=== PATIENT | male | born 1955 | race Caucasian/White ===

== ENCOUNTER 2022-08-20 09:52 | Outpatient (OUT) | payer MEDICARE, SELFPAY ==
[2022-08-20 11:05] LABS: Anion Gap 9.6; BUN Creatinine Ratio 11.5; Calcium 8.9 mg/dL (8.5-10.1); Chloride 102 mmol/L (98-107); Estimated GFR (African America >60 (>=60); Estimated GFR (Non-African Ame >60 (>=60); Glucose 197 mg/dL (74-106); Potassium 4.6 mmol/L (3.5-5.1); Sodium 137 mmol/L (136-145)
== END 2022-08-20 09:53 ==
LOC: LAB 10:02
PROVIDERS: PCP Internal Medicine; Visit Provider Internal Medicine Cardiovascular Disease
DX: I10 Essential (primary) hypertension (principal); E11.9 Type 2 diabetes mellitus without complications; I25.10 Atherosclerotic heart disease of native coronary artery without angina pectoris; R06.02 Shortness of breath; I25.5 Ischemic cardiomyopathy
CPT/HCPCS: 36415; 80048

== ENCOUNTER 2022-08-24 17:57 | Outpatient (RCR) | payer MEDICARE, SELFPAY | END 2022-09-18 23:59 | disposition home or self-care (01) | LOC: MM 17:57 | PROVIDERS: PCP Internal Medicine; Visit Provider Internal Medicine | DX: Z51.81 Encounter for therapeutic drug level monitoring (principal); Z79.01 Long term (current) use of anticoagulants; I48.91 Unspecified atrial fibrillation | CPT/HCPCS: 85610; G0463 ==

== ENCOUNTER 2022-09-23 15:23 | Outpatient (RCR) | payer MEDICARE, SELFPAY | END 2022-10-19 16:47 | disposition home or self-care (01) | LOC: MM 15:23 | PROVIDERS: PCP Internal Medicine; Visit Provider Internal Medicine | DX: Z51.81 Encounter for therapeutic drug level monitoring (principal); Z79.01 Long term (current) use of anticoagulants; I48.91 Unspecified atrial fibrillation | CPT/HCPCS: 85610; G0463 ==

== ENCOUNTER 2022-10-20 09:00 | Outpatient (RCR) | payer MEDICARE, SELFPAY | END 2022-11-19 17:19 | disposition home or self-care (01) | LOC: MM 09:00 | PROVIDERS: Visit Provider Internal Medicine | DX: Z51.81 Encounter for therapeutic drug level monitoring (principal); Z79.01 Long term (current) use of anticoagulants; I48.91 Unspecified atrial fibrillation ==

== ENCOUNTER 2022-11-20 08:27 | Outpatient (RCR) | payer MEDICARE, SELFPAY | END 2022-12-18 16:35 | disposition home or self-care (01) | LOC: MM 08:27 | PROVIDERS: Visit Provider Internal Medicine | DX: Z51.81 Encounter for therapeutic drug level monitoring (principal); Z79.01 Long term (current) use of anticoagulants; I48.91 Unspecified atrial fibrillation ==

== ENCOUNTER 2022-12-21 01:31 | Outpatient (RCR) | payer MEDICARE, SELFPAY | END 2023-01-19 17:13 | disposition home or self-care (01) | LOC: MM 01:31 | PROVIDERS: Visit Provider Internal Medicine | DX: Z51.81 Encounter for therapeutic drug level monitoring (principal); Z79.01 Long term (current) use of anticoagulants; I48.91 Unspecified atrial fibrillation | CPT/HCPCS: 85610; G0463 ==

== ENCOUNTER 2023-01-05 11:45 | Outpatient (OUT) | payer MEDICARE, SELFPAY ==
[2023-01-05 15:53] LABS: Estimated Average Glucose 283 mg/dL; Glycohemoglobin A1C 11.5 % (4.5-6.2)
== END 2023-01-05 11:46 | disposition home or self-care (01) ==
PROVIDERS: PCP Internal Medicine; Visit Provider Internal Medicine
DX: E11.65 Type 2 diabetes mellitus with hyperglycemia (principal)
CPT/HCPCS: 36415; 83036

== ENCOUNTER 2023-01-20 00:33 | Outpatient (RCR) | payer MEDICARE, SELFPAY | END 2023-02-18 16:35 | disposition home or self-care (01) | LOC: MM 00:33 | PROVIDERS: PCP Internal Medicine; Visit Provider Internal Medicine | DX: Z51.81 Encounter for therapeutic drug level monitoring (principal); Z79.01 Long term (current) use of anticoagulants; I48.91 Unspecified atrial fibrillation | CPT/HCPCS: 85610; G0463 ==

== ENCOUNTER 2023-02-19 09:02 | Outpatient (RCR) | payer MEDICARE, SELFPAY | END 2023-03-19 15:37 | disposition home or self-care (01) | LOC: MM 09:02 | PROVIDERS: PCP Internal Medicine; Visit Provider Internal Medicine | DX: Z51.81 Encounter for therapeutic drug level monitoring (principal); Z79.01 Long term (current) use of anticoagulants; I48.91 Unspecified atrial fibrillation | CPT/HCPCS: 85610; G0463 ==

== ENCOUNTER 2023-03-10 13:48 | Outpatient (OUT) | payer MEDICARE, SELFPAY ==
[2023-03-10 14:25] LABS: Anion Gap 11.6; BUN Creatinine Ratio 12.6; Calcium 9.2 mg/dL (8.5-10.1); Carbon Dioxide 27.8 mmol/L (21.0-32.0); Chloride 101 mmol/L (98-107); Estimated GFR (African America >60 (>=60); Estimated GFR (Non-African Ame >60 (>=60); Glucose 187 mg/dL (74-106); Potassium 4.4 mmol/L (3.5-5.1); Sodium 136 mmol/L (136-145)
== END 2023-03-10 13:49 | disposition home or self-care (01) ==
LOC: LAB 13:49
PROVIDERS: PCP Internal Medicine; Visit Provider Internal Medicine Cardiovascular Disease
DX: I25.10 Atherosclerotic heart disease of native coronary artery without angina pectoris (principal); I48.0 Paroxysmal atrial fibrillation; I10 Essential (primary) hypertension; I25.5 Ischemic cardiomyopathy
CPT/HCPCS: 36415; 80048; 83880

== ENCOUNTER 2023-03-22 00:45 | Outpatient (RCR) | payer MEDICARE, SELFPAY | END 2023-04-21 15:57 | disposition home or self-care (01) | LOC: MM 00:45 | PROVIDERS: PCP Internal Medicine; Visit Provider Internal Medicine | DX: Z51.81 Encounter for therapeutic drug level monitoring (principal); Z79.01 Long term (current) use of anticoagulants; I48.91 Unspecified atrial fibrillation | CPT/HCPCS: 85610; G0463 ==

== ENCOUNTER 2023-04-22 01:31 | Outpatient (RCR) | payer MEDICARE, SELFPAY | END 2023-05-20 17:10 | disposition home or self-care (01) | LOC: MM 01:31 | PROVIDERS: PCP Internal Medicine; Visit Provider Internal Medicine | DX: Z51.81 Encounter for therapeutic drug level monitoring (principal); Z79.01 Long term (current) use of anticoagulants; I48.91 Unspecified atrial fibrillation | CPT/HCPCS: 85610; G0463 ==

== ENCOUNTER 2023-05-21 01:05 | Outpatient (RCR) | payer MEDICARE, SELFPAY | END 2023-06-18 13:02 | disposition home or self-care (01) | LOC: MM 01:05 | PROVIDERS: PCP Internal Medicine; Visit Provider Internal Medicine | DX: Z51.81 Encounter for therapeutic drug level monitoring (principal); Z79.01 Long term (current) use of anticoagulants; I48.91 Unspecified atrial fibrillation | CPT/HCPCS: 85610; G0463 ==

== ENCOUNTER 2023-06-21 03:14 | Outpatient (RCR) | payer MEDICARE, SELFPAY | END 2023-07-20 17:48 | disposition home or self-care (01) | LOC: MM 03:14 | PROVIDERS: PCP Internal Medicine; Visit Provider Internal Medicine | DX: Z51.81 Encounter for therapeutic drug level monitoring (principal); Z79.01 Long term (current) use of anticoagulants | CPT/HCPCS: 85610; G0463 ==

== ENCOUNTER 2023-07-21 00:15 | Outpatient (RCR) | payer MEDICARE, SELFPAY | END 2023-08-20 11:10 | disposition home or self-care (01) | LOC: MM 00:15 | PROVIDERS: PCP Internal Medicine; Visit Provider Internal Medicine | DX: Z51.81 Encounter for therapeutic drug level monitoring (principal); Z79.01 Long term (current) use of anticoagulants; I48.91 Unspecified atrial fibrillation ==

== ENCOUNTER 2023-08-02 10:53 | Outpatient (OUT) | payer MEDICARE, SELFPAY ==
[2023-08-02 11:13] LABS: Basophils Absolute Auto 0.1 10^3/uL (0.0-0.1); Basophils Percent Auto 0.8 % (0.2-2.0); Eosinophils Absolute Auto 0.5 10^3/uL (0.0-0.7); Eosinophils Percent Auto 6.2 % (0.9-7.0); Hematocrit 37.2 % (42.0-54.0); Hemoglobin 11.3 g/dL (14.0-18.0); Immature Granulocytes Abs Auto 0.02 10^3/uL (0.00-0.03); Immature Granulocytes Pct Auto 0.2 % (0.0-0.5); Lymphocytes Percent Auto 36.4 % (20.5-60.0); Mean Corpuscular HGB Conc 30.4 g/dL (29.9-35.2); Mean Corpuscular Hemoglobin 24.5 pg (25.9-34.0); Mean Corpuscular Volume 80.5 fL (80.0-94.0); Mean Platelet Volume 11.3 fL (9.5-13.5); Monocytes Absolute Auto 0.9 10^3/uL (0.3-0.8); Monocytes Percent Auto 10.3 % (1.7-12.0); Neutrophils Absolute Auto 3.8 10^3/uL (1.4-6.5); Neutrophils Percent Auto 46.1 % (43.0-75.0); Platelet Count 245 10^3/uL (150-450); Red Blood Count 4.62 10^6/uL (4.70-6.10); Red Cell Distribution Width 18.5 % (11.0-15.0); White Blood Count 8.2 10^3/uL (4.0-11.0)
[2023-08-02 12:15] LABS: Alanine Aminotransferase 53 U/L (16-63); Albumin Globulin Ratio 0.9; Albumin Level 3.4 g/dL (3.4-5.0); Alkaline Phosphatase 99 U/L (46-116); Anion Gap 11.2; Aspartate Amino Transferase 26 U/L (15-37); BUN Creatinine Ratio 18.5; Bilirubin Total 0.5 mg/dL (0.2-1.0); Chloride 104 mmol/L (98-107); Chol HDL Ratio 2.9; Cholesterol 85 mg/dL (<=200); Estimated GFR (African America >60 (>=60); Estimated GFR (Non-African Ame >60 (>=60); Glucose 199 mg/dL (74-106); HDL Cholesterol 29 mg/dL (40-60); Potassium 4.2 mmol/L (3.5-5.1); Sodium 138 mmol/L (136-145); Total Protein 7.4 g/dL (6.4-8.2); Triglycerides 126 mg/dL (<=150); VLDL CHOLESTEROL 25.2 mg/dL
[2023-08-02 12:29] LABS: Microalbumin Urine Random 15.5 mg/dL (<=30.0)
[2023-08-02 12:58] LABS: Prostate Specific Antigen Scrn 0.49 ng/mL (<=4.00)
[2023-08-02 15:45] LABS: Estimated Average Glucose 258 mg/dL; Glycohemoglobin A1C 10.6 % (4.5-6.2)
== END 2023-08-02 10:54 | disposition home or self-care (01) ==
LOC: LAB 10:54
PROVIDERS: PCP Internal Medicine; Visit Provider Internal Medicine
DX: E78.00 Pure hypercholesterolemia, unspecified (principal); I25.10 Atherosclerotic heart disease of native coronary artery without angina pectoris; I10 Essential (primary) hypertension; E11.65 Type 2 diabetes mellitus with hyperglycemia; Z12.5 Encounter for screening for malignant neoplasm of prostate; Z79.4 Long term (current) use of insulin
CPT/HCPCS: 36415; 80053; 80061; 82043; 83036; 85025; G0103

== ENCOUNTER 2023-08-23 00:15 | Outpatient (RCR) | payer MEDICARE, SELFPAY | END 2023-09-17 10:41 | disposition home or self-care (01) | LOC: MM 00:15 | PROVIDERS: PCP Internal Medicine; Visit Provider Internal Medicine | DX: Z51.81 Encounter for therapeutic drug level monitoring (principal); Z79.01 Long term (current) use of anticoagulants | CPT/HCPCS: 85610; G0463 ==

== ENCOUNTER 2023-09-03 13:25 | Outpatient (OUT) | payer OTHER, SELFPAY ==
[2023-09-06 14:08] LABS: Levetiracetam (Keppra), S 13.1 ug/mL (10.0-40.0)
== END 2023-09-03 13:26 | disposition home or self-care (01) ==
PROVIDERS: PCP Internal Medicine
DX: G40.909 Epilepsy, unspecified, not intractable, without status epilepticus (principal)
CPT/HCPCS: 36415; 80177

== ENCOUNTER 2023-09-15 09:23 | Outpatient (OUT) | payer OTHER, SELFPAY ==
[2023-09-15 12:13] LABS: Anion Gap 13.2; Calcium 8.3 mg/dL (8.5-10.1); Carbon Dioxide 25.2 mmol/L (21.0-32.0); Chloride 104 mmol/L (98-107); Estimated GFR (African America >60 (>=60); Estimated GFR (Non-African Ame >60 (>=60); Glucose 240 mg/dL (74-106); Potassium 4.4 mmol/L (3.5-5.1); Sodium 138 mmol/L (136-145)
== END 2023-09-15 09:24 | disposition home or self-care (01) ==
LOC: LAB 09:24
PROVIDERS: PCP Internal Medicine; Visit Provider Nurse Practitioner
DX: I25.5 Ischemic cardiomyopathy (principal)
CPT/HCPCS: 36415; 80048

== ENCOUNTER 2023-09-20 00:36 | Outpatient (RCR) | payer MEDICARE, SELFPAY | END 2023-10-20 09:37 | disposition home or self-care (01) | LOC: MM 00:36 | PROVIDERS: PCP Internal Medicine; Visit Provider Internal Medicine | DX: Z51.81 Encounter for therapeutic drug level monitoring (principal); Z79.01 Long term (current) use of anticoagulants; I48.91 Unspecified atrial fibrillation | CPT/HCPCS: 85610; G0463 ==

== ENCOUNTER 2023-10-08 09:05 | Outpatient (OUT) | payer MEDICARE, SELFPAY ==
--- NOTE | 2023-10-08 09:22 | XR_ITS ---
The [address] [address] Patient Name: LESLEY QUINTERO MRN: [id number] date: 1955 Sex: M Assigned Patient Location: LAB Current Patient Location: LAB Accession/Order Number: [id number] Exam Date: 10/08/2023 09:25 Report Date: 10/08/2023 13:53 At the request of: CHRIS HUMMEL Procedure: XR chest 2V PROCEDURE: XR chest 2V DATE: 10/08/2023 8:25 AM CDT COMPARISONS: 11/14/2021 CLINICAL INDICATION: 68 years Male Paroxysmal Atrial Fibrillation I48.0 FINDINGS: The heart and mediastinum are stable. Poststernotomy changes are again identified. Electronic cardiac device appears to be in good position in this projection. There is mild to moderate slightly coarse increased interstitial markings throughout all lung byrne better seen than on previous exam. Some of this could represent some interstitial fluid. Some of it likely represents chronic lung changes also seen previously. Some of this could represent some increasing atelectasis as the lungs are slightly hypoaerated today. Diffuse inflammatory infiltrates are considered less likely. There is no evidence of pleural effusion or pneumothorax. XR/XR chest 2V IMPRESSION: Chest is similar to previous exam. The diffuse slightly coarse increased interstitial markings are somewhat more prominent today as described above. Possible etiologies are noted above. Electronically authenticated by: JANNA BEYER Date: 10/08/2023 13:53
--- OUTSIDE RECORDS SUMMARY | 2023-10-08 09:28 | XMS_ITS | CCD ---
Author Organization [facility] Care Team Providers Care Overweaver Name Role Phone Lee Segovia Unavailable Unavailable Unavailable DO Lee Segovia Primary Care Provider DO Lesley Cooper Attending Provider DO Lee Segovia Primary Care Provider [phone] DO Lesley Cooper Attending Provider DO Franck Posey Attending Provider [phone] Lee Segovia Unavailable DR LEE SEGOVIA Primary Care Unavailable BALL, DR HOWARD Consulting Unavailable BALL, DR HOWARD Admitting Unavailable BALL, DR HOWARD Attending Unavailable BALL, DR HOWARD Primary Care Unavailable FAWWAMayra, SHAIKH Shi Attending Unavailable FAWWAD, ZARCO H Admitting Unavailable BALL, DR HOWARD Primary Care Unavailable BALL, DR HOWARD Consulting Unavailable BALL, DR HOWARD Attending Unavailable BALL, DR HOWARD Admitting Unavailable ZIEBER, DR GINO Lopez Consulting Unavailable SOFÍA, YANA Consulting Unavailable SOFÍAYANA Attending Unavailable BALL, DR HOWARD Primary Care Unavailable SOFÍA, YANA Admitting Unavailable BALL, DR HOWARD Primary Care Unavailable BALL, DR HOWARD Consulting Unavailable BALL, DR HOWARD Admitting Unavailable BALL, DR HOWARD Attending Unavailable BALL, DR HOWARD Primary Care Unavailable HAY ., DR HUDSON Consulting Unavailable HAY ., DR HUDSON Attending Unavailable HAY ., DR HUDSON Admitting Unavailable BENEDICT, DR CHRISTIAN Consulting Unavailable BENEDICT, DR CHRISTIAN Attending Unavailable BALL, DR HOWARD Primary Care Unavailable BENEDICT, DR CHRISTIAN Admitting Unavailable FAWWAD, ZARCO H Attending Unavailable BALL, DR HOWARD Primary Care Unavailable FAWMARVD, ZARCO H Admitting Unavailable FAWWAD, ZARCO H Admitting Unavailable BALL, DR HOWARD Primary Care Unavailable FAWWAD, ZARCO H Attending Unavailable FAWWAD, ZARCO H Admitting Unavailable BALL, DR HOWARD Primary Care Unavailable FAWWAD, ZARCO H Attending Unavailable FAWWAD, ZARCO H Admitting Unavailable BALL, DR HOWARD Primary Care Unavailable FAWWAD, ZARCO H Attending Unavailable FAWWAD, ZARCO H Admitting Unavailable BALL, DR HOWARD Primary Care Unavailable FAWWAD, ZARCO H Attending Unavailable FAWWAD, ZARCO H Admitting Unavailable FAWWAD, ZARCO H Attending Unavailable BALL, DR HOWARD Primary Care Unavailable FAWWAD, ZARCO H Admitting Unavailable BALL, DR HOWARD Primary Care Unavailable FAWWAD, ZARCO H Attending Unavailable FAWWAD, ZARCO H Admitting Unavailable BALL, DR HOWARD Primary Care Unavailable FAWWAD, ZARCO H Attending Unavailable BALL, DR HOWARD Primary Care Unavailable BALL, DR HOWARD Admitting Unavailable BALL, DR HOWARD Consulting Unavailable BALL, DR HOWARD Attending Unavailable BALL, DR HOWARD Referring Unavailable FAWWAD, ZARCO H Attending Unavailable BALL, DR HOWARD Primary Care Unavailable FAWWAD, ZARCO H Admitting Unavailable BALL, DR HOWARD Consulting Unavailable BALL, DR HOWARD Admitting Unavailable BALL, DR HOWARD Primary Care Unavailable BALL, DR HOWARD Attending Unavailable Ball, DO Howard Primary Care Provider DO Franck Posey Attending Provider DO Lesley Cooper Attending Provider [phone] Delroy Mcleod Unavailable JESUS POSEY Attending Unavailable Juliette, Dr. Lee Jones Primary Care Rigo Segovia, DO Howard Primary Care Provider DO Franck Posey Attending Provider Juliette, DO Howard Primary Care Provider DO Lesley Cooper Attending Provider [phone] Marcus, Ms. Ivania Calabrese Attending Rigo Velazquez, Ms. Ivania Calabrese Referring Rigo Segovia, Dr. Lee Jones Primary Care Carmen Sharma Attending Poppy Velazquez, Ms. Ivania Calabrese Referring Rigo Segovia, Dr. Lee Jones Primary Care Rigo Segovia, Dr. Lee Jones Primary Care Rigo Posey, Jesus Attending Unavailable Juliette, Dr. Lee Jones Primary Care Rigo Segovia, Dr. Lee Jones Primary Care Rigo Posey, Jesus Attending Unavailable Kalpesh, Jesus Referring Unavailable Juliette, Dr. Lee Jones Primary [facility] Rigo Velazquez, Ms. Ivania Calabrese Attending Rigo Velazquez, MsJohn Paul Calabrese Referring Rigo Segovia, Dr. Lee Jones Primary [facility] Rigo Segovia DO, Lee Jones Primary Care Provider Lee Segovia DO Unavailable [phone] Lee Segovia [facility] Care Unavailable Kalpesh, Franck Lr Admitting Unavailable Kalpesh, Franck Lr Attending Unavailable Lee Segovia [facility] Care Unavailable Lyster, Lesley Admitting Unavailable Lyster, Lesley Attending Unavailable Lyster, Lesley Admitting Unavailable Lyster, Lesley Attending Unavailable Lee Segovia [facility] Care Unavailable Lee Segovia [facility] Care Unavailable Kalpesh, Franck Lr Admitting Unavailable Kalpesh, Franck Lr Attending Unavailable Lee Segovia [facility] Care Unavailable Kalpesh, Franck Lr Admitting Unavailable Kalpesh, Franck Lr Attending Unavailable Kalpesh, Franck Lr Admitting Unavailable Kalpesh, Franck Lr Attending Unavailable Lee Segovia [facility] Unavailable DO Lee Segovia Primary Care Provider [phone] DO Franck Posey Attending Provider [phone] Marcus RODRIGUEZ-Ivania MCCRAY Unavailable Lee Segovia DO Primary Care Provider Carmen Ha MD Unavailable Lee Segovia DO Primary Care Provider YANA ALVAREZ Attending Unavailable JESUS POSEY Referring Unavailable LEE SEGOVIA Primary Care Unavailable IVANIA VELAZQUEZ Attending Unavailable JESUS POSEY Referring Unavailable LEE SEGOVIA Primary Care Unavailable KALPESHJESUS PANDEY Attending Unavailable IVANIA VELAZQUEZ Referring Unavailable LEE SEGOVIA Primary Care Unavailable IVANIA VELAZQUEZ Attending Unavailable LEE SEGOVIA Primary Care Unavailable CARMEN HA Attending Unavailable LEE SEGOVIA Primary Care Unavailable JESUS POSEY Attending Unavailable LEE SEGOVIA Primary Care Unavailable HOLLI VAZQUEZ Referring Unavailable LEE SEGOVIA Primary Care Unavailable CARMEN HA Referring Unavailable LEE SEGOVIA Primary Care Unavailable CARMEN HA Admitting Unavailable CARMEN HA Attending Unavailable LEE SEGOVIA Primary Care Unavailable HOLLI VAZQUEZ Referring Unavailable LEE SEGOVIA Primary Care Unavailable CARMEN HA Referring Unavailable LEE SEGOVIA Primary Care Unavailable Allergies Allergy Classification Reported Allergen(s) Allergy Type Date of Onset Reaction(s) Facility Angiotensin Converting Enzyme (JENNY) Inhibitors (1 source) Angiotensin Converting Enzyme (Jenny) Inhibitors; Translations: [JENNY INHIBITORS] Drug Allergy 3 [facility] Repository (20 sources) Angiotensin Converting Enzyme (Jenny) Inhibitors; Translations: [JENNY Inhibitors] Allergy to drug (finding) 3 Other [facility] 3 Repository (3 sources) patient allergy list reviewed by nurse or physicia Propensity to adverse reactions 5 Comment:Done [employer] Other (8 sources) Angiotensin-con verting enzyme inhibitor agent Drug Allergy 3 Other [facility] Medications Current Medications Medication Drug Class(es) Dates Sig (Normalized) Sig (Original) acetaminophen 325 mg oral tablet (1 source) Start: 01-07-2023 take 2 tablets by mouth every four hours for pain acetaminophen (Tylenol) 325 mg tablet Indications: 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 30 tablet 0 01/07/2023 Active amiodarone hydrochloride 200 mg oral tablet (20 sources) Antiarrhythmic Start: 12-14-2017 End: 06-20-2024 take 1 tablet by mouth once daily amiodarone (Pacerone) 200 mg tablet Indications: Paroxysmal atrial fibrillation (Multi) Take 1 tablet (200 mg) by mouth once daily. 90 tablet 1 06/21/2023 06/20/2024 Active Amiodarone HCl N ot-Taking Aspir-81 81 MG (20 sources) take 1 tablet by ramez th once daily Aspir-81 81 MG 1 tablet Orally Once a day Active take 1 tablet by mouth once delfina y take 1 tablet by mouth once delfina y Aspir-81 81 MG 1 tablet Orally Once a day for 30 day(s) Active aspirin 81 mg delayed release oral tablet (20 sources) Platelet Aggregation Inhibitor, Nonsteroidal Anti-inflammatory Drug Start: 02-18-2017 End: 11-13-2022 take 81 mg by mouth once daily at bedtime Aspirin Active 81 MG PO Daily at bedtime November 13, 2022 12:00am Aspirin 81 MG TA BS TAKE 1 TABLET DAILY. Quantity: 0 Refills: 0 Ordered: 16-Apr-2021 DO Active atorvastatin 80 mg oral tablet (20 sources) HMG-CoA Reductase Inhibitor Start: 12-31-2020 End: 06-20-2024 take 1 tablet by mouth once daily at bedtime atorvastatin (Lipitor) 80 mg tablet Indications: Mixed hyperlipidemia Take 1 tablet (80 mg) by mouth once daily at bedtime. 90 tablet 3 06/21/2023 06/20/2024 Active Start: 02-19-2017 End: 07-01-2017 take 40 mg by mouth once daily in the evening Atorvastatin Discontinued 40 MG PO Every evening February 19, 2017 1:00am July 01, 2017 2:36pm cefuroxime 500 mg oral tablet (14 sources) Cephalosporin Antibacterial Start: 07-30-2018 take 1 tablet by mouth every twelve hours Dexcom (2 sources) Start: 05-01-2023 Dexcom Active 0 .Route .MEDSUPPLY May 01, 2023 1:00am Use to test home BS Tranacutaneous 4-6x daily Start: 05-01-2023 Dexcom Active 0 .ROUTE .MEDSUPPLY May 01, 2023 12:00am Use to test home BS Tranacutaneous 4-6x daily Dexcom 7 (6 sources) Start: 02-21-2023 Dexcom 7 Use t o test home BS Tranacutaneous 4-6x daily for 30 days Feb, Active doxycycline hyclate 100 mg oral capsule (17 sources) Tetracycline-clas s Drug Start: 09-17-2022 take 1 capsule by mouth every twelve hours Doxycycline Hyclate 100 MG 1 capsule Orally Twice a day for 10 days Mar, Active famotidine 20 mg oral tablet (20 sources) Histamine-2 Receptor Antagonist Start: 08-23-2019 take 20 mg by mouth twice daily Famotidine Active 20 MG PO Twice daily August 23, 2019 12:00am take 1 tablet by mouth once delfina y Famotidine 20 MG Oral Tablet TAKE 1 TABLET EVERY 12 HOURS DAILY. Quantity: 0 Refills: 0 Ordered: 14-Jul-2022 DO Active FreeStyle Sarah 2 Davis - (8 sources) Start: 2023 FreeStyle Libr e 2 Davis - Use to test home BS 4-6x daily transcutaneous 4-6x daily for 365 days Jan, Active FreeStyle Sarah 2 Sensor - (8 sources) Start: 2023 FreeStyle Libr e 2 Sensor - Use to test home BS 4-6x daily transcutaneous 4-6x daily for 30 days Jan, Active 3 ml insulin detemir 100 unt/ml pen injector (20 sources) Insulin Analog Start: 07-30-2022 Levemir FlexPe n 100 unit/mL (3 mL) pen Inject 14 Units under the skin once daily at bedtime. 07/31/2022 Active Start: 07-30-2022 Levemir FlexPe n 100 UNIT/ML 18 units Subcutaneous twice a day July, Active Start: 07-30-2022 Levemir FlexPe n 100 UNIT/ML 14 units Subcutaneous twice a day for 90 days July, Active Start: 07-30-2022 inject 10 [IU] by ya bcutaneous injection twice daily Levemir FlexPen 100 UNIT/ML 10 units Subcutaneous twice a day July, Active Start: 07-30-2022 Levemir FlexPe n 100 UNIT/ML 10 u Subcutaneous q HS July, Active Levemir FlexPen 100 UNIT/ML Subcutaneous Solution Pen-injector 14 units at bedtime Quantity: 0 Refills: 0 Ordered: 30-Nov-2022 DO Active Insulin Detemir U-100 (Levem ir Flexpen) 100 unit/mL (3 mL) insulin pen (6 sources) Start: 05-01-2023 Insulin Detemi r U-100 (Levemir Flexpen) 100 unit/mL (3 mL) insulin pen Active 14 UNIT SUBCUT Twice daily May 01, 2023 11:50am Start: 05-01-2023 Insulin Detemi r U-100 (Levemir Flexpen) 100 unit/mL (3 mL) insulin pen Active 14 UNIT SUBCUT Twice daily May 01, 2023 10:50am Start: 11-13-2022 End: 05-01-2023 Insulin Detemir U-100 (Levem ir Flexpen) 100 unit/mL (3 mL) insulin pen Discontinued 14 UNIT SUBCUT Daily at bedtime November 13, 2022 12:00am May 01, 2023 11:56am Start: 11-13-2022 End: 05-01-2023 Insulin Detemir U-100 (Levem ir Flexpen) 100 unit/mL (3 mL) insulin pen Discontinued 14 UNIT SUBCUT Daily at bedtime November 12, 2022 11:00pm May 01, 2023 10:56am Start: 11-13-2022 Insulin Detemi r U-100 (Levemir Flexpen) 100 unit/mL (3 mL) insulin pen Active 14 UNIT SUBCUT Daily at bedtime November 13, 2022 12:00am 3 ml insulin lispro 100 unt/ml pen injector (9 sources) Insulin Analog Start: 01-07-2023 inject 100 [IU] by subcutaneous injection three times daily before mealtime HumaLOG KwikPen 100 UNIT/ML 2-8 units Subcutaneous tid before meals Dec, Active Start: 01-07-2023 HumaLOG KwikPe n 100 UNIT/ML per sliding scale Subcutaneous with meals Dec, Active Insulin Lispro (Humalog Kwikpen Insulin) 100 unit/mL insulin pen (2 sources) Start: 05-01-2023 inject 100 [IU] by subcutaneous injection three times daily before mealtime Insulin Lispro (Humalog Kwikpen Insulin) 100 unit/mL insulin pen Active SUBCUT May 01, 2023 1:00am FreeTextSi-8 units Subcutaneous tid before meals; Note: Source Status: Continue; Provider: Juliette Rowell Start: 05-01-2023 inject 100 [IU] by s ubcutaneous injection three times daily before mealtime Insulin Lispro (Humalog Kwikpen Insulin) 100 unit/mL insulin pen Active SUBCUT May 01, 2023 12:00am FreeTextSi-8 units Subcutaneous tid before meals; Note: Source Status: Continue; Provider: Juliette Rowell 3 ml insulin lispro 50 unt/ml / insulin lispro protamine, human 50 unt/ml pen injector (7 sources) Insulin Analog insulin lispro protamin-lispro (HumaLOG Mix 50-50 KwikPen) 100 unit/mL (50-50) injection Inject under the skin 2 times a day with meals. Take as directed per insulin instructions. Active levETIRAcetam 750 mg oral tablet (20 sources) Start: take 1 tablet by mouth twice daily Levetiracetam Active 750 TAB PO Twice daily August 19, 2017 12:00am Start: 02-19-2017 End: 08-19-2017 take 750 mg by mouth twice daily Levetiracetam Discontinued 750 MG PO Twice daily February 19, 2017 1:00am August 19, 2017 11:56am Start: 02-18-2017 End: 02-19-2017 take 1 tablet by mouth twice daily Levetiracetam (Keppra) 500 mg Tablet Discontinued 500 MG PO Twice daily February 18, 2017 1:00am February 19, 2017 12:14pm take 1 tablet by ramez th twice daily levETIRAcetam XR (Keppra XR) 750 mg tablet extended release 24 hr 24 hr tablet Take 1 tablet (750 mg) by mouth 2 times a day. Active take 1 tablet by ramez th every twelve hours Keppra 750 MG 1 tablet Orally every 12 hrs Active losartan potassium 25 mg oral tablet (20 sources) Angiotensin 2 Receptor Pato Start: 01-12-2023 End: 01-12-2024 take 1 tablet by mouth once daily losartan (Cozaar) 25 mg tablet Indications: Biventricular ICD (implantable cardioverter-defibrillator) in place , Ischemic cardiomyopathy Take 1 tablet (25 mg) by mouth once daily. 30 tablet 11 01/12/2023 01/12/2024 Active Start: 07-14-2022 End: 11-19-2022 take 25 mg by mouth once daily in the morning Losartan Discontinued 25 MG PO Every morning November 13, 2022 12:00am November 19, 2022 2:49pm metFORMIN hydrochloride 850 mg oral tablet (20 sources) Biguanide Start: 02-20-2020 take 1 tablet by mouth twice daily at mealtime metFORMIN (Glucophage) 850 mg tablet Take 1 tablet (850 mg) by mouth 2 times a day with meals. 02/20/2020 Active Start: 12-14-2017 End: 11-13-2022 take 850 mg by mouth twice daily at mealtime Metformin Discontinued 850 MG PO Twice daily December 14, 2017 12:00am November 13, 2022 8:35am With Meals Start: 02-18-2017 End: 12-14-2017 take 500 mg by mouth twice daily Metformin Discontinue d 500 MG PO Twice daily February 18, 2017 1:00am December 14, 2017 3:10pm take 1 tablet by ramez th every twelve hours metFORMIN HCl - 1000 MG Oral Tablet TAKE 1 TABLET EVERY 12 HOURS. Quantity: 0 Refills: 0 Ordered: 24-Sep-2017 DO Active methylPREDNISolone 4 mg oral tablet (20 sources) Corticosteroid Start: 09-30-2022 Medrol 4 MG as directed Orally Sep, Active 24 hr metoprolol succinate 50 mg extended release oral tablet (20 sources) beta-Adrenergic Pato Start: 06-21-2023 End: 06-20-2024 take 1 tablet by mouth once daily metoprolol succinate XL (Toprol-XL) 50 mg 24 hr tablet Indications: Paroxysmal atrial fibrillation (Multi) , Primary hypertension , Ischemic cardiomyopathy Take 1 tablet (50 mg) by mouth once daily. 90 tablet 3 06/21/2023 06/20/2024 Active Start: 05-01-2023 take 50 mg by mouth twice delfina y Metoprolol Succinate Active 50 MG PO Twice daily May 01, 2023 11:52am Start: 12-14-2017 End: 12-31-2020 take 12.5 mg by mouth once daily Metoprolol Succinate Discontinued 12.5 MG PO Daily December 14, 2017 12:00am December 31, 2020 7:38am Start: 09-16-2017 End: 05-01-2023 take 50 mg by mouth once daily in the morning Metoprolol Succinate Discontinued 50 MG PO Every morning November 13, 2022 8:37am May 01, 2023 11:56am Start: 02-18-2017 End: 12-14-2017 take 12.5 mg by mouth every twelve hours Metoprolol Tartrate Discontinued 12.5 MG PO Q12H February 18, 2017 1:00am December 14, 2017 3:06pm take 1 tablet by ramez th every twelve hours Metoprolol Succinate ER 50 MG 1 tablet Orally Twice a day Active Toprol XL Mey-Mick vazquez take 1 tablet by ramez th twice daily Metoprolol Tartrate 50 MG Oral Tablet TAKE 1 TABLET TWICE DAILY. Quantity: 0 Refills: 0 Ordered: 24-Sep-2017 DO Active mirtazapine 30 mg oral tablet (20 sources) Start: 11-13-2022 End: 05-04-2023 take 1 tablet by mouth once daily at bedtime mirtazapine (Remeron) 30 mg tablet Take 1 tablet (30 mg) by mouth once daily at bedtime. 12/13/2022 Active Nitroglycerin (20 sources) Nitrate Vasodilator Start: 07-08-2023 Nitroglyce rin Active 0 .ROUTE .COMPLEX 100 July 08, 2023 2:37pm DISSOLVE 1 TABLET UNDER THE TONGUE NEEDED FOR CHEST PAIN Start: 09-01-2017 End: 09-03-2017 apply 0.2 mg topically every hour Nitroglycerin Discon tinued 0.2 mg/hr TOPICAL Daily September 01, 2017 12:00am September 03, 2017 11:57am Start: 09-01-2017 End: 12-14-2017 apply 0.4 mg transdermal route every hour, then apply 1 dose transdermal route every twenty-four hours Nitroglycerin (Nitro-Dur) 0.4 mg/hr patch 24 hour Discontinued 1 PATCH TRANSDERML Daily September 01, 2017 12:00am December 14, 2017 3:12pm allow nitrate-free interval of approx. 10-12 hrs per 24-hour period Start: 02-18-2017 End: 07-08-2023 nitroglycerin (Nitrostat) 0. [address] 1 tablet (0.4 mg) under the tongue every 5 minutes if needed for chest pain. 11/10/2022 Active Nitroglycerin 0. 4 MG 1 tablet Sublingual PRN chest pain for 90 days Active Nitroglycerin 0. 4 MG Sublingual Tablet Sublingual Quantity: 0 Refills: 0 Ordered: 30-Nov-2022 DO Active ofloxacin 3 mg/ml ophthalmic solution (14 sources) Quinolone Antimicrobial Start: 07-30-2018 Pen Rudyard (2 sources) Start: 05-01-2023 Pen Rudyard Ac tive 0 .Route .MEDSUPPLY May 01, 2023 1:00am Use to inject insulin qd SC Start: 05-01-2023 Pen Rudyard Ac tive 0 .ROUTE .MEDSUPPLY May 01, 2023 12:00am Use to inject insulin qd SC Ranitidine & Diet Manage Pro d 150 MG (14 sources) Ranitidine & t Manage Prod 150 MG as directed Orally Not-Taking rOPINIRole 0.5 mg oral tablet (20 sources) Nonergot Dopamine Agonist Start: 08-23-2019 take 1 tablet by mouth once daily at bedtime rOPINIRole (Requip) 0.5 mg tablet Take 1 tablet (0.5 mg) by mouth once daily at bedtime. 12/21/2022 Active Start: 08-23-2019 take 0.8 mg by mouth once daily at bedtime Ropinirole Active 0.8 MG PO Daily at bedtime August 23, 2019 12:00am Start: 02-18-2017 End: 06-30-2017 take 0.5 mg by mouth at bedtime Ropinirole Discontinue d 0.5 MG PO Bedtime February 18, 2017 1:00am June 30, 2017 11:59pm sacubitril 24 mg / valsartan 26 mg oral tablet (18 sources) Angiotensin 2 Receptor Pato Start: 11-19-2022 End: 01-12-2023 take 1 tablet by mouth twice daily Sacubitril-Valsartan (Entresto) 24-26 mg tablet Active 1 TAB PO Twice daily 60 November 19, 2022 12:00am spironolactone 25 mg oral tablet (20 sources) Aldosterone Antagonist Start: 07-14-2022 End: 05-21-2023 take 25 mg by mouth once daily in the morning Spironolactone Active 25 MG PO Every morning November 13, 2022 12:00am Start: 12-31-2020 End: 11-13-2022 take 12.5 mg by mouth once daily Spironolactone Discontinued 12.5 MG PO Daily December 31, 2020 12:00am November 13, 2022 8:36am Suprep Bowel Prep Kit 17.5-3 .13-1.6 GM/180ML (14 sources) Start: 04-25-2020 Start: 04-25-2020 Suprep Bowel P rep Kit 17.5-3.13-1.6 GM/180ML 177 ML BOTTLE AT 4 PM AND ONE BOTTLE AT 11 PM DAY PRIOR TO PROCEDURE Orally Twice a day for 1 day(s) Apr, Not-Taking warfarin sodium 2 mg oral tablet (20 sources) Vitamin K Antagonist Start: 01-07-2023 warfarin (Coumadin) 2 mg tablet Indications: Paroxysmal atrial fibrillation (Multi) Take 1 tablet (2 mg) by mouth see administration instructions. As directed by the [facility] coumadin clinic. Ok to resume at previous dose on 01/09/23 01/07/2023 Active Start: 12-31-2020 End: 05-01-2023 Warfarin Discontinued 2 MG P O As Directed May 01, 2023 11:55am May 01, 2023 11:57am Take 3 tablets ( 3MG ) today and tomorrow. (Wednesday and Wednesday ) resume taking 2 tablet ( 2 mg ) then follow the Coumadin clinic at [place] instructions to adjust dosing based on the blood test. Start: 06-13-2018 End: 12-31-2020 take 2 mg by mouth once daily Warfarin Discontinued 2 MG PO Daily June 13, 2018 12:00am December 31, 2020 7:38am Start: 06-13-2018 End: 06-16-2018 take 1 g by mouth every week Warfarin Discontinued 1 G M PO every week June 13, 2018 12:00am June 16, 2018 9:24pm Warfarin Sodium 2 mg TAKE 3 TABLETS DAILY Active Completed/Discontinued Medications Medication Drug Class(es) Dates Sig (Normalized) Sig (Original) citalopram 40 mg oral tablet (9 sources) Serotonin Reuptake Inhibitor Start: 02-18-2017 End: 08-23-2019 take 40 mg by mouth at bedtime Citalopram Discontinued 40 MG PO Bedtime February 18, 2017 1:00am August 23, 2019 1:05pm CeleXA 40 MG Ora l Tablet Quantity: 0 Refills: 0 Ordered: 28-Sep-2017 DO Active clindamycin 300 mg oral capsule (7 sources) Lincosamide Antibacterial Start: 06-18-2018 End: 06-25-2018 take 300 mg by mouth every twelve hours Clindamycin Hcl Discontinued 300 MG PO Q12H 14 7 June 18, 2018 12:00am June 25, 2018 12:02am clopidogrel 75 mg oral tablet (20 sources) P2Y12 Platelet Inhibitor Start: 12-31-2020 End: 11-13-2022 take 75 mg by mouth once daily Clopidogrel Discontinued 75 MG PO Daily December 31, 2020 12:00am November 13, 2022 8:38am Start: 12-14-2017 End: 08-23-2019 take 75 mg by mouth once daily Clopidogrel Discontinue d 75 MG PO Daily December 14, 2017 12:00am August 23, 2019 1:05pm Start: 06-30-2017 End: 09-03-2017 take 1 tablet by mouth once daily Clopidogrel (Plavix) 75 mg Tablet Discontinued 75 MG PO Daily June 30, 2017 12:00am September 03, 2017 12:27pm diazePAM 5 mg oral tablet (7 sources) Benzodiazepine Start: 02-18-2017 End: 06-30-2017 take 5 mg by mouth at bedtime Diazepam Discontinued 5 MG PO Bedtime February 18, 2017 1:00am June 30, 2017 11:57pm 0.5 ml dulaglutide 3 mg/ml auto-injector (20 sources) GLP-1 Receptor Agonist Start: 11-13-2022 End: 05-01-2023 Dulaglutide (Trulicity) 1.5 mg/0.5 mL pen injector Discontinued 1.5 MG SUBCUT every week November 13, 2022 12:00am May 01, 2023 11:56am wednesday inject 3 mg by subcu taneous injection every week Trulicity 3 MG/0.5ML 3mg Subcutaneous weekly for 28 days Active empagliflozin 10 mg oral tablet (7 sources) Sodium-Glucose Cotransporter 2 Inhibitor Start: 06-26-2020 End: 11-13-2022 take 1 tablet by mouth once daily Empagliflozin (Jardiance) 10 mg Tablet Discontinued 10 MG PO Daily June 26, 2020 12:00am November 13, 2022 8:38am 1 ml enoxaparin sodium 100 mg/ml prefilled syringe (3 sources) Low Molecular Weight Heparin Start: 11-30-2022 Enoxaparin Sodium 100 MG/ML Injection Solution Prefilled Syringe Hold Coumadin 4 days before procedure. Day 3 before procedure take one injection in am and one injection pm, day 2 before procedure do one injection am and one injection pm, Day before procedure do am injection only. None day of procedure. Quantity: 5 Refills: 0 Ordered: 30-Nov-2022 Carmen Ha MD Start : 30-Nov-2022 Active escitalopram 5 mg oral tablet (20 sources) Serotonin Reuptake Inhibitor Start: 09-28-2022 End: 05-01-2023 take 5 mg by mouth once daily in the morning Escitalopram Oxalate Discontinued 5 MG PO Every morning November 13, 2022 12:00am May 01, 2023 11:56am gabapentin 100 mg oral capsule (7 sources) Anti-epileptic Agent Start: 02-18-2017 End: 07-01-2017 take 100 mg by mouth three times daily Gabapentin Discontinued 100 MG PO Three times daily February 18, 2017 1:00am July 01, 2017 12:00am glimepiride 1 mg oral tablet (20 sources) Sulfonylurea Start: 12-14-2017 End: 06-26-2020 take 2 mg by mouth once daily Glimepiride Discontinued 2 MG PO Daily December 14, 2017 12:00am June 26, 2020 10:16am Glimepiride Not- Taking take 1 tablet by mouth once delfina y Glimepiride 1 MG Oral Tablet TAKE 1 TABLET DAILY. Quantity: 0 Refills: 0 Ordered: 21-Oct-2017 DO Active lisinopril 2.5 mg oral tablet (20 sources) Angiotensin Converting Enzyme Inhibitor Start: 12-31-2020 End: 11-13-2022 take 2.5 mg by mouth once daily Lisinopril Discontinued 2.5 MG PO Daily December 31, 2020 12:00am November 13, 2022 8:38am Start: 02-18-2017 End: 06-30-2017 take 0.5 tablet by mouth once daily Lisinopril Discontinued 0.5 TAB PO Daily February 18, 2017 1:00am June 30, 2017 11:58pm Multiple Vitamins/Minerals TABS (13 sources) Multiple Vitamins/Minerals TABS TAKE 1 TABLET DAILY. Quantity: 0 Refills: 0 Ordered: 24-Sep-2017 DO Active 24 hr niacin 500 mg extended release oral tablet (1 source) Nicotinic Acid Start: 010 End: 023 take 1 tablet by mouth once daily at bedtime niacin 500 mg ER tablet Take 1 tablet (500 mg) by mouth once daily at bedtime. 0 08/18/2009 01/12/2023 Discontinued (Ineffective) pravastatin sodium 40 mg oral tablet (20 sources) HMG-CoA Reductase Inhibitor Start: 018 End: 021 take 40 mg by mouth once daily Pravastatin Discontinued 40 MG PO Daily July 01, 2017 12:00am December 31, 2020 7:38am Start: 02-18-2017 End: 02-19-2017 take 20 mg by mouth at bedtime Pravastatin Discontinue d 20 MG PO Bedtime February 18, 2017 1:00am February 19, 2017 12:09pm raNITIdine 150 mg oral tablet (20 sources) Histamine-2 Receptor Antagonist Start: 12-14-2017 End: 08-23-2019 take 150 mg by mouth three times daily Ranitidine Hcl Discontinued 150 MG PO Three times daily December 14, 2017 12:00am August 23, 2019 1:05pm Start: 02-18-2017 End: 12-14-2017 Ranitidine Hcl (Zantac 75) 7 5 mg Tablet Discontinued 150 MG PO Twice daily February 18, 2017 1:00am December 14, 2017 3:22pm raNITIdine HCl 1 50 MG TABS TAKE 1 TABLET TWICE DAILY. Quantity: 0 Refills: 0 Ordered: 24-Sep-2017 DO Active rosuvastatin calcium 20 mg oral tablet (1 source) HMG-CoA Reductase Inhibitor Start: 08-18-2009 End: 01-12-2023 take 1 tablet by mouth once daily rosuvastatin (Crestor) 20 mg tablet Take 1 tablet (20 mg) by mouth once daily. 0 08/18/2009 01/12/2023 Discontinued (Ineffective) ticagrelor 90 mg oral tablet (7 sources) Start: 02-18-2017 End: 06-30-2017 take 1 tablet by mouth twice daily Ticagrelor (Brilinta) 90 mg Tablet Discontinued 90 MG PO Twice daily February 18, 2017 1:00am June 30, 2017 11:59pm triamcinolone acetonide 40 mg/ml injectable suspension (11 sources) Corticosteroid Start: 12-30-2022 Kenalog-40 Dec, 20 mg 24 hr venlafaxine 37.5 mg extended release oral tablet (20 sources) Serotonin and Norepinephrine Reuptake Inhibitor Start: 03-31-2020 take 1 tablet by mouth once daily Venlafaxine HCl ER 37.5 MG Oral Tablet Extended Release 24 Hour Take 1 tablet daily Quantity: 0 Refills: 0 Ordered: 02-Jun-2020 DO Start : 31-Mar-2020 Active Start: 08-23-2019 End: 11-13-2022 take 1 capsule by mouth once daily Venlafaxine (Effexor Xr) 150 mg Capsule,Extended Release 24hr Discontinued 150 MG PO Daily August 23, 2019 12:00am November 13, 2022 8:39am Start: 08-23-2019 End: 11-13-2022 take 37.5 mg by mouth once daily at bedtime Venlafaxine Discontinued 37.5 MG PO Daily at bedtime August 23, 2019 12:00am November 13, 2022 8:39am Effexor Not-Taki ng Venlafaxine HCl ER Not-Taking Problems Active Problems Problem Classification Problem Date Documented Da te Episodic/Chronic Acute bronchitis (4 sources) Acute bronchitis due to other specified organisms; Translations: [Acute bronchitis] Episodic Acute cerebrovascular disease (3 sources) Cerebral infarction; Translations: [Cerebral infarction, unspecified] Chronic Acute myocardial infarction (20 sources) Myocardial infarction; Translations: [Non-ST elevation (NSTEMI) myocardial infarction] 12-30-2020 Chronic Allergic reactions (3 sources) Contact dermatitis; Translations: [Unspecified contact dermatitis, unspecified cause] Episodic Cardiac dysrhythmias (20 sources) Atrial fibrillation; Translations: [Atrial fibrillation] Onset: 3 Resolved: 2 12-28-2020 Chronic Chronic obstructive pulmonary disease and bronchiectasis (20 sources) Mucopurulent chronic bronchitis; Translations: [Mucopurulent chronic bronchitis] Onset: 4 Resolved: 0 Chronic Coagulation and hemorrhagic disorders (6 sources) Blood coagulation disorder; Translations: [Coagulation defect, unspecified] 06-17-2018 Chronic Complication of device; implant or graft (3 sources) Arteriosclerosis of coronary artery bypass graft; Translations: [Atherosclerosis of coronary artery bypass graft(s) without angina pectoris] Onset: 3 07-13-2023 Chronic Conduction disorders (20 sources) Right bundle branch block; Translations: [Right bundle branch block] Onset: 3 Resolved: 4 12-28-2020 Chronic Congestive heart failure; nonhypertensive (20 sources) Chronic systolic heart failure; Translations: [Chronic systolic (congestive) heart failure] Onset: 3 Chronic Coronary atherosclerosis and other heart disease (20 sources) Coronary atherosclerosis; Translations: [Coronary atherosclerosis of [place] coronary artery] Onset: 8 06-17-2021 Chronic Coronary atherosclerosis and other heart disease (4 sources) Coronary angioplasty status; Translations: [Presence of aortocoronary bypass graft] Onset: 3 Episodic Delirium, dementia, and amnestic and other cognitive disorders (20 sources) Dementia; Translations: [Dementia, unspecified, without behavioral disturbance] Onset: 8 12-30-2022 Chronic Diabetes mellitus with complications (20 sources) Type 2 diabetes mellitus with peripheral angiopathy; Translations: [Type 2 diabetes mellitus with diabetic peripheral angiopathy without gangrene] Onset: 7 Chronic Diabetes mellitus without complication (20 sources) Diabetes mellitus; Translations: [Diabetes mellitus without mention of complication, type II or unspecified type, not stated as uncontrolled] Onset: 2 12-31-2020 Chronic Diseases of mouth; excluding dental (20 sources) Mass of parotid gland; Translations: [Other diseases of salivary glands] Episodic Disorders of lipid metabolism (20 sources) Hyperlipidemia; Translations: [Other and unspecified hyperlipidemia] Onset: 0 12-28-2020 Chronic Epilepsy; convulsions (20 sources) Idiopathic generalized epilepsy, non-refractory; Translations: [Generalized idiopathic epilepsy and epileptic syndromes, not intractable, without status epilepticus] Onset: 4 Chronic Esophageal disorders (20 sources) Gastroesophageal reflux disease; Translations: [Esophageal reflux] Onset: 3 12-30-2022 Chronic Essential hypertension (20 sources) Hypertensive disorder; Translations: [Unspecified essential hypertension] Onset: 2 12-28-2020 Chronic Hyperplasia of prostate (6 sources) Lower urinary tract symptoms due to benign prostatic hypertrophy; Translations: [Benign prostatic hyperplasia with lower urinary tract symptoms] Resolved: 2 Chronic Immunizations and screening for infectious disease (6 sources) Contact with and (suspected) exposure to other viral communicable diseases; Translations: [Vaccination given] Episodic Late effects of cerebrovascular disease (19 sources) Vertigo as late effect of stroke; Translations: [Other sequelae of cerebral infarction] Onset: 8 Chronic Malaise and fatigue (20 sources) Fatigue; Translations: [Other fatigue] Onset: 8 Episodic Miscellaneous mental health disorders (20 sources) Primary insomnia; Translations: [Primary insomnia] Chronic Mood disorders (20 sources) Mild recurrent major depression; Translations: [Major depressive disorder, recurrent, mild] Onset: 0 Chronic Mycoses (3 sources) Candidiasis of mouth; Translations: [Candidiasis of mouth] Episodic Nonspecific chest pain (20 sources) Chest pain; Translations: [Chest pain, unspecified] 06-17-2021 Episodic Occlusion or stenosis of precerebral arteries (20 sources) Occlusion and stenosis of multiple and bilateral cerebral arteries; Translations: [Occlusion and stenosis of bilateral carotid arteries] Chronic Osteoarthritis (3 sources) Osteoarthritis; Translations: [Polyosteoarthritis, unspecified] Onset: 3 Chronic Other aftercare (20 sources) Long-term current use of insulin; Translations: [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] 05-01-2023 Episodic Other aftercare (12 sources) Other residential (current) drug therapy; Translations: [OTH JAIL CURRENT DRUG THERAPY] Onset: 3 Episodic Other aftercare (9 sources) group home (current) use of insulin; Translations: [Long-term (current) use of insulin] Onset: 3 Episodic Other aftercare (5 sources) Encounter for therapeutic drug level monitoring; Translations: [ENC THERAPEUTC DRUG LEVL MONITORING] Onset: 3 Episodic Other aftercare (3 sources) group home (current) use of anticoagulants; Translations: [INFORMATION OFFICER CURRNT USE ANTICOAGULANTS] Onset: 3 Episodic Other aftercare (3 sources) Long-term current use of drug therapy; Translations: [Other residential (current) drug therapy] Episodic Other and ill-defined cerebrovascular disease (20 sources) Cerebral atherosclerosis; Translations: [Cerebral atherosclerosis] Chronic Other and ill-defined cerebrovascular disease (3 sources) Cerebrovascular disease; Translations: [Cerebrovascular disease, unspecified] Chronic Other and ill-defined heart disease (20 sources) Systolic dysfunction; Translations: [Heart disease, unspecified] Chronic Other and ill-defined heart disease (4 sources) Heart disease, unspecified; Translations: [HEART DISEASE UNSPECIFIED] Onset: 2 Chronic Other and ill-defined heart disease (3 sources) Heart disease; Translations: [Heart disease, unspecified] Chronic Other circulatory disease (2 sources) Peripheral vascular angioplasty status; Translations: [Peripheral vascular angioplasty status] Onset: 3 Episodic Other connective tissue disease (20 sources) Pain of right calf; Translations: [Pain in right lower leg] Episodic Other connective tissue disease (4 sources) Trigger finger, right ring finger Episodic Other connective tissue disease (3 sources) Pain in limb; Translations: [Pain in right lower leg] Episodic Other gastrointestinal disorders (20 sources) Chronic constipation; Translations: [Other constipation] Episodic Other gastrointestinal disorders (3 sources) Constipation; Translations: [Other constipation] Episodic Other hereditary and degenerative nervous system conditions (20 sources) Mild cognitive disorder ; Translations: [Mild cognitive impairment, so stated] Chronic Other hereditary and degenerative nervous system conditions (20 sources) Restless legs; Translations: [Restless legs syndrome] Chronic Other injuries and conditions due to external causes (3 sources) History of fall; Translations: [History of falling] Episodic Other liver diseases (17 sources) ALT (SGPT) level raised; Translations: [Elevated alanine aminotransferase (ALT) level] Episodic Other liver diseases (3 sources) Elevated levels of transaminase & lactic acid dehydrogenase; Translations: [Nonspecific elevation of levels of transaminase and lactic acid dehydrogenase [LDH]] Episodic Other lower respiratory disease (5 sources) Hypoxia; Translations: [Hypoxemia] 06-17-2018 Episodic Other lower respiratory disease (13 sources) Dyspnea; Translations: [Shortness of breath] Onset: 4 05-21-2023 Episodic Other lower respiratory disease (3 sources) Shortness of breath; Translations: [Shortness of breath] Onset: 3 Episodic Other nervous system disorders (20 sources) Neuropathy; Translations: [Polyneuropathy, unspecified] Chronic Other nervous system disorders (18 sources) Lesion of ulnar nerve, right upper limb; Translations: [Cubital tunnel syndrome on right] Chronic Other nervous system disorders (3 sources) Disorder of autonomic nervous system; Translations: [Disorder of the autonomic nervous system, unspecified] Chronic Other nervous system disorders (20 sources) Paresthesia; Translations: [Paresthesia of skin] Episodic Other nutritional; endocrine; and metabolic disorders (20 sources) Obesity; Translations: [Obesity, unspecified] Onset: 0 Chronic Other nutritional; endocrine; and metabolic disorders (3 sources) Simple obesity ; Translations: [Other obesity due to excess calories] Onset: 0 Chronic Other nutritional; endocrine; and metabolic disorders (9 sources) Obese class I; Translations: [Body mass index 32.0-32.9, adult] Onset: 6 Chronic Other nutritional; endocrine; and metabolic disorders (20 sources) Body mass index 30+ - obesity; Translations: [Body mass index 31.0-31.9, adult] Onset: 6 Resolved: 4 01-12-2023 Chronic Other nutritional; endocrine; and metabolic disorders (2 sources) Body mass index (BMI) 35.0-35.9, adult; Translations: [Body mass index (BMI) 35.0-35.9, adult] Onset: 4 Chronic Other nutritional; endocrine; and metabolic disorders (2 sources) Body mass index (BMI) 33.0-33.9, adult; Translations: [Body mass index (BMI) 33.0-33.9, adult] Onset: 3 Chronic Other screening for suspected conditions (not mental disorders or infectious disease) (14 sources) Patient encounter status; Translations: [Encounter for screening for malignant neoplasm of colon] Onset: 7 06-26-2020 Episodic Other skin disorders (20 sources) Sebaceous cyst; Translations: [Sebaceous cyst] Episodic Other skin disorders (3 sources) Folliculitis; Translations: [Follicular disorder, unspecified] Episodic Other upper respiratory infections (3 sources) Acute pharyngitis; Translations: [Acute pharyngitis, unspecified] Episodic Otitis media and related conditions (20 sources) Perforation of tympanic membrane; Translations: [Unspecified perforation of tympanic membrane, bilateral] Onset: 8 Episodic Peripheral and visceral atherosclerosis (20 sources) Peripheral vascular disease; Translations: [Peripheral vascular disease, unspecified] Resolved: 0 Chronic Residual codes; unclassified (20 sources) Sleep apnea; Translations: [Unspecified sleep apnea] Onset: 3 12-30-2022 Chronic Residual codes; unclassified (1 source) Sleep apnea, unspecified; Translations: [SLEEP APNEA UNSPECIFIED] Onset: 2 Chronic Residual codes; unclassified (12 sources) Tobacco user; Translations: [Tobacco use] Onset: 3 12-28-2020 Episodic Skin and subcutaneous tissue infections (20 sources) Cellulitis; Translations: [Cellulitis of face] Onset: 6 Episodic Spondylosis; intervertebral disc disorders; other back problems (20 sources) Lumbar spondylosis; Translations: [Spondylosis without myelopathy or radiculopathy, lumbar region] Chronic Substance-related disorders (20 sources) Smokes tobacco daily; Translations: [Tobacco use disorder] Onset: 0 Resolved: 4 Chronic Comment on above: 3 cigarettes per day ; almost a pack daily; Superficial injury; contusion (2 sources) Contusion of left lesser toe(s) with damage to nail, initial encounter; Translations: [Contusion of left lesser toe(s) with damage to nail, subsequent encounter] Episodic Transient cerebral ischemia (7 sources) Cerebral ischemia; Translations: [Transient cerebral ischemic attack, unspecified] 07-01-2017 Chronic Unclassified (1 source) Encounter for preprocedural laboratory examination; Translations: [Encounter for preprocedural laboratory examination] Onset: 3 Unclassified (1 source) Encounter for checking and testing of cardiac pacemaker pulse generator [battery]; Translations: [Encounter for checking and testing of cardiac pacemaker pulse generator [battery]] Onset: 3 Viral infection (5 sources) Disease caused by 2019-nCoV; Translations: [COVID-19] 12-28-2020 Episodic Past or Other Problems Problem Classification Problem Date Documented Da te Episodic/Chronic Administrative/social admission (19 sources) Follow-up status; Translations: [Other specified counseling] Onset: 4 05-21-2023 Episodic Bacterial infection; unspecified site (6 sources) Bacterial infectious disease; Translations: [Bacterial infection, unspecified, in conditions classified elsewhere and of unspecified site] Onset: 6 Episodic Complication of device; implant or graft (20 sources) Coronary stent occluded; Translations: [Other complications due to other cardiac device, implant, and graft] Onset: 3 12-30-2022 Episodic Conditions associated with dizziness or vertigo (15 sources) Dizziness and giddiness; Translations: [Benign paroxysmal positional vertigo] Onset: 3 Episodic Disorders of teeth and jaw (4 sources) Jaw pain; Translations: [Periapical abscess without sinus] Onset: 2 Episodic Epilepsy; convulsions (7 sources) Unspecified convulsions; Translations: [Seizure] Onset: 4 Episodic Esophageal disorders (20 sources) Esophageal disorders; Translations: [Gastro-esophageal reflux disease with esophagitis, without bleeding] Neoplasms of unspecified nature or uncertain behavior (3 sources) Neoplasm of uncertain behavior of skin; Translations: [Neoplasm of uncertain behavior of skin] Onset: 9 Episodic Other aftercare (20 sources) Drug therapy finding; Translations: [Long-term (current) use of other medications] Onset: 4 Resolved: 3 05-21-2023 Episodic Other aftercare (1 source) long term care phlebotomist (current) use of aspirin; Translations: [INFORMATION OFFICER CURRENT USE OF ASPIRIN] Onset: 2 Episodic Other aftercare (1 source) long term care phlebotomist (current) use of oral hypoglycemic drugs; Translations: [INFORMATION OFFICER USE ORAL HYPOGLYCEMIC DX] Onset: 2 Episodic Other aftercare (1 source) group home (current) use of antithrombotics/antipl atelets; Translations: [JAIL ANTITHROMBOT/ANTIPLATL ETS] Onset: 2 Episodic Other aftercare (9 sources) Taking high risk medication; Translations: [Other long chain quiller tender (current) drug therapy] Onset: 3 12-30-2022 Episodic Other circulatory disease (20 sources) History of cerebrovascular accident; Translations: [Personal history of transient ischemic attack (TIA), and cerebral infarction without residual deficits] Onset: 3 12-28-2020 Episodic Other circulatory disease (20 sources) Patient post angioplasty; Translations: [Other postprocedural status] Onset: 3 12-30-2022 Episodic Other circulatory disease (20 sources) History of sick sinus syndrome; Translations: [Personal history of other diseases of circulatory system] Onset: 3 Resolved: 3 12-30-2022 Episodic Other circulatory disease (8 sources) Low blood pressure; Translations: [Hypotension, unspecified] Resolved: 2 06-17-2018 Episodic Other circulatory disease (4 sources) Personal history of transient ischemic attack (TIA), and cerebral infarction without residual deficits; Translations: [PERS HX TIA AND CI NO RESID DEFICIT] Onset: 2 Episodic Other circulatory disease (3 sources) History of cerebrovascular accident without residual deficits; Translations: [Personal history of transient ischemic attack [TIA], and cerebral infarction without residual deficits] Onset: 0 Episodic Other circulatory disease (2 sources) Personal history of other diseases of the circulatory system; Translations: [Personal history of other diseases of the circulatory system] Onset: 3 Episodic Other gastrointestinal disorders (20 sources) Drug-induced constipation; Translations: [Other constipation] Onset: 3 01-09-2023 Episodic Other gastrointestinal disorders (3 sources) Slow transit constipation; Translations: [Slow transit constipation] Onset: 9 Episodic Other injuries and conditions due to external causes (3 sources) Open wound without complication; Translations: [Open wound(s) (multiple) of unspecified site(s), without mention of complication] Onset: 8 Episodic Other nervous system disorders (3 sources) Dysarthria; Translations: [Dysarthria and anarthria] Onset: 4 Episodic Other non-traumatic joint disorders (3 sources) Pain in right hip joint; Translations: [Pain in right hip] Onset: 9 Episodic Other skin disorders (1 source) Localized swelling, mass and lump, head; Translations: [LOCALIZED SWELLING MASS AND LUMP HEAD] Onset: 2 Episodic Residual codes; unclassified (3 sources) Requires influenza virus vaccination; Translations: [Need for prophylactic vaccination and inoculation, Influenza] Onset: 7 Episodic Residual codes; unclassified (1 source) Tobacco use; Translations: [Tobacco use] Onset: 3 Episodic Screening and history of mental health and substance abuse codes (4 sources) Personal history of nicotine dependence; Translations: [History of tobacco use] Onset: 6 Episodic Spondylosis; intervertebral disc disorders; other back problems (6 sources) Low back pain; Translations: [Lumbago] Onset: 3 Episodic Unclassified (14 sources) Elevated alanine aminotransferase (ALT) level; Translations: [Elevated alanine aminotransferase (ALT) level] Unclassified (3 sources) Vaccine product containing only acellular Bordetella pertussis and Clostridium tetani and Corynebacterium diphtheriae antigens (medicinal product); Translations: [Mrazjjmmdt-zedutgi-on rtussis, combined [DTP] [DtaP]] Onset: 8 Unclassified (3 sources) Long-term current use of drug therapy; Translations: [Long-term (current) use of other medications] Onset: 7 Unclassified (8 sources) Onset: 3 Resolved: 4 01-12-2023 Viral infection (20 sources) Disease caused by 2019-nCoV; Translations: [COVID-19] Results Test Name Value Interpretation Reference Range Facility TRANSTHORACIC ECHO (TTE) COM PLETEon 08-24-2023 TRANSTHORACIC ECHO (TTE) COMPLETE [address], [address], [place] [address] TRANSTHORACIC ECHOCARDIOGRAM REPORT Patient Name: LESLEY Vann Physician: [id number] Errol Huber MD Study Date: 08/24/2023 Ordering Provider: [id number] CARMEN HA MRN/PID: [id number] Fellow: Nurse: Date of /Age: 11 1955 Insulation Board Calender Operator: Lesley Zuniga years Gender: M Additional Staff: Height: 175.26 cm Admit Date: 08/24/2023 Weight: 109.32 kg Admission Status: Outpatient BSA / BMI: 2.24 m2 / 35.59 Department Location: [facility] kg/m2 [facility] Blood Pressure: 120 /60 mmHg Study Type: TRANSTHORACIC ECHO (TTE) COMPLETE Diagnosis/ICD: Shortness of breath-R06.02 Indication: SOB CPT Codes: Echo [id number] Patient History: Smoker: Current. Diabetes: Yes Pacer/Defib: AICD Pertinent History: CHF, COPD, HTN, Hyperlipidemia and SOB, Stent, SSS, CVA, RBBB, CABG, High risk med use, LBBB. Study Detail: The following Echo studies were performed: 2D, M-Mode, Doppler and color flow. The patient was awake. PHYSICIAN INTERPRETATION: Left Ventricle: Left ventricular systolic function is severely decreased, with an estimated ejection fraction of 30-35%. There is global hypokinesis of the left ventricle with minor regional variations. The left ventricular cavity size is mildly dilated. Abnormal (paradoxical) septal motion, consistent with RV pacemaker. Spectral Doppler shows an impaired relaxation pattern of left ventricular diastolic filling. AV & VV optimization study with final settings of: LV to RV by 40 ms, paced AV delay = 200 ms and sensed AV delay = 150 ms. Left Atrium: The left atrium is mildly dilated. Right Ventricle: The right ventricle is normal in size. There is normal right ventricular global systolic function. Right Atrium: The right atrium is normal in size. Aortic Valve: The aortic valve was not well visualized. There is no evidence of aortic valve regurgitation. The peak instantaneous gradient of the aortic valve is 4.2 mmHg. The mean gradient of the aortic valve is 3.0 mmHg. Mitral Valve: The mitral valve is mild to moderately thickened. There is mild mitral valve regurgitation. Tricuspid Valve: The tricuspid valve was not well visualized. There is mild tricuspid regurgitation. Pulmonic Valve: The pulmonic valve is not well visualized. There is no indication of pulmonic valve regurgitation. Pericardium: There is a trivial pericardial effusion. Aorta: The aortic root is normal. CONCLUSIONS: 1. Left ventricular systolic function is severely decreased with a 30-35% estimated ejection fraction. 2. Poorly visualized anatomical structures due to suboptimal image quality. 3. Abnormal septal motion consistent with RV pacemaker. 4. AV & VV optimization study with final settings of: LV to RV by 40 ms, paced AV delay = 200 ms and sensed AV delay = 150 ms. 5. Spectral Doppler shows an impaired relaxation pattern of left ventricular diastolic filling. 6. When compared to prior study from October 2022, the ejection fraction remains essentially unchanged. 7. There is global hypokinesis of the left ventricle with minor regional variations. QUANTITATIVE DATA SUMMARY: 2D MEASUREMENTS: Normal Ranges: Ao Root d: 3.20 cm (2.0-3.7cm) LAs: 3.30 cm (2.7-4.0cm) RVIDd: 3.90 cm (0.9-3.6cm) IVSd: 1.10 cm (0.6-1.1cm) LVPWd: 1.10 cm (0.6-1.1cm) LVIDd: 5.10 cm (3.9-5.9cm) LVIDs: 4.10 cm LV Mass Index: 95.7 g/m2 LV % FS 19.6 % LA VOLUME: Normal Ranges: LA Area A4C: 20.8 cm2 LA Area A2C: 17.7 cm2 LA Volume Index: 28.1 ml/m2 LA Vol A4C: 60.0 ml LA Vol A2C: 54.0 ml LA Vol BP: 63.0 ml LV SYSTOLIC FUNCTION BY 2D PLANIMETRY (MOD): Normal Ranges: EF-A4C View: 35.5 % (>=55%) EF-A2C View: 35.3 % EF-Biplane: 38.5 % LV DIASTOLIC FUNCTION: Normal Ranges: MV Peak E: 0.53 m/s (0.7-1.2 m/s) MV Peak A: 0.78 m/s (0.42-0.7 m/s) E/A Ratio: 0.68 (1.0-2.2) MV lateral e' 0.07 m/s MV medial e' 0.05 m/s MV A Dur: 180.00 msec E/e' Ratio: 7.70 (<8.0) PulmV Sys Wiliam: 46.80 cm/s PulmV Clements Wiliam: 40.70 cm/s PulmV S/D Wiliam: 1.10 PulmV A Revs Wiliam: 32.00 cm/s PulmV A Revs Dur: 113.00 msec MITRAL VALVE: Normal Ranges: MV Vmax: 0.74 m/s (<=1.3m/s) MV peak P.2 mmHg (<5mmHg) MV mean P.0 mmHg (<48mmHg) MV DT: 331 msec (150-240msec) AORTIC VALVE: Normal Ranges: AoV Vmax: 1.02 m/s (<=1.7m/s) AoV Peak P.2 mmHg (<20mmHg) AoV Mean P.0 mmHg (1.7-11.5mmHg) LVOT Max Wiliam: 0.80 m/s (<=1.1m/s) AoV VTI: 22.60 cm (18-25cm) LVOT VTI: 13.90 cm LVOT Diameter: 2.00 cm (1.8-2.4cm) AoV Area, VTI: 1.93 cm2 (2.5-5.5cm2) AoV Area,Vmax: 2.45 cm2 (2.5-4.5cm2) AoV Dimensionless Index: 0.62 TRICUSPID VALVE/RVSP: Normal Ranges: Peak TR Velocity: 1.53 m/s Est. RA Pressure: 3 mmHg RV Syst Pressure: 12.4 mmHg (< 30mmHg) PULMONIC VALVE: Normal Ranges: PV Accel Time: 95 msec (>120ms) PV Max Wiliam: 0.7 (more content not included)... Normal [facility] ECG 12 Leadon 07-13-2023 Atrial fibrillation, AV sequential pacing, PVCs, abnormal ECG [facility] [place] Work Phone: XR Chest 2 Viewson 4 These images are not reportable by radiology and will not be interpreted by Radiologists. IMAGING XR Chest 2 Viewson 4 1. No evidence of ac dean cardiopulmonary process. MACRO: None Signed by: Roel Strickland 05/22/2023 10:28 AM Dictation workstation: [id number] [facility] Interpreted By: Role Blount, STUDY: XR CHEST 2 VIEWS; 05/21/2023 12:44 pm INDICATION: Signs/Symptoms:lead placement. COMPARISON: 01/26/2023 ACCESSION NUMBER(S): [id number] ORDERING CLINICIAN: CARMEN HA FINDINGS: Left-sided pacemaker in place. Median sternotomy wires. CARDIOMEDIASTINAL SILHOUETTE: Cardiomediastinal silhouette is normal in size and configuration. LUNGS: Lungs are clear. ABDOMEN: No remarkable upper abdominal findings. BONES: No acute osseous changes. MMODAL Roel Strickland MD - 05/22/2023 Interpreted By: Roel Strickland, STUDY: XR CHEST 2 VIEWS; 05/21/2023 12:44 pm INDICATION: Signs/Symptoms:lead placement. COMPARISON: 01/26/2023 ACCESSION NUMBER(S): [id number] ORDERING CLINICIAN: CARMEN HA FINDINGS: Left-sided pacemaker in place. Median sternotomy wires. CARDIOMEDIASTINAL SILHOUETTE: Cardiomediastinal silhouette is normal in size and configuration. LUNGS: Lungs are clear. ABDOMEN: No remarkable upper abdominal findings. BONES: No acute osseous changes. IMPRESSION: 1. No evidence of acute cardiopulmonary process. MACRO: None Signed by: Roel Strickland 05/22/2023 10:28 AM Dictation workstation: [id number] [facility] Work Phone: XR Chest 2 ViewsOrdered By: Roel Strickland on 05-22-2023 [facility] Work Phone: ECG 12 lead (Clinic Performe d)on 05-21-2023 [facility] Work Phone: XR CHEST 2 VIEWSon 4 XR CHEST 2 VIEWS Interpreted By: Roel Blount, STUDY: XR CHEST 2 VIEWS; 05/21/2023 12:44 pm INDICATION: Signs/Symptoms:lead placement. COMPARISON: 01/26/2023 ACCESSION NUMBER(S): [id number] ORDERING CLINICIAN: CARMEN HA FINDINGS: Left-sided pacemaker in place. Median sternotomy wires. CARDIOMEDIASTINAL SILHOUETTE: Cardiomediastinal silhouette is normal in size and configuration. LUNGS: Lungs are clear. ABDOMEN: No remarkable upper abdominal findings. BONES: No acute osseous changes. IMPRESSION: 1. No evidence of acute cardiopulmonary process. MACRO: None Signed by: Roel Strickland 05/22/2023 10:28 AM Dictation workstation: [id number] [facility] XR Chest 2 Viewson Radiology Study observation (narrative) [facility] Work Phone: Aspartate Amino Transferaseo n 03-24-2023 AST [Catalytic activity/Vol] 34 U/L Normal 13-39 [facility] Comment on above: Performed By: #### C REAT, LYTES, CBC, PP, LIPID, BUN #### [address] Aspartate aminotransferase [ Enzymatic activity/volume] in Serum or PlasmaOrdered By: Franck Posey on 03-24-2023 AST [Catalytic activity/Vol] 34 U/L 13-39 [facility] Basic Metabolic Panelon Anion gap [Moles/Vol] 11.0 mmol/L Normal 6.0-15.0 [facility] Comment on above: Performed By: #### C REAT, LYTES, CBC, PP, LIPID, BUN #### [facility] [address] Calcium [Mass/Vol] 9.5 mg/dL Normal 8.6-10.[address] [facility] Comment on above: Performed By: #### C REAT, LYTES, CBC, PP, LIPID, BUN #### [facility] [address] Chloride [Moles/Vol] 106 mmol/L Normal 98-107 [facility] Comment on above: Performed By: #### C REAT, LYTES, CBC, PP, LIPID, BUN #### [facility] [address] CO2 [Moles/Vol] 28.4 mmol/L Normal 21.0-31.0 [facility] Comment on above: Performed By: #### C REAT, LYTES, CBC, PP, LIPID, BUN #### [facility] [address] Creatinine [Mass/Vol] 1.22 mg/dL Normal 0.70-1.30 [facility] Comment on above: Performed By: #### C REAT, LYTES, CBC, PP, LIPID, BUN #### [facility] [address] GFR/1.73 sq M.predicted MDRD (S/P/Bld) [Vol rate/Area] mL/min/{1.73_m2} Normal [facility] Comment on above: Performed By: #### C REAT, LYTES, CBC, PP, LIPID, BUN #### [facility] [address] Glucose [Mass/Vol] 179 mg/dL High 70-[address] [facility] Comment on above: Result Comment: [place] Glucose Reference Range is dependent on time and content of last meal. Glucose of more than 200 mg/dL in a nonstressed, ambulatory subject supports the diagnosis of Diabetes Mellitus. ADA recommended reference range Performed By: #### C REAT, LYTES, CBC, PP, LIPID, BUN #### [facility] [address] Potassium [Moles/Vol] 5.4 mmol/L High 3.5-5.1 [facility] Comment on above: Performed By: #### C REAT, LYTES, CBC, PP, LIPID, BUN #### [facility] [address] Sodium [Moles/Vol] 140 mmol/L Normal 136-[address] [facility] Comment on above: Performed By: #### C REAT, LYTES, CBC, PP, LIPID, BUN #### [facility] [address] Urea nitrogen [Mass/Vol] 17 mg/dL Normal 7-25 [facility] Comment on above: Performed By: #### C REAT, LYTES, CBC, PP, LIPID, BUN #### [facility] [address] Calcium [Mass/volume] in Ser um or PlasmaOrdered By: Franck Posey on 03-24-2023 Calcium [Mass/Vol] 9.5 mg/dL 8.6-10.[address] [facility] Carbon dioxide, total [Moles /volume] in Serum or PlasmaOrdered By: Franck Posey on 03-24-2023 CO2 [Moles/Vol] 28.4 mmol/L 21.0-31.0 [facility] Chloride [Moles/volume] in S radha or PlasmaOrdered By: Franck Posey on 03-24-2023 Chloride [Moles/Vol] 106 mmol/L 98-107 [facility] Creatinine [Mass/volume] in Serum or PlasmaOrdered By: Franck Posey on 03-24-2023 Creatinine [Mass/Vol] 1.22 mg/dL 0.70-1.30 [facility] Glucose [Mass/volume] in Ser um or PlasmaOrdered By: Franck Poesy on 03-24-2023 Glucose [Mass/Vol] 179 mg/dL 70-[address] [facility] Comment on above: ADA recommended refe rence rangeRandom Glucose Reference Range is dependent on time and content of last meal. Glucose of more than 200 mg/dL in a nonstressed, ambulatory subject supports the diagnosis of Diabetes Mellitus. No Panel InformationOrdered By: Franck Posey on 03-24-2023 Estimated GFR (CKD-EPI) > 60.0 mL/Min [facility] Creatinine Clearance (Chem N/A [facility] Potassium [Moles/volume] in Serum or PlasmaOrdered By: Franck Posey on 03-24-2023 Potassium [Moles/Vol] 5.4 mmol/L 3.5-5.1 [facility] Serum or plasma anion gap de terminationOrdered By: Franck Posey on 03-24-2023 Anion gap [Moles/Vol] 11.0 mmol/L 6.0-15.0 [facility] Sodium [Moles/volume] in Ser um or PlasmaOrdered By: Franck Posey on 03-24-2023 Sodium [Moles/Vol] 140 mmol/L 136-[address] [facility] Thyroid Stimulating Hormoneo n 03-24-2023 TSH Qn 5.21 m[IU]/L Normal 0.45-5.33 [facility] Comment on above: Result Comment: PERF ORMED BY: [place] [address] PATHOLOGIST ADVERTISER HAILEY CALDERÓN M.D. Performed By: #### C REAT, LYTES, CBC, PP, LIPID, BUN #### [facility] [address] Thyrotropin [Units/volume] i n Serum or PlasmaOrdered By: Franck Posey on 03-24-2023 TSH Qn 5.21 m[IU]/L 0.45-5.33 [facility] Urea nitrogen [Mass/volume] in Serum or PlasmaOrdered By: Franck Posey on 03-24-2023 Urea nitrogen [Mass/Vol] 17 mg/dL 7-25 [facility] XR chest 2V*on 03-24-2023 XR chest 2V* [facility] [place] [address] [place], [place] [id number] XRay Report Signed Patient: Lesley Quintero MR#: [id number] : 1955 Acct:[id number] Age/Sex: 68 / M ADM Date: 03/24/23 Loc: RT Room: Type: [facility] Attending Dr: Franck Posey DO Copies to: Franck Posey DO Ordering Provider: Franck Posey DO Date of Service: 03/24/23 XR/XR chest 2V*: Z79.899, I48.0 PA AND LATERAL CHEST: CLINICAL HISTORY: High risk medication for atrial fibrillation COMPARISON: 08/05/2022 Median sternotomy wires and a left-sided pacemaker are again visualized. There is no developing consolidation, effusion or pneumothorax. Interstitial changes are again visualized. The cardiac, hilar and mediastinal silhouettes are stable. The visualized bony thorax is intact. XR/XR chest 2V* IMPRESSION: STABLE CHRONIC INTERSTITIAL CHANGES. NO ACUTE FINDINGS. Impression dictated by: Maya Isbell M.D.03/24/2023 4:06 PM Dictation Location: [facility] Transcribed By: [facility] 03/24/23 1606 Dictated By: Maya Isbell MD 03/24/23 160 Signed By: 03/24/[address] [facility] XR CHEST 2 VIEWSon XR CHEST 2 VIEWS Interpreted By: Jonathan Karimi, STUDY: XR CHEST 2 VIEWS; 01/26/2023 1:36 pm INDICATION: Signs/Symptoms:device upgrade. COMPARISON: Chest radiograph 01/07/2023 ACCESSION NUMBER(S): [id number] ORDERING CLINICIAN: HOLLI VAZQUEZ FINDINGS: PA and lateral radiographs of the chest were provided. DEVICES: Status post median sternotomy and left ICD. CARDIOMEDIASTINAL SILHOUETTE: Cardiomediastinal silhouette is stable in size and configuration.Atherosclero tic calcifications of the aortic arch. LUNGS: No focal consolidation. No pneumothorax. No pleural effusion. Bibasilar atelectasis. BONES: No acute osseous changes. IMPRESSION: 1. No evidence of acute cardiopulmonary process. Signed by: Jonathan Manzo 01/27/2023 10:43 PM Dictation workstation: [id number] Normal [facility] Comment on above: Order Comment: Prepr ocedure Basic metabolic 2000 panelon 01-07-2023 Anion gap [Moles/Vol] 11 mmol/L Normal 10-20 [facility] Comment on above: Performed By: #### 2 4321-2 #### PEPITO Hernandez ([id number]) [facility] ([facility]) [address] [place] [address] 99666 Calcium [Mass/Vol] 9.0 mg/dL Normal 8.6-10.3 [facility] Comment on above: Performed By: #### 2 4321-2 #### PEPITO Hernandez ([id number]) [facility] ([facility]) [address] [place] [address] 12008 Chloride [Moles/Vol] 103 mmol/L Normal 98-107 [facility] Comment on above: Performed By: #### 2 4321-2 #### PEPITO Hernandez ([id number]) [facility] ([facility]) [address] [place] [address] 50091 CO2 [Moles/Vol] 26 mmol/L Normal 21-32 [facility] Comment on above: Performed By: #### 2 4321-2 #### PEPITO Hernandez ([id number]) [facility] ([facility]) [address] [place] [address] 63114 Creatinine [Mass/Vol] 1.47 mg/dL High 0.50-1.30 [facility] Comment on above: Performed By: #### 2 4321-2 #### PEPITO Hernandez ([id number]) [facility] ([facility]) [address] [place] [address] 63730 GFR/1.73 sq M.predicted MDRD (S/P/Bld) [Vol rate/Area] 53 mL/min/1.73m*2 Low >60 [facility] Comment on above: Result Comment: Calc ulations of estimated GFR are performed using the 2020 CKD-EPI Study Refit equation without the race variable for the IDMS-Traceable creatinine methods. https://jasn.asnjournals.org/content//ASN.81588 64167 Performed By: #### 2 4321-2 #### PEPITO Hernandez ([id number]) [facility] ([facility]) [address] [place] [address] 77466 Glucose [Mass/Vol] 224 mg/dL High 74-99 [facility] Comment on above: Performed By: #### 2 4321-2 #### PEPITO Hernandez ([id number]) [facility] ([facility]) [address] [place] [address] 46215 Potassium [Moles/Vol] 4.6 mmol/L Normal 3.5-5.3 [facility] Comment on above: Performed By: #### 2 4321-2 #### PEPITO Hernandez ([id number]) [facility] ([facility]) [address] [place] [address] 35285 Sodium [Moles/Vol] 135 mmol/L Low 136-145 [facility] Comment on above: Performed By: #### 2 4321-2 #### PEPITO Hernandez ([id number]) [facility] ([facility]) [address] [place] [address] 33236 Urea nitrogen [Mass/Vol] 27 mg/dL High 6-23 [facility] Comment on above: Performed By: #### 2 4321-2 #### PEPITO Hernandez ([id number]) [facility]) [address] [place] [address] 17035 CBC panel Auto (Bld)on 01-07 Erythrocyte distribution width (RBC) [Ratio] 17.1 % High 11.5-14.5 [facility] Comment on above: Performed By: #### 5 8410-2 #### PEPITO Hernandez ([id number]) [facility] ([facility]) [address] [place] [address] 38330 Hematocrit (Bld) [Volume fraction] 44.0 % Normal 41.0-52.0 [facility] Comment on above: Performed By: #### 5 8410-2 #### PEPITO Hernandez ([id number]) [facility] ([facility]) [address] [place] [address] 95494 Hemoglobin (Bld) [Mass/Vol] 14.0 g/dL Normal 13.5-17.5 [facility] Comment on above: Performed By: #### 5 8410-2 #### PEPITO Hernandez ([id number]) [facility]) [address] [place] [address] 77178 MCH (RBC) [Entitic mass] 27.7 pg Normal 26.0-34.0 [facility] Comment on above: Performed By: #### 5 8410-2 #### PEPITO Hernandez ([id number]) [facility] ([facility]) [address] [place] [address] 26097 MCHC (RBC) [Mass/Vol] 31.8 g/dL Low 32.0-36.0 [facility] Comment on above: Performed By: #### 5 8410-2 #### PEPITO Hernandez ([id number]) [facility]) [address] [place] [address] 13350 MCV (RBC) [Entitic vol] 87 fL Normal 80-100 [facility] Comment on above: Performed By: #### 5 8410-2 #### PEPITO Hernandez ([id number]) [facility] ([facility]) [address] [place] [address] 65847 Nucleated RBC/100 WBC (Bld) [Ratio] 0.0 /100 WBCs Normal 0.0-0.0 [facility] Comment on above: Performed By: #### 5 8410-2 #### PEPITO Hernandez ([id number]) [facility] ([facility]) [address] [place] [address] 48672 Platelet mean volume (Bld) [Entitic vol] 12.6 fL High 7.5-11.5 [facility] Comment on above: Performed By: #### 5 8410-2 #### PEPITO Hernandez ([id number]) [facility] ([facility]) [address] [place] [address] 43450 Platelets (Bld) [#/Vol] 206 x10*3/uL Normal 150-450 [facility] Comment on above: Performed By: #### 5 8410-2 #### PEPITO Hernandez ([id number]) [facility] ([facility]) [address] [place] [address] 22245 RBC (Bld) [#/Vol] 5.06 x10*6/uL Normal 4.50-5.90 [facility] Comment on above: Performed By: #### 5 8410-2 #### PEPITO Hernandez ([id number]) [facility] ([facility]) [address] [place] [address] 09908 WBC (Bld) [#/Vol] 9.4 x10*3/uL Normal 4.4-11.3 [facility] Comment on above: Performed By: #### 5 8410-2 #### PEPITO Hernandez ([id number]) [facility] ([facility]) [address] [place] [address] 29683 ECG 12-LEADon 01-07-2023 ECG 12-LEAD Ventricular Rate 87 Atrial Rate 68 QRS Duration 114 Q-T Interval 436 QTC Calculation(Bazett) 524 R Silver Gate 46 T Silver Gate -64 QRS Count 15 Q Onset 214 T Offset 432 QTC Fredericia 493 Diagnosis Ventricular-paced rhythm PVC's Abnormal ECG When compared with ECG of 07-JAN-2023 07:58, (unconfirmed) Electronic ventricular pacemaker has replaced Electronic atrial pacemaker Confirmed by Darnell rBuce ([id number]) on 01/07/2023 3:28:55 PM Normal [facility] ECG 12-LEAD Ventricular Rate 70 Atrial Rate 70 P-R Interval 190 QRS Duration 174 Q-T Interval 504 QTC Calculation(Bazett) 544 R Silver Gate -78 T Silver Gate 71 QRS Count 11 Q Onset 196 T Offset 448 QTC Fredericia 530 Diagnosis AV sequential or dual chamber electronic pacemaker Abnormal ECG Confirmed by Darnell Bruce ([id number]) on 01/07/2023 3:26:08 PM Normal [facility] Glucose Test strip manual (B ld) [Mass/Vol]on 01-07-2023 Glucose [Mass/Vol] 161 mg/dL High [address] [place] [address] Comment on above: Performed By: #### 2 341-6 #### PEPITO Hernandez ([id number]) [facility] ([facility]) [address] [place] [address] 95889 Glucose [Mass/Vol] 194 mg/dL High [address] [place] [address] Comment on above: Performed By: #### 2 341-6 #### PEPITO Hernandez ([id number]) [facility] (C) [address] [place] [address] 01000 Glucose [Mass/Vol] 207 mg/dL High [address] [place] [address] Comment on above: Performed By: #### 2 341-6 #### PEPITO Hernandez ([id number]) [facility] ([facility]) [address] [place] [address] 93068 Glucose [Mass/Vol] 235 mg/dL High [address] [place] [address] Comment on above: Performed By: #### 2 341-6 #### PEPITO Hernandez ([id number]) [facility] ([facility]) [address] [place] [address] 43157 Glucose [Mass/Vol] 217 mg/dL High [address] [place] [address] Comment on above: Performed By: #### 2 341-6 #### PEPITO Hernandez ([id number]) [facility] ([facility]) [address] [place] [address] 42949 Glucose [Mass/Vol] 206 mg/dL High [address] [place] [address] Comment on above: Result Comment: RN/M D NOTIFIED Performed By: #### 2 341-6 #### PEPITO Hernandez ([id number]) [facility] ([facility]) [address] [place] [address] 25815 PT and aPTT panel Coag (PPP) on 01-07-2023 aPTT Coag (PPP) [Time] 32 s Normal 27-38 [facility] Comment on above: Order Comment: The A PTT is no longer used for monitoring Unfractionated Heparin Therapy. For monitoring Heparin Therapy, use the Heparin Assay. Performed By: #### 3 4529-8 #### PEPITO Hernandez ([id number]) [facility] ([facility]) [address] [place] [address] 87072 INR Coag (PPP) [Relative time] 1.1 Normal 0.9-1.1 [facility] Comment on above: Order Comment: The A PTT is no longer used for monitoring Unfractionated Heparin Therapy. For monitoring Heparin Therapy, use the Heparin Assay. Performed By: #### 3 4529-8 #### PEPITO Hernandez ([id number]) [facility] ([facility]) [address] [place] [address] 77438 PT Coag (PPP) [Time] 12.1 s Normal 9.8-12.8 [facility] Comment on above: Order Comment: The A PTT is no longer used for monitoring Unfractionated Heparin Therapy. For monitoring Heparin Therapy, use the Heparin Assay. Performed By: #### 3 4529-8 #### PEPITO Hernandez ([id number]) [facility] ([facility]) [address] [place] [address] 28159 XR CHEST 2 VIEWSon XR CHEST 2 VIEWS Interpreted By: Marilu Walton, STUDY: XR CHEST 2 VIEWS; 01/07/2023 8:34 am INDICATION: Signs/Symptoms:Pre-op upgrade to biventricular pacemaker. COMPARISON: 10/21/2017 ACCESSION NUMBER(S): [id number] ORDERING CLINICIAN: HOLLI MORALES FINDINGS: Bipolar left subclavian pacer wires with tips overlying the region of the right atrium and ventricle. Associated port obscures the left upper lung field. No focal infiltrate, pleural effusion or pneumothorax as visualized. The cardiac silhouette is within normal limits for size. Median sternotomy wires and mediastinal surgical clips again seen. Osseous thorax is grossly intact. IMPRESSION: No acute cardiopulmonary process radiographically. Pacemaker in place. MACRO: None Signed by: Marilu Ventura 01/07/2023 8:40 AM Dictation workstation: [id number] [facility] Comment on above: Order Comment: Prepr ocedure Office Visit (Cardiology)on 11-30-2022 Follow-up visit Diagnoses/Problems Assessed Ischemic cardiomyopathy (414.8) (I25.5) CHF (NYHA class III, ACC/AHA stage C) (428.0) (I50.9) Chronotropic incompetence with sinus node dysfunction (427.81) (I49.5) Encounter to establish care with new doctor (V65.8) (Z76.89) Encounter to discuss test results (V65.49) (Z71.2) Encounter to discuss treatment options (V65.49) (Z71.89) Medication care plan discussed with patient (V65.49) (Z71.89) Preop cardiovascular exam (V72.81) (Z01.810) Atherosclerosis of coronary artery of [place] heart without angina pectoris (414.01) (I25.10) Cardiac pacemaker in situ (V45.01) (Z95.0) LBBB (left bundle branch block) (426.3) (I44.7) Patient Instructions Continue same medications Patient educated on proper medication use. Patient educated on risk factor modification. Please bring any lab or test results from other providers/physician to your next appointment. Please bring all prescription medicines , vitamins, and herbal supplements, and over the counter medicines you use with you every time you come for appointment. Prescriptions will not be filled unless you are compliant with your follow up appointments or have a follow up appointment scheduled as per instruction of your physician. Refills should be requested at time of your visit. Nadeem Davenport LPN , am scribing for and in the presence of Dr Carmen Ha. 1 Upgrade to Biventricular Device at [place] [address] 1 Amended By: Nadeem Townsend; Nov 30 2022 1:45 PM EST 2 Amended By: Nadeem Townsend; Nov 30 2022 2:29 PM ESTChief Complaint LESLEY QUINTERO is being seen for a consultation for. placement Adult Risk Screening Tobacco Screenin Smoking/ tobacco counseling 3-10 mins1 . 1 Amended By: Carmen Ha; Nov 30 2022 11:54 AM ESTHistory of Present Illness He is referred here by Ivania Velazquez CNP for evaluation of arrhythmia and device He has dyspnea with exertion and hospitalization for heart failure. It is hard for him to ambulate due to dyspnea. He denies any palpitation, lightheadedness, near syncope, or syncope since pacemaker was implanted in past. His LVEF has declined over the past several years. Despite optimal GMT for heart failure, his repeat LVEf is 30-35%.is QRS is 170 ms. He is referred for update to biventricular ICD. See ROS, PMH, FMH, and surgical history for details. NYHA III C HF, LVEF Dec 2020 40%, LVEF Oct 2022 30-35% after GMT Neuropathy Personal review of ECG and cardiac data reviewed Outside records: OV with Ivania Velazquez Nov 2022 Cath Oct 2022. On medical management. Occluded LCx. Echo LVEF 30-35%. ECG 2022 Appropriate pacing. RAD. Paced QRS 170 ms. LBBB. Imp / Plan Ischemic CM. NYHA III C heart failure. LBBB with QRS 170 ms. Chronotropic incompetence. Sinus node dysfunction. s/p dual chamber pacemaker. Treatment options discussed. Ynsect decision tool. For upgrade to biventricular ICD. Risks, benefits, and imponderables reviewed. Informed consent obtained. For procedure under anesthesia for patient for back discomfort and neuropathy. CAD, chronic. Stable. Medical management. See problem list.Reviewed meds. Continue meds. Discussed refills. Paroxysmal atrial fibrillation. Reviewed meds. Continue meds. Hold Warfarin 4 days prior to upgrade of device. Bridge with Lovenox. Neuropathy. May be progressing per family report. Tobacco use HTN, hyperlipidemia, and DM noted AHA recommendations for exercise, diet, and behavioral modification reviewed with pt. The patient, , and I discussed the mechanism of arrhythmia,normal conduction, LVEF, what are indications for ICD, what are indications for biventricular device, pacemaker removal, Ynsect decision tool, informed consent, Lovenox bridge, possibility of unable to place CS lead, device followup, tobacco cessation for greater than 3 minutes, if and what medication refills needed, treatment options, brochure for SVT, meds vs ablation, Holter results, risks, benefits, and imponderables. [place] [employer] lifestyle changes and behavioral modification discussed. All questions answered in detail. Counseling over 50% visit regarding above. Patient and family appreciative of care. Active Problems Problems Anticoagulated (V58.61) (Z79.01) Atherosclerosis of coronary artery of [place] heart without angina pectoris (414.01) (I25.10) Cardiac pacemaker in situ (V45.01) (Z95.0) CHF (NYHA class III, ACC/AHA stage C) (428.0) (I50.9) Class 1 obesity with body mass index (BMI) of 33.0 to 33.9 in adult (278.00,V85.33) (E66.9,Z68.33) Class 2 obesity with body mass index (BMI) of 35.0 to 35.9 in adult (278.00,V85.35) (E66.9,Z68.35) Coronary stent occlusion (996.72) (T82.897A) Current every day smoker (305.1) (F17.200) almost a pack daily Dementia (294.20) (F03.90) Diabetes mellitus (250.00) (E11.9) Drug-induced constipation with proper administration (564.09) (K59.03) GERD (gastroesophageal reflux disease) (530.81) (K21.9) H/O sick sinus (more content not included)... Normal [employer] Tobacco Screening.on 023 Adult depression screening assessment No [facility] [employer] DO Work Phone: Fall risk assessment a) No falls within the last year [facility] [employer] DO Work Phone: Tobacco use status [facility] a) Yes [facility] [employer] DO Work Phone: Tobacco Screening. 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 - RCA RAMIREZ-LAD patent seq free KRISSY - Diag - OM1 patent Paroxysmal atrial fibrillation (427.31) (I48.0) EKG in the office AV pacing Amio 200 mg daily, QTc 518 Anticoagulated (V58.61) (Z79.01) CHADS VASc 7 anticoagulated Coumadin High risk medication use (V58.69) (Z79.899) Amiodarone Surveillance testing July 2022 Cardiac pacemaker in situ (V45.01) (Z95.0) SJM 2272 dual chamber PPM vpaced> 99% August 2022 device interrogation Hypertension (401.9) (I10) Low side of normal in office today Mild complaints of POH Hyperlipidemia (272.4) (E78.5) High intensity statin October 2022 LDL 47, HDL 24 Diabetes mellitus (250.00) (E11.9) On statin/ARB Class 1 obesity with body mass index (BMI) of 33.0 to 33.9 in adult (278.00,V85.33) (E66.9,Z68.33) optimal in office Current every day smoker (305.1) (F17.200) almost a pack daily smokes pipe tobacco (rolls on) CHF (NYHA class III, ACC/AHA stage C) (428.0) (I50.9) ICM HRrEF 30-35% Oct 2022 cardiac cath FC III Stage C GDMT: toprol losartan aldactone need to f/u on Jardiance BP too low for Entresto AV paced QRS 150-176 *Orders CHF (NYHA class III, ACC/AHA stage C) Cardiology - Electrophysiology Referral Evaluation and Treatment Evaluate AND Treat upgrade ICD 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 Though it is not easy, more than half of all adult smokers have quit. We encourage you to write down all the reasons you should quit smoking and set a quit date for yourself. Ask us how we can help. You may also call 0-589-SUJWNOW for free resources and assistance.; Status:Complete; Done: [id number] Tobacco Use Screening; Status:Complete; Done: [id number] CHF (NYHA class III, ACC/AHA stage C) (428.0) (I50.9) Patient Instructions Please bring all medicines, vitamins, and herbal supplements with you when you come to the office. Prescriptions will not be filled unless you are compliant with your follow up appointments or have a follow up appointment scheduled as per instruction of your physician. Refills should be requested at the time of your visit. PLAN: Through informed decision making process incorporating patients unique circumstances, the following treatment plan will be initiated: 1. Prescription drug management of cardiovascular medication for efficacy, adherence to treatment, side effect assessment and polypharmacy. Current treatment clinically warranted and to continue without modifications. 2. Referral to Dr. 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 Return for follow-up; in the interim, contact the office if new symptoms arise. Dr. Posey 3 months Chief Complaint Procedure f/u: 'still short of breath' LESLEY QUINTERO is being seen for cardiomyopathy. Patient presents to the office ambulatory with steady gait. Last evaluated in clinic Dr. Posey June 2022. At that time, he was initiated on losartan and Aldactone. A repeat echocardiogram showed continued decline in LVEF to 30 to 35%, an elective November 19, 2022 cardiac cath showed newly occluded circumflex disease, LVEF 35% with recommendations for medical management. He was to start Entresto but was unable to obtain medication. Also reports the pharmacy would not fill Jardiance due to concomitant Trulicity. He presents to the office today where his right groin cath site has healed without adverse sequela. He has a history of neurological decline, remains extremely pleasant but is a very difficult historian. He does report that it is becoming harder and harder to walk into our office due to dyspnea on exertion, remains comfortable at rest. He does not have stairs at home. No change in two-pillow orthopnea, no PND. He does have sleep apnea but is intolerant to CPAP machine. No evidence of volume overload on exam. He does reports feeling lightheaded a lot , symptoms consistent with postural orthostatic hypotension. Denies any prior syncopal episodes. SJM 7904 dual-chamber permanent pacemaker with ventricular pacing greater than 99% with AV paced QRS 150-176. EF has continued to decline: June 2017 EF 50% Dec 2020 EF 40% Oct 2022 EF 30-35% At time of cardiac cath, Dr. Posey had discussed ICD indication. At this time, likely meets qualification for BiV upgrade due to functional class III dyspnea on exertion and high percent V pacing with QRS greater than 160. Reviewed with patient and he agrees to consult with to discuss. GDMT: his blood pressure is borderlin (more content not included)... Normal [employer] Tobacco Screening.on 023 Fall risk assessment a) No falls within the last year -[facility] [employer] DO Work Phone: Tobacco use status [facility] a) Yes [facility] [employer] [employer] DO Work Phone: Tobacco Screening. Yes [facility] [employer] 250 DO Work Phone: Activated partial thrombopla stin time (aPTT) in platelet poor plasma by coagulation aOrdered By: Franck Posey on 11-19-2022 aPTT Coag (PPP) [Time] 28.8 s 25.1-36.5 [facility] Coagulation Profileon 2022 aPTT Coag (Bld) [Time] 28.8 s Normal 25.1-36.5 [facility] Comment on above: Result Comment: PERF ORMED BY: [place] [address] PATHOLOGIST ADVERTISER HAILEY CALDERÓN M.D. Performed By: #### P P #### [facility] [address] [place] [address] INR Coag (PPP) [Relative time] 1.0 {INR} Normal [facility] Comment on above: Result Comment: INR Therapeutic Range A) Pre- and Peroperative OAT started two weeks before surgery. NOT HIP SURGERY: 1.5 - 2.5 HIP SURGERY: 2 - 3 B) Primary and secondary prevention of venous THROMBOSIS: 2 - 3 C) Active venous thrombosis, pulmonary embolism and prevention of recurrent venous thrombosis: 2 - 3 D) Prevention of arterial thromboembolism including patients with mechanical heart valves: 3 - 4.5 Performed By: #### P P #### [facility] [address] [place] [address] [place] PT Coag (PPP) [Time] 12.1 s Normal 9.0-12.9 [facility] Comment on above: Performed By: #### P P #### [facility] [address] [place] [address] [place] INR in Platelet poor plasma by Coagulation assayOrdered By: Franck Posey on 11-19-2022 INR Coag (PPP) [Relative time] 1.0 {INR} [facility] Comment on above: INR Therapeutic Rang e A) Pre- and Peroperative OAT started two weeks before surgery. NOT HIP SURGERY: 1.5 - 2.5 HIP SURGERY: 2 - 3B) Primary and secondary prevention of venous THROMBOSIS: 2 - 3C) Active venous thrombosis, pulmonary embolismand prevention of recurrent venous thrombosis: 2 - 3D) Prevention of arterial thromboembolismincluding patients with mechanical heart valves: 3 - 4.5 Laboratory - CoagulationOrde red By: Franck Posey on 11-19-2022 PT Coag (PPP) [Time] 12.1 s 9.0-12.9 [facility] No Panel Informationon 11-19 28.8\S\28.8 Normal 25.1-36.5 [facility] [employer] 250 DO Work Phone: Comment on above: PERFORMED BY:[facility]ENNIFERJohn [place], [place] [phone] MEDICAL DIRECTORHAILEY CALDERÓN M.D. 1.0\S\1.0 Normal [facility] [employer] 250 DO Work Phone: Comment on above: INR Therapeutic Rang e A) Pre- and Peroperative OAT started two weeks before surgery. NOT HIP SURGERY: 1.5 - 2.5 HIP SURGERY: 2 - 3 B) Primary and secondary prevention of venous THROMBOSIS: 2 - 3 C) Active venous thrombosis, pulmonary embolism and prevention of recurrent venous thrombosis: 2 - 3 D) Prevention of arterial thromboembolism including patients with mechanical heart valves: 3 - 4.5 12.1\S\12.1 Normal 9.0-12.9 [facility] [employer] 250 DO Work Phone: Activated partial thrombopla stin time (aPTT) in platelet poor plasma by coagulation aOrdered By: Franck Posey on 11-13-2022 aPTT Coag (PPP) [Time] 37.0 s 25.1-36.5 [facility] Basophils Auto (Bld) [#/Vol] Ordered By: Franck Posey on 11-13-2022 Basophils (Bld) [#/Vol] 0.1 10*3/uL 0.0-0.2 [facility] Basophils/100 WBC Auto (Bld) Ordered By: Franck Posey on 11-13-2022 Basophils/100 WBC (Bld) 0.6 % . [facility] Blood Urea Nitrogenon 2022 Urea nitrogen [Mass/Vol] 15 mg/dL Normal 10-13 [facility] Comment on above: Performed By: #### C REAT, LYTES, CBC, PP, LIPID, BUN #### [address] Carbon dioxide, total [Moles /volume] in Serum or PlasmaOrdered By: Franck Posey on 11-13-2022 CO2 [Moles/Vol] 28.0 mmol/L 21.0-31.0 [facility] Chloride [Moles/volume] in S radha or PlasmaOrdered By: Franck Posey on 11-13-2022 Chloride [Moles/Vol] 104 mmol/L 98-107 [facility] Cholesterol [Mass/volume] in Serum or PlasmaOrdered By: Franck Posey on 11-13-2022 Cholesterol [Mass/Vol] 104 mg/dL 140-200 [facility] Comment on above: Chol less than 200 m g/dl low riskChol 201-239 mg/dl borderline riskChol 240 mg/dl and greater high risk Cholesterol in LDL Calc [Mas s/Vol]Ordered By: Franck Posey on 11-13-2022 Cholesterol in LDL [Mass/Vol] 47 mg/dL 0-100 [facility] Comment on above: LDL ATP III CLASSIFI CATIONLDL less than 100 mg/dL OptimalLDL 100-129 mg/dL Near or above optimalLDL 130-159 mg/dL Borderline highLDL 160-189 mg/dL HighLDL greater than 189 mg/dL Very high Cholesterol in VLDL Calc [Ma ss/Vol]Ordered By: Franck Posey on 11-13-2022 Cholesterol in VLDL [Mass/Vol] 32 mg/dL [facility] Coagulation Profileon 2022 aPTT Coag (Bld) [Time] 37.0 s High 25.1-36.5 [facility] Comment on above: Result Comment: PERF ORMED BY: [place] [address] PATHOLOGIST ADVERTISER HAILEY CALDERÓN M.D. Performed By: #### C REAT, LYTES, CBC, PP, LIPID, BUN #### [facility] [address] INR Coag (PPP) [Relative time] 2.0 {INR} Normal [facility] Comment on above: Result Comment: INR Therapeutic Range A) Pre- and Peroperative OAT started two weeks before surgery. NOT HIP SURGERY: 1.5 - 2.5 HIP SURGERY: 2 - 3 B) Primary and secondary prevention of venous THROMBOSIS: 2 - 3 C) Active venous thrombosis, pulmonary embolism and prevention of recurrent venous thrombosis: 2 - 3 D) Prevention of arterial thromboembolism including patients with mechanical heart valves: 3 - 4.5 Performed By: #### C REAT, LYTES, CBC, PP, LIPID, BUN #### [facility] [address] PT Coag (PPP) [Time] 22.7 s High 9.0-12.9 [facility] Comment on above: Performed By: #### C REAT, LYTES, CBC, PP, LIPID, BUN #### [facility] [address] Complete Blood Count Auto Di ffon 11-13-2022 Basophils (Bld) [#/Vol] 0.1 10*3/uL Normal 0.0-0.2 [facility] Comment on above: Result Comment: PERF ORMED BY: [facility] [address] [facility] [place] [address] PATHOLOGIST ADVERTISER HAILEY CALDERÓN M.D. Performed By: #### C REAT, LYTES, CBC, PP, LIPID, BUN #### [address] Basophils/100 WBC (Bld) 0.6 % Normal . [facility] Comment on above: Performed By: #### C REAT, LYTES, CBC, PP, LIPID, BUN #### [address] Eosinophils (Bld) [#/Vol] 0.5 10*3/uL High 0.0-0.45 [facility] Comment on above: Performed By: #### C REAT, LYTES, CBC, PP, LIPID, BUN #### [address] Eosinophils/100 WBC (Bld) 5.2 % Normal . [facility] Comment on above: Performed By: #### C REAT, LYTES, CBC, PP, LIPID, BUN #### [address] Erythrocyte distribution width (RBC) [Ratio] 19.5 % High 12.0-14.8 [facility] Comment on above: Performed By: #### C REAT, LYTES, CBC, PP, LIPID, BUN #### [address] Hematocrit (Bld) [Volume fraction] 38.7 % Low 38.8-50.0 [facility] Comment on above: Performed By: #### C REAT, LYTES, CBC, PP, LIPID, BUN #### [address] Hemoglobin (Bld) [Mass/Vol] 12.6 g/dL Low 13.0-17.0 [facility] Comment on above: Performed By: #### C REAT, LYTES, CBC, PP, LIPID, BUN #### [address] Lymphocytes (Bld) [#/Vol] 3.1 10*3/uL Normal 1.00-4.8 [facility] Comment on above: Performed By: #### C REAT, LYTES, CBC, PP, LIPID, BUN #### [address] Lymphocytes/100 WBC (Bld) 35.2 % Normal . [facility] Comment on above: Performed By: #### C REAT, LYTES, CBC, PP, LIPID, BUN #### [address] MCH (RBC) [Entitic mass] 27.0 pg Low 27.5-35.2 [facility] Comment on above: Performed By: #### C REAT, LYTES, CBC, PP, LIPID, BUN #### [address] MCV (RBC) [Entitic vol] 82.6 fL Low 83.5-101 [facility] Comment on above: Performed By: #### C REAT, LYTES, CBC, PP, LIPID, BUN #### [address] Mean Corpuscular HGB Conc 32.6 g/dL Normal 32.5-35.6 [facility] Comment on above: Performed By: #### C REAT, LYTES, CBC, PP, LIPID, BUN #### [address] Monocytes (Bld) [#/Vol] 0.8 10*3/uL Normal 0.0-0.8 [facility] Comment on above: Performed By: #### C REAT, LYTES, CBC, PP, LIPID, BUN #### [address] Monocytes/100 WBC (Bld) 9.4 % Normal . [facility] Comment on above: Performed By: #### C REAT, LYTES, CBC, PP, LIPID, BUN #### [address] Neutrophils (Bld) [#/Vol] 4.4 10*3/uL Normal 1.8-7.7 [facility] Comment on above: Performed By: #### C REAT, LYTES, CBC, PP, LIPID, BUN #### [address] Neutrophils/100 WBC (Bld) 49.6 % Normal . [facility] Comment on above: Performed By: #### C REAT, LYTES, CBC, PP, LIPID, BUN #### [address] NRBC% 0.1 /100{WBC} Normal 0-0.5 [facility] Comment on above: Performed By: #### C REAT, LYTES, CBC, PP, LIPID, BUN #### [address] Platelet mean volume (Bld) [Entitic vol] 9.9 fL Normal 6.6-10.1 [facility] Comment on above: Performed By: #### C REAT, LYTES, CBC, PP, LIPID, BUN #### [address] Platelets (Bld) [#/Vol] 183 10*3/uL Normal 150-450 [facility] Comment on above: Performed By: #### C REAT, LYTES, CBC, PP, LIPID, BUN #### [address] RBC (Bld) [#/Vol] 4.68 10*6/uL Normal 3.90-5.60 [facility] Comment on above: Performed By: #### C REAT, LYTES, CBC, PP, LIPID, BUN #### [address] WBC (Bld) [#/Vol] 8.9 10*3/uL Normal 4.1-10.[address] [facility] Comment on above: Performed By: #### C REAT, LYTES, CBC, PP, LIPID, BUN #### [address] Creatinineon 11-13-2022 Creatinine [Mass/Vol] 1.16 mg/dL Normal 0.70-1.30 [facility] Comment on above: Performed By: #### C REAT, LYTES, CBC, PP, LIPID, BUN #### [facility] [address] [place] [address] [place] GFR/1.73 sq M.predicted MDRD (S/P/Bld) [Vol rate/Area] mL/min/{1.73_m2} Normal [facility] Comment on above: Performed By: #### C REAT, LYTES, CBC, PP, LIPID, BUN #### [facility] [address] Creatinine [Mass/volume] in Serum or PlasmaOrdered By: Franck Posey on 11-13-2022 Creatinine [Mass/Vol] 1.16 mg/dL 0.70-1.30 [facility] ECG 12 lead ECGon 11-13-2022 ECG 12 lead ECG [facility] [place] [address] [place] [address] Electrocardiograph Report Signed Patient: Lesley Quintero MR#: [id number] : 1955 Acct:[id number] Age/Sex: 67 / M ADM Date: 11/13/22 Loc: Room: Type: [facility] Attending Dr: Franck Posey DO Ordering Provider: Franck Posey DO Date of Service: 11/13/22 ECG/ECG 12 lead ECG: [facility] for [facility] Copies to: Test Reason : Blood Pressure : / mmHG Vent. Rate : 073 BPM Atrial Rate : 070 BPM P-R Int : 064 ms QRS Dur : 170 ms QT Int : 488 ms P-R-T Axes : 000 266 105 degrees QTc Int : 537 ms Electronic atrial pacemaker Nonspecific intraventricular block No significant change was found Abnormal ECG When compared with ECG of 16-JUN-2021 22:49, QRS duration has increased T wave inversion less evident in Lateral leads Confirmed by PATY PETERS MD ([place]) on 11/16/2022 6:37:00 PM Referred By: KALPESH Electronically Signed By:PATY PETERS MD Transcribed By: MUS Signed By Paty Peters MD 0 11/16/22 1837 Normal [facility] Electrolyteson 11-13-2022 Anion gap [Moles/Vol] 8.7 mmol/L Normal 6.0-15.0 [facility] Comment on above: Performed By: #### C REAT, LYTES, CBC, PP, LIPID, BUN #### [facility] [address] Chloride [Moles/Vol] 104 mmol/L Normal 98-107 [facility] Comment on above: Performed By: #### C REAT, LYTES, CBC, PP, LIPID, BUN #### [address] CO2 [Moles/Vol] 28.0 mmol/L Normal 21.0-31.0 [facility] Comment on above: Performed By: #### C REAT, LYTES, CBC, PP, LIPID, BUN #### [facility] [address] Potassium [Moles/Vol] 4.7 mmol/L Normal 3.5-5.1 [facility] Comment on above: Performed By: #### C REAT, LYTES, CBC, PP, LIPID, BUN #### [address] Sodium [Moles/Vol] 136 mmol/L Normal 136-[address] [facility] Comment on above: Performed By: #### C REAT, LYTES, CBC, PP, LIPID, BUN #### [address] Eosinophils Auto (Bld) [#/Vo l]Ordered By: Franck Posey on 11-13-2022 Eosinophils (Bld) [#/Vol] 0.5 10*3/uL 0.0-0.45 [facility] Eosinophils/100 WBC Auto (Bl d)Ordered By: Franck Posey on 11-13-2022 Eosinophils/100 WBC (Bld) 5.2 % . [facility] Erythrocyte distribution wid th Auto (RBC) [Ratio]Ordered By: Franck Posey on 11-13-2022 Erythrocyte distribution width (RBC) [Ratio] 19.5 % 12.0-14.8 [facility] Hematocrit Auto (Bld) [Volum e fraction]Ordered By: Franck Posey on 11-13-2022 Hematocrit (Bld) [Volume fraction] 38.7 % 38.8-50.0 [facility] Hemoglobin [Mass/volume] in BloodOrdered By: Franck Posey on 11-13-2022 Hemoglobin (Bld) [Mass/Vol] 12.6 g/dL 13.0-17.0 [facility] INR in Platelet poor plasma by Coagulation assayOrdered By: Franck Posey on 11-13-2022 INR Coag (PPP) [Relative time] 2.0 {INR} [facility] Comment on above: INR Therapeutic Rang e A) Pre- and Peroperative OAT started two weeks before surgery. NOT HIP SURGERY: 1.5 - 2.5 HIP SURGERY: 2 - 3B) Primary and secondary prevention of venous THROMBOSIS: 2 - 3C) Active venous thrombosis, pulmonary embolismand prevention of recurrent venous thrombosis: 2 - 3D) Prevention of arterial thromboembolismincluding patients with mechanical heart valves: 3 - 4.5 Laboratory - Chemistry and C hemistry - challengeon 11-13-2022 Cholesterol [Mass/Vol] 104\S\104 below low threshold 140-200 [facility] [employer] DO Work Phone: Comment on above: Chol less than 200 m g/dl low risk Chol 201-239 mg/dl borderline risk Chol 240 mg/dl and greater high risk Cholesterol in LDL [Mass/Vol] 47\S\47 Normal 0-100 [facility] [employer] 250 DO Work Phone: Comment on above: LDL ATP III CLASSIFI CATION LDL less than 100 mg/dL Optimal LDL 100-129 mg/dL Near or above optimal LDL 130-159 mg/dL Borderline high LDL 160-189 mg/dL High LDL greater than 189 mg/dL Very high Laboratory - CoagulationOrde red By: Franck Posey on 11-13-2022 PT Coag (PPP) [Time] 22.7 s 9.0-12.9 [facility] Leukocytes [#/volume] correc lily for nucleated erythrocytes in Blood by Automated counOrdered By: Franck Posey on 11-13-2022 WBC corrected for nucl RBC Auto (Bld) [#/Vol] 8.9 10*3/uL 4.1-10.5 [facility] Lipid Panelon 11-13-2022 Cholesterol [Mass/Vol] 104 mg/dL Low 140-200 [facility] Comment on above: Result Comment: Chol less than 200 mg/dl low risk Chol 201-239 mg/dl borderline risk Chol 240 mg/dl and greater high risk Performed By: #### C REAT, LYTES, CBC, PP, LIPID, BUN #### [facility] [address] Cholesterol in HDL [Mass/Vol] 24 mg/dL Normal 23-92 [facility] Comment on above: Result Comment: HDL CHOL ATP-III CLASSIFICATION Cardiovascular Risk HDL > or equal to 60 mg/dL LOW HDL < 40 mg/dL HIGH Performed By: #### C REAT, LYTES, CBC, PP, LIPID, BUN #### [facility] [address] Cholesterol.total/Chol esterol in HDL [Mass ratio] 4.3 {ratio} Normal <5.0 [facility] Comment on above: Result Comment: PERF ORMED BY: [place] [address] PATHOLOGIST ADVERTISER HAILEY CALDERÓN M.D. Performed By: #### C REAT, LYTES, CBC, PP, LIPID, BUN #### [address] LDL Cholesterol,Calculated 47 mg/dL Normal 0-100 [facility] Comment on above: Result Comment: LDL ATP III CLASSIFICATION LDL less than 100 mg/dL Optimal LDL 100-129 mg/dL Near or above optimal LDL 130-159 mg/dL Borderline high LDL 160-189 mg/dL High LDL greater than 189 mg/dL Very high Performed By: #### C REAT, LYTES, CBC, PP, LIPID, BUN #### [facility] [address] [place] [address] [place] Triglyceride w/Reflex 164 mg/dL High 0-149 [facility] Comment on above: Result Comment: TRIG ATP III CLASSIFICATION TRIG less than 150 mg/dL Normal TRIG 150-199 mg/dL Borderline high TRIG 200-500 mg/dL High TRIG greater than 500 mg/dL Very high Standard traceable to the Center for Disease Conrtrol and Prevention (CDC) test method. Performed By: #### C REAT, LYTES, CBC, PP, LIPID, BUN #### [facility] [address] VLDL CHOLESTEROL 32 mg/dL Normal [facility] Comment on above: Performed By: #### C REAT, LYTES, CBC, PP, LIPID, BUN #### [facility] [address] Lymphocytes Auto (Bld) [#/Vo l]Ordered By: Franck Posey on 11-13-2022 Lymphocytes (Bld) [#/Vol] 3.1 10*3/uL 1.00-4.8 [facility] Lymphocytes/100 WBC Auto (Bl d)Ordered By: Franck Posey on 11-13-2022 Lymphocytes/100 WBC (Bld) 35.2 % . [facility] MCH Auto (RBC) [Entitic mass ]Ordered By: Franck Posey on 11-13-2022 MCH (RBC) [Entitic mass] 27.0 pg 27.5-35.2 [facility] MCHC Auto (RBC) [Mass/Vol]Or dered By: Franck Posey on 11-13-2022 MCHC (RBC) [Mass/Vol] 32.6 g/dL 32.5-35.6 [facility] MCV Auto (RBC) [Entitic vol] Ordered By: Franck Posey on 11-13-2022 MCV (RBC) [Entitic vol] 82.6 fL 83.5-101 [facility] Monocytes Auto (Bld) [#/Vol] Ordered By: Franck Posey on 11-13-2022 Monocytes (Bld) [#/Vol] 0.8 10*3/uL 0.0-0.8 [facility] Monocytes/100 WBC Auto (Bld) Ordered By: Franck Posey on 08-25-2023 Monocytes/100 WBC (Bld) 9.4 % . [facility] Neutrophils Auto (Bld) [#/Vo l]Ordered By: Franck Posey on 11-13-2022 Neutrophils (Bld) [#/Vol] 4.4 10*3/uL 1.8-7.7 [facility] Neutrophils/100 WBC Auto (Bl d)Ordered By: Franck Posey on 11-13-2022 Neutrophils/100 WBC (Bld) 49.6 % . [facility] No Panel InformationOrdered By: Franck Posey on 11-13-2022 Estimated GFR (CKD-EPI) > 60.0 mL/Min [facility] Creatinine Clearance (Chem N/A [facility] No Panel Informationon 11-13 37.0\S\37.0 above high threshold 25.1-36.5 [facility] [employer] 250 DO Work Phone: Comment on above: PERFORMED BY:[place] [address] [address] [place], [place] [phone] MEDICAL DIRECTORHAILEY CALDERÓN M.D. 2.0\S\2.0 Normal [facility] [employer] DO Work Phone: Comment on above: INR Therapeutic Rang e A) Pre- and Peroperative OAT started two weeks before surgery. NOT HIP SURGERY: 1.5 - 2.5 HIP SURGERY: 2 - 3 B) Primary and secondary prevention of venous THROMBOSIS: 2 - 3 C) Active venous thrombosis, pulmonary embolism and prevention of recurrent venous thrombosis: 2 - 3 D) Prevention of arterial thromboembolism including patients with mechanical heart valves: 3 - 4.5 22.7\S\22.7 above high threshold 9.0-12.9 [facility] [employer] 250 DO Work Phone: 49.6\S\49.6 Normal . [facility] [employer] 250 DO Work Phone: 9.9\S\9.9 Normal 6.6-10.1 [facility] [employer] 250 DO Work Phone: 183\S\183 Normal 150-450 [facility] 250 DO Work Phone: [phone] 19.5\S\19.5 above high threshold 12.0-14.8 [facility] 250 DO Work Phone: [phone] 32.6\S\32.6 Normal 32.5-35.6 [facility] 250 DO Work Phone: [phone] 27.0\S\27.0 below low threshold 27.5-35.2 [facility] 250 DO Work Phone: [phone] 4.4\S\4.4 Normal 1.8-7.7 [facility] 250 DO Work Phone: [phone] 0.1\S\0.1 Normal 0.0-0.2 [facility] 250 DO Work Phone: [phone] Comment on above: PERFORMED BY:[facility] [place], [place] [phone] MEDICAL DIRECTORHAILEY CALDERÓN M.D. 0.6\S\0.6 Normal . [facility] 250 DO Work Phone: [phone] 5.2\S\5.2 Normal . [facility] 250 DO Work Phone: [phone] 9.4\S\9.4 Normal . [facility] 250 DO Work Phone: [phone] 35.2\S\35.2 Normal . [facility] 250 DO Work Phone: [phone] 0.5\S\0.5 above high threshold 0.0-0.45 [facility] 250 DO Work Phone: [phone] 0.8\S\0.8 Normal 0.0-0.8 [facility] 250 DO Work Phone: [phone] 3.1\S\3.1 Normal 1.00-4.8 [facility] 250 DO Work Phone: [phone] 82.6\S\82.6 below low threshold 83.5-101 [facility] 250 DO Work Phone: [phone] 38.7\S\38.7 below low threshold 38.8-50.0 [facility] 250 DO Work Phone: [phone] 12.6\S\12.6 below low threshold 13.0-17.0 [facility] 250 DO Work Phone: [phone] 4.68\S\4.68 Normal 3.90-5.60 [facility] 250 DO Work Phone: 8.9\S\8.9 Normal 4.1-10.5 [facility] 250 DO Work Phone: 8.7\S\8.7 Normal 6.0-15.0 [facility] 250 DO Work Phone: 28.0\S\28.0 Normal 21.0-31.0 [facility] 250 DO Work Phone: 104\S\104 Normal 98-107 [facility] 250 DO Work Phone: 4.7\S\4.7 Normal 3.5-5.1 [facility] 250 DO Work Phone: [phone] 136\S\136 Normal 136-145 [facility] 250 DO Work Phone: [phone] 15\S\15 Normal 7-25 [facility] 250 DO Work Phone: > 60.0 Normal [facility] 250 DO Work Phone: [phone] 1.16\S\1.16 Normal 0.70-1.30 [facility] 250 DO Work Phone: 4.3\S\4.3 Normal <5.0 [facility] 250 DO Work Phone: Comment on above: PERFORMED BY:[facility] [place], [place] [phone] MEDICAL DIRECTORHAILEY CALDERÓN M.D. 32\S\32 Normal [facility] 250 DO Work Phone: 164\S\164 above high threshold 0-149 [facility] emily 250 DO Work Phone: Comment on above: TRIG ATP III CLASSIF ICATION TRIG less than 150 mg/dL Normal TRIG 150-199 mg/dL Borderline high TRIG 200-500 mg/dL High TRIG greater than 500 mg/dL Very high Standard traceable to the Center for Disease Conrtrol and Prevention (CDC) test method. 24\S\24 Normal 23-92 [facility] 250 DO Work Phone: Comment on above: HDL CHOL ATP-III CLA SSIFICATION Cardiovascular Risk HDL > or equal to 60 mg/dL LOW HDL < 40 mg/dL HIGH Nucleated erythrocytes [Pres ence] in Blood by Automated countOrdered By: Fracnk Posey on 11-13-2022 Nucleated RBC Auto Ql (Bld) 0.1 /100{WBC} 0-0.5 [facility] Platelet mean volume Auto (B ld) [Entitic vol]Ordered By: Franck Posey on 11-13-2022 Platelet mean volume (Bld) [Entitic vol] 9.9 fL 6.6-10.1 [facility] Platelets Auto (Bld) [#/Vol] Ordered By: Franck Posey on 11-13-2022 Platelets (Bld) [#/Vol] 183 10*3/uL 150-450 [facility] Potassium [Moles/volume] in Serum or PlasmaOrdered By: Franck Posey on 11-13-2022 Potassium [Moles/Vol] 4.7 mmol/L 3.5-5.1 [facility] RBC Auto (Bld) [#/Vol]Ordere d By: Franck Posey on 11-13-2022 RBC (Bld) [#/Vol] 4.68 10*6/uL 3.90-5.60 [facility] Serum or plasma anion gap de terminationOrdered By: Franck Posey on 11-13-2022 Anion gap [Moles/Vol] 8.7 mmol/L 6.0-15.0 [facility] Serum or plasma high density lipoprotein (HDL) cholesterol measurementOrdered By: Franck Posey on 11-13-2022 Cholesterol in HDL [Mass/Vol] 24 mg/dL 23- [facility] Comment on above: HDL CHOL ATP-III CLA SSIFICATION Cardiovascular RiskHDL > or equal to 60 mg/dL LOWHDL < 40 mg/dL HIGH Serum or plasma total choles terol/high density lipoprotein (HDL) cholesterol mass ratOrdered By: Franck Posey on 11-13-2022 Cholesterol.total/Chol esterol in HDL [Mass ratio] 4.3 {ratio} <5.0 [facility] Sodium [Moles/volume] in Ser um or PlasmaOrdered By: Franck Posey on 11-13-2022 Sodium [Moles/Vol] 136 mmol/L 136-[address] [facility] Triglyceride [Mass/volume] i n Serum or PlasmaOrdered By: Franck Posey on 11-13-2022 Triglyceride [Mass/Vol] 164 mg/dL 0-149 [facility] Comment on above: TRIG ATP III CLASSIF ICATIONTRIG less than 150 mg/dL NormalTRIG 150-199 mg/dL Borderline highTRIG 200-500 mg/dL High TRIG greater than 500 mg/dL Very highStandard traceable to the Center for Disease Conrtrol and Prevention (CDC) test method. Urea nitrogen [Mass/volume] in Serum or PlasmaOrdered By: Franck Posey on 11-13-2022 Urea nitrogen [Mass/Vol] 15 mg/dL 10-13 [facility] WBC Auto (Bld) [#/Vol]Ordere d By: Franck Posey on 11-13-2022 WBC (Bld) [#/Vol] 8.9 10*3/uL 4.1-10.[address] [facility] Echocardiogramon 10-28-2022 Echocardiography [facility] dus[facility] [address], [address], [place] [address] TRANSTHORACIC ECHOCARDIOGRAM REPORT Patient Name: LESLEY Vann Physician: [id number] Jesus QUINTERO Study Date: 10/28/2022 Referring JESUS POSEY Physician: MRN/PID: [id number] PCP: Lee Segovia Accession/Order#: [id number] Department [facility] Location: [place] Date of : 1955 Fellow: Gender: M Nurse: Romana Jaramillo RN Admit Date: Insulation Board Calender Operator: Anisa White RDCS, RVT Height: 175.26 cm CC Report to: Weight: 107.96 kg Study Type: Echocardiogram BSA: 2.22 m2 Blood Pressure: 128 /70 mmHg Diagnosis/ICD: Z88-Qdbepsjuh (primary) hypertension; I48.0-Paroxysmal atrial fibrillation; R06.02-Shortness of breath Indication: Sick Sinus Syndrome, Pacemaker, CAD, [place] and CABG-2018, COPD, Diabetes, Hyperlipidemia, Tobacco Abuse, Dementia, CVA, Ischemic Cardiomyopathy, Obesity, EMIL Procedure/CPT: Echo Complete w Full Doppler-06460 Study Detail: The following Echo studies were performed: 2D, M-Mode, Doppler and color flow. Optison used as a contrast agent for endocardial border definition. Total contrast used for this procedure was 0.7 mL via IV push. PHYSICIAN INTERPRETATION: Left Ventricle: Left ventricular systolic function is moderately to severely decreased, with an estimated ejection fraction of 30-35%. There is global hypokinesis of the left ventricle with minor regional variations. The left ventricular cavity size is normal. The left ventricular septal wall thickness is severely increased. There is mildly increased left ventricular posterior wall thickness. Spectral Doppler shows a normal pattern of left ventricular diastolic filling. Left Atrium: The left atrium is upper limits of normal in size. Right Ventricle: The right ventricle is mildly enlarged. There is normal right ventricular global systolic function. Right Atrium: The right atrium is upper limits of normal in size. Aortic Valve: The aortic valve is trileaflet. There is no evidence of aortic valve regurgitation. The peak instantaneous gradient of the aortic valve is 5.3 mmHg. The mean gradient of the aortic valve is 3.0 mmHg. Mitral Valve: The mitral valve is normal in structure. There is trace mitral valve regurgitation. Tricuspid Valve: The tricuspid valve is structurally normal. There is trace tricuspid regurgitation. Pulmonic Valve: The pulmonic valve is not well visualized. There is no indication of pulmonic valve regurgitation. Pericardium: There is no pericardial effusion noted. Aorta: The aortic root is normal. CONCLUSIONS: 1. Left ventricular systolic function is moderately to severely decreased with a 30-35% estimated ejection fraction. 2. Severely increased left ventricular septal thickness. 3. There is global hypokinesis of the left ventricle with minor regional variations. QUANTITATIVE DATA SUMMARY: 2D MEASUREMENTS: Normal Ranges: Ao Root d: 3.40 cm (2.0-3.7cm) LAs: 3.70 cm (2.7-4.0cm) RVIDd: 3.30 cm (0.9-3.6cm) IVSd: 2.00 cm (0.6-1.1cm) LVPWd: 1.20 cm (0.6-1.1cm) LVIDd: 4.80 cm (3.9-5.9cm) LVIDs: 4.10 cm LV Mass Index: 150.4 g/m2 LV % FS 14.6 % LV SYSTOLIC FUNCTION BY 2D PLANIMETRY (MOD): Normal Ranges: EF-A4C View: 33.1 % (>=55%) LV DIASTOLIC FUNCTION: Normal Ranges: MV Peak E: 0.46 m/s (0.7-1.2 m/s) MV Peak A: 0.58 m/s (0.42-0.7 m/s) E/A Ratio: 0.80 (1.0-2.2) MV lateral e' 0.07 m/s MV medial e' 0.04 m/s E/e' Ratio: 6.20 (<8.0) MITRAL VALVE: Normal Ranges: MV Vmax: 0.68 m/s (<=1.3m/s) MV peak P.9 mmHg (<5mmHg) MV mean P.0 mmHg (<48mmHg) AORTIC VALVE: Normal Ranges: AoV Vmax: 1.15 m/s (<=1.7m/s) AoV Peak P.3 mmHg (<20mmHg) AoV Mean P.0 mmHg (1.7-11.5mmHg) LVOT Max Wiliam: 0.72 m/s (<=1.1m/s) AoV VTI: 20.60 cm (18-25cm) LVOT VTI: 13.60 cm LVOT Diameter: 2.30 cm (1.8-2.4cm) AoV Area, VTI: 2.74 cm2 (2.5-5.5cm2) AoV Area,Vmax: 2.61 cm2 (2.5-4.5cm2) AoV Dimensionless Index: 0.66 PULMONIC VALVE: Normal Ranges: PV Max Wiliam: 0.6 m/s (0.6-0.9m/s) PV Max P.2 mmHg [id number] Jesus Fregoso MD Electronically signed on 11/02/2022 at 2:48:52 PM Final Normal [place] Aspartate Amino Transferaseo n 08-05-2022 AST [Catalytic activity/Vol] 27 U/L Normal [facility] Comment on above: Performed By: #### C REAT, LYTES, CBC, PP, LIPID, BUN #### [facility] [address] [place] [address] [place] Aspartate aminotransferase [ Enzymatic activity/volume] in Serum or PlasmaOrdered By: Franck Posey on 08-05-2022 AST [Catalytic activity/Vol] 27 U/L 39 [facility] Basic Metabolic Panelon 05 Anion gap [Moles/Vol] 8.7 mmol/L Normal 6.0-15.0 [facility] Comment on above: Performed By: #### C REAT, LYTES, CBC, PP, LIPID, BUN #### [facility] [address] [place] [address] [place] Calcium [Mass/Vol] 8.7 mg/dL Normal 8.6-10.[address] [facility] Comment on above: Performed By: #### C REAT, LYTES, CBC, PP, LIPID, BUN #### [facility] [address] [place] [address] [place] Chloride [Moles/Vol] 106 mmol/L Normal 98-107 [facility] Comment on above: Performed By: #### C REAT, LYTES, CBC, PP, LIPID, BUN #### [facility] [address] CO2 [Moles/Vol] 27.4 mmol/L Normal 21.0-31.0 [facility] Comment on above: Performed By: #### C REAT, LYTES, CBC, PP, LIPID, BUN #### [facility] [address] Creatinine [Mass/Vol] 1.08 mg/dL Normal 0.70-1.30 [facility] Comment on above: Performed By: #### C REAT, LYTES, CBC, PP, LIPID, BUN #### [place] [address] [place] GFR/1.73 sq M.predicted MDRD (S/P/Bld) [Vol rate/Area] mL/min/{1.73_m2} [facility] Comment on above: Performed By: #### C REAT, LYTES, CBC, PP, LIPID, BUN #### [address] Glucose [Mass/Vol] 164 mg/dL High 70-[address] [facility] Comment on above: Result Comment: [place] Glucose Reference Range is dependent on time and content of last meal. Glucose of more than 200 mg/dL in a nonstressed, ambulatory subject supports the diagnosis of Diabetes Mellitus. ADA recommended reference range Performed By: #### C REAT, LYTES, CBC, PP, LIPID, BUN #### [facility] [address] Potassium [Moles/Vol] 5.1 mmol/L Normal 3.5-5.1 [facility] Comment on above: Performed By: #### C REAT, LYTES, CBC, PP, LIPID, BUN #### [facility] [address] Sodium [Moles/Vol] 137 mmol/L Normal 136-[address] [facility] Comment on above: Performed By: #### C REAT, LYTES, CBC, PP, LIPID, BUN #### [facility] [address] [place] [address] [place] Urea nitrogen [Mass/Vol] 15 mg/dL Normal 7-25 [facility] Comment on above: Performed By: #### C REAT, LYTES, CBC, PP, LIPID, BUN #### [facility] [address] [place] [id number] [place] Calcium [Mass/volume] in Ser um or PlasmaOrdered By: Franck Posey on 08-05-2022 Calcium [Mass/Vol] 8.7 mg/dL 8.6-10.[address] [facility] Carbon dioxide, total [Moles /volume] in Serum or PlasmaOrdered By: Franck Posey on 08-05-2022 CO2 [Moles/Vol] 27.4 mmol/L 21.0-31.0 [facility] Chloride [Moles/volume] in S radha or PlasmaOrdered By: Franck Posey on 08-05-2022 Chloride [Moles/Vol] 106 mmol/L 98-107 [facility] Creatinine [Mass/volume] in Serum or PlasmaOrdered By: Franck Posey on 08-05-2022 Creatinine [Mass/Vol] 1.08 mg/dL 0.70-1.30 [facility] Glucose [Mass/volume] in Ser um or PlasmaOrdered By: Franck Posey on 08-05-2022 Glucose [Mass/Vol] 164 mg/dL 70-[address] [facility] Comment on above: ADA recommended refe rence rangeRandom Glucose Reference Range is dependent on time and content of last meal. Glucose of more than 200 mg/dL in a nonstressed, ambulatory subject supports the diagnosis of Diabetes Mellitus. No Panel InformationOrdered By: Franck Posey on 08-05-2022 Estimated GFR (CKD-EPI) > 60.0 mL/Min [facility] Creatinine Clearance (Chem N/A [facility] No Panel Informationon 08-05 > 60.[address] [facility] Work Phone: 8.7\S\8.7 Normal 8.6-10.[address] [facility] Work Phone: 27.4\S\27.4 Normal 21.0-31.[address] [facility] Work Phone: 106\S\106 Normal 98-[address] [facility] Work Phone: 5.1\S\5.1 Normal 3.5-5.[address] [facility] Work Phone: 137\S\137 Normal 136-[address] [facility] Work Phone: 1.08\S\1.08 Normal 0.70-1.[address] [facility] Work Phone: 15\S\15 Normal 7-[address] [facility] Work Phone: 164\S\164 above high threshold 70-[address] [facility] Work Phone: Comment on above: Random Glucose Refer ence Range is dependent on time and content of last meal. Glucose of more than 200 mg/dL in a nonstressed, ambulatory subject supports the diagnosis of Diabetes Mellitus. ADA recommended reference range 27\S\27 Normal 13-[address] [facility] Work Phone: 3.86\S\3.86 Normal 0.45-5.[address] [facility] Work Phone: Comment on above: PERFORMED BY:[facility] [place] [place], [place] [phone] MEDICAL DIRECTORHAILEY CALDERÓN M.D. Potassium [Moles/volume] in Serum or PlasmaOrdered By: Franck Posey on 08-05-2022 Potassium [Moles/Vol] 5.1 mmol/L 3.5-5.1 [facility] Radiologyon 08-05-2022 XR Chest 2 Views Normal [facility] Work Phone: Serum or plasma anion gap de terminationOrdered By: Franck Posey on 08-05-2022 Anion gap [Moles/Vol] 8.7 mmol/L 6.0-15.0 [facility] Sodium [Moles/volume] in Ser um or PlasmaOrdered By: Franck Posey on 08-05-2022 Sodium [Moles/Vol] 137 mmol/L 136-[address] [facility] Thyroid Stimulating Hormoneo n 08-05-2022 TSH Qn 3.86 m[IU]/L Normal 0.45-5.33 [facility] Comment on above: Result Comment: PERF ORMED BY: [place] [address] PATHOLOGIST ADVERTISER HAILEY CALDERÓN M.D. Performed By: #### C REAT, LYTES, CBC, PP, LIPID, BUN #### [address] Thyrotropin [Units/volume] i n Serum or PlasmaOrdered By: Franck Posey on 08-05-2022 TSH Qn 3.86 m[IU]/L 0.45-5.33 [facility] Urea nitrogen [Mass/volume] in Serum or PlasmaOrdered By: Franck Posey on 08-05-2022 Urea nitrogen [Mass/Vol] 15 mg/dL 7-25 [facility] XR chest 2V*on 08-05-2022 XR chest 2V* [facility] [place] [address] [place] [address] XRay Report Signed Patient: Lesley Quintero MR#: [id number] : 1955 Acct:[id number] Age/Sex: 67 / M ADM Date: 08/05/22 Loc: RT Room: Type: [facility] Attending Dr: Franck Posey DO Copies to: Franck Posey DO Ordering Provider: Franck Posey DO Date of Service: 08/05/22 XR/XR chest 2V*: Z79.899, I48.0 Chest 2 views CLINICAL HISTORY: High risk medication use for A. fib COMPARISON: Chest 02/04/2022 FINDINGS: Pacemaker device and sternotomy wires noted. Heart is normal in size. No consolidation pneumothorax pleural effusion or free air. XR/XR chest 2V* IMPRESSION: NO ACUTE CARDIOPULMONARY ABNORMALITY. Impression dictated by: Faustino Neal Jr., D.OJohn Paul08/05/2022 2:27 PM Dictation Location: [place] [address] Transcribed By: BERTHA 08/05/221426 Dictated By: Faustino Neal Jr, DO 08/05/221426 Signed By: 08/05/[address] [facility] Office Visit (Cardiology)on 07-14-2022 Follow-up visit Diagnoses/Problems Assessed Dementia (294.20) (F03.90) Diabetes mellitus (250.00) (E11.9) Paroxysmal atrial fibrillation (427.31) (I48.0) Atherosclerosis of coronary artery of [place] heart without angina pectoris (414.01) (I25.10) H/O sick sinus syndrome (V12.59) (Z86.79) High risk medication use (V58.69) (Z79.899) History of CVA (cerebrovascular accident) (V12.54) (Z86.73) Hyperlipidemia (272.4) (E78.5) Hypertension (401.9) (I10) Ischemic cardiomyopathy (414.8) (I25.5) Class 2 obesity with body mass index (BMI) of 35.0 to 35.9 in adult (278.00,V85.35) (E66.9,Z68.35) Cardiac pacemaker in situ (V45.01) (Z95.0) Current every day smoker (305.1) (F17.200) almost a pack daily Orders Atherosclerosis of coronary artery of [place] heart without angina pectoris Renew: Aspirin EC 81 MG Oral Tablet Delayed Release; TAKE 1 TABLET DAILY Atherosclerosis of coronary artery of [place] heart without angina pectoris, Diabetes mellitus, Hypertension, Ischemic cardiomyopathy, Shortness of breath Basic Metabolic Panel; Status:Active - Retrospective Authorization; Requested for:[id number]; Atherosclerosis of coronary artery of [place] heart without angina pectoris, Hyperlipidemia Renew: Atorvastatin Calcium 80 MG Oral Tablet; TAKE 1 TABLET AT BEDTIME Class 2 obesity with body mass index (BMI) of 35.0 to 35.9 in adult Healthy Weight Tips; Status:Complete - Retrospective Authorization; Done: 14Jul2022 Some eating tips that can help you lose weight.; Status:Complete - Retrospective Authorization; Done: 14Jul2022 Hypertension, Ischemic cardiomyopathy Renew: Losartan Potassium 25 MG Oral Tablet; TAKE 1 TABLET DAILY Hypertension, Ischemic cardiomyopathy, Shortness of breath Renew: Spironolactone 25 MG Oral Tablet; TAKE 1 TABLET DAILY Hypertension, Paroxysmal atrial fibrillation, Shortness of breath Echocardiogram; Status:Hold For - Scheduling,Retrospective Authorization; Requested for:[id number]; Paroxysmal atrial fibrillation Renew: Amiodarone HCl - 200 MG Oral Tablet; Take 1 tablet daily IO EKG Electrocardiogram- 12 Lead; Status:Complete; Done: [id number] SocHx: Current every day smoker Tobacco Use Screening; Status:Complete; Done: [id number] Patient Instructions Please bring all medicines, vitamins, and herbal supplements with you when you come to the office. Prescriptions will not be filled unless you are compliant with your follow up appointments or have a follow up appointment scheduled as per instruction of your physician. Refills should be requested at the time of your visit. Pacemaker/Defibrillator Routine Follow-up. Keep amio testing as scheduled. Follow up in 5 months in [place], [employer] Echo in 4 months Chief Complaint LESLEY QUINTERO is being seen for an annual follow-up of. Patient is a 67-year-old gentleman returns for follow-up with significant shortness of breath and exertional dyspnea that is noted on today's inspection and examination. His is even complaining about this. He has no angina. He has no hospitalizations or nitrate usage. He has known ASHD, remote [place], history of multivessel CABG x4 in 2018, sleep apnea, paroxysmal atrial fibrillation, currently on high risk medical therapies including amiodarone and warfarin, diabetes mellitus, ongoing tobacco use approximately a pack a day, COPD and pacemaker due to sick sinus syndrome, and history of stroke. Today's ECG reveals AV sequentially paced rhythm with underlying sinus mechanism, Review of his last echocardiogram from 2020 reveals reduced left ventricular function with ejection fraction of 40% He is hemodynamically stable, he is not on complete GDMT per review of his medications given his above-mentioned histories. Recommendations, initiate losartan 25 daily spironolactone 25 daily, echocardiogram in 3 to 4 months to reassess LV functional assessment, follow-up with nurse practitioner thereafterwards, smoking cessation counseling for at least 5 minutes. Surgical History Problems History of Appendectomy History of Brain surgery History of Brain Surgery Denied: History of Complete colonoscopy History of Coronary artery bypass graft History of Ear surgery History of Hemorrhoidectomy History of Knee surgery History of Pacemaker insertion History of Surgery Stent Indications History of Surgery Surgery Excision Of Sublingual Gland History of Tonsillectomy Past Medical History Problems H/O sick sinus syndrome (V12.59) (Z86.79) History of High risk medication use (V58.69) (Z79.899) History of New onset a-fib (427.31) (I48.91) Resolved Date: 16 Apr 2021 Current Meds Medication NameInstruction Amiodarone HCl - 200 MG Oral TabletTake 1 tablet daily Aspirin EC 81 MG Oral Tablet Delayed ReleaseTAKE 1 TABLET DAILY. Atorvastatin Calcium 80 MG Oral TabletTAKE 1 TABLET AT BEDTIME Coumadin 2 MG TABSTAKE 1 TABLET DAILY DIRECTED BY [facility] Famotidine 20 MG Oral TabletTAKE 1 TABLET EVERY (more content not included)... Normal [employer] Tobacco Screening.on 023 Adult depression screening assessment No -[facility] 250 DO Work Phone: Fall risk assessment a) No falls within the last year [facility] 250 DO Work Phone: Tobacco use status [facility] a) Yes [facility] em[facility] 250 DO Work Phone: Tobacco Screening. Yes [facility] emily 250 DO Work Phone: CBC AUTO DIFFon 07-08-2022 BASO # 0.1 103/ul Normal 0.0-0.1 [facility] Comment on above: Performed By: #### B MP, TSH #### [facility] [address] [address] [address] Paola Bradshaw Basophils/100 WBC (Bld) 0.7 % Normal 0.2-2.0 [facility] Comment on above: Performed By: #### B MP, TSH #### [facility] [address] [address] [address] Paola Bradshaw EO # 0.5 103/ul Normal 0.0-0.7 [facility] Comment on above: Performed By: #### B MP, TSH #### [facility] [address] [address] [address] Paola Bradshaw Eosinophils/100 WBC (Bld) 7.3 % Critically high 0.9-7.0 [facility] Comment on above: Performed By: #### B MP, TSH #### [facility] [address] [place] [address] Dr. Paola Bradshaw Erythrocyte distribution width (RBC) [Ratio] 18.6 % Critically high 11.0-15.0 [facility] Comment on above: Performed By: #### B MP, TSH #### [facility] [address] [place] [address] Dr. Paola Bradshaw Hematocrit (Bld) [Volume fraction] 41.1 % Critically low 42.0-54.0 [facility] Comment on above: Performed By: #### B MP, TSH #### [facility] [address] [place] [address] Dr. Paola Bradshaw Hemoglobin (Bld) [Mass/Vol] 12.7 g/dL Critically low 14.0-18.0 [facility] Comment on above: Performed By: #### B MODESTA, TSH #### [facility] [address] [place] [address] Dr. Paola Bradshaw IG # 0.02 10e3/ul Normal 0.00-0.03 [facility] Comment on above: Performed By: #### B MP, TSH #### [facility] [address] [place] [address] Dr. Paola Bradshaw IG % 0.3 % Normal 0.0-0.5 [facility] Comment on above: Performed By: #### B MP, TSH #### [facility] [address] [place] [address] Dr. Paola Bradshaw LYMPH # 2.8 103/ul Normal 1.2-3.8 [facility] Comment on above: Performed By: #### B MP, TSH #### [facility] [address] [place] [address] Dr. Paola Bradshaw Lymphocytes/100 WBC (Bld) 39.5 % Normal 20.5-60.0 [facility] Comment on above: Performed By: #### B MP, TSH #### [facility] [address] [place] [address] Dr. Paola Bradshaw MANUAL DIFF REQ NO Normal [facility] Comment on above: Performed By: #### B MP, TSH #### [facility] [address] [place] [address] Dr. Paola Bradshaw MCH (RBC) [Entitic mass] 25.7 pg Critically low 25.9-34.0 [facility] Comment on above: Performed By: #### B MP, TSH #### [facility] [address] [place] [address] Dr. Paola Bradshaw MCHC (RBC) [Mass/Vol] 30.9 g/dL Normal 29.9-35.2 [facility] Comment on above: Performed By: #### B MP, TSH #### [facility] [address] [place] [address] Dr. Paola Bradshaw MCV (RBC) [Entitic vol] 83.0 fL Normal 80.0-94.0 [facility] Comment on above: Performed By: #### B MP, TSH #### [facility] [address] [place] [address] Dr. aPola Bradshaw MONO # 0.7 103/ul Normal 0.3-0.8 [facility] Comment on above: Performed By: #### B MP, TSH #### [facility] [address] [place] [address] Dr. Paola Bradshaw Monocytes/100 WBC (Bld) 10.1 % Normal 1.7-12.0 [facility] Comment on above: Performed By: #### B MP, TSH #### [facility] [address] [place] [address] Dr. Paola Bradshaw NEUT # 3.0 103/ul Normal 1.4-6.5 [facility] Comment on above: Performed By: #### B MP, TSH #### [facility] [address] [place] [address] Dr. Paola Bradshaw Neutrophils/100 WBC (Bld) 42.1 % Critically low 43.0-75.0 [facility] Comment on above: Performed By: #### B MP, TSH #### [facility] [address] [place] [address] Dr. Paola Bradshaw Platelet mean volume (Bld) [Entitic vol] 11.4 fL Normal 9.5-13.5 [facility] Comment on above: Performed By: #### B MP, TSH #### [facility] [address] [place] [address] Dr. Paola Bradshaw PLT 229 103/ul Normal 150-450 [facility] Comment on above: Performed By: #### B MP, TSH #### [facility] [address] [place] [address] Dr. Paola Bradshaw RBC 4.95 106/ul Normal 4.70-6.10 [facility] Comment on above: Performed By: #### B MP, TSH #### [facility] [address] [place] [address] Dr. Paola Bradshaw WBC 7.1 103/ul Normal 4.0-11.0 [facility] Comment on above: Performed By: #### B MODESTA, TSH #### [facility] [address] [place] [address] Dr. Paola Bradshaw GLYCOHEMOGLOBIN A1Con 2022 ADA RECOMMENDATION SEE BELOW Normal [facility] Comment on above: Result Comment: ADA RECOMMENDED LIMIT 4.0 - 6.0 ADA THERAPEUTIC TARGET < 7.0 ACTION SUGGESTED > 7.0 Performed By: #### A 1C #### [facility] [address] [place] [address] Dr. Paola Bradshaw Glucose [Mass/Vol] 197 mg/dL Normal [facility] Comment on above: Performed By: #### A 1C #### [facility] [address] [place] [address] Dr. Paola Bradshaw HbA1c (Bld) [Mass fraction] 8.5 % Critically high 4.5-6.2 [facility] Comment on above: Performed By: #### A 1C #### [facility] [address] [place] [address] Dr. Paola Bradshaw LIPID PROFILEon 07-08-2022 CHOL-HDL RATIO NORM SEE BELOW Normal [facility] Comment on above: Result Comment: 3.3 - 4.4 LOW RISK 4.4 - 7.1 AVERAGE RISK 7.1 - 11.0 MODERATE RISK >11.0 HIGH RISK Performed By: #### L IPID, BMP, ALT #### [facility] [address] [address] [address] Paola Bradshaw Cholesterol [Mass/Vol] 89 mg/dL Normal <=200 [facility] Comment on above: Performed By: #### L IPID, BMP, ALT #### [facility] [address] [address] [address] Paola Bradshaw Cholesterol in HDL [Mass/Vol] 26 mg/dL Critically low 40-60 [facility] Comment on above: Performed By: #### L IPID, BMP, ALT #### [facility] [address] [address] [address] Paola Bradshaw Cholesterol in LDL [Mass/Vol] 36.0 mg/dL Normal [facility] Comment on above: Performed By: #### L IPID, BMP, ALT #### [facility] [address] [address] [address] Paola Bradshaw Cholesterol.total/Chol esterol in HDL [Mass ratio] 3.4 {ratio} Normal [facility] Comment on above: Performed By: #### L IPID, BMP, ALT #### [facility] [address] [address] [address] Paola Bradshaw HDL NORMAL > or = 60 mg/dl - LO W CARDIOVASCULAR RISK <40 mg/dl - HIGH CARDIOVASCULAR RISK Normal [facility] Comment on above: Performed By: #### L IPID, BMP, ALT #### [facility] [address] [address] [address] Paola Bradshaw LDL CALC NORMAL SEE BELOW Normal [facility] Comment on above: Result Comment: <100 mg/dl OPTIMAL 100 - 129 mg/dl NEAR OR ABOVE OPTIMAL 130 - 159 mg/dl BORDERLINE HIGH 160 - 189 mg/dl HIGH >190 mg/dl VERY HIGH Performed By: #### L IPID, BMP, ALT #### [facility] [address] [address] [address] Paola Bradshaw Triglyceride [Mass/Vol] 135 mg/dL Normal <=150 [facility] Comment on above: Performed By: #### L IPID, BMP, ALT #### [facility] [address] [place] [address] Dr. Paola Bradshaw VLDL CALC 27.0 mg/dL Normal [facility] Comment on above: Performed By: #### L IPID, BMP, ALT #### [facility] [address] [place] [address] Dr. Paola Bradshaw MICROALBUMIN, RAND URon 04-1 mALB 7.4 mg/L Normal <=30.0 [facility] Comment on above: Performed By: #### B MP, TSH #### [facility] [address] [place] [address] Dr. Paola Bradshaw PROF CHEM 8 (BAS METB)on Anion gap [Moles/Vol] 12.0 mmol/L [facility] Comment on above: Performed By: #### L IPID, BMP, ALT #### [facility] [address] [place] [address] Dr. Paola Bradshaw Calcium [Mass/Vol] 8.4 mg/dL Critically low 8.5-10.1 [facility] Comment on above: Performed By: #### L IPID, BMP, ALT #### [facility] [address] [place] [address] Dr. Paola Bradshaw Chloride [Moles/Vol] 106 mmol/L Normal 98-107 [facility] Comment on above: Performed By: #### L IPID, BMP, ALT #### [facility] [address] [place] [address] Dr. Paola Bradshaw CO2 [Moles/Vol] 27.5 mmol/L Normal 21.0-32.0 [facility] Comment on above: Performed By: #### L IPID, BMP, ALT #### [facility] [address] [place] [address] Dr. Paola Bradshaw Creatinine [Mass/Vol] 1.11 mg/dL Normal 0.70-1.30 [facility] Comment on above: Performed By: #### L IPID, BMP, ALT #### [facility] [address] [place], [place] [id number] Dr. Paola Bradshaw EGFR-AF NIGERIEN >60 Normal >=60 [facility] Comment on above: Performed By: #### L IPID, BMP, ALT #### [facility] [address] [address] [address] Paola Bradshaw EGFR-NON AF NIGERIEN >60 Normal >=60 [facility] Comment on above: Performed By: #### L IPID, BMP, ALT #### [facility] [address] [address] [address] Paola Bradshaw Glucose [Mass/Vol] 172 mg/dL Critically high 74-106 [facility] Comment on above: Performed By: #### L IPID, BMP, ALT #### [facility] [address] [place] [address] Dr. Paola Brasdhaw Potassium [Moles/Vol] 4.5 mmol/L Normal 3.5-5.1 [facility] Comment on above: Performed By: #### L IPID, BMP, ALT #### [facility] [address] [place] [address] Dr. Paola Bradshaw Sodium [Moles/Vol] 141 mmol/L Normal 136-145 [facility] Comment on above: Performed By: #### L IPID, BMP, ALT #### [facility] [address] [place] [address] Dr. Paola Bradshaw Urea nitrogen [Mass/Vol] 11.0 mg/dL Normal 7.0-18.0 [facility] Comment on above: Performed By: #### L IPID, BMP, ALT #### [facility] [address] [place] [address] Dr. Paola Bradshaw Urea nitrogen/Creatinine [Mass ratio] 9.9 mg/mg Normal [facility] Comment on above: Performed By: #### L IPID, BMP, ALT #### [facility] [address] [place] [address] Dr. Paola Bradshaw SGPTon 07-08-2022 ALT [Catalytic activity/Vol] 52 U/L Normal 16-63 [facility] Comment on above: Performed By: #### L IPID, BMP, ALT #### [facility] [address] [place], [place] [address] Dr. Paola Bradshaw Falls Screening (Age 18+)on 05-13-2022 Fall risk assessment a) No falls within the last year [facility] emily 250 DO Work Phone: LEVETIRACETAM, SERUM OR PLAS MAon 04-07-2022 Levetiracetam, S 18.2 ug/mL Normal 10.0-40.0 [facility] Comment on above: Performed By: #### K EPPRA #### [facility] [address] [address] [address] Paola Bradshaw GLYCOHEMOGLOBIN A1Con 2022 ADA RECOMMENDATION SEE BELOW Normal [facility] Comment on above: Result Comment: ADA RECOMMENDED LIMIT 4.0 - 6.0 ADA THERAPEUTIC TARGET < 7.0 ACTION SUGGESTED > 7.0 Performed By: #### A 1C #### [facility] [address] [address] [address] Paola Bradshaw Glucose [Mass/Vol] 286 mg/dL Normal [facility] Comment on above: Performed By: #### A 1C #### [facility] [address] [address] [address] Paola Bradshaw HbA1c (Bld) [Mass fraction] 11.6 % Critically high 4.5-6.2 [facility] Comment on above: Performed By: #### A 1C #### [facility] [address] [place] [address] Dr. Paola Bradshaw Creatinine and Glomerular fi ltration rate.predicted panel (S/P/Bld)Ordered By: Franck Posey on 02-04-2022 Creatinine [Mass/Vol] 0.95 mg/dL 0.64-1.27 [facility] Estimated glomerular filtrat ion rate (GFR) non- AmericanOrdered By: Franck Posey on 02-04-2022 GFR/1.73 sq M.predicted among non-blacks MDRD (S/P/Bld) [Vol rate/Area] > 60 mL/Min [facility] No Panel InformationOrdered By: Franck Posey on 02-04-2022 Estimated GFR () > 60 mL/Min [facility] Comment on above: GFR estimated refere nce range: According to KDOQI guidelines, <60 ml/min/1.73m2 is sufficient to diagnose a patient with chronic kidney disease. Pharmacy Creatinine Clearance (Chem N/A [facility] No Panel Informationon 02-04 6.7\S\6.7 Normal 6.0-15.0 -[facility] 250 DO Work Phone: 9.0\S\9.0 Normal 8.2-10.2 -[facility] 250 DO Work Phone: 28.0\S\28.0 Normal 22.0-30.0 -[facility] 250 DO Work Phone: 105\S\105 Normal 95-114 -[facility] 250 DO Work Phone: 4.7\S\4.7 Normal 3.5-5.1 -[facility] emily 250 DO Work Phone: [phone]\S\135 below low threshold 136-146 -[facility] 250 DO Work Phone: > 60 Normal -[facility] 250 DO Work Phone: Comment on above: GFR estimated refere nce range: According to KDOQI guidelines, <60 ml/min/1.73m2 is sufficient to diagnose a patient with chronic kidney disease. 0.95\S\0.95 Normal 0.64-1.27 -[facility] emily 250 DO Work Phone: 11\S\11 Normal 9-23 [facility] 250 DO Work Phone: 238\S\238 above high threshold 70-100 [facility] emily 250 DO Work Phone: Comment on above: Random Glucose Refer ence Range is dependent on time and content of last meal. Glucose of more than 200 mg/dL in a nonstressed, ambulatory subject supports the diagnosis of Diabetes Mellitus. ADA recommended reference range 23\S\23 Normal 10-42 [facility] emily 250 DO Work Phone: 2.80\S\2.80 Normal 0.45-5.33 [facility] emily 250 DO Work Phone: Comment on above: PERFORMED BY:[address] [address] [place] [place], [place] [id number] MEDICAL DIRECTORHAILEY CALDERÓN M.D. Radiologyon 02-04-2022 XR Chest 2 Views Normal [facility] 250 DO Work Phone: Serum or plasma anion gap de terminationOrdered By: Franck Posey on 02-04-2022 Anion gap [Moles/Vol] 6.7 mmol/L 6.0-15.0 [facility] Serum or plasma aspartate am inotransferase measurement (enzymatic activity/volume)Ordered By: Franck Posey on 02-04-2022 AST [Catalytic activity/Vol] 23 U/L 10-42 [facility] Serum or plasma calcium daria urement (mass/volume)Ordered By: Franck Posey on 02-04-2022 Calcium [Mass/Vol] 9.0 mg/dL 8.2-10.[address] [facility] Serum or plasma chloride gisselle surement (moles/volume)Ordered By: Franck Posey on 02-04-2022 Chloride [Moles/Vol] 105 mmol/L 95-114 [facility] Serum or plasma glucose daria urement (mass/volume)Ordered By: Franck Posey on 02-04-2022 Glucose [Mass/Vol] 238 mg/dL 70-[address] [facility] Comment on above: ADA recommended refe rence rangeRandom Glucose Reference Range is dependent on time and content of last meal. Glucose of more than 200 mg/dL in a nonstressed, ambulatory subject supports the diagnosis of Diabetes Mellitus. Serum or plasma potassium me asurement (moles/volume)Ordered By: Franck Posey on 02-04-2022 Potassium [Moles/Vol] 4.7 mmol/L 3.5-5.1 [facility] Serum or plasma sodium measu rement (moles/volume)Ordered By: Franck Posey on 02-04-2022 Sodium [Moles/Vol] 135 mmol/L 136-[address] [facility] Serum or plasma total carbon dioxide measurement (moles/volume)Ordered By: Franck Posey on 02-04-2022 CO2 [Moles/Vol] 28.0 mmol/L 22.0-30.0 [facility] Serum or plasma urea nitroge n measurement (mass/volume)Ordered By: Franck Posey on 02-04-2022 Urea nitrogen [Mass/Vol] 11 mg/dL 9-23 [facility] TSH DL <= 0.005 mIU/L QnOrde red By: Franck Posey on 02-04-2022 TSH Qn 2.80 m[IU]/L 0.45-5.33 [facility] BNPon 11-14-2021 Natriuretic peptide B (Bld) [Mass/Vol] 703.0 pg/mL Normal <=900.0 [facility] Comment on above: Performed By: #### B MODESTA, TSH #### [facility] [address] [place] [address] Dr. Paola Bradshaw PROF CHEM 8 (BAS METB)on Anion gap [Moles/Vol] 11.1 mmol/L Normal [facility] Comment on above: Performed By: #### B MODESTA, TSH #### [facility] [address] [place] [address] Dr. Paola Bradshaw Calcium [Mass/Vol] 8.2 mg/dL Critically low 8.5-10.1 [facility] Comment on above: Performed By: #### B MODESTA, TSH #### [facility] [address] [place] [address] Dr. Paola Bradshaw Chloride [Moles/Vol] 103 mmol/L Normal 98-107 [facility] Comment on above: Performed By: #### B MODESTA, TSH #### [facility] [address] [place] [address] Dr. Paola Bradshaw CO2 [Moles/Vol] 25.3 mmol/L Normal 21.0-32.0 [facility] Comment on above: Performed By: #### B MODESTA, TSH #### [facility] [address] [place] [address] Dr. Paola Bradshaw Creatinine [Mass/Vol] 1.08 mg/dL Normal 0.70-1.30 [facility] Comment on above: Performed By: #### B MODESTA, TSH #### [facility] [address] [address] [address] Paola Bradshaw EGFR-AF NIGERIEN >60 Normal >=60 [facility] Comment on above: Performed By: #### B MODESTA, TSH #### [facility] [address] [place] [address] Dr. Poala Bradshaw EGFR-NON AF NIGERIEN >60 Normal >=60 [facility] Comment on above: Performed By: #### B MODESTA, TSH #### [facility] [address] [place] [address] Dr. Paola Bradshaw Glucose [Mass/Vol] 255 mg/dL Critically high 74-106 T [facility] Comment on above: Performed By: #### B MODESTA, TSH #### [facility] [address] [place] [address] Dr. Paola Bradshaw Potassium [Moles/Vol] 4.4 mmol/L Normal 3.5-5.1 [facility] Comment on above: Performed By: #### B MODESTA, TSH #### [facility] [address] [place] [address] Dr. Paola Bradshaw Sodium [Moles/Vol] 135 mmol/L Critically low 136-145 [facility] Comment on above: Performed By: #### B MODESTA, TSH #### [facility] [address] [place] [address] Dr. Paola Bradshaw Urea nitrogen [Mass/Vol] 12.0 mg/dL Normal 7.0-18.0 [facility] Comment on above: Performed By: #### B MODESTA, TSH #### [facility] [address] [place] [address] Dr. Paola Bradshaw Urea nitrogen/Creatinine [Mass ratio] 11.1 mg/mg Normal [facility] Comment on above: Performed By: #### B MODESTA, TSH #### [facility] [address] [address] [address] Paola Bradshaw XR CHEST 2 Von 11-14-2021 XR CHEST 2 V EXAMINATION: XR CHES T 2 V HISTORY: Heart disease COMPARISON: XR chest 07/20/2015 FINDINGS: LUNGS: No significant pulmonary parenchymal abnormalities. VASCULATURE: No increased pulmonary vasculature. PLEURA: No pneumothorax, effusion, or pleural thickening. CARDIAC: No cardiomegaly or cardiac silhouette abnormality. MEDIASTINUM: Prior sternotomy. No abnormal widening. BONES: No fracture or visible bone lesion. OTHER: Cardiac pacer with intact leads. IMPRESSION: 1. No acute cardiopulmonary process or significant chronic interstitial changes. Electronically authenticated by: GINO SAGASTUME Date: 2021-11-14 16:58 Normal [facility] CBC AUTO DIFFon 10-21-2021 BASO # 0.1 103/ul Normal 0.0-0.1 [facility] Comment on above: Performed By: #### B MODESTA, TSH #### [facility] [address] [address] [address] Paola Bradshaw Basophils/100 WBC (Bld) 0.6 % Normal 0.2-2.0 [facility] Comment on above: Performed By: #### B MODESTA, TSH #### [facility] [address] [place] [address] Dr. Paola Bradshaw EO # 0.4 103/ul Normal 0.0-0.7 [facility] Comment on above: Performed By: #### B MODESTA, TSH #### [facility] [address] [address] [address] Paola Bradshaw Eosinophils/100 WBC (Bld) 4.2 % Normal 0.9-7.0 [facility] Comment on above: Performed By: #### B MODESTA, TSH #### [facility] [address] [address] [address] Paola Bradshaw Erythrocyte distribution width (RBC) [Ratio] 16.4 % Critically high 11.0-15.0 [facility] Comment on above: Performed By: #### B MP, TSH #### [facility] [address] [place] [address] Dr. Paola Bradshaw Hematocrit (Bld) [Volume fraction] 39.7 % Critically low 42.0-54.0 [facility] Comment on above: Performed By: #### B MP, TSH #### [facility] [address] [place] [address] Dr. Paola Bradshaw Hemoglobin (Bld) [Mass/Vol] 12.6 g/dL Critically low 14.0-18.0 [facility] Comment on above: Performed By: #### B MP, TSH #### [facility] [address] [place] [address] Dr. Paola Bradshaw IG # 0.04 10e3/ul Critically high 0.00-0.03 [facility] Comment on above: Performed By: #### B MP, TSH #### [facility] [address] [place] [address] Dr. Paola Bradshaw IG % 0.5 % Normal 0.0-0.5 [facility] Comment on above: Performed By: #### B MP, TSH #### [facility] [address] [place] [address] Dr. Paola Bradshaw LYMPH # 2.5 103/ul Normal 1.2-3.8 [facility] Comment on above: Performed By: #### B MP, TSH #### [facility] [address] [place] [address] Dr. Paola Bradshaw Lymphocytes/100 WBC (Bld) 29.2 % Normal 20.5-60.0 [facility] Comment on above: Performed By: #### B MP, TSH #### [facility] [address] [place] [address] Dr. Paola Bradshaw MANUAL DIFF REQ NO Normal [facility] Comment on above: Performed By: #### B MP, TSH #### [facility] [address] [place] [address] Dr. Paola Bradshaw MCH (RBC) [Entitic mass] 27.3 pg Normal 25.9-34.0 [facility] Comment on above: Performed By: #### B MP, TSH #### [facility] [address] [place] [address] Dr. Paola Bradshaw MCHC (RBC) [Mass/Vol] 31.7 g/dL Normal 29.9-35.2 [facility] Comment on above: Performed By: #### B MP, TSH #### [facility] [address] [place] [address] Dr. Paola Bradshaw MCV (RBC) [Entitic vol] 86.1 fL Normal 80.0-94.0 [facility] Comment on above: Performed By: #### B MP, TSH #### [facility] [address] [place] [address] Dr. Paola Bradshaw MONO # 0.8 103/ul Normal 0.3-0.8 [facility] Comment on above: Performed By: #### B MP, TSH #### [facility] [address] [place] [address] Dr. Paola Bradshaw Monocytes/100 WBC (Bld) 9.8 % Normal 1.7-12.0 [facility] Comment on above: Performed By: #### B MP, TSH #### [facility] [address] [place] [address] Dr. Paola Bradshaw NEUT # 4.8 103/ul Normal 1.4-6.5 [facility] Comment on above: Performed By: #### B MP, TSH #### [facility] [address] [place] [address] Dr. Paola Bradshaw Neutrophils/100 WBC (Bld) 55.7 % Normal 43.0-75.0 [facility] Comment on above: Performed By: #### B MP, TSH #### [facility] [address] [place] [address] Dr. Paola Bradshaw Platelet mean volume (Bld) [Entitic vol] 11.4 fL Normal 9.5-13.5 [facility] Comment on above: Performed By: #### B MP, TSH #### [facility] [address] [place] [address] Dr. Paola Bradshaw PLT 218 103/ul Normal 150-450 [facility] Comment on above: Performed By: #### B MP, TSH #### [facility] [address] [place] [address] Dr. Paola Bradshaw RBC 4.61 106/ul Critically low 4.70-6.10 [facility] Comment on above: Performed By: #### B MP, TSH #### [facility] [address] [place] [address] Dr. Paola Bradshaw WBC 8.5 103/ul Normal 4.0-11.0 [facility] Comment on above: Performed By: #### B MP, TSH #### [facility] [address] [place] [address] Dr. Paola Bradshaw CRPon 10-21-2021 CRP 0.4 mg/dL Normal <=1.0 [facility] Comment on above: Performed By: #### B MP, TSH #### [facility] [address] [place] [address] Dr. Paola Bradshaw SED RATE WESTERGRENon 2021 SED RATE 33 mm/hr Critically high <=20 [facility] Comment on above: Performed By: #### B MP, TSH #### [facility] [address] [place] [address] Dr. Paola Bradshaw CBC AUTO DIFFon 10-08-2021 BASO # 0.1 103/ul Normal 0.0-0.1 [facility] Comment on above: Performed By: #### B MP, TSH #### [facility] [address] [place] [address] Dr. Paola Bradshaw Basophils/100 WBC (Bld) 0.5 % Normal 0.2-2.0 [facility] Comment on above: Performed By: #### B MP, TSH #### [facility] [address] [place] [address] Dr. Paola Bradshaw EO # 0.4 103/ul Normal 0.0-0.7 [facility] Comment on above: Performed By: #### B MP, TSH #### [facility] [address] [place] [address] Dr. Paola Bradshaw Eosinophils/100 WBC (Bld) 4.2 % Normal 0.9-7.0 [facility] Comment on above: Performed By: #### B MODESTA, TSH #### [facility] [address] [place] [address] Dr. Paola Bradshaw Erythrocyte distribution width (RBC) [Ratio] 16.4 % Critically high 11.0-15.0 [facility] Comment on above: Performed By: #### B MODESTA, TSH #### [facility] [address] [place] [address] Dr. Paola Bradshaw Hematocrit (Bld) [Volume fraction] 44.3 % Normal 42.0-54.0 [facility] Comment on above: Performed By: #### B MODESTA, TSH #### [facility] [address] [place] [address] Dr. Paola Bradshaw Hemoglobin (Bld) [Mass/Vol] 14.0 g/dL Normal 14.0-18.0 [facility] Comment on above: Performed By: #### Talita BYERS, TSH #### [facility] [address] [place] [address] Dr. Paola Bradshaw IG # 0.04 10e3/ul Critically high 0.00-0.03 [facility] Comment on above: Performed By: #### B MODESTA, TSH #### [facility] [address] [place] [address] Dr. Paola Bradshaw IG % 0.4 % Normal 0.0-0.5 [facility] Comment on above: Performed By: #### B MODESTA, TSH #### [facility] [address] [place] [address] Dr. Paola Bradshaw LYMPH # 3.0 103/ul Normal 1.2-3.8 [facility] Comment on above: Performed By: #### B MODESTA, TSH #### [facility] [address] [place] [address] Dr. Paola Bradshaw Lymphocytes/100 WBC (Bld) 31.6 % Normal 20.5-60.0 [facility] Comment on above: Performed By: #### B MODESTA, TSH #### [facility] [address] [place] [address] Dr. Paola Bradshaw MANUAL DIFF REQ NO Normal [facility] Comment on above: Performed By: #### B MODESTA, TSH #### [facility] [address] [place] [address] Dr. Paola Bradshaw MCH (RBC) [Entitic mass] 27.2 pg Normal 25.9-34.0 [facility] Comment on above: Performed By: #### B MODESTA, TSH #### [facility] [address] [place] [address] Dr. Paola Bradshaw MCHC (RBC) [Mass/Vol] 31.6 g/dL Normal 29.9-35.2 [facility] Comment on above: Performed By: #### B MODESTA, TSH #### [facility] [address] [place] [address] Dr. Paola Bradshaw MCV (RBC) [Entitic vol] 86.2 fL Normal 80.0-94.0 [facility] Comment on above: Performed By: #### B MODESTA, TSH #### [facility] [address] [place] [address] Dr. Paola Bradshaw MONO # 0.7 103/ul Normal 0.3-0.8 [facility] Comment on above: Performed By: #### B MODESTA, TSH #### [facility] [address] [place] [address] Dr. Paola Bradshaw Monocytes/100 WBC (Bld) 7.6 % Normal 1.7-12.0 [facility] Comment on above: Performed By: #### B MODESTA, TSH #### [facility] [address] [place] [address] Dr. Paola Bradshaw NEUT # 5.3 103/ul Normal 1.4-6.5 [facility] Comment on above: Performed By: #### B MODESTA, TSH #### [facility] [address] [place] [address] Dr. Paola Bradshaw Neutrophils/100 WBC (Bld) 55.7 % Normal 43.0-75.0 [facility] Comment on above: Performed By: #### B MODESTA, TSH #### [facility] [address] [address] [address] Paola Bradshaw Platelet mean volume (Bld) [Entitic vol] 12.2 fL Normal 9.5-13.5 [facility] Comment on above: Performed By: #### B MP, TSH #### [facility] [address] [address] [address] Paola Bradshaw PLT 195 103/ul Normal 150-450 [facility] Comment on above: Performed By: #### B MP, TSH #### [facility] [address] [place] [address] Dr. Paola Bradshaw RBC 5.14 106/ul Normal 4.70-6.10 [facility] Comment on above: Performed By: #### B MP, TSH #### [facility] [address] [place] [address] Dr. Paola Bradshaw WBC 9.6 103/ul Normal 4.0-11.0 [facility] Comment on above: Performed By: #### B MP, TSH #### [facility] [address] [place] [address] Dr. Paola Bradshaw GLYCOHEMOGLOBIN A1Con 2021 ADA RECOMMENDATION SEE BELOW Normal [facility] Comment on above: Result Comment: ADA RECOMMENDED LIMIT 4.0 - 6.0 ADA THERAPEUTIC TARGET < 7.0 ACTION SUGGESTED > 7.0 Performed By: #### B MODESTA, TSH #### [facility] [address] [place] [address] Dr. Paola Bradshaw Glucose [Mass/Vol] 203 mg/dL Normal [facility] Comment on above: Performed By: #### B MP, TSH #### [facility] [address] [place] [address] Dr. Paola Bradshaw HbA1c (Bld) [Mass fraction] 8.7 % Critically high 4.5-6.2 [facility] Comment on above: Performed By: #### B MP, TSH #### [facility] [address] [place] [address] Dr. Paola Bradshaw MICROALBUMIN, RAND URon 07-2 mALB 5.9 mg/L Normal <=30.0 [facility] Comment on above: Performed By: #### B MP, TSH #### [facility] [address] [address] [address] Paola Bradshaw PROF CHEM 8 (BAS METB)on Anion gap [Moles/Vol] 14.1 mmol/L Normal [facility] Comment on above: Performed By: #### B MP, TSH #### [facility] [address] [place] [address] Dr. Paola Bradshaw Calcium [Mass/Vol] 8.8 mg/dL Normal 8.5-10.1 [facility] Comment on above: Performed By: #### B MODESTA, TSH #### [facility] [address] [place] [address] Dr. Paola Bradshaw Chloride [Moles/Vol] 101 mmol/L Normal 98-107 [facility] Comment on above: Performed By: #### B MODESTA, TSH #### [facility] [address] [place] [address] Dr. Paola Bradshaw CO2 [Moles/Vol] 25.6 mmol/L Normal 21.0-32.0 [facility] Comment on above: Performed By: #### B MODESTA, TSH #### [facility] [address] [place] [address] Dr. Paola Bradshaw Creatinine [Mass/Vol] 1.17 mg/dL Normal 0.70-1.30 [facility] Comment on above: Performed By: #### B MODESTA, TSH #### [facility] [address] [place] [address] Dr. Paola Bradshaw EGFR-AF NIGERIEN >60 Normal >=60 [facility] Comment on above: Performed By: #### B MODESTA, TSH #### [facility] [address] [place] [address] Dr. Paola Bradshaw EGFR-NON AF NIGERIEN >60 Normal >=60 [facility] Comment on above: Performed By: #### B MODESTA, TSH #### [facility] [address] [place] [address] Dr. Paola Bradshaw Glucose [Mass/Vol] 379 mg/dL Critically high 74-106 [facility] Comment on above: Performed By: #### B MP, TSH #### [facility] [address] [place] [address] Dr. Paola Bradshaw Potassium [Moles/Vol] 4.7 mmol/L Normal 3.5-5.1 [facility] Comment on above: Performed By: #### B MP, TSH #### [facility] [address] [place] [address] Dr. Paola Bradshaw Sodium [Moles/Vol] 136 mmol/L Normal 136-145 [facility] Comment on above: Performed By: #### B MP, TSH #### [facility] [address] [place] [address] Dr. Paola Bradshaw Urea nitrogen [Mass/Vol] 18.0 mg/dL Normal 7.0-18.0 [facility] Comment on above: Performed By: #### B MP, TSH #### [facility] [address] [place] [address] Dr. Paola Bradshaw Urea nitrogen/Creatinine [Mass ratio] 15.4 mg/mg Normal [facility] Comment on above: Performed By: #### B MP, TSH #### [facility] [address] [place] [address] Dr. Paola Bradshaw TSHon 10-08-2021 TSH 3.026 uIU/mL Normal 0.358-3.74 0 [facility] Comment on above: Performed By: #### B MP, TSH #### [facility] [address] [place] [address] Dr. Paola Bradshaw LEVETIRACETAM, SERUM OR PLAS MAon 09-16-2021 Levetiracetam, S 9.0 ug/mL Critically low 10.0-40.0 [facility] Comment on above: Performed By: #### B MP, TSH #### [facility] [address] [place] [address] Dr. Paola Bradshaw CBC AUTO DIFFon 09-09-2021 BASO # 0.1 103/ul Normal 0.0-0.1 [facility] Comment on above: Performed By: #### B MP, TSH #### [facility] [address] [place] [address] Dr. Paola Bradshaw Basophils/100 WBC (Bld) 0.6 % Normal 0.2-2.0 [facility] Comment on above: Performed By: #### B MP, TSH #### [facility] [address] [place] [address] Dr. Paoal Bradshaw EO # 0.4 103/ul Normal 0.0-0.7 [facility] Comment on above: Performed By: #### B MP, TSH #### [facility] [address] [place] [address] Dr. Paola Bradshaw Eosinophils/100 WBC (Bld) 4.8 % Normal 0.9-7.0 [facility] Comment on above: Performed By: #### B MP, TSH #### [facility] [address] [place] [address] Dr. Paola Bradshaw Erythrocyte distribution width (RBC) [Ratio] 15.2 % Critically high 11.0-15.0 [facility] Comment on above: Performed By: #### B MP, TSH #### [facility] [address] [place] [address] Dr. Paola Bradshaw Hematocrit (Bld) [Volume fraction] 39.6 % Critically low 42.0-54.0 [facility] Comment on above: Performed By: #### B MP, TSH #### [facility] [address] [place] [address] Dr. Paola Bradshaw Hemoglobin (Bld) [Mass/Vol] 12.7 g/dL Critically low 14.0-18.0 [facility] Comment on above: Performed By: #### B MP, TSH #### [facility] [address] [place] [address] Dr. Paola Bradshaw IG # 0.02 10e3/ul Normal 0.00-0.03 [facility] Comment on above: Performed By: #### B MP, TSH #### [facility] [address] [place] [address] Dr. Paola Bradshaw IG % 0.2 % Normal 0.0-0.5 [facility] Comment on above: Performed By: #### B MP, TSH #### [facility] [address] [address] [address] Paola Bradshaw LYMPH # 3.5 103/ul Normal 1.2-3.8 [facility] Comment on above: Performed By: #### B MP, TSH #### [facility] [address] [address] [address] Paola Bradshaw Lymphocytes/100 WBC (Bld) 42.5 % Normal 20.5-60.0 [facility] Comment on above: Performed By: #### B MP, TSH #### [facility] [address] [place] [address] Dr. Paola Bradshaw MANUAL DIFF REQ NO Normal [facility] Comment on above: Performed By: #### B MP, TSH #### [facility] [address] [place] [address] Dr. Paola Bradshaw MCH (RBC) [Entitic mass] 27.5 pg Normal 25.9-34.0 [facility] Comment on above: Performed By: #### B MP, TSH #### [facility] [address] [place] [address] Dr. Paola Bradshaw MCHC (RBC) [Mass/Vol] 32.1 g/dL Normal 29.9-35.2 [facility] Comment on above: Performed By: #### B MP, TSH #### [facility] [address] [place] [address] Dr. Paola Bradshaw MCV (RBC) [Entitic vol] 85.7 fL Normal 80.0-94.0 [facility] Comment on above: Performed By: #### B MP, TSH #### [facility] [address] [place] [address] Dr. Paola Bradshaw MONO # 0.7 103/ul Normal 0.3-0.8 [facility] Comment on above: Performed By: #### B MP, TSH #### [facility] [address] [place] [address] Dr. Paola Bradshaw Monocytes/100 WBC (Bld) 8.5 % Normal 1.7-12.0 [facility] Comment on above: Performed By: #### B MP, TSH #### [facility] [address] [place] [address] Dr. Paola Bradshaw NEUT # 3.6 103/ul Normal 1.4-6.5 [facility] Comment on above: Performed By: #### B MP, TSH #### [facility] [address] [place] [address] Dr. Paola Bradshaw Neutrophils/100 WBC (Bld) 43.4 % Normal 43.0-75.0 [facility] Comment on above: Performed By: #### B MP, TSH #### [facility] [address] [place] [address] Dr. Paola Bradshaw Platelet mean volume (Bld) [Entitic vol] 12.9 fL Normal 9.5-13.5 [facility] Comment on above: Performed By: #### B MP, TSH #### [facility] [address] [place] [address] Dr. Paola Bradshaw PLT 206 103/ul Normal 150-450 [facility] Comment on above: Performed By: #### B MP, TSH #### [facility] [address] [place] [address] Dr. Paola Bradshaw RBC 4.62 106/ul Critically low 4.70-6.10 [facility] Comment on above: Performed By: #### B MP, TSH #### [facility] [address] [place] [address] Dr. Paola Bradshaw WBC 8.3 103/ul Normal 4.0-11.0 [facility] Comment on above: Performed By: #### B MP, TSH #### [facility] [address] [place] [address] Dr. Paola Bradshaw PROF 14(COMP METB)on 022 Albumin [Mass/Vol] 3.4 g/dL Normal 3.4-5.0 [facility] Comment on above: Performed By: #### C MP #### [facility] [address] [place] [address] Dr. Paola Bradshaw Albumin/Globulin [Mass ratio] 1.0 {ratio} Normal [facility] Comment on above: Performed By: #### C MP #### [facility] [address] [place] [address] Dr. Paola Bradshaw ALP [Catalytic activity/Vol] 109 U/L Normal 46-116 [facility] Comment on above: Performed By: #### C MP #### [facility] [address] [address] [address] Paola Bradshaw ALT [Catalytic activity/Vol] 44 U/L Normal 16-63 [facility] Comment on above: Performed By: #### C MP #### [facility] [address] [address] [address] Paola Bradshaw Anion gap [Moles/Vol] 11.4 mmol/L Normal [facility] Comment on above: Performed By: #### C MP #### [facility] [address] [place] [address] Dr. Paola Bradshaw AST [Catalytic activity/Vol] 20 U/L Normal 15-37 [facility] Comment on above: Performed By: #### C MP #### [facility] [address] [address] [address] Paola Bradshaw Bilirubin [Mass/Vol] 0.4 mg/dL Normal 0.2-1.0 [facility] Comment on above: Performed By: #### C MP #### [facility] [address] [place] [address] Dr. Paola Bradshaw Calcium [Mass/Vol] 8.5 mg/dL Normal 8.5-10.1 [facility] Comment on above: Performed By: #### C MP #### [facility] [address] [address] [address] Paola Bradshaw Chloride [Moles/Vol] 103 mmol/L Normal 98-107 [facility] Comment on above: Performed By: #### C MP #### [facility] [address] [place] [address] Dr. Paola Bradshaw CO2 [Moles/Vol] 25.9 mmol/L Normal 21.0-32.0 [facility] Comment on above: Performed By: #### C MP #### [facility] [address] [address] [address] Paola Bradshaw Creatinine [Mass/Vol] 1.14 mg/dL Normal 0.70-1.30 [facility] Comment on above: Performed By: #### C MP #### [facility] [address] [place] [address] Dr. Paola Bradshaw EGFR-AF NIGERIEN >60 Normal >=60 [facility] Comment on above: Performed By: #### C MP #### [facility] [address] [place] [address] Dr. Paola Bradshaw EGFR-NON AF NIGERIEN >60 Normal >=60 [facility] Comment on above: Performed By: #### C MP #### [facility] [address] [place] [address] Dr. Paola Bradshaw Globulin (S) [Mass/Vol] 3.5 g/dL Normal [facility] Comment on above: Performed By: #### C MP #### [facility] [address] [place] [address] Dr. Paola Bradshaw Glucose [Mass/Vol] 308 mg/dL Critically high 74-106 T [facility] Comment on above: Performed By: #### C MP #### [facility] [address] [place] [address] Dr. Paola Bradshaw Potassium [Moles/Vol] 4.3 mmol/L Normal 3.5-5.1 [facility] Comment on above: Performed By: #### C MP #### [facility] [address] [place] [address] Dr. Paola Bradshaw Protein [Mass/Vol] 6.9 g/dL Normal 6.4-8.2 [facility] Comment on above: Performed By: #### C MP #### [facility] [address] [place] [address] Dr. Paola Bradshaw Sodium [Moles/Vol] 136 mmol/L Normal 136-145 [facility] Comment on above: Performed By: #### C MP #### [facility] [address] [place] [address] Dr. Paola Bradshaw Urea nitrogen [Mass/Vol] 18.0 mg/dL Normal 7.0-18.0 [facility] Comment on above: Performed By: #### C MP #### [facility] [address] [place] [address] Dr. Paola Bradshaw Urea nitrogen/Creatinine [Mass ratio] 15.8 mg/mg Normal [facility] Comment on above: Performed By: #### C MP #### [facility] [address] [address] [address] Paola Bradshaw No Panel Informationon 08-19 24.0\S\24.0 Normal 22.0-30.0 [facility] [employer] 250 DO Work Phone: 104\S\104 Normal 95-114 [facility] emily 250 DO Work Phone: 4.7\S\4.7 Normal 3.5-5.1 [facility] emily 250 DO Work Phone: 138\S\138 Normal 136-146 [facility] [employer] emily 250 DO Work Phone: > 60 Normal [facility] [employer] [facility] emily 250 DO Work Phone: Comment on above: GFR estimated refere nce range: According to KDOQI guidelines, <60 ml/min/1.73m2 is sufficient to diagnose a patient with chronic kidney disease. 9.0\S\9.0 Normal 8.2-10.2 [facility] [employer] [facility] emily 250 DO Work Phone: 1.16\S\1.16 Normal 0.64-1.27 [facility] [employer] [facility] emily 250 DO Work Phone: 11\S\11 Normal 9-23 [facility] emily 250 DO Work Phone: [phone] 189\S\189 above high threshold 70-100 [facility] [employer] emily 250 DO Work Phone: Comment on above: Random Glucose Refer ence Range is dependent on time and content of last meal. Glucose of more than 200 mg/dL in a nonstressed, ambulatory subject supports the diagnosis of Diabetes Mellitus. ADA recommended reference range 31\S\31 Normal 10-42 [facility] [employer] emily 250 DO Work Phone: 2.90\S\2.90 Normal 0.45-5.33 [facility] [employer] emily 250 DO Work Phone: Comment on above: PERFORMED BY:[facility] [place], [place] [id number] MEDICAL DIRECTORHAILEY CALDERÓN M.D. Radiologyon 08-19-2021 XR Chest 2 Views Normal [facility] [employer] jimenezy 250 DO Work Phone: No Panel Informationon 06-06 > 60 Normal [facility] [employer] jimenezy 250 DO Work Phone: Comment on above: GFR estimated refere nce range: According to KDOQI guidelines, <60 ml/min/1.73m2 is sufficient to diagnose a patient with chronic kidney disease. 1.05\S\1.05 Normal 0.64-1.27 [facility] [employer] emily 250 DO Work Phone: 17\S\17 Normal 9-23 [facility] [employer] emily 250 DO Work Phone: 289\S\289 above high threshold 70-100 [facility] [employer] emily 250 DO Work Phone: Comment on above: Random Glucose Refer ence Range is dependent on time and content of last meal. Glucose of more than 200 mg/dL in a nonstressed, ambulatory subject supports the diagnosis of Diabetes Mellitus. ADA recommended reference range 9.3\S\9.3 Normal 8.2-10.2 [facility] [employer] emily 250 DO Work Phone: 25.2\S\25.2 Normal 22.0-30.0 [facility] [employer] emily 250 DO Work Phone: 100\S\100 Normal 95-114 [facility] 250 DO Work Phone: 4.3\S\4.3 Normal 3.5-5.1 [facility] emily 250 DO Work Phone: 134\S\134 below low threshold 136-146 [facility] jimenezy 250 DO Work Phone: 22\S\22 Normal 10-42 [facility] jimenezy 250 DO Work Phone: [phone] 5.87\S\5.87 above high threshold 0.45-5.33 [facility] 250 DO Work Phone: Comment on above: PERFORMED BY:[address] [address] [place] [place], [place] [id number] MEDICAL DIRECTORHAILEY CALDERÓN M.D. Radiologyon 06-06-2021 XR Chest 2 Views Normal [facility] Ashley diaz 250 DO Work Phone: Tobacco Screening.on 022 Tobacco use status CPHS b) No [facility] 250 DO Work Phone: Vital Signs Date Time Vital Sign Value Performing Clinician Facility 08-24-2023 12:45-0400 Body height 175.[address] 08-24-2023 12:45-0400 Body mass index (BMI) [Ratio] 35.59 kg/m2 [address] 08-24-2023 12:45-0400 Body weight 109.[address] 08-24-2023 12:45-0400 Diastolic blood pressure 60 mm[Hg] [address] 08-24-2023 12:45-0400 Systolic blood pressure 120 mm[Hg] [address] 08-02-2023 09:55-0400 Body height 176.53 cm [facility] 08-02-2023 09:55-0400 Body mass index (BMI) [Ratio] 35 kg/m2 [facility] 08-02-2023 09:55-0400 Body weight 109.31 kg [facility] 08-02-2023 09:55-0400 Diastolic blood pressure 66 mm[Hg] [facility] 08-02-2023 09:55-0400 Heart rate 79 /min [facility] 08-02-2023 09:55-0400 Respiratory rate 20 /min [facility] 08-02-2023 09:55-0400 Systolic blood pressure 133 mm[Hg] [facility] 07-13-2023 10:23-0400 Diastolic blood pressure 60 mm[Hg] Jesus Posey DO Work Phone: [facility] 07-13-2023 10:23-0400 Systolic blood pressure 90 mm[Hg] Jesus Posey DO Work Phone: [facility] 07-13-2023 10:16-0400 Body height 175.3 cm Jesus Posey DO Work Phone: [facility] 07-13-2023 10:16-0400 Body mass index (BMI) [Ratio] 35.59 kg/m2 Jesus Posey DO Work Phone: [facility] 07-13-2023 10:16-0400 Body weight 109.32 kg Jesus Posey DO Work Phone: [facility] 07-13-2023 10:16-0400 Heart rate 80 /min Jesus Posey DO Work Phone: [facility] 05-21-2023 13:170500 Body height 175.3 cm Carmen Ha MD Work Phone: [facility] 05-21-2023 13:17-0500 Body mass index (BMI) [Ratio] 35.29 kg/m2 Carmen Ha MD Work Phone: [facility] 05-21-2023 13:17-0500 Body weight 108.41 kg Carmen Ha MD Work Phone: [facility] 05-21-2023 13:17-0500 Diastolic blood pressure 78 mm[Hg] Carmen Ha MD Work Phone: [facility] 05-21-2023 13:17-0500 Heart rate 72 /min Carmen Ha MD Work Phone: [facility] 05-21-2023 13:17-0500 Systolic blood pressure 128 mm[Hg] Carmen Ha MD Work Phone: [facility] 05-04-2023 11:53-0500 Body height 176.53 cm DO Lee Ball Work Phone: [facility] 05-04-2023 11:53-0500 Body mass index (BMI) [Ratio] 35.2 kg/m2 DO Lee Ball Work Phone: [facility] 05-04-2023 11:53-0500 Body weight 109.76 kg DO Lee Ball Work Phone: [facility] 05-04-2023 11:53-0500 Diastolic blood pressure 72 mm[Hg] DO Lee Ball Work Phone: [facility] 05-04-2023 11:53-0500 Heart rate 72 /min DO Lee Ball Work Phone: [facility] 05-04-2023 11:53-0500 Respiratory rate 20 /min DO Lee Ball Work Phone: [facility] 05-04-2023 11:53-0500 Systolic blood pressure 131 mm[Hg] DO Lee Ball Work Phone: [facility] 04-14-2023 09:30-0500 Body height 176.53 cm Lee Ball Other [facility] 04-14-2023 09:30-0500 Body mass index (BMI) [Ratio] 34.87 kg/m2 Lee Ball Other [employer] Other 04-14-2023 09:30-0500 Body weight 108.68 kg Lee Ball Other [facility] 04-14-2023 09:30-0500 Diastolic blood pressure 70 mm[Hg] Lee Ball Other [facility] 04-14-2023 09:30-0500 Respiratory rate 20 /min Lee Ball Other [facility] [employer] Other 04-14-2023 09:30-0500 Systolic blood pressure 116 mm[Hg] Lee Ball Other [facility] 2023 11:30-0500 Body height 176.53 cm Lee Ball Other [facility] [employer] Other 2023 11:30-0500 Body mass index (BMI) [Ratio] 34.23 kg/m2 Lee Ball Other [facility] [employer] Other 2023 11:30-0500 Body weight 106.69 kg Lee Ball Other [facility] [employer] Other 2023 11:30-0500 Diastolic blood pressure 53 mm[Hg] Lee Ball Other [employer] Other 2023 11:30-0500 Respiratory rate 16 /min Lee Ball Other [employer] Other 2023 11:30-0500 Systolic blood pressure 92 mm[Hg] Lee Ball Other [employer] Other 01-12-2023 16:22-0400 Body height 175.3 cm Ivania Velazquez APRN-CIRCULATION REPRESENTATIVE Work Phone: [facility] 01-12-2023 16:22-0400 Body mass index (BMI) [Ratio] 33.97 kg/m2 Ivania Velazquez APRN-CIRCULATION REPRESENTATIVE Work Phone: [facility] 01-12-2023 16:22-0400 Body temperature 98.01 [degF] Ivania Velazquez CARE TEAM ASSISTANT-CIRCULATION REPRESENTATIVE Work Phone: [facility] 01-12-2023 16:22-0400 Body weight 104.33 kg Ivania Velazquez CARE TEAM ASSISTANT-CIRCULATION REPRESENTATIVE Work Phone: [facility] 01-12-2023 16:22-0400 Diastolic blood pressure 80 mm[Hg] Ivania Velazquez CARE TEAM ASSISTANT-CIRCULATION REPRESENTATIVE Work Phone: [facility] 01-12-2023 16:22-0400 Heart rate 72 /min Ivania Velazquez CARE TEAM ASSISTANT-CIRCULATION REPRESENTATIVE Work Phone: [facility] 01-12-2023 16:22-0400 Systolic blood pressure 120 mm[Hg] Ivania Velazquez CARE TEAM ASSISTANT-CIRCULATION REPRESENTATIVE Work Phone: [facility] 01-05-2023 11:00-0400 Body height 176.53 cm Lee Ball Other [employer] Other 01-05-2023 11:00-0400 Body mass index (BMI) [Ratio] 33.47 kg/m2 Lee Ball Other [employer] Other 01-05-2023 11:00-0400 Body weight 104.33 kg Lee Ball Other [employer] Other 01-05-2023 11:00-0400 Diastolic blood pressure 68 mm[Hg] Lee Ball Other [employer] Other 01-05-2023 11:00-0400 Respiratory rate 20 /min Lee Ball Other [employer] Other 01-05-2023 11:00-0400 Systolic blood pressure 115 mm[Hg] Lee Ball Other [employer] Other 11-30-2022 10:35-0400 Body height 175.26 cm Lee E Ball Work Phone: [facility] 250 DO Work Phone: 11-30-2022 10:35-0400 Body mass index (BMI) [Ratio] 33.67 kg/m2 Lee E Ball Work Phone: [facility] 250 DO Work Phone: 11-30-2022 10:35-0400 Body surface area Derived from formula 2.18 m2 Lee E Ball Work Phone: [facility] 250 DO Work Phone: 11-30-2022 10:35-0400 Body weight 103.42 kg Lee E Ball Work Phone: [facility] 250 DO Work Phone: 11-30-2022 10:35-0400 Diastolic blood pressure 60 mm[Hg] Lee E Ball Work Phone: [facility] 250 DO Work Phone: 11-30-2022 10:35-0400 Heart rate 59 /min Lee E Ball Work Phone: [facility] 250 DO Work Phone: 11-30-2022 10:35-0400 Systolic blood pressure 122 mm[Hg] Lee E Ball Work Phone: [facility] 250 DO Work Phone: 11-25-2022 11:48-0400 Body height 175.26 cm Lee E Ball Work Phone: [facility] 250 DO Work Phone: 11-25-2022 11:48-0400 Body mass index (BMI) [Ratio] 33.97 kg/m2 Lee E Ball Work Phone: [facility] 250 DO Work Phone: 11-25-2022 11:48-0400 Body surface area Derived from formula 2.19 m2 Lee E Ball Work Phone: [facility] 250 DO Work Phone: 11-25-2022 11:48-0400 Body weight 104.33 kg Lee E Ball Work Phone: [facility] 250 DO Work Phone: 11-25-2022 11:48-0400 Diastolic blood pressure 62 mm[Hg] Lee E Ball Work Phone: [facility] 250 DO Work Phone: 11-25-2022 11:48-0400 Heart rate 70 /min Lee E Ball Work Phone: [facility] 250 DO Work Phone: 11-25-2022 11:48-0400 Systolic blood pressure 104 mm[Hg] Lee E Ball Work Phone: [facility] 250 DO Work Phone: 11-19-2022 16:20-0400 Diastolic blood pressure 86 mm[Hg] DO Lee Ball Work Phone: [facility] 11-19-2022 16:20-0400 Heart rate 70 /min DO Lee Ball Work Phone: [facility] 11-19-2022 16:20-0400 Respiratory rate 16 /min DO Lee Ball Work Phone: [facility] 11-19-2022 16:20-0400 SaO2% (BldA) [Mass fraction] 96 % DO Lee Ball Work Phone: [facility] 11-19-2022 16:20-0400 Systolic blood pressure 144 mm[Hg] DO Lee Ball Work Phone: [facility] 11-19-2022 11:13-0400 Body height 175.26 cm DO Lee Ball Work Phone: [facility] 11-19-2022 11:13-0400 Body temperature 97.1 [degF] DO Lee Ball Work Phone: [facility] 11-19-2022 11:13-0400 Body weight 104.2 kg DO Lee Ball Work Phone: [facility] 10-14-2022 11:00-0400 Body height 176.53 cm Delroy Quinteroley Other [employer] Other 10-14-2022 11:00-0400 Body mass index (BMI) [Ratio] 33.18 kg/m2 Delroy Shani Other [employer] Other 10-14-2022 11:00-0400 Body weight 103.42 kg Delroy Quinteroley Other [employer] Other 09-30-2022 10:00-0400 Body height 176.53 cm Delroy Quinteroley Other [employer] Other 09-30-2022 10:00-0400 Body mass index (BMI) [Ratio] 33.18 kg/m2 Delroy Shani Other [employer] Other 09-30-2022 10:00-0400 Body weight 103.42 kg Delroy Shani Other [employer] Other 09-08-2022 15:00-0400 Body height 176.53 cm Lee Ball Other [employer] Other 09-08-2022 15:00-0400 Body mass index (BMI) [Ratio] 34.06 kg/m2 Lee Ball Other [employer] Other 09-08-2022 15:00-0400 Body weight 106.14 kg Lee Ball Other [facility] [employer] Other 09-08-2022 15:00-0400 Diastolic blood pressure 61 mm[Hg] Lee Ball Other [facility] [employer] Other 09-08-2022 15:00-0400 Respiratory rate 20 /min Lee Ball Other [facility] [employer] Other 09-08-2022 15:00-0400 Systolic blood pressure 98 mm[Hg] Lee Ball Other [facility] [employer] Other 07-14-2022 09:21-0400 Body height 175.26 cm Lee E Ball Work Phone: [facility] 250 DO Work Phone: 07-14-2022 09:21-0400 Body mass index (BMI) [Ratio] 35.15 kg/m2 Lee E Ball Work Phone: [facility] 250 DO Work Phone: 07-14-2022 09:21-0400 Body surface area Derived from formula 2.22 m2 Lee E Ball Work Phone: [facility] [employer] 250 DO Work Phone: 07-14-2022 09:21-0400 Body weight 107.96 kg Lee E Ball Work Phone: [facility] [employer] 250 DO Work Phone: 07-14-2022 09:21-0400 Diastolic blood pressure 64 mm[Hg] Lee E Ball Work Phone: [facility] [employer] 250 DO Work Phone: 07-14-2022 09:21-0400 Heart rate 70 /min Lee E Ball Work Phone: [facility] [employer] 250 DO Work Phone: 07-14-2022 09:21-0400 Systolic blood pressure 122 mm[Hg] Lee Rowell Ball Work Phone: [facility] 250 DO Work Phone: 05-13-2022 11:33-0500 Body height 175.26 cm Lee E Ball Work Phone: [facility] 250 DO Work Phone: 05-13-2022 11:33-0500 Body mass index (BMI) [Ratio] 35.29 kg/m2 Lee Rowell Ball Work Phone: [facility] 250 DO Work Phone: 05-13-2022 11:33-0500 Body surface area Derived from formula 2.23 m2 Lee Rowell Ball Work Phone: [facility] 250 DO Work Phone: 05-13-2022 11:33-0500 Body weight 108.41 kg Lee Rowell Ball Work Phone: [facility] 250 DO Work Phone: 05-13-2022 11:33-0500 Diastolic blood pressure 72 mm[Hg] Lee Rowell Ball Work Phone: [facility] 250 DO Work Phone: 05-13-2022 11:33-0500 Heart rate 70 /min Lee Rowell Ball Work Phone: [facility] 250 DO Work Phone: 05-13-2022 11:33-0500 Systolic blood pressure 134 mm[Hg] Lee Rowell Ball Work Phone: [facility] 250 DO Work Phone: 04-08-2022 11:00-0500 Body height 176.53 cm Lee Ball Other [facility] [employer] Other 04-08-2022 11:00-0500 Body mass index (BMI) [Ratio] 33.79 kg/m2 Lee Ball Other [facility] [employer] Other 04-08-2022 11:00-0500 Body weight 105.33 kg Lee Ball Other [facility] [employer] Other 04-08-2022 11:00-0500 Diastolic blood pressure 70 mm[Hg] Lee Ball Other [facility] [employer] Other 04-08-2022 11:00-0500 Respiratory rate 20 /min Lee Ball Other [facility] [employer] Other 04-08-2022 11:00-0500 Systolic blood pressure 122 mm[Hg] Lee Ball Other [facility] [employer] Other 04-16-2021 09:43-0500 Body height 175.26 cm Lee E Ball Work Phone: [facility] 250 DO Work Phone: 04-16-2021 09:43-0500 Body mass index (BMI) [Ratio] 32.93 kg/m2 Lee E Ball Work Phone: [facility] 250 DO Work Phone: 04-16-2021 09:43-0500 Body surface area Derived from formula 2.16 m2 Lee E Ball Work Phone: [facility] [employer] 250 DO Work Phone: 04-16-2021 09:43-0500 Body weight 101.15 kg Lee E Ball Work Phone: [facility] 250 DO Work Phone: 04-16-2021 09:43-0500 Diastolic blood pressure 70 mm[Hg] Lee E Ball Work Phone: [facility] 250 DO Work Phone: 04-16-2021 09:43-0500 Heart rate 71 /min Lee Segovia Work Phone: [facility] 250 DO Work Phone: 04-16-2021 09:43-0500 Systolic blood pressure 115 mm[Hg] Lee Segovia Work Phone: [facility] 250 DO Work Phone: Encounters Encounter Date Encounter Type Care Provider Facility Start: 09-13-2023 End: 09-13-2023 ambulatory IVANIA Rowan [facility] Start: 09-01-2023 End: 09-01-2023 ambulatory YANA ALVAREZ Not Available Start: 08-24-2023 End: 08-24-2023 ambulatory [facility] Start: 08-24-2023 End: 08-24-2023 Subsequent hospital visit by physician Maggie Koroma305 Echo/Vasc 3 [facility] Comment on above: Shortness of breath Start: 08-02-2023 End: 08-02-2023 ambulatory [facility] Work Phone: Start: 08-02-2023 End: 08-02-2023 Patient encounter procedure [facility] Work Phone: Start: 07-13-2023 End: 07-13-2023 Office outpatient visit 40 minutes Jesus Posey DO Work Phone: [facility] Comment on above: Biventricular ICD (i mplantable cardioverter-defibrillator) in place; Ischemic cardiomyopathy; 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; Paroxysmal atrial fibrillation (Multi); S/P CABG x 4; Status post angioplasty; Primary hypertension; Mixed hyperlipidemia; High risk medication use; Chronotropic incompetence with sinus node dysfunction; BMI 35.0-35.9,adult; Current every day smoker Start: 07-13-2023 End: 07-13-2023 ambulatory JESUS POSEY [facility] Start: 05-21-2023 End: 05-21-2023 ambulatory [facility] Start: 05-21-2023 End: 05-21-2023 Office outpatient visit 40 minutes Carmen Ha MD Work Phone: [facility] Comment on above: Shortness of breath (Primary Dx); Cardiac pacemaker in situ; H/O sick sinus syndrome; Biventricular ICD (implantable cardioverter-defibrillator) in place; Ischemic cardiomyopathy; Congestive heart failure, unspecified HF chronicity, unspecified heart failure type (CMS/HCC); LBBB (left bundle branch block); S/P CABG x 4; Atherosclerosis of [place] coronary artery of [place] heart without angina pectoris; Primary hypertension; Mixed hyperlipidemia; BMI 35.0-35.9,adult; Current every day smoker; Encounter for medication review and counseling; Encounter to discuss treatment options Start: 05-21-2023 End: 05-21-2023 ambulatory HOLLI Okeefe [facility] Start: 05-21-2023 End: 05-21-2023 Subsequent hospital visit by physician [facility] [place] Comment on above: Ischemic cardiomyopa thy; Cardiac pacemaker in situ Cardiac pacemaker in situ Start: 05-04-2023 End: 05-04-2023 ambulatory DO Lee Juliette Work Phone: [facility] Work Phone: Start: 05-04-2023 End: 05-04-2023 Patient encounter procedure DO Lee Juliette Work Phone: [facility] Work Phone: Start: 04-14-2023 End: 04-14-2023 ambulatory Lee Segovia Other [employer] Other Start: 04-14-2023 Office outpatient vi sit 15 minutes Lee Segovia [facility] Start: 04-14-2023 End: 04-14-2023 Patient encounter procedure DO Lee Juliette Work Phone: [facility]- Start: 03-31-2023 End: 03-31-2023 ambulatory Lee Segovia Other [employer] Other Start: 03-31-2023 Telephone encounter [facility] Start: 03-24-2023 End: 03-24-2023 ambulatory Lee Segovia Facility:[facility] Start: 03-24-2023 End: 03-24-2023 Patient encounter procedure DO Lee Segovia Work Phone: [facility] Work Phone: Start: 03-17-2023 End: 03-17-2023 ambulatory Lee Segovia Other [employer] Other Start: 03-17-2023 Telephone encounter [facility] Start: 03-10-2023 Telephone encounter [facility] Start: 03-10-2023 End: 03-10-2023 ambulatory JESUS POSEY [employer] Other Start: 03-10-2023 Patient encounter procedure DO Lee Segovia Work Phone: [facility]- Start: 02-21-2023 End: 02-21-2023 ambulatory Lee Segovia Other [employer] Other Start: 02-21-2023 Telephone encounter [facility] Start: 2023 End: 2023 ambulatory Lee Segovia Other [employer] Other Start: 2023 Office outpatient vi sit 25 minutes [facility] Start: 2023 Telephone encounter [facility] Start: 01-26-2023 End: 01-26-2023 ambulatory HOLLI Okeefe [facility] Start: 01-12-2023 End: 01-12-2023 Office outpatient visit 10 minutes Ivania Velazquez CARE TEAM ASSISTANT-CIRCULATION REPRESENTATIVE Work Phone: [facility] Comment on above: Biventricular ICD (i mplantable cardioverter-defibrillator) in place (Primary Dx); Ischemic cardiomyopathy; BMI 33.0-33.9,adult; Current every day smoker; Paroxysmal atrial fibrillation (CMS/HCC); Atherosclerosis of [place] coronary artery of [place] heart without angina pectoris Start: 01-12-2023 End: 01-12-2023 ambulatory IVANIA Donahue [facility] Start: 01-07-2023 Telephone encounter Lee Segovia [facility] Start: 01-07-2023 End: 01-07-2023 ambulatory CARMEN HA [facility] [employer] Other Start: 01-05-2023 End: 01-05-2023 ambulatory Lee Segovia Other [employer] Other Start: 01-05-2023 Office outpatient vi sit 25 minutes Lee Segovia [facility] Start: 12-30-2022 End: 12-30-2022 ambulatory Delroy Mcleod Other [facility] [employer] Other Start: 12-30-2022 Office outpatient vi sit 15 minutes Delroy Mcleod [facility] Start: 12-07-2022 Chart Update Lee Styles l Work Phone: [facility] 250 DO Work Phone: Start: 11-30-2022 Office consultation new/estab patient 80 min Lee Segovia Work Phone: [facility] 320 DO Work Phone: Start: 11-30-2022 ambulatory Carmen Ha Facility:1 [id number] Start: 11-25-2022 Office outpatient vi sit 25 minutes Lee Segovia Work Phone: [facility] 250 DO Work Phone: Start: 11-25-2022 Patient encounter procedure Lee Segovia Work Phone: [facility] 250 DO Work Phone: Start: 11-25-2022 ambulatory Ms. Ivania Velazquez Facility: Start: 11-24-2022 End: 11-24-[address] Lee Segovia Facility:[id number] Start: 11-24-2022 End: 11-24-2022 ambulatory DO Lee Segovia Work Phone: [facility] Work Phone: Start: 11-24-2022 End: 11-24-2022 Patient encounter procedure DO Lee Segovia Work Phone: [facility]-Pacemaker Check Start: 11-19-2022 ambulatory Jesus Posey Facilit [id number] Start: 11-19-2022 Telephone encounter Delroy Skelton [facility] Start: 11-19-2022 End: 11-19-2022 Admission to same day surgery center DO Lee Segovia Work Phone: [facility]-Driller Helper Work Phone: Start: 11-19-2022 End: 11-19-2022 ambulatory DO Lee Segovia Work Phone: [facility] Work Phone: Start: 11-13-2022 End: 11-13-2022 ambulatory Lee Segovia Facility:[facility] Start: 11-13-2022 End: 11-13-2022 Patient encounter procedure DO Lee Segovia Work Phone: [facility]-Pre-Surgical Testing Work Phone: Start: 11-04-2022 Telephone encounter Lee Segovia Work Phone: [facility] 250 DO Work Phone: Start: 11-03-2022 Chart Update Lee Styles l Work Phone: [facility] 250 DO Work Phone: Start: 10-28-2022 ambulatory JESUS POSEY Facilit [id number] Start: 10-14-2022 End: 10-14-2022 ambulatory Delroy Mcleod Other [employer] Other Start: 10-14-2022 Office outpatient vi sit 10 minutes Delroy Mcleod [facility] Start: 09-30-2022 End: 09-30-2022 ambulatory Delroy Mcleod Other [employer] Other Start: 09-30-2022 Office outpatient ne w 30 minutes Delroy Mcleod [facility] Start: 09-30-2022 Telephone encounter Delroy MORTON [facility] Start: 09-17-2022 End: 09-17-2022 ambulatory Lee Ball Other [employer] Other Start: 09-17-2022 Office outpatient vi sit 15 minutes Lee Ball [facility] Start: 09-08-2022 End: 09-08-2022 ambulatory Lee Ball Other [employer] Other Start: 09-08-2022 Office outpatient vi sit 25 minutes Lee Ball [facility] Start: 08-21-2022 End: 08-21-2022 ambulatory Lee Ball Facility:[facility] Start: 08-21-2022 End: 08-21-2022 Patient encounter procedure DO Lee Ball Work Phone: [facility]-Pacemaker Check Start: 08-21-2022 End: 08-21-2022 ambulatory DO Lee Ball Work Phone: [facility] Work Phone: Start: 08-05-2022 End: 08-05-2022 ambulatory Lee Ball Facility:[facility] Start: 08-05-2022 End: 08-05-2022 Patient encounter procedure DO Lee Ball Work Phone: [facility]-Respiratory Therapy Work Phone: Start: 08-03-2022 End: 08-03-2022 ambulatory Lee Ball Other [employer] Other Start: 08-03-2022 Telephone encounter Lee Segovia FP [facility] Start: 07-30-2022 End: 07-30-2022 ambulatory Lee Ball Other [employer] Other Start: 07-30-2022 Telephone encounter Lee Segovia FP [facility] Start: 07-20-2022 End: 08-19-2022 ambulatory SHAIKH Shi NOVOAD Facility:H1 Start: 07-14-2022 Office outpatient vi sit 40 minutes Lee Segovia Work Phone: [facility] 250 DO Work Phone: Start: 07-14-2022 ambulatory Jesus Stone y: Start: 07-09-2022 End: 07-09-2022 ambulatory Lee Segovia Other [facility] [employer] Other Start: 07-09-2022 Telephone encounter Lee Skelton [facility] Start: 07-08-2022 Telephone encounter Lee Skelton [facility] Start: 07-08-2022 End: 07-09-[address] LEE SEGOVIA [facility] [employer] Other Start: 06-25-2022 Rx Renewal Lee lira Work Phone: [facility] 250 DO Work Phone: Start: 06-22-2022 End: 07-17-2022 ambulatory ZARCO Shi NOVOAD Facility:H1 Start: 05-20-2022 End: 06-19-2022 ambulatory ZARCO H JOSEPFranckWAD Facility:H1 Start: 05-18-2022 End: 05-18-2022 ambulatory Lee Segovia Other [facility] [employer] Other Start: 05-18-2022 Telephone encounter Lee Sk[facility]ton [facility] Start: 05-13-2022 Patient encounter procedure Lee Segovia Work Phone: [facility] 250 DO Work Phone: Start: 05-13-2022 ambulatory Ms. Ivania Velazquez Facility: Start: 05-06-2022 End: 05-06-2022 ambulatory Lee Segovia Other [employer] Other Start: 05-06-2022 Telephone encounter [facility] Start: 05-01-2022 End: 05-01-2022 ambulatory Lee Juliette Other [employer] Other Start: 05-01-2022 Telephone encounter Lee Juliette M[facility]ON [facility] Start: 04-22-2022 End: 05-20-2022 ambulatory ZARCO H WINSTON Facility:H1 Start: 04-21-2022 Rx Renewal Lee lira Work Phone: [facility] 250 DO Work Phone: Start: 04-08-2022 End: 04-08-2022 ambulatory Lee Juliette Other [employer] Other Start: 04-08-2022 Office outpatient vi sit 25 minutes Lee Juliette [facility] Start: 04-08-2022 Telephone encounter Lee Segovia SELENE [facility] Start: 04-03-2022 End: 04-04-[address] GINO ZAVALA Facility:H1 Start: 04-02-2022 End: 04-02-2022 ambulatory Lee Segovia Other [employer] Other Start: 04-02-2022 Telephone encounter Lee Segovia [facility] Start: 03-31-2022 End: 04-01-[address] LEE SEGOVIA [facility] [employer] Other Start: 03-31-2022 Telephone encounter Lee Segovia SELENE [facility] Start: 03-30-2022 End: 03-30-2022 ambulatory Lee Segovia Other [facility] [employer] Other Start: 03-30-2022 Telephone encounter Lee Juliette M[facility]ON [facility] Start: 02-19-2022 End: 03-22-2022 ambulatory Shi WINSTON Facility:H1 Start: 02-04-2022 Chart Update Lee lira Work Phone: [facility] 250 DO Work Phone: Start: 02-04-2022 End: 02-04-2022 ambulatory DO Lee Segovia Work Phone: [facility] Work Phone: Start: 02-04-2022 End: 02-04-2022 Patient encounter procedure DO Lee Segovia Work Phone: [facility]-Respiratory Therapy Start: 01-20-2022 End: 02-18-2022 ambulatory SHAIKH Shi MONTERO Facility:H1 Start: 12-21-2021 End: 01-19-2022 ambulatory SHAIKH Shi MONTERO Facility:H1 Start: 12-19-2021 Patient encounter procedure Lee Segovia Work Phone: [facility] 250 DO Work Phone: Start: 11-20-2021 End: 11-20-2021 Patient encounter procedure DO Lee Segovia Work Phone: [facility]-Pacemaker Check Start: 11-20-2021 End: 12-20-2021 ambulatory SHAIKH Shi MONTERO Facility:H1 Start: 11-14-2021 End: 11-15-[address] LEE SEGOVIA Facility:H1 Start: 10-21-2021 End: 10-21-[address] LEE SEGOVIA Facility:H1 Start: 10-20-2021 End: 11-19-2021 ambulatory SHAIKH Shi MONTERO Facility:H1 Start: 10-14-2021 End: 10-14-[address] LEE SEGOVIA Facility:H1 Start: 10-08-2021 End: 10-09-[address] LEE SEGOVIA Facility:H1 Start: 09-23-2021 Rx Renewal Lee lira Work Phone: [facility] 250 DO Work Phone: Start: 09-09-2021 End: 09-10-2021 ambulatory YANA GORE Facility:H1 Start: 08-19-2021 Chart Update Lee lira Work Phone: [facility] 250 DO Work Phone: Start: 06-10-2021 Chart Update Lee lira Work Phone: [facility] 250 DO Work Phone: Start: 04-16-2021 Office outpatient vi sit 15 minutes Lee Segovia Work Phone: [facility] 250 DO Work Phone: Start: 02-28-2021 Rx Renewal Lee Rowell Jensen lira [facility] DO Work Phone: Patient encounter status Katlin Segovia Work Phone: [facility] 250 DO Work Phone: Procedures Date Procedure Procedure Detail Performing Clinician Start: 07-13-2023 Lipid panel IVANIA Osullivan Start: 07-13-2023 Aspartate aminotrans ferase [Enzymatic activity/volume] in Serum or Plasma IVANIA VELAZQUEZ Start: 07-13-2023 Basic metabolic 2000 panel - Serum or Plasma IVANIAHAYLEY VELAZQUEZ Start: 07-13-2023 Thyrotropin [Units/v olume] in Serum or Plasma IVANIA VELAZQUEZ Start: 07-13-2023 XR CHEST 2 VIEWS JARAD POSEY Start: 07-13-2023 ECG 12-LEAD IVANIA Osullivan Start: 07-13-2023 FOLLOW UP IN CARDIOLOGY IVANIA VELAZQUEZ Start: 07-13-2023 Ecg routine ecg w/le ast 12 lds w/i&r Jesus Posey DO Work Phone: Start: 05-21-2023 ECG 12-LEAD IVANIA MATA H Start: 05-21-2023 XR CHEST 2 VIEWS HOLLI MCGUIRE Start: 05-21-2023 CARDIAC DEVICE CHECK - IN CLINIC HOLLI VAZQUEZ Start: 05-21-2023 Ecg routine ecg w/le ast 12 lds w/i&r Carmen Ha MD Work Phone: Start: 05-21-2023 Radiologic exam ches t 2 views Carmen Ha MD Work Phone: Start: 05-21-2023 Prgrmg eval implanta ble in person multi lead dfb Holli Vazquez CARE TEAM ASSISTANT-CIRCULATION REPRESENTATIVE Work Phone: Start: 03-24-2023 Plain chest X-ray DO Be njamin Klood Work Phone: Start: 03-10-2023 Natriuretic peptide B [Mass/volume] in Blood IVANIA VELAZQUEZ Start: 03-10-2023 Basic metabolic 2000 panel - Serum or Plasma IVANIA VELAZQUEZ Start: 01-26-2023 XR CHEST 2 VIEWS HOLLI MCGUIRE Start: 01-07-2023 CARDIAC DEVICE CHECK CHECK - INPATIENT HOLLI VAZQUEZ Start: 01-07-2023 ECG 12-LEAD HOLLI VAZQUEZ Start: 01-07-2023 DISCHARGE PATIENT HOLLI LOVELACE Start: 01-07-2023 TELEMETRY MONITORING WHITNEY VAZQUEZ Start: 01-07-2023 ELECTROPHYSIOLOGY PROCEDURE HOLLI VAZQUEZ Start: 01-07-2023 Glucose [Mass/volume ] in Serum or Plasma HOLLI VAZQUEZ Start: 01-07-2023 Glucose [Mass/volume ] in Serum or Plasma HOLLI VAZQUEZ Start: 01-07-2023 ECG 12-LEAD HOLLI VAZQUEZ Start: 01-07-2023 Glucose [Mass/volume ] in Serum or Plasma HOLLI VAZQUEZ Start: 01-07-2023 XR CHEST 2 VIEWS HOLLI MCGUIRE Start: 01-07-2023 Basic metabolic 1999 panel - Serum or Plasma HOLLI VAZQUEZ Start: 01-07-2023 CBC panel - Blood by Automated count HOLLI VAZQUEZ Start: 01-07-2023 COAGULATION SCREEN HOLLI VAZQUEZ Start: 01-07-2023 PLACE IN OUTPATIENT/HOSPITAL AMBULATORY SURGERY HOLLI VAZQUEZ Start: 12-30-2022 History of coronary artery bypass grafting S/P CABG x 4 Ivania Velazquez CARE TEAM ASSISTANT-CIRCULATION REPRESENTATIVE Work Phone: Start: 11-19-2022 CL [facility] Angio w/grafts DO Lee Klood Work Phone: Start: 10-28-2022 Echocardiography Catrachita Rowell Klood Work Phone: Start: 08-05-2022 Plain chest X-ray DO Be njamin Klood Work Phone: Start: 07-08-[address] WILSON [place] Comment on above: Performed By: #### B MP, TSH #### [facility] [address] [place] [address] Dr. Paola Bradshaw Start: 02-04-2022 Plain chest X-ray DO Be njamin Klood Work Phone: Start: 10-08-[address] WILSON IN [place] Comment on above: Performed By: #### P [facility] #### [facility] [address] [place] [address] Dr. Paola Bradshaw Start: 09-05-2017 Lipid 1996 panel - S radha or Plasma Ivania Velazquez CARE TEAM ASSISTANT-CIRCULATION REPRESENTATIVE Work Phone: Start: 08-14-2016 Screening for malign ant neoplasm of colon Delroy Mcleod Other Start: 08-14-2016 Screening for malign ant neoplasm of prostate Delroy Mcleod Other Start: 02-05-2014 General examination of patient Delroy Mcleod Other Appendectomy Lee Segovia Work Phone: Brain Surgery Lee Styles l Work Phone: Cardiac catheterization Benj ton Segovia Work Phone: Coronary artery bypa ss graft Lee Segovia Work Phone: Hemorrhoidectomy Lee Segovia Work Phone: History of coronary artery bypass grafting S/P CABG x 4 Lee Segovia Work Phone: History of coronary artery bypass grafting H/O coronary artery bypass surgery DO eLe Segovia Work Phone: History of coronary artery bypass grafting S/P CABG x 4 DO Lee Segovia Work Phone: History of coronary artery bypass grafting S/P CABG x 4 Carmen Ha MD Work Phone: History of coronary artery bypass grafting S/P CABG x 4 Jesus Posey DO Work Phone: History of percutane ous transluminal coronary angioplasty History of PTCA DO Lee Segovia Work Phone: Insertion of pacemak er pulse generator Lee Segovia Work Phone: Operation on brain Lee Segovia Work Phone: Operation on the ear Benjami mini Sorin Segovia Work Phone: Operative procedure on knee Lee Segovia Work Phone: Screening for malign ant neoplasm of prostate Delroy Mcleod Other Surgical procedure Lee Segovia Work Phone: Comment on above: Stent Indications; Surgery Excision Of Sublingual Gland; Tonsillectomy Lee lira Work Phone: NEGATED: Highlighted row has not occurred! Total colonoscopy Lee Segovia Work Phone: Plan of Treatment Date Care Activity Detail Author Start: 06-01-2027 DTaP/Tdap/Td Vaccines (2 - Td or Tdap) DTaP/Tdap/Td Vaccines (2 - Td or Tdap) [facility] Start: 03-27-2024 End: 07-12-2024 Complete Pulmonary Function Test Pre/Post Bronchodialator (Spirometry Pre/Post/DLCO/Lung Volumes) Complete Pulmonary Function Test Pre/Post Bronchodialator (Spirometry Pre/Post/DLCO/Lung Volumes) PFT Routine Paroxysmal atrial fibrillation (Multi) High risk medication use Expected: 03/27/2024 (Approximate), Expires: 07/12/2024 [facility] Work Phone: Comment on above: Expected: 03/27/2024 (Approximate), Expi res: 07/12/2024 Start: 01-12-2024 End: 07-12-2024 Aspartate aminotransferase [Enzymatic activity/volume] in Serum or Plasma by With P-5'-P Aspartate Aminotransferase Lab Routine Paroxysmal atrial fibrillation (Multi) High risk medication use Expected: 01/12/2024 (Approximate), Expires: 07/12/2024 [facility] Service Area Work Phone: Comment on above: Expected: 01/12/2024 (Approximate), Expi res: 07/12/2024 Start: 01-12-2024 End: 07-12-2024 Basic metabolic 2000 panel - Serum or Plasma Basic Metabolic Panel Lab Routine Paroxysmal atrial fibrillation (Multi) High risk medication use Expected: 01/12/2024 (Approximate), Expires: 07/12/2024 [facility] Work Phone: Comment on above: Expected: 01/12/2024 (Approximate), Expi res: 07/12/2024 Start: 01-12-2024 End: 07-12-2024 Thyrotropin [Units/volume] in Serum or Plasma Thyroid Stimulating Hormone Lab Routine Paroxysmal atrial fibrillation (Multi) High risk medication use Expected: 01/12/2024 (Approximate), Expires: 07/12/2024 [facility] Work Phone: Comment on above: Expected: 01/12/2024 (Approximate), Expi res: 07/12/2024 Start: 01-12-2024 End: 01-12-2024 Patient encounter procedure 01/12/2024 10:50 AM EDT Office Visit [facility] [address] [place] [address] Jesus Posey DO [address] [place] [address] [facility] Start: 01-12-2024 Subsequent hospital visit by physician 01/12/2024 Hospital Encounter [facility] [address] [place] [address] Paroxysmal atrial fibrillation (Multi); High risk medication use [facility] Comment on above: Paroxysmal atrial fibrillation (Multi); High risk medication use Start: 01-08-2024 Creatinine measurement Creatinine Level [facility] Start: 01-08-2024 Potassium measurement Potassium Level [facility] Start: 11-23-2023 End: 11-23-2023 Patient encounter procedure [facility] Start: 11-21-2023 End: 05-20-2024 Cardiac Device Check - In Clinic Cardiac Device Check - In Clinic Implantable Cardiac Device Routine Biventricular ICD (implantable cardioverter-defibrillato r) in place Expected: 11/21/2023 (Approximate), Expires: 05/20/2024 [facility] Work Phone: Comment on above: Expected: 11/21/2023 (Approximate), Expi res: 05/20/2024 Start: 10-29-2023 Echocardiography Echocardiogram [facility] Start: 09-13-2023 End: 09-13-2023 Patient encounter procedure 09/13/2023 8:30 AM EDT Office Visit [facility] [address] [place] [address] Ivania Velazquez, CARE TEAM ASSISTANT-CIRCULATION REPRESENTATIVE [address] [place] [address] [facility] Start: 08-24-2023 End: 08-24-2023 Patient encounter procedure 08/24/2023 12:00 PM EDT Appointment [facility] [address] [place] [id number] [facility] Start: 08-21-2023 End: 05-20-2025 Heart Transthoracic Transthoracic Echo Complete Echocardiography Routine Shortness of breath Expected: 08/21/2023, Expires: 05/20/2025 [facility] Work Phone: Comment on above: Expected: 08/21/2023, Expires: Start: 07-13-2023 End: 07-13-2023 Patient encounter procedure 07/13/2023 2:10 PM EDT Office Visit [facility] [address] [place] [address] Jesus Posey DO [address] [place] [address] [facility] Start: 07-13-2023 End: 07-12-2024 Lipid 1996 panel - Serum or Plasma Lipid Panel Lab Routine 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 Mixed hyperlipidemia Expected: 07/13/2023 (Approximate), Expires: 07/12/2024 [facility] Work Phone: Comment on above: Expected: 07/13/2023 (Approximate), Expi res: 07/12/2024 Start: 05-21-2023 End: 05-20-2024 XR Chest 2 Views [facility] Service Area Work Phone: Comment on above: Expected: 05/21/2023, Expires: 5 Once for 1 Occurrenc es starting 05/21/2023 until 05/21/2023 Start: 04-13-2023 End: 04-13-2023 Patient encounter procedure 04/13/2023 11:00 AM EST Office Visit [facility] [address] [facility] [address] [place] [phone] Carmen Ha MD [address] [facility] [address] [place], [place] [id number] [facility] Start: 11-30-2022 NPVRFRL, Provider: Carmen Ha, Status: Pen, Time: 10:20 AM NPVRFRL, Provider: Carmen Ha, Status: Pen, Time: 10:[address] [facility] Work Phone: Start: 11-25-2022 FUV, Provider: Ivania Neal, Status: Pen, Time: 11:30 AM FUV, Provider: Ivania Neal, Status: Pen, Time: 11:30 AM -[facility] 250 DO Work Phone: Start: 11-20-2022 COVID-19 Vaccine ( season) COVID-19 Vaccine ( season) [facility] Start: 11-20-2022 Influenza vaccination Influenza Vaccine (#1) [facility] Start: 11-19-2022 End: 11-19-2022 [facility] Start: 11-17-2022 SURGNONUH, Provider: Jesus Posey, Status: Pen, Time: 1:00 PM SURGNONUH, Provider: Jesus Posey, Status: Pen, Time: 1:00 PM [facility] 250 DO Work Phone: Start: 10-28-2022 ECHO, Provider: [facility]TRAS[facility] ,[id number], Status: Pen, Time: 10:45 AM ECHO, Provider: [facility] ,[id number], Status: Pen, Time: 10:45 AM [facility] 250 DO Work Phone: Start: 07-14-2022 FUV, Provider: Jesus Posey, Status: Pen, Time: 9:20 AM FUV, Provider: Jesus Posey, Status: Pen, Time: 9:20 AM [facility] 250 DO Work Phone: Start: 04-15-2022 FUV, Provider: Jesus Posey, Status: Pen, Time: 10:40 AM FUV, Provider: Jesus Posey, Status: Pen, Time: 10:40 AM [facility] 250 DO Work Phone: Start: 2022 Abdominal aortic aneurysm screening Abdominal Aortic Aneurysm (AAA) Screening [facility] Start: 04-16-2021 FUV, Provider: Jesus Posey, Status: Pen, Time: 9:15 AM FUV, Provider: Jesus Posey, Status: Pen, Time: 9:15 AM [facility] 250 DO Work Phone: Start: 10-17-2020 COVID-19 Vaccine (3 - Pfizer series) COVID-19 Vaccine (3 - Pfizer series) [facility] Start: 09-05-2018 Lipid panel Lipid Panel [facility] Start: 12-05-2017 Hemoglobin A1c measurement Diabetes: Hemoglobin A1C [facility] Start: 2017 RSV patients and/or patients aged 60+ years (1 - 1-dose 60+ series) RSV patients and/or patients aged 60+ years (1 - 1-dose 60+ series) [facility] Start: 2007 Screening for malignant neoplasm of lung Lung Cancer Screening [facility] Start: 2007 Zoster Vaccines (1 of 2) Zoster Vaccines (1 of 2) [facility] Start: 02-02-1976 Urine screening for protein Diabetes: Urine Protein Screening [facility] Start: 1975 Hepatitis C screening Hepatitis C Screening [facility] Start: 1967 Diabetic foot examination Diabetes: Foot Exam [facility] Start: 1967 Glaucoma screening Diabetes: Retinopathy Screening [facility] Start: 1957 Annual wellness visit Medicare Initial Physical (IPPE) [facility] Start: 1957 Medicare Annual Wellness Visit Medicare Annual Wellness Visit (AWV) [facility] Start: 1957 Screening for malignant neoplasm of colon [facility] Start: 1957 Thyroid stimulating hormone measurement TSH Level [facility] Cardiac Device Check - In Clinic Cardiac Device Check - In Clinic Implantable Cardiac Device Routine Ischemic cardiomyopathy Cardiac pacemaker in situ 05/21/2023 11:51 AM EST [facility] Service Area Work Phone: End: 11-21-2023 Cardiac Device Check - Remote Cardiac Device Check - Remote Implantable Cardiac Device Routine Biventricular ICD (implantable cardioverter-defibrillato r) in place 52 Occurrences starting 05/21/2023 until 11/21/2023 [facility] Work Phone: Comment on above: 52 Occurrences starting 05/21/2023 until 11/21/2023 Comprehensive metabo lic 2000 panel - Serum or Plasma [facility] Microalbumin [Mass/volume] in Urine [facility] Patient Education Heart failure and atrial fibrillation Quitting smoking [facility] Work Phone: Patient referral [facility] Work Phone: End: 08-24-2023 US Heart Transthoracic [facility] Area Work Phone: Comment on above: Once for 1 Occurrences starting 08/24/19 24 until 08/24/2023 [facility] Immunizations Immunization Date Immunization Notes Care Provider Josep barrett 01-05-2023 influenza virus vaccine, unspecified formulation DO Lee Ball Work Phone: [facility] 01-05-2023 influenza, high dose seasonal, preservative-free Lee Ball Other [employer] Other 07-07-2022 influenza, high dose seasonal, preservative-free Lee Ball Other [employer] Other 03-10-2022 influenza virus vaccine, unspecified formulation DO Lee Ball Work Phone: [facility] 03-10-2022 influenza, high dose seasonal, preservative-free Lee Segovia Other [facility] [employer] Other 02-27-2022 pneumococcal polysaccharide vaccine, 23 valent Lee Segovia Work Phone: [facility] 250 DO Work Phone: 02-20-2022 Fluad Quadrivalent 0 .5 ML Intramuscular Prefilled Syringe Lee Segovia Work Phone: [facility] 250 DO Work Phone: 02-20-2022 influenza virus vaccine, split virus (incl. purified surface antigen) Delryo Mcleod Other [facility] [employer] Other 02-20-2022 influenza virus vaccine, unspecified formulation Ivania Velazquez APRN-CIRCULATION REPRESENTATIVE Work Phone: [facility] 12-30-2020 influenza virus vaccine, split virus (incl. purified surface antigen) Delroy Mcleod Other [facility] [employer] Other 12-30-2020 influenza virus vaccine, unspecified formulation DO Lee Segovia Work Phone: [facility] 12-29-2020 influenza, injectabl e, quadrivalent, preservative free DO Lee Segovia Work Phone: [facility] 12-29-2020 pneumococcal polysaccharide vaccine, 23 valent DO Lee Segovia Work Phone: [facility] 08-22-2020 Pfizer-BioNTech COVID-19 Vacc 30 MCG/0.3ML Intramuscular Suspension Lee E Juliette Work Phone: [facility] 08-03-2020 Pfizer-BioNTech COVID-19 Vacc 30 MCG/0.3ML Intramuscular Suspension Lee E Juliette Work Phone: [facility] 01-16-2020 influenza virus vaccine, split virus (incl. purified surface antigen) Delroy Mcleod Other [facility] Lindsey Shell Other 01-16-2020 influenza virus vaccine, unspecified formulation DO Lee Segvoia Work Phone: [facility] 03-22-2019 influenza virus vaccine, unspecified formulation Lee Segovia Work Phone: [facility] DO Work Phone: 03-22-2019 influenza, seasonal, injectable Ivania Velazquez CARE TEAM ASSISTANT-CIRCULATION REPRESENTATIVE Work Phone: [facility] Work Phone: 03-22-2018 influenza virus vaccine, unspecified formulation Lee Segovia Work Phone: [place] [address] DO Work Phone: 03-22-2018 pneumococcal polysaccharide vaccine, 23 valent Lee Segovia Work Phone: [place] [address] DO Work Phone: 12-20-2017 influenza virus vaccine, unspecified formulation Lee Segovia Work Phone: [place] [address] DO Work Phone: 12-20-2017 pneumococcal conjuga te vaccine, 13 valent Lee Segovia Work Phone: [place] [address] DO Work Phone: 05-31-2017 diphtheria, tetanus toxoids and acellular pertussis vaccine, unspecified formulation Delroy Mcleod Other [facility] 05-31-2017 tetanus and diphther ia toxoids, adsorbed, preservative free, for adult use (5 Lf of tetanus toxoid and 2 Lf of diphtheria toxoid) DO Lee Segovia Work Phone: [facility] 05-31-2017 tetanus toxoid, redu rashida diphtheria toxoid, and acellular pertussis vaccine, adsorbed Lee Segovia Work Phone: [facility] DO Work Phone: 12-21-2016 influenza virus vaccine, unspecified formulation [facility] Work Phone: 12-20-2016 Flu Vaccine - Adult DO Madi alicia Ball Work Phone: [facility] 12-20-2016 influenza, seasonal, injectable DO Lee Segovia Work Phone: [facility] 12-09-2016 influenza, seasonal, injectable Lee E Klood Work Phone: [facility] DO Work Phone: 12-09-2016 tetanus and diphther ia toxoids, adsorbed, preservative free, for adult use (5 Lf of tetanus toxoid and 2 Lf of diphtheria toxoid) Delroy Mcleod Other [facility] 01-07-2015 influenza, seasonal, injectable, preservative free [facility] Work Phone: 01-07-2015 pneumococcal conjuga te vaccine, 13 valent Lee Segovia Work Phone: [facility] DO Work Phone: 01-07-2015 tetanus and diphther ia toxoids, adsorbed, preservative free, for adult use (5 Lf of tetanus toxoid and 2 Lf of diphtheria toxoid) Delroy Mcleod Other [facility] 12-20-2014 influenza virus vaccine, unspecified formulation Lee E Juliette Work Phone: [facility] DO Work Phone: 12-22-2013 influenza virus vaccine, unspecified formulation [facility] E [facility] Work Phone: 01-23-2013 influenza, seasonal, injectable Lee E Ball [facility] Work Phone: 12-02-2011 tetanus and diphther ia toxoids, adsorbed, preservative free, for adult use (5 Lf of tetanus toxoid and 2 Lf of diphtheria toxoid) Delroy Mcleod Other [facility] 03-22-2011 influenza virus vaccine, unspecified formulation Ivania Velazquez CARE TEAM ASSISTANT-CIRCULATION REPRESENTATIVE Work Phone: [facility] Work Phone: 03-22-2010 influenza virus vaccine, unspecified formulation Ivania Velazquez CARE TEAM ASSISTANT-CIRCULATION REPRESENTATIVE Work Phone: [facility] Work Phone: 03-22-2009 influenza virus vaccine, unspecified formulation Ivania Velazquez CARE TEAM ASSISTANT-CIRCULATION REPRESENTATIVE Work Phone: [facility] Work Phone: 03-22-2008 influenza virus vaccine, unspecified formulation Ivania Velazquez CARE TEAM ASSISTANT-CIRCULATION REPRESENTATIVE Work Phone: [facility] Work Phone: influenza virus vaccine, unspecified formulation Lee Segovia Work Phone: [facility] 250 DO Work Phone: Comment on above: 2008 2009 2010 2011 Payers Date Payer Category Payer Medicare [id number] 2022 Self-pay [id number] 1959 Medicare [id number] 1957 Unknown [id number] 2.16.840.1.823379.3.579.2.593 1957 Unknown [id number] 2.16.840.1.251748.3.579.2.593 1957 Unknown [id number] 2.16.840.1.279014.3.579.2.593 1957 Unknown [id number] 2.16.840.1.802317.3.579.2.593 1957 Unknown [id number] 2.16.840.1.292842.3.579.2.593 1957 Unknown [id number] 2.16.840.1.689645.3.579.2.593 1957 Unknown [id number] 2.16.840.1.590577.3.579.2.593 1957 Unknown [id number] 2.16.840.1.537629.3.579.2.593 1957 Unknown [id number] 2.16.840.1.688288.3.579.2.593 1957 Unknown [id number] 2.16.840.1.969018.3.579.2.593 1957 Unknown [id number] 2.16.840.1.008444.3.579.2.593 1957 Unknown [id number] 2.16.840.1.720101.3.579.2.593 1957 Unknown [id number] 2.16.840.1.401058.3.579.2.593 1957 Unknown [id number] 2.16.840.1.581691.3.579.2.593 1957 Unknown [id number] 2.16.840.1.469901.3.579.2.593 1957 Unknown [id number] 2.16.840.1.698658.3.579.2.593 1957 Unknown [id number] 2.16.840.1.045771.3.579.2.593 1957 Unknown [id number] 2.16.840.1.338313.3.579.2.593 1957 Unknown [id number] 2.16.840.1.490319.3.579.2.106 8 1957 Unknown [id number] 2.16.840.1.068150.3.579.2.356 1957 Unknown [id number] 2.16.840.1.987965.3.579.2.356 1957 Unknown [id number] 2.16.840.1.397326.3.579.2.356 1957 Unknown [id number] 2.16.840.1.902254.3.579.2.356 1957 Unknown [id number] 2.16.840.1.195643.3.579.2.356 1957 Unknown [id number] 2.16.840.1.964117.3.579.2.356 1957 Unknown [id number] 2.16.840.1.431872.3.579.2.356 1957 Unknown [id number] 2.16.840.1.531452.3.579.2.125 9 1957 Unknown [id number] 2.16.840.1.660220.3.579.2.124 5 1957 Unknown [id number] 2.16.840.1.967782.3.579.2.124 4 1957 Unknown [id number] 2.16.840.1.984414.3.579.2.124 4 1957 Unknown [id number] 2.16.840.1.243315.3.579.2.124 4 1957 Unknown [id number] 2.16.840.1.578768.3.579.2.124 4 1957 Unknown [id number] 2.16.840.1.760303.3.579.2.124 4 1957 Unknown [id number] 2.16.840.1.136112.3.579.2.124 6 1957 Unknown [id number] 2.16.840.1.625338.3.579.2.124 6 1957 Unknown [id number] 2.16.840.1.342082.3.579.2.124 6 1957 Unknown [id number] 2.16.840.1.494662.3.579.2.124 6 1957 Unknown [id number] 2.16.840.1.474435.3.579.2.124 6 Medicare Medicare [id number] MEDICAL M[employer] O F [place] [employer]IC[employer] ADVANTAGE Unknown [id number] 2.16.840.1.742032.3.579.2.531 Unknown [id number] 2.16.840.1.147161.3.579.2.531 Unknown [id number] 2.16.840.1.901194.3.579.2.531 Unknown [id number] 2.16.840.1.690306.3.579.2.531 Unknown [id number] 2.16.840.1.383223.3.579.2.531 Unknown [id number] 2.16.840.1.507978.3.579.2.531 Social History Date Type Detail Facility Start: 01-07-2023 End: 07-13-2023 Current smoker Current smoker [place] [address] DO Work Phone: Comment on above: 3-4 CUPS OF COFFEE A DAY, 2 CANS OF SODA; once weekly; 3 cigarettes per day ; almost a pack daily; Start: 06-16-2021 End: 11-19-2022 Tobacco smoking status GAIS Smoker (finding) [facility] Start: 1955 Sex Assigned At Male F [facility] Start: 01-12-2023 End: 07-13-2023 Sex Assigned At [employer] Other Start: 01-07-2023 End: 07-13-2023 Tobacco smoking status NHIS Smokes tobacco daily [facility] History of tobacco use Cigarette Smoker [facility] Work Phone: Start: 01-07-2023 End: 07-13-2023 Tobacco use and exposure Smokeless tobacco non-user [facility] Work Phone: Start: 01-12-2023 End: 07-13-2023 Alcohol intake Current drinker of alcohol (finding) [facility] Work Phone: Start: 01-09-2023 Gender identity Identifies as male gender (finding) [facility] Work Phone: Start: 01-02-2023 End: 08-24-2023 Exposure to SARS-CoV-2 (event) Not sure [facility] Start: 05-21-2023 Alcohol Comment occasssional [facility] Work Phone: Medical Equipment Procedure Code Equipment Code Equipment Origin al Text Equipment Identifier Dates Insertion, pacemaker LEAD ISOFLEX OPTIMUS FDA Start: 06-17-2018 Insertion, pacemaker LEAD PACEMAKER TENDRIL STS FDA Start: 06-17-2018 Insertion, pacemaker PACEMAKER ASSURITY MRI RF FDA Start: 06-17-2018 Insertion, pacemaker LEAD ISOFLEX OPTIMUS FDA Start: 06-17-2018 Insertion, pacemaker LEAD PACEMAKER TENDRIL STS FDA Start: 06-17-2018 Insertion, pacemaker PACEMAKER ASSURITY MRI RF FDA Start: 06-17-2018 Insertion, pacemaker LEAD ISOFLEX OPTIMUS FDA Start: 06-17-2018 Insertion, pacemaker LEAD PACEMAKER TENDRIL STS FDA Start: 06-17-2018 Insertion, pacemaker PACEMAKER ASSURITY MRI RF FDA Start: 06-17-2018 Insertion, pacemaker LEAD ISOFLEX OPTIMUS FDA Start: 06-17-2018 Insertion, pacemaker LEAD PACEMAKER TENDRIL STS FDA Start: 06-17-2018 Insertion, pacemaker PACEMAKER ASSURITY MRI RF FDA Start: 06-17-2018 Insertion, pacemaker LEAD ISOFLEX OPTIMUS FDA Start: 06-17-2018 Insertion, pacemaker LEAD PACEMAKER TENDRIL STS FDA Start: 06-17-2018 Insertion, pacemaker PACEMAKER ASSURITY MRI RF FDA Start: 06-17-2018 Insertion, pacemaker LEAD ISOFLEX OPTIMUS FDA Start: 06-17-2018 Insertion, pacemaker LEAD PACEMAKER TENDRIL STS FDA Start: 06-17-2018 Insertion, pacemaker PACEMAKER ASSURITY MRI RF FDA Start: 06-17-2018 Insertion, pacemaker LEAD ISOFLEX OPTIMUS FDA Start: 06-17-2018 Insertion, pacemaker LEAD PACEMAKER TENDRIL STS FDA Start: 06-17-2018 Insertion, pacemaker PACEMAKER ASSURITY MRI RF FDA Start: 06-17-2018 [id number], [id number] Start: 08-03-2022 End: 07-13-2023 Defibrillator, Highway Administrative Engineer-D, [place] Hf - [id number] Start: 01-07-2023 Slitter, Univers al Ii - [id number] Start: 01-07-2023 Durata T, Active Single Coil, Df4, 65cm - [id number] Start: 01-07-2023 Catheter, Attain Command, Mdl 6250v, 45cm - [id number] Start: 01-07-2023 Pacing Lead, Irwin rtet 86cm, Model [id number] Lv, Multi Site, Ventricular - [id number] Start: 01-07-2023 Clinical Notes 03-30-2022 to 07-13-2023 Jesus Posey DO - 07/13/2023 10:10 AM EDTPatient InstructionsCarmen Ha MD - 05/21/2023 12:00 PM ESTPatient Instructions Note Date & Type Note Facility 07-13-2023 History of Present illness Narrative Subjective Lesley Quintero is a 68 y.o. male Chief Complaint Follow-up 68-year-old gentleman returns for 6-month follow-up he is doing well, improved from a respiratory/pulmonary standpoint, unfortunately continues smoking approximately a pack of cigarettes daily and we have continued to parliamentary counsel him extensively on tobacco cessation and offered pharmacologic alternatives. He denies angina, hospitalization, nitrate usage or cardiovascular events or pulmonary events/pneumonia or RSV infections. He has known ASHD, remote [place], history of multivessel CABG x4 in 2018, sleep apnea, paroxysmal atrial fibrillation, currently on high risk medical therapies including amiodarone and warfarin, diabetes mellitus, ongoing tobacco use approximately a pack a day, COPD and pacemaker due to sick sinus syndrome, and history of stroke. He had worsening LV dysfunction this past year as documented by nurse practitioner and electrophysiology hence referred to EP for upgrade from pacemaker to AICD with biventricular pacemaker. He denies any defibrillator discharges. Today's ECG reveals AV sequential pacing with PVCs appears the underlying rhythm is atrial fibrillation with controlled ventricular response He remains on chronic warfarin therapy with no bleeding or thromboembolic events, amiodarone, metoprolol and losartan and high intensity statin. Recommendations, obtain appropriate laboratories including BNP, Chem-6, lipid panel, amiodarone testing, follow-up otherwise in 6 months Review of Systems Respiratory: Positive for shortness of breath. Neurological: Positive for dizziness. All other systems reviewed and are negative. Vitals: 07/13/23 1016 07/13/23 1023 BP: 114/66 90/60 BP Location: Left arm Left arm Patient Position: Sitting Standing Pulse: 80 Weight: 109 kg (241 lb) Height: 1.753 m (5' 9 ) EKG done in office today Objective Physical Exam Constitutional: Appearance: Normal appearance. HENT: Nose: Nose normal. Neck: Vascular: No carotid bruit. Cardiovascular: Rate and Rhythm: Normal rate. Pulses: Normal pulses. Heart sounds: Normal heart sounds. Pulmonary: Effort: Pulmonary effort is normal. Abdominal: General: Bowel sounds are normal. Palpations: Abdomen is soft. Musculoskeletal: General: Normal range of motion. Cervical back: Normal range of motion. Right lower leg: No edema. Left lower leg: No edema. Skin: General: Skin is warm and dry. Neurological: General: No focal deficit present. Mental Status: He is alert. Psychiatric: Mood and Affect: Mood normal. Behavior: Behavior normal. Thought Content: Thought content normal. Judgment: Judgment normal. Allergies Jenny inhibitors Current Medications Current Outpatient Medications: amiodarone (Pacerone) 200 mg tablet, Take 1 tablet (200 mg) by mouth once daily., Disp: 90 tablet, Rfl: 1 aspirin 81 mg EC tablet, Take 1 tablet (81 mg) by mouth once daily., Disp: , Rfl: atorvastatin (Lipitor) 80 mg tablet, Take 1 tablet (80 mg) by mouth once daily at bedtime., Disp: 90 tablet, Rfl: 3 famotidine (Pepcid) 20 mg tablet, Take 1 tablet (20 mg) by mouth 2 times a day., Disp: , Rfl: insulin lispro protamin-lispro (HumaLOG Mix 50-50 KwikPen) 100 unit/mL (50-50) injection, Inject under the skin 2 times a day with meals. Take as directed per insulin instructions., Disp: , Rfl: Levemir FlexPen 100 unit/mL (3 mL) pen, Inject 14 Units under the skin once daily at bedtime., Disp: , Rfl: levETIRAcetam XR (Keppra XR) 750 mg tablet extended release 24 hr 24 hr tablet, Take 1 tablet (750 mg) by mouth 2 times a day., Disp: , Rfl: losartan (Cozaar) 25 mg tablet, Take 1 tablet (25 mg) by mouth once daily., Disp: 30 tablet, Rfl: 11 metFORMIN (Glucophage) 850 mg tablet, Take 1 tablet (850 mg) by mouth 2 times a day with meals., Disp: , Rfl: metoprolol succinate XL (Toprol-XL) 50 mg 24 hr tablet, Take 1 tablet (50 mg) by mouth once daily., Disp: 90 tablet, Rfl: 3 mirtazapine (Remeron) 30 mg tablet, Take 1 tablet (30 mg) by mouth once daily at bedtime., Disp: , Rfl: nitroglycerin (Nitrostat) 0.4 mg SL tablet, Place 1 tablet (0.4 mg) under the tongue every 5 minutes if needed for chest pain., Disp: , Rfl: rOPINIRole (Requip) 0.5 mg tablet, Take 1 tablet (0.5 mg) by mouth once daily at bedtime., Disp: , Rfl: warfarin (Coumadin) 2 mg tablet, Take 1 tablet (2 mg) by mouth see administration instructions. As directed by the [facility] coumadin clinic. Ok to resume at previous dose on 01/09/23, Disp: , Rfl: Assessment/Plan 1. Biventricular ICD (implantable cardioverter-defibrillator) in place Follow Up In Cardiology 2. Ischemic cardiomyopathy Follow Up In Cardiology 3. 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 4. Paroxysmal atrial fibrillation (Multi) 5. S/P CABG x 4 6. Status post angioplasty 7. Primary hypertension 8. Mixed hyperlipidemia 9. High risk medication use 10. Chronotropic incompetence with sinus node dysfunction 11. BMI 35.0-35.9,adult 12. Current every day smoker Scribe Attestation By signing my name below, I, Katerin Cami Bowles LPN attest that this documentation has been prepared under the direction and in the presence of Jesus Posey DO. Provider Attestation - Scribe documentation All medical record entries made by the Scribe were at my direction and personally dictated by me. I have reviewed the chart and agree that the record accurately reflects my personal performance of the history, physical exam, discussion and plan. documented in this encounter [facility] Work Phone: 07-13-2023 Instructions Katerin Mcfarland LPN - 07/13/2023 10:10 AM EDT Please bring all medicines, vitamins, and herbal supplements with you when you come to the office. Prescriptions will not be filled unless you are compliant with your follow up appointments or have a follow up appointment scheduled as per instruction of your physician. Refills should be requested at the time of your visit. Fall Prevention Education Given Amiodarone follow up per routine BMI was above normal measurement. Current weight: 109 kg (241 lb) Weight change since last visit (-) denotes wt loss 2 lbs Weight loss needed to achieve BMI 25: 72.1 Lbs Weight loss needed to achieve BMI 30: 38.3 Lbs Provided instructions on dietary changes Provided instructions on exercise. documented in this encounter [facility] Work Phone: 05-21-2023 History of Present illness Narrative Chief Complaint: Device Check History Of Present Illness: Kenton Quintero is a 68 y.o. male presenting with follow-up. He is accompanied by his . When he walked from parking lot into device clinic, he was breathing very heavily. After adjustment of sensor, his breathing improved. He was able to walk from the device clinic to radiology without significant dyspnea on exertion. We discussed referral to heart failure clinic for further adjustment of medications, and he declines referral at this time. He wants to see how he feels with adjustment of sensor of device. Last Recorded Vitals: Vitals: 05/21/23 1317 BP: 128/78 BP Location: Right arm Patient Position: Sitting Pulse: 72 Weight: 108 kg (239 lb) Height: 1.753 m (5' 9 ) Past Medical History: See List Past Surgical History: See List Social History: He reports that he has been smoking cigarettes. He has a 45.00 pack-year smoking history. He has never used smokeless tobacco. He reports current alcohol use of about 2.0 standard drinks of alcohol per week. He reports that he does not use drugs. Family History: Family History Problem Relation Name Age of Onset Bone cancer Mother Heart attack Father Heart attack Sister Ovarian cancer Sister Pancreatic cancer Brother Allergies: Jenny inhibitors Outpatient Medications: Current Outpatient Medications Medication Instructions amiodarone (PACERONE) 200 mg, oral, Daily aspirin 81 mg EC tablet 1 tablet, oral, Daily atorvastatin (Lipitor) 80 mg tablet 1 tablet, oral, Nightly BD Ultra-Fine Micro Pen Needle 32 gauge x 1/4 needle BD Ultra-Fine Short Pen Needle 31 gauge x 5/16 needle USE DIRECTED DAILY famotidine (Pepcid) 20 mg tablet 1 tablet, oral, 2 times daily insulin lispro protamin-lispro (HumaLOG Mix 50-50 KwikPen) 100 unit/mL (50-50) injection subcutaneous, 2 times daily with meals, Take as directed per insulin instructions. Levemir FlexPen 14 Units, subcutaneous, Nightly levETIRAcetam XR (Keppra XR) 750 mg tablet extended release 24 hr 24 hr tablet 1 tablet, oral, 2 times daily losartan (COZAAR) 25 mg, oral, Daily metFORMIN (Glucophage) 850 mg tablet 1 tablet, oral, 2 times daily with meals metoprolol succinate XL (TOPROL-XL) 50 mg, oral, Daily mirtazapine (REMERON) 30 mg, oral, Nightly nitroglycerin (NITROSTAT) 0.4 mg, sublingual, Every 5 min PRN rOPINIRole (REQUIP) 0.5 mg, oral, Nightly warfarin (COUMADIN) 2 mg, oral, See admin instructions, As directed by the [facility] coumadin clinic. Ok to resume at previous dose on 01/09/23 Review of Systems All other systems reviewed and are negative. Physical Exam: Constitutional: General: Awake. Appearance: Normal and healthy appearance. Well-developed and not in distress. Neck: Vascular: No JVR. JVD normal. Pulmonary: Effort: Pulmonary effort is normal. Breath sounds: Normal breath sounds. No wheezing. No rhonchi. No rales. Chest: Chest wall: Not tender to palpatation. Comments: Left sided device pocket- healed and well approximated. No swelling or hematoma Cardiovascular: PMI at left midclavicular line. Normal rate. Regular rhythm. Normal S1. Normal S2. Murmurs: There is no murmur. No gallop. No click. No rub. Pulses: Intact distal pulses. Edema: Peripheral edema absent. Abdominal: Tenderness: There is no abdominal tenderness. Musculoskeletal: Normal range of motion. General: No tenderness. Skin: General: Skin is warm and dry. Neurological: General: No focal deficit present. Mental Status: Alert and oriented to person, place and time. Last Labs: CBC - Lab Results Component Value Date WBC 9.4 01/07/2023 HGB 14.0 01/07/2023 HCT 44.0 01/07/2023 MCV 87 01/07/2023 PLT 206 01/07/2023 CMP - Lab Results Component Value Date CALCIUM 9.0 01/07/2023 PHOS 3.7 09/16/2017 PROT 7.1 09/05/2017 ALBUMIN 3.5 09/16/2017 AST 23 09/05/2017 ALT 35 09/05/2017 ALKPHOS 81 09/05/2017 BILITOT 0.7 09/05/2017 LIPID PANEL - Lab Results Component Value Date CHOL 144 09/05/2017 TRIG 198 (H) 09/05/2017 HDL 27.9 (A) 09/05/2017 CHHDL 5.2 (A) 09/05/2017 LDLF 77 09/05/2017 VLDL 40 09/05/2017 NHDL 129 09/03/2017 RENAL FUNCTION PANEL - Lab Results Component Value Date GLUCOSE 224 (H) 01/07/2023 NA 135 (L) 01/07/2023 K 4.6 01/07/2023 CL 103 01/07/2023 CO2 26 01/07/2023 ANIONGAP 11 01/07/2023 BUN 27 (H) 01/07/2023 CREATININE 1.47 (H) 01/07/2023 CALCIUM 9.0 01/07/2023 PHOS 3.7 09/16/2017 ALBUMIN 3.5 09/16/2017 Lab Results Component Value Date HGBA1C 9.0 09/04/2017 Last Cardiology Tests: ECG: ECG 12 Lead 03/10/2023 Today. Appropriate pacing. PVC. Normal axis. Corrected QT interval 520 ms (paced) Device check today. [place] CD HFA 500 Q biventricular defibrillator. Estimated longevity device over 5 years. 75% atrial pacing. 98% BiV pacing. Lab review: I have personally reviewed the laboratory result(s) see above Assessment/Plan Diagnoses and all orders for this visit: Cardiac pacemaker in situ - XR chest 2 views; Future H/O sick sinus syndrome Biventricular ICD (implantable cardioverter-defibrillator) in place Ischemic cardiomyopathy Congestive heart failure, unspecified HF chronicity, unspecified heart failure type (CMS/HCC) LBBB (left bundle branch block) S/P CABG x 4 Atherosclerosis of [place] coronary artery of eyak heart without angina pectoris Primary hypertension Mixed hyperlipidemia BMI 35.0-35.9,adult Current every day smoker Encounter for medication review and counseling Encounter to discuss treatment options Herlinda Salazar RN Ischemic CM. NYHA III C heart failure. LBBB with QRS 170 ms. Chronotropic incompetence. Sinus node dysfunction. s/p dual chamber pacemaker and upgrade to biventricular defibrillator. Empirical adjustment of sensor. Follow clinically. Consider walk test in future. Saint Vj CD HFA 500 Q biventricular defibrillator. Normal device function. Ordered limited echo for AV VV optimization of device. Reviewed meds. Continue meds. Discussed heart failure clinic which he declines CAD, chronic. Stable. Medical management. Reviewed meds. Continue meds. Paroxysmal atrial fibrillation. Reviewed meds. Continue meds. Bridges with Lovenox for procedures. Neuropathy. May be progressing per family report. Tobacco use. Discussed tobacco cessation HTN, hyperlipidemia, and DM noted. Reviewed meds. Follows with PCP and cardiology Overweight. Likely COPD given tobacco history. Recommend follow-up with PCP for evaluation and treatment Obstructive sleep apnea. Discussed associated arrhythmias and sleep apnea Reported history of CVA and dementia. Follows with PCP AHA recommendations for exercise, diet, and behavioral modification reviewed with pt. Greater than 50% of the visit were discussed with patient and regarding bradycardia, sinus node dysfunction, sensor adjustment, cardiomyopathy, biventricular defibrillator, how synchrony works with his device, echocardiographic guided optimization of device, referral to structural heart clinic which he declines, future walk test, shared decision making, risk, benefits, and imponderables. All questions answered in detail. Patient and appreciative of care documented in this encounter [facility] Work Phone: 05-21-2023 Instructions Herlinda Salazar RN - 05/21/2023 12:00 PM EST Continue same medications/treatment. Patient educated on proper medication use. Patient educated on risk factor modification. Please bring any lab results from other providers/physicians to your next appointment. Please bring all medicines, vitamins, and herbal supplements with you when you come to the office. Prescriptions will not be filled unless you are compliant with your follow up appointments or have a follow up appointment scheduled as per instruction of your physician. Refills should be requested at the time of your visit. Follow up with Dr. Ha in 6 months with device check Continue remote checks at 3 and 9 months I, HERLINDA SALAZAR RN, AM SCRIBING FOR AND IN THE PRESENCE OF DR. CARMEN HA MD, FACC, FACP, FHRS documented in this encounter [facility] Work Phone: 04-14-2023 Evaluation note Encounter Date Diagnosis Assessment Notes Mar, Subungual hematoma of toe of left foot, subsequent encounter (ICD-10 - S90.222D) Reassured that this will resolve w/o treatment. Continue w/ normal nail care Mar, Paronychia of toe of left foot (ICD-10 - L03.032) Soak in warm water daily NORM daily Initiate antibiotics Call in week w/ update Mar, Type 2 diabetes mellitus with hyperglycemia (ICD-10 - E11.65) This patient is following a comprehensive diabetic treatment plan. They are checking their feet daily for calluses and nonhealing ulcers. They are being seen for yearly dilated eye examinations. Goals: SBP less than 130, LDL less than 100, FBS less than 140, A1C less than 7%. They are checking their BS daily, will which are reviewed at the office visit. Continue regular routine monitoring of A1C, Microalbumin, Dilated eye exam and Foot exam Increase basal insulin to 18u bid Continue ISS coverage Check BS before and after meals and bedtime Mar, group home (current) use of insulin (ICD-10 - Z79.4) [employer] Other 01-10-2024 Evaluation note* Encounter Date Diagnosis Assessment Notes Treatment Notes Treatment Clinical Notes Mar, Type 2 diabetes mellitus with hyperglycemia (ICD-10 - E11.65) [employer] Other 12-27-2023 Evaluation note* Encounter Date Diagnosis Assessment Notes Treatment Notes Treatment Clinical Notes Feb, Type 2 diabetes mellitus with hyperglycemia (ICD-10 - E11.65) 70-130 - none 131-180 - 2: increase to 4u 181-240 - 4: increase to 6u 241-300 - 6: increase to 8u 301-350 - 8: increase to 10u Levemir 14u bid [employer] Other 12-03-2023 Evaluation note* Encounter Date Diagnosis Assessment Notes Treatment Notes Treatment Clinical Notes Feb, Type 2 diabetes mellitus with hyperglycemia (ICD-10 - E11.65) [employer] Other 11-13-2023 Evaluation note* Encounter Date Diagnosis Assessment Notes Treatment Notes Treatment Clinical Notes Jan, Ischemic cardiomyopathy (ICD-10 - I25.5) This patient is stable without activity related CP, dyspnea or lightheadedness. They are instructed to continue exercise and AHA diet plan. Continue secondary prevention measures. Jan, Type 2 diabetes mellitus with hyperglycemia (ICD-10 - E11.65) This patient is following a comprehensive diabetic treatment plan. They are checking their feet daily for calluses and nonhealing ulcers. They are being seen for yearly dilated eye examinations. Goals: SBP less than 130, LDL less than 100, FBS less than 140, A1C less than 7%. They are checking their BS daily, will which are reviewed at the office visit. Continue regular routine monitoring of A1C,] Microalbumin, Dilated eye exam and Foot exam Jan, Type 2 diabetes mellitus with diabetic peripheral angiopathy without gangrene (ICD-10 - E11.51) Fall precautions. Inspect feet daily for cuts or ulcers. Walk daily until pain, stop and restart. Continue secondary prevention measures. Jan, Chronic HFrEF (heart failure with reduced ejection fraction) (ICD-10 - I50.22) Instructed on low salt diet, exercise and daily weights. Instructed to notify office for any unexpected weight gain > 3lbs and/or increased dyspnea, difficulty breathing during sleep, worsening lower extremity swelling, chest pain or lightheadedness. Reviewed GDMT w/ beta blockers, JENNY/ARB/ARNI, MRA and SGLT-2 Jan, Hyperlipidemia, mixed (ICD-10 - E78.2) Instructed on diet and exercise with continued statin therapy.Discussed the beneficial effects of lowering cholesterol in reducing the risk for cerebrovascular and cardiovascular disease. 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 Cough and deep breathing No inhalers necessary No ER visits for AE Jan, Nicotine dependence, cigarettes, uncomplicated (ICD-10 - F17.210) This patient has been encouraged to quit tobacco use immediately. They are aware of the hazards associated with tobacco use, including but not limited to respiratory infections, vascular disease and cancers. Jan, group home (current) use of insulin (ICD-10 - Z79.4) [employer] Other 10-25-2023 Evaluation + Plan note* Assessment & Plan Note - SUE [place] - 01/13/2023 8:56 AM EDTAssociated Problem(s): Paroxysmal atrial fibrillation (CMS/HCC) Maintaining sinus rhythm on amiodarone Surveillance testing completed July 2022 CHADS VASc 7 anticoagulated on Coumadin [facility] Work Phone: 1([phone]) 837-723510-25-2023 Evaluation + Plan note* Assessment & Plan Note - SUE [place] - 01/13/2023 8:56 AM EDTAssociated Problem(s): Atherosclerosis of coronary artery of eyak heart without angina pectoris 2022 cardiac cath Newly occluded pAV CX/dCX/OM2 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 RCA and SVG-RCA RAMIREZ-LAD patent Sequential free [id number] patent [facility] Work Phone: [phone]) 777-418910-25-2023 Miscellaneous Notes* Assessment & Plan Note - SUE [place] - 01/13/2023 8:56 AM EDTAssociated Problem(s): Paroxysmal atrial fibrillation (CMS/HCC) Maintaining sinus rhythm on amiodarone Surveillance testing completed July 2022 CHADS VASc 7 anticoagulated on Coumadin * Assessment & Plan Note - SUE [place] - 01/13/2023 8:56 AM EDT Associated Problem(s): Atherosclerosis of coronary artery of eyak heart without angina pectoris 2022 cardiac cath Newly occluded pAV CX/dCX/OM2 SETUP TECHNICIAN RCA and SVG-RCA RAMIREZ-LAD patent Sequential free [id number] patent * Assessment & Plan Note - SUE [place] - 01/13/2023 8:55 AM EDT Associated Problem(s): BMI 33.0-33.9,adult Reviewed the merits of healthy lifestyle choices on overall cardiovascular health. * Assessment & Plan Note - [place]UE [place] - 01/13/2023 8:54 AM EDT Associated Problem(s): Current every day smoker Continued every day tobacco use. Have reviewed the negative cardiovascular impact of nicotine. Continues to decline pharmacological assistance. * Assessment & Plan Note - SUE [place] - 01/13/2023 8:54 AM EDT Associated Problem(s): Ischemic cardiomyopathy ICM HFrEF 30-35% Oct 2022 cath FC II Stage C GDMT: Toprol Entresto: unable to tolerate d/t hypotension Cozaar: to resume today Aldactone Jardiance: insurance would not cover * Assessment & Plan Note - SUE [place] - 01/13/2023 8:52 AM EDT Associated Problem(s): Biventricular ICD (implantable cardioverter- defibrillator) in place Jan 07, 2023: Fragoso DDHFA 500Q biV ICD [facility]: [phone]) 291-183710-25-2023 Evaluation + Plan note* Assessment & Plan Note - SUE [place] - 01/13/2023 8:55 AM EDTAssociated Problem(s): BMI 33.0-33.9,adult Reviewed the merits of healthy lifestyle choices on overall cardiovascular health. [facility] Work Phone: [phone]) 712-517510-25-2023 Evaluation + Plan note* Assessment & Plan Note - SUE [place] - 01/13/2023 8:54 AM EDTAssociated Problem(s): Current every day smoker Continued every day tobacco use. Have reviewed the negative cardiovascular impact of nicotine. Continues to decline pharmacological assistance. [facility] Work Phone: [phone]) 129-701410-25-2023 Evaluation + Plan note* Assessment & Plan Note - SUE [place] - 01/13/2023 8:54 AM EDTAssociated Problem(s): Ischemic cardiomyopathy ICM HFrEF 30-35% Oct 2022 cath FC II Stage C GDMT: Toprol Entresto: unable to tolerate d/t hypotension Cozaar: to resume today Aldactone Jardiance: insurance would not cover [facility] Work Phone: [phone] 243-149710-25-2023 Evaluation + Plan note* Assessment & Plan Note - [place]UE [place] - 01/13/2023 8:52 AM EDTAssociated Problem(s): Biventricular ICD (implantable cardioverter-defibrillator) in place Jan 07, 2023: Fragoso DDHFA 500Q biV ICD [facility] Work Phone: [phone] 324-148210-24-2023 History of Present illness Narrative* SUE [place] - 01/12/2023 4:00 PM EDT Chief Complaint 'I could not take Entresto Reason for Visit Wound check: Jan 07, 2023 upgrade to Fragoso biV ICD at [facility] Patient presents to the office today for outpatient follow-up for recent cardiovascular procedure. Last evaluated in clinic by myself November 2022. Following that visit, he was able to obtain Entresto but once he started the medication he had symptomatic hypotension. He was instructed to hold itapproximately 1 week ago. He has not resumed prior dose of Cozaar. Presents today ambulatory with steady gait. Accompanied by spouse Patient denies any hospitalizations or significant changes to interval medical history since last office follow-up. History of Present Illness Patient presents to the office today without voiced complaints. His dizziness and hypotension has resolved off of Entresto. Patient reports that overall has no complaint(s) of chest pain, dyspnea, exertional chest pressure/discomfort, fatigue, orthopnea, and palpitations Patient denies any fever or chills. There is no significant pain or tenderness at incision site. There is no pleuritic pain or shortness of breath. Left pre-pectorial dressing removed revealing incision that is well approximated without any evidence of erythema no warmth or drainage. There is no evidence of hematoma, device edges are easily palpable. Patient has been instructed on signs and symptoms to notify the office of. Patient has been enrolled in device clinic for appropriate follow-up. All questions and concerns have been addressed. Patient presents able to perform greater than 4 METS on a daily basis without any limitations, there has been no utilization of nitroglycerin sublingual. Patient denies any change in exercise capacity are functional tolerance since last office visit with primary senior integration architect. There are no symptoms consistent with unstable angina, heart failure symptomatology or symptomatic arrhythmia. Secondary prevention optimal Review of Systems Cardiovascular: Negative for chest pain, dyspnea on exertion, irregular heartbeat, leg swelling, near-syncope, orthopnea, palpitations, paroxysmal nocturnal dyspnea and syncope. Visit Vitals BP 120/80 (BP Location: Left arm, Patient Position: Sitting) Pulse 72 Temp 36.7 C (98 F) Ht 1.753 m (5' 9 ) Wt 104 kg (230 lb) BMI 33.97 kg/m Smoking Status Every Day BSA 2.25 m Physical Exam Vitals and nursing note reviewed. Constitutional: Appearance: Normal appearance. Cardiovascular: Rate and Rhythm: Normal rate and regular rhythm. Heart sounds: Normal heart sounds. Pulmonary: Effort: Pulmonary effort is normal. Breath sounds: Normal breath sounds. Musculoskeletal: Cervical back: Full passive range of motion without pain. Right lower leg: No edema. Left lower leg: No edema. Skin: General: Skin is cool. Neurological: Mental Status: He is alert and oriented to person, place, and time. Psychiatric: Attention and Perception: Attention normal. Mood and Affect: Mood normal. Behavior: Behavior is cooperative. Current Outpatient Medications Medication Instructions acetaminophen (TYLENOL) 650 mg, oral, Every 4 hours PRN amiodarone (PACERONE) 200 mg, oral, Daily aspirin 81 mg EC tablet 1 tablet, oral, Daily atorvastatin (Lipitor) 80 mg tablet 1 tablet, oral, Nightly escitalopram (LEXAPRO) 5 mg, oral, Daily famotidine (PEPCID) 20 mg, oral, 2 times daily Levemir FlexPen 14 Units, subcutaneous, Nightly levETIRAcetam XR (Keppra XR) 750 mg tablet extended release 24 hr 24 hr tablet 1 tablet, oral, 2 times daily losartan (COZAAR) 25 mg, oral, Daily metFORMIN (Glucophage) 850 mg tablet 1 tablet, oral, 2 times daily with meals metoprolol succinate XL (TOPROL-XL) 50 mg, oral, Daily mirtazapine (REMERON) 30 mg, oral, Nightly nitroglycerin (NITROSTAT) 0.4 mg, sublingual, Every 5 min PRN rOPINIRole (REQUIP) 0.5 mg, oral, Nightly spironolactone (ALDACTONE) 25 mg, oral, Daily Trulicity 1.5 mg, subcutaneous, Weekly warfarin (COUMADIN) 2 mg, oral, See admin instructions, As directed by the [facility] coumadin clinic. Ok to resume at previous dose on 01/09/23 Assessment: Biventricular ICD (implantable cardioverter-defibrillator) in place Jan 07, 2023: Fragoso DDHFA 500Q biV ICD Ischemic cardiomyopathy ICM HFrEF 30-35% Oct 2022 cath FC II Stage C GDMT: Toprol Entresto: unable to tolerate d/t hypotension Cozaar: to resume today Aldactone Jardiance: insurance would not cover Current every day smoker Continued every day tobacco use. Have reviewed the negative cardiovascular impact of nicotine. Continues to decline pharmacological assistance. BMI 33.0-33.9,adult Reviewed the merits of healthy lifestyle choices on overall cardiovascular health. Atherosclerosis of coronary artery of eyak heart without angina pectoris 2022 cardiac cath Newly occluded pAV CX/dCX/OM2 SETUP TECHNICIAN RCA and SVG-RCA RAMIREZ-LAD patent Sequential free [id number] patent Paroxysmal atrial fibrillation (CMS/HCC) Maintaining sinus rhythm on amiodarone Surveillance testing completed July 2022 CHADS VASc 7 anticoagulated on Coumadin Plan: PLAN: Through informed decision making process incorporating patients unique circumstances, the followingtreatment plan will be initiated: 1. Prescription drug management of cardiovascular medication for efficacy, adherence to treatment, side effect assessment and polypharmacy. Current treatment clinically warranted and to continue withfollowing modifications: - stay off Entresto - Resume losartan 25mg daily 2. Return for follow-up; in the interim, contact the office if new symptoms arise. Dr. Ha as scheduled Dr. Posey 6 months Ivania Velazquez MSN, CARE TEAM ASSISTANT-CIRCULATION REPRESENTATIVE, PMHNP-[facility] Please excuse any errors in grammar or translation related to this dictation. Voice recognition software was utilized to prepare this document. [facility] Work Phone: [phone]) [phone] Instructions* Patient Instructions* SUE [place] - 01/12/2023 4:00 PM EDT Please bring all medicines, vitamins, and herbal supplements with you when you come to the office. Prescriptions will not be filled unless you are compliant with your follow up appointments or have a follow up appointment scheduled as per instruction of your physician. Refills should be requested at the time of your visit. PLAN: Through informed decision making process incorporating patients unique circumstances, the followingtreatment plan will be initiated: 1. Prescription drug management of cardiovascular medication for efficacy, adherence to treatment, side effect assessment and polypharmacy. Current treatment clinically warranted and to continue withfollowing modifications: - stay off Entresto - Resume losartan 25mg daily 2. Return for follow-up; in the interim, contact the office if new symptoms arise. Dr. Ha as scheduled Dr. Posey 6 months [facility] Work Phone: [phone] Evaluation note* Encounter Date Diagnosis Assessment Notes Treatment Notes Treatment Clinical Notes Dec, Type 2 diabetes mellitus with hyperglycemia (ICD-10 - E11.65) [employer] Other 10-17-2023 Evaluation note* Encounter Date Diagnosis Assessment Notes Treatment Notes Treatment Clinical Notes Dec, Ischemic cardiomyopathy (ICD-10 - I25.5) This patient is stable without activity related CP, dyspnea or lightheadedness. They are instructed to continue exercise and AHA diet plan. Continue secondary prevention measures. Dec, Chronic HFrEF (heart failure with reduced ejection fraction) (ICD-10 - I50.22) Instructed on low salt diet, exercise and daily weights. Instructed to notify office for any unexpected weight gain > 3lbs and/or increased dyspnea, difficulty breathing during sleep, worsening lower extremity swelling, chest pain or lightheadedness. Reviewed GDMT w/ beta blockers, JENNY/ARB/ARNI, MRA and SGLT-2 Dec, Type 2 diabetes mellitus with hyperglycemia (ICD-10 - E11.65) This patient is following a comprehensive diabetic treatment plan. They are checking their feet daily for calluses and nonhealing ulcers. They are being seen for yearly dilated eye examinations. Goals: SBP less than 130, LDL less than 100, FBS less than 140, A1C less than 7%. They are checking their BS daily, will which are reviewed at the office visit. Continue regular routine monitoring of A1C,] Microalbumin, Dilated eye exam and Foot exam Dec, Type 2 diabetes mellitus with diabetic peripheral angiopathy without gangrene (ICD-10 - E11.51) Inspect feet daily for cuts and calluses.Recommend diabetic shoes and inserts to prevent callus formation.Fall precautions. Dec, Hyperlipidemia, mixed (ICD-10 - E78.2) Inspect feet daily for cuts and calluses. Continue secondary prevention measures. Walk daily until pain Dec, Type 2 diabetes mellitus with diabetic polyneuropathy (ICD-10 - E11.42) Inspect feet daily for cuts and calluses.Recommend diabetic shoes and inserts to prevent callus formation.Fall precautions. Dec, Mild episode of recurrent major depressive disorder (ICD-10 - F33.0) Stable, continue healthy diet and exercise. Keep active Dec, Chronic bronchitis, mucopurulent (ICD-10 - J41.1) No ER visits for AE Continue bronchodilators as needed UTD w/ vaccine Dec, Nicotine dependence, cigarettes, uncomplicated (ICD-10 - F17.210) This patient has been encouraged to quit tobacco use immediately. They are aware of the hazards associated with tobacco use, including but not limited to respiratory infections, vascular disease and cancers. Dec, group home (current) use of insulin (ICD-10 - Z79.4) Dec, Subungual hematoma of toe of left foot, initial encounter (ICD-10 - S90.222A) Reassured, no treatment [employer] Other [phone] Evaluation note* Encounter Date Diagnosis Assessment Notes Treatment Notes Treatment Clinical Notes Dec, Trigger ring finger of right hand (ICD-10 - M65.341) Lesley presents with left ring trigger finger. At this juncture we have discussed the findings and diagnosis as well as personally reviewed appropriate imaging and performed interpretation of related testing and examination with the patient in office today. Prior medical notes from Dr. Segovia and history have been reviewed. The patient has been involved in our cooperative treatment plan and agrees to move forward with treatment at this time. The finding and diagnosis of trigger finger has been discussed at length with the patient. The mechanism of stenosing tenosynovitis and the effect on smooth tendon glide at the level of the A1 nickie have been discussed with the patient. Nonoperative treatment including splinting, activity modification and NSAIDs have been discussed with the patient. Cortisone injections have been discussed and offered as well and the risks of fat atrophy, tendon rupture and transient hyperglycemia were discussed and understood. The surgical release of the A1 nickie has been discussed along with possible complications and risks including digital nerve injury, bowstringing, wound healing issues, postoperative pain and stiffness and the possibility of the need for therapy. At this time the patient elects to proceed with injection. Today under sterile technique the patient's right ring finger A1 nickie was injected with 1/4 cc Marcaine one quarter cc of Kenalog using sterile technique. He tolerated this well. Continue to monitor. Follow-up as needed We performed a marcaine/kenalog cortisone injection into the palmar aspect of the finger near at the A1 nickie under sterile technique. The patient tolerated this well without complication. We discussed that the finger may feel numb and tingle for hours after this injection. Patient given AAOS information handout Dec, Cubital tunnel syndrome on right (ICD-10 - G56.21) Today we have discussed cubital tunnel syndrome. We discussed that it is a compressive neuropathy of the ulnar nerve along the medial elbow at multiple sites. We discussed the clinical changes including sensation abnormalities to the ring and pinky finger as well as weakness of photogrammetric tech. Physical exam findings have also been discussed. Electromyography and nerve conduction study findings associated with ulnar neuropathy and cubital tunnel syndrome have been discussed at length with the patient. Nonoperative treatment including NSAIDs, activity modification and elbow splinting have been discussed and offered. Operative intervention of ulnar nerve decompression with or without transposition has been discussed. Complications including recurrence of symptoms, incomplete resolution of symptoms as well as neuroma formation have been discussed specifically. At this time the patient would like to proceed with conservative treatment with Medrol Dosepak. Discussed with patient he continues to have symptoms of cubital tunnel. We discussed the cause of this condition and the treatment options. We discussed the use of cortisone injection into the carpal tunnel can be helpful in relieving painful symptoms .We also discussed the use of wearing braces and hand occupational therapy can help with symptoms. We also discussed the option of surgical release which can eliminate the problem. Patient given [employer] information handout [facility] Other 08-31-2023 Discharge summary Author Franck Posey [facility] November 19, 2022 2:51pm Note Date/Time November 19, 2022 2: 48pm [facility] [address] [place] [address] Discharge Summary Signed Patient: Lesley Quintero MR#: [id number] : 1955 Acct:[id number] Age/Sex: 67 / M Adm Date: 3 Loc: Room: Attending Dr: Franck Posey DO Copies to: DO Franck Hawkins DO~ Providers Date of Discharge: 11/19/22 Discharging Provider: Franck Posey Primary Care Provider: Lee Segovia Discharge Diagnosis (1) ASHD (arteriosclerotic heart disease): (2) History of PTCA: (3) Complete heart block: (4) H/O coronary artery bypass surgery: (5) Tobacco abuse: (6) History of stroke: (7) Dyslipidemia: (8) Sick sinus syndrome: (9) Paroxysmal atrial fibrillation with RVR: (10) S/P CABG x 4: Final Diagnosis Final Discharge Diagnosis: 1. Severe ischemic cardiomyopathy 2. History of CABG: Patent RAMIREZ?LAD, free KRISSY?diagonal and OM 3. Tobacco abuse 4. Diabetes 5. History of stroke Summary Hospital Course Hospital course: 67-year-old gentleman with known severe ischemic cardiomyopathy, remote four- vessel bypass surgery with progressive severe exertional dyspnea, out of proportion to routine lifestyle. Patient has previous history of [place], PCI's of the circumflex, ongoing tobacco use, prior stroke. Left heart catheterization is performed today electively as an outpatient for the above symptoms revealing newly occluded proximal through distal circumflex, chronic occlusions of the mid LAD and proximal RCA; occluded vein graft to the RCA; patent RAMIREZ to the LAD, patent free KRISSY off of the RAMIREZ graft to the diagonal and OM branch; with moderately severe LV dysfunction with ejection fraction of 35% and LVEDP of 20 mmHg Medical therapy is warranted, would recommend proceeding with AICD, tobacco cessation and escalation of heart failure therapies Time spent discussing smoking cessation with patient: 3 to 10 minutes Condition Condition at Discharge: Stable Status at Discharge Functional status at discharge: independent ambulation Overall status at discharge: patient is back to baseline Time Spent with Patient Time spent providing/coordinating discharge services (# min): 15 Surgeries and Procedures Operation Date: 11/19/22 13:15 <No data on this case meets the specified criteria> Complications Complications: None Diagnostic Studies Completed and Pending Studies Labs on day of discharge: 11/19/22 11:30: PT 12.1, INR 1.0, APTT 28.8 Exam Physical Exam Vital Signs: Temp Pulse Resp BP Pulse Ox O2 Del Method 97.1 F L 70 20 116/74 98 Room Air 11/19/22 11:13 11/19/22 11:13 11/19/22 11:13 11/19/22 11:13 11/19/22 11:13 11/19/22 11:42 Discharge Plan Discharge Plan Patient Disposition: Home Diet: Low-Cholesterol Additional Instructions: DISCHARGE INSTRUCTIONS FOR CARDIAC LEADERSHIP PROGRAM INTERN PHONE NUMBER OF YOUR PHYSICIAN: [phone] PROCEDURE: Heart Cath The following instructions have been prepared to help you care for yourself, or be cared for upon your return home. 1. You were given conscious sedation. Do not operate a vehicle, power tools, make important decisions, or drink alcohol for 24 hours. You might be drowsy orlight headed. Return to the Emergency Room if you have trouble breathing, walking or nausea and vomiting. 2. FOR BLEEDING: Apply continuous pressure to the site and call 911. 3. Operative Site Care: Keep the dressing clean and dry. You may change the dressing only if soiled or wet. You may remove the dressing the following morning. You may wash over the puncture site in the shower. If the puncture site is at the wrist no soaking for 3 days. Some bruising or slight swelling may be present. -Signs of infection are redness, warmth, swelling, getting more sore, colored drainage, fever or chills. -Should the arm or leg become cold, numb, blue or white, call the senior integration architect immediately. 4. ACTIVITY: You are advised to go directly home from the hospital. Restrict your activities for the rest of the day. Resume light or normal activities tomorrow. Do not engage in any activity that will stress the puncture site. Avoid heavy lifting (over 15 lbs.), straining or bending at the catheter site for 48 hours after discharge. If the puncture site is at the wrist do not manipulate wrist for 24 hours and no lifting more than 3 lbs for 3 days. 5. DIET:You may eat your regular diet when you desire. 6. MEDICATIONS: Resume your daily prescription schedule. Prescriptions may be sent with you if needed. Use as directed. When taking pain medications, you may experience dizziness or drowsiness. Do not drink alcohol or drive when taking pain medications. 7. If you should experience episodes of angina e.g. chest discomfort, heaviness, tightness, pressure, burning, with or without radiation to the neck, jaws, arms, or back- Use 1 Nitrostat under your tongue every 5-10 minutes, and up to 3 tablets. If no relief- Call 911 and go to the nearest Emergency Room. -Notify the office for recurrent angina, chest pain or other concerns. You may NOT drive yourself home! Follow the medication instructions provided on your discharge. If the dosages and instructions on this sheet differ from the dosage and instructions on the bottle, follow the instructions on the bottle. [facility] is not responsible for incorrect prescription information provided by thepatient during their visit. Do not stop your medications without consulting your health care provider. Please take the list with you to your next doctor's appointment. Instructions: Heart failure and atrial fibrillation, Quitting smoking Prescriptions: New Entresto 24-26 mg tablet 1 tab PO BID Qty: 60 3RF Continued levetiracetam 750 mg Tablet 750 tab PO BID amiodarone 200 mg Tablet 200 mg PO QHS famotidine 20 mg Tablet 20 mg PO BID ropinirole 0.5 mg tablet 0.5 mg PO QHS nitroglycerin 0.4 mg Tablet, Sublingual 0.4 mg sublingual Q5M PRN (Reason: Chest Pain) Qty: 30 1RF Rx Instructions: 0.4 mg sublingually under the tongue every 5 minutes up to 3 doses as needed for chest pain warfarin 1 mg Tablet 2 mg PO DIRECTED Qty: 0 0RF Patient Comments: , WED, WED,, WED, SAT Rx Instructions: Take 3 tablets ( 3MG ) today and tomorrow. (Wednesday and Wednesday ) resume taking 2 tablet ( 2 mg ) then follow the Coumadin clinic at [place] instructions to adjust dosing based on the blood test. aspirin 81 mg Tablet,Delayed Release (Dr/Ec) 81 mg PO QHS metformin 850 mg tablet 850 mg PO BID spironolactone 25 mg tablet 25 mg PO QAM mirtazapine 30 mg tablet 30 mg PO QHS escitalopram oxalate 5 mg tablet 5 mg PO QAM Levemir FlexPen 100 unit/mL (3 mL) insulin pen 14 unit SUBCUT QHS Patient Comments: INJECT TEN UNITS SUBCUTANEOUSLY AT BEDTIME Trulicity 1.5 mg/0.5 mL pen injector 1.5 mg SUBCUT QWEEK Rx Instructions: wednesday atorvastatin 80 mg tablet 80 mg PO QHS metoprolol succinate 50 mg tablet extended release 24 hr 50 mg PO QAM Discontinued losartan 25 mg tablet 25 mg PO QAM Follow Up: Franck Posey DO [Active Staff - D.O.] - Lee Segovia DO [Primary Care Provider] - Documented By: Franck Posey DO 11/19/22 1443 Signed By: <Electronically signed by Franck Posey DO> 11/19/22 9033 [facility] Work Phone: [phone] 709-321408-31-2023 Hospital Discharge instructions Additional Instructions DISCHARGE INSTRUCTIONS FOR CARDIAC LEADERSHIP PROGRAM INTERN PHONE NUMBER OF YOUR PHYSICIAN: [phone] PROCEDURE: Heart Cath The following instructions have been prepared to help you care for yourself, or be cared for upon your return home. 1. You were given conscious sedation. Do not operate a vehicle, power tools, make important decisions, or drink alcohol for 24 hours. You might be drowsy or light headed. Return to the Emergency Room if you have trouble breathing, walking or nausea and vomiting. 2. FOR BLEEDING: Apply continuous pressure to the site and call 911. 3. Operative Site Care: Keep the dressing clean and dry. You may change the dressing only if soiled or wet. You may remove the dressing the following morning. You may wash over the puncture site in the shower. If the puncture site is at the wrist no soaking for 3 days. Some bruising or slight swelling may be present. -Signs of infection are redness, warmth, swelling, getting more sore, colored drainage, fever or chills. -Should the arm or leg become cold, numb, blue or white, call the senior integration architect immediately. 4. ACTIVITY: You are advised to go directly home from the hospital. Restrict your activities for the rest of the day. Resume light or normal activities tomorrow. Do not engage in any activity that will stress the puncture site. Avoid heavy lifting (over 15 lbs.), straining or bending at the catheter site for 48 hours after discharge. If the puncture site is at the wrist do not manipulate wrist for 24 hours and no lifting more than 3 lbs for 3 days. 5. DIET:You may eat your regular diet when you desire. 6. MEDICATIONS: Resume your daily prescription schedule. Prescriptions may be sent with you if needed. Use as directed. When taking pain medications, you may experience dizziness or drowsiness. Do not drink alcohol or drive when taking pain medications. 7. If you should experience episodes of angina e.g. chest discomfort, heaviness, tightness, pressure, burning, with or without radiation to the neck, jaws, arms, or back- Use 1 Nitrostat under your tongue every 5-10 minutes, and up to 3 tablets. If no relief- Call 911 and go to the nearest Emergency Room. -Notify the office for recurrent angina, chest pain or other concerns. You may NOT drive yourself home! Follow the medication instructions provided on your discharge. If the dosages and instructions on this sheet differ from the dosage and instructions on the bottle, follow the instructions on the bottle. [facility] is not responsible for incorrect prescription information provided by the patient during their visit. Do not stop your medications without consulting your health care provider. Please take the list with you to your next doctor's appointment.[facility] Work Phone: [phone]) 280-433807-26-2023 Evaluation note* Encounter Date Diagnosis Assessment Notes Treatment Notes Treatment Clinical Notes Sep, Trigger ring finger of right hand (ICD-10 - M65.341) Lesley presents with left ring trigger finger. At this juncture we have discussed the findings and diagnosis as well as personally reviewed appropriate imaging and performed interpretation of related testing and examination with the patient in office today. Prior medical notes from Dr. Segovia and history have been reviewed. The patient has been involved in our cooperative treatment plan and agrees to move forward with treatment at this time. The finding and diagnosis of trigger finger has been discussed at length with the patient. The mechanism of stenosing tenosynovitis and the effect on smooth tendon glide at the level of the A1 nickie have been discussed with the patient. Nonoperative treatment including splinting, activity modification and NSAIDs have been discussed with the patient. Cortisone injections have been discussed and offered as well and the risks of fat atrophy, tendon rupture and transient hyperglycemia were discussed and understood. The surgical release of the A1 nickie has been discussed along with possible complications and risks including digital nerve injury, bowstringing, wound healing issues, postoperative pain and stiffness and the possibility of the need for therapy. At this time the patient elects to proceed with splint and anti-inflammatory. Medrol Dosepak was recent today. Return if not improved for cortisone injection Sent in medrol dose pack. If no improvement may consider injection. Sep, Cubital tunnel syndrome on right (ICD-10 - G56.21) Today we have discussed cubital tunnel syndrome. We discussed that it is a compressive neuropathy of the ulnar nerve along the medial elbow at multiple sites. We discussed the clinical changes including sensation abnormalities to the ring and pinky finger as well as weakness of photogrammetric tech. Physical exam findings have also been discussed. Electromyography and nerve conduction study findings associated with ulnar neuropathy and cubital tunnel syndrome have been discussed at length with the patient. Nonoperative treatment including NSAIDs, activity modification and elbow splinting have been discussed and offered. Operative intervention of ulnar nerve decompression with or without transposition has been discussed. Complications including recurrence of symptoms, incomplete resolution of symptoms as well as neuroma formation have been discussed specifically. At this time the patient would like to proceed with conservative treatment with Medrol Dosepak. Sent in medrol dose pack. Sep, Other See orders for this visit as documented in the electronic medical record. [employer] Other 07-12-2023 Evaluation note* Encounter Date Diagnosis Assessment Notes Treatment Notes Treatment Clinical Notes Sep, Trigger ring finger of right hand (ICD-10 - M65.341) Lesley presents with left ring trigger finger. At this juncture we have discussed the findings and diagnosis as well as personally reviewed appropriate imaging and performed interpretation of related testing and examination with the patient in office today. Prior medical notes from Dr. Segovia and history have been reviewed. The patient has been involved in our cooperative treatment plan and agrees to move forward with treatment at this time. The finding and diagnosis of trigger finger has been discussed at length with the patient. The mechanism of stenosing tenosynovitis and the effect on smooth tendon glide at the level of the A1 nickie have been discussed with the patient. Nonoperative treatment including splinting, activity modification and NSAIDs have been discussed with the patient. Cortisone injections have been discussed and offered as well and the risks of fat atrophy, tendon rupture and transient hyperglycemia were discussed and understood. The surgical release of the A1 nickie has been discussed along with possible complications and risks including digital nerve injury, bowstringing, wound healing issues, postoperative pain and stiffness and the possibility of the need for therapy. At this time the patient elects to proceed with splint and anti-inflammatory. Medrol Dosepak as prescribed today. Patient should follow-up if not improved over the next 2 weeks This appears to trigger finger. We discussed the cause of this condition and the treatment options. We discussed stretching of the finger as well as massage of the palmar MCP region. We discussed the use of cortisone injection into the palmar aspect of the hand at the trigger site can be helpful in relieving painful symptoms. We also discussed the option of surgical release which can eliminate the problem. Patient voices understanding and opts to treat with anti-inflammatorie s and splinting for a week. Sep, Cubital tunnel syndrome on right (ICD-10 - G56.21) Today we have discussed cubital tunnel syndrome. We discussed that it is a compressive neuropathy of the ulnar nerve along the medial elbow at multiple sites. We discussed the clinical changes including sensation abnormalities to the ring and pinky finger as well as weakness of photogrammetric tech. Physical exam findings have also been discussed. Electromyography and nerve conduction study findings associated with ulnar neuropathy and cubital tunnel syndrome have been discussed at length with the patient. Nonoperative treatment including NSAIDs, activity modification and elbow splinting have been discussed and offered. Operative intervention of ulnar nerve decompression with or without transposition has been discussed. Complications including recurrence of symptoms, incomplete resolution of symptoms as well as neuroma formation have been discussed specifically. At this time the patient would like to proceed with conservative treatment with Medrol Dosepak. Lateral Epicondylitis, or tennis elbow, is soreness or pain on the outer part of the elbow. The pain occurs when the tendon is stretched and becomes irritated by repeated twisting of the hand, wrist, and forearm. A tendon is a tough tissue that connects muscle to bone. You also can get it from many activities that work the same muscles. Examples include gardening, painting, and using tools. Tennis elbow usually heals with rest and treatment at home. Treatments may include ice, compression, NSAIDS and/or muscle relaxers. Sep, Other See orders for this visit as documented in the electronic medical record. [employer] Other 07-12-2023 Evaluation note* Encounter Date Diagnosis Assessment Notes Treatment Notes Treatment Clinical Notes Sep, Other sequelae of cerebral infarction (ICD-10 - I69.398) Sep, Dizziness and giddiness (ICD-10 - R42) [employer] Other 06-29-2023 Evaluation note* Encounter Date Diagnosis Assessment Notes Treatment Notes Treatment Clinical Notes Aug, Acute bronchitis due to other specified organisms (ICD-10 - J20.8) Initiate antibiotics Aug, Chronic obstructive pulmonary disease with (acute) lower respiratory infection (ICD-10 - J44.0) Instructed to use Robitussin or Mucinex for cough, saline or Flonase NS for congestion, Tylenol for pain and fever. Aug, Chronic obstructive pulmonary disease with (acute) exacerbation (ICD-10 - J44.1) Increase use of LIDIA [employer] Other 06-20-2023 Evaluation note* Encounter Date Diagnosis Assessment Notes Treatment Notes Treatment Clinical Notes Aug, Ischemic cardiomyopathy (ICD-10 - I25.5) This patient is stable without activity related CP, dyspnea or lightheadedness. They are instructed to continue exercise and AHA diet plan. Aug, Chronic HFrEF (heart failure with reduced ejection fraction) (ICD-10 - I50.22) Instructed on low salt diet, exercise and daily weights. Instructed to notify office for any unexpected weight gain > 3lbs and/or increased dyspnea, difficulty breathing during sleep, worsening lower extremity swelling, chest pain or lightheadedness. Reviewed GDMT w/ beta blockers, JENNY/ARB/ARNI, MRA and SGLT-2 Aug, Type 2 diabetes mellitus with hyperglycemia (ICD-10 - E11.65) This patient is following a comprehensive diabetic treatment plan. They are checking their feet daily for calluses and nonhealing ulcers. They are being seen for yearly dilated eye examinations. Goals: SBP less than 130, LDL less than 100, FBS less than 140, AC and A1C less than 7%. They are checking their BS daily, will which are reviewed at the office visit. Continue regular routine monitoring of A1C,] Microalbumin, Dilated eye exam and Foot exam Aug, Type 2 diabetes mellitus with diabetic peripheral angiopathy without gangrene (ICD-10 - E11.51) Inspect feet daily for cuts. Walk daily. Continue ASA, Statin therapy Aug, Hyperlipidemia, mixed (ICD-10 - E78.2) Instructed on diet and exercise with continued statin therapy.Discussed the beneficial effects of lowering cholesterol in reducing the risk for cerebrovascular and cardiovascular disease. Aug, Type 2 diabetes mellitus with diabetic polyneuropathy (ICD-10 - E11.42) Inspect feet daily for cuts and calluses.Recommend diabetic shoes and inserts to prevent callus formation.Fall precautions. Aug, Mild episode of recurrent major depressive disorder (ICD-10 - F33.0) Stable, continue healthy diet, exercise and medication as prescribed Aug, Chronic bronchitis, mucopurulent (ICD-10 - J41.1) Mucinex as needed. Imperic trial of MDI? Smoking cessation Aug, Nicotine dependence, cigarettes, uncomplicated (ICD-10 - F17.210) This patient has been encouraged to quit tobacco use immediately. They are aware of the hazards associated with tobacco use, including but not limited to respiratory infections, vascular disease and cancers. Aug, High risk medication use (ICD-10 - Z79.899) Aug, group home (current) use of insulin (ICD-10 - Z79.4) Aug, Trigger ring finger of right hand (ICD-10 - M65.341) Refer to Orthopedics [employer] Other 05-15-2023 Evaluation note* Encounter Date Diagnosis Assessment Notes Treatment Notes Treatment Clinical Notes July, Type 2 diabetes mellitus with hyperglycemia (ICD-10 - E11.65) [employer] Other 05-11-2023 Evaluation note* Encounter Date Diagnosis Assessment Notes Treatment Notes Treatment Clinical Notes July, Type 2 diabetes mellitus with hyperglycemia (ICD-10 - E11.65) July, group home (current) use of insulin (ICD-10 - Z79.4) [employer] Other 04-01-2023 Chief complaint Narrative - Reported* Procedure f/u: 'still short of breath' * LESLEY QUINTERO is being seen for cardiomyopathy. * Patient presents to the office ambulatory with steady gait. Last evaluated in clinic Dr. Posey June 2022. At that time, he was initiated on losartan and Aldactone. A repeat echocardiogram showed continued decline in LVEF to 30 to 35%, an elective November 19, 2022 cardiac cath showed newly occluded circumflex disease, LVEF 35% with recommendations for medical management. He was to start Entrestobut was unable to obtain medication. Also reports the pharmacy would not fill Jardiance due to concomitant Trulicity. * He presents to the office today where his right groin cath site has healed without adverse sequela.He has a history of neurological decline, remains extremely pleasant but is a very difficult historian. He does report that it is becoming harder and harder to walk into our office due to dyspnea on exertion, remains comfortable at rest. He does not have stairs at home. No change in two-pillow orthopnea, no PND. He does have sleep apnea but is intolerant to CPAP machine. No evidence of volume overload on exam. He does reports feeling lightheaded a lot , symptoms consistent with postural ortho static hypotension. Denies any prior syncopal episodes. * SJM 2272 dual-chamber permanent pacemaker with ventricular pacing greater than 99% with AV paced QRS 150-176. EF has continued to decline: * June 2017 EF 50% * Dec 2020 EF 40% * Oct 2022 EF 30-35% * At time of cardiac cath, Dr. Posey had discussed ICD indication. At this time, likely meets qualification for BiV upgrade due to functional class III dyspnea on exertion and high percent V pacing with QRS greater than 160. Reviewed with patient and he agrees to consult with to discuss. * GDMT: his blood pressure is borderline in the office today and likely will not be able to tolerate low-dose Entresto, nonetheless I will try to follow-up on prescription coverage. Unclear why pharmacy would decline Jardiance - will contact. -[facility] 250 DO Work Phone: [phone]) 592-114601-18-2023 Evaluation note* Encounter Date Diagnosis Assessment Notes Treatment Notes Treatment Clinical Notes Mar, ASHD (arteriosclerotic heart disease) (ICD-10 - I25.10) This patient is stable without activity related CP, dyspnea or lightheadedness. They are instructed to continue exercise and AHA diet plan. Mar, Essential hypertension (ICD-10 - I10) This patient is instructed to consume a healthy, low-fat, low-salt diet. They are also encouraged to continue exercise to achieve/maintain a normal BMI. Mar, Paroxysmal atrial fibrillation (ICD-10 - I48.0) This patient is rate controlled. This patient is anticoagulated to prevent thromboembolic events. They are maintaining regular scheduled appts with their senior integration architect. Mar, Type 2 diabetes mellitus with hyperglycemia, without long-term current use of insulin (ICD-10 - E11.65) This patient is following a comprehensive diabetic treatment plan. They are checking their feet daily for calluses and nonhealing ulcers. They are being seen for yearly dilated eye examinations. Goals: SBP less than 130, LDL less than 100, FBS less than 140, AC and A1C less than 7%. They are checking their BS daily, will which are reviewed at the office visit. Latest A1C w/ average BS > 200 - stressed importance of improved BS control and benefits Mar, Type 2 diabetes mellitus with diabetic peripheral angiopathy without gangrene, without long-term current use of insulin (ICD-10 - E11.51) Inspect feet daily for cuts and calluses. Walk daily to improve circulation. Mar, Type 2 diabetes mellitus with diabetic polyneuropathy, without long-term current use of insulin (ICD-10 - E11.42) Inspect feet daily for cuts and calluses. Improve BS control w/ A1C goal < 7% Mar, Hyperlipidemia, mixed (ICD-10 - E78.2) Diet and exercise with continued statin therapy. Mar, Chronic bronchitis, mucopurulent (ICD-10 - J41.1) Smoking cessation stressed w/ instructions to quit immediately. Yearly LDCT scan recommended for lung cancer screening Mar, Nicotine dependence, cigarettes, uncomplicated (ICD-10 - F17.210) This patient has been encouraged to quit tobacco use immediately. They are aware of the hazards associated with tobacco use, including but not limited to respiratory infections, vascular disease and cancers. Mar, Mild episode of recurrent major depressive disorder (ICD-10 - F33.0) Mood much improved per his . Still w/ insomnia but anger and agitation much less. However, this may cause prolongation of the QT interval, will check med list, but may have to d/c medications. May discuss w/ [employer]. Mar, group home (current) use of insulin (ICD-10 - Z79.4) [employer] Other 01-18-2023 Evaluation note* Encounter Date Diagnosis Assessment Notes Treatment Notes Treatment Clinical Notes Mar, ASHD (arteriosclerotic heart disease) (ICD-10 - I25.10) [employer] Other 01-10-2023 Evaluation note* Encounter Date Diagnosis Assessment Notes Treatment Notes Treatment Clinical Notes Mar, High risk medication use (ICD-10 - Z79.899) [employer] Other 01-09-2023 Evaluation note* Encounter Date Diagnosis Assessment Notes Treatment Notes Treatment Clinical Notes Mar, High risk medication use (ICD-10 - Z79.899) [facility] [employer] Other [place] complaint Narrative - Reported* Procedure f/u: 'still short of breath' * LESLEY QUINTERO is being seen for cardiomyopathy. [facility] 250 DO Work Phone: [place] complaint Narrative - Reported* Procedure f/u: 'still short of breath' * LESLEY QUINTERO is being seen for cardiomyopathy. [facility] Work Phone: [place] complaint Narrative - ReportedMICADILIA QUINTERO is being seen for a consultation for. [facility] [address] DO Work Phone: Evaluation noteNo assessment information available [facility] Work Phone: Evaluation noteNo InformationNortE[facility] Other Evaluation note* Diagnosis Biventricular ICD (implantable cardioverter-defibrillator) in place- Primary Ischemic cardiomyopathy Other specified forms of chronic ischemic heart disease BMI 33.0-33.9,adult Current every day smoker Paroxysmal atrial fibrillation (CMS/HCC) Atrial fibrillation Atherosclerosis of [place] coronary artery of [place] heart without angina pectoris documented in this encounter [facility] Work Phone: Evaluation note* Diagnosis Onset Date Resolution Status Diabetes acute Elevated cholesterol acute HTN (hypertension) acute group home (current) use of insulin acute ASHD (arteriosclerotic heart disease) chronic [facility] Work Phone: Evaluation note* Diagnosis Shortness of breath- Primary Cardiac pacemaker in situ H/O sick sinus syndrome Biventricular ICD (implantable cardioverter-defibrillator) in place Ischemic cardiomyopathy Other specified forms of chronic ischemic heart disease Congestive heart failure, unspecified HF chronicity, unspecified heart failure type (CMS/HCC) LBBB (left bundle branch block) Other left bundle branch block S/P CABG x 4 Postsurgical aortocoronary bypass status Atherosclerosis of ey[place] coronary artery of [place] heart without angina pectoris Primary hypertension Unspecified essential hypertension Mixed hyperlipidemia BMI 35.0-35.9,adult Current every day smoker Encounter for medication review and counseling Encounter to discuss treatment options documented in this encounter [facility] Work Phone: Evaluation note* Diagnosis Ischemic cardiomyopathy Other specified forms of chronic ischemic heart disease Cardiac pacemaker in situ documented in this encounter [facility] Work Phone: Evaluation note* Diagnosis Cardiac pacemaker in situ documented in this encounter [facility] Work Phone: Evaluation note* Diagnosis Cardiac pacemaker in situ documented in this encounter [facility] Work Phone: Evaluation note* Diagnosis Biventricular ICD (implantable cardioverter-defibrillator) in place Ischemic cardiomyopathy Other specified forms of chronic ischemic heart disease 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 Paroxysmal atrial fibrillation (Multi) Atrial fibrillation S/P CABG x 4 Postsurgical aortocoronary bypass status Status post angioplasty Postsurgical percutaneous transluminal coronary angioplasty status Primary hypertension Unspecified essential hypertension Mixed hyperlipidemia High risk medication use Chronotropic incompetence with sinus node dysfunction Sinoatrial node dysfunction BMI 35.0-35.9,adult Current every day smoker Paroxysmal atrial fibrillation (Multi) Atrial fibrillation High risk medication use documented in this encounter [facility] Work Phone: Evaluation note* Diagnosis Onset Date Resolution Status Elevated cholesterol acute HTN (hypertension) acute ASHD (arteriosclerotic heart disease) chronic Elevated cholesterol acute HTN (hypertension) acute Type 2 diabetes mellitus with hyperglycemia acute ASHD (arteriosclerotic heart disease) chronic Screening PSA (prostate specific antigen) noneactive [facility] Work Phone: Evaluation note* Diagnosis Shortness of breath Paroxysmal atrial fibrillation (Multi) Atrial fibrillation High risk medication use documented in this encounter [facility] Work Phone: History general Narrative - Reported* Type Description Date Medical History Obesity Medical History Type 2 diabetes antonella itus with hyperglycemia, without long-term current use of insulin Medical History Mild episode of recurrent major depressive disorder Medical History Elevated alanine aminotransferas e (ALT) level Medical History Cardiac pacemaker Medical History Epilepsy seizure, generalized, c onvulsive Medical History Primary insomnia Medical History Chronic bronchitis, mucopurulent Medical History Mild cognitive impairment Medical History Cerebral atherosclerosis Medical History Lumbar spondylosis Medical History ASHD (arteriosclerotic heart dis ease) Medical History Type 2 diabetes antonella itus with diabetic polyneuropathy, without long-term current use of insulin Medical History Paroxysmal atrial fibrillation Medical History Restless leg syndrome Medical History Gastro-esophageal re flux disease with esophagitis, without bleeding Medical History Bilateral carotid artery stenosi s Medical History Essential hypertension Medical History Type 2 diabetes antonella itus with diabetic peripheral angiopathy without gangrene, without long-term current use of insulin Medical History Hyperlipidemia, mixed Medical History Constipation, chronic Medical History Nicotine dependence, cigarettes, uncomplicated Medical History Systolic dysfunction Medical History COVID-19 Medical History NSTEMI (non-ST elevated myocardi al infarction) Medical History Ischemic cardiomyopathy Medical History Sebaceous cyst Medical History Fatigue Medical History Chest pain, atypical Medical History Pain of right calf Medical History Sialadenitis Medical History Parotid mass Medical History Paresthesia Medical History Complete heart block Medical History Perforated tympanic membrane of both ears on examination Surgical History heart stent Surgical History brain surgery Surgical History knee surgery Surgical History appendectomy Surgical History tonsillectomy Surgical History hemorrhoidectomy Surgical History saliva gland removal Surgical History angioplasty Surgical History PET placement Surgical History pace maker Surgical History COLONOSCOPY Surgical History CARDAC CATHETERIZATION, LEFT HE ART Hospitalization History see above [employer] Other History general Narrative - Reported* Type Description Date Medical History Obesity Medical History Type 2 diabetes antonella itus with hyperglycemia, without long-term current use of insulin Medical History Mild episode of recurrent major depressive disorder Medical History Elevated alanine aminotransferas e (ALT) level Medical History Cardiac pacemaker Medical History Epilepsy seizure, generalized, c onvulsive Medical History Primary insomnia Medical History Chronic bronchitis, mucopurulent Medical History Mild cognitive impairment Medical History Cerebral atherosclerosis Medical History Lumbar spondylosis Medical History ASHD (arteriosclerotic heart dis ease) Medical History Type 2 diabetes antonella itus with diabetic polyneuropathy, without long-term current use of insulin Medical History Paroxysmal atrial fibrillation Medical History Restless leg syndrome Medical History Gastro-esophageal re flux disease with esophagitis, without bleeding Medical History Bilateral carotid artery stenosi s Medical History Essential hypertension Medical History Type 2 diabetes antonella itus with diabetic peripheral angiopathy without gangrene, without long-term current use of insulin Medical History Hyperlipidemia, mixed Medical History Constipation, chronic Medical History Nicotine dependence, cigarettes, uncomplicated Medical History Systolic dysfunction Medical History COVID-19 Medical History NSTEMI (non-ST elevated myocardi al infarction) Medical History Ischemic cardiomyopathy Medical History Sebaceous cyst Medical History Fatigue Medical History Chest pain, atypical Medical History Pain of right calf Medical History Sialadenitis Medical History Parotid mass Medical History Paresthesia Medical History Complete heart block Medical History Perforated tympanic membrane of both ears on examination Surgical History heart stent Surgical History brain surgery Surgical History knee surgery Surgical History appendectomy Surgical History tonsillectomy Surgical History hemorrhoidectomy Surgical History saliva gland removal Surgical History angioplasty Surgical History PET placement Surgical History pace maker Surgical History COLONOSCOPY 2020 Surgical History CARDAC CATHETERIZATION, LEFT HE ART Hospitalization History see above [employer] Other History general Narrative - Reported* Type Description Date Medical History Obesity Medical History Type 2 diabetes antonella itus with hyperglycemia, without long-term current use of insulin Medical History Mild episode of recurrent major depressive disorder Medical History Elevated alanine aminotransferas e (ALT) level Medical History Cardiac pacemaker Medical History Epilepsy seizure, generalized, c onvulsive Medical History Primary insomnia Medical History Chronic bronchitis, mucopurulent Medical History Mild cognitive impairment Medical History Cerebral atherosclerosis Medical History Lumbar spondylosis Medical History ASHD (arteriosclerotic heart dis ease) Medical History Type 2 diabetes antonella itus with diabetic polyneuropathy, without long-term current use of insulin Medical History Paroxysmal atrial fibrillation Medical History Restless leg syndrome Medical History Gastro-esophageal re flux disease with esophagitis, without bleeding Medical History Bilateral carotid artery stenosi s Medical History Essential hypertension Medical History Type 2 diabetes antonella itus with diabetic peripheral angiopathy without gangrene, without long-term current use of insulin Medical History Hyperlipidemia, mixed Medical History Constipation, chronic Medical History Nicotine dependence, cigarettes, uncomplicated Medical History Systolic dysfunction Medical History COVID-19 Medical History NSTEMI (non-ST elevated myocardi al infarction) Medical History Ischemic cardiomyopathy Medical History Sebaceous cyst Medical History Fatigue Medical History Chest pain, atypical Medical History Pain of right calf Medical History Sialadenitis Medical History Parotid mass Medical History Paresthesia Medical History Complete heart block Medical History Perforated tympanic membrane of both ears on examination Medical History Central Vestibular Vertigo Surgical History heart stent Surgical History brain surgery Surgical History knee surgery Surgical History appendectomy Surgical History tonsillectomy Surgical History hemorrhoidectomy Surgical History saliva gland removal Surgical History angioplasty Surgical History PET placement Surgical History pace maker Surgical History COLONOSCOPY 2020 Surgical History CARDAC CATHETERIZATION, LEFT HE ART Hospitalization History see above [employer] Other History general Narrative - Reported* Type Description Date Medical History Obesity Medical History Type 2 diabetes antonella itus with hyperglycemia, without long-term current use of insulin Medical History Mild episode of recurrent major depressive disorder Medical History Elevated alanine aminotransferas e (ALT) level Medical History Cardiac pacemaker Medical History Epilepsy seizure, generalized, c onvulsive Medical History Primary insomnia Medical History Chronic bronchitis, mucopurulent Medical History Mild cognitive impairment Medical History Cerebral atherosclerosis Medical History Lumbar spondylosis Medical History ASHD (arteriosclerotic heart dis ease) Medical History Type 2 diabetes antonella itus with diabetic polyneuropathy, without long-term current use of insulin Medical History Paroxysmal atrial fibrillation Medical History Restless leg syndrome Medical History Gastro-esophageal re flux disease with esophagitis, without bleeding Medical History Bilateral carotid artery stenosi s Medical History Essential hypertension Medical History Type 2 diabetes antonella itus with diabetic peripheral angiopathy without gangrene, without long-term current use of insulin Medical History Hyperlipidemia, mixed Medical History Constipation, chronic Medical History Nicotine dependence, cigarettes, uncomplicated Medical History Systolic dysfunction Medical History COVID-19 Medical History NSTEMI (non-ST elevated myocardi al infarction) Medical History Ischemic cardiomyopathy Medical History Sebaceous cyst Medical History Fatigue Medical History Chest pain, atypical Medical History Pain of right calf Medical History Sialadenitis Medical History Parotid mass Medical History Paresthesia Medical History Complete heart block Medical History Perforated tympanic membrane of both ears on examination Medical History Central Vestibular Vertigo Surgical History heart stent Surgical History brain surgery Surgical History knee surgery Surgical History appendectomy Surgical History tonsillectomy Surgical History hemorrhoidectomy Surgical History saliva gland removal Surgical History angioplasty Surgical History PET placement Surgical History pace maker Surgical History COLONOSCOPY 2020 Surgical History CARDAC CATHETERIZATION, LEFT HE ART Surgical History LHC w/o intervention 10/2022 Hospitalization History see above [employer] Other Hishfai general Narrative - Reported* Type Description Date Medical History Obesity Medical History Type 2 diabetes antonella itus with hyperglycemia, without long-term current use of insulin Medical History Mild episode of recurrent major depressive disorder Medical History Elevated alanine aminotransferas e (ALT) level Medical History Cardiac pacemaker Medical History Epilepsy seizure, generalized, c onvulsive Medical History Primary insomnia Medical History Chronic bronchitis, mucopurulent Medical History Mild cognitive impairment Medical History Cerebral atherosclerosis Medical History Lumbar spondylosis Medical History ASHD (arteriosclerotic heart dis ease) Medical History Type 2 diabetes antonella itus with diabetic polyneuropathy, without long-term current use of insulin Medical History Paroxysmal atrial fibrillation Medical History Restless leg syndrome Medical History Gastro-esophageal re flux disease with esophagitis, without bleeding Medical History Bilateral carotid artery stenosi s Medical History Essential hypertension Medical History Type 2 diabetes antonella itus with diabetic peripheral angiopathy without gangrene, without long-term current use of insulin Medical History Hyperlipidemia, mixed Medical History Constipation, chronic Medical History Nicotine dependence, cigarettes, uncomplicated Medical History COVID-19 Medical History NSTEMI (non-ST elevated myocardi al infarction) Medical History Ischemic cardiomyopathy Medical History Sebaceous cyst Medical History Fatigue Medical History Chest pain, atypical Medical History Pain of right calf Medical History Sialadenitis Medical History Parotid mass Medical History Paresthesia Medical History Complete heart block Medical History Perforated tympanic membrane of both ears on examination Medical History Central Vestibular Vertigo Medical History HFrEF Surgical History heart stent Surgical History brain surgery Surgical History knee surgery Surgical History appendectomy Surgical History tonsillectomy Surgical History hemorrhoidectomy Surgical History saliva gland removal Surgical History angioplasty Surgical History PET placement Surgical History pace maker Surgical History COLONOSCOPY 2020 Surgical History CARDAC CATHETERIZATION, LEFT HE ART Surgical History [facility] w/o intervention 10/2022 Hospitalization History see above [employer] Other History general Narrative - Reported* Type Description Date Medical History Obesity Medical History Type 2 diabetes antonella itus with hyperglycemia, without long-term current use of insulin Medical History Mild episode of recurrent major depressive disorder Medical History Elevated alanine aminotransferas e (ALT) level Medical History Cardiac pacemaker Medical History Epilepsy seizure, generalized, c onvulsive Medical History Primary insomnia Medical History Chronic bronchitis, mucopurulent Medical History Mild cognitive impairment Medical History Cerebral atherosclerosis Medical History Lumbar spondylosis Medical History ASHD (arteriosclerotic heart dis ease) Medical History Type 2 diabetes antonella itus with diabetic polyneuropathy, without long-term current use of insulin Medical History Paroxysmal atrial fibrillation Medical History Restless leg syndrome Medical History Gastro-esophageal re flux disease with esophagitis, without bleeding Medical History Bilateral carotid artery stenosi s Medical History Essential hypertension Medical History Type 2 diabetes antonella itus with diabetic peripheral angiopathy without gangrene, without long-term current use of insulin Medical History Hyperlipidemia, mixed Medical History Constipation, chronic Medical History Nicotine dependence, cigarettes, uncomplicated Medical History COVID-19 Medical History NSTEMI (non-ST elevated myocardi al infarction) Medical History Ischemic cardiomyopathy Medical History Sebaceous cyst Medical History Fatigue Medical History Chest pain, atypical Medical History Pain of right calf Medical History Sialadenitis Medical History Parotid mass Medical History Paresthesia Medical History Complete heart block Medical History Perforated tympanic membrane of both ears on examination Medical History Central Vestibular Vertigo Medical History HFrEF Surgical History heart stent Surgical History brain surgery Surgical History knee surgery Surgical History appendectomy Surgical History tonsillectomy Surgical History hemorrhoidectomy Surgical History saliva gland removal Surgical History angioplasty Surgical History PET placement Surgical History ICD w/ BiV PM 2022 Surgical History COLONOSCOPY 2020 Surgical History CARDAC CATHETERIZATION, LEFT HE ART Surgical History LHC w/o intervention 10/2022 Hospitalization History see above [employer] Other History general Narrative - Reported* Type Description Date Medical History Obesity Medical History Type 2 diabetes antonella itus with hyperglycemia, without long-term current use of insulin Medical History Mild episode of recurrent major depressive disorder Medical History Elevated alanine aminotransferas e (ALT) level Medical History Cardiac pacemaker Medical History Epilepsy seizure, generalized, c onvulsive Medical History Primary insomnia Medical History Chronic bronchitis, mucopurulent Medical History Mild cognitive impairment Medical History Cerebral atherosclerosis Medical History Lumbar spondylosis Medical History ASHD (arteriosclerotic heart dis ease) Medical History Type 2 diabetes antonella itus with diabetic polyneuropathy, without long-term current use of insulin Medical History Paroxysmal atrial fibrillation Medical History Restless leg syndrome Medical History Gastro-esophageal re flux disease with esophagitis, without bleeding Medical History Bilateral carotid artery stenosi s Medical History Essential hypertension Medical History Type 2 diabetes antonella itus with diabetic peripheral angiopathy without gangrene, without long-term current use of insulin Medical History Hyperlipidemia, mixed Medical History Constipation, chronic Medical History Nicotine dependence, cigarettes, uncomplicated Medical History NSTEMI (non-ST elevated myocardi al infarction) Medical History Ischemic cardiomyopathy Medical History Parotid mass Medical History Complete heart block Medical History Perforated tympanic membrane of both ears on examination Medical History Central Vestibular Vertigo Medical History HFrEF Surgical History brain surgery Surgical History knee surgery Surgical History appendectomy Surgical History tonsillectomy Surgical History hemorrhoidectomy Surgical History Excision of parotid mass tumor 2019 Surgical History ICD w/ BiV PM 2022 Surgical History COLONOSCOPY 2020 Surgical History LHC w/o intervention 10/2022 Surgical History LHC w/o intervention 12/2020 Surgical History PTCA/stent RCA 2009 Surgical History C 2010 Surgical History PCI/stent LCx 2014 Hospitalization History see above [employer] Other History of Present illness Narrative* The patient presents with ischemic heart failure with reduced ejection fraction. The patient's lastLV ejection fraction was 30-35%. The patient is NYHA functional Class III. This is stage C heart failure. * Symptoms: denies lower extremity edema, stable dyspnea on exertion, stable fatigue, stable exerciseintolerance, denies orthopnea and denies paroxysmal nocturnal dyspnea. Associated symptoms include no chest pain. * Medications: the patient is adherent with his medication regimen. He denies medication side effects. [employer] Work Phone: History of Present illness Narrative* The patient presents with ischemic heart failure with reduced ejection fraction. The patient's lastLV ejection fraction was 30-35%. The patient is NYHA functional Class III. This is stage C heart failure. * Symptoms: denies lower extremity edema, stable dyspnea on exertion, stable fatigue, stable exerciseintolerance, denies orthopnea and denies paroxysmal nocturnal dyspnea. Associated symptoms include no chest pain. * Medications: the patient is adherent with his medication regimen. He denies medication side effects. [facility] Work Phone: History of Present illness Narrative* The patient presents with ischemic heart failure with reduced ejection fraction. The patient's lastLV ejection fraction was 30-35%. The patient is NYHA functional Class III. This is stage C heart failure. * Symptoms: denies lower extremity edema, stable dyspnea on exertion, stable fatigue, stable exerciseintolerance, denies orthopnea and denies paroxysmal nocturnal dyspnea. Associated symptoms include no chest pain. * Medications: the patient is adherent with his medication regimen. He denies medication side effects. [employer] Work Phone: History of Present illness Narrative* He is referred here by Ivania Velazquez CNP for evaluation of arrhythmia and device * He has dyspnea with exertion and hospitalization for heart failure. * It is hard for him to ambulate due to dyspnea. * He denies any palpitation, lightheadedness, near syncope, or syncope since pacemaker was implanted in past. * His LVEF has declined over the past several years. Despite optimal GMT for heart failure, his repeat LVEf is 30-35%.is QRS is 170 ms. * He is referred for update to biventricular ICD. * See ROS, PMH, FMH, and surgical history for details. * NYHA III C HF, LVEF Dec 2020 40%, LVEF Oct 2022 30-35% after GMT * Neuropathy * Personal review of ECG and cardiac data reviewed * Outside records: * OV with Ivania Calabrese Marcus Nov 2022 * Cath Oct 2022. On medical management. Occluded LCx. * Echo LVEF 30-35%. * ECG 2022 Appropriate pacing. RAD. Paced QRS 170 ms. LBBB. * Imp / Plan * Ischemic CM. NYHA III C heart failure. LBBB with QRS 170 ms. Chronotropic incompetence. Sinus node dysfunction. s/p dual chamber pacemaker. Treatment options discussed. Ynsect decision tool. For upgrade to biventricular ICD. Risks, benefits, and imponderables reviewed. Informed consent obtained. For procedure under anesthesia for patient for back discomfort and neuropathy. * CAD, chronic. Stable. Medical management. See problem list.Reviewed meds. Continue meds. Discussed refills. * Paroxysmal atrial fibrillation. Reviewed meds. Continue meds. Hold Warfarin 4 days prior to upgradeof device. Bridge with Lovenox. * Neuropathy. May be progressing per family report. * Tobacco use * HTN, hyperlipidemia, and DM noted * AHA recommendations for exercise, diet, and behavioral modification reviewed with pt. * The patient, , and I discussed the mechanism of arrhythmia,normal conduction, LVEF, what are indications for ICD, what are indications for biventricular device, pacemaker removal, Ynsect decision tool, informed consent, Lovenox bridge, possibility of unable to place CS lead, device followup, tobacco cessation for greater than 3 minutes, if and what medication refills needed, treatment options, brochure for SVT, meds vs ablation, Holter results, risks, benefits, and imponderables. [employer] lifestyle changes and behavioral modification discussed. All questions answered in detail. Counseling over 50% visit regarding above. Patient and family appreciative of care. -[facility] DO Work Phone: Reason for referral (narrative)* Reason Referral for trigger finger Diagnosis 1 Trigger ring finger of right hand (M65.341) Referral Organization [facility] C iliana Referring Provider First Name Lee Referring Provider Last Name Juliette Referring Provider Specialty Internal Me dicine Referred Organization [facility] Referred Provider Acacia Sierra Referred Address [address] [place] [place],[address] Referred Provider Specialty Orthopedic S urgery Referral Priority Routine General Notes Patient w/ trigger f marco, ring finger of right hand. This interferes w/ ADL and golf and he is requesting further treatment. [employer] Other Reason for referral (narrative)* Consultation (Routine) - Authorized Specialty Diagnoses / Procedures Referred By Chica chau Referred To Contact Cardiology Diagnoses Biventricular ICD (implantable cardioverter-defibrillator) in place Ischemic cardiomyopathy Procedures Follow Up In Cardiology Ivania Velazquez APRN-CNP [address] [facility] [address], [address] [place] [address] Jesus Posey, [address] [facility] [address], [facility] [address] [place] [address] Referral ID Status Reason Start Date Expiration Date V isits Requested Visits Authorized [id number] Authorized 01/12/2023 01/12/2024 1 1 [facility] Work Phone: Chief Complaint * LESLEY QUINTERO is being seen for an annual follow-up of. * Patient 66-year-old gentleman returns for follow-up and doing very well he denies any cardiovascular or neurovascular heart failure events. Unfortunately continues smoking. He has a history of CABG with postoperative stroke, sick sinus syndrome and currently with pacemaker and its functioning appropriately. Today's ECG reveals atrial pacing with ventricular tracking. He has paroxysmal A. fib ongoing tobacco use, and remains on high risk medical therapies as noted with good hemodynamics. We havecounseled him on tobacco cessation. He continues exercising and we have encouraged him to get back to golfing and exercise on a regular basis. * We will otherwise obtain appropriate laboratories and follow-up in 1 year Amiodarone Order sent to [facility] for testing due in January* Patient EKG in office due to new medications ordered per Ivania Yeager NP. Medications reviewed and updated. Patient denies any current cardiac symptoms. Patient states has been tolerating his new anti depressants well, managed with PCP. * EKG reviewed per Ivania Yeager NP V.O ok to continue. QTC is fine. * Patient EKG in office due to new medications ordered per Ivania Yeager NP. Medications reviewedand updated. Patient denies any current cardiac symptoms. Patient states has been tolerating his new anti depressants well, managed with PCP. * EKG reviewed per Ivania Yeager NP V.O ok to continue. QTC is fine. * LESLEY QUINTERO is being seen for an annual follow-up of. * Patient is a 67-year-old gentleman returns for follow-up with significant shortness of breath and exertional dyspnea that is noted on today's inspection and examination. His is even complaining about this. He has no angina. He has no hospitalizations or nitrate usage. * He has known ASHD, remote [place], history of multivessel CABG x4 in 2018, sleep apnea, paroxysmal atrial fibrillation, currently on high risk medical therapies including amiodarone and warfarin, diabetesmellitus, ongoing tobacco use approximately a pack a day, COPD and pacemaker due to sick sinus syndrome, and history of stroke. * Today's ECG reveals AV sequentially paced rhythm with underlying sinus mechanism, * Review of his last echocardiogram from 2020 reveals reduced left ventricular function with ejectionfraction of 40% * He is hemodynamically stable, he is not on complete GDMT per review of his medications given his above-mentioned histories. * Recommendations, initiate losartan 25 daily spironolactone 25 daily, echocardiogram in 3 to 4 months to reassess LV functional assessment, follow- up with nurse practitioner thereafterwards, smoking cessation counseling for at least 5 minutes. * LESLEY QUINTERO is being seen for an annual follow-up of. * Patient is a 67-year-old gentleman returns for follow-up with significant shortness of breath and exertional dyspnea that is noted on today's inspection and examination. His is even complaining about this. He has no angina. He has no hospitalizations or nitrate usage. * He has known ASHD, remote [place], history of multivessel CABG x4 in 2018, sleep apnea, paroxysmal atrial fibrillation, currently on high risk medical therapies including amiodarone and warfarin, diabetesmellitus, ongoing tobacco use approximately a pack a day, COPD and pacemaker due to sick sinus syndrome, and history of stroke. * Today's ECG reveals AV sequentially paced rhythm with underlying sinus mechanism, * Review of his last echocardiogram from 2020 reveals reduced left ventricular function with ejectionfraction of 40% * He is hemodynamically stable, he is not on complete GDMT per review of his medications given his above-mentioned histories. * Recommendations, initiate losartan 25 daily spironolactone 25 daily, echocardiogram in 3 to 4 months to reassess LV functional assessment, follow- up with nurse practitioner thereafterwards, smoking cessation counseling for at least 5 minutes. Family History No Family History Records FoundUnknown Family Member Name Dates Details Family history of acute myoc ardial infarction: Sister, Father(V17.3, Z82.49) Status:Active Family history of malignant neoplasm of bone: Mother(V16.8, Z80.8) Status:Active Family history of malignant neoplasm of ovary: Sister(V16.41, Z80.41) Status:Active Unknown Family Member Name Dates Details Family history of acute myoc ardial infarction: Sister, Father(V17.3, Z82.49) Status:Active Family history of malignant neoplasm of ovary: Sister(V16.41, Z80.41) Status:Active Family history of malignant neoplasm of bone: Mother(V16.8, Z80.8) Status:Active Unknown Family Member Name Dates Details Family history of acute myoc ardial infarction: Sister, Father(V17.3, Z82.49) Status:Active Family history of malignant neoplasm of ovary: Sister(V16.41, Z80.41) Status:Active Family history of malignant neoplasm of bone: Mother(V16.8, Z80.8) Status:Active Unknown Family Member Name Dates Details Family history of acute myoc ardial infarction: Sister, Father(V17.3, Z82.49) Status:Active Family history of malignant neoplasm of ovary: Sister(V16.41, Z80.41) Status:Active Family history of malignant neoplasm of bone: Mother(V16.8, Z80.8) Status:Active Relationship Condition Age at Onset Recorded Date/T lynn sister Malignant neoplasm of ovary Unknown Not Specified Malignant neoplasm of bone Unknown Unknown Family Member Name Dates Details Family history of acute myoc ardial infarction: Sister, Father(V17.3, Z82.49) Status:Active Family history of malignant neoplasm of ovary: Sister(V16.41, Z80.41) Status:Active Family history of malignant neoplasm of bone: Mother(V16.8, Z80.8) Status:Active Unknown Family Member Name Dates Details Family history of acute myoc ardial infarction: Sister, Father(V17.3, Z82.49) Status:Active Family history of malignant neoplasm of ovary: Sister(V16.41, Z80.41) Status:Active Family history of malignant neoplasm of bone: Mother(V16.8, Z80.8) Status:Active Unknown Family Member Name Dates Details Family history of acute myoc ardial infarction: Sister, Father(V17.3, Z82.49) Status:Active Family history of malignant neoplasm of ovary: Sister(V16.41, Z80.41) Status:Active Family history of malignant neoplasm of bone: Mother(V16.8, Z80.8) Status:Active Unknown Family Member Name Dates Details Family history of acute myoc ardial infarction: Sister, Father(V17.3, Z82.49) Status:Active Family history of malignant neoplasm of ovary: Sister(V16.41, Z80.41) Status:Active Family history of malignant neoplasm of bone: Mother(V16.8, Z80.8) Status:Active Unknown Family Member Name Dates Details Family history of acute myoc ardial infarction: Sister, Father(V17.3, Z82.49) Status:Active Family history of malignant neoplasm of ovary: Sister(V16.41, Z80.41) Status:Active Family history of malignant neoplasm of bone: Mother(V16.8, Z80.8) Status:Active Unknown Family Member Name Dates Details Family history of acute myoc ardial infarction: Sister, Father(V17.3, Z82.49) Status:Active Family history of malignant neoplasm of ovary: Sister(V16.41, Z80.41) Status:Active Family history of malignant neoplasm of bone: Mother(V16.8, Z80.8) Status:Active Unknown Family Member Name Dates Details Family history of acute myoc ardial infarction: Sister, Father(V17.3, Z82.49) Status:Active Family history of malignant neoplasm of ovary: Sister(V16.41, Z80.41) Status:Active Family history of malignant neoplasm of bone: Mother(V16.8, Z80.8) Status:Active Unknown Family Member Name Dates Details Family history of acute myoc ardial infarction: Sister, Father(V17.3, Z82.49) Status:Active Family history of malignant neoplasm of ovary: Sister(V16.41, Z80.41) Status:Active Family history of malignant neoplasm of bone: Mother(V16.8, Z80.8) Status:Active Unknown Family Member Name Dates Details Family history of malignant neoplasm of bone: Mother(V16.8, Z80.8) Status:Active Family history of malignant neoplasm of ovary: Sister(V16.41, Z80.41) Status:Active Family history of acute myoc ardial infarction: Sister, Father(V17.3, Z82.49) Status:Active Unknown Family Member Name Dates Details Family history of acute myoc ardial infarction: Sister, Father(V17.3, Z82.49) Status:Active Family history of malignant neoplasm of ovary: Sister(V16.41, Z80.41) Status:Active Family history of malignant neoplasm of bone: Mother(V16.8, Z80.8) Status:Active Relationship Condition Age at Onset Recorded Date/T lynn sister Malignant neoplasm of ovary Unknown Not Specified Malignant neoplasm of bone Unknown father History of heart surgery Unknown Myocardial infarction Unknown Type 2 diabetes mellitus Unknown brother Malignant neoplasm of pancreas Unknown Unknown Family Member Name Dates Details Family history of acute myoc ardial infarction: Sister, Father(V17.3, Z82.49) Status:Active Family history of malignant neoplasm of ovary: Sister(V16.41, Z80.41) Status:Active Family history of malignant neoplasm of bone: Mother(V16.8, Z80.8) Status:Active Unknown Family Member Name Dates Details Family history of acute myoc ardial infarction: Sister, Father(V17.3, Z82.49) Status:Active Family history of malignant neoplasm of ovary: Sister(V16.41, Z80.41) Status:Active Family history of malignant neoplasm of bone: Mother(V16.8, Z80.8) Status:Active Unknown Family Member Name Dates Details Family history of acute myoc ardial infarction: Sister, Father(V17.3, Z82.49) Status:Active Family history of malignant neoplasm of ovary: Sister(V16.41, Z80.41) Status:Active Family history of malignant neoplasm of bone: Mother(V16.8, Z80.8) Status:Active Unknown Family Member Name Dates Details Family history of acute myoc ardial infarction: Sister, Father(V17.3, Z82.49) Status:Active Family history of malignant neoplasm of ovary: Sister(V16.41, Z80.41) Status:Active Family history of malignant neoplasm of bone: Mother(V16.8, Z80.8) Status:Active Unknown Family Member Name Dates Details Family history of acute myoc ardial infarction: Sister, Father(V17.3, Z82.49) Status:Active Family history of malignant neoplasm of ovary: Sister(V16.41, Z80.41) Status:Active Family history of malignant neoplasm of bone: Mother(V16.8, Z80.8) Status:Active Relationship Condition Age at Onset Recorded Date/T lynn sister Malignant neoplasm of ovary Unknown Not Specified Malignant neoplasm of bone Unknown Unknown father History of heart surgery Unknown Myocardial infarction Unknown Type 2 diabetes mellitus Unknown brother Malignant neoplasm of pancreas Unknown father Hypertension Unknown Heart disease Unknown grandparent Unknown Not Specified Unknown Malignant neoplasm Unknown sister History of ovarian cancer Unknown Chief Complaint and Reason for Visit Chief Complaint SSS Chief Complaint SSS z79.899 i48.0 Chief Complaint z79.899 i48.0 sss Chief Complaint sss AFCHD, ischemic cardiomyopathy, SOB, RBBB AFCHD, ischemic cardiomyopathy, SOB, RBBB Chief Complaint AFCHD, ischemic card iomyopathy, SOB, RBBB AFCHD, ischemic cardiomyopathy, SOB, RBBB sss Chief Complaint i48.0 z79.899 Toe Pain, Color Changes 3 month follow up Reason for Visit Diabetes Elevated cholesterol HTN (hypertension) 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 ASHD (arteriosclerotic heart disease) Chief Complaint 3 month follow up wellness Reason for Visit Elevated cholesterol HTN (hypertension) ASHD (arteriosclerotic heart disease) Elevated cholesterol HTN (hypertension) Type 2 diabetes mellitus with hyperglycemia ASHD (arteriosclerotic heart disease) Screening PSA (prostate specific antigen) Advance Directives No Advanced Directives Records Found Advance Directive Response Recorded Date/ Time Advance Directives No January 11:39am Advance Directive Response Recorded Date/ Time Advance Directives No January 10:39am Latest Code Status on File Code Status Date Activated Date Inactivated Comments Full Code 01/07/2023 7:45 AM 01/07/2023 7:02 PM Question Answer Comments Plan of Care: Code Status Discussion Not Compl eted Decision Maker: Provider Rationale: Patient condition do es not warrant discussion Latest Code Status on File Code Status Date Activated Date Inactivated Comments Full Code 01/07/2023 7:45 AM 01/07/2023 7:02 PM Question Answer Comments Plan of Care: Code Status Discussion Not Compl eted Decision Maker: Provider Rationale: Patient condition do es not warrant discussion Date Activated Date Inactivated Comments 01/07/2023 7:45 AM 01/07/2023 7:02 PM Question Answer Comments Plan of Care: Code Status Discussion Not Compl eted Decision Maker: Provider Rationale: Patient condition does not warra nt discussion Summary Purpose Reason for Referral Specialty Diagnoses / Procedures Referred By Contac t Referred To Contact Diagnoses Paroxysmal atrial fibrillation (Multi) High risk medication use Procedures Complete Pulmonary Function Test Pre/Post Bronchodialator (Spirometry Pre/Post/DLCO/Lung Volumes) Jesus Posey DO [address] [facility] [address], [address] [address] Referral ID Status Reason Start Date Expiration Date V isits Requested Visits Authorized [id number] Pending Review 07/13/2023 07/12/2024 1 1 Specialty Diagnoses / Procedures Referred By Contac t Referred To Contact Radiology Diagnoses Paroxysmal atrial fibrillation (Multi) High risk medication use Procedures XR chest 2 views Jesus Posey DO [address] [facility] [address], [address] [place] [address] Referral ID Status Reason Start Date Expiration Date Visits Requested Visits Authorized [id number] Pending Review Perform Procedure 07/13/2023 07/12/2024 1 1 Specialty Diagnoses / Procedures Referred By Contac t Referred To Contact Cardiology Diagnoses 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 Procedures Follow Up In Cardiology Jesus Posey DO [address] [place] [address] Jesus Posey, DO [address] [place] [address] Referral ID Status Reason Start Date Expiration Date V isits Requested Visits Authorized [id number] Authorized 07/13/2023 07/12/2024 1 1 Specialty Diagnoses / Procedures Referred By Contac t Referred To Contact Diagnoses Paroxysmal atrial fibrillation (Multi) Procedures ECG 12 Lead Jesus Posey, DO [address], [address] [place] [address] Referral ID Status Reason Start Date Expiration Date V isits Requested Visits Authorized [id number] Authorized 07/13/2023 07/12/2024 1 1 Specialty Diagnoses / Procedures Referred By Contac t Referred To Contact Cardiology Diagnoses Ischemic cardiomyopathy Cardiac pacemaker in situ Procedures Cardiac Device Check - In Clinic Holli Vazquez, MICHAEL-CIRCULATION REPRESENTATIVE [address] [facility], [address] [address] Referral ID Status Reason Start Date Expiration Date Visits Requested Visits Authorized [id number] Pending Review Perform Procedure 3 01/07/2024 1 1 Specialty Diagnoses / Procedures Referred By Contac t Referred To Contact Cardiology Diagnoses Shortness of breath Procedures Transthoracic Echo Complete WI ECHO TTHRC R-T 2D W/WOM-MODE COMPL SPEC&COLR D Carmen Ha MD [address] [facility], [address] [address] Referral ID Status Reason Start Date Expiration Date Visits Requested Visits Authorized [id number] Pending Review Perform Procedure 05/21/2023 05/20/2024 1 1 Specialty Diagnoses / Procedures Referred By Contac t Referred To Contact Cardiology Diagnoses Biventricular ICD (implantable cardioverter-defibrillator) in place Procedures Cardiac Device Check - In Clinic Carmen Ha MD [address] [facility], [facility] [address] [place] [address] Referral ID Status Reason Start Date Expiration Date Visits Requested Visits Authorized [id number] Pending Review Perform Procedure 05/21/2023 05/20/2024 52 52 Specialty Diagnoses / Procedures Referred By Contac t Referred To Contact Cardiology Diagnoses Biventricular ICD (implantable cardioverter-defibrillator) in place Procedures Cardiac Device Check - Remote Carmen Ha MD [address] [facility], [address] [address] Referral ID Status Reason Start Date Expiration Date Visits Requested Visits Authorized [id number] Pending Review Perform Procedure 05/21/2023 05/20/2024 52 52 Specialty Diagnoses / Procedures Referred By Contac t Referred To Contact Diagnoses LBBB (left bundle branch block) Procedures ECG 12 lead (Clinic Performed) Carmen Ha MD [address] [facility], [address] [address] Referral ID Status Reason Start Date Expiration Date V isits Requested Visits Authorized [id number] Authorized 05/21/2023 05/20/2024 1 1 Specialty Diagnoses / Procedures Referred By Contac t Referred To Contact Radiology Diagnoses Cardiac pacemaker in situ Procedures XR chest 2 views Carmen Ha MD [address] [facility], [address] [address] Referral ID Status Reason Start Date Expiration Date Visits Requested Visits Authorized [id number] Authorized Perform Procedure 05/21/2023 05/20/2024 1 1 Additional Source Comments Care Teams (unrecognized sec tion and content) Team Status: Active Member Role Status Dates Lee Segovia DO Primary Care Provider Active Team Status: Inactive Member Role Status Dates Lee Segovia DO Primary Care Provide r, Attending Provider Active Start: May 04, 2023 End: May 04, 2023 Team Status: Inactive Member Role Status Dates Lee Sgeovia DO Primary Care Provide r, Attending Provider Active Start: August 02, 2023 End: August 02, 2023 Team Status: Active Member Role Status Dates Provider Conversion Attending Provider Active St art: March 10, 2023 Team Status: Inactive Member Role Status Dates Lee Segovia DO Primary Care Provider Active Start: March 24, 2023 End: March 24, 2023 W Be Psoey , Attending Provider Active S tart: March 24, 2023 End: March 24, 2023 Team Status: Inactive Member Role Status Dates Lee Segovia DO Attending Provider Active Sta rt: April 14, 2023 End: April 14, 2023 Team Status: Inactive Member Role Status Dates Lee Segovia , Primary Care Provider Active Lesley Cooper , DO Attending Provider Active Team Status: Inactive Member Role Status Dates Lee Segovia , Primary Care Provider Active W Be Posey , DO Attending Provider Active Overweaver Relationship Specialty Start Date End Date Lee Segovia DO [address] [place] [id number] PCP - General 08/30/17 Lee Segovia DO [address] [place] [address] PCP - MMO Medicare Advantage PCP 07/20/22 Overweaver Relationship Specialty Start Date End Date Ivania Velazquez APRN-CIRCULATION REPRESENTATIVE [address] [facility] [address], [address] [place] [address] PCP - MMO Medicare Advantage PCP 12/20/22 Lee Segovia DO [address] [place] [address] PCP - General Internal Medicine 02/24/23 Carmen Ha MD [address] [facility], [address] [place] [address] International Accountant Cardiology 05/21/23 Overweaver Relationship Specialty Start Date End Date Ivania Velazquez APRN-CIRCULATION REPRESENTATIVE [address] [facility] [address], [address] [place] [address] PCP - MMO Medicare Advantage PCP 12/20/22 Lee Segovia DO [address] [place] [address] [place] [address] PCP - General Internal Medicine 02/24/23 Carmen Ha MD [address] [facility], [address] [place] [address] International Accountant Cardiology 05/21/23 Overweaver Relationship Specialty Start Date End Date Ivania Velazquez APRN-CIRCULATION REPRESENTATIVE [address] [facility] [address], [address] [place] [address] PCP - MMO Medicare Advantage PCP 12/20/22 Lee Segovia DO [address] [place] [address] [place] [facility] [place] [address] PCP - General Internal Medicine 02/24/23 Carmen Ha MD [address] [facility], [address] [place] [address] International Accountant Cardiology 05/21/23 Overweaver Relationship Specialty Start Date End Date Ivania Velazquez APRN-CIRCULATION REPRESENTATIVE [address] [facility] [address], [address] [place] [address] PCP - MMO Medicare Advantage PCP 12/20/22 Lee Segovia DO [address] [place] [address] [place] [facility] [place] [address] PCP - General Internal Medicine 02/24/23 Carmen Ha MD [address] [facility], [address] [place] [address] International Accountant Cardiology 05/21/23 Overweaver Relationship Specialty Start Date End Date Ivania Velazquez APRN-CIRCULATION REPRESENTATIVE [address] [facility] [address], [address] [place] [address] PCP - MMO Medicare Advantage PCP 12/20/22 Lee Segovia DO [address] [place] [address] [address] [facility] [place] [address] PCP - General Internal Medicine 02/24/23 Carmen Ha MD [address] [facility], [facility] [address] [place] [address] International Accountant Cardiology 05/21/23 Overweaver Relationship Specialty Start Date End Date Ivania Velazquez APRN-CIRCULATION REPRESENTATIVE [address] [facility] [address], [address] [place] [address] PCP - MMO Medicare Advantage PCP 12/20/22 Lee Segovia DO [address] [facility] [address], [address] [place] [address] PCP - General Internal Medicine 02/24/23 Carmen Ha MD [address] [facility], [address] [place] [address] International Accountant Cardiology 05/21/23 Goals (unrecognized section and content) Goals may be documented in a n alternate sectionGoals may be documented in an alternate sectionNo InformationNo InformationNo InformationNo InformationNo InformationNo InformationNo InformationNo InformationNo InformationNo InformationNo InformationNo InformationNo InformationNo InformationGoals may be documented in an alternate sectionNo InformationNo InformationNo InformationNo InformationNo InformationGoals may be documented in an alternate sectionNo InformationGoals may be documented in an alternate sectionNo InformationNo InformationNo InformationNo InformationNo InformationNo InformationNo InformationNo InformationNo InformationNo InformationNo InformationGoals may be documented in an alternate sectionGoals may be documented in an alternate section REASON FOR VISIT (unrecogniz ed section and content) Reason Comments Follow-up ICD wound Check Reason Comments Device Check Specialty Diagnoses / Procedures Referred By Contac t Referred To Contact Diagnoses LBBB (left bundle branch block) Procedures ECG 12 lead (Clinic Performed) Carmen Ha MD [address] [facility], [address] [address] Referral ID Status Reason Start Date Expiration Date V isits Requested Visits Authorized [id number] Authorized 05/21/2023 05/20/2024 1 1 Specialty Diagnoses / Procedures Referred By Contac t Referred To Contact Cardiology Diagnoses Ischemic cardiomyopathy Cardiac pacemaker in situ Procedures Cardiac Device Check - In Clinic Holli Vazquez, CARE TEAM ASSISTANT-CIRCULATION REPRESENTATIVE [address] [facility], [facility] [address] [place] [address] Referral ID Status Reason Start Date Expiration Date Visits Requested Visits Authorized [id number] Pending Review Perform Procedure 3 01/07/2024 1 1 Specialty Diagnoses / Procedures Referred By Contac t Referred To Contact Radiology Diagnoses Cardiac pacemaker in situ Procedures XR chest 2 views Carmen Ha MD [address] [facility], [facility] [address] [place] [address] Referral ID Status Reason Start Date Expiration Date Visits Requested Visits Authorized [id number] Authorized Perform Procedure 05/21/2023 05/20/2024 1 1 Reason Comments Follow-up 6 months Specialty Diagnoses / Procedures Referred By Contac t Referred To Contact Cardiology Diagnoses Biventricular ICD (implantable cardioverter-defibrillator) in place Ischemic cardiomyopathy Procedures Follow Up In Cardiology Ivania Velazquez, CARE TEAM ASSISTANT-CIRCULATION REPRESENTATIVE [address] [facility] [place] [address] Jesus Posey DO [address] [facility] [place] [address] Referral ID Status Reason Start Date Expiration Date V isits Requested Visits Authorized [id number] Authorized 01/12/2023 01/12/2024 1 1 Specialty Diagnoses / Procedures Referred By Contac t Referred To Contact Cardiology Diagnoses Shortness of breath Procedures Transthoracic Echo Complete WI ECHO TTHRC R-T 2D W/WOM-MODE COMPL SPEC&COLR D Carmen Ha MD [address] [facility] Office [facility], [address] [place] [address] Referral ID Status Reason Start Date Expiration Date Visits Requested Visits Authorized [id number] Authorized Perform Procedure 05/21/2023 05/20/2024 1 1 (unrecognized sect ion and content) No Status Records FoundNo Status Records FoundNo Status Records FoundNo Status Records FoundNo Status Records FoundNo Status Records FoundNo Status Records FoundNo Status Records FoundNo Status Records Found INFORMATION SOURCE (unrecogn ized section and content) DATE CREATED AUTHOR 08/29/2022 [facility] DATE CREATED AUTHOR AUTHOR'S ORGANIZ ATION 11/02/2022 [facility] DATE CREATED AUTHOR AUTHOR'S ORGANIZ ATION 12/01/2022 [facility] DATE CREATED AUTHOR AUTHOR'S ORGANIZ ATION 01/09/2023 [facility] DATE CREATED AUTHOR AUTHOR'S ORGANIZ ATION 03/27/2023 [facility] DATE CREATED AUTHOR AUTHOR'S ORGANIZ ATION 09/03/2023 [facility] DATE CREATED AUTHOR AUTHOR'S ORGANIZ ATION 09/13/[address] [facility] DATE CREATED AUTHOR AUTHOR'S ORGANIZ ATION 09/15/2023 [facility] DATE CREATED AUTHOR AUTHOR'S ORGANIZ ATION 10/08/2023 [facility] FOR RECORDS PERTAINING TO PATIENTS WHO ARE OR HAVE BEEN ENROLLED IN A CHEMICAL DEPENDENCY/SUBSTANCEABUSE PROGRAM, SOME INFORMATION MAY BE OMITTED. This clinical summary was aggregated from multiple sources. Caution should be exercised in using it in the provision of clinical care. This summary normalizes information from multiple sources, and as a consequence, information in this document may materially change the coding, format and clinical context of patient data. In addition, data may be omitted in some cases. CLINICAL DECISIONS SHOULD BE BASED ON THE PRIMARY CLINICAL RECORDS. [facility]. provides no warranty or guarantee of the accuracy or completeness of information in this document.
[2023-10-08 11:00] LABS: Anion Gap 13.4; Aspartate Amino Transferase 29 U/L (15-37); BUN Creatinine Ratio 14.7; Calcium 8.2 mg/dL (8.5-10.1); Chloride 103 mmol/L (98-107); Chol HDL Ratio 3.1; Cholesterol 83 mg/dL (<=200); Estimated GFR (African America >60 (>=60); Estimated GFR (Non-African Ame 56 (>=60); Glucose 178 mg/dL (74-106); HDL Cholesterol 27 mg/dL (40-60); Potassium 4.4 mmol/L (3.5-5.1); Sodium 138 mmol/L (136-145); Thyroid Stimulating Hormone 5.055 uIU/mL (0.358-3.740); Triglycerides 127 mg/dL (<=150); VLDL CHOLESTEROL 25.4 mg/dL
== END 2023-10-08 09:06 | disposition home or self-care (01) ==
LOC: LAB 09:06
PROVIDERS: PCP Internal Medicine; Visit Provider Internal Medicine Cardiovascular Disease
DX: I48.0 Paroxysmal atrial fibrillation (principal); Z79.899 Other long term (current) drug therapy; I25.810 Atherosclerosis of coronary artery bypass graft(s) without angina pectoris; E78.2 Mixed hyperlipidemia
CPT/HCPCS: 36415; 71046; 80048; 80061; 84443; 84450

== ENCOUNTER 2023-10-21 00:16 | Outpatient (RCR) | payer MEDICARE, SELFPAY | END 2023-11-19 09:17 | disposition home or self-care (01) | LOC: MM 00:16 | PROVIDERS: PCP Internal Medicine; Visit Provider Internal Medicine | DX: Z51.81 Encounter for therapeutic drug level monitoring (principal); Z79.01 Long term (current) use of anticoagulants; I48.91 Unspecified atrial fibrillation | CPT/HCPCS: 85610; G0463 ==

== ENCOUNTER 2023-11-22 00:51 | Outpatient (RCR) | payer MEDICARE, SELFPAY | END 2023-12-20 23:20 | disposition home or self-care (01) | LOC: MM 00:51 | PROVIDERS: PCP Internal Medicine; Visit Provider Internal Medicine | DX: Z51.81 Encounter for therapeutic drug level monitoring (principal); Z79.01 Long term (current) use of anticoagulants; I48.91 Unspecified atrial fibrillation ==

== ENCOUNTER 2023-11-24 07:06 | Outpatient (RCR) | payer MEDICARE, SELFPAY ==
--- NOTE | 2023-08-19 13:59 | CR1_ITS ---
The 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
--- NOTE | 2023-08-20 | CR1_ITS ---
The 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
--- NOTE | 2023-09-17 07:26 | CR1_ITS ---
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
--- NOTE | 2023-10-15 08:47 | CR1_ITS ---
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
--- NOTE | 2023-11-17 08:00 | CR1_ITS ---
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
--- NOTE | 2023-11-24 10:25 | CR1_ITS ---
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
--- NOTE | 2023-11-24 10:28 | PC.NURSE ---
Outreached patient as he has not been seen in 2 weeks. Patient states he no longer wishes to attend and requests a discharge from the program. Provider is notified.
== END 2023-11-24 10:24 | disposition home or self-care (01) ==
LOC: CR 07:06
PROVIDERS: PCP Internal Medicine; Visit Provider Internal Medicine
DX: I25.10 Atherosclerotic heart disease of native coronary artery without angina pectoris (principal)
CPT/HCPCS: 93798

== ENCOUNTER 2023-12-21 01:23 | Outpatient (RCR) | payer MEDICARE, SELFPAY | END 2024-01-20 23:08 | disposition home or self-care (01) | LOC: MM 01:23 | PROVIDERS: PCP Internal Medicine; Visit Provider Internal Medicine | DX: Z51.81 Encounter for therapeutic drug level monitoring (principal); Z79.01 Long term (current) use of anticoagulants; I48.91 Unspecified atrial fibrillation | CPT/HCPCS: 85610; G0463 ==

== ENCOUNTER 2024-01-21 10:33 | Outpatient (RCR) | payer MEDICARE, SELFPAY | END 2024-02-19 23:59 | disposition home or self-care (01) | LOC: MM 10:33 | PROVIDERS: PCP Internal Medicine; Visit Provider Internal Medicine | DX: Z51.81 Encounter for therapeutic drug level monitoring (principal); Z79.01 Long term (current) use of anticoagulants; I48.91 Unspecified atrial fibrillation | CPT/HCPCS: 85610; G0463 ==

== ENCOUNTER 2024-02-02 09:53 | Outpatient (OUT) | payer MEDICARE, SELFPAY ==
--- OUTSIDE RECORDS SUMMARY | 2024-02-02 10:18 | XMS_ITS | CCD ---
Author Organization [facility] Care Team Providers Care Electron Beam Photo Mask Maker Name Role Phone Lee Segovia Unavailable Unavailable Unavailable DO Lee Segovia Primary Care Provider DO Lesley Cooper Attending Provider [phone] DO Lee Segovia Primary Care Provider DO Lesley Cooper Attending Provider DO Franck Posey Attending Provider Lee Segovia Unavailable JULIETTE, DR HOWARD Primary Care Unavailable BALL, DR [...] Lopez Consulting Unavailable SOFÍA, YANA Consulting Unavailable SOFÍA, YANA Attending Unavailable BALL, DR HOWARD Primary Care Unavailable SOFÍAYANA Admitting Unavailable BALL, DR HOWARD Primary Care [...] Care Unavailable FAWWAD, ZARCO H Admitting Unavailable FAWWAD, [...] Unavailable BALL, DR HOWARD Referring Unavailable FAWWAD, H Attending Unavailable BALL, DR HOWARD Primary Care Unavailable FAWWAD, ZARCO H Admitting Unavailable BALL, DR HOWARD Consulting Unavailable BALL, DR HOWARD Admitting Unavailable BALL, DR HOWARD Primary Care Unavailable BALL, DR HOWARD Attending Unavailable Ball, DO Howard Primary Care Provider [phone] DO Franck Posey Attending Provider DO Lesley Cooper Attending Provider Delroy Mcleod Unavailable JESUS POSEY Attending Unavailable Juliette, Dr. Lee Jones Primary Care Rigo Segovia, DO Howard Primary Care Provider [phone] DO Franck Posey Attending Provider Juliette, DO Howard Primary Care Provider DO Lesley oCoper Attending Provider Marcus, Ms. Ivania Calabrese Attending Rigo Velazquez, Ms. Ivania Calabrese Referring Rigo Segovia, Dr. Lee Jones Primary Care Carmen Sharma Attending Poppy Velazquez, Ms. Ivania Calabrese Referring Rigo Segovia, Dr. Lee Jones Primary [facility] Rigo Segovia, Dr. Lee Jones Primary Care Jesus Man Attending Unavailable Juliette, Dr. Lee Jones Primary Care Rigo Segovia, Dr. Lee Jones Primary Care Jesus Man Attending Unavailable Jesus Posey Referring Unavailable Juliette, Dr. Lee Jones Primary Care Rigo Velazquez, MsJohn Paul Calabrese Attending Rigo Velazquez, Ms. Ivania Calabrese Referring Rigo Segovia, Dr. Lee Jones Primary [facility] Lee Milian DO Primary Care Provider Lee Segovia DO Unavailable Lee Segovia Primary Care Unavailable Kalpesh, Franck Lr Admitting Unavailable Kalpesh, Franck Lr Attending Unavailable Lee Segovia Primary Care Unavailable Lyster, Lesley Admitting Unavailable Lyster, Lesley Attending Unavailable Lyster, Lesley Admitting Unavailable Lyster, Lesley Attending Unavailable Juliette, Lee Primary Care Unavailable Juliette, Lee Primary Care Unavailable Kalpesh, Franck Lr Admitting Unavailable Kalpesh, Franck Lr Attending Unavailable Juliette, Lee Primary Care Unavailable Kalpesh, Franck Lr Admitting Unavailable Kalpesh, Franck Lr Attending Unavailable Kalpesh, Franck Lr Admitting Unavailable Kalpesh, Franck Lr Attending Unavailable Lee Segovia Primary Care Unavailable DO Lee Segovia Primary Care Provider [phone] DO Franck Posey Attending Provider [phone] Marcus APPLICATIONS INTERN-PERSONAL BANKING ADVISORIvania Unavailable [phone] Lee Segovia DO Primary Care Provider Carmen Ha MD Unavailable Lee Segovia DO Primary Care Provider YANA ALVAREZ Attending Unavailable HOLLI VAZQUEZ Referring Unavailable JULIETTE LEE E Primary Care Unavailable CARMEN HA Referring Unavailable LEE SEGOVIA E Primary Care Unavailable CARMEN HA Referring Unavailable JULIETTE LEE E Primary Care Unavailable CARMEN HA Admitting Unavailable CARMEN HA Attending Unavailable JULIETTE LEE E Primary Care Unavailable CARMEN HA Referring Unavailable JULIETTE, LEE E Primary Care Unavailable HOLLI VAZQUEZ Referring Unavailable BALL, LEE E Primary Care Unavailable Ball Lee HUGGINS Primary Care Provider JESUS POSEY Attending Unavailable LEE SEGOVIA E Primary Care Unavailable CARMEN HA Attending Unavailable LEE SEGOVIA Primary Care Unavailable JESUS POSEY Attending Unavailable IVANIA VELAZQUEZ Referring Unavailable LEE SEGOVIA Primary Care Unavailable IVANIA VELAZQUEZ Attending Unavailable JESUS POSEY Referring Unavailable LEE SEGOVIA Primary Care Unavailable IVANIA VELAZQUEZ Attending Unavailable IVANIA VELAZQUEZ Referring Unavailable LEE SEGOVIA Primary Care Unavailable CARMEN HA Attending Unavailable LEE SEGOVIA Primary Care Unavailable JESUS POSEY Attending Unavailable JESUS POSEY Referring Unavailable LEE SEGOVIA Primary Care Unavailable JESUS POSEY Referring Unavailable LEE SEGOVIA Primary Care Unavailable Allergies Allergy Classification Reported Allergen(s) Allergy Type Date of Onset Reaction(s) Facility (20 sources) Angiotensin Converting Enzyme (Jenny) Inhibitors; Translations: [JENNY Inhibitors] Allergy to drug (finding) 3 Other [facility] Repository (3 sources) patient allergy list reviewed by nurse or physicia Propensity to adverse reactions 5 Comment:Done Quitbit Other (10 sources) Angiotensin-con verting enzyme inhibitor agent Drug Allergy 3 Other [facility] Medications Current Medications Medication Drug Class(es) Dates [...] (20 sources) Antiarrhythmic Start: 12-14-2017 End: 06-20-2024 amiodarone (Pacerone) 200 mg tablet Indications: Paroxysmal atrial fibrillation (Multi) TAKE 1 TABLET DAILY 90 tablet 1 12/20/2023 Active Amiodarone HCl N ot-Taking Aspir-81 81 [...] tablet by mouth every twelve hours Dexcom (4 sources) Start: 05-01-2023 Dexcom Active 0 .Route .[facility] May 01, 2023 1:00am Use to test home BS Tranacutaneous 4-6x daily Start: 05-01-2023 Dexcom Active 0 .ROUTE .[facility] May 01, 2023 12:00am Use to test [...] Ordered: 14-Jul-2022 DO Active FreeStyle Sarah 2 [place] - (8 sources) Start: 2023 FreeStyle Libr e 2 [place] - Use to test home BS 4-6x daily transcutaneous 4-6x daily for 365 days Jan, Active FreeStyle Sarah 2 Sensor - (8 sources) Start: 2023 FreeStyle Libr e 2 Sensor - Use to test home BS 4-6x daily transcutaneous 4-6x daily for 30 days Jan, Active furosemide 20 mg oral tablet (2 sources) Loop Diuretic Start: 09-13-2023 End: 09-12-2024 take 1 tablet by mouth once daily furosemide (Lasix) 20 mg tablet Indications: Ischemic cardiomyopathy Take 1 tablet (20 mg) by mouth once daily. 30 tablet 09/13/2023 09/12/2024 Active 3 ml insulin detemir 100 unt/ml [...] Flexpen) 100 unit/mL (3 mL) insulin pen (13 sources) Start: 11-15-2023 Insulin Detemi r U-100 (Levemir Flexpen) 100 unit/mL (3 mL) insulin pen Active 22 UNIT SUBCUT Twice daily November 15, 2023 9:02am Start: 08-06-2023 End: 11-15-2023 Insulin Detemir U-100 (Levem ir Flexpen) 100 unit/mL (3 mL) insulin pen Discontinued 20 UNIT SUBCUT Twice daily August 06, 2023 10:50am November 15, 2023 9:03am Start: 08-06-2023 Insulin Detemi r U-100 (Levemir Flexpen) 100 unit/mL (3 mL) insulin pen Active 20 UNIT SUBCUT Twice daily August 06, 2023 10:50am Start: 05-01-2023 End: 08-06-2023 Insulin Detemir U-100 (Levem ir Flexpen) 100 unit/mL (3 mL) insulin pen Discontinued 14 UNIT SUBCUT Twice daily May 01, 2023 11:50am August 06, 2023 10:50am Start: 05-01-2023 Insulin Detemi r U-100 (Levemir [...] with meals Dec, Active Insulin Lispro (Humalog Kwik pen Insulin) 100 unit/mL insulin pen (7 sources) Start: 11-15-2023 Insulin Lispro (Humalog Kwikpen Insulin) 100 unit/mL insulin pen Active 1 sliding scale dose SUBCUT November 15, 2023 9:01am 70-130 - 0 131-180 - 4 181-240 - 8 241-300 - 10 301-350 - 12 351-400 - 16 > 400 - 20 Start: 09-24-2023 End: 11-15-2023 Insulin Lispro (Humalog Kwik pen Insulin) 100 unit/mL insulin pen Discontinued 1 sliding scale dose SUBCUT September 24, 2023 2:09pm November 15, 2023 9:02am 70-130 - 0 131-180 - 4 181-240 - 6 241-300 - 8 301-350 - 10 Start: 09-24-2023 Insulin Lispro (Humalog Kwikpen Insulin) 100 unit/mL insulin pen Active 1 sliding scale dose SUBCUT September 24, 2023 2:09pm 70-130 - 0 131-180 - 4 181-240 - 6 241-300 - 8 301-350 - 10 Start: 05-01-2023 End: 09-24-2023 inject 100 [IU] by subcutaneous injection three times daily before mealtime Insulin Lispro (Humalog Kwikpen Insulin) 100 unit/mL insulin pen Discontinued SUBCUT May 01, 2023 1:00am September 24, 2023 2:11pm FreeTextSi-8 units Subcutaneous tid before meals; Note: [...] lispro protamine, human 50 unt/ml pen injector (9 sources) Insulin Analog insulin lispro protamin-lispro (HumaLOG Mix 50-50 KwikPen) 100 unit/mL (50-50) injection Inject under the skin 2 times a day with meals. Take as directed per insulin instructions. Active 24 hr isosorbide mononitrate 30 mg extended release oral tablet (2 sources) Nitrate Vasodilator Start: 09-13-19 End: 09-13-19 take 1 tablet by mouth once daily isosorbide mononitrate ER (Imdur) 30 mg 24 hr tablet Indications: Atherosclerosis of ho-chunk coronary artery of ho-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 pectoris Take 1 tablet (30 mg) by mouth once daily. Do not crush or chew. 30 tablet 09/13/2023 09/12/2024 Active levETIRAcetam 750 mg oral tablet (20 sources) Start: 08-20-19 take 1 tablet by mouth twice daily [...] mouth once daily. 30 tablet 11 01/12/2023 Active Start: 07-14-2022 End: 11-19-2022 take 25 mg by mouth once daily in the morning Losartan Discontinued 25 MG PO Every morning November 13, 2022 12:00am November 19, 2022 2:49pm methylPREDNISolone 4 mg oral tablet (20 sources) [...] Orally Twice a day Active Toprol XL Kacie vazquez take 1 tablet by ramez th twice daily Metoprolol Tartrate 50 MG Oral Tablet TAKE 1 TABLET TWICE DAILY. Quantity: 0 Refills: 0 Ordered: 24-Sep-2017 DO Active mirtazapine 30 mg oral table t (20 sources) Start: 11-10-2023 Mirtazapine Ac tive 0 .ROUTE .COMPLEX 90 November 10, 2023 7:39am TAKE 1 TABLET DAILY AT BEDTIME Start: 11-13-2022 End: 11-10-2023 take 1 tablet by mouth once daily at bedtime mirtazapine (Remeron) 30 mg tablet Take 1 tablet (30 mg) by mouth once daily at bedtime. 12/13/2022 Active Nitroglycerin (20 sources) Nitrate Vasodilator Start: 07-08-2023 Nitroglyce rin Active 0 .ROUTE .COMPLEX July 08, 2023 2:37pm DISSOLVE 1 TABLET [...] (14 sources) Quinolone Antimicrobial Start: 07-30-2018 Pen [place] (4 sources) Start: 05-01-2023 Pen [place] Ac tive 0 .Route .MEDSUPPLY May 01, 2023 1:00am Use to inject insulin qd SC Start: 05-01-2023 Pen [place] Ac tive 0 .ROUTE .MEDSUPPLY May 01, [...] mg / valsartan 26 mg oral tablet (20 sources) Angiotensin 2 Receptor Pato Start: 11-19-2022 [...] see administration instructions. As directed by the [facility] coumadin clinic. Ok to resume at previous dose on 01/09/23 01/07/2023 Active Start: 12-31-2020 End: 05-01-2023 Warfarin Discontinued 2 MG P O As Directed May 01, 2023 11:55am May 01, 2023 11:57am Take 3 tablets ( 3MG ) today and tomorrow. (Wednesday and Wednesday ) resume taking 2 tablet ( 2 mg ) then follow the Coumadin clinic at [place] instructions to adjust dosing based on the [...] Sig (Original) citalopram 40 mg oral tablet (11 sources) Serotonin Reuptake Inhibitor Start: 02-18-2017 End: 08-23-2019 take 40 mg by mouth at bedtime Citalopram Discontinued 40 MG PO Bedtime February 18, 2017 1:00am August 23, 2019 1:05pm CeleXA 40 MG Ora l Tablet Quantity: 0 Refills: 0 Ordered: 28-Sep-2017 DO Active clindamycin 300 mg oral capsule (9 sources) Lincosamide Antibacterial Start: 06-18-2018 End: 06-25-2018 [...] 2017 12:27pm diazePAM 5 mg oral tablet (9 sources) Benzodiazepine Start: 02-18-2017 End: 06-30-2017 take [...] days Active empagliflozin 10 mg oral tablet (9 sources) Sodium-Glucose Cotransporter 2 Inhibitor Start: 06-26-2020 [...] 2023 11:56am gabapentin 100 mg oral capsule (9 sources) Anti-epileptic Agent Start: 02-18-2017 End: 07-01-2017 [...] 18, 2017 1:00am June 30, 2017 11:58pm metFORMIN (20 sources) Biguanide Start: 09-27-2023 End: 11-15-2023 Metformin Discontinued 0 .RO PAULINE .COMPLEX 180 September 27, 2023 9:35am November 15, 2023 8:47am TAKE 1 TABLET TWICE A DAY Start: 09-27-2023 Metformin Acti ve 0 .ROUTE .COMPLEX 180 September 27, 2023 9:35am TAKE 1 TABLET TWICE A DAY Start: 02-20-2020 End: 09-27-2023 take 850 mg by mouth twice daily Metformin Discontinue d 850 MG PO Twice daily November 13, 2022 12:00am September 27, 2023 9:35am Start: 12-14-2017 End: 11-13-2022 take 850 mg [...] 0 Refills: 0 Ordered: 24-Sep-2017 DO Active Multiple Vitamins/Minerals TABS (13 sources) Multiple Vitamins/Minerals [...] 18, 2017 1:00am December 14, 2017 3:22pm Start: 02-18-2017 End: 12-14-2017 Ranitidine Hcl (Zantac 75) 7 5 mg Tablet Discontinued 150 MG PO Twice daily February 18, 2017 1:00am December 14, 2017 3:22pm rosuvastatin calcium 20 mg oral tablet (1 source) HMG-CoA Reductase Inhibitor Start: 08-18-2009 End: 01-12-2023 take 1 tablet by mouth once daily rosuvastatin (Crestor) 20 mg tablet Take 1 tablet (20 mg) by mouth once daily. 0 08/18/2009 01/12/2023 Discontinued (Ineffective) ticagrelor 90 mg oral tablet (9 sources) Start: 02-18-2017 End: 06-30-2017 take 1 [...] fibrillation; Translations: [Atrial fibrillation] Onset: 3 Resolved: 4 12-28-2020 Chronic Chronic obstructive pulmonary disease and bronchiectasis (20 sources) Mucopurulent chronic bronchitis; Translations: [Mucopurulent chronic bronchitis] Onset: 4 Resolved: 0 Chronic Coagulation and hemorrhagic disorders (6 sources) Blood coagulation disorder; Translations: [Coagulation defect, unspecified] 06-17-2018 Chronic Complication of device; implant or graft (4 sources) Arteriosclerosis of coronary artery bypass graft; [...] sources) Coronary atherosclerosis; Translations: [Coronary atherosclerosis of ho-chunk coronary artery] Onset: 8 06-17-2021 Chronic Delirium, dementia, and amnestic and other cognitive [...] sources) Long-term current use of insulin; Translations: [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 (current) use of insulin] 05-01-2023 Episodic Other aftercare (5 sources) Encounter for therapeutic drug level monitoring; Translations: [ENC THERAPEUTC DRUG LEVL MONITORING] Onset: 3 Episodic Other aftercare (3 sources) Long-term current use of drug therapy; Translations: [Other terminal superintendent (current) drug therapy] Episodic Other aftercare (16 sources) Taking high risk medication; Translations: [Other terminal superintendent (current) drug therapy] Onset: 3 12-30-2022 Episodic Other and ill-defined cerebrovascular disease (20 [...] disease; Translations: [Heart disease, unspecified] Chronic Other connective tissue disease (20 sources) Pain of right calf; Translations: [Pain in right lower leg] Episodic Other connective tissue disease (4 sources) Trigger finger, right ring finger Episodic Other connective tissue disease (3 sources) Pain in limb; Translations: [Pain in right lower leg] Episodic Other gastrointestinal disorders (1 source) Irritable bowel syndrome; Translations: [Irritable bowel syndrome without diarrhea] 10-29-2023 Chronic Other gastrointestinal disorders (1 source) Irritable bowel syndrome without diarrhea; Translations: [Irritable bowel syndrome] 10-29-2023 Chronic Other gastrointestinal disorders (20 sources) Chronic constipation; [...] sources) Hypoxia; Translations: [Hypoxemia] 06-17-2018 Episodic Other nervous system disorders (20 sources) [...] [Body mass index (BMI) 33.0-33.9, adult] Onset: 4 Chronic Other nutritional; endocrine; and metabolic disorders (2 sources) Body mass index (BMI) 34.0-34.9, adult; Translations: [Body mass index (BMI) 34.0-34.9, adult] Onset: 4 Chronic Other skin disorders (20 sources) Sebaceous cyst; [...] UNSPECIFIED] Onset: 2 Chronic Residual codes; unclassified (1 source) Obstructive sleep apnea syndrome; Translations: [Obstructive sleep apnea (adult) (pediatric)] 01-12-2024 Chronic Residual codes; unclassified (2 sources) Obstructive sleep apnea (adult) (pediatric); Translations: [Obstructive sleep apnea (adult) (pediatric)] Onset: 3 Chronic Residual codes; unclassified (12 sources) Tobacco [...] nail, subsequent encounter] Episodic Transient cerebral ischemia (9 sources) Cerebral ischemia; Translations: [Transient cerebral ischemic [...] Episodic Conditions associated with dizziness or vertigo (17 sources) Dizziness and giddiness; Translations: [Benign paroxysmal positional vertigo] Onset: 3 Episodic Coronary atherosclerosis and other heart disease (4 sources) Coronary angioplasty status; Translations: [Presence of aortocoronary bypass graft] Onset: 3 Episodic Disorders of teeth and [...] 4 Resolved: 3 05-21-2023 Episodic Other aftercare (12 sources) Other terminal superintendent (current) drug therapy; Translations: [OTH [facility] CURRENT DRUG THERAPY] Onset: 3 Episodic Other aftercare (9 sources) 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 (current) use of insulin; Translations: [Long-term (current) use of insulin] Onset: 3 Episodic Other aftercare (3 sources) 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; Translations: [PHOTOGRAPHY PROFESSOR CURRNT USE ANTICOAGULANTS] Onset: 3 Episodic Other aftercare (1 source) 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 (current) use of aspirin; Translations: [PHOTOGRAPHY PROFESSOR CURRENT USE OF ASPIRIN] Onset: 2 Episodic Other aftercare (1 source) 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; Translations: [FPC USE ORAL HYPOGLYCEMIC DX] Onset: 2 Episodic Other aftercare (1 source) 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 school teacher (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) use of antithrombotics/antipl atelets; Translations: [FPC ANTITHROMBOT/ANTIPLATL ETS] Onset: 2 Episodic Other aftercare (2 sources) Long-term current use of anticoagulant; Translations: [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 (current) use of anticoagulants] Onset: 4 Resolved: 4 01-12-2024 Episodic Other circulatory disease (20 sources) History [...] the circulatory system] Onset: 3 Episodic Other circulatory disease (2 sources) Peripheral vascular angioplasty status; Translations: [Peripheral vascular angioplasty status] Onset: 3 Episodic Other gastrointestinal disorders (20 sources) Drug-induced constipation; Translations: [Other constipation] Onset: 3 01-09-2023 Episodic Other gastrointestinal disorders (3 sources) Slow transit constipation; Translations: [Slow transit constipation] Onset: 9 Episodic Other injuries and conditions due to external causes (3 sources) Open wound without complication; Translations: [Open wound(s) (multiple) of unspecified site(s), without mention of complication] Onset: 8 Episodic Other lower respiratory disease (13 sources) Dyspnea; Translations: [Shortness of breath] Onset: 4 05-21-2023 Episodic Other lower respiratory disease (3 sources) Shortness of breath; Translations: [Shortness of breath] Onset: 3 Episodic Other nervous system disorders (3 sources) Dysarthria; Translations: [Dysarthria and anarthria] Onset: 4 Episodic Other non-traumatic joint disorders (3 sources) Pain in right hip joint; Translations: [Pain in right hip] Onset: 9 Episodic Other screening for suspected conditions (not mental disorders or infectious disease) (17 sources) Patient encounter status; Translations: [Encounter for screening for malignant neoplasm of colon] Onset: 7 06-26-2020 Episodic Other skin disorders (1 source) Localized [...] and Corynebacterium diphtheriae antigens (medicinal product); Translations: [Kzjuxrufzw-lgeynfm-ji rtussis, combined [DTP] [DtaP]] Onset: 8 Unclassified (3 sources) Long-term current use of drug therapy; Translations: [Long-term (current) use of other medications] Onset: 7 Unclassified (10 sources) Onset: 3 Resolved: 4 01-12-2023 Viral infection (20 sources) Disease caused by 2019-nCoV; Translations: [COVID-19] Results Test Name Value Interpretation Reference Range Facility ECG 12 Leadon 01-12-2024 AV sequential pacema ker, T wave abnormality, abnormal ECG [facility] Work Phone: [facility] Work Phone: Cholesterol in LDL Calc [Mas s/Vol]on 10-08-2023 Cholesterol in LDL [Mass/Vol] 31.0 mg/dL [facility] Comment on above: <100 mg/dl [id number] 0-129 mg/dl NEAR OR ABOVE [id number] mg/dl BORDERLINE [id number] mg/dl HIGH>190 mg/dl VERY HIGH Cholesterol in VLDL Calc [Ma ss/Vol]on 10-08-2023 Cholesterol in VLDL [Mass/Vol] 25.4 mg/dL [facility] Estimated glomerular filtrat ion rate (GFR) non- Americanon 10-08-2023 GFR/1.73 sq M.predicted among non-blacks MDRD (S/P/Bld) [Vol rate/Area] 56 mL/min/{1.73_m2} Low >=60 [facility] Laboratory - Chemistry and C hemistry - challengeon 10-08-2023 AST [Catalytic activity/Vol] 29 U/L 15-37 [facility] Calcium [Mass/Vol] 8.2 mg/dL Low 8.5-10.1 [facility] Chloride [Moles/Vol] 103 mmol/L 98-107 [facility] Cholesterol [Mass/Vol] 83 mg/dL <=200 [facility] Cholesterol in HDL [Mass/Vol] 27 mg/dL Low 40-60 [facility] Comment on above: > or =60 mg/dl - LOW CARDIOVASCULAR RISK<40 mg/dl - HIGH CARDIOVASCULAR RISK CO2 [Moles/Vol] 26.0 mmol/L 21.0-32.0 [facility] Creatinine [Mass/Vol] 1.29 mg/dL 0.70-1.30 [facility] GFR/1.73 sq M.predicted MDRD (S/P/Bld) [Vol rate/Area] mL/min/{1.73_m2} >=60 [facility] Glucose [Mass/Vol] 178 mg/dL High 74-106 [facility] Potassium [Moles/Vol] 4.4 mmol/L 3.5-5.1 [facility] Sodium [Moles/Vol] 138 mmol/L 136-145 [facility] Triglyceride [Mass/Vol] 127 mg/dL <=150 [facility] TSH Qn 5.055 m[IU]/L High 0.358-3.74 0 [facility] Urea nitrogen [Mass/Vol] 19.0 mg/dL High 7.0-18.0 [facility] Urea nitrogen/Creatinine [Mass ratio] 14.7 mg/mg [facility] Serum or plasma anion gap de terminationon 10-08-2023 Anion gap [Moles/Vol] 13.4 mmol/L [facility] Serum or plasma total choles terol/high density lipoprotein (HDL) cholesterol mass quin 10-08-2023 Cholesterol.total/Chol esterol in HDL [Mass ratio] 3.1 {ratio} [facility] Comment on above: 3.3 - 4.4 LOW RISK4. 4 - 7.1 AVERAGE RISK7.1 - 11.0 MODERATE RISK>11.0 HIGH RISK Estimated glomerular filtrat ion rate (GFR) non- Americanon 09-15-2023 GFR/1.73 sq M.predicted among non-blacks MDRD (S/P/Bld) [Vol rate/Area] mL/min/{1.73_m2} >=60 [facility] - Chemistry and C hemistry - challengeon 09-15-2023 Calcium [Mass/Vol] 8.3 mg/dL Low 8.5-10.1 [facility] Chloride [Moles/Vol] 104 mmol/L 98-107 [facility] CO2 [Moles/Vol] 25.2 mmol/L 21.0-32.0 [facility] Creatinine [Mass/Vol] 1.15 mg/dL 0.70-1.30 [facility] GFR/1.73 sq M.predicted MDRD (S/P/Bld) [Vol rate/Area] mL/min/{1.73_m2} >=60 [facility] Glucose [Mass/Vol] 240 mg/dL High 74-106 [facility] Potassium [Moles/Vol] 4.4 mmol/L 3.5-5.1 [facility] Sodium [Moles/Vol] 138 mmol/L 136-145 [facility] Urea nitrogen [Mass/Vol] 15.0 mg/dL 7.0-18.0 [facility] Urea nitrogen/Creatinine [Mass ratio] 13.0 mg/mg [facility] Serum or plasma anion gap de terminationon 09-15-2023 Anion gap [Moles/Vol] 13.2 mmol/L [facility] No Panel Informationon 09-02 Levetiracetam (Keppra) Level 13.1 ug/mL 10.0-40.0 [facility] Comment on above: Performed at: - [address] [id number] Director: Julia Arrington MD, Phone: [phone] TRANSTHORACIC ECHO (TTE) COM PLETEon 08-24-2023 TRANSTHORACIC ECHO (TTE) COMPLETE [facility] [address], [address], [place] [address] TRANSTHORACIC ECHOCARDIOGRAM REPORT Patient Name: LESLEY QUINTERO Reading Physician: [id number] Errol Huber MD Study Date: 08/24/2023 Ordering Provider: [id number] CARMEN HA MRN/PID: [id number] Fellow: Nurse: Date of /Age: 11 1955 Refrigeration Mechanic: Lesley Zuniga years Gender: M Additional Staff: Height: 175.26 cm Admit Date: 08/24/2023 Weight: 109.32 kg Admission Status: Outpatient BSA / BMI: 2.24 m2 / 35.59 Department Location: [facility] kg/m2 [facility] Blood Pressure: 120 /60 mmHg Study Type: TRANSTHORACIC ECHO (TTE) COMPLETE Diagnosis/ICD: Shortness of breath-R06.02 Indication: SOB CPT Codes: Echo Limited-88414 Patient History: Smoker: Current. Diabetes: Yes Pacer/Defib: [...] Max Wiliam: 0.7 (more content not included)... [facility] Basophils Auto (Bld) [#/Vol] on 08-02-2023 Basophils (Bld) [#/Vol] 0.1 10 3/uL 0.0-0.1 [facility] Basophils/100 WBC Auto (Bld) on 08-02-2023 Basophils/100 WBC (Bld) 0.8 % 0.2-2.0 [facility] Cholesterol in LDL Calc [Mas s/Vol]on 08-02-2023 Cholesterol in LDL [Mass/Vol] 31.0 mg/dL [facility] Comment on above: <100 mg/dl [id number] 0-129 mg/dl NEAR OR ABOVE [id number] mg/dl BORDERLINE [id number] mg/dl HIGH>190 mg/dl VERY HIGH Cholesterol in VLDL Calc [Ma ss/Vol]on 08-02-2023 Cholesterol in VLDL [Mass/Vol] 25.2 mg/dL [facility] Eosinophils/100 WBC Auto (Bl d)on 08-02-2023 Eosinophils/100 WBC (Bld) 6.2 % 0.9-7.0 [facility] Erythrocyte distribution wid th Auto (RBC) [Ratio]on 08-02-2023 Erythrocyte distribution width (RBC) [Ratio] 18.5 % High 11.0-15.0 [facility] Estimated glomerular filtrat ion rate (GFR) non- Americanon 08-02-2023 GFR/1.73 sq M.predicted among non-blacks MDRD (S/P/Bld) [Vol rate/Area] mL/min/{1.73_m2} >=60 [facility] Globulin Calc (S) [Mass/Vol] on 08-02-2023 Globulin (S) [Mass/Vol] 4.0 g/dL [facility] Glucose mean value [Mass/vol ume] in Blood Estimated from glycated hemoglobinon 08-02-2023 Average glucose Estimated from glycated hemoglobin (Bld) [Mass/Vol] 258 mg/dL [facility] Hematocrit Auto (Bld) [Volum e fraction]on 08-02-2023 Hematocrit (Bld) [Volume fraction] 37.2 % Low 42.0-54.0 [facility] Hemoglobin [Mass/volume] in Bloodon 08-02-2023 Hemoglobin (Bld) [Mass/Vol] 11.3 g/dL Low 14.0-18.0 [facility] Laboratory - Chemistry and C hemistry - challengeon 08-02-2023 Albumin [Mass/Vol] 3.4 g/dL 3.4-5.0 [facility] ALP [Catalytic activity/Vol] 99 U/L 46-116 [facility] ALT [Catalytic activity/Vol] 53 U/L 16-63 [facility] AST [Catalytic activity/Vol] 26 U/L 15-37 [facility] Bilirubin [Mass/Vol] 0.5 mg/dL 0.2-1.0 [facility] Calcium [Mass/Vol] 9.0 mg/dL 8.5-10.1 [facility] Chloride [Moles/Vol] 104 mmol/L 98-107 [facility] Cholesterol [Mass/Vol] 85 mg/dL <=200 [facility] Cholesterol in HDL [Mass/Vol] 29 mg/dL Low 40-60 [facility] Comment on above: > or =60 mg/dl - LOW CARDIOVASCULAR RISK<40 mg/dl - HIGH CARDIOVASCULAR RISK CO2 [Moles/Vol] 27.0 mmol/L 21.0-32.0 [facility] Creatinine [Mass/Vol] 1.08 mg/dL 0.70-1.30 [facility] GFR/1.73 sq M.predicted MDRD (S/P/Bld) [Vol rate/Area] mL/min/{1.73_m2} >=60 [facility] Glucose [Mass/Vol] 199 mg/dL High 74-106 [facility] Potassium [Moles/Vol] 4.2 mmol/L 3.5-5.1 [facility] Protein [Mass/Vol] 7.4 g/dL 6.4-8.2 [facility] Sodium [Moles/Vol] 138 mmol/L 136-145 [facility] Triglyceride [Mass/Vol] 126 mg/dL <=150 [facility] Urea nitrogen [Mass/Vol] 20.0 mg/dL High 7.0-18.0 [facility] Urea nitrogen/Creatinine [Mass ratio] 18.5 mg/mg [facility] Laboratory - Hematology and Cell countson 08-02-2023 HbA1c (Bld) [Mass fraction] 10.6 % High 4.5-6.2 [facility] Comment on above: ADA RECOMMENDED LIMI T 4.0 - 6.0ADA THERAPEUTIC TARGET < 7.0ACTION SUGGESTED> 7.0 Immature granulocytes/100 WBC (Bld) 0.2 % 0.0-0.5 [facility] Leukocytes [#/volume] correc lily for nucleated erythrocytes in Blood by Automated counon 08-02-2023 WBC corrected for nucl RBC Auto (Bld) [#/Vol] 8.2 10 3/uL 4.0-11.0 [facility] Lymphocytes Auto (Bld) [#/Vo l]on 08-02-2023 Lymphocytes (Bld) [#/Vol] 3.0 10 3/uL 1.2-3.8 [facility] Lymphocytes/100 WBC Auto (Bl d)on 08-02-2023 Lymphocytes/100 WBC (Bld) 36.4 % 20.5-60.0 [facility] MCH Auto (RBC) [Entitic mass ]on 08-02-2023 MCH (RBC) [Entitic mass] 24.5 pg Low 25.9-34.0 [facility] MCHC Auto (RBC) [Mass/Vol]on 08-02-2023 MCHC (RBC) [Mass/Vol] 30.4 g/dL 29.9-35.2 [facility] MCV Auto (RBC) [Entitic vol] on 08-02-2023 MCV (RBC) [Entitic vol] 80.5 fL 80.0-94.0 [facility] Microalbumin [Mass/volume] i n Urineon 08-02-2023 Albumin DL <= 20 mg/L (U) [Mass/Vol] 15.5 mg/dL <=30.0 [facility] Monocytes Auto (Bld) [#/Vol] on 08-02-2023 Monocytes (Bld) [#/Vol] 0.9 10 3/uL High 0.3-0.8 [facility] Monocytes/100 WBC Auto (Bld) on 08-02-2023 Monocytes/100 WBC (Bld) 10.3 % 1.7-12.0 [facility] Neutrophils Auto (Bld) [#/Vo l]on 08-02-2023 Neutrophils (Bld) [#/Vol] 3.8 10 3/uL 1.4-6.5 [facility] Neutrophils/100 WBC Auto (Bl d)on 08-02-2023 Neutrophils/100 WBC (Bld) 46.1 % 43.0-75.0 [facility] No Panel Informationon 08-01 Eosinophils # (Auto) 0.5 10 3/uL 0.0-0.7 [facility] Immature Granulocyte # (Auto) 0.02 10 3/uL 0.00-0.03 [facility] Prostate Specific Antigen Screen 0.49 ng/mL <=4.00 [facility] Platelet mean volume Auto (B ld) [Entitic vol]on 08-02-2023 Platelet mean volume (Bld) [Entitic vol] 11.3 fL 9.5-13.5 [facility] Platelets Auto (Bld) [#/Vol] on 08-02-2023 Platelets (Bld) [#/Vol] 245 10 3/uL 150-450 [facility] RBC Auto (Bld) [#/Vol]on RBC (Bld) [#/Vol] 4.62 10 6/uL Low 4.70-6.10 [facility] Serum or plasma albumin/glob ulin mass ratioon 08-02-2023 Albumin/Globulin [Mass ratio] 0.9 {ratio} [facility] Serum or plasma anion gap de terminationon 08-02-2023 Anion gap [Moles/Vol] 11.2 mmol/L [facility] Serum or plasma total choles terol/high density lipoprotein (HDL) cholesterol mass quin 08-02-2023 Cholesterol.total/Chol esterol in HDL [Mass ratio] 2.9 {ratio} [facility] Comment on above: 3.3 - 4.4 LOW RISK4. 4 - 7.1 AVERAGE RISK7.1 - 11.0 MODERATE RISK>11.0 HIGH RISK ECG 12 Leadon 07-13-2023 Atrial fibrillation, AV sequential pacing, PVCs, abnormal ECG [facility] Work Phone: XR Chest 2 Viewson These images are not reportable by radiology and will not be interpreted by Radiologists. IMAGING XR Chest 2 Viewson 4 1. No evidence of ac [place] cardiopulmonary process. MACRO: None Signed by: Roel Strickland 05/22/2023 10:28 AM Dictation workstation: [id number] MMODAL Interpreted By: Roel Blount, STUDY: XR CHEST 2 VIEWS; 05/21/2023 12:44 pm INDICATION: Signs/Symptoms:lead placement. COMPARISON: 01/26/2023 ACCESSION NUMBER(S): [id number] ORDERING CLINICIAN: ACRMEN HA FINDINGS: Left-sided pacemaker in place. Median sternotomy wires. CARDIOMEDIASTINAL SILHOUETTE: Cardiomediastinal silhouette is normal in size and configuration. LUNGS: Lungs are clear. ABDOMEN: No remarkable upper abdominal findings. BONES: No acute osseous changes. MMODAL Roel Strickland MD - 05/22/2023 Interpreted By: Roel Strickland, STUDY: XR CHEST 2 VIEWS; 05/21/2023 12:44 pm INDICATION: Signs/Symptoms:lead placement. COMPARISON: 01/26/2023 ACCESSION NUMBER(S): [id number] ORDERING CLINICIAN: CARMEN HA FINDINGS: Left-sided pacemaker in place. Median sternotomy wires. CARDIOMEDIASTINAL SILHOUETTE: Cardiomediastinal silhouette is normal in size and configuration. LUNGS: Lungs are clear. ABDOMEN: No remarkable upper abdominal findings. BONES: No acute osseous changes. IMPRESSION: 1. No evidence of acute cardiopulmonary process. MACRO: None Signed by: Roel Strickland 05/22/2023 10:28 AM Dictation workstation: [id number] [facility] Work Phone: XR Chest 2 ViewsOrdered By: Roel Strickland on 05-22-2023 [facility] Work Phone: ECG 12 lead (Clinic Performe d)on 05-21-2023 [facility] Work Phone: XR CHEST 2 VIEWSon 4 XR CHEST 2 VIEWS Interpreted By: Roel Blount, STUDY: XR CHEST 2 VIEWS; 05/21/2023 12:44 pm INDICATION: Signs/Symptoms:lead placement. COMPARISON: 01/26/2023 ACCESSION NUMBER(S): [id number] ORDERING CLINICIAN: CARMEN HA FINDINGS: Left-sided pacemaker in place. Median sternotomy wires. CARDIOMEDIASTINAL SILHOUETTE: Cardiomediastinal silhouette is normal in size and configuration. LUNGS: Lungs are clear. ABDOMEN: No remarkable upper abdominal findings. BONES: No acute osseous changes. IMPRESSION: 1. No evidence of acute cardiopulmonary process. MACRO: None Signed by: oRel Strickland 05/22/2023 10:28 AM Dictation workstation: [id number] Normal [facility] XR Chest 2 Viewson 4 Radiology Study observation (narrative) [facility] Work Phone: Aspartate Amino Transferaseo n 03-24-2023 AST [Catalytic activity/Vol] 34 U/L Normal 13-39 [facility] Comment on above: Performed By: #### C REAT, LYTES, CBC, PP, LIPID, BUN #### [facility] [address] Aspartate aminotransferase [ Enzymatic activity/volume] in Serum or PlasmaOrdered By: Franck Posey on 03-24-2023 AST [Catalytic activity/Vol] 34 U/L [address] [place] [address] Basic Metabolic Panelon Anion gap [Moles/Vol] 11.0 mmol/L Normal 6.0-15.0 [facility] Comment on above: Performed By: #### C REAT, LYTES, CBC, PP, LIPID, BUN #### [facility] [address] [place] [address] [place] Calcium [Mass/Vol] 9.5 mg/dL Normal 8.6-10.3 [facility] Comment on above: Performed By: #### C REAT, LYTES, CBC, PP, LIPID, BUN #### [facility] [address] [place] [address] [place] Chloride [Moles/Vol] 106 mmol/L Normal 98-107 [facility] Comment on above: Performed By: #### C REAT, LYTES, CBC, PP, LIPID, BUN #### [facility] [address] CO2 [Moles/Vol] 28.4 mmol/L Normal 21.0-31.0 [facility] Comment on above: Performed By: #### C REAT, LYTES, CBC, PP, LIPID, BUN #### [facility] [address] Creatinine [Mass/Vol] 1.22 mg/dL Normal 0.70-1.30 [facility] Comment on above: Performed By: #### C REAT, LYTES, CBC, PP, LIPID, BUN #### [address] GFR/1.73 sq M.predicted MDRD (S/P/Bld) [Vol rate/Area] mL/min/{1.73_m2} [facility] Comment on above: Performed By: #### C REAT, LYTES, CBC, PP, LIPID, BUN #### [address] Glucose [Mass/Vol] 179 mg/dL High 70-100 [facility] Comment on above: Result Comment: [facility] Glucose Reference Range is dependent on time and content of last meal. Glucose of more than 200 mg/dL in a nonstressed, ambulatory subject supports the diagnosis of Diabetes Mellitus. ADA recommended reference range Performed By: #### C REAT, LYTES, CBC, PP, LIPID, BUN #### [address] Potassium [Moles/Vol] 5.4 mmol/L High 3.5-5.1 [facility] Comment on above: Performed By: #### C REAT, LYTES, CBC, PP, LIPID, BUN #### [address] Sodium [Moles/Vol] 140 mmol/L Normal 136-145 [facility] Comment on above: Performed By: #### C REAT, LYTES, CBC, PP, LIPID, BUN #### [address] [address] [place] Urea nitrogen [Mass/Vol] 17 mg/dL Normal 7-25 [facility] Comment on above: Performed By: #### C REAT, LYTES, CBC, PP, LIPID, BUN #### [facility] [address] [place] [id number] [facility] Calcium [Mass/volume] in Ser um or PlasmaOrdered By: Franck Posey on 03-24-2023 Calcium [Mass/Vol] 9.5 mg/dL 8.6-10.3 [facility] Carbon dioxide, total [Moles /volume] in Serum or PlasmaOrdered By: Franck Posey on 03-24-2023 CO2 [Moles/Vol] 28.4 mmol/L 21.0-31.0 [facility] Chloride [Moles/volume] in S radha or PlasmaOrdered By: Franck Posey on 03-24-2023 Chloride [Moles/Vol] 106 mmol/L 98-107 [facility] Creatinine [Mass/volume] in Serum or PlasmaOrdered By: Franck Posey on 03-24-2023 Creatinine [Mass/Vol] 1.22 mg/dL 0.70-1.30 [facility] Glucose [Mass/volume] in Ser um or PlasmaOrdered By: Franck Posey on 03-24-2023 Glucose [Mass/Vol] 179 mg/dL 70-100 [facility] Comment on above: ADA recommended refe rence rangeRandom Glucose Reference Range is dependent on time and content of last meal. Glucose of more than 200 mg/dL in a nonstressed, ambulatory subject supports the diagnosis of Diabetes Mellitus. No Panel InformationOrdered By: Franck Posey on 03-24-2023 Estimated GFR (CKD-EPI) > 60.0 mL/Min [facility] Creatinine Clearance (Chem N/A [facility] Potassium [Moles/volume] in Serum or PlasmaOrdered By: Franck Posey on 03-24-2023 Potassium [Moles/Vol] 5.4 mmol/L 3.5-5.1 [facility] Serum or plasma anion gap de terminationOrdered By: Franck Posey on 03-24-2023 Anion gap [Moles/Vol] 11.0 mmol/L 6.0-15.0 [facility] Sodium [Moles/volume] in Ser um or PlasmaOrdered By: Franck Posey on 03-24-2023 Sodium [Moles/Vol] 140 mmol/L 136-145 [facility] Thyroid Stimulating Hormoneo n 03-24-2023 TSH Qn 5.21 m[IU]/L Normal 0.45-5.33 [facility] Comment on above: Result Comment: PERF ORMED BY: [place] [address] PATHOLOGIST STRIP WINDER HAILEY CALDERÓN M.D. Performed By: #### C REAT, LYTES, CBC, PP, LIPID, BUN #### [address] Thyrotropin [Units/volume] i n Serum or PlasmaOrdered By: Franck Posey on 03-24-2023 TSH Qn 5.21 m[IU]/L 0.45-5.33 [facility] Urea nitrogen [Mass/volume] in Serum or PlasmaOrdered By: Franck Posey on 03-24-2023 Urea nitrogen [Mass/Vol] 17 mg/dL 7-25 [facility] XR chest 2V*on 03-24-2023 XR chest 2V* [facility] [place] [address] XRay Report Signed Patient: Lesley Quintero MR#: [id number] : 1955 Acct:[id number] Age/Sex: 68 / M ADM Date: 03/24/23 Loc: RT Room: Type: [facility] Attending Dr: Franck Posey DO Copies to: [...] Maya Isbell M.D.03/24/2023 4:06 PM Dictation Location: [place] [address] Transcribed By: [facility] 03/24/23 1606 Dictated By: Maya Isbell MD 03/24/23 1604 Signed By: 03/24/23 1606 [facility] XR CHEST 2 VIEWSon 3 XR CHEST 2 VIEWS Interpreted By: Jonathan Karimi, STUDY: XR CHEST 2 VIEWS; 01/26/2023 1:36 pm INDICATION: Signs/Symptoms:device upgrade. COMPARISON: Chest radiograph 01/07/2023 ACCESSION NUMBER(S): [id number] ORDERING CLINICIAN: HOLLI VAZQUEZ FINDINGS: PA and [...] Jonathan Manzo 01/27/2023 10:43 PM Dictation workstation: [id number] [facility] Comment on above: Order Comment: Prepr ocedure Basic metabolic 2000 panelon 01-07-2023 Anion gap [Moles/Vol] 11 mmol/L Normal 10-20 [facility] Comment on above: Performed By: #### 2 4321-2 #### PEPITO Hernandez ([id number]) [facility] ([facility]) [address] [place] [address] Calcium [Mass/Vol] 9.0 mg/dL Normal 8.6-10.3 [facility] Comment on above: Performed By: #### 2 4321-2 #### PEPITO Hernandez ([id number]) [facility] ([facility]) [address] [place] [address] Chloride [Moles/Vol] 103 mmol/L Normal 98-107 [facility] Comment on above: Performed By: #### 2 4321-2 #### PEPITO Hernandez ([id number]) [facility] ([facility]) [address] [place] [address] CO2 [Moles/Vol] 26 mmol/L Normal 21-32 [facility] Comment on above: Performed By: #### 2 4321-2 #### PEPITO Hernandez ([id number]) [facility] ([facility] [address] [place] [address] Creatinine [Mass/Vol] 1.47 mg/dL High 0.50-1.30 [facility] Comment on above: Performed By: #### 2 4321-2 #### PEPITO Hernandez ([id number]) [facility] ([facility]) [address] [place] [address] GFR/1.73 sq M.predicted MDRD (S/P/Bld) [Vol rate/Area] 53 mL/min/1.73m*2 Low >60 [facility] Comment on above: Result Comment: Calc ulations of estimated GFR are performed using the 2020 CKD-EPI Study Refit equation without the race variable for the IDMS-Traceable creatinine methods. https://jasn.asnjournals.org/content//ASN.89258 34727 Performed By: #### 2 4321-2 #### PEPITO Hernandez ([id number]) [facility] ([facility]) [address] [place] [address] Glucose [Mass/Vol] 224 mg/dL High 74-99 [facility] Comment on above: Performed By: #### 2 4321-2 #### PEPITO Hernandez ([id number]) [facility] ([facility]) [address] [place] [address] Potassium [Moles/Vol] 4.6 mmol/L Normal 3.5-5.3 [facility] Comment on above: Performed By: #### 2 4321-2 #### PEPITO Hernandez ([id number]) [facility] ([facility]) [address] [place] [address] Sodium [Moles/Vol] 135 mmol/L Low 136-145 [facility] Comment on above: Performed By: #### 2 4321-2 #### PEPITO Hernandez ([id number]) [facility] ([facility]) [address] [place] [address] Urea nitrogen [Mass/Vol] 27 mg/dL High 6-23 [facility] Comment on above: Performed By: #### 2 4321-2 #### PEPITO Hernandez ([id number]) [facility] ([facility] [address] [place] [address] CBC panel Auto (Bld)on 01-07 Erythrocyte distribution width (RBC) [Ratio] 17.1 % High 11.5-14.5 [facility] Comment on above: Performed By: #### 5 8410-2 #### PEPITO Hernandez ([id number]) [facility] ([facility]) [address] [place] [address] Hematocrit (Bld) [Volume fraction] 44.0 % Normal 41.0-52.0 [facility] Comment on above: Performed By: #### 5 8410-2 #### PEPITO Hernandez ([id number]) [facility] ([facility] [address] [place] [address] Hemoglobin (Bld) [Mass/Vol] 14.0 g/dL Normal 13.5-17.5 [facility] Comment on above: Performed By: #### 5 8410-2 #### PEPITO Hernandez ([id number]) [facility] ([facility]) [address] [place] [address] MCH (RBC) [Entitic mass] 27.7 pg Normal 26.0-34.0 [facility] Comment on above: Performed By: #### 5 8410-2 #### PEPITO Hernandez ([id number]) [facility] ([facility] [address] [place] [address] MCHC (RBC) [Mass/Vol] 31.8 g/dL Low 32.0-36.0 [facility] Comment on above: Performed By: #### 5 8410-2 #### PEPITO Hernandez ([id number]) [facility] [address] [place] [address] MCV (RBC) [Entitic vol] 87 fL Normal 80-100 [facility] Comment on above: Performed By: #### 5 8410-2 #### PEPITO Hernandez ([id number]) [facility] ([facility]) [address] [place] [address] Nucleated RBC/100 WBC (Bld) [Ratio] 0.0 /100 WBCs Normal 0.0-0.0 [facility] Comment on above: Performed By: #### 5 8410-2 #### PEPITO Hernandez ([id number]) [facility] [address] [place] [address] Platelet mean volume (Bld) [Entitic vol] 12.6 fL High 7.5-11.5 [facility] Comment on above: Performed By: #### 5 8410-2 #### PEPITO Hernandez ([id number]) [facility] [address] [place] [address] Platelets (Bld) [#/Vol] 206 x10*3/uL Normal 150-450 [facility] Comment on above: Performed By: #### 5 8410-2 #### PEPITO Hernandez ([id number]) [facility] [address] [place] [address] RBC (Bld) [#/Vol] 5.06 x10*6/uL Normal 4.50-5.90 [facility] Comment on above: Performed By: #### 5 8410-2 #### PEPITO Hernandez ([id number]) [facility] ([facility]) [address] [place] [address] WBC (Bld) [#/Vol] 9.4 x10*3/uL Normal 4.4-11.3 [facility] Comment on above: Performed By: #### 5 8410-2 #### PEPITO Hernandez ([id number]) [facility] [address] [place] [address] ECG 12-LEADon 01-07-2023 ECG 12-LEAD Ventricular Rate 87 Atrial Rate 68 QRS Duration 114 Q-T Interval 436 QTC Calculation(Bazett) 524 R Fordyce 46 T Fordyce -64 QRS Count 15 Q Onset 214 T Offset 432 QTC Fredericia 493 Diagnosis Ventricular-paced rhythm PVC's Abnormal ECG When compared with ECG of 07-JAN-2023 07:58, (unconfirmed) Electronic ventricular pacemaker has replaced Electronic atrial pacemaker Confirmed by Darnell Bruce ([id number]) on 01/07/2023 3:28:55 PM Normal [facility] ECG 12-LEAD Ventricular Rate 70 Atrial Rate 70 P-R Interval 190 QRS Duration 174 Q-T Interval 504 QTC Calculation(Bazett) 544 R Fordyce -78 T Fordyce 71 QRS Count 11 Q Onset 196 T Offset 448 QTC Fredericia 530 Diagnosis AV sequential or dual chamber electronic pacemaker Abnormal ECG Confirmed by Darnell Bruce ([id number]) on 01/07/2023 3:26:08 PM Normal [facility] Glucose Test strip manual (B ld) [Mass/Vol]on 01-07-2023 Glucose [Mass/Vol] 161 mg/dL High 74-99 [facility] Comment on above: Performed By: #### 2 341-6 #### PEPITO Hernandez ([id number]) [facility] ([facility] [address] [place] [address] Glucose [Mass/Vol] 194 mg/dL High 74-99 [facility] Comment on above: Performed By: #### 2 341-6 #### PEPITO Hernandez ([id number]) [facility] [address] [place] [address] Glucose [Mass/Vol] 207 mg/dL High 74-99 [facility] Comment on above: Performed By: #### 2 341-6 #### PEPITO Hernandez ([id number]) [facility] [address] [place] [address] Glucose [Mass/Vol] 235 mg/dL High [facility]99 [facility] Comment on above: Performed By: #### 2 341-6 #### PEPITO Hernandez ([id number]) [facility] [address] [place] [address] Glucose [Mass/Vol] 217 mg/dL High [address] [place] [address] Comment on above: Performed By: #### 2 341-6 #### PEPITO Hernandez ([id number]) [facility] [address] [place] [address] Glucose [Mass/Vol] 206 mg/dL High [address] Comment on above: Result Comment: RN/M D NOTIFIED Performed By: #### 2 341-6 #### PEPITO Hernandez ([id number]) [facility] ([facility]) [address] [place] [address] PT and aPTT panel Coag (PPP) on 01-07-2023 aPTT Coag (PPP) [Time] 32 s Normal 27-38 [facility] Comment on above: Order Comment: The A PTT is no longer used for monitoring Unfractionated Heparin Therapy. For monitoring Heparin Therapy, use the Heparin Assay. Performed By: #### 3 4529-8 #### PEPITO Hernandez ([id number]) [facility] ([facility] [address] [place] [address] INR Coag (PPP) [Relative time] 1.1 Normal 0.9-1.1 [facility] Comment on above: Order Comment: The A PTT is no longer used for monitoring Unfractionated Heparin Therapy. For monitoring Heparin Therapy, use the Heparin Assay. Performed By: #### 3 4529-8 #### PEPITO Hernandez ([id number]) [facility] [address] [place] [address] PT Coag (PPP) [Time] 12.1 s Normal 9.8-12.8 [facility] Comment on above: Order Comment: The A PTT is no longer used for monitoring Unfractionated Heparin Therapy. For monitoring Heparin Therapy, use the Heparin Assay. Performed By: #### 3 4529-8 #### PEPITO Hernandez ([id number]) [facility] [address] [place] [address]281 XR CHEST 2 VIEWSon 3 XR CHEST 2 VIEWS Interpreted By: Marilu Walton, STUDY: XR CHEST 2 VIEWS; 01/07/2023 8:34 am INDICATION: Signs/Symptoms:Pre-op upgrade to biventricular pacemaker. COMPARISON: 10/21/2017 ACCESSION NUMBER(S): [id number] ORDERING CLINICIAN: HOLLI MORALES FINDINGS: Bipolar left [...] Marilu Ventura 01/07/2023 8:40 AM Dictation workstation: [id number] [facility] Comment on above: Order Comment: Prepr ocedure [...] (V72.81) (Z01.810) Atherosclerosis of coronary artery of 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 pectoris (414.01) (I25.10) Cardiac [...] Ha. 1 Upgrade to Biventricular Device at [place] [id number] 1 Amended By: Nadeem Townsend; Nov 30 [...] s/p dual chamber pacemaker. Treatment options discussed. [employer] decision tool. For upgrade to biventricular ICD. [...] are indications for biventricular device, pacemaker removal, [employer] decision tool, informed consent, Lovenox bridge, possibility of unable to place CS lead, device followup, tobacco cessation for greater than 3 minutes, if and what medication refills needed, treatment options, brochure for SVT, meds vs ablation, Holter results, risks, benefits, and imponderables. [employer] lifestyle changes and behavioral modification discussed. All questions answered in detail. Counseling over 50% visit regarding above. Patient and family appreciative of care. Active Problems Problems Anticoagulated (V58.61) (Z79.01) Atherosclerosis of coronary artery of ho-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 pectoris (414.01) (I25.10) Cardiac pacemaker in situ (V45.01) (Z95.0) CHF (NYHA class III, ACC/AHA stage C) (428.0) (I50.9) Class 1 obesity with body mass index (BMI) of 33.0 to 33.9 in adult (278.00,V85.33) (E66.9,Z68.33) Class 2 obesity with body mass index (BMI) of 35.0 to 35.9 in adult (278.00,V85.35) (E66.9,Z68.35) Coronary stent occlusion (996.72) (T82.297A) Current every day smoker (305.1) (F17.200) almost a pack daily Dementia (294.20) (F03.90) Diabetes mellitus (250.00) (E11.9) Drug-induced constipation with proper administration (564.09) (K59.03) GERD (gastroesophageal reflux disease) (530.81) (K21.9) H/O sick sinus (more content not included)... Normal [facility] Tobacco Screening.on 023 Adult depression screening assessment No -[facility] Talentu emily 250 DO Work Phone: Fall risk assessment a) No falls within the last year [facility] [employer] 250 DO Work Phone: Tobacco use status CPHS a) Yes -[facility] [employer] 250 DO Work Phone: Tobacco Screening. Yes [facility]-Kira Talentu emily 250 DO Work Phone: Office Visit (Cardiology)on 11-25-2022 Follow-up visit Diagnoses/Problems Assessed Atherosclerosis of coronary artery of ho-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 pectoris (414.01) (I25.10) Oct 2022 cardiac cath Newly occluded pAV CX/dCX/OM2 MOLDER VACUUM RCA AND SVG - RCA RAMIREZ-LAD patent [...] Treatment Evaluate AND Treat upgrade ICD possible MANAGER SHIPPING Status: Active Requested for: 30Nov2022 AMA Intake updated by CMS ACCOUNT (INTRANET) on 2022-11-27 22:02 New Recipient: Carmen Ha Appointment Date: 2022-11-30 10:20 Class 1 obesity with body mass index (BMI) of 33.0 to 33.9 in adult Healthy Weight Tips; Status:Complete; Done: [id number] SocHx: Current every day smoker You need to stop smoking. Though it is not easy, more than half of all adult smokers have quit. We encourage you to write down all the reasons you should quit smoking and set a quit date for yourself. Ask us how we can help. You may also call 6-881-PQGONOW for free resources and assistance.; Status:Complete; Done: [id number] Tobacco Use Screening; Status:Complete; Done: [id number] CHF (NYHA class III, ACC/AHA stage C) [...] Referral to Dr. Ha for ICD possible MANAGER SHIPPING upgrade 3. Return for follow-up; in the [...] hypotension. Denies any prior syncopal episodes. SJM 2272 dual-chamber permanent pacemaker with ventricular [...] is borderlin (more content not included)... Normal [place] Tobacco Screening.on 023 Fall risk assessment a) No falls within the last year [facility] [employer] 250 DO Work Phone: Tobacco use status CPHS a) Yes [facility] [employer] 250 DO Work Phone: Tobacco Screening. Yes [facility]Sand[facility] emily 250 DO Work Phone: Activated partial thrombopla stin time (aPTT) in platelet poor plasma by coagulation aOrdered By: Franck Posey on 11-19-2022 aPTT Coag (PPP) [Time] 28.8 s 25.1-36.5 [facility] Coagulation Profileon 2022 aPTT Coag (Bld) [Time] 28.8 s Normal 25.1-36.5 [facility] Comment on above: Result Comment: PERF ORMED BY: [place] [address] PATHOLOGIST STRIP WINDER HAILEY CALDERÓN M.D. Performed By: #### P P #### [facility] [address] [place] [address] INR Coag (PPP) [Relative time] 1.0 {INR} Normal [facility] Comment on above: Result Comment: INR [...] 4.5 Performed By: #### P P #### [facility] [address] [place] [address] PT Coag (PPP) [Time] 12.1 s Normal 9.0-12.9 [facility] Comment on above: Performed By: #### P P #### [facility] [address] [place] [address] INR in Platelet poor plasma by Coagulation assayOrdered By: Franck Posey on 11-19-2022 INR Coag (PPP) [Relative time] 1.0 {INR} [facility] Comment on above: INR Therapeutic Rang [...] PT Coag (PPP) [Time] 12.1 s 9.0-12.9 [facility] No Panel Informationon 11-19 28.8\S\28.8 Normal 25.1-36.5 [facility] 250 DO Work Phone: Comment on above: PERFORMED BY:[facility] [place] [phone] MEDICAL DIRECTORHAILEY CALDERÓN M.D. 1.0\S\1.0 Normal [facility] 250 DO Work Phone: Comment on above: [...] valves: 3 - 4.5 12.1\S\12.1 Normal 9.0-12.9 [facility] 250 DO Work Phone: Activated partial thrombopla stin time (aPTT) in platelet poor plasma by coagulation aOrdered By: Franck Posey on 11-13-2022 aPTT Coag (PPP) [Time] 37.0 s 25.1-36.5 [facility] Basophils Auto (Bld) [#/Vol] Ordered By: Franck Posey on 11-13-2022 Basophils (Bld) [#/Vol] 0.1 10*3/uL 0.0-0.2 [facility] Basophils/100 WBC Auto (Bld) Ordered By: Franck Posey on 11-13-2022 Basophils/100 WBC (Bld) 0.6 % . [facility] Blood Urea Nitrogenon 2022 Urea nitrogen [Mass/Vol] 15 mg/dL Normal 7-25 [facility] Comment on above: Performed By: #### C REAT, LYTES, CBC, PP, LIPID, BUN #### [facility] [address] Carbon dioxide, total [Moles /volume] in Serum or PlasmaOrdered By: Franck Posey on 11-13-2022 CO2 [Moles/Vol] 28.0 mmol/L 21.0-31.0 [facility] [place] Chloride [Moles/volume] in S radha or PlasmaOrdered By: Franck Posey on 11-13-2022 Chloride [Moles/Vol] 104 mmol/L 98-107 [facility] Cholesterol [Mass/volume] in Serum or PlasmaOrdered By: Franck Posey on 11-13-2022 Cholesterol [Mass/Vol] 104 mg/dL 140-200 [facility] Comment on above: Chol less than 200 m g/dl low riskChol 201-239 mg/dl borderline riskChol 240 mg/dl and greater high risk Cholesterol in LDL Calc [Mas s/Vol]Ordered By: Franck Posey on 11-13-2022 Cholesterol in LDL [Mass/Vol] 47 mg/dL 0-100 [facility] Comment on above: LDL ATP III CLASSIFI CATIONLDL less than 100 mg/dL OptimalLDL 100-129 mg/dL Near or above optimalLDL 130-159 mg/dL Borderline highLDL 160-189 mg/dL HighLDL greater than 189 mg/dL Very high Cholesterol in VLDL Calc [Ma ss/Vol]Ordered By: Franck Posey on 11-13-2022 Cholesterol in VLDL [Mass/Vol] 32 mg/dL [facility] Coagulation Profileon 2022 aPTT Coag (Bld) [Time] 37.0 s High 25.1-36.5 [facility] Comment on above: Result Comment: PERF ORMED BY: [place] [address] PATHOLOGIST STRIP WINDER HAILEY CALDERÓN M.D. Performed By: #### C REAT, LYTES, CBC, PP, LIPID, BUN #### [facility] [address] INR Coag (PPP) [Relative time] 2.0 {INR} Normal [facility] Comment on above: Result Comment: INR [...] REAT, LYTES, CBC, PP, LIPID, BUN #### [address] PT Coag (PPP) [Time] 22.7 s High 9.0-12.9 [facility] Comment on above: Performed By: #### C REAT, LYTES, CBC, PP, LIPID, BUN #### [address] Complete Blood Count Auto Di ffon 11-13-2022 Basophils (Bld) [#/Vol] 0.1 10*3/uL Normal 0.0-0.2 [facility] Comment on above: Result Comment: PERF ORMED BY: [place] [address] PATHOLOGIST STRIP WINDER HAILEY CALDERÓN M.D. Performed By: #### C REAT, LYTES, CBC, PP, LIPID, BUN #### [address] Basophils/100 WBC (Bld) 0.6 % Normal . [facility] Comment on above: Performed By: #### C REAT, LYTES, CBC, PP, LIPID, BUN #### [address] Eosinophils (Bld) [#/Vol] 0.5 10*3/uL High 0.0-0.45 [facility] Comment on above: Performed By: #### C REAT, LYTES, CBC, PP, LIPID, BUN #### [place] [address] [place] Eosinophils/100 WBC (Bld) 5.2 % Normal . [facility] Comment on above: Performed By: #### C REAT, LYTES, CBC, PP, LIPID, BUN #### [address] Erythrocyte distribution width (RBC) [Ratio] 19.5 % High 12.0-14.8 [facility] Comment on above: Performed By: #### C REAT, LYTES, CBC, PP, LIPID, BUN #### [address] Hematocrit (Bld) [Volume fraction] 38.7 % Low 38.8-50.0 [facility] Comment on above: Performed By: #### C REAT, LYTES, CBC, PP, LIPID, BUN #### [address] Hemoglobin (Bld) [Mass/Vol] 12.6 g/dL Low 13.0-17.0 [facility] Comment on above: Performed By: #### C REAT, LYTES, CBC, PP, LIPID, BUN #### [address] Lymphocytes (Bld) [#/Vol] 3.1 10*3/uL Normal 1.00-4.8 [facility] Comment on above: Performed By: #### C REAT, LYTES, CBC, PP, LIPID, BUN #### [address] Lymphocytes/100 WBC (Bld) 35.2 % Normal . [facility] Comment on above: Performed By: #### C REAT, LYTES, CBC, PP, LIPID, BUN #### [address] MCH (RBC) [Entitic mass] 27.0 pg Low 27.5-35.2 [facility] Comment on above: Performed By: #### C REAT, LYTES, CBC, PP, LIPID, BUN #### [address] MCV (RBC) [Entitic vol] 82.6 fL Low 83.5-101 [facility] Comment on above: Performed By: #### C REAT, LYTES, CBC, PP, LIPID, BUN #### [address] Mean Corpuscular HGB Conc 32.6 g/dL Normal 32.5-35.6 [facility] Comment on above: Performed By: #### C REAT, LYTES, CBC, PP, LIPID, BUN #### [address] Monocytes (Bld) [#/Vol] 0.8 10*3/uL Normal 0.0-0.8 [facility] Comment on above: Performed By: #### C REAT, LYTES, CBC, PP, LIPID, BUN #### [address] Monocytes/100 WBC (Bld) 9.4 % Normal . [facility] Comment on above: Performed By: #### C REAT, LYTES, CBC, PP, LIPID, BUN #### [address] Neutrophils (Bld) [#/Vol] 4.4 10*3/uL Normal 1.8-7.7 [facility] Comment on above: Performed By: #### C REAT, LYTES, CBC, PP, LIPID, BUN #### [address] Neutrophils/100 WBC (Bld) 49.6 % Normal . [facility] Comment on above: Performed By: #### C REAT, LYTES, CBC, PP, LIPID, BUN #### [address] NRBC% 0.1 /100{WBC} Normal 0-0.5 [facility] Comment on above: Performed By: #### C REAT, LYTES, CBC, PP, LIPID, BUN #### [address] Platelet mean volume (Bld) [Entitic vol] 9.9 fL Normal 6.6-10.1 [facility] Comment on above: Performed By: #### C REAT, LYTES, CBC, PP, LIPID, BUN #### [address] Platelets (Bld) [#/Vol] 183 10*3/uL Normal 150-450 [facility] Comment on above: Performed By: #### C REAT, LYTES, CBC, PP, LIPID, BUN #### [address] RBC (Bld) [#/Vol] 4.68 10*6/uL Normal 3.90-5.60 [facility] Comment on above: Performed By: #### C REAT, LYTES, CBC, PP, LIPID, BUN #### [address] WBC (Bld) [#/Vol] 8.9 10*3/uL Normal 4.1-10.5 [facility] Comment on above: Performed By: #### C REAT, LYTES, CBC, PP, LIPID, BUN #### [address] Creatinineon 11-13-2022 Creatinine [Mass/Vol] 1.16 mg/dL Normal 0.70-1.30 [facility] Comment on above: Performed By: #### C REAT, LYTES, CBC, PP, LIPID, BUN #### [address] GFR/1.73 sq M.predicted MDRD (S/P/Bld) [Vol rate/Area] mL/min/{1.73_m2} [facility] Comment on above: Performed By: #### C REAT, LYTES, CBC, PP, LIPID, BUN #### [address] Creatinine [Mass/volume] in Serum or PlasmaOrdered By: Franck Posey on 11-13-2022 Creatinine [Mass/Vol] 1.16 mg/dL 0.70-1.30 [facility] ECG 12 lead ECGon 11-13-2022 ECG 12 lead ECG [facility] [place] [address] [place] [address] Electrocardiograph Report Signed Patient: Lesley Quintero MR#: [id number] : 1955 Acct:[id number] Age/Sex: 67 / M ADM Date: 11/13/22 Loc: PS [facility]: [facility]: Franck Posey DO Ordering Provider: Franck Posey DO Date of Service: 11/13/22 ECG/ECG 12 lead ECG: [facility] for [facility] Copies to: Test Reason : Blood [...] Lateral leads Confirmed by PATY PETERS MD ([facility]) on 11/16/2022 6:37:00 PM Referred By: KALPESH Electronically Signed By:PATY PETERS MD Transcribed By: MUS Signed By Paty Peters MD 0 11/16/22 1837 Normal [facility] Electrolyteson 11-13-2022 Anion gap [Moles/Vol] 8.7 mmol/L Normal 6.0-15.0 [facility] Comment on above: Performed By: #### C REAT LYTES, CBC, PP, LIPID, BUN #### [facility] [address] [place] [id number] [place] Chloride [Moles/Vol] 104 mmol/L Normal 98-107 [facility] Comment on above: Performed By: #### C REAT LYTES, CBC, PP, LIPID, BUN #### [facility] [address] [place] [id number] [place] CO2 [Moles/Vol] 28.0 mmol/L Normal 21.0-31.0 [facility] [place] Comment on above: Performed By: #### C REAT, LYTES, CBC, PP, LIPID, BUN #### [facility] [address] Potassium [Moles/Vol] 4.7 mmol/L Normal 3.5-5.1 [facility] Comment on above: Performed By: #### C REAT, LYTES, CBC, PP, LIPID, BUN #### [facility] [address] Sodium [Moles/Vol] 136 mmol/L Normal 136-145 [facility] Comment on above: Performed By: #### C REAT, LYTES, CBC, PP, LIPID, BUN #### [facility] [address] Eosinophils Auto (Bld) [#/Vo l]Ordered By: Franck Posey on 11-13-2022 Eosinophils (Bld) [#/Vol] 0.5 10*3/uL 0.0-0.45 [facility] Eosinophils/100 WBC Auto (Bl d)Ordered By: Franck Posey on 11-13-2022 Eosinophils/100 WBC (Bld) 5.2 % . [facility] Erythrocyte distribution wid th Auto (RBC) [Ratio]Ordered By: Franck Posey on 11-13-2022 Erythrocyte distribution width (RBC) [Ratio] 19.5 % 12.0-14.8 [facility] Hematocrit Auto (Bld) [Volum e fraction]Ordered By: Franck Posey on 11-13-2022 Hematocrit (Bld) [Volume fraction] 38.7 % 38.8-50.0 [facility] Hemoglobin [Mass/volume] in BloodOrdered By: Franck Posey on 11-13-2022 Hemoglobin (Bld) [Mass/Vol] 12.6 g/dL 13.0-17.0 [facility] INR in Platelet poor plasma by Coagulation assayOrdered By: Franck Posey on 11-13-2022 INR Coag (PPP) [Relative time] 2.0 {INR} [facility] Comment on above: INR Therapeutic Rang [...] Cholesterol [Mass/Vol] 104\S\104 below low threshold 140-200 -[facility] [employer] 250 DO Work Phone: Comment on above: Chol less than 200 m g/dl low risk Chol 201-239 mg/dl borderline risk Chol 240 mg/dl and greater high risk Cholesterol in LDL [Mass/Vol] 47\S\47 Normal 0-[address] [address] [address] DO Work Phone: Comment on above: LDL ATP III CLASSIFI CATION LDL less than 100 mg/dL Optimal LDL 100-129 mg/dL Near or above optimal LDL 130-159 mg/dL Borderline high LDL 160-189 mg/dL High LDL greater than 189 mg/dL Very high Laboratory - CoagulationOrde red By: Franck Posey on 11-13-2022 PT Coag (PPP) [Time] 22.7 s 9.0-12.9 [facility] Leukocytes [#/volume] correc lily for nucleated erythrocytes in Blood by Automated counOrdered By: Franck Posey on 11-13-2022 WBC corrected for nucl RBC Auto (Bld) [#/Vol] 8.9 10*3/uL 4.1-10.5 [facility] Lipid Panelon 11-13-2022 Cholesterol [Mass/Vol] 104 mg/dL Low 140-200 [facility] Comment on above: Result Comment: Chol less than 200 mg/dl low risk Chol 201-239 mg/dl borderline risk Chol 240 mg/dl and greater high risk Performed By: #### C REAT, LYTES, CBC, PP, LIPID, BUN #### [facility] [address] Cholesterol in HDL [Mass/Vol] 24 mg/dL Normal 23-92 [facility] Comment on above: Result Comment: HDL CHOL ATP-III CLASSIFICATION Cardiovascular Risk HDL > or equal to 60 mg/dL LOW HDL < 40 mg/dL HIGH Performed By: #### C REAT, LYTES, CBC, PP, LIPID, BUN #### [facility] [address] Cholesterol.total/Chol esterol in HDL [Mass ratio] 4.3 {ratio} Normal <5.0 [facility] Comment on above: Result Comment: PERF ORMED BY: [place] [address] PATHOLOGIST STRIP WINDER HAILEY CALDERÓN M.D. Performed By: #### C REAT, LYTES, CBC, PP, LIPID, BUN #### [address] LDL Cholesterol,Calculated 47 mg/dL Normal 0-100 [facility] Comment on above: Result Comment: LDL ATP III CLASSIFICATION LDL less than 100 mg/dL Optimal LDL 100-129 mg/dL Near or above optimal LDL 130-159 mg/dL Borderline high LDL 160-189 mg/dL High LDL greater than 189 mg/dL Very high Performed By: #### C REAT, LYTES, CBC, PP, LIPID, BUN #### [address] Triglyceride w/Reflex 164 mg/dL High 0-149 [facility] Comment on above: Result Comment: TRIG ATP III CLASSIFICATION TRIG less than 150 mg/dL Normal TRIG 150-199 mg/dL Borderline high TRIG 200-500 mg/dL High TRIG greater than 500 mg/dL Very high Standard traceable to the Center for Disease Conrtrol and Prevention (CDC) test method. Performed By: #### C REAT, LYTES, CBC, PP, LIPID, BUN #### [address] VLDL CHOLESTEROL 32 mg/dL Normal [facility] [place] Comment on above: Performed By: #### C REAT, LYTES, CBC, PP, LIPID, BUN #### [address] Lymphocytes Auto (Bld) [#/Vo l]Ordered By: Franck Posey on 11-13-2022 Lymphocytes (Bld) [#/Vol] 3.1 10*3/uL 1.00-4.8 [facility] Lymphocytes/100 WBC Auto (Bl d)Ordered By: Franck Posey on 11-13-2022 Lymphocytes/100 WBC (Bld) 35.2 % . [facility] MCH Auto (RBC) [Entitic mass ]Ordered By: Franck Posey on 11-13-2022 MCH (RBC) [Entitic mass] 27.0 pg 27.5-35.2 [facility] MCHC Auto (RBC) [Mass/Vol]Or dered By: Franck Posey on 11-13-2022 MCHC (RBC) [Mass/Vol] 32.6 g/dL 32.5-35.6 [facility] MCV Auto (RBC) [Entitic vol] Ordered By: Franck Posey on 11-13-2022 MCV (RBC) [Entitic vol] 82.6 fL 83.5-101 [facility] Monocytes Auto (Bld) [#/Vol] Ordered By: Franck Posey on 11-13-2022 Monocytes (Bld) [#/Vol] 0.8 10*3/uL 0.0-0.8 [facility] Monocytes/100 WBC Auto (Bld) Ordered By: Franck Posey on 11-13-2022 Monocytes/100 WBC (Bld) 9.4 % . [facility] Neutrophils Auto (Bld) [#/Vo l]Ordered By: Franck Posey on 11-13-2022 Neutrophils (Bld) [#/Vol] 4.4 10*3/uL 1.8-7.7 [facility] Neutrophils/100 WBC Auto (Bl d)Ordered By: Franck Posey on 11-13-2022 Neutrophils/100 WBC (Bld) 49.6 % . [facility] No Panel InformationOrdered By: Franck Posey on 11-13-2022 Estimated GFR (CKD-EPI) > 60.0 mL/Min [facility] Creatinine Clearance (Chem N/A [facility] No Panel Informationon 11-13 37.0\S\37.0 above high threshold 25.1-36.5 [facility] emily 250 DO Work Phone: Comment on above: PERFORMED BY:[facility] [place] [phone] MEDICAL DIRECTORHAILEY CALDERÓN M.D. 2.0\S\2.0 Normal -[facility] emily 250 DO Work Phone: Comment on [...] - 4.5 22.7\S\22.7 above high threshold 9.0-12.9 [facility] emily 250 DO Work Phone: 49.6\S\49.6 Normal . [facility] emily 250 DO Work Phone: 9.9\S\9.9 Normal 6.6-10.1 [facility] emily 250 DO Work Phone: 183\S\183 Normal 150-450 [facility] emily 250 DO Work Phone: 19.5\S\19.5 above high threshold 12.0-14.8 [facility] emily 250 DO Work Phone: 32.6\S\32.6 Normal 32.5-35.6 [facility] emily 250 DO Work Phone: 27.0\S\27.0 below low threshold 27.5-35.2 [facility] emily 250 DO Work Phone: 4.4\S\4.4 Normal 1.8-7.7 [facility] emily 250 DO Work Phone: [phone] 0.1\S\0.1 Normal 0.0-0.2 [facility] emily 250 DO Work Phone: Comment on above: PERFORMED BY:[place] [address] [address] [place] [phone] MEDICAL DIRECTORHAILEY CALDERÓN M.D. 0.6\S\0.6 Normal . -[facility] emily 250 DO Work Phone: [phone] 5.2\S\5.2 Normal . [facility] emily 250 DO Work Phone: [phone] 9.4\S\9.4 Normal . [facility] emily 250 DO Work Phone: [phone] 35.2\S\35.2 Normal . [facility] emily 250 DO Work Phone: 0.5\S\0.5 above high threshold 0.0-0.45 [facility] emily 250 DO Work Phone: [phone] 0.8\S\0.8 Normal 0.0-0.8 -[facility] emily 250 DO Work Phone: [phone] 3.1\S\3.1 Normal 1.00-4.8 -[facility] emily 250 DO Work Phone: [phone] 82.6\S\82.6 below low threshold 83.5-101 -[facility]Sand[facility] emily 250 DO Work Phone: [phone] 38.7\S\38.7 below low threshold 38.8-50.0 -[facility] emily 250 DO Work Phone: [phone] 12.6\S\12.6 below low threshold 13.0-17.0 -[facility] emily 250 DO Work Phone: [phone] 4.68\S\4.68 Normal 3.90-5.60 [facility]Sand[facility] emily 250 DO Work Phone: [phone] 8.9\S\8.9 Normal 4.1-10.5 [facility]-Alisa emily 250 DO Work Phone: [phone] 8.7\S\8.7 Normal 6.0-15.0 [facility]Al[facility] emily 250 DO Work Phone: [phone] 28.0\S\28.0 Normal 21.0-31.0 [facility]Alisa diaz 250 DO Work Phone: [phone] 104\S\104 Normal 98-107 [facility]Al[facility] diaz 250 DO Work Phone: [phone] 4.7\S\4.7 Normal 3.5-5.1 [facility]Al[facility] diaz 250 DO Work Phone: [phone] 136\S\136 Normal 136-145 [facility]Al[facility] diaz 250 DO Work Phone: [phone] 15\S\15 Normal 7-25 [facility] diaz 250 DO Work Phone: > 60.0 Normal [facility]Al[facility] diaz 250 DO Work Phone: [phone] 1.16\S\1.16 Normal 0.70-1.30 [facility]Al[facility] diaz 250 DO Work Phone: 4.3\S\4.3 Normal <5.0 [facility] HeartAmber diaz 250 DO Work Phone: Comment on above: PERFORMED BY:[place] [address] [address] [place], [place] [phone] MEDICAL DIRECTORHAILEY CALDERÓN M.D. 32\S\32 Normal [facility]-Alisa jimenezy 250 DO Work Phone: 164\S\164 above high threshold 0-149 [facility]-Jennyu emily 250 DO Work Phone: [phone] Comment on above: TRIG ATP III CLASSIF ICATION TRIG less than 150 mg/dL Normal TRIG 150-199 mg/dL Borderline high TRIG 200-500 mg/dL High TRIG greater than 500 mg/dL Very high Standard traceable to the Center for Disease Conrtrol and Prevention (CDC) test method. 24\S\24 Normal -[facility]u emily 250 DO Work Phone: Comment on above: HDL CHOL ATP-III CLA SSIFICATION Cardiovascular Risk HDL > or equal to 60 mg/dL LOW HDL < 40 mg/dL HIGH Nucleated erythrocytes [Pres ence] in Blood by Automated countOrdered By: Franck Posey on 11-13-2022 Nucleated RBC Auto Ql (Bld) 0.1 /100{WBC} 0-0.5 [facility] Platelet mean volume Auto (B ld) [Entitic vol]Ordered By: Franck Posey on 11-13-2022 Platelet mean volume (Bld) [Entitic vol] 9.9 fL 6.6-10.1 [facility] Platelets Auto (Bld) [#/Vol] Ordered By: Franck Posey on 11-13-2022 Platelets (Bld) [#/Vol] 183 10*3/uL 150-450 [facility] Potassium [Moles/volume] in Serum or PlasmaOrdered By: Franck Posey on 11-13-2022 Potassium [Moles/Vol] 4.7 mmol/L 3.5-5.1 [facility] RBC Auto (Bld) [#/Vol]Ordere d By: Franck Posey on 11-13-2022 RBC (Bld) [#/Vol] 4.68 10*6/uL 3.90-5.60 [facility] Serum or plasma anion gap de terminationOrdered By: Franck Posey on 11-13-2022 Anion gap [Moles/Vol] 8.7 mmol/L 6.0-15.0 [facility] Serum or plasma high density lipoprotein (HDL) cholesterol measurementOrdered By: Franck Posey on 11-13-2022 Cholesterol in HDL [Mass/Vol] 24 mg/dL [facility] Comment on above: HDL CHOL ATP-III CLA SSIFICATION Cardiovascular RiskHDL > or equal to 60 mg/dL LOWHDL < 40 mg/dL HIGH Serum or plasma total choles terol/high density lipoprotein (HDL) cholesterol mass ratOrdered By: Franck Posey on 11-13-2022 Cholesterol.total/Chol esterol in HDL [Mass ratio] 4.3 {ratio} <5.0 [facility] Sodium [Moles/volume] in Ser um or PlasmaOrdered By: Franck Posey on 11-13-2022 Sodium [Moles/Vol] 136 mmol/L 136-145 [facility] Triglyceride [Mass/volume] i n Serum or PlasmaOrdered By: Franck Posey on 11-13-2022 Triglyceride [Mass/Vol] 164 mg/dL 0-149 [facility] Comment on above: TRIG ATP III CLASSIF ICATIONTRIG less than 150 mg/dL NormalTRIG 150-199 mg/dL Borderline highTRIG 200-500 mg/dL High TRIG greater than 500 mg/dL Very highStandard traceable to the Center for Disease Conrtrol and Prevention (CDC) test method. Urea nitrogen [Mass/volume] in Serum or PlasmaOrdered By: Franck Posey on 11-13-2022 Urea nitrogen [Mass/Vol] 15 mg/dL 10-13 [facility] WBC Auto (Bld) [#/Vol]Ordere d By: Franck Posey on 11-13-2022 WBC (Bld) [#/Vol] 8.9 10*3/uL 4.1-10.5 [facility] Echocardiogramon 10-28-[address], [address] [facility], [place] [address] TRANSTHORACIC ECHOCARDIOGRAM REPORT Patient Name: LESLEY Vann Physician: [id number] Jesus QUINTERO Study Date: 10/28/2022 Referring JESUS POSEY Physician: MRN/PID: [id number] PCP: Lee Segovia Accession/Order#: [id number] Department [facility] Location: [place] Date of : 1955 Fellow: Gender: M Nurse: Romana Jaramillo RN Admit Date: Refrigeration Mechanic: Anisa White RDCS, RVT Height: 175.26 cm CC Report to: Weight: 107.96 kg Study Type: Echocardiogram BSA: 2.22 m2 Blood Pressure: 128 /70 mmHg Diagnosis/ICD: P54-Dpetwnxqz (primary) hypertension; I48.0-Paroxysmal atrial fibrillation; R06.02-Shortness of breath Indication: Sick Sinus Syndrome, Pacemaker, CAD, 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, COPD, Diabetes, Hyperlipidemia, Tobacco Abuse, Dementia, CVA, Ischemic Cardiomyopathy, Obesity, EMIL Procedure/CPT: Echo Complete w Full Doppler-[id number] Study Detail: The following Echo studies were [...] 0.6 m/s (0.6-0.9m/s) PV Max P.2 mmHg [id number] Jesus Fregoso MD Electronically signed on 11/02/2022 at 2:48:52 PM Final Normal [facility] Aspartate Amino Transferaseo n 08-05-2022 AST [Catalytic activity/Vol] 27 U/L Normal [facility] Comment on above: Performed By: #### C REAT, LYTES, CBC, PP, LIPID, BUN #### [facility] [address] Aspartate aminotransferase [ Enzymatic activity/volume] in Serum or PlasmaOrdered By: Franck Posey on 08-05-2022 AST [Catalytic activity/Vol] 27 U/L [facility] Basic Metabolic Panelon 07-20 Anion gap [Moles/Vol] 8.7 mmol/L Normal 6.0-15.0 [facility] Comment on above: Performed By: #### C REAT, LYTES, CBC, PP, LIPID, BUN #### [address] Calcium [Mass/Vol] 8.7 mg/dL Normal 8.6-10.3 [facility] Comment on above: Performed By: #### C REAT, LYTES, CBC, PP, LIPID, BUN #### [address] Chloride [Moles/Vol] 106 mmol/L Normal 98-107 [facility] Comment on above: Performed By: #### C REAT, LYTES, CBC, PP, LIPID, BUN #### [address] CO2 [Moles/Vol] 27.4 mmol/L Normal 21.0-31.0 [facility] Comment on above: Performed By: #### C REAT, LYTES, CBC, PP, LIPID, BUN #### [address] Creatinine [Mass/Vol] 1.08 mg/dL Normal 0.70-1.30 [facility] Comment on above: Performed By: #### C REAT, LYTES, CBC, PP, LIPID, BUN #### [address] [address] [place] GFR/1.73 sq M.predicted MDRD (S/P/Bld) [Vol rate/Area] mL/min/{1.73_m2} Normal [facility] Comment on above: Performed By: #### C REAT, LYTES, CBC, PP, LIPID, BUN #### [facility] [address] [place] [address] [place] Glucose [Mass/Vol] 164 mg/dL High 70-100 [facility] Comment on above: Result Comment: [facility] Glucose Reference Range is dependent on time and content of last meal. Glucose of more than 200 mg/dL in a nonstressed, ambulatory subject supports the diagnosis of Diabetes Mellitus. ADA recommended reference range Performed By: #### C REAT, LYTES, CBC, PP, LIPID, BUN #### [facility] [address] Potassium [Moles/Vol] 5.1 mmol/L Normal 3.5-5.1 [facility] Comment on above: Performed By: #### C REAT, LYTES, CBC, PP, LIPID, BUN #### [facility] [address] [place] [address] [place] Sodium [Moles/Vol] 137 mmol/L Normal 136-145 [facility] Comment on above: Performed By: #### C REAT, LYTES, CBC, PP, LIPID, BUN #### [facility] [address] [place] [address] [place] Urea nitrogen [Mass/Vol] 15 mg/dL Normal 7-25 [facility] Comment on above: Performed By: #### C REAT, LYTES, CBC, PP, LIPID, BUN #### [facility] [address] [place] [address] [place] Calcium [Mass/volume] in Ser um or PlasmaOrdered By: Franck Posey on 08-05-2022 Calcium [Mass/Vol] 8.7 mg/dL 8.6-10.3 [facility] Carbon dioxide, total [Moles /volume] in Serum or PlasmaOrdered By: Franck Posey on 08-05-2022 CO2 [Moles/Vol] 27.4 mmol/L 21.0-31.0 [facility] Chloride [Moles/volume] in S radha or PlasmaOrdered By: Franck Posey on 08-05-2022 Chloride [Moles/Vol] 106 mmol/L 98-107 [facility] Creatinine [Mass/volume] in Serum or PlasmaOrdered By: Franck Posey on 08-05-2022 Creatinine [Mass/Vol] 1.08 mg/dL 0.70-1.30 [facility] Glucose [Mass/volume] in Ser um or PlasmaOrdered By: Franck Posey on 08-05-2022 Glucose [Mass/Vol] 164 mg/dL 70-100 [facility] Comment on above: ADA recommended refe rence rangeRandom Glucose Reference Range is dependent on time and content of last meal. Glucose of more than 200 mg/dL in a nonstressed, ambulatory subject supports the diagnosis of Diabetes Mellitus. No Panel InformationOrdered By: Franck Posey on 08-05-2022 Estimated GFR (CKD-EPI) > 60.0 mL/Min [facility] Creatinine Clearance (Chem N/A [facility] No Panel Informationon 08-05 > 60.0 Normal [facility] Work Phone: 8.7\S\8.7 Normal 8.6-10.3 [facility] Work Phone: [phone] 27.4\S\27.4 Normal 21.0-31.0 [facility] Work Phone: [phone]\S\106 Normal 98-107 [facility] Work Phone: [phone] 5.1\S\5.1 Normal 3.5-5.1 [facility] Work Phone: [phone]\S\137 Normal 136-145 [facility] Work Phone: [phone] 1.08\S\1.08 Normal 0.70-1.30 [facility] Work Phone: [phone] 15\S\15 Normal 7-25 [facility] Work Phone: [phone]\S\164 above high threshold 70-100 [facility] Work Phone: Comment on above: Random Glucose Refer ence Range is dependent on time and content of last meal. Glucose of more than 200 mg/dL in a nonstressed, ambulatory subject supports the diagnosis of Diabetes Mellitus. ADA recommended reference range 27\S\27 Normal 13-39 [facility] Work Phone: 3.86\S\3.86 Normal 0.45-5.33 [facility] Work Phone: Comment on above: PERFORMED BY:[facility] [place], [place] [id number] MEDICAL DIRECTORHAILEY CALDERÓN M.D. Potassium [Moles/volume] in Serum or PlasmaOrdered By: Franck Posey on 08-05-2022 Potassium [Moles/Vol] 5.1 mmol/L 3.5-5.1 [facility] Radiologyon 08-05-2022 XR Chest 2 Views Normal [facility] Work Phone: Serum or plasma anion gap de terminationOrdered By: Franck Posey on 08-05-2022 Anion gap [Moles/Vol] 8.7 mmol/L 6.0-15.0 [facility] Sodium [Moles/volume] in Ser um or PlasmaOrdered By: Franck Posey on 08-05-2022 Sodium [Moles/Vol] 137 mmol/L 136-145 [facility] Thyroid Stimulating Hormoneo n 08-05-2022 TSH Qn 3.86 m[IU]/L Normal 0.45-5.33 [facility] Comment on above: Result Comment: PERF ORMED BY: [facility] [address] [place] [address] PATHOLOGIST STRIP WINDER HAILEY CALDERÓN M.D. Performed By: #### C REAT, LYTES, CBC, PP, LIPID, BUN #### [facility] [address] [place] [address] [facility] Thyrotropin [Units/volume] i n Serum or PlasmaOrdered By: Franck Posey on 08-05-2022 TSH Qn 3.86 m[IU]/L 0.45-5.33 [facility] Urea nitrogen [Mass/volume] in Serum or PlasmaOrdered By: Franck Posey on 08-05-2022 Urea nitrogen [Mass/Vol] 15 mg/dL 10-13 [facility] XR chest 2V*on 08-05-2022 XR chest 2V* [facility] Main [place] [address] [place], [place] [id number] XRay Report Signed Patient: Lesley Quintero MR#: [id number] : 1955 Acct:[id number] Age/Sex: 67 / M ADM Date: 08/05/22 Loc: RT Room: Type: [facility] Attending Dr: Franck Posey DO Copies to: [...] ABNORMALITY. Impression dictated by: Faustino Neal Jr., D.O.08/05/2022 2:27 PM Dictation Location: [place] [address] Transcribed By: [facility] 08/05/22 142 Dictated By: Faustino Neal Jr, DO 08/05/22 142 Signed By: 08/05/22 142 Normal [facility] Office Visit (Cardiology)on 07-14-2022 Follow-up visit Diagnoses/Problems Assessed Dementia (294.20) (F03.90) Diabetes mellitus (250.00) (E11.9) Paroxysmal atrial fibrillation (427.31) (I48.0) Atherosclerosis of coronary artery of 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 pectoris (414.01) (I25.10) H/O [...] daily Orders Atherosclerosis of coronary artery of 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 pectoris Renew: Aspirin EC 81 MG Oral Tablet Delayed Release; TAKE 1 TABLET DAILY Atherosclerosis of coronary artery of 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 pectoris, Diabetes mellitus, Hypertension, Ischemic cardiomyopathy, Shortness of breath Basic Metabolic Panel; Status:Active - Retrospective Authorization; Requested for:[id number]; Atherosclerosis of coronary artery of 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 pectoris, Hyperlipidemia Renew: Atorvastatin Calcium 80 MG Oral Tablet; TAKE 1 TABLET AT BEDTIME Class 2 obesity with body mass index (BMI) of 35.0 to 35.9 in adult Healthy Weight Tips; Status:Complete - Retrospective Authorization; Done: [id number] Some eating tips that can help you lose weight.; Status:Complete - Retrospective Authorization; Done: [id number] Hypertension, Ischemic cardiomyopathy Renew: Losartan Potassium 25 MG Oral Tablet; TAKE 1 TABLET DAILY Hypertension, Ischemic cardiomyopathy, Shortness of breath Renew: Spironolactone 25 MG Oral Tablet; TAKE 1 TABLET DAILY Hypertension, Paroxysmal atrial fibrillation, Shortness of breath Echocardiogram; Status:Hold For - Scheduling,Retrospective Authorization; Requested for:[id number]; Paroxysmal atrial fibrillation Renew: Amiodarone HCl - 200 MG Oral Tablet; Take 1 tablet daily IO EKG Electrocardiogram- 12 Lead; Status:Complete; Done: [id number] SocHx: Current every day smoker Tobacco Use Screening; Status:Complete; Done: [id number] Patient Instructions Please bring all medicines, vitamins, [...] 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 Patient is a 67-year-old gentleman returns for follow-up with significant shortness of breath and exertional dyspnea that is noted on today's inspection and examination. His is even complaining about this. He has no angina. He has no hospitalizations or nitrate usage. He has known ASHD, remote RI, history of multivessel CABG x4 in 2018, [...] MG TABSTAKE 1 TABLET DAILY DIRECTED BY [facility] Famotidine 20 MG Oral TabletTAKE 1 TABLET EVERY (more content not included)... Normal [facility] Tobacco Screening.on 023 Adult depression screening assessment No -[facility]-Sandu emily 250 DO Work Phone: Fall risk assessment a) No falls within the last year -[facility]-Kira Talentu emily 250 DO Work Phone: Tobacco use status CP a) Yes -[facility] HeartTap[facility] Systemsu emily 250 DO Work Phone: Tobacco Screening. Yes -[facility]Kira Talentu emily 250 DO Work Phone: CBC AUTO DIFFon 07-08-2022 BASO # 0.1 103/ul Normal 0.0-0.1 [facility] Comment on above: Performed By: #### B MP, TSH #### [facility] [address] [place] [address] Dr. Paola Bradshaw Basophils/100 WBC (Bld) 0.7 % Normal 0.2-2.0 [facility] Comment on above: Performed By: #### B MP, TSH #### [facility] [address] [place] [address] [address] Paola Bradshaw EO # 0.5 103/ul Normal 0.0-0.7 [facility] Comment on above: Performed By: #### B MP, TSH #### [facility] [address] [place] [address] [address] Paola Bradshaw Eosinophils/100 WBC (Bld) 7.3 % Critically high 0.9-7.0 [facility] Comment on above: Performed By: #### B MP, TSH #### [facility] [address] [place] [address] [address] Paola Bradshaw Erythrocyte distribution width (RBC) [Ratio] 18.6 % Critically high 11.0-15.0 [facility] Comment on above: Performed By: #### B MP, TSH #### [facility] [address] [place] [address] Dr. Paola Bradshaw Hematocrit (Bld) [Volume fraction] 41.1 % Critically low 42.0-54.0 [facility] Comment on above: Performed By: #### B MP, TSH #### [facility] [address] [place] [address] Dr. Paola Bradshaw Hemoglobin (Bld) [Mass/Vol] 12.7 g/dL Critically low 14.0-18.0 [facility] Comment on above: Performed By: #### B MP, TSH #### [facility] [address] [place] [address] Dr. Paola Bradshaw IG # 0.02 10e3/ul Normal 0.00-0.03 [facility] Comment on above: Performed By: #### B MP, TSH #### [facility] [address] [place] [address] Dr. Paola Bradshaw IG % 0.3 % Normal 0.0-0.5 [facility] Comment on above: Performed By: #### B MP, TSH #### [facility] [address] [place] [address] Dr. Paola Bradshaw LYMPH # 2.8 103/ul Normal 1.2-3.8 [facility] Comment on above: Performed By: #### B MP, TSH #### [facility] [address] [place] [address] Dr. Paola Bradshaw Lymphocytes/100 WBC (Bld) 39.5 % Normal 20.5-60.0 [facility] Comment on above: Performed By: #### B MP, TSH #### [facility] [address] [place] [address] Dr. Paola Bradshaw MANUAL DIFF REQ NO Normal [facility] Comment on above: Performed By: #### B MP, TSH #### [facility] [address] [place] [address] Dr. Paola Bradshaw MCH (RBC) [Entitic mass] 25.7 pg Critically low 25.9-34.0 [facility] Comment on above: Performed By: #### B MP, TSH #### [facility] [address] [place] [address] Dr. Paola Bradshaw MCHC (RBC) [Mass/Vol] 30.9 g/dL Normal 29.9-35.2 [facility] Comment on above: Performed By: #### B MP, TSH #### [facility] [address] [place] [address] Dr. Paola Bradshaw MCV (RBC) [Entitic vol] 83.0 fL Normal 80.0-94.0 [facility] Comment on above: Performed By: #### B MP, TSH #### [facility] [address] [place] [address] Dr. Paola Bradshaw MONO # 0.7 103/ul Normal 0.3-0.8 [facility] Comment on above: Performed By: #### B MP, TSH #### [facility] [address] [place] [address] Dr. Paola Bradshaw Monocytes/100 WBC (Bld) 10.1 % Normal 1.7-12.0 [facility] Comment on above: Performed By: #### B MP, TSH #### [facility] [address] [place] [address] Dr. Paola Bradshaw NEUT # 3.0 103/ul Normal 1.4-6.5 [facility] Comment on above: Performed By: #### B MP, TSH #### [facility] [address] [place] [address] Dr. Paola Bradshaw Neutrophils/100 WBC (Bld) 42.1 % Critically low 43.0-75.0 [facility] Comment on above: Performed By: #### B MP, TSH #### [facility] [address] [place] [address] Dr. Paola Bradshaw Platelet mean volume (Bld) [Entitic vol] 11.4 fL Normal 9.5-13.5 [facility] Comment on above: Performed By: #### B MP, TSH #### [facility] [address] [place] [address] Dr. Paola Bradshaw PLT 229 103/ul Normal 150-450 [facility] Comment on above: Performed By: #### B MP, TSH #### [facility] [address] [place] [address] Dr. Paola Bradshaw RBC 4.95 106/ul Normal 4.70-6.10 [facility] Comment on above: Performed By: #### B MP, TSH #### [facility] [address] [place] [address] Dr. Paola Bradshaw WBC 7.1 103/ul Normal 4.0-11.0 [facility] Comment on above: Performed By: #### B MP, TSH #### [facility] [address] [place] [address] Dr. Paola Bradshaw GLYCOHEMOGLOBIN A1Con 2022 ADA RECOMMENDATION SEE BELOW Normal [facility] Comment on above: Result Comment: ADA RECOMMENDED LIMIT 4.0 - 6.0 ADA THERAPEUTIC TARGET < 7.0 ACTION SUGGESTED > 7.0 Performed By: #### A 1C #### [facility] [address] [place] [address] Dr. Paola Bradshaw Glucose [Mass/Vol] 197 mg/dL Normal [facility] Comment on above: Performed By: #### A 1C #### [facility] [address] [place] [address] Dr. Paola Bradshaw HbA1c (Bld) [Mass fraction] 8.5 % Critically high 4.5-6.2 [facility] Comment on above: Performed By: #### A 1C #### [facility] [address] [place] [address] Dr. Paola Bradshaw LIPID PROFILEon 07-08-2022 CHOL-HDL RATIO NORM SEE BELOW Normal [facility] Comment on above: Result Comment: 3.3 - 4.4 LOW RISK 4.4 - 7.1 AVERAGE RISK 7.1 - 11.0 MODERATE RISK >11.0 HIGH RISK Performed By: #### L IPID, BMP, ALT #### [facility] [address] [place] [address] Dr. Paola Bradshaw Cholesterol [Mass/Vol] 89 mg/dL Normal <=200 Th [facility] Comment on above: Performed By: #### L IPID, BMP, ALT #### [facility] [address] [place] [address] Dr. Paola Bradshaw Cholesterol in HDL [Mass/Vol] 26 mg/dL Critically low 40-60 [facility] Comment on above: Performed By: #### L IPID, BMP, ALT #### [facility] [address] [place] [address] Dr. Paola Bradshaw Cholesterol in LDL [Mass/Vol] 36.0 mg/dL Normal [facility] Comment on above: Performed By: #### L IPID, BMP, ALT #### [facility] [address] [place] [address] [address] Paola Bradshaw Cholesterol.total/Chol esterol in HDL [Mass ratio] 3.4 {ratio} Normal [facility] Comment on above: Performed By: #### L IPID, BMP, ALT #### [facility] [address] [place] [address] [address] Paola Bradshaw HDL NORMAL > or = 60 mg/dl - LO W CARDIOVASCULAR RISK <40 mg/dl - HIGH CARDIOVASCULAR RISK Normal [facility] Comment on above: Performed By: #### L IPID, BMP, ALT #### [facility] [address] [place] [address] Dr. Paola Bradshaw LDL CALC NORMAL SEE BELOW Normal [facility] Comment on above: Result Comment: <100 mg/dl OPTIMAL 100 - 129 mg/dl NEAR OR ABOVE OPTIMAL 130 - 159 mg/dl BORDERLINE HIGH 160 - 189 mg/dl HIGH >190 mg/dl VERY HIGH Performed By: #### L IPID, BMP, ALT #### [facility] [address] [place] [address] [address] Paola Bradshaw Triglyceride [Mass/Vol] 135 mg/dL Normal <=150 [facility] Comment on above: Performed By: #### L IPID, BMP, ALT #### [facility] [address] [place] [address] [address] Paola Bradshaw VLDL CALC 27.0 mg/dL Normal [facility] Comment on above: Performed By: #### L IPID, BMP, ALT #### [facility] [address] [place] [address] [address] Paola Bradshaw MICROALBUMIN, RAND URon 04- mALB 7.4 mg/L Normal <=30.0 [facility] Comment on above: Performed By: #### B MP, TSH #### [facility] [address] [place] [address] [address] Paola Bradshaw PROF CHEM 8 (BAS METB)on Anion gap [Moles/Vol] 12.0 mmol/L Normal [facility] Comment on above: Performed By: #### L IPID, BMP, ALT #### [facility] [address] [place] [address] Dr. Paola Bradshaw Calcium [Mass/Vol] 8.4 mg/dL Critically low 8.5-10.1 [facility] Comment on above: Performed By: #### L IPID, BMP, ALT #### [facility] [address] [place] [address] Dr. Paola Bradshaw Chloride [Moles/Vol] 106 mmol/L Normal 98-107 [facility] Comment on above: Performed By: #### L IPID, BMP, ALT #### [facility] [address] [place] [address] Dr. Paola Bradshaw CO2 [Moles/Vol] 27.5 mmol/L Normal 21.0-32.0 [facility] Comment on above: Performed By: #### L IPID, BMP, ALT #### [facility] [address] [place] [address] Dr. Paola Bradshaw Creatinine [Mass/Vol] 1.11 mg/dL Normal 0.70-1.30 [facility] Comment on above: Performed By: #### L IPID, BMP, ALT #### [facility] [address] [place] [address] Dr. Paola Bradshaw EGFR-AF VIETNAMESE >60 Normal >=60 [facility] Comment on above: Performed By: #### L IPID, BMP, ALT #### [facility] [address] [place] [address] Dr. Paola Bradshaw EGFR-NON AF VIETNAMESE >60 Normal >=60 [facility] Comment on above: Performed By: #### L IPID, BMP, ALT #### [facility] [address] [place] [address] Dr. Paola Bradshaw Glucose [Mass/Vol] 172 mg/dL Critically high 74-[address] [facility] Comment on above: Performed By: #### L IPID, BMP, ALT #### [facility] [address] [place] [address] Dr. Paola Bradshaw Potassium [Moles/Vol] 4.5 mmol/L Normal 3.5-5.1 [facility] Comment on above: Performed By: #### L IPID, BMP, ALT #### [facility] [address] [place] [address] [address] Paola Bradshaw Sodium [Moles/Vol] 141 mmol/L Normal 136-145 [facility] Comment on above: Performed By: #### L IPID, BMP, ALT #### [facility] [address] [address] [address] Paola Bradshaw Urea nitrogen [Mass/Vol] 11.0 mg/dL Normal 7.0-18.0 [facility] Comment on above: Performed By: #### L IPID, BMP, ALT #### [facility] [address] [address] [address] Paola Bradshaw Urea nitrogen/Creatinine [Mass ratio] 9.9 mg/mg Normal [facility] Comment on above: Performed By: #### L IPID, BMP, ALT #### [facility] [address] [address] [address] Paola Bradshaw SGPTon 07-08-2022 ALT [Catalytic activity/Vol] 52 U/L Normal 16-63 [facility] Comment on above: Performed By: #### L IPID, BMP, ALT #### [facility] [address] [place] [address] [address] Paola Bradshaw Falls Screening (Age 18+)on 05-13-2022 Fall risk assessment a) [facility] falls [facility] the [facility] year [facility] Work Phone: LEVETIRACETAM, SERUM OR PLAS MAon 04-07-2022 Levetiracetam, S 18.2 ug/mL Normal 10.0-40.0 [facility] Comment on above: Performed By: #### K EPPRA #### [facility] [address] [place] [address] [address] Paola Bradshaw GLYCOHEMOGLOBIN A1Con 2022 ADA RECOMMENDATION SEE BELOW Normal [facility] Comment on above: Result Comment: ADA RECOMMENDED LIMIT 4.0 - 6.0 ADA THERAPEUTIC TARGET < 7.0 ACTION SUGGESTED > 7.0 Performed By: #### A 1C #### [facility] [id number] Paola Bradshaw Glucose [Mass/Vol] 286 mg/dL Normal [facility] Comment on above: Performed By: #### A 1C #### [facility] [id number] Paola Bradshaw HbA1c (Bld) [Mass fraction] 11.6 % Critically high 4.5-6.2 [facility] Comment on above: Performed By: #### A 1C #### [facility] [address] [address] [address] Paola Bradshaw Creatinine and Glomerular fi ltration rate.predicted panel (S/P/Bld)Ordered By: Franck Posey on 02-04-2022 Creatinine [Mass/Vol] 0.95 mg/dL 0.64-1.27 [facility] Estimated glomerular filtrat ion rate (GFR) non- AmericanOrdered By: Franck Posey on 02-04-2022 GFR/1.73 sq M.predicted among non-blacks MDRD (S/P/Bld) [Vol rate/Area] > 60 mL/Min [facility] No Panel InformationOrdered By: Franck Posey on 02-04-2022 Estimated GFR () > 60 mL/Min [facility] Comment on above: GFR estimated refere nce range: According to KDOQI guidelines, <60 ml/min/1.73m2 is sufficient to diagnose a patient with chronic kidney disease. Pharmacy Creatinine Clearance (Chem N/A [facility] No Panel Informationon 02-04 6.7\S\6.7 Normal 6.0-15.0 [facility] CenterShop[facility] emily 250 DO Work Phone: 9.0\S\9.0 Normal 8.2-10.2 [facility] emily 250 DO Work Phone: 28.0\S\28.0 Normal 22.0-30.0 [facility] DO Work Phone: 105\S\105 Normal 95-114 [facility] Ashley diaz 250 DO Work Phone: 4.7\S\4.7 Normal 3.5-5.1 [facility] Ashley diaz 250 DO Work Phone: 135\S\135 below low threshold 136-146 [facility] Ashley diaz 250 DO Work Phone: > 60 Normal [facility] Ashley diaz 250 DO Work Phone: Comment on above: GFR estimated refere nce range: According to KDOQI guidelines, <60 ml/min/1.73m2 is sufficient to diagnose a patient with chronic kidney disease. 0.95\S\0.95 Normal 0.64-1.27 [facility] Ashley diaz 250 DO Work Phone: 11\S\11 Normal 9-23 [facility] Ashley diaz 250 DO Work Phone: 238\S\238 above high threshold 70-100 [facility] Ashley diaz 250 DO Work Phone: Comment on above: Random Glucose Refer ence Range is dependent on time and content of last meal. Glucose of more than 200 mg/dL in a nonstressed, ambulatory subject supports the diagnosis of Diabetes Mellitus. ADA recommended reference range 23\S\23 Normal 10-42 [facility] Ashley diaz 250 DO Work Phone: 2.80\S\2.80 Normal 0.45-5.33 [facility] Ashley diaz 250 DO Work Phone: Comment on above: PERFORMED BY:[address] [address] [place], [place] [id number] MEDICAL DIRECTORHAILEY CALDERÓN M.D. Radiologyon 02-04-2022 XR Chest 2 Views Normal [facility] Ashley diaz 250 DO Work Phone: Serum or plasma anion gap de terminationOrdered By: Franck Posey on 02-04-2022 Anion gap [Moles/Vol] 6.7 mmol/L 6.0-15.0 [facility] Serum or plasma aspartate am inotransferase measurement (enzymatic activity/volume)Ordered By: Franck Posey on 02-04-2022 AST [Catalytic activity/Vol] 23 U/L 10-42 [facility] Serum or plasma calcium daria urement (mass/volume)Ordered By: Franck Posey on 02-04-2022 Calcium [Mass/Vol] 9.0 mg/dL 8.2-10.2 [facility] Serum or plasma chloride gisselle surement (moles/volume)Ordered By: Franck Posey on 02-04-2022 Chloride [Moles/Vol] 105 mmol/L 95-114 [facility] Serum or plasma glucose daria urement (mass/volume)Ordered By: Franck Posey on 02-04-2022 Glucose [Mass/Vol] 238 mg/dL 70-100 [facility] Comment on above: ADA recommended refe rence rangeRandom Glucose Reference Range is dependent on time and content of last meal. Glucose of more than 200 mg/dL in a nonstressed, ambulatory subject supports the diagnosis of Diabetes Mellitus. Serum or plasma potassium me asurement (moles/volume)Ordered By: Franck Posey on 02-04-2022 Potassium [Moles/Vol] 4.7 mmol/L 3.5-5.1 [facility] Serum or plasma sodium measu rement (moles/volume)Ordered By: Franck Posey on 02-04-2022 Sodium [Moles/Vol] 135 mmol/L 136-146 [facility] Serum or plasma total carbon dioxide measurement (moles/volume)Ordered By: Franck Posey on 02-04-2022 CO2 [Moles/Vol] 28.0 mmol/L 22.0-30.0 [facility] Serum or plasma urea nitroge n measurement (mass/volume)Ordered By: Franck Posey on 02-04-2022 Urea nitrogen [Mass/Vol] 11 mg/dL 9-23 [facility] TSH DL <= 0.005 mIU/L QnOrde red By: Franck Posey on 02-04-2022 TSH Qn 2.80 m[IU]/L 0.45-5.33 [facility] BNPon 11-14-2021 Natriuretic peptide B (Bld) [Mass/Vol] 703.0 pg/mL Normal <=900.0 [facility] Comment on above: Performed By: #### B MP, TSH #### [facility] [address] [place] [address] Dr. Paola Bradshaw PROF CHEM 8 (BAS METB)on Anion gap [Moles/Vol] 11.1 mmol/L Normal [facility] Comment on above: Performed By: #### B MODESTA, TSH #### [facility] [address] [place] [address] Dr. Paola Bradshaw Calcium [Mass/Vol] 8.2 mg/dL Critically low 8.5-10.1 [facility] Comment on above: Performed By: #### B MODESTA, TSH #### [facility] [address] [place] [address] Dr. Paola Bradshaw Chloride [Moles/Vol] 103 mmol/L Normal 98-107 [facility] Comment on above: Performed By: #### B MODESTA, TSH #### [facility] [address] [place] [address] Dr. Paola Bradshaw CO2 [Moles/Vol] 25.3 mmol/L Normal 21.0-32.0 [facility] Comment on above: Performed By: #### B MODESTA, TSH #### [facility] [address] [place] [address] Dr. Paola Bradshaw Creatinine [Mass/Vol] 1.08 mg/dL Normal 0.70-1.30 [facility] Comment on above: Performed By: #### B MP, TSH #### [facility] [address] [place] [address] Dr. Paola Bradshaw EGFR-AF VIETNAMESE >60 Normal >=60 [facility] Comment on above: Performed By: #### B MP, TSH #### [facility] [address] [place] [address] Dr. Paola Bradshaw EGFR-NON AF VIETNAMESE >60 Normal >=60 [facility] Comment on above: Performed By: #### B MODESTA, TSH #### [facility] [address] [address] [address] Paola Bradshaw Glucose [Mass/Vol] 255 mg/dL Critically high 74-[address] [facility] Comment on above: Performed By: #### B MODESTA, TSH #### [facility] [address] [address] [address] Paola Bradshaw Potassium [Moles/Vol] 4.4 mmol/L Normal 3.5-5.1 [facility] Comment on above: Performed By: #### B MODESTA, TSH #### [facility] [address] [place] [address] Dr. Paola Bradshaw Sodium [Moles/Vol] 135 mmol/L Critically low 136-145 [facility] Comment on above: Performed By: #### B MODESTA, TSH #### [facility] [address] [place] [address] Dr. Paola Bradshaw Urea nitrogen [Mass/Vol] 12.0 mg/dL Normal 7.0-18.0 [facility] Comment on above: Performed By: #### B MODESTA, TSH #### [facility] [address] [place] [address] Dr. Paola Bradshaw Urea nitrogen/Creatinine [Mass ratio] 11.1 mg/mg Normal [facility] Comment on above: Performed By: #### B MODESTA, TSH #### [facility] [address] [place] [address] Dr. Paola Bradshaw XR CHEST 2 Von [...] chronic interstitial changes. Electronically authenticated by: GINO GARZAEBER Date: 2021-11-14 16:58 Normal [facility] CBC AUTO DIFFon 10-21-2021 BASO # 0.1 103/ul Normal 0.0-0.1 [facility] Comment on above: Performed By: #### B MP, TSH #### [facility] [address] [address] [address] Paola Bradshaw Basophils/100 WBC (Bld) 0.6 % Normal 0.2-2.0 [facility] Comment on above: Performed By: #### B MP, TSH #### [facility] [address] [address] [address] Paola Bradshaw EO # 0.4 103/ul Normal 0.0-0.7 [facility] Comment on above: Performed By: #### B MP, TSH #### [facility] [address] [place] [address] Dr. Paola Bradshaw Eosinophils/100 WBC (Bld) 4.2 % Normal 0.9-7.0 [facility] Comment on above: Performed By: #### B MP, TSH #### [facility] [address] [address] [address] Paola Bradshaw Erythrocyte distribution width (RBC) [Ratio] 16.4 % Critically high 11.0-15.0 [facility] Comment on above: Performed By: #### B MP, TSH #### [facility] [address] [address] [address] Paola Bradshaw Hematocrit (Bld) [Volume fraction] 39.7 % Critically low 42.0-54.0 [facility] Comment on above: Performed By: #### B MP, TSH #### [facility] [address] [address] [address] Paola Bradshaw Hemoglobin (Bld) [Mass/Vol] 12.6 g/dL Critically low 14.0-18.0 [facility] Comment on above: Performed By: #### B MP, TSH #### [facility] [address] [place] [address] Dr. Paola Bradshaw IG # 0.04 10e3/ul Critically high 0.00-0.03 [facility] Comment on above: Performed By: #### B MP, TSH #### [facility] [address] [place] [address] Dr. Paola Bradshaw IG % 0.5 % Normal 0.0-0.5 [facility] Comment on above: Performed By: #### B MP, TSH #### [facility] [address] [place] [address] Dr. Paola Bradshaw LYMPH # 2.5 103/ul Normal 1.2-3.8 [facility] Comment on above: Performed By: #### B MP, TSH #### [facility] [address] [place] [address] Dr. Paola Bradshaw Lymphocytes/100 WBC (Bld) 29.2 % Normal 20.5-60.0 [facility] Comment on above: Performed By: #### B MP, TSH #### [facility] [address] [place] [address] Dr. Paola Bradshaw MANUAL DIFF REQ NO Normal [facility] Comment on above: Performed By: #### B MP, TSH #### [facility] [address] [place] [address] Dr. Paola Bradshaw MCH (RBC) [Entitic mass] 27.3 pg Normal 25.9-34.0 [facility] Comment on above: Performed By: #### B MP, TSH #### [facility] [address] [place] [address] Dr. Paola Bradshaw MCHC (RBC) [Mass/Vol] 31.7 g/dL Normal 29.9-35.2 [facility] Comment on above: Performed By: #### B MP, TSH #### [facility] [address] [place] [address] Dr. Paola Bradshaw MCV (RBC) [Entitic vol] 86.1 fL Normal 80.0-94.0 [facility] Comment on above: Performed By: #### B MP, TSH #### [facility] [address] [place] [address] Dr. Paola Bradshaw MONO # 0.8 103/ul Normal 0.3-0.8 [facility] Comment on above: Performed By: #### B MP, TSH #### [facility] [address] [place] [address] Dr. Paola Bradshaw Monocytes/100 WBC (Bld) 9.8 % Normal 1.7-12.0 [facility] Comment on above: Performed By: #### B MP, TSH #### [facility] [address] [place] [address] Dr. Paola Bradshaw NEUT # 4.8 103/ul Normal 1.4-6.5 [facility] Comment on above: Performed By: #### B MP, TSH #### [facility] [address] [place] [address] Dr. Paola Bradshaw Neutrophils/100 WBC (Bld) 55.7 % Normal 43.0-75.0 [facility] Comment on above: Performed By: #### B MP, TSH #### [facility] [address] [place] [address] Dr. Paola Bradshaw Platelet mean volume (Bld) [Entitic vol] 11.4 fL Normal 9.5-13.5 [facility] Comment on above: Performed By: #### B MP, TSH #### [facility] [address] [place] [address] Dr. Paola Bradshaw PLT 218 103/ul Normal 150-450 [facility] Comment on above: Performed By: #### B MP, TSH #### [facility] [address] [place] [address] Dr. Paola Bradshaw RBC 4.61 106/ul Critically low 4.70-6.10 [facility] Comment on above: Performed By: #### B MP, TSH #### [facility] [address] [place] [address] Dr. Paola Bradshaw WBC 8.5 103/ul Normal 4.0-11.0 [facility] Comment on above: Performed By: #### B MP, TSH #### [facility] [address] [place] [address] Dr. Paola Bradshaw CRPon 10-21-2021 CRP 0.4 mg/dL Normal <=1.0 [facility] Comment on above: Performed By: #### B MP, TSH #### [facility] [address] [place] [address] Dr. Paola Bradshaw SED RATE WESTERGRENon 2021 SED RATE 33 mm/hr Critically high <=20 [facility] Comment on above: Performed By: #### B MP, TSH #### [facility] [address] [place] [address] Dr. Paola Bradshaw CBC AUTO DIFFon 10-08-2021 BASO # 0.1 103/ul Normal 0.0-0.1 [facility] Comment on above: Performed By: #### B MODESTA, TSH #### [facility] [address] [place] [address] Dr. Paola Bradshaw Basophils/100 WBC (Bld) 0.5 % Normal 0.2-2.0 [facility] Comment on above: Performed By: #### B MODESTA, TSH #### [facility] [address] [place] [address] Dr. Paola Bradshaw EO # 0.4 103/ul Normal 0.0-0.7 [facility] Comment on above: Performed By: #### B MODESTA, TSH #### [facility] [address] [place] [address] Dr. Paola Bradshaw Eosinophils/100 WBC (Bld) 4.2 % Normal 0.9-7.0 [facility] Comment on above: Performed By: #### B MODESTA, TSH #### [facility] [address] [place] [address] Dr. Paola Bradshaw Erythrocyte distribution width (RBC) [Ratio] 16.4 % Critically high 11.0-15.0 [facility] Comment on above: Performed By: #### B MODESTA, TSH #### [facility] [address] [place] [address] Dr. Paola Bradshaw Hematocrit (Bld) [Volume fraction] 44.3 % Normal 42.0-54.0 [facility] Comment on above: Performed By: #### B MODESTA, TSH #### [facility] [address] [address] [address] Paola Bradshaw Hemoglobin (Bld) [Mass/Vol] 14.0 g/dL Normal 14.0-18.0 [facility] Comment on above: Performed By: #### B MP, TSH #### [facility] [address] [address] [address] Paola Bradshaw IG # 0.04 10e3/ul Critically high 0.00-0.03 [facility] Comment on above: Performed By: #### B MP, TSH #### [facility] [address] [place] [address] Dr. Paola Bradshaw IG % 0.4 % Normal 0.0-0.5 [facility] Comment on above: Performed By: #### B MODESTA, TSH #### [facility] [address] [place] [address] Dr. Paola Bradshaw LYMPH # 3.0 103/ul Normal 1.2-3.8 [facility] Comment on above: Performed By: #### B MP, TSH #### [facility] [address] [place] [address] Dr. Paola Bradshaw Lymphocytes/100 WBC (Bld) 31.6 % Normal 20.5-60.0 [facility] Comment on above: Performed By: #### B MP, TSH #### [facility] [address] [place] [address] Dr. Paola Bradshaw MANUAL DIFF REQ NO Normal [facility] Comment on above: Performed By: #### B MODESTA, TSH #### [facility] [address] [place] [address] Dr. Paola Bradshaw MCH (RBC) [Entitic mass] 27.2 pg Normal 25.9-34.0 [facility] Comment on above: Performed By: #### B MP, TSH #### [facility] [address] [place] [address] Dr. Paola Bradshaw MCHC (RBC) [Mass/Vol] 31.6 g/dL Normal 29.9-35.2 [facility] Comment on above: Performed By: #### B MP, TSH #### [facility] [address] [place] [address] Dr. Poala Bradshaw MCV (RBC) [Entitic vol] 86.2 fL Normal 80.0-94.0 [facility] Comment on above: Performed By: #### B MP, TSH #### [facility] [address] [place] [address] Dr. Paola Bradshaw MONO # 0.7 103/ul Normal 0.3-0.8 [facility] Comment on above: Performed By: #### B MP, TSH #### [facility] [address] [place] [address] Dr. Paola Bradshaw Monocytes/100 WBC (Bld) 7.6 % Normal 1.7-12.0 [facility] Comment on above: Performed By: #### B MP, TSH #### [facility] [address] [place] [address] Dr. Paola Bradshaw NEUT # 5.3 103/ul Normal 1.4-6.5 [facility] Comment on above: Performed By: #### B MP, TSH #### [facility] [address] [place] [address] Dr. Paola Bradshaw Neutrophils/100 WBC (Bld) 55.7 % Normal 43.0-75.0 [facility] Comment on above: Performed By: #### B MP, TSH #### [facility] [address] [place] [address] Dr. Paola Bradshaw Platelet mean volume (Bld) [Entitic vol] 12.2 fL Normal 9.5-13.5 [facility] Comment on above: Performed By: #### B MP, TSH #### [facility] [address] [place] [address] Dr. Paola Bradshaw PLT 195 103/ul Normal 150-450 [facility] Comment on above: Performed By: #### B MP, TSH #### [facility] [address] [place] [address] Dr. Paola Bradshaw RBC 5.14 106/ul Normal 4.70-6.10 [facility] Comment on above: Performed By: #### B MP, TSH #### [facility] [address] [address] [address] Paola Bradshaw WBC 9.6 103/ul Normal 4.0-11.0 [facility] Comment on above: Performed By: #### B MP, TSH #### [facility] [address] [address] [address] Paola Bradshaw GLYCOHEMOGLOBIN A1Con 2021 ADA RECOMMENDATION SEE BELOW Normal [facility] Comment on above: Result Comment: ADA RECOMMENDED LIMIT 4.0 - 6.0 ADA THERAPEUTIC TARGET < 7.0 ACTION SUGGESTED > 7.0 Performed By: #### B MP, TSH #### [facility] [address] [address] [address] Paola Bradshaw Glucose [Mass/Vol] 203 mg/dL Normal [facility] Comment on above: Performed By: #### B MP, TSH #### [facility] [address] [place] [address] Dr. Paola Bradshaw HbA1c (Bld) [Mass fraction] 8.7 % Critically high 4.5-6.2 [facility] Comment on above: Performed By: #### B MP, TSH #### [facility] [address] [place] [address] Dr. Paola Bradshaw MICROALBUMIN, RAND URon 07- mALB 5.9 mg/L Normal <=30.0 [facility] Comment on above: Performed By: #### B MP, TSH #### [facility] [address] [place] [address] Dr. Paola Bradshaw PROF CHEM 8 (BAS METB)on Anion gap [Moles/Vol] 14.1 mmol/L Normal [facility] Comment on above: Performed By: #### B MP, TSH #### [facility] [address] [place] [address] Dr. Paola Bradshaw Calcium [Mass/Vol] 8.8 mg/dL Normal 8.5-10.1 [facility] Comment on above: Performed By: #### B MP, TSH #### [facility] [address] [place] [address] Dr. Paola Bradshaw Chloride [Moles/Vol] 101 mmol/L Normal 98-107 [facility] Comment on above: Performed By: #### B MODESTA, TSH #### [facility] [address] [place] [address] Dr. Paola Bradshaw CO2 [Moles/Vol] 25.6 mmol/L Normal 21.0-32.0 [facility] Comment on above: Performed By: #### B MODESTA, TSH #### [facility] [address] [place] [address] Dr. Paola Bradshaw Creatinine [Mass/Vol] 1.17 mg/dL Normal 0.70-1.30 [facility] Comment on above: Performed By: #### B MODESTA, TSH #### [facility] [address] [place] [address] Dr. Paola Bradshaw EGFR-AF VIETNAMESE >60 Normal >=60 [facility] Comment on above: Performed By: #### B MODESTA, TSH #### [facility] [address] [place] [address] Dr. Paola Bradshaw EGFR-NON AF VIETNAMESE >60 Normal >=60 [facility] Comment on above: Performed By: #### B MODESTA, TSH #### [facility] [address] [place] [address] Dr. Paola Bradshaw Glucose [Mass/Vol] 379 mg/dL Critically high 74-[address] [facility] Comment on above: Performed By: #### B MODESTA, TSH #### [facility] [address] [place] [address] Dr. Paola Bradshaw Potassium [Moles/Vol] 4.7 mmol/L Normal 3.5-5.1 [facility] Comment on above: Performed By: #### B MODESTA, TSH #### [facility] [address] [place] [address] Dr. Paola Bradshaw Sodium [Moles/Vol] 136 mmol/L Normal 136-145 [facility] Comment on above: Performed By: #### B MODESTA, TSH #### [facility] [address] [place] [address] Dr. Paola Bradshaw Urea nitrogen [Mass/Vol] 18.0 mg/dL Normal 7.0-18.0 [facility] Comment on above: Performed By: #### B MP, TSH #### [facility] [address] [place] [address] Dr. Paola Bradshaw Urea nitrogen/Creatinine [Mass ratio] 15.4 mg/mg Normal [facility] Comment on above: Performed By: #### B MP, TSH #### [facility] [address] [place] [address] Dr. Paola Bradshaw TSHon 10-08-2021 TSH 3.026 uIU/mL Normal 0.358-3.74 0 [facility] Comment on above: Performed By: #### B MODESTA, TSH #### [facility] [address] [place] [address] Dr. Paola Bradshaw LEVETIRACETAM, SERUM OR PLAS MAon 09-16-2021 Levetiracetam, S 9.0 ug/mL Critically low 10.0-40.0 [facility] Comment on above: Performed By: #### B MP, TSH #### [facility] [address] [place] [address] Dr. Paola Bradshaw CBC AUTO DIFFon 09-09-2021 BASO # 0.1 103/ul Normal 0.0-0.1 [facility] Comment on above: Performed By: #### B MP, TSH #### [facility] [address] [place] [address] Dr. Paola Bradshaw Basophils/100 WBC (Bld) 0.6 % Normal 0.2-2.0 [facility] Comment on above: Performed By: #### B MP, TSH #### [facility] [address] [place] [address] Dr. Paola Bradshaw EO # 0.4 103/ul Normal 0.0-0.7 [facility] Comment on above: Performed By: #### B MP, TSH #### [facility] [address] [place] [address] Dr. Paola Bradshaw Eosinophils/100 WBC (Bld) 4.8 % Normal 0.9-7.0 [facility] Comment on above: Performed By: #### B MP, TSH #### [facility] [address] [place] [address] Dr. Paola Bradshaw Erythrocyte distribution width (RBC) [Ratio] 15.2 % Critically high 11.0-15.0 [facility] Comment on above: Performed By: #### B MP, TSH #### [facility] [address] [place] [address] Dr. Paola Bradshaw Hematocrit (Bld) [Volume fraction] 39.6 % Critically low 42.0-54.0 [facility] Comment on above: Performed By: #### B MP, TSH #### [facility] [address] [place] [address] Dr. Paola Bradshaw Hemoglobin (Bld) [Mass/Vol] 12.7 g/dL Critically low 14.0-18.0 [facility] Comment on above: Performed By: #### B MODESTA, TSH #### [facility] [address] [place] [address] Dr. Paola Bradshaw IG # 0.02 10e3/ul Normal 0.00-0.03 [facility] Comment on above: Performed By: #### B MP, TSH #### [facility] [address] [place] [address] Dr. Paola Bradshaw IG % 0.2 % Normal 0.0-0.5 [facility] Comment on above: Performed By: #### B MP, TSH #### [facility] [address] [place] [address] Dr. Paola Bradshaw LYMPH # 3.5 103/ul Normal 1.2-3.8 [facility] Comment on above: Performed By: #### B MP, TSH #### [facility] [address] [place] [address] Dr. Paola Bradshaw Lymphocytes/100 WBC (Bld) 42.5 % Normal 20.5-60.0 [facility] Comment on above: Performed By: #### B MP, TSH #### [facility] [address] [place] [address] Dr. Paola Bradshaw MANUAL DIFF REQ NO Normal [facility] Comment on above: Performed By: #### B MP, TSH #### [facility] [address] [place] [address] Dr. Paola Bradshaw MCH (RBC) [Entitic mass] 27.5 pg Normal 25.9-34.0 [facility] Comment on above: Performed By: #### B MP, TSH #### [facility] [address] [place] [address] Dr. Paola Bradshaw MCHC (RBC) [Mass/Vol] 32.1 g/dL Normal 29.9-35.2 [facility] Comment on above: Performed By: #### B MP, TSH #### [facility] [address] [place] [address] Dr. Paola Bradshaw MCV (RBC) [Entitic vol] 85.7 fL Normal 80.0-94.0 [facility] Comment on above: Performed By: #### B MP, TSH #### [facility] [address] [place] [address] Dr. Paola Bradshaw MONO # 0.7 103/ul Normal 0.3-0.8 [facility] Comment on above: Performed By: #### B MP, TSH #### [facility] [address] [place] [address] Dr. Paola Bradshaw Monocytes/100 WBC (Bld) 8.5 % Normal 1.7-12.0 [facility] Comment on above: Performed By: #### B MP, TSH #### [facility] [address] [place] [address] Dr. Paola Bradshaw NEUT # 3.6 103/ul Normal 1.4-6.5 [facility] Comment on above: Performed By: #### B MP, TSH #### [facility] [address] [place] [address] Dr. Paola Bradshaw Neutrophils/100 WBC (Bld) 43.4 % Normal 43.0-75.0 [facility] Comment on above: Performed By: #### B MP, TSH #### [facility] [address] [place] [address] Dr. Paola Bradshaw Platelet mean volume (Bld) [Entitic vol] 12.9 fL Normal 9.5-13.5 [facility] Comment on above: Performed By: #### B MP, TSH #### [facility] [address] [place] [address] Dr. Paola Bradshaw PLT 206 103/ul Normal 150-450 [facility] Comment on above: Performed By: #### B MP, TSH #### [facility] [address] [place] [address] Dr. Paola Bradshaw RBC 4.62 106/ul Critically low 4.70-6.10 [facility] Comment on above: Performed By: #### B MP, TSH #### [facility] [address] [place] [address] Dr. Paola Bradshaw WBC 8.3 103/ul Normal 4.0-11.0 [facility] Comment on above: Performed By: #### B MP, TSH #### [facility] [address] [place] [address] Dr. Paola Bradshaw PROF 14(COMP METB)on 022 Albumin [Mass/Vol] 3.4 g/dL Normal 3.4-5.0 [facility] Comment on above: Performed By: #### C MP #### [facility] [address] [place] [address] Dr. Paola Bradshaw Albumin/Globulin [Mass ratio] 1.0 {ratio} Normal [facility] Comment on above: Performed By: #### C MP #### [facility] [address] [place] [address] Dr. Paola Bradshaw ALP [Catalytic activity/Vol] 109 U/L Normal 46-116 [facility] Comment on above: Performed By: #### C MP #### [facility] [address] [place] [address] Dr. Paola Bradshaw ALT [Catalytic activity/Vol] 44 U/L Normal 16-63 [facility] Comment on above: Performed By: #### C MP #### [facility] [address] [place] [address] Dr. Paola Bradshaw Anion gap [Moles/Vol] 11.4 mmol/L Normal Th e [facility] Comment on above: Performed By: #### C MP #### [facility] [address] [address] [address] Paola Bradshaw AST [Catalytic activity/Vol] 20 U/L Normal 15-37 [facility] Comment on above: Performed By: #### C MP #### [facility] [address] [address] [address] Paola Bradshaw Bilirubin [Mass/Vol] 0.4 mg/dL Normal 0.2-1.0 [facility] Comment on above: Performed By: #### C MP #### [facility] [address] [address] [address] Paola Bradshaw Calcium [Mass/Vol] 8.5 mg/dL Normal 8.5-10.1 [facility] Comment on above: Performed By: #### C MP #### [facility] [address] [address] [address] Paola Bradshaw Chloride [Moles/Vol] 103 mmol/L Normal 98-107 [facility] Comment on above: Performed By: #### C MP #### [facility] [address] [address] [address] Paola Bradshaw CO2 [Moles/Vol] 25.9 mmol/L Normal 21.0-32.0 [facility] Comment on above: Performed By: #### C MP #### [facility] [address] [address] [address] Paola Bradshaw Creatinine [Mass/Vol] 1.14 mg/dL Normal 0.70-1.30 [facility] Comment on above: Performed By: #### C MP #### [facility] [address] [address] [address] Paola Bradshaw EGFR-AF VIETNAMESE >60 Normal >=60 [facility] Comment on above: Performed By: #### C MP #### [facility] [address] [address] [address] Paola Bradshaw EGFR-NON AF VIETNAMESE >60 Normal >=60 [facility] Comment on above: Performed By: #### C MP #### [facility] [address] [address] [address] Paola Bradshaw Globulin (S) [Mass/Vol] 3.5 g/dL Normal [facility] Comment on above: Performed By: #### C MP #### [facility] [address] [address] [address] Paola Bradshaw Glucose [Mass/Vol] 308 mg/dL Critically high 74-[address] [facility] Comment on above: Performed By: #### C MP #### [facility] [address] [address] [address] Paola Bradshaw Potassium [Moles/Vol] 4.3 mmol/L Normal 3.5-5.1 [facility] Comment on above: Performed By: #### C MP #### [facility] [address] [place] [address] Dr. Paola Bradshaw Protein [Mass/Vol] 6.9 g/dL Normal 6.4-8.2 [facility] Comment on above: Performed By: #### C MP #### [facility] [address] [address] [address] Paola Bradshaw Sodium [Moles/Vol] 136 mmol/L Normal 136-145 [facility] Comment on above: Performed By: #### C MP #### [facility] [address] [address] [address] Paola Bradshaw Urea nitrogen [Mass/Vol] 18.0 mg/dL Normal 7.0-18.0 [facility] Comment on above: Performed By: #### C MP #### [facility] [address] [address] [address] Paola Bradshaw Urea nitrogen/Creatinine [Mass ratio] 15.8 mg/mg Normal [facility] Comment on above: Performed By: #### C MP #### [facility] [address] [address] [address] Paola Bradshaw No Panel Informationon 08-19 24.0\S\24.0 Normal 22.0-30.0 -[facility]u emily 250 DO Work Phone: 104\S\104 Normal 95-114 [facility] Work Phone: 4.7\S\4.7 Normal 3.5-5.1 [facility] 250 DO Work Phone: 138\S\138 Normal 136-146 [facility] Work Phone: > 60 Normal [facility] 250 DO Work Phone: Comment on above: GFR estimated refere nce range: According to KDOQI guidelines, <60 ml/min/1.73m2 is sufficient to diagnose a patient with chronic kidney disease. 9.0\S\9.0 Normal 8.2-10.2 [facility] 250 DO Work Phone: 1.16\S\1.16 Normal 0.64-1.27 [facility] 250 DO Work Phone: [phone] 11\S\11 Normal 9-23 [facility] 250 DO Work Phone: 189\S\189 above high threshold 70-100 [facility] 250 DO Work Phone: Comment on above: Random Glucose Refer ence Range is dependent on time and content of last meal. Glucose of more than 200 mg/dL in a nonstressed, ambulatory subject supports the diagnosis of Diabetes Mellitus. ADA recommended reference range 31\S\31 Normal 10-42 [facility] Clinic[facility] 250 DO Work Phone: 2.90\S\2.90 Normal 0.45-5.33 [facility] Work Phone: Comment on above: PERFORMED BY:[address] [id number] [place] [id number] MEDICAL DIRECTORHAILEY CALDERÓN M.D. Radiologyon 08-19-2021 XR Chest 2 Views Normal [facility] 250 DO Work Phone: No Panel Informationon 06-06 > 60 Normal [facility] Ashley diaz 250 DO Work Phone: Comment on above: GFR estimated refere nce range: According to KDOQI guidelines, <60 ml/min/1.73m2 is sufficient to diagnose a patient with chronic kidney disease. 1.05\S\1.05 Normal 0.64-1.27 [facility] Ashley emily 250 DO Work Phone: 17\S\17 Normal 9-23 [facility] Ashley diaz 250 DO Work Phone: 289\S\289 above high threshold 70-100 [facility] 250 DO Work Phone: Comment on above: Random Glucose Refer ence Range is dependent on time and content of last meal. Glucose of more than 200 mg/dL in a nonstressed, ambulatory subject supports the diagnosis of Diabetes Mellitus. ADA recommended reference range 9.3\S\9.3 Normal 8.2-10.2 [facility] Fact[employer]Alisa emily 250 DO Work Phone: 25.2\S\25.2 Normal 22.0-30.0 [facility] [employer]apt[employer]mber diaz 250 DO Work Phone: 100\S\100 Normal 95-114 [facility] FactonomyAlisa emily 250 DO Work Phone: 4.3\S\4.3 Normal 3.5-5.1 [facility] HadaptAmber jimenezy 250 DO Work Phone: 134\S\134 below low threshold 136-146 [facility] FactonomyAlisa emily 250 DO Work Phone: 22\S\22 Normal 10-42 [facility] Ashley diaz 250 DO Work Phone: 5.87\S\5.87 above high threshold 0.45-5.33 [facility] FactonomyAlisa emily 250 DO Work Phone: [phone] Comment on above: PERFORMED BY:[facility] [place], [place] [id number] MEDICAL DIRECTORHAILEY CALDERÓN M.D. Radiologyon 06-06-2021 XR Chest 2 Views Normal [facility] emily 250 DO Work Phone: Tobacco Screening.on 022 Tobacco use status CPHS b) No [facility] emily 250 DO Work Phone: Vital Signs Date Time Vital Sign Value Performing Clinician Facility 01-12-2024 10:53-0400 Body height 175.3 cm Jesus Posey DO Work Phone: [facility] 01-12-2024 10:53-0400 Body mass index (BMI) [Ratio] 35.09 kg/m2 Jesus Posey DO Work Phone: [facility] 01-12-2024 10:53-0400 Body weight 107.78 kg Jesus Kalpesh DO Work Phone: [facility] 01-12-2024 10:53-0400 Diastolic blood pressure 62 mm[Hg] Jesus Posey DO Work Phone: [facility] 01-12-2024 10:53-0400 Heart rate 73 /min Jesus Kalpesh DO Work Phone: [facility] 01-12-2024 10:53-0400 Systolic blood pressure 108 mm[Hg] Jesus Posey DO Work Phone: [facility] 11-15-2023 08:44-0400 Body height 176.53 cm [facility] 11-15-2023 08:44-0400 Body mass index (BMI) [Ratio] 34.6 kg/m2 [facility] 11-15-2023 08:44-0400 Body temperature 97.8 [degF] [facility] 11-15-2023 08:44-0400 Body weight 107.95 kg [facility] 11-15-2023 08:44-0400 Diastolic blood pressure 64 mm[Hg] [facility] 11-15-2023 08:44-0400 Heart rate 80 /min [facility] 11-15-2023 08:44-0400 Respiratory rate 20 /min [facility] 11-15-2023 08:44-0400 Systolic blood pressure 108 mm[Hg] [facility] 08-24-2023 12:45-0400 Body height 175.[address] 08-24-2023 12:45-0400 Body mass index (BMI) [Ratio] 35.59 kg/m2 [address] 08-24-2023 12:45-0400 Body weight 109.[address] 08-24-2023 12:45-0400 Diastolic blood pressure 60 mm[Hg] [address] 08-24-2023 12:45-0400 Systolic blood pressure 120 mm[Hg] [address] 08-02-2023 09:55-0400 Body height 176.53 cm [facility] 08-02-2023 09:55-0400 Body mass index (BMI) [Ratio] 35 kg/m2 [facility] 08-02-2023 09:55-0400 Body weight 109.31 kg [facility] 08-02-2023 09:55-0400 Diastolic blood pressure 66 mm[Hg] [facility] 08-02-2023 09:55-0400 Heart rate 79 /min [facility] 08-02-2023 09:55-0400 Respiratory rate 20 /min [facility] 08-02-2023 09:55-0400 Systolic blood pressure 133 mm[Hg] [facility] 07-13-2023 10:23-0400 Diastolic blood pressure 60 mm[Hg] Jesus Posey DO Work Phone: [facility] 07-13-2023 10:23-0400 Systolic blood pressure 90 mm[Hg] Jesus Posey DO Work Phone: [facility] 07-13-2023 10:16-0400 Body height 175.3 cm Jesus Posey DO Work Phone: [facility] 07-13-2023 10:16-0400 Body mass index (BMI) [Ratio] 35.59 kg/m2 Jesus Posey DO Work Phone: [facility] 07-13-2023 10:16-0400 Body weight 109.32 kg Jesus Posey DO Work Phone: [facility] 07-13-2023 10:16-0400 Heart rate 80 /min Jesus Posey DO Work Phone: [facility] 05-21-2023 13:17-0500 Body height 175.3 cm Carmen Ha MD Work Phone: [facility] 05-21-2023 13:17-0500 Body mass index (BMI) [Ratio] 35.29 kg/m2 Carmen Ha MD Work Phone: [facility] 05-21-2023 13:17-0500 Body weight 108.41 kg Carmen Ha MD Work Phone: [facility] 05-21-2023 13:17-0500 Diastolic blood pressure 78 mm[Hg] Carmen Ha MD Work Phone: [facility] 05-21-2023 13:17-0500 Heart rate 72 /min Carmen Ha MD Work Phone: [facility] 05-21-2023 13:17-0500 Systolic blood pressure 128 mm[Hg] Carmen Ha MD Work Phone: [facility] 05-04-2023 11:53-0500 Body height 176.53 cm DO Lee Ball Work Phone: [facility] 05-04-2023 11:53-0500 Body mass index (BMI) [Ratio] 35.2 kg/m2 DO Lee Ball Work Phone: [facility] 05-04-2023 11:53-0500 Body weight 109.76 kg DO Lee Ball Work Phone: [facility] 05-04-2023 11:53-0500 Diastolic blood pressure 72 mm[Hg] DO Lee Ball Work Phone: [facility] 05-04-2023 11:53-0500 Heart rate 72 /min DO Lee Ball Work Phone: [facility] 05-04-2023 11:53-0500 Respiratory rate 20 /min DO Lee Ball Work Phone: [facility] 05-04-2023 11:53-0500 Systolic blood pressure 131 mm[Hg] DO Lee Ball Work Phone: [facility] 04-14-2023 09:30-0500 Body height 176.53 cm Lee Ball Other [facility] 04-14-2023 09:30-0500 Body mass index (BMI) [Ratio] 34.87 kg/m2 Lee Ball Other [facility] [employer] Other 04-14-2023 09:30-0500 Body weight 108.68 kg Lee Ball Other [facility] 04-14-2023 09:30-0500 Diastolic blood pressure 70 mm[Hg] Lee Ball Other [facility] 04-14-2023 09:30-0500 Respiratory rate 20 /min Lee Ball Other [facility] [employer] Other 04-14-2023 09:30-0500 Systolic blood pressure 116 mm[Hg] Lee Ball Other [facility] 2023 11:30-0500 Body height 176.53 cm Lee Ball Other [facility] [employer] Other 2023 11:30-0500 Body mass index (BMI) [Ratio] 34.23 kg/m2 Lee Ball Other [facility] [employer] Other 2023 11:30-0500 Body weight 106.69 kg Lee Ball Other [employer] Other 2023 11:30-0500 Diastolic blood pressure 53 mm[Hg] Lee Ball Other [employer] Other 2023 11:30-0500 Respiratory rate 16 /min Lee Ball Other [employer] Other 2023 11:30-0500 Systolic blood pressure 92 mm[Hg] Lee Ball Other [employer] Other 01-12-2023 16:22-0400 Body height 175.3 cm Ivania Velazquez APPLICATIONS INTERN-PERSONAL BANKING ADVISOR Work Phone: [facility] 01-12-2023 16:22-0400 Body mass index (BMI) [Ratio] 33.97 kg/m2 Ivania Velazquez APPLICATIONS INTERN-PERSONAL BANKING ADVISOR Work Phone: [facility] 01-12-2023 16:22-0400 Body temperature 98.01 [degF] Ivania Velazquez APPLICATIONS INTERN-PERSONAL BANKING ADVISOR Work Phone: [facility] 01-12-2023 16:22-0400 Body weight 104.33 kg Ivania Velazquez APPLICATIONS INTERN-PERSONAL BANKING ADVISOR Work Phone: [facility] 01-12-2023 16:22-0400 Diastolic blood pressure 80 mm[Hg] Ivania Velazquez APPLICATIONS INTERN-PERSONAL BANKING ADVISOR Work Phone: [facility] 01-12-2023 16:22-0400 Heart rate 72 /min Ivania Velazquez APPLICATIONS INTERN-PERSONAL BANKING ADVISOR Work Phone: [facility] 01-12-2023 16:22-0400 Systolic blood pressure 120 mm[Hg] Ivania Velazquez APPLICATIONS INTERN-PERSONAL BANKING ADVISOR Work Phone: [facility] 01-05-2023 11:00-0400 Body height 176.53 cm Lee Ball Other [employer] Other 01-05-2023 11:00-0400 Body mass index (BMI) [Ratio] 33.47 kg/m2 Lee Ball Other [employer] Other 01-05-2023 11:00-0400 Body weight 104.33 kg Lee Ball Other [employer] Other 01-05-2023 11:00-0400 Diastolic blood pressure 68 mm[Hg] Lee Ball Other [employer] Other 01-05-2023 11:00-0400 Respiratory rate 20 /min Lee Ball Other [employer] Other 01-05-2023 11:00-0400 Systolic blood pressure 115 mm[Hg] Lee Ball Other [employer] Other 11-30-2022 10:35-0400 Body height 175.26 cm Lee E Ball Work Phone: [employer] 250 DO Work Phone: 11-30-2022 10:35-0400 Body mass index (BMI) [Ratio] 33.67 kg/m2 Lee E Ball Work Phone: [facility] [employer] 250 DO Work Phone: 11-30-2022 10:35-0400 Body surface area Derived from formula 2.18 m2 Lee E Ball Work Phone: [employer] 250 DO Work Phone: 11-30-2022 10:35-0400 Body weight 103.42 kg Lee E Ball Work Phone: [facility] [employer] 250 DO Work Phone: 11-30-2022 10:35-0400 Diastolic blood pressure 60 mm[Hg] Lee E Ball Work Phone: [facility] 250 DO Work Phone: 11-30-2022 10:35-0400 Heart rate 59 /min Lee E Ball Work Phone: [facility] 250 DO Work Phone: 11-30-2022 10:35-0400 Systolic blood pressure 122 mm[Hg] Lee E Ball Work Phone: [facility] [employer] 250 DO Work Phone: 11-25-2022 11:48-0400 Body height 175.26 cm Lee E Ball Work Phone: [facility] [employer] 250 DO Work Phone: 11-25-2022 11:48-0400 Body mass index (BMI) [Ratio] 33.97 kg/m2 Lee E Ball Work Phone: [facility] [employer] 250 DO Work Phone: 11-25-2022 11:48-0400 Body surface area Derived from formula 2.19 m2 Lee E Ball Work Phone: [facility] [employer] 250 DO Work Phone: 11-25-2022 11:48-0400 Body weight 104.33 kg Lee E Ball Work Phone: [facility] [employer] 250 DO Work Phone: 11-25-2022 11:48-0400 Diastolic blood pressure 62 mm[Hg] Lee E Ball Work Phone: [facility] 250 DO Work Phone: 11-25-2022 11:48-0400 Heart rate 70 /min Lee E Ball Work Phone: [facility] 250 DO Work Phone: 11-25-2022 11:48-0400 Systolic blood pressure 104 mm[Hg] Lee E Ball Work Phone: [facility] 250 DO Work Phone: 11-19-2022 16:20-0400 Diastolic blood pressure 86 mm[Hg] DO Lee Ball Work Phone: [facility] 11-19-2022 16:20-0400 Heart rate 70 /min DO Lee Ball Work Phone: [facility] 11-19-2022 16:20-0400 Respiratory rate 16 /min DO Lee Ball Work Phone: [facility] 11-19-2022 16:20-0400 SaO2% (BldA) [Mass fraction] 96 % DO Lee Ball Work Phone: [facility] 11-19-2022 16:20-0400 Systolic blood pressure 144 mm[Hg] DO Lee Ball Work Phone: [facility] 11-19-2022 11:13-0400 Body height 175.26 cm DO Lee Ball Work Phone: [facility] 11-19-2022 11:13-0400 Body temperature 97.1 [degF] DO Lee Ball Work Phone: [facility] 11-19-2022 11:13-0400 Body weight 104.2 kg DO Lee Ball Work Phone: [facility] 10-14-2022 11:00-0400 Body height 176.53 cm Delroy Mcleod Other [facility] [employer] Other 10-14-2022 11:00-0400 Body mass index (BMI) [Ratio] 33.18 kg/m2 Delroy Mcleod Other [facility] [employer] Other 10-14-2022 11:00-0400 Body weight 103.42 kg Delroy Mcleod Other [facility] [employer] Other 09-30-2022 10:00-0400 Body height 176.53 cm Delroy Mcleod Other [employer] Other 09-30-2022 10:00-0400 Body mass index (BMI) [Ratio] 33.18 kg/m2 Delroy Mcleod Other [employer] Other 09-30-2022 10:00-0400 Body weight 103.42 kg Delroy Mcleod Other [employer] Other 09-08-2022 15:00-0400 Body height 176.53 cm Lee Ball Other [facility] [employer] Other 09-08-2022 15:00-0400 Body mass index (BMI) [Ratio] 34.06 kg/m2 Lee Ball Other [facility] [employer] Other 09-08-2022 15:00-0400 Body weight 106.14 kg Lee Ball Other [facility] [employer] Other 09-08-2022 15:00-0400 Diastolic blood pressure 61 mm[Hg] Lee Ball Other [employer] Other 09-08-2022 15:00-0400 Respiratory rate 20 /min Lee Ball Other [employer] Other 09-08-2022 15:00-0400 Systolic blood pressure 98 mm[Hg] Lee Ball Other [employer] Other 07-14-2022 09:21-0400 Body height 175.26 cm Lee E Ball Work Phone: [facility] 250 DO Work Phone: 07-14-2022 09:21-0400 Body mass index (BMI) [Ratio] 35.15 kg/m2 Lee E Ball Work Phone: [facility] 250 DO Work Phone: 07-14-2022 09:21-0400 Body surface area Derived from formula 2.22 m2 Lee E Ball Work Phone: [facility] 250 DO Work Phone: 07-14-2022 09:21-0400 Body weight 107.96 kg Lee Rowell Ball Work Phone: [facility] 250 DO Work Phone: 07-14-2022 09:21-0400 Diastolic blood pressure 64 mm[Hg] Lee Rowell Ball Work Phone: [facility] 250 DO Work Phone: 07-14-2022 09:21-0400 Heart rate 70 /min Lee Rowell Ball Work Phone: [facility] 250 DO Work Phone: 07-14-2022 09:21-0400 Systolic blood pressure 122 mm[Hg] Lee Rowell Ball Work Phone: [facility] 250 DO Work Phone: 05-13-2022 11:33-0500 Body height 175.26 cm Lee Rowell Ball Work Phone: [facility] 250 DO Work Phone: 05-13-2022 11:33-0500 Body mass index (BMI) [Ratio] 35.29 kg/m2 Lee Rowell Ball Work Phone: [facility] 250 DO Work Phone: 05-13-2022 11:33-0500 Body surface area Derived from formula 2.23 m2 Lee Rowell Ball Work Phone: [facility] 250 DO Work Phone: 05-13-2022 11:33-0500 Body weight 108.41 kg Lee E Ball Work Phone: [facility] [employer] 250 DO Work Phone: 05-13-2022 11:33-0500 Diastolic blood pressure 72 mm[Hg] Lee E Ball Work Phone: [facility] [employer] 250 DO Work Phone: 05-13-2022 11:33-0500 Heart rate 70 /min Lee E Ball Work Phone: [facility] [employer] 250 DO Work Phone: 05-13-2022 11:33-0500 Systolic blood pressure 134 mm[Hg] Lee E Ball Work Phone: [facility] [employer] 250 DO Work Phone: 04-08-2022 11:00-0500 Body height 176.53 cm Lee Ball Other [facility] [employer] Other 04-08-2022 11:00-0500 Body mass index (BMI) [Ratio] 33.79 kg/m2 Lee Ball Other [facility] [employer] Other 04-08-2022 11:00-0500 Body weight 105.33 kg Lee Ball Other [facility] [employer] Other 04-08-2022 11:00-0500 Diastolic blood pressure 70 mm[Hg] Lee Ball Other [facility] [employer] Other 04-08-2022 11:00-0500 Respiratory rate 20 /min Lee Ball Other [facility] [employer] Other 04-08-2022 11:00-0500 Systolic blood pressure 122 mm[Hg] Lee Ball Other [employer] Other 04-16-2021 09:43-0500 Body height 175.26 cm Lee E Ball Work Phone: [facility] [employer] 250 DO Work Phone: 04-16-2021 09:43-0500 Body mass index (BMI) [Ratio] 32.93 kg/m2 Lee Rowell Ball Work Phone: [facility] [employer] 250 DO Work Phone: 04-16-2021 09:43-0500 Body surface area Derived from formula 2.16 m2 Lee Rowell Ball Work Phone: [facility] [employer] 250 DO Work Phone: 04-16-2021 09:43-0500 Body weight 101.15 kg Lee Rowell Ball Work Phone: [facility] [place] [employer] 250 DO Work Phone: 04-16-2021 09:43-0500 Diastolic blood pressure 70 mm[Hg] Lee Rowell Ball Work Phone: [facility] [place] [employer] 250 DO Work Phone: 04-16-2021 09:43-0500 Heart rate 71 /min Lee Rowell [employer] Work Phone: [facility] [place] [employer] 250 DO Work Phone: 04-16-2021 09:43-0500 Systolic blood pressure 115 mm[Hg] Lee Rowell [employer] Work Phone: [facility] [place] [employer] 250 DO Work Phone: Encounters Encounter Date Encounter Type Care Provider Facility Start: 01-12-2024 End: 01-12-2024 Office outpatient visit 25 minutes Jesus Posey DO Work Phone: [facility] Comment on above: 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; Ischemic cardiomyopathy; Congestive heart failure, unspecified HF chronicity, unspecified heart failure type; H/O sick sinus syndrome; Biventricular ICD (implantable cardioverter-defibrillator) in place; Paroxysmal atrial fibrillation (Multi); Primary hypertension; Mixed hyperlipidemia; High risk medication use; History of CVA (cerebrovascular accident); Chronic obstructive pulmonary disease, unspecified COPD type (Multi); Obstructive sleep apnea syndrome; BMI 35.0-35.9,adult; Current every day smoker Start: 01-12-2024 End: 01-12-2024 ambulatory [facility] Start: 01-12-2024 End: 01-12-2024 Subsequent hospital visit by physician Rad External Film EF RAD EXTERNAL [employer] Comment on above: Paroxysmal atrial fi brillation (Multi); High risk medication use Start: 12-03-2023 End: 12-03-2023 ambulatory [facility] Start: 11-15-2023 End: 11-15-2023 ambulatory [facility] Work Phone: Start: 11-15-2023 End: 11-15-2023 Patient encounter procedure [facility] Physician [facility] Work Phone: Start: 10-29-2023 End: 10-29-2023 ambulatory [facility] Work Phone: Start: 10-29-2023 End: 10-29-2023 Patient encounter procedure [facility] Physician [facility] Work Phone: Start: 10-08-2023 Non-patient / Non-visit [facility] Physician [facility] Work Phone: Start: 10-05-2023 End: 10-05-2023 ambulatory [facility] Amb[facility] Start: 09-15-2023 Non-patient / Non-visit [facility] Physician [facility] Work Phone: Start: 09-13-2023 End: 09-13-2023 ambulatory [facility] Start: 09-03-2023 Non-patient / Non-visit [facility] Physician [facility] Work Phone: Start: 09-01-2023 End: 09-01-2023 ambulatory YANA ALVAREZ Not Available Start: 08-24-2023 End: 08-24-2023 ambulatory [facility] Start: 08-24-2023 End: 08-24-2023 Subsequent hospital visit by physician Maggie Light Echo/Vasc 3 [facility] Comment on above: Shortness of breath Start: 08-02-2023 End: 08-02-2023 ambulatory [facility] Work Phone: Start: 08-02-2023 End: 08-02-2023 Patient encounter procedure [facility] Work Phone: Start: 07-13-2023 End: 07-13-2023 Office outpatient visit 40 minutes Jesus Hernandez Kalpesh DO Work Phone: [facility] Comment on above: Biventricular ICD (i mplantable cardioverter-defibrillator) in place; Ischemic cardiomyopathy; 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; Paroxysmal atrial fibrillation (Multi); S/P CABG x 4; Status post angioplasty; Primary hypertension; Mixed hyperlipidemia; High risk medication use; Chronotropic incompetence with sinus node dysfunction; BMI 35.0-35.9,adult; Current every day smoker Start: 07-13-2023 End: 01-12-2024 ambulatory [facility] Start: 05-21-2023 End: 05-21-2023 Office outpatient visit 40 minutes Carmen Ha MD Work Phone: [facility] Comment on above: Shortness of breath (Primary Dx); Cardiac pacemaker in situ; H/O sick sinus syndrome; Biventricular ICD (implantable cardioverter-defibrillator) in place; Ischemic cardiomyopathy; Congestive heart failure, unspecified HF chronicity, unspecified heart failure type (CMS/HCC); LBBB (left bundle branch block); S/P CABG x 4; Atherosclerosis of ho-chunk coronary artery of ho-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 pectoris; Primary hypertension; Mixed hyperlipidemia; BMI 35.0-35.9,adult; Current every day smoker; Encounter for medication review and counseling; Encounter to discuss treatment options Start: 05-21-2023 End: 05-21-2023 ambulatory CARMEN HA [facility] Start: 05-21-2023 End: 05-21-2023 Subsequent hospital visit by physician [facility] Comment on above: Ischemic cardiomyopa thy; Cardiac pacemaker in situ Cardiac pacemaker in situ Start: 05-04-2023 End: 05-04-2023 ambulatory DO Lee Segovia Work Phone: [facility] Work Phone: Start: 05-04-2023 End: 05-04-2023 Patient encounter procedure DO Lee Segovia Work Phone: [facility] Work Phone: Start: 04-14-2023 End: 04-14-2023 ambulatory Lee Segovia Other [employer] Other Start: 04-14-2023 Office outpatient vi sit 15 minutes Lee Segovia [facility] Start: 04-14-2023 End: 04-14-2023 Patient encounter procedure DO Lee Segovia Work Phone: [facility]- Start: 03-31-2023 End: 03-31-2023 ambulatory Lee Segovia Other [employer] Other Start: 03-31-2023 Telephone encounter Lee Segovia SELENE [facility] Start: 03-24-2023 End: 03-24-2023 ambulatory Lee Segovia Facility:[facility] Start: 03-24-2023 End: 03-24-2023 Patient encounter procedure DO Lee Segovia Work Phone: [facility] Work Phone: Start: 03-17-2023 End: 03-17-2023 ambulatory Lee Segovia Other [employer] Other Start: 03-17-2023 Telephone encounter Lee [facility]ON [facility] Start: 03-10-2023 Telephone encounter Lee Segovia [facility]ENE [facility] Start: 03-10-2023 End: 03-10-2023 ambulatory JESUS Hernandez KALPESH [employer] Other Start: 03-10-2023 Patient encounter procedure DO Lee Segovia Work Phone: [facility]- Start: 02-21-2023 End: 02-21-2023 ambulatory Lee Segovia Other [employer] Other Start: 02-21-2023 Telephone encounter Lee MORTON [facility] Start: 2023 End: 2023 ambulatory Lee Segovia Other [employer] Other Start: 2023 Office outpatient vi sit 25 minutes Lee Segovia [facility] Start: 2023 Telephone encounter Lee MORTON [facility] Start: 01-26-2023 End: 01-26-2023 ambulatory HOLLI Okeefe [facility] Start: 01-12-2023 End: 01-12-2023 Office outpatient visit 10 minutes Ivania Velazquez [employer] INTERN-PERSONAL BANKING ADVISOR Work Phone: [facility] Comment on above: Biventricular ICD (i mplantable cardioverter-defibrillator) in place (Primary Dx); Ischemic cardiomyopathy; BMI 33.0-33.9,adult; Current every day smoker; Paroxysmal atrial fibrillation (CMS/HCC); Atherosclerosis of ho-chunk coronary artery of ho-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 pectoris Start: 01-07-2023 Telephone encounter Lee MORTON [facility] Start: 01-07-2023 End: 01-07-2023 ambulatory CARMEN HA [facility] [employer] Other Start: 01-05-2023 End: 01-05-2023 ambulatory Lee Segovia Other [employer] Other Start: 01-05-2023 Office outpatient vi sit 25 minutes Lee Segovia [facility] Start: 12-30-2022 End: 12-30-2022 ambulatory Delroy Mcleod Other [employer] Other Start: 12-30-2022 Office outpatient vi sit 15 minutes Delroy Mcleod [facility] [place] [facility] Start: 12-07-2022 Chart Update Lee lira Work Phone: [facility] 250 DO Work Phone: Start: 11-30-2022 Office consultation new/estab patient 80 min Lee E Ball Work Phone: [facility] 320 DO Work Phone: Start: 11-30-2022 ambulatory Carmen Ha Facility:1 [id number] Start: 11-25-2022 Office outpatient vi sit 25 minutes Lee E Ball Work Phone: [facility] 250 DO Work Phone: Start: 11-25-2022 Patient encounter procedure Lee Sorin Ball Work Phone: [facility] 250 DO Work Phone: Start: 11-25-2022 ambulatory Ms. Ivania Velazquez Facility: Start: 11-24-2022 End: 11-24-[address] Lee Segovia Facility:90 Start: 11-24-2022 End: 11-24-2022 ambulatory DO Lee [place]te Work Phone: [facility] Work Phone: Start: 11-24-2022 End: 11-24-2022 Patient encounter procedure DO Lee Segovia Work Phone: [facility]-Pacemaker Check Start: 11-19-2022 ambulatory Jesus Stone [id number] Start: 11-19-2022 Telephone encounter Delroy Skelton [facility] Start: 11-19-2022 End: 11-19-2022 Admission to same day surgery center DO Lee Ball Work Phone: [facility]-Tool Technician Work Phone: Start: 11-19-2022 End: 11-19-2022 ambulatory DO Lee Segovia Work Phone: [facility] Work Phone: Start: 11-13-2022 End: 11-13-2022 ambulatory Lee Segovia Facility:[facility] Start: 11-13-2022 End: 11-13-2022 Patient encounter procedure DO Lee Segovia Work Phone: [facility] [employer]zq-Erg-Cbpldgbe Testing Work Phone: Start: 11-04-2022 Telephone encounter Lee Segovia Work Phone: [facility] 250 DO Work Phone: Start: 11-03-2022 Chart Update Lee Styles l Work Phone: [facility] 250 DO Work Phone: Start: 10-28-2022 ambulatory JESUS Stone [id number] Start: 10-14-2022 End: 10-14-2022 ambulatory Delroy Mcleod Other [employer] Other Start: 10-14-2022 Office outpatient vi sit 10 minutes Delroy Mcleod [facility] Start: 09-30-2022 End: 09-30-2022 ambulatory Delroy Mcleod Other [employer] Other Start: 09-30-2022 Office outpatient ne w 30 minutes Delroy Mcleod [facility] Start: 09-30-2022 Telephone encounter Delroy MORTON [facility] Start: 09-17-2022 End: 09-17-2022 ambulatory Lee Segovia Other [employer] Other Start: 09-17-2022 Office outpatient vi sit 15 minutes Lee Ball [facility] Start: 09-08-2022 End: 09-08-2022 ambulatory Lee Ball Other [employer] Other Start: 09-08-2022 Office outpatient vi sit 25 minutes Lee Ball [facility] Start: 08-21-2022 End: 08-21-2022 ambulatory Lee Ball Facility:[facility] Start: 08-21-2022 End: 08-21-2022 Patient encounter procedure DO Lee Segovia Work Phone: [facility]-Pacemaker Check Start: 08-21-2022 End: 08-21-2022 ambulatory DO Lee Segovia Work Phone: [facility] Work Phone: Start: 08-05-2022 End: 08-05-2022 ambulatory Lee Segovia Facility:[facility] Start: 08-05-2022 End: 08-05-2022 Patient encounter procedure DO Lee Segovia Work Phone: [facility]-Respiratory Therapy Work Phone: Start: 08-03-2022 End: 08-03-2022 ambulatory Lee Segovia Other [facility] [employer] Other Start: 08-03-2022 Telephone encounter [facility] Start: 07-30-2022 End: 07-30-2022 ambulatory Lee Segovia Other [facility] [employer] Other Start: 07-30-2022 Telephone encounter Lee [facility] Start: 07-20-2022 End: 08-19-2022 ambulatory SHAIKH Shi MONTERO Facility: Start: 07-14-2022 Office outpatient vi sit 40 minutes Lee Segovia Work Phone: [facility] 250 DO Work Phone: Start: 07-14-2022 ambulatory Jesus Stone y: Start: 07-09-2022 End: 07-09-2022 ambulatory Lee Segovia Other [employer] Other Start: 07-09-2022 Telephone encounter [facility] Start: 07-08-2022 Telephone encounter Lee [facility] Start: 07-08-2022 End: 07-09-[address] LEE SEGOVIA [facility] [employer] Other Start: 06-25-2022 Rx Renewal Lee lira Work Phone: [facility] 250 DO Work Phone: Start: 06-22-2022 End: 07-17-2022 ambulatory SHAIKH Shi MONTERO Facility:H1 Start: 05-20-2022 End: 06-19-2022 ambulatory SHAIKH Shi MONTERO Facility:[facility] Start: 05-18-2022 End: 05-18-2022 ambulatory Lee Segovia Other [employer] Other Start: 05-18-2022 Telephone encounter Lee MORTON [facility] Start: 05-13-2022 Patient encounter procedure Lee Sorin [place] Work Phone: [facility] 250 DO Work Phone: Start: 05-13-2022 ambulatory Ms. Ivania Velazquez Facility: Start: 05-06-2022 End: 05-06-2022 ambulatory Lee Segovia Other [employer] Other Start: 05-06-2022 Telephone encounter Lee [facility] Start: 05-01-2022 End: 05-01-2022 ambulatory Lee Segovia Other [employer] Other Start: 05-01-2022 Telephone encounter Lee [facility] MORTON [facility] Start: 04-22-2022 End: 05-20-2022 ambulatory SHAIKH Shi MONTERO Facility:H1 Start: 04-21-2022 Rx Renewal Lee lira Work Phone: [facility] 250 DO Work Phone: Start: 04-08-2022 End: 04-08-2022 ambulatory Lee Segovia Other [employer] Other Start: 04-08-2022 Office outpatient vi sit 25 minutes Lee Segovia [facility] Start: 04-08-2022 Telephone encounter Lee MORTON [facility] Start: 04-03-2022 End: 04-04-[address] GINO ZAVALA Facility:[facility]1 Start: 04-02-2022 End: 04-02-2022 ambulatory Lee Segovia Other [facility] [employer] Other Start: 04-02-2022 Telephone encounter Lee MORTON Nafisa Segov[facility] Start: 03-31-2022 End: 04-01-[address] LEE SEGOVIA [facility] [employer] Other Start: 03-31-2022 Telephone encounter Lee [facility] Seg[facility] Start: 03-30-2022 End: 03-30-2022 ambulatory Lee Segovia Other [facility] [employer] Other Start: 03-30-2022 Telephone encounter Lee Segovia [facility] Start: 02-19-2022 End: 03-22-2022 ambulatory SHAIKH Shi NOVOAD Facility:H1 Start: 02-04-2022 Chart Update Lee lira Work Phone: [facility] 250 DO Work Phone: Start: 02-04-2022 End: 02-04-2022 ambulatory DO Lee Segovia Work Phone: [facility] Work Phone: Start: 02-04-2022 End: 02-04-2022 Patient encounter procedure DO Lee Segovia Work Phone: [facility]-Respiratory Therapy Start: 01-20-2022 End: 02-18-2022 ambulatory SHAIKH Shi CARWWAD Facility:H1 Start: 12-21-2021 End: 01-19-2022 ambulatory SHAIKH Shi CARWWAD Facility:H1 Start: 12-19-2021 Patient encounter procedure Lee Rowell [place] Work Phone: [facility] 250 DO Work Phone: Start: 11-20-2021 End: 11-20-2021 Patient encounter procedure DO Lee Segovia Work Phone: [facility]-Pacemaker Check Start: 11-20-2021 End: 12-20-2021 ambulatory SHAIKH Shi NOVOAD Facility:H1 Start: 11-14-2021 End: 11-15-[address] LEE SEGOVIA Facility:[facility]1 Start: 10-21-2021 End: 10-21-[address] LEE SEGOVIA Facility:[facility]1 Start: 10-20-2021 End: 11-19-2021 ambulatory SHAIKH Shi OSBORNANGELO Facility:[facility]1 Start: 10-14-2021 End: 10-14-[address] LEE SEGOVIA Facility:[facility]1 Start: 10-08-2021 End: 10-09-[address] LEE SEGOVIA Facility:[facility]1 Start: 09-23-2021 Rx Renewal Lee lira Work Phone: [facility] 250 DO Work Phone: Start: 09-09-2021 End: 09-10-2021 ambulatory YANA SOFÍA Facility:H1 Start: 08-19-2021 Chart Update Lee lira Work Phone: [facility] 250 DO Work Phone: Start: 06-10-2021 Chart Update Lee lira Work Phone: [facility] 250 DO Work Phone: Start: 04-16-2021 Office outpatient vi sit 15 minutes Lee Segovia Work Phone: [facility] 250 DO Work Phone: Start: 02-28-2021 Rx Renewal Lee lira Work Phone: [facility] 250 DO Work Phone: Patient encounter status Katlin Segovia Work Phone: [facility] 250 DO Work Phone: Procedures Date Procedure Procedure Detail Performing Clinician Start: 01-12-2024 Ecg routine ecg w/le ast 12 lds w/i&r Jeuss Posey DO Work Phone: Start: 07-13-2023 Lipid panel JESUS SOLORZANO Start: 07-13-2023 Aspartate aminotrans ferase [Enzymatic activity/volume] in Serum or Plasma JESUS POSEY Start: 07-13-2023 Basic metabolic 2000 panel - Serum or Plasma JESUS POSEY Start: 07-13-2023 Thyrotropin [Units/v olume] in Serum or Plasma JESUS POSEY Start: 07-13-2023 XR CHEST 2 VIEWS JARAD POSEY Start: 07-13-2023 ECG 12-LEAD JESUS SOLORZANO Start: 07-13-2023 FOLLOW UP IN CARDIOLOGY JESUS POSEY Start: 07-13-2023 Radiologic exam ches t 2 views Jesus Posey DO Work Phone: Start: 07-13-2023 Ecg routine ecg w/le ast 12 lds w/i&r Jesus Posey DO Work Phone: Start: 05-21-2023 ECG 12-LEAD JESUS SOLORZANO Start: 05-21-2023 XR CHEST 2 VIEWS HOLLI MCGUIRE Start: 05-21-2023 CARDIAC DEVICE CHECK - IN CLINIC HOLLI VAZQUEZ Start: 05-21-2023 Ecg routine ecg w/le ast 12 lds w/i&r Carmen Ha MD Work Phone: Start: 05-21-2023 Radiologic exam ches t 2 views Carmen Ha MD Work Phone: Start: 05-21-2023 Prgrmg eval implanta ble in person multi lead dfb Holli Vazquez [employer]S INTERN-PERSONAL BANKING ADVISOR Work Phone: Start: 03-24-2023 Plain chest X-ray DO Be njamin Ball Work Phone: Start: 03-10-2023 Natriuretic peptide B [Mass/volume] in Blood JESUS POSEY Start: 03-10-2023 Basic metabolic 2000 panel - Serum or Plasma JESUS POSEY Start: 01-26-2023 XR CHEST 2 VIEWS HOLLI MCGUIRE Start: 01-07-2023 CARDIAC DEVICE CHECK CHECK - INPATIENT HOLLI VAZQUEZ Start: 01-07-2023 ECG 12-LEAD HOLLI VAZQUEZ Start: 01-07-2023 DISCHARGE PATIENT HOLLI Donahue [facility] Start: 01-07-2023 TELEMETRY MONITORING WHITNEY Hernández ERICKA Start: 01-07-2023 ELECTROPHYSIOLOGY PROCEDURE HOLLI VAZQUEZ Start: 01-07-2023 Glucose [Mass/volume ] in Serum or Plasma HOLLI VAZQUEZ Start: 01-07-2023 Glucose [Mass/volume ] in Serum or Plasma HOLLI VAZQUEZ Start: 01-07-2023 ECG 12-LEAD HOLLI VAZQUEZ Start: 01-07-2023 Glucose [Mass/volume ] in Serum or Plasma HOLLI VAZQUEZ Start: 01-07-2023 XR CHEST 2 VIEWS HOLLI MCGUIRE Start: 01-07-2023 Basic metabolic 2000 panel - Serum or Plasma HOLLI VAZQUEZ Start: 01-07-2023 CBC panel - Blood by Automated count HOLLI VAZQUEZ Start: 01-07-2023 COAGULATION SCREEN HOLLI VAZQUEZ Start: 01-07-2023 PLACE IN OUTPATIENT/HOSPITAL AMBULATORY SURGERY HOLLI VAZQUEZ Start: 12-30-2022 History of coronary artery bypass grafting S/P CABG x 4 Ivania Velazquez [employer]S INTERN-PERSONAL BANKING ADVISOR Work Phone: Start: 11-19-2022 CL LHC [facility] COR Angio w/grafts DO [employer] Work Phone: Start: 10-28-2022 Echocardiography Steve Rowell [employer] Work Phone: Start: 08-05-2022 Plain chest X-ray DO Be njamin [employer] Work Phone: Start: 07-08-[address] WILSON [place] [employer] Comment on above: Performed By: #### B MP, TSH #### [facility] [address] [place] [address] Dr. Paola Bradshaw Start: 02-04-2022 Plain chest X-ray DO Be njamin [employer] Phone: Start: 10-08-[address] STEVE SEGOVIA Comment on above: Performed By: #### P SASC #### [facility] [address] [place] [address] Dr. Paola Bradshaw Start: 09-05-2017 Lipid 1996 panel - S radha or Plasma Ivania Velazquez [employer] INTERN-PERSONAL BANKING ADVISOR Work Phone: Start: 08-14-2016 Screening for malign ant neoplasm of colon Delroy Mcleod Other Start: 08-14-2016 Screening for malign ant neoplasm of prostate Delroy Mcleod Other Start: 02-05-2014 General examination of patient Delroy Mcleod Other Appendectomy Lee Segovia Work Phone: Brain Surgery Lee lira Work Phone: Cardiac catheterization Benj ton Segovia Work Phone: Coronary artery bypa ss graft Lee Segovia Work Phone: Hemorrhoidectomy Lee Segovia Work Phone: History of coronary artery bypass grafting S/P CABG x 4 Lee Segovia Work Phone: History of coronary artery bypass grafting H/O coronary artery bypass surgery DO Lee Segovia Work Phone: History of [...] Segovia Work Phone: Operation on the ear Katlin Segovia Work Phone: Operative procedure on knee Lee Segovia Work Phone: Screening for malign ant neoplasm of prostate Delroy Mcleod Other Surgical procedure Lee Segovia Work Phone: Comment on above: Stent Indications; Surgery Excision Of Sublingual Gland; Tonsillectomy Lee liar Work Phone: NEGATED: Highlighted row has not occurred! Total colonoscopy Lee Segovia Work Phone: Plan of Treatment Date Care Activity Detail Author Start: 06-01-2027 DTaP/Tdap/Td Vaccines (2 - Td or Tdap) DTaP/Tdap/Td Vaccines (2 - Td or Tdap) [facility] Start: 08-26-2024 Glaucoma screening Diabetes: Retinopathy Screening [facility] Start: 08-23-2024 Echocardiography Echocardiogram [facility] Start: 07-13-2024 End: 07-13-2024 Patient encounter procedure 07/13/2024 10:50 AM EDT Office Visit [facility] [address] [place] [id number] Jesus Posey DO [address] [place] [address] [facility] Start: 07-12-2024 End: 01-11-2025 Aspartate aminotransferase [Enzymatic activity/volume] in Serum or Plasma by With P-5'-P Aspartate Aminotransferase Lab Routine Paroxysmal atrial fibrillation (Multi) High risk medication use Expected: 07/12/2024 (Approximate), Expires: 01/11/2025 [facility] Service Area Work Phone: Comment on above: Expected: 07/12/2024 (Approximate), Expi res: 01/11/2025 Start: 07-12-2024 End: 01-11-2025 Basic metabolic 2000 panel - Serum or Plasma Basic Metabolic Panel Lab Routine Paroxysmal atrial fibrillation (Multi) High risk medication use Expected: 07/12/2024 (Approximate), Expires: 01/11/2025 [facility] Work Phone: Comment on above: Expected: 07/12/2024 (Approximate), Expi res: 01/11/2025 Start: 07-12-2024 End: 01-11-2025 Thyrotropin [Units/volume] in Serum or Plasma Thyroid Stimulating Hormone Lab Routine Paroxysmal atrial fibrillation (Multi) High risk medication use Expected: 07/12/2024 (Approximate), Expires: 01/11/2025 [facility] Work Phone: Comment on above: Expected: 07/12/2024 (Approximate), Expi res: 01/11/2025 Start: 06-20-2024 End: 06-20-2024 Patient encounter procedure [facility] Start: 04-13-2024 End: 01-11-2025 Complete Pulmonary Function Test (Spirometry/DLCO/Lung Volumes) Complete Pulmonary Function Test (Spirometry/DLCO/Lung Volumes) PFT Routine Paroxysmal atrial fibrillation (Multi) High risk medication use Expected: 04/13/2024 (Approximate), Expires: 01/11/2025 [facility] Work Phone: Comment on above: Expected: 04/13/2024 (Approximate), Expi res: 01/11/2025 Start: 04-13-2024 End: 01-11-2025 XR Chest 2 Views XR chest 2 views Imaging Routine Paroxysmal atrial fibrillation (Multi) High risk medication use Expected: 04/13/2024, Expires: 01/11/2025 [facility] Work Phone: Comment on above: Expected: 04/13/2024, Expires: Start: 03-27-2024 End: 07-12-2024 Complete Pulmonary Function Test Pre/Post Bronchodialator (Spirometry Pre/Post/DLCO/Lung Volumes) Complete Pulmonary Function Test Pre/Post Bronchodialator (Spirometry Pre/Post/DLCO/Lung Volumes) PFT Routine Paroxysmal atrial fibrillation (Multi) High risk medication use Expected: 03/27/2024 (Approximate), Expires: 07/12/2024 [facility] Work Phone: Comment on above: Expected: 03/27/2024 (Approximate), Expi res: 07/12/2024 Start: 01-12-2024 End: 07-12-2024 Aspartate aminotransferase [Enzymatic activity/volume] in Serum or Plasma by With P-5'-P Aspartate Aminotransferase Lab Routine Paroxysmal atrial fibrillation (Multi) High risk medication use Expected: 01/12/2024 (Approximate), Expires: 07/12/2024 [facility] Service Area Work Phone: Comment on above: Expected: 01/12/2024 (Approximate), Expi res: 07/12/2024 Start: 01-12-2024 End: 07-12-2024 Basic metabolic 2000 panel - Serum or Plasma Basic Metabolic Panel Lab Routine Paroxysmal atrial fibrillation (Multi) High risk medication use Expected: 01/12/2024 (Approximate), Expires: 07/12/2024 [facility] Work Phone: Comment on above: Expected: 01/12/2024 (Approximate), Expi res: 07/12/2024 Start: 01-12-2024 End: 07-12-2024 Thyrotropin [Units/volume] in Serum or Plasma Thyroid Stimulating Hormone Lab Routine Paroxysmal atrial fibrillation (Multi) High risk medication use Expected: 01/12/2024 (Approximate), Expires: 07/12/2024 [facility] Work Phone: Comment on above: Expected: 01/12/2024 (Approximate), Expi res: 07/12/2024 Start: 01-12-2024 End: 01-12-2024 Patient encounter procedure 01/12/2024 10:50 AM EDT Office Visit [facility] [address] [place] [address] Jesus Posey DO [address] [place] [address] [facility] Start: 01-12-2024 Subsequent hospital visit by physician 01/12/2024 Hospital Encounter [facility] [address] [place] [address] Paroxysmal atrial fibrillation (Multi); High risk medication use [facility] Comment on above: Paroxysmal atrial fibrillation (Multi); High risk medication use Start: 01-08-2024 Creatinine measurement Creatinine Level [facility] Start: 01-08-2024 Potassium measurement Potassium Level [facility] Start: 11-23-2023 End: 11-23-2023 Patient encounter procedure [facility] Start: 11-21-2023 End: 05-20-2024 Cardiac Device Check - In Clinic Cardiac Device Check - In Clinic Implantable Cardiac Device Routine Biventricular ICD (implantable cardioverter-defibrillato r) in place Expected: 11/21/2023 (Approximate), Expires: 05/20/2024 [facility] Work Phone: Comment on above: Expected: 11/21/2023 (Approximate), Expi res: 05/20/2024 Start: 11-21-2023 COVID-19 Vaccine ( season) COVID-19 Vaccine ( season) [facility] Start: 11-21-2023 Influenza vaccination Influenza Vaccine (#1) [facility] Start: 10-29-2023 Echocardiography Echocardiogram [facility] Start: 09-13-2023 End: 09-13-2023 Patient encounter procedure 09/13/2023 8:30 AM EDT Office Visit [facility] [address] [place] [address] Ivania Velazquez, APPLICATIONS INTERN-PERSONAL BANKING ADVISOR [address] [place] [address] [facility] Start: 08-24-2023 End: 08-24-2023 Patient encounter procedure 08/24/2023 12:00 PM EDT Appointment [facility] [address] [place] [phone] [facility] Start: 08-21-2023 End: 05-20-2025 US Heart Transthoracic Transthoracic Echo Complete Echocardiography Routine Shortness of breath Expected: 08/21/2023, Expires: 05/20/2025 [facility] Work Phone: Comment on above: Expected: 08/21/2023, Expires: Start: 07-13-2023 End: 07-13-2023 Patient encounter procedure 07/13/2023 2:10 PM EDT Office Visit [facility] [address] [place] [address] Jesus Posey DO [address] [place] [address] 408- [facility] Start: 07-13-2023 End: 07-12-2024 Lipid 1996 panel - Serum or Plasma Lipid Panel Lab Routine 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 Mixed hyperlipidemia Expected: 07/13/2023 (Approximate), Expires: 07/12/2024 [facility] Work Phone: Comment on above: Expected: 07/13/2023 (Approximate), Expi res: 07/12/2024 Start: 05-21-2023 End: 05-20-2024 XR Chest 2 Views [facility] Service Area Work Phone: Comment on above: Expected: 05/21/2023, Expires: Once for 1 Occurrenc es starting 05/21/2023 until 05/21/2023 Start: 04-13-2023 End: 04-13-2023 Patient encounter procedure 04/13/2023 11:00 AM EST Office Visit [facility] [address] [facility] [address] [place] [address] Carmen Ha MD [address] [facility] [address] [place], [place] [id number] [facility] Start: 11-30-2022 NPVRFRL, Provider: Carmen Ha, Status: Pen, Time: 10:20 AM NPVRFRL, Provider: Carmen Ha, Status: Pen, Time: 10:20 AM [facility] Work Phone: Start: 11-25-2022 FUV, Provider: Ivania Neal, Status: Pen, Time: 11:30 AM FUV, Provider: Ivania Neal, Status: Pen, Time: 11:30 AM [facility] [address] DO Work Phone: Start: 11-20-2022 COVID-19 Vaccine ( season) COVID-19 Vaccine ( season) [facility] Start: 11-20-2022 Influenza vaccination Influenza Vaccine (#1) [facility] Start: 11-19-2022 End: 11-19-2022 [facility] Start: 11-17-2022 [facility], Provider: Jesus Posey, Status: Pen, Time: 1:00 PM [facility], Provider: Jesus Posey, Status: Pen, Time: 1:00 PM [facility] Work Phone: Start: 10-28-2022 ECHO, Provider: CASSY [facility] ULTRASOUND ,[id number], Status: Pen, Time: 10:45 AM ECHO, Provider: CASSY [facility] ULTRASOUND ,[id number], Status: Pen, Time: 10:45 AM [facility] 250 DO Work Phone: Start: 07-14-2022 FUV, Provider: Jesus Posey, Status: Pen, Time: 9:20 AM FUV, Provider: Jesus Posey, Status: Pen, Time: 9:20 AM -[facility] 250 DO Work Phone: Start: 04-15-2022 FUV, Provider: Jesus Posey, Status: Pen, Time: 10:40 AM FUV, Provider: Jesus Posey, Status: Pen, Time: 10:40 AM -[facility] 250 DO Work Phone: Start: 2022 Abdominal aortic aneurysm screening Abdominal Aortic Aneurysm (AAA) Screening [facility] Start: 04-16-2021 FUV, Provider: Jesus Posey, Status: Pen, Time: 9:15 AM FUV, Provider: Jesus Posey, Status: Pen, Time: 9:15 AM -[facility] 250 DO Work Phone: Start: 10-17-2020 COVID-19 Vaccine (3 - Pfizer series) COVID-19 Vaccine (3 - Pfizer series) [facility] Start: 09-05-2018 Lipid panel Lipid Panel [facility] Start: 12-05-2017 Hemoglobin A1c measurement Diabetes: Hemoglobin A1C [facility] Start: 2017 RSV High Risk: (Elderly (60+) or Population) (1 - Risk 60-74 years 1-dose series) RSV High Risk: (Elderly (60+) or Population) (1 - Risk 60-74 years 1-dose series) [facility] Start: 2017 RSV patients and/or patients aged 60+ years (1 - 1-dose 60+ series) RSV patients and/or patients aged 60+ years (1 - 1-dose 60+ series) [facility] Start: 2007 Screening for malignant neoplasm of lung Lung Cancer Screening [facility] Start: 2007 Zoster Vaccines (1 of 2) Zoster Vaccines (1 of 2) [facility] Start: 02-02-1976 Hepatitis A Vaccines (1 of 2 - Risk 2-dose series) Hepatitis A Vaccines (1 of 2 - Risk 2-dose series) [facility] Start: 02-02-1976 Urine screening for protein Diabetes: Urine Protein Screening [facility] Start: 1975 Hepatitis C screening Hepatitis C Screening [facility] Start: 1967 Diabetic foot examination Diabetes: Foot Exam [facility] Start: 1967 Glaucoma screening Diabetes: Retinopathy Screening [facility] Start: 1957 Annual wellness visit Medicare Initial Physical (IPPE) [facility] Start: 1957 Medicare Annual Wellness Visit Medicare Annual Wellness Visit (AWV) [facility] Start: 1957 Screening for malignant neoplasm of colon [facility] Start: 1957 Thyroid stimulating hormone measurement TSH Level [facility] Cardiac Device Check - In Clinic Cardiac Device Check - In Clinic Implantable Cardiac Device Routine Ischemic cardiomyopathy Cardiac pacemaker in situ 05/21/2023 11:51 AM EST [facility] Work Phone: End: 11-21-2023 Cardiac Device Check - Remote Cardiac Device Check - Remote Implantable Cardiac Device Routine Biventricular ICD (implantable cardioverter-defibrillato r) in place 52 Occurrences starting 05/21/2023 until 11/21/2023 [facility] Work Phone: Comment on above: 52 Occurrences starting 05/21/2023 until 11/21/2023 Comprehensive metabo lic 2000 panel - Serum or Plasma [facility] Microalbumin [Mass/volume] in Urine [facility] Patient Education Heart failure and atrial fibrillation Quitting smoking [facility] Work Phone: Patient referral [facility] Work Phone: End: 08-24-2023 US Heart Transthoracic [facility] Work Phone: Comment on above: Once for 1 Occurrences starting 08/24/19 24 until 08/24/2023 [facility] Immunizations Immunization Date Immunization Notes Care Provider Feliz barrett 01-05-2023 influenza virus vaccine, unspecified formulation DO Lee Ball Work Phone: [facility] 01-05-2023 influenza, high dose seasonal, preservative-free Lee Ball Other [facility] [employer] Other 07-07-2022 influenza, high dose seasonal, preservative-free Lee Ball Other [facility] [employer] Other 03-10-2022 influenza virus vaccine, unspecified formulation DO Lee Segovia Work Phone: [facility] 03-10-2022 influenza, high dose seasonal, preservative-free Lee Ball Other [facility] [employer] Other 02-27-2022 pneumococcal polysaccharide vaccine, 23 valent Lee Segovia Work Phone: [facility] [employer] 250 DO Work Phone: 02-20-2022 Fluad Quadrivalent 0 .5 ML Intramuscular Prefilled Syringe Lee E Juliette Work Phone: [facility] [employer] 250 DO Work Phone: 02-20-2022 influenza virus vaccine, split virus (incl. purified surface antigen) Delroy Mcleod Other [facility] [employer] Other 02-20-2022 influenza virus vaccine, unspecified formulation Ivania Velazquez APPLICATIONS INTERN-PERSONAL BANKING ADVISOR Work Phone: [facility] 12-30-2020 influenza virus vaccine, split virus (incl. purified surface antigen) Delroy Mcleod Other [facility] [employer] Other 12-30-2020 influenza virus vaccine, unspecified formulation DO Lee Segovia Work Phone: [facility] 12-29-2020 influenza, injectabl e, quadrivalent, preservative free DO Lee Segovia Work Phone: [facility] 12-29-2020 pneumococcal polysaccharide vaccine, 23 valent DO Lee Segovia Work Phone: [facility] 08-22-2020 Pfizer-BioNTech COVID-19 Vacc 30 MCG/0.3ML Intramuscular Suspension Lee E Juliette Work Phone: [facility] 08-03-2020 Pfizer-BioNTech COVID-19 Vacc 30 MCG/0.3ML Intramuscular Suspension Lee E Juliette Work Phone: [facility] 01-16-2020 influenza virus vaccine, split virus (incl. purified surface antigen) Delroy Mcleod Other [facility] [employer] Other 01-16-2020 influenza virus vaccine, unspecified formulation DO Lee Segovia Work Phone: [facility] 03-22-2019 influenza virus vaccine, unspecified formulation Lee E Ball Work Phone: [facility] 250 DO Work Phone: 03-22-2019 influenza, seasonal, injectable Ivania Velazquez APPLICATIONS INTERN-PERSONAL BANKING ADVISOR Work Phone: [facility] Work Phone: 03-22-2018 influenza virus vaccine, unspecified formulation Lee E Juliette Work Phone: [facility] 250 DO Work Phone: 03-22-2018 pneumococcal polysaccharide vaccine, 23 valent Lee E Ball Work Phone: [facility] 250 DO Work Phone: 12-20-2017 influenza virus vaccine, unspecified formulation Lee E Juliette Work Phone: [facility] 250 DO Work Phone: 12-20-2017 pneumococcal conjuga te vaccine, 13 valent Lee E Ball Work Phone: [facility] 250 DO Work Phone: 05-31-2017 diphtheria, tetanus toxoids and acellular pertussis vaccine, unspecified formulation Delroy Mcleod Other [facility] 05-31-2017 tetanus and diphther ia toxoids, adsorbed, preservative free, for adult use (5 Lf of tetanus toxoid and 2 Lf of diphtheria toxoid) DO Lee Segovia Work Phone: [facility] 05-31-2017 tetanus toxoid, redu rashida diphtheria toxoid, and acellular pertussis vaccine, adsorbed Lee Segovia Work Phone: [place] [address] DO Work Phone: 12-21-2016 influenza virus vaccine, unspecified formulation Lee Segovia Work Phone: [facility] 250 DO Work Phone: 12-20-2016 Flu Vaccine - Adult DO Madi Segovia Work Phone: [facility] 12-20-2016 influenza, seasonal, injectable DO Lee Segovia Work Phone: [facility] 12-09-2016 influenza, seasonal, injectable Lee Segovia Work Phone: [facility] 250 DO Work Phone: 12-09-2016 tetanus and diphther ia toxoids, adsorbed, preservative free, for adult use (5 Lf of tetanus toxoid and 2 Lf of diphtheria toxoid) Delroy Mcleod Other [facility] 01-07-2015 influenza, seasonal, injectable, preservative free Lee Segovia Work Phone: [facility] 250 DO Work Phone: 01-07-2015 pneumococcal conjuga te vaccine, 13 valent Lee Segovia Work Phone: [facility] 250 DO Work Phone: 01-07-2015 tetanus and diphther ia toxoids, adsorbed, preservative free, for adult use (5 Lf of tetanus toxoid and 2 Lf of diphtheria toxoid) Delroy Shani Other [facility] 12-20-2014 influenza virus vaccine, unspecified formulation Lee E Ball Work Phone: [facility] [employer] DO Work Phone: 12-22-2013 influenza virus vaccine, unspecified formulation Lee E Ball Work Phone: [facility] [employer] DO Work Phone: 01-23-2013 influenza, seasonal, injectable Lee E Ball Work Phone: [facility] [employer] DO Work Phone: 12-02-2011 tetanus and diphther ia toxoids, adsorbed, preservative free, for adult use (5 Lf of tetanus toxoid and 2 Lf of diphtheria toxoid) Delroy Shani Other [facility] 03-22-2011 influenza virus vaccine, unspecified formulation Ivania Velazquez APPLICATIONS INTERN-PERSONAL BANKING ADVISOR Work Phone: [facility] Work Phone: 03-22-2010 influenza virus vaccine, unspecified formulation Ivania Velazquez APPLICATIONS INTERN-PERSONAL BANKING ADVISOR Work Phone: [facility] Work Phone: 03-22-2009 influenza virus vaccine, unspecified formulation Ivania Velazquez APPLICATIONS INTERN-PERSONAL BANKING ADVISOR Work Phone: [facility] Work Phone: 03-22-2008 influenza virus vaccine, unspecified formulation Ivania Velazquez APPLICATIONS INTERN-PERSONAL BANKING ADVISOR Work Phone: [facility] Work Phone: influenza virus vaccine, unspecified formulation Lee E Ball Work Phone: [facility] [employer] DO Work Phone: Comment on above: 2008 2009 2010 2011 Payers Date Payer Category Payer Medicare [id number] 2022 Medicare (Managed Care) [facility] MEDICARE [id number] 2022 Self-pay [id number] 1959 Medicare [id number] 1957 Unknown [id number] 2.16.840.1.766124.3.579. 2.593 1957 Unknown [id number] 2.16.840.1.604590.3.579. 2.593 1957 Unknown [id number] 2.16.840.1.711139.3.579. 2.593 1957 Unknown [id number] 2.16.840.1.063968.3.579. 2.593 1957 Unknown [id number] 2.16.840.1.780382.3.579. 2.593 1957 Unknown [id number] 2.16.840.1.999070.3.579. 2.593 1957 Unknown [id number] 2.16.840.1.452698.3.579. 2.593 1957 Unknown [id number] 2.16.840.1.769067.3.579. 2.593 1957 Unknown [id number] 2.16.840.1.580266.3.579. 2.593 1957 Unknown [id number] 2.16.840.1.345650.3.579. 2.593 1957 Unknown [id number] 2.16.840.1.227331.3.579. 2.593 1957 Unknown [id number] 2.16.840.1.106811.3.579. 2.593 1957 Unknown [id number] 2.16.840.1.822620.3.579. 2.593 1957 Unknown [id number] 2.16.840.1.020300.3.579. 2.593 1957 Unknown [id number] 2.16.840.1.697026.3.579. 2.593 1957 Unknown [id number] 2.16.840.1.448969.3.579. 2.593 1957 Unknown [id number] 2.16.840.1.373882.3.579. 2.593 1957 Unknown [id number] 2.16.840.1.588520.3.579. 2.593 1957 Unknown [id number] 2.16.840.1.397097.3.579. 2.1068 1957 Unknown [id number] 2.16.840.1.153482.3.579. 2.356 1957 Unknown [id number] 2.16.840.1.393771.3.579. 2.356 1957 Unknown [id number] 2.16.840.1.244715.3.579. 2.356 1957 Unknown [id number] 2.16.840.1.002783.3.579. 2.356 1957 Unknown [id number] 2.16.840.1.593422.3.579. 2.356 1957 Unknown [id number] 2.16.840.1.666596.3.579. 2.356 1957 Unknown [id number] 2.16.840.1.371427.3.579. 2.356 1957 Unknown [id number] 2.16.840.1.597263.3.579. 2.1259 1957 Unknown [id number] 2.16.840.1.802611.3.579. 2.1245 1957 Unknown [id number] 2.16.840.1.002152.3.579. 2.1245 1957 Unknown [id number] 2.16.840.1.659883.3.579. 2.1245 1957 Unknown [id number] 2.16.840.1.784537.3.579. 2.1245 1957 Unknown [id number] 2.16.840.1.179674.3.579. 2.1245 1957 Unknown [id number] 2.16.840.1.322099.3.579. 2.1245 1957 Unknown [id number] 2.16.840.1.297093.3.579. 2.1243 1957 Unknown [id number] 2.16.840.1.387731.3.579. 2.1243 1957 Unknown [id number] 2.16.840.1.988771.3.579. 2.1243 1957 Unknown [id number] 2.16.840.1.551704.3.579. 2.1243 1957 Unknown [id number] 2.16.840.1.585336.3.579. 2.1243 1957 Unknown [id number] 2.16.840.1.931301.3.579. 2.1243 1957 Unknown [id number] 2.16.840.1.885748.3.579. 2.1244 1957 Unknown [id number] 2.16.840.1.806476.3.579. 2.1245 Medicare Medicare [id number] Unknown [employer] [place] [employer] Unknown [id number] 2.16.840.1.668966.3.579. 2.531 Unknown [id number] 2.16.840.1.373122.3.579. 2.531 Unknown [id number] 2.16.840.1.032461.3.579. 2.531 Unknown [id number] 2.16.840.1.930398.3.579. 2.531 Unknown [id number] 2.16.840.1.671067.3.579. 2.531 Unknown [id number] 2.16.840.1.687438.3.579. 2.531 Social History Date Type Detail Facility Start: 01-07-2023 End: 12-03-2023 Current smoker Current smoker [facility] 250 DO Work Phone: Comment on above: 3-4 CUPS OF COFFEE A DAY, 2 CANS OF SODA; once weekly; 3 cigarettes per day ; almost a pack daily; Start: 06-16-2021 End: 11-15-2023 Tobacco smoking status [facility] Smoker (finding) [facility] Start: 1955 Sex Assigned At Male [facility] Start: 01-12-2023 End: 12-03-2023 [facility] Assigned At [facility] [employer] Other Start: 01-07-2023 End: 07-13-2023 Tobacco smoking status MAIS Smokes tobacco daily [facility] History of tobacco use Cigarette Smoker [facility] Work Phone: Start: 01-07-2023 End: 07-13-2023 Tobacco use and exposure Smokeless tobacco non-user [facility] Work Phone: Start: 01-12-2023 End: 01-12-2024 Alcohol intake Current drinker of alcohol (finding) [facility] Work Phone: Start: 01-09-2023 Gender identity Identifies as male gender (finding) [facility] Work Phone: Start: 01-02-2023 End: 01-12-2024 Exposure to SARS-CoV-2 (event) Not sure [facility] Start: 05-21-2023 [facility] Work Phone: Medical Equipment Procedure Code [...] PACEMAKER ASSURITY MRI RF FDA Start: 06-17-2018 [id number], [id number] Start: 08-03-2022 End: 07-13-2023 Defibrillator, Sales Representative [employer], [place] [employer] - [id number] Start: 01-07-2023 Slitter, Univers al Ii - [id number] Start: 01-07-2023 Durata T, Active Single Coil, Df4, 65cm - [id number] Start: 01-07-2023 Catheter, Attain Command, Mdl 6250v, 45cm - [id number] Start: 01-07-2023 Pacing Lead, Irwin rtet 86cm, Model [id number] Lv, Multi Site, Ventricular - [id number] Start: 01-07-2023 Clinical Notes 03-30-2022 to 01-12-2024 Jesus Posey DO - 01/12/2024 10:50 AM EDTPatient InstructionsVivian Posey DO - 07/13/2023 10:10 AM EDTPatient InstructionsCarmen Ha MD - 05/21/2023 12:00 PM EST Note Date & Type Note Facility 01-12-2024 History of Present illness Narrative Subjective Lesley Quintero is a 68 y.o. male Chief Complaint Follow-up 68-year-old gentleman returns for 6-month follow-up he is doing well. He denies any hospitalizations, nitrate usage, defibrillator discharges, syncope, edema. We continue to follow and treat him for severe ischemic cardiomyopathy status post multivessel revascularization procedures, AICD/biventricular pacemaker Today's ECG demonstrates atrial ventricular sequential pacing with PVC, T wave abnormality. He remains on amiodarone 200 daily in addition to appropriate GDMT including atorvastatin, furosemide, isosorbide, metoprolol succinate, warfarin and losartan. He has known ASHD, remote RI, history of multivessel CABG x4 in 2018, [...] from pacemaker to AICD with biventricular pacemaker. Recommendations: Smoking cessation counseling performed for 5 minutes today, continue current therapies, follow-up again in 6 months and obtain appropriate laboratories Review of Systems Respiratory: Positive for shortness of breath. Neurological: Positive for dizziness. All other systems reviewed and are negative. Vitals: 01/12/24 1053 BP: 108/62 BP Location: Left arm Patient Position: Sitting Pulse: 73 Weight: 108 kg (237 lb 9.6 oz) Height: 1.753 m (5' 9 ) EKG [...] Outpatient Medications: amiodarone (Pacerone) 200 mg tablet, TAKE 1 TABLET DAILY, Disp: 90 tablet, Rfl: 1 aspirin 81 mg EC tablet, Take 1 tablet (81 mg) by mouth once daily., Disp: , Rfl: atorvastatin (Lipitor) 80 mg tablet, Take 1 tablet (80 mg) by mouth once daily at bedtime., Disp: 90 tablet, Rfl: 3 famotidine (Pepcid) 20 mg tablet, Take 1 tablet (20 mg) by mouth 2 times a day., Disp: , Rfl: furosemide (Lasix) 20 mg tablet, Take 1 tablet (20 mg) by mouth once daily., Disp: 30 tablet, Rfl: 11 insulin lispro protamin-lispro (HumaLOG Mix 50-50 KwikPen) 100 unit/mL (50-50) injection, Inject under the skin 2 times a day with meals. Take as directed per insulin instructions., Disp: , Rfl: isosorbide mononitrate ER (Imdur) 30 mg 24 hr tablet, Take 1 tablet (30 mg) by mouth once daily. Do not crush or chew., Disp: 30 tablet, Rfl: 11 Levemir FlexPen 100 unit/mL (3 mL) pen, [...] once daily., Disp: 30 tablet, Rfl: 11 metoprolol succinate XL (Toprol-XL) 50 mg 24 [...] see administration instructions. As directed by the [facility] coumadin clinic. Ok to resume at previous dose on 01/09/23, Disp: , Rfl: Assessment/Plan 1. 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 Ischemic cardiomyopathy 3. Congestive heart failure, unspecified HF chronicity, unspecified heart failure type 4. H/O sick sinus syndrome 5. Biventricular ICD (implantable cardioverter-defibrillator) in place 6. Paroxysmal atrial fibrillation (Multi) 7. Primary hypertension 8. Mixed hyperlipidemia 9. High risk medication use 10. History of CVA (cerebrovascular accident) 11. Chronic obstructive pulmonary disease, unspecified COPD type (Multi) 12. Obstructive sleep apnea syndrome 13. BMI 35.0-35.9,adult 14. Current every day smoker Scribe Attestation By signing my name below, I, Cami Allen LPN attest that this documentation has been [...] discussion and plan. documented in this encounter [facility] Work Phone: 01-12-2024 Instructions Katerin Mcfarland LPN - 01/12/2024 10:50 AM EDT Please bring all medicines, vitamins, and herbal supplements with you when you come to the office. Prescriptions will not be filled unless you are compliant with your follow up appointments or have a follow up appointment scheduled as per instruction of your physician. Refills should be requested at the time of your visit. BMI was above normal measurement. Current weight: 108 kg (237 lb 9.6 oz) Weight change since last visit (-) denotes wt loss 7.6 lbs Weight loss needed to achieve BMI 25: 68.7 Lbs Weight loss needed to achieve BMI 30: 34.9 Lbs Provided instructions on dietary changes Provided instructions on exercise. Amiodarone follow up per routine Pacemaker/Defibrillator follow up per routine The following attachments cannot be sent through Care Everywhere.Heart Healthy Diet (Polish)documented in this encounter [facility] Work Phone: 07-13-2023 History of Present illness Narrative Subjective Lesley Quintero is a 68 y.o. male Chief Complaint Follow-up 68-year-old gentleman returns for 6-month follow-up he is doing well, improved from a respiratory/pulmonary standpoint, unfortunately continues smoking approximately a pack of cigarettes daily and we have continued to prenatal genetic counselor him extensively on tobacco cessation and offered pharmacologic alternatives. He denies angina, hospitalization, nitrate usage or cardiovascular events or pulmonary events/pneumonia or RSV infections. He has known ASHD, remote RI, history of multivessel CABG x4 in 2018, [...] see administration instructions. As directed by the [facility] coumadin clinic. Ok to resume at previous dose on 01/09/23, Disp: , Rfl: Assessment/Plan 1. Biventricular ICD (implantable cardioverter-defibrillator) in place Follow Up In Cardiology 2. Ischemic cardiomyopathy Follow Up In Cardiology 3. 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 4. Paroxysmal atrial fibrillation (Multi) 5. S/P CABG x 4 6. Status post angioplasty 7. Primary hypertension 8. Mixed hyperlipidemia 9. High risk medication use 10. Chronotropic incompetence with sinus node dysfunction 11. BMI 35.0-35.9,adult 12. Current every day smoker Scribe Attestation By signing my name below, I, Cami Allen LPN attest that this documentation has been [...] discussion and plan. documented in this encounter [facility] Work Phone: 07-13-2023 Instructions Katerin Mcfarland LPN [...] instructions on exercise. documented in this encounter [facility] Work Phone: 05-21-2023 History of Present illness Narrative Chief Complaint: Device Check History Of Present Illness: Kenton Quintero is a 68 y.o. male presenting with follow-up. He is accompanied by his . When he walked from parking lot into device clinic, he was breathing very heavily. After adjustment of sensor, his breathing improved. He was able to walk from the device clinic to [facility] without significant dyspnea on exertion. We discussed [...] See admin instructions, As directed by the [facility] coumadin clinic. Ok to resume [...] block) S/P CABG x 4 Atherosclerosis of ho-chunk coronary artery of ho-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 pectoris Primary hypertension Mixed [...] appreciative of care documented in this encounter [facility] Work Phone: 05-21-2023 Instructions Herlinda Salazar RN [...] remote checks at 3 and 9 months HERLINDA Davenport RN, AM SCRIBING FOR AND IN THE PRESENCE OF DR. CARMEN HA MD, FACC, FACP, FHRS documented in this encounter [facility] Work Phone: 04-14-2023 Evaluation note Encounter Date [...] before and after meals and bedtime Mar, 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 (current) use of insulin (ICD-10 - Z79.4) [facility] Other 01-10-2024 Evaluation note* Encounter Date Diagnosis Assessment Notes Treatment Notes Treatment Clinical Notes Mar, Type 2 diabetes mellitus with hyperglycemia (ICD-10 - E11.65) [facility] Other 12-27-2023 Evaluation note* Encounter Date Diagnosis Assessment Notes Treatment Notes Treatment Clinical Notes Feb, Type 2 diabetes mellitus with hyperglycemia (ICD-10 - E11.65) 70-130 - none 131-180 - 2: increase to 4u 181-240 - 4: increase to 6u 241-300 - 6: increase to 8u 301-350 - 8: increase to 10u Levemir 14u bid [facility] Other 12-03-2023 Evaluation note* Encounter Date Diagnosis Assessment Notes Treatment Notes Treatment Clinical Notes Feb, Type 2 diabetes mellitus with hyperglycemia (ICD-10 - E11.65) [facility] Other 11-13-2023 Evaluation note* Encounter Date Diagnosis [...] inhalers necessary No ER visits for AE 13 Jan, 2023 Nicotine dependence, cigarettes, uncomplicated (ICD-10 - F17.210) This patient has been encouraged to quit tobacco use immediately. They are aware of the hazards associated with tobacco use, including but not limited to respiratory infections, vascular disease and cancers. Jan, 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 (current) use of insulin (ICD-10 - Z79.4) [facility] Other 10-25-2023 Evaluation + Plan note* Assessment & Plan Note - SUE [place] - 01/13/2023 8:56 AM EDTAssociated Problem(s): Paroxysmal atrial fibrillation (CMS/HCC) Maintaining sinus rhythm on amiodarone Surveillance testing completed July 2022 CHADS VASc 7 anticoagulated on Coumadin [facility] Work Phone: [phone] 317-325910-25-2023 Evaluation + Plan note* Assessment & Plan Note - SUE [place] - 01/13/2023 8:56 AM EDTAssociated Problem(s): Atherosclerosis of coronary artery of ho-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 pectoris 2022 cardiac cath Newly occluded pAV CX/dCX/OM2 MOLDER VACUUM RCA and SVG-RCA RAMIREZ-LAD patent Sequential free [id number] patent [facility] Work Phone: [phone] 346-645810-25-2023 Miscellaneous Notes* Assessment & Plan Note - SUE [place] - 01/13/2023 8:56 AM EDTAssociated Problem(s): Paroxysmal atrial fibrillation (CMS/HCC) Maintaining sinus rhythm on amiodarone Surveillance testing completed July 2022 CHADS VASc 7 anticoagulated on Coumadin * Assessment & Plan Note - SUE [place] - 01/13/2023 8:56 AM EDT Associated Problem(s): Atherosclerosis of coronary artery of ho-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 pectoris 2022 cardiac cath Newly occluded pAV CX/dCX/OM2 MOLDER VACUUM RCA and SVG-RCA RAMIREZ-LAD patent Sequential free [id number] patent * Assessment & Plan Note - [...] DDHFA 500Q biV ICD [facility]: [phone]) 384-635110-25-2023 Evaluation + Plan note* Assessment & Plan Note - SUE [place] - 01/13/2023 8:55 AM EDTAssociated Problem(s): BMI 33.0-33.9,adult Reviewed the merits of healthy lifestyle choices on overall cardiovascular health. [facility] Work Phone: [phone] 175-327610-25-2023 Evaluation + Plan note* Assessment & Plan Note - SUE [place] - 01/13/2023 8:54 AM EDTAssociated Problem(s): Current every day smoker Continued every day tobacco use. Have reviewed the negative cardiovascular impact of nicotine. Continues to decline pharmacological assistance. [facility] Work Phone: [phone] 718-929410-25-2023 Evaluation + Plan note* Assessment & Plan Note - SUE [place] - 01/13/2023 8:54 AM EDTAssociated Problem(s): Ischemic cardiomyopathy ICM HFrEF 30-35% Oct 2022 cath FC II Stage C GDMT: Toprol Entresto: unable to tolerate d/t hypotension Cozaar: to resume today Aldactone Jardiance: insurance would not cover [facility] Work Phone: [phone]) 295-276010-25-2023 Evaluation + Plan note* Assessment & Plan Note - [place]UE [place] - 01/13/2023 8:52 AM EDTAssociated Problem(s): Biventricular ICD (implantable cardioverter-defibrillator) in place Jan 07, 2023: Fragoso DDHFA 500Q biV ICD [facility] Work Phone: [phone]) 481-766510-24-2023 History of Present illness Narrative* SUE [place] - 01/12/2023 4:00 PM EDT Chief Complaint 'I could not take Entresto Reason for Visit Wound check: Jan 07, 2023 upgrade to Fragoso biV ICD at [facility] Patient presents to the office today [...] tolerance since 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 There are no symptoms consistent with unstable [...] See admin instructions, As directed by the [facility] coumadin clinic. Ok to resume [...] cardiovascular health. Atherosclerosis of coronary artery of ho-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 pectoris 2022 cardiac cath Newly occluded pAV CX/dCX/OM2 MOLDER VACUUM RCA and SVG-RCA RAMIREZ-LAD patent Sequential free [id number] patent Paroxysmal atrial fibrillation (CMS/HCC) Maintaining sinus [...] Dr. Posey 6 months Ivania Velazquez MSN, APPLICATIONS INTERN-PERSONAL BANKING ADVISOR, PMHNP-[facility] Please excuse any errors in grammar or translation related to this dictation. Voice recognition software was utilized to prepare this document. documented in this [facility] Work Phone: [phone]) 351-307210-24-2023 Instructions* Patient Instructions* SUE [place] - 01/12/2023 [...] Dr. Posey 6 months [facility]: [phone] 619-349410-19-2023 Evaluation note* Encounter Date Diagnosis Assessment Notes Treatment Notes Treatment Clinical Notes Dec, Type 2 diabetes mellitus with hyperglycemia (ICD-10 - E11.65) [facility] Other 10-17-2023 Evaluation note* Encounter Date Diagnosis [...] respiratory infections, vascular disease and cancers. 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 Patient given [employer] information handout Dec, Cubital tunnel syndrome on right (ICD-10 - G56.21) Today we have discussed cubital tunnel syndrome. We discussed that it is a compressive neuropathy of the ulnar nerve along the medial elbow at multiple sites. 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 Physical exam findings have also been discussed. [...] which can eliminate the problem. Patient given [employer] information handout [facility] Other 08-31-2023 Discharge summary Author Franck Posey [facility] November 19, 2022 2:51pm Note Date/Time November 19, 2022 2: 48pm [facility] [address] [place] [address] Discharge Summary Signed Patient: Lesley Quintero MR#: [id number] : 1955 Acct:[id number] Age/Sex: 67 / M Adm Date: 3 Loc: Room: Attending Dr: Franck Posey DO Copies to: Lee Segovia,DO Franck Posey, ~ Providers Date of Discharge: 11/19/22 Discharging Provider: [...] routine lifestyle. Patient has previous history of RI, PCI's of the circumflex, ongoing tobacco use, [...] Low-Cholesterol Additional Instructions: DISCHARGE INSTRUCTIONS FOR CARDIAC SOLDER CREAM MAKER PHONE NUMBER OF YOUR PHYSICIAN: [phone] PROCEDURE: Heart Cath The following instructions have [...] cold, numb, blue or white, call the supervisor small appliance assembly immediately. 4. ACTIVITY: You are advised to [...] bottle, follow the instructions on the bottle. [facility] is not responsible for incorrect prescription [...] PO DIRECTED Qty: 0 0RF Patient Comments: MO, WED, WED,, WED, SAT Rx Instructions: Take 3 tablets ( 3MG ) today and tomorrow. (Wednesday and Wednesday ) resume taking 2 tablet ( 2 mg ) then follow the Coumadin clinic at [place] instructions to adjust dosing based on the [...] <Electronically signed by Franck Posey DO> 11/19/22 1451 [facility] Work Phone: [phone]) 558-599408-31-2023 Hospital Discharge instructions Additional Instructions DISCHARGE INSTRUCTIONS FOR CARDIAC SOLDER CREAM MAKER PHONE NUMBER OF YOUR PHYSICIAN: [phone] PROCEDURE: Heart Cath The following instructions have [...] cold, numb, blue or white, call the supervisor small appliance assembly immediately. 4. ACTIVITY: You are advised to [...] bottle, follow the instructions on the bottle. [facility] is not responsible for incorrect prescription information provided by the patient during their visit. Do not stop your medications without consulting your health care provider. 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 Physical exam findings have also been discussed. [...] as documented in the electronic medical record. [facility] Other 07-12-2023 Evaluation note* Encounter Date Diagnosis [...] understood. 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 Physical exam findings have also been discussed. [...] as documented in the electronic medical record. [facility] Other 07-12-2023 Evaluation note* Encounter Date Diagnosis Assessment Notes Treatment Notes Treatment Clinical Notes Sep, Other sequelae of cerebral infarction (ICD-10 - I69.398) Sep, Dizziness and giddiness (ICD-10 - R42) [facility] Other 06-29-2023 Evaluation note* Encounter Date Diagnosis [...] (ICD-10 - J44.1) Increase use of LIDIA [facility] Other 06-20-2023 Evaluation note* Encounter Date Diagnosis [...] risk medication use (ICD-10 - Z79.899) Aug, 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 (current) use of insulin (ICD-10 - Z79.4) Aug, Trigger ring finger of right hand (ICD-10 - M65.341) Refer to Orthopedics [facility] Other 05-15-2023 Evaluation note* Encounter Date Diagnosis Assessment Notes Treatment Notes Treatment Clinical Notes July, Type 2 diabetes mellitus with hyperglycemia (ICD-10 - E11.65) [facility] Other 05-11-2023 Evaluation note* Encounter Date Diagnosis Assessment Notes Treatment Notes Treatment Clinical Notes July, Type 2 diabetes mellitus with hyperglycemia (ICD-10 - E11.65) July, 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 (current) use of insulin (ICD-10 - Z79.4) [place] [facility] Other 04-01-2023 Chief complaint Narrative - Reported* [...] pharmacy would decline Jardiance - will contact. -[facility] [facility][email or web address] DO Work Phone: [phone] Evaluation note* Encounter Date Diagnosis Assessment Notes [...] are maintaining regular scheduled appts with their supervisor small appliance assembly. Mar, Type 2 diabetes mellitus with hyperglycemia, [...] have to d/c medications. May discuss w/ Corporate Financial Analyst. 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) [facility] Other 01-18-2023 Evaluation note* Encounter Date Diagnosis Assessment Notes Treatment Notes Treatment Clinical Notes Mar, ASHD (arteriosclerotic heart disease) (ICD-10 - I25.10) [facility] Other 01-10-2023 Evaluation note* Encounter Date Diagnosis Assessment Notes Treatment Notes Treatment Clinical Notes Mar, High risk medication use (ICD-10 - Z79.899) [facility] Other 01-09-2023 Evaluation note* Encounter Date Diagnosis Assessment Notes Treatment Notes Treatment Clinical Notes Mar, High risk medication use (ICD-10 - Z79.899) [facility] Other Chipo complaint Narrative - Reported* Procedure f/u: 'still short of breath' * LESLEY QUINTERO is being seen for cardiomyopathy. [facility] 250 DO Work Phone: Chief complaint Narrative - Reported* Procedure f/u: 'still short of breath' * LESLEY QUINTERO is being seen for cardiomyopathy. [facility] Work Phone: Chifb complaint Narrative - ReportedMICADILIA QUINTERO is being seen for a consultation for. [facility] 320 DO Work Phone: Evaluation noteNo assessment information available [facility] Work Phone: Evaluation noteNo InformationNort [facility] Other Evaluation note* Diagnosis Biventricular ICD (implantable cardioverter-defibrillator) in place- Primary Ischemic cardiomyopathy Other specified forms of chronic ischemic heart disease BMI 33.0-33.9,adult Current every day smoker Paroxysmal atrial fibrillation (CMS/HCC) Atrial fibrillation Atherosclerosis of ho-chunk coronary artery of ho-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 pectoris documented in this encounter [facility] Work Phone: Evaluation note* Diagnosis Onset Date Resolution Status Diabetes acute Elevated cholesterol acute HTN (hypertension) acute 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 acute ASHD (arteriosclerotic heart disease) chronic [facility] Work Phone: Evaluation note* Diagnosis Shortness of [...] 4 Postsurgical aortocoronary bypass status Atherosclerosis of ho-chunk coronary artery of ho-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 pectoris Primary hypertension Unspecified essential hypertension Mixed hyperlipidemia BMI 35.0-35.9,adult Current every day smoker Encounter for medication review and counseling Encounter to discuss treatment options documented in this encounter [facility] Work Phone: Evaluation note* Diagnosis Ischemic cardiomyopathy Other specified forms of chronic ischemic heart disease Cardiac pacemaker in situ documented in this encounter [facility] Work Phone: Evaluation note* Diagnosis Cardiac pacemaker in situ documented in this encounter [facility] Work Phone: Evaluation note* Diagnosis Cardiac pacemaker in situ documented in this encounter [facility] Work Phone: Evaluation note* Diagnosis Biventricular ICD (implantable cardioverter-defibrillator) in place Ischemic cardiomyopathy Other specified forms of chronic ischemic heart disease 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 Paroxysmal atrial fibrillation [...] risk medication use documented in this encounter [facility] Work Phone: Evaluation note* Diagnosis Onset Date Resolution Status Elevated cholesterol acute HTN (hypertension) acute ASHD (arteriosclerotic heart disease) chronic Elevated cholesterol acute HTN (hypertension) acute Type 2 diabetes mellitus with hyperglycemia acute ASHD (arteriosclerotic heart disease) chronic Screening PSA (prostate specific antigen) noneactive [facility] Work Phone: Evaluation note* Diagnosis Shortness of breath Paroxysmal atrial fibrillation (Multi) Atrial fibrillation High risk medication use documented in this encounter [facility] Work Phone: Evaluation note* Diagnosis Onset Date Resolution Status Elevated cholesterol acute HTN (hypertension) acute Type 2 diabetes mellitus with hyperglycemia acute ASHD (arteriosclerotic heart disease) chronic Screening PSA (prostate specific antigen) noneactive Atrial fibrillation acute Elevated cholesterol acute Hypertension acute [id number] acute Type 2 diabetes mellitus with hyperglycemia acute ASHD (arteriosclerotic heart disease) chronic [facility] Work Phone: Evaluation note* Diagnosis Onset Date Resolution Status Atrial fibrillation acute Elevated cholesterol acute Hypertension acute IBS (irritable bowel syndrome) acute [id number] acute Type 2 diabetes mellitus with hyperglycemia acute ASHD (arteriosclerotic heart disease) chronic Atrial fibrillation acute Hypertension acute Type 2 diabetes mellitus with hyperglycemia acute ASHD (arteriosclerotic heart disease) chronic [facility] Work Phone: Evaluation note* Diagnosis Biventricular ICD (implantable cardioverter-defibrillator) in place- Primary Ischemic cardiomyopathy Other specified forms of chronic ischemic heart disease BMI 33.0-33.9,adult Current every day smoker Paroxysmal atrial fibrillation (Multi) Atrial fibrillation Atherosclerosis of ho-chunk coronary artery of ho-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 pectoris Ischemic cardiomyopathy- Primary Other specified forms of chronic ischemic heart disease Atherosclerosis of ho-chunk coronary artery of ho-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 pectoris Paroxysmal atrial fibrillation (Multi) Atrial fibrillation High risk medication use 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 current use of anticoagulant therapy Mixed hyperlipidemia Primary hypertension Unspecified essential hypertension BMI 35.0-35.9,adult Other specified diabetes mellitus without complication, with long-term current use of insulin Current every day smoker Biventricular ICD (implantable cardioverter-defibrillator) in place Biventricular ICD (implantable cardioverter-defibrillator) in place- Primary Ischemic cardiomyopathy Other specified forms of chronic ischemic heart disease 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 Primary hypertension Unspecified essential hypertension Mixed hyperlipidemia 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,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 High risk medication use Paroxysmal atrial fibrillation (Multi) Atrial fibrillation Current every day smoker 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 Ischemic cardiomyopathy Other specified forms of chronic ischemic heart disease Congestive heart failure, unspecified HF chronicity, unspecified heart failure type H/O sick sinus syndrome Biventricular ICD (implantable cardioverter-defibrillator) in place Paroxysmal atrial fibrillation (Multi) Atrial fibrillation Primary hypertension Unspecified essential hypertension Mixed hyperlipidemia High risk medication use History of CVA (cerebrovascular accident) Transient ischemic attack (TIA), and cerebral infarction without residual deficits Chronic obstructive pulmonary disease, unspecified COPD type (Multi) Obstructive sleep apnea syndrome Obstructive sleep apnea (adult) (pediatric) BMI 35.0-35.9,adult Current every day smoker documented in this encounter [facility] Work Phone: Evaluation note* Diagnosis Biventricular ICD (implantable cardioverter-defibrillator) in place- Primary Ischemic cardiomyopathy Other specified forms of chronic ischemic heart disease BMI 33.0-33.9,adult Current every day smoker Paroxysmal atrial fibrillation (Multi) Atrial fibrillation Atherosclerosis of ho-chunk coronary artery of ho-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 pectoris Ischemic cardiomyopathy- Primary Other specified forms of chronic ischemic heart disease Atherosclerosis of ho-chunk coronary artery of ho-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 pectoris Paroxysmal atrial fibrillation (Multi) Atrial fibrillation 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 Mixed hyperlipidemia Primary hypertension Unspecified essential hypertension BMI 35.0-35.9,adult Other specified diabetes mellitus without complication, with long-term current use of insulin Current every day smoker Biventricular ICD (implantable cardioverter-defibrillator) in place Biventricular ICD (implantable cardioverter-defibrillator) in place- Primary Ischemic cardiomyopathy Other specified forms of chronic ischemic heart disease 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 Primary hypertension Unspecified essential hypertension Mixed hyperlipidemia 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,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 High risk medication use Paroxysmal atrial fibrillation (Multi) Atrial fibrillation Current every day smoker Paroxysmal atrial fibrillation (Multi) Atrial fibrillation High risk medication use documented in this encounter [facility] Work Phone: History general Narrative - Reported* [...] LEFT HE ART Hospitalization History see above [employer] Other History general Narrative - Reported* Type [...] LEFT HE ART Hospitalization History see above [employer] Other History general Narrative - Reported* Type [...] LEFT HE ART Hospitalization History see above [employer] Other History general Narrative - Reported* Type [...] w/o intervention 10/2022 Hospitalization History see above [facility] Other History general Narrative - Reported* Type [...] w/o intervention 10/2022 Hospitalization History see above [employer] Other History general Narrative - Reported* Type [...] w/o intervention 10/2022 Hospitalization History see above [employer] Other History general Narrative - Reported* Type [...] Surgical History Excision of parotid mass tumor 2018 Surgical History ICD w/ BiV PM 2022 Surgical History COLONOSCOPY 2020 Surgical History LHC w/o intervention 10/2022 Surgical History LHC w/o intervention 12/2020 Surgical History PTCA/stent RCA 2009 Surgical History LHC 2010 Surgical History PCI/stent LCx 2013 Hospitalization History see above [facility] Other History of Present illness Narrative* The [...] medication regimen. He denies medication side effects. [employer] [address] [facility] Work Phone: History of Present illness Narrative* [...] medication regimen. He denies medication side effects. [facility] Work Phone: History of Present illness [...] medication regimen. He denies medication side effects. [facility] [address] [facility] Work Phone: History of Present illness Narrative* [...] * Outside records: * OV with Ivania Velazquez Nov 2022 * Cath Oct 2022. On medical management. Occluded LCx. * Echo LVEF 30-35%. * ECG 2022 Appropriate pacing. RAD. Paced QRS 170 ms. LBBB. * Imp / Plan * Ischemic CM. NYHA III C heart failure. LBBB with QRS 170 ms. Chronotropic incompetence. Sinus node dysfunction. s/p dual chamber pacemaker. Treatment options discussed. [employer] decision tool. For upgrade to biventricular ICD. [...] are indications for biventricular device, pacemaker removal, [employer] decision tool, informed consent, Lovenox bridge, possibility [...] above. Patient and family appreciative of care. -[facility] [facility] DO Work Phone: Reason for referral (narrative)* Reason Referral for trigger finger Diagnosis 1 Trigger ring finger of right hand (M65.341) Referral Organization [facility] Referring Provider First Name Lee Referring Provider Last Name Juliette Referring Provider Specialty Internal Me dicine Referred Organization [facility] Referred Provider Acacia Sierra Referred Address [address] [place] [place], [place],[address] Referred Provider Specialty Orthopedic S urgery Referral Priority Routine General Notes Patient w/ trigger f marco, ring finger of right hand. This interferes w/ ADL and golf and he is requesting further treatment. [facility] [employer] Other Reason for referral (narrative)* Consultation (Routine) - Authorized Specialty Diagnoses / Procedures Referred By Chica chau Referred To Contact Cardiology Diagnoses Biventricular ICD (implantable cardioverter-defibrillator) in place Ischemic cardiomyopathy Procedures Follow Up In Cardiology Ivania Velazquez APRN-PERSONAL BANKING ADVISOR [address] [place] [address] Jesus Posey DO [address] [place] [address] Referral ID Status Reason Start Date Expiration Date V isits Requested Visits Authorized [id number] Authorized 01/12/2023 01/12/2024 1 1 [facility] Work Phone: Reason for visit Narrative* Imaging (Routine) - Pending Review Specialty Diagnoses / Procedures Referred By Chica chau Referred To Contact Radiology Diagnoses Paroxysmal atrial fibrillation (Multi) High risk medication use Procedures XR chest 2 views Jesus Posey DO [address] [place] [address] Phone: tel: fax: Referral ID Status Reason Start Date Expiration Date Visits Requested Visits Authorized [id number] Pending Review Perform Procedure 07/13/2023 07/12/2024 1 1 [facility] Work Phone: Chief Complaint * LESLYE QUINTERO is being seen for an annual [...] in 1 year Amiodar[place] [facility] [place] in [place]* Patient EKG [...] usage. * He has known ASHD, remote RI, history of multivessel CABG x4 in 2018, [...] usage. * He has known ASHD, remote RI, history of multivessel CABG x4 in 2018, [...] Unknown sister History of ovarian cancer Unknown Relationship Condition Age at Onset Recorded Date/T lynn sister Malignant neoplasm of ovary Unknown mother Malignant neoplasm of bone Unknown Unknown father History of heart surgery Unknown Myocardial infarction Unknown Type 2 diabetes mellitus Unknown brother Malignant neoplasm of pancreas Unknown father Hypertension Unknown Heart disease Unknown grandparent Unknown mother Unknown Malignant neoplasm Unknown sister History of [...] for Visit Diabetes Elevated cholesterol HTN (hypertension) 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 (current) use of insulin ASHD (arteriosclerotic heart disease) Chief Complaint 3 month follow up wellness Reason for Visit Elevated cholesterol HTN (hypertension) ASHD (arteriosclerotic heart disease) Elevated cholesterol HTN (hypertension) Type 2 diabetes mellitus with hyperglycemia ASHD (arteriosclerotic heart disease) Screening PSA (prostate specific antigen) Chief Complaint wellness bowel issues Reason for Visit Elevated cholesterol HTN (hypertension) Type 2 diabetes mellitus with hyperglycemia ASHD (arteriosclerotic heart disease) Screening PSA (prostate specific antigen) Atrial fibrillation Elevated cholesterol Hypertension [id number] Type 2 diabetes mellitus with hyperglycemia ASHD (arteriosclerotic heart disease) Chief Complaint bowel issues facial swelling Reason for Visit Atrial fibrillation Elevated cholesterol Hypertension IBS (irritable bowel syndrome) [id number] Type 2 diabetes mellitus with hyperglycemia ASHD (arteriosclerotic heart disease) Atrial fibrillation Hypertension Type 2 diabetes mellitus with hyperglycemia ASHD (arteriosclerotic heart disease) Advance Directives No Advanced Directives Records Found [...] Bronchodialator (Spirometry Pre/Post/DLCO/Lung Volumes) Jesus Posey DO [address] [place] [address] Referral ID Status Reason Start Date Expiration Date V isits Requested Visits Authorized [id number] Pending Review 07/13/2023 07/12/2024 1 1 Specialty Diagnoses / Procedures Referred By Contac t Referred To Contact Radiology Diagnoses Paroxysmal atrial fibrillation (Multi) High risk medication use Procedures XR chest 2 views Jesus Posey DO [address], [address] [place] [address] Referral ID Status Reason Start Date Expiration Date Visits Requested Visits Authorized [id number] Pending Review Perform Procedure 07/13/2023 07/12/2024 1 1 Specialty Diagnoses / Procedures Referred By Contac t Referred To Contact Cardiology Diagnoses 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 Procedures Follow Up In Cardiology Jesus Posey DO [address], [address] [place] [address] Jesus Posey DO [address], [address] [place] [address] Referral ID Status Reason Start Date Expiration Date V isits Requested Visits Authorized [id number] Authorized 07/13/2023 07/12/2024 1 1 Specialty Diagnoses / Procedures Referred By Contac t Referred To Contact Diagnoses Paroxysmal atrial fibrillation (Multi) Procedures ECG 12 Lead Jesus Posey, DO [address] [facility] 2, [address] [place] [address] Referral ID Status Reason Start Date Expiration Date V isits Requested Visits Authorized [id number] Authorized 07/13/2023 07/12/2024 1 1 Specialty Diagnoses / Procedures Referred By Contac t Referred To Contact Cardiology Diagnoses Ischemic cardiomyopathy Cardiac pacemaker in situ Procedures Cardiac Device Check - In Clinic Holli Vazquez APRN-MAHENDRA [address] [facility], [address] [address] Referral ID Status Reason Start Date Expiration Date Visits Requested Visits Authorized [id number] Pending Review Perform Procedure 01/07/2024 1 1 Specialty Diagnoses / Procedures Referred By Contac t Referred To Contact Cardiology Diagnoses Shortness of breath Procedures Transthoracic Echo Complete PA ECHO TTHRC R-T 2D W/WOM-MODE COMPL SPEC&COLR D Carmen Ha MD [address] [address] Referral ID Status Reason Start Date Expiration Date Visits Requested Visits Authorized [id number] Pending Review Perform Procedure 05/21/2023 05/20/2024 1 1 Specialty Diagnoses / Procedures Referred By Contac t Referred To Contact Cardiology Diagnoses Biventricular ICD (implantable cardioverter-defibrillator) in place Procedures Cardiac Device Check - In Clinic Carmen Ha MD [address] [address] Referral ID Status Reason Start Date Expiration Date Visits Requested Visits Authorized [id number] Pending Review Perform Procedure 05/21/2023 05/20/2024 52 52 Specialty Diagnoses / Procedures Referred By Contac t Referred To Contact Cardiology Diagnoses Biventricular ICD (implantable cardioverter-defibrillator) in place Procedures Cardiac Device Check - Remote Carmen Ha MD [address] [facility], [address] [place] [address] Referral ID Status Reason Start Date Expiration Date Visits Requested Visits Authorized [id number] Pending Review Perform Procedure 05/21/2023 05/20/2024 52 52 Specialty Diagnoses / Procedures Referred By Contac t Referred To Contact Diagnoses LBBB (left bundle branch block) Procedures ECG 12 lead (Clinic Performed) Carmen Ha MD [address] [facility], [address] [place] [address] Referral ID Status Reason Start Date Expiration Date V isits Requested Visits Authorized [id number] Authorized 05/21/2023 05/20/2024 1 1 Specialty Diagnoses / Procedures Referred By Contac t Referred To Contact Radiology Diagnoses Cardiac pacemaker in situ Procedures XR chest 2 views Carmen Ha MD [address] [facility], [address] [address] Referral ID Status Reason Start Date Expiration Date Visits Requested Visits Authorized [id number] Authorized Perform Procedure 05/21/2023 05/20/2024 1 1 Additional Source Comments Care Teams (unrecognized sec tion and content) Team Status: Active Member Role Status Dates Lee Segovia DO Primary Care Provider Active Team Status: Active Member Role Status Dates Lee Segovia DO Primary Care Provide r, Attending Provider Active Start: September 03, 2023 Team Status: Active Member Role Status Dates Lee Segovia DO Primary Care Provider Active Start: September 15, 2023 Ivania Velazquez APRN Attending Provider Active S tart: September 15, 2023 Team Status: Active Member Role Status Dates Lee Segovia DO Primary Care Provider Active Start: October 08, 2023 Franck Posey DO Attending Provider Active S tart: October 08, 2023 Team Status: Inactive Member Role Status Dates Lee Segovia DO Primary Care Provide r, Attending Provider Active Start: October 29, 2023 End: October 29, 2023 Team Status: Inactive Member Role Status Dates Lee Segovia DO Primary Care Provide r, Attending Provider Active Start: November 15, 2023 End: November 15, 2023 Team Status: Inactive Member Role Status [...] 2023 End: March 24, 2023 W Be Posey , DO Attending Provider Active S tart: March 24, [...] Member Role Status Dates Lee Segovia , DO Primary Care Provider Active W Be Posey , DO Attending Provider Active Electron Beam Photo Mask Maker Relationship Specialty Start Date End Date Lee Segovia DO [address] [place] [address] PCP - General 08/30/17 Lee Segovia DO [address] [place] [phone] PCP - MMO Medicare Advantage PCP 07/20/22 Electron Beam Photo Mask Maker Relationship Specialty Start Date End Date Ivania Velazquez, MICHAEL-PERSONAL BANKING ADVISOR [address] [facility] 2, [facility] [address] [place] [address] PCP - MMO Medicare Advantage PCP 12/20/22 Lee Segovia DO [address], [place] [id number] PCP - General Internal Medicine 02/24/23 Carmen Ha MD [address] [facility] [address], [address] [place] [address] Corporate Financial Analyst Cardiology 05/21/23 Electron Beam Photo Mask Maker Relationship Specialty Start Date End Date Ivania Velazquez APRN-PERSONAL BANKING ADVISOR [address] [place] [address] PCP - MMO Medicare Advantage PCP 12/20/22 [place] [address] [place] [address] [facility] [address] PCP - General Internal Medicine 02/24/23 Carmen Ha MD [address] [facility] [address], [address] [place] [address] Corporate Financial Analyst Cardiology 05/21/23 Electron Beam Photo Mask Maker Relationship Specialty Start Date End Date Ivania Vealzquez APPLICATIONS INTERN-PERSONAL BANKING ADVISOR [address] [facility] 2, [address] [place] [address] PCP - MMO Medicare Advantage PCP 12/20/22 Lee Segovia DO [address] [place] [address] [place] [address] PCP - General Internal Medicine 02/24/23 Carmen Ha MD [address] [facility] [address], [address] [place] [address] Corporate Financial Analyst Cardiology 05/21/23 Electron Beam Photo Mask Maker Relationship Specialty Start Date End Date Ivania Velazquez APPLICATIONS INTERN-PERSONAL BANKING ADVISOR [address], [address] [place] [address] PCP - MMO Medicare Advantage PCP 12/20/22 Lee Segovia DO [address] [place] [address] [facility] [address] PCP - General Internal Medicine 02/24/23 Carmen Ha MD [address] [facility] [address], [address] [place] [address] Corporate Financial Analyst Cardiology 05/21/23 Electron Beam Photo Mask Maker Relationship Specialty Start Date End Date Ivania Velazquez APPLICATIONS INTERN-PERSONAL BANKING ADVISOR [address] [facility] [address], [address] [place] [address] PCP - MMO Medicare Advantage PCP 12/20/22 Lee Segovia DO [address] [place] [address] [facility] [place] [address] PCP - General Internal Medicine 02/24/23 Carmen Ha MD [address] [facility] [address] [place] [address] Corporate Financial Analyst Cardiology 05/21/23 Electron Beam Photo Mask Maker Relationship Specialty Start Date End Date Ivania Velazquez APPLICATIONS INTERN-PERSONAL BANKING ADVISOR [address] [facility] [address], [address] [place] [address] PCP - MMO Medicare Advantage PCP 12/20/22 Lee Segovia DO [address] [facility] [address], [address] [place] [address] PCP - General Internal Medicine 02/24/23 Carmen Ha MD [address] [facility] [address], [address] [place] [address] Corporate Financial Analyst Cardiology 05/21/23 Electron Beam Photo Mask Maker Relationship Specialty Start Date End Date Ivania Velazquez APRN-PERSONAL BANKING ADVISOR [address] [facility] [address], [address] [place] [address] PCP - O Medicare Advantage PCP 12/20/22 Lee Segovia DO [address] [place] [place] [address] PCP - General Internal Medicine 10/05/23 Carmen Ha MD [address] [facility], [facility] [address] [place] [address] Corporate Financial Analyst Cardiology 05/21/23 Electron Beam Photo Mask Maker Relationship Specialty Start Date End Date Ivania Velazquez APRN-PERSONAL BANKING ADVISOR [address] [facility] 2, [facility] [address] [place] [address] PCP - O Medicare Advantage PCP 12/20/22 Lee Segovia DO [address] [place] [address] PCP - General Internal Medicine 10/05/23 Carmen Ha MD [address] [facility], [address] [place] [address] Corporate Financial Analyst Cardiology 05/21/23 Goals (unrecognized section and content) [...] sectionGoals may be documented in an alternate sectionGoals may be documented in an alternate sectionGoals may be documented in an alternate section REASON FOR VISIT (unrecogniz ed section and content) Reason Comments Follow-up ICD wound Check Reason Comments Device Check Specialty Diagnoses / Procedures Referred By Contac t Referred To Contact Diagnoses LBBB (left bundle branch block) Procedures ECG 12 lead (Clinic Performed) Carmen Ha MD [address] [facility], [facility] [address] [place] [address] Referral ID Status Reason Start Date Expiration Date V isits Requested Visits Authorized [id number] Authorized 05/21/2023 05/20/2024 1 1 Specialty Diagnoses / Procedures Referred By Contac t Referred To Contact Cardiology Diagnoses Ischemic cardiomyopathy Cardiac pacemaker in situ Procedures Cardiac Device Check - In Clinic Holli Vazquez, APPLICATIONS INTERN-PERSONAL BANKING ADVISOR [address] [facility], [facility] [address] [place] [address] Referral ID Status Reason Start Date Expiration Date Visits Requested Visits Authorized [id number] Pending Review Perform Procedure 3 01/07/2024 1 1 Specialty Diagnoses / Procedures Referred By Contac t Referred To Contact Radiology Diagnoses Cardiac pacemaker in situ Procedures XR chest 2 views Carmen Ha MD [address] [facility], [facility] [address] [place] [address] Referral ID Status Reason Start Date Expiration Date Visits Requested Visits Authorized [id number] Authorized Perform Procedure 05/21/2023 05/20/2024 1 1 Reason Comments Follow-up 6 months Specialty Diagnoses / Procedures Referred By Contac t Referred To Contact Cardiology Diagnoses Biventricular ICD (implantable cardioverter-defibrillator) in place Ischemic cardiomyopathy Procedures Follow Up In Cardiology Ivania Velazquez, APPLICATIONS INTERN-PERSONAL BANKING ADVISOR [address] [facility] [address], [address] [place] [address] Jesus Posey DO [address] [place] [address] [address], [address] [address] Referral ID Status Reason Start Date Expiration Date V isits Requested Visits Authorized [id number] Authorized 01/12/2023 01/12/2024 1 1 Specialty Diagnoses / Procedures Referred By Contac t Referred To Contact Cardiology Diagnoses Shortness of breath Procedures Transthoracic Echo Complete PA ECHO TTHRC R-T 2D W/WOM-MODE COMPL SPEC&COLR D Carmen Ha MD [address] [facility], [facility] [address] [place] [address] Referral ID Status Reason Start Date Expiration Date Visits Requested Visits Authorized [id number] Authorized Perform Procedure 05/21/2023 05/20/2024 1 1 Reason Comments Follow-up 6m Specialty Diagnoses / Procedures Referred By Contac t Referred To Contact Cardiology Diagnoses 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 Procedures Follow Up In Cardiology Jesus Posey, [address], [address] [address] Phone: tel: fax: Jesus Posey, [address], [address] [address] Phone: tel: fax: Referral ID Status Reason Start Date Expiration Date V isits Requested Visits Authorized [id number] Authorized 07/13/2023 07/12/2024 1 1 (unrecognized sect ion and content) No Status Records FoundNo Status Records FoundNo Status Records FoundNo Status Records FoundNo Status Records FoundNo Status Records FoundNo Status Records FoundNo Status Records FoundNo Status Records Found INFORMATION SOURCE (unrecogn ized section and content) DATE CREATED AUTHOR 08/29/2022 [facility] DATE CREATED AUTHOR AUTHOR'S ORGANIZ ATION 11/02/2022 [facility] DATE CREATED AUTHOR AUTHOR'S ORGANIZ ATION 12/01/2022 [facility] DATE CREATED AUTHOR AUTHOR'S ORGANIZ ATION 01/09/2023 [facility] DATE CREATED AUTHOR AUTHOR'S ORGANIZ ATION 03/27/2023 [facility] DATE CREATED AUTHOR AUTHOR'S ORGANIZ ATION 09/03/2023 [facility] DATE CREATED AUTHOR AUTHOR'S ORGANIZ ATION 12/05/2023 [facility] DATE CREATED AUTHOR AUTHOR'S ORGANIZ ATION 01/13/2024 [facility] DATE CREATED AUTHOR AUTHOR'S ORGANIZ ATION 01/13/2024 [facility] FOR RECORDS PERTAINING TO PATIENTS WHO [...] BE BASED ON THE PRIMARY CLINICAL RECORDS. [facility] [employer] provides no warranty or guarantee of the accuracy or completeness of information in this document.
[2024-02-02 11:04] LABS: Estimated Average Glucose 332 mg/dL; Glycohemoglobin A1C 13.2 % (4.5-6.2)
== END 2024-02-02 09:54 | disposition home or self-care (01) ==
LOC: LAB 09:55
PROVIDERS: PCP Internal Medicine; Visit Provider Internal Medicine
DX: E11.65 Type 2 diabetes mellitus with hyperglycemia (principal); Z79.4 Long term (current) use of insulin; Z51.81 Encounter for therapeutic drug level monitoring; Z79.01 Long term (current) use of anticoagulants; I48.91 Unspecified atrial fibrillation
CPT/HCPCS: 36415; 83036; 85610

== ENCOUNTER 2024-02-20 10:46 | Outpatient (RCR) | payer MEDICARE, SELFPAY | END 2024-03-21 09:35 | disposition home or self-care (01) | LOC: MM 10:46 | PROVIDERS: PCP Internal Medicine; Visit Provider Internal Medicine | DX: Z51.81 Encounter for therapeutic drug level monitoring (principal); Z79.01 Long term (current) use of anticoagulants ==

== ENCOUNTER 2024-03-07 11:08 | Outpatient (OUT) | payer MEDICARE, SELFPAY ==
--- OUTSIDE RECORDS SUMMARY | 2024-03-07 11:23 | XMS_ITS | CCD ---
Author Organization [facility] Care Team Providers Care Housekeeping/Laundry Name Role Phone Lee Segovia Unavailable Unavailable Unavailable DO Lee Segovia Primary Care Provider DO Lesley Cooper Attending Provider DO Lee Segovia Primary Care Provider [phone] DO Lesley Cooper Attending Provider DO Franck Posey Attending Provider [phone] Lee Segovia Unavailable JULIETTE, DR HOWARD Primary [...] Attending Unavailable Juliette, Dr. Lee Jones Primary [facility] [place] Rigo Segovia, DO Howard Primary Care Provider DO Franck Posey Attending Provider Juliette, DO Howard Primary Care Provider [phone] DO Lesley Cooper Attending Provider Marcus, Ms. Ivania Calabrese Attending [...] Segovia, Dr. Lee Jones Primary Care Rigo Segovia DO, Lee Jones Primary Care Provider Lee Segovia DO Unavailable Lee Segovia Primary Care Unavailable Kalpesh, Franck Lr Admitting Unavailable Kalpesh, Franck Lr Attending Unavailable Lee Segovia Primary Care Unavailable Lyster, Lesley Admitting Unavailable Lyster, Lesley Attending Unavailable Lyster, Lesley Admitting Unavailable Lyster, Lesley Attending Unavailable Lee Segovia Primary Care Unavailable Juliette, Lee Primary Care Unavailable Kalpesh, Franck Lr Admitting Unavailable Kalpesh, Franck Lr Attending Unavailable Juliette, Lee Primary Care Unavailable Kalpesh, Franck Lr Admitting Unavailable Kalpesh, Franck Lr Attending Unavailable Kalpesh, Franck Lr Admitting Unavailable Kalpesh, Franck Lr Attending Unavailable Lee Segovia Primary Care Unavailable DO Lee Segovia Primary Care Provider [phone] DO Franck Posey Attending Provider [phone] Marcus [employer]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[place] Unavailable Lee Segovia DO Primary Care Provider Carmen Ha MD Unavailable Lee Segovia DO Primary Care Provider YANA ALVAREZ Attending Unavailable HOLLI VAZQUEZ Referring Unavailable JULIETTE, LEE E Primary Care Unavailable CARMEN HA Referring Unavailable JULIETTE LEE E Primary Care Unavailable CARMEN HA Referring Unavailable JULIETTE, LEE E Primary Care Unavailable CARMEN HA Admitting Unavailable CARMEN HA Attending Unavailable JULIETTE, LEE E Primary Care Unavailable CARMEN HA Referring Unavailable JULIETTE, LEE E Primary Care Unavailable HOLLI VAZQUEZ Referring Unavailable JULIETTE, LEE E Primary Care Unavailable Ball Lee HUGGINS Primary Care Provider JESUS POSEY Attending Unavailable LEE SEGOVIA E Primary Care Unavailable CARMEN HA Attending Unavailable BALL, LEE E Primary Care Unavailable KALPESH, JESUS S Attending Unavailable IVANIA VELAZQUEZ Referring Unavailable LEE [...] Inhibitors] Allergy to drug (finding) 3 Other [facility] [place] Repository (3 sources) patient allergy list reviewed by nurse or physicia Propensity to adverse reactions 5 Comment:Done Clarivoy Other (12 sources) Angiotensin-con verting enzyme inhibitor agent Drug Allergy 3 Other [facility] Medications Current Medications Medication Drug Class(es) [...] Anti-inflammatory Drug Start: 02-18-2017 End: 11-13-2022 take 1 tablet by mouth once daily at bedtime Aspirin 81 mg Tablet,Delayed Release (Dr/Ec) Active 81 MG PO Daily at bedtime November 12, 2022 11:00pm Aspirin 81 MG TA BS TAKE 1 [...] 06/20/2024 Active Start: 02-19-2017 End: 07-01-2017 take 1 tablet by mouth once daily in the evening Atorvastatin 40 mg Tablet Discontinued 40 MG PO Every evening February 19, 2017 12:00am July 01, 2017 1:36pm cefuroxime 500 mg oral tablet (14 sources) Cephalosporin Antibacterial Start: 07-30-2018 take 1 tablet by mouth every twelve hours Dexcom (5 sources) Start: 05-01-2023 Dexcom Active 0 .Route .[facility] May 01, 2023 12:00am Use to test home BS Tranacutaneous 4-6x daily Start: 05-01-2023 Dexcom Active 0 .Route .[facility] May 01, 2023 1:00am Use to test home BS Tranacutaneous 4-6x daily Start: 05-01-2023 Dexcom Active 0 .ROUTE .[facility] May 01, 2023 12:00am Use to test home BS Tranacutaneous 4-6x daily Dexcom 7 (6 sources) Start: 02-21-2023 Dexcom 7 Use t o test home BS Tranacutaneous 4-6x daily for 30 days Feb, Active doxycycline hyclate 100 mg oral capsule (18 sources) Tetracycline -class Drug Start: 11-15-2023 take 1 capsule by mouth twice daily Doxycycline Hyclate 100 mg capsule Active 100 MG PO Twice daily 08 01November 14, 2023 11:00pm Start: 09-17-2022 take 1 capsule by mo cah every twelve hours Doxycycline Hyclate 100 MG 1 capsule Orally Twice a day for 10 days Mar, Active famotidine 20 mg oral tablet (20 sources) Histamine-2 Receptor Antagonist Start: 12-24-2023 Famotidine 20 mg tablet Active 0 .ROUTE .COMPLEX 180 December 24, 2023 9:47am TAKE 1 TABLET TWICE A DAY Start: 08-23-2019 End: 12-24-2023 take 1 tablet by mouth twice daily Famotidine 20 mg Tablet Discontinued 20 MG PO Twice daily August 22, 2019 11:00pm December 24, 2023 9:47am take 1 tablet by ramez once daily Famotidine 20 MG Oral Tablet TAKE 1 TABLET EVERY 12 HOURS DAILY. Quantity: 0 Refills: 0 Ordered: 14-Jul-2022 DO Active FreeStyle Sarah 2 [place] - (8 sources) Start: 2023 FreeStyle Libr e 2 [place] - Use to test home BS 4-6x daily transcutaneous 4-6x daily for 365 days Jan, Active FreeStyle Sarah 2 [place] - (8 sources) Start: 2023 FreeStyle Libr e 2 Sensor - Use to test home BS 4-6x daily transcutaneous 4-6x daily for 30 days Jan, Active furosemide 20 mg oral tablet (5 sources) Loop Diuretic Start: 2024 take 1 tablet by mouth every other day Furosemide 20 mg tablet Active 20 MG PO .QOD 30 2024 12:00am Start: 09-13-2023 End: 09-12-2024 take 1 tablet by mouth once daily furosemide (Lasix) 20 mg tablet Indications: Ischemic cardiomyopathy Take 1 tablet (20 mg) by mouth once daily. 30 tablet 11 09/13/2023 09/12/2024 Active 3 ml insulin detemir [...] 0 Refills: 0 Ordered: 30-Nov-2022 DO Active 3 ml insulin glargine 100 unt/ml pen injector (1 source) Insulin Analog Start: 01-26-2024 Insulin Glargi ne (Lantus Solostar U-100 Insulin) 100 unit/mL (3 mL) insulin pen Active 22 UNIT SUBCUT Twice daily 45 90 January 26, 2024 12:00am 3 ml insulin lispro 100 unt/ml pen injector (9 sources) Insulin Analog Start: 01-07-2023 inject 100 [IU] by subcutaneous injection three times daily before mealtime HumaLOG KwikPen 100 UNIT/ML 2-8 units Subcutaneous tid before meals Dec, Active Start: 01-07-2023 HumaLOG KwikPe n 100 UNIT/ML per sliding scale Subcutaneous with meals Dec, Active Insulin Lispro (Humalog Kwik pen Insulin) 100 unit/mL insulin pen (12 sources) Start: 2024 Insulin Lispro (Humalog Kwikpen Insulin) 100 unit/mL insulin pen Active 1 sliding scale dose SUBCUT Use as Directed 2024 9:35am 70-130 - 0 131-180 - 8 181-240 - 12 241-300 - 16 301-350 - 20 351-400 - 24 > 400 - 28 Start: 12-28-2023 End: 2024 Insulin Lispro (Humalog Kwik pen Insulin) 100 unit/mL insulin pen Discontinued 1 sliding scale dose SUBCUT Use as Directed December 28, 2023 9:14am 2024 9:37am 70-130 - 0 131-180 - 4 181-240 - 8 241-300 - 10 301-350 - 12 351-400 - 16 > 400 - 20 Start: 11-15-2023 End: 12-28-2023 Insulin Lispro (Humalog Kwik pen Insulin) 100 unit/mL insulin pen Discontinued 1 sliding scale dose SUBCUT November 15, 2023 8:01am December 28, 2023 9:15am 70-130 - 0 131-180 - 4 181-240 - 8 241-300 - 10 301-350 - 12 351-400 - 16 > 400 - 20 Start: 11-15-2023 Insulin Lispro (Humalog Kwikpen Insulin) [...] sliding scale dose SUBCUT September 24, 2023 1:09pm November 15, 2023 8:02am 70-130 - 0 131-180 - 4 181-240 - 6 241-300 - 8 301-350 - 10 Start: 09-24-2023 End: 11-15-2023 Insulin Lispro (Humalog [...] insulin pen Discontinued SUBCUT May 01, 2023 12:00am September 24, 2023 1:11pm FreeTextSi-8 units Subcutaneous tid before meals; Note: Source Status: Continue; Provider: Juliette Rowell Start: 05-01-2023 End: 09-24-2023 inject 100 [IU] [...] lispro protamine, human 50 unt/ml pen injector (11 sources) Insulin Analog insulin lispro protamin-lispro (HumaLOG Mix 50-50 KwikPen) 100 unit/mL (50-50) injection Inject under the skin 2 times a day with meals. Take as directed per insulin instructions. Active 24 hr isosorbide mononitrate 30 mg extended release oral tablet (5 sources) Nitrate Vasodilator Start: 09-13-19 End: 09-13-19 25 take 1 tablet by mouth once daily in the morning, then take 1 tablet by mouth every twenty-four hours Isosorbide Mononitrate 30 mg tablet extended release 24 hr Active 30 MG PO Every morning 2024 12:00am levETIRAcetam 750 mg oral tablet (20 sources) Start: 08-20-19 18 take 1 tablet by mouth twice daily Levetiracetam 750 mg Tablet Active 750 TAB PO Twice daily August 18, 2017 11:00pm Start: 02-19-2017 End: 08-19-2017 Levetiracetam 500 mg Tablet Discontinued 750 MG PO Twice daily February 19, 2017 12:00am August 19, 2017 10:56am Start: 02-19-2017 End: 08-19-2017 take 750 mg by mouth twice daily Levetiracetam Discontinued 750 MG PO Twice daily 60 February 19, 2017 1:00am August 19, 2017 11:56am Start: 02-18-2017 End: 02-19-2017 take 1 tablet by mouth twice daily Levetiracetam (Keppra) 500 mg Tablet Discontinued 500 MG PO Twice daily February 18, 2017 12:00am February 19, 2017 11:14am take 1 tablet by ramez th twice [...] (20 sources) Angiotensin 2 Receptor Pato Start: 2024 take 1 tablet by mouth once daily Losartan 25 mg tablet Active 25 MG PO Daily 2024 12:00am Start: 01-12-2023 End: 01-12-2024 take 1 tablet by mouth once daily losartan (Cozaar) 25 mg tablet Indicatio ns: Biventricular ICD (implantable cardioverter-defibrillator) in place , Ischemic cardiomyopathy Take 1 tablet (25 mg) by mouth once daily. 30 tablet 11 01/12/2023 Active Start: 07-14-2022 End: 11-19-2022 take 1 tablet by mouth once daily in the morning Losartan 25 mg tablet Discontinued 25 MG PO Every morning November 12, 2022 11:00pm November 19, 2022 1:49pm methylPREDNISolone 4 mg oral tablet (20 sources) [...] 3 06/21/2023 06/20/2024 Active Start: 05-01-2023 take 1 tablet by ramez th twice daily Metoprolol Succinate 50 mg tablet extended release 24 hr Active 50 MG PO Twice daily May 01, 2023 10:52am Start: 12-14-2017 End: 12-31-2020 take 2 tablets by mouth once daily Metoprolol Succinate 25 mg Tablet Extended Release 24 Hr Discontinued 12.5 MG PO Daily December 13, 2017 11:00pm December 31, 2020 6:38am Start: 12-14-2017 End: 12-31-2020 take 12.5 mg by mouth once daily Metoprolol Succinate Discontinued 12.5 MG PO Daily December 14, 2017 12:00am December 31, 2020 7:38am Start: 09-16-2017 End: 05-01-2023 take 1 tablet by mouth once daily in the morning Metoprolol Succinate 50 mg tablet extended release 24 hr Discontinued 50 MG PO Every morning November 13, 2022 7:37am May 01, 2023 10:56am Start: 02-18-2017 End: 12-14-2017 Metoprolol Tartrate 25 mg Ta blet Discontinued 12.5 MG PO Q12H February 18, 2017 12:00am December 14, 2017 2:06pm Start: 02-18-2017 End: 12-14-2017 take 12.5 mg by mouth every twelve hours Metoprolol Tartrate Discontinued 12.5 MG PO Q12H February 18, 2017 1:00am December 14, 2017 3:06pm take 1 tablet by ramez th every twelve hours Metoprolol Succinate ER 50 MG 1 tablet Orally Twice a day Active Sourav vazquez take 1 tablet by ramez th twice daily Metoprolol Tartrate 50 MG Oral Tablet TAKE 1 TABLET TWICE DAILY. Quantity: 0 Refills: 0 Ordered: 24-Sep-2017 DO Active mirtazapine 30 mg oral table t (20 sources) Start: 11-10-2023 Mirtazapine 30 mg tablet Active 0 .ROUTE .COMPLEX 90 November 10, 2023 6:39am TAKE 1 TABLET DAILY AT BEDTIME Start: [...] apply 0.2 mg topically every hour Nitroglycerin 0.2 mg /hr patch 24 hour Discontinued 0.2 mg/hr TOPICAL Daily August 31, 2017 11:00pm September 03, 2017 10:57am Start: 09-01-2017 End: 12-14-2017 apply 0.4 mg transdermal route every hour, then apply 1 dose transdermal route every twenty-four hours Nitroglycerin (Nitro-Dur) 0.4 mg/hr patch 24 hour Discontinued 1 PATCH TRANSDERML Daily August 31, 2017 11:00pm December 14, 2017 2:12pm allow nitrate-free interval of approx. 10-12 hrs [...] 0 Refills: 0 Ordered: 30-Nov-2022 DO Active Nitroglycerin 0.4 mg tablet, sublingual (1 source) Start: 07-08-2023 Nitroglycerin 0.4 mg tablet, sublingual Active 0 .ROUTE .COMPLEX 100 July 08, 2023 1:37pm DISSOLVE 1 TABLET UNDER THE TONGUE NEEDED FOR CHEST PAIN ofloxacin 3 mg/ml ophthalmic solution (14 sources) Quinolone Antimicrobial Start: 07-30-2018 [place] (4 sources) Start: 05-01-2023 [place] Ac tive 0 .Route .MEDSUPPLY May 01, 2023 1:00am Use to inject insulin qd SC Start: 05-01-2023 [place] Ac tive 0 .ROUTE .MEDSUPPLY May 01, [...] 2019 12:00am Start: 02-18-2017 End: 06-30-2017 take 1 tablet by mouth at bedtime Ropinirole 0.5 mg Tablet Discontinued 0.5 MG PO Bedtime February 18, 2017 12:00am June 30, 2017 10:59pm sacubitril 24 mg / valsartan 26 mg oral tablet (20 sources) Angiotensin 2 Receptor Pato Start: 11-19-2022 End: 01-12-2023 take 1 tablet by mouth twice daily Sacubitril-Valsartan (Entresto) 24-26 mg tablet Active 1 TAB PO Twice daily 60 November 18, 2022 11:00pm spironolactone 25 mg oral tablet (20 sources) Aldosterone Antagonist Start: 07-14-2022 End: 05-21-2023 take 1 tablet by mouth once daily in the morning Spironolactone 25 mg tablet Active 25 MG PO Every morning November 12, 2022 11:00pm Start: 12-31-2020 End: 11-13-2022 Spironolactone 25 mg Tablet Discontinued 12.5 MG PO Daily December 30, 2020 11:00pm November 13, 2022 7:36am Start: 12-31-2020 End: 11-13-2022 take 12.5 mg [...] a day for 1 day(s) Apr, Not-Taking Completed/Discontinued Medications Medication Drug Class(es) Dates Sig (Normalized) Sig (Original) citalopram 40 mg oral tablet (12 sources) Serotonin Reuptake Inhibitor Start: 02-18-2017 End: 08-23-2019 take 1 tablet by mouth at bedtime Citalopram 40 mg Tablet Discontinued 40 MG PO Bedtime February 18, 2017 12:00am August 23, 2019 12:05pm CeleXA 40 MG Ora l Tablet Quantity: 0 Refills: 0 Ordered: 28-Sep-2017 DO Active clindamycin 300 mg oral capsule (10 sources) Lincosamide Antibacterial Start: 06-18-2018 End: 06-25-2018 take 1 capsule by mouth every twelve hours Clindamycin Hcl 300 mg capsule Discontinued 300 MG PO Q12H 14 7 June 17, 2018 11:00pm June 23, 2018 11:00pm June 24, 2018 11:02pm clopidogrel 75 mg oral tablet (20 sources) P2Y12 Platelet Inhibitor Start: 12-31-2020 End: 11-13-2022 take 1 tablet by mouth once daily Clopidogrel 75 mg Tablet Discontinued 75 MG PO Daily December 30, 2020 11:00pm November 13, 2022 7:38am Start: 12-14-2017 End: 08-23-2019 take 1 tablet by mouth once daily Clopidogrel 75 mg Tablet Discontinued 75 MG PO Daily December 13, 2017 11:00pm August 23, 2019 12:05pm Start: 06-30-2017 End: 09-03-2017 take 1 tablet by mouth once daily Clopidogrel (Plavix) 75 mg Tablet Discontinued 75 MG PO Daily June 29, 2017 11:00pm September 03, 2017 11:27am diazePAM 5 mg oral tablet (10 sources) Benzodiazepine Start: 02-18-2017 End: 06-30-2017 take 1 tablet by mouth at bedtime Diazepam 5 mg Tablet Discontinued 5 MG PO Bedtime February 18, 2017 12:00am June 30, 2017 10:57pm 0.5 ml dulaglutide 3 mg/ml auto-injector (20 sources) GLP-1 Receptor Agonist Start: 11-13-2022 End: 05-01-2023 Dulaglutide (Trulicity) 1.5 mg/0.5 mL pen injector Discontinued 1.5 MG SUBCUT every week November 12, 2022 11:00pm May 01, 2023 10:56am wednesday inject 3 mg by subcu taneous injection every week Trulicity 3 MG/0.5ML 3mg Subcutaneous weekly for 28 days Active empagliflozin 10 mg oral tablet (10 sources) Sodium-Glucose Cotransporter 2 Inhibitor Start: 06-26-2020 End: 11-13-2022 take 1 tablet by mouth once daily Empagliflozin (Jardiance) 10 mg Tablet Discontinued 10 MG PO Daily June 25, 2020 11:00pm November 13, 2022 7:38am 1 ml enoxaparin sodium 100 mg/ml prefilled [...] Reuptake Inhibitor Start: 09-28-2022 End: 05-01-2023 take 1 tablet by mouth once daily in the morning Escitalopram Oxalate 5 mg tablet Discontinued 5 MG PO Every morning November 12, 2022 11:00pm May 01, 2023 10:56am gabapentin 100 mg oral capsule (10 sources) Anti-epileptic Agent Start: 02-18-2017 End: 07-01-2017 take 1 capsule by mouth three times daily Gabapentin 100 mg Capsule Discontinued 100 MG PO Three times daily February 18, 2017 12:00am June 30, 2017 11:00pm glimepiride 1 mg oral tablet (20 sources) Sulfonylurea Start: 12-14-2017 End: 06-26-2020 take 2 tablets by mouth once daily Glimepiride 1 mg Tablet Discontinued 2 MG PO Daily December 13, 2017 11:00pm June 26, 2020 9:16am Start: 12-14-2017 End: 06-26-2020 take 2 mg by mouth once daily Glimepiride Discontinued 2 MG PO Daily December 14, 2017 12:00am June 26, 2020 10:16am Glimepiride Not- Taking take 1 tablet by ramez th once daily Glimepiride 1 MG Oral Tablet TAKE 1 TABLET DAILY. Quantity: 0 Refills: 0 Ordered: 21-Oct-2017 DO Active Insulin Detemir U-100 (Levem ir Flexpen) 100 unit/mL (3 mL) insulin pen (20 sources) Start: 01-24-2024 End: 01-26-2024 Insulin Detemir U-100 (Levem ir Flexpen) 100 unit/mL (3 mL) insulin pen Discontinued 22 UNIT SUBCUT Twice daily 42 January 24, 2024 10:13pm January 26, 2024 3:50pm Start: 01-21-2024 End: 01-24-2024 Insulin Detemir U-100 (Levem ir Flexpen) 100 unit/mL (3 mL) insulin pen Discontinued 22 UNIT SUBCUT Twice daily January 21, 2024 3:23pm January 24, 2024 10:13pm Start: 12-27-2023 End: 01-21-2024 Insulin Detemir U-100 (Levem ir Flexpen) 100 unit/mL (3 mL) insulin pen Discontinued 22 UNIT SUBCUT Twice daily December 27, 2023 9:31am January 21, 2024 3:24pm Start: 12-27-2023 End: 12-27-2023 Insulin Detemir U-100 (Levem ir Flexpen) 100 unit/mL (3 mL) insulin pen Discontinued 22 UNIT SUBCUT Twice daily December 27, 2023 9:30am December 27, 2023 9:31am Start: 11-15-2023 End: 12-27-2023 Insulin Detemir U-100 (Levem ir Flexpen) 100 unit/mL (3 mL) insulin pen Discontinued 22 UNIT SUBCUT Twice daily November 15, 2023 8:02am December 27, 2023 9:30am Start: 11-15-2023 Insulin Detemi r U-100 (Levemir Flexpen) 100 unit/mL (3 mL) insulin pen Active 22 UNIT SUBCUT Twice daily November 15, 2023 9:02am Start: 08-06-2023 End: 11-15-2023 Insulin Detemir U-100 (Levem ir Flexpen) 100 unit/mL (3 mL) insulin pen Discontinued 20 UNIT SUBCUT Twice daily August 06, 2023 9:50am November 15, 2023 8:03am Start: 08-06-2023 End: 11-15-2023 Insulin Detemir U-100 [...] SUBCUT Twice daily May 01, 2023 10:50am August 06, 2023 9:50am Start: 05-01-2023 End: 08-06-2023 Insulin Detemir U-100 [...] Daily at bedtime November 13, 2022 12:00am lisinopril 2.5 mg oral tablet (20 sources) Angiotensin Converting Enzyme Inhibitor Start: 12-31-2020 End: 11-13-2022 take 1 tablet by mouth once daily Lisinopril 2.5 mg Tablet Discontinued 2.5 MG PO Daily December 30, 2020 11:00pm November 13, 2022 7:38am Start: 02-18-2017 End: 06-30-2017 take 0.5 tablet by mouth once daily Lisinopril 5 mg Tablet Discontinued 0.5 TAB PO Daily February 18, 2017 12:00am June 30, 2017 10:58pm metFORMIN (20 sources) Biguanide Start: 09-27-2023 End: 11-15-2023 Metformin 850 mg tablet Disc ontinued 0 .ROUTE .COMPLEX 180 September 27, 2023 8:35am November 15, 2023 7:47am TAKE 1 TABLET TWICE A DAY Start: 09-27-2023 End: 11-15-2023 Metformin Discontinued 0 .RO ELY SHOSHONE .COMPLEX 180 September 27, 2023 9:35am November 15, 2023 8:47am TAKE 1 TABLET TWICE A DAY Start: 09-27-2023 Metformin Acti ve 0 .ROUTE .COMPLEX 180 September 27, 2023 9:35am TAKE 1 TABLET TWICE A DAY Start: 02-20-2020 End: 09-27-2023 take 1 tablet by mouth twice daily Metformin 850 mg tablet Discontinued 850 MG PO Twice daily November 12, 2022 11:00pm September 27, 2023 8:35am Start: 12-14-2017 End: 11-13-2022 Metformin 1,000 mg Tablet Discontinued 850 MG PO Twice daily December 13, 2017 11:00pm November 13, 2022 7:35am With Meals Start: 12-14-2017 End: 11-13-2022 take 850 mg by mouth twice daily at mealtime Metformin Discontinued 850 MG PO Twice daily December 14, 2017 12:00am November 13, 2022 8:35am With Meals Start: 02-18-2017 End: 12-14-2017 take 1 tablet by mouth twice daily Metformin 500 mg Tablet Discontinued 500 MG PO Twice daily February 18, 2017 12:00am December 14, 2017 2:10pm take 1 tablet by ramez th every [...] Reductase Inhibitor Start: 018 End: 021 take 1 tablet by mouth once daily Pravastatin 40 mg tablet Discontinued 40 MG PO Daily June 30, 2017 11:00pm December 31, 2020 6:38am Start: 02-18-2017 End: 02-19-2017 Pravastatin 40 mg Tablet Discontinued 20 MG PO Bedtime February 18, 2017 12:00am February 19, 2017 11:09am Start: 02-18-2017 End: 02-19-2017 take 20 mg by mouth at bedtime Pravastatin Discontinue d 20 MG PO Bedtime February 18, 2017 1:00am February 19, 2017 12:09pm raNITIdine 150 mg oral tablet (20 sources) Histamine-2 Receptor Antagonist Start: 12-14-2017 End: 08-23-2019 take 1 tablet by mouth three times daily Ranitidine Hcl 150 mg Tablet Discontinued 150 MG PO Three times daily December 13, 2017 11:00pm August 23, 2019 12:05pm Start: 02-18-2017 End: 12-14-2017 Ranitidine Hcl (Zantac 75) 7 5 mg Tablet Discontinued 150 MG PO Twice daily February 18, 2017 12:00am December 14, 2017 2:22pm Start: 02-18-2017 End: 12-14-2017 Ranitidine Hcl (Zantac [...] Discontinued (Ineffective) ticagrelor 90 mg oral tablet (10 sources) Start: 02-18-2017 End: 06-30-2017 take 1 tablet by mouth twice daily Ticagrelor (Brilinta) 90 mg Tablet Discontinued 90 MG PO Twice daily February 18, 2017 12:00am June 30, 2017 10:59pm triamcinolone acetonide 40 mg/ml injectable suspension (11 [...] 24hr Discontinued 150 MG PO Daily August 22, 2019 11:00pm November 13, 2022 7:39am Start: 08-23-2019 End: 11-13-2022 take 1 capsule by mouth once daily at bedtime Venlafaxine 37.5 mg capsule,extended release 24hr Discontinued 37.5 MG PO Daily at bedtime August 22, 2019 11:00pm November 13, 2022 7:39am Effexor Not-Taki ng Venlafaxine HCl ER Not-Taking warfarin sodium 1 mg oral tablet (20 sources) Vitamin K Antagonist Start: 01-07-2023 warfarin (Coumadin) 2 mg tablet Indications: Paroxysmal atrial fibrillation (Multi) Take 1 tablet (2 mg) by mouth see administration instructions. As directed by the [facility] coumadin clinic. Ok to resume at previous dose on 01/09/23 01/07/2023 Active Start: 12-31-2020 End: 05-01-2023 Warfarin 1 mg tablet Discont inued 2 MG PO As Directed May 01, 2023 10:55am May 01, 2023 10:57am Take 3 tablets ( 3MG ) today and tomorrow. (Wednesday and Wednesday ) resume taking 2 tablet ( 2 mg ) then follow the Coumadin clinic at [place] instructions to adjust dosing based on the blood test. Start: 12-31-2020 End: 05-01-2023 Warfarin Discontinued 2 MG P O As Directed May 01, 2023 11:55am May 01, 2023 11:57am Take 3 tablets ( 3MG ) today and tomorrow. (Wednesday and Wednesday ) resume taking 2 tablet ( 2 mg ) then follow the Coumadin clinic at [place] instructions to adjust dosing based on the blood test. Start: 06-13-2018 End: 12-31-2020 take 2 tablets by mouth once daily Warfarin 1 mg Tablet Discontinued 2 MG PO Daily June 12, 2018 11:00pm December 31, 2020 6:38am Start: 06-13-2018 End: 06-16-2018 take 1 g by mouth every week Warfarin 1 mg Tablet Disc ontinued 1 GM PO every week June 12, 2018 11:00pm June 16, 2018 8:24pm Start: 06-13-2018 End: 12-31-2020 take 2 mg by mouth once daily Warfarin Discontinued 2 MG PO Daily June 13, 2018 12:00am December 31, 2020 7:38am Start: 06-13-2018 End: 06-16-2018 take 1 g by mouth every week Warfarin Discontinued 1 G M PO every week June 13, 2018 12:00am June 16, 2018 9:24pm Warfarin Sodium 2 mg TAKE 3 TABLETS DAILY Active Problems Active Problems Problem Classification Problem Date [...] fibrillation] Onset: 3 Resolved: 4 12-28-2020 Chronic Comment on above: AICD/BIV pacemaker Chronic obstructive pulmonary disease and bronchiectasis (20 sources) Mucopurulent chronic bronchitis; Translations: [Mucopurulent chronic bronchitis] Onset: 4 Resolved: 0 Chronic Coagulation and hemorrhagic disorders (6 sources) Blood coagulation disorder; Translations: [Coagulation defect, unspecified] 06-17-2018 Chronic Complication of device; implant or graft (5 sources) Arteriosclerosis of coronary artery bypass graft; Translations: [Atherosclerosis of coronary artery bypass graft(s) without angina pectoris] Onset: 3 07-13-2023 Chronic Conditions associated with dizziness or vertigo (20 sources) Dizziness and giddiness; Translations: [Benign paroxysmal positional vertigo] Onset: 3 Episodic Conduction disorders (20 sources) Right bundle branch block; Translations: [Right bundle branch block] Onset: 3 Resolved: 4 12-28-2020 Chronic Congestive heart failure; nonhypertensive (20 sources) Chronic systolic heart failure; Translations: [Chronic systolic (congestive) heart failure] Onset: 3 Chronic Coronary atherosclerosis and other heart disease (20 sources) Coronary atherosclerosis; Translations: [Coronary atherosclerosis of [place] coronary artery] Onset: 8 06-17-2021 Chronic Delirium, [...] sources) Long-term current use of insulin; Translations: [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] 05-01-2023 Episodic Other aftercare (5 sources) Encounter for therapeutic drug level monitoring; Translations: [ENC THERAPEUTC DRUG LEVL MONITORING] Onset: 3 Episodic Other aftercare (3 sources) Long-term current use of drug therapy; Translations: [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 (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) drug therapy] Episodic Other aftercare (20 sources) Taking high risk medication; Translations: [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 (current) drug therapy] Onset: 3 12-30-2022 Episodic [...] right lower leg] Episodic Other gastrointestinal disorders (2 sources) Irritable bowel syndrome; Translations: [Irritable bowel syndrome without diarrhea] 10-29-2023 Chronic Other gastrointestinal disorders (2 sources) Irritable bowel syndrome without diarrhea; Translations: [Irritable [...] nail, subsequent encounter] Episodic Transient cerebral ischemia (10 sources) Cerebral ischemia; Translations: [Transient cerebral ischemic [...] Date Documented Da te Episodic/Chronic Administrative/social admission (20 sources) Follow-up status; Translations: [Other specified counseling] Onset: 4 05-21-2023 Episodic Bacterial infection; unspecified site (6 sources) Bacterial infectious disease; Translations: [Bacterial infection, unspecified, in conditions classified elsewhere and of unspecified site] Onset: 6 Episodic Complication of device; implant or graft (20 sources) Coronary stent occluded; Translations: [Other complications due to other cardiac device, implant, and graft] Onset: 3 12-30-2022 Episodic Coronary atherosclerosis and other heart disease [...] 05-21-2023 Episodic Other aftercare (12 sources) Other half-way (current) drug therapy; Translations: [OTH CORRECTION CURRENT DRUG THERAPY] Onset: 3 Episodic Other aftercare (9 sources) 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 (current) use of insulin; Translations: [Long-term (current) use of insulin] Onset: 3 Episodic Other aftercare (3 sources) terminal worker (current) use of anticoagulants; Translations: [MEDICAL LABORATORY ASSISTANT CURRNT USE ANTICOAGULANTS] Onset: 3 Episodic Other aftercare (1 source) 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 (current) use of aspirin; Translations: [CORRECTION CURRENT USE OF ASPIRIN] Onset: 2 Episodic Other aftercare (1 source) terminal worker (current) use of oral hypoglycemic drugs; Translations: [MEDICAL LABORATORY ASSISTANT USE ORAL HYPOGLYCEMIC DX] Onset: 2 Episodic Other aftercare (1 source) 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 (current) use of antithrombotics/antipl atelets; Translations: [CORRECTION ANTITHROMBOT/ANTIPLATL ETS] Onset: 2 Episodic Other aftercare (6 sources) Long-term current use of anticoagulant; Translations: [...] and Corynebacterium diphtheriae antigens (medicinal product); Translations: [Ooxawefyby-udemjxq-qc rtussis, combined [DTP] [DtaP]] Onset: 8 Unclassified (3 sources) Long-term current use of drug therapy; Translations: [Long-term (current) use of other medications] Onset: 7 Unclassified (12 sources) Onset: 3 Resolved: 4 01-12-2023 Viral infection (20 sources) Disease caused by 2019-nCoV; Translations: [COVID-19] Results Test Name Value Interpretation Reference Range Facility ECG 12 Leadon 01-12-2024 AV sequential pacema ker, T wave abnormality, abnormal ECG [facility] Work Phone: [facility] Work Phone: Cholesterol in LDL Calc [Mas s/Vol]on 10-08-2023 Cholesterol in LDL [Mass/Vol] 31.0 mg/dL [facility] Comment on above: <100 mg/dl [id number] 0-129 mg/dl NEAR OR ABOVE [id number] mg/dl BORDERLINE [id number] mg/dl HIGH>190 mg/dl VERY HIGH Cholesterol in VLDL Calc [Ma ss/Vol]on 10-08-2023 Cholesterol in VLDL [Mass/Vol] 25.4 mg/dL [facility] Estimated glomerular filtrat ion rate (GFR) non- Americanon 10-08-2023 GFR/1.73 sq M.predicted among non-blacks MDRD (S/P/Bld) [Vol rate/Area] 56 mL/min/{1.73_m2} Low >=60 [facility] Laboratory - Chemistry and C hemistry - challengeon 10-08-2023 AST [Catalytic activity/Vol] 29 U/L 15-37 [facility] Calcium [Mass/Vol] 8.2 mg/dL Low 8.5-10.1 [facility] Chloride [Moles/Vol] 103 mmol/L 98-107 [facility] Cholesterol [Mass/Vol] 83 mg/dL <=200 [facility] Cholesterol in HDL [Mass/Vol] 27 mg/dL Low 40-60 [facility] Comment on above: > or =60 mg/dl - LOW CARDIOVASCULAR RISK<40 mg/dl - HIGH CARDIOVASCULAR RISK CO2 [Moles/Vol] 26.0 mmol/L 21.0-32.0 [facility] Creatinine [Mass/Vol] 1.29 mg/dL 0.70-1.30 [facility] GFR/1.73 sq M.predicted MDRD (S/P/Bld) [Vol rate/Area] mL/min/{1.73_m2} >=60 [facility] Glucose [Mass/Vol] 178 mg/dL High 74-106 [facility] Potassium [Moles/Vol] 4.4 mmol/L 3.5-5.1 [facility] Sodium [Moles/Vol] 138 mmol/L 136-145 [facility] Triglyceride [Mass/Vol] 127 mg/dL <=150 [facility] TSH Qn 5.055 m[IU]/L High 0.358-3.74 0 [facility] Urea nitrogen [Mass/Vol] 19.0 mg/dL High 7.0-18.0 [facility] Urea nitrogen/Creatinine [Mass ratio] 14.7 mg/mg [facility] Serum or plasma anion gap de terminationon 10-08-2023 Anion gap [Moles/Vol] 13.4 mmol/L [facility] Serum or plasma total choles terol/high density lipoprotein (HDL) cholesterol mass quin 10-08-2023 Cholesterol.total/Chol esterol in HDL [Mass ratio] 3.1 {ratio} [facility] Comment on above: 3.3 - 4.4 LOW RISK4. 4 - 7.1 AVERAGE RISK7.1 - 11.0 MODERATE RISK>11.0 HIGH RISK Estimated glomerular filtrat ion rate (GFR) non- Americanon 09-15-2023 GFR/1.73 sq M.predicted among non-blacks MDRD (S/P/Bld) [Vol rate/Area] mL/min/{1.73_m2} >=60 [facility] Laboratory - Chemistry and C hemistry - challengeon 09-15-2023 Calcium [Mass/Vol] 8.3 mg/dL Low 8.5-10.1 [facility] Chloride [Moles/Vol] 104 mmol/L 98-107 [facility] CO2 [Moles/Vol] 25.2 mmol/L 21.0-32.0 [facility] Creatinine [Mass/Vol] 1.15 mg/dL 0.70-1.30 [facility] GFR/1.73 sq M.predicted MDRD (S/P/Bld) [Vol rate/Area] mL/min/{1.73_m2} >=60 [facility] Glucose [Mass/Vol] 240 mg/dL High 74-106 [facility] Potassium [Moles/Vol] 4.4 mmol/L 3.5-5.1 [facility] Sodium [Moles/Vol] 138 mmol/L 136-145 [facility] Urea nitrogen [Mass/Vol] 15.0 mg/dL 7.0-18.0 [facility] Urea nitrogen/Creatinine [Mass ratio] 13.0 mg/mg [facility] Serum or plasma anion gap de terminationon 09-15-2023 Anion gap [Moles/Vol] 13.2 mmol/L [facility] No Panel Informationon 09-02 Levetiracetam (Keppra) Level 13.1 ug/mL 10.0-40.0 [facility] Comment on above: Performed at: [facility] Lucio pennington [address] [id number] Director: Julia Arrington MD, Phone: [phone] TRANSTHORACIC ECHO (TTE) COM PLETEon 08-24-2023 TRANSTHORACIC ECHO (TTE) COMPLETE [address], [address] [address] TRANSTHORACIC ECHOCARDIOGRAM REPORT Patient Name: LESLEY Skelton INGRID Reading Physician: [id number] Errol Huber MD Study Date: 08/24/2023 Ordering Provider: [id number] CARMEN HA MRN/PID: [id number] Fellow: Nurse: Date of /Age: 11 1955 Cooler Servicer: Lesley Zuniga years Gender: M Additional Staff: Height: 175.26 cm Admit Date: 08/24/2023 Weight: 109.32 kg Admission Status: Outpatient BSA / BMI: 2.24 m2 / 35.59 Department Location: [facility] Heart kg/m2 [facility] Blood Pressure: 120 /60 mmHg Study Type: TRANSTHORACIC ECHO (TTE) COMPLETE Diagnosis/ICD: Shortness of breath-R06.02 Indication: SOB CPT Codes: Echo Limited-39474 Patient History: Smoker: Current. Diabetes: Yes Pacer/Defib: [...] Wiliam: 0.7 (more content not included)... [facility] Basophils Auto (Bld) [#/Vol] on 08-02-2023 Basophils (Bld) [#/Vol] 0.1 10 3/uL 0.0-0.1 [facility] Basophils/100 WBC Auto (Bld) on 08-02-2023 Basophils/100 WBC (Bld) 0.8 % 0.2-2.0 [facility] Cholesterol in LDL Calc [Mas s/Vol]on 08-02-2023 Cholesterol in LDL [Mass/Vol] 31.0 mg/dL [facility] Comment on above: <100 mg/dl [id number] 0-129 mg/dl NEAR OR ABOVE [id number] mg/dl BORDERLINE EBSS335-309 mg/dl HIGH>190 mg/dl VERY HIGH Cholesterol in VLDL Calc [Ma ss/Vol]on 08-02-2023 Cholesterol in VLDL [Mass/Vol] 25.2 mg/dL [facility] Eosinophils/100 WBC Auto (Bl d)on 08-02-2023 Eosinophils/100 WBC (Bld) 6.2 % 0.9-7.0 [facility] Erythrocyte distribution wid th Auto (RBC) [Ratio]on 08-02-2023 Erythrocyte distribution width (RBC) [Ratio] 18.5 % High 11.0-15.0 [facility] Estimated glomerular filtrat ion rate (GFR) non- Americanon 08-02-2023 GFR/1.73 sq M.predicted among non-blacks MDRD (S/P/Bld) [Vol rate/Area] mL/min/{1.73_m2} >=60 [facility] Globulin Calc (S) [Mass/Vol] on 08-02-2023 Globulin (S) [Mass/Vol] 4.0 g/dL [facility] Glucose mean value [Mass/vol ume] in Blood Estimated from glycated hemoglobinon 08-02-2023 Average glucose Estimated from glycated hemoglobin (Bld) [Mass/Vol] 258 mg/dL [facility] Hematocrit Auto (Bld) [Volum e fraction]on 08-02-2023 Hematocrit (Bld) [Volume fraction] 37.2 % Low 42.0-54.0 [facility] Hemoglobin [Mass/volume] in Bloodon 08-02-2023 Hemoglobin (Bld) [Mass/Vol] 11.3 g/dL Low 14.0-18.0 [facility] Laboratory - Chemistry and C hemistry - challengeon 08-02-2023 Albumin [Mass/Vol] 3.4 g/dL 3.4-5.0 [facility] ALP [Catalytic activity/Vol] 99 U/L 46-116 [facility] ALT [Catalytic activity/Vol] 53 U/L 16-63 [facility] AST [Catalytic activity/Vol] 26 U/L 15-37 [facility] Bilirubin [Mass/Vol] 0.5 mg/dL 0.2-1.0 [facility] Calcium [Mass/Vol] 9.0 mg/dL 8.5-10.1 [facility] Chloride [Moles/Vol] 104 mmol/L 98-107 [facility] Cholesterol [Mass/Vol] 85 mg/dL <=200 [facility] Cholesterol in HDL [Mass/Vol] 29 mg/dL Low 40-60 [facility] Comment on above: > or =60 mg/dl - LOW CARDIOVASCULAR RISK<40 mg/dl - HIGH CARDIOVASCULAR RISK CO2 [Moles/Vol] 27.0 mmol/L 21.0-32.0 [facility] Creatinine [Mass/Vol] 1.08 mg/dL 0.70-1.30 [facility] GFR/1.73 sq M.predicted MDRD (S/P/Bld) [Vol rate/Area] mL/min/{1.73_m2} >=60 [facility] Glucose [Mass/Vol] 199 mg/dL High 74-106 [facility] Potassium [Moles/Vol] 4.2 mmol/L 3.5-5.1 [facility] Protein [Mass/Vol] 7.4 g/dL 6.4-8.2 [facility] Sodium [Moles/Vol] 138 mmol/L 136-145 [facility] Triglyceride [Mass/Vol] 126 mg/dL <=150 [facility] Urea nitrogen [Mass/Vol] 20.0 mg/dL High 7.0-18.0 [facility] Urea nitrogen/Creatinine [Mass ratio] 18.5 mg/mg [facility] Laboratory - Hematology and Cell countson 08-02-2023 HbA1c (Bld) [Mass fraction] 10.6 % High 4.5-6.2 [facility] Comment on above: ADA RECOMMENDED LIMI T 4.0 - 6.0ADA THERAPEUTIC TARGET < 7.0ACTION SUGGESTED> 7.0 Immature granulocytes/100 WBC (Bld) 0.2 % 0.0-0.5 [facility] Leukocytes [#/volume] correc lily for nucleated erythrocytes in Blood by Automated counon 08-02-2023 WBC corrected for nucl RBC Auto (Bld) [#/Vol] 8.2 10 3/uL 4.0-11.0 [facility] Lymphocytes Auto (Bld) [#/Vo l]on 08-02-2023 Lymphocytes (Bld) [#/Vol] 3.0 10 3/uL 1.2-3.8 [facility] Lymphocytes/100 WBC Auto (Bl d)on 08-02-2023 Lymphocytes/100 WBC (Bld) 36.4 % 20.5-60.0 [facility] MCH Auto (RBC) [Entitic mass ]on 08-02-2023 MCH (RBC) [Entitic mass] 24.5 pg Low 25.9-34.0 [facility] MCHC Auto (RBC) [Mass/Vol]on 08-02-2023 MCHC (RBC) [Mass/Vol] 30.4 g/dL 29.9-35.2 [facility] MCV Auto (RBC) [Entitic vol] on 08-02-2023 MCV (RBC) [Entitic vol] 80.5 fL 80.0-94.0 [facility] Microalbumin [Mass/volume] i n Urineon 08-02-2023 Albumin DL <= 20 mg/L (U) [Mass/Vol] 15.5 mg/dL <=30.0 [facility] Monocytes Auto (Bld) [#/Vol] on 08-02-2023 Monocytes (Bld) [#/Vol] 0.9 10 3/uL High 0.3-0.8 [facility] Monocytes/100 WBC Auto (Bld) on 08-02-2023 Monocytes/100 WBC (Bld) 10.3 % 1.7-12.0 [facility] Neutrophils Auto (Bld) [#/Vo l]on 08-02-2023 Neutrophils (Bld) [#/Vol] 3.8 10 3/uL 1.4-6.5 [facility] Neutrophils/100 WBC Auto (Bl d)on 08-02-2023 Neutrophils/100 WBC (Bld) 46.1 % 43.0-75.0 [facility] No Panel Informationon 08-01 Eosinophils # (Auto) 0.5 10 3/uL 0.0-0.7 [facility] Immature Granulocyte # (Auto) 0.02 10 3/uL 0.00-0.03 [facility] Prostate Specific Antigen Screen 0.49 ng/mL <=4.00 [facility] Platelet mean volume Auto (B ld) [Entitic vol]on 08-02-2023 Platelet mean volume (Bld) [Entitic vol] 11.3 fL 9.5-13.5 [facility] Platelets Auto (Bld) [#/Vol] on 08-02-2023 Platelets (Bld) [#/Vol] 245 10 3/uL 150-450 [facility] RBC Auto (Bld) [#/Vol]on RBC (Bld) [#/Vol] 4.62 10 6/uL Low 4.70-6.10 [facility] Serum or plasma albumin/glob ulin mass ratioon 08-02-2023 Albumin/Globulin [Mass ratio] 0.9 {ratio} [facility] Serum or plasma anion gap de terminationon 08-02-2023 Anion gap [Moles/Vol] 11.2 mmol/L [facility] Serum or plasma total choles terol/high density lipoprotein (HDL) cholesterol mass quin 08-02-2023 Cholesterol.total/Chol esterol in HDL [Mass ratio] 2.9 {ratio} [facility] Comment on above: 3.3 - 4.4 LOW RISK4. 4 - 7.1 AVERAGE RISK7.1 - 11.0 MODERATE RISK>11.0 HIGH RISK ECG 12 Leadon 07-13-2023 Atrial fibrillation, AV sequential pacing, PVCs, abnormal ECG [facility] Work Phone: XR Chest 2 Viewson 4 These images are not reportable by radiology and will not be interpreted by Radiologists. IMAGING XR Chest 2 Viewson 4 1. No evidence of ac [place] cardiopulmonary process. MACRO: None Signed by: Roel Strickland 05/22/2023 10:28 AM Dictation workstation: [id number] MMODAL Interpreted By: Roel Blount, STUDY: XR CHEST 2 VIEWS; 05/21/2023 12:44 pm INDICATION: Signs/Symptoms:lead placement. COMPARISON: 01/26/2023 ACCESSION NUMBER(S): [id number] ORDERING CLINICIAN: CARMEN HA FINDINGS: Left-sided pacemaker in place. Median sternotomy wires. CARDIOMEDIASTINAL SILHOUETTE: Cardiomediastinal silhouette is normal in size and configuration. LUNGS: Lungs are clear. ABDOMEN: No remarkable upper abdominal findings. BONES: No acute osseous changes. MMODAL Roel Strickland MD - 05/22/2023 Interpreted By: Roel Strickland, STUDY: XR CHEST 2 VIEWS; 05/21/2023 12:44 pm INDICATION: Signs/Symptoms:lead placement. COMPARISON: 01/26/2023 ACCESSION NUMBER(S): [id number] ORDERING CLINICIAN: CARMEN HA FINDINGS: Left-sided pacemaker in place. Median sternotomy wires. CARDIOMEDIASTINAL SILHOUETTE: Cardiomediastinal silhouette is normal in size and configuration. LUNGS: Lungs are clear. ABDOMEN: No remarkable upper abdominal findings. BONES: No acute osseous changes. IMPRESSION: 1. No evidence of acute cardiopulmonary process. MACRO: None Signed by: Roel Strickland 05/22/2023 10:28 AM Dictation workstation: [id number] [facility] Work Phone: XR Chest 2 ViewsOrdered By: Roel Strickland on 05-22-2023 [facility] Work Phone: ECG 12 lead (Clinic Performe d)on 05-21-2023 [facility] Work Phone: XR CHEST 2 VIEWSon 4 XR CHEST 2 VIEWS Interpreted By: Roel Blount, STUDY: XR CHEST 2 VIEWS; 05/21/2023 12:44 pm INDICATION: Signs/Symptoms:lead placement. COMPARISON: 01/26/2023 ACCESSION NUMBER(S): [id number] ORDERING CLINICIAN: CARMEN HA FINDINGS: Left-sided pacemaker in place. Median sternotomy wires. CARDIOMEDIASTINAL SILHOUETTE: Cardiomediastinal silhouette is normal in size and configuration. LUNGS: Lungs are clear. ABDOMEN: No remarkable upper abdominal findings. BONES: No acute osseous changes. IMPRESSION: 1. No evidence of acute cardiopulmonary process. MACRO: None Signed by: Roel Strickland 05/22/2023 10:28 AM Dictation workstation: [id number] Normal [facility] XR Chest 2 Viewson 4 Radiology Study observation (narrative) [facility] Work Phone: Aspartate Amino Transferaseo n 03-24-2023 AST [Catalytic activity/Vol] 34 U/L Normal 1339 [facility] Comment on above: Performed By: #### C REAT, LYTES, CBC, PP, LIPID, BUN #### [facility] [address] [place] [address] [place] Aspartate aminotransferase [ Enzymatic activity/volume] in Serum or PlasmaOrdered By: Franck Posey on 03-24-2023 AST [Catalytic activity/Vol] 34 U/L 39 [facility] Basic Metabolic Panelon Anion gap [Moles/Vol] 11.0 mmol/L Normal 6.0-15.0 [facility] Comment on above: Performed By: #### C REAT, LYTES, CBC, PP, LIPID, BUN #### [facility] [address] [place] [address] [place] Calcium [Mass/Vol] 9.5 mg/dL Normal 8.6-10.3 [facility] Comment on above: Performed By: #### C REAT, LYTES, CBC, PP, LIPID, BUN #### [facility] [address] [place] [id number] [place] Chloride [Moles/Vol] 106 mmol/L Normal 98-107 [facility] Comment on above: Performed By: #### C REAT, LYTES, CBC, PP, LIPID, BUN #### [facility] [address] [place] [id number] [place] CO2 [Moles/Vol] 28.4 mmol/L Normal 21.0-31.0 [facility] Comment on above: Performed By: #### C REAT, LYTES, CBC, PP, LIPID, BUN #### [facility] [address] Creatinine [Mass/Vol] 1.22 mg/dL Normal 0.70-1.30 [facility] Comment on above: Performed By: #### C REAT, LYTES, CBC, PP, LIPID, BUN #### [facility] [address] [place] [address] [place] GFR/1.73 sq M.predicted MDRD (S/P/Bld) [Vol rate/Area] mL/min/{1.73_m2} Normal [facility] Comment on above: Performed By: #### C REAT, LYTES, CBC, PP, LIPID, BUN #### [address] Glucose [Mass/Vol] 179 mg/dL High 70-100 [facility] Comment on above: Result Comment: [facility] Glucose Reference Range is dependent on time and content of last meal. Glucose of more than 200 mg/dL in a nonstressed, ambulatory subject supports the diagnosis of Diabetes Mellitus. ADA recommended reference range Performed By: #### C REAT, LYTES, CBC, PP, LIPID, BUN #### [address] Potassium [Moles/Vol] 5.4 mmol/L High 3.5-5.1 [facility] Comment on above: Performed By: #### C REAT, LYTES, CBC, PP, LIPID, BUN #### [facility] [address] [place] [address] [place] Sodium [Moles/Vol] 140 mmol/L Normal 136-145 [facility] Comment on above: Performed By: #### C REAT, LYTES, CBC, PP, LIPID, BUN #### [facility] [address] Urea nitrogen [Mass/Vol] 17 mg/dL Normal 7-25 [facility] Comment on above: Performed By: #### C REAT, LYTES, CBC, PP, LIPID, BUN #### [facility] [address] Calcium [Mass/volume] in Ser um or PlasmaOrdered By: Franck Posey on 03-24-2023 Calcium [Mass/Vol] 9.5 mg/dL 8.6-10.3 [facility] Carbon dioxide, total [Moles /volume] in Serum or PlasmaOrdered By: Franck Posey on 03-24-2023 CO2 [Moles/Vol] 28.4 mmol/L 21.0-31.0 [facility] Chloride [Moles/volume] in S radha or PlasmaOrdered By: Franck Posey on 03-24-2023 Chloride [Moles/Vol] 106 mmol/L 98-107 [facility] Creatinine [Mass/volume] in Serum or PlasmaOrdered By: Franck Posey on 03-24-2023 Creatinine [Mass/Vol] 1.22 mg/dL 0.70-1.30 [facility] Glucose [Mass/volume] in Ser um or PlasmaOrdered By: Franck Posey on 03-24-2023 Glucose [Mass/Vol] 179 mg/dL 70-100 [facility] Comment on above: ADA recommended refe rence rangeRandom Glucose Reference Range is dependent on time and content of last meal. Glucose of more than 200 mg/dL in a nonstressed, ambulatory subject supports the diagnosis of Diabetes Mellitus. No Panel InformationOrdered By: Franck Posey on 03-24-2023 Estimated GFR (CKD-EPI) > 60.0 mL/Min [facility] Creatinine Clearance (Chem N/A [facility] Potassium [Moles/volume] in Serum or PlasmaOrdered By: Franck Posey on 03-24-2023 Potassium [Moles/Vol] 5.4 mmol/L 3.5-5.1 [facility] Serum or plasma anion gap de terminationOrdered By: Franck Posey on 03-24-2023 Anion gap [Moles/Vol] 11.0 mmol/L 6.0-15.0 [facility] Sodium [Moles/volume] in Ser um or PlasmaOrdered By: Franck Posey on 03-24-2023 Sodium [Moles/Vol] 140 mmol/L 136-145 [facility] Thyroid Stimulating Hormoneo n 03-24-2023 TSH Qn 5.21 m[IU]/L Normal 0.45-5.33 [facility] Comment on above: Result Comment: PERF ORMED BY: [place] [address] PATHOLOGIST FACILITY OPERATIONS MANAGER HAILEY CALDERÓN M.D. Performed By: #### C REAT, LYTES, CBC, PP, LIPID, BUN #### [address] Thyrotropin [Units/volume] i n Serum or PlasmaOrdered By: Franck Posey on 03-24-2023 TSH Qn 5.21 m[IU]/L 0.45-5.33 [facility] Urea nitrogen [Mass/volume] in Serum or PlasmaOrdered By: Franck Posey on 03-24-2023 Urea nitrogen [Mass/Vol] 17 mg/dL 7-25 [facility] XR chest 2V*on 03-24-2023 XR chest 2V* [facility] [place] [address] [place] [address] XRay Report Signed Patient: Lesley Quintero MR#: [id number] : 1955 Acct:[id number] Age/Sex: 68 / M ADM Date: 03/24/23 Loc: RT Room: Type: [facility] Attending Dr: Franck Posey DO Copies to: [...] Maya Isbell M.D.03/24/2023 4:06 PM Dictation Location: [facility]--14 Transcribed By: BERTHA 03/24/23 1606 Dictated By: Maya Isbell MD 03/24/23 1604 Signed By: 03/24/23 1606 [facility] XR CHEST 2 VIEWSon 3 XR CHEST 2 VIEWS Interpreted By: Jonathan Karimi, STUDY: XR CHEST 2 VIEWS; 01/26/2023 1:36 pm INDICATION: Signs/Symptoms:device upgrade. COMPARISON: Chest radiograph 01/07/2023 ACCESSION NUMBER(S): [id number] ORDERING CLINICIAN: HOLLI VAZQUEZ FINDINGS: PA and [...] Jonathan Manzo 01/27/2023 10:43 PM Dictation workstation: [id number] [facility] Comment on above: Order Comment: Prepr ocedure Basic metabolic 2000 panelon 01-07-2023 Anion gap [Moles/Vol] 11 mmol/L Normal 10-20 [facility] Comment on above: Performed By: #### 2 4321-2 #### PEPITO Hernandez ([id number]) [facility] ([facility] [address] [place] [address] Calcium [Mass/Vol] 9.0 mg/dL Normal 8.6-10.3 [facility] Comment on above: Performed By: #### 2 4321-2 #### PEPITO Hernandez ([id number]) [facility] ([facility]) [address] [place] [address] Chloride [Moles/Vol] 103 mmol/L Normal 98-107 [facility] Comment on above: Performed By: #### 2 4321-2 #### PEPITO Hernandez ([id number]) [facility] ([facility]) [address] [place] [address] 53082 CO2 [Moles/Vol] 26 mmol/L Normal 21-32 [facility] Comment on above: Performed By: #### 2 4321-2 #### PEPITO Hernandez ([id number]) [facility] ([facility]) [address] [place] [address] 01532 Creatinine [Mass/Vol] 1.47 mg/dL High 0.50-1.30 [facility] Comment on above: Performed By: #### 2 4321-2 #### PEPITO Hernandez ([id number]) [facility] ([facility]) [address] [place] [address] 12324 GFR/1.73 sq M.predicted MDRD (S/P/Bld) [Vol rate/Area] 53 mL/min/1.73m*2 Low >60 [facility] Comment on above: Result Comment: Calc ulations of estimated GFR are performed using the 2020 CKD-EPI Study Refit equation without the race variable for the IDMS-Traceable creatinine methods. https://jasn.asnjournals.org/content/early//ASN.97306 32241 Performed By: #### 2 4321-2 #### PEPITO Hernandez ([id number]) [facility] ([facility]) [address] [place] [address] 87794 Glucose [Mass/Vol] 224 mg/dL High 74-99 [facility] Comment on above: Performed By: #### 2 4321-2 #### PEPITO Hernandez ([id number]) [facility] ([facility]) [address] [place] [address] 96174 Potassium [Moles/Vol] 4.6 mmol/L Normal 3.5-5.3 [facility] Comment on above: Performed By: #### 2 4321-2 #### PEPITO Hernandez ([id number]) [facility] ([facility]) [address] [place] [address] 49572 Sodium [Moles/Vol] 135 mmol/L Low 136-145 [facility] Comment on above: Performed By: #### 2 4321-2 #### PEPITO Hernandez ([id number]) [facility] ([facility]) [address] [place] [address] 22287 Urea nitrogen [Mass/Vol] 27 mg/dL High 6-23 [facility] Comment on above: Performed By: #### 2 4321-2 #### PEPITO Hernandez ([id number]) [facility] ([facility]) [address] [place], [place] [address] CBC panel Auto (Bld)on 01-07 Erythrocyte distribution width (RBC) [Ratio] 17.1 % High 11.5-14.5 [facility] Comment on above: Performed By: #### 5 8410-2 #### PEPITO Hernandez ([id number]) [facility] ([facility]) [address] [place] [address] 19003 Hematocrit (Bld) [Volume fraction] 44.0 % Normal 41.0-52.0 [facility] Comment on above: Performed By: #### 5 8410-2 #### PEPITO Hernandez ([id number]) [facility] ([facility]) [address] [place] [address] 04014 Hemoglobin (Bld) [Mass/Vol] 14.0 g/dL Normal 13.5-17.5 [facility] Comment on above: Performed By: #### 5 8410-2 #### PEPITO Hernandez ([id number]) [facility] (EM) [address] [place] [address] 43074 MCH (RBC) [Entitic mass] 27.7 pg Normal 26.0-34.0 [facility] Comment on above: Performed By: #### 5 8410-2 #### PEPITO Hernandez ([id number]) [facility] ([facility]) [address] [place] [address] 30095 MCHC (RBC) [Mass/Vol] 31.8 g/dL Low 32.0-36.0 [facility] Comment on above: Performed By: #### 5 8410-2 #### PEPITO Hernandez ([id number]) [facility] ([facility]) [address] [place] [address] 78615 MCV (RBC) [Entitic vol] 87 fL Normal 80-100 [facility] Comment on above: Performed By: #### 5 8410-2 #### PEPITO Hernandez ([id number]) [facility] ([facility]) [address] [place] [address] 76369 Nucleated RBC/100 WBC (Bld) [Ratio] 0.0 /100 WBCs Normal 0.0-0.0 [facility] Comment on above: Performed By: #### 5 8410-2 #### PEPITO Hernandez ([id number]) [facility] ([facility]) [address] [place] [address] 99041 Platelet mean volume (Bld) [Entitic vol] 12.6 fL High 7.5-11.5 [facility] Comment on above: Performed By: #### 5 8410-2 #### PEPITO Hernandez ([id number]) [facility] ([facility]) [address] [place] [address] 45827 Platelets (Bld) [#/Vol] 206 x10*3/uL Normal 150-450 [facility] Comment on above: Performed By: #### 5 8410-2 #### PEPITO Hernandez ([id number]) [facility] ([facility]) [address] [place] [address] 49509 RBC (Bld) [#/Vol] 5.06 x10*6/uL Normal 4.50-5.90 [facility] Comment on above: Performed By: #### 5 8410-2 #### PEPITO Hernandez ([id number]) [facility] ([facility]) [address] [place] [address] 77449 WBC (Bld) [#/Vol] 9.4 x10*3/uL Normal 4.4-11.3 [facility] Comment on above: Performed By: #### 5 8410-2 #### PEPITO Hernandez ([id number]) [facility] ([facility]) [address] [place] [address] 48492 ECG 12-LEADon 01-07-2023 ECG 12-LEAD Ventricular Rate 87 Atrial Rate 68 QRS Duration 114 Q-T Interval 436 QTC Calculation(Bazett) 524 R [place] 46 T [place] -64 QRS Count 15 Q Onset 214 T Offset 432 QTC Fredericia 493 Diagnosis Ventricular-paced rhythm PVC's Abnormal ECG When compared with ECG of 07-JAN-2023 07:58, (unconfirmed) Electronic ventricular pacemaker has replaced Electronic atrial pacemaker Confirmed by Darnell Bruce ([id number]) on 01/07/2023 3:28:55 PM Normal [facility] ECG 12-LEAD Ventricular Rate 70 Atrial Rate 70 P-R Interval 190 QRS Duration 174 Q-T Interval 504 QTC Calculation(Bazett) 544 R [place] -78 T [place] 71 QRS Count 11 Q Onset 196 T Offset 448 QTC Fredericia 530 Diagnosis AV sequential or dual chamber electronic pacemaker Abnormal ECG Confirmed by Darnell Bruce ([id number]) on 01/07/2023 3:26:08 PM Normal [facility] Glucose Test strip manual (B ld) [Mass/Vol]on 01-07-2023 Glucose [Mass/Vol] 161 mg/dL High 74-99 [facility] Comment on above: Performed By: #### 2 341-6 #### PEPITO Hernandez ([id number]) [facility] ([facility]) [address] [place] [address] 25782 Glucose [Mass/Vol] 194 mg/dL High 74-99 [facility] Comment on above: Performed By: #### 2 341-6 #### PEPITO Hernandez ([id number]) [facility] ([facility]) [address] [place] [address] 17242 Glucose [Mass/Vol] 207 mg/dL High 74-99 [facility] Comment on above: Performed By: #### 2 341-6 #### PEPITO Hernandez ([id number]) [facility] ([facility]) [address] [place] [address] 19226 Glucose [Mass/Vol] 235 mg/dL High [address] [place] [address] Comment on above: Performed By: #### 2 341-6 #### PEPITO Hernandez ([id number]) [facility] ([facility]) [address] [place] [address] 79265 Glucose [Mass/Vol] 217 mg/dL High [address] [place] [address] Comment on above: Performed By: #### 2 341-6 #### PEPITO Hernandez ([id number]) [facility] ([facility] [address] [place] [address] 08474 Glucose [Mass/Vol] 206 mg/dL High [address] [place] [address] Comment on above: Result Comment: RN/M D NOTIFIED Performed By: #### 2 341-6 #### PEPITO Hernandez ([id number]) [facility] ([facility]) [address] [place] [address] 92199 PT and aPTT panel Coag (PPP) on 01-07-2023 aPTT Coag (PPP) [Time] 32 s Normal 27-38 [facility] Comment on above: Order Comment: The A PTT is no longer used for monitoring Unfractionated Heparin Therapy. For monitoring Heparin Therapy, use the Heparin Assay. Performed By: #### 3 4529-8 #### PEPITO Hernandez ([id number]) [facility] ([facility]) [address] [place] [address] 99436 INR Coag (PPP) [Relative time] 1.1 Normal 0.9-1.1 [facility] Comment on above: Order Comment: The A PTT is no longer used for monitoring Unfractionated Heparin Therapy. For monitoring Heparin Therapy, use the Heparin Assay. Performed By: #### 3 4529-8 #### PEPITO Hernandez ([id number]) [facility] ([facility]) [address] [place] [address] 73373 PT Coag (PPP) [Time] 12.1 s Normal 9.8-12.8 [facility] Comment on above: Order Comment: The A PTT is no longer used for monitoring Unfractionated Heparin Therapy. For monitoring Heparin Therapy, use the Heparin Assay. Performed By: #### 3 4529-8 #### PEPITO Hernandez ([id number]) [facility] ([facility]) [address] [place] [address] 98134 XR CHEST 2 VIEWSon 3 XR CHEST 2 VIEWS Interpreted By: Marilu Walton, STUDY: XR CHEST 2 VIEWS; 01/07/2023 8:34 am INDICATION: Signs/Symptoms:Pre-op upgrade to biventricular pacemaker. COMPARISON: 10/21/2017 ACCESSION NUMBER(S): [id number] ORDERING CLINICIAN: HOLLI MORALES FINDINGS: Bipolar left [...] Marilu Ventura 01/07/2023 8:40 AM Dictation workstation: [id number] [facility] Comment on above: Order Comment: Prepr [...] (V72.81) (Z01.810) Atherosclerosis of coronary artery of tan[place] heart without angina pectoris (414.01) (I25.10) Cardiac [...] Ha. 1 Upgrade to Biventricular Device at [place] [address] 1 Amended By: Nadeem Townsend; Nov 30 [...] s/p dual chamber pacemaker. Treatment options discussed. [employer] decision tool. For upgrade to biventricular ICD. [...] are indications for biventricular device, pacemaker removal, [employer] decision tool, informed consent, Lovenox bridge, possibility of unable to place CS lead, device followup, tobacco cessation for greater than 3 minutes, if and what medication refills needed, treatment options, brochure for SVT, meds vs ablation, Holter results, risks, benefits, and imponderables. [employer] lifestyle changes and behavioral modification discussed. All questions answered in detail. Counseling over 50% visit regarding above. Patient and family appreciative of care. Active Problems Problems Anticoagulated (V58.61) (Z79.01) Atherosclerosis of coronary artery of tanana heart without angina pectoris (414.01) (I25.10) Cardiac [...] sick sinus (more content not included)... Normal [employer] Tobacco Screening.on 023 Adult depression screening assessment No [facility]-[employer] emily 250 DO Work Phone: Fall risk assessment a) No falls within the last year [facility] [employer] 250 DO Work Phone: Tobacco use status CPHS a) Yes [facility] [employer] 250 DO Work Phone: Tobacco Screening. 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 You may also call [phone] for free resources and assistance.; Status:Complete; Done: 25Nov2022 Tobacco Use Screening; Status:Complete; Done: 25Nov2022 CHF (NYHA class III, ACC/AHA stage C) [...] Referral to Dr. 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 Return for follow-up; in the [...] is borderlin (more content not included)... Normal [employer] Tobacco Screening.on 023 Fall risk assessment a) No falls within the last year -[facility]-[employer] emily 250 DO Work Phone: Tobacco use status CPHS a) Yes [facility] Heart-official[employer]fm 250 DO Work Phone: Tobacco Screening. Yes [facility] Heart-Sandu emily 250 DO Work Phone: Activated partial thrombopla stin time (aPTT) in platelet poor plasma by coagulation aOrdered By: Franck Posey on 11-19-2022 aPTT Coag (PPP) [Time] 28.8 s 25.1-36.5 [facility] Coagulation Profileon 2022 aPTT Coag (Bld) [Time] 28.8 s Normal 25.1-36.5 [facility] Comment on above: Result Comment: PERF ORMED BY: [place] [address] PATHOLOGIST FACILITY OPERATIONS MANAGER HAILEY CALDERÓN M.D. Performed By: #### P P #### [facility] [address] [place] [address] INR Coag (PPP) [Relative time] 1.0 {INR} Normal [facility] Comment on above: Result Comment: INR Therapeutic [...] 4.5 Performed By: #### P P #### [facility] [address] [place] [address] PT Coag (PPP) [Time] 12.1 s Normal 9.0-12.9 [facility] Comment on above: Performed By: #### P P #### [facility] [address] [place] [address] INR in Platelet poor plasma by Coagulation assayOrdered By: Franck Posey on 11-19-2022 INR Coag (PPP) [Relative time] 1.0 {INR} [facility] Comment on above: INR Therapeutic Rang e [...] PT Coag (PPP) [Time] 12.1 s 9.0-12.9 [facility] No Panel Informationon 11-19 28.8\S\28.8 Normal 25.1-36.5 [facility] 250 DO Work Phone: Comment on above: PERFORMED BY:[facility] [place] [id number] MEDICAL DIRECTORHAILEY CALDERÓN M.D. 1.0\S\1.0 Normal [place] [address] DO Work Phone: Comment on above: INR [...] valves: 3 - 4.5 12.1\S\12.1 Normal 9.0-12.9 [facility] 250 DO Work Phone: Activated partial thrombopla stin time (aPTT) in platelet poor plasma by coagulation aOrdered By: Franck Posey on 11-13-2022 aPTT Coag (PPP) [Time] 37.0 s 25.1-36.5 [facility] Basophils Auto (Bld) [#/Vol] Ordered By: Franck Posey on 11-13-2022 Basophils (Bld) [#/Vol] 0.1 10*3/uL 0.0-0.2 [facility] Basophils/100 WBC Auto (Bld) Ordered By: Franck Posey on 11-13-2022 Basophils/100 WBC (Bld) 0.6 % . [facility] Blood Urea Nitrogenon 2022 Urea nitrogen [Mass/Vol] 15 mg/dL Normal 7-25 [facility] Comment on above: Performed By: #### C REAT, LYTES, CBC, PP, LIPID, BUN #### [facility] [address] Carbon dioxide, total [Moles /volume] in Serum or PlasmaOrdered By: Franck Posey on 11-13-2022 CO2 [Moles/Vol] 28.0 mmol/L 21.0-31.0 [facility] Chloride [Moles/volume] in S radha or PlasmaOrdered By: Franck Posey on 11-13-2022 Chloride [Moles/Vol] 104 mmol/L 98-107 [facility] Cholesterol [Mass/volume] in Serum or PlasmaOrdered By: Franck Posey on 11-13-2022 Cholesterol [Mass/Vol] 104 mg/dL 140-200 [facility] Comment on above: Chol less than 200 m g/dl low riskChol 201-239 mg/dl borderline riskChol 240 mg/dl and greater high risk Cholesterol in LDL Calc [Mas s/Vol]Ordered By: Franck Posey on 11-13-2022 Cholesterol in LDL [Mass/Vol] 47 mg/dL 0-100 [facility] Comment on above: LDL ATP III CLASSIFI CATIONLDL less than 100 mg/dL OptimalLDL 100-129 mg/dL Near or above optimalLDL 130-159 mg/dL Borderline highLDL 160-189 mg/dL HighLDL greater than 189 mg/dL Very high Cholesterol in VLDL Calc [Ma ss/Vol]Ordered By: Franck Posey on 11-13-2022 Cholesterol in VLDL [Mass/Vol] 32 mg/dL [facility] Coagulation Profileon 2022 aPTT Coag (Bld) [Time] 37.0 s High 25.1-36.5 [facility] Comment on above: Result Comment: PERF ORMED BY: [place] [address] PATHOLOGIST FACILITY OPERATIONS MANAGER HAILEY CALDERÓN M.D. Performed By: #### C AILIN PARRISH, CBC, PP, LIPID, BUN #### [facility] [address] INR Coag (PPP) [Relative time] 2.0 {INR} Normal [facility] Comment on above: Result Comment: INR Therapeutic [...] REAT, LYTES, CBC, PP, LIPID, BUN #### [address] PT Coag (PPP) [Time] 22.7 s High 9.0-12.9 [facility] Comment on above: Performed By: #### C REAT, LYTES, CBC, PP, LIPID, BUN #### [address] Complete Blood Count Auto Di ffon 11-13-2022 Basophils (Bld) [#/Vol] 0.1 10*3/uL Normal 0.0-0.2 [facility] Comment on above: Result Comment: PERF ORMED BY: [place] [address] PATHOLOGIST FACILITY OPERATIONS MANAGER HAILEY CALDERÓN M.D. Performed By: #### C REAT, LYTES, CBC, PP, LIPID, BUN #### [address] Basophils/100 WBC (Bld) 0.6 % Normal . [facility] Comment on above: Performed By: #### C REAT, LYTES, CBC, PP, LIPID, BUN #### [address] Eosinophils (Bld) [#/Vol] 0.5 10*3/uL High 0.0-0.45 [facility] Comment on above: Performed By: #### C REAT, LYTES, CBC, PP, LIPID, BUN #### [address] Eosinophils/100 WBC (Bld) 5.2 % Normal . [facility] Comment on above: Performed By: #### C REAT, LYTES, CBC, PP, LIPID, BUN #### [address] Erythrocyte distribution width (RBC) [Ratio] 19.5 % High 12.0-14.8 [facility] Comment on above: Performed By: #### C REAT, LYTES, CBC, PP, LIPID, BUN #### [address] Hematocrit (Bld) [Volume fraction] 38.7 % Low 38.8-50.0 [facility] Comment on above: Performed By: #### C REAT, LYTES, CBC, PP, LIPID, BUN #### [address] Hemoglobin (Bld) [Mass/Vol] 12.6 g/dL Low 13.0-17.0 [facility] Comment on above: Performed By: #### C REAT, LYTES, CBC, PP, LIPID, BUN #### [address] Lymphocytes (Bld) [#/Vol] 3.1 10*3/uL Normal 1.00-4.8 [facility] Comment on above: Performed By: #### C REAT, LYTES, CBC, PP, LIPID, BUN #### [address] Lymphocytes/100 WBC (Bld) 35.2 % Normal . [facility] Comment on above: Performed By: #### C REAT, LYTES, CBC, PP, LIPID, BUN #### [address] MCH (RBC) [Entitic mass] 27.0 pg Low 27.5-35.2 [facility] Comment on above: Performed By: #### C REAT, LYTES, CBC, PP, LIPID, BUN #### [address] MCV (RBC) [Entitic vol] 82.6 fL Low 83.5-101 [facility] Comment on above: Performed By: #### C REAT, LYTES, CBC, PP, LIPID, BUN #### [address] Mean Corpuscular HGB Conc 32.6 g/dL Normal 32.5-35.6 [facility] Comment on above: Performed By: #### C REAT, LYTES, CBC, PP, LIPID, BUN #### [address] Monocytes (Bld) [#/Vol] 0.8 10*3/uL Normal 0.0-0.8 [facility] Comment on above: Performed By: #### C REAT, LYTES, CBC, PP, LIPID, BUN #### [address] Monocytes/100 WBC (Bld) 9.4 % Normal . [facility] Comment on above: Performed By: #### C REAT, LYTES, CBC, PP, LIPID, BUN #### [address] Neutrophils (Bld) [#/Vol] 4.4 10*3/uL Normal 1.8-7.7 [facility] Comment on above: Performed By: #### C REAT, LYTES, CBC, PP, LIPID, BUN #### [address] Neutrophils/100 WBC (Bld) 49.6 % Normal . [facility] Comment on above: Performed By: #### C REAT, LYTES, CBC, PP, LIPID, BUN #### [address] NRBC% 0.1 /100{WBC} Normal 0-0.5 [facility] Comment on above: Performed By: #### C REAT, LYTES, CBC, PP, LIPID, BUN #### [address] Platelet mean volume (Bld) [Entitic vol] 9.9 fL Normal 6.6-10.1 [facility] Comment on above: Performed By: #### C REAT, LYTES, CBC, PP, LIPID, BUN #### [facility] [address] Platelets (Bld) [#/Vol] 183 10*3/uL Normal 150-450 [facility] Comment on above: Performed By: #### C REAT, LYTES, CBC, PP, LIPID, BUN #### [facility] [address] RBC (Bld) [#/Vol] 4.68 10*6/uL Normal 3.90-5.60 [facility] Comment on above: Performed By: #### C REAT, LYTES, CBC, PP, LIPID, BUN #### [facility] [address] WBC (Bld) [#/Vol] 8.9 10*3/uL Normal 4.1-10.5 [facility] Comment on above: Performed By: #### C REAT, LYTES, CBC, PP, LIPID, BUN #### [facility] [address] Creatinineon 11-13-2022 Creatinine [Mass/Vol] 1.16 mg/dL Normal 0.70-1.30 [facility] Comment on above: Performed By: #### C REAT, LYTES, CBC, PP, LIPID, BUN #### [address] GFR/1.73 sq M.predicted MDRD (S/P/Bld) [Vol rate/Area] mL/min/{1.73_m2} Normal [facility] Comment on above: Performed By: #### C REAT, LYTES, CBC, PP, LIPID, BUN #### [address] Creatinine [Mass/volume] in Serum or PlasmaOrdered By: Franck Posey on 11-13-2022 Creatinine [Mass/Vol] 1.16 mg/dL 0.70-1.30 [facility] ECG 12 lead ECGon 11-13-2022 ECG 12 lead ECG [facility] [employer] [address] [place] [address] Electrocardiograph Report Signed Patient: Lesley Quintero MR#: [id number] : 1955 Acct:[id number] Age/Sex: 67 / M ADM Date: 11/13/22 Loc: PS Room: Type: [facility] Attending Dr: Franck Posey DO Ordering Provider: Franck Posey DO Date of Service: 11/13/22 ECG/ECG 12 lead ECG: PST for [facility] Copies to: Test Reason : Blood [...] Lateral leads Confirmed by PATY PETERS MD ([id number]) on 11/16/2022 6:37:00 PM Referred By: KALPESH Electronically Signed By:PATY PETERS MD Transcribed By: FRANK Signed By Paty Peters MD 0 11/16/22 183 Normal [facility] Electrolyteson 11-13-2022 Anion gap [Moles/Vol] 8.7 mmol/L Normal 6.0-15.0 [facility] Comment on above: Performed By: #### C AILIN PARRISH, CBC, PP, LIPID, BUN #### [facility] [address] [place] [address] [place] Chloride [Moles/Vol] 104 mmol/L Normal 98-107 [facility] Comment on above: Performed By: #### C AILIN PARRISH, CBC, PP, LIPID, BUN #### [facility] [address] [place] [address] [place] CO2 [Moles/Vol] 28.0 mmol/L Normal 21.0-31.0 [facility] Comment on above: Performed By: #### C REAT, LYTES, CBC, PP, LIPID, BUN #### [facility] [address] Potassium [Moles/Vol] 4.7 mmol/L Normal 3.5-5.1 [facility] Comment on above: Performed By: #### C REAT, LYTES, CBC, PP, LIPID, BUN #### [facility] [address] Sodium [Moles/Vol] 136 mmol/L Normal 136-145 [facility] Comment on above: Performed By: #### C REAT, LYTES, CBC, PP, LIPID, BUN #### [facility] [address] Eosinophils Auto (Bld) [#/Vo l]Ordered By: Franck Posey on 11-13-2022 Eosinophils (Bld) [#/Vol] 0.5 10*3/uL 0.0-0.45 [facility] Eosinophils/100 WBC Auto (Bl d)Ordered By: Franck Posey on 11-13-2022 Eosinophils/100 WBC (Bld) 5.2 % . [facility] Erythrocyte distribution wid th Auto (RBC) [Ratio]Ordered By: Franck Posey on 11-13-2022 Erythrocyte distribution width (RBC) [Ratio] 19.5 % 12.0-14.8 [facility] Hematocrit Auto (Bld) [Volum e fraction]Ordered By: Franck Posey on 11-13-2022 Hematocrit (Bld) [Volume fraction] 38.7 % 38.8-50.0 [facility] Hemoglobin [Mass/volume] in BloodOrdered By: Franck Posey on 11-13-2022 Hemoglobin (Bld) [Mass/Vol] 12.6 g/dL 13.0-17.0 [facility] INR in Platelet poor plasma by Coagulation assayOrdered By: Franck Posey on 11-13-2022 INR Coag (PPP) [Relative time] 2.0 {INR} [facility] Comment on above: INR Therapeutic Rang e [...] Cholesterol [Mass/Vol] 104\S\104 below low threshold 140-200 -[facility] [employer] emily 250 DO Work Phone: Comment on above: Chol less than 200 m g/dl low risk Chol 201-239 mg/dl borderline risk Chol 240 mg/dl and greater high risk Cholesterol in LDL [Mass/Vol] 47\S\47 Normal 0-100 [facility] emily 250 DO Work Phone: Comment on above: LDL ATP III CLASSIFI CATION LDL less than 100 mg/dL Optimal LDL 100-129 mg/dL Near or above optimal LDL 130-159 mg/dL Borderline high LDL 160-189 mg/dL High LDL greater than 189 mg/dL Very high Laboratory - CoagulationOrde red By: Franck Posey on 11-13-2022 PT Coag (PPP) [Time] 22.7 s 9.0-12.9 [facility] Leukocytes [#/volume] correc lily for nucleated erythrocytes in Blood by Automated counOrdered By: Franck Posey on 11-13-2022 WBC corrected for nucl RBC Auto (Bld) [#/Vol] 8.9 10*3/uL 4.1-10.5 [facility] Lipid Panelon 11-13-2022 Cholesterol [Mass/Vol] 104 mg/dL Low 140-200 [facility] Comment on above: Result Comment: Chol less than 200 mg/dl low risk Chol 201-239 mg/dl borderline risk Chol 240 mg/dl and greater high risk Performed By: #### C REAT, LYTES, CBC, PP, LIPID, BUN #### [address] Cholesterol in HDL [Mass/Vol] 24 mg/dL Normal 23-92 [facility] Comment on above: Result Comment: HDL CHOL ATP-III CLASSIFICATION Cardiovascular Risk HDL > or equal to 60 mg/dL LOW HDL < 40 mg/dL HIGH Performed By: #### C REAT, LYTES, CBC, PP, LIPID, BUN #### [facility] [address] Cholesterol.total/Chol esterol in HDL [Mass ratio] 4.3 {ratio} Normal <5.0 [facility] Comment on above: Result Comment: PERF ORMED BY: [place] [address] PATHOLOGIST FACILITY OPERATIONS MANAGER HAILEY CALDERÓN M.D. Performed By: #### C REAT, LYTES, CBC, PP, LIPID, BUN #### [facility] [address] LDL Cholesterol,Calculated 47 mg/dL Normal 0-100 [facility] Comment on above: Result Comment: LDL ATP III CLASSIFICATION LDL less than 100 mg/dL Optimal LDL 100-129 mg/dL Near or above optimal LDL 130-159 mg/dL Borderline high LDL 160-189 mg/dL High LDL greater than 189 mg/dL Very high Performed By: #### C REAT, LYTES, CBC, PP, LIPID, BUN #### [facility] [address] Triglyceride w/Reflex 164 mg/dL High 0-149 [facility] Comment on above: Result Comment: TRIG ATP III CLASSIFICATION TRIG less than 150 mg/dL Normal TRIG 150-199 mg/dL Borderline high TRIG 200-500 mg/dL High TRIG greater than 500 mg/dL Very high Standard traceable to the Center for Disease Conrtrol and Prevention (CDC) test method. Performed By: #### C REAT, LYTES, CBC, PP, LIPID, BUN #### [facility] [address] VLDL CHOLESTEROL 32 mg/dL Normal [facility] Comment on above: Performed By: #### C REAT, LYTES, CBC, PP, LIPID, BUN #### [facility] [address] Lymphocytes Auto (Bld) [#/Vo l]Ordered By: Franck Posey on 11-13-2022 Lymphocytes (Bld) [#/Vol] 3.1 10*3/uL 1.00-4.8 [facility] Lymphocytes/100 WBC Auto (Bl d)Ordered By: Franck Posey on 11-13-2022 Lymphocytes/100 WBC (Bld) 35.2 % . [facility] MCH Auto (RBC) [Entitic mass ]Ordered By: Franck Posey on 11-13-2022 MCH (RBC) [Entitic mass] 27.0 pg 27.5-35.2 [facility] MCHC Auto (RBC) [Mass/Vol]Or dered By: Franck Posey on 11-13-2022 MCHC (RBC) [Mass/Vol] 32.6 g/dL 32.5-35.6 [facility] MCV Auto (RBC) [Entitic vol] Ordered By: Franck Posey on 11-13-2022 MCV (RBC) [Entitic vol] 82.6 fL 83.5-101 [facility] Monocytes Auto (Bld) [#/Vol] Ordered By: Franck Posey on 11-13-2022 Monocytes (Bld) [#/Vol] 0.8 10*3/uL 0.0-0.8 [facility] Monocytes/100 WBC Auto (Bld) Ordered By: Franck Posey on 11-13-2022 Monocytes/100 WBC (Bld) 9.4 % . [facility] Neutrophils Auto (Bld) [#/Vo l]Ordered By: Franck Posey on 11-13-2022 Neutrophils (Bld) [#/Vol] 4.4 10*3/uL 1.8-7.7 [facility] Neutrophils/100 WBC Auto (Bl d)Ordered By: Franck Posey on 11-13-2022 Neutrophils/100 WBC (Bld) 49.6 % . [facility] No Panel InformationOrdered By: Franck Posey on 11-13-2022 Estimated GFR (CKD-EPI) > 60.0 mL/Min [facility] Pharmacy Creatinine Clearance (Chem N/A [facility] No Panel Informationon 11-13 37.0\S\37.0 above high threshold 25.1-36.5 -[facility] emily 250 DO Work Phone: Comment on above: PERFORMED BY:[facility] JENNIFERJohn PaulCASSY [place] [id number] MEDICAL DIRECTORHAILEY CALDERÓN M.D. 2.0\S\2.0 Normal -[facility] emily 250 DO Work Phone: Comment [...] - 4.5 22.7\S\22.7 above high threshold 9.0-12.9 -[facility] emily 250 DO Work Phone: 49.6\S\49.6 Normal . [facility] emily 250 DO Work Phone: 9.9\S\9.9 Normal 6.6-10.1 [facility] em[facility] 250 DO Work Phone: [phone] Normal 150-450 [facility] emily 250 DO Work Phone: 19.5\S\19.5 above high threshold 12.0-14.8 [facility] em[facility] 250 DO Work Phone: [phone] 32.6\S\32.6 Normal 32.5-35.6 [facility] em[facility] 250 DO Work Phone: 27.0\S\27.0 below low threshold 27.5-35.2 -[facility] em[facility] 250 DO Work Phone: [phone] 4.4\S\4.4 Normal 1.8-7.7 [facility] em[facility] 250 DO Work Phone: [phone] 0.1\S\0.1 Normal 0.0-0.2 -[facility] emily 250 DO Work Phone: Comment on above: PERFORMED BY:[facility]GEL WATSONCASSY [place] [phone] MEDICAL DIRECTORHAILEY CALDERÓN M.D. 0.6\S\0.6 Normal . -[facility] emily 250 DO Work Phone: [phone] 5.2\S\5.2 Normal . -[facility] em[facility] 250 DO Work Phone: [phone] 9.4\S\9.4 Normal . [facility] em[facility] 250 DO Work Phone: [phone] 35.2\S\35.2 Normal . [facility] 250 DO Work Phone: [phone] 0.5\S\0.5 above high threshold 0.0-0.45 [facility] 250 DO Work Phone: [phone] 0.8\S\0.8 Normal 0.0-0.8 [facility] 250 DO Work Phone: [phone] 3.1\S\3.1 Normal 1.00-4.8 -[facility] em[facility] 250 DO Work Phone: [phone] 82.6\S\82.6 below low threshold 83.5-101 [facility] 250 DO Work Phone: [phone] 38.7\S\38.7 below low threshold 38.8-50.0 [facility] 250 DO Work Phone: [phone] 12.6\S\12.6 below low threshold 13.0-17.0 -[facility] em[facility] 250 DO Work Phone: [phone] 4.68\S\4.68 Normal 3.90-5.60 -[facility] em[facility] 250 DO Work Phone: [phone] 8.9\S\8.9 Normal 4.1-10.5 [facility]Alisa diaz 250 DO Work Phone: [phone] 8.7\S\8.7 Normal 6.0-15.0 [facility] diaz 250 DO Work Phone: [phone] 28.0\S\28.0 Normal 21.0-31.0 [facility] diaz 250 DO Work Phone: [phone] 104\S\104 Normal 98-107 [facility] HeartAmber diaz 250 DO Work Phone: [phone] 4.7\S\4.7 Normal 3.5-5.1 [facility] diaz 250 DO Work Phone: [phone] 136\S\136 Normal 136-145 [facility] HeartAmber diaz 250 DO Work Phone: [phone] 15\S\15 Normal 7-25 [facility] Heart[facility]mber diaz 250 DO Work Phone: > 60.0 Normal [facility] HeartAmber diaz 250 DO Work Phone: [phone] 1.16\S\1.16 Normal 0.70-1.30 [facility] Heart[facility]mber diaz 250 DO Work Phone: 4.3\S\4.3 Normal <5.0 [facility] Heart[facility]mber diaz 250 DO Work Phone: [phone] Comment on above: PERFORMED BY:[place] [address] [address] [place], [place] [phone] MEDICAL DIRECTORHAILEY CALDERÓN M.D. 32\S\32 Normal [facility] diaz 250 DO Work Phone: [phone]\S\164 above high threshold 0-149 [facility] Heart[facility]mber diaz 250 DO Work Phone: Comment on above: TRIG ATP III CLASSIF ICATION TRIG less than 150 mg/dL Normal TRIG 150-199 mg/dL Borderline high TRIG 200-500 mg/dL High TRIG greater than 500 mg/dL Very high Standard traceable to the Center for Disease Conrtrol and Prevention (CDC) test method. 24\S\24 Normal [facility] emily 250 DO Work Phone: Comment on above: HDL CHOL ATP-III CLA SSIFICATION Cardiovascular Risk HDL > or equal to 60 mg/dL LOW HDL < 40 mg/dL HIGH Nucleated erythrocytes [Pres ence] in Blood by Automated countOrdered By: Franck Posey on 11-13-2022 Nucleated RBC Auto Ql (Bld) 0.1 /100{WBC} 0-0.5 [facility] Platelet mean volume Auto (B ld) [Entitic vol]Ordered By: Franck Posey on 11-13-2022 Platelet mean volume (Bld) [Entitic vol] 9.9 fL 6.6-10.1 [facility] Platelets Auto (Bld) [#/Vol] Ordered By: Franck Posey on 11-13-2022 Platelets (Bld) [#/Vol] 183 10*3/uL 150-450 [facility] Potassium [Moles/volume] in Serum or PlasmaOrdered By: Franck Posey on 11-13-2022 Potassium [Moles/Vol] 4.7 mmol/L 3.5-5.1 [facility] RBC Auto (Bld) [#/Vol]Ordere d By: Franck Posey on 11-13-2022 RBC (Bld) [#/Vol] 4.68 10*6/uL 3.90-5.60 [facility] Serum or plasma anion gap de terminationOrdered By: Franck Posey on 11-13-2022 Anion gap [Moles/Vol] 8.7 mmol/L 6.0-15.0 [facility] Serum or plasma high density lipoprotein (HDL) cholesterol measurementOrdered By: Franck Posey on 11-13-2022 Cholesterol in HDL [Mass/Vol] 24 mg/dL [facility] Comment on above: HDL CHOL ATP-III CLA SSIFICATION Cardiovascular RiskHDL > or equal to 60 mg/dL LOWHDL < 40 mg/dL HIGH Serum or plasma total choles terol/high density lipoprotein (HDL) cholesterol mass ratOrdered By: Franck Posey on 11-13-2022 Cholesterol.total/Chol esterol in HDL [Mass ratio] 4.3 {ratio} <5.0 [facility] Sodium [Moles/volume] in Ser um or PlasmaOrdered By: Franck Posey on 11-13-2022 Sodium [Moles/Vol] 136 mmol/L 136-145 [facility] Triglyceride [Mass/volume] i n Serum or PlasmaOrdered By: Franck Posey on 11-13-2022 Triglyceride [Mass/Vol] 164 mg/dL 0-149 [facility] Comment on above: TRIG ATP III CLASSIF ICATIONTRIG less than 150 mg/dL NormalTRIG 150-199 mg/dL Borderline highTRIG 200-500 mg/dL High TRIG greater than 500 mg/dL Very highStandard traceable to the Center for Disease Conrtrol and Prevention (CDC) test method. Urea nitrogen [Mass/volume] in Serum or PlasmaOrdered By: Franck Posey on 11-13-2022 Urea nitrogen [Mass/Vol] 15 mg/dL 7-25 [facility] WBC Auto (Bld) [#/Vol]Ordere d By: Franck Posey on 11-13-2022 WBC (Bld) [#/Vol] 8.9 10*3/uL 4.1-10.5 [facility] Echocardiogramon 10-28-[address], [address], [place] [address] TRANSTHORACIC ECHOCARDIOGRAM REPORT Patient Name: LESLEY Vann Physician: [id number] Jesus QUINTERO Study Date: 10/28/2022 Referring JESUS POSEY Physician: MRN/PID: [id number] PCP: Lee Segovia Accession/Order#: [id number] Department [facility] Location: [place] Date of : 1955 Fellow: Gender: M Nurse: Romana Jaramillo RN Admit Date: Cooler Servicer: Anisa White RD, T Height: 175.26 cm CC Report to: Weight: 107.96 kg Study Type: Echocardiogram BSA: 2.22 m2 Blood Pressure: 128 /70 mmHg Diagnosis/ICD: C85-Pjbqiwonr (primary) hypertension; I48.0-Paroxysmal atrial fibrillation; R06.02-Shortness of breath Indication: Sick Sinus Syndrome, Pacemaker, CAD, ND and CABG-2018, COPD, Diabetes, Hyperlipidemia, Tobacco Abuse, Dementia, CVA, Ischemic Cardiomyopathy, Obesity, EMIL Procedure/CPT: Echo Complete w Full Doppler-21094 Study Detail: The following Echo studies were [...] 0.6 m/s (0.6-0.9m/s) PV Max P.2 mmHg [id number] Jesus Fregoso MD Electronically signed on 11/02/2022 at 2:48:52 PM Final Normal [facility] Aspartate Amino Transferaseo n 08-05-2022 AST [Catalytic activity/Vol] 27 U/L Normal [facility] Comment on above: Performed By: #### C REAT, LYTES, CBC, PP, LIPID, BUN #### [facility] [address] Aspartate aminotransferase [ Enzymatic activity/volume] in Serum or PlasmaOrdered By: Franck Posey on 08-05-2022 AST [Catalytic activity/Vol] 27 U/L [facility] Basic Metabolic Panelon 07-20 Anion gap [Moles/Vol] 8.7 mmol/L Normal 6.0-15.0 [facility] Comment on above: Performed By: #### C REAT, LYTES, CBC, PP, LIPID, BUN #### [address] Calcium [Mass/Vol] 8.7 mg/dL Normal 8.6-10.3 [facility] Comment on above: Performed By: #### C REAT, LYTES, CBC, PP, LIPID, BUN #### [address] Chloride [Moles/Vol] 106 mmol/L Normal 98-107 [facility] Comment on above: Performed By: #### C REAT, LYTES, CBC, PP, LIPID, BUN #### [address] CO2 [Moles/Vol] 27.4 mmol/L Normal 21.0-31.0 [facility] Comment on above: Performed By: #### C REAT, LYTES, CBC, PP, LIPID, BUN #### [address] Creatinine [Mass/Vol] 1.08 mg/dL Normal 0.70-1.30 [facility] Comment on above: Performed By: #### C REAT, LYTES, CBC, PP, LIPID, BUN #### [place] [address] [place] GFR/1.73 sq M.predicted MDRD (S/P/Bld) [Vol rate/Area] mL/min/{1.73_m2} Normal [facility] Comment on above: Performed By: #### C REAT, LYTES, CBC, PP, LIPID, BUN #### [facility] [address] Glucose [Mass/Vol] 164 mg/dL High 70-100 [facility] Comment on above: Result Comment: [facility] Glucose Reference Range is dependent on time and content of last meal. Glucose of more than 200 mg/dL in a nonstressed, ambulatory subject supports the diagnosis of Diabetes Mellitus. ADA recommended reference range Performed By: #### C REAT, LYTES, CBC, PP, LIPID, BUN #### [facility] [address] Potassium [Moles/Vol] 5.1 mmol/L Normal 3.5-5.1 [facility] Comment on above: Performed By: #### C REAT, LYTES, CBC, PP, LIPID, BUN #### [facility] [address] Sodium [Moles/Vol] 137 mmol/L Normal 136-145 [facility] Comment on above: Performed By: #### C REAT, LYTES, CBC, PP, LIPID, BUN #### [address] Urea nitrogen [Mass/Vol] 15 mg/dL Normal 7-25 [facility] Comment on above: Performed By: #### C REAT, LYTES, CBC, PP, LIPID, BUN #### [address] Calcium [Mass/volume] in Ser um or PlasmaOrdered By: Franck Posey on 08-05-2022 Calcium [Mass/Vol] 8.7 mg/dL 8.6-10.3 [facility] Carbon dioxide, total [Moles /volume] in Serum or PlasmaOrdered By: Franck Posey on 08-05-2022 CO2 [Moles/Vol] 27.4 mmol/L 21.0-31.0 [facility] Chloride [Moles/volume] in S radha or PlasmaOrdered By: Franck Posey on 08-05-2022 Chloride [Moles/Vol] 106 mmol/L 98-107 [facility] Creatinine [Mass/volume] in Serum or PlasmaOrdered By: Franck Posey on 08-05-2022 Creatinine [Mass/Vol] 1.08 mg/dL 0.70-1.30 [facility] Glucose [Mass/volume] in Ser um or PlasmaOrdered By: Franck Posey on 08-05-2022 Glucose [Mass/Vol] 164 mg/dL 70-100 [facility] Comment on above: ADA recommended refe rence rangeRandom Glucose Reference Range is dependent on time and content of last meal. Glucose of more than 200 mg/dL in a nonstressed, ambulatory subject supports the diagnosis of Diabetes Mellitus. No Panel InformationOrdered By: Franck Posey on 08-05-2022 Estimated GFR (CKD-EPI) > 60.0 mL/Min [facility] Creatinine Clearance (Chem N/A [facility] No Panel Informationon 08-05 > 60.0 Normal [facility] Work Phone: 8.7\S\8.7 Normal 8.6-10.3 [facility] Work Phone: [phone] 27.4\S\27.4 Normal 21.0-31.0 [facility] Work Phone: [phone]\S\106 Normal 98-107 [facility] Work Phone: [phone] 5.1\S\5.1 Normal 3.5-5.1 [facility] Work Phone: 137\S\137 Normal 136-145 [facility] Work Phone: [phone] 1.08\S\1.08 Normal 0.70-1.30 [facility] Work Phone: 15\S\15 Normal 7-25 [facility] Work Phone: 164\S\164 above high threshold 70-100 [facility] Work Phone: Comment on above: Random Glucose Refer ence Range is dependent on time and content of last meal. Glucose of more than 200 mg/dL in a nonstressed, ambulatory subject supports the diagnosis of Diabetes Mellitus. ADA recommended reference range 27\S\27 Normal 13-39 [facility] Work Phone: 3.86\S\3.86 Normal 0.45-5.33 [facility] Work Phone: Comment on above: PERFORMED BY:[facility] [place] [phone] MEDICAL DIRECTORHAILEY CALDERÓN M.D. Potassium [Moles/volume] in Serum or PlasmaOrdered By: Franck Posey on 08-05-2022 Potassium [Moles/Vol] 5.1 mmol/L 3.5-5.1 [facility] Radiologyon 08-05-2022 XR Chest 2 Views Normal [facility] Work Phone: Serum or plasma anion gap de terminationOrdered By: Franck Posey on 08-05-2022 Anion gap [Moles/Vol] 8.7 mmol/L 6.0-15.0 [facility] Sodium [Moles/volume] in Ser um or PlasmaOrdered By: Franck Posey on 08-05-2022 Sodium [Moles/Vol] 137 mmol/L 136-145 [facility] Thyroid Stimulating Hormoneo n 08-05-2022 TSH Qn 3.86 m[IU]/L Normal 0.45-5.33 [facility] Comment on above: Result Comment: PERF ORMED BY: [facility] [address] [place] [address] PATHOLOGIST FACILITY OPERATIONS MANAGER HAILEY CALDERÓN M.D. Performed By: #### C REAT, LYTES, CBC, PP, LIPID, BUN #### [facility] [address] [place] [address] [facility] Thyrotropin [Units/volume] i n Serum or PlasmaOrdered By: Franck Posey on 08-05-2022 TSH Qn 3.86 m[IU]/L 0.45-5.33 [facility] Urea nitrogen [Mass/volume] in Serum or PlasmaOrdered By: Franck Posey on 08-05-2022 Urea nitrogen [Mass/Vol] 15 mg/dL 10-13 [facility] XR chest 2V*on 08-05-2022 XR chest 2V* [facility] [place] [address] [place] [id number] XRay Report Signed Patient: Lesley Quintero MR#: [id number] : 1955 Acct:[id number] Age/Sex: 67 / M ADM Date: 08/05/22 Loc: RT Room: Type: [facility] CLI Attending Dr: Franck Posey DO Copies to: [...] Jr., D.OJohn Paul08/05/2022 2:27 PM Dictation Location: [place] [address] Transcribed By: [facility] 08/05/221426 Dictated By: Faustino Neal Jr, DO 08/05/221426 Signed By: 08/05/22 142 Normal [facility] Office Visit (Cardiology)on 07-14-2022 Follow-up visit Diagnoses/Problems Assessed Dementia (294.20) (F03.90) Diabetes mellitus (250.00) (E11.9) Paroxysmal atrial fibrillation (427.31) (I48.0) Atherosclerosis of coronary artery of [place] heart without angina pectoris (414.01) (I25.10) H/O [...] daily Orders Atherosclerosis of coronary artery of [place] heart without angina pectoris Renew: Aspirin EC 81 MG Oral Tablet Delayed Release; TAKE 1 TABLET DAILY Atherosclerosis of coronary artery of [place] heart without angina pectoris, Diabetes mellitus, Hypertension, Ischemic cardiomyopathy, Shortness of breath Basic Metabolic Panel; Status:Active - Retrospective Authorization; Requested for:[id number]; Atherosclerosis of coronary artery of [place] heart without angina pectoris, Hyperlipidemia Renew: Atorvastatin Calcium 80 MG Oral Tablet; TAKE 1 TABLET AT BEDTIME Class 2 obesity with body mass index (BMI) of 35.0 to 35.9 in adult Healthy Weight Tips; Status:Complete - Retrospective Authorization; Done: [id number] Some eating tips that can help you lose weight.; Status:Complete - Retrospective Authorization; Done: [id number] Hypertension, Ischemic cardiomyopathy Renew: Losartan Potassium 25 MG Oral Tablet; TAKE 1 TABLET DAILY Hypertension, Ischemic cardiomyopathy, Shortness of breath Renew: Spironolactone 25 MG Oral Tablet; TAKE 1 TABLET DAILY Hypertension, Paroxysmal atrial fibrillation, Shortness of breath Echocardiogram; Status:Hold For - Scheduling,Retrospective Authorization; Requested for:[id number]; Paroxysmal atrial fibrillation Renew: Amiodarone HCl - 200 MG Oral Tablet; Take 1 tablet daily IO EKG Electrocardiogram- 12 Lead; Status:Complete; Done: [id number] SocHx: Current every day smoker Tobacco Use Screening; Status:Complete; Done: [id number] Patient Instructions Please bring all medicines, vitamins, [...] Follow up in 5 months in [place]ia Yeager NP Echo in 4 months Chief Complaint LESLEY QUINTERO is being seen for an annual follow-up of. Patient is a 67-year-old gentleman returns for follow-up with significant shortness of breath and exertional dyspnea that is noted on today's inspection and examination. His is even complaining about this. He has no angina. He has no hospitalizations or nitrate usage. He has known ASHD, remote ND, history of multivessel CABG x4 in 2018, [...] MG TABSTAKE 1 TABLET DAILY DIRECTED BY [facility] Famotidine 20 MG Oral TabletTAKE 1 TABLET EVERY (more content not included)... Normal [employer] Tobacco Screening.on 023 Adult depression screening assessment No [facility] 250 DO Work Phone: Fall risk assessment a) No falls within the last year [facility] 250 DO Work Phone: Tobacco use status [facility] a) Yes [facility] emily 250 DO Work Phone: Tobacco Screening. Yes [facility]u emily 250 DO Work Phone: CBC AUTO DIFFon 07-08-2022 BASO # 0.1 103/ul Normal 0.0-0.1 [facility] Comment on above: Performed By: #### B MP, TSH #### [facility] [address] [place] [address] Dr. Paola Bradshaw Basophils/100 WBC (Bld) 0.7 % Normal 0.2-2.0 [facility] Comment on above: Performed By: #### B MODESTA, TSH #### [facility] [address] [place] [address] Dr. Paola Bradshaw EO # 0.5 103/ul Normal 0.0-0.7 [facility] Comment on above: Performed By: #### B MODESTA, TSH #### [facility] [address] [place] [address] Dr. Paola Bradshaw Eosinophils/100 WBC (Bld) 7.3 % Critically high 0.9-7.0 [facility] Comment on above: Performed By: #### B MODESTA, TSH #### [facility] [address] [place] [address] Dr. Paola Bradshaw Erythrocyte distribution width (RBC) [Ratio] 18.6 % Critically high 11.0-15.0 [facility] Comment on above: Performed By: #### B MP, TSH #### [facility] [address] [place] [address] Dr. Paola Bradshaw Hematocrit (Bld) [Volume fraction] 41.1 % Critically low 42.0-54.0 [facility] Comment on above: Performed By: #### B MP, TSH #### [facility] [address] [place] [address] Dr. Paola Bradshaw Hemoglobin (Bld) [Mass/Vol] 12.7 g/dL Critically low 14.0-18.0 [facility] Comment on above: Performed By: #### B MODESTA, TSH #### [facility] [address] [place] [address] Dr. Paola Bradshaw IG # 0.02 10e3/ul Normal 0.00-0.03 [facility] Comment on above: Performed By: #### B MP, TSH #### [facility] [address] [place] [address] Dr. Paola Bradshaw IG % 0.3 % Normal 0.0-0.5 [facility] Comment on above: Performed By: #### B MP, TSH #### [facility] [address] [place] [address] Dr. Paola Bradshaw LYMPH # 2.8 103/ul Normal 1.2-3.8 [facility] Comment on above: Performed By: #### B MP, TSH #### [facility] [address] [place] [address] Dr. Paola Bradshaw Lymphocytes/100 WBC (Bld) 39.5 % Normal 20.5-60.0 [facility] Comment on above: Performed By: #### B MP, TSH #### [facility] [address] [place] [address] Dr. Paola Bradshaw MANUAL DIFF REQ NO Normal [facility] Comment on above: Performed By: #### B MP, TSH #### [facility] [address] [place] [address] Dr. Paola Bradshaw MCH (RBC) [Entitic mass] 25.7 pg Critically low 25.9-34.0 [facility] Comment on above: Performed By: #### B MP, TSH #### [facility] [address] [place] [address] Dr. Paola Bradshaw MCHC (RBC) [Mass/Vol] 30.9 g/dL Normal 29.9-35.2 [facility] Comment on above: Performed By: #### B MP, TSH #### [facility] [address] [place] [address] Dr. Paola Bradshaw MCV (RBC) [Entitic vol] 83.0 fL Normal 80.0-94.0 [facility] Comment on above: Performed By: #### B MP, TSH #### [facility] [address] [address] [address] Paola Bradshaw MONO # 0.7 103/ul Normal 0.3-0.8 [facility] Comment on above: Performed By: #### B MP, TSH #### [facility] [address] [place] [address] Dr. Paola Bradshaw Monocytes/100 WBC (Bld) 10.1 % Normal 1.7-12.0 [facility] Comment on above: Performed By: #### B MP, TSH #### [facility] [address] [place] [address] Dr. Paola Bradshaw NEUT # 3.0 103/ul Normal 1.4-6.5 [facility] Comment on above: Performed By: #### B MP, TSH #### [facility] [address] [place] [address] Dr. Paola Bradshaw Neutrophils/100 WBC (Bld) 42.1 % Critically low 43.0-75.0 [facility] Comment on above: Performed By: #### B MP, TSH #### [facility] [address] [place] [address] Dr. Paola Bradshaw Platelet mean volume (Bld) [Entitic vol] 11.4 fL Normal 9.5-13.5 [facility] Comment on above: Performed By: #### B MP, TSH #### [facility] [address] [place] [address] Dr. Paola Bradshaw PLT 229 103/ul Normal 150-450 [facility] Comment on above: Performed By: #### B MP, TSH #### [facility] [address] [place] [address] Dr. Paola Bradshaw RBC 4.95 106/ul Normal 4.70-6.10 [facility] Comment on above: Performed By: #### B MP, TSH #### [facility] [address] [place] [address] Dr. Paola Bradshaw WBC 7.1 103/ul Normal 4.0-11.0 [facility] Comment on above: Performed By: #### B MP, TSH #### [facility] [address] [address] [address] Paola Bradshaw GLYCOHEMOGLOBIN A1Con 2022 ADA RECOMMENDATION SEE BELOW Normal [facility] Comment on above: Result Comment: ADA RECOMMENDED LIMIT 4.0 - 6.0 ADA THERAPEUTIC TARGET < 7.0 ACTION SUGGESTED > 7.0 Performed By: #### A 1C #### [facility] [address] [address] [address] Paola Bradshaw Glucose [Mass/Vol] 197 mg/dL Normal [facility] Comment on above: Performed By: #### A 1C #### [facility] [address] [address] [address] Paola Bradshaw HbA1c (Bld) [Mass fraction] 8.5 % Critically high 4.5-6.2 [facility] Comment on above: Performed By: #### A 1C #### [facility] [address] [place] [address] Dr. Paola Bradshaw LIPID PROFILEon 07-08-2022 CHOL-HDL RATIO NORM SEE BELOW Normal [facility] Comment on above: Result Comment: 3.3 - 4.4 LOW RISK 4.4 - 7.1 AVERAGE RISK 7.1 - 11.0 MODERATE RISK >11.0 HIGH RISK Performed By: #### L IPID, BMP, ALT #### [facility] [address] [address] [address] Paola Bradshaw Cholesterol [Mass/Vol] 89 mg/dL Normal <=200 [facility] Comment on above: Performed By: #### L IPID, BMP, ALT #### [facility] [address] [place] [address] Dr. Paola Bradshaw Cholesterol in HDL [Mass/Vol] 26 mg/dL Critically low 40-60 [facility] Comment on above: Performed By: #### L IPID, BMP, ALT #### [facility] [address] [place] [address] Dr. Paola Bradshaw Cholesterol in LDL [Mass/Vol] 36.0 mg/dL Normal [facility] Comment on above: Performed By: #### L IPID, BMP, ALT #### [facility] [address] [place] [address] Dr. Paola Bradshaw Cholesterol.total/Chol esterol in HDL [Mass ratio] 3.4 {ratio} Normal [facility] Comment on above: Performed By: #### L IPID, BMP, ALT #### [facility] [address] [place] [address] Dr. Paola Bradshaw HDL NORMAL > or = 60 mg/dl - LO W CARDIOVASCULAR RISK <40 mg/dl - HIGH CARDIOVASCULAR RISK Normal [facility] Comment on above: Performed By: #### L IPID, BMP, ALT #### [facility] [address] [place] [address] Dr. Paola Bradshaw LDL CALC NORMAL SEE BELOW Normal [facility] Comment on above: Result Comment: <100 mg/dl OPTIMAL 100 - 129 mg/dl NEAR OR ABOVE OPTIMAL 130 - 159 mg/dl BORDERLINE HIGH 160 - 189 mg/dl HIGH >190 mg/dl VERY HIGH Performed By: #### L IPID, BMP, ALT #### [facility] [address] [place] [address] Dr. Paola Bradshaw Triglyceride [Mass/Vol] 135 mg/dL Normal <=150 [facility] Comment on above: Performed By: #### L IPID, BMP, ALT #### [facility] [address] [place] [address] Dr. Paola Bradshaw VLDL CALC 27.0 mg/dL Normal [facility] Comment on above: Performed By: #### L IPID, BMP, ALT #### [facility] [address] [place] [address] Dr. Paola Bradshaw MICROALBUMIN, RAND URon 04- mALB 7.4 mg/L Normal <=30.0 [facility] Comment on above: Performed By: #### B MP, TSH #### [facility] [address] [place] [address] Dr. Paola Bradshaw PROF CHEM 8 (BAS METB)on Anion gap [Moles/Vol] 12.0 mmol/L Normal [facility] Comment on above: Performed By: #### L IPID, BMP, ALT #### [facility] [address] [address] [address] Paola Bradshaw Calcium [Mass/Vol] 8.4 mg/dL Critically low 8.5-10.1 Th [facility] Comment on above: Performed By: #### L IPID, BMP, ALT #### [facility] [address] [address] [address] Paola Bradshaw Chloride [Moles/Vol] 106 mmol/L Normal 98-107 [facility] Comment on above: Performed By: #### L IPID, BMP, ALT #### [facility] [address] [address] [address] Paola Bradshaw CO2 [Moles/Vol] 27.5 mmol/L Normal 21.0-32.0 [facility] Comment on above: Performed By: #### L IPID, BMP, ALT #### [facility] [address] [address] [address] Paola Bradshaw Creatinine [Mass/Vol] 1.11 mg/dL Normal 0.70-1.30 [facility] Comment on above: Performed By: #### L IPID, BMP, ALT #### [facility] [address] [address] [address] Paola Bradshaw EGFR-AF IRAQI >60 Normal >=60 [facility] Comment on above: Performed By: #### L IPID, BMP, ALT #### [facility] [address] [address] [address] Paola Bradshaw EGFR-NON AF IRAQI >60 Normal >=60 [facility] Comment on above: Performed By: #### L IPID, BMP, ALT #### [facility] [address] [address] [address] Paola Bradshaw Glucose [Mass/Vol] 172 mg/dL Critically high 74-106 [facility] Comment on above: Performed By: #### L IPID, BMP, ALT #### [facility] [address] [place] [address] Dr. Paola Bradshaw Potassium [Moles/Vol] 4.5 mmol/L Normal 3.5-5.1 [facility] Comment on above: Performed By: #### L IPID, BMP, ALT #### [facility] [address] [address] [address] Paola Bradshaw Sodium [Moles/Vol] 141 mmol/L Normal 136-145 [facility] Comment on above: Performed By: #### L IPID, BMP, ALT #### [facility] [address] [address] [address] Paola Bradshaw Urea nitrogen [Mass/Vol] 11.0 mg/dL Normal 7.0-18.0 [facility] Comment on above: Performed By: #### L IPID, BMP, ALT #### [facility] [address] [place] [address] Dr. Paola Bradshaw Urea nitrogen/Creatinine [Mass ratio] 9.9 mg/mg Normal [facility] Comment on above: Performed By: #### L IPID, BMP, ALT #### [facility] [address] [place] [address] Dr. Paola Bradshaw PTon 07-08-2022 ALT [Catalytic activity/Vol] 52 U/L Normal 16-63 [facility] Comment on above: Performed By: #### L IPID, BMP, ALT #### [facility] [address] [place] [address] Dr. Paola Bradshaw Falls Screening (Age 18+)on 05-13-2022 Fall risk assessment a) No falls within the last year [facility] 250 DO Work Phone: LEVETIRACETAM, SERUM OR PLAS MAon 04-07-2022 Levetiracetam, S 18.2 ug/mL Normal 10.0-40.0 [facility] Comment on above: Performed By: #### K EPPRA #### [facility] [address] [place] [address] Dr. Paola Bradshaw GLYCOHEMOGLOBIN A1Con 2022 ADA RECOMMENDATION SEE BELOW Normal [facility] Comment on above: Result Comment: ADA RECOMMENDED LIMIT 4.0 - 6.0 ADA THERAPEUTIC TARGET < 7.0 ACTION SUGGESTED > 7.0 Performed By: #### A 1C #### [facility] [address] [place], [place] [address] Dr. Paola Bradshaw Glucose [Mass/Vol] 286 mg/dL Normal [facility] Comment on above: Performed By: #### A 1C #### [facility] [address] [place], [place] [address] Dr. Paola Bradshaw HbA1c (Bld) [Mass fraction] 11.6 % Critically high 4.5-6.2 [facility] Comment on above: Performed By: #### A 1C #### [facility] [address] [place], [place] [address] Dr. Paola Bradshaw Creatinine and Glomerular fi ltration rate.predicted panel (S/P/Bld)Ordered By: Franck Posey on 02-04-2022 Creatinine [Mass/Vol] 0.95 mg/dL 0.64-1.27 [facility] Estimated glomerular filtrat ion rate (GFR) non- AmericanOrdered By: Franck Posey on 02-04-2022 GFR/1.73 sq M.predicted among non-blacks MDRD (S/P/Bld) [Vol rate/Area] > 60 mL/Min [facility] No Panel InformationOrdered By: Franck Posey on 02-04-2022 Estimated GFR () > 60 mL/Min [facility] Comment on above: GFR estimated refere nce range: According to KDOQI guidelines, <60 ml/min/1.73m2 is sufficient to diagnose a patient with chronic kidney disease. Pharmacy Creatinine Clearance (Chem N/A [facility] No Panel Informationon 02-04 6.7\S\6.7 Normal 6.0-15.0 [facility] 250 DO Work Phone: 9.0\S\9.0 Normal 8.2-10.2 -[facility] 250 DO Work Phone: 28.0\S\28.0 Normal 22.0-30.0 -[facility] 250 DO Work Phone: 105\S\105 Normal 95-114 [facility] Ashley diaz 250 DO Work Phone: 4.7\S\4.7 Normal 3.5-5.1 [facility] Ashley diaz 250 DO Work Phone: 135\S\135 below low threshold 136-146 [facility] Ashley diaz 250 DO Work Phone: > 60 Normal [facility] Ashley diaz 250 DO Work Phone: Comment on above: GFR estimated refere nce range: According to KDOQI guidelines, <60 ml/min/1.73m2 is sufficient to diagnose a patient with chronic kidney disease. 0.95\S\0.95 Normal 0.64-1.27 [facility] Ashley diaz 250 DO Work Phone: [phone] 11\S\11 Normal 9-23 [facility] Ashley diaz 250 DO Work Phone: 238\S\238 above high threshold 70-100 [facility] Ashley diaz 250 DO Work Phone: Comment on above: Random Glucose Refer ence Range is dependent on time and content of last meal. Glucose of more than 200 mg/dL in a nonstressed, ambulatory subject supports the diagnosis of Diabetes Mellitus. ADA recommended reference range 23\S\23 Normal 10-42 [facility] Ashley Michaels DO Work Phone: 2.80\S\2.80 Normal 0.45-5.33 [facility] Ashley diaz 250 DO Work Phone: Comment on above: PERFORMED BY:[facility] [place], [place] [id number] MEDICAL DIRECTORHAILEY CALDERÓN M.D. Radiologyon 02-04-2022 XR Chest 2 Views Normal [facility] Ashley Michaels DO Work Phone: Serum or plasma anion gap de terminationOrdered By: Franck Posey on 02-04-2022 Anion gap [Moles/Vol] 6.7 mmol/L 6.0-15.0 [facility] Serum or plasma aspartate am inotransferase measurement (enzymatic activity/volume)Ordered By: Franck Posey on 02-04-2022 AST [Catalytic activity/Vol] 23 U/L 10-42 [facility] Serum or plasma calcium daria urement (mass/volume)Ordered By: Franck Posey on 02-04-2022 Calcium [Mass/Vol] 9.0 mg/dL 8.2-10.2 [facility] Serum or plasma chloride gisselle surement (moles/volume)Ordered By: Franck Posey on 02-04-2022 Chloride [Moles/Vol] 105 mmol/L 95-114 [facility] Serum or plasma glucose daria urement (mass/volume)Ordered By: Franck Posey on 02-04-2022 Glucose [Mass/Vol] 238 mg/dL 70-100 [facility] Comment on above: ADA recommended refe rence rangeRandom Glucose Reference Range is dependent on time and content of last meal. Glucose of more than 200 mg/dL in a nonstressed, ambulatory subject supports the diagnosis of Diabetes Mellitus. Serum or plasma potassium me asurement (moles/volume)Ordered By: Franck Posey on 02-04-2022 Potassium [Moles/Vol] 4.7 mmol/L 3.5-5.1 [facility] Serum or plasma sodium measu rement (moles/volume)Ordered By: Franck Posey on 02-04-2022 Sodium [Moles/Vol] 135 mmol/L 136-146 [facility] Serum or plasma total carbon dioxide measurement (moles/volume)Ordered By: Franck Posey on 02-04-2022 CO2 [Moles/Vol] 28.0 mmol/L 22.0-30.0 [facility] Serum or plasma urea nitroge n measurement (mass/volume)Ordered By: Franck Posey on 02-04-2022 Urea nitrogen [Mass/Vol] 11 mg/dL 9-23 [facility] TSH DL <= 0.005 mIU/L QnOrde red By: Franck Posey on 02-04-2022 TSH Qn 2.80 m[IU]/L 0.45-5.33 [facility] BNPon 11-14-2021 Natriuretic peptide B (Bld) [Mass/Vol] 703.0 pg/mL Normal <=900.0 [facility] Comment on above: Performed By: #### B MP, TSH #### [facility] [address] [address] [address] Paola Bradshaw PROF CHEM 8 (BAS METB)on Anion gap [Moles/Vol] 11.1 mmol/L Normal [facility] Comment on above: Performed By: #### B MP, TSH #### [facility] [address] [address] [address] Paola Bradshaw Calcium [Mass/Vol] 8.2 mg/dL Critically low 8.5-10.1 [facility] Comment on above: Performed By: #### B MP, TSH #### [facility] [address] [place] [address] Dr. Paola Bradshaw Chloride [Moles/Vol] 103 mmol/L Normal 98-107 [facility] Comment on above: Performed By: #### B MP, TSH #### [facility] [address] [address] [address] Paola Bradshaw CO2 [Moles/Vol] 25.3 mmol/L Normal 21.0-32.0 [facility] Comment on above: Performed By: #### B MP, TSH #### [facility] [address] [address] [address] Paola Bradshaw Creatinine [Mass/Vol] 1.08 mg/dL Normal 0.70-1.30 [facility] Comment on above: Performed By: #### B MP, TSH #### [facility] [address] [address] [address] Paola Bradshaw EGFR-AF IRAQI >60 Normal >=60 [facility] Comment on above: Performed By: #### B MP, TSH #### [facility] [address] [address] [address] Paola Bradshaw EGFR-NON AF IRAQI >60 Normal >=60 [facility] Comment on above: Performed By: #### B MP, TSH #### [facility] [address] [address] [address] Paola Bradshaw Glucose [Mass/Vol] 255 mg/dL Critically high 74-106 [facility] Comment on above: Performed By: #### B MP, TSH #### [facility] [address] [address] [address] Paola Bradshaw Potassium [Moles/Vol] 4.4 mmol/L Normal 3.5-5.1 [facility] Comment on above: Performed By: #### B MP, TSH #### [facility] [address] [address] [address] Paola Bradshaw Sodium [Moles/Vol] 135 mmol/L Critically low 136-145 Th [facility] Comment on above: Performed By: #### B MP, TSH #### [facility] [address] [address] [address] Paola Bradshaw Urea nitrogen [Mass/Vol] 12.0 mg/dL Normal 7.0-18.0 [facility] Comment on above: Performed By: #### B MP, TSH #### [facility] [address] [address] [address] Paola Bradshaw Urea nitrogen/Creatinine [Mass ratio] 11.1 mg/mg Normal [facility] Comment on above: Performed By: #### B MP, TSH #### [facility] [address] [address] [address] Paola Bradshaw XR CHEST 2 Von [...] by: GINO SAGASTUME Date: 2021-11-14 16:58 Normal [facility] CBC AUTO DIFFon 10-21-2021 BASO # 0.1 103/ul Normal 0.0-0.1 [facility] Comment on above: Performed By: #### B MODESTA, TSH #### [facility] [address] [place] [address] Dr. Paola Bradshaw Basophils/100 WBC (Bld) 0.6 % Normal 0.2-2.0 [facility] Comment on above: Performed By: #### B MODESTA, TSH #### [facility] [address] [place] [address] Dr. Paola Bradshaw EO # 0.4 103/ul Normal 0.0-0.7 [facility] Comment on above: Performed By: #### B MODESTA, TSH #### [facility] [address] [place] [address] Dr. Paola Bradshaw Eosinophils/100 WBC (Bld) 4.2 % Normal 0.9-7.0 [facility] Comment on above: Performed By: #### B MODESTA, TSH #### [facility] [address] [place] [address] Dr. Paola Bradshaw Erythrocyte distribution width (RBC) [Ratio] 16.4 % Critically high 11.0-15.0 [facility] Comment on above: Performed By: #### B MODESTA, TSH #### [facility] [address] [place] [address] Dr. Paola Bradshaw Hematocrit (Bld) [Volume fraction] 39.7 % Critically low 42.0-54.0 [facility] Comment on above: Performed By: #### B MODESTA, TSH #### [facility] [address] [place] [address] Dr. Paola Bradshaw Hemoglobin (Bld) [Mass/Vol] 12.6 g/dL Critically low 14.0-18.0 [facility] Comment on above: Performed By: #### B MODESTA, TSH #### [facility] [address] [place] [address] Dr. Paola Bradshaw IG # 0.04 10e3/ul Critically high 0.00-0.03 [facility] Comment on above: Performed By: #### B MODESTA, TSH #### [facility] [address] [place] [address] Dr. Paola Bradshaw IG % 0.5 % Normal 0.0-0.5 [facility] Comment on above: Performed By: #### B MP, TSH #### [facility] [address] [place] [address] Dr. Paola Bradshaw LYMPH # 2.5 103/ul Normal 1.2-3.8 [facility] Comment on above: Performed By: #### B MP, TSH #### [facility] [address] [place] [address] Dr. Paola Bradshaw Lymphocytes/100 WBC (Bld) 29.2 % Normal 20.5-60.0 [facility] Comment on above: Performed By: #### B MP, TSH #### [facility] [address] [place] [address] Dr. Paola Bradshaw MANUAL DIFF REQ NO Normal [facility] Comment on above: Performed By: #### B MP, TSH #### [facility] [address] [place] [address] Dr. Paola Bradshaw MCH (RBC) [Entitic mass] 27.3 pg Normal 25.9-34.0 [facility] Comment on above: Performed By: #### B MP, TSH #### [facility] [address] [place] [address] Dr. Paola Bradshaw MCHC (RBC) [Mass/Vol] 31.7 g/dL Normal 29.9-35.2 [facility] Comment on above: Performed By: #### B MP, TSH #### [facility] [address] [place] [address] Dr. Paola Bradshaw MCV (RBC) [Entitic vol] 86.1 fL Normal 80.0-94.0 [facility] Comment on above: Performed By: #### B MP, TSH #### [facility] [address] [place] [address] Dr. Paola Bradshaw MONO # 0.8 103/ul Normal 0.3-0.8 [facility] Comment on above: Performed By: #### B MP, TSH #### [facility] [address] [place] [address] Dr. Paola Bradshaw Monocytes/100 WBC (Bld) 9.8 % Normal 1.7-12.0 [facility] Comment on above: Performed By: #### B MP, TSH #### [facility] [address] [place] [address] Dr. Paoal Bradshaw NEUT # 4.8 103/ul Normal 1.4-6.5 [facility] Comment on above: Performed By: #### B MP, TSH #### [facility] [address] [place] [address] Dr. Paola Bradshaw Neutrophils/100 WBC (Bld) 55.7 % Normal 43.0-75.0 [facility] Comment on above: Performed By: #### B MODESTA, TSH #### [facility] [address] [place] [address] Dr. Paola Bradshaw Platelet mean volume (Bld) [Entitic vol] 11.4 fL Normal 9.5-13.5 [facility] Comment on above: Performed By: #### B MODESTA, TSH #### [facility] [address] [place] [address] Dr. Paola Bradshaw PLT 218 103/ul Normal 150-450 [facility] Comment on above: Performed By: #### B MODESTA, TSH #### [facility] [address] [place] [address] Dr. Paola Bradshaw RBC 4.61 106/ul Critically low 4.70-6.10 [facility] Comment on above: Performed By: #### B MODESTA, TSH #### [facility] [address] [place] [address] Dr. Paola Bradshaw WBC 8.5 103/ul Normal 4.0-11.0 [facility] Comment on above: Performed By: #### B MP, TSH #### [facility] [address] [place] [address] Dr. Paola Bradshaw CRPon 10-21-2021 CRP 0.4 mg/dL Normal <=1.0 [facility] Comment on above: Performed By: #### B MODESTA, TSH #### [facility] [address] [address] [address] Paola Bradshaw SED RATE WESTERGRENon 2021 SED RATE 33 mm/hr Critically high <=20 [facility] Comment on above: Performed By: #### B MP, TSH #### [facility] [address] [place] [address] Dr. Paola Bradshaw CBC AUTO DIFFon 10-08-2021 BASO # 0.1 103/ul Normal 0.0-0.1 [facility] Comment on above: Performed By: #### B MP, TSH #### [facility] [address] [place] [address] Dr. Paola Bradshaw Basophils/100 WBC (Bld) 0.5 % Normal 0.2-2.0 [facility] Comment on above: Performed By: #### B MP, TSH #### [facility] [address] [place] [address] Dr. Paola Bradshaw EO # 0.4 103/ul Normal 0.0-0.7 [facility] Comment on above: Performed By: #### B MP, TSH #### [facility] [address] [place] [address] Dr. Paola Bradshaw Eosinophils/100 WBC (Bld) 4.2 % Normal 0.9-7.0 [facility] Comment on above: Performed By: #### B MP, TSH #### [facility] [address] [place] [address] Dr. Paola Bradshaw Erythrocyte distribution width (RBC) [Ratio] 16.4 % Critically high 11.0-15.0 [facility] Comment on above: Performed By: #### B MP, TSH #### [facility] [address] [place] [address] Dr. Paola Bradshaw Hematocrit (Bld) [Volume fraction] 44.3 % Normal 42.0-54.0 [facility] Comment on above: Performed By: #### B MP, TSH #### [facility] [address] [place] [address] Dr. Paola Bradshaw Hemoglobin (Bld) [Mass/Vol] 14.0 g/dL Normal 14.0-18.0 [facility] Comment on above: Performed By: #### B MP, TSH #### [facility] [address] [place] [address] Dr. Paola Bradshaw IG # 0.04 10e3/ul Critically high 0.00-0.03 [facility] Comment on above: Performed By: #### B MP, TSH #### [facility] [address] [place] [address] Dr. Paola Bradshaw IG % 0.4 % Normal 0.0-0.5 [facility] Comment on above: Performed By: #### B MP, TSH #### [facility] [address] [place] [address] Dr. Paola Bradshaw LYMPH # 3.0 103/ul Normal 1.2-3.8 [facility] Comment on above: Performed By: #### B MP, TSH #### [facility] [address] [place] [address] Dr. Paola Bradshaw Lymphocytes/100 WBC (Bld) 31.6 % Normal 20.5-60.0 [facility] Comment on above: Performed By: #### B MP, TSH #### [facility] [address] [place] [address] Dr. Paola Bradshaw MANUAL DIFF REQ NO Normal [facility] Comment on above: Performed By: #### B MP, TSH #### [facility] [address] [place] [address] Dr. Paola Bradshaw MCH (RBC) [Entitic mass] 27.2 pg Normal 25.9-34.0 [facility] Comment on above: Performed By: #### B MP, TSH #### [facility] [address] [place] [address] Dr. Paola Bradshaw MCHC (RBC) [Mass/Vol] 31.6 g/dL Normal 29.9-35.2 [facility] Comment on above: Performed By: #### B MP, TSH #### [facility] [address] [place] [address] Dr. Paola Bradshaw MCV (RBC) [Entitic vol] 86.2 fL Normal 80.0-94.0 [facility] Comment on above: Performed By: #### B MP, TSH #### [facility] [address] [place] [address] Dr. Paola Bradshaw MONO # 0.7 103/ul Normal 0.3-0.8 [facility] Comment on above: Performed By: #### B MP, TSH #### [facility] [address] [place] [address] Dr. Paola Bradshaw Monocytes/100 WBC (Bld) 7.6 % Normal 1.7-12.0 [facility] Comment on above: Performed By: #### B MP, TSH #### [facility] [address] [place] [address] Dr. Paola Bradshaw NEUT # 5.3 103/ul Normal 1.4-6.5 [facility] Comment on above: Performed By: #### B MP, TSH #### [facility] [address] [place] [address] Dr. Paola Bradshaw Neutrophils/100 WBC (Bld) 55.7 % Normal 43.0-75.0 [facility] Comment on above: Performed By: #### B MP, TSH #### [facility] [address] [place] [address] Dr. Paola Bradshaw Platelet mean volume (Bld) [Entitic vol] 12.2 fL Normal 9.5-13.5 [facility] Comment on above: Performed By: #### B MP, TSH #### [facility] [address] [place] [address] Dr. Paola Bradshaw PLT 195 103/ul Normal 150-450 [facility] Comment on above: Performed By: #### B MP, TSH #### [facility] [address] [place] [address] Dr. Paola Bradshaw RBC 5.14 106/ul Normal 4.70-6.10 [facility] Comment on above: Performed By: #### B MP, TSH #### [facility] [address] [place] [address] Dr. Paola Bradshaw WBC 9.6 103/ul Normal 4.0-11.0 [facility] Comment on above: Performed By: #### B MP, TSH #### [facility] [address] [place] [address] Dr. Paola Bradshaw GLYCOHEMOGLOBIN A1Con 2021 ADA RECOMMENDATION SEE BELOW Normal [facility] Comment on above: Result Comment: ADA RECOMMENDED LIMIT 4.0 - 6.0 ADA THERAPEUTIC TARGET < 7.0 ACTION SUGGESTED > 7.0 Performed By: #### B MP, TSH #### [facility] [address] [place] [address] Dr. Paola Bradshaw Glucose [Mass/Vol] 203 mg/dL Normal [facility] Comment on above: Performed By: #### B MP, TSH #### [facility] [address] [place] [address] Dr. Paola Bradshaw HbA1c (Bld) [Mass fraction] 8.7 % Critically high 4.5-6.2 [facility] Comment on above: Performed By: #### B MP, TSH #### [facility] [address] [place] [address] Dr. Paola Bradshaw MICROALBUMIN, RAND URon 07- mALB 5.9 mg/L Normal <=30.0 [facility] Comment on above: Performed By: #### B MP, TSH #### [facility] [address] [place] [address] Dr. Paola Bradshaw PROF CHEM 8 (BAS METB)on Anion gap [Moles/Vol] 14.1 mmol/L Normal [facility] Comment on above: Performed By: #### B MP, TSH #### [facility] [address] [place] [address] Dr. Paola Bradshaw Calcium [Mass/Vol] 8.8 mg/dL Normal 8.5-10.1 [facility] Comment on above: Performed By: #### B MP, TSH #### [facility] [address] [place] [address] Dr. Paola Bradshaw Chloride [Moles/Vol] 101 mmol/L Normal 98-107 [facility] Comment on above: Performed By: #### B MP, TSH #### [facility] [address] [address] [address] Paola Bradshaw CO2 [Moles/Vol] 25.6 mmol/L Normal 21.0-32.0 [facility] Comment on above: Performed By: #### B MP, TSH #### [facility] [address] [place] [address] Dr. Paola Bradshaw Creatinine [Mass/Vol] 1.17 mg/dL Normal 0.70-1.30 [facility] Comment on above: Performed By: #### B MP, TSH #### [facility] [address] [place] [address] Dr. Paola Bradshaw EGFR-AF IRAQI >60 Normal >=60 [facility] Comment on above: Performed By: #### B MP, TSH #### [facility] [address] [place] [address] Dr. Paola Bradshaw EGFR-NON AF IRAQI >60 Normal >=60 [facility] Comment on above: Performed By: #### B MP, TSH #### [facility] [address] [place] [address] Dr. Paola Bradshaw Glucose [Mass/Vol] 379 mg/dL Critically high 74-106 [facility] Comment on above: Performed By: #### B MP, TSH #### [facility] [address] [place] [address] Dr. Paola Bradshaw Potassium [Moles/Vol] 4.7 mmol/L Normal 3.5-5.1 [facility] Comment on above: Performed By: #### B MP, TSH #### [facility] [address] [place] [address] Dr. Paola Bradshaw Sodium [Moles/Vol] 136 mmol/L Normal 136-145 [facility] Comment on above: Performed By: #### B MP, TSH #### [facility] [address] [place] [address] Dr. Paola Bradshaw Urea nitrogen [Mass/Vol] 18.0 mg/dL Normal 7.0-18.0 [facility] Comment on above: Performed By: #### B MP, TSH #### [facility] [address] [place] [address] Dr. Paola Bradshaw Urea nitrogen/Creatinine [Mass ratio] 15.4 mg/mg Normal [facility] Comment on above: Performed By: #### B MP, TSH #### [facility] [address] [place] [address] Dr. Paola Bradshaw TSHon 10-08-2021 TSH 3.026 uIU/mL Normal 0.358-3.74 0 [facility] Comment on above: Performed By: #### B MP, TSH #### [facility] [address] [place] [address] Dr. Paola Bradshaw LEVETIRACETAM, SERUM OR PLAS MAon 09-16-2021 Levetiracetam, S 9.0 ug/mL Critically low 10.0-40.0 [facility] Comment on above: Performed By: #### B MP, TSH #### [facility] [address] [place] [address] Dr. Paola Bradshaw CBC AUTO DIFFon 09-09-2021 BASO # 0.1 103/ul Normal 0.0-0.1 [facility] Comment on above: Performed By: #### B MP, TSH #### [facility] [address] [place] [address] Dr. Paola Bradshaw Basophils/100 WBC (Bld) 0.6 % Normal 0.2-2.0 [facility] Comment on above: Performed By: #### B MP, TSH #### [facility] [address] [place] [address] Dr. Paola Bradshaw EO # 0.4 103/ul Normal 0.0-0.7 [facility] Comment on above: Performed By: #### B MP, TSH #### [facility] [address] [place] [address] Dr. Paola Bradshaw Eosinophils/100 WBC (Bld) 4.8 % Normal 0.9-7.0 [facility] Comment on above: Performed By: #### B MP, TSH #### [facility] [address] [place] [address] Dr. Paola Bradshaw Erythrocyte distribution width (RBC) [Ratio] 15.2 % Critically high 11.0-15.0 [facility] Comment on above: Performed By: #### B MODESTA, TSH #### [facility] [address] [place] [address] Dr. Paola Bradshaw Hematocrit (Bld) [Volume fraction] 39.6 % Critically low 42.0-54.0 [facility] Comment on above: Performed By: #### B MODESTA, TSH #### [facility] [address] [place] [address] Dr. Paola Bradshaw Hemoglobin (Bld) [Mass/Vol] 12.7 g/dL Critically low 14.0-18.0 [facility] Comment on above: Performed By: #### B MODESTA, TSH #### [facility] [address] [place] [address] Dr. Paola Bradshaw IG # 0.02 10e3/ul Normal 0.00-0.03 [facility] Comment on above: Performed By: #### B MODESTA, TSH #### [facility] [address] [place] [address] Dr. Paola Bradshaw IG % 0.2 % Normal 0.0-0.5 [facility] Comment on above: Performed By: #### B MODESTA, TSH #### [facility] [address] [place] [address] Dr. Paola Bradshaw LYMPH # 3.5 103/ul Normal 1.2-3.8 [facility] Comment on above: Performed By: #### B MODESTA, TSH #### [facility] [address] [place] [address] Dr. Paola Bradshaw Lymphocytes/100 WBC (Bld) 42.5 % Normal 20.5-60.0 [facility] Comment on above: Performed By: #### B MODESTA, TSH #### [facility] [address] [place] [address] Dr. Paola Bradshaw MANUAL DIFF REQ NO Normal [facility] Comment on above: Performed By: #### B MODESTA, TSH #### [facility] [address] [place] [address] Dr. Paola Bradshaw MCH (RBC) [Entitic mass] 27.5 pg Normal 25.9-34.0 [facility] Comment on above: Performed By: #### B MP, TSH #### [facility] [address] [place] [address] Dr. Paola Bradshaw MCHC (RBC) [Mass/Vol] 32.1 g/dL Normal 29.9-35.2 [facility] Comment on above: Performed By: #### B MP, TSH #### [facility] [address] [place] [address] Dr. Paola Bradshaw MCV (RBC) [Entitic vol] 85.7 fL Normal 80.0-94.0 [facility] Comment on above: Performed By: #### B MODESTA, TSH #### [facility] [address] [place] [address] Dr. Paola Bradshaw MONO # 0.7 103/ul Normal 0.3-0.8 [facility] Comment on above: Performed By: #### B MODESTA, TSH #### [facility] [address] [place] [address] Dr. Paola Bradshaw Monocytes/100 WBC (Bld) 8.5 % Normal 1.7-12.0 [facility] Comment on above: Performed By: #### B MP, TSH #### [facility] [address] [place] [address] Dr. Paola Bradshaw NEUT # 3.6 103/ul Normal 1.4-6.5 [facility] Comment on above: Performed By: #### B MP, TSH #### [facility] [address] [place] [address] Dr. Paola Bradshaw Neutrophils/100 WBC (Bld) 43.4 % Normal 43.0-75.0 [facility] Comment on above: Performed By: #### B MP, TSH #### [facility] [address] [place] [address] Dr. Paola Bradshaw Platelet mean volume (Bld) [Entitic vol] 12.9 fL Normal 9.5-13.5 [facility] Comment on above: Performed By: #### B MP, TSH #### [facility] [address] [place] [address] Dr. Paola Bradshaw PLT 206 103/ul Normal 150-450 [facility] Comment on above: Performed By: #### B MP, TSH #### [facility] [address] [place] [address] Dr. Paola Bradshaw RBC 4.62 106/ul Critically low 4.70-6.10 [facility] Comment on above: Performed By: #### B MP, TSH #### [facility] [address] [place] [address] Dr. Paola Bradshaw WBC 8.3 103/ul Normal 4.0-11.0 [facility] Comment on above: Performed By: #### B MP, TSH #### [facility] [address] [place] [address] Dr. Paola Bradshaw PROF 14(COMP METB)on 022 Albumin [Mass/Vol] 3.4 g/dL Normal 3.4-5.0 [facility] Comment on above: Performed By: #### C MP #### [facility] [address] [place] [address] Dr. Paola Bradshaw Albumin/Globulin [Mass ratio] 1.0 {ratio} Normal [facility] Comment on above: Performed By: #### C MP #### [facility] [address] [place] [address] Dr. Paola Bradshaw ALP [Catalytic activity/Vol] 109 U/L Normal 46-116 [facility] Comment on above: Performed By: #### C MP #### [facility] [address] [place] [address] Dr. Paola Bradshaw ALT [Catalytic activity/Vol] 44 U/L Normal 16-63 [facility] Comment on above: Performed By: #### C MP #### [facility] [address] [place] [address] Dr. Paola Bradshaw Anion gap [Moles/Vol] 11.4 mmol/L Normal [facility] Comment on above: Performed By: #### C MP #### [facility] [address] [address] [address] Paola Bradshaw AST [Catalytic activity/Vol] 20 U/L Normal 15-37 [facility] Comment on above: Performed By: #### C MP #### [facility] [address] [place] [address] Dr. Paola Bradshaw Bilirubin [Mass/Vol] 0.4 mg/dL Normal 0.2-1.0 [facility] Comment on above: Performed By: #### C MP #### [facility] [address] [place] [address] Dr. Paola Bradshaw Calcium [Mass/Vol] 8.5 mg/dL Normal 8.5-10.1 [facility] Comment on above: Performed By: #### C MP #### [facility] [address] [place] [address] Dr. Paola Bradshaw Chloride [Moles/Vol] 103 mmol/L Normal 98-107 [facility] Comment on above: Performed By: #### C MP #### [facility] [address] [place] [address] Dr. Paola Bradshaw CO2 [Moles/Vol] 25.9 mmol/L Normal 21.0-32.0 [facility] Comment on above: Performed By: #### C MP #### [facility] [address] [place] [address] Dr. Paola Bradshaw Creatinine [Mass/Vol] 1.14 mg/dL Normal 0.70-1.30 [facility] Comment on above: Performed By: #### C MP #### [facility] [address] [place] [address] Dr. Paola Bradshaw EGFR-AF IRAQI >60 Normal >=60 [facility] Comment on above: Performed By: #### C MP #### [facility] [address] [place] [address] Dr. Paola Bradshaw EGFR-NON AF IRAQI >60 Normal >=60 [facility] Comment on above: Performed By: #### C MP #### [facility] [address] [place] [address] Dr. Paola Bradshaw Globulin (S) [Mass/Vol] 3.5 g/dL Normal [facility] Comment on above: Performed By: #### C MP #### [facility] [address] [address] [address] Paola Bradshaw Glucose [Mass/Vol] 308 mg/dL Critically high 74-106 [facility] Comment on above: Performed By: #### C MP #### [facility] [address] [address] [address] Paola Bradshaw Potassium [Moles/Vol] 4.3 mmol/L Normal 3.5-5.1 [facility] Comment on above: Performed By: #### C MP #### [facility] [address] [address] [address] Paola Bradshaw Protein [Mass/Vol] 6.9 g/dL Normal 6.4-8.2 [facility] Comment on above: Performed By: #### C MP #### [facility] [address] [address] [address] Paola Bradshaw Sodium [Moles/Vol] 136 mmol/L Normal 136-145 [facility] Comment on above: Performed By: #### C MP #### [facility] [address] [address] [address] Paola Bradshaw Urea nitrogen [Mass/Vol] 18.0 mg/dL Normal 7.0-18.0 [facility] Comment on above: Performed By: #### C MP #### [facility] [address] [address] [address] Paola Bradshaw Urea nitrogen/Creatinine [Mass ratio] 15.8 mg/mg Normal [facility] Comment on above: Performed By: #### C MP #### [facility] [address] [address] [address] Paola Bradshaw No Panel Informationon 08-19 24.0\S\24.0 Normal 22.0-30.0 -[facility] emily 250 DO Work Phone: 104\S\104 Normal 95-114 -[facility] 250 DO Work Phone: 4.7\S\4.7 Normal 3.5-5.1 [facility] DO Work Phone: 138\S\138 Normal 136-146 [facility] 250 DO Work Phone: > 60 Normal [facility] 250 DO Work Phone: Comment on above: GFR estimated refere nce range: According to KDOQI guidelines, <60 ml/min/1.73m2 is sufficient to diagnose a patient with chronic kidney disease. 9.0\S\9.0 Normal 8.2-10.2 [facility] 250 DO Work Phone: 1.16\S\1.16 Normal 0.64-1.27 [facility] em[facility] 250 DO Work Phone: 11\S\11 Normal 9-23 [facility] 250 DO Work Phone: 189\S\189 above high threshold 70-100 [facility] 250 DO Work Phone: Comment on above: Random Glucose Refer ence Range is dependent on time and content of last meal. Glucose of more than 200 mg/dL in a nonstressed, ambulatory subject supports the diagnosis of Diabetes Mellitus. ADA recommended reference range 31\S\31 Normal 10-42 [facility] emily 250 DO Work Phone: 2.90\S\2.90 Normal 0.45-5.33 [facility] 250 DO Work Phone: Comment on above: PERFORMED BY:[address] [id number] [address] [place] [id number] MEDICAL DIRECTORHAILEY CALDERÓN M.D. Radiologyon 08-19-2021 XR Chest 2 Views Normal [facility] 250 DO Work Phone: No Panel Informationon 06-06 > 60 [facility] Work Phone: Comment on above: GFR estimated refere nce range: According to KDOQI guidelines, <60 ml/min/1.73m2 is sufficient to diagnose a patient with chronic kidney disease. 1.05\S\1.05 Normal 0.64-1.27 [facility] jimenezy 250 DO Work Phone: 17\S\17 Normal 9-23 [facility] diaz 250 DO Work Phone: 289\S\289 above high threshold 70-[address] [facility] jimenezy 250 DO Work Phone: Comment on above: Random Glucose Refer ence Range is dependent on time and content of last meal. Glucose of more than 200 mg/dL in a nonstressed, ambulatory subject supports the diagnosis of Diabetes Mellitus. ADA recommended reference range 9.3\S\9.3 Normal 8.2-10.2 [facility] diaz 250 DO Work Phone: [phone] 25.2\S\25.2 Normal 22.0-30.0 [facility] diaz 250 DO Work Phone: 100\S\100 Normal 95-114 [facility] diaz 250 DO Work Phone: 4.3\S\4.3 Normal 3.5-5.1 [facility] diaz 250 DO Work Phone: 134\S\134 below low threshold 136-146 [facility] jimenezy 250 DO Work Phone: 22\S\22 Normal 10-42 [facility] diaz 250 DO Work Phone: 5.87\S\5.87 above high threshold 0.45-5.33 [facility] diaz 250 DO Work Phone: Comment on above: PERFORMED BY:[address] [address] [place] [id number] MEDICAL DIRECTORHAILEY CALDERÓN M.D. Radiologyon 06-06-2021 XR Chest 2 Views Normal [facility] emily 250 DO Work Phone: Tobacco Screening.on 022 Tobacco use status [facility] b) No [facility] emily 250 DO Work Phone: Vital Signs Date Time Vital Sign Value Performing Clinician Facility 2024 08:57-0500 Body height 175.26 cm [facility] 2024 08:57-0500 Body mass index (BMI) [Ratio] 34.7 kg/m2 [facility] 2024 08:57-0500 Body weight 106.59 kg [facility] 2024 08:57-0500 Diastolic blood pressure 67 mm[Hg] [facility] 2024 08:57-0500 Heart rate 79 /min [facility] 2024 08:57-0500 Systolic blood pressure 108 mm[Hg] [facility] 01-12-2024 10:53-0400 Body height 175.3 cm Jesus Posey DO Work Phone: [facility] 01-12-2024 10:53-0400 Body mass index (BMI) [Ratio] 35.09 kg/m2 Jesus Posey DO Work Phone: [facility] 01-12-2024 10:53-0400 Body weight 107.78 kg Jesus Posey DO Work Phone: [facility] 01-12-2024 10:53-0400 Diastolic blood pressure 62 mm[Hg] Jesus Posey DO Work Phone: [facility] 01-12-2024 10:53-0400 Heart rate 73 /min Jesus Posey DO Work Phone: [facility] 01-12-2024 10:53-0400 Systolic blood pressure 108 mm[Hg] Jesus Posey DO Work Phone: [facility] 11-15-2023 08:44-0400 Body height 176.53 cm [facility] 11-15-2023 08:44-0400 Body mass index (BMI) [Ratio] 34.6 kg/m2 [facility] 11-15-2023 08:44-0400 Body temperature 97.8 [degF] [facility] 11-15-2023 08:44-0400 Body weight 107.95 kg [facility] 11-15-2023 08:44-0400 Diastolic blood pressure 64 mm[Hg] [facility] 11-15-2023 08:44-0400 Heart rate 80 /min [facility] 11-15-2023 08:44-0400 Respiratory rate 20 /min [facility] 11-15-2023 08:44-0400 Systolic blood pressure 108 mm[Hg] [facility] 10-05-2023 13:30-0400 Body height 177.8 cm Ivania Velazquez [employer]IGATION [employer]ISION [employer]GE[employer] Work Phone: [facility] 10-05-2023 13:30-0400 Body mass index (BMI) [Ratio] 34.29 kg/m2 Ivania Velazquez [employer] REPA[employer]ER[employer]INVESTIGATION DIVISION SERGEANT Work Phone: [facility] 10-05-2023 13:30-0400 Body weight 108.41 kg Ivania Velazquez [employer] REPA[employer]ER[employer]INVESTIGATION DIVISION SERGEANT Work Phone: [facility] 10-05-2023 13:30-0400 Diastolic blood pressure 69 mm[Hg] Ivania Velazquez [employer] REPA[employer]ER[employer]INVESTIGATION DIVISION SERGEANT Work Phone: [facility] 10-05-2023 13:30-0400 Heart rate 79 /min Ivania Marcus [employer] REPAIRER[employer]INVESTIGATION DIVISION SERGEANT Work Phone: [facility] 10-05-2023 13:30-0400 Systolic blood pressure 100 mm[Hg] Ivania Velazquez [employer] REPAIRER[employer]INVESTIGATION DIVISION SERGEANT Work Phone: [facility] 09-13-2023 08:31-0400 Body height 175.3 cm Ivania Velazquez [employer] REPAIRER[employer]INVESTIGATION DIVISION SERGE[employer] Work Phone: [facility] 09-13-2023 08:31-0400 Body mass index (BMI) [Ratio] 35.59 kg/m2 Ivania Velazquez [employer] REPA[employer]ER[employer]INVESTIGATION DIVISION SERGEANT Work Phone: [facility] 09-13-2023 08:31-0400 Body weight 109.32 kg Ivania Velazquez [employer] REPAIRER[employer]INVESTIGATION DIVISION SERGEANT Work Phone: [facility] 09-13-2023 08:31-0400 Diastolic blood pressure 70 mm[Hg] Ivania Velazquez [employer] REPAIRER[employer]INVESTIGATION DIVISION SERGE[employer] Work Phone: [facility] 09-13-2023 08:31-0400 Heart rate 75 /min Ivania Velazquez [employer] REPA[employer]ER[employer]INVESTIGATION DIVISION SERGEANT Work Phone: [facility] 09-13-2023 08:31-0400 Systolic blood pressure 138 mm[Hg] Ivania Velazquez [employer] REPA[employer]ER[employer]INVESTIGATION DIVISION SERGEANT Work Phone: [facility] 08-24-2023 12:45-0400 Body height 175.[address] 08-24-2023 12:45-0400 Body mass index (BMI) [Ratio] 35.59 kg/m2 [address] 08-24-2023 12:45-0400 Body weight 109.[address] 08-24-2023 12:45-0400 Diastolic blood pressure 60 mm[Hg] [address] 08-24-2023 12:45-0400 Systolic blood pressure 120 mm[Hg] [address] 08-02-2023 09:55-0400 Body height 176.53 cm [facility] 08-02-2023 09:55-0400 Body mass index (BMI) [Ratio] 35 kg/m2 [facility] 08-02-2023 09:55-0400 Body weight 109.31 kg [facility] 08-02-2023 09:55-0400 Diastolic blood pressure 66 mm[Hg] [facility] 08-02-2023 09:55-0400 Heart rate 79 /min [facility] 08-02-2023 09:55-0400 Respiratory rate 20 /min [facility] 08-02-2023 09:55-0400 Systolic blood pressure 133 mm[Hg] [facility] 07-13-2023 10:23-0400 Diastolic blood pressure 60 mm[Hg] Jesus Posey Work Phone: [facility] 07-13-2023 10:23-0400 Systolic blood pressure 90 mm[Hg] Jesus Kalpesh DO Work Phone: [facility] 07-13-2023 10:16-0400 Body height 175.3 cm Jesus Rocaernst HUGGINS Work Phone: [facility] 07-13-2023 10:16-0400 Body mass index (BMI) [Ratio] 35.59 kg/m2 Jesus Kalpesh DO Work Phone: [facility] 07-13-2023 10:16-0400 Body weight 109.32 kg Jesus Kalpesh DO Work Phone: [facility] 07-13-2023 10:16-0400 Heart rate 80 /min Jesus Kalpesh DO Work Phone: [facility] 05-21-2023 13:17-0500 Body height 175.3 cm Carmen Ha MD Work Phone: [facility] 05-21-2023 13:17-0500 Body mass index (BMI) [Ratio] 35.29 kg/m2 Carmen Ha MD Work Phone: [facility] 05-21-2023 13:17-0500 Body weight 108.41 kg Carmen Ha MD Work Phone: [facility] 05-21-2023 13:17-0500 Diastolic blood pressure 78 mm[Hg] Carmen Ha MD Work Phone: [facility] 05-21-2023 13:17-0500 Heart rate 72 /min Carmen Ha MD Work Phone: [facility] 05-21-2023 13:17-0500 Systolic blood pressure 128 mm[Hg] Carmen Ha MD Work Phone: [facility] 05-04-2023 11:53-0500 Body height 176.53 cm DO Lee Ball Work Phone: [facility] 05-04-2023 11:53-0500 Body mass index (BMI) [Ratio] 35.2 kg/m2 DO Lee Ball Work Phone: [facility] 05-04-2023 11:53-0500 Body weight 109.76 kg DO Lee Ball Work Phone: [facility] 05-04-2023 11:53-0500 Diastolic blood pressure 72 mm[Hg] DO Lee Ball Work Phone: [facility] 05-04-2023 11:53-0500 Heart rate 72 /min DO Lee Ball Work Phone: [facility] 05-04-2023 11:53-0500 Respiratory rate 20 /min DO Lee Ball Work Phone: [facility] 05-04-2023 11:53-0500 Systolic blood pressure 131 mm[Hg] DO Lee Ball Work Phone: [facility] 04-14-2023 09:30-0500 Body height 176.53 cm Lee Ball Other [facility] 04-14-2023 09:30-0500 Body mass index (BMI) [Ratio] 34.87 kg/m2 Lee Ball Other [facility] Other 04-14-2023 09:30-0500 Body weight 108.68 kg Lee Ball Other [facility] 04-14-2023 09:30-0500 Diastolic blood pressure 70 mm[Hg] Lee Ball Other [facility] 04-14-2023 09:30-0500 Respiratory rate 20 /min Lee Ball Other [facility] Other 04-14-2023 09:30-0500 Systolic blood pressure 116 mm[Hg] Lee Ball Other [facility] 2023 11:30-0500 Body height 176.53 cm Lee Ball Other [facility] Other 2023 11:30-0500 Body mass index (BMI) [Ratio] 34.23 kg/m2 Lee Ball Other [facility] Other 2023 11:30-0500 Body weight 106.69 kg Lee Ball Other [facility] Other 2023 11:30-0500 Diastolic blood pressure 53 mm[Hg] Lee Ball Other [facility] Other 2023 11:30-0500 Respiratory rate 16 /min Lee Ball Other [facility] Other 2023 11:30-0500 Systolic blood pressure 92 mm[Hg] Lee Ball Other [facility] Other 01-12-2023 16:22-0400 Body height 175.3 cm Ivania Velazquez [employer] REPA[employer]ER[employer]INVE[employer]IGATION DIVISION SERGEANT Work Phone: [facility] 01-12-2023 16:22-0400 Body mass index (BMI) [Ratio] 33.97 kg/m2 Ivania Velazquez [employer] REPAIRER[employer]INVESTIGATION DIVISION SERGEANT Work Phone: [facility] 01-12-2023 16:22-0400 Body temperature 98.01 [degF] Ivania Velazquez [employer] REPAIRER[employer]INVESTIGATION DIVISION SERGEANT Work Phone: [facility] 01-12-2023 16:22-0400 Body weight 104.33 kg Ivania Velazquez [employer] REPA[employer]ER[employer]INVESTIGATION DIVISION SERGEANT Work Phone: [facility] 01-12-2023 16:22-0400 Diastolic blood pressure 80 mm[Hg] Ivania Velazquez [employer] REPAIRER[employer]INVESTIGATION DIVISION SERGEANT Work Phone: [facility] 01-12-2023 16:22-0400 Heart rate 72 /min Ivania Velazquez [employer] REPAIRER[employer]INVESTIGATION DIVISION SERGEANT Work Phone: [facility] 01-12-2023 16:22-0400 Systolic blood pressure 120 mm[Hg] Ivania Velazquez [employer] REPAIRER[employer]INVESTIGATION DIVISION SERGEANT Work Phone: [facility] 01-05-2023 11:00-0400 Body height 176.53 cm Lee Ball Other [facility] Other 01-05-2023 11:00-0400 Body mass index (BMI) [Ratio] 33.47 kg/m2 Lee Ball Other [facility] Other 01-05-2023 11:00-0400 Body weight 104.33 kg Lee Ball Other [facility] Other 01-05-2023 11:00-0400 Diastolic blood pressure 68 mm[Hg] Lee Ball Other [facility] Other 01-05-2023 11:00-0400 Respiratory rate 20 /min Lee Ball Other [facility] Other 01-05-2023 11:00-0400 Systolic blood pressure 115 mm[Hg] Lee Ball Other [facility] Other 11-30-2022 10:35-0400 Body height 175.26 cm Lee E Ball Work Phone: [employer] DO Work Phone: 11-30-2022 10:35-0400 Body mass index (BMI) [Ratio] 33.67 kg/m2 Lee E Ball Work Phone: [facility] [employer] DO Work Phone: 11-30-2022 10:35-0400 Body surface area Derived from formula 2.18 m2 Lee E Ball Work Phone: [facility] DO Work Phone: 11-30-2022 10:35-0400 Body weight 103.42 kg Lee E Ball Work Phone: [facility] [facility] DO Work Phone: 11-30-2022 10:35-0400 Diastolic blood pressure 60 mm[Hg] Lee E Ball Work Phone: [facility] [place] DO Work Phone: 11-30-2022 10:35-0400 Heart rate 59 /min Lee E Ball Work Phone: [facility] [place] [facility] DO Work Phone: 11-30-2022 10:35-0400 Systolic blood pressure 122 mm[Hg] Lee E Ball Work Phone: [facility] DO Work Phone: 11-25-2022 11:48-0400 Body height 175.26 cm Lee E Ball Work Phone: [facility] [facility] DO Work Phone: 11-25-2022 11:48-0400 Body mass index (BMI) [Ratio] 33.97 kg/m2 Lee E Ball Work Phone: [facility] [place] [facility] DO Work Phone: 11-25-2022 11:48-0400 Body surface area Derived from formula 2.19 m2 Lee E Ball Work Phone: [facility] [place] [facility] DO Work Phone: 11-25-2022 11:48-0400 Body weight 104.33 kg Lee E Ball Work Phone: [facility] DO Work Phone: 11-25-2022 11:48-0400 Diastolic blood pressure 62 mm[Hg] Lee E Ball Work Phone: [facility] [place] [facility] DO Work Phone: 11-25-2022 11:48-0400 Heart rate 70 /min Lee E Ball Work Phone: [facility] [place] DO Work Phone: 11-25-2022 11:48-0400 Systolic blood pressure 104 mm[Hg] Lee E Ball Work Phone: [facility] DO Work Phone: 11-19-2022 16:20-0400 Diastolic blood pressure 86 mm[Hg] DO Lee Ball Work Phone: [facility] 11-19-2022 16:20-0400 Heart rate 70 /min DO Lee Ball Work Phone: [facility] 11-19-2022 16:20-0400 Respiratory rate 16 /min DO Lee Ball Work Phone: [facility] 11-19-2022 16:20-0400 SaO2% (BldA) [Mass fraction] 96 % DO Lee Ball Work Phone: [facility] 11-19-2022 16:20-0400 Systolic blood pressure 144 mm[Hg] DO Lee Ball Work Phone: [facility] 11-19-2022 11:13-0400 Body height 175.26 cm DO Lee Ball Work Phone: [facility] 11-19-2022 11:13-0400 Body temperature 97.1 [degF] DO Lee Ball Work Phone: [facility] 11-19-2022 11:13-0400 Body weight 104.2 kg DO Lee Ball Work Phone: [facility] 10-14-2022 11:00-0400 Body height 176.53 cm Delroy Mcleod Other [employer] Other 10-14-2022 11:00-0400 Body mass index (BMI) [Ratio] 33.18 kg/m2 Delroy Mcleod Other [facility] Other 10-14-2022 11:00-0400 Body weight 103.42 kg Delroy Mcleod Other [facility] Other 09-30-2022 10:00-0400 Body height 176.53 cm Delroy Mcleod Other [facility] Other 09-30-2022 10:00-0400 Body mass index (BMI) [Ratio] 33.18 kg/m2 Delroy Mcleod Other [facility] Other 09-30-2022 10:00-0400 Body weight 103.42 kg Delroy Mcleod Other [facility] Other 09-08-2022 15:00-0400 Body height 176.53 cm Lee Ball Other [facility] Other 09-08-2022 15:00-0400 Body mass index (BMI) [Ratio] 34.06 kg/m2 Lee Ball Other [facility] Other 09-08-2022 15:00-0400 Body weight 106.14 kg Lee Ball Other [facility] Other 09-08-2022 15:00-0400 Diastolic blood pressure 61 mm[Hg] Lee Ball Other [facility] Other 09-08-2022 15:00-0400 Respiratory rate 20 /min Lee Ball Other [facility] Other 09-08-2022 15:00-0400 Systolic blood pressure 98 mm[Hg] Lee Ball Other [facility] Other 07-14-2022 09:21-0400 Body height 175.26 cm Lee E Ball Work Phone: [facility] [place] DO Work Phone: 07-14-2022 09:21-0400 Body mass index (BMI) [Ratio] 35.15 kg/m2 Lee E Ball Work Phone: [facility] [place] [facility] DO Work Phone: 07-14-2022 09:21-0400 Body surface area Derived from formula 2.22 m2 Lee E Ball Work Phone: [facility] [place] [facility] DO Work Phone: 07-14-2022 09:21-0400 Body weight 107.96 kg Lee E Ball Work Phone: [facility] [place] [facility] DO Work Phone: 07-14-2022 09:21-0400 Diastolic blood pressure 64 mm[Hg] Lee E Ball Work Phone: [facility] DO Work Phone: 07-14-2022 09:21-0400 Heart rate 70 /min Lee E Ball Work Phone: [facility] [place] [facility] DO Work Phone: 07-14-2022 09:21-0400 Systolic blood pressure 122 mm[Hg] Lee E Ball Work Phone: [facility] DO Work Phone: 05-13-2022 11:33-0500 Body height 175.26 cm Lee E Ball Work Phone: [facility] [place] DO Work Phone: 05-13-2022 11:33-0500 Body mass index (BMI) [Ratio] 35.29 kg/m2 Lee E Ball Work Phone: [facility] [employer] DO Work Phone: 05-13-2022 11:33-0500 Body surface area Derived from formula 2.23 m2 Lee E Ball Work Phone: [facility] 250 DO Work Phone: 05-13-2022 11:33-0500 Body weight 108.41 kg Lee E Ball Work Phone: [facility] [employer] DO Work Phone: 05-13-2022 11:33-0500 Diastolic blood pressure 72 mm[Hg] Lee E Ball Work Phone: [facility] [employer] DO Work Phone: 05-13-2022 11:33-0500 Heart rate 70 /min Lee E Ball Work Phone: [facility] [employer] DO Work Phone: 05-13-2022 11:33-0500 Systolic blood pressure 134 mm[Hg] Lee E Ball Work Phone: [facility] [employer] DO Work Phone: 04-08-2022 11:00-0500 Body height 176.53 cm Lee Ball Other [facility] Other 04-08-2022 11:00-0500 Body mass index (BMI) [Ratio] 33.79 kg/m2 Lee Ball Other [facility] Other 04-08-2022 11:00-0500 Body weight 105.33 kg Lee Ball Other [facility] Other 04-08-2022 11:00-0500 Diastolic blood pressure 70 mm[Hg] Lee Ball Other [facility] Other 04-08-2022 11:00-0500 Respiratory rate 20 /min Lee Ball Other [facility] Other 04-08-2022 11:00-0500 Systolic blood pressure 122 mm[Hg] Lee Ball Other [facility] Other 04-16-2021 09:43-0500 Body height 175.26 cm Lee E Ball Work Phone: [facility] [employer] DO Work Phone: 04-16-2021 09:43-0500 Body mass index (BMI) [Ratio] 32.93 kg/m2 Lee E Ball Work Phone: [facility] [employer] DO Work Phone: 04-16-2021 09:43-0500 Body surface area Derived from formula 2.16 m2 Lee E Ball Work Phone: [facility] [place] [employer] DO Work Phone: 04-16-2021 09:43-0500 Body weight 101.15 kg Lee E Ball Work Phone: [facility] [employer] DO Work Phone: 04-16-2021 09:43-0500 Diastolic blood pressure 70 mm[Hg] Lee E Ball Work Phone: [facility] DO Work Phone: 04-16-2021 09:43-0500 Heart rate 71 /min Lee E Ball Work Phone: [facility] DO Work Phone: 04-16-2021 09:43-0500 Systolic blood pressure 115 mm[Hg] Lee E Ball Work Phone: [facility] DO Work Phone: Encounters Encounter Date Encounter Type Care Provider Facility Start: 2024 End: 2024 [facility] Work Phone: Start: 2024 End: 2024 Patient encounter procedure [facility] Physician [facility] Work Phone: Start: 01-26-2024 Non-patient / Non-visit [facility] Physician [facility] Work Phone: Start: 01-12-2024 End: 01-12-2024 Office outpatient visit 25 minutes Jesus Rocadon DO Work Phone: [facility] Comment on above: Atherosclerosis of c oronary artery bypass graft of tanana heart without angina pectoris; Ischemic cardiomyopathy; Congestive [...] day smoker Start: 01-12-2024 End: 01-12-2024 ambulatory [facility] Start: 01-12-2024 End: 01-12-2024 Subsequent hospital visit by physician Rad External Film EF [facility]TERNAL [facility] Comment on above: Paroxysmal atrial fi brillation (Multi); High risk medication use Start: 12-03-2023 End: 12-03-2023 ambulatory [facility] Start: 11-15-2023 End: 11-15-2023 ambulatory [facility] Work Phone: Start: 11-15-2023 End: 11-15-2023 Patient encounter procedure [facility] Physician [facility] Work Phone: Start: 10-29-2023 End: 10-29-2023 [facility] Work Phone: Start: 10-29-2023 End: 10-29-2023 Patient encounter procedure [facility] Work Phone: Start: 10-08-2023 Non-patient / Non-visit [facility] Work Phone: Start: 10-05-2023 End: 10-05-2023 Office outpatient visit 25 minutes Ivania Velazquez [employer] Work Phone: [facility] Comment on above: Biventricular ICD (i mplantable cardioverter-defibrillator) in place (Primary Dx); Ischemic cardiomyopathy; 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; Primary hypertension; Mixed hyperlipidemia; 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,adult; 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 current use of anticoagulant therapy; High risk medication use; Paroxysmal atrial fibrillation (Multi); Current every day smoker Start: 10-05-2023 End: 10-05-2023 ambulatory [facility] Start: 09-15-2023 Non-patient / Non-visit [facility] Work Phone: Start: 09-13-2023 End: 09-13-2023 Office outpatient visit 25 minutes Ivania Velazquez [employer] Work Phone: [facility] Comment on above: Ischemic cardiomyopa thy (Primary Dx); Atherosclerosis of tanana coronary artery of tanana heart without angina pectoris; Paroxysmal atrial fibrillation (Multi); High risk medication use; 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; Mixed hyperlipidemia; Primary hypertension; BMI 35.0-35.9,adult; Other specified diabetes mellitus without complication, with long-term current use of insulin (Multi); Current every day smoker; Biventricular ICD (implantable cardioverter-defibrillator) in place Start: 09-13-2023 End: 09-13-2023 ambulatory [facility] Start: 09-03-2023 Non-patient / Non-visit [facility] Work Phone: Start: 09-01-2023 End: 09-01-2023 ambulatory YANA ALVAREZ Not Available Start: 08-24-2023 End: 08-24-2023 ambulatory CARMEN HA [facility] Start: 08-24-2023 End: 08-24-2023 Subsequent hospital visit by physician [facility] Comment on above: Shortness of breath Start: 08-02-2023 End: 08-02-2023 ambulatory [facility] Work Phone: Start: 08-02-2023 End: 08-02-2023 Patient encounter procedure [facility] Work Phone: Start: 07-13-2023 End: 07-13-2023 Office outpatient visit 40 minutes Jesus Posey Work Phone: [facility] Comment on above: Biventricular ICD (i mplantable cardioverter-defibrillator) in place; Ischemic cardiomyopathy; 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; Paroxysmal atrial fibrillation (Multi); S/P CABG x 4; Status post angioplasty; Primary hypertension; Mixed hyperlipidemia; High risk medication use; Chronotropic incompetence with sinus node dysfunction; BMI 35.0-35.9,adult; Current every day smoker Start: 07-13-2023 End: 01-12-2024 ambulatory [facility] Start: 05-21-2023 End: 05-21-2023 Office outpatient visit 40 minutes Carmen Ha MD Work Phone: [facility] Comment on above: Shortness of breath (Primary Dx); Cardiac pacemaker in situ; H/O sick sinus syndrome; Biventricular ICD (implantable cardioverter-defibrillator) in place; Ischemic cardiomyopathy; Congestive heart failure, unspecified HF chronicity, unspecified heart failure type (CMS/HCC); LBBB (left bundle branch block); S/P CABG x 4; Atherosclerosis of tanana coronary artery of tanana heart without angina pectoris; Primary hypertension; Mixed hyperlipidemia; BMI 35.0-35.9,adult; Current every day smoker; Encounter for medication review and counseling; Encounter to discuss treatment options Start: 05-21-2023 End: 05-21-2023 ambulatory CARMEN HA [facility] Start: 05-21-2023 End: 05-21-2023 Subsequent hospital visit by physician [facility] Comment on above: Ischemic cardiomyopa thy; Cardiac pacemaker in situ Cardiac pacemaker in situ Start: 05-04-2023 End: 05-04-2023 ambulatory DO Lee Segovia Work Phone: [facility] Work Phone: Start: 05-04-2023 End: 05-04-2023 Patient encounter procedure DO Lee Segovia Work Phone: [facility] Work Phone: Start: 04-14-2023 End: 04-14-2023 ambulatory Lee Segovia Other [employer] Other Start: 04-14-2023 Office outpatient vi sit 15 minutes Lee Segovia [facility] Start: 04-14-2023 End: 04-14-2023 Patient encounter procedure DO Lee Segovia Work Phone: [facility]- Start: 03-31-2023 End: 03-31-2023 ambulatory Lee Segovia Other [employer] Other Start: 03-31-2023 Telephone encounter Lee Segovia SELENE G [facility] Start: 03-24-2023 End: 03-24-2023 ambulatory Lee Segovia Facility:[facility] Start: 03-24-2023 End: 03-24-2023 Patient encounter procedure DO Lee Segovia Work Phone: [facility] Work Phone: Start: 03-17-2023 End: 03-17-2023 ambulatory Lee Segoiva Other [employer] Other Start: 03-17-2023 Telephone encounter Lee Segovia [facility] Start: 03-10-2023 Telephone encounter Lee Segovia [facility] Start: 03-10-2023 End: 03-10-2023 ambulatory JESUS POSEY [facility] Other Start: 03-10-2023 Patient encounter procedure DO Lee Segovia Work Phone: [facility]- Start: 02-21-2023 End: 02-21-2023 ambulatory Lee Segovia Other [employer] Other Start: 02-21-2023 Telephone encounter Lee MORTON [facility] Start: 2023 End: 2023 ambulatory Lee Segovia Other [employer] Other Start: 2023 Office outpatient vi sit [address] [facility] Start: 2023 Telephone encounter Lee Skelton [facility] Start: 01-26-2023 End: 01-26-2023 ambulatory [facility] Start: 01-12-2023 End: 01-12-2023 Office outpatient visit 10 minutes Ivania Velazquez [employer] Work Phone: [facility] Comment on above: Biventricular ICD (i mplantable cardioverter-defibrillator) in place (Primary Dx); Ischemic cardiomyopathy; BMI 33.0-33.9,adult; Current every day smoker; Paroxysmal atrial fibrillation (CMS/HCC); Atherosclerosis of tanana coronary artery of tanana heart without angina pectoris Start: 01-07-2023 Telephone encounter Lee MORTON [facility] Start: 01-07-2023 End: 01-07-2023 ambulatory CARMEN Thomas LELAND [facility] Other Start: 01-05-2023 End: 01-05-2023 ambulatory Lee Segovia Other [employer] Other Start: 01-05-2023 Office outpatient vi sit 25 minutes Lee Segovia [facility] Start: 12-30-2022 End: 12-30-2022 ambulatory Delroy Mcleod Other [facility] Other Start: 12-30-2022 Office outpatient vi sit 15 minutes Delroy Mcleod [facility] Start: 12-07-2022 Chart Update Lee lira Work Phone: [facility] 250 DO Work Phone: Start: 11-30-2022 Office consultation new/estab patient 80 min Lee Rowell Ball Work Phone: [facility] 320 DO Work Phone: Start: 11-30-2022 ambulatory Carmen Ha Facility:[id number] Start: 11-25-2022 Office outpatient vi sit 25 minutes Lee E Ball Work Phone: [facility] 250 DO Work Phone: Start: 11-25-2022 Patient encounter procedure Lee Segovia Work Phone: [facility] 250 DO Work Phone: Start: 11-25-2022 ambulatory Ms. Ivania Velazquez Facility:[id number] Start: 11-24-2022 End: 11-24-[address] Lee Segovia Facility:[id number] Start: 11-24-2022 End: 11-24-2022 ambulatory DO Lee Ball Work Phone: [facility] Work Phone: Start: 11-24-2022 End: 11-24-2022 Patient encounter procedure DO Lee Segovia Work Phone: [facility]-Pacemaker Check Start: 11-19-2022 ambulatory Jesus Stone [id number] Start: 11-19-2022 Telephone encounter [facility] Start: 11-19-2022 End: 11-19-2022 Admission to same day surgery center DO Lee Ball Work Phone: [facility]-[place] Work Phone: Start: 11-19-2022 End: 11-19-2022 ambulatory DO Lee Ball Work Phone: [facility] Work Phone: Start: 11-13-2022 End: 11-13-2022 ambulatory Lee Segovia Facility:[facility] Start: 11-13-2022 End: 11-13-2022 Patient encounter procedure DO Lee Segovia Work Phone: [facility] Work Phone: Start: 11-04-2022 Telephone encounter Lee Segovia Work Phone: [facility] 250 DO Work Phone: Start: 11-03-2022 Chart Update Lee Styles l Work Phone: [facility] 250 DO Work Phone: Start: 10-28-2022 ambulatory JESUS Stone [id number] Start: 10-14-2022 End: 10-14-2022 ambulatory Delroy Mcleod Other [facility] Other Start: 10-14-2022 Office outpatient vi sit 10 minutes Delroy Mcleod [facility] Start: 09-30-2022 End: 09-30-2022 ambulatory Delroy Mcleod Other [facility] Other Start: 09-30-2022 Office outpatient ne w 30 minutes Delroy Mcleod [facility] Start: 09-30-2022 Telephone encounter Delroy MORTON [facility] Start: 09-17-2022 End: 09-17-2022 ambulatory Lee Segovia Other [employer] Other Start: 09-17-2022 Office outpatient vi sit [address] [facility] Start: 09-08-2022 End: 09-08-2022 ambulatory Lee Ball Other [employer] Other Start: 09-08-2022 Office outpatient vi sit [address] [facility] Start: 08-21-2022 End: 08-21-2022 ambulatory Lee Ball Facility:[facility] Start: 08-21-2022 End: 08-21-2022 Patient encounter procedure DO Lee Ball Work Phone: [facility]-Pacemaker Check Start: 08-21-2022 End: 08-21-2022 ambulatory DO Lee Juliette Work Phone: [facility] Work Phone: Start: 08-05-2022 End: 08-05-2022 ambulatory Lee Segovia Facility:[facility] Start: 08-05-2022 End: 08-05-2022 Patient encounter procedure DO Lee Segovia Work Phone: [facility]-Respiratory Therapy Work Phone: Start: 08-03-2022 End: 08-03-2022 ambulatory Lee Segovia Other [employer] Other Start: 08-03-2022 Telephone encounter [facility] Start: 07-30-2022 End: 07-30-2022 ambulatory Lee Segovia Other [facility] Other Start: 07-30-2022 Telephone encounter Lee [facility] Start: 07-20-2022 End: 08-19-2022 ambulatory SHAIKH Shi MONTERO Facility: Start: 07-14-2022 Office outpatient vi sit 40 minutes Lee Segovia Work Phone: [facility] 250 DO Work Phone: Start: 07-14-2022 ambulatory Jesus Stone y: Start: 07-09-2022 End: 07-09-2022 ambulatory Lee Segovia Other [facility] Other Start: 07-09-2022 Telephone encounter [facility] Start: 07-08-2022 Telephone encounter [facility] Start: 07-08-2022 End: 07-09-[address] LEE SEGOVIA [facility] Other Start: 06-25-2022 Rx Renewal Lee Styles l Work Phone: [facility] 250 DO Work Phone: Start: 06-22-2022 End: 07-17-2022 ambulatory SHAIKH Shi MONTERO Facility:H1 Start: 05-20-2022 End: 06-19-2022 ambulatory SHAIKH Shi NOVOAD Facility:H1 Start: 05-18-2022 End: 05-18-2022 ambulatory Lee Segovia Other [facility] Other Start: 05-18-2022 Telephone encounter Lee Segovia [facility] Start: 05-13-2022 Patient encounter procedure Lee Sorin Juliette Work Phone: [facility] 250 DO Work Phone: Start: 05-13-2022 ambulatory Ms. Ivania Velazquez Facility: Start: 05-06-2022 End: 05-06-2022 ambulatory Lee Segovia Other [employer] Other Start: 05-06-2022 Telephone encounter Lee Segovia FP [facility] Start: 05-01-2022 End: 05-01-2022 ambulatory Lee Segovia Other [employer] Other Start: 05-01-2022 Telephone encounter Lee Juliette MORTON [facility] Start: 04-22-2022 End: 05-20-2022 ambulatory SHAIKH Shi MONTERO Facility: Start: 04-21-2022 Rx Renewal Lee lira Work Phone: [facility] 250 DO Work Phone: Start: 04-08-2022 End: 04-08-2022 ambulatory Lee Juliette Other [employer] Other Start: 04-08-2022 Office outpatient vi sit 25 minutes Lee Segovia [facility] Start: 04-08-2022 Telephone encounter Lee Segovia [facility] Start: 04-03-2022 End: 04-04-[address] GINO BENEDICT Facility:H1 Start: 04-02-2022 End: 04-02-2022 ambulatory Lee Segovia Other [facility] Other Start: 04-02-2022 Telephone encounter Lee Juliette [facility] Start: 03-31-2022 End: 04-01-[address] LEE SEGOVIA [facility] Other Start: 03-31-2022 Telephone encounter Lee Juliette SELENE [facility] Start: 03-30-2022 End: 03-30-2022 ambulatory Lee Segovia Other [facility] Other Start: 03-30-2022 Telephone encounter Lee Segovia [facility] Start: 02-19-2022 End: 03-22-2022 ambulatory ZARCO H FAWWAD Facility:H1 Start: 02-04-2022 Chart Update Lee lira Work Phone: [facility] 250 DO Work Phone: Start: 02-04-2022 End: 02-04-2022 ambulatory DO Lee Segovia Work Phone: [facility] Work Phone: Start: 02-04-2022 End: 02-04-2022 Patient encounter procedure DO Lee Segovia Work Phone: [facility]-Respiratory Therapy Start: 01-20-2022 End: 02-18-2022 ambulatory ZARCO H FAWWAD Facility:H1 Start: 12-21-2021 End: 01-19-2022 ambulatory ZARCO H FAWWAD Facility:H1 Start: 12-19-2021 Patient encounter procedure Lee Rowell Juliette Work Phone: [facility] 250 DO Work Phone: Start: 11-20-2021 End: 11-20-2021 Patient encounter procedure DO Lee Segovia Work Phone: [facility]-Pacemaker Check Start: 11-20-2021 End: 12-20-2021 ambulatory ZARCO H FAWWAD Facility:H1 Start: 11-14-2021 End: 11-15-[address] LEE SEGOVIA Facility:H1 Start: 10-21-2021 End: 10-21-[address] LEE SEGOVIA Facility:H1 Start: 10-20-2021 End: 11-19-2021 ambulatory SHAIKH Shi MONTERO Facility:H1 Start: 10-14-2021 End: 10-14-[address] LEE SEGOVIA Facility:H1 Start: 10-08-2021 End: 10-09-[address] LEE SEGOVIA Facility:H1 Start: 09-23-2021 Rx Renewal Lee lira Work Phone: [facility] 250 DO Work Phone: Start: 09-09-2021 End: 09-10-2021 ambulatory YANA GORE Facility:H1 Start: 08-19-2021 Chart Update Lee lira Work Phone: [facility] 250 DO Work Phone: Start: 06-10-2021 Chart Update Lee lira Work Phone: [facility] 250 DO Work Phone: Start: 04-16-2021 Office outpatient vi sit 15 minutes Lee Segovia Work Phone: [facility] 250 DO Work Phone: Start: 02-28-2021 Rx Renewal Lee Rowell Bal l Work Phone: [facility] 250 DO Work Phone: Patient encounter status Rustygavino Segovia Work Phone: [facility] 250 DO Work Phone: Procedures Date Procedure Procedure Detail Performing Clinician Start: 01-12-2024 Ecg routine ecg w/le ast 12 lds w/i&r Jesus Posey DO Work Phone: Start: 10-06-2023 Ecg routine ecg w/le ast 12 lds w/i&r Ivania Velazquez [employer] REPA[employer]ER-INVESTIGATION DIVISION SERGEANT Work Phone: Start: 09-14-2023 Ecg routine ecg w/le ast 12 lds w/i&r Ivania Velazquez [employer] REPAIRER-INVESTIGATION DIVISION SERGEANT Work Phone: Start: 07-13-2023 Lipid panel JESUS [...] in person multi lead dfb Holli Vazquez [employer] REPAIRER-INVESTIGATION DIVISION SERGEANT Work Phone: Start: 03-24-2023 Plain chest X-ray [...] PATIENT HOLLI LOVELACE Start: 01-07-2023 TELEMETRY MONITORING AM Edgar VAZQUEZ Start: 01-07-2023 ELECTROPHYSIOLOGY PROCEDURE HOLLI VAZQUEZ [...] grafting S/P CABG x 4 Ivania Velazquez [employer] REPAIRER-INVESTIGATION DIVISION SERGEANT Work Phone: Start: 11-19-2022 [facility] Angio w/grafts DO Lee [employer] Work Phone: Start: 10-28-2022 Echocardiography Steve in Sorin [employer] Work Phone: Start: 08-05-2022 Plain chest X-ray DO Be njamin [employer] Work Phone: Start: 07-08-[address] WILSON IN [place] Comment on above: Performed By: #### B MP, TSH #### [facility] [address] [place] [address] Dr. Paola Bradshaw Start: 02-04-2022 Plain chest X-ray DO Be njamin [employer] Work Phone: Start: 10-08-[address] STEVE SEGOVIA Comment on above: Performed By: #### P SASC #### [facility] [address] [place] [address] Dr. Paola Bradshaw Start: 09-05-2017 Lipid 1996 panel - S radha or Plasma Ivania Velazquez [employer] REPAIRER-INVESTIGATION DIVISION SERGEANT Work Phone: Start: 08-14-2016 Screening for malign ant neoplasm of colon Delroy Mcleod Other Start: 08-14-2016 Screening for malign ant neoplasm of prostate Delroy Mcleod Other Start: 02-05-2014 General examination of patient Delroy Mcleod Other Appendectomy Lee Segovia Work Phone: Brain Surgery Lee Rowell Bal l Work Phone: Cardiac catheterization Benj ton [...] Segovia Work Phone: Operation on the ear Benjgavino Segovia Work Phone: Operative procedure on knee Lee Segovia Work Phone: Screening for malign ant neoplasm of prostate Delroy Mcleod Other Surgical procedure Lee Segovia Work Phone: Comment on above: Stent Indications; Surgery Excision Of Sublingual Gland; Tonsillectomy Lee Rowell Bal l Work Phone: NEGATED: Highlighted row has not occurred! Total colonoscopy Lee Segovia Work Phone: Plan of Treatment Date Care Activity Detail Author Start: 06-01-2027 DTaP/Tdap/Td Vaccines (2 - Td or Tdap) DTaP/Tdap/Td Vaccines (2 - Td or Tdap) [facility] Start: 08-26-2024 Glaucoma screening Diabetes: Retinopathy Screening [facility] Start: 08-23-2024 Echocardiography Echocardiogram [facility] Start: 07-13-2024 End: 07-13-2024 Patient encounter procedure 07/13/2024 10:50 AM EDT Office Visit [facility] [address] [place] [address] Jesus Posey DO [address] [place] [address] [facility] Start: 07-12-2024 End: 01-11-2025 Aspartate aminotransferase [Enzymatic activity/volume] in Serum or Plasma by With P-5'-P Aspartate Aminotransferase Lab Routine Paroxysmal atrial fibrillation (Multi) High risk medication use Expected: 07/12/2024 (Approximate), Expires: 01/11/2025 [facility] Service Area Work Phone: Comment on above: Expected: 07/12/2024 (Approximate), Expi res: 01/11/2025 Start: 07-12-2024 End: 01-11-2025 Basic metabolic 2000 panel - Serum or Plasma Basic Metabolic Panel Lab Routine Paroxysmal atrial fibrillation (Multi) High risk medication use Expected: 07/12/2024 (Approximate), Expires: 01/11/2025 [facility] Work Phone: Comment on above: Expected: 07/12/2024 (Approximate), Expi res: 01/11/2025 Start: 07-12-2024 End: 01-11-2025 Thyrotropin [Units/volume] in Serum or Plasma Thyroid Stimulating Hormone Lab Routine Paroxysmal atrial fibrillation (Multi) High risk medication use Expected: 07/12/2024 (Approximate), Expires: 01/11/2025 [facility] Work Phone: Comment on above: Expected: 07/12/2024 (Approximate), Expi res: 01/11/2025 Start: 06-20-2024 End: 06-20-2024 Patient encounter procedure [facility] Start: 04-13-2024 End: 01-11-2025 Complete Pulmonary Function Test (Spirometry/DLCO/Lung Volumes) Complete Pulmonary Function Test (Spirometry/DLCO/Lung Volumes) PFT Routine Paroxysmal atrial fibrillation (Multi) High risk medication use Expected: 04/13/2024 (Approximate), Expires: 01/11/2025 [facility] Work Phone: Comment on above: Expected: 04/13/2024 (Approximate), Expi res: 01/11/2025 Start: 04-13-2024 End: 01-11-2025 XR Chest 2 Views XR chest 2 views Imaging Routine Paroxysmal atrial fibrillation (Multi) High risk medication use Expected: 04/13/2024, Expires: 01/11/2025 [facility] Work Phone: Comment on above: Expected: 04/13/2024, Expires: Start: 03-27-2024 End: 07-12-2024 Complete Pulmonary Function Test Pre/Post Bronchodialator (Spirometry Pre/Post/DLCO/Lung Volumes) Complete Pulmonary Function Test Pre/Post Bronchodialator (Spirometry Pre/Post/DLCO/Lung Volumes) PFT Routine Paroxysmal atrial fibrillation (Multi) High risk medication use Expected: 03/27/2024 (Approximate), Expires: 07/12/2024 [facility] Work Phone: Comment on above: Expected: 03/27/2024 (Approximate), Expi res: 07/12/2024 Start: 01-12-2024 End: 07-12-2024 Aspartate aminotransferase [Enzymatic activity/volume] in Serum or Plasma by With P-5'-P Aspartate Aminotransferase Lab Routine Paroxysmal atrial fibrillation (Multi) High risk medication use Expected: 01/12/2024 (Approximate), Expires: 07/12/2024 [facility] Service Area Work Phone: Comment on above: Expected: 01/12/2024 (Approximate), Expi res: 07/12/2024 Start: 01-12-2024 End: 07-12-2024 Basic metabolic 2000 panel - Serum or Plasma Basic Metabolic Panel Lab Routine Paroxysmal atrial fibrillation (Multi) High risk medication use Expected: 01/12/2024 (Approximate), Expires: 07/12/2024 [facility] Work Phone: Comment on above: Expected: 01/12/2024 (Approximate), Expi res: 07/12/2024 Start: 01-12-2024 End: 07-12-2024 Thyrotropin [Units/volume] in Serum or Plasma Thyroid Stimulating Hormone Lab Routine Paroxysmal atrial fibrillation (Multi) High risk medication use Expected: 01/12/2024 (Approximate), Expires: 07/12/2024 [facility] Work Phone: Comment on above: Expected: 01/12/2024 (Approximate), Expi res: 07/12/2024 Start: 01-12-2024 End: 01-12-2024 Patient encounter procedure 01/12/2024 10:50 AM EDT Office Visit [facility] [address] [place] [address] Jesus Posey DO [address] [place] [address] [facility] Start: 01-12-2024 Subsequent hospital visit by physician 01/12/2024 Hospital Encounter [facility] [employer] [address] [place] [address] Paroxysmal atrial fibrillation (Multi); High risk medication use [facility] [employer] [facility] Comment on above: Paroxysmal atrial fibrillation (Multi); High risk medication use Start: 01-08-2024 Creatinine measurement Creatinine Level [facility] Start: 01-08-2024 Potassium measurement Potassium Level [facility] Start: 11-23-2023 End: 11-23-2023 Patient encounter procedure [facility] Start: 11-21-2023 End: 05-20-2024 Cardiac Device Check - In Clinic Cardiac Device Check - In Clinic Implantable Cardiac Device Routine Biventricular ICD (implantable cardioverter-defibrillato r) in place Expected: 11/21/2023 (Approximate), Expires: 05/20/2024 [facility] Work Phone: Comment on above: Expected: 11/21/2023 (Approximate), Expi res: 05/20/2024 Start: 11-21-2023 COVID-19 Vaccine () COVID-19 Vaccine () [facility] Start: 11-21-2023 Influenza vaccination Influenza Vaccine (#1) [facility] Start: 10-29-2023 Echocardiography Echocardiogram [facility] Start: 10-05-2023 End: 10-05-2023 Patient encounter procedure 10/05/2023 1:30 PM EDT Office Visit [address] [place] [address] Ivania Velazquez, [employer] REPAIRER-INVESTIGATION DIVISION SERGEANT [address] [facility] [address] [place] [address] [facility] Start: 09-13-2023 End: 09-12-2024 Basic metabolic 2000 panel - Serum or Plasma Basic Metabolic Panel Lab Routine Ischemic cardiomyopathy Expected: 09/13/2023 (Approximate), Expires: 09/12/2024 [facility] Service Area Work Phone: Comment on above: Expected: 09/13/2023 (Approximate), Expi res: 09/12/2024 Start: 09-13-2023 End: 09-13-2023 Patient encounter procedure 09/13/2023 8:30 AM EDT Office Visit [place] [id number] [place] [address] Ivania Velazquez, [employer] REPAIRER-INVESTIGATION DIVISION SERGEANT [address] [place] [address] [facility] Start: 08-24-2023 End: 08-24-2023 Patient encounter procedure 08/24/2023 12:00 PM EDT [facility] [address] [place] [id number] [facility] Start: 08-21-2023 End: 05-20-2025 US Heart Transthoracic Transthoracic Echo Complete Echocardiography Routine Shortness of breath Expected: 08/21/2023, Expires: 05/20/2025 [facility] Work Phone: Comment on above: Expected: 08/21/2023, Expires: Start: 07-13-2023 End: 07-13-2023 Patient encounter procedure 07/13/2023 2:10 PM EDT Office Visit [facility] [address] [place] [address] Jesus Posey DO [address] [place] [address] [facility] Start: 07-13-2023 End: 07-12-2024 Lipid 1996 panel - Serum or Plasma Lipid Panel Lab Routine 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 Mixed hyperlipidemia Expected: 07/13/2023 (Approximate), Expires: 07/12/2024 [facility] Work Phone: Comment on above: Expected: 07/13/2023 (Approximate), Expi res: 07/12/2024 Start: 05-21-2023 End: 05-20-2024 XR Chest 2 Views [facility] Service Area Work Phone: Comment on above: Expected: 05/21/2023, Expires: Once for 1 Occurrenc es starting 05/21/2023 until 05/21/2023 Start: 04-13-2023 End: 04-13-2023 Patient encounter procedure 04/13/2023 11:00 AM EST Office Visit [facility] [address] [place] [address] Carmen Ha MD [address] [facility] [address] [place], [place] [id number] [facility] Start: 11-30-2022 NPVRFRL, Provider: Carmen Ha, Status: Pen, Time: 10:20 AM NPVRFRL, Provider: Carmen Ha, Status: Pen, Time: 10:20 AM [facility] Work Phone: Start: 11-25-2022 FUV, Provider: Ivania Neal, Status: Pen, Time: 11:30 AM FUV, Provider: Ivania Neal, Status: Pen, Time: 11:30 AM -[facility] 250 DO Work Phone: Start: 11-20-2022 COVID-19 Vaccine () COVID-19 Vaccine () [facility] Start: 11-20-2022 Influenza vaccination Influenza Vaccine (#1) [facility] Start: 11-19-2022 End: 11-19-2022 [facility] Start: 11-17-2022 SURGNONUH, Provider: Jesus Posey, Status: Pen, Time: 1:00 PM SURGNONUH, Provider: Jesus Posey, Status: Pen, Time: 1:00 PM -[facility] 250 DO Work Phone: Start: 10-28-2022 ECHO, Provider: CASSY [facility] ULTRASOUND 01,[id number], Status: Pen, Time: 10:45 AM ECHO, Provider: CASSY [facility] ULTRASOUND 01,[id number], Status: Pen, Time: 10:45 AM [facility] 250 DO Work Phone: Start: 07-14-2022 FUV, Provider: Jesus Posey, Status: Pen, Time: 9:20 AM FUV, Provider: Jesus Posey, Status: Pen, Time: 9:20 AM -[facility] 250 DO Work Phone: Start: 04-15-2022 FUV, Provider: Jesus Posey, Status: Pen, Time: 10:40 AM FUV, Provider: Jesus Posey, Status: Pen, Time: 10:40 AM -[facility] 250 DO Work Phone: Start: 2022 Abdominal aortic aneurysm screening Abdominal Aortic Aneurysm (AAA) Screening [facility] Start: 04-16-2021 FUV, Provider: Jesus Posey, Status: Pen, Time: 9:15 AM FUV, Provider: Jesus Posey, Status: Pen, Time: 9:15 AM -[facility] 250 DO Work Phone: Start: 10-17-2020 COVID-19 Vaccine (3 - Pfizer series) COVID-19 Vaccine (3 - Pfizer series) [facility] Start: 09-05-2018 Lipid panel Lipid Panel [facility] Start: 12-05-2017 Hemoglobin A1c measurement Diabetes: Hemoglobin A1C [facility] Start: 2017 RSV High Risk: (Elderly (60+) or Population) (1 - Risk 60-74 years 1-dose series) RSV High Risk: (Elderly (60+) or Population) (1 - Risk 60-74 years 1-dose series) [facility] Start: 2017 RSV patients and/or patients aged 60+ years (1 - 1-dose 60+ series) RSV patients and/or patients aged 60+ years (1 - 1-dose 60+ series) [facility] Start: 2007 Screening for malignant neoplasm of lung Lung Cancer Screening [facility] Start: 2007 Zoster Vaccines (1 of 2) Zoster Vaccines (1 of 2) [facility] Start: 02-02-1976 Hepatitis A Vaccines (1 of 2 - Risk 2-dose series) Hepatitis A Vaccines (1 of 2 - Risk 2-dose series) [facility] Start: 02-02-1976 Urine screening for protein Diabetes: Urine Protein Screening [facility] Start: 1975 Hepatitis C screening Hepatitis C Screening [facility] Start: 1967 Diabetic foot examination Diabetes: Foot Exam [facility] Start: 1967 Glaucoma screening Diabetes: Retinopathy Screening [facility] Start: 1957 Annual wellness visit Medicare Initial Physical (IPPE) [facility] Start: 1957 Medicare Annual Wellness Visit Medicare Annual Wellness Visit (AWV) [facility] Start: 1957 Screening for malignant neoplasm of colon [facility] Start: 1957 Thyroid stimulating hormone measurement TSH Level [facility] Cardiac Device Check - In Clinic Cardiac Device Check - In Clinic Implantable Cardiac Device Routine Ischemic cardiomyopathy Cardiac pacemaker in situ 05/21/2023 11:51 AM EST [facility] Work Phone: End: 11-21-2023 Cardiac Device Check - Remote Cardiac Device Check - Remote Implantable Cardiac Device Routine Biventricular ICD (implantable cardioverter-defibrillato r) in place 52 Occurrences starting 05/21/2023 until 11/21/2023 [facility] Work Phone: Comment on above: 52 Occurrences starting 05/21/2023 until 11/21/2023 Comprehensive metabo lic 2000 panel - Serum or Plasma [facility] ECG 12 Lead ECG 12 Lead ECG Routine High risk medication use 09/14/2023 9:38 AM EDT [facility] Work Phone: ECG 12 Lead ECG 12 Lead ECG Routine High risk medication use 10/06/2023 8:37 AM EDT [facility] Work Phone: Microalbumin [Mass/volume] in Urine [facility] Patient Education Heart failure and atrial fibrillation Quitting smoking [facility] Work Phone: Patient referral [facility] Work Phone: End: 08-24-2023 US Heart Transthoracic [facility] Work Phone: Comment on above: Once for 1 Occurrences starting 08/24/19 24 until 08/24/2023 [facility] Immunizations Immunization Date Immunization Notes Care Provider Feliz barrett 2024 influenza, high dose seasonal, preservative-free [facility] 01-05-2023 influenza virus vaccine, unspecified formulation DO Lee Segovia Work Phone: [facility] 01-05-2023 influenza, high dose seasonal, preservative-free Lee Segovia Other [facility] Other 07-07-2022 influenza, high dose seasonal, preservative-free Lee Segovia Other [facility] Other 03-10-2022 influenza virus vaccine, unspecified formulation DO Lee Segovia Work Phone: [facility] 03-10-2022 influenza, high dose seasonal, preservative-free Lee Segovia Other [facility] Other 02-27-2022 pneumococcal polysaccharide vaccine, 23 valent Lee E Juliette Work Phone: [facility] 250 DO Work Phone: 02-20-2022 Fluad Quadrivalent 0 .5 ML Intramuscular Prefilled Syringe Lee Segovia Work Phone: [facility] 250 DO Work Phone: 02-20-2022 influenza virus vaccine, split virus (incl. purified surface antigen) Delroy Mcleod Other [facility] Other 02-20-2022 influenza virus vaccine, unspecified formulation Ivania Velazquez MICHAEL-INVESTIGATION DIVISION SERGEANT Work Phone: [facility] 12-30-2020 influenza virus vaccine, split virus (incl. purified surface antigen) Delroy Mcleod Other [facility] Other 12-30-2020 influenza virus vaccine, unspecified formulation DO Lee Segovia Work Phone: [facility] 12-29-2020 influenza, injectabl e, quadrivalent, preservative free DO Lee Segovia Work Phone: [facility] 12-29-2020 pneumococcal polysaccharide vaccine, 23 valent DO Lee Segovia Work Phone: [facility] 08-22-2020 Pfizer-BioNTHeyBubble COVID-19 Vacc 30 MCG/0.3ML Intramuscular Suspension Lee Segovia Work Phone: [facility] 08-03-2020 Pfizer-BioNTech COVID-19 Vacc 30 MCG/0.3ML Intramuscular Suspension Lee Segovia Work Phone: [facility] 01-16-2020 influenza virus vaccine, split virus (incl. purified surface antigen) Delroy Mcleod Other [facility] Other 01-16-2020 influenza virus vaccine, unspecified formulation DO Lee Segovia Work Phone: [facility] 03-22-2019 influenza virus vaccine, unspecified formulation Lee Segovia Work Phone: [facility] 250 DO Work Phone: 03-22-2019 influenza, seasonal, injectable Ivania Velazquez TUNNEL KILN REPAIRER-INVESTIGATION DIVISION SERGEANT Work Phone: [facility] Work Phone: 03-22-2018 influenza virus vaccine, unspecified formulation Lee Segovia Work Phone: [facility] 250 DO Work Phone: 03-22-2018 pneumococcal polysaccharide vaccine, 23 valent Lee Segovia Work Phone: [facility] 250 DO Work Phone: 12-20-2017 influenza virus vaccine, unspecified formulation Lee Segovia Work Phone: [facility] 250 DO Work Phone: 12-20-2017 pneumococcal conjuga te vaccine, 13 valent Lee Segovia Work Phone: [facility] 250 DO Work Phone: 05-31-2017 diphtheria, tetanus toxoids and acellular pertussis vaccine, unspecified formulation Delroy Mcleod Other [facility] 05-31-2017 tetanus and diphther ia toxoids, adsorbed, preservative free, for adult use (5 Lf of tetanus toxoid and 2 Lf of diphtheria toxoid) DO Lee Segovia Work Phone: [facility] 05-31-2017 tetanus toxoid, redu rashida diphtheria toxoid, and acellular pertussis vaccine, adsorbed Lee Segovia Work Phone: [facility] 250 DO Work Phone: 12-21-2016 influenza virus vaccine, unspecified formulation Lee Segovia Work Phone: [facility] 250 DO Work Phone: 12-20-2016 Flu Vaccine - Adult DO Madi Segovia Work Phone: [facility] 12-20-2016 influenza, seasonal, injectable DO Lee Segovia Work Phone: [facility] 12-09-2016 influenza, seasonal, injectable Lee Segovia Work Phone: [place] [address] DO Work Phone: 12-09-2016 tetanus and diphther ia toxoids, adsorbed, preservative free, for adult use (5 Lf of tetanus toxoid and 2 Lf of diphtheria toxoid) Delroy Mcleod Other [facility] 01-07-2015 influenza, seasonal, injectable, preservative free Lee Segovia Work Phone: [facility] [employer] DO Work Phone: 01-07-2015 pneumococcal conjuga te vaccine, 13 valent Lee Segovia Work Phone: [facility] [employer] DO Work Phone: 01-07-2015 tetanus and diphther ia toxoids, adsorbed, preservative free, for adult use (5 Lf of tetanus toxoid and 2 Lf of diphtheria toxoid) Delroy Mcleod Other [facility] 12-20-2014 influenza virus vaccine, unspecified formulation Lee Segovia Work Phone: [facility] [employer] DO Work Phone: 12-22-2013 influenza virus vaccine, unspecified formulation Lee Segovia Work Phone: [facility] 250 DO Work Phone: 01-23-2013 influenza, seasonal, injectable Lee Segovia Work Phone: [facility] 250 DO Work Phone: 12-02-2011 tetanus and diphther ia toxoids, adsorbed, preservative free, for adult use (5 Lf of tetanus toxoid and 2 Lf of diphtheria toxoid) Delroy Shani Other [facility] 03-22-2011 influenza virus vaccine, unspecified formulation Ivania Velazquez TUNNEL KILN REPAIRER-INVESTIGATION DIVISION SERGEANT Work Phone: [facility] Work Phone: 03-22-2010 influenza virus vaccine, unspecified formulation Ivania Velazquez TUNNEL KILN REPAIRER-INVESTIGATION DIVISION SERGEANT Work Phone: [facility] Work Phone: 03-22-2009 influenza virus vaccine, unspecified formulation Ivaniaekaterina Velazquez TUNNEL KILN REPAIRER-INVESTIGATION DIVISION SERGEANT Work Phone: [facility] Work Phone: 03-22-2008 influenza virus vaccine, unspecified formulation Ivania Velazquez TUNNEL KILN REPAIRER-INVESTIGATION DIVISION 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 2022 Self-pay [id number] 1957 Medicare [id number] 1957 Unknown [id number] 2.16.840.1.009179.3.579. 2.593 1957 Unknown [id number] 2.16.840.1.531722.3.579. 2.593 1957 Unknown [id number] 2.16.840.1.267909.3.579. 2.593 1957 Unknown [id number] 2.16.840.1.862505.3.579. 2.593 1957 Unknown [id number] 2.16.840.1.962060.3.579. 2.593 1957 Unknown [id number] 2.16.840.1.954498.3.579. 2.593 1957 Unknown [id number] 2.16.840.1.745758.3.579. 2.593 1957 Unknown [id number] 2.16.840.1.340565.3.579. 2.593 1957 Unknown [id number] 2.16.840.1.174197.3.579. 2.593 1957 Unknown [id number] 2.16.840.1.531081.3.579. 2.593 1957 Unknown [id number] 2.16.840.1.961283.3.579. 2.593 1957 Unknown [id number] 2.16.840.1.447251.3.579. 2.593 1957 Unknown [id number] 2.16.840.1.188467.3.579. 2.593 1957 Unknown [id number] 2.16.840.1.927066.3.579. 2.593 1957 Unknown [id number] 2.16.840.1.560784.3.579. 2.593 1957 Unknown [id number] 2.16.840.1.012138.3.579. 2.593 1957 Unknown [id number] 2.16.840.1.077845.3.579. 2.593 1957 Unknown [id number] 2.16.840.1.555818.3.579. 2.593 1957 Unknown [id number] 2.16.840.1.015434.3.579. 2.1068 1957 Unknown [id number] 2.16.840.1.834818.3.579. 2.356 1957 Unknown [id number] 2.16.840.1.478398.3.579. 2.356 1957 Unknown [id number] 2.16.840.1.563461.3.579. 2.356 1957 Unknown [id number] 2.16.840.1.645347.3.579. 2.356 1957 Unknown [id number] 2.16.840.1.573813.3.579. 2.356 1957 Unknown [id number] 2.16.840.1.231931.3.579. 2.356 1957 Unknown [id number] 2.16.840.1.731173.3.579. 2.356 1957 Unknown [id number] 2.16.840.1.075014.3.579. 2.1259 1957 Unknown [id number] 2.16.840.1.146385.3.579. 2.1245 1957 Unknown [id number] 2.16.840.1.376049.3.579. 2.1245 1957 Unknown [id number] 2.16.840.1.421798.3.579. 2.1245 1957 Unknown [id number] 2.16.840.1.457593.3.579. 2.1245 1957 Unknown [id number] 2.16.840.1.260883.3.579. 2.1245 1957 Unknown [id number] 2.16.840.1.987626.3.579. 2.1245 1957 Unknown [id number] 2.16.840.1.352616.3.579. 2.1243 1957 Unknown [id number] 2.16.840.1.361434.3.579. 2.1243 1957 Unknown [id number] 2.16.840.1.280628.3.579. 2.1243 1957 Unknown [id number] 2.16.840.1.137396.3.579. 2.1243 1957 Unknown [id number] 2.16.840.1.373105.3.579. 2.1243 1957 Unknown [id number] 2.16.840.1.859115.3.579. 2.1243 1957 Unknown [id number] 2.16.840.1.217708.3.579. 2.1243 1957 Unknown [id number] 2.16.840.1.572171.3.579. 2.1244 Medicare Medicare [id number] Unknown [employer] [place] [employer]IC[employer] ADVANTAGE Unknown [id number] 2.16.840.1.136402.3.579. 2.531 Unknown [id number] 2.16.840.1.629822.3.579. 2.531 Unknown [id number] 2.16.840.1.275855.3.579. 2.531 Unknown [id number] 2.16.840.1.144692.3.579. 2.531 Unknown [id number] 2.16.840.1.956493.3.579. 2.531 Unknown [id number] 2.16.840.1.826383.3.579. 2.531 Social History Date Type Detail Facility Start: 01-07-2023 End: 10-05-2023 Current smoker Current smoker -[facility] 250 DO Work Phone: Comment on above: 3-4 CUPS OF COFFEE A DAY, 2 CANS OF SODA; once weekly; 3 cigarettes per day ; almost a pack daily; Start: 06-16-2021 End: 11-15-2023 Tobacco smoking status [facility] Smoker (finding) [facility] Start: 1955 Sex Assigned At Male [facility] Start: 01-12-2023 End: 10-05-2023 Sex Assigned At [facility] Other Start: 01-07-2023 End: 07-13-2023 Tobacco smoking status [facility] Smokes tobacco daily [facility] History of tobacco use Cigarette Smoker [facility] Work Phone: Start: 01-07-2023 End: 07-13-2023 Tobacco use and exposure Smokeless tobacco non-user [facility] Work Phone: Start: 01-12-2023 End: 10-05-2023 Alcohol intake Current drinker of alcohol (finding) [facility] Work Phone: Start: 01-09-2023 Gender identity Identifies as male gender (finding) [facility] Work Phone: Start: 01-02-2023 End: 01-12-2024 Exposure to SARS-CoV-2 (event) Not sure [facility] Start: 05-21-2023 Alcohol Comment [facility] Work Phone: Start: 2024 Sex Male (finding) [facility] Medical Equipment Procedure Code Equipment Code Equipment [...] PACEMAKER ASSURITY MRI RF FDA Start: 06-17-2018 [id number], [id number] Start: 08-03-2022 End: 07-13-2023 Defibrillator, Magnet Placer-D, [place] - [id number] Start: 01-07-2023 Slitter, Univers al Ii - [id number] Start: 01-07-2023 Durata T, Active Single Coil, Df4, 65cm - [id number] Start: 01-07-2023 Catheter, Attain Command, Mdl 6250v, 45cm - [id number] Start: 01-07-2023 Pacing Lead, Irwin rtet 86cm, Model [id number] Lv, Multi Site, Ventricular - [id number] Start: 01-07-2023 Pen Needle, Diab etic (Bd Ultra-Fine Micro Pen Needle) 32 gauge x 1/4 needle Start: 11-23-2023 Pen [place] 32 g x 6 mm Start: 05-01-2023 Pen Needle, Diab etic (Bd Ultra-Fine Micro Pen Needle) 32 gauge x 1/4 needle Start: 11-23-2023 End: 11-23-2023 Clinical Notes 03-30-2022 to 01-12-2024 Jesus Posey, - 01/12/2024 10:50 AM EDTPatient InstructionsAttachments Note Date & Type Note Facility 01-12-2024 [...] and losartan. He has known ASHD, remote ND, history of multivessel CABG x4 in 2018, [...] see administration instructions. As directed by the [facility] coumadin clinic. Ok to resume at previous dose on 01/09/23, Disp: , Rfl: Assessment/Plan 1. 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 Follow Up In [...] By signing my name below, I, Katerin Bowles LPN , Scribe attest that this documentation has been prepared [...] discussion and plan. documented in this encounter [facility] Work Phone: 01-12-2024 Instructions Katerin Mcfarland LPN [...] be sent through Care Everywhere.Heart Healthy Diet (Gabonese)documented in this encounter [facility] Work Phone: 11-15-2023 Evaluation note Diagnosis Onset Date Resolution Cellulitis, face acute October 212023 8:43am Hypertension acute November 15, 2023 8:43am Type 2 diabetes mellitus with hyperglycemia acute November 15, 2023 8:43am ASHD (arteriosclerotic heart disease) chronic November 14 8:43am Atrial fibrillation acute Novem tony 2023 8:54am Elevated cholesterol acute Nov mber 2023 8:54am Hypertension acute January 8:54am IBS (irritable bowel syndrome) acute January 31, 024 8:54am Intermittent lightheadedness acute January 31, 8:54am Type 2 diabetes mellitus with diabetic peripheral angiopathy without gangre acute Novemb er 2023 8:54am Type 2 diabetes mellitus with hyperglycemia acute January 8:54am ASHD (arteriosclerotic heart disease) chronic January 31, 024 8:54am [facility] Work Phone: 1(216) 768-855307-17-2024 Evaluation + Plan note* Assessment & Plan Note - SUE [place] - 10/06/2023 8:34 AM EDTAssociated Problem(s): 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,adult Reviewed the merits of healthy lifestyle choices on overall cardiovascular health. [facility] Work Phone: 1(651) 865-605307-17-2024 Evaluation + Plan note* Assessment & Plan Note - SUE [place] - 10/06/2023 8:34 AM EDTAssociated Problem(s): 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 current use of anticoagulant therapy [id number] 7 chronically anticoagulated Coumadin DOACs cost prohibitive [facility] Work Phone: 1(251) 805-479607-17-2024 Evaluation + Plan note* Assessment & Plan Note - SUE [place] - 10/06/2023 8:34 AM EDTAssociated Problem(s): Paroxysmal atrial fibrillation (Multi) Maintaining sinus rhythm/AV paced on amiodarone Surveillance testing completed Mar 2023 CHADS VASc [address] [facility] Work Phone: [phone]) 268-893707-17-2024 Evaluation + Plan note* Assessment & Plan Note - [place]UE [place] - 10/06/2023 8:34 AM EDTAssociated Problem(s): Hyperlipidemia Today statin [facility] Work Phone: 1(213) 407-414807-17-2024 Evaluation + Plan note* Assessment & Plan Note - SUE [place] - 10/06/2023 8:34 AM EDTAssociated Problem(s): Atherosclerosis of coronary artery of tanana heart without angina pectoris 2022 cardiac cath Newly occluded pAV CX/dCX/OM2 LICENSE EXAMINER RCA and SVG-RCA RAMIREZ-LAD patent Sequential free [id number] patent Current daily activity at [address] [facility] Work Phone: 1(892) 205-798007-17-2024 Miscellaneous Notes* Assessment & Plan Note - [place] - 10/06/2023 8:34 AM EDTAssociated Problem(s): 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,adult Reviewed the merits of healthy lifestyle choices on overall cardiovascular health. 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 [id number] 7 chronically anticoagulated Coumadin DOACs cost prohibitive * Assessment & Plan Note - [place]UE [place] - 10/06/2023 8:34 AM EDT Associated Problem(s): Paroxysmal atrial fibrillation (Multi) Maintaining sinus rhythm/AV paced on amiodarone Surveillance testing completed Mar 2023 CHADS VASc 7 anticoagulated on Coumadin * Assessment & Plan Note - SUE [place] - 10/06/2023 8:34 AM EDT Associated Problem(s): Hyperlipidemia Today statin * Assessment & Plan Note - [place]UE [place] - 10/06/2023 8:34 AM EDT Associated Problem(s): Atherosclerosis of coronary artery of tanana heart without angina pectoris 2022 cardiac cath Newly occluded pAV CX/dCX/OM2 LICENSE EXAMINER RCA and SVG-RCA RAMIREZ-LAD patent Sequential free [id number] patent Current daily activity at 4 MET * Assessment & Plan Note - SUE [place] - 10/06/2023 8:33 AM EDT Associated Problem(s): Biventricular ICD (implantable cardioverter- defibrillator) in place Jan 07, 2023: Fragoso DDHFA 500Q biV ICD March 2023 device interrogation BiV paced 98% * Assessment & Plan Note - SUE [place] - 10/06/2023 8:33 AM EDT Associated Problem(s): Ischemic cardiomyopathy DICM HFrEF 30-35% May 2023 TTE FC 2B- III Stage C GDMT: Toprol Entresto: unable to tolerate d/t hypotension Cozaar: to resume today Aldactone: presents off of treatment today (Mar 2023 K+ 5.) Jardiance: insurance would not cover Has BiV ICD May 2023 BiV optimization August 2023 device interrogation BiV paced 98% * Assessment & Plan Note - [place]UE [place] - 10/05/2023 1:57 PM EDT Associated Problem(s): Current every day smoker 1 pack per day 'working on quitting' No benefit nicoderm patches Continued every day tobacco use. Have reviewed the negative cardiovascular impact of nicotine. Continues to decline pharmacological assistance. [facility] 1(311) 516-165207-17-2024 Evaluation + Plan note* Assessment & Plan Note - SUE [place] - 10/06/2023 8:33 AM EDTAssociated Problem(s): Biventricular ICD (implantable cardioverter-defibrillator) in place Jan 07, 2023: Fragoso DDHFA 500Q biV ICD March 2023 device interrogation BiV paced 98% [facility] Work Phone: [phone]) 439-652907-17-2024 Evaluation + Plan note* Assessment & Plan Note - SUE [place] - 10/06/2023 8:33 AM EDTAssociated Problem(s): Ischemic cardiomyopathy DICM HFrEF 30-35% May 2023 TTE FC 2B- III Stage C GDMT: Toprol Entresto: unable to tolerate d/t hypotension Cozaar: to resume today Aldactone: presents off of treatment today (Mar 2023 K+ 5.) Jardiance: insurance would not cover Has BiV ICD May 2023 BiV optimization August 2023 device interrogation BiV paced 98% [facility] Work Phone: 1(120) 617-225607-16-2024 Evaluation + Plan note* Assessment & Plan Note - [place]UE [place] - 10/05/2023 1:57 PM EDTAssociated Problem(s): Current every day smoker 1 pack per day 'working on quitting' No benefit nicoderm patches Continued every day tobacco use. Have reviewed the negative cardiovascular impact of nicotine. Continues to decline pharmacological assistance. [facility] Work Phone: 1([phone]) 290-985007-16-2024 History of Present illness Narrative* [place]UE [place] - 10/05/2023 1:30 PM EDT Chief Complaint I cannot tell it made a difference Reason for Visit 2-week follow-up Patient presents to the office today for outpatient follow-up for medication changes. Last evaluated in clinic by myself 2 weeks ago. At that time he had persistent dyspnea on exertion.Added low-dose Lasix and long-acting nitrates. Presents today ambulatory with steady gait. Accompanied by spouse Patient denies any hospitalizations or significant changes to interval medical history since last office follow-up. History of Present Illness Patient is a very pleasant 68-year-old gentleman who remains an extremely difficult historian. He cannot elicit any real benefit with recent medication changes. He continues to go to cardiac rehab twice a week. He reports there is no change in his dyspnea ambulating in from the parking lot. He reports some episodes of postural orthostatic hypotension. Denies orthopnea or PND. No evidence of volume overload. He also complains of this harsh nonproductive cough, lung sounds are diminished throughout and is scheduled for a chest x-ray tomorrow for amiodarone testing. If unremarkable then I will complete repeat PFTs. He does have a longstanding history of tobacco abuse but denies any history of COPD or prior pulmonary treatment. Patient reports that overall has no complaint(s) of chest pain, chest pressure/discomfort, claudication, exertional chest pressure/discomfort, lower extremity edema, and orthopnea Daily activity: Attend cardiac rehab twice a week Denies any change in exercise capacity or functional tolerance since last office visit. The importance of secondary prevention reviewed: HTN: Optimally treated HLD: Optimally treated DM: Treated, unknown hemoglobin A1c Smoker: Unfortunately, continues to smoke. BMI: Reviewed the merits of healthy lifestyle choices on overall cardiovascular health. EKG in the office today is a paced, QTc 444 on Pacerone 200 mg daily. Review of Systems Cardiovascular: Negative for chest pain, dyspnea on exertion, irregular heartbeat, leg swelling, near-syncope, orthopnea, palpitations, paroxysmal nocturnal dyspnea and syncope. Respiratory: Positive for shortness of breath. Visit Vitals BP 100/69 (BP Location: Left arm, Patient Position: Sitting) Pulse 79 Ht 1.778 m (5' 10 ) Wt 108 kg (239 lb) BMI 34.29 kg/m Smoking Status Every Day BSA 2.31 m Physical Exam Vitals and nursing note reviewed. Constitutional: Appearance: Normal appearance. Cardiovascular: Rate and Rhythm: Normal rate and regular rhythm. Heart sounds: Normal heart sounds. Pulmonary: Effort: Pulmonary effort is normal. Breath sounds: Examination of the right-lower field reveals decreased breath sounds. Examination ofthe left-lower field reveals decreased breath sounds. Decreased breath sounds present. Musculoskeletal: Cervical back: Full passive range of motion without pain. Right lower leg: No edema. Left lower leg: No edema. Skin: General: Skin is cool. Neurological: Mental Status: He is alert and oriented to person, place, and time. Psychiatric: Attention and Perception: Attention normal. Mood and Affect: Mood normal. Behavior: Behavior is cooperative. Allergies Allergen Reactions Jenny Inhibitors Other Current Outpatient Medications Medication Instructions amiodarone (PACERONE) 200 mg, oral, Daily aspirin 81 mg EC tablet 1 tablet, oral, Daily atorvastatin (LIPITOR) 80 mg, oral, Nightly famotidine (Pepcid) 20 mg tablet 1 tablet, oral, 2 times daily furosemide (LASIX) 20 mg, oral, Daily insulin lispro protamin-lispro (HumaLOG Mix 50-50 KwikPen) 100 unit/mL (50-50) injection subcutaneous, 2 times daily (morning and late afternoon), Take as directed per insulin instructions. isosorbide mononitrate ER (IMDUR) 30 mg, oral, Daily, Do not crush or chew. Levemir FlexPen 14 Units, subcutaneous, Nightly levETIRAcetam XR (Keppra XR) 750 mg tablet extended release 24 hr 24 hr tablet 1 tablet, oral, 2 times daily losartan (COZAAR) 25 mg, oral, Daily metFORMIN (Glucophage) 850 mg tablet 1 tablet, oral, 2 times daily (morning and late afternoon) metoprolol succinate XL (TOPROL-XL) 50 mg, oral, Daily mirtazapine (REMERON) 30 mg, oral, Nightly nitroglycerin (NITROSTAT) 0.4 mg, sublingual, Every 5 min PRN rOPINIRole (REQUIP) 0.5 mg, oral, Nightly warfarin (COUMADIN) 2 mg, oral, See admin instructions, As directed by the [facility] coumadin clinic. Ok to resume at previous dose on 01/09/23 Assessment: Patient remains somewhat of a difficult historian and continues to report dyspnea on exertion. Has had no benefit from addition of diuretic or long-acting nitrate. Remains on highest tolerated dose of guideline directed medical therapy. He is maintaining normal sinus rhythm and is biventricularly paced. Will be getting chest x-ray tomorrow and will review, if unremarkable then we will repeat PFTs. Otherwise, may consider element of orthostatic hypotension contributing. In the office today standing blood pressure was 102/58 Current every day smoker 1 pack per day 'working on quitting' No benefit nicoderm patches Continued every day tobacco use. Have reviewed the negative cardiovascular impact of nicotine. Continues to decline pharmacological assistance. Ischemic cardiomyopathy DICM HFrEF 30-35% May 2023 TTE FC 2B- III Stage C GDMT: Toprol Entresto: unable to tolerate d/t hypotension Cozaar: to resume today Aldactone: presents off of treatment today (Mar 2023 K+ 5.) Jardiance: insurance would not cover Has BiV ICD May 2023 BiV optimization August 2023 device interrogation BiV paced 98% Biventricular ICD (implantable cardioverter-defibrillator) in place Jan 07, 2023: Fragoso DDHFA 500Q biV ICD March 2023 device interrogation BiV paced 98% Atherosclerosis of coronary artery of tanana heart without angina pectoris 2022 cardiac cath Newly occluded pAV CX/dCX/OM2 LICENSE EXAMINER RCA and SVG-RCA RAMIREZ-LAD patent Sequential free [id number] patent Current daily activity at 4 MET Hyperlipidemia Today statin Paroxysmal atrial fibrillation (Multi) Maintaining sinus rhythm/AV paced on amiodarone Surveillance testing completed Mar 2023 CHADS VASc 7 anticoagulated on Coumadin 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 current use of anticoagulant therapy [id number] 7 chronically anticoagulated Coumadin DOACs cost prohibitive 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,adult Reviewed the merits of healthy lifestyle choices on overall cardiovascular health. Plan: Through informed decision making process incorporating patients unique circumstances, the followingtreatment plan will be initiated: 1. Prescription drug management of cardiovascular medication for efficacy, adherence to treatment, side effect assessment and polypharmacy. Current treatment clinically warranted and to continue without modifications. 2. Return for follow-up; in the interim, contact the office if new symptoms arise. Dr. Posey as scheduled You need to stop smoking. Though it is not easy, more than half of all adults smokers have quit. Weencourage you to write down all the reasons you should quit smoking and set a quit date for yourself. Ask us how we can help. You may also call 9-630-SMKM-NOW for free resources and assistance. Ivania Velazquez MSN, TUNNEL KILN REPAIRER-INVESTIGATION DIVISION SERGEANT, PMHNP-[facility] Please excuse any errors in grammar or translation related to this dictation. Voice recognition software was utilized to prepare this document. documented in this [facility] Work Phone: [phone]) 304-421407-16-2024 Instructions* Patient Instructions* SUE [place] - 10/05/2023 1:30 PM EDT Please bring all medicines, vitamins, [...] warranted and to continue without modifications. 2. Return for follow-up; in the interim, contact the office if new symptoms arise. Dr. Posey as scheduled You need to stop smoking. Though it is not easy, more than half of all adults smokers have quit. Weencourage you to write down all the reasons you should quit smoking and set a quit date for yourself. Ask us how we can help. You may also call 9-042-BJWXNOW for free resources and assistance. [facility] Work Phone: [phone]) 472-959006-25-2024 Evaluation + Plan note* Assessment & Plan Note - SUE [place] - 09/14/2023 9:34 AM EDTAssociated Problem(s): BMI 35.0-35.9,adult Reviewed the merits of healthy lifestyle choices on overall cardiovascular health. 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 * Assessment & Plan Note - SUE [place] - 09/14/2023 9:34 AM EDT Associated Problem(s): Diabetes mellitus (Multi) On ARB/statin Reports most recent hemoglobin A1c 9.6 * Assessment & Plan Note - SUE [place] - 09/14/2023 9:34 AM EDT Associated Problem(s): 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 current use of anticoagulant therapy [id number] 7 chronically anticoagulated Coumadin DOACs cost prohibitive * Assessment & Plan Note - SUE [place] - 09/14/2023 9:33 AM EDT Associated Problem(s): Paroxysmal atrial fibrillation (Multi) Maintaining sinus rhythm/AV paced on amiodarone Surveillance testing completed Mar 2023 CHADS VASc 7 anticoagulated on Coumadin * Assessment & Plan Note - SUE [place] - 09/14/2023 9:32 AM EDT Associated Problem(s): Hypertension Optimal in office * Assessment & Plan Note - SUE [place] - 09/14/2023 9:32 AM EDT Associated Problem(s): Hyperlipidemia High intensity statin Reports had labs through his PCP earlier this year, will need to obtain * Assessment & Plan Note - SUE [place] - 09/14/2023 9:32 AM EDT Associated Problem(s): Atherosclerosis of coronary artery of tanana heart without angina pectoris 2022 cardiac cath Newly occluded pAV CX/dCX/OM2 LICENSE EXAMINER RCA and SVG-RCA RAMIREZ-LAD patent Sequential free [id number] patent Current daily activity at 4 METS Has noted some increasing dyspnea on exertion Will add long-acting nitrates * Assessment & Plan Note - SUE [place] - 09/14/2023 9:31 AM EDT Associated Problem(s): Biventricular ICD (implantable cardioverter- defibrillator) in place Jan 07, 2023: Fragoso DDHFA 500Q biV ICD March 2023 device interrogation BiV paced 98% * Assessment & Plan Note - SUE [place] - 09/14/2023 9:31 AM EDT Associated Problem(s): Ischemic cardiomyopathy DICM HFrEF 30-35% May 2023 TTE FC 2B- III Stage C GDMT: Toprol Entresto: unable to tolerate d/t hypotension Cozaar: to resume today Aldactone: presents off of treatment today (Mar 2023 K+ 5.) Jardiance: insurance would not cover Has BiV ICD May 2023 BiV optimization August 2023 device interrogation BiV paced 98% Presents today with complaints of worsening dyspnea on exertion, nocturnal cough. Will add Lasix. * Assessment & Plan Note - SUE [place] - 09/14/2023 9:28 AM EDT Associated Problem(s): High risk medication use Amiodarone EKG in office maintaining sinus rhythm/AV paced, QTc 462 on amiodarone 200 mg daily. Surveillance testing completed March 2023 * Assessment & Plan Note - SUE [place] - 09/13/2023 11:54 AM EDT Associated Problem(s): Current every day smoker 1 pack per day 'working on quitting' No benefit nicoderm patches Continued every day tobacco use. Have reviewed the negative cardiovascular impact of nicotine. Continues to decline pharmacological assistance. [facility] Work Phone: [phone]) 545-490206-25-2024 Evaluation + Plan note* Assessment & Plan Note - SUE [place] - 09/14/2023 9:33 AM EDTAssociated Problem(s): Paroxysmal atrial fibrillation (Multi) Maintaining sinus rhythm/AV paced on amiodarone Surveillance testing completed Mar 2023 CHADS VASc 7 anticoagulated on Coumadin [facility] Work Phone: [phone] Evaluation + Plan note* Assessment & Plan Note - SUE [place] - 09/14/2023 9:32 AM EDTAssociated Problem(s): Hypertension Optimal in office [facility] Work Phone: [phone] Evaluation + Plan note* Assessment & Plan Note - SUE [place] - 09/14/2023 9:32 AM EDTAssociated Problem(s): Hyperlipidemia High intensity statin Reports had labs through his PCP earlier this year, will need to obtain [facility] Work Phone: [phone] Evaluation + Plan note* Assessment & Plan Note - SUE [place] - 09/14/2023 9:32 AM EDTAssociated Problem(s): Atherosclerosis of coronary artery of tan[place] heart without angina pectoris 2022 cardiac cath Newly occluded pAV CX/dCX/OM2 LICENSE EXAMINER RCA and SVG-RCA RAMIREZ-LAD patent Sequential free [id number] patent Current daily activity at 4 METS Has noted some increasing dyspnea on exertion Will add long-acting nitrates [facility] Work Phone: [phone] 318-588806-25-2024 Evaluation + Plan note* Assessment & Plan Note - SUE [place] - 09/14/2023 9:31 AM EDTAssociated Problem(s): Biventricular ICD (implantable cardioverter-defibrillator) in place Jan 07, 2023: Fragoso DDHFA 500Q biV ICD March 2023 device interrogation BiV paced 98% [facility] Work Phone: [phone] Evaluation + Plan note* Assessment & Plan Note - SUE [place] - 09/14/2023 9:31 AM EDTAssociated Problem(s): Ischemic cardiomyopathy DICM HFrEF 30-35% May 2023 TTE FC 2B- III Stage C GDMT: Toprol Entresto: unable to tolerate d/t hypotension Cozaar: to resume today Aldactone: presents off of treatment today (Mar 2023 K+ 5.) Jardiance: insurance would not cover Has BiV ICD May 2023 BiV optimization August 2023 device interrogation BiV paced 98% Presents today with complaints of worsening dyspnea on exertion, nocturnal cough. Will add Lasix. [facility] Work Phone: [phone] Evaluation + Plan note* Assessment & Plan Note - SUE [place] - 09/14/2023 9:28 AM EDTAssociated Problem(s): High risk medication use Amiodarone EKG in office maintaining sinus rhythm/AV paced, QTc 462 on amiodarone 200 mg daily. Surveillance testing completed March [address]23 [facility] Work Phone: [phone]) 576-557006-24-2024 Evaluation + Plan note* Assessment & Plan Note - SUE [place] - 09/13/2023 11:54 AM EDTAssociated Problem(s): Current every day smoker 1 pack per day 'working on quitting' No benefit nicoderm patches Continued every day tobacco use. Have reviewed the negative cardiovascular impact of nicotine. Continues to decline pharmacological assistance. [facility] Work Phone: [phone] History of Present illness Narrative* VENUS WashingtonINVESTIGATION DIVISION SERGEANT - 09/13/2023 8:30 AM EDT Chief Complaint My thinks of a little short of breath Reason for Visit Routine 3-month follow-up Patient presents to the office today for outpatient follow-up for coronary artery disease, secondary prevention, ischemic cardiomyopathy, atrial fibrillation. Last evaluated in clinic by Dr. Posey June 2022. Presents today ambulatory with steady gait. Accompanied by patient Patient denies any hospitalizations or significant changes to interval medical history since last office follow-up. He reports following routinely with PCP, had lab work done recently and will need to obtain. History of Present Illness Patient is extremely pleasant 68-year-old gentleman who presents today for routine follow-up. He reports that his thinks he is more short of breath but he feels like there has not been any significant change. He does report dyspnea if he does not do too much but seem to ambulated in from theparking lot without complaints. He denies any orthopnea or PND but does complain of nocturnal cough. Presents today office spironolactone, March 2023 potassium was 5.4. He denies any nitroglycerin use, no exertional chest pain. Does have dyspnea on exertion. Will add some long-acting nitrates. Also due to nocturnal cough we will add short course of diuretic. Repeat lab work and try to optimize guideline directed medical therapy. Patient reports that overall has no complaint(s) of chest pain, chest pressure/discomfort, exertional chest pressure/discomfort, irregular heart beat, and lower extremity edema or has complaint(s) ofdyspnea. Daily activity: Continues to go to cardiac rehab. Denies any change in exercise capacity or functional tolerance since last office visit. The importance of secondary prevention reviewed: HTN: Optimal in office HLD: Treated DM: Recent adjustment due to elevated hemoglobin A1c Smoker: Unfortunately has resumed smoking, not ready to quit BMI: Reviewed the merits of healthy lifestyle choices on overall cardiovascular health. Review of Systems Cardiovascular: Negative for chest pain, dyspnea on exertion, irregular heartbeat, leg swelling, near-syncope, orthopnea, palpitations, paroxysmal nocturnal dyspnea and syncope. Respiratory: Positive for shortness of breath. Visit Vitals BP 138/70 (BP Location: Left arm, Patient Position: Sitting) Pulse 75 Ht 1.753 m (5' 9 ) Wt 109 kg (241 lb) BMI 35.59 kg/m Smoking Status Every Day BSA 2.3 m Physical Exam Vitals and nursing note reviewed. Constitutional: Appearance: Normal appearance. Cardiovascular: Rate and Rhythm: Normal rate and regular rhythm. Heart sounds: Normal heart sounds. Pulmonary: Effort: Pulmonary effort is normal. Breath sounds: Examination of the left-lower field reveals rales. Rales present. Musculoskeletal: Cervical back: Full passive range of motion without pain. Right lower leg: No edema. Left lower leg: No edema. Skin: General: Skin is cool. Neurological: Mental Status: He is alert and oriented to person, place, and time. Psychiatric: Attention and Perception: Attention normal. Mood and Affect: Mood normal. Behavior: Behavior is cooperative. Allergies Allergen Reactions Jenny Inhibitors Other Current Outpatient Medications Medication Instructions amiodarone (PACERONE) 200 mg, oral, Daily aspirin 81 mg EC tablet 1 tablet, oral, Daily atorvastatin (LIPITOR) 80 mg, oral, Nightly famotidine (Pepcid) 20 mg tablet 1 tablet, oral, 2 times daily furosemide (LASIX) 20 mg, oral, Daily insulin lispro protamin-lispro (HumaLOG Mix 50-50 KwikPen) 100 unit/mL (50-50) injection subcutaneous, 2 times daily (morning and late afternoon), Take as directed per insulin instructions. isosorbide mononitrate ER (IMDUR) 30 mg, oral, Daily, Do not crush or chew. Levemir FlexPen 14 Units, subcutaneous, Nightly levETIRAcetam XR (Keppra XR) 750 mg tablet extended release 24 hr 24 hr tablet 1 tablet, oral, 2 times daily losartan (COZAAR) 25 mg, oral, Daily metFORMIN (Glucophage) 850 mg tablet 1 tablet, oral, 2 times daily (morning and late afternoon) metoprolol succinate XL (TOPROL-XL) 50 mg, oral, Daily mirtazapine (REMERON) 30 mg, oral, Nightly nitroglycerin (NITROSTAT) 0.4 mg, sublingual, Every 5 min PRN rOPINIRole (REQUIP) 0.5 mg, oral, Nightly warfarin (COUMADIN) 2 mg, oral, See admin instructions, As directed by the [facility] coumadin clinic. Ok to resume at previous dose on 01/09/23 Assessment: Current every day smoker 1 pack per day 'working on quitting' No benefit nicoderm patches Continued every day tobacco use. Have reviewed the negative cardiovascular impact of nicotine. Continues to decline pharmacological assistance. High risk medication use Amiodarone EKG in office maintaining sinus rhythm/AV paced, QTc 462 on amiodarone 200 mg daily. Surveillance testing completed March 2023 Ischemic cardiomyopathy DICM HFrEF 30-35% May 2023 TTE FC 2B- III Stage C GDMT: Toprol Entresto: unable to tolerate d/t hypotension Cozaar: to resume today Aldactone: presents off of treatment today (Mar 2023 K+ 5.) Jardiance: insurance would not cover Has BiV ICD May 2023 BiV optimization August 2023 device interrogation BiV paced 98% Presents today with complaints of worsening dyspnea on exertion, nocturnal cough. Will add Lasix. Biventricular ICD (implantable cardioverter-defibrillator) in place Jan 07, 2023: [employer] DDHFA 500Q biV ICD March 2023 device interrogation BiV paced 98% Atherosclerosis of coronary artery of tan[place] heart without angina pectoris 2022 cardiac cath Newly occluded pAV CX/dCX/OM2 LICENSE EXAMINER RCA and SVG-RCA RAMIREZ-LAD patent Sequential free [id number] patent Current daily activity at 4 METS Has noted some increasing dyspnea on exertion Will add long-acting nitrates Hyperlipidemia High intensity statin Reports had labs through his PCP earlier this year, will need to obtain Hypertension Optimal in office Paroxysmal atrial fibrillation (Multi) Maintaining sinus rhythm/AV paced on amiodarone Surveillance testing completed Mar 2023 CHADS VASc 7 anticoagulated on Coumadin 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 current use of anticoagulant therapy [id number] 7 chronically anticoagulated Coumadin DOACs cost prohibitive Diabetes mellitus (Multi) On ARB/statin Reports most recent hemoglobin A1c 9.6 BMI 35.0-35.9,adult Reviewed the merits of healthy lifestyle choices on overall cardiovascular health. Plan: Through informed decision making process incorporating patients unique circumstances, the followingtreatment plan will be initiated: 1. Prescription drug management of cardiovascular medication for efficacy, adherence to treatment, side effect assessment and polypharmacy. Current treatment clinically warranted and to continue withfollowing modifications: - Begin lasix 20mg daily - Begin Imdur 30mg daily 2. Labs (chem6) 3. Return for follow-up; in the interim, contact the office if new symptoms arise. INTERNAL AFFAIRS INVESTIGATOR 2 weeks You need to stop smoking. Though it is not easy, more than half of all adults smokers have quit. Weencourage you to write down all the reasons you should quit smoking and set a quit date for yourself. Ask us how we can help. You may also call 9-403-PFDX-NOW for free resources and assistance. Ivania Velazquez MSN, TUNNEL KILN REPAIRER-INVESTIGATION DIVISION SERGEANT, PMHNP-[facility] Please excuse any errors in grammar or translation related to this dictation. Voice recognition software was utilized to prepare this document. [facility] Work Phone: [phone]) [phone] Instructions* Patient Instructions* SUE [place] - 09/13/2023 8:30 AM EDT Please bring all medicines, vitamins, [...] warranted and to continue withfollowing modifications: - Begin lasix 20mg daily - Begin Imdur 30mg daily 2. Labs (chem6) 3. Return for follow-up; in the interim, contact the office if new symptoms arise. INTERNAL AFFAIRS INVESTIGATOR 2 weeks You need to stop smoking. Though it is not easy, more than half of all adults smokers have quit. Weencourage you to write down all the reasons you should quit smoking and set a quit date for yourself. Ask us how we can help. You may also call 2-053-WZPB-NOW for free resources and assistance. [facility] Work Phone: [phone]) 561-514704-23-2024 History of Present illness Narrative* Jesus Posey, DO - 07/13/2023 10:10 AM EDT Subjective Lesley Quintero is a 68 y.o. male Chief Complaint Follow-up 68-year-old gentleman returns for 6-month follow-up he is doing well, improved from a respiratory/pulmonary standpoint, unfortunately continues smoking approximately a pack of cigarettes daily and wehave continued to mitochondrial disorders counselor him extensively on tobacco cessation and offered pharmacologic alternatives. He denies angina, hospitalization, nitrate usage or cardiovascular events or pulmonary events/pneumonia or RSV infections. He has known ASHD, remote ND, history of multivessel CABG x4 in 2018, [...] 1 tablet (50 mg) by mouth once daily.,Disp: 90 tablet, Rfl: 3 mirtazapine (Remeron) 30 [...] see administration instructions. As directed by the [facility] coumadin clinic. Ok to resume at previous dose on 01/09/23, Disp: , Rfl: Assessment/Plan 1. Biventricular ICD (implantable cardioverter-defibrillator) in place Follow Up In Cardiology 2. Ischemic cardiomyopathy Follow Up In Cardiology 3. 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 4. Paroxysmal atrial [...] the direction and in the presence of Niki Posey DO. Provider Attestation - Scribe documentation All medical record entries made by the Scribe were at my direction and personally dictated by me. Ihave reviewed the chart and agree that the record accurately reflects my personal performance of the history, physical exam, discussion and plan. [facility] Work Phone: 1([phone]) 481-540604-23-2024 Instructions* Patient Instructions* Katerin Mcfarland LPN - 07/13/2023 10:10 AM [...] Provided instructions on exercise. documented in this [facility] Work Phone: [phone]) 241-562903-01-2024 History of Present illness Narrative* Carmen Ha MD - 05/21/2023 12:00 PM EST Chief Complaint: Device Check History Of Present Illness: Kenton Quintero is a 68 y.o. male presenting with follow-up. He is accompanied by his . When he walked from parking lot into device clinic, he was breathing very heavily. After adjustmentof sensor, his breathing improved. He was able [...] See admin instructions, As directed by the [facility] coumadin clinic. Ok to resume at previous [...] HFA 500 Q biventricular defibrillator. Estimated longevity deviceover 5 years. 75% atrial pacing. 98% BiV [...] block) S/P CABG x 4 Atherosclerosis of tanana coronary artery of tanana heart without angina pectoris Primary hypertension Mixed [...] optimization of device, referral to structural heart clinicwhich he declines, future walk test, shared decision making, risk, benefits, and imponderables. Allquestions answered in detail. 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 (ICD-10 - Z79.4) [facility] Other 01-10-2024 Evaluation note* Encounter Date Diagnosis Assessment Notes Treatment Notes Treatment Clinical Notes Mar, Type 2 diabetes mellitus with hyperglycemia (ICD-10 - E11.65) [facility] Other 12-27-2023 Evaluation note* Encounter Date Diagnosis Assessment Notes Treatment Notes Treatment Clinical Notes Feb, Type 2 diabetes mellitus with hyperglycemia (ICD-10 - E11.65) 70-130 - none 131-180 - 2: increase to 4u 181-240 - 4: increase to 6u 241-300 - 6: increase to 8u 301-350 - 8: increase to 10u Levemir 14u bid [facility] Other 12-03-2023 Evaluation note* Encounter Date Diagnosis Assessment Notes Treatment Notes Treatment Clinical Notes Feb, Type 2 diabetes mellitus with hyperglycemia (ICD-10 - E11.65) [facility] Other 11-13-2023 Evaluation note* Encounter Date Diagnosis [...] respiratory infections, vascular disease and cancers. 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 Work Phone: [phone] Evaluation + Plan note* Assessment & Plan Note - SUE [place] - 01/13/2023 8:56 AM EDTAssociated Problem(s): Atherosclerosis of coronary artery of tanana heart without angina pectoris 2022 cardiac cath Newly occluded pAV CX/dCX/OM2 LICENSE EXAMINER RCA and SVG-RCA RAMIREZ-LAD patent Sequential free [id number] patent [facility] Work Phone: [phone] Miscellaneous Notes* Assessment & Plan Note - SUE [place] - 01/13/2023 8:56 AM EDTAssociated Problem(s): Paroxysmal atrial fibrillation (CMS/HCC) Maintaining sinus rhythm on amiodarone Surveillance testing completed July 2022 CHADS VASc 7 anticoagulated on Coumadin * Assessment & Plan Note - SUE [place] - 01/13/2023 8:56 AM EDT Associated Problem(s): Atherosclerosis of coronary artery of tanana heart without angina pectoris 2022 cardiac cath Newly occluded pAV CX/dCX/OM2 LICENSE EXAMINER RCA and SVG-RCA RAMIREZ-LAD patent Sequential free [id number] patent * Assessment & Plan Note - [...] DDHFA 500Q biV ICD documented [facility] Work Phone: [phone] Evaluation + Plan note* Assessment & Plan Note - SUE [place] - 01/13/2023 8:55 AM EDTAssociated Problem(s): BMI 33.0-33.9,adult Reviewed the merits of healthy lifestyle choices on overall cardiovascular health. [facility] Work Phone: [phone] Evaluation + Plan note* Assessment & Plan Note - SUE [place] - 01/13/2023 8:54 AM EDTAssociated Problem(s): Current every day smoker Continued every day tobacco use. Have reviewed the negative cardiovascular impact of nicotine. Continues to decline pharmacological assistance. [facility] Work Phone: [phone] Evaluation + Plan note* Assessment & Plan Note - SUE [place] - 01/13/2023 8:54 AM EDTAssociated Problem(s): Ischemic cardiomyopathy ICM HFrEF 30-35% Oct 2022 cath FC II Stage C GDMT: Toprol Entresto: unable to tolerate d/t hypotension Cozaar: to resume today Aldactone Jardiance: insurance would not cover [facility] Work Phone: [phone] Evaluation + Plan note* Assessment & Plan Note - SUE [place] - 01/13/2023 8:52 AM EDTAssociated Problem(s): Biventricular ICD (implantable cardioverter-defibrillator) in place Jan 07, 2023: Fragoso DDHFA 500Q biV ICD [facility] [facility] Work Phone: 1(231) 939-758910-24-2023 History of Present illness Narrative* SUE [place] - 01/12/2023 4:00 PM EDT Chief Complaint 'I could not take Entresto Reason for Visit Wound check: Jan 07, 2023 upgrade to Fragoso biV ICD at [facility] Patient presents to the office today for [...] tolerance since last office visit with primary certified alcohol and drug counselor. There are no symptoms consistent with unstable [...] See admin instructions, As directed by the [facility] coumadin clinic. Ok to resume at previous [...] cardiovascular health. Atherosclerosis of coronary artery of tanana heart without angina pectoris 2022 cardiac cath Newly occluded pAV CX/dCX/OM2 LICENSE EXAMINER RCA and SVG-RCA RAMIREZ-LAD patent Sequential free [id number] patent Paroxysmal atrial fibrillation (CMS/HCC) Maintaining sinus [...] Dr. Posey 6 months Ivania Velazquez MSN, TUNNEL KILN REPAIRER-INVESTIGATION DIVISION SERGEANT, PMHNP-[facility] Please excuse any errors in grammar or translation related to this dictation. Voice recognition software was utilized to prepare this document. documented in this [facility] Work Phone: 1(931) 136-273010-24-2023 Instructions* Patient Instructions* SUE [place] - 01/12/2023 [...] Dr. Posey 6 months [facility]: 1(440) 930-491110-19-2023 Evaluation note* Encounter Date Diagnosis Assessment Notes Treatment Notes Treatment Clinical Notes Dec, Type 2 diabetes mellitus with hyperglycemia (ICD-10 - E11.65) [facility] Other 10-17-2023 Evaluation note* Encounter Date Diagnosis [...] respiratory infections, vascular disease and cancers. 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 Physical exam findings have also been discussed. [...] which can eliminate the problem. Patient given AAOS information handout [facility] Other 08-31-2023 Discharge summary Author Franck Posey [facility] November 19, 2022 2:51pm Note Date/Time November 19, 2022 2: 48pm [facility] [address] [place] [address] Discharge Summary Signed Patient: Lesley Quintero MR#: [id number] : 1955 Acct:[id number] Age/Sex: 67 / M Adm Date: 3 Loc: Room: Attending Dr: Franck Posey DO Copies to: Lee Segovia,DO Franck Posey, DO~ Providers Date of Discharge: 11/19/22 Discharging [...] routine lifestyle. Patient has previous history of ND, PCI's of the circumflex, ongoing tobacco use, [...] Low-Cholesterol Additional Instructions: DISCHARGE INSTRUCTIONS FOR CARDIAC PHARMACY INFORMATICIST PHONE NUMBER OF YOUR PHYSICIAN: [phone] PROCEDURE: Heart Cath The following instructions have [...] cold, numb, blue or white, call the certified alcohol and drug counselor immediately. 4. ACTIVITY: You are advised to [...] bottle, follow the instructions on the bottle. [facility] is not responsible for incorrect prescription information [...] ) then follow the Coumadin clinic at [place] instructions to adjust dosing based on the [...] signed by Franck Posey DO> 11/19/22 1451 [facility] Work Phone: 1(369) 289-167008-31-2023 Hospital Discharge instructions Additional Instructions DISCHARGE INSTRUCTIONS FOR CARDIAC PHARMACY INFORMATICIST PHONE NUMBER OF YOUR PHYSICIAN: [phone] PROCEDURE: Heart Cath The following instructions have [...] cold, numb, blue or white, call the certified alcohol and drug counselor immediately. 4. ACTIVITY: You are advised to [...] bottle, follow the instructions on the bottle. [facility] is not responsible for incorrect prescription information provided by the patient during their visit. Do not stop your medications without consulting your health care provider. Please take the list with you to your next doctor's appointment.[facility] Work Phone: 1(312) 281-534507-26-2023 Evaluation note* Encounter Date Diagnosis Assessment Notes [...] pinky finger as well as weakness of patient monitor. Physical exam findings have also been discussed. [...] as documented in the electronic medical record. [facility] Other 07-12-2023 Evaluation note* Encounter Date Diagnosis [...] pinky finger as well as weakness of patient monitor. Physical exam findings have also been discussed. [...] as documented in the electronic medical record. 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) Aug, Trigger ring finger of right hand (ICD-10 - M65.341) Refer to Orthopedics [facility] Other 05-15-2023 Evaluation note* Encounter Date Diagnosis Assessment Notes Treatment Notes Treatment Clinical Notes July, Type 2 diabetes mellitus with hyperglycemia (ICD-10 - E11.65) [facility] Other 05-11-2023 Evaluation note* Encounter Date Diagnosis Assessment Notes Treatment Notes Treatment Clinical Notes July, Type 2 diabetes mellitus with hyperglycemia (ICD-10 - E11.65) July, 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 (current) use of insulin (ICD-10 - Z79.4) [facility] Other 04-01-2023 Chief complaint Narrative - Reported* [...] pharmacy would decline Jardiance - will contact. [facility] Michaels DO Work Phone: 1([phone]) 529-569401-18-2023 Evaluation note* Encounter Date Diagnosis Assessment Notes [...] are maintaining regular scheduled appts with their certified alcohol and drug counselor. Mar, Type 2 diabetes mellitus with hyperglycemia, [...] have to d/c medications. May discuss w/ [employer]. Mar, 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 (current) use of insulin (ICD-10 - Z79.4) [facility] Other 01-18-2023 Evaluation note* Encounter Date Diagnosis Assessment Notes Treatment Notes Treatment Clinical Notes Mar, ASHD (arteriosclerotic heart disease) (ICD-10 - I25.10) [facility] Other 01-10-2023 Evaluation note* Encounter Date Diagnosis Assessment Notes Treatment Notes Treatment Clinical Notes Mar, High risk medication use (ICD-10 - Z79.899) [facility] Other 01-09-2023 Evaluation note* Encounter Date Diagnosis Assessment Notes Treatment Notes Treatment Clinical Notes Mar, High risk medication use (ICD-10 - Z79.899) [facility] Other [place] complaint Narrative - Reported* Procedure f/u: 'still short of breath' * LESLEY QUINTERO is being seen for cardiomyopathy. [facility] [address] DO Work Phone: Chief complaint Narrative - Reported* Procedure f/u: 'still short of breath' * LESLEY QUINTERO is being seen for cardiomyopathy. [facility] Work Phone: Chihw complaint Narrative - ReportedMICADILIA QUINTERO is being seen for a consultation for. [facility] [address] DO Work Phone: Evaluation noteNo assessment information available [facility] Work Phone: Evaluation noteNo InformationN[facility] Other Evaluation note* Diagnosis Biventricular ICD (implantable cardioverter-defibrillator) in place- Primary Ischemic cardiomyopathy Other specified forms of chronic ischemic heart disease BMI 33.0-33.9,adult Current every day smoker Paroxysmal atrial fibrillation (CMS/HCC) Atrial fibrillation Atherosclerosis of tanana coronary artery of tanana heart without angina pectoris documented in [facility] Work Phone: Evaluation note* Diagnosis Onset Date Resolution Status Diabetes acute Elevated cholesterol acute HTN (hypertension) 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 ASHD (arteriosclerotic heart disease) [facility] Work Phone: Evaluation note* Diagnosis Shortness [...] 4 Postsurgical aortocoronary bypass status Atherosclerosis of tanana coronary artery of tanana heart without angina pectoris Primary hypertension Unspecified essential hypertension Mixed hyperlipidemia BMI 35.0-35.9,adult Current every day smoker Encounter for medication review and counseling Encounter to discuss treatment options documented in this encounter [facility] Work Phone: Evaluation note* Diagnosis Ischemic cardiomyopathy Other specified forms of chronic ischemic heart disease Cardiac pacemaker in situ documented in this encounter [facility] Work Phone: Evaluation note* Diagnosis Cardiac pacemaker in situ documented in this encounter [facility] Work Phone: Evaluation note* Diagnosis Cardiac pacemaker in situ documented in this encounter [facility] Work Phone: Evaluation note* Diagnosis Biventricular ICD (implantable cardioverter-defibrillator) in place Ischemic cardiomyopathy Other specified forms of chronic ischemic heart disease 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 Paroxysmal atrial fibrillation [...] risk medication use documented in this encounter [facility] Work Phone: Evaluation note* Diagnosis Onset Date Resolution Status Elevated cholesterol acute HTN (hypertension) acute ASHD (arteriosclerotic heart disease) chronic Elevated cholesterol acute HTN (hypertension) acute Type 2 diabetes mellitus with hyperglycemia acute ASHD (arteriosclerotic heart disease) chronic Screening PSA (prostate specific antigen) noneactive [facility] Work Phone: Evaluation note* Diagnosis Shortness of breath Paroxysmal atrial fibrillation (Multi) Atrial fibrillation High risk medication use documented in this encounter [facility] Work Phone: Evaluation note* Diagnosis Onset Date Resolution Status Elevated cholesterol acute HTN (hypertension) acute Type 2 diabetes mellitus with hyperglycemia acute ASHD (arteriosclerotic heart disease) chronic Screening PSA (prostate specific antigen) noneactive Atrial fibrillation acute Elevated cholesterol acute Hypertension acute [id number] acute Type 2 diabetes mellitus with hyperglycemia acute ASHD (arteriosclerotic heart disease) chronic [facility] Work Phone: Evaluation note* Diagnosis Onset Date Resolution Status Atrial fibrillation acute Elevated cholesterol acute Hypertension acute IBS (irritable bowel syndrome) acute [id number] acute Type 2 diabetes mellitus with hyperglycemia acute ASHD (arteriosclerotic heart disease) chronic Atrial fibrillation acute Hypertension acute Type 2 diabetes mellitus with hyperglycemia acute ASHD (arteriosclerotic heart disease) chronic [facility] Work Phone: Evaluation note* Diagnosis Biventricular ICD (implantable cardioverter-defibrillator) in place- Primary Ischemic cardiomyopathy Other specified forms of chronic ischemic heart disease BMI 33.0-33.9,adult Current every day smoker Paroxysmal atrial fibrillation (Multi) Atrial fibrillation Atherosclerosis of tanana coronary artery of tanana heart without angina pectoris Ischemic cardiomyopathy- Primary Other specified forms of chronic ischemic heart disease Atherosclerosis of tanana coronary artery of tanana heart without angina pectoris Paroxysmal atrial fibrillation [...] 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 Primary hypertension Unspecified essential hypertension Mixed hyperlipidemia 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,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 High risk medication use Paroxysmal atrial fibrillation (Multi) Atrial fibrillation Current every day smoker 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 Ischemic cardiomyopathy Other [...] every day smoker documented in this encounter [facility] Work Phone: Evaluation note* Diagnosis Biventricular ICD (implantable cardioverter-defibrillator) in place- Primary Ischemic cardiomyopathy Other specified forms of chronic ischemic heart disease BMI 33.0-33.9,adult Current every day smoker Paroxysmal atrial fibrillation (Multi) Atrial fibrillation Atherosclerosis of tanana coronary artery of tanana heart without angina pectoris Ischemic cardiomyopathy- Primary Other specified forms of chronic ischemic heart disease Atherosclerosis of tanana coronary artery of tanana heart without angina pectoris Paroxysmal atrial fibrillation [...] 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 Primary hypertension Unspecified essential hypertension Mixed hyperlipidemia 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,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 High risk medication use Paroxysmal atrial fibrillation (Multi) Atrial fibrillation Current every day smoker Paroxysmal atrial fibrillation (Multi) Atrial fibrillation High risk medication use documented in this encounter [facility] Work Phone: Evaluation note* Diagnosis Ischemic cardiomyopathy- Primary Other specified forms of chronic ischemic heart disease Atherosclerosis of tanana coronary artery of tanana heart without angina pectoris Paroxysmal atrial fibrillation (Multi) Atrial fibrillation High risk medication use 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 current use of anticoagulant therapy Mixed hyperlipidemia Primary hypertension Unspecified essential hypertension BMI 35.0-35.9,adult Other specified diabetes mellitus without complication, with long-term current use of insulin (Multi) Current every day smoker Biventricular ICD (implantable cardioverter-defibrillator) in place Paroxysmal atrial fibrillation (Multi) Atrial fibrillation High risk medication use documented in this encounter [facility] Work Phone: Evaluation note* Diagnosis Biventricular ICD (implantable cardioverter-defibrillator) in place- Primary Ischemic cardiomyopathy Other specified forms of chronic ischemic heart disease BMI 33.0-33.9,adult Current every day smoker Paroxysmal atrial fibrillation (Multi) Atrial fibrillation Atherosclerosis of tanana coronary artery of tanana heart without angina pectoris Ischemic cardiomyopathy- Primary Other specified forms of chronic ischemic heart disease Atherosclerosis of tanana coronary artery of tanana heart without angina pectoris Paroxysmal atrial fibrillation (Multi) Atrial fibrillation High risk medication use 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 current use of anticoagulant therapy Mixed hyperlipidemia Primary hypertension Unspecified essential hypertension BMI 35.0-35.9,adult Other specified diabetes mellitus without complication, with long-term current use of insulin (Multi) Current every day smoker Biventricular ICD (implantable cardioverter-defibrillator) in place Biventricular ICD (implantable cardioverter-defibrillator) in place- Primary Ischemic cardiomyopathy Other specified forms of chronic ischemic heart disease 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 Primary hypertension Unspecified essential hypertension Mixed hyperlipidemia 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,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 High risk medication use Paroxysmal atrial fibrillation (Multi) Atrial fibrillation Current every day smoker Paroxysmal atrial fibrillation (Multi) Atrial fibrillation High risk medication use documented in this encounter [facility] Work Phone: History general Narrative - [...] LEFT HE ART Hospitalization History see above [facility] Other History general Narrative - Reported* Type [...] LEFT HE ART Hospitalization History see above [facility] Other History general Narrative - Reported* Type [...] LEFT HE ART Hospitalization History see above [facility] Other History general Narrative - Reported* Type [...] w/o intervention 10/2022 Hospitalization History see above [facility] Other [facility] general Narrative - Reported* Type Description Date [...] CARDAC CATHETERIZATION, LEFT HE ART Surgical History C w/o intervention 10/2022 Hospitalization History see above [facility] Other History general Narrative - Reported* Type [...] w/o intervention 10/2022 Hospitalization History see above [facility] Other History general Narrative - Reported* Type [...] Surgical History PTCA/stent RCA 2009 Surgical History [facility] 2010 Surgical History PCI/stent LCx 2013 Hospitalization History see above [facility] Other History of Present illness Narrative* The [...] medication regimen. He denies medication side effects. [facility] Work Phone: History of Present illness Narrative* [...] medication regimen. He denies medication side effects. [employer] Work Phone: History of Present illness Narrative* [...] medication regimen. He denies medication side effects. [facility] Work Phone: History of Present illness Narrative* [...] Outside records: * OV with Ivania Calabrese Velazquez Nov 2022 * Cath Oct 2022. On medical management. Occluded LCx. * Echo LVEF 30-35%. * ECG 2022 Appropriate pacing. RAD. Paced QRS 170 ms. LBBB. * Imp / Plan * Ischemic CM. NYHA III C heart failure. LBBB with QRS 170 ms. Chronotropic incompetence. Sinus node dysfunction. s/p dual chamber pacemaker. Treatment options discussed. [employer] decision tool. For upgrade to biventricular ICD. [...] are indications for biventricular device, pacemaker removal, [employer] decision tool, informed consent, Lovenox bridge, possibility [...] above. Patient and family appreciative of care. -[facility] [address] DO Work Phone: Reason for referral (narrative)* Reason Referral for trigger finger Diagnosis 1 Trigger ring finger of right hand (M65.341) Referral Organization [facility] Referring Provider First Name Lee Referring Provider Last Name Juliette Referring Provider Specialty Internal Me dicine Referred Organization [facility] Referred Provider Acacia Sierra [place]erred [place], [place],[address] Referred Provider Specialty Orthopedic S urgery Referral Priority Routine General Notes Patient w/ trigger f marco, ring finger of right hand. This interferes w/ ADL and golf and he is requesting further treatment. [facility] Other Reason for referral (narrative)* Consultation (Routine) - Authorized Specialty Diagnoses / Procedures Referred By Chica chau Referred To Contact Cardiology Diagnoses Biventricular ICD (implantable cardioverter-defibrillator) in place Ischemic cardiomyopathy Procedures Follow Up In Cardiology Ivania Velazquez APRN-INVESTIGATION DIVISION SERGEANT [address] [facility] [address], [address] [place] [address] Jesus Posey DO [address] [place] [address] Referral ID Status Reason Start Date Expiration Date V isits Requested Visits Authorized [id number] Authorized 01/12/2023 01/12/2024 1 1 [facility] Work Phone: Reason for visit Narrative* Imaging (Routine) - Pending Review Specialty Diagnoses / Procedures Referred By Chica chau Referred To Contact Radiology Diagnoses Paroxysmal atrial fibrillation (Multi) High risk medication use Procedures XR chest 2 views Jesus Posey DO [address] [facility] [address] [place] [address] Phone: tel: fax: Referral ID Status Reason Start Date Expiration Date Visits Requested Visits Authorized [id number] Pending Review Perform Procedure 07/13/2023 07/12/2024 1 1 [facility] Work Phone: Chief Complaint * LESLEY [...] in 1 year Amiodarone Order sent to [facility] for testing due in January* [...] usage. * He has known ASHD, remote ND, history of multivessel CABG x4 in 2018, [...] usage. * He has known ASHD, remote ND, history of multivessel CABG x4 in 2018, [...] for at least 5 minutes. 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 ASHD (arteriosclerotic heart [...] specific antigen) Atrial fibrillation Elevated cholesterol Hypertension [id number] Type 2 diabetes mellitus with hyperglycemia ASHD (arteriosclerotic heart disease) Chief Complaint bowel issues facial swelling Reason for Visit Atrial fibrillation Elevated cholesterol Hypertension IBS (irritable bowel syndrome) [id number] Type 2 diabetes mellitus with hyperglycemia ASHD (arteriosclerotic heart disease) Atrial fibrillation Hypertension Type 2 diabetes mellitus with hyperglycemia ASHD (arteriosclerotic heart disease) Chief Complaint Admit Date facial swelling November 15, 2023 8: 43am CC Adult Risk Stratification January 1:25pm 3 month f/u 2024 8:54am Reason for Visit Admit Date Cellulitis, face November 15, 2023 8: 43am Hypertension November 15, 2023 8: 43am Type 2 diabetes mellitus with hyperglyce farida November 15, 2023 8:43am ASHD (arteriosclerotic heart disease) Au kylee 2023 8:43am Atrial fibrillation 2024 8:54am Elevated cholesterol 2024 8:54am Hypertension 2024 8:54am IBS (irritable bowel syndrome) 2024 8:54am Intermittent lightheadedness January [id number] 8:54am Type 2 diabetes mellitus wit h diabetic peripheral angiopathy without gangre 2024 8:54am Type 2 diabetes mellitus with hyperglyce farida 2024 8:54am ASHD (arteriosclerotic heart disease) No vem2023 8:54am Advance Directives Advance Directive Response Recorded Date/ Time Advance [...] By Contac t Referred To Contact Diagnoses High risk medication use Procedures ECG 12 Lead Ivania Velazquez TUNNEL KILN REPAIRER-INVESTIGATION DIVISION SERGEANT [address] [facility] [address], [address] [address] Referral ID Status Reason Start Date Expiration Date V isits Requested Visits Authorized [id number] Authorized 09/14/2023 09/13/2024 1 1 Specialty Diagnoses / Procedures Referred By Contac t Referred To Contact Cardiology Diagnoses Ischemic cardiomyopathy Procedures Follow Up In Cardiology Ivania Velazquez, TUNNEL KILN REPAIRER-INVESTIGATION DIVISION SERGEANT [address] [facility] [address], [address] [place] [id number] Referral ID Status Reason Start Date Expiration Date V isits Requested Visits Authorized [id number] Authorized 09/13/2023 09/12/2024 1 1 Specialty Diagnoses / Procedures Referred By Contac t Referred To Contact Diagnoses Paroxysmal atrial fibrillation (Multi) High risk medication use Procedures Complete Pulmonary Function Test Pre/Post Bronchodialator (Spirometry Pre/Post/DLCO/Lung Volumes) Jesus Posey, [address] [place] [address] Referral ID Status Reason Start Date Expiration Date V isits Requested Visits Authorized [id number] Pending Review 07/13/2023 07/12/2024 1 1 Specialty Diagnoses / Procedures Referred By Contac t Referred To Contact Radiology Diagnoses Paroxysmal atrial fibrillation (Multi) High risk medication use Procedures XR chest 2 views Jesus Posey, DO [address] [place] [address] Referral ID Status Reason Start Date Expiration Date Visits Requested Visits Authorized [id number] Pending Review Perform Procedure 07/13/2023 07/12/2024 1 1 Specialty Diagnoses / Procedures Referred By Contac t Referred To Contact Cardiology Diagnoses 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 Procedures Follow Up In Cardiology KalpeshJesus, [address] [place] [address] Kalpesh, Jesus Hernandez, DO [address], [address] [place] [id number] Referral ID Status Reason Start Date Expiration Date V isits Requested Visits Authorized [id number] Authorized 07/13/2023 07/12/2024 1 1 Specialty Diagnoses / Procedures Referred By Contac t Referred To Contact Diagnoses Paroxysmal atrial fibrillation (Multi) Procedures ECG 12 Lead KalpeshJesus, DO [address] [place] [address] Referral ID Status Reason Start Date Expiration Date V isits Requested Visits Authorized [id number] Authorized 07/13/2023 07/12/2024 1 1 Specialty Diagnoses / Procedures Referred By Contac t Referred To Contact Cardiology Diagnoses Ischemic cardiomyopathy Cardiac pacemaker in situ Procedures Cardiac Device Check - In Clinic Holli Vazquez, TUNNEL KILN REPAIRER-INVESTIGATION DIVISION SERGEANT [address] [facility], [address] [address] Referral ID Status Reason Start Date Expiration Date Visits Requested Visits Authorized [id number] Pending Review Perform Procedure 3 01/07/2024 1 1 Specialty Diagnoses / Procedures Referred By Contac t Referred To Contact Cardiology Diagnoses Shortness of breath Procedures Transthoracic Echo Complete CT ECHO TTHRC R-T 2D W/WOM-MODE COMPL SPEC&COLR D Carmen Ha MD [address] [facility], [address] [address] Referral ID Status Reason Start Date Expiration Date Visits Requested Visits Authorized [id number] Pending Review Perform Procedure 05/21/2023 05/20/2024 1 1 Specialty Diagnoses / Procedures Referred By Contac t Referred To Contact Cardiology Diagnoses Biventricular ICD (implantable cardioverter-defibrillator) in place Procedures Cardiac Device Check - In Clinic Carmen Ha MD [address] [facility], [address] [address] Referral ID Status Reason Start Date Expiration Date Visits Requested Visits Authorized [id number] Pending Review Perform Procedure 05/21/2023 05/20/2024 52 52 Specialty Diagnoses / Procedures Referred By Contac t Referred To Contact Cardiology Diagnoses Biventricular ICD (implantable cardioverter-defibrillator) in place Procedures Cardiac Device Check - Remote Carmen Ha MD [address] [facility], [address] [address] Referral ID Status Reason Start Date Expiration Date Visits Requested Visits Authorized [id number] Pending Review Perform Procedure 05/21/2023 05/20/2024 52 52 Specialty Diagnoses / Procedures Referred By Contac t Referred To Contact Diagnoses LBBB (left bundle branch block) Procedures ECG 12 lead (Clinic Performed) Carmen Ha MD [address] [facility], [address] [address] Referral ID Status Reason Start Date Expiration Date V isits Requested Visits Authorized [id number] Authorized 05/21/2023 05/20/2024 1 1 Specialty Diagnoses / Procedures Referred By Chica t Referred To Contact Radiology Diagnoses Cardiac pacemaker in situ Procedures XR chest 2 views Carmen Ha MD [address] [facility] Medical Office Bldg, [address] [place] [address] Referral ID Status Reason Start Date Expiration Date Visits Requested Visits Authorized [id number] Authorized Perform Procedure 05/21/2023 05/20/2024 1 1 Additional Source Comments Care Teams (unrecognized sec tion and content) Team Status: Active Member Role Status Amina Segovia DO Primary Care Provider Active Team Status: Inactive Member Role Status Amina Segovia DO Primary Care Provide r, Attending Provider Active Start: November 15, 2023 End: November 15, 2023 Team Status: Active Member Role Status Amina Segovia DO Primary Care Provide r, Attending Provider Active Start: January 26, 2024 Team Status: Inactive Member Role Status Amina Segovia DO Primary Care Provide r, Attending Provider Active Start: 2024 End: 2024 Team Status: Active Member Role Status Amina Segovia DO Primary Care Provide r, Attending Provider Active Start: September 03, 2023 Team Status: Active Member Role Status Amina Segovia DO Primary Care Provider Active Start: September 15, 2023 Ivania Velazquez APRN Attending Provider Active S tart: September 15, 2023 Team Status: Active Member Role Status Amina Segovia DO Primary Care Provider Active Start: October 08, 2023 Franck Posey DO Attending Provider Active S tart: October 08, 2023 Team Status: Inactive Member Role Status Amina Segovia DO Primary Care Provide r, Attending Provider Active Start: October 29, 2023 End: October 29, 2023 Team Status: Inactive Member Role Status Amina Segovia DO Primary Care Provide r, Attending Provider Active Start: May 04, 2023 End: May 04, 2023 Team Status: Inactive Member Role Status Amina Segovia DO Primary Care Provide r, Attending Provider Active Start: August 02, 2023 End: August 02, 2023 Team Status: Active Member Role Status Dates Provider Conversion Attending Provider Active St art: March 10, 2023 Team Status: Inactive Member Role Status Dates Lee Segovia DO Primary Care Provider Active Start: March 24, 2023 End: March 24, 2023 W Be Posey , Attending Provider Active S tart: March 24, 2023 End: March 24, 2023 Team Status: Inactive Member Role Status Dates Lee Segovia , Attending Provider Active Sta rt: April 14, 2023 End: April 14, 2023 Team Status: Inactive Member Role Status Dates Lee Segovia , Primary Care Provider Active Lesley Cooper , Attending Provider Active Team Status: Inactive Member Role Status Dates Lee Segovia , Primary Care Provider Active W Be Posey , DO Attending Provider Active Housekeeping/Laundry Relationship Specialty Start Date End Date Lee Segovia DO [address] [place] [id number] PCP - General 08/30/17 Lee Segovia DO [address] [place] [id number] PCP - MMO Medicare Advantage PCP 07/20/22 Housekeeping/Laundry Relationship Specialty Start Date End Date Ivania Velazquez APRN-CNP [address] [place] [address] 2, [address] [place] [address] PCP - MMO Medicare Advantage PCP 12/20/22 Lee Segovia DO [address] [place] [address] PCP - General Internal Medicine 02/24/23 Carmen Ha MD [address] [facility] Medical Office [facility], [address] [place] [address] Core Sh[employer] Sides Cardiology 05/21/23 Housekeeping/Laundry Relationship Specialty Start Date End Date Ivania Velazquez APRN-CNP [address] [facility] 2, [address] [place] [address] PCP - MMO Medicare Advantage PCP 12/20/22 Lee Segovia DO [address] [place] [address] [place] [address] PCP - General Internal Medicine 02/24/23 Carmen Ha MD [address] [facility] Bldg, [address] [place], [place] [id number] [employer] S[employer] Cardiology 05/21/23 Housekeeping/Laundry Relationship Specialty Start Date End Date Ivania Velazquez TUNNEL KILN REPAIRER-INVESTIGATION DIVISION SERGEANT [address] [facility] 2, [address] [place] [address] PCP - MMO Medicare Advantage PCP 12/20/22 Lee Segovia DO [address] [place] [address] [place] [address] PCP - General Internal Medicine 02/24/23 Carmen Ha MD [address] [facility], [address] [place] [address] [employer] S[employer] Cardiology 05/21/23 Housekeeping/Laundry Relationship Specialty Start Date End Date Ivania Velazquez TUNNEL KILN REPAIRER-INVESTIGATION DIVISION SERGEANT [address] [facility] 2, [address] [place] [address] PCP - MMO Medicare Advantage PCP 12/20/22 Lee Segovia DO [address] [facility] [place] [address] [place] [address] PCP - General Internal Medicine 02/24/23 Carmen Ha MD [address] [facility] Office Bldg, [address] [place] [address] Core [employer] Sides Cardiology 05/21/23 Housekeeping/Laundry Relationship Specialty Start Date End Date Ivania Velazquez APRN-INVESTIGATION DIVISION SERGEANT [address] [facility] 2, [address] [place] [address] PCP - MMO Medicare Advantage PCP 12/20/22 Lee Segovia DO [address] [place] [address] [place] [address] PCP - General Internal Medicine 02/24/23 Carmen Ha MD [address] [facility], [address] [place] [address] Core Shaper Sides Cardiology 05/21/23 Housekeeping/Laundry Relationship Specialty Start Date End Date Ivania Velazquez APRN-INVESTIGATION DIVISION SERGEANT [address] [facility] 2, [address] [place] [address] PCP - MMO Medicare Advantage PCP 12/20/22 Lee Segovia DO [address] [facility] 2, [address] [place] [address] PCP - General Internal Medicine 02/24/23 Carmen Ha MD [address] [facility] Office dg, [address] [place] [address] Core Shaper Sides Cardiology 05/21/23 Housekeeping/Laundry Relationship Specialty Start Date End Date Ivania Velazquez APRN-INVESTIGATION DIVISION SERGEANT [address] [facility] 2, [address] [place] [address] PCP - MMO Medicare Advantage PCP 12/20/22 Lee Segovia DO [address] [place] [address] PCP - General Internal Medicine 10/05/23 Carmen Ha MD [address] [facility], [address] [place] [address] Core Shaper Sides Cardiology 05/21/23 Housekeeping/Laundry Relationship Specialty Start Date End Date Ivania Velazquez APRN-INVESTIGATION DIVISION SERGEANT [address] [facility] 2, [address] [place] [address] PCP - MMO Medicare Advantage PCP 12/20/22 Lee Segovia DO [address] [place] [address] PCP - General Internal Medicine 10/05/23 Carmen Ha MD [address] [facility], [address] [place] [address] Core Sh[employer] Sides Cardiology 05/21/23 Housekeeping/Laundry Relationship Specialty Start Date End Date Ivania Velazquez APRN-INVESTIGATION DIVISION SERGEANT [address] [facility] 2, [address] [place] [address] PCP - MMO Medicare Advantage PCP 12/20/22 Lee Segovia DO [address] [facility] 2, [address] [place] [address] PCP - General Internal Medicine 02/24/23 Carmen Ha MD [address] [facility], [address] [place] [address] Core Sh[employer] Sides Cardiology 05/21/23 Housekeeping/Laundry Relationship Specialty Start Date End Date Marcus Ivaniaekaterina Donahue APRN-INVESTIGATION DIVISION SERGEANT [address] [facility] 2, [address] [place] [address] PCP - MMO Medicare Advantage PCP 12/20/22 Lee Segovia DO [address] [place] [address] PCP - General Internal Medicine 10/05/23 Carmen Ha MD [address] [facility], [facility] [address] [place], [place] [phone] Core Shaper Sides Cardiology 05/21/23 Goals (unrecognized section and content) [...] Check Specialty Diagnoses / Procedures Referred By Chica t Referred To Contact Diagnoses LBBB (left bundle branch block) Procedures ECG 12 lead (Clinic Performed) Carmen Ha MD [address] [facility], [facility] [address] [place] [address] Referral ID Status Reason Start Date Expiration Date V isits Requested Visits Authorized [id number] Authorized 05/21/2023 05/20/2024 1 1 Specialty Diagnoses / Procedures Referred By Contac t Referred To Contact Cardiology Diagnoses Ischemic cardiomyopathy Cardiac pacemaker in situ Procedures Cardiac Device Check - In Clinic George Holli Okeefe, TUNNEL KILN REPAIRER-INVESTIGATION DIVISION SERGEANT [address] [facility], [address] [place] [address] Referral ID Status Reason Start Date Expiration Date Visits Requested Visits Authorized [id number] Pending Review Perform Procedure 3 01/07/2024 1 1 Specialty Diagnoses / Procedures Referred By Contac t Referred To Contact Radiology Diagnoses Cardiac pacemaker in situ Procedures XR chest 2 views Carmen Ha MD [address] [facility], [address] [address] Referral ID Status Reason Start Date Expiration Date Visits Requested Visits Authorized [id number] Authorized Perform Procedure 05/21/2023 05/20/2024 1 1 Reason Comments Follow-up 6 months Specialty Diagnoses / Procedures Referred By Contac t Referred To Contact Cardiology Diagnoses Biventricular ICD (implantable cardioverter-defibrillator) in place Ischemic cardiomyopathy Procedures Follow Up In Cardiology Ivania Velazquez, TUNNEL KILN REPAIRER-INVESTIGATION DIVISION SERGEANT [address] [facility] 2, [address] [place] [address] Jesus Posey, DO [address] [facility] 2, [address] [place] [address] Referral ID Status Reason Start Date Expiration Date V isits Requested Visits Authorized [id number] Authorized 01/12/2023 01/12/2024 1 1 Specialty Diagnoses / Procedures Referred By Contac t Referred To Contact Cardiology Diagnoses Shortness of breath Procedures Transthoracic Echo Complete CT ECHO TTHRC R-T 2D W/WOM-MODE COMPL SPEC&COLR D Carmen Ha MD [address] [facility], [address] [address] Referral ID Status Reason Start Date Expiration Date Visits Requested Visits Authorized [id number] Authorized Perform Procedure 05/21/2023 05/20/2024 1 1 Reason Comments Follow-up 6m Specialty Diagnoses / Procedures Referred By Contac t Referred To Contact Cardiology Diagnoses 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 Procedures Follow Up In Cardiology Jesus Posey, DO [address], [address] [place], [place] [id number] Phone: tel: fax: Jesus Posey, DO [address], [address] [place], [place] [id number] Phone: tel: fax: Referral ID Status Reason Start Date Expiration Date V isits Requested Visits Authorized [id number] Authorized 07/13/2023 07/12/2024 1 1 Reason Comments Follow-up 6m Specialty Diagnoses / Procedures Referred By Contac t Referred To Contact Cardiology Diagnoses Atherosclerosis of tanana coronary artery of tanana heart without angina pectoris Procedures Follow Up In Cardiology Jesus Posey, DO [address], [address] [place], [place] [id number] Ivania Velazquez, TUNNEL KILN REPAIRER-INVESTIGATION DIVISION SERGEANT [address] [facility] 2, [place] [id number] Referral ID Status Reason Start Date Expiration Date V isits Requested Visits Authorized [id number] Authorized 03/10/2023 03/09/2024 1 1 Reason Comments Follow-up 2wk Specialty Diagnoses / Procedures Referred By Contac t Referred To Contact Cardiology Diagnoses Ischemic cardiomyopathy Procedures Follow Up In Cardiology Ivania Velazquez, TUNNEL KILN REPAIRER-INVESTIGATION DIVISION SERGEANT [address], [place] [id number] Referral ID Status Reason Start Date Expiration Date V isits Requested Visits Authorized [id number] Authorized 09/13/2023 09/12/2024 1 1 (unrecognized sect ion and content) No Status Records FoundNo Status Records FoundNo Status Records FoundNo Status Records FoundNo Status Records FoundNo Status Records FoundNo Status Records FoundNo Status Records FoundNo Status Records Found INFORMATION SOURCE (unrecogn ized section and content) DATE CREATED AUTHOR 08/29/2022 [facility] DATE CREATED AUTHOR AUTHOR'S ORGANIZ ATION 11/02/2022 [facility] DATE CREATED AUTHOR AUTHOR'S ORGANIZ ATION 12/01/2022 [employer] DATE CREATED AUTHOR AUTHOR'S ORGANIZ ATION 01/09/2023 [facility] DATE CREATED AUTHOR AUTHOR'S ORGANIZ ATION 03/27/2023 [facility] DATE CREATED AUTHOR AUTHOR'S ORGANIZ ATION 09/03/2023 [facility]IC DATE CREATED AUTHOR AUTHOR'S ORGANIZ ATION 12/05/2023 [facility] DATE CREATED AUTHOR AUTHOR'S ORGANIZ ATION 01/13/2024 [facility] DATE CREATED AUTHOR AUTHOR'S ORGANIZ ATION 01/13/2024 [facility] FOR RECORDS PERTAINING TO PATIENTS WHO [...] BE BASED ON THE PRIMARY CLINICAL RECORDS. [facility]. provides no warranty or guarantee of the accuracy or completeness of information in this document.
--- NOTE | 2024-03-07 11:32 | CT_ITS ---
The [address] [address] Patient Name: LESLEY QUINTERO MRN: [id number] date: 1955 Sex: M Assigned Patient Location: LAB Current Patient Location: LAB Accession/Order Number: [id number] Exam Date: 03/07/2024 11:51 Report Date: 03/07/2024 12:41 At the request of: MALIHA KO Procedure: CT angio head EXAM: CT head/brain wo con, CT angio neck, CT angio head HISTORY: Syncopal episodes, Dizziness, Occlusion Basilar Artery, Stenosis Cerebral Artery COMPARISON: None. TECHNIQUE: Axial noncontrast CT imaging of the head was performed. Subsequent postcontrast CTA imaging of the head and neck was performed with coronal and sagittal reformats. Maximum intensity projection and 3-D reformats were performed on a separate workstation. NASCET criteria was utilized. This CT exam was performed using one or more of the following dose reduction techniques: Automated exposure control, adjustment of the MA and/or kV according to patient size, or use of iterative reconstruction technique. FINDINGS: Calvarium/skull base: Prior right craniotomy. No evidence of acute fracture or destructive lesion. Partial opacification of the bilateral mastoid air cells. Thickening of the right tympanic membrane is noted. Paranasal sinuses: No air fluid levels. Brain: No acute intracranial hemorrhage. No acute large vascular territory infarct. Remote right greater than left MCA distribution encephalomalacia with associated ex vacuo dilatation of the right lateral ventricle. 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 No mass lesion or mass effect. No hydrocephalus. Aortic arch: Imaged portion shows no evidence of aneurysm. No significant stenosis of the major origins of the major arch vessels. Right carotid system: Age indeterminant but potentially remote occlusion of the right internal carotid artery at its origin. No hemodynamically significant stenosis is seen involving the common carotid artery or external carotid artery. Left carotid system: No evidence of significant (50% or greater) stenosis or occlusion. Vertebral arteries: Codominant. No evidence of significant (50% or greater) stenosis or occlusion. Anterior circulation: No evidence of aneurysm. Nonopacification of the right petrous and cavernous internal carotid artery with reconstitution of the supraclinoid internal carotid artery via the [place] of [place]. 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 Vertebrobasilar system: No evidence of aneurysm, significant stenosis, or occlusion. Venous sinuses: Grossly patent. Additional findings: Visualized portion of the lungs are grossly clear. CT/CT angio head IMPRESSION: 1. No acute large vascular territory infarct or acute intracranial hemorrhage. If there is clinical concern for recent ischemia recommend MRI brain for further evaluation. 2. Multifocal remote areas of encephalomalacia involving the right greater than left MCA distribution. 3. 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 Notification of Results Provider/Agent notified: YEISON Delgado Time/Date notified: 03/07/2024 10:40 AM [facility] Notifying Staff: Dr. Matthews Electronically authenticated by: ISABELLA MATTHEWS Date: 03/07/2024 12:41
[2024-03-07 11:39] LABS: Estimated GFR (African America >60 (>=60 mL/min/1.73m^2); Estimated GFR (Non-African Ame 50 (>=60 mL/min/1.73m^2)
--- NOTE | 2024-03-07 11:40 | CT_ITS ---
The [address] [address] Patient Name: LESLEY QUINTERO MRN: [id number] date: 1955 Sex: M Assigned Patient Location: LAB Current Patient Location: LAB Accession/Order Number: [id number] Exam Date: 03/07/2024 11:51 Report Date: 03/07/2024 12:41 At the request of: MALIHA KO Procedure: CT head/brain wo con EXAM: CT head/brain wo con, CT angio neck, CT angio head HISTORY: Syncopal episodes, Dizziness, Occlusion Basilar Artery, Stenosis Cerebral Artery COMPARISON: None. TECHNIQUE: Axial noncontrast CT imaging of the head was performed. Subsequent postcontrast CTA imaging of the head and neck was performed with coronal and sagittal reformats. Maximum intensity projection and 3-D reformats were performed on a separate workstation. NASCET criteria was utilized. This CT exam was performed using one or more of the following dose reduction techniques: Automated exposure control, adjustment of the MA and/or kV according to patient size, or use of iterative reconstruction technique. FINDINGS: Calvarium/skull base: Prior right craniotomy. No evidence of acute fracture or destructive lesion. Partial opacification of the bilateral mastoid air cells. Thickening of the right tympanic membrane is noted. Paranasal sinuses: No air fluid levels. Brain: No acute intracranial hemorrhage. No acute large vascular territory infarct. Remote right greater than left MCA distribution encephalomalacia with associated ex vacuo dilatation of the right lateral ventricle. 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 No mass lesion or mass effect. No hydrocephalus. Aortic arch: Imaged portion shows no evidence of aneurysm. No significant stenosis of the major origins of the major arch vessels. Right carotid system: Age indeterminant but potentially remote occlusion of the right internal carotid artery at its origin. No hemodynamically significant stenosis is seen involving the common carotid artery or external carotid artery. Left carotid system: No evidence of significant (50% or greater) stenosis or occlusion. Vertebral arteries: Codominant. No evidence of significant (50% or greater) stenosis or occlusion. Anterior circulation: No evidence of aneurysm. Nonopacification of the right petrous and cavernous internal carotid artery with reconstitution of the supraclinoid internal carotid artery via the [place] of [place]. 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 Vertebrobasilar system: No evidence of aneurysm, significant stenosis, or occlusion. Venous sinuses: Grossly patent. Additional findings: Visualized portion of the lungs are grossly clear. CT/CT head/brain wo con IMPRESSION: 1. No acute large vascular territory infarct or acute intracranial hemorrhage. If there is clinical concern for recent ischemia recommend MRI brain for further evaluation. 2. Multifocal remote areas of encephalomalacia involving the right greater than left MCA distribution. 3. 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 Notification of Results Provider/Agent notified: YEISON Delgado Time/Date notified: 03/07/2024 10:40 AM [facility] Notifying Staff: Dr. Matthews Electronically authenticated by: ISABELLA MATTHEWS Date: 03/07/2024 12:41
--- NOTE | 2024-03-07 11:40 | CT_ITS ---
The [address] [address] Patient Name: LESLEY QUINTERO MRN: [id number] date: 1955 Sex: M Assigned Patient Location: LAB Current Patient Location: LAB Accession/Order Number: [id number] Exam Date: 03/07/2024 11:51 Report Date: 03/07/2024 12:41 At the request of: MALIHA KO Procedure: CT angio neck EXAM: CT head/brain wo con, CT angio neck, CT angio head HISTORY: Syncopal episodes, Dizziness, Occlusion Basilar Artery, Stenosis Cerebral Artery COMPARISON: None. TECHNIQUE: Axial noncontrast CT imaging of the head was performed. Subsequent postcontrast CTA imaging of the head and neck was performed with coronal and sagittal reformats. Maximum intensity projection and 3-D reformats were performed on a separate workstation. NASCET criteria was utilized. This CT exam was performed using one or more of the following dose reduction techniques: Automated exposure control, adjustment of the MA and/or kV according to patient size, or use of iterative reconstruction technique. FINDINGS: Calvarium/skull base: Prior right craniotomy. No evidence of acute fracture or destructive lesion. Partial opacification of the bilateral mastoid air cells. Thickening of the right tympanic membrane is noted. Paranasal sinuses: No air fluid levels. Brain: No acute intracranial hemorrhage. No acute large vascular territory infarct. Remote right greater than left MCA distribution encephalomalacia with associated ex vacuo dilatation of the right lateral ventricle. 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 No mass lesion or mass effect. No hydrocephalus. Aortic arch: Imaged portion shows no evidence of aneurysm. No significant stenosis of the major origins of the major arch vessels. Right carotid system: Age indeterminant but potentially remote occlusion of the right internal carotid artery at its origin. No hemodynamically significant stenosis is seen involving the common carotid artery or external carotid artery. Left carotid system: No evidence of significant (50% or greater) stenosis or occlusion. Vertebral arteries: Codominant. No evidence of significant (50% or greater) stenosis or occlusion. Anterior circulation: No evidence of aneurysm. Nonopacification of the right petrous and cavernous internal carotid artery with reconstitution of the supraclinoid internal carotid artery via the [place]. 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 Vertebrobasilar system: No evidence of aneurysm, significant stenosis, or occlusion. Venous sinuses: Grossly patent. Additional findings: Visualized portion of the lungs are grossly clear. CT/CT angio neck IMPRESSION: 1. No acute large vascular territory infarct or acute intracranial hemorrhage. If there is clinical concern for recent ischemia recommend MRI brain for further evaluation. 2. Multifocal remote areas of encephalomalacia involving the right greater than left MCA distribution. 3. 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 Notification of Results Provider/Agent notified: YEISON Delgado Time/Date notified: 03/07/2024 10:40 AM [facility] Notifying Staff: Dr. Matthews Electronically authenticated by: ISABELLA MATTHEWS Date: 03/07/2024 12:41
== END 2024-03-07 11:09 | disposition home or self-care (01) ==
PROVIDERS: PCP Internal Medicine; Visit Provider Physician Assistant Medical
DX: R42 Dizziness and giddiness (principal); I65.29 Occlusion and stenosis of unspecified carotid artery; I66.09 Occlusion and stenosis of unspecified middle cerebral artery; I65.1 Occlusion and stenosis of basilar artery
CPT/HCPCS: 36415; 70450; 70496; 70498; 82565; Q9967

== ENCOUNTER 2024-03-23 00:18 | Outpatient (RCR) | payer MEDICARE, SELFPAY | END 2024-04-21 15:21 | disposition home or self-care (01) | LOC: MM 00:18 | PROVIDERS: PCP Internal Medicine; Visit Provider Internal Medicine | DX: Z51.81 Encounter for therapeutic drug level monitoring (principal); Z79.01 Long term (current) use of anticoagulants | CPT/HCPCS: 85610; G0463 ==

== ENCOUNTER 2024-04-24 02:19 | Outpatient (RCR) | payer MEDICARE, SELFPAY | END 2024-05-19 10:49 | disposition home or self-care (01) | LOC: MM 02:19 | PROVIDERS: PCP Internal Medicine; Visit Provider Internal Medicine | DX: Z51.81 Encounter for therapeutic drug level monitoring (principal); Z79.01 Long term (current) use of anticoagulants; I48.91 Unspecified atrial fibrillation | CPT/HCPCS: 85610; G0463 ==

== ENCOUNTER 2024-05-20 07:26 | Outpatient (RCR) | payer MEDICARE, SELFPAY | END 2024-06-16 10:12 | disposition home or self-care (01) | LOC: MM 07:26 | PROVIDERS: PCP Internal Medicine; Visit Provider Internal Medicine | DX: Z51.81 Encounter for therapeutic drug level monitoring (principal); Z79.01 Long term (current) use of anticoagulants; I48.91 Unspecified atrial fibrillation ==

== ENCOUNTER 2024-06-20 01:57 | Outpatient (RCR) | payer MEDICARE, SELFPAY | END 2024-07-19 13:47 | disposition home or self-care (01) | LOC: MM 01:57 | PROVIDERS: PCP Internal Medicine; Visit Provider Internal Medicine | DX: Z51.81 Encounter for therapeutic drug level monitoring (principal); Z79.01 Long term (current) use of anticoagulants | CPT/HCPCS: 85610; G0463 ==

== ENCOUNTER 2024-07-20 04:41 | Outpatient (RCR) | payer MEDICARE, SELFPAY | END 2024-08-19 07:11 | disposition home or self-care (01) | LOC: MM 04:41 | PROVIDERS: PCP Internal Medicine; Visit Provider Internal Medicine | DX: Z51.81 Encounter for therapeutic drug level monitoring (principal); Z79.01 Long term (current) use of anticoagulants | CPT/HCPCS: 85610; G0463 ==

== ENCOUNTER 2024-08-08 13:53 | Outpatient (OUT) | payer MEDICARE, SELFPAY ==
[2024-08-08 14:41] LABS: Basophils Percent Auto 0.5 % (0.2-2.0); Eosinophils Absolute Auto 0.2 10^3/uL (0.0-0.7); Eosinophils Percent Auto 2.5 % (0.9-7.0); Hematocrit 41.9 % (42.0-54.0); Immature Granulocytes Abs Auto 0.02 10^3/uL (0.00-0.03); Immature Granulocytes Pct Auto 0.2 % (0.0-0.5); Lymphocytes Absolute Auto 2.8 10^3/uL (1.2-3.8); Lymphocytes Percent Auto 33.2 % (20.5-60.0); Mean Corpuscular Hemoglobin 25.7 pg (25.9-34.0); Monocytes Absolute Auto 0.6 10^3/uL (0.3-0.8); Monocytes Percent Auto 7.2 % (1.7-12.0); Neutrophils Absolute Auto 4.7 10^3/uL (1.4-6.5); Neutrophils Percent Auto 56.4 % (43.0-75.0); Platelet Count 169 10^3/uL (150-450); Red Blood Count 5.05 10^6/uL (4.70-6.10); Red Cell Distribution Width 21.1 % (11.0-15.0); White Blood Count 8.3 10^3/uL (4.0-11.0)
[2024-08-08 15:41] LABS: Prostate Specific Antigen Scrn 0.32 ng/mL (<=4.00)
[2024-08-09 04:08] LABS: Vitamin B12 245 pg/mL (232-1245)
== END 2024-08-08 13:54 | disposition home or self-care (01) ==
LOC: LAB 13:55
PROVIDERS: PCP Internal Medicine; Visit Provider Internal Medicine
DX: D64.9 Anemia, unspecified (principal); Z12.5 Encounter for screening for malignant neoplasm of prostate; Z51.81 Encounter for therapeutic drug level monitoring; Z79.01 Long term (current) use of anticoagulants
CPT/HCPCS: 36415; 82607; 82728; 82746; 83540; 83550; 85025; 85610; G0103

== ENCOUNTER 2024-08-20 08:19 | Outpatient (RCR) | payer MEDICARE, SELFPAY | END 2024-09-14 15:04 | disposition home or self-care (01) | LOC: MM 08:19 | PROVIDERS: PCP Internal Medicine; Visit Provider Internal Medicine | DX: Z51.81 Encounter for therapeutic drug level monitoring (principal); Z79.01 Long term (current) use of anticoagulants | CPT/HCPCS: 85610; G0463 ==

== ENCOUNTER 2024-09-19 02:31 | Outpatient (RCR) | payer MEDICARE, SELFPAY | END 2024-10-19 16:58 | disposition home or self-care (01) | LOC: MM 02:31 | PROVIDERS: PCP Internal Medicine; Visit Provider Internal Medicine | DX: Z51.81 Encounter for therapeutic drug level monitoring (principal); Z79.01 Long term (current) use of anticoagulants | CPT/HCPCS: 85610; G0463 ==

== ENCOUNTER 2024-10-20 01:56 | Outpatient (RCR) | payer MEDICARE, SELFPAY | END 2024-11-16 12:49 | disposition home or self-care (01) | LOC: MM 01:56 | PROVIDERS: PCP Internal Medicine; Visit Provider Internal Medicine | DX: Z51.81 Encounter for therapeutic drug level monitoring (principal); Z79.01 Long term (current) use of anticoagulants | CPT/HCPCS: 85610; G0463 ==

== ENCOUNTER 2024-11-20 00:36 | Outpatient (RCR) | payer MEDICARE, SELFPAY | END 2024-12-19 15:38 | disposition home or self-care (01) | LOC: MM 00:36 | PROVIDERS: PCP Internal Medicine; Visit Provider Internal Medicine | DX: Z51.81 Encounter for therapeutic drug level monitoring (principal); Z79.01 Long term (current) use of anticoagulants | CPT/HCPCS: 85610; G0463 ==

== ENCOUNTER 2024-11-30 12:19 | Outpatient (OUT) | payer MEDICARE, SELFPAY ==
[2024-11-30 13:14] LABS: Hematocrit 42.6 % (42.0-54.0); Hemoglobin 14.0 g/dL (14.0-18.0); Immature Granulocytes Abs Auto 0.02 10^3/uL (0.00-0.03); Immature Granulocytes Pct Auto 0.3 % (0.0-0.5); Lymphocytes Absolute Auto 2.6 10^3/uL (1.2-3.8); Mean Corpuscular HGB Conc 32.9 g/dL (29.9-35.2); Mean Corpuscular Hemoglobin 27.8 pg (25.9-34.0); Mean Corpuscular Volume 84.7 fL (80.0-94.0); Platelet Count 133 10^3/uL (150-450); Red Blood Count 5.03 10^6/uL (4.70-6.10); White Blood Count 6.6 10^3/uL (4.0-11.0)
[2024-11-30 13:56] LABS: Ferritin 42.0 ng/mL (26.0-388.0)
[2024-12-01 04:07] LABS: Immunoglobulin A, Qn 225 mg/dL (61-437); Vitamin B12 256 pg/mL (232-1245)
== END 2024-11-30 12:20 | disposition home or self-care (01) ==
LOC: LAB 12:20
PROVIDERS: PCP Internal Medicine; Visit Provider Internal Medicine
DX: D64.9 Anemia, unspecified (principal); R19.7 Diarrhea, unspecified
CPT/HCPCS: 36415; 82607; 82728; 82784; 85025; 86364

== ENCOUNTER 2024-12-20 01:28 | Outpatient (RCR) | payer MEDICARE, SELFPAY | END 2025-01-19 23:59 | disposition home or self-care (01) | LOC: MM 01:28 | PROVIDERS: PCP Internal Medicine; Visit Provider Internal Medicine | DX: Z51.81 Encounter for therapeutic drug level monitoring (principal); Z79.01 Long term (current) use of anticoagulants ==

== ENCOUNTER 2025-01-01 12:45 | Outpatient (OUT) | payer MEDICARE, SELFPAY ==
--- OUTSIDE RECORDS SUMMARY | 2025-01-01 12:47 | XMS_ITS | Encounter Summary ---
Author Organization [facility] Address [address] [place] [address] Care Team Providers Care Crop Farm Helper Name Role Phone Lee Mena DO Primary Care Provider [phone] Lee Mena DO Unavailable [phone] Nany De Santiago DO Unavailable [phone] Encounter Details Date Type Department Care Team (Late st Contact Info) Description 05/25/2024 Abstract [facility] [address] [facility] [address] [place] [address] Nany De Santiago, DO [address] [facility] [address] [place] [address] Social History Tobacco Use Types Packs/Day Years Used Date Smoking Tobacco: Every Day Cigarettes 1 50 Alcohol Use Standard Drinks/Week Comments Yes 9 (1 standard drink = 0.6 oz pur e alcohol) caffeine 2-3 cups per day B1300 Health Literacy Answer Date Recor ded How often do you need to hav e someone help you when you read instructions, pamphlets, or other written material from your doctor or pharmacy? Sometimes 05/23/2024 Social Connection and Isolation Panel Answer Date Recorded In a typical week, how many times do you talk on the phone with family, friends, or neighbors? More than three times a week 05/23/2024 How often do you get togethe r with friends or relatives? Once a week 05/23/2024 How often do you attend [facility] or muslim services? Never 05/23/2024 Do you belong to any clubs o r organizations such as buddhist groups, unions, fraternal or athletic groups, or school groups? Yes 05/23/2024 How often do you attend meet ings of the clubs or organizations you belong to? More than 4 times per year 05/23/2024 Are you , , di vorced, , never , or living with a partner? 05/23/2024 AUDIT-C Answer Date Recorded Q1: How often do you have a drink containing alc ohol? 2-4 times a month 05/23/2024 Q2: How many drinks containi ng alcohol do you have on a typical day when you are drinking? 5 or 6 05/23/2024 Q3: How often do you have si x or more drinks on one occasion? Less than monthly 05/23/2024 Overall Financial Resource Strain (CARDIA) Answe r Date Recorded How hard is it for you to pa y for the very basics like food, housing, medical care, and heating? Not hard at all 05/23/2024 PHQ-2 Answer Date Recorded Patient Health Questionnaire-2 Score 0 05/23/2024 [facility] - Occupational Stress Questionnaire Answer Date Recorded Do you feel stress - tense, restless, nervous, or anxious, or unable to sleep at night because your mind is troubled all the time - these days? Not at all 05/23/2024 Exercise Vital Sign Answer Date Recorde d On average, how many days pe r week do you engage in moderate to strenuous exercise (like a brisk walk)? 0 days 05/23/2024 On average, how many minutes do you engage in exercise at this level? 0 min 05/23/2024 Hunger Vital Sign Answer Date Recorded Within the past 12 months, y ou worried that your food would run out before you got the money to buy more. Never true 05/24/19 25 Within the past 12 months, t he food you bought just didn't last and you didn't have money to get more. Never true 05/23/2024 PRAPARE - Transportation Answer Date Re corded In the past 12 months, has l ack of transportation kept you from medical appointments or from getting medications? No 06/2024 In the past 12 months, has l ack of transportation kept you from meetings, work, or from getting things needed for daily living? No 05/23/2024 Housing Stability Vital Sign Answer Dane e Recorded In the last 12 months, was t here a time when you were not able to pay the mortgage or rent on time? No 05/23/2024 In the past 12 months, how m any times have you moved where you were living? 0 05/23/2024 At any time in the past 12 m ont, were you homeless or living in a mcc (including now)? No 05/23/2024 Sex and Gender Information Value Date Recorded Sex Assigned at Not on file Legal Sex Male 6:57 PM EDT Gender Identity Not on file Sexual Orientation Not on file documented as of this encounter Plan of Treatment Upcoming Encounters Date Type Department Care Team (Late st Contact Info) Description 02/27/2025 10:30 AM EST Office [facility] [address] [place] [address] Nany De Santiago DO [address] [place] [address] documented as of this encounter Visit Diagnoses Not on filedocumented in this encounter Care Teams Crop Farm Helper Relationship Specialty Start Date End Date Lee Mena DO [address] [place] [address] PCP - General Internal Medicine 09/01/23 Nany De Santiago DO [address] [place] [address] PCP - Pineda ONOFRE 09/19/24 Lee Mena DO [address] [place] [address] Referring Physician Internal Medicine 06/08/24 documented as of this encounter
--- OUTSIDE RECORDS SUMMARY | 2025-01-01 12:47 | XMS_ITS | Encounter Summary ---
Author Organization [facility] Address [address] [place] [address] Care Team Providers Care Mri Tech Name Role Phone Lee Mena DO Primary Care Provider [phone] Lee Mena DO Unavailable [phone] Nany De Santiago DO Unavailable [phone] Encounter Details Date Type Department Care Team (Late st Contact Info) Description 05/23/2024 Orders Only [facility] [address] [facility] [address] [place] [address] Nany De Santiago, [address] [facility] [address] [place] [address] Social History Tobacco Use Types Packs/Day Years [...] week 05/23/2024 How often do you attend [facility] or scientologist services? Never 05/23/2024 Do you belong to any clubs o r organizations such as sabianism groups, unions, fraternal or athletic groups, or [...] Recorded Patient Health Questionnaire-2 Score 0 05/23/2024 [facility] - Occupational [...] any time in the past 12 m [facility], were you homeless or living in a custodial (including now)? No 05/23/2024 Sex and Gender Information Value Date Recorded Sex Assigned at Not on file Legal Sex Male 6:57 PM EDT Gender Identity Not on file Sexual Orientation Not on file documented as of this encounter Functional Status * AUDIT-C Score Answer Date of Assessment Author 5 05/23/2024 10:50 AM EST Mychart, Generic * Q1: How often do you have a drink containing alcohol? Answer Date of Assessment Author 2-4 times a month 05/23/2024 10:50 AM EST Mychar t, Generic * Q2: How many drinks containing alcohol do you have on a typical day when you are drinking? Answer Date of Assessment Author 5 or 6 05/23/2024 10:50 AM EST Mychart, Generic * Q3: How often do you have six or more drinks on one occasion? Answer Date of Assessment Author Less than monthly 05/23/2024 10:50 AM EST Mychar t, Generic * Over the past 2 weeks, how often have you been bothered by any of the following problems? Question Answer Date of Assessment Author Little interest or pleasure in doing things Not at all 05/23/2024 3:01 PM Beth Ho LPN Feeling down, depressed, or hopeless Not at all 05/23/2024 3:01 PM Beth Ho LPN Patient Health Questionnaire-2 Score 0 05/23/2024 3:01 PM Morgan Ho LPN documented as of this encounter Plan of Treatment Upcoming Encounters Date Type Department Care Team (Late st Contact Info) Description 02/27/2025 10:30 AM EST Office Visit [facility] [address] [place] [address] Nany De Santiago, [address] [place] [address] documented as of this encounter Procedures Procedure Name Priority Date/Time Associated Diagnosis Comments HEMOGLOBIN A1C Routine 05/10/2024 2:07 PM EST documented in this encounter Results * (ABNORMAL) Hemoglobin A1c (05/10/2024 2:07 PM EST) Blood Venous blood specimen / Unknown Nany De Santiago DO LAB BLOOD ORDERABLES Edite d Result - Final documented in this encounter Visit Diagnoses Not on filedocumented in this encounter Care Teams Mri Tech Relationship Specialty Start Date End Date Lee Mena DO [address] [place] [address] PCP - General Internal Medicine 09/01/23 Nany De Santiago, [address] [address] PCP - Pineda ONOFRE 09/19/24 Lee Mena DO [address] [place] [address] Referring Physician Internal Medicine 06/08/24 documented as of this encounter
--- OUTSIDE RECORDS SUMMARY | 2025-01-01 12:47 | XMS_ITS | Encounter Summary ---
Author Organization [facility] Address [address] [place] [address] Phone Care Team Providers Care Sodium Methylate Operator Name Role Phone Herlinda Velazquez Rowan ROGERS Unavailable Lee Mena DO Primary Care Provider Carmen Alvarez MD Unavailable Lee Mena DO Primary Care Provider [phone] Encounter Details Date Type Department Care Team (Late st Contact Info) Description 08/24/2023 Patient Risk Score [facility] [address] [place] [address] Social History Tobacco Use Types Packs/Day Years Used Date Smoking Tobacco: Every Day Cigarettes 1 45 Smokeless Tobacco: Never Alcohol Use Standard Drinks/Week Comments Yes 2 (1 standard drink = 0.6 oz pur e alcohol) occasssional Sex and Gender Information Value Date Recorded Sex Assigned at Male 01/09/2023 11:58 AM EDT Legal Sex Male 8:00 PM EST Gender Identity Male 01/09/2023 11:58 AM EDT Sexual Orientation Not on file COVID-19 Exposure Response Date Recorded In the last 10 days, have yo u been in contact with someone who was confirmed or suspected to have Coronavirus/COVID-19? No / Unsure 08/24/2023 12:01 PM EDT documented as of this encounter Functional Status * Question Answer Date of Assessment Author BP 120/60 08/24/2023 12:45 PM EDT Kashif Cáhvez, RT * Communicable Disease Screening Question Answer Date of Assessment Author Do you have any of the follo wing new or worsening symptoms? None of these 08/24/2023 12:01 PM EDT Jenny Garcia documented as of this encounter Plan of Treatment Upcoming Encounters Date Type Department Care Team (Late st Contact Info) Description 01/16/2025 9:30 AM EDT Office Visit [address] [place] [address] Herlinda Velazquez, COBBLER MCKAY-HOT OILER 7[address] [facility] 2, [address] [place] [address] 06/26/2025 1:20 PM EDT Appointment [facility] [place] [address] [place] [facility] [place] [address] 06/26/2025 2:00 PM EDT Office Visit [facility] [address] [facility] [address] [place] [address] Carmen Alvarez MD [address] [facility] Office [facility], [address] [place] [address] 07/18/2025 9:50 AM EDT Office Visit [address] [place] [address] Jesus Posey DO 703 [facility] 2, [address] [place] [address] documented as of this encounter Visit Diagnoses Not on filedocumented in this encounter Additional Health Concerns Assessment Noted Time A fall risk assessment has been complete d for the patient 07/13/2023 10:16 AM EDT documented as of this encounter Care Teams Sodium Methylate Operator Relationship Specialty Start Date End Date Herlinda Velazquez, COBBLER MCKAY-HOT OILER [address] [place] [address] 2, [address] [place] [address] PCP - MMO Medicare Advantage PCP 12/20/22 03/21/24 Lee Mena DO 703 [facility] 2, [address] [place] [address] PCP - General Internal Medicine 02/24/23 10/04/23 Lee Mena DO [address] [place] [address] PCP - General Internal Medicine 10/05/23 Carmen Alvarez MD [address] [facility], [address] [place], [place] [address] Safety Engineer Pressure Vessels Electrophysiology 05/21/23 documented as of this encounter
--- OUTSIDE RECORDS SUMMARY | 2025-01-01 12:48 | XMS_ITS | Encounter Summary ---
Author Organization [facility] Address [address] [place] [address] Phone Care Team Providers Care Printed Circuit Boards Contact Printer Name Role Phone Herlinda Velazquez Rowan ROGERS Unavailable Carmen Alvarez MD Unavailable Lee Mena DO Primary Care Provider [phone] Encounter Details Date Type Department Care Team (Late st Contact Info) Description 01/24/2024 Patient Risk Score [facility] Care Management [address] [facility] [address] [place] [address] Social History Tobacco Use Types [...] suspected to have Coronavirus/COVID-19? No / Unsure 01/12/2024 10:45 AM EDT documented as of this encounter Plan of Treatment Upcoming Encounters Date Type Department Care Team (Late Contact Info) Description 01/16/2025 9:30 AM EDT Office Visit [facility] 703 [facility] 250 [place] [address] Herlinda Velazquez VICE PRINCIPAL-[employer] SPANISH TEACHER 7[address] [facility] 2, [facility] 250 [place] [address] 06/26/2025 1:20 PM EDT Appointment [facility] [address] [place] [facility] [place] [address] 06/26/2025 2:00 PM EDT Office Visit [facility] [address] [facility] [address] [place] [address] Carmen Alvarez MD [address] [facility], [facility] 305 [place] [address] 07/18/2025 9:50 AM EDT Office Visit [facility] [address] [address] Jesus Posey DO 703 [facility] 2, [address] [address] documented as of this encounter Visit Diagnoses Not on filedocumented in this encounter Additional Health Concerns Assessment Noted Time A fall risk assessment has been complete d for the patient 10/05/2023 1:30 PM EDT documented as of this encounter Care Teams Printed Circuit Boards Contact Printer Relationship Specialty Start Date End Date Herlinda Velazquez VICE [employer] SPANISH TEACHER 703 [facility] 2, [address] [address] PCP - MMO Medicare Advantage PCP 12/20/22 03/21/24 Lee Mena DO [address] [place] [address] PCP - General Internal Medicine 10/05/23 Carmen Alvarez MD [address] [facility] Office [facility], [facility] [address] [place] [address] Scorer Helper Electrophysiology 05/21/23 documented as of this encounter
--- OUTSIDE RECORDS SUMMARY | 2025-01-01 12:48 | XMS_ITS | Encounter Summary ---
Author Organization [facility] Address [address] [place] [address] Phone Care Team Providers Care Medical Lab Technician Name Role Phone Herlinda Velazquez Rowan ROGERS Unavailable Carmen Alvarez MD Unavailable Lee Mena DO Primary Care Provider [phone] Encounter Details Date Type Department Care Team (Late st Contact Info) Description 12/24/2023 Patient Risk Score [facility] Care Management [address] [employer] [address] [place] [address] Social History Tobacco Use Types [...] suspected to have Coronavirus/COVID-19? No / Unsure 12/03/2023 1:58 PM EDT documented as of this encounter Plan of Treatment Upcoming Encounters Date Type Department Care Team (Late Contact Info) Description 01/16/2025 9:30 AM EDT Office Visit [facility] 703 [facility] 250 [place] [address] Herlinda Velazquez FIRE CAPTAIN MARINE-BIOMATERIALS ENGINEER 703 [facility] 2, [facility] 250 [place] [address] 06/26/2025 1:[address] [facility] [address] [place] [address] 06/26/2025 2:00 PM EDT Office Visit [facility] [address] [facility] [address] [place] [address] Carmen Alvarez MD [address] [facility], [facility] 305 [place] [address] 07/18/2025 9:50 AM EDT Office Visit [facility] [address] [address] Jesus Posey DO 703 [facility] 2, [address] [address] documented as of this encounter Visit Diagnoses Not on filedocumented in this encounter Additional Health Concerns Assessment Noted Time A fall risk assessment has been complete d for the patient 10/05/2023 1:30 PM EDT documented as of this encounter Care Teams Medical Lab Technician Relationship Specialty Start Date End Date Herlinda Velazquez FIRE CAPTAIN MARINE-BIOMATERIALS ENGINEER 703 [facility] 2, [address] [address] PCP - MMO Medicare Advantage PCP 12/20/22 03/21/24 Lee Mena DO [address] [place] [address] PCP - General Internal Medicine 10/05/23 Carmen Alvarez MD [address] [facility] Office [facility], [facility] [address] [place] [address] Programming Engineer Electrophysiology 05/21/23 documented as of this encounter
--- OUTSIDE RECORDS SUMMARY | 2025-01-01 12:48 | XMS_ITS | Encounter Summary ---
Author Organization [facility] Address [address] [place] [address] Phone Care Team Providers Care Immigration Consultant Name Role Phone Lee Mena DO Primary Care Provider Lee Mena DO Unavailable [phone] Herlinda Velazquez FRETTED INSTRUMENT INSPECTOR-DIRECTOR OF MARKET INTELLIGENCE Unavailable Lee Mena DO Primary Care Provider Carmen Alvarez MD Unavailable Lee Mena DO Primary Care Provider [phone] Encounter Details Date Type Department Care Team (Late st Contact Info) Description 10/14/2021 Orders Only [facility] [address] [place] [address] Conversion, Onbase Social History Tobacco Use Types Packs/Day Years Used Date Smoking Tobacco: Never Assessed Sex and Gender Information Value Date Recorded Sex Assigned at Male 01/09/2023 11:58 AM EDT Legal Sex Male 8:00 PM EST Gender Identity Male 01/09/2023 11:58 AM EDT Sexual Orientation Not on file documented as of this encounter Plan of Treatment Upcoming Encounters Date Type Department Care Team (Late st Contact Info) Description 01/16/2025 9:30 AM EDT Office Visit [facility] 703 [facility] [address] [place] [address] Herlinda Velazquez, FRETTED INSTRUMENT INSPECTOR-DIRECTOR OF MARKET INTELLIGENCE [address] [facility] [address], [address] [place] [address] 06/26/2025 1:20 PM EDT Appointment [facility] [place] [address] [place] [address] 06/26/2025 2:00 PM EDT Office Visit [facility] [address] [facility] [address] [place] [address] Carmen Alvarez MD [address] [facility] Office [facility], [address] [place] [address] 07/18/2025 9:50 AM EDT Office Visit [facility] 703 [facility] 250 [place] [address] Jesus Posey DO 7[address] [facility] 2, [facility] 250 [place], [place] [id number] Scheduled Orders Name Type Priority Associated Diagnoses Orde r Schedule OUTSIDE LAB SCAN Lab Ordered: 10/14/2021 documented as of this encounter Visit Diagnoses Not on filedocumented in this encounter Care Teams Immigration Consultant Relationship Specialty Start Date End Date Lee Mena DO PCP - General 08/30/17 02/23/23 Lee Mena DO [facility] [place] [address] PCP - MMO Medicare Advantage PCP 07/20/22 12/19/22 Herlinda Velazquez, FRETTED INSTRUMENT INSPECTOR-DIRECTOR OF MARKET INTELLIGENCE 7[address] [facility] 2, [address] [place] [address] PCP - MMO Medicare Advantage PCP 12/20/22 03/21/24 Lee Mena DO [address] [place] [address] 2, [address] [place] [address] PCP - General Internal Medicine 02/24/23 10/04/23 Lee Mena DO [address] [place] [address] PCP - General Internal Medicine 10/05/23 Carmen Alvarez MD [address] [facility] [address], [address] [place] [address] Hose Operator Electrophysiology 05/21/23 documented as of this encounter
--- OUTSIDE RECORDS SUMMARY | 2025-01-01 12:48 | XMS_ITS | Encounter Summary ---
Author Organization [facility] Address [address] [place] [address] Phone Care Team Providers Care Game Programer Name Role Phone Lee Mena DO Primary Care Provider Lee Mena DO Unavailable Herlinda Velazquez ORDER BOOKER-RADIOLOGY ORDERLY Unavailable Lee Mena DO Primary Care Provider Carmen Alvarez MD Unavailable Lee Mena DO Primary Care Provider [phone] Encounter Details Date Type Department Care Team (Late st Contact Info) Description 10/22/2022 Patient Risk Score [facility]CO Care Management [address] [place] [address] Social History Tobacco Use Types [...] Description 01/16/2025 9:30 AM EDT Office Visit [facility] 703 [facility] [address] [place] [address] Herlinda Velazquez, ORDER BOOKER-RADIOLOGY ORDERLY [address], [address] [place] [address] 06/26/2025 1:20 PM EDT Appointment [facility] [address] [place] [facility] [place] [address] 06/26/2025 2:00 PM EDT Office Visit [facility] [address] [facility] 320 [place] [address] Carmen Alvarez MD 125 [address] [facility] Office [facility], [address] [place] [address] 07/18/2025 9:50 AM EDT Office Visit [facility] 703 [facility] 250 [place] [address] Jesus Posey DO 703 [facility] 2, [facility] 250 [place] [address] documented as of this encounter Visit Diagnoses Not on filedocumented in this encounter Care Teams Game Programer Relationship Specialty Start Date End Date Lee Mena, DO PCP - General 08/30/17 02/23/23 Lee Mena, [address] [place] [address] PCP - MMO Medicare Advantage PCP 07/20/22 12/19/22 Herlinda Velazquez, ORDER BOOKER-RADIOLOGY ORDERLY 7[address] [facility] 2, [address] [place] [address] PCP - MMO Medicare Advantage PCP 12/20/22 03/21/24 Lee Mena, [address] [facility] 2, [address] [place] [address] PCP - General Internal Medicine 02/24/23 10/04/23 Lee Mena DO [address] [place] [address] PCP - General Internal Medicine 10/05/23 Carmen Alvarez MD [address] [facility] [address], [facility] 305 [place], [place] [id number] Compensation Business Partner Electrophysiology 05/21/23 documented as of this encounter
--- OUTSIDE RECORDS SUMMARY | 2025-01-01 12:48 | XMS_ITS | Encounter Summary ---
Author Organization [facility] Address [address] [place], [place] [id number] Care Team Providers Care Environmental Programs Specialist Name Role Phone Lee Mena Primary Care Provider [phone] Pcp, No Primary Care Provider Unavailabl e Source Comments In the event this information is protected by the Federal Confidentiality of Alcohol and Drug AbusePatient Records regulations: The Federal rules restrict any use of the information to criminally investigate or prosecute any alcohol or drug abuse patient.[facility] Encounter Details Date Type Department Care Team (Late st Contact Info) Description 03/21/2013 Patient Msg Medical Records [address] [place], [place] [id number] Provider, Ccf RE: Appointment Cancellation Request Social History Tobacco Use Types Packs/Day Years Used Date Smoking Tobacco: Every Day Cigarettes 1 30 Alcohol Use Standard Drinks/Week Comments Yes 6 (1 standard drink = 0.6 oz pure alcohol) doesn't drink everyday - when he does ~6 beers. Sex and Gender Information Value Date Recorded Sex Assigned at Not on file Legal Sex Male 9:01 AM EST Gender Identity Not on file Sexual Orientation Not on file documented as of this encounter Plan of Treatment Not on file documented as of this encounter Visit Diagnoses Not on filedocumented in this encounter Care Teams Environmental Programs Specialist Relationship Specialty Start Date End Date Lee Mena DO PCP - General Internal Medicine 10/24/10 10/03/21 Pcp, Kacie PCP - General 10/04/21 04/21/22 documented as of this encounter
--- OUTSIDE RECORDS SUMMARY | 2025-01-01 12:48 | XMS_ITS | Encounter Summary ---
Author Organization [facility] Address [address] [place] [address] Phone Care Team Providers Care Steel Shot Header Operator Name Role Phone Lee Mena DO Primary Care Provider [phone] Lee Mena DO Unavailable Herlinda Velazquez PICKING MACHINE OPERATOR HELPER-TRIAL CONSULTANT Unavailable Lee Mena DO Primary Care Provider Carmen Alvarez MD Unavailable Lee Mena DO Primary Care Provider [phone] Encounter Details Date Type Department Care Team (Late st Contact Info) Description 03/18/2022 Orders Only [facility] LEGACY [address] [place] [address] Conversion, Onbase Social History Tobacco Use Types [...] Description 01/16/2025 9:30 AM EDT Office Visit [facility] 703 [facility] [address] [place] [address] Herlinda Velazquez, PICKING MACHINE OPERATOR HELPER-TRIAL CONSULTANT [address], [address] [place] [address] 06/26/2025 1:20 PM EDT Appointment [facility] [address] [place] [facility] [place] [address] 06/26/2025 2:00 PM EDT Office Visit [facility] [address] [facility] 320 [place] [address] Carmen Alvarez MD 125 [address] [facility] Office Bl, [address] [place] [address] 07/18/2025 9:50 AM EDT Office Visit [facility] [address] [facility] 250 [place] [address] Jesus Posey DO 703 [facility] 2, [facility] 250 [place], [place] [phone] Scheduled Orders Name Type Priority Associated Diagnoses Orde r Schedule OUTSIDE LAB SCAN Lab Ordered: 03/18/2022 documented as of this encounter Visit Diagnoses Not on filedocumented in this encounter Care Teams Steel Shot Header Operator Relationship Specialty Start Date End Date Lee Mena DO PCP - General 08/30/17 02/23/23 Lee Mena DO [facility] [place] [address] PCP - MMO Medicare Advantage PCP 07/20/22 12/19/22 Herlinda Velazquez, PICKING MACHINE OPERATOR HELPER-TRIAL CONSULTANT 703 [facility] 2, [address] [place] [address] PCP - MMO Medicare Advantage PCP 12/20/22 03/21/24 Lee Mena DO [address] [place] [address] 2, [address] [place] [address] PCP - General Internal Medicine 02/24/23 10/04/23 Lee Mena DO [address] [place] [place] [address] PCP - General Internal Medicine 10/05/23 Carmen Alvarez MD [address] [facility] Bl, [address] [place] [address] Highway Construction Inspector Electrophysiology 05/21/23 documented as of this encounter
--- OUTSIDE RECORDS SUMMARY | 2025-01-01 12:48 | XMS_ITS | Encounter Summary ---
Author Organization [facility] Address [address] [place] [address] Phone Care Team Providers Care Automobile Service Station Attendant Name Role Phone Lee Mena DO Primary Care Provider [phone] Lee Mena DO Unavailable Herlinda Velazquez PRODUCT INTRODUCTION MANAGER-TRAILHEAD CONSTRUCTION WORKER Unavailable Lee Mena DO Primary Care Provider Carmen Alvarez MD Unavailable Lee Mena DO Primary Care Provider Encounter Details Date Type Department Care Team (Late st Contact Info) Description 06/12/2021 Orders Only [facility] LEGACY [address] [place] [place] [address] Conversion, Onbase Social History Tobacco Use Types [...] Description 01/16/2025 9:30 AM EDT Office Visit [facility] 703 [facility] [address] [place] [address] Herlinda Velazquez, PRODUCT INTRODUCTION MANAGER-TRAILHEAD CONSTRUCTION WORKER [address] [facility] [address], [address] [place] [address] 06/26/2025 1:20 PM EDT Appointment [facility] [address] [place] [place] [address] 06/26/2025 2:00 PM EDT Office Visit [facility] [address] [facility] 320 [place] [address] Carmen Alvarez MD 125 [address] [facility] Office [facility], [facility] 305 [place] [address] 07/18/2025 9:50 AM EDT Office Visit [facility] 703 [facility] 250 [place] [address] Jesus Posey DO 703 [facility] 2, [facility] 250 [place] [address] Scheduled Orders Name Type Priority Associated Diagnoses Orde r Schedule OUTSIDE LAB SCAN Lab Ordered: 06/12/2021 OUTSIDE LAB SCAN Lab Ordered: 06/12/2021 documented as of this encounter Visit Diagnoses Not on filedocumented in this encounter Care Teams Automobile Service Station Attendant Relationship Specialty Start Date End Date Lee Mena DO PCP - General 08/30/17 02/23/23 Lee Mena DO [facility]6 [address] [place] [address] PCP - MMO Medicare Advantage PCP 07/20/22 12/19/22 Herlinda Velazquez APRN-TRAILHEAD CONSTRUCTION WORKER [address] [place] [address] 2, [facility] 250 [place] [address] PCP - MMO Medicare Advantage PCP 12/20/22 03/21/24 Lee Mena DO [address] [place] [address] 2, [address] [place] [address] PCP - General Internal Medicine 02/24/23 10/04/23 Lee Mena DO [address] [place] [place] [address] PCP - General Internal Medicine 10/05/23 Carmen Alvarez MD [address] [facility] [address] [place] [address] Trimming Cutter Machine Electrophysiology 05/21/23 documented as of this encounter
--- OUTSIDE RECORDS SUMMARY | 2025-01-01 12:48 | XMS_ITS | Encounter Summary ---
Author Organization [facility] Address [address] [place] [address] Phone Care Team Providers Care Angio Technologist Name Role Phone Lee Mena DO Primary Care Provider Lee Mena DO Unavailable Herlinda Velazquez MACHINE SORTER-PRECISION MILLWRIGHT Unavailable Lee Mena DO Primary Care Provider Carmen Alvarez MD Unavailable Lee Mena DO Primary Care Provider Encounter Details Date Type Department Care Team (Late st Contact Info) Description 01/08/2022 Orders Only [facility] LEGACY [address] [place] [address] Conversion, Onbase Social History Tobacco Use Types [...] Description 01/16/2025 9:30 AM EDT Office Visit [facility] 703 [facility] [address] [place] [address] Herlinda Velazquez, MACHINE SORTER-PRECISION MILLWRIGHT [address] [facility] [address], [address] [place] [address] 06/26/2025 1:20 PM EDT Appointment [facility] [address] [place] [address] 06/26/2025 2:00 PM EDT Office Visit [facility] 125 [address] [facility] 320 [place] [address] Carmen Alvarez MD [address] [facility] Office Bl, [address] [place] [address] 07/18/2025 9:50 AM EDT Office Visit [facility] 703 [facility] 250 [place] [address] Jesus Posey DO 703 [facility] 2, [facility] 250 [place], [place] [address] Scheduled Orders Name Type Priority Associated Diagnoses Orde r Schedule OUTSIDE LAB SCAN Lab Ordered: 01/08/2022 documented as of this encounter Visit Diagnoses Not on filedocumented in this encounter Care Teams Angio Technologist Relationship Specialty Start Date End Date Lee Mena DO PCP - General 08/30/17 02/23/23 Lee Mena DO [facility]6 [address] [place] [address] PCP - MMO Medicare Advantage PCP 07/20/22 12/19/22 Herlinda Velazquez, MACHINE SORTER-PRECISION MILLWRIGHT 703 [facility] 2, [address] [place] [address] PCP - MMO Medicare Advantage PCP 12/20/22 03/21/24 Lee Mena DO [address] [place] [address] 2, [address] [place] [address] PCP - General Internal Medicine 02/24/23 10/04/23 Lee Mena DO [address] [place] [place] [address] PCP - General Internal Medicine 10/05/23 Carmen Alvarez MD 125 [address] [facility] Bl, [address] [place] [address] Hogshead Opener Electrophysiology 05/21/23 documented as of this encounter
--- OUTSIDE RECORDS SUMMARY | 2025-01-01 12:48 | XMS_ITS | Encounter Summary ---
Author Organization [facility] Address [address] [place] [address] Phone Care Team Providers Care Nitrator Operator Name Role Phone Herlinda Velazquez Rowan ROGERS Unavailable Carmen Alvarez MD Unavailable Lee Mena DO Primary Care Provider [phone] Encounter Details Date Type Department Care Team (Late st Contact Info) Description 10/24/2023 Patient Risk Score [facility] Care Management [address] [facility] [address] [place] [address] Social History Tobacco Use Types [...] suspected to have Coronavirus/COVID-19? No / Unsure 10/05/2023 1:20 PM EDT documented as of this encounter Plan of Treatment Upcoming Encounters Date Type Department Care Team (Late Contact Info) Description 01/16/2025 9:30 AM EDT Office Visit [facility] 703 [facility] 250 [place] [address] Herlinda Velazquez ORTHOTIC/PROSTHETIC PRACTITIONER-EDUCATIONAL MANAGER 703 [facility] 2, [facility] 250 [place] [address] 06/26/2025 1:20 PM EDT Appointment [facility] [address] [place] [facility] [place] [address] 06/26/2025 2:00 PM EDT Office Visit [facility] [address] [facility] 320 [place] [address] Carmen Alvarez MD 125 [address] [facility], [facility] 305 [place] [address] 07/18/2025 9:50 AM EDT Office Visit [facility] [address] [address] Jesus Posey DO 703 [facility] 2, [address] [address] documented as of this encounter Visit Diagnoses Not on filedocumented in this encounter Additional Health Concerns Assessment Noted Time A fall risk assessment has been complete d for the patient 10/05/2023 1:30 PM EDT documented as of this encounter Care Teams Nitrator Operator Relationship Specialty Start Date End Date Herlinda Velazquez ORTHOTIC/PROSTHETIC PRACTITIONER-EDUCATIONAL MANAGER 703 [facility] 2, [address] [address] PCP - MMO Medicare Advantage PCP 12/20/22 03/21/24 Lee Mena DO [address] [place] [address] PCP - General Internal Medicine 10/05/23 Carmen Alvarez MD 125 E [facility] Office [facility], [facility] 305 [place] [address] Service Cashier Electrophysiology 05/21/23 documented as of this encounter
--- OUTSIDE RECORDS SUMMARY | 2025-01-01 12:48 | XMS_ITS | Encounter Summary ---
Author Organization [facility] Address [address] [place] [address] Phone Care Team Providers Care Nurse Assessor Name Role Phone Lee Mena DO Primary Care Provider Lee Mena DO Unavailable [phone] Herlinda Velazquez CONCRETE PAVING SUPERVISOR-YARD WORKER Unavailable Lee Mena DO Primary Care Provider Carmen Alvarez MD Unavailable Lee Mena DO Primary Care Provider [phone] Encounter Details Date Type Department Care Team (Late st Contact Info) Description 05/20/2022 Orders Only [facility] LEGACY [address] [place] [address] Conversion, Onbase Social History Tobacco Use Types [...] Description 01/16/2025 9:30 AM EDT Office Visit [facility] 703 [facility] [address] [place] [address] Herlinda Velazquez, CONCRETE PAVING SUPERVISOR-YARD WORKER [address] [facility] [address], [address] [place] [address] 06/26/2025 1:20 PM EDT Appointment [facility] [address] [place] [address] 06/26/2025 2:00 PM EDT Office Visit [facility] 125 [address] [facility] 320 [place] [address] Carmen Alvarez MD 125 E [facility] Office [facility], [address] [place] [address] 07/18/2025 9:50 AM EDT Office Visit [facility] 703 [facility] 250 [place] [address] Jesus Posey DO 703 [facility] 2, [facility] 250 [place] [address] Scheduled Orders Name Type Priority Associated Diagnoses Orde r Schedule OUTSIDE LAB SCAN Lab Ordered: 05/20/2022 documented as of this encounter Visit Diagnoses Not on filedocumented in this encounter Care Teams Nurse Assessor Relationship Specialty Start Date End Date Lee Mena DO PCP - General 08/30/17 02/23/23 Lee Mena DO [facility]6 [address] [place] [address] PCP - MMO Medicare Advantage PCP 07/20/22 12/19/22 Herlinda Velazquez, CONCRETE PAVING SUPERVISOR-YARD WORKER 703 [facility] 2, [address] [place] [address] PCP - MMO Medicare Advantage PCP 12/20/22 03/21/24 Lee Mena DO [address] [place] [address] 2, [address] [place] [address] PCP - General Internal Medicine 02/24/23 10/04/23 Lee Mena DO [address] [place] [address] PCP - General Internal Medicine 10/05/23 Carmen Alvarez MD [address] [facility] Bl, [address] [place] [address] Gameplay Engineer Electrophysiology 05/21/23 documented as of this encounter
--- OUTSIDE RECORDS SUMMARY | 2025-01-01 12:48 | XMS_ITS | Encounter Summary ---
Author Organization [facility] Address [address] [place] [address] Phone Care Team Providers Care Foreign Law Consultant Name Role Phone Carmen Alvarez MD Unavailable Lee Mena DO Primary Care Provider [phone] Encounter Details Date Type Department Care Team (Late st Contact Info) Description 04/25/2024 Patient Risk Score [facility] [place] [address] [facility] [address] [place] [address] Social History Tobacco Use Types [...] Description 01/16/2025 9:30 AM EDT Office Visit [place] [address] [facility] [address] [place] [address] Herlinda Velazquez, MACHINE FEEDER-DIRECTOR MUSEUM OR ZOO [address] [facility] [address], [address] [place] [address] 06/26/2025 1:20 PM EDT Appointment [facility] [address] [place] [place] [address] 06/26/2025 2:00 PM EDT Office Visit [facility] 125 [address] [facility] 320 [place] [address] Carmen Alvarez MD 125 E [facility] Office [facility], [address] [place] [address] 07/18/2025 9:50 AM EDT Office Visit [facility] 703 [facility] 250 [place] [address] Jesus Posey DO 703 [facility] 2, [address] [place] [address] documented as of this encounter Visit Diagnoses Not on filedocumented in this encounter Additional Health Concerns Assessment Noted Time A fall risk assessment has been complete d for the patient 10/05/2023 1:30 PM EDT documented as of this encounter Care Teams Foreign Law Consultant Relationship Specialty Start Date End Date Lee Mena DO [address] [place] [address] PCP - General Internal Medicine 10/05/23 Carmen Alvarez MD 125 E [facility], [facility] 305 [place] [address] Long Term Care Administrator Electrophysiology 05/21/23 documented as of this encounter
--- OUTSIDE RECORDS SUMMARY | 2025-01-01 12:48 | XMS_ITS | Encounter Summary ---
Author Organization [facility] Address [address] [place] [address] Phone Care Team Providers Care Coal Dumping Equipment Operator Name Role Phone Carmen Alvarez MD Unavailable Lee Mena DO Primary Care Provider [phone] Encounter Details Date Type Department Care Team (Late st Contact Info) Description 05/17/2024 Scanned Document [facility] [address] [place] [address] Scanning, Generic Provider Social History Tobacco Use Types Packs/Day Years [...] Description 01/16/2025 9:30 AM EDT Office Visit [facility] 703 [facility] [address] [place] [address] Herlinda Velazquez, VOICE OVER ARTIST-BALLET TEACHER 703 [facility] [address], [address] [place] [address] 06/26/2025 1:20 PM EDT Appointment [facility] [address] [place] [address] 06/26/2025 2:00 PM EDT Office Visit [facility] [address] [place] [address] Carmen Alvarez MD 125 [address] [facility], [address] [place] [address] 07/18/2025 9:50 AM EDT Office Visit [facility] 703 [facility] [address] [place] [address] Jesus Posey DO 703 [facility] 2, [address] [place] [address] documented as of this encounter Procedures Procedure Name Priority Date/Time Associated Diagnosis Comments OUTSIDE LAB SCAN 05/17/2024 documented in this encounter Results * OUTSIDE LAB SCAN (05/17/2024) Narrative 05/17/2024 Ordered by an unspecified provider. Generic Provider Scanning OUTSIDE SCAN Final Result documented in this encounter Visit Diagnoses Not on filedocumented in this encounter Additional Health Concerns Assessment Noted Time A fall risk assessment has been complete d for the patient 10/05/2023 1:30 PM EDT documented as of this encounter Care Teams Coal Dumping Equipment Operator Relationship Specialty Start Date End Date Lee Mena DO [address] [place] [address] PCP - General Internal Medicine 10/05/23 Carmen Alvarez MD 125 [address] [facility], [address] [place] [address] Cash Control Specialist Electrophysiology 05/21/23 documented as of this encounter
--- OUTSIDE RECORDS SUMMARY | 2025-01-01 12:48 | XMS_ITS | Encounter Summary ---
Author Organization [facility] Address [address] [place] [address] Phone Care Team Providers Care Hospital Recruiter Name Role Phone Lee Mena DO Primary Care Provider Lee Mena DO Unavailable Herlinda Velazquez STUDY SPECIALIST-BIODIESEL ENGINE SPECIALIST Unavailable Lee Mena DO Primary Care Provider Carmen Alvarez MD Unavailable Lee Mena DO Primary Care Provider Encounter Details Date Type Department Care Team (Late st Contact Info) Description 07/08/2021 Orders Only [facility] [address] [place] [address] Conversion, Onbase Social History Tobacco Use Types [...] Description 01/16/2025 9:30 AM EDT Office Visit [facility] 703 [facility] [address] [place] [address] Herlinda Velazquez, STUDY SPECIALIST-BIODIESEL ENGINE SPECIALIST [address] [facility] [address], [address] [place] [address] 06/26/2025 1:20 PM EDT Appointment [facility] [address] [place] [facility] [place] [address] 06/26/2025 2:00 PM EDT Office Visit [facility] [address] [facility] 320 [place] [address] Carmen Alvarez MD [address] [facility] Bl, [address] [place] [address] 07/18/2025 9:50 AM EDT Office Visit [facility] 703 [facility] 250 [place] [address] Jesus Posey DO 703 [facility] 2, [facility] 250 [place], [place] [address] Scheduled Orders Name Type Priority Associated Diagnoses Orde r Schedule OUTSIDE LAB SCAN Lab Ordered: 07/08/2021 documented as of this encounter Visit Diagnoses Not on filedocumented in this encounter Care Teams Hospital Recruiter Relationship Specialty Start Date End Date Lee Mena DO PCP - General 08/30/17 02/23/23 Lee Mena DO [facility]6 [address] [place] [address] PCP - MMO Medicare Advantage PCP 07/20/22 12/19/22 Herlinda Velazquez, STUDY SPECIALIST-BIODIESEL ENGINE SPECIALIST 703 [facility] 2, [address] [place] [address] PCP - MMO Medicare Advantage PCP 12/20/22 03/21/24 Lee Mena DO [address] [place] [address] 2, [address] [place] [address] PCP - General Internal Medicine 02/24/23 10/04/23 Lee Mena DO [address] [place] [place] [address] PCP - General Internal Medicine 10/05/23 Carmen Alvarez MD [address] [facility] [address], [address] [place] [address] Outpatient Facility Physical Therapist Electrophysiology 05/21/23 documented as of this encounter
--- OUTSIDE RECORDS SUMMARY | 2025-01-01 12:48 | XMS_ITS | Encounter Summary ---
Author Organization [facility] Address [address] [place] [address] Care Team Providers Care Laundry Assistant Name Role Phone Lee Mena DO Primary Care Provider [phone] Lee Mena DO Unavailable [phone] Nany De Santiago DO Unavailable [phone] Encounter Details Date Type Department Care Team (Late Contact Info) Description 03/07/2024 Clinisync Result Encounter [facility] Department Unsolicited Marcella Ko PA [address] [place] [address] Social History Tobacco Use Types Packs/Day Years Used Date Smoking Tobacco: Every Day Cigarettes Alcohol Use Standard Drinks/Week Comments Not Currently 3 (1 standard drink = 0.6 oz pur e alcohol) caffeine 2-3 cups per day Sex and Gender Information Value Date Recorded Sex Assigned at Not on file Legal Sex Male 6:57 PM EDT Gender Identity Not on file Sexual Orientation Not on file documented as of this encounter Plan of Treatment Upcoming Encounters Date Type Department Care Team (Late Contact Info) Description 02/27/2025 10:30 AM EST Office Visit [facility] [address] [facility] [address] [place] [address] Nany De Santiago DO [address] [facility] [address] [place] [address] documented as of this encounter Procedures Procedure Name Priority Date/Time Associated Diagnosis Comments CT ANGIOGRAM NECK 03/07/2024 12: 41 PM EST documented in this encounter Results * CT angiogram neck (03/07/2024 12:41 PM EST) Anatomical Region Laterality Modality Head, Neck Computed Tomogra phy 03/07/2024 12:4 1 PM EST Narrative 03/07/2024 12:44 [place] [address] CT Scan Report Signed Patient: KASHIF ROD MR#: [id number] : 1955 Acct:[id number] Age/Sex: 69 / M ADM Date: 03/07/24 Loc: LAB Attending Dr: Marcella LATHAM Ordering Physician: Marcella Ko Date of Service: 03/07/24 Procedure(s): CT angio neck Accession Number(s): [id number] cc: Lee Mena D.O. [place] [id number] Patient Name: KASHIF ROD MRN: [id number] date: 1955 Sex: M Assigned Patient Location: LAB Current Patient Location: LAB Accession/Order Number: [id number] Exam Date: 03/07/2024 11:51 Report Date: 03/07/2024 12:41 At the request of: MARCELLA KO Procedure: CT angio neck EXAM: CT head/brain wo con, CT angio neck, CT angio head HISTORY: Syncopal episodes, Dizziness, Occlusion Basilar Artery, Stenosis Cerebral Artery COMPARISON: None. TECHNIQUE: Axial noncontrast CT imaging of the head was performed. Subsequent postcontrast CTA imaging of the head and neck was performed with coronal and sagittal reformats. Maximum intensity projection and 3-D reformats were performed on a separate workstation. NASCET criteria was utilized. This CT exam was performed using one or more of the following dose reduction techniques: Automated exposure control, adjustment of the MA and/or kV according to patient size, or use of iterative reconstruction technique. FINDINGS: Calvarium/skull base: Prior right craniotomy. No evidence of acute fracture or destructive lesion. Partial opacification of the bilateral mastoid air cells. Thickening of the right tympanic membrane is noted. Paranasal sinuses: No air fluid levels. Brain: No acute intracranial hemorrhage. No acute large vascular territory infarct. Remote right greater than left MCA distribution encephalomalacia with associated ex vacuo dilatation of the right lateral ventricle. 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 No mass lesion or mass effect. No hydrocephalus. Aortic arch: Imaged portion shows no evidence of aneurysm. No significant stenosis of the major origins of the major arch vessels. Right carotid system: Age indeterminant but potentially remote occlusion of the right internal carotid artery at its origin. No hemodynamically significant stenosis is seen involving the common carotid artery or external carotid artery. Left carotid system: No evidence of significant (50% or greater) stenosis or occlusion. Vertebral arteries: Codominant. No evidence of significant (50% or greater) stenosis or occlusion. Anterior circulation: No evidence of aneurysm. Nonopacification of the right petrous and cavernous internal carotid artery with reconstitution of the supraclinoid internal carotid artery via the [place] of [place]. 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 Vertebrobasilar system: No evidence of aneurysm, significant stenosis, or occlusion. Venous sinuses: Grossly patent. Additional findings: Visualized portion of the lungs are grossly clear. CT/CT angio neck IMPRESSION: 1. No acute large vascular territory infarct or acute intracranial hemorrhage. If there is clinical concern for recent ischemia recommend MRI brain for further evaluation. 2. Multifocal remote areas of encephalomalacia involving the right greater than left MCA distribution. 3. 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 Notification of Results Provider/Agent notified: YEISON Delgado Time/Date notified: 03/07/2024 10:40 AM MST Notifying Staff: Dr. Matthews Electronically authenticated by: ISABELLA MATTHEWS Date: 03/07/2024 12:41 Dictated By: Isabella Matthews M.D. Signed By: 03/07/24 1244 DD/ 1241 TD/TT: Flag Signaler: Procedure Note Radiology, Radiologist, MD - 03/07/[address] [address] [address] Scan Report Signed Patient: KASHIF ROD GMR#: [id number] : 1955cct:[id number] Age/Sex: 69 / MADM Date: 03/07/24 Loc: LAB Attending Dr: Marcella LATHAM Ordering Physician: Marcella Ko Date of Service: 03/07/24 Procedure(s): CT angio neck Accession Number(s): [id number] cc: Lee Mena D.O. The [address] [address] Patient Name: KASHIF ROD MRN: [id number] date: 1955 Sex: M Assigned Patient Location: LAB Current Patient Location: LAB Accession/Order Number: [id number] Exam Date: 03/07/2024 11:51 Report Date: 03/07/2024 12:41 At the request of: MARCELLA KO Procedure: CT angio neck EXAM: CT head/brain wo con, CT angio neck, CT angio head HISTORY: Syncopal episodes, Dizziness, Occlusion Basilar Artery, Stenosis Cerebral Artery COMPARISON: None. TECHNIQUE: Axial noncontrast CT imaging of the head was performed.Subsequent postcontrast CTA imaging of the head and neck was performed with coronaland sagittal reformats. Maximum intensity projection and 3-D reformats were performed on a separate workstation. NASCET criteria was utilized. This CT exam was performed using one or more of the following dose reductiontechniques: Automated exposure control, adjustment of the MA and/or kV according to patient size, or use of iterative reconstruction technique. FINDINGS: Calvarium/skull base: Prior right craniotomy. No evidence of acutefracture or destructive lesion. Partial opacification of the bilateral mastoid aircells. Thickening of the right tympanic membrane is noted. Paranasal sinuses: No air fluid levels. Brain: No acute intracranial hemorrhage. No acute large vascular territory infarct. Remote right greater than left MCA distribution encephalomalaciawith associated ex vacuo dilatation of the right lateral ventricle. 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 No mass lesion or mass effect. No hydrocephalus. Aortic arch: Imaged portion shows no evidence of aneurysm. No significant stenosis of the major origins of the major arch vessels. Right carotid system: Age indeterminant but potentially remote occlusionof the right internal carotid artery at its origin. No hemodynamicallysignificant stenosis is seen involving the common carotid artery or external carotid artery. Left carotid system: No evidence of significant (50% or greater) stenosisor occlusion. Vertebral arteries: Codominant. No evidence of significant (50% orgreater) stenosis or occlusion. Anterior circulation: No evidence of aneurysm. Nonopacification of theright petrous and cavernous internal carotid artery with reconstitution of the supraclinoid internal carotid artery via the [place] of [place]. 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 Vertebrobasilar system: No evidence of aneurysm, significant stenosis, or occlusion. Venous sinuses: Grossly patent. Additional findings: Visualized portion of the lungs are grossly clear. CT/CT angio neck IMPRESSION: 1. No acute large vascular territory infarct or acute intracranialhemorrhage. If there is clinical concern for recent ischemia recommend MRI brain for further evaluation. 2. Multifocal remote areas of encephalomalacia involving the right greater than left MCA distribution. 3. 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 Notification of Results Provider/Agent notified: YEISON Delgado Time/Date notified: 03/07/2024 10:40 AM MST Notifying Staff: Dr. Matthews Electronically authenticated by: ISABELLA MATTHEWS Date:03/07/2024 12:41 Dictated By: Isabella Matthews M.D. Signed By:03/07/24 1244 DD/ 1241 TD/TT: Flag Signaler: us Marcella LATHAM IMG CT PROCEDURES Final Result documented in this encounter Visit Diagnoses Not on filedocumented in this encounter Care Teams Laundry Assistant Relationship Specialty Start Date End Date Lee Mean DO [address] [place] [address] PCP - General Internal Medicine 09/01/23 Nany De Santiago, DO [address] [facility] [address] [place] [address] PCP - Pineda ONOFRE 09/19/24 Lee Mena DO [address] [facility] [place] [address] Referring Physician Internal Medicine 06/08/24 documented as of this encounter
--- OUTSIDE RECORDS SUMMARY | 2025-01-01 12:48 | XMS_ITS | Encounter Summary ---
Author Organization [facility] Address [address] [place] [address] Phone Care Team Providers Care Lens Inspector Name Role Phone Lee Mena DO Primary Care Provider Lee Mena DO Unavailable Herlinda Velazquez CLIENT DELIVERY SPECIALIST-STACKER DRIVER Unavailable Lee Mena DO Primary Care Provider Carmen Alvarez MD Unavailable Lee Mena DO Primary Care Provider [phone] Encounter Details Date Type Department Care Team (Late st Contact Info) Description 06/06/2021 Orders Only [facility] [address] [place] [address] Conversion, Onbase Social History Tobacco Use Types [...] Description 01/16/2025 9:30 AM EDT Office Visit [facility] [address] [facility] [address] [place] [address] Herlinda Velazquez, CLIENT DELIVERY SPECIALIST-STACKER DRIVER [address] [facility] [address], [address] [place] [address] 06/26/2025 1:20 PM EDT Appointment [facility] [address] [place] [facility] [place] [address] 06/26/2025 2:00 PM EDT Office Visit [facility] [address] [facility] [address] [place] [address] Carmen Alvarez MD [address] [facility] [address], [address] [place] [address] 07/18/2025 9:50 AM EDT Office Visit [facility] 703 [facility] 250 [place] [address] Jesus Posey DO [address] [facility] 2, [facility] 250 [place], [place] [address] Scheduled Orders Name Type Priority Associated Diagnoses Orde r Schedule OUTSIDE LAB SCAN Lab Ordered: 06/06/2021 documented as of this encounter Visit Diagnoses Not on filedocumented in this encounter Care Teams Lens Inspector Relationship Specialty Start Date End Date Lee Mena DO PCP - General 08/30/17 02/23/23 Lee Mena DO [facility] [place] [address] PCP - MMO Medicare Advantage PCP 07/20/22 12/19/22 Herlinda Velazquez, CLIENT DELIVERY SPECIALIST-STACKER DRIVER [address] [facility] 2, [address] [place] [address] PCP - MMO Medicare Advantage PCP 12/20/22 03/21/24 Lee Mena DO [address] [place] [address] 2, [address] [place] [address] PCP - General Internal Medicine 02/24/23 10/04/23 Lee Mena DO [address] [place] [address] PCP - General Internal Medicine 10/05/23 Carmen Alvarez MD [address] [facility] [address], [address] [place] [address] Bookkeeping Clerks Supervisor Electrophysiology 05/21/23 documented as of this encounter
--- OUTSIDE RECORDS SUMMARY | 2025-01-01 12:48 | XMS_ITS | Encounter Summary ---
Author Organization [facility] Address [address] [place] [address] Phone Care Team Providers Care Laundry Agent Name Role Phone Herlinda Velazquez Rowan ROGERS Unavailable Carmen Alvarez MD Unavailable Lee Mena DO Primary Care Provider [phone] Encounter Details Date Type Department Care Team (Late st Contact Info) Description 02/02/2024 Scanned Document [facility] [address] [place] [address] Scanning, Generic Provider Social History Tobacco Use [...] 01/16/2025 9:30 AM EDT Office Visit [address] [place] [address] Herlinda Velazquez APRN-MAHENDRA [address] [facility] 2, [facility] 250 [place] [address] 06/26/2025 1:[address] [facility] [address] [place] [facility] [place] [address] 06/26/2025 2:00 PM EDT Office Visit [facility] [address] [facility] 320 [place] [address] Carmen Alvarez MD [address] [facility] Office [facility], [facility] 305 [place] [address] 07/18/2025 9:50 AM EDT Office Visit [address] [place] [address] Jesus Posey DO 703 [facility] 2, [address] [address] documented as of this encounter Procedures Procedure Name Priority Date/Time Associated Diagnosis Comments OUTSIDE LAB SCAN 02/02/2024 documented in this encounter Results * OUTSIDE LAB SCAN (02/02/2024) Narrative 02/02/2024 Ordered by an unspecified provider. Generic Provider Scanning OUTSIDE SCAN Final Result documented in this encounter Visit Diagnoses Not on filedocumented in this encounter Additional Health Concerns Assessment Noted Time A fall risk assessment has been complete d for the patient 10/05/2023 1:30 PM EDT documented as of this encounter Care Teams Laundry Agent Relationship Specialty Start Date End Date Herlinda Velazquez APRN-MAHENDRA [address] [place] [address] 2, [facility] 250 [place] [address] PCP - MMO Medicare Advantage PCP 12/20/22 03/21/24 Lee Mena DO [address] [place] [address] PCP - General Internal Medicine 10/05/23 Carmen Alvarez MD [address] [facility] [address], [facility] 305 [place], [place] [id number] Photo Lab Technician Electrophysiology 05/21/23 documented as of this encounter
--- OUTSIDE RECORDS SUMMARY | 2025-01-01 12:48 | XMS_ITS | Encounter Summary ---
Author Organization [facility] Address [address] [place] [address] Phone Care Team Providers Care Magazine Worker Name Role Phone Herlinda Velazquez AIR CARRIER OPERATIONS INSPECTOR-FRENCH TRANSLATOR Unavailable [phone] Carmen Alvarez MD Unavailable Lee Mena DO Primary Care Provider Encounter Details Date Type Department Care Team (Late st Contact Info) Description 02/22/2024 Patient Risk Score [facility] Care Management [address] [facility] [address] [place] [address] Social History Tobacco Use Types [...] 01/16/2025 9:30 AM EDT Office Visit [facility] 7[address] [facility] [address] [place] [address] Herlinda Velazquez, AIR CARRIER OPERATIONS INSPECTOR-FRENCH TRANSLATOR [address] [place] [address] 06/26/2025 1:20 PM EDT Appointment [facility] [address] [facility] [place] [address] 06/26/2025 2:00 PM EDT Office Visit [facility] [address] [facility] 320 [place] [address] Carmen Alvarez MD [address] [facility] 305 [place] [address] 07/18/2025 9:50 AM EDT Office Visit [facility] 703 [facility] 250 [place] [address] Jesus Posey DO 7[address] [facility] 2, [address] [place] [address] documented as of this encounter Visit Diagnoses Not on filedocumented in this encounter Additional Health Concerns Assessment Noted Time A fall risk assessment has been complete d for the patient 10/05/2023 1:30 PM EDT documented as of this encounter Care Teams Magazine Worker Relationship Specialty Start Date End Date Herlinda Velazquez APRN-FRENCH TRANSLATOR 703 [facility] 2, [address] [place] [address] PCP - MMO Medicare Advantage PCP 12/20/22 03/21/24 Lee Mena DO [address] [place] [address] PCP - General Internal Medicine 10/05/23 Carmen Alvarez MD [address] [facility], [facility] 305 [place] [address] Regional Education Coordinator Electrophysiology 05/21/23 documented as of this encounter
--- OUTSIDE RECORDS SUMMARY | 2025-01-01 12:48 | XMS_ITS | Encounter Summary ---
Author Organization [facility] Address [address] [place] [address] Phone Care Team Providers Care Eyewear Consultant Name Role Phone Herlinda Velazquez Rowan ROGERS Unavailable Lee Mena DO Primary Care Provider Carmen Alvarez MD Unavailable Lee Mena DO Primary Care Provider [phone] Encounter Details Date Type Department Care Team (Late st Contact Info) Description 07/24/2023 Patient Risk Score [facility] [address] [place] [address] Social History Tobacco Use Types [...] suspected to have Coronavirus/COVID-19? No / Unsure 07/13/2023 10:08 AM EDT documented as of this encounter Plan of Treatment Upcoming Encounters Date Type Department Care Team (Late Contact Info) Description 01/16/2025 9:30 AM EDT Office Visit [facility] 703 [facility] 250 [place] [address] Herlinda Velazquez APRN-CNP 703 [facility] 2, [facility] 250 [place] [address] 06/26/2025 1:20 PM EDT Appointment [facility] [address] [place] [facility] [place] [address] 06/26/2025 2:00 PM EDT Office Visit [facility] [address] [facility] 320 [place] [address] Carmen Alvarez MD [address] [facility] Office [facility], [facility] 305 [place] [address] 07/18/2025 9:50 AM EDT Office Visit [address] [place] [address] Jesus Posey DO 703 [facility] 2, [facility] 250 [place] [address] documented as of this encounter Visit Diagnoses Not on filedocumented in this encounter Additional Health Concerns Assessment Noted Time A fall risk assessment has been complete d for the patient 07/13/2023 10:16 AM EDT documented as of this encounter Care Teams Eyewear Consultant Relationship Specialty Start Date End Date Herlinda Velazquez APRN-CNP [address] [place] [address] 2, [facility] 250 [place] [address] PCP - MMO Medicare Advantage PCP 12/20/22 03/21/24 Lee Mena DO 703 [facility] 2, [facility] 250 [place] [address] PCP - General Internal Medicine 02/24/23 10/04/23 Lee Mena DO [address] [place] [address] PCP - General Internal Medicine 10/05/23 Carmen Alvarez MD [address] [facility], [address] [place] [address] Copy Center Operator Electrophysiology 05/21/23 documented as of this encounter
--- OUTSIDE RECORDS SUMMARY | 2025-01-01 12:48 | XMS_ITS | Encounter Summary ---
Author Organization [facility] Address [address] [place] [address] Phone Care Team Providers Care Activated Sludge Attendant Name Role Phone Carmen Alvarez MD Unavailable Lee Mena DO Primary Care Provider [phone] Encounter Details Date Type Department Care Team (Late Contact Info) Description 06/23/2024 Patient Risk Score [facility] Care Management [address] [facility] [address] [place] [address] Social History Tobacco Use Types [...] suspected to have Coronavirus/COVID-19? No / Unsure 06/20/2024 2:08 PM EDT documented as of this encounter Plan of Treatment Upcoming Encounters Date Type Department Care Team (Late Contact Info) Description 01/16/2025 9:30 AM EDT Office Visit [facility] [address] [place] [address] Herlinda Velazquez, MATHEMATICS ACADEMIC CHAIR-[facility] 703 [facility] 2, [address] [place] [address] 06/26/2025 1:20 PM EDT Appointment [facility] [address] [facility] [place] [address] 06/26/2025 2:00 PM EDT Office Visit [facility] [address] [facility] 320 [place] [address] Carmen Alvarez MD [address] [facility], [facility] 305 [place] [address] 07/18/2025 9:50 AM EDT Office Visit [facility] 703 [facility] 250 [place] [address] Jesus Posey DO 703 [facility] 2, [facility] 250 [place] [address] documented as of this encounter Visit Diagnoses Not on filedocumented in this encounter Additional Health Concerns Assessment Noted Time A fall risk assessment has been complete d for the patient 10/05/2023 1:30 PM EDT documented as of this encounter Care Teams Activated Sludge Attendant Relationship Specialty Start Date End Date Lee Mena DO [address] [place] [address] PCP - General Internal Medicine 10/05/23 Carmen Alvarez MD [address] [facility], [facility] 305 [place] [address] Territory Development Manager Electrophysiology 05/21/23 documented as of this encounter
--- OUTSIDE RECORDS SUMMARY | 2025-01-01 12:48 | XMS_ITS | Encounter Summary ---
Author Organization [facility] Address [address] [place] [address] Phone Care Team Providers Care Manager Investigations Name Role Phone Carmen Alvarez MD Unavailable Lee Mena DO Primary Care Provider [phone] Encounter Details Date Type Department Care Team (Late st Contact Info) Description 06/28/2024 Scanned Document [facility] [address] [place] [address] Scanning, Generic Provider Social History Tobacco Use [...] Description 01/16/2025 9:30 AM EDT Office Visit [address] [address] Herlinda Velazquez, SOLAR SYSTEM INSTALLER-LICENSED PRACTICAL NURSE INSTRUCTOR 703 [facility] 2, [address] [place] [address] 06/26/2025 1:20 PM EDT Appointment [facility] [address] [place] [facility] [place] [address] 06/26/2025 2:00 PM EDT Office [facility] 125 E [facility] 320 [place] [address] Carmen Alvarez MD [address] [facility], [address] [place] [address] 07/18/2025 9:50 AM EDT Office Visit [facility] 703 [facility] 250 [place] [address] Jesus Posey DO 703 [facility] 2, [address] [place] [address] documented as of this encounter Procedures Procedure Name Priority Date/Time Associated Diagnosis Comments OUTSIDE LAB SCAN 06/28/2024 documented in this encounter Results * OUTSIDE LAB SCAN (06/28/2024) Narrative 06/28/2024 Ordered by an unspecified provider. Generic Provider Scanning OUTSIDE SCAN Final Result documented in this encounter Visit Diagnoses Not on filedocumented in this encounter Additional Health Concerns Assessment Noted Time A fall risk assessment has been complete d for the patient 10/05/2023 1:30 PM EDT documented as of this encounter Care Teams Manager Investigations Relationship Specialty Start Date End Date Lee Mena DO [address] [place] [address] PCP - General Internal Medicine 10/05/23 Carmen Alvarez MD [address] [facility], [address] [place] [address] Profiler Operator Electrophysiology 05/21/23 documented as of this encounter
--- OUTSIDE RECORDS SUMMARY | 2025-01-01 12:48 | XMS_ITS | Encounter Summary ---
Author Organization [facility] Address [address] [place] [address] Phone Care Team Providers Care Bench Mechanic Name Role Phone Lee Mena DO Primary Care Provider [phone] Lee Mena DO Unavailable Herlinda Velazquez MOTTLER MACHINE FEEDER-SUPERVISOR COLD ROLLING Unavailable Lee Mena DO Primary Care Provider Carmen Alvarez MD Unavailable Lee Mena DO Primary Care Provider [phone] Encounter Details Date Type Department Care Team (Late st Contact Info) Description 08/05/2021 Orders Only [facility] [address] [place] [address] Conversion, Onbase Social History Tobacco Use Types [...] Description 01/16/2025 9:30 AM EDT Office Visit [facility] [address] [facility] [address] [place] [address] Herlinda Velazquez, MOTTLER MACHINE FEEDER-SUPERVISOR COLD ROLLING [address] [facility] [address], [address] [place] [address] 06/26/2025 1:20 PM EDT Appointment [facility] [address] [place] [address] 06/26/2025 2:00 PM EDT Office Visit [facility] [address] [facility] 320 [place] [address] Carmen Alvarez MD [address] [facility] [address], [address] [place] [address] 07/18/2025 9:50 AM EDT Office Visit [facility] 703 [facility] 250 [place] [address] Jesus Posey DO 703 [facility] 2, [facility] 250 [place], [place] [address] Scheduled Orders Name Type Priority Associated Diagnoses Orde r Schedule OUTSIDE LAB SCAN Lab Ordered: 08/05/2021 documented as of this encounter Visit Diagnoses Not on filedocumented in this encounter Care Teams Bench Mechanic Relationship Specialty Start Date End Date Lee Mena DO PCP - General 08/30/17 02/23/23 Lee Mena DO [facility] [place] [address] PCP - MMO Medicare Advantage PCP 07/20/22 12/19/22 Herlinda Velazquez, MOTTLER MACHINE FEEDER-SUPERVISOR COLD ROLLING [address] [facility] 2, [address] [place] [address] PCP - MMO Medicare Advantage PCP 12/20/22 03/21/24 Lee Mena DO [address] [place] [address] 2, [address] [place] [address] PCP - General Internal Medicine 02/24/23 10/04/23 Lee Mena DO [address] [place] [address] PCP - General Internal Medicine 10/05/23 Carmen Alvarez MD [address] [facility] [address], [address] [place] [address] Biology Faculty Member Electrophysiology 05/21/23 documented as of this encounter
--- OUTSIDE RECORDS SUMMARY | 2025-01-01 12:48 | XMS_ITS | Encounter Summary ---
Author Organization [facility] Address [address] [place] [address] Phone Care Team Providers Care Respiratory Physician Name Role Phone Herlinda Velazquez Rowan ROGERS Unavailable Carmen Alvarez MD Unavailable Lee Mena DO Primary Care Provider [phone] Encounter Details Date Type Department Care Team (Late st Contact Info) Description 12/22/2023 Scanned Document [facility] [address] [place] [address] Scanning, Generic Provider Social History Tobacco Use [...] Description 01/16/2025 9:30 AM EDT Office Visit [address] 250 [place] [address] Herlinda Velazquez APRN-MAHENDRA 703 [facility] 2, [facility] 250 [place] [address] 06/26/2025 1:20 PM EDT Appointment [facility] [address] [place] [facility] [place] [address] 06/26/2025 2:00 PM EDT Office Visit [facility] [address] [facility] 320 [place] [address] Carmen Alvarez MD [address] [facility] Office [facility], [facility] 305 [place] [address] 07/18/2025 9:50 AM EDT Office Visit [address] 250 [place] [address] Jesus Posey DO 703 [facility] 2, [address] [address] documented as of this encounter Procedures Procedure Name Priority Date/Time Associated Diagnosis Comments OUTSIDE LAB SCAN 12/22/2023 documented in this encounter Results * OUTSIDE LAB SCAN (12/22/2023) Narrative 12/22/2023 Ordered by an unspecified provider. Generic Provider Scanning OUTSIDE SCAN Final Result documented in this encounter Visit Diagnoses Not on filedocumented in this encounter Additional Health Concerns Assessment Noted Time A fall risk assessment has been complete d for the patient 10/05/2023 1:30 PM EDT documented as of this encounter Care Teams Respiratory Physician Relationship Specialty Start Date End Date Herlinda Velazquez APRN-CNP [address] [place] [address] 2, [facility] 250 [place] [address] PCP - MMO Medicare Advantage PCP 12/20/22 03/21/24 Lee Mena DO [address] [place] [address] PCP - General Internal Medicine 10/05/23 Carmen Alvarez MD [address] [facility] [address], [facility] 305 [place], [place] [id number] Food Analyst Electrophysiology 05/21/23 documented as of this encounter
--- OUTSIDE RECORDS SUMMARY | 2025-01-01 12:48 | XMS_ITS | Encounter Summary ---
Author Organization [facility] Address [address] [place] [address] Phone Care Team Providers Care Clinical Staff Rn Name Role Phone VelazquezHerlinda Rowan ROGERS Unavailable Lee Mena DO Primary Care Provider Carmen Alvarez MD Unavailable Lee Mena DO Primary Care Provider [phone] Encounter Details Date Type Department Care Team (Late st Contact Info) Description 08/02/2023 Scanned Document [facility] [address] [place] [address] Scanning, Generic Provider Social History Tobacco Use [...] 9:30 AM EDT Office Visit [facility] 703 [facility] 250 [place] [address] Herlinda Velazquez APRN-CNP 703 [facility] 2, [address] [place] [address] 06/26/2025 1:20 PM EDT Appointment [facility] [address] [place] [facility] [place] [address] 06/26/2025 2:00 PM EDT Office Visit [facility] [address] [facility] 320 [place] [address] Carmen Alvarez MD 125 [address] [facility] Office [facility], [facility] 305 [place] [address] 07/18/2025 9:50 AM EDT Office Visit [address] 250 [place] [address] Jesus Posey DO 703 [facility] 2, [facility] 250 [place] [address] documented as of this encounter Visit Diagnoses Not on filedocumented in this encounter Additional Health Concerns Assessment Noted Time A fall risk assessment has been complete d for the patient 07/13/2023 10:16 AM EDT documented as of this encounter Care Teams Clinical Staff Rn Relationship Specialty Start Date End Date Herlinda Velazquez APRN-CNP [address] [place] [address] 2, [address] [place] [address] PCP - MMO Medicare Advantage PCP 12/20/22 03/21/24 Lee Mena DO [address] [place] [address] 2, [address] [place] [address] PCP - General Internal Medicine 02/24/23 10/04/23 Lee Mena DO [address] [place] [address] PCP - General Internal Medicine 10/05/23 Carmen Alvarez MD [address] [facility], [address] [place] [address] Business Analysis Consultant Electrophysiology 05/21/23 documented as of this encounter
--- OUTSIDE RECORDS SUMMARY | 2025-01-01 12:48 | XMS_ITS | Encounter Summary ---
Author Organization [facility] Address [address] [place] [address] Phone Care Team Providers Care Crayon Sorting Machine Feeder Name Role Phone Herlinda Velazquez SANDBLAST CARVER-CORPORATE COMPLIANCE MANAGER Unavailable [phone] Carmen Alvarez MD Unavailable Lee Mena DO Primary Care Provider Encounter Details Date Type Department Care Team (Late st Contact Info) Description 11/24/2023 Patient Risk Score [facility] [address] [facility] [address] [place] [address] Social History Tobacco Use Types [...] Description 01/16/2025 9:30 AM EDT Office Visit [facility] [address] [facility] [address] [place] [address] Herlinda Velazquez, SANDBLAST CARVER-CORPORATE COMPLIANCE MANAGER [address], [address] [place] [address] 06/26/2025 1:20 PM EDT Appointment [facility] [address] [place] [address] 06/26/2025 2:00 PM EDT Office Visit [facility] [address] [facility] 320 [place] [address] Carmen Alvarez MD [address] [facility], [facility] 305 [place] [address] 07/18/2025 9:50 AM EDT Office Visit [facility] 703 [facility] 250 [place] [address] Jesus Posey DO 703 [facility] 2, [address] [place] [address] documented as of this encounter Visit Diagnoses Not on filedocumented in this encounter Additional Health Concerns Assessment Noted Time A fall risk assessment has been complete d for the patient 10/05/2023 1:30 PM EDT documented as of this encounter Care Teams Crayon Sorting Machine Feeder Relationship Specialty Start Date End Date Herlinda Velazquez APRN-CORPORATE COMPLIANCE MANAGER 703 [facility] 2, [address] [place] [address] PCP - MMO Medicare Advantage PCP 12/20/22 03/21/24 Lee Mena DO [address] [place] [address] PCP - General Internal Medicine 10/05/23 Carmen Alvarez MD [address] [facility], [facility] 305 [place] [address] Inventory Worker Electrophysiology 05/21/23 documented as of this encounter
--- OUTSIDE RECORDS SUMMARY | 2025-01-01 12:48 | XMS_ITS | Encounter Summary ---
Author Organization [facility] Address [address] [place] [address] Care Team Providers Care Petroleum Inspector Name Role Phone Lee Mena DO Primary Care Provider [phone] Lee Mena DO Unavailable [phone] Nany De Santiago DO Unavailable [phone] Encounter Details Date Type Department Care Team (Late Contact Info) Description 03/07/2024 Clinisync Result Encounter [facility] External Department Unsolicited Marcella Ko PA [address] [place] [address] Social History Tobacco Use Types Packs/Day Years [...] [facility] [address] [facility] [address] [place] [address] Nany De Santiago DO [address] [facility] [address] [place] [address] documented as of this encounter Procedures Procedure Name Priority Date/Time Associated Diagnosis Comments CT HEAD/BRAIN WO 03/07/2024 12:4 1 PM EST documented in this encounter Results * CT HEAD/BRAIN WO (03/07/2024 12:41 PM EST) Anatomical Region Laterality Modality Radiographic Dinora ging 03/07/2024 12:4 1 PM EST Narrative 03/07/2024 12:44 [place] [address] CT Scan Report Signed Patient: KASHIF ROD MR#: [id number] : 1955 Acct:[id number] Age/Sex: 69 / M ADM Date: 03/07/24 Loc: LAB Attending Dr: Marcella LATHAM Ordering Physician: Marcella Ko Date of Service: 03/07/24 Procedure(s): CT head/brain wo con Accession Number(s): [id number] cc: Lee Mena D.O. [place] [id number] Patient Name: KASHIF ROD MRN: [id number] date: 1955 Sex: M Assigned Patient Location: LAB Current Patient Location: LAB Accession/Order Number: [id number] Exam Date: 03/07/2024 11:51 Report Date: 03/07/2024 12:41 At the request of: MARCELLA KO Procedure: CT head/brain wo con EXAM: CT head/brain wo con, CT angio [...] the supraclinoid internal carotid artery via the port gamble of [place]. 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 Vertebrobasilar system: No evidence of aneurysm, significant stenosis, or occlusion. Venous sinuses: Grossly patent. Additional findings: Visualized portion of the lungs are grossly clear. CT/CT head/brain wo con IMPRESSION: 1. No acute large vascular territory [...] the supraclinoid internal carotid artery via the port gamble of [place]. Notification of Results Provider/Agent notified: YEISON Delgado Time/Date notified: 03/07/2024 10:40 AM MST Notifying Staff: Dr. Matthews Electronically authenticated by: ISABELLA MATTHEWS Date: 03/07/2024 12:41 Dictated By: Isabella Matthews M.D. Signed By: 03/07/24 1244 DD/ 1241 TD/TT: Thread Cutter Tender: Procedure Note Radiology, Radiologist, MD - 03/07/[address] [address] [address] Scan Report Signed Patient: KASHIF ROD GMR#: [id number] : 1955cct:[id number] Age/Sex: 69 / MADM Date: 03/07/24 Loc: LAB Attending Dr: Marcella LATHAM Ordering Physician: Marcella Ko Date of Service: 03/07/24 Procedure(s): CT head/brain wo con Accession Number(s): [id number] cc: Lee Mena D.O. The [place] [id number] Patient Name: KASHIF ROD MRN: [id number] date: 1955 Sex: M Assigned Patient Location: LAB Current Patient Location: LAB Accession/Order Number: [id number] Exam Date: 03/07/2024 11:51 Report Date: 03/07/2024 12:41 At the request of: MARCELLA KO Procedure: CT head/brain wo con EXAM: CT head/brain wo con, CT angio [...] the supraclinoid internal carotid artery via the port gamble of [place]. 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 Vertebrobasilar system: No evidence of aneurysm, significant stenosis, or occlusion. Venous sinuses: Grossly patent. Additional findings: Visualized portion of the lungs are grossly clear. CT/CT head/brain wo con IMPRESSION: 1. No acute large vascular territory [...] of the supraclinoidinternal carotid artery via the port gamble of Smith. Notification of Results Provider/Agent notified: YEISON Delgado Time/Date notified: 03/07/2024 10:40 AM MST Notifying Staff: Dr. Matthews Electronically authenticated by: ISABELLA MATTHEWS Date:03/07/2024 12:41 Dictated By: Isabella Matthews M.D. Signed By:03/07/24 1244 DD/ 1241 TD/TT: Thread Cutter Tender: us Marcella LATHAM IMG XR PROCEDURES Final Result documented in this encounter Visit Diagnoses Not on filedocumented in this encounter Care Teams Petroleum Inspector Relationship Specialty Start Date End Date Lee Mena DO [address] [place] [address] PCP - General Internal Medicine 09/01/23 Nany De Santiago, DO [address] [facility] 230 [place] [address] PCP - Pineda ONOFRE 09/19/24 Lee Mena DO [address] [facility] [place] [address] Referring Physician Internal Medicine 06/08/24 documented as of this encounter
--- OUTSIDE RECORDS SUMMARY | 2025-01-01 12:48 | XMS_ITS | Encounter Summary ---
Author Organization [facility] Address [address] [place] [address] Phone Care Team Providers Care Environmental Advisor Name Role Phone Carmen Alvarez MD Unavailable Lee Mena DO Primary Care Provider [phone] Encounter Details Date Type Department Care Team (Late st Contact Info) Description 04/05/2024 Scanned Document [facility] [address] [place] [address] Scanning, Generic Provider Social History Tobacco Use [...] Description 01/16/2025 9:30 AM EDT Office Visit [facility] [address] [facility] [address] [place] [address] Herlinda Velazquez, WATER PLANT PUMP OPERATOR-INTEGRATED CAMPAIGN MANAGER [address] [facility] [address], [address] [place] [address] 06/26/2025 1:20 PM EDT Appointment [facility] [address] [place] [address] 06/26/2025 2:00 PM EDT Office Visit [facility] [address] [place] [address] Carmen Alvarez MD [address] [facility], [address] [place] [address] 07/18/2025 9:50 AM EDT Office Visit [facility] [address] [facility] [address] [place] [address] Jesus Posey DO [address] [facility] 2, [address] [place] [address] documented as of this encounter Procedures Procedure Name Priority Date/Time Associated Diagnosis Comments OUTSIDE LAB SCAN 04/05/2024 documented in this encounter Results * OUTSIDE LAB SCAN (04/05/2024) Narrative 04/05/2024 Ordered by an unspecified provider. Generic Provider Scanning OUTSIDE SCAN Final Result documented in this encounter Visit Diagnoses Not on filedocumented in this encounter Additional Health Concerns Assessment Noted Time A fall risk assessment has been complete d for the patient 10/05/2023 1:30 PM EDT documented as of this encounter Care Teams Environmental Advisor Relationship Specialty Start Date End Date Lee Mena DO [address] [place] [address] PCP - General Internal Medicine 10/05/23 Carmen Alvarez MD [address] [facility], [address] [place] [address] Slot Floor Supervisor Electrophysiology 05/21/23 documented as of this encounter
--- OUTSIDE RECORDS SUMMARY | 2025-01-01 12:48 | XMS_ITS | Encounter Summary ---
Author Organization [facility] Address [address] [place] [address] Phone Care Team Providers Care Form Grader Operator Name Role Phone Carmen Alvarez MD Unavailable Lee Mena DO Primary Care Provider [phone] Encounter Details Date Type Department Care Team (Late st Contact Info) Description 05/23/2024 Patient Risk Score [facility] [place] [address] [facility] [address] [place] [address] Social History Tobacco Use Types [...] Description 01/16/2025 9:30 AM EDT Office Visit [place] [address] [facility] [address] [place] [address] Herlinda Velazquez, PURCHASER-HAND BINDER CUTTER [address] [facility] [address], [address] [place] [address] 06/26/2025 1:20 PM EDT Appointment [facility] [address] [place] [place] [address] 06/26/2025 2:00 PM EDT Office Visit [facility] [address] [facility] 320 [place] [address] Carmen Alvarez MD [address] [facility] Office [facility], [address] [place] [address] 07/18/2025 9:50 AM EDT Office Visit [facility] 703 [facility] 250 [place] [address] Jesus Posey DO 703 [facility] 2, [address] [place] [address] documented as of this encounter Visit Diagnoses Not on filedocumented in this encounter Additional Health Concerns Assessment Noted Time A fall risk assessment has been complete d for the patient 10/05/2023 1:30 PM EDT documented as of this encounter Care Teams Form Grader Operator Relationship Specialty Start Date End Date Lee Mena DO [address] [place] [address] PCP - General Internal Medicine 10/05/23 Carmen Alvarez MD [address] [facility], [facility] 305 [place] [address] Porter Head Electrophysiology 05/21/23 documented as of this encounter
--- OUTSIDE RECORDS SUMMARY | 2025-01-01 12:48 | XMS_ITS | Encounter Summary ---
Author Organization [facility] Address [address] [place] [address] Phone Care Team Providers Care Pulley Worker Name Role Phone Carmen Alvarez MD Unavailable Lee Mena DO Primary Care Provider [phone] Encounter Details Date Type Department Care Team (Late st Contact Info) Description 03/25/2024 Patient Risk Score [facility] Care Management [address] [facility] [address] [place] [address] Social History Tobacco Use Types [...] Description 01/16/2025 9:30 AM EDT Office Visit [place] [address] [facility] [address] [place] [address] Herlinda Velazquez, GOAT FARMER-SILK BRUSHER [address] [facility] [address], [address] [place] [address] 06/26/2025 1:20 PM EDT Appointment [facility] [address] [place] [facility] [place] [address] 06/26/2025 2:00 PM EDT Office Visit [facility] [address] [facility] 320 [place] [address] Carmen Alvarez MD 125 [address] [facility] Office [facility], [address] [place] [address] 07/18/2025 9:50 AM EDT Office Visit [facility] 703 [facility] 250 [place] [address] Jesus Posey DO 703 [facility] 2, [address] [place] [address] documented as of this encounter Visit Diagnoses Not on filedocumented in this encounter Additional Health Concerns Assessment Noted Time A fall risk assessment has been complete d for the patient 10/05/2023 1:30 PM EDT documented as of this encounter Care Teams Pulley Worker Relationship Specialty Start Date End Date Lee Mena DO [address] [place] [address] PCP - General Internal Medicine 10/05/23 Carmen Alvarez MD [address] [facility], [facility] 305 [place] [address] Applications Analyst Electrophysiology 05/21/23 documented as of this encounter
--- OUTSIDE RECORDS SUMMARY | 2025-01-01 12:48 | XMS_ITS | Encounter Summary ---
Author Organization [facility] Address [address] [place] [address] Care Team Providers Care Medical Device Sales Consultant Name Role Phone Pcp, No Primary Care Provider Unavailabl e Source Comments In the event this information is protected by the Federal Confidentiality of Alcohol and Drug AbusePatient Records regulations: The Federal rules restrict any use of the information to criminally investigate or prosecute any alcohol or drug abuse patient.[facility] Encounter Details Date Type Department Care Team (Late st Contact Info) Description 2022 [place] [address] Provider, [facility] Medicare Coverage of Physical Exams Social History Tobacco Use Types Packs/Day Years [...] on filedocumented in this encounter Care Teams Medical Device Sales Consultant Relationship Specialty Start Date End Date Pcp, No PCP - General 10/04/21 04/21/22 documented as of this encounter
--- OUTSIDE RECORDS SUMMARY | 2025-01-01 12:48 | XMS_ITS | Encounter Summary ---
Author Organization [facility] Address [address] [place] [address] Phone Care Team Providers Care Microarray Analyst Name Role Phone Herlinda Velazquez Rowan ROGERS Unavailable Carmen Alvarez MD Unavailable Lee Mena DO Primary Care Provider [phone] Encounter Details Date Type Department Care Team (Late st Contact Info) Description 10/08/2023 Scanned Document [facility] [address] Virtual [place] [address] Scanning, Generic Provider Social History Tobacco Use [...] Description 01/16/2025 9:30 AM EDT Office Visit [address] [place] [address] Herlinda Velazquez APRN-LOAN OFFICER ASSISTANT 703 [facility] 2, [address] [address] 06/26/2025 1:20 PM EDT Appointment [facility] [address] [place] [address] 06/26/2025 2:00 PM EDT Office Visit [facility] [address] [facility] 320 [place] [address] Carmen Alvarez MD [address] [facility], [facility] 305 [place] [address] 07/18/2025 9:50 AM EDT Office Visit [address] [address] Jesus Posey DO [address] [place] [address], [address] [address] documented as of this encounter Visit Diagnoses Not on filedocumented in this encounter Additional Health Concerns Assessment Noted Time A fall risk assessment has been complete d for the patient 10/05/2023 1:30 PM EDT documented as of this encounter Care Teams Microarray Analyst Relationship Specialty Start Date End Date Herlinda Velazquez APRN-LOAN OFFICER ASSISTANT [address] [place] [address], [address] [address] PCP - MMO Medicare Advantage PCP 12/20/22 03/21/24 Lee Mena DO [facility]6 [place] [address] PCP - General Internal Medicine 10/05/23 Carmen Alvarez MD [address] [facility], [facility] 305 [place] [address] Automatic Door Mechanic Electrophysiology 05/21/23 documented as of this encounter
--- OUTSIDE RECORDS SUMMARY | 2025-01-01 12:48 | XMS_ITS | Encounter Summary ---
Author Organization [facility] Address [address] [place] [address] Phone Care Team Providers Care Ecosystem Ecology Professor Name Role Phone Herlinda Velazquez Rowan ROGERS Unavailable Lee Mena DO Primary Care Provider Carmen Alvarez MD Unavailable Lee Mena DO Primary Care Provider [phone] Encounter Details Date Type Department Care Team (Late st Contact Info) Description 09/23/2023 Patient Risk Score ACO Care Management [address] [place] [address] Social History Tobacco Use Types [...] suspected to have Coronavirus/COVID-19? No / Unsure 09/13/2023 8:21 AM EDT documented as of this encounter Plan of Treatment Upcoming Encounters Date Type Department Care Team (Late Contact Info) Description 01/16/2025 9:30 AM EDT Office Visit [facility] [address] [facility] 250 [place] [address] Herlinda Velazquez APRN-CNP 703 [facility] 2, [facility] 250 [place] [address] 06/26/2025 1:[address] [facility] ([place], [place]) [address] [place] [facility] [place] [address] 06/26/2025 2:00 PM EDT Office Visit [facility] [address] [facility] [address] [place] [address] Carmen Alvarez MD [address] [facility] Office [facility], [facility] [address] [place] [address] 07/18/2025 9:50 AM EDT Office Visit [address] [place] [address] Jesus Posey DO 703 [facility] 2, [facility] 250 [place] [address] documented as of this encounter Visit Diagnoses Not on filedocumented in this encounter Additional Health Concerns Assessment Noted Time A fall risk assessment has been complete d for the patient 09/13/2023 8:31 AM EDT documented as of this encounter Care Teams Ecosystem Ecology Professor Relationship Specialty Start Date End Date Herlinda Velazquez APRN-CNP [address] [place] [address] 2, [facility] 250 [place] [address] PCP - MMO Medicare Advantage PCP 12/20/22 03/21/24 Lee Mena DO [address] [place] [address] 2, [facility] 250 [place] [address] PCP - General Internal Medicine 02/24/23 10/04/23 Lee Mena DO [address] [place] [place] [address] PCP - General Internal Medicine 10/05/23 Carmen Alvarez MD [address] [facility], [address] [place] [address] Consumer Credit Counselor Electrophysiology 05/21/23 documented as of this encounter
--- OUTSIDE RECORDS SUMMARY | 2025-01-01 12:48 | XMS_ITS | Encounter Summary ---
Author Organization [facility] Address [address] [place] [address] Phone Care Team Providers Care Aviation Safety Officer Name Role Phone Lee Mena DO Primary Care Provider [phone] Lee Mena DO Unavailable Herlinda Velazquez COVER MAKER-GINNER Unavailable Lee Mena DO Primary Care Provider [phone] Carmen Alvarez MD Unavailable Lee Mena DO Primary Care Provider [phone] Encounter Details Date Type Department Care Team (Late st Contact Info) Description 06/16/2021 Orders Only [facility] LE[facility]Y [address] [place] [address] Conversion, Onbase Social History Tobacco Use Types [...] Description 01/16/2025 9:30 AM EDT Office Visit [facility] 703 [facility] [address] [place] [address] Herlinda Velazquez, COVER MAKER-GINNER [address] [facility] [address], [address] [place] [address] 06/26/2025 1:20 PM EDT Appointment [facility] [address] [facility] [place] [address] 06/26/2025 2:00 PM EDT Office Visit [facility] [address] [facility] [address] [place] [address] Carmen Alvarez MD 125 [address] [facility] Office [facility], [facility] 305 [place] [address] 07/18/2025 9:50 AM EDT Office Visit [facility] 703 [facility] 250 [place] [address] Jesus Posey DO 703 [facility] 2, [facility] 250 [place], [place] [address] Scheduled Orders Name Type Priority Associated Diagnoses Orde r Schedule OUTSIDE LAB SCAN Lab Ordered: 06/16/2021 OUTSIDE LAB SCAN Lab Ordered: 06/16/2021 OUTSIDE LAB SCAN Lab Ordered: 06/16/2021 documented as of this encounter Visit Diagnoses Not on filedocumented in this encounter Care Teams Aviation Safety Officer Relationship Specialty Start Date End Date Lee Mena DO PCP - General 08/30/17 02/23/23 Lee [facility] [place] [address] PCP - MMO Medicare Advantage PCP 07/20/22 12/19/22 Herlinda Velazquez APRN-GINNER 703 [facility] 2, [address] [place] [address] PCP - MMO Medicare Advantage PCP 12/20/22 03/21/24 Lee Mena DO 703 [facility] 2, [address] [place] [address] PCP - General Internal Medicine 02/24/23 10/04/23 Lee Mena DO [address] [place] [address] PCP - General Internal Medicine 10/05/23 Carmen Alvarez MD [address] [facility] [address] [place], [place] [address] Flight Crew Scheduler Electrophysiology 05/21/23 documented as of this encounter
--- OUTSIDE RECORDS SUMMARY | 2025-01-01 12:48 | XMS_ITS | Encounter Summary ---
Author Organization [facility] Address [address] [place] [address] Phone Care Team Providers Care Caustic Plant Worker Name Role Phone Lee Mena DO Primary Care Provider Lee Mena DO Unavailable [phone] Herlinda Velazquez MEDICAL CODING SPECIALIST-DOOR TENDER Unavailable Lee Mnea DO Primary Care Provider [phone] Carmen Alvarez MD Unavailable Lee Mena DO Primary Care Provider [phone] Encounter Details Date Type Department Care Team (Late st Contact Info) Description 02/05/2022 Orders Only [facility] LEGACY [address] [place] [address] Conversion, Onbase Social History Tobacco Use Types [...] EDT Office Visit [facility] 7[address] [facility] [address] [place] [address] Herlinda Velazquez, MEDICAL CODING SPECIALIST-DOOR TENDER [address] [facility] [address], [address] [place] [address] 06/26/2025 1:[address] [facility] [address] [place] [facility] [place] [address] 06/26/2025 2:00 PM EDT Office Visit [facility] [address] [facility] 320 [place] [address] Carmen Alvarez MD [address] [facility] [address], [address] [place] [address] 07/18/2025 9:50 AM EDT Office Visit [facility] 7[address] [facility] 250 [place] [address] Jesus Posey DO 703 [facility] 2, [facility] [address] [place], [place] [address] Scheduled Orders Name Type Priority Associated Diagnoses Orde r Schedule OUTSIDE LAB SCAN Lab Ordered: 02/05/2022 documented as of this encounter Visit Diagnoses Not on filedocumented in this encounter Care Teams Caustic Plant Worker Relationship Specialty Start Date End Date Lee Mena DO PCP - General 08/30/17 02/23/23 Lee Mena DO [facility] [place] [address] PCP - MMO Medicare Advantage PCP 07/20/22 12/19/22 Herlinda Velazquez, MEDICAL CODING SPECIALIST-DOOR TENDER 703 [facility] 2, [address] [place] [address] PCP - MMO Medicare Advantage PCP 12/20/22 03/21/24 Lee Mena DO [address] [place] [address] 2, [address] [place] [address] PCP - General Internal Medicine 02/24/23 10/04/23 Lee Mena DO [address] [place] [address] PCP - General Internal Medicine 10/05/23 Carmen Alvarez MD [address] [facility] [address], [address] [place] [address] Nurse Practitioner Manager Electrophysiology 05/21/23 documented as of this encounter
--- OUTSIDE RECORDS SUMMARY | 2025-01-01 12:48 | XMS_ITS | Encounter Summary ---
Author Organization [facility] Address [address] [place] [address] Phone Care Team Providers Care Cementer Machine Applicator Name Role Phone Lee Mena DO Primary Care Provider [phone] Lee Mena DO Unavailable Herlinda Velazquez REVIEW MANAGER-ELECTRICAL POWER ENGINEER Unavailable Lee Mena DO Primary Care Provider Carmen Alvarez MD Unavailable Lee Mena DO Primary Care Provider [phone] Encounter Details Date Type Department Care Team (Late st Contact Info) Description 03/05/2022 Orders Only [facility] LEGACY [address] [place] [address] Conversion, Onbase Social History Tobacco Use Types [...] Description 01/16/2025 9:30 AM EDT Office Visit [facility] 703 [facility] [address] [place] [address] Herlinda Velazquez, REVIEW MANAGER-ELECTRICAL POWER ENGINEER [address], [address] [place] [address] 06/26/2025 1:20 PM EDT Appointment [facility] [address] [place] [facility] [place] [address] 06/26/2025 2:00 PM EDT Office Visit [facility] [address] [facility] 320 [place] [address] Carmen Alvarez MD [address] [facility] Office [address], [address] [place] [address] 07/18/2025 9:50 AM EDT Office Visit [facility] 7[address] [facility] [address] [place] [address] Jesus Posey DO 703 [facility] 2, [facility] 250 [place] [address] Scheduled Orders Name Type Priority Associated Diagnoses Orde r Schedule OUTSIDE LAB SCAN Lab Ordered: 03/05/2022 documented as of this encounter Visit Diagnoses Not on filedocumented in this encounter Care Teams Cementer Machine Applicator Relationship Specialty Start Date End Date Lee Mena DO PCP - General 08/30/17 02/23/23 Lee Mena DO [facility] [place] [address] PCP - MMO Medicare Advantage PCP 07/20/22 12/19/22 Herlinda Velazquez, REVIEW MANAGER-ELECTRICAL POWER ENGINEER 703 [facility] 2, [address] [place] [address] PCP - MMO Medicare Advantage PCP 12/20/22 03/21/24 Lee Mena DO [address] [place] [address] 2, [address] [place] [address] PCP - General Internal Medicine 02/24/23 10/04/23 Lee Mena DO [address] [place] [place] [address] PCP - General Internal Medicine 10/05/23 Carmen Alvarez MD [address] [facility] [address], [address] [place] [address] Building Repair Maintenance Supervisor Electrophysiology 05/21/23 documented as of this encounter
--- OUTSIDE RECORDS SUMMARY | 2025-01-01 12:48 | XMS_ITS | Clinical Summary ---
Author Organization [facility] Address [address] [place] [address] Care Team Providers Care Plant Operator Name Role Phone Unavailable Primary Care Provider Unavailabl e Source Comments The following information is NOT included in Care Everywhere downloads:Psychiatric notes, ECG results, Cardiac Rehab notes, Pulmonary Function notes, data from [employer] (includes but not limited toPregnancy data,audiograms, eye exams, pre-surgical evaluation notes, well-child exam data).[facility] Allergies Active Allergy Reactions Criticality Noted Date Comments No Known Drug Allergies 08/16/2009 Medications aspirin 325 MG tablet Take 1 Tab by mouth daily. 30 3 08/18/2009 Active clopidogrel (PLAVIX) 75 MG tablet Take 1 Tab by mouth daily. 30 3 08/18/2009 Active niacin (NIASPAN) 500 MG CR tablet Take 1 Tab by mouth at bedtime. 30 3 08/18/2009 Active rosuvastatin (CRESTOR) 20 MG tablet Take 1 Tab by mouth daily. 30 3 08/18/2009 Active metoprolol (LOPRESSOR) 25 MG tablet Take 1 Tab by mouth 2 times daily. 60 3 08/18/2009 Active lisinopril (ZESTRIL) 5 MG tablet Take 1 Tab by mouth daily. 30 3 08/18/2009 Active Active Problems Problem Noted Date Diagnosed Date Acute myocardial infarction of inferior wall, initial episode of care 08/16/2009 Overview (06/29/2018): Acute [place] inferior first episode care CAD (coronary artery disease), [place] coronary a rtery 08/16/2009 Mixed hyperlipidemia 08/16/2009 Tobacco use disorder 08/16/2009 H/O: CVA 08/16/2009 Family History Medical History Relation Name Comments Coronary Artery Disease Father Relation Name Status Comments Father Social History Tobacco Use Types Packs/Day Years Used Date Smoking Tobacco: Every Day Cigarettes 1 25 Alcohol Use Standard Drinks/Week Comments Yes 0 (1 standard drink = 0.6 oz pur e alcohol) Occasionally Substance Use Types Use/Week Comments No Sex and Gender Information Value Date Recorded Sex Assigned at Not on file Legal Sex Male 1:03 PM EST Gender Identity Not on file Sexual Orientation Not on file Last Filed Vital Signs Vital Sign Reading Time Taken Comments Blood Pressure 107/79 08/18/2009 11:51 AM EDT Pulse 61 08/18/2009 11:51 AM EDT Temperature 36.2 C (97.2 F) 08/18/2009 11:51 AM EDT Respiratory Rate 20 08/18/2009 11:5 1 AM EDT Oxygen Saturation 100% 08/18/2009 11: 51 AM EDT Inhaled Oxygen Concentration - - Weight 108.8 kg (239 lb 13.8 oz) 08/18/2009 4:40 AM EDT Height 175.3 cm (5' 9 ) 08/15/2009 10:0 0 PM EDT Body Mass Index 35.42 08/15/2009 10:00 PM EDT Plan of Treatment Health Maintenance Due Date Last Done Comments Colonoscopy 1957 Hepatitis C Antibody 1975 Tdap Booster 1975 Hepatitis A (HAV) Vaccine (optional start 19+ years) 1 04/03/1975 Pneumococcal Vaccine(s) (50+ yrs) (1 of 2 - PCV) 02/01 Tetanus (Td or Tdap) Booster 02/02/1976 CRC Screening 2002 Cologuard (Stool DNA) 2002 FIT 2002 Shingles (RZV) Vaccine (1 of 2) 2007 Cholesterol 08/16/2014 08/16/2009 Hepatitis B (HBV) Vaccine (optional start 60+ years) 1 04/03/2016 COVID-19 Vaccine ( - 2023- season) 2024 Influenza Vaccine (#1) 2024 RSV vaccine (adult) (1 - 1-dose 75+ series) 02/02/2032 Procedures Procedure Name Priority Date/Time Associated Diagnosis Comments FULL LIPID PROFILE Routine 08/16/2009 4: 37 AM EDT from Last 3 Months or Most Recently Relevant to Health Maintenance Results * (ABNORMAL) FULL LIPID PROFILE (08/16/2009 4:37 AM EDT) Cholesterol 115 <181 mg/dL [facility] Triglycerides 102 <151 mg/dL [facility] HDL Cholesterol 15(L) >44 mg/dL [facility] Non-HDL Cholesterol 100 <130 mg/dL [facility] Chol/HDL Ratio 7.67 [facility] LDL cholesterol 87 <111 mg/dL [facility] LDL/HDL Ratio 5.80(H) <3.57 [facility] Blood, venous line BLOOD SPECIMEN / Unknown 08/16/2009 4:37 AM EDT Claudine Kelsey MD 98 GENERAL LAB Final Result [facility] [address] [place] [phone] from Last 3 Months or Most Recently Relevant to Health Maintenance Insurance [employer] - HMO/PPO/POS Member Subscriber Plan / Payer (Ef fective 2009-Present) Name:Lesley Quintero Relation to Subscriber:Self Name:Lesley Quintero Payer ID:Not on file Type:PPO Address: [address] [place] [id number]
--- OUTSIDE RECORDS SUMMARY | 2025-01-01 12:48 | XMS_ITS | Encounter Summary ---
Author Organization [facility] Address [address] [place] [address] Phone Care Team Providers Care Getterer Name Role Phone Lee Mena DO Primary Care Provider [phone] Lee Mena DO Unavailable Herlinda Velazquez LGSW-V BELT INSPECTOR Unavailable Lee Mena DO Primary Care Provider Carmen Alvarez MD Unavailable Lee Mena DO Primary Care Provider Encounter Details Date Type Department Care Team (Late st Contact Info) Description 07/08/2022 Orders Only [facility] LEGACY [address] [place] [address] Conversion, Onbase Social History Tobacco Use Types [...] Description 01/16/2025 9:30 AM EDT Office Visit [facility] 7[address] [facility] [address] [place] [address] Herlinda Velazquez, LGSW-V BELT INSPECTOR [address] [facility] [address], [address] [place] [address] 06/26/2025 1:20 PM EDT Appointment [facility] [place] [address] [place] [facility] [place] [address] 06/26/2025 2:00 PM EDT Office Visit [facility] [address] [facility] [address] [place] [address] Carmen Alvarez MD [address] [facility] Office [address], [address] [place] [address] 07/18/2025 9:50 AM EDT Office Visit [facility] 703 [facility] 250 [place] [address] Jesus Posey DO 703 [facility] 2, [facility] 250 [place] [address] Scheduled Orders Name Type Priority Associated Diagnoses Orde r Schedule OUTSIDE LAB SCAN Lab Ordered: 07/08/2022 documented as of this encounter Visit Diagnoses Not on filedocumented in this encounter Care Teams Getterer Relationship Specialty Start Date End Date Lee Mena DO PCP - General 08/30/17 02/23/23 Lee Mena DO [facility] [place] [address] PCP - MMO Medicare Advantage PCP 07/20/22 12/19/22 Herlinda Velazquez, LGSW-V BELT INSPECTOR 703 [facility] 2, [address] [place] [address] PCP - MMO Medicare Advantage PCP 12/20/22 03/21/24 Lee Mena DO [address] [place] [address] 2, [address] [place] [address] PCP - General Internal Medicine 02/24/23 10/04/23 Lee Mena DO [address] [place] [address] PCP - General Internal Medicine 10/05/23 Carmen Alvarez MD [address] [facility] [address], [address] [place] [address] Oven Stripper Electrophysiology 05/21/23 documented as of this encounter
--- OUTSIDE RECORDS SUMMARY | 2025-01-01 12:48 | XMS_ITS | Encounter Summary ---
Author Organization [facility] Address [address] [place] [address] Phone Care Team Providers Care Brush Clearer Surveying Name Role Phone Lee Mena DO Primary Care Provider Lee Mena DO Unavailable Herlinda Velazquez BDR-SIZE MARKER Unavailable Lee Mena DO Primary Care Provider Carmen Alvarez MD Unavailable Lee Mena DO Primary Care Provider Encounter Details Date Type Department Care Team (Late st Contact Info) Description 04/22/2022 Orders Only [facility] [address] [place] [address] Conversion, Onbase Social History Tobacco Use Types [...] EDT Office Visit [facility] 703 [facility] [address] [place] [address] Herlinda Velazquez, BDR-SIZE MARKER [address] [facility] [address], [address] [place] [address] 06/26/2025 1:20 PM EDT Appointment [facility] [address] [facility] [place] [place] [address] 06/26/2025 2:00 PM EDT Office Visit [facility] [address] [facility] [address] [place] [address] Carmen Alvarez MD [address] [facility] Office [facility], [address] [place] [address] 07/18/2025 9:50 AM EDT Office Visit [facility] 703 [facility] 250 [place] [address] Jesus Posey DO 703 [facility] 2, [facility] 250 [place] [address] Scheduled Orders Name Type Priority Associated Diagnoses Orde r Schedule OUTSIDE LAB SCAN Lab Ordered: 04/22/2022 documented as of this encounter Visit Diagnoses Not on filedocumented in this encounter Care Teams Brush Clearer Surveying Relationship Specialty Start Date End Date Lee Mena DO PCP - General 08/30/17 02/23/23 Lee Mena DO [facility] [place] [address] PCP - MMO Medicare Advantage PCP 07/20/22 12/19/22 Herlinda Velazquez, BDR-SIZE MARKER 703 [facility] 2, [address] [place] [address] PCP - MMO Medicare Advantage PCP 12/20/22 03/21/24 Lee Mena DO [address] [place] [address] 2, [address] [place] [address] PCP - General Internal Medicine 02/24/23 10/04/23 Lee Mena DO [address] [place] [address] PCP - General Internal Medicine 10/05/23 Carmen Alvarez MD [address] [facility] [address], [address] [place] [address] Walking Dragline Operator Electrophysiology 05/21/23 documented as of this encounter
--- OUTSIDE RECORDS SUMMARY | 2025-01-01 12:48 | XMS_ITS | Encounter Summary ---
Author Organization [facility] Address [address] [place] [address] Care Team Providers Care Internet Project Manager Name Role Phone Lee Mena DO Primary Care Provider [phone] Lee Mena DO Unavailable [phone] Nany De Santiago DO Unavailable [phone] Encounter Details Date Type Department Care Team (Late Contact Info) Description 03/07/2024 Clinisync Result Encounter [facility] External Department Unsolicited Marcella Ko PA [address] [place] [address] Social History Tobacco Use Types Packs/Day Years [...] [facility] [address] [facility] [address] [place] [address] Nany De Santiago DO [address] [facility] [address] [place] [address] documented as of this encounter Procedures Procedure Name Priority Date/Time Associated Diagnosis Comments CT ANGIO HEAD 03/07/2024 12:41 PM EST documented in this encounter Results * CT angiogram head (03/07/2024 12:41 PM EST) Anatomical Region Laterality Modality Head, Neck Computed Tomogra phy 03/07/2024 12:4 1 PM EST Narrative 03/07/2024 12:44 PM EST [address] [address] [address] Scan Report Signed Patient: KASHIF ROD MR#: [id number] : 1955 Acct:[id number] Age/Sex: 69 / M ADM Date: 03/07/24 Loc: LAB Attending Dr: Marcella LATHAM Ordering Physician: Marcella Ko Date of Service: 03/07/24 Procedure(s): CT angio head Accession Number(s): [id number] cc: Lee Mena D.O. [address] [address] Patient Name: KASHIF ROD MRN: [id number] date: 1955 Sex: M Assigned Patient Location: LAB Current Patient Location: LAB Accession/Order Number: [id number] Exam Date: 03/07/2024 11:51 Report Date: 03/07/2024 12:41 At the request of: MARCELLA KO Procedure: CT angio head EXAM: CT head/brain wo con, CT angio [...] the supraclinoid internal carotid artery via the kake of [place]. 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 Vertebrobasilar system: No evidence of aneurysm, significant stenosis, or occlusion. Venous sinuses: Grossly patent. Additional findings: Visualized portion of the lungs are grossly clear. CT/CT angio head IMPRESSION: 1. No acute large vascular territory [...] the supraclinoid internal carotid artery via the kake of [place]. Notification of Results Provider/Agent notified: YEISON Delgado Time/Date notified: 03/07/2024 10:40 AM MST Notifying Staff: Dr. Matthews Electronically authenticated by: ISABELLA MATTHEWS Date: 03/07/2024 12:41 Dictated By: Isabella Matthews M.D. Signed By: 03/07/24 1244 DD/ 1241 TD/TT: Dehydrating Press Operator: Procedure Note Radiology, Radiologist, MD - 03/07/[address] [address] [address] Scan Report Signed Patient: KASHIF ROD GMR#: [id number] : 1955cct:[id number] Age/Sex: 69 / MADM Date: 03/07/24 Loc: LAB Attending Dr: Marcella LATHAM Ordering Physician: Marcella Ko Date of Service: 03/07/24 Procedure(s): CT angio head Accession Number(s): [id number] cc: Lee Mena D.O. The [address] [address] Patient Name: KASHIF ROD MRN: [id number] date: 1955 Sex: M Assigned Patient Location: LAB Current Patient Location: LAB Accession/Order Number: [id number] Exam Date: 03/07/2024 11:51 Report Date: 03/07/2024 12:41 At the request of: MARCELLA KO Procedure: CT angio head EXAM: CT head/brain wo con, CT angio [...] the supraclinoid internal carotid artery via the k[place] of [place]. 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 Vertebrobasilar system: No evidence of aneurysm, significant stenosis, or occlusion. Venous sinuses: Grossly patent. Additional findings: Visualized portion of the lungs are grossly clear. CT/CT angio head IMPRESSION: 1. No acute large vascular territory [...] of the supraclinoidinternal carotid artery via the kake of [place]. Notification of Results Provider/Agent notified: YEISON Delgado Time/Date notified: 03/07/2024 10:40 AM MST Notifying Staff: Dr. Matthews Electronically authenticated by: ISABELLA MATTHEWS Date:03/07/2024 12:41 Dictated By: Isabella Matthews M.D. Signed By:03/07/24 1244 DD/ 1241 TD/TT: Dehydrating Press Operator: us Marcella LATHAM IMG CT PROCEDURES Final Result documented in this encounter Visit Diagnoses Not on filedocumented in this encounter Care Teams Internet Project Manager Relationship Specialty Start Date End Date Lee Mena DO [address] [place] [address] PCP - General Internal Medicine 09/01/23 Nany De Santiago, DO [address] [facility] [address] [place] [address] PCP - Pineda ONOFRE 09/19/24 Lee Mena DO [address] [place] [address] Referring Physician Internal Medicine 06/08/24 documented as of this encounter
--- OUTSIDE RECORDS SUMMARY | 2025-01-01 12:48 | XMS_ITS | Encounter Summary ---
Author Organization [facility] Address [address] [place] [address] Phone Care Team Providers Care Chartered Accountant Name Role Phone Lee Mena DO Primary Care Provider [phone] Lee Mena DO Unavailable [phone] Herlinda Velazquez MANUFACTURING AREA MANAGER-ROTATING EQUIPMENT SPECIALIST Unavailable Lee Mena DO Primary Care Provider [phone] Carmen Alvarez MD Unavailable Lee Mena DO Primary Care Provider Encounter Details Date Type Department Care Team (Late st Contact Info) Description 09/16/2021 Orders Only [facility] LE[facility] [address] [place] [address] Conversion, Onbase Social History Tobacco Use Types [...] Description 01/16/2025 9:30 AM EDT Office Visit [facility] [address] [place] [address] Herlinda Velazquez, MANUFACTURING AREA MANAGER-ROTATING EQUIPMENT SPECIALIST [address], [address] [place] [address] 06/26/2025 1:20 PM EDT Appointment [facility] [address] [place] [facility] [place] [address] 06/26/2025 2:00 PM EDT Office Visit [facility] [address] [facility] [address] [place] [address] Carmen Alvarez MD [address] [facility] Office [facility], [address] [place] [address] 07/18/2025 9:50 AM EDT Office Visit [facility] [address] [facility] [address] [place] [address] Jesus Posey DO 703 [facility] 2, [facility] [address] [place], [place] [phone] Scheduled Orders Name Type Priority Associated Diagnoses Orde r Schedule OUTSIDE LAB SCAN Lab Ordered: 09/16/2021 documented as of this encounter Visit Diagnoses Not on filedocumented in this encounter Care Teams Chartered Accountant Relationship Specialty Start Date End Date Lee Mena DO PCP - General 08/30/17 02/23/23 Lee Mena DO [facility] [place] [address] PCP - MMO Medicare Advantage PCP 07/20/22 12/19/22 Herlinda Velazquez, MANUFACTURING AREA MANAGER-ROTATING EQUIPMENT SPECIALIST 7[address] [facility] 2, [address] [place] [address] PCP - MMO Medicare Advantage PCP 12/20/22 03/21/24 Lee Mena DO [address] [place] [address] 2, [address] [place] [address] PCP - General Internal Medicine 02/24/23 10/04/23 Lee Mena DO [address] [place] [address] PCP - General Internal Medicine 10/05/23 Carmen Alvarez MD [address] [facility] [address], [address] [place] [address] Supply Chain Buyer Electrophysiology 05/21/23 documented as of this encounter
--- OUTSIDE RECORDS SUMMARY | 2025-01-01 12:48 | XMS_ITS | Encounter Summary ---
Author Organization [facility] Address [address] [place] [address] Phone Care Team Providers Care Towel Folder Name Role Phone Lee Mena DO Primary Care Provider Lee Mena DO Unavailable Herlinda Velazquez ARTIST RELATIONSHIP MANAGER-ELECTROFORMER Unavailable Lee Mena DO Primary Care Provider Carmen Alvarez MD Unavailable Lee Mena DO Primary Care Provider [phone] Encounter Details Date Type Department Care Team (Late st Contact Info) Description 12/09/2021 Orders Only [facility] LEGACY [address] [place] [address] Conversion, Onbase Social History Tobacco Use Types [...] Visit [facility] [address] [facility] [address] [place] [address] Herlinda Velazquez, ARTIST RELATIONSHIP MANAGER-ELECTROFORMER [address] [facility] [address], [address] [place] [address] 06/26/2025 1:20 PM EDT Appointment [facility] [address] [place] [facility] [place] [address] 06/26/2025 2:00 PM EDT Office Visit [facility] [address] [facility] [address] [place] [address] Carmen Alvarez MD [address] [facility] Office [facility], [address] [place] [address] 07/18/2025 9:50 AM EDT Office Visit [facility] 703 [facility] 250 [place] [address] Jesus Posey DO [address] [facility] 2, [address] [place], [place] [address] Scheduled Orders Name Type Priority Associated Diagnoses Orde r Schedule OUTSIDE LAB SCAN Lab Ordered: 12/09/2021 documented as of this encounter Visit Diagnoses Not on filedocumented in this encounter Care Teams Towel Folder Relationship Specialty Start Date End Date Lee Mena DO PCP - General 08/30/17 02/23/23 Lee Mena DO [facility] [address] [place] [address] PCP - MMO Medicare Advantage PCP 07/20/22 12/19/22 Herlinda Velazquez, ARTIST RELATIONSHIP MANAGER-ELECTROFORMER [address] [facility] 2, [address] [place] [address] PCP - MMO Medicare Advantage PCP 12/20/22 03/21/24 Lee Mena DO [address] [place] [address] 2, [address] [place] [address] PCP - General Internal Medicine 02/24/23 10/04/23 Lee Mena DO [address] [place] [address] PCP - General Internal Medicine 10/05/23 Carmen Alvarez MD [address] [facility] [address], [address] [place] [address] Vat Cleaner Electrophysiology 05/21/23 documented as of this encounter
--- OUTSIDE RECORDS SUMMARY | 2025-01-01 12:48 | XMS_ITS | Encounter Summary ---
Author Organization [facility] Address [address] [place] [address] Phone Care Team Providers Care Mold Presser Name Role Phone Lee Mena DO Primary Care Provider Lee Mena DO Unavailable [phone] Herlinda Velazquez RADIO REPORTER-OXYGEN EQUIPMENT TECHNICIAN Unavailable Lee Mena DO Primary Care Provider [phone] Carmen Alvarez MD Unavailable Lee Mena DO Primary Care Provider Encounter Details Date Type Department Care Team (Late st Contact Info) Description 10/01/2022 Orders Only [facility] LEGACY [address] [place] [address] Conversion, Onbase Social History Tobacco Use Types [...] Description 01/16/2025 9:30 AM EDT Office Visit [facility] [address] [facility] [address] [place] [address] Herlinda Velazquez, RADIO REPORTER-OXYGEN EQUIPMENT TECHNICIAN [address] [facility] [address], [address] [place] [address] 06/26/2025 1:20 PM EDT Appointment [facility] [address] [place] [facility] [place] [address] 06/26/2025 2:00 PM EDT Office Visit [facility] [address] [facility] 320 [place] [address] Carmen Alvarez MD [address] [facility] Office [facility], [address] [place] [address] 07/18/2025 9:50 AM EDT Office Visit [facility] 703 [facility] 250 [place] [address] Jesus Posey DO 703 [facility] 2, [facility] 250 [place] [address] Scheduled Orders Name Type Priority Associated Diagnoses Orde r Schedule OUTSIDE LAB SCAN Lab Ordered: 10/01/2022 documented as of this encounter Visit Diagnoses Not on filedocumented in this encounter Care Teams Mold Presser Relationship Specialty Start Date End Date Lee eMna DO PCP - General 08/30/17 02/23/23 Lee Mena DO [facility]6 [address] [place] [address] PCP - MMO Medicare Advantage PCP 07/20/22 12/19/22 Herlinda Velazquez, RADIO REPORTER-OXYGEN EQUIPMENT TECHNICIAN [address] [facility] 2, [address] [place] [address] PCP - MMO Medicare Advantage PCP 12/20/22 03/21/24 Lee Mena DO [address] [place] [address] 2, [address] [place] [address] PCP - General Internal Medicine 02/24/23 10/04/23 Lee Mena DO [address] [place] [address] PCP - General Internal Medicine 10/05/23 Carmen Alvarez MD [address] [facility] [address], [address] [place] [address] Business Assistant Electrophysiology 05/21/23 documented as of this encounter
--- OUTSIDE RECORDS SUMMARY | 2025-01-01 12:49 | XMS_ITS | Clinical Summary ---
Author Organization [facility] Address [address] [place] [address] Care Team Providers Care Metrologist Name Role Phone Unavailable Primary Care Provider Unavailabl e Allergies No known active allergies Medications citalopram (CELEXA) 40 mg ORAL tablet Take 40 mg by mouth once daily. Active pravastatin (PRAVACHOL) 40 mg ORAL tablet Take 40 mg by mouth once daily. Active ranitidine (ZANTAC) 150 mg ORAL tablet Take 150 mg by mouth twice daily. Active metFORMIN 500 mg tablet Take 2 tablets by mouth twice daily with meals. 60 tablet 6 09/09/2011 Active Aspirin 81 mg Tab Take 4 tablets by mouth once daily. 30 tablet 12 03/01/2012 Active levETIRAcetam (KEPPRA) 500 mg tablet Take 1 tablet by mouth twice daily. 60 tablet 12 09/07/2012 Active Active Problems Patient Care Coordination No te Formatting of this note migh t be different from the original. HPI: 56 y/o M w/ PMH: remote stroke '98 and residual left sided weakness, SC '10, CAD s/p stent on ASA/ticagrelor, HPL, HTN, EMIL/COPD, DM and recent TIAs (s/p RMCA occlusion) admitted 06/22 for elective R STA-MCA bypass. Admitted to NICU for BP management. ICU Admission Date: 06/23/11 Operative Date: 06/23/11 Principle Diagnosis and Comorbidities: R MCA occlusion s/p STA-MCA bypass Active Consults: Neurosurgery Code Status: Full A/P Events since last ICU note: none. Neuro: 1. Wean neuro checks to w2dsihf. 2. Continue doppler exams to bypass site. 3. Dexamethasone 4mg/BID -- weaning per neurosurgery 4. Levetiracetam 750mg/BID for seizure prophylaxis per neurosurgery. 5. Pain management: percocet and morphine PRN 6. Mobilize, PT/OT consults. To [facility] when bed available. CV: 1. MAP >65 SBP <140 2. EKG and Clemente stable. Pulm: 1. COPD/EMIL management: cannot have mask straps due to bypass. 2. Weaned to RA and stable 3. Hourly IS Renal/Electrolytes: 1. Replacing electrolytes as needed 2. HLIV as is taking po well. 3. D/c morris GI/Nutrition: 1. Tolerating po diet well 2. Continue docusate. Famotidine while on dexamethasone. Endo: 1. Accuchecks and ISS to maintain BG 110-150 2. HOLD glucophage so close to bypass/dye exposure. ID: 1. Active infections: none. 2. Completes post-op cefazolin prophylaxis this afternoon. Heme/VTE: 1. Follow H/H, plts, coags 2. PAS, no Sq heparin Skin/Ext: Intact Lines/Access: pulled noelle Drips: none Disposition/Family Updates: to [facility] when bed available. Problem Noted Date Diagnosed Date Dizziness and giddiness 02/08/2013 HTN (hypertension) 06/23/2011 Overview (06/23/2011): Postop from MCA bypass. Dr Fisher has asked us to maintain a systolic blood pressure greater than 110 to maintain bypass patency. Antihypertensive to avoid breakthrough hyperemia when necessary. DM (diabetes mellitus) 06/23/2011 Overview (06/23/2011): Management per ICU protocol EMIL (obstructive sleep apnea) 06/23/2011 Hyperlipidemia 06/23/2011 Occlusion and stenosis of ca rotid artery without mention of cerebral infarction 02/27/2011 Encounters Date Type Department Care Team Description 12/29/2024 Telephone [facility] [address] [place] [address] Leandro Miller MS 12/19/2024 Patient Ms [facility] [address] [place] [address] Leandro Miller MS Genetic Test Result 12/19/2024 Results Follow-Up Genetic [facility] [address] [place], [place] [address] Leandro Miller MS 12/13/2024 9:00 AM EDT [facility] [address] [place], [place] [address] Leandro Miller MS Family history of pancreatic cancer (Primary Dx); Family history of ovarian cancer 12/13/2024 Patient Msg [facility] [address] [place] [address] Provider, Ccf Please Read: Genetic Testing Information 12/13/2024 Travel 12/06/2024 H&P External-NonCCF Provider, External, PA-C from Last 3 Months Family History Medical History Relation Comments Pancreatic Cancer Brother 2 SC [Other] Father Pancreatic Cancer Mother multiple myeloma [Other] Mother Ovarian cancer Sister 2 Relation Status Comments Brother 1 Alive Brother 2 Daughter Alive Father Maternal Aunt Alive Maternal Uncle Alive Mother Nephew 1 Alive Nephew 2 Alive Paternal Aunt 1 Alive Paternal Aunt 2 Alive Paternal Aunt 3 Alive Paternal Uncle Alive Sister 1 Alive Sister 2 Son Alive Social History Tobacco Use Types Packs/Day Years Used Date Smoking Tobacco: Every Day Cigarettes 1 30 Tobacco Cessation:Ready to Q uit: Yes; Counseling Given: Yes Alcohol Use Standard Drinks/Week Comments Yes 6 (1 standard drink = 0.6 oz pure alcohol) doesn't drink everyday - when he does ~6 beers. Area Deprivation Index Answer Date Patrick rded National Score (1-100), lower number is lower ri sk 93 12/13/2024 State Score (1-10), lower number is lower risk 9 12/13/2024 Data from: https://www.neighborhoodatlas.medicine.[facility].edu/. Last address used for calculation [address] 12/13/2024 Sex and Gender Information Value Date Recorded Sex Assigned at Not on file Legal Sex Male 9:01 AM EST Gender Identity Not on file Sexual Orientation Not on file Last Filed Vital Signs Vital Sign Reading Time Taken Comments Blood Pressure 137/79 01/09/2013 11:44 AM EDT Pulse 67 01/09/2013 11:44 AM EDT Temperature 35.8 C (96.5 F) 06/25/2011 7:00 AM EDT Respiratory Rate 18 01/09/2013 11:43 AM EDT Oxygen Saturation 98% 06/25/2011 7:00 AM EDT Inhaled Oxygen Concentration - - Weight 113.2 kg (249 lb 9 oz) 06/23/2011 3:14 PM EDT Height 175.3 cm (5' 9.02 ) 06/23/2011 3:14 PM ED T Body Mass Index 36.84 06/23/2011 3:14 PM EDT Plan of Treatment Health Maintenance Due Date Last Done Comments Abdominal Aortic Aneurysm Screening 1955 Diabetic Foot Exam 1967 Dilated Retinal Exam 1967 Urine Albumin:Creatinine Ratio 1967 Annual PCP Team Chronic Dise ase Visit 1975 Anxiety Screening 1975 Depression Screening 1975 Hepatitis C Screening 1975 CT Colonography 2002 Cologuard (FIT-DNA) 2002 Colonoscopy 2002 Colorectal Cancer Screening 2002 Fecal Occult Blood 2002 Prostate Cancer Screening Discussion 2002 Sigmoidoscopy 2002 Lung Cancer Screening 2007 Shingrix Vaccine (1 of 2) 2007 Advance Directive Discussion 03/22/2024 Medicare Advantage [facility] 03/22/2024 Covid-19 Vaccine (3 - 2024-2 6 season) 2024 08/22/2020, 08/03/2020 HbA1C 05/28/2025 11/28/2024, 08/20, 09/04/2017 LDL Cholesterol 07/18/2025 07/18/2024, 08/20, 09/03/2017 DTaP,Tdap,Td Vaccine (2 - Td or Tdap) 06/01/2027 05/31/2017 RSV Vaccine (1 - 1-dose 75+ series) 02/02/2032 Pneumococcal Vaccine: 50+ Completed 2021, 03/22/2018, 12/20/2017, Additional history exists Influenza Vaccine Completed 12/04/2024, , 12/21/2023, Additional history exists Medical Devices Implanted Type Area Rent Collector Device Identifier Shelf Expiration Date Model / Serial / Lot Graft Dura 2x2in Ptch Rsrb - [id number] Implanted:Q ty: 1 on 06/23/2011 at [facility] Framework - Tissue Right: Head - Cranial [employer] 12/20/2013 [id number] / / [id number] Description:dura gen Plate Lw Prof 2hole 12mm Bar - [id number] Implanted:Q ty: 3 on 06/23/2011 at [facility] Plate Right: Head - Cranial STRY-HOWM CRANIOMAXILLOFACIAL [id number] / / [id number] Description:dog bone Plate Cvr Bur Hole Lp 10mm - [id number] Implanted:Q ty: 1 on 06/23/2011 at [facility] Plate Right: Head - Cranial STRY-HOWM CRANIOMAXILLOFACIAL [id number] / / [id number] Description:bur hole Screw Self Drilling 1.5x4mm - [id number] Implanted:Q ty: 9 on 06/23/2011 at [facility] Screw Right: Head - Cranial SOTERO [id number] / / [id number] Description:screw Procedures Procedure Name Priority Date/Time Associated Diagnosis Comments [facility] HEREDITARY DIAGNOSTIC CANCER PANEL Routine 12/13/2024 9:43 AM EDT Family history of pancreatic cancer Family history of ovarian cancer EXTERNAL LAB 12/06/2024 10:01 AM EDT EXTERNAL LAB 12/06/2024 10:01 AM EDT from Last 3 Months Results * [facility] HEREDITARY DIAGNOSTIC CANCER PANEL (12/13/2024 9:43 AM EDT) Pathologist [facility] Test Performed [facility] Multi-Cancer Panel 12/19/2024 5:18 AM EDT [facility] About Test This diagnostic test evaluates 70 gene(s) for variants (genetic changes) that are associated with genetic disorders. Diagnostic genetic testing, when combined with family history and other medical results, may provide information to clarify individual risk, support a clinical diagnosis, and assist with the development of a personalized treatment and management strategy. 12/19/2024 5:18 AM EDT [facility] GENETIC ANALYSIS OVERALL INTERPRETATION Negative 12/19/2024 5:18 AM EDT [facility] Tested Genes AIP (NM_003977.3), ALK (NM_004304.4), APC (NM_000038.5), MARY ANN (NM_000051.3), AXIN2 (NM_004655.3), BAP1 (NM_004656.3), BARD1 (NM_000465.3), BLM (NM_000057.3), BMPR1A (NM_004329.2), BRCA1 (NM_007294.3), BRCA2 (NM_000059.3), BRIP1 (NM_032043.2), CDC73 (NM_024529.4), CDH1 (NM_004360.3), CDK4 (NM_000075.3), CDKN1B (NM_004064.4), CDKN2A (p14ARF) (NM_058195.3), CDKN2A (i14TTL4a) (NM_000077.4), CHEK2 (NM_007194.3), CTNNA1 (NM_001903.3), DICER1 (NM_177438.2), EGFR (NM_005228.3), EPCAM (NM_002354.2), FH (NM_000143.3), FLCN (NM_144997.5), GREM1 (NM_013372.6), HOXB13 (NM_006361.5), KIT (NM_000222.2), LZTR1 (NM_006767.3), MAX (NM_002382.4), MBD4 (NM_003925.2), MEN1 (NM_130799.2), MET (NM_001127500.1) , MITF (NM_000248.3), MLH1 (NM_000249.3), MSH2 (NM_000251.2), MSH3 (NM_002439.4), MSH6 (NM_000179.2), MUTYH (NM_001128425.1) , NF1 (NM_000267.3), NF2 (NM_000268.3), NTHL1 (NM_002528.6), PALB2 (NM_024675.3), PDGFRA (NM_006206.4), PMS2 (NM_000535.5), POLD1 (NM_002691.3), POLE (NM_006231.3), POT1 (NM_015450.2), BSAIJ3Z (NM_002734.4), PTCH1 (NM_000264.3), PTEN (NM_000314.4), RAD51C (NM_058216.2), RAD51D (NM_002878.3), RB1 (NM_000321.2), RET (NM_020975.4), SDHA (NM_004168.3), SDHAF2 (NM_017841.2), SDHB (NM_003000.2), SDHC (NM_003001.3), SDHD (NM_003002.3), SMAD4 (NM_005359.5), SMARCA4 (NM_001128849.1) , SMARCB1 (NM_003073.3), SMARCE1 (NM_003079.4), STK11 (NM_000455.4), SUFU (NM_016169.3), AQTO898 (NM_017849.3), TP53 (NM_000546.5), TSC1 (NM_000368.4), TSC2 (NM_000548.3), VHL (NM_000551.3) This table represents a complete list of genes analyzed for this individual, including the relevant gene transcript(s). If more than one transcript is listed for a single gene, variants were reported using the first transcript listed unless otherwise indicated in the report. An asterisk (*) indicates that this gene has a limitation. Please see the Limitations section for details. Results are negative unless otherwise indicated in the report. Benign and Likely Benign variants are not included in this report and in specific scenarios variants of uncertain significance in the requisitioned gene(s) may not be included in this report. 12/19/2024 5:18 AM EDT [facility] Additional Information For additional information related to the methods and limitations of this testing, please see the PDF report 12/19/2024 5:18 AM EDT [facility] Blood Venipuncture / Unknown 12/13/2024 9:43 AM EDT 12/13/2024 9:44 AM EDT us Staci Davies MD, PhD LABORATORY Final R esult [facility] [address] [place] [address], * EXTERNAL LAB (12/06/2024 10:01 AM EDT) Only the most recent of2 resultswithin the time period is included. us External Provider [facility] Final Res ult from Last 3 Months Insurance Advance Directives Documents on File Type Date Recorded Patient Data Center Manager Expl anation Advance Directive(s) 06/15/2011 6:45 PM
--- OUTSIDE RECORDS SUMMARY | 2025-01-01 12:49 | XMS_ITS | Encounter Summary ---
Author Organization [facility] Address [address] [place] [address] Care Team Providers Care Heel Padder Name Role Phone Lee Mena DO Primary Care Provider [phone] Lee Mena DO Unavailable [phone] Nany De Santiago DO Unavailable [phone] Encounter Details Date Type Department Care Team (Late st Contact Info) Description 06/27/2024 Abstract [facility] [address] [facility] [address] [place] [address] Nany De Santiago, DO [address] [facility] [address] [place] [address] Social History Tobacco Use Types Packs/Day Years [...] week 05/23/2024 How often do you attend [facility] or uatsdin services? Never 05/23/2024 Do you belong to any clubs o r organizations such as yarsanism groups, unions, fraternal or athletic groups, or [...] Recorded Patient Health Questionnaire-2 Score 0 05/23/2024 [facility] - Occupational Stress [...] were you homeless or living in a usp (including now)? No 05/23/2024 Sex and Gender [...] [address] [place] [address] Nany De Santiago DO [address] [place] [address] documented as of this encounter Visit Diagnoses Not on filedocumented in this encounter Care Teams Heel Padder Relationship Specialty Start Date End Date Lee Mena DO [address] [place] [address] PCP - General Internal Medicine 09/01/23 Nany De Santiago DO [address] [place] [address] PCP - Pineda ONOFRE 09/19/24 Lee Mena DO [address] [place] [address] Referring Physician Internal Medicine 06/08/24 documented as of this encounter
--- OUTSIDE RECORDS SUMMARY | 2025-01-01 12:49 | XMS_ITS | Encounter Summary ---
Author Organization [facility] Address [address] [place] [address] Care Team Providers Care Hydrostatic Tubing Tester Name Role Phone Lee Mena DO Primary Care Provider [phone] Lee Mena DO Unavailable [phone] Nany De Santiago DO Unavailable [phone] Encounter Details Date Type Department Care Team (Late st Contact Info) Description 10/25/2024 Orders Only [facility] [place] [facility] [address] [facility] [address] [place] [address] Unallocated, Noms Provider, [address] [place] [address] Social History Tobacco Use Types Packs/Day Years Used Date Smoking Tobacco: Every Day Cigarettes 1 50 Smokeless Tobacco: Never Comments:Pipe tabacco in a c igarette form Alcohol Use Standard Drinks/Week Comments Yes 9 [...] 05/23/2024 How often do you attend [facility] or confucianism services? Never 05/23/2024 Do you belong to any clubs o r organizations such as bahai groups, unions, fraternal or athletic groups, or [...] Date Recorded Patient Health Questionnaire-2 Score 0 08/28/2024 [facility] - Occupational [...] were you homeless or living in a halfway (including now)? No 05/23/2024 Sex and Gender Information Value Date Recorded Sex Assigned at Not on file Legal Sex Male 6:57 PM EDT Gender Identity Not on file Sexual Orientation Not on file documented as of this encounter Plan of Treatment Upcoming Encounters Date Type Department Care Team (Late st Contact Info) Description 02/27/2025 10:30 AM EST Office Visit [facility] [place] [facility] [address] [facility] [address] [place] [address] Nany De Santiago DO [address] [facility] 230 [place] [address] documented as of this encounter Procedures Procedure Name Priority Date/Time Associated Diagnosis Comments DIABETIC RETINOPATHY SCREENING - OU - BOTH EYES Routine 10/25/2024 1:41 PM EDT documented in this encounter Results * Diabetic Retinopathy Screening - OU - Both Eyes (10/25/2024 1:41 PM EDT) Anatomical Region Laterality Modality Head Other us Noms Provider Unallocated OPHTH PHOTOGRAPHY F inal Result documented in this encounter Visit Diagnoses Not on filedocumented in this encounter Care Teams Hydrostatic Tubing Tester Relationship Specialty Start Date End Date Lee Mena DO [address] [facility] [place] [address] PCP - General Internal Medicine 09/01/23 Nany De Santiago DO [address] [facility] 230 [place] [address] PCP - Pineda ONOFRE 09/19/24 Lee Mena DO [address] [place] [address] Referring Physician Internal Medicine 06/08/24 documented as of this encounter
--- OUTSIDE RECORDS SUMMARY | 2025-01-01 12:49 | XMS_ITS | Encounter Summary ---
Author Organization [facility] Address [address] [place] [address] Phone Care Team Providers Care Acrobatic Rigger Name Role Phone Herlinda Velazquez HOUSING PROPERTY MANAGER-ABRASIVE GRADER HELPER Unavailable Lee Mena DO Primary Care Provider Carmen Alvarez MD Unavailable Lee Mena DO Primary Care Provider [phone] Encounter Details Date Type Department Care Team (Late st Contact Info) Description 04/25/2023 Patient Risk Score [facility] [address] [place] [address] Social History Tobacco Use Types Packs/Day Years Used Date Smoking Tobacco: Every Day Cigarettes 1 45 Smokeless Tobacco: Never Alcohol Use Standard Drinks/Week Comments Yes 2 (1 standard drink = 0.6 oz pur e alcohol) Sex and Gender Information Value Date Recorded Sex Assigned at Male 01/09/2023 11:58 AM EDT Legal Sex Male 8:00 PM EST Gender Identity Male 01/09/2023 11:58 AM EDT Sexual Orientation Not on file documented as of this encounter Plan of Treatment Upcoming Encounters Date Type Department Care Team (Late st Contact Info) Description 01/16/2025 9:30 AM EDT Office Visit [facility] [address] [facility] [address] [place] [address] Herlinda Velazquez, HOUSING PROPERTY MANAGER-ABRASIVE GRADER HELPER [address] [facility] 2, [address] [place] [address] 06/26/2025 1:20 PM EDT Appointment [facility] [address] [place] [facility] [place] [address] 06/26/2025 2:00 PM EDT Office Visit [facility] [address] [facility] [address] [place] [address] Carmen Alvarez MD [address] [facility] Office [facility], [facility] [address] [place] [address] 07/18/2025 9:50 AM EDT Office Visit [facility] 7[address] [facility] [address] [place] [address] Jesus Posey DO [address] [facility] 2, [facility] [address] [place] [address] documented as of this encounter Visit Diagnoses Not on filedocumented in this encounter Additional Health Concerns Assessment Noted Time A fall risk assessment has been complete d for the patient 03/10/2023 10:44 AM EST documented as of this encounter Care Teams Acrobatic Rigger Relationship Specialty Start Date End Date Herlinda Velazquez APRN-ABRASIVE GRADER HELPER [address] [place] [address] 2, [address] [place] [address] PCP - MMO Medicare Advantage PCP 12/20/22 03/21/24 Lee Mena DO [address] [facility] 2, [facility] 250 [place] [address] PCP - General Internal Medicine 02/24/23 10/04/23 Lee Mena DO [facility] [place] [address] PCP - General Internal Medicine 10/05/23 Carmen Alvarez MD [address] [facility], [address] [place] [id number] Switch House Operator Electrophysiology 05/21/23 documented as of this encounter
--- OUTSIDE RECORDS SUMMARY | 2025-01-01 12:49 | XMS_ITS | Encounter Summary ---
Author Organization [facility] Address [address] [place] [address] Phone Care Team Providers Care Switch Operator Name Role Phone Lee Mena DO Primary Care Provider Lee Mena DO Unavailable Herlinda Velazquez SENIOR ADMINISTRATIVE SUPPORT-REGISTERED HEALTH NURSE Unavailable Lee Mena DO Primary Care Provider Carmen Alvarez MD Unavailable Lee Mena DO Primary Care Provider Encounter Details Date Type Department Care Team (Late st Contact Info) Description 11/22/2022 Patient Risk Score [facility] Management [address] [place] [address] Social History Tobacco Use Types Packs/Day Years Used Date Smoking Tobacco: Never Assessed Sex and Gender Information Value Date Recorded Sex Assigned at Male 01/09/2023 11:58 AM EDT Legal Sex Male 8:00 PM EST Gender Identity Male 01/09/2023 11:58 AM EDT Sexual Orientation Not on file documented as of this encounter Functional Status * BP Answer Date of Assessment Author [id number] 11/25/2022 11:48 AM EDT Conversi on, [employer] Vitals * Pulse Answer Date of Assessment Author 70 11/25/2022 11:48 AM EDT Conversi on, [employer] Vitals documented as of this encounter Plan of Treatment Upcoming Encounters Date Type Department Care Team (Late st Contact Info) Description 01/16/2025 9:30 AM EDT Office Visit [place] [id number] [facility] [address] [place] [address] Herlinda Velazquez, SENIOR ADMINISTRATIVE SUPPORT-REGISTERED HEALTH NURSE 703 [facility] 2, [address] [place] [address] 06/26/2025 1:20 PM EDT Appointment [facility] [address] [place] [facility] [address] 06/26/2025 2:00 PM EDT Office Visit [facility] [address] [facility] [address] [place] [address] Carmne Alvarez MD [address] [facility] Medical Office [facility], [address] [place] [address] 07/18/2025 9:50 AM EDT Office Visit [address] [place] [address] Jesus Posey DO 703 [facility] 2, [address] [place] [address] documented as of this encounter Visit Diagnoses Not on filedocumented in this encounter Care Teams Switch Operator Relationship Specialty Start Date End Date Lee Mena DO PCP - General 08/30/17 02/23/23 Lee Mena DO [address] [place] [address] PCP - MMO Medicare Advantage PCP 07/20/22 12/19/22 Herlinda Velazquez, SENIOR ADMINISTRATIVE SUPPORT-REGISTERED HEALTH NURSE [address] [place] [address] 2, [address] [place] [address] PCP - MMO Medicare Advantage PCP 12/20/22 03/21/24 Lee Mena DO 703 [facility] 2, [address] [place] [address] PCP - General Internal Medicine 02/24/23 10/04/23 Lee Mena DO [facility] [place] [address] PCP - General Internal Medicine 10/05/23 Carmen Alvarez MD [address] [facility], [address] [place] [address] Rail Car Unloader Electrophysiology 05/21/23 documented as of this encounter
--- OUTSIDE RECORDS SUMMARY | 2025-01-01 12:49 | XMS_ITS | Encounter Summary ---
Author Organization [facility] Address [address] [place] [address] Phone Care Team Providers Care Hand Embroiderer Name Role Phone Lee Mena DO Primary Care Provider Lee Mena DO Unavailable Herlinda Velazquez HOUSING RELOCATION-EXECUTIVE COORDINATOR Unavailable Lee Mena DO Primary Care Provider Carmen Alvarez MD Unavailable Lee Mena DO Primary Care Provider [phone] Encounter Details Date Type Department Care Team (Late st Contact Info) Description 09/21/2022 Patient Risk Score [facility]CO Care Management [address] [place] [address] Social History Tobacco Use Types Packs/Day Years [...] Description 01/16/2025 9:30 AM EDT Office Visit [facility] 7[address] [facility] [address] [place] [address] Herlinda Velazquez, HOUSING RELOCATION-EXECUTIVE COORDINATOR [address], [address] [place] [address] 06/26/2025 1:20 PM EDT Appointment [facility] [address] [place] [facility] [place] [address] 06/26/2025 2:00 PM EDT Office Visit [facility] [address] [facility] [address] [place] [address] Carmen Alvarez MD [address] [facility] Office [facility], [address] [place] [address] 07/18/2025 9:50 AM EDT Office Visit [facility] 703 [facility] 250 [place] [address] Jesus Posey DO 703 [facility] 2, [facility] [address] [place] [address] documented as of this encounter Visit Diagnoses Not on filedocumented in this encounter Care Teams Hand Embroiderer Relationship Specialty Start Date End Date Lee Mena, DO PCP - General 08/30/17 02/23/23 Lee Mena, [address] [place] [address] PCP - MMO Medicare Advantage PCP 07/20/22 12/19/22 Herlinda Velazquez, HOUSING RELOCATION-EXECUTIVE COORDINATOR 703 [facility] 2, [address] [place] [address] PCP - MMO Medicare Advantage PCP 12/20/22 03/21/24 Lee Mena, 703 [facility] 2, [address] [place] [address] PCP - General Internal Medicine 02/24/23 10/04/23 Lee Mean DO [address] [place] [address] PCP - General Internal Medicine 10/05/23 Carmen Alvarez MD [address] [facility] [address], [facility] [address] [place], [place] [id number] Physician Compensation Analyst Electrophysiology 05/21/23 documented as of this encounter
--- OUTSIDE RECORDS SUMMARY | 2025-01-01 12:49 | XMS_ITS | Encounter Summary ---
Author Organization [facility] Address [address] [place] [address] Phone Care Team Providers Care Squirrel Man Name Role Phone Lee Mena DO Primary Care Provider Lee Mena DO Unavailable Herlinda Velazquez HAT FINISHING MATERIALS PREPARER-SCOURER Unavailable Lee Mena DO Primary Care Provider Carmen Alvarez MD Unavailable Lee Mena DO Primary Care Provider Encounter Details Date Type Department Care Team (Late st Contact Info) Description 11/24/2022 Scanned Document [facility] [address] [place] [address] Conversion, Onbase Social History Tobacco Use Types [...] 9:30 AM EDT Office Visit [place] [address] [facility] [address] [place] [address] Herlinda Velazquez, HAT FINISHING MATERIALS PREPARER-SCOURER 703 [facility] 2, [address] [place] [address] 06/26/2025 1:20 PM EDT Appointment [facility] [address] [place] [facility] [place] [place] [address] 06/26/2025 2:00 PM EDT Office Visit [facility] [address] [facility] [address] [place] [address] Carmen Alvarez MD [address] [facility] Medical Office [address], [address] [place] [address] 07/18/2025 9:50 AM EDT Office Visit [address] [place] [address] Jesus Posey DO 703 [facility] 2, [facility] 250 [place] [address] documented as of this encounter Procedures Procedure Name Priority Date/Time Associated Diagnosis Comments OUTSIDE GENERIC TESTING 11/24/2022 documented in this encounter Results * OUTSIDE GENERIC TESTING (11/24/2022) Anatomical Region Laterality Modality Other Narrative 11/24/2022 Ordered by an unspecified provider. us Onbase Conversion OUTSIDE SCAN Final Result documented in this encounter Visit Diagnoses Not on filedocumented in this encounter Care Teams Squirrel Man Relationship Specialty Start Date End Date Lee Mena DO PCP - General 08/30/17 02/23/23 Lee Mena DO [address] [place] [address] PCP - MMO Medicare Advantage PCP 07/20/22 12/19/22 Herlinda Velazquez APRN-SCOURER 703 [facility] 2, [address] [place] [address] PCP - MMO Medicare Advantage PCP 12/20/22 03/21/24 Lee Mena DO 703 [facility] 2, [address] [place] [address] PCP - General Internal Medicine 02/24/23 10/04/23 Lee Mena DO [address] [place] [address] PCP - General Internal Medicine 10/05/23 Carmen Alvarez MD [address] [facility] [address], [address] [place], [place] [address] Senior Manufacturing Supervisor Electrophysiology 05/21/23 documented as of this encounter
--- OUTSIDE RECORDS SUMMARY | 2025-01-01 12:49 | XMS_ITS | Clinical Summary ---
Author Organization [facility] Healthcare Address [address] [place] [address] Care Team Providers Care Leather Coverer Name Role Phone Lee Mena DO Primary Care Provider [phone] Lee Mena DO Unavailable [phone] Nany De Santiago DO Unavailable [phone] Allergies Active Allergy Reactions Criticality Noted Date Comments Alexy Inhibitors Other 12/30/2022 Medications amiodarone (Pacerone) 200 MG tablet Take 200 mg by mouth in the morning. 06/21/19 24 Active aspirin 81 MG EC tablet Daily at bedtime 11/14/19 23 Active atorvastatin (Lipitor) 80 MG tablet Daily at bedtime 11/14/19 23 Active famotidine (Pepcid) 20 MG tablet Take 20 mg by mouth in the morning and 20 mg in the evening. Active losartan (Cozaar) 25 MG tablet Take 25 mg by mouth in the morning. 01/13/20 23 Active metoprolol succinate XL (Toprol-XL) 50 MG 24 hr tablet Take 1 tablet by mouth Daily 05/01/19 24 Active mirtazapine (Remeron) 30 MG tablet Daily at bedtime 12/14/19 23 Active rOPINIRole (Requip) 0.5 MG tablet Take 0.5 mg by mouth at bedtime 12/22/19 23 Active warfarin (Coumadin) 2 MG tablet Take 2 mg by mouth See administration instructions 01/08/20 23 Active levETIRAcetam (Keppra) 750 MG tabletIndications :Seizure disorder (HCC) Take 1 tablet (750 mg) by mouth in the morning and 1 tablet (750 mg) before bedtime. 180 tablet 1 05/15/19 25 Active furosemide (Lasix) 20 MG tablet Take 20 mg by mouth Daily 06/21/19 Active isosorbide mononitrate ER (Imdur) 30 MG 24 hr tablet Take 30 mg by mouth Daily Do not crush or chew. Active Semaglutide,0.25 or 0.5MG/DOS, (Ozempic, 0.25 or 0.5 MG/DOSE,) 2 MG/3ML solution pen-injectorIndic ations:Type 2 diabetes mellitus with other circulatory complications (HCC) Inject 0.5 mg under the skin 1 (one) time per week 3 mL 3 05/24/19 25 Active Continuous Glucose Sensor (FreeStyle Sarah 3 Plus Sensor) miscIndications:T ype 2 diabetes mellitus with other circulatory complications (HCC) 1 each See administration instructions 6 each 3 07/14/19 25 Active insulin glargine (Lantus) 100 UNIT/ML injection Inject 27 Units under the skin Daily 15 mL 3 11/29/19 25 Active Active Problems Problem Noted Date Diagnosed Date Type 2 diabetes mellitus wit h other circulatory complications 05/23/2024 Assessment & Plan (11/28/2024 2:32 PM EDT): During the appointment today all pertinent labs, imaging, health maintenance, and glucose readings were reviewed. Encouraged to check blood glucose throughout the day with some fasting and some PP readings. They are to bring their glucose meter/cgm in to all appointments. All of the patients questions, treatment options, and current care plan and goals were discussed. A copy of this along with pertinent instructions were given to the patient at the end of the appointment. The patient voices understanding of all of this and is to call in between appointments if they have any problems or questions. Kashif Skelton Viola is doing very well and encouraged on this. , The patient is wearing their cgm on a daily basis and making decisions in regards to adjusting insulin daily as well for at least the last 60 days , Instructions given today include: Hypoglycemia management and Insulin instructions. Will decrease insulin to help prevent low bg. Assessment & Plan (08/28/2024 3:20 PM EDT): During the appointment today all pertinent labs, imaging, health maintenance, and glucose readings were reviewed. Encouraged to check blood glucose throughout the day with some fasting and some PP readings. They are to bring their glucose meter/cgm in to all appointments. All of the patients questions, treatment options, and current care plan and goals were discussed. A copy of this along with pertinent instructions were given to the patient at the end of the appointment. The patient voices understanding of all of this and is to call in between appointments if they have any problems or questions. Kashif Rod is doing very well and encouraged on this. , Will stay on current medications. , The patient is wearing their cgm on a daily basis and making decisions in regards to adjusting insulin daily as well for at least the last 60 days , Instructions given today include: Insulin instructions and Dietary education Assessment & Plan (06/26/2024 3:34 PM EDT): During the appointment today all pertinent labs, imaging, health maintenance, and glucose readings were reviewed. Encouraged to check blood glucose throughout the day with some fasting and some PP readings. They are to bring their glucose meter/cgm in to all appointments. All of the patients questions, treatment options, and current care plan and goals were discussed. A copy of this along with pertinent instructions were given to the patient at the end of the appointment. The patient voices understanding of all of this and is to call in between appointments if they have any problems or questions. Kashif Rod is doing very well and encouraged on this. , Instructions given today include: Insulin instructions. Will decrease insulin to help prevent low bg. He is to continue with the dietary changes he made as he is doing very well. Assessment & Plan (05/24/2024 4:25 PM EST): During the appointment today all pertinent labs, imaging, health maintenance, and glucose readings were reviewed. Encouraged to check blood glucose throughout the day with some fasting and some PP readings. They are to bring their glucose meter/cgm in to all appointments. All of the patients questions, treatment options, and current care plan and goals were discussed. A copy of this along with pertinent instructions were given to the patient at the end of the appointment. The patient voices understanding of all of this and is to call in between appointments if they have any problems or questions. Kashif Rod is struggling to gain control of their diabetes. I am very concerned for diabetes related complications. , The patient is wearing their cgm on a daily basis and making decisions in regards to adjusting insulin daily as well for at least the last 60 days , Discussed dietary changes at length. Encouraged to limit simple carbs and focus more on healthy protein/fat with all meals and snacks. They should also avoid any sugary drinks. , Instructed on the proper insulin injection technique either in the abdomen, upper outer thigh, or back of the arm. They are to rotate injection sites to prevent scar tissue. , Instructions given today include: Insulin instructions and Dietary education. Will try and simplify his regimen and gave him a lot of education today. Will stop levemir. Will change lantus to once a day dosing. Will start ozempic and if this is not affordable try and get him set up for patient assistance. GLP-1 and GLP-1/GIP agonist: Instructed on injection technique and the use of the medication. Pt has no hx of pancreatitis or fmh of mtc. Pt is to call if any significant vomiting, diarrhea, or reflux. The only way this plan is going to work is if he improves his diet significantly. He feels like he can make some of the changes we discussed. 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 Degenerative lumbar disc 08/31/2023 Cerebrovascular accident (CV A) due to occlusion of right carotid artery 08/31/2023 Occlusion and stenosis of other cerebral arterie s 08/31/2023 Paresthesia 08/31/2023 Seizure disorder 08/31/2023 Encounters Date Type Department Care Team Description 11/28/2024 2:00 PM EDT Office Visit [facility] [address] [place] [address] Nany De Santiago, Type 2 diabetes mellitus with other circulatory complications (HCC) 11/28/2024 Travel 10/25/2024 Orders Only [facility] [address] [place] [address] Unallocated, Nomliliana Curiel MD 10/05/2024 Telephone [facility] [address] [place] [address] Sharonda Melton LPN PAP rec'd (Ozempic (4)) from Last 3 Months Family History Medical History Relation Name Comments Pancreatic cancer Brother Armando Alcohol abuse Father Manolo Diabetes Father Manolo Heart attack Father Manolo Heart disease Father Manolo Hypertension Father Manolo Stroke Father Manolo Heart attack Maternal Grandfather Alcohol abuse Mother Ashlee Bone cancer Mother [place] Heart attack Paternal Grandfather Ovarian cancer Sister Claudia Relation Name Status Comments Brother Armando Father Manolo Maternal Grandfather Mother Ashlee Paternal Grandfather Sister Claudia Social History Tobacco Use Types Packs/Day Years Used Date Smoking Tobacco: Every Day Cigarettes 1 50 Smokeless Tobacco: Never Tobacco Cessation:Ready to Q uit: Not Asked; Counseling Given: Not Answered Comments:Pipe tobacco in a cigarette form Alcohol Use Standard Drinks/Week Comments Yes [...] week 05/23/2024 How often do you attend chur or moravian services? Never 05/23/2024 Do you belong to any clubs o r organizations such as adventist groups, unions, fraternal or athletic groups, or [...] Date Recorded Patient Health Questionnaire-2 Score 0 11/28/2024 [facility] of Occupat ional [facility] - Occupational Stress Questionnaire Answer Date Recorded [...] [facility] the [facility] were you [facility] or living in a snf (including now)? No 05/23/2024 Sex and Gender Information Value Date Recorded Sex Assigned at Not on file Legal Sex Male 6:57 PM EDT Gender Identity Not on file Sexual Orientation Not on file Last Filed Vital Signs Vital Sign Reading Time Taken Comments Blood Pressure 112/64 11/28/2024 2:05 PM EDT Pulse 62 11/28/2024 2:05 PM EDT Temperature 36.8 C (98.3 F) 11/28/2024 2:05 PM EDT Respiratory Rate 16 06/08/2024 12:37 PM EDT Oxygen Saturation 100% 11/28/2024 2:05 PM EDT Inhaled Oxygen Concentration - - Weight 102 kg (225 lb) 11/28/2024 2:05 PM EDT Height 175.3 cm (5' 9 ) 11/28/2024 2:05 PM EDT Body Mass Index 33.23 11/28/2024 2:05 PM EDT Plan of Treatment Upcoming Encounters Date Type Department Care Team (Late st Contact Info) Description 02/27/2025 10:30 AM EST Office Visit [facility] [address] [place] [address] Nany De Santiago DO [address] [place] [address] Health Maintenance Due Date Last Done Comments CT Colonography 1957 Colonoscopy 1957 Colorectal Cancer Screening 1957 FIT-DNA 1957 FIT 1957 FOBT 1957 Lung Cancer Screening Shared Decision Making 1957 Medicare Annual Wellness (AWV) 1957 Sigmoidoscopy 1957 Diabetes: Urine Protein Screening 02/02/1976 Influenza Vaccine (#1) 2024 4, 12/21/2023, 01/05/2023, Additional history exists Diabetes: Hemoglobin A1C 02/27/2025 025, 08/28/2024, 05/10/2024, Additional history exists Diabetes: Retinopathy Screening 10/25/2026 Pneumococcal Vaccine: 65+ Years Completed 02/27/2022, 12/29/2020, 03/22/2018, Additional history exists Procedures Procedure Name Priority Date/Time Associated Diagnosis Comments POCT GLYCOSYLATED HEMOGLOBIN (HGB A1C) Routine 11/28/2024 2:19 PM EDT Type 2 diabetes mellitus with other circulatory complications (HCC) DIABETIC RETINOPATHY SCREENING - OU - BOTH EYES Routine 10/25/2024 1:41 PM EDT from Last 3 Months Results * POCT glycosylated hemoglobin (Hb A1C) docked device (11/28/2024 2:19 PM EDT) Hemoglobin A1C 7.6 Blood Venous blood specimen / Unknown 11/28/2024 2:19 PM EDT us Nany De Santiago DO POINT OF CARE TEST ENTER/E DIT ORDERABLES Final Result * Diabetic Retinopathy Screening - OU - Both Eyes (10/25/2024 1:41 PM EDT) Anatomical Region Laterality Modality Head Other Noms Provider Unallocated OPHTH PHOTOGRAPHY F inal Result from Last 3 Months Insurance [employer] MEDICARE ADVANTAGE Care Teams Leather Coverer Relationship Specialty Start Date End Date Lee Mena DO [address] [place] [phone] PCP - General Internal Medicine 09/01/23 Nany De Santiago DO [address] [facility] [address] [place] [address] KARIS - Pineda ONOFRE 09/19/24 Lee Mena DO [address] [facility] [place] [address] Referring Physician Internal Medicine 06/08/24
--- OUTSIDE RECORDS SUMMARY | 2025-01-01 12:49 | XMS_ITS | Encounter Summary ---
Author Organization [facility] Address [address] [place] [address] Phone Care Team Providers Care Suture Winder Hand Name Role Phone Herlinda Velazquez Rowan ROGERS Unavailable Lee Mena DO Primary Care Provider [phone] Carmen Alvarez MD Unavailable Lee Mena DO Primary Care Provider [phone] Encounter Details Date Type Department Care Team (Late st Contact Info) Description 03/24/2023 Patient Risk Score ACO Care Management [address] [place] [address] Social History Tobacco Use Types [...] suspected to have Coronavirus/COVID-19? No / Unsure 03/10/2023 10:11 AM EST documented as of this encounter Plan of Treatment Upcoming Encounters Date Type Department Care Team (Late st Contact Info) Description 01/16/2025 9:30 AM EDT Office Visit [address] [place] [address] Herlinda Velazquez, MICHAEL-MAHENDRA [address] [facility] 2, [facility] [address] [place] [address] 06/26/2025 1:20 PM EDT Appointment [facility] [address] [place] [address] 06/26/2025 2:00 PM EDT Office Visit [facility] [address] [facility] [address] [place] [address] Carmen Alvarez MD [address] [facility] Office [facility], [facility] [address] [place] [address] 07/18/2025 9:50 AM EDT Office Visit [address] [place] [address] Jesus Posey DO [address] [facility] 2, [facility] [address] [place] [address] documented as of this encounter Visit Diagnoses Not on filedocumented in this encounter Additional Health Concerns Assessment Noted Time A fall risk assessment has been complete d for the patient 03/10/2023 10:44 AM EST documented as of this encounter Care Teams Suture Winder Hand Relationship Specialty Start Date End Date Herlinda Velazquez, LINUX CONSULTANT-EXHIBIT CARPENTER [address] [place] [address] 2, [facility] [address] [place] [address] PCP - MMO Medicare Advantage PCP 12/20/22 03/21/24 Lee Mena DO [address] [place] [address] 2, [facility] [address] [place] [address] PCP - General Internal Medicine 02/24/23 10/04/23 Lee Mena [place] [address] PCP - General Internal Medicine 10/05/23 Carmen Alvarez MD [address] [facility] [place] [address] Diagnostic Assistant Electrophysiology 05/21/23 documented as of this encounter
--- OUTSIDE RECORDS SUMMARY | 2025-01-01 12:49 | XMS_ITS | Encounter Summary ---
Author Organization [facility] Address [address] [place] [address] Phone Care Team Providers Care Welfare Interviewer Name Role Phone Lee Mena DO Primary Care Provider Lee Mena DO Unavailable Herlinda Velazquez FIELD OPERATIONS MANAGER-ADMINISTRATIVE COORDINATOR Unavailable Lee Mena DO Primary Care Provider Carmen Alvarez MD Unavailable Lee Mena DO Primary Care Provider Encounter Details Date Type Department Care Team (Late st Contact Info) Description 08/20/2022 Orders Only [facility] LEGAC[facility] [address] [place] [address] Conversion, Onbase Social History Tobacco Use Types [...] Description 01/16/2025 9:30 AM EDT Office Visit [facility] [address] [facility] [address] [place] [address] Herlinda Velazquez, FIELD OPERATIONS MANAGER-ADMINISTRATIVE COORDINATOR [address] [facility] [address] [place] [address] 06/26/2025 1:20 PM EDT Appointment [facility] [address] [place] [facility] [place] [address] 06/26/2025 2:00 PM EDT Office Visit [facility] [address] [facility] [address] [place] [address] Carmen Alvarez MD [address] [facility] Office [facility], [facility] [address] [place] [address] 07/18/2025 9:50 AM EDT Office Visit [facility] 703 [facility] [address] [place] [address] Jesus Posey DO 703 [facility] 2, [facility] 250 [place] [address] Scheduled Orders Name Type Priority Associated Diagnoses Orde r Schedule OUTSIDE LAB SCAN Lab Ordered: 08/20/2022 OUTSIDE LAB SCAN Lab Ordered: 08/20/2022 documented as of this encounter Visit Diagnoses Not on filedocumented in this encounter Care Teams Welfare Interviewer Relationship Specialty Start Date End Date Lee Mena DO PCP - General 08/30/17 02/23/23 eLe Mena DO [facility] [place] [address] PCP - MMO Medicare Advantage PCP 07/20/22 12/19/22 Herlinda Velazquez APRN-ADMINISTRATIVE COORDINATOR [address] [place] [address] 2, [facility] 250 [place] [address] PCP - MMO Medicare Advantage PCP 12/20/22 03/21/24 Lee Mena DO [address] [place] [address] 2, [address] [place] [address] PCP - General Internal Medicine 02/24/23 10/04/23 Lee Mena DO [address] [place] [address] PCP - General Internal Medicine 10/05/23 Carmen Alvarez MD [address] [facility] [address] [place] [address] Hostel Parent Electrophysiology 05/21/23 documented as of this encounter
--- OUTSIDE RECORDS SUMMARY | 2025-01-01 12:49 | XMS_ITS | Clinical Summary ---
Author Organization [facility] Address [address] [place] [address], [address] [place] [address] Care Team Providers Care Fractionation Supervisor Name Role Phone Unavailable Primary Care Provider Unavailabl e Social History Tobacco Use Types Packs/Day Years Used Date Smoking Tobacco: Never Assessed Sex and Gender Information Value Date Recorded Sex Assigned at Not on file Legal Sex Male 3:43 PM EST Gender Identity Not on file Sexual Orientation Not on file Plan of Treatment Not on file
--- OUTSIDE RECORDS SUMMARY | 2025-01-01 12:49 | XMS_ITS | Encounter Summary ---
Author Organization [facility] Address [address] [place] [address] Phone Care Team Providers Care Geriatric Nurse Name Role Phone Lee Mena DO Primary Care Provider Lee Mena DO Unavailable [phone] Herlinda Velazquez BLADE SHARPENER-CORE WINDER MACHINE OPERATOR Unavailable Lee Mena DO Primary Care Provider Carmen Alvarez MD Unavailable Lee Mena DO Primary Care Provider Encounter Details Date Type Department Care Team (Late st Contact Info) Description 01/08/2021 Orders Only [facility] LEGACY [address] [place] [address] Conversion, Onbase Social History Tobacco Use Types [...] Description 01/16/2025 9:30 AM EDT Office Visit [facility] [address] [facility] [address] [place] [address] Herlinda Velazquez, BLADE SHARPENER-CORE WINDER MACHINE OPERATOR [address] [facility] [address], [address] [place] [address] 06/26/2025 1:20 PM EDT Appointment [facility] [address] [place] [facility] [place] [address] 06/26/2025 2:00 PM EDT Office Visit [facility] [address] [facility] [address] [place] [address] Carmen Alvarez MD [address] [facility] Office [address], [address] [place] [address] 07/18/2025 9:50 AM EDT Office Visit [facility] 703 [facility] 250 [place] [address] Jesus Posey DO 703 [facility] 2, [facility] [address] [place], [place] [address] Scheduled Orders Name Type Priority Associated Diagnoses Orde r Schedule OUTSIDE LAB SCAN Lab Ordered: 01/08/2021 documented as of this encounter Visit Diagnoses Not on filedocumented in this encounter Care Teams Geriatric Nurse Relationship Specialty Start Date End Date Lee Mena DO PCP - General 08/30/17 02/23/23 Lee Mena DO [facility] [place] [address] PCP - MMO Medicare Advantage PCP 07/20/22 12/19/22 Herlinda Velazquez, BLADE SHARPENER-CORE WINDER MACHINE OPERATOR [address] [facility] 2, [address] [place] [address] PCP - MMO Medicare Advantage PCP 12/20/22 03/21/24 Lee Mena DO [address] [place] [address] 2, [address] [place] [address] PCP - General Internal Medicine 02/24/23 10/04/23 Lee Mena DO [address] [place] [address] PCP - General Internal Medicine 10/05/23 Carmen Alvarez MD [address] [facility] [address], [address] [place] [address] Project Facilitator Electrophysiology 05/21/23 documented as of this encounter
--- OUTSIDE RECORDS SUMMARY | 2025-01-01 12:49 | XMS_ITS | Encounter Summary ---
Author Organization [facility] Address [address] [place] [address] Phone Care Team Providers Care Planer Operator / Grader Name Role Phone Herlinda Velazquez CABIN WORKER-X RAY EQUIPMENT MECHANIC Unavailable Lee Mena DO Primary Care Provider Carmen Alvarez MD Unavailable Lee Mena DO Primary Care Provider [phone] Encounter Details Date Type Department Care Team (Late st Contact Info) Description 06/24/2023 Patient Risk Score AC Care [facility] [address] [facility] [address] [place] [address] Social History Tobacco Use Types [...] Description 01/16/2025 9:30 AM EDT Office [facility] 703 [facility] [address] [place] [address] Herlinda Velazquez, CABIN WORKER-X RAY EQUIPMENT MECHANIC [address] [facility] 2, [address] [place] [address] 06/26/2025 1:20 PM EDT Appointment [facility] [address] [place] [facility] [place] [address] 06/26/2025 2:00 PM EDT Office Visit [facility] [address] [facility] [address] [place] [address] Carmen Alvarez MD [address] [facility] Medical Office [facility], [facility] 305 [place] [address] 07/18/2025 9:50 AM EDT Office Visit [facility] 703 [facility] 250 [place] [address] Jseus Posey DO 7[address] [facility] 2, [facility] 250 [place] [address] documented as of this encounter Visit Diagnoses Not on filedocumented in this encounter Additional Health Concerns Assessment Noted Time A fall risk assessment has been complete d for the patient 03/10/2023 10:44 AM EST documented as of this encounter Care Teams Planer Operator / Grader Relationship Specialty Start Date End Date Herlinda Velazquez APRN-X RAY EQUIPMENT MECHANIC [address] [facility] 2, [facility] [address] [place] [address] PCP - MMO Medicare Advantage PCP 12/20/22 03/21/24 Lee Mena DO 7[address] [facility] 2, [facility] 250 [place] [address] PCP - General Internal Medicine 02/24/23 10/04/23 Lee Mena DO [address] [place] [address] PCP - General Internal Medicine 10/05/23 Carmen Alvarez MD [address] [facility] [address], [address] [place] [id number] User Experience Analyst Electrophysiology 05/21/23 documented as of this encounter
--- OUTSIDE RECORDS SUMMARY | 2025-01-01 12:49 | XMS_ITS | Encounter Summary ---
Author Organization [facility] Address [address] [place] [address] Phone Care Team Providers Care Coin Teller Name Role Phone Lee Mena DO Primary Care Provider Lee Mena DO Unavailable [phone] Herlinda Velazquez BLANKING MACHINE OPERATOR-INTERFACE ANALYST Unavailable Lee Mena DO Primary Care Provider [phone] Carmen Alvarez MD Unavailable Lee Mena DO Primary Care Provider Encounter Details Date Type Department Care Team (Late st Contact Info) Description 10/28/2022 Scanned Document [facility] LE[facility] [address] [place] [address] Conversion, Onbase Social History Tobacco Use Types [...] Description 01/16/2025 9:30 AM EDT Office Visit [facility] [address] [facility] [address] [place] [address] Herlinda Velazquez, BLANKING MACHINE OPERATOR-INTERFACE ANALYST [address] [facility] [address], [address] [place] [address] 06/26/2025 1:20 PM EDT Appointment [facility] [address] [facility] [place] [address] 06/26/2025 2:00 PM EDT Office Visit [facility] [address] [facility] 320 [place] [address] Carmen Alvarez MD [address] [facility] Office [facility], [address] [place] [address] 07/18/2025 9:50 AM EDT Office Visit [facility] 703 [facility] 250 [place] [address] Jesus Posey DO 703 [facility] 2, [facility] 250 [place] [address] documented as of this encounter Procedures Procedure Name Priority Date/Time Associated Diagnosis Comments ECHOCARDIOGRAM 10/28/2022 documented in this encounter Results * ECHOCARDIOGRAM (10/28/2022) Narrative 10/28/2022 Ordered by an unspecified provider. us Onbase Conversion CV ECHO PROCEDURES Final Resul t documented in this encounter Visit Diagnoses Not on filedocumented in this encounter Care Teams Coin Teller Relationship Specialty Start Date End Date Lee Mena DO PCP - General 08/30/17 02/23/23 [place] [address] PCP - MMO Medicare Advantage PCP 07/20/22 12/19/22 Herlinda Velazquez, BLANKING MACHINE OPERATOR-INTERFACE ANALYST [address] [place] [address] 2, [facility] 250 [place] [address] PCP - MMO Medicare Advantage PCP 12/20/22 03/21/24 Lee Mena DO 703 [facility] 2, [address] [place] [address] PCP - General Internal Medicine 02/24/23 10/04/23 Lee Mena DO [facility]6 [place] [address] PCP - General Internal Medicine 10/05/23 Carmen Alvarez MD [address] [facility], [address] [place] [address] Tin Can Laborer Electrophysiology 05/21/23 documented as of this encounter
--- OUTSIDE RECORDS SUMMARY | 2025-01-01 12:49 | XMS_ITS | Encounter Summary ---
Author Organization [facility] Address [address] [place] [address] Phone Care Team Providers Care Chief Jailer Name Role Phone Lee Mena DO Primary Care Provider [phone] Lee Mena DO Unavailable [phone] Herlinda Velazquez TEST OPERATOR-DOCTORATE OF CHIROPRACTIC Unavailable Lee Mena DO Primary Care Provider [phone] Carmen Alvarez MD Unavailable Lee Mena DO Primary Care Provider Encounter Details Date Type Department Care Team (Late st Contact Info) Description 12/29/2020 Orders Only [facility] LE[facility]Y [address] [place] [address] Conversion, Onbase Social History Tobacco Use Types [...] Description 01/16/2025 9:30 AM EDT Office Visit [facility] 703 [facility] [address] [place] [address] Herlinda Velazquez, TEST OPERATOR-DOCTORATE OF CHIROPRACTIC [address] [facility] [address], [address] [place] [address] 06/26/2025 1:20 PM EDT Appointment [facility] [address] [place] [address] 06/26/2025 2:00 PM EDT Office Visit [facility] [address] [facility] 320 [place] [address] Carmen Alvarez MD [address] [facility] Office Bl, [address] [place] [address] 07/18/2025 9:50 AM EDT Office Visit [facility] 703 [facility] 250 [place] [address] Jesus Posey DO 703 [facility] 2, [facility] 250 [place], [place] [address] Scheduled Orders Name Type Priority Associated Diagnoses Orde r Schedule OUTSIDE LAB SCAN Lab Ordered: 12/29/2020 documented as of this encounter Visit Diagnoses Not on filedocumented in this encounter Care Teams Chief Jailer Relationship Specialty Start Date End Date Lee Mena DO PCP - General 08/30/17 02/23/23 Lee Mena DO [facility]6 [address] [place] [address] PCP - MMO Medicare Advantage PCP 07/20/22 12/19/22 Herlinda Velazquez, TEST OPERATOR-DOCTORATE OF CHIROPRACTIC 703 [facility] 2, [address] [place] [address] PCP - MMO Medicare Advantage PCP 12/20/22 03/21/24 Lee Mena DO [address] [place] [address] 2, [address] [place] [address] PCP - General Internal Medicine 02/24/23 10/04/23 Lee Mena DO [address] [place] [address] PCP - General Internal Medicine 10/05/23 Carmen Alvarez MD 125 [address] [facility] Bl, [address] [place] [address] Marketing Budget Analyst Electrophysiology 05/21/23 documented as of this encounter
--- OUTSIDE RECORDS SUMMARY | 2025-01-01 12:49 | XMS_ITS | Encounter Summary ---
Author Organization [facility] Address [address] [place] [address] Phone Care Team Providers Care Training Specialist Name Role Phone Lee Mena DO Primary Care Provider Lee Mena DO Unavailable Herlinda Velazquez ALGOLOGIST-CLAM PICKER Unavailable Lee Mena DO Primary Care Provider [phone] Carmen Alvarez MD Unavailable Lee Mena DO Primary Care Provider [phone] Encounter Details Date Type Department Care Team (Late st Contact Info) Description 11/24/2022 Orders Only [facility] LEGACY [address] [place] [address] Conversion, Onbase Social History Tobacco Use Types [...] Description 01/16/2025 9:30 AM EDT Office Visit [address] [place] [address] Herlinda Velazquez, ALGOLOGIST-CLAM PICKER 703 [facility] 2, [address] [place] [address] 06/26/2025 1:20 PM EDT Appointment [facility] [address] [place] [facility] [place] [address] 06/26/2025 2:00 PM EDT Office Visit [facility] 125 [address] [facility] 320 [place] [address] Carmen Alvarez MD 125 [address] [facility] Medical Office [facility], [facility] 305 [place] [address] 07/18/2025 9:50 AM EDT Office Visit [address] 250 [place] [address] Jesus Posey DO [address] [place] [address] 2, [facility] 250 [place] [address] Scheduled Orders Name Type Priority Associated Diagnoses Orde r Schedule OUTSIDE LAB SCAN Lab Ordered: 11/24/2022 documented as of this encounter Visit Diagnoses Not on filedocumented in this encounter Care Teams Training Specialist Relationship Specialty Start Date End Date Lee Mena DO PCP - General 08/30/17 02/23/23 Lee Mena [place] [address] PCP - MMO Medicare Advantage PCP 07/20/22 12/19/22 Herlinda Velazquez, ALGOLOGIST-CLAM PICKER [address] [place] [address] 2, [address] [place] [address] PCP - MMO Medicare Advantage PCP 12/20/22 03/21/24 Lee Mena DO [address] [place] [address] 2, [address] [place], [place] [address] PCP - General Internal Medicine 02/24/23 10/04/23 Lee Mena DO [address] [place] [address] PCP - General Internal Medicine 10/05/23 Carmen Alvarez MD 125 [address] [facility], [address] [place] [address] Parliamentary Archivist Electrophysiology 05/21/23 documented as of this encounter
--- OUTSIDE RECORDS SUMMARY | 2025-01-01 12:49 | XMS_ITS | Encounter Summary ---
Author Organization [facility] Address [address] [place] [address] Phone Care Team Providers Care Environmental Services Worker Name Role Phone Lee Mena DO Primary Care Provider [phone] Lee Mena DO Unavailable Herlinda Velazquez PSYCHIATRIC NURSE PRACTITIONER-MAILING JOGGER Unavailable Lee Mena DO Primary Care Provider Carmen Alvarez MD Unavailable Lee Mena DO Primary Care Provider Encounter Details Date Type Department Care Team (Late st Contact Info) Description 02/05/2021 Orders Only [facility] [address] [place] [address] Conversion, Onbase Social History Tobacco Use Types [...] EDT Office Visit [facility] 703 [facility] [address] [place] [address] Herlinda Velazquez, PSYCHIATRIC NURSE PRACTITIONER-MAILING JOGGER [address] [facility] [address], [address] [place] [address] 06/26/2025 1:[address] [facility] [address] [place] [facility] [place] [address] 06/26/2025 2:00 PM EDT Office Visit [facility] [address] [facility] 320 [place] [address] Carmen Alvarez MD 125 [address] [facility] Office Bl, [address] [place] [address] 07/18/2025 9:50 AM EDT Office Visit [facility] 703 [facility] 250 [place] [address] Jesus Posey DO 703 [facility] 2, [facility] 250 [place] [address] Scheduled Orders Name Type Priority Associated Diagnoses Orde r Schedule OUTSIDE LAB SCAN Lab Ordered: 02/05/2021 documented as of this encounter Visit Diagnoses Not on filedocumented in this encounter Care Teams Environmental Services Worker Relationship Specialty Start Date End Date Lee Mena DO PCP - General 08/30/17 02/23/23 Lee Mena DO [facility]6 [address] [place] [address] PCP - MMO Medicare Advantage PCP 07/20/22 12/19/22 Herlinda Velazquez, PSYCHIATRIC NURSE PRACTITIONER-MAILING JOGGER 703 [facility] 2, [address] [place] [address] PCP - MMO Medicare Advantage PCP 12/20/22 03/21/24 Lee Mena DO [address] [place] [address] 2, [address] [place] [address] PCP - General Internal Medicine 02/24/23 10/04/23 Lee Mena DO [address] [place] [address] PCP - General Internal Medicine 10/05/23 Carmen Alvarez MD [address] [facility] Bl, [address] [place] [address] Chemist Assistant Electrophysiology 05/21/23 documented as of this encounter
--- OUTSIDE RECORDS SUMMARY | 2025-01-01 12:49 | XMS_ITS | Encounter Summary ---
Author Organization [facility] Address [address] [place] [address] Phone Care Team Providers Care Diver Assistant Name Role Phone Lee Mena DO Primary Care Provider Lee Mena DO Unavailable Herlinda Velazquez POINT OF CARE TECHNICIAN-ARCHITECTURE PROFESSOR Unavailable Lee Mena DO Primary Care Provider Carmen Alvarez MD Unavailable Lee Mena DO Primary Care Provider Encounter Details Date Type Department Care Team (Late st Contact Info) Description 01/29/2021 Orders Only [facility] LEGACY [address] [place] [address] Conversion, Onbase Social History Tobacco Use Types [...] Office Visit [facility] 703 [facility] [address] [place] [address] Herlinda Velazquez, POINT OF CARE TECHNICIAN-ARCHITECTURE PROFESSOR 7[address] [facility] [address], [address] [place] [address] 06/26/2025 1:20 PM EDT Appointment [facility] [address] [place] [facility] [place] [address] 06/26/2025 2:00 PM EDT Office Visit [facility] 125 [address] [facility] 320 [place] [address] Carmen Alvarez MD 125 [address] [facility] Office Bl, [address] [place] [address] 07/18/2025 9:50 AM EDT Office Visit [facility] 703 [facility] 250 [place] [address] Jesus Posey DO 703 [facility] 2, [facility] 250 [place] [address] Scheduled Orders Name Type Priority Associated Diagnoses Orde r Schedule OUTSIDE LAB SCAN Lab Ordered: 01/29/2021 documented as of this encounter Visit Diagnoses Not on filedocumented in this encounter Care Teams Diver Assistant Relationship Specialty Start Date End Date Lee Mena DO PCP - General 08/30/17 02/23/23 Lee Mena DO [facility]6 [address] [place] [address] PCP - MMO Medicare Advantage PCP 07/20/22 12/19/22 Herlinda Velazquez, POINT OF CARE TECHNICIAN-ARCHITECTURE PROFESSOR 703 [facility] 2, [address] [place] [address] PCP - MMO Medicare Advantage PCP 12/20/22 03/21/24 Lee Mena DO [address] [place] [address] 2, [address] [place] [address] PCP - General Internal Medicine 02/24/23 10/04/23 Lee Mena DO [address] [place] [address] PCP - General Internal Medicine 10/05/23 Carmen Alvarez MD [address] [facility] Bl, [address] [place] [address] Laydown Machine Operator Electrophysiology 05/21/23 documented as of this encounter
--- OUTSIDE RECORDS SUMMARY | 2025-01-01 12:49 | XMS_ITS | Encounter Summary ---
Author Organization [facility] Address [address] [place] [address] Phone Care Team Providers Care Sonoscope Operator Name Role Phone Lee Mena DO Primary Care Provider Lee Mena DO Unavailable Herlinda Velazquez EQUALIZING SAW OPERATOR-FILM MAKER Unavailable Lee Mena DO Primary Care Provider Carmen Alvarez MD Unavailable Lee Mena DO Primary Care Provider Encounter Details Date Type Department Care Team (Late st Contact Info) Description 12/31/2020 Orders Only [facility] LE[facility] [address] [place] [address] Conversion, Onbase Social History Tobacco Use Types [...] Office Visit [facility] 703 [facility] [address] [place] [address] Herlinda Velazquez, EQUALIZING SAW OPERATOR-FILM MAKER [address] [facility] [address], [address] [place] [address] 06/26/2025 1:[address] [facility] [place] [address] [place] [facility] [place] [address] 06/26/2025 2:00 PM EDT Office Visit [facility] 125 [address] [facility] 320 [place] [address] Carmen Alvarez MD 125 [address] [facility] Office [facility] 305 [place] [address] 07/18/2025 9:50 AM EDT Office Visit [facility] 703 [facility] 250 [place] [address] Jesus Posey DO 703 [facility] 2, [facility] 250 [place] [address] Scheduled Orders Name Type Priority Associated Diagnoses Orde r Schedule OUTSIDE LAB SCAN Lab Ordered: 12/31/2020 OUTSIDE LAB SCAN Lab Ordered: 12/31/2020 documented as of this encounter Visit Diagnoses Not on filedocumented in this encounter Care Teams Sonoscope Operator Relationship Specialty Start Date End Date Lee Mena DO PCP - General 08/30/17 02/23/23 Lee Mena DO [facility]6 [place] [address] PCP - MMO Medicare Advantage PCP 07/20/22 12/19/22 Herlinda Velazquez APRN-FILM MAKER [address] [place] [address] 2, [facility] 250 [place] [address] PCP - MMO Medicare Advantage PCP 12/20/22 03/21/24 Lee Mena DO [address] [place] [address] 2, [address] [place] [address] PCP - General Internal Medicine 02/24/23 10/04/23 Lee Mena DO [address] [place] [address] PCP - General Internal Medicine 10/05/23 Carmen Alvarez MD [address] [facility] [address] [place] [address] Platform Attendant Electrophysiology 05/21/23 documented as of this encounter
--- OUTSIDE RECORDS SUMMARY | 2025-01-01 12:49 | XMS_ITS | Encounter Summary ---
Author Organization [facility] Address [address] [place] [address] Phone Care Team Providers Care Salvationist Name Role Phone Lee Mena DO Primary Care Provider Lee Mena DO Unavailable [phone] Herlinda Velazquez NETWORK PROGRAM MANAGER-LAND ACQUISITION MANAGER Unavailable Lee Mena DO Primary Care Provider Carmen Alvarez MD Unavailable Lee Mena DO Primary Care Provider [phone] Encounter Details Date Type Department Care Team (Late st Contact Info) Description 11/19/2022 Scanned Document [facility] LEGACY [address] [place] [address] Conversion, Onbase Social History Tobacco Use Types [...] 9:30 AM EDT [facility] 703 [facility] [address] [place] [address] Herlinda Velazquez, NETWORK PROGRAM MANAGER-LAND ACQUISITION MANAGER [address], [address] [place] [address] 06/26/2025 1:20 PM EDT Appointment [facility] [address] [place] [address] 06/26/2025 2:00 PM EDT [facility] 125 E [facility] 320 [place] [address] Carmen Alvarez MD 125 E [facility] Office [facility], [address] [place] [address] 07/18/2025 9:50 AM EDT Office [facility] 703 [facility] 250 [place] [address] Jesus Posey DO 703 [facility] 2, [facility] 250 [place] [address] documented as of this encounter Procedures Procedure Name Priority Date/Time Associated Diagnosis Comments ADULT CATH 11/19/2022 documented in this encounter Results * ADULT CATH (11/19/2022) Narrative 11/19/2022 Ordered by an unspecified provider. us Onbase Conversion CV CARDIAC CATH PROCEDURES Fin al Result documented in this encounter Visit Diagnoses Not on filedocumented in this encounter Care Teams Salvationist Relationship Specialty Start Date End Date Lee Mena DO PCP - General 08/30/17 02/23/23 [place] [address] PCP - MMO Medicare Advantage PCP 07/20/22 12/19/22 Herlinda Velazquez, NETWORK PROGRAM MANAGER-LAND ACQUISITION MANAGER [address] [place] [address] 2, [facility] 250 [place] [address] PCP - MMO Medicare Advantage PCP 12/20/22 03/21/24 Lee Mena DO 703 [facility] 2, [address] [place] [address] PCP - General Internal Medicine 02/24/23 10/04/23 Lee Mena DO [address] [place] [address] [place] [address] PCP - General Internal Medicine 10/05/23 Carmen Alvarez MD 125 E [facility], [address] [place] [address] Strapper And Buffer Electrophysiology 05/21/23 documented as of this encounter
--- OUTSIDE RECORDS SUMMARY | 2025-01-01 12:49 | XMS_ITS | Encounter Summary ---
Author Organization [facility] Address [address] [place] [address] Phone Care Team Providers Care Inorganic Chemistry Teacher Name Role Phone Lee Mena DO Primary Care Provider [phone] Lee Mena DO Unavailable Herlinda Velazquez BILLBOARD INSTALLER-COUNTER CHECKER Unavailable Lee Mena DO Primary Care Provider [phone] Carmen Alvarez MD Unavailable Lee Mena DO Primary Care Provider [phone] Encounter Details Date Type Department Care Team (Late st Contact Info) Description 09/23/2017 Orders Only [facility] LEGACY [address] [place] [address] Conversion, Onbase Social History Tobacco Use Types [...] 9:30 AM EDT Office Visit [facility] 703 [facility] [address] [place] [address] Herlinda Velazquez, BILLBOARD INSTALLER-COUNTER CHECKER [address], [address] [place] [address] 06/26/2025 1:20 PM EDT Appointment [facility] [address] [place] [facility] [place] [address] 06/26/2025 2:00 PM EDT Office Visit [facility] [address] [facility] 320 [place] [address] Carmen Alvarez MD 125 [address] [facility] Office Bl, [address] [place] [address] 07/18/2025 9:50 AM EDT Office Visit [facility] 703 [facility] 250 [place] [address] Jesus Posey DO 703 [facility] 2, [facility] 250 [place] [address] Scheduled Orders Name Type Priority Associated Diagnoses Orde r Schedule OUTSIDE LAB SCAN Lab Ordered: 09/23/2017 documented as of this encounter Visit Diagnoses Not on filedocumented in this encounter Care Teams Inorganic Chemistry Teacher Relationship Specialty Start Date End Date Lee Mena DO PCP - General 08/30/17 02/23/23 Lee Mena DO [facility]6 [place] [address] PCP - MMO Medicare Advantage PCP 07/20/22 12/19/22 Herlinda Velazquez, BILLBOARD INSTALLER-COUNTER CHECKER 703 [facility] 2, [address] [place] [address] PCP - MMO Medicare Advantage PCP 12/20/22 03/21/24 Lee Mena DO [address] [place] [address] 2, [address] [place] [address] PCP - General Internal Medicine 02/24/23 10/04/23 Lee Mena DO [address] [place] [place] [address] PCP - General Internal Medicine 10/05/23 Carmen Alvarez MD 125 [address] [facility] Office Bl, [address] [place] [address] Software Quality Engineer Electrophysiology 05/21/23 documented as of this encounter
--- OUTSIDE RECORDS SUMMARY | 2025-01-01 12:49 | XMS_ITS | Encounter Summary ---
Author Organization [facility] Address [address] [place] [address] Phone Care Team Providers Care Felt Hat Mellowing Machine Operator Name Role Phone Lee Mena DO Primary Care Provider [phone] Herlinda Velazquez APRN-MAHENDRA Unavailable Lee Mena DO Primary Care Provider [phone] Carmen Alvarez MD Unavailable Lee Mena DO Primary Care Provider [phone] Encounter Details Date Type Department Care Team ([facility] Contact Info) Description 02/21/2023 Patient Risk Score ACO Care Management [address] [place] [address] Social History Tobacco Use Types [...] suspected to have Coronavirus/COVID-19? No / Unsure 01/26/2023 1:17 PM EST documented as of this encounter Plan of Treatment Upcoming Encounters Date Type Department Care Team (Late Contact Info) Description 01/16/2025 9:30 AM EDT Office Visit [address] [place] [address] Herlinda Velazquez APRN-MAHENDRA 703 [facility] 2, [address] [place] [address] 06/26/2025 1:20 PM EDT Appointment [facility] [address] [place] [address] 06/26/2025 2:00 PM EDT Office Visit [facility] 125 E [facility] 320 [place] [address] Carmen Alvarez MD 125 [address] [facility] Medical Office Bl, [address] [place] [address] 07/18/2025 9:50 AM EDT Office Visit [address] 250 [place] [address] Jesus Posey DO [address] [place] [address] 2, [facility] 250 [place] [address] documented as of this encounter Visit Diagnoses Not on filedocumented in this encounter Additional Health Concerns Assessment Noted Time A fall risk assessment has been complete d for the patient 01/12/2023 4:22 PM EDT documented as of this encounter Care Teams Felt Hat Mellowing Machine Operator Relationship Specialty Start Date End Date Lee Mena DO PCP - General 08/30/17 02/23/23 Herlinda Velazquez APRN-MAHENDRA [address] [place] [address] 2, [address] [place] [address] PCP - MMO Medicare Advantage PCP 12/20/22 03/21/24 Lee Mena DO [address] [place] [address] 2, [address] [place] [address] PCP - General Internal Medicine 02/24/23 10/04/23 Lee Mena DO [address] [place] [address] PCP - General Internal Medicine 10/05/23 Carmen Alvarez MD [facility] [address] [place] [address] Tree Thinner Electrophysiology 05/21/23 documented as of this encounter
--- OUTSIDE RECORDS SUMMARY | 2025-01-01 12:49 | XMS_ITS | Encounter Summary ---
Author Organization [facility] Address [address] [place] [address] Phone Care Team Providers Care Spanish Speaking Babysitter Name Role Phone Lee Mena DO Primary Care Provider [phone] Lee Mena DO Unavailable Herlinda Velazquez APPLICATION TRAINER-PHYSICIST [employer] Unavailable Lee Mena DO Primary Care Provider Carmen Alvarez MD Unavailable Lee Mena DO Primary Care Provider Encounter Details Date Type Department Care Team (Late st Contact Info) Description 01/15/2021 Orders Only [facility] [address] [place] [address] Conversion, Onbase Social History Tobacco Use Types [...] Description 01/16/2025 9:30 AM EDT Office Visit [facility] [address] [facility] [address] [place] [address] Herlinda Velazquez, APPLICATION TRAINER-PHYSICIST [employer] [address] [facility] [address], [address] [place] [address] 06/26/2025 1:20 PM EDT Appointment [facility] [address] [facility] [place] [address] 06/26/2025 2:00 PM EDT Office Visit [facility] [address] [facility] [address] [place] [address] Carmen Alvarez MD [address] [facility] [address], [address] [place] [address] 07/18/2025 9:50 AM EDT Office Visit [facility] 703 [facility] 250 [place] [address] Jesus Posey DO 703 [facility] 2, [facility] [address] [place] [address] Scheduled Orders Name Type Priority Associated Diagnoses Orde r Schedule OUTSIDE LAB SCAN Lab Ordered: 01/15/2021 documented as of this encounter Visit Diagnoses Not on filedocumented in this encounter Care Teams Spanish Speaking Babysitter Relationship Specialty Start Date End Date Lee Mena DO PCP - General 08/30/17 02/23/23 Lee Mena DO [facility] [place] [address] PCP - MMO Medicare Advantage PCP 07/20/22 12/19/22 Herlinda Velazquez, APPLICATION TRAINER-PHYSICIST [employer] 703 [facility] 2, [address] [place] [address] PCP - MMO Medicare Advantage PCP 12/20/22 03/21/24 Lee Mena DO [address] [place] [address] 2, [address] [place] [address] PCP - General Internal Medicine 02/24/23 10/04/23 Lee Mena DO [address] [place] [address] PCP - General Internal Medicine 10/05/23 Carmen Alvarez MD [address] [facility] [address] [place] [address] Extrusion Die Coordinator Electrophysiology 05/21/23 documented as of this encounter
--- OUTSIDE RECORDS SUMMARY | 2025-01-01 12:49 | XMS_ITS | Encounter Summary ---
Author Organization [facility] Address [address] [place] [address] Phone Care Team Providers Care Property Field Adjuster Name Role Phone Herlinda Velazquez Rowan ROGERS Unavailable Lee Mena DO Primary Care Provider [phone] Carmen Alvarez MD Unavailable Lee Mena DO Primary Care Provider [phone] Encounter Details Date Type Department Care Team (Late st Contact Info) Description 05/24/2023 Patient Risk Score ACO Care Management [address] [place] [address] Social History Tobacco Use Types [...] suspected to have Coronavirus/COVID-19? No / Unsure 05/21/2023 12:11 PM EST documented as of this encounter Plan of Treatment Upcoming Encounters Date Type Department Care Team (Late st Contact Info) Description 01/16/2025 9:30 AM EDT Office Visit [facility] 703 [facility] 250 [place] [address] Herlinda Velazquez APRN-MAHENDRA 703 [facility] 2, [facility] 250 [place] [address] 06/26/2025 1:20 PM EDT Appointment [facility] [address] [place] [facility] [place] [address] 06/26/2025 2:00 PM EDT Office Visit [facility] [address] [facility] 320 [place] [address] Carmen Alvarez MD [address] [facility] Office [facility], [facility] 305 [place] [address] 07/18/2025 9:50 AM EDT Office Visit [address] [place] [address] Jesus Posey DO 703 [facility] 2, [facility] 250 [place] [address] documented as of this encounter Visit Diagnoses Not on filedocumented in this encounter Additional Health Concerns Assessment Noted Time A fall risk assessment has been complete d for the patient 03/10/2023 10:44 AM EST documented as of this encounter Care Teams Property Field Adjuster Relationship Specialty Start Date End Date Herlinda Velazquez, MICHAEL-FLOORWORKER DISTRIBUTOR [address] [place] [address] 2, [facility] 250 [place] [address] PCP - MMO Medicare Advantage PCP 12/20/22 03/21/24 Lee Mnea DO [address] [place] [address] 2, [facility] 250 [place] [address] PCP - General Internal Medicine 02/24/23 10/04/23 Lee Mena DO [facility] [place] [address] PCP - General Internal Medicine 10/05/23 Carmen Alvarez MD [address] [facility], [address] [place] [address] Dictaphone Technician Electrophysiology 05/21/23 documented as of this encounter
--- OUTSIDE RECORDS SUMMARY | 2025-01-01 12:49 | XMS_ITS | Encounter Summary ---
Author Organization [facility] Address [address] [place] [address] Phone Care Team Providers Care Copyholder Name Role Phone Herlinda Velazquez Rowan ROGERS Unavailable Lee Mena DO Primary Care Provider Carmen Alvarez MD Unavailable Lee Mena DO Primary Care Provider [phone] Encounter Details Date Type Department Care Team (Late st Contact Info) Description 03/24/2023 Scanned Document [facility] [address] [place] [id number] Scanning, Generic Provider Social History Tobacco Use [...] Description 01/16/2025 9:30 AM EDT Office Visit [facility] 703 [facility] 250 [place] [address] Herlinda Velazquez APRN-CNP 703 [facility] 2, [address] [place] [address] 06/26/2025 1:20 PM EDT Appointment [facility] [address] [place] [address] 06/26/2025 2:00 PM EDT Office Visit [facility] [address] [facility] 320 [place] [address] Carmen Alvarez MD 125 [address] [facility] Office [facility], [facility] 305 [place] [address] 07/18/2025 9:50 AM EDT Office Visit [place] [address] [facility] 250 [place] [address] Jesus Posey DO 703 [facility] 2, [facility] 250 [place] [address] Scheduled Orders Name Type Priority Associated Diagnoses Orde r Schedule PULMONARY FUNCTION TESTING PFT Ordered: 03/24/2023 documented as of this encounter Procedures Procedure Name Priority Date/Time Associated Diagnosis Comments OUTSIDE IMAGING SCAN 03/24/2023 documented in this encounter Results * OUTSIDE IMAGING SCAN (03/24/2023) Anatomical Region Laterality Modality Other Narrative 03/24/2023 Ordered by an unspecified provider. us Generic Provider Scanning OUTSIDE SCAN Final Result documented in this encounter Visit Diagnoses Not on filedocumented in this encounter Additional Health Concerns Assessment Noted Time A fall risk assessment has been complete d for the patient 03/10/2023 10:44 AM EST documented as of this encounter Care Teams Copyholder Relationship Specialty Start Date End Date Herlinda Velazquez APRN-CNP 703 [facility] 2, [address] [place] [address] PCP - MMO Medicare Advantage PCP 12/20/22 03/21/24 Lee Mena DO [address] [place] [address] 2, [address] [place], [place] [address] PCP - General Internal Medicine 02/24/23 10/04/23 Lee Mena DO [address] [place] [address] PCP - General Internal Medicine 10/05/23 Carmen Alvarez MD [address] [facility], [address] [place] [address] Senior Administrative Services Officer Electrophysiology 05/21/23 documented as of this encounter
--- OUTSIDE RECORDS SUMMARY | 2025-01-01 12:49 | XMS_ITS | Encounter Summary ---
Author Organization [facility] Address [address] [place] [address] Phone Care Team Providers Care Senior Administrator Support Name Role Phone Lee Mena DO Primary Care Provider [phone] Lee Mena DO Unavailable [phone] Herlinda Velazquez TERMINAL MAKE UP OPERATOR-TOPSTITCHER ZIGZAG Unavailable Lee Mena DO Primary Care Provider Carmen Alvarez MD Unavailable Lee Mena DO Primary Care Provider [phone] Encounter Details Date Type Department Care Team (Late st Contact Info) Description 11/27/2022 Scanned Document [facility] [address] [place] [address] Conversion, Onbase Social History Tobacco Use Types Packs/Day Years Used Date Smoking Tobacco: Never Assessed Sex and Gender Information Value Date Recorded Sex Assigned at Male 01/09/2023 11:58 AM EDT Legal Sex Male 8:00 PM EST Gender Identity Male 01/09/2023 11:58 AM EDT Sexual Orientation Not on file documented as of this encounter Functional Status * BP Answer Date of Assessment Author 122/60 11/30/2022 10:35 AM EDT Conversi on, [employer] Vitals * Pulse Answer Date of Assessment Author 59 11/30/2022 10:35 AM EDT Conversi on, [employer] Vitals * Little interest or pleasure in doing things Answer Date of Assessment Author Not at all 11/30/2022 10:35 AM EDT Conversi on, [employer] Vitals * Little interest or pleasure in doing things Answer Date of Assessment Author Not at all 11/30/2022 10:35 AM EDT Conversi on, [employer] Vitals documented as of this encounter Plan of Treatment Upcoming Encounters Date Type Department Care Team (Late st Contact Info) Description 01/16/2025 9:30 AM EDT Office Visit [address] [place] [address] Herlinda Velazquez, TERMINAL MAKE UP OPERATOR-TOPSTITCHER ZIGZAG 703 [facility] 2, [facility] 250 [place] [address] 06/26/2025 1:20 PM EDT Appointment [facility] [address] [place] [address] 06/26/2025 2:00 PM EDT Office Visit [facility] [address] [facility] 320 [place] [address] Carmen Alvarez MD [address] [facility] Office [facility], [facility] 305 [place] [address] 07/18/2025 9:50 AM EDT Office Visit [place] [address] [facility] 250 [place] [address] Jesus Posey DO 703 [facility] 2, [facility] 250 [place] [address] documented as of this encounter Procedures Procedure Name Priority Date/Time Associated Diagnosis Comments OUTSIDE GENERIC TESTING 11/27/2022 documented in this encounter Results * OUTSIDE GENERIC TESTING (11/27/2022) Anatomical Region Laterality Modality Other Narrative 11/27/2022 Ordered by an unspecified provider. us Onbase Conversion OUTSIDE SCAN Final Result documented in this encounter Visit Diagnoses Not on filedocumented in this encounter Care Teams Senior Administrator Support Relationship Specialty Start Date End Date Lee Mena DO PCP - General 08/30/17 02/23/23 Lee Mena DO [address] [place] [address] PCP - MMO Medicare Advantage PCP 07/20/22 12/19/22 Herlinda Velazquez APRN-TOPSTITCHER ZIGZAG 703 [facility] 2, [address] [place] [address] PCP - MMO Medicare Advantage PCP 12/20/22 03/21/24 Lee Mena DO 703 [facility] 2, [address] [place] [address] PCP - General Internal Medicine 02/24/23 10/04/23 Lee Mena DO [address] [place] [address] PCP - General Internal Medicine 10/05/23 Carmen Alvarez MD [address] [facility] [address], [address] [place] [address] Web Site Administrator Electrophysiology 05/21/23 documented as of this encounter
--- OUTSIDE RECORDS SUMMARY | 2025-01-01 12:49 | XMS_ITS | Encounter Summary ---
Author Organization [facility] Address [address] [place] [address] Phone Care Team Providers Care Garage Manager Name Role Phone Lee Mena DO Primary Care Provider [phone] Herlinda Velazquez APRN-MAHENDRA Unavailable Lee Mena DO Primary Care Provider [phone] Carmen Alvarez MD Unavailable Lee Mena DO Primary Care Provider [phone] Encounter Details Date Type Department Care Team ([facility] Contact Info) Description 01/22/2023 Patient Risk Score ACO Care Management [address] [place] [address] Social History Tobacco Use Types [...] suspected to have Coronavirus/COVID-19? No / Unsure 01/12/2023 3:53 PM EDT documented as of this encounter Plan of Treatment Upcoming Encounters Date Type Department Care Team (Late st Contact Info) Description 01/16/2025 9:30 AM EDT Office Visit [address] [place] [address] Herlinda Velazquez, MICHAEL-MAHENDRA 703 [facility] 2, [address] [place] [address] 06/26/2025 1:20 PM EDT Appointment [facility] [address] [place] [facility] [place] [address] 06/26/2025 2:00 PM EDT Office Visit [facility] [address] [facility] 320 [place] [address] Carmen Alvarez MD [address] [facility] Medical Office [address], [address] [place] [address] 07/18/2025 9:50 AM EDT Office Visit [address] [place] [address] Jesus Posey DO [address] [place] [address] 2, [facility] 250 [place] [address] documented as of this encounter Visit Diagnoses Not on filedocumented in this encounter Additional Health Concerns Assessment Noted Time A fall risk assessment has been complete d for the patient 01/12/2023 4:22 PM EDT documented as of this encounter Care Teams Garage Manager Relationship Specialty Start Date End Date Lee Mena DO PCP - General 08/30/17 02/23/23 Herlidna Velazquez, MICHAEL-MAHENDRA [address] [place] [address] 2, [facility] 250 [place] [address] PCP - MMO Medicare Advantage PCP 12/20/22 03/21/24 Lee Mena DO [address] [place] [address] 2, [address] [place] [address] PCP - General Internal Medicine 02/24/23 10/04/23 Lee Mena DO [address] [place] [address] PCP - General Internal Medicine 10/05/23 Carmen Alvarez MD [address] [facility], [address] [place] [address] Ditch Worker Electrophysiology 05/21/23 documented as of this encounter
--- OUTSIDE RECORDS SUMMARY | 2025-01-01 12:49 | XMS_ITS | Encounter Summary ---
Author Organization [facility] Address [address] [place] [address] Phone Care Team Providers Care Line And Frame Poler Name Role Phone Lee Mena DO Primary Care Provider Lee Mena DO Unavailable Herlinda Velazquez BUILDING SERVICES COORDINATOR-MUCK BOSS Unavailable Lee Mena DO Primary Care Provider Carmen Alvarez MD Unavailable Lee Mena DO Primary Care Provider [phone] Encounter Details Date Type Department Care Team (Late st Contact Info) Description 04/03/2021 Orders Only [facility] [address] [place] [address] Conversion, Onbase Social History Tobacco Use Types [...] Description 01/16/2025 9:30 AM EDT Office Visit [facility] 703 [facility] [address] [place] [address] Herlinda Velazquez, BUILDING SERVICES COORDINATOR-MUCK BOSS [address] [facility] [address], [address] [place] [address] 06/26/2025 1:20 PM EDT Appointment [facility] [address] [place] [address] 06/26/2025 2:00 PM EDT Office Visit [facility] [address] [facility] 320 [place] [address] Carmen Alvarez MD [address] [facility] Office [address], [address] [place] [address] 07/18/2025 9:50 AM EDT Office Visit [facility] 703 [facility] 250 [place] [address] Jesus Posey DO 703 [facility] 2, [facility] 250 [place], [place] [address] Scheduled Orders Name Type Priority Associated Diagnoses Orde r Schedule OUTSIDE LAB SCAN Lab Ordered: 04/03/2021 documented as of this encounter Visit Diagnoses Not on filedocumented in this encounter Care Teams Line And Frame Poler Relationship Specialty Start Date End Date Lee Mena DO PCP - General 08/30/17 02/23/23 Lee Mena DO [facility]6 [address] [place] [address] PCP - MMO Medicare Advantage PCP 07/20/22 12/19/22 Herlinda Velazquez, BUILDING SERVICES COORDINATOR-MUCK BOSS 703 [facility] 2, [address] [place] [address] PCP - MMO Medicare Advantage PCP 12/20/22 03/21/24 Lee Mena DO [address] [place] [address] 2, [address] [place] [address] PCP - General Internal Medicine 02/24/23 10/04/23 Lee Mena DO [address] [place] [address] PCP - General Internal Medicine 10/05/23 Carmen Alvarez MD [address] [facility] Bl, [address] [place] [address] Safe Deposit Clerk Electrophysiology 05/21/23 documented as of this encounter
--- OUTSIDE RECORDS SUMMARY | 2025-01-01 12:49 | XMS_ITS | Encounter Summary ---
Author Organization [facility] Address [address] [place] [address] Phone Care Team Providers Care Oncology Social Worker Name Role Phone Lee Mena DO Primary Care Provider Lee Mena DO Unavailable Herlinda Velazquez BIOMEDICAL ENGINEERING SUPERVISOR-COMMUNITY HEALTH DIRECTOR Unavailable Lee Mena DO Primary Care Provider Carmen Alvarez MD Unavailable Lee Mena DO Primary Care Provider Encounter Details Date Type Department Care Team (Late st Contact Info) Description 11/13/2022 Scanned Document [facility] [address] [place] [address] Conversion, Onbase Social History Tobacco Use Types [...] Office Visit [facility] 703 [facility] [address] [place] [address] Herlinda Velazquez, BIOMEDICAL ENGINEERING SUPERVISOR-COMMUNITY HEALTH DIRECTOR [address] [facility] [address], [address] [place] [address] 06/26/2025 1:20 PM EDT Appointment [facility] [address] [place] [place] [address] 06/26/2025 2:00 PM EDT Office Visit [facility] [address] [facility] 320 [place] [address] Carmen Alvarez MD [address] [facility] [address], [address] [place] [address] 07/18/2025 9:50 AM EDT Office Visit [facility] 703 [facility] 250 [place] [address] Jesus Posey DO 703 [facility] 2, [address] [place] [address] documented as of this encounter Procedures Procedure Name Priority Date/Time Associated Diagnosis Comments ELECTROCARDIOGRAM RHYTHM STRIP 11/13/2022 documented in this encounter Results * ELECTROCARDIOGRAM RHYTHM STRIP (11/13/2022) Narrative 11/13/2022 Ordered by an unspecified provider. us Onbase Conversion ECG ORDERABLES Final Result documented in this encounter Visit Diagnoses Not on filedocumented in this encounter Care Teams Oncology Social Worker Relationship Specialty Start Date End Date Lee Mena DO PCP - General 08/30/17 02/23/23 [place] [address] PCP - MMO Medicare Advantage PCP 07/20/22 12/19/22 Herlinda Velazquez, BIOMEDICAL ENGINEERING SUPERVISOR-COMMUNITY HEALTH DIRECTOR 703 [facility] 2, [address] [place] [address] PCP - MMO Medicare Advantage PCP 12/20/22 03/21/24 Lee Mena DO 703 [facility] 2, [address] [place] [address] PCP - General Internal Medicine 02/24/23 10/04/23 Lee Mena DO [address] [place] [address] [place] [address] PCP - General Internal Medicine 10/05/23 Carmen Alvarez MD [address] [facility], [address] [place] [address] Section Maintainer Electrophysiology 05/21/23 documented as of this encounter
--- OUTSIDE RECORDS SUMMARY | 2025-01-01 12:49 | XMS_ITS | Clinical Summary ---
Author Organization [facility] Address [address] [place] [address] Phone Care Team Providers Care Physician Advisor Name Role Phone Carmen Ha MD Unavailable [place] Mena DO Primary Care Provider [phone] Allergies No known active allergies Medications aspirin 81 mg EC tablet Take 1 tablet (81 mg) by mouth once daily. Active levETIRAcetam XR (Keppra XR) 750 mg tablet extended release 24 hr 24 hr tablet Take 1 tablet (750 mg) by mouth 2 times a day. Active nitroglycerin (Nitrostat) 0.[address] 1 tablet (0.4 mg) under the tongue every 5 minutes if needed for chest pain. 11/11/19 23 Active mirtazapine (Remeron) 30 mg tablet Take 1 tablet (30 mg) by mouth once daily at bedtime. 12/14/19 23 Active rOPINIRole (Requip) 0.5 mg tablet Take 1 tablet (0.5 mg) by mouth once daily at bedtime. 12/22/19 23 Active warfarin (Coumadin) 2 mg tabletIndications: Paroxysmal atrial fibrillation (Multi) Take 1 tablet (2 mg) by mouth see administration instructions. As directed by the [facility] coumadin clinic. Ok to resume at previous dose on 01/09/23 01/08/20 23 Active famotidine (Pepcid) 20 mg tablet Take 1 tablet (20 mg) by mouth 2 times a day. Active atorvastatin (Lipitor) 80 mg tabletIndications: Mixed hyperlipidemia Take 1 tablet (80 mg) by mouth once daily at bedtime. 90 tablet 3 05/15/19 25 026 Active furosemide (Lasix) 20 mg tabletIndications: Ischemic cardiomyopathy Take 1 tablet (20 mg) by mouth once daily. 90 tablet 3 05/15/19 25 026 Active isosorbide mononitrate ER (Imdur) 30 mg 24 hr tabletIndications: Atherosclerosis of [place] coronary artery of [place] heart without angina pectoris Take 1 tablet (30 mg) by mouth once daily. Do not crush or chew. 90 tablet 3 05/15/19 25 Active metoprolol succinate XL (Toprol-XL) 50 mg 24 hr tabletIndications: Paroxysmal atrial fibrillation (Multi),Ischemic cardiomyopathy,[place] hypertension Take 1 tablet (50 mg) by mouth once daily. 90 tablet 3 05/15/19 25 026 Active losartan (Cozaar) 25 mg tabletIndications: Ischemic cardiomyopathy,[place] d[place] hypertension Take 1 tablet (25 mg) by mouth once daily. 90 tablet 3 05/16/19 25 Active Ozempic 0.25 mg or 0.5 mg (2 mg/3 mL) pen injector Inject 0.5 mg under the skin 1 (one) time per week. 05/24/19 25 Active BD Ultra-Fine Micro Pen Needle 32 gauge x 1/4 needle 05/18/19 25 Active FreeStyle Sarah 2 Sensor kit USE DIRECTED to check BLOOD SUGAR 4-6 times DAILY 06/17/19 25 Active hyoscyamine 0.125 mg SL tablet 06/09/19 25 Active insulin glargine (Lantus U-100 Insulin) 100 unit/mL injection Inject under the skin once every 24 hours. Take as directed per insulin instructions. Active amiodarone (Pacerone) 200 mg tabletIndications: Paroxysmal atrial fibrillation (Multi) Take 1 tablet (200 mg) by mouth once daily. 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 Assessment & Plan (09/14/2023 9:34 AM EDT): Reviewed the merits of healthy lifestyle choices on overall cardiovascular health. Encounter for medication review and counseling 0 05/21/2023 Encounter to discuss treatment options Biventricular ICD (implantab le cardioverter-defibrillator) in place 01/12/2023 Assessment & Plan (10/06/2023 8:33 AM EDT): Jan 07, 2023: Fragoso DDHFA 500Q biV ICD March 2023 device interrogation BiV paced 98% Assessment & Plan (09/14/2023 9:31 AM EDT): Jan 07, 2023: Fragoso DDHFA 500Q biV ICD March 2023 device interrogation BiV paced 98% Assessment & Plan (01/13/2023 8:52 AM EDT): Jan 07, 2023: Fragoso DDHFA 500Q biV ICD Current every day smoker 01/09/2023 Assessment & Plan (10/05/2023 1:57 PM EDT): 1 pack per day 'working on quitting' No benefit nicoderm patches Continued every day tobacco use. Have reviewed the negative cardiovascular impact of nicotine. Continues to decline pharmacological assistance. Assessment & Plan (09/13/2023 11:54 AM EDT): 1 pack per day 'working on quitting' No benefit nicoderm patches Continued every day tobacco use. Have reviewed the negative cardiovascular impact of nicotine. Continues to decline pharmacological assistance. Assessment & Plan (01/13/2023 8:54 AM EDT): Continued every day tobacco use. Have reviewed the negative cardiovascular impact of nicotine. Continues to decline pharmacological assistance. Drug-induced constipation with proper administra tion 01/09/2023 Atherosclerosis of coronary artery of [place] heart without angina pectoris 12/30/2022 Assessment & Plan (10/06/2023 8:34 AM EDT): 2022 cardiac cath Newly occluded pAV CX/dCX/OM2 ELASTIC TAPE INSERTER RCA and SVG-RCA RAMIREZ-LAD patent Sequential free [id number] patent Current daily activity at 4 MET Assessment & Plan (09/14/2023 9:32 AM EDT): 2022 cardiac cath Newly occluded pAV CX/dCX/OM2 ELASTIC TAPE INSERTER RCA and SVG-RCA RAMIREZ-LAD patent Sequential free [id number] patent Current daily activity at 4 METS Has noted some increasing dyspnea on exertion Will add long-acting nitrates Assessment & Plan (01/13/2023 8:56 AM EDT): 2022 cardiac cath Newly occluded pAV CX/dCX/OM2 ELASTIC TAPE INSERTER RCA and SVG-RCA RAMIREZ-LAD patent Sequential free [id number] patent Dementia 12/30/2022 Coronary stent occlusion 12/30/2022 Diabetes mellitus (Multi) 12/30/2022 Assessment & Plan (09/14/2023 9:34 AM EDT): On ARB/statin Reports most recent hemoglobin A1c 9.6 GERD (gastroesophageal reflux disease) 3 H/O sick sinus syndrome 12/30/2022 History of CVA (cerebrovascular accident) 2022 Hyperlipidemia 12/30/2022 Assessment & Plan (10/06/2023 8:34 AM EDT): Today statin Assessment & Plan (09/14/2023 9:32 AM EDT): High intensity statin Reports had labs through his PCP earlier this year, will need to obtain Hypertension 12/30/2022 Assessment & Plan (09/14/2023 9:32 AM EDT): Optimal in office Ischemic cardiomyopathy 12/30/2022 Assessment & Plan (10/06/2023 8:33 AM EDT): DICM HFrEF 30-35% May 2023 TTE FC 2B- III Stage C GDMT: Toprol Entresto: unable to tolerate d/t hypotension Cozaar: to resume today Aldactone: presents off of treatment today (Mar 2023 K+ 5.) Jardiance: insurance would not cover Has BiV ICD May 2023 BiV optimization August 2023 device interrogation BiV paced 98% Assessment & Plan (09/14/2023 9:31 AM EDT): DICM HFrEF 30-35% May 2023 TTE FC [...] on exertion, nocturnal cough. Will add Lasix. Assessment & Plan (01/13/2023 8:54 AM EDT): ICM HFrEF 30-35% Oct 2022 cath FC II Stage C GDMT: Toprol Entresto: unable to tolerate d/t hypotension Cozaar: to resume today Aldactone Jardiance: insurance would not cover Paroxysmal atrial fibrillation (Multi) Assessment & Plan (10/06/2023 8:34 AM EDT): Maintaining sinus rhythm/AV paced on amiodarone Surveillance testing completed Mar 2023 [facility] VASc 7 anticoagulated on Coumadin Assessment & Plan (09/14/2023 9:33 AM EDT): Maintaining sinus rhythm/AV paced on amiodarone Surveillance testing completed Mar 2023 [facility] VASc 7 anticoagulated on Coumadin Assessment & Plan (01/13/2023 8:56 AM EDT): Maintaining sinus rhythm on amiodarone Surveillance testing completed July 2022 [facility] VASc 7 anticoagulated on Coumadin RBBB 12/30/2022 S/P CABG x 4 12/30/2022 Sleep apnea 12/30/2022 Status post angioplasty 12/30/2022 High risk medication use 12/30/2022 Assessment & Plan (09/14/2023 9:33 AM EDT): Amiodarone EKG in office maintaining sinus rhythm/AV paced, QTc 462 on amiodarone 200 mg daily. Surveillance testing completed March 2023 Congestive heart failure (Multi) 12/30/2022 LBBB (left bundle branch block) 12/30/2022 Dizziness and giddiness 02/08/2013 Resolved Problems Problem Noted Date Diagnosed Date Resolved Date technician terminal and repeater current use of ant icoagulant therapy 09/13/2023 01/12/2024 Assessment & Plan (10/06/2023 8:34 AM EDT): [id number] 7 chronically anticoagulated Coumadin DOACs cost prohibitive Assessment & Plan (09/14/2023 9:34 AM EDT): [id number] 7 chronically anticoagulated Coumadin DOACs cost prohibitive BMI 33.0-33.9,adult 01/12/2023 07/14/19 Assessment & Plan (01/13/2023 8:55 AM EDT): Reviewed the merits of healthy lifestyle choices on overall cardiovascular health. 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 12/30/2022 01/12/2024 Tobacco use disorder 08/16/2009 024 Immunizations Immunization Administration Dates Next Due Flu vaccine, trivalent, pres ervative free, age 6 months and greater (Fluarix/Fluzone/Flulaval) 01/07/2015 Influenza, Seasonal, Quadriv alent, Adjuvanted 02/20/2022 Influenza, Unspecified 03/22/2018,2017,12/21/2016,12/20,12/22/2013,03/22/2011,03/22/2010 ,03/22/2009,03/22/2008 Influenza, seasonal, injectable 12/21/19,03/22/2019,12/09/2016,01/23 Pneumococcal conjugate vacci ne, 13-valent (PREVNAR 13) 12/20/2017,01/07/2015 Pneumococcal polysaccharide vaccine, 23-valent, age 2 years and older (PNEUMOVAX 23) 02/27/2022,03/22/2018 Tdap vaccine, age 7 year and older (BOOSTRIX, ADACEL) 05/31/2017 Family History Medical History Relation Name Comments Cancer Brother Armando Pancreatic cancer Brother Armando Heart attack Father Manolo Bone cancer Mother Ashlee Cancer Mother Ashlee Cancer Sister Heart attack Sister Ovarian cancer Sister Relation Name Status Comments Brother Armando Father Manolo Mother Ashlee Sister Social History Tobacco Use Types Packs/Day Years Used Date Smoking Tobacco: Every Day Cigarettes 1 45 Smokeless Tobacco: Never Tobacco Cessation:Ready to Q uit: Not Asked; Counseling Given: Not Answered Alcohol Use Standard Drinks/Week Comments Yes 2 (1 standard drink = 0.6 oz pur e alcohol) occasssional Sex and Gender Information Value Date Recorded Sex Assigned at Male 01/09/2023 11:58 AM EDT Legal Sex Male 8:00 PM EST Gender Identity Male 01/09/2023 11:58 AM EDT Sexual Orientation Not on file Last Filed Vital Signs Vital Sign Reading Time Taken Comments Blood Pressure 90/52 07/13/2024 10:58 AM EDT Pulse 74 07/13/2024 10:58 AM EDT Temperature 36.7 C (98 F) 01/12/2023 4:22 PM EDT Respiratory Rate 18 01/07/2023 2:15 PM EDT Oxygen Saturation 93% 01/07/2023 2:15 PM EDT Inhaled Oxygen Concentration - - Weight 102 kg (224 lb) 07/13/2024 10:58 AM EDT Height 177.8 cm (5' 10 ) 07/13/2024 10:58 AM EDT Body Mass Index 32.14 07/13/2024 10:58 AM EDT Plan of Treatment Upcoming Encounters Date Type Department Care Team ([facility] st Contact Info) Description 01/16/2025 9:30 AM EDT Office Visit [address] [phone] Herlinda Velazquez, CANTEEN MANAGER-BAR MACHINE OPERATOR [address] [facility] [address] [place] [address] 06/26/2025 1:20 PM EDT Appointment [facility] [address] [place] [address] 06/26/2025 2:00 PM EDT Office Visit [facility] [address] [facility] [address] [place] [address] Carmen Ha MD [address] [facility] Office [facility] [place] [address] 07/18/2025 9:50 AM EDT Office Visit [facility] [address] [facility] [address] [place] [address] Jesus Posey, [address] [facility] [address] [place] [address] Health Maintenance Due Date Last Done Comments CT Colonography 1955 Colonoscopy 1955 Colorectal Cancer Screening 1955 Diabetes: Urine Protein Screening 1955 FIT-DNA (Cologuard) 1955 FIT 1955 Sigmoidoscopy 1955 TSH Level 1955 MMR Vaccines (1 of 1 - Standard series) 1958 Hepatitis C Screening 1975 Lung Cancer Screening 2007 PSA Prostate Cancer Screening 2007 Zoster Vaccines (1 of 2) 2007 RSV High Risk: (Elderly (60+) or Population) (1 - Risk 60-74 years 1-dose series) 2017 Diabetes: Hemoglobin A1C 12/05/2017 09/04/2017 Lipid Panel 09/05/2018 09/05/2017, 08/20, 08/16/2009 Abdominal Aortic Aneurysm (AAA) Screening 2022 Creatinine Level 01/08/2024 01/07/2023, , 09/15/2017, Additional history exists Potassium Level 01/08/2024 01/07/2023, 06/10/2017, 09/15/2017, Additional history exists Medicare Annual Wellness Visit (AWV) 08/02/2024 08/02/2023, 07/07/2022 Echocardiogram 08/23/2024 08/24/2023, 08/0 11/2022, 10/28/2022, Additional history exists COVID-19 Vaccine ( season) 2024 Influenza Vaccine (#1) 2024 , 12/21/2023, 01/05/2023, Additional history exists Diabetes: Retinopathy Screening 08/26/2025 08/27/2023 DTaP/Tdap/Td Vaccines (2 - Td or Tdap) 06/01/2027 05/31/2017, 05/31/2017, 05/31/2017, Additional history exists Pneumococcal Vaccine Completed 02/27/2022, 12/31/2020, 12/29/2020, Additional history exists Welcome to Medicare Visit Discontinued 08/02/2023, HIB Vaccines Aged Out No longer eligi ble based on patient's age to complete this topic HPV Vaccines Aged Out No longer eligi ble based on patient's age to complete this topic Hepatitis A Vaccines Aged Out No long er eligible based on patient's age to complete this topic Hepatitis B Vaccines Aged Out No long er eligible based on patient's age to complete this topic IPV Vaccines Aged Out No longer eligi ble based on patient's age to complete this topic Meningococcal Vaccine Aged Out No ander lori eligible based on patient's age to complete this topic Rotavirus Vaccines Aged Out No longer eligible based on patient's age to complete this topic Medical Devices Implanted Type Area Community Mental Health Worker Device Identifier Shelf Expiration Date Model / Serial / Lot Cardiac Pacemaker Cardiac Pacemaker Left: Chest Durata T, Active Single Coil, Df4, 65cm - [id number] Implanted:Qty: 1 on 01/07/2023 by Carmen Ha MD at [facility] Cardiac Pacemaker Left: Chest [employer] [id number] 11/19/2025 7122Q/65 / [id number] / [id number] Catheter, Carrie Tran Mdl 6250v, 45cm - [id number] Implanted:Qty: 1 on 01/07/2023 by Carmen Ha MD at [facility] Cardiac Pacemaker Left: Chest [employer] [id number] 02/09/2024 6250V-45 S / / [id number] Pacing Lead, Quartet 86cm, Model 1458q Lv, Multi Site, Ventricular - [id number] Implanted:Qty: 1 on 01/07/2023 by Carmen Ha MD at [facility] Cardiac Pacemaker Left: Chest [employer] [id number] 08/19/2025 1458Q/86 / [id number] / [id number] Defibrillator, Supervisor Cutting [employer] Boning-D, [place] Hf - [id number] Implanted:Qty: 1 on 01/07/2023 by Carmen Ha MD at [facility] Cardiac Pacemaker Left: Chest [employer] [id number] 10/19/2024 [id number] Q / [id number] / [id number] Slitter, [place] Ii - [id number] Implanted:Qty: 1 on 01/07/2023 by Carmen Ha MD at [facility] Heart Valve [employer] 05/19/2024 [id number] / / [id number] Procedures Procedure Name Priority Date/Time Associated Diagnosis Comments TRANSTHORACIC ECHO (TTE) LIMITED Routine 08/24/2023 1:45 PM EDT Shortness of breath BASIC METABOLIC PANEL STAT 01/07/2023 7:59 AM EDT LIPID PANEL Routine 09/05/2017 12:34 AM EDT HEMOGLOBIN A1C Routine 09/04/2017 5:20 AM EDT from Last 3 Months or Most Recently Relevant to Health Maintenance Results * TRANSTHORACIC ECHO (TTE) LIMITED (08/24/2023 1:45 PM EDT) [facility] Signature AV mn grad 3.0 mmHg SYNGO AV pk wiliam 1.02 m/s SYNGO LV Biplane EF 39 % SYNGO LVOT diam 2.00 cm SYNGO MV E/A ratio 0.68 SYNGO MV avg E/e' ratio 7.70 SYNGO RVSP 12.4 mmHg SYNGO LVIDd 5.10 cm SYNGO Aortic Valve Area by Continuity of Peak Velocity 2.45 cm2 SYNGO AV pk grad 4.2 mmHg SYNGO Aortic Valve Area by Continuity of VTI 1.93 cm2 SYNGO LV A4C EF 35.5 SYNGO 08/24/2023 12:2 7 PM EDT Narrative [facility] - 08/26/2023 11:41 AM EDT [address], [address], [place] [address] TRANSTHORACIC ECHOCARDIOGRAM REPORT Patient Name: LESLEY ROD Reading Physician: [id number] Errol Huber MD Study Date: 08/24/2023 Ordering Provider: [id number] CARMEN HA MRN/PID: [id number] Fellow: Nurse: Date of /Age: 11 1955 Oracle Engineer: Lesley Zuniga years Gender: M Additional Staff: Height: 175.26 cm Admit Date: 08/24/2023 Weight: 109.32 kg Admission Status: Outpatient BSA / BMI: 2.24 m2 / 35.59 Department Location: [facility] kg/[address] Blood Pressure: 120 /60 mmHg Study Type: TRANSTHORACIC ECHO (TTE) COMPLETE Diagnosis/ICD: Shortness of breath-R06.02 Indication: SOB CPT Codes: Echo Limited-49492 Patient History: Smoker: Current. Diabetes: Yes Pacer/Defib: [...] 95 msec (>120ms) PV Max Wiliam: 0.7 m/s (0.6-0.9m/s) PV Max P.9 mmHg Pulmonary Veins: PulmV A Revs Dur: 113.00 msec PulmV A Revs Wiliam: 32.00 cm/s PulmV Clements Wiliam: 40.70 cm/s PulmV S/D Wiliam: 1.10 PulmV Sys Wiliam: 46.80 cm/s [id number] Errol Huber MD Electronically signed on 08/26/2023 at 11:41:41 AM Final Procedure Note Errol Huber MD - 08/26/[address], [address] [address] TRANSTHORACIC ECHOCARDIOGRAM REPORT Patient Name: LESLEY ROD Reading Physician: [id number] Huber MD Study Date: 08/24/2023 Ordering Provider: [id number] CARMEN HACKETT MRN/PID: [id number] Fellow: Nurse: Date of /Age: 11 1955 Oracle Engineer: Himanshu years Gender: M Additional Staff: Height: 175.26 cm Admit Date: 08/24/2023 Weight: 109.32 kg Admission Status: Outpatient BSA / BMI: 2.24 m2 / 35.59 Department Location: [facility] kg/m2 [facility] Blood Pressure: 120 /60 mmHg Study Type: TRANSTHORACIC ECHO (TTE) COMPLETE Diagnosis/ICD: Shortness of breath-R06.02 Indication: SOB CPT Codes: Echo Limited-47913 Patient History: Smoker: Current. Diabetes: Yes Pacer/Defib: AICD Pertinent History: CHF, COPD, HTN, Hyperlipidemia and SOB, Stent, SSS,CVA, RBBB, CABG, High risk med use, LBBB. Study Detail: The following Echo studies were performed: 2D, M-Mode,Doppler and color flow. The patient was awake. PHYSICIAN INTERPRETATION: Left Ventricle: Left ventricular systolic function is severely decreased,with an estimated ejection fraction of 30-35%. There is global hypokinesisof the left ventricle with minor regional variations. The left ventricularcavity size is mildly dilated. Abnormal (paradoxical) septal motion,consistent with RV pacemaker. Spectral Doppler shows an impairedrelaxation pattern of left ventricular diastolic filling. AV & VVoptimization study with final settings of: LV to RV by 40 ms, paced AV delay = 200 ms and sensed AV delay = 150 ms. Left Atrium: The left atrium is mildly dilated. Right Ventricle: The right ventricle is normal in size. There is normalright ventricular global systolic function. Right Atrium: The right atrium is normal in size. Aortic Valve: The aortic valve was not well visualized. There is noevidence of aortic valve regurgitation. The peak instantaneous gradient ofthe aortic valve is 4.2 mmHg. The mean gradient of the aortic valve is 3.0mmHg. Mitral Valve: The mitral valve is mild to moderately thickened. There ismild mitral valve regurgitation. Tricuspid Valve: The tricuspid valve was not well visualized. There ismild tricuspid regurgitation. Pulmonic Valve: The pulmonic valve is not well visualized. There is noindication of pulmonic valve regurgitation. Pericardium: There is a trivial pericardial effusion. Aorta: The aortic root is normal. CONCLUSIONS: 1. Left ventricular systolic function is severely decreased with a 30- 35%estimated ejection fraction. 2. Poorly visualized anatomical structures due to suboptimal imagequality. 3. Abnormal septal motion consistent with RV pacemaker. 4. AV & VV optimization study with final settings of: LV to RV by 40 ms, paced AV delay = 200 ms and sensed AV delay = 150ms. 5. Spectral Doppler shows an impaired relaxation pattern of leftventricular diastolic filling. 6. When compared to prior study from October 2022, the ejection fractionremains essentially unchanged. 7. There is global hypokinesis of the left ventricle with minor regionalvariations. QUANTITATIVE DATA SUMMARY: 2D MEASUREMENTS: Normal Ranges: [...] 95 msec (>120ms) PV Max Wiliam: 0.7 m/s (0.6-0.9m/s) PV Max P.9 mmHg Pulmonary Veins: PulmV A Revs Dur: 113.00 msec PulmV A Revs Wiliam: 32.00 cm/s PulmV Clements Wiliam: 40.70 cm/s PulmV S/D Wiliam: 1.10 PulmV Sys Wiliam: 46.80 cm/s [id number] Errol Huber MD Electronically signed on 08/26/2023 at 11:41:41 AM Final us Carmen Ha MD CV ECHO PROCEDURES Final Result [facility] * (ABNORMAL) Basic Metabolic Panel (01/07/2023 7:59 AM EDT) Glucose 224(H) 74 - 99 mg/dL LAB CHEMISTRY METHOD 01/07/2023 8:46 AM EDT [facility] Sodium 135(L) 136 - 145 mmol/L LAB CHEMISTRY METHOD 01/07/2023 8:46 AM EDT [facility] Potassium 4.6 3.5 - 5.3 mmol/L LAB CHEMISTRY METHOD 01/07/2023 8:46 AM EDT [facility] Chloride 103 98 - 107 mmol/L LAB CHEMISTRY METHOD 01/07/2023 8:46 AM EDT [facility] Bicarbonate 26 21 - 32 mmol/L LAB CHEMISTRY METHOD 01/07/2023 8:46 AM EDT [facility] Anion Gap 11 10 - 20 mmol/L LAB CHEMISTRY METHOD 01/07/2023 8:46 AM EDT [facility] Urea Nitrogen 27(H) 6 - 23 mg/dL LAB CHEMISTRY METHOD 01/07/2023 8:46 AM EDT [facility] Creatinine 1.47(H) 0.50 - 1.30 mg/dL LAB CHEMISTRY METHOD 01/07/2023 8:46 AM EDT [facility] eGFR 53(L) >60 mL/min/1. 73m*2 LAB CHEMISTRY METHOD 01/07/2023 8:46 AM EDT [facility] Comment: Calculations of estimated GFR are performed using the 2020 CKD-EPI Study Refit equation without the race variable for the IDMS-Traceable creatinine methods. https://jasn.asnjournals.org/content/early//ASN.9263707631 Calcium 9.0 8.6 - 10.3 mg/dL LAB CHEMISTRY METHOD 01/07/2023 8:46 AM EDT [facility] Blood Venous blood specimen / Unknown Venipuncture / Unknown 01/07/2023 7:59 AM EDT 01/07/2023 8:23 AM EDT Holli Jaeger CANTEEN MANAGER-BAR MACHINE OPERATOR LAB BLOOD ORDERABLES Fin al Result [facility] [address] [place] [address] * (ABNORMAL) Lipid Panel (09/05/2017 12:34 AM EDT) Cholesterol 144 0 - 199 mg/dL [facility] Comment: . AGE DESIRABLE BORDERLINE HIGH HIGH 0-19 Y 0 - 169 170 - 199 >/= 200 20-24 Y 0 - 189 190 - 224 >/= 225 >24 Y 0 - 199 200 - 239 >/= 240 All ranges are based on fasting samples. Specific therapeutic targets will vary based on patient-specific cardiac risk. . Pediatric guidelines reference:Pediatrics 2011, 128(S5). Adult guidelines reference: NCEP ATPIII Guidelines, ENEIDA 2001, 258:2486-97 . Venipuncture immediately after or during the administration of Metamizole may lead to falsely low results. Testing should be performed immediately prior to Metamizole dosing. HDL 27.9(A) mg/dL [facility] Comment: . AGE VERY LOW LOW NORMAL HIGH 0-19 Y < 35 < 40 40-45 ---- 20-24 Y ---- < 40 >45 ---- >24 Y ---- < 40 40-60 >60 . Cholesterol/HDL Ratio 5.2(A) [facility] Comment: REF VALUES DESIRABLE < 3.4 HIGH RISK > 5.0 LDL 77 0 - 99 mg/dL [facility] Comment: . NEAR BORD AGE DESIRABLE OPTIMAL HIGH HIGH VERY HIGH 0-19 Y 0 - 109 --- 110-129 >/= 130 ---- 20-24 Y 0 - 119 --- 120-159 >/= 160 ---- >24 Y 0 - 99 100-129 130-159 160-189 >/=190 . VLDL 40 0 - 40 mg/dL [facility] Triglycerides 198(H) 0 - 149 mg/dL [facility] Comment: . AGE DESIRABLE BORDERLINE HIGH HIGH VERY HIGH 0 D-90 D 19 - 174 ---- ---- ---- 91 D- 9 Y 0 - 74 75 - 99 >/= 100 ---- 10-19 Y 0 - 89 90 - 129 >/= 130 ---- 20-24 Y 0 - 114 115 - 149 >/= 150 ---- >24 Y 0 - 149 150 - 199 200- 499 >/= 500 . Venipuncture immediately after or during the administration of Metamizole may lead to falsely low results. Testing should be performed immediately prior to Metamizole dosing. 09/05/2017 12:3 4 AM EDT 09/05/2017 6:04 AM EDT Diana Noguera CANTEEN MANAGER-BAR MACHINE OPERATOR LAB BLOOD ORDERABLES Final Result [facility] * Hemoglobin A1C (09/04/2017 5:20 AM EDT) Hemoglobin A1C 9.0 % [facility] Comment: Diagnosis of Diabetes-Adults Non-Diabetic: < or = 5.6% Increased risk for developing diabetes: 5.7-6.4% Diagnostic of diabetes: > or = 6.5% . Monitoring of Diabetes Age (y) Therapeutic Goal (%) Adults: >18 <7.0 Pediatrics: 13-18 <7.5 7-12 <8.0 0- 6 7.5-8.5 [place] [employer]. Diabetes Care 33(S1), Mar 2009. Estimated Average Glucose 212 MG/DL [facility] 09/04/2017 5:20 AM EDT 09/04/2017 5:58 AM EDT us Lorrie Barnes MD LAB BLOOD ORDERABLES Final Resul t [facility] from Last 3 Months or Most Recently Relevant to Health Maintenance Insurance [facility] MEDICARE ADVANTAGE [facility] MEDICARE ADVANTAGE Advance Directives For more information, please contact: [phone] (Available ) * Full Code (Latest Code Status on File) Date Activated Date Inactivated Comments 01/07/2023 7:45 AM 01/07/2023 7:02 PM Question Answer Comments Plan of Care: Code Status Discussion Not Compl eted Decision Maker: Provider Rationale: Patient condition does not warra nt discussion Care Teams Physician Advisor Relationship Specialty Start Date End Date Lee Mena DO [address] [place] [address] PCP - General Internal Medicine 10/05/23 Carmen Ha MD [address] [facility] [address] [place] [address] Desulfurizer Machine Electrophysiology 05/21/23
--- OUTSIDE RECORDS SUMMARY | 2025-01-01 12:49 | XMS_ITS | Encounter Summary ---
Author Organization [facility] Address [address] [place] [address] Phone Care Team Providers Care Sustainability Communicator Name Role Phone Lee Mena DO Primary Care Provider Herlinda Velazquez HEAD OF IT-CLERICAL WAREHOUSE WORKER Unavailable Lee Mena DO Primary Care Provider [phone] Carmen Alvarez MD Unavailable Lee Mena DO Primary Care Provider [phone] Encounter Details Date Type Department Care Team (Late st Contact Info) Description 12/22/2022 Patient Risk Score [facility]CO Care Management [address] [place] [address] Social History Tobacco Use Types [...] Description 01/16/2025 9:30 AM EDT Office Visit [facility] [address] [facility] [address] [place] [address] Herlinda Velazquez, HEAD OF IT-CLERICAL WAREHOUSE WORKER [address] [place] [address] 06/26/2025 1:20 PM EDT Appointment [facility] [address] [place] [facility] [place] [address] 06/26/2025 2:00 PM EDT Office Visit [facility] [address] [facility] [address] [place] [address] Carmen Alvarez MD [address] [facility] [address] [place] [address] 07/18/2025 9:50 AM EDT Office Visit [facility] [address] [facility] [address] [place] [address] Jesus Posey DO [address] [facility] [address] [place] [address] documented as of this encounter Visit Diagnoses Not on filedocumented in this encounter Care Teams Sustainability Communicator Relationship Specialty Start Date End Date Lee Mena DO PCP - General 08/30/17 02/23/23 Herlinda Velazquez APRN-CLERICAL WAREHOUSE WORKER [address] [place] [address] [address], [address] [place] [address] PCP - MMO Medicare Advantage PCP 12/20/22 03/21/24 Lee Mena DO [address] [facility] [address] [place] [address] PCP - General Internal Medicine 02/24/23 10/04/23 Lee Mena DO [address] [place] [address] PCP - General Internal Medicine 10/05/23 Carmen Alvarez MD [address] [facility] [address] [place] [phone] Product Marketing Manager Electrophysiology 05/21/23 documented as of this encounter
--- OUTSIDE RECORDS SUMMARY | 2025-01-01 12:49 | XMS_ITS | Encounter Summary ---
Author Organization [facility] Address [address] [place] [address] Phone Care Team Providers Care Tape Cutting Machine Operator Name Role Phone Lee Mena DO Primary Care Provider Lee Mena DO Unavailable [phone] Herlinda Velazquez TIE TAMPER-ADVANCED MANUFACTURING VICE PRESIDENT Unavailable Lee Mena DO Primary Care Provider Carmen Alvarez MD Unavailable Lee Mena DO Primary Care Provider [phone] Encounter Details Date Type Department Care Team (Late st Contact Info) Description 11/25/2022 Scanned Document [facility] [address] [place] [address] Conversion, Onbase Social History Tobacco Use Types [...] Description 01/16/2025 9:30 AM EDT Office Visit [place] [id number] [facility] [address] [place] [address] Herlinda Velazquez, TIE TAMPER-ADVANCED MANUFACTURING VICE PRESIDENT [address] [facility] [address], [address] [place] [address] 06/26/2025 1:[address] [facility] [address] [place] [facility] [place] [address] 06/26/2025 2:00 PM EDT Office Visit [facility] [address] [facility] [address] [place] [address] Carmen Alvarez MD [address] [facility] [address] [place] [address] 07/18/2025 9:50 AM EDT Office Visit [facility] [address] [facility] [address] [place] [address] Jesus Posey DO [address] [facility] [address], [address] [place] [address] documented as of this encounter Procedures Procedure Name Priority Date/Time Associated Diagnosis Comments ELECTROCARDIOGRAM RHYTHM STRIP 11/25/2022 documented in this encounter Results * ELECTROCARDIOGRAM RHYTHM STRIP (11/25/2022) Narrative 11/25/2022 Ordered by an unspecified provider. us Onbase Conversion ECG ORDERABLES Final Result documented in this encounter Visit Diagnoses Not on filedocumented in this encounter Care Teams Tape Cutting Machine Operator Relationship Specialty Start Date End Date Lee Mena DO PCP - General 08/30/17 02/23/23 [place] [address] PCP - MMO Medicare Advantage PCP 07/20/22 12/19/22 Herlinda Velazquez APRN-ADVANCED MANUFACTURING VICE PRESIDENT [address] [facility] [address] [place] [address] PCP - MMO Medicare Advantage PCP 12/20/22 03/21/24 Lee Mena DO [address] [facility] [address], [address] [place] [address] PCP - General Internal Medicine 02/24/23 10/04/23 Lee Mena DO [address] [place] [place] [address] PCP - General Internal Medicine 10/05/23 Carmen Alvarez MD [address] [facility] [place] [address] Calendering Machine Operator Electrophysiology 05/21/23 documented as of this encounter
--- OUTSIDE RECORDS SUMMARY | 2025-01-01 12:50 | XMS_ITS | Encounter Summary ---
Author Organization [facility] Address [address] [place] [address] Care Team Providers Care Ultrasound Supervisor Name Role Phone Unavailable Primary Care Provider Unavailabl e Source Comments In the event this information is protected by the Federal Confidentiality of Alcohol and Drug AbusePatient Records regulations: The Federal rules restrict any use of the information to criminally investigate or prosecute any alcohol or drug abuse patient.[facility] Encounter Details Date Type Department Care Team (Late st Contact Info) Description 12/29/2024 Telephone [facility] [address] [phone] Leandro Miller, [place] [address] [place] [address] Social History Tobacco Use Types Packs/Day Years [...] is lower risk 9 12/13/2024 Data from: https://www.neighborhoodatlas.medicine.[facility]/. Last address used for calculation [address] 12/13/2024 Sex and Gender Information Value Date Recorded Sex Assigned at Not on file Legal Sex Male 9:01 AM EST Gender Identity Not on file Sexual Orientation Not on file documented as of this encounter Miscellaneous Notes * Telephone Encounter - Leandro Miller MS - 12/29/2024 1:56 PM EDT Results left on patient voicemail. Kashif Rod's Multi-Cancer panel through [employer] was negative for a pathogenic variant. Please see [employer] message for further discussion. Leandro Miller MS, [facility] Licensed, Certified Genetic Counselor documented in this encounter Plan of Treatment Not on file documented as of this encounter Visit Diagnoses Not on filedocumented in this encounter
--- OUTSIDE RECORDS SUMMARY | 2025-01-01 12:50 | XMS_ITS | Encounter Summary ---
Author Organization [facility] Address [address] [place] [address] Care Team Providers Care Ic Design Manager Name Role Phone Unavailable Primary Care Provider Unavailabl e Source Comments In the event this information is protected by the Federal Confidentiality of Alcohol and Drug AbusePatient Records regulations: The Federal rules restrict any use of the information to criminally investigate or prosecute any alcohol or drug abuse patient.[facility] Encounter Details Date Type Department Care Team (Late st Contact Info) Description 12/19/2024 Results Follow-Up [facility] [address] [phone] Leandro Miller, [place] [address] [place] [address] Social History Tobacco Use Types [...] is lower risk 9 12/13/2024 Data from: https://www.neighborhoodatlas.medicine.[facility].edu/. Last address used for calculation [address] [...]
--- OUTSIDE RECORDS SUMMARY | 2025-01-01 12:50 | XMS_ITS | Encounter Summary ---
Author Organization [facility] Address [address] [place] [address] Care Team Providers Care Hatchery Supervisor Name Role Phone Unavailable Primary Care Provider Unavailabl e Source Comments In the event this information is protected by the Federal Confidentiality of Alcohol and Drug AbusePatient Records regulations: The Federal rules restrict any use of the information to criminally investigate or prosecute any alcohol or drug abuse patient.[facility] Encounter Details Date Type Department Care Team (Late st Contact Info) Description 12/13/2024 Patient Msg [facility] [address] [phone] Provider, Roma Please Read: Genetic Testing Information Social History Tobacco Use Types Packs/Day Years [...] is lower risk 9 12/13/2024 Data from: https://www.neighborhoodatlas.medicine.[facility].edu/. Last address used for calculation [address] [facility] 12/13/2024 Sex and Gender Information Value Date Recorded Sex Assigned at Not on file Legal Sex Male 9:01 AM EST Gender Identity Not on file Sexual Orientation Not on file documented as of this encounter Plan of Treatment Not on file documented as of this encounter Visit Diagnoses Not on filedocumented in this encounter
--- OUTSIDE RECORDS SUMMARY | 2025-01-01 12:50 | XMS_ITS | Encounter Summary ---
Author Organization [facility] Address [address] [place] [address] Care Team Providers Care Heater Helper Name Role Phone Unavailable Primary Care Provider Unavailabl e Source Comments In the event this information is protected by the Federal Confidentiality of Alcohol and Drug AbusePatient Records regulations: The Federal rules restrict any use of the information to criminally investigate or prosecute any alcohol or drug abuse patient.[facility] Encounter Details Date Type Department Care Team (Latest Contact Info) Description 12/06/2024 H&P External-NonCCF Provider, External, PA-C Do not enter address information under generic External Provider. Social History Tobacco Use Types Packs/Day Years [...]
--- OUTSIDE RECORDS SUMMARY | 2025-01-01 12:50 | XMS_ITS | Encounter Summary ---
Author Organization [facility] Address [address] [place] [address] Care Team Providers Care Steel Manager Name Role Phone Unavailable Primary Care Provider Unavailabl e Source Comments In the event this information is protected by the Federal Confidentiality of Alcohol and Drug AbusePatient Records regulations: The Federal rules restrict any use of the information to criminally investigate or prosecute any alcohol or drug abuse patient.[facility] Encounter Details Date Type Department Care Team (Late st Contact Info) Description 12/19/2024 Patient Msg [facility] [address] [phone] Leandro Miller, [place] [address] [place], [place] [phone] Genetic Test Result Social History Tobacco Use Types Packs/Day Years [...] is lower risk 9 12/13/2024 Data from: https://www.neighborhoodatlas.medicine.[facility].edu/. Last address used for calculation [address] [...]
--- OUTSIDE RECORDS SUMMARY | 2025-01-01 12:55 | XMS_ITS | CCD ---
Author Organization [facility] Care Team Providers Care Park Maintenance Technician Name Role Phone Lee Segovia Unavailable Unavailable Unavailable DO Lee Segovia Primary Care Provider [phone] DO Lesley Cooper Attending Provider DO Lee Segovia Primary Care Provider DO Lesley Cooper Attending Provider [phone] DO Franck Posey Attending Provider Lee Segovia Unavailable DR LEE SEGOVIA Primary Care Unavailable BALL, DR HOWARD Consulting Unavailable BALL, DR HOWARD Admitting Unavailable BALL, DR HOWARD Attending Unavailable BALL, DR HOWARD Primary Care Unavailable FAWANGELO, SHAIKH Shi Attending Unavailable FAWANGELO, ZARCO H Admitting Unavailable BALL, DR HOWARD [...] Care Unavailable BENEDICT, DR CHRISTIAN Admitting Unavailable FAWANGELO, ZARCO H Attending Unavailable BALL, DR HOWARD Primary Care Unavailable FAWANGELO, ZARCO H Admitting Unavailable FAWWAD, ZARCO H [...] Attending Provider DO Lesley Cooper Attending Provider [phone] Delroy Mcleod Unavailable JESUS POSEY Attending Unavailable Rajesh, Dr. Lee Jones Primary Care Rigo Segovia, DO Howard Primary Care Provider DO Franck Posey Attending Provider DO Lee Segovia Primary Care Provider DO Lesley Cooper Attending Provider Marcus, Ms. Ivania Calabrese Attending Rigo Velazquez, Ms. Ivania Calabrese Referring Rigo Segovia, Dr. Lee Jones Primary Care Carmen Sharma Attending Unavailable Marcus, Ms. Ivania Calabrese Referring Unadentoni lynn Segovia, Dr. Lee Jones Primary Care Rgio Segovia, Dr. Lee Jones Primary Care Rigo Posey, Jesus Attending Unavailable Rajesh, Dr. Lee Jones Primary Care Rigo Segovia, Dr. Lee Jones Primary Care Rigo Posey, Jesus Attending Unavailable Jesus Posey Referring Unavailable Rajesh, Dr. Lee Jones Primary Care Rigo Velazquez, MsJohn Paul Calabrese Attending Rigo Velazquez, MsJohn Paul Calabrese Referring Rigo bailey Rajesh, Dr. Lee Jones Primary [facility] Nathalyvai lable Rajesh DO, Lee Jones Primary Care Provider Lee Segovia DO Unavailable DO Lee Segovia Primary Care Provider DO Franck Posey Attending Provider [phone] Marcus POCKET CUTTER-VIDEO GAME CREATOR, Ivania Donahue Unavailable Lee Segovia DO Primary Care Provider Carmen Ha MD Unavailable Lee Segovia DO Primary Care Provider Lee Segovia DO Primary Care Provider Lee Segovia MD Primary Care Provider Lee Segovia DO Primary Care Provider [phone] Lee Segovia DO Other Provider Franck Posey DO Attending Provider [phone] JESUS POSEY Referring Unavailable LEE SEGOVIA Primary Care Unavailable Lee Segovia MD Unavailable Carmen Ha MD Unavailable CARMEN HA Referring Unavailable LEE SEGOVIA Primary Care Unavailable CARMEN HA Referring Unavailable LEE SEGOVIA Primary Care Unavailable CARMEN HA Referring Unavailable LEE SEGOVIA Primary Care Unavailable Lee Segovia DO Primary Care Provider [phone] Lee Segovia DO Other Provider Franck Posey DO Attending Provider Franck Posey Admitting Unavailable Franck Posey Attending Unavailable Ball, Lee Primary Care Unavailable Ball, Lee Primary Care Unavailable Ball, Lee Consulting Unavailable Franck Posey Admitting Unavailable Franck Posey Attending Unavailable IVANIA VELAZQUEZ Attending Unavailable KALPESH, JESUS S Referring Unavailable BALL, LEE E Primary Care Unavailable IVANIA VELAZQUEZ Attending Unavailable MARCUS, IVANIA Donahue Referring Unavailable BALL, LEE E Primary Care Unavailable CARMEN HA Attending Unavailable BALL, LEE E Primary Care Unavailable KALPESH, JESUS S Attending Unavailable KALPESH, JESUS S Referring Unavailable BALL, LEE E Primary Care Unavailable CARMEN HA Attending Unavailable BALL, LEE E Primary Care Unavailable KALPESH, JESUS S Attending Unavailable KALPESH, JESUS S Referring Unavailable BALL, LEE E Primary Care Unavailable Ball DO, Lee E Primary Care Provider Ball DO, Lee E Unavailable Ball DO, Lee Primary Care Provider Maris Gracia Attending Provider Unavailable Lee Segovia DO Attending Provider [phone] PetNany villalba DO Unavailable LOLIS MCNULTY Attending Unavailable PETZNNANY GREEN Attending Unavailable GINO DOW Attending Unavailable PETNANY VILLALBA Attending Unavailable PETZNNANY GREEN Attending Unavailable MARCELLA OLIVO Attending Unavailable DARREL LUCIA Attending Unavailable PETZNPETER, NANY Okeefe Attending Unavailable JERZY URBANO Attending Unavailable BALL, LEE E Referring Unavailable Allergies Allergy Classification Reported Allergen(s) Allergy Type Date of Onset Reaction(s) Facility (20 sources) Angiotensin Converting Enzyme (Jenny) Inhibitors; Translations: [JENYN Inhibitors] Allergy to drug (finding) 3 Other [facility] Repository (3 sources) patient allergy list reviewed by nurse or physicia Propensity to adverse reactions 5 Comment:Done [facility] Other (14 sources) Angiotensin-con verting enzyme inhibitor agent Drug Allergy 3 Other [facility] (18 sources) Angiotensin-con verting enzyme inhibitor agent Drug Allergy 3 Other [facility] Healthcare Medications Current Medications Medication Drug Class(es) Dates [...] tablet by mouth once daily at bedtime Amiodarone 200 mg Tablet Active 200 MG PO Daily at bedtime December 14, 2017 12:00am Complies with drug therapy Amiodarone HCl N ot-Taking Aspir-81 81 MG [...] Daily at bedtime November 13, 2022 12:00am Complies with drug therapy Aspirin 81 MG TA BS TAKE 1 TABLET DAILY. Quantity: 0 Refills: 0 Ordered: 16-Apr-2021 DO Active atorvastatin 80 mg oral tablet (20 sources) HMG-CoA Reductase Inhibitor Start: 12-31-2020 End: 05-15-2025 take 1 tablet by mouth once daily at bedtime Atorvastatin 80 mg tablet Active 80 MG PO Daily at bedtime November 13, 2022 8:37am Complies with drug therapy Start: 02-19-2017 End: 07-01-2017 take 1 tablet by mouth once daily in the evening Atorvastatin 40 mg Tablet Discontinued 40 MG PO Every evening February 19, 2017 1:00am July 01, 2017 2:36pm cefuroxime 500 mg oral tablet (14 sources) Cephalosporin Antibacterial Start: 07-30-2018 take 1 tablet by mouth every twelve hours ciprofloxacin 3 mg/ml ophthalmic solution (2 sources) Quinolone Antimicrobial Start: 11-09-2024 take 1 drop(s) into the eye(s) four times daily Ciprofloxacin Hcl 0.3 % drops Active 1 DROPS EYE-BOTH Four times daily 5 7 November 09, 2024 12:00am Complies with drug therapy Continuous Glucose Sensor (FreeStyle Marita 3 Plus Sensor) [facility] (4 sources) Start: 07-13-2024 Continuous Glucose Sensor (FreeStyle Marita 3 Plus Sensor) [facility] Indications: Type 2 diabetes mellitus with other circulatory complications (HCC) 1 each See administration instructions 6 each 3 07/13/2024 Active Start: 07-13-2024 Continuous Glu cose Sensor (FreeStyle Marita 3 Plus Sensor) [facility] Indications: Type 2 diabetes mellitus with other circulatory complications 1 each See administration instructions 6 each 3 07/13/2024 Active Dexcom (11 sources) Start: 05-01-2023 Dexcom Active 0 .Route .[facility] May 01, 2023 12:00am Use to test home BS Tranacutaneous 4-6x daily Start: 05-01-2023 Dexcom Active 0 .Route .[facility] May 01, 2023 1:00am Use to test home BS Tranacutaneous 4-6x daily Start: 05-01-2023 Dexcom Active 0 .ROUTE .[facility] May 01, 2023 12:00am Use to test home BS Tranacutaneous 4-6x daily Dexcom 7 (6 sources) Start: 02-21-2023 Dexcom 7 Use t o test home BS Tranacutaneous 4-6x daily for 30 days Feb, Active famotidine 20 mg oral tablet (20 sources) Histamine-2 Receptor Antagonist Start: 05-16-2024 take 1 tablet by mouth twice daily Famotidine 20 mg tablet Active 20 MG PO Twice daily 180 90 May 16, 2024 1:56pm Complies with drug therapy Start: 12-24-2023 End: 05-16-2024 Famotidine 20 mg tablet Disc ontinued 0 .ROUTE .COMPLEX 180 December 24, 2023 10:47am May 16, 2024 2:01pm TAKE 1 TABLET TWICE A DAY Start: 08-23-2019 End: 12-24-2023 take 1 tablet by mouth twice daily Famotidine 20 mg Tablet Discontinued 20 MG PO Twice daily August 23, 2019 12:00am December 24, 2023 10:47am take 1 tablet by ramez once daily Famotidine 20 MG Oral Tablet TAKE 1 TABLET EVERY 12 HOURS DAILY. Quantity: 0 Refills: 0 Ordered: 14-Jul-2022 DO Active Flash Glucose Sensor (Freest yle Marita 2 Sensor) kit (10 sources) Start: 05-16-2024 Flash Glucose Sensor (Freestyle Marita 2 Sensor) kit Active 0 .ROUTE .COMPLEX 2 May 16, 2024 12:23pm USE DIRECTED to test BLOOD SUGAR 4-6 times DAILY Start: 05-16-2024 Flash Glucose Sensor (Freestyle Marita 2 Sensor) kit Active 0 .ROUTE .COMPLEX 2 May 16, 2024 11:23am USE DIRECTED to test BLOOD SUGAR 4-6 times DAILY Start: 02-14-2024 End: 05-16-2024 Flash Glucose Sensor (Freest yle Marita 2 Sensor) kit Discontinued 0 .ROUTE .COMPLEX 2 February 14, 2024 9:42am May 16, 2024 12:23pm USE DIRECTED to test BLOOD SUGAR 4-6 times DAILY Start: 02-14-2024 End: 05-16-2024 Flash Glucose Sensor (Freest yle Marita 2 Sensor) kit Discontinued 0 .ROUTE .COMPLEX 2 February 14, 2024 8:42am May 16, 2024 11:23am USE DIRECTED to test BLOOD SUGAR 4-6 times DAILY Start: 02-14-2024 Flash Glucose Sensor (Freestyle Marita 2 Sensor) kit Active 0 .ROUTE .COMPLEX 2 February 14, 2024 8:42am USE DIRECTED to test BLOOD SUGAR 4-6 times DAILY FreeStyle Marita 2 [place] - (8 sources) Start: 2023 FreeStyle Libr e 2 [place] - Use to test home BS 4-6x daily transcutaneous 4-6x daily for 365 days Jan, Active FreeStyle Marita 2 Sensor - (8 sources) Start: 2023 FreeStyle Libr e 2 Sensor - Use to test home BS 4-6x daily transcutaneous 4-6x daily for 30 days Jan, Active FreeStyle Marita 2 Sensor kit (3 sources) Start: 06-16-2024 FreeStyle Libr e 2 Sensor kit USE DIRECTED to check BLOOD SUGAR 4-6 times DAILY 06/16/2024 Active hyoscyamine sulfate 0.125 mg sublingual tablet (13 sources) Start: 06-08-2024 hyoscyamine 0. 125 mg SL tablet 06/08/2024 Active Start: 05-03-2024 End: 08-08-2024 take 1 tablet under the tongue once daily as needed for diarrhea Hyoscyamine Sulfate 0.125 mg tablet, sublingual Discontinued 0.125 MG SUBLINGUAL daily as needed for abdominal cramping, diarrhea 90 90 May 16, 2024 1:57pm August 08, 2024 10:23am 3 ml insulin glargine 100 un t/ml pen injector (20 sources) Insulin Analog Start: 12-04-2024 Start: 12-04-2024 End: 12-04-2024 Insulin Glargine (Lantus Angela ostar U-100 Insulin) 100 unit/mL (3 mL) insulin pen Discontinued 27 UNIT SUBCUT Twice daily December 04, 2024 11:02am December 04, 2024 11:03am Start: 11-28-2024 inject 27 [IU] by ya bcutaneous injection once daily insulin glargine (Lantus) 100 UNIT/ML injection Inject 27 Units under the skin Daily 15 mL 3 11/28/2024 Active Start: 08-28-2024 End: 11-28-2024 inject 30 [IU] by subcutaneous injection once daily insulin glargine (Lantus) 100 UNIT/ML injection Inject 30 Units under the skin Daily 15 mL 3 08/28/2024 11/28/2024 Discontinued (Dose adjustment) Start: 06-26-2024 End: 08-28-2024 inject 35 [IU] by subcutaneous injection once daily insulin glargine (Lantus) 100 UNIT/ML injection Inject 35 Units under the skin Daily 15 mL 3 06/26/2024 08/28/2024 Discontinued (Dose adjustment) Start: 05-23-2024 End: 06-26-2024 inject 40 [IU] by subcutaneous injection once daily insulin glargine (Lantus) 100 UNIT/ML injection Inject 40 Units under the skin Daily 15 mL 3 05/23/2024 06/26/2024 Discontinued (Dose adjustment) Start: 01-26-2024 End: 12-04-2024 Insulin Glargine (Lantus Angela ostar U-100 Insulin) 100 unit/mL (3 mL) insulin pen Discontinued 22 UNIT SUBCUT Twice daily 45 90 May 16, 2024 1:57pm December 04, 2024 11:02am insulin glargine (Lantus U-100 Insulin) 100 unit/mL injection Inject under the skin once every 24 hours. Take as directed per insulin instructions. Active End: 05-23-2024 inject 25 [IU] by subcutaneous injection twice daily at bedtime insulin glargine (Lantus) 100 UNIT/ML injection Inject under the skin at bedtime 25 units bid 05/23/2024 Discontinued (Dose adjustment) 3 ml insulin lispro 50 unt/ml / insulin lispro protamine, human 50 unt/ml pen injector (16 sources) Insulin Analog End: 07-13-2024 insulin lispro protamin-lispro (HumaLOG Mix 50-50 KwikPen) 100 unit/mL (50-50) injection Inject under the skin 2 times a day with meals. Take as directed per insulin instructions. 07/13/2024 Discontinued (Discontinued by another clinician) Insulin Lispro 100 unit/mL insulin pen (3 sources) Start: 05-18-2024 inject 1 dose by subcutaneous injection once daily before mealtime Insulin Lispro 100 unit/mL insulin pen Active 1 sliding scale dose SUBCUT 3x/Day before meals 60 90 May 18, 2024 10:11am He is using insulin tid before meals. Maximum amount per day is estimated to be 60u Start: 05-17-2024 End: 05-18-2024 inject 1 dose by subcutaneous injection once before mealtime Insulin Lispro 100 unit/mL insulin pen Discontinued 1 sliding scale dose SUBCUT 3x/Day before meals May 17, 2024 2:14pm May 18, 2024 10:13am Start: 05-17-2024 inject 1 dose by sub cutaneous injection once before mealtime Insulin Lispro 100 unit/mL insulin pen Active 1 sliding scale dose SUBCUT 3x/Day before meals May 17, 2024 1:14pm levETIRAcetam 750 mg oral tablet (20 sources) Start: 08-19-2017 End: 10-09-2024 take 1 tablet by mouth twice daily Levetiracetam 750 mg tablet Active 750 MG PO Twice daily 180 October 09, 2024 2:04pm Complies with drug therapy Start: 02-19-2017 End: 08-19-2017 Levetiracetam 500 mg Tablet Discontinued 750 MG PO Twice daily 60 February 19, 2017 1:00am August 19, 2017 11:56am Start: 02-19-2017 End: 08-19-2017 take 750 mg [...] by mouth 2 times a day. Active levETIRAcetam (K eppra) 750 MG tablet every 12 (twelve) hours Active take 1 tablet by ramez th every twelve hours Keppra 750 MG 1 tablet Orally every 12 hrs Active methylPREDNISolone 4 mg oral tablet (20 sources) Corticosteroid Start: 09-30-2022 Medrol 4 MG as directed Orally Sep, Active mirtazapine 30 mg oral tablet (20 sources) Start: 05-16-2024 take 1 tablet by mouth once daily at bedtime Mirtazapine 30 mg tablet Active 30 MG PO Daily at bedtime May 16, 2024 1:59pm Complies with drug therapy Start: 11-10-2023 End: 05-16-2024 Mirtazapine 30 mg tablet Discontinued 0 .ROUTE .COMPLEX May 08, 2024 8:43am May 16, 2024 2:01pm TAKE 1 TABLET DAILY AT BEDTIME Start: 11-13-2022 End: 11-10-2023 take 1 tablet by mouth once daily at bedtime Mirtazapine 30 mg tablet Discontinued 30 MG PO Daily at bedtime May 04, 2023 1:27pm November 10, 2023 7:39am nitroglycerin 0.4 mg sublingual tablet (20 sources) Nitrate Vasodilator Start: 05-16-2024 take 1 tablet under the tongue once as needed for pain Nitroglycerin 0.4 mg tablet, sublingual Active 0.4 MG SUBLINGUAL Once as needed for chest pain 100 90 May 16, 2024 1:59pm Complies with drug therapy Start: 07-08-2023 End: 05-16-2024 Nitroglycerin 0.4 mg tablet, sublingual Discontinued 0 .ROUTE .COMPLEX 100 July 08, 2023 2:37pm May 16, 2024 2:01pm DISSOLVE 1 TABLET UNDER THE TONGUE NEEDED FOR CHEST PAIN Start: 07-08-2023 Nitroglycerin Active 0 .ROUTE .COMPLEX 100 July 08, 2023 2:37pm DISSOLVE 1 TABLET UNDER THE TONGUE NEEDED FOR CHEST PAIN Start: 09-01-2017 End: 09-03-2017 apply 0.2 mg topically every hour Nitroglycerin 0.2 mg /hr patch 24 hour Discontinued 0.2 mg/hr TOPICAL Daily September 01, 2017 [...] per 24-hour period Start: 02-18-2017 End: 07-08-2023 Nitroglycerin 0.4 mg Tablet, Sublingual Discontinued 0.4 MG SUBLINGUAL Q5M as needed for Chest Pain December 31, 2020 12:00am July 08, 2023 2:38pm 0.4 mg sublingually under the tongue every 5 minutes up to 3 doses as needed for chest pain Nitroglycerin 0. 4 MG 1 tablet Sublingual PRN chest pain for 90 days Active Nitroglycerin 0. 4 MG Sublingual Tablet Sublingual Quantity: 0 Refills: 0 Ordered: 30-Nov-2022 DO Active ofloxacin 3 mg/ml ophthalmic solution (14 sources) Quinolone Antimicrobial Start: 07-30-2018 Ozempic 0.25 mg or 0.5 mg (2 mg/3 mL) pen injector (3 sources) Start: 05-23-2024 inject 0.5 mg by subcutaneous injection every week Ozempic 0.25 mg or 0.5 mg (2 mg/3 mL) pen injector Inject 0.5 mg under the skin 1 (one) time per week. 05/23/2024 Active Pen Wilson (4 sources) Start: 05-01-2023 Pen Wilson Active 0 .Route .MEDSUPPLY May 01, 2023 1:00am Use to inject insulin qd SC Start: 05-01-2023 Pen Wilson Ac tive 0 .ROUTE .MEDSUPPLY May 01, 2023 12:00am Use to inject insulin qd SC polysaccharide iron complex 150 mg oral capsule (4 sources) Start: 08-09-2024 End: 08-10-2024 Polysaccharide Iron Complex (Ferrex 150) 150 mg iron capsule Active 150 MG PO Daily August 10, 2024 2:48pm Complies with drug therapy Ranitidine & Diet Manage Pro d 150 MG (14 sources) Ranitidine & t Manage Prod 150 MG as directed Orally Not-Taking rOPINIRole 0.5 mg oral tablet (20 sources) Nonergot Dopamine Agonist Start: 05-16-2024 take 1 tablet by mouth once daily at bedtime Ropinirole 0.5 mg tablet Active 0.5 MG PO Daily at bedtime May 16, 2024 2:00pm Complies with drug therapy Start: 03-17-2024 End: 05-16-2024 Ropinirole 0.5 mg tablet Discontinued 0 .ROUTE .COMPLEX March 17, 2024 8:15am May 16, 2024 2:01pm TAKE 1 TABLET AT BEDTIME Start: 03-17-2024 End: 05-16-2024 Ropinirole 0.5 mg tablet Discontinued 0 .ROUTE .COMPLEX March 17, 2024 8:15am May 16, 2024 2:01pm TAKE 1 TABLET AT BEDTIME Start: 03-17-2024 End: 05-16-2024 Ropinirole 0.5 mg tablet Discontinued 0 .ROUTE .COMPLEX March 17, 2024 7:15am May 16, 2024 1:01pm TAKE 1 TABLET AT BEDTIME Start: 03-17-2024 Ropinirole 0.5 mg tablet Active 0 .ROUTE .COMPLEX March 17, 2024 7:15am TAKE 1 TABLET AT BEDTIME Start: 08-23-2019 End: 03-17-2024 take 1 tablet by mouth once daily at bedtime Ropinirole 0.5 mg tablet Discontinued 0.5 MG PO Daily at bedtime August 23, 2019 12:00am March 17, 2024 8:15am Start: 08-23-2019 take 0.8 mg by mouth once daily at bedtime Ropinirole Active 0.8 MG PO Daily at bedtime August 23, 2019 12:00am Start: 02-18-2017 End: 06-30-2017 take 1 tablet by mouth at bedtime Ropinirole 0.5 mg Tablet Discontinued 0.5 MG PO Bedtime February 18, 2017 1:00am June 30, 2017 11:59pm Semaglutide (2 sources) Start: 08-08-2024 Semaglutide (O zempic) 0.25 mg or 0.5 mg (2 mg/3 mL) pen injector Active 0.5 MG SUBCUT every week August 08, 2024 12:00am for 4 weeks Complies with drug therapy Semaglutide,0.25 or 0.5MG/DO S, (Ozempic, 0.25 or 0.5 MG/DOSE,) 2 MG/3ML solution pen-injector (14 sources) Start: 05-23-2024 Semaglutide,0. 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 25 or 0.5MG/DOS, (Ozempic, 0.25 or 0.5 MG/DOSE,) 2 MG/3ML solution pen-injector Indications: Type 2 diabetes mellitus with other circulatory complications Inject 0.5 mg under the skin 1 (one) time per week 3 mL 3 05/23/2024 Active Start: 05-23-2024 Semaglutide,0. 25 or 0.5MG/DOS, (Ozempic, 0.25 or 0.5 MG/DOSE,) 2 MG/3ML solution pen-injector Indications: Type 2 diabetes mellitus with other circulatory complications (CMS/HCC) Inject 0.5 mg under the skin 1 (one) time per week 3 mL 3 05/23/2024 Active Suprep Bowel Prep Kit 17.5-3 .13-1.6 GM/180ML (14 sources) Start: 04-25-2020 Start: 04-25-2020 Suprep Bowel P rep Kit 17.5-3.13-1.6 GM/180ML 177 ML BOTTLE AT 4 PM AND ONE BOTTLE AT 11 PM DAY PRIOR TO PROCEDURE Orally Twice a day for 1 day(s) Apr, Not-Taking triamcinolone acetonide 5 mg/ml topical cream (13 sources) Corticosteroid Start: 11-09-2024 Triamcinolone Acetonide 0.5 % cream Active 1 APPLIC TOPICAL Twice daily November 09, 2024 12:00am Complies with drug therapy Start: 12-30-2022 Kenalog-40 Dec, 20 mg vitamin b12 1 mg oral lozenge (2 sources) Vitamin B12 Start: 08-09-2024 take 1000 ug under the tongue once daily Cyanocobalamin (Vitamin B-12) 1,000 mcg lozenge Active 1000 MCG SUBLINGUAL Daily August 09, 2024 12:00am Complies with drug therapy Completed/Discontinued Medications Medication Drug Class(es) Dates Sig (Normalized) Sig (Original) Blood-Glucose Sensor (Freestyle Marita 2 Plus Sensor) device (6 sources) Start: 02-14-2024 End: 02-14-2024 Blood-Glucose Sensor (Freestyle Marita 2 Plus Sensor) device Discontinued 0 .Route February 14, 2024 1:00am February 14, 2024 9:42am As directed Start: 02-14-2024 End: 02-14-2024 Blood-Glucose Sensor (Freest yle Marita 2 Plus Sensor) device Discontinued 0 .Route February 14, 2024 12:00am February 14, 2024 8:42am As directed citalopram 40 mg oral tablet (18 sources) Serotonin Reuptake Inhibitor Start: 02-18-2017 End: 08-23-2019 take 1 tablet by mouth at bedtime Citalopram 40 mg Tablet Discontinued 40 MG PO Bedtime February 18, 2017 1:00am August 23, 2019 1:05pm CeleXA 40 MG Ora l Tablet Quantity: 0 Refills: 0 Ordered: 28-Sep-2017 DO Active clindamycin 300 mg oral capsule (16 sources) Lincosamide Antibacterial Start: 06-18-2018 End: 06-25-2018 take 1 capsule by mouth every twelve hours Clindamycin Hcl 300 mg capsule Discontinued 300 MG PO Q12H 14 June 18, 2018 12:00am June 24, 2018 12:00am June 25, 2018 12:02am clopidogrel 75 mg oral tablet (20 sources) P2Y12 Platelet Inhibitor Start: 12-31-2020 End: 11-13-2022 take 1 tablet by mouth once daily Clopidogrel 75 mg Tablet Discontinued 75 MG PO Daily December 31, 2020 12:00am November 13, 2022 8:38am Start: 12-14-2017 End: 08-23-2019 take 1 tablet by mouth once daily Clopidogrel 75 mg Tablet Discontinued 75 MG PO Daily December 14, 2017 12:00am August 23, 2019 1:05pm Start: 06-30-2017 End: 09-03-2017 take 1 tablet by mouth once daily Clopidogrel (Plavix) 75 mg Tablet Discontinued 75 MG PO Daily June 30, 2017 12:00am September 03, 2017 12:27pm Continuous Glucose Sensor (FreeStyle Marita 2 Sensor) misc (16 sources) Start: 01-29-2024 End: 08-28-2024 Continuous Glucose Sensor (FreeStyle Marita 2 Sensor) misc USE DIRECTED to test BLOOD SUGAR 4-6 times DAILY 01/29/2024 08/28/2024 Discontinued (Therapy completed) Start: 01-29-2024 Continuous Glu cose Sensor (FreeStyle Marita 2 Sensor) misc USE DIRECTED to test BLOOD SUGAR 4-6 times DAILY 01/29/2024 Active diazePAM 5 mg oral tablet (16 sources) Benzodiazepine Start: 02-18-2017 End: 06-30-2017 take 1 tablet by mouth at bedtime Diazepam 5 mg Tablet Discontinued 5 MG PO Bedtime February 18, 2017 1:00am June 30, 2017 11:57pm doxycycline hyclate 100 mg oral capsule (20 sources) Tetracycline-class Drug Start: 11-15-2023 End: 05-16-2024 take 1 capsule by mouth twice daily Doxycycline Hyclate 100 mg capsule Discontinued 100 MG PO Twice daily 08 01November 15, 2023 12:00am May 16, 2024 12:23pm Start: 09-17-2022 take 1 capsule by mo [facility] every twelve hours Doxycycline Hyclate 100 MG 1 capsule Orally Twice a day for 10 days Mar, Active 0.5 ml dulaglutide 3 mg/ml auto-injector (20 sources) GLP-1 Receptor Agonist Start: 11-13-2022 End: 05-01-2023 Dulaglutide (Trulicity) 1.5 mg/0.5 mL pen injector Discontinued 1.5 MG SUBCUT every week November 13, 2022 12:00am May 01, 2023 11:56am wednesday inject 3 mg by subcu taneous injection every week Trulicity 3 MG/0.5ML 3mg Subcutaneous weekly for 28 days Active empagliflozin 10 mg oral tablet (16 sources) Sodium-Glucose Cotransporter 2 Inhibitor Start: 06-26-2020 [...] 13, 2022 12:00am May 01, 2023 11:56am furosemide 20 mg oral tablet (20 sources) Loop Diuretic Start: 2024 End: 08-08-2024 take 1 tablet by mouth every other day Furosemide 20 mg tablet Discontinued 20 MG PO .QOD 45 90 July 24, 2024 1:28pm August 08, 2024 10:27am Start: 06-21-2023 End: 05-15-2025 take 1 tablet by mouth once daily Furosemide 20 mg tablet Active 20 MG PO Daily August 08, 2024 10:23am Complies with drug therapy gabapentin 100 mg oral capsule (16 sources) Anti-epileptic Agent Start: 02-18-2017 End: 07-01-2017 take 1 capsule by mouth three times daily Gabapentin 100 mg Capsule Discontinued 100 MG PO Three times daily February 18, 2017 1:00am July 01, 2017 12:00am glimepiride 1 mg oral tablet (20 sources) Sulfonylurea Start: 12-14-2017 End: 06-26-2020 take 2 tablets by mouth once daily Glimepiride 1 mg Tablet Discontinued 2 MG PO Daily December 14, 2017 12:00am June 26, 2020 10:16am Start: 12-14-2017 End: 06-26-2020 take 2 mg by mouth once daily Glimepiride Discontinued 2 MG PO Daily December 14, 2017 12:00am June 26, 2020 10:16am Glimepiride Not- Taking take 1 tablet by ramez th once daily Glimepiride 1 MG Oral Tablet TAKE 1 TABLET DAILY. Quantity: 0 Refills: 0 Ordered: 21-Oct-2017 DO Active 3 ml insulin detemir 100 unt/ml pen injector (20 sources) Insulin Analog Start: 11-15-2023 End: 01-26-2024 Insulin Detemir U-100 (Levemir Flexpen) 100 unit/mL (3 mL) insulin pen Discontinued 22 UNIT SUBCUT Twice daily 42 90 January 24, 2024 11:13pm January 26, 2024 4:50pm Start: 08-06-2023 End: 11-15-2023 Insulin Detemir U-100 (Levem ir Flexpen) 100 unit/mL (3 mL) insulin pen Discontinued 20 UNIT SUBCUT Twice daily August 06, 2023 10:50am November 15, 2023 9:03am Start: 05-01-2023 End: 08-06-2023 Insulin Detemir U-100 (Levem ir Flexpen) 100 unit/mL (3 mL) insulin pen Discontinued 14 UNIT SUBCUT Twice daily May 01, 2023 11:50am August 06, 2023 10:50am Start: 07-30-2022 End: 07-13-2024 Insulin Detemir U-100 (Levem ir Flexpen) 100 unit/mL (3 mL) insulin pen Discontinued 14 UNIT SUBCUT Daily at bedtime November 13, 2022 12:00am May 01, 2023 11:56am Start: 07-30-2022 Levemir FlexPe n 100 UNIT/ML [...] 10 u Subcutaneous q HS July, Active End: 05-23-2024 inject 100 [IU] by subcutaneous injection at bedtime insulin detemir (Levemir FlexPen) 100 UNIT/ML pen Inject under the skin at bedtime [facility] [place] 05/23/2024 Discontinued Levemir FlexPen 100 UNIT/ML Subcutaneous Solution Pen-injector 14 units at bedtime Quantity: 0 Refills: 0 Ordered: 30-Nov-2022 DO Active Insulin Detemir U-100 (Levem ir Flexpen) 100 unit/mL (3 mL) insulin pen (20 sources) Start: 01-24-2024 End: 01-26-2024 Insulin Detemir U-100 (Levem ir Flexpen) 100 unit/mL (3 mL) insulin pen Discontinued 22 UNIT SUBCUT Twice daily January 24, 2024 11:13pm January 26, 2024 4:50pm Start: 01-24-2024 End: 01-26-2024 Insulin Detemir U-100 (Levem ir Flexpen) 100 unit/mL (3 mL) insulin pen Discontinued 22 UNIT SUBCUT Twice daily 42 January 24, 2024 10:13pm January 26, 2024 3:50pm Start: 01-21-2024 End: 01-24-2024 Insulin Detemir U-100 (Levem ir Flexpen) 100 unit/mL (3 mL) insulin pen Discontinued 22 UNIT SUBCUT Twice daily 42 January 21, 2024 4:23pm January 24, 2024 11:13pm Start: 01-21-2024 End: 01-24-2024 Insulin Detemir U-100 (Levem ir Flexpen) 100 unit/mL (3 mL) insulin pen Discontinued 22 UNIT SUBCUT Twice daily 42 90 January 21, 2024 3:23pm January 24, 2024 10:13pm Start: 12-27-2023 End: 01-21-2024 Insulin Detemir U-100 (Levem ir Flexpen) 100 unit/mL (3 mL) insulin pen Discontinued 22 UNIT SUBCUT Twice daily December 27, 2023 10:31am January 21, 2024 4:24pm Start: 12-27-2023 End: 01-21-2024 Insulin Detemir U-100 (Levem ir Flexpen) 100 unit/mL (3 mL) insulin pen Discontinued 22 UNIT SUBCUT Twice daily December 27, 2023 9:31am January 21, 2024 3:24pm Start: 12-27-2023 End: 12-27-2023 Insulin Detemir U-100 (Levem ir Flexpen) 100 unit/mL (3 mL) insulin pen Discontinued 22 UNIT SUBCUT Twice daily December 27, 2023 10:30am December 27, 2023 10:31am Start: 12-27-2023 End: 12-27-2023 Insulin Detemir U-100 (Levem ir Flexpen) 100 unit/mL (3 mL) insulin pen Discontinued 22 UNIT SUBCUT Twice daily December 27, 2023 9:30am December 27, 2023 9:31am Start: 11-15-2023 End: 12-27-2023 Insulin Detemir U-100 (Levem ir Flexpen) 100 unit/mL (3 mL) insulin pen Discontinued 22 UNIT SUBCUT Twice daily November 15, 2023 9:02am December 27, 2023 10:30am Start: 11-15-2023 End: 12-27-2023 Insulin Detemir U-100 [...] ml insulin lispro 100 unt/ml pen injector (20 sources) Insulin Analog Start: 09-24-2023 End: 05-18-2024 Insulin Lispro (Humalog Kwikpen Insulin) 100 unit/mL insulin pen Discontinued 1 sliding scale dose SUBCUT Use as Directed 2024 10:35am May 16, 2024 2:01pm 70-130 - 0 131-180 - 8 181-240 - 12 241-300 - 16 301-350 - 20 351-400 - 24 > 400 - 28 Start: 05-01-2023 End: 09-24-2023 inject 100 [IU] by subcutaneous injection three times daily before mealtime Insulin Lispro (Humalog Kwikpen Insulin) 100 unit/mL insulin pen Discontinued SUBCUT May 01, 2023 1:00am September 24, 2023 2:11pm [email or web address] units Subcutaneous tid before meals; Note: Source Status: Continue; Provider: Rajesh Rowell Start: 01-07-2023 inject 100 [IU] by s ubcutaneous injection three times daily before mealtime HumaLOG KwikPen 100 UNIT/ML 2-8 units Subcutaneous tid before meals Dec, Active Start: 01-07-2023 HumaLOG KwikPe n 100 UNIT/ML per sliding scale Subcutaneous with meals Dec, Active Insulin Lispro (Humalog Kwikpen Insulin) 100 unit/mL insulin pen (20 sources) Start: 05-16-2024 End: 05-17-2024 Insulin Lispro (Humalog Kwik pen Insulin) 100 unit/mL insulin pen Discontinued 1 sliding scale dose SUBCUT Use as Directed May 16, 2024 1:57pm May 17, 2024 2:15pm 70-130 - 0 131-180 - 8 181-240 - 12 241-300 - 16 301-350 - 20 351-400 - 24 > 400 - 28 Start: 05-16-2024 End: 05-17-2024 Insulin Lispro (Humalog Kwik pen Insulin) 100 unit/mL insulin pen Discontinued 1 sliding scale dose SUBCUT Use as Directed 15 90 May 16, 2024 12:57pm May 17, 2024 1:15pm 70-130 - 0 131-180 - 8 181-240 - 12 241-300 - 16 301-350 - 20 351-400 - 24 > 400 - 28 Start: 2024 End: 05-16-2024 Insulin Lispro (Humalog Kwik pen Insulin) 100 unit/mL insulin pen Discontinued 1 sliding scale dose SUBCUT Use as Directed 2024 10:35am May 16, 2024 2:01pm 70-130 - 0 131-180 - 8 181-240 - 12 241-300 - 16 301-350 - 20 351-400 - 24 > 400 - 28 Start: 2024 End: 05-16-2024 Insulin Lispro (Humalog Kwik pen Insulin) 100 unit/mL insulin pen Discontinued 1 sliding scale dose SUBCUT Use as Directed 2024 9:35am May 16, 2024 1:01pm 70-130 - 0 131-180 - 8 181-240 - 12 241-300 - 16 301-350 - 20 351-400 - 24 > 400 - 28 Start: 2024 Insulin Lispro (Humalog Kwikpen Insulin) [...] SUBCUT Use as Directed December 28, 2023 10:14am 2024 10:37am 70-130 - 0 131-180 - 4 181-240 - 8 241-300 - 10 301-350 - 12 351-400 - 16 > 400 - 20 Start: 12-28-2023 End: 2024 Insulin Lispro (Humalog [...] scale dose SUBCUT November 15, 2023 9:01am December 28, 2023 10:15am 70-130 - 0 131-180 - 4 181-240 [...] before meals; Note: Source Status: Continue; Provider: Rajesh Rowell Start: 05-01-2023 End: 09-24-2023 inject 100 [IU] by subcutaneous injection three times daily before mealtime Insulin Lispro (Humalog Kwikpen Insulin) 100 unit/mL insulin pen Discontinued SUBCUT May 01, 2023 1:00am September 24, 2023 2:11pm [email or web address] units Subcutaneous tid before meals; Note: Source Status: Continue; Provider: Rajesh Rowell Start: 05-01-2023 inject 100 [IU] by s ubcutaneous injection three times daily before mealtime Insulin Lispro (Humalog Kwikpen Insulin) 100 unit/mL insulin pen Active SUBCUT May 01, 2023 1:00am [email or web address] units Subcutaneous tid before meals; Note: Source Status: Continue; Provider: Rajesh Rowell Start: 05-01-2023 inject 100 [IU] by s ubcutaneous injection three times daily before mealtime Insulin Lispro (Humalog Kwikpen Insulin) 100 unit/mL insulin pen Active SUBCUT May 01, 2023 12:00am [email or web address] units Subcutaneous tid before meals; Note: Source Status: Continue; Provider: Rajesh Rowell 24 hr isosorbide mononitrate 30 mg extended release oral tablet (20 sources) Nitrate Vasodilator Start: 09-13-2023 End: 05-15-2025 take 1 tablet by mouth once daily in the morning, then take 1 tablet by mouth every twenty-four hours Isosorbide Mononitrate 30 mg tablet extended release 24 hr Discontinued 30 MG PO Every morning 2024 1:00am May 16, 2024 2:01pm lisinopril 2.5 mg oral tablet (20 sources) Angiotensin Converting Enzyme Inhibitor Start: 12-31-2020 End: 11-13-2022 take 1 tablet by mouth once daily Lisinopril 2.5 mg Tablet Discontinued 2.5 MG PO Daily December 31, 2020 12:00am November 13, 2022 8:38am Start: 02-18-2017 End: 06-30-2017 take 0.5 tablet by mouth once daily Lisinopril 5 mg Tablet Discontinued 0.5 TAB PO Daily February 18, 2017 1:00am June 30, 2017 11:58pm losartan potassium 25 mg oral tablet (20 sources) Angiotensin 2 Receptor Pato Start: 01-12-2023 End: 05-16-2025 take 1 tablet by mouth once daily Losartan 25 mg tablet Discontinued 25 MG PO Daily 2024 1:00am May 16, 2024 2:01pm Start: 07-14-2022 End: 11-19-2022 take 1 tablet by mouth once daily in the morning Losartan 25 mg tablet Discontinued 25 MG PO Every morning November 13, 2022 12:00am November 19, 2022 2:49pm metFORMIN hydrochloride 850 mg oral tablet (20 sources) Biguanide Start: 09-27-2023 End: 11-15-2023 Metformin 850 mg tablet Discontinued 0 .ROUTE .COMPLEX 180 September 27, 2023 9:35am November 15, 2023 8:47am TAKE 1 TABLET TWICE A DAY Start: 09-27-2023 End: 11-15-2023 Metformin 850 mg tablet Discontinued 0 .ROUTE .COMPLEX 180 September 27, 2023 9:35am November 15, 2023 8:47am TAKE 1 TABLET TWICE A DAY Start: 09-27-2023 End: 11-15-2023 Metformin 850 mg tablet Discontinued 0 .ROUTE .COMPLEX 180 September 27, 2023 8:35am November 15, 2023 7:47am TAKE 1 TABLET TWICE A DAY Start: 09-27-2023 End: 11-15-2023 Metformin Discontinued 0 .RO [place] .COMPLEX 180 September 27, 2023 9:35am November 15, 2023 8:47am TAKE 1 TABLET TWICE A DAY Start: 09-27-2023 Metformin Acti ve 0 .ROUTE .COMPLEX 180 September 27, 2023 9:35am TAKE 1 TABLET TWICE A DAY Start: 02-20-2020 End: 03-07-2024 take 1 tablet by mouth twice daily Metformin 850 mg tablet Discontinued 850 MG PO Twice daily November 13, 2022 12:00am September 27, 2023 9:35am Start: 12-14-2017 End: 11-13-2022 Metformin 1,000 mg Tablet Discontinued 850 MG PO Twice daily December 14, 2017 12:00am November 13, 2022 8:35am With Meals Start: 12-14-2017 End: 11-13-2022 take [...] 0 Ordered: 24-Sep-2017 DO Active 24 hr metoprolol succinate 50 mg extended release oral tablet (20 sources) beta-Adrenergic Pato Start: 05-01-2023 End: 08-08-2024 take 1 tablet by mouth twice daily Metoprolol Succinate 50 mg tablet extended release 24 hr Discontinued 50 MG PO Twice daily May 01, 2023 11:52am August 08, 2024 10:27am Start: 12-14-2017 End: 12-31-2020 take 2 tablets by mouth once daily Metoprolol Succinate 25 mg Tablet Extended Release 24 Hr Discontinued 12.5 MG PO Daily December 14, 2017 12:00am December 31, 2020 7:38am Start: 12-14-2017 End: 12-31-2020 take 12.5 mg by mouth once daily Metoprolol Succinate Discontinued 12.5 MG PO Daily December 14, 2017 12:00am December 31, 2020 7:38am Start: 09-16-2017 End: 05-15-2025 take 1 tablet by mouth once daily in the morning Metoprolol Succinate 50 mg tablet extended release 24 hr Discontinued 50 MG PO Every morning November 13, 2022 8:37am May 01, 2023 11:56am Start: 02-18-2017 End: 12-14-2017 Metoprolol Tartrate 25 mg Ta madonna Discontinued 12.5 MG PO Q12H February 18, 2017 1:00am December 14, 2017 3:06pm Start: 02-18-2017 End: 12-14-2017 take 12.5 mg by mouth every twelve hours Metoprolol Tartrate Discontinued 12.5 MG PO Q12H February 18, 2017 1:00am December 14, 2017 3:06pm take 1 tablet by ramez th every twelve hours Metoprolol Succinate ER 50 MG 1 tablet Orally Twice a day Active Toprol XL Not-Ta mila take 1 tablet by ramez th twice [...] at bedtime. 0 08/18/2009 01/12/2023 Discontinued (Ineffective) Nitroglycerin 0.4 mg tablet, sublingual (5 sources) Start: 024 End: 025 Nitroglycerin 0.4 mg tablet, sublingual Discontinued 0 .ROUTE .COMPLEX July 08, 2023 2:37pm May 16, 2024 2:01pm DISSOLVE 1 TABLET UNDER THE TONGUE NEEDED FOR CHEST PAIN Start: 07-08-2023 End: 05-16-2024 Nitroglycerin 0.4 mg tablet, sublingual Discontinued 0 .ROUTE .COMPLEX July 08, 2023 1:37pm May 16, 2024 1:01pm DISSOLVE 1 TABLET UNDER THE TONGUE NEEDED FOR CHEST PAIN Start: 07-08-2023 Nitroglycerin 0.4 mg tablet, sublingual Active 0 .ROUTE .COMPLEX July 08, 2023 1:37pm DISSOLVE 1 TABLET UNDER THE TONGUE NEEDED FOR CHEST PAIN pravastatin sodium 40 mg oral tablet (20 sources) HMG-CoA Reductase Inhibitor Start: 07-01-2017 End: 12-31-2020 take 1 tablet by mouth once daily Pravastatin 40 mg tablet Discontinued 40 MG PO Daily July 01, 2017 12:00am December 31, 2020 7:38am Start: 02-18-2017 End: 02-19-2017 Pravastatin 40 mg Tablet Discontinued 20 MG PO Bedtime February 18, 2017 1:00am February 19, 2017 12:09pm Start: 02-18-2017 End: 02-19-2017 take 20 mg [...] once daily. 0 08/18/2009 01/12/2023 Discontinued (Ineffective) sacubitril 24 mg / valsartan 26 mg oral tablet (20 sources) Angiotensin 2 Receptor Pato Start: 11-19-2022 End: 08-08-2024 take 1 tablet by mouth twice daily Sacubitril-Valsarta n (Entresto) 24-26 mg tablet Discontinued 1 TAB PO Twice daily 60 November 19, 2022 12:00am August 08, 2024 10:25am spironolactone 25 mg oral tablet (20 sources) Aldosterone Antagonist Start: 07-14-2022 End: 08-08-2024 take 1 tablet by mouth once daily in the morning Spironolactone 25 mg tablet Discontinued 25 MG PO Every morning November 13, 2022 12:00am August 08, 2024 10:25am Start: 12-31-2020 End: 11-13-2022 Spironolactone 25 mg Tablet Discontinued 12.5 MG PO Daily December 31, 2020 12:00am November 13, 2022 8:36am Start: 12-31-2020 End: 11-13-2022 take 12.5 mg by mouth once daily Spironolactone Discontinued 12.5 MG PO Daily December 31, 2020 12:00am November 13, 2022 8:36am ticagrelor 90 mg oral tablet (16 sources) Start: 02-18-2017 End: 06-30-2017 take 1 tablet by mouth twice daily Ticagrelor (Brilinta) 90 mg Tablet Discontinued 90 MG PO Twice daily February 18, 2017 1:00am June 30, 2017 11:59pm 24 hr venlafaxine 37.5 mg extended release [...] 2022 8:39am Start: 08-23-2019 End: 11-13-2022 take 1 capsule by mouth once daily at bedtime Venlafaxine 37.5 mg capsule,extended release 24hr Discontinued 37.5 MG PO Daily at bedtime August 23, 2019 12:00am November 13, 2022 8:39am Effexor Not-Taki ng Venlafaxine HCl ER Not-Taking warfarin sodium 1 mg oral tablet (20 sources) Vitamin K Antagonist Start: 01-07-2023 take 1 tablet by mouth once daily Warfarin 2 mg tablet Active 2 MG PO Daily August 08, 2024 12:00am Complies with drug therapy Start: 12-31-2020 End: 05-01-2023 Warfarin 1 mg tablet Discont inued 2 MG PO As Directed May 01, 2023 11:55am May 01, 2023 11:57am Take 3 tablets ( 3MG ) today and tomorrow. (Wednesday and Wednesday ) resume taking 2 tablet ( 2 mg ) then follow the Coumadin clinic at [place] instructions to adjust dosing based on the blood test. Start: 12-31-2020 End: 05-01-2023 Warfarin Discontinued 2 MG P O As Directed May 01, 2023 11:55am May 01, 2023 11:57am Take 3 tablets ( 3MG ) today and tomorrow. (Wednesday and Wednesday ) resume taking 2 tablet ( 2 mg ) then follow the Coumadin clinic at [place] instructions to adjust dosing based on the blood test. Start: 06-13-2018 End: 12-31-2020 take 2 tablets by mouth once daily Warfarin 1 mg Tablet Discontinued 2 MG PO Daily June 13, 2018 12:00am December 31, 2020 7:38am Start: 06-13-2018 End: 06-16-2018 take 1 g by mouth every week Warfarin 1 mg Tablet Disc ontinued 1 GM PO every week June 13, 2018 12:00am June 16, 2018 9:24pm Start: 06-13-2018 End: 12-31-2020 take 2 mg [...] Translations: [Acute bronchitis] Episodic Acute cerebrovascular disease (20 sources) Cerebral infarction; Translations: [Cerebral infarction, unspecified] Onset: 4 03-06-2024 Chronic Acute myocardial infarction (20 sources) Myocardial [...] Chronic Complication of device; implant or graft (10 sources) Arteriosclerosis of coronary artery bypass graft; Translations: [Atherosclerosis of coronary artery bypass graft(s) without angina pectoris] Onset: 3 07-13-2023 Chronic Complication of device; implant or graft (20 sources) Coronary stent occluded; Translations: [Other complications due to other cardiac device, implant, and graft] Onset: 3 12-30-2022 Episodic Conditions associated with dizziness or vertigo (20 [...] sources) Coronary atherosclerosis; Translations: [Coronary atherosclerosis of [place] coronary artery] Onset: 8 06-17-2021 Chronic Deficiency and other anemia (3 sources) Anemia; Translations: [Anemia, unspecified] 08-08-2024 Episodic Delirium, dementia, and amnestic and other [...] viral communicable diseases; Translations: [Vaccination given] Episodic Inflammation; infection of eye (except that caused by tuberculosis or sexually transmitteddisease) (1 source) Conjunctivitis; Translations: [Unspecified conjunctivitis] 11-09-2024 Episodic Late effects of cerebrovascular disease (19 [...] [Occlusion and stenosis of bilateral carotid arteries] Onset: 4 03-06-2024 Chronic Comment on above: CTA: occluded right ICA - 02/2024 Osteoarthritis (3 sources) Osteoarthritis; Translations: [Polyosteoarthritis, unspecified] Onset: 3 Chronic Other aftercare (20 sources) Long-term current use of insulin; Translations: [superintendent terminal (current) use of insulin] 05-01-2023 Episodic Other aftercare (5 sources) Encounter for therapeutic drug level monitoring; Translations: [ENC THERAPEUTC DRUG LEVL MONITORING] Onset: 3 Episodic Other aftercare (3 sources) Long-term current use of drug therapy; Translations: [Other nursing home (current) drug therapy] Episodic Other aftercare (20 sources) Taking high risk medication; Translations: [Other remote 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 (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) drug therapy] Onset: 3 12-30-2022 Episodic [...] [Heart disease, unspecified] Chronic Other circulatory disease (20 sources) Patient post angioplasty; Translations: [Other postprocedural status] Onset: 3 12-30-2022 Episodic Other circulatory disease (2 sources) Peripheral [...] [Pain in right lower leg] Episodic Other ear and sense organ disorders (3 sources) Mixed conductive and sensorineural hearing loss, bilateral; Translations: [Mixed conductive and sensorineural hearing loss, bilateral] 05-01-2024 Chronic Other gastrointestinal disorders (9 sources) Irritable bowel syndrome; Translations: [Irritable bowel syndrome without diarrhea] 10-29-2023 Chronic Other gastrointestinal disorders (6 sources) Irritable bowel syndrome without diarrhea; Translations: [Irritable bowel syndrome] 10-29-2023 Chronic Other gastrointestinal disorders (20 sources) Chronic constipation; Translations: [Other constipation] Episodic Other gastrointestinal disorders (3 sources) Constipation; Translations: [Other constipation] Episodic Other gastrointestinal disorders (2 sources) Diarrhea; Translations: [Diarrhea, unspecified] 08-09-2024 Episodic Other hereditary and degenerative nervous system conditions (20 sources) Mild cognitive disorder ; Translations: [Mild cognitive impairment, so stated] Chronic Other hereditary and degenerative nervous system conditions (20 sources) Restless legs; Translations: [Restless legs syndrome] Chronic Other inflammatory condition of skin (1 source) Irritant contact dermatitis; Translations: [Erythema intertrigo] 11-09-2024 Episodic Other injuries and conditions due to [...] the autonomic nervous system, unspecified] Chronic Other nutritional; endocrine; and metabolic disorders [...] mass index 31.0-31.9, adult] Onset: 6 Resolved: 5 01-12-2023 Chronic Other nutritional; endocrine; and metabolic disorders (2 sources) Body mass index (BMI) 32.0-32.9, adult; Translations: [Body mass index (BMI) 32.0-32.9, adult] Onset: 5 Chronic Other nutritional; endocrine; and metabolic disorders (2 sources) Body mass index (BMI) 33.0-33.9, adult; Translations: [Body mass index (BMI) 33.0-33.9, adult] Onset: 5 Chronic Other nutritional; endocrine; and metabolic disorders (2 sources) Body mass index (BMI) 35.0-35.9, adult; Translations: [Body mass index (BMI) 35.0-35.9, adult] Onset: 4 Chronic Other nutritional; endocrine; and metabolic disorders (2 sources) Body mass index (BMI) 34.0-34.9, adult; Translations: [Body mass index (BMI) 34.0-34.9, adult] Onset: 4 Chronic Other screening for suspected conditions (not mental disorders or infectious disease) (20 sources) Patient encounter status; Translations: [Encounter for screening for malignant neoplasm of colon] Onset: 7 06-26-2020 Episodic Comment on above: PSA: 0.32 - 07/2024 Other skin disorders (20 sources) Sebaceous cyst; [...] Translations: [Tobacco use] Onset: 3 12-28-2020 Episodic Residual codes; unclassified (1 source) Family history of malignant neoplasm of digestive organs; Translations: [Family history of pancreatic cancer] Onset: 5 Episodic Residual codes; unclassified (1 source) Family history of malignant neoplasm of ovary; Translations: [Family history of ovarian cancer] Onset: 5 Episodic Skin and subcutaneous tissue infections (20 sources) Cellulitis; Translations: [Cellulitis of face] Onset: 6 Episodic Spondylosis; intervertebral disc disorders; other back problems (20 sources) Lumbar spondylosis; Translations: [Spondylosis without myelopathy or radiculopathy, lumbar region] Onset: 4 08-31-2023 Chronic Spondylosis; intervertebral disc disorders; other back problems (8 sources) Low back pain; Translations: [Lumbago] Onset: 3 06-08-2024 Episodic Substance-related disorders (20 sources) Smokes tobacco daily; Translations: [Tobacco use disorder] Onset: 0 Resolved: 4 Chronic Comment on above: 3 cigarettes per day ; almost a pack daily; PFT: FEV1/FVC 77%, T LC 95%, DLCO 86% - 04/2024 Superficial injury; contusion (2 sources) Contusion of left lesser toe(s) with damage to nail, initial encounter; Translations: [Contusion of left lesser toe(s) with damage to nail, subsequent encounter] Episodic Syncope (2 sources) Syncope; Translations: [Syncope and collapse] 03-07-2024 Episodic Transient cerebral ischemia (16 sources) Cerebral ischemia; Translations: [Transient cerebral ischemic attack, unspecified] 07-01-2017 Chronic Viral infection (5 sources) Disease caused by 2019-nCoV; Translations: [COVID-19] 12-28-2020 Episodic Past or Other Problems Problem Classification Problem Date Documented Da te Episodic/Chronic Administrative/social admission (20 sources) Follow-up status; Translations: [Other specified counseling] Onset: 4 05-21-2023 Episodic Bacterial infection; unspecified site (6 sources) Bacterial infectious disease; Translations: [Bacterial infection, unspecified, in conditions classified elsewhere and of unspecified site] Onset: 6 Episodic Coronary atherosclerosis and other heart disease (2 sources) Presence of aortocoronary bypass graft; Translations: [Presence of aortocoronary bypass graft] Onset: 3 Episodic Disorders of teeth and jaw (4 sources) Jaw pain; Translations: [Periapical abscess without sinus] Onset: 2 Episodic Epilepsy; convulsions (20 sources) Unspecified convulsions; Translations: [Seizure] Onset: 4 [...] 05-21-2023 Episodic Other aftercare (12 sources) Other remote 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 (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) drug therapy; Translations: [OTH FANCY WIRE DRAWER CURRENT DRUG THERAPY] Onset: 3 Episodic Other aftercare (9 sources) long-term (current) use of insulin; Translations: [Long-term (current) use of insulin] Onset: 3 Episodic Other aftercare (3 sources) superintendent terminal (current) use of anticoagulants; Translations: [PENITENTIARY CURRNT USE ANTICOAGULANTS] Onset: 3 Episodic Other aftercare (1 source) superintendent terminal (current) use of aspirin; Translations: [PENITENTIARY CURRENT USE OF ASPIRIN] Onset: 2 Episodic Other aftercare (1 source) long-term (current) use of oral hypoglycemic drugs; Translations: [PENITENTIARY USE ORAL HYPOGLYCEMIC DX] Onset: 2 Episodic Other aftercare (1 source) long-term (current) use of antithrombotics/antipl atelets; Translations: [PENITENTIARY ANTITHROMBOT/ANTIPLATL ETS] Onset: 2 Episodic Other aftercare (11 sources) Long-term current use of anticoagulant; Translations: [superintendent terminal (current) use of anticoagulants] Onset: 4 Resolved: 4 01-12-2024 Episodic Other circulatory disease (20 sources) History of cerebrovascular accident; Translations: [Personal history of transient ischemic attack (TIA), and cerebral infarction without residual deficits] Onset: 3 12-28-2020 Episodic Other circulatory disease (20 sources) History of sick sinus syndrome; Translations: [Personal history of other diseases of circulatory system] Onset: 3 Resolved: 3 12-30-2022 Episodic Other circulatory disease (8 sources) Low blood pressure; Translations: [Hypotension, unspecified] Resolved: 2 06-17-2018 Episodic Other circulatory disease (3 sources) Personal history of transient ischemic attack [...] Onset: 8 Episodic Other lower respiratory disease (12 sources) Dyspnea; Translations: [Shortness of breath] Onset: 4 05-21-2023 Episodic Other lower respiratory disease (2 sources) Shortness of breath; Translations: [Shortness of breath] Onset: 3 Episodic Other nervous system disorders (20 sources) Paresthesia; Translations: [Paresthesia of skin] Onset: 4 08-31-2023 Episodic Other nervous system disorders (3 sources) [...] vaccination and inoculation, Influenza] Onset: 7 Episodic Screening and history of mental health and substance abuse codes (4 sources) Personal history of nicotine dependence; Translations: [History of tobacco use] Onset: 6 Episodic Unclassified (14 sources) Elevated alanine aminotransferase (ALT) level; Translations: [Elevated alanine aminotransferase (ALT) level] Unclassified (3 sources) Vaccine product containing only acellular Bordetella pertussis and Clostridium tetani and Corynebacterium diphtheriae antigens (medicinal product); Translations: [Vslkhubgck-pfeqvat-sv rtussis, combined [DTP] [DtaP]] Onset: 8 Unclassified (3 sources) Long-term current use of drug therapy; Translations: [Long-term (current) use of other medications] Onset: 7 Unclassified (17 sources) Onset: 3 Resolved: 01-12-2023 Viral infection (20 sources) Disease caused by 2019-nCoV; Translations: [COVID-19] Results Test Name Value Interpretation Reference Range Facility [facility] 12-29-2024 CNPN Telephone (GMINE) -- LESLEY QUINTERO ([id number]) 1955 M Date Time Provider Department 12/29/24 JERZY URBANO During your visit today, we recorded the following information about you: Jerzy Urbano MS 12/29/2024 1:56 PM Signed Results left on patient voicemail. Lesley Quintero's Multi-Cancer panel through [email or web address] / [employer] was negative for a pathogenic variant. Please see [employer] message for further discussion. Jerzy Urbano MS, [place] [facility] [place] Licensed, Certified Genetic Counselor Allergies As of Date: 12/29/2024 (No Known Allergies) Date Reviewed: 02/08/2013 Reviewed by: Silvia Decker (Rn), RN - Fully Assessed Prescriptions as of 12/29/2024 - levETIRAcetam (KEPPRA) 500 mg tablet Take 1 tablet by mouth twice daily. - Aspirin 81 mg Tab Take 4 tablets by mouth once daily. - metFORMIN 500 mg tablet Take 2 tablets by mouth twice daily with meals. - citalopram (CELEXA) 40 mg ORAL tablet Take 40 mg by mouth once daily. - pravastatin (PRAVACHOL) 40 mg ORAL tablet Take 40 mg by mouth once daily. - ranitidine (ZANTAC) 150 mg ORAL tablet Take 150 mg by mouth twice daily. 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] 02/27/2011 HTN (hypertension) [I10] 06/23/2011 DM (diabetes mellitus) (HCC) [E11.9] 06/23/2011 EMIL (obstructive sleep apnea) [G47.33] 06/23/2011 Hyperlipidemia [E78.5] 06/23/2011 Dizziness and giddiness [R42] 02/08/2013 Encounter Status:Closed by JERZY URBANO on 12/29/24 Normal [facility] Basophils Auto (Bld) [#/Vol] Ordered By: Lee Segovia on 11-30-2024 Basophils (Bld) [#/Vol] 0.0 10 3/uL 0.0-0.1 [facility] Basophils/100 WBC Auto (Bld) Ordered By: Lee Segovia on 11-30-2024 Basophils/100 WBC (Bld) 0.6 % 0.2-2.0 [facility] Eosinophils/100 WBC Auto (Bl d)Ordered By: Lee Segovia on 11-30-2024 Eosinophils/100 WBC (Bld) 3.6 % 0.9-7.0 [facility] Erythrocyte distribution wid th Auto (RBC) [Ratio]Ordered By: Lee Segovia on 11-30-2024 Erythrocyte distribution width (RBC) [Ratio] 17.3 % High 11.0-15.0 [facility] Hematocrit Auto (Bld) [Volum e fraction]Ordered By: Lee Segovia on 11-30-2024 Hematocrit (Bld) [Volume fraction] 42.6 % 42.0-54.0 [facility] Hemoglobin [Mass/volume] in BloodOrdered By: Lee Segovia on 11-30-2024 Hemoglobin (Bld) [Mass/Vol] 14.0 g/dL 14.0-18.0 [facility] IgA [Mass/volume] in Serum o r PlasmaOrdered By: Lee Segovia on 11-30-2024 IgA [Mass/Vol] 225 mg/dL 61-437 [facility] Comment on above: Performed at: [employer] [id number] [place] [address] [id number] Director: Roly Forrest PhD, Phone: [phone] Laboratory - Chemistry and C hemistry - challengeOrdered By: Lee Segovia on 11-30-2024 Cobalamin (Vitamin B12) [Mass/Vol] 256 pg/mL [id number] [facility] Comment on above: Performed at: [id number] [place], [place] [id number] Director: Roly Forrest PhD, Phone: [phone] Ferritin [Mass/Vol] 42.0 ng/mL 26.0-388.0 [facility] Laboratory - Hematology and Cell countsOrdered By: Lee Segovia on 11-30-2024 Immature granulocytes/100 WBC (Bld) 0.3 % 0.0-0.5 [facility] Leukocytes [#/volume] correc lily for nucleated erythrocytes in Blood by Automated counOrdered By: Lee Segovia on 11-30-2024 WBC corrected for nucl RBC Auto (Bld) [#/Vol] 6.6 10 3/uL 4.0-11.0 [facility] Lymphocytes Auto (Bld) [#/Vo l]Ordered By: Lee Segovia on 11-30-2024 Lymphocytes (Bld) [#/Vol] 2.6 10 3/uL 1.2-3.8 [facility] Lymphocytes/100 WBC Auto (Bl d)Ordered By: Lee Segovia on 11-30-2024 Lymphocytes/100 WBC (Bld) 39.7 % 20.5-60.0 [facility] MCH Auto (RBC) [Entitic mass ]Ordered By: Lee Segovia on 11-30-2024 MCH (RBC) [Entitic mass] 27.8 pg 25.9-34.0 [facility] MCHC Auto (RBC) [Mass/Vol]Or dered By: Lee Segovia on 11-30-2024 MCHC (RBC) [Mass/Vol] 32.9 g/dL 29.9-35.2 [facility] MCV Auto (RBC) [Entitic vol] Ordered By: Lee Segovia on 11-30-2024 MCV (RBC) [Entitic vol] 84.7 fL 80.0-94.0 [facility] Monocytes Auto (Bld) [#/Vol] Ordered By: Lee Segovia on 11-30-2024 Monocytes (Bld) [#/Vol] 0.6 10 3/uL 0.3-0.8 [facility] Monocytes/100 WBC Auto (Bld) Ordered By: Lee Segovia on 11-30-2024 Monocytes/100 WBC (Bld) 8.6 % 1.7-12.0 [facility] Neutrophils Auto (Bld) [#/Vo l]Ordered By: Lee Segovia on 11-30-2024 Neutrophils (Bld) [#/Vol] 3.1 10 3/uL 1.4-6.5 [facility] Neutrophils/100 WBC Auto (Bl d)Ordered By: Lee Segovia on 11-30-2024 Neutrophils/100 WBC (Bld) 47.2 % 43.0-75.0 [facility] No Panel InformationOrdered By: Lee Segovia on 11-30-2024 Eosinophils # (Auto) 0.2 10 3/uL 0.0-0.7 [facility] Immature Granulocyte # (Auto) 0.02 10 3/uL 0.00-0.03 [facility] Platelet mean volume Auto (B ld) [Entitic vol]Ordered By: Lee Segovia on 11-30-2024 Platelet mean volume (Bld) [Entitic vol] 13.2 fL 9.5-13.5 [facility] Platelets Auto (Bld) [#/Vol] Ordered By: Lee Segovia on 11-30-2024 Platelets (Bld) [#/Vol] 133 10 3/uL Low 150-450 [facility] RBC Auto (Bld) [#/Vol]Ordere d By: Lee Segovia on 11-30-2024 RBC (Bld) [#/Vol] 5.03 10 6/uL 4.70-6.10 [facility] Serum tissue transglutaminas e (tTG) IgA antibody assay (units/volume)Ordered By: Lee Segovia on 11-30-2024 tTG IgA Qn (S) <2 U/mL 0-3 [facility] Comment on above: Negative 0 - 3 Weak Positive 4 - 10 Positive >10 Tissue Transglutaminase (tTG) has been identified as the endomysial antigen. Studies have demonstr- ated that endomysial IgA antibodies have over 99% specificity for gluten sensitive enteropathy.Performed at: [employer] [id number] Director: Roly Forrest PhD, Phone: [phone] HbA1c (Bld) [Mass fraction]o n 11-28-2024 Interpretation and review of laboratory results Normal [facility] - Hematology and Cell countson 11-28-2024 HbA1c (Bld) [Mass fraction] 7.6 % [facility] HbA1c (Bld) [Mass fraction]o n 08-28-2024 Interpretation and review of laboratory results Abnormal [facility] - Hematology and Cell countson 08-28-2024 HbA1c (Bld) [Mass fraction] 8.2 % [facility] Aspartate Amino Transferaseo n 07-18-2024 AST [Catalytic activity/Vol] 21 U/L Normal 13-39 [facility] Comment on above: Performed By: #### A ST, TSH3, BMP, BNP, HSCRP, LIPID #### [facility] [address] Aspartate aminotransferase [ Enzymatic activity/volume] in Serum or PlasmaOrdered By: Franck Posey on 07-18-2024 AST [Catalytic activity/Vol] Aspartate aminotransferase [Enzymatic activity/volume] in Serum or Plasma 13-39 [facility] B-Type Natriuretic Peptideon 07-18-2024 Natriuretic peptide B (Bld) [Mass/Vol] 157.0 pg/mL High 5-100 [facility] Comment on above: Result Comment: PERF ORMED BY: [place] [address] PATHOLOGIST STRATEGIC PROCUREMENT MANAGER KUNAL MILLS M.D. Performed By: #### A ST, TSH3, BMP, BNP, HSCRP, LIPID #### [address] Basic Metabolic Panelon 06-21 Anion gap [Moles/Vol] 8.7 mmol/L Normal 6.0-15.0 [facility] Comment on above: Performed By: #### A ST, TSH3, BMP, BNP, HSCRP, LIPID #### [facility] [address] [place] [address] [place] Calcium [Mass/Vol] 8.8 mg/dL Normal 8.6-10.3 [facility] Comment on above: Performed By: #### A ST, TSH3, BMP, BNP, HSCRP, LIPID #### [facility] [address] [place] [address] [place] Chloride [Moles/Vol] 106 mmol/L Normal 98-107 [facility] Comment on above: Performed By: #### A ST, TSH3, BMP, BNP, HSCRP, LIPID #### [address] CO2 [Moles/Vol] 28.9 mmol/L Normal 21.0-31.0 [facility] Comment on above: Performed By: #### A ST, TSH3, BMP, BNP, HSCRP, LIPID #### [address] Creatinine [Mass/Vol] 1.09 mg/dL Normal 0.70-1.30 [facility] Comment on above: Performed By: #### A ST, TSH3, BMP, BNP, HSCRP, LIPID #### [place] [address] [place] GFR/1.73 sq M.predicted MDRD (S/P/Bld) [Vol rate/Area] mL/min/{1.73_m2} Normal [facility] Comment on above: Performed By: #### A ST, TSH3, BMP, BNP, HSCRP, LIPID #### [address] Glucose [Mass/Vol] 160 mg/dL High 70-100 [facility] Comment on above: Result Comment: [place] Glucose Reference Range is dependent on time and content of last meal. Glucose of more than 200 mg/dL in a nonstressed, ambulatory subject supports the diagnosis of Diabetes Mellitus. ADA recommended reference range Performed By: #### A ST, TSH3, BMP, BNP, HSCRP, LIPID #### [address] Potassium [Moles/Vol] 4.6 mmol/L Normal 3.5-5.1 [facility] Comment on above: Performed By: #### A ST, TSH3, BMP, BNP, HSCRP, LIPID #### [address] Sodium [Moles/Vol] 139 mmol/L Normal 136-145 [facility] Comment on above: Performed By: #### A ST, TSH3, BMP, BNP, HSCRP, LIPID #### [facility] [address] [place] [address] [place] Urea nitrogen [Mass/Vol] 16 mg/dL Normal 7-25 [facility] Comment on above: Performed By: #### A ST, TSH3, BMP, BNP, HSCRP, LIPID #### [facility] [address] [place] [address] [place] C reactive protein [Mass/vol ume] in Serum or Plasma by High sensitivity methodOrdered By: Franck Posey on 07-18-2024 CRP High sensitivity method [Mass/Vol] C reactive protein [Mass/volume] in Serum or Plasma by High sensitivity method High 0.0-0.9 [facility] Comment on above: Cardiovascular Risk Classification (AHA/CDC)hsCRP < 1.0 mg/l low relative risk for CVDhsCRP 1.0-3.0 mg/l average relative risk for CVDhsCRP > 3.0 mg/l high relative risk for CVDhsCRP > 7.5 mg/l active inflammation*Two results two weeks apart and averaged provide a morestable estimate of hsCRP level.*hsCRP levels > 7.5 mg/l may suggest infection that canlimit the use of this marker for estimation of CVD risk. Calcium [Mass/volume] in Ser um or PlasmaOrdered By: Franck Posye on 07-18-2024 Calcium [Mass/Vol] Calcium [Mass/volume ] in Serum or Plasma 8.6-10.3 [facility] Carbon dioxide, total [Moles /volume] in Serum or PlasmaOrdered By: Franck Posey on 07-18-2024 CO2 [Moles/Vol] Carbon dioxide, tota l [Moles/volume] in Serum or Plasma 21.0-31.0 [facility] Chloride [Moles/volume] in S radha or PlasmaOrdered By: Franck Posey on 07-18-2024 Chloride [Moles/Vol] Chloride [Moles/vol ume] in Serum or Plasma 98-107 [facility] Cholesterol [Mass/volume] in Serum or PlasmaOrdered By: Franck Posey on 07-18-2024 Cholesterol [Mass/Vol] Cholesterol [Mass /volume] in Serum or Plasma Low 140-200 [facility] Comment on above: Chol less than 200 m g/dl low riskChol 201-239 mg/dl borderline riskChol 240 mg/dl and greater high risk Cholesterol in HDL [Mass/vol ume] in Serum or PlasmaOrdered By: Franck Posey on 07-18-2024 Cholesterol in HDL [Mass/Vol] Serum or plasma high density lipoprotein (HDL) cholesterol measurement 23- [facility] Comment on above: HDL CHOL ATP-III CLA SSIFICATION Cardiovascular RiskHDL > or equal to 60 mg/dL LOWHDL < 40 mg/dL HIGH Cholesterol in LDL Calc [Mas s/Vol]Ordered By: Franck Posey on 07-18-2024 Cholesterol in LDL [Mass/Vol] Cholesterol in LDL [Mass/volume] in Serum or Plasma by calculation 0-100 [facility] Comment on above: LDL ATP III CLASSIFI CATIONLDL less than 100 mg/dL OptimalLDL 100-129 mg/dL Near or above optimalLDL 130-159 mg/dL Borderline highLDL 160-189 mg/dL HighLDL greater than 189 mg/dL Very high Cholesterol in VLDL Calc [Ma ss/Vol]Ordered By: Franck Posey on 07-18-2024 Cholesterol in VLDL [Mass/Vol] Cholesterol in VLDL [Mass/volume] in Serum or Plasma by calculation [facility] Creatinine [Mass/volume] in Serum or PlasmaOrdered By: Franck Posey on 07-18-2024 Creatinine [Mass/Vol] Creatinine [Mass/v olume] in Serum or Plasma 0.70-1.30 [facility] Glucose [Mass/volume] in Ser um or PlasmaOrdered By: Franck Posey on 07-18-2024 Glucose [Mass/Vol] Glucose [Mass/volume ] in Serum or Plasma High 70-100 [facility] Comment on above: ADA recommended refe rence rangeRandom Glucose Reference Range is dependent on time and content of last meal. Glucose of more than 200 mg/dL in a nonstressed, ambulatory subject supports the diagnosis of Diabetes Mellitus. High Sensitive CRPon 025 High Sensitive CRP 1.7 mg/L High 0.0-0.9 [facility] Comment on above: Result Comment: Card iovascular Risk Classification (AHA/CDC) hsCRP < 1.0 mg/l low relative risk for CVD hsCRP 1.0-3.0 mg/l average relative risk for CVD hsCRP > 3.0 mg/l high relative risk for CVD hsCRP > 7.5 mg/l active inflammation* Two results two weeks apart and averaged provide a more stable estimate of hsCRP level. *hsCRP levels > 7.5 mg/l may suggest infection that can limit the use of this marker for estimation of CVD risk. PERFORMED BY: [place] [address] PATHOLOGIST STRATEGIC PROCUREMENT MANAGER KUNAL MILLS M.D. Performed By: #### A ST, TSH3, BMP, BNP, HSCRP, LIPID #### [address] Lipid Panelon 07-18-2024 Cholesterol [Mass/Vol] 74 mg/dL Low 140-200 [facility] Comment on above: Result Comment: Chol less than 200 mg/dl low risk Chol 201-239 mg/dl borderline risk Chol 240 mg/dl and greater high risk Performed By: #### A ST, TSH3, BMP, BNP, HSCRP, LIPID #### [address] Cholesterol in HDL [Mass/Vol] 24 mg/dL Normal 23-92 [facility] Comment on above: Result Comment: HDL CHOL ATP-III CLASSIFICATION Cardiovascular Risk HDL > or equal to 60 mg/dL LOW HDL < 40 mg/dL HIGH Performed By: #### A ST, TSH3, BMP, BNP, HSCRP, LIPID #### [address] Cholesterol.total/Chol esterol in HDL [Mass ratio] 3.1 {ratio} Normal <5.0 [facility] Comment on above: Performed By: #### A ST, TSH3, BMP, BNP, HSCRP, LIPID #### [address] LDL Cholesterol,Calculated 31 mg/dL Normal 0-100 [facility] Comment on above: Result Comment: LDL ATP III CLASSIFICATION LDL less than 100 mg/dL Optimal LDL 100-129 mg/dL Near or above optimal LDL 130-159 mg/dL Borderline high LDL 160-189 mg/dL High LDL greater than 189 mg/dL Very high Performed By: #### A ST, TSH3, BMP, BNP, HSCRP, LIPID #### [facility] [address] [place] [address] [place] Triglyceride w/Reflex 96 mg/dL Normal 0-149 [facility] Comment on above: Result Comment: TRIG ATP III CLASSIFICATION TRIG less than 150 mg/dL Normal TRIG 150-199 mg/dL Borderline high TRIG 200-500 mg/dL High TRIG greater than 500 mg/dL Very high Standard traceable to the Center for Disease Conrtrol and Prevention (CDC) test method. Performed By: #### A ST, TSH3, BMP, BNP, HSCRP, LIPID #### [facility] [address] [place] [address] [place] VLDL CHOLESTEROL 19 mg/dL Normal [facility] Comment on above: Performed By: #### A ST, TSH3, BMP, BNP, HSCRP, LIPID #### [facility] [address] Natriuretic peptide B [Mass/ Vol]Ordered By: Franck Posey on 07-18-2024 Natriuretic peptide B (Bld) [Mass/Vol] BNP ser/plas High 5-100 [facility] No Panel InformationOrdered By: Franck Posey on 07-18-2024 Estimated GFR (CKD-EPI) > 60.0 mL/Min [facility] Creatinine Clearance (Chem N/A [facility] Potassium [Moles/volume] in Serum or PlasmaOrdered By: Franck Posey on 07-18-2024 Potassium [Moles/Vol] Potassium [Moles/v olume] in Serum or Plasma 3.5-5.1 [facility] Serum or plasma anion gap de terminationOrdered By: Franck Posey on 07-18-2024 Anion gap [Moles/Vol] Serum or plasma an ion gap determination 6.0-15.0 [facility] Serum or plasma total choles terol/high density lipoprotein (HDL) cholesterol mass ratOrdered By: Franck Posey on 07-18-2024 Cholesterol.total/Chol esterol in HDL [Mass ratio] Serum or plasma total cholesterol/high density lipoprotein (HDL) cholesterol mass rat <5.0 [facility] Sodium [Moles/volume] in Ser um or PlasmaOrdered By: Franck Posey on 07-18-2024 Sodium [Moles/Vol] Sodium [Moles/volume ] in Serum or Plasma 136-145 [facility] Thyroid Stimulating Hormoneo n 07-18-2024 TSH Qn 4.45 m[IU]/L Normal 0.45-5.33 [facility] Comment on above: Result Comment: PERF ORMED BY: [place] [address] PATHOLOGIST STRATEGIC PROCUREMENT MANAGER KUNAL MILLS M.D. Performed By: #### A ST, TSH3, BMP, BNP, HSCRP, LIPID #### [facility] [address] Thyrotropin [Units/volume] i n Serum or PlasmaOrdered By: Franck Posey on 07-18-2024 TSH Qn Thyrotropin [Units/v olume] in Serum or Plasma 0.45-5.33 [facility] Triglyceride [Mass/volume] i n Serum or PlasmaOrdered By: Franck Posey on 07-18-2024 Triglyceride [Mass/Vol] Triglyceride [Mass/volume] in Serum or Plasma 0-149 [facility] Comment on above: TRIG ATP III CLASSIF ICATIONTRIG less than 150 mg/dL NormalTRIG 150-199 mg/dL Borderline highTRIG 200-500 mg/dL High TRIG greater than 500 mg/dL Very highStandard traceable to the Center for Disease Conrtrol and Prevention (CDC) test method. Urea nitrogen [Mass/volume] in Serum or PlasmaOrdered By: Franck Posey on 07-18-2024 Urea nitrogen [Mass/Vol] Urea nitrogen [Mass/volume] in Serum or Plasma 7-25 [facility] X-ray reportOrdered By: Bran Neal on 07-18-2024 Study report [facility] [place] [address] [place] [address] XRay Report Signed Patient: Lesley Quintero MR#: [id number] : 1955 Acct:[id number] Age/Sex: 69 / M ADM Date: 5 Loc: RT Room: Type: REG CLI Attending Dr: Franck Posey DO Copies to: Franck Posey DO~ Ordering Provider: Franck Posey DO Date of Service: 07/18/24 XR/XR chest 2V*: I48.0, Chest 2 views CLINICAL HISTORY: Follow-up A. fib COMPARISON: Chest 05/10/2024 FINDINGS: Defibrillator device is in place. Heart is normal in size. Lungs are clear. No free air. XR/XR chest 2V* IMPRESSION: NO ACUTE CARDIOPULMONARY ABNORMALITY. Impression dictated by: Faustino Neal Jr., D.O. 07/18/2024 3:13 PM Dictation Location: RADIO-PC-22 Transcribed By: BERTHA 07/18/241512 Dictated By: Faustino Neal Jr, DO 07/18/241511 Signed By: 07/18/24 [facility] XR chest 2V*on 07-18-2024 XR chest 2V* [place] [address] XRay Report Signed Patient: Lesley Quintero MR#: [id number] : 1955 Acct:[id number] Age/Sex: 69 / M ADM Date: 07/18/24 Loc: RT Room: Type: [facility] CLI Attending Dr: Franck Posey DO Copies to: Franck Posey DO Ordering Provider: Franck Posey DO Date of Service: 07/18/24 XR/XR chest 2V*: I48.0, Chest 2 views CLINICAL HISTORY: Follow-up A. fib COMPARISON: Chest 05/10/2024 FINDINGS: Defibrillator device is in place. Heart is normal in size. Lungs are clear. No free air. XR/XR chest 2V* IMPRESSION: NO ACUTE CARDIOPULMONARY ABNORMALITY. Impression dictated by: Uvaldo Martínez Jr.OJohn Paul 07/18/2024 3:13 PM Dictation Location: RADIO-PC-22 Transcribed By: BERTHA 07/18/241512 Dictated By: Faustino Neal Jr, DO 07/18/241511 Signed By: 07/18/24 1513 [facility] ECG 12 Leadon 07-13-2024 AV sequential pacing , PVCs, abnormal ECG [facility] Work Phone: ECG 12 lead (Clinic Performe d)on 06-20-2024 See scan [facility] Work Phone: A1C with Estimated Average G luon 05-10-2024 Glucose [Mass/Vol] 324 mg/dL Normal [facility] Comment on above: Result Comment: PERF ORMED BY: [place] [address] PATHOLOGIST STRATEGIC PROCUREMENT MANAGER KUNAL MILLS M.D. Performed By: #### A 1C [facility] eA #### [address] HbA1c (Bld) [Mass fraction] 12.9 % High 4.3-5.6 [facility] Comment on above: Result Comment: Incr eased risk for diabetes: 5.7 - 6.4 diabetes: >6.4 glycemic control for adults with diabetes: <7.0 Performed By: #### A 1C [facility] eA #### [address] Blood estimated average gluc ose determination by estimation from glycated hemoglobinOrdered By: Lee Segovia on 05-10-2024 Average glucose Estimated from glycated hemoglobin (Bld) [Mass/Vol] Glucose mean value [Mass/volume] in Blood Estimated from glycated hemoglobin [facility] Hemoglobin A1c/Hemoglobin.to anthony in BloodOrdered By: Lee Segovia on 05-10-2024 HbA1c (Bld) [Mass fraction] Hemoglobin A1c percentage High 4.3-5.6 [facility] Comment on above: Increased risk for d iabetes: 5.7 - 6.4diabetes: >6.4glycemic control for adults with diabetes: <7.0 X-ray reportOrdered By: Rich Garcia on 05-10-2024 Study report [facility] [place] [address] [place] [address] XRay Report Signed Patient: Lesley Quintero MR#: [id number] : 1955 Acct:[id number] Age/Sex: 69 / M ADM Date: 5 Loc: RT Room: Type: REG CLI Attending Dr: Franck Posey DO Copies to: Franck Posey DO~ Ordering Provider: Franck Posey DO Date of Service: 05/10/24 XR/XR chest 2V*: I48.0,Z79.899 XR chest 2V* 05/10/2024 3:08 PM SIGNS AND SYMPTOMS: Follow-up A. fib, long-term high risk med use PROTOCOL: Frontal and lateral radiographs of the chest COMPARISON: 03/24/2023 FINDINGS: The trachea is midline. Sternotomy wires overlie the mediastinum. There is a pacer device which is unchanged. The heart and mediastinal structures are within normal limits. Mild interstitial prominence is redemonstrated bilaterally. The lung parenchyma is clear, otherwise. The bony thorax is intact. XR/XR chest 2V* IMPRESSION: Mild interstitial prominence is redemonstrated bilaterally. The lung parenchymais clear, otherwise. Impression dictated by: Rich Garcia M.D.05/10/2024 8:57 PM Dictation Location: [place] [address] Transcribed By: [facility] 05/10/242056 Dictated By: Rich Garcia II, MD 05/10/242053 Signed By: 05/10/242056 [facility] Work Phone: XR chest 2V*on 05-10-2024 XR chest 2V* [facility] [address] XRay Report Signed Patient: Lesley Quintero MR#: [id number] : 1955 Acct:[id number] Age/Sex: 69 / M ADM Date: 05/10/24 Loc: RT Room: Type: REG CLI Attending Dr: Franck Posey DO Copies to: Franck Posey DO Ordering Provider: Franck Posey DO Date of Service: 05/10/24 XR/XR chest 2V*: I48.0,Z79.899 XR chest 2V* 05/10/2024 3:08 PM SIGNS AND SYMPTOMS: Follow-up Maggi garcia, long-term high risk med use PROTOCOL: Frontal and lateral radiographs of the chest COMPARISON: 03/24/2023 FINDINGS: The trachea is midline. Sternotomy wires overlie the mediastinum. There is a pacer device which is unchanged. The heart and mediastinal structures are within normal limits. Mild interstitial prom inence is redemonstrated bilaterally. The lung parenchyma is clear, otherwise. The bony thorax is intact. XR/XR chest 2V* IMPRESSION: Mild interstitial prominence is redemonstrated bilaterally. The lung parenchyma is clear, otherwise. Impression dictated by: Rich Garcia M.D.05/10/2024 8:57 PM Dictation Location: [place] [address] Transcribed By: [facility] 05/10/242056 Dictated By: Rich Garcia II, MD 05/10/242053 Signed By: 05/10/242056 Normal [facility] Auditory function testson Bilateral Mild to pr ofound mixed hearing loss [facility] Estimated glomerular filtrat ion rate (GFR) non- Americanon 03-07-2024 GFR/1.73 sq M.predicted among non-blacks MDRD (S/P/Bld) [Vol rate/Area] Estimated glomerular filtration rate (GFR) non- Low >=60 mL/min/1.[address] [place] [address] Laboratory - Chemistry and C hemistry - challengeon 03-07-2024 Creatinine [Mass/Vol] 1.42 mg/dL High 0.70-1.30 [facility] GFR/1.73 sq M.predicted MDRD (S/P/Bld) [Vol rate/Area] mL/min/{1.73_m2} >=60 mL/min/1.[address] [place] [address] ECG 12 Leadon 01-12-2024 AV sequential pacema ker, T wave abnormality, abnormal ECG [facility] Work Phone: [facility] Work Phone: ECG 12 lead (Clinic Performe d)on 12-03-2023 See scan [facility] Work Phone: [facility] Work Phone: Cholesterol in LDL Calc [Mas s/Vol]on 10-08-2023 Cholesterol in LDL [Mass/Vol] 31.0 mg/dL [facility] Comment on above: <100 mg/dl [id number] 0-129 mg/dl NEAR OR ABOVE [id number] mg/dl BORDERLINE [id number] mg/dl HIGH>190 mg/dl VERY HIGH Cholesterol in VLDL Calc [Ma ss/Vol]on 10-08-2023 Cholesterol in VLDL [Mass/Vol] 25.4 mg/dL [facility] Estimated glomerular filtrat ion rate (GFR) non- Americanon 10-08-2023 GFR/1.73 sq M.predicted among non-blacks MDRD (S/P/Bld) [Vol rate/Area] 56 mL/min/{1.73_m2} Low >=60 [facility] Laboratory - Chemistry and C hemistry - challengeon 10-08-2023 AST [Catalytic activity/Vol] 29 U/L 15-37 [facility] Calcium [Mass/Vol] 8.2 mg/dL Low 8.5-10.1 [facility] Chloride [Moles/Vol] 103 mmol/L 98-107 [facility] Cholesterol [Mass/Vol] 83 mg/dL <=200 [facility] Cholesterol in HDL [Mass/Vol] 27 mg/dL Low 40-60 [facility] Comment on above: > or =60 mg/dl - LOW CARDIOVASCULAR RISK<40 mg/dl - HIGH CARDIOVASCULAR RISK CO2 [Moles/Vol] 26.0 mmol/L 21.0-32.0 [facility] Creatinine [Mass/Vol] 1.29 mg/dL 0.70-1.30 [facility] GFR/1.73 sq M.predicted MDRD (S/P/Bld) [Vol rate/Area] mL/min/{1.73_m2} >=60 [facility] Glucose [Mass/Vol] 178 mg/dL High 74-106 [facility] Potassium [Moles/Vol] 4.4 mmol/L 3.5-5.1 [facility] Sodium [Moles/Vol] 138 mmol/L 136-145 [facility] Triglyceride [Mass/Vol] 127 mg/dL <=150 [facility] TSH Qn 5.055 m[IU]/L High 0.358-3.74 0 [facility] Urea nitrogen [Mass/Vol] 19.0 mg/dL High 7.0-18.0 [facility] Urea nitrogen/Creatinine [Mass ratio] 14.7 mg/mg [facility] Serum or plasma anion gap de terminationon 10-08-2023 Anion gap [Moles/Vol] 13.4 mmol/L Fi [facility] Serum or plasma total choles terol/high density lipoprotein (HDL) cholesterol mass quin 10-08-2023 Cholesterol.total/Chol esterol in HDL [Mass ratio] 3.1 {ratio} [facility] Comment on above: 3.3 - 4.4 LOW RISK4. 4 - 7.1 AVERAGE RISK7.1 - 11.0 MODERATE RISK>11.0 HIGH RISK Estimated glomerular filtrat ion rate (GFR) non- Americanon 09-15-2023 GFR/1.73 sq M.predicted among non-blacks MDRD (S/P/Bld) [Vol rate/Area] mL/min/{1.73_m2} >=60 [facility] Laboratory - Chemistry and C hemistry - challengeon 09-15-2023 Calcium [Mass/Vol] 8.3 mg/dL Low 8.5-10.1 [facility] Chloride [Moles/Vol] 104 mmol/L 98-107 [facility] CO2 [Moles/Vol] 25.2 mmol/L 21.0-32.0 [facility] Creatinine [Mass/Vol] 1.15 mg/dL 0.70-1.30 [facility] GFR/1.73 sq M.predicted MDRD (S/P/Bld) [Vol rate/Area] mL/min/{1.73_m2} >=60 [facility] Glucose [Mass/Vol] 240 mg/dL High 74-106 [facility] Potassium [Moles/Vol] 4.4 mmol/L 3.5-5.1 [facility] Sodium [Moles/Vol] 138 mmol/L 136-145 [facility] Urea nitrogen [Mass/Vol] 15.0 mg/dL 7.0-18.0 [facility] Urea nitrogen/Creatinine [Mass ratio] 13.0 mg/mg [facility] Serum or plasma anion gap de terminationon 09-15-2023 Anion gap [Moles/Vol] 13.2 mmol/L [facility] No Panel Informationon 09-02 Levetiracetam (Keppra) Level 13.1 ug/mL 10.0-40.0 [facility] Comment on above: Performed at: [address] [id number] Director: Julia Arrington MD, Phone: [phone] TRANSTHORACIC ECHO (TTE) COM PLETEon 08-24-2023 TRANSTHORACIC ECHO (TTE) COMPLETE [address], [address] [place] [address] TRANSTHORACIC ECHOCARDIOGRAM REPORT Patient Name: LESLEY QUINTERO Reading Physician: [id number] Errol Huber MD Study Date: 08/24/2023 Ordering Provider: [id number] CARMEN HA MRN/PID: [id number] Fellow: Nurse: Date of /Age: 11 1955 / Filter Changer: Lesley Zuniga years Gender: M Additional Staff: Height: 175.26 cm Admit Date: 08/24/2023 Weight: 109.32 kg Admission Status: Outpatient BSA / BMI: 2.24 m2 / 35.59 Department Location: [facility] kg/m2 [facility] Blood Pressure: 120 /60 mmHg Study Type: TRANSTHORACIC ECHO (TTE) COMPLETE Diagnosis/ICD: Shortness of breath-R06.02 Indication: SOB CPT Codes: Echo Limited-80626 Patient History: Smoker: Current. Diabetes: Yes Pacer/Defib: [...] Max Wiliam: 0.7 (more content not included)... [facility] Basophils Auto (Bld) [#/Vol] on 08-02-2023 Basophils (Bld) [#/Vol] 0.1 10 3/uL 0.0-0.1 [facility] Basophils/100 WBC Auto (Bld) on 08-02-2023 Basophils/100 WBC (Bld) 0.8 % 0.2-2.0 [facility] Cholesterol in LDL Calc [Mas s/Vol]on 08-02-2023 Cholesterol in LDL [Mass/Vol] 31.0 mg/dL [facility] Comment on above: <100 mg/dl [id number] 0-129 mg/dl NEAR OR ABOVE [id number] mg/dl BORDERLINE [id number] mg/dl HIGH>190 mg/dl VERY HIGH Cholesterol in VLDL Calc [Ma ss/Vol]on 08-02-2023 Cholesterol in VLDL [Mass/Vol] 25.2 mg/dL [facility] Eosinophils/100 WBC Auto (Bl d)on 08-02-2023 Eosinophils/100 WBC (Bld) 6.2 % 0.9-7.0 [facility] Erythrocyte distribution wid th Auto (RBC) [Ratio]on 08-02-2023 Erythrocyte distribution width (RBC) [Ratio] 18.5 % High 11.0-15.0 [facility] Estimated glomerular filtrat ion rate (GFR) non- Americanon 08-02-2023 GFR/1.73 sq M.predicted among non-blacks MDRD (S/P/Bld) [Vol rate/Area] mL/min/{1.73_m2} >=60 [facility] Globulin Calc (S) [Mass/Vol] on 08-02-2023 Globulin (S) [Mass/Vol] 4.0 g/dL [facility] Glucose mean value [Mass/vol ume] in Blood Estimated from glycated hemoglobinon 08-02-2023 Average glucose Estimated from glycated hemoglobin (Bld) [Mass/Vol] 258 mg/dL [facility] Hematocrit Auto (Bld) [Volum e fraction]on 08-02-2023 Hematocrit (Bld) [Volume fraction] 37.2 % Low 42.0-54.0 [facility] Hemoglobin [Mass/volume] in Bloodon 08-02-2023 Hemoglobin (Bld) [Mass/Vol] 11.3 g/dL Low 14.0-18.0 [facility] Laboratory - Chemistry and C hemistry - challengeon 08-02-2023 Albumin [Mass/Vol] 3.4 g/dL 3.4-5.0 [facility] ALP [Catalytic activity/Vol] 99 U/L 46-116 [facility] ALT [Catalytic activity/Vol] 53 U/L 16-63 [facility] AST [Catalytic activity/Vol] 26 U/L 15-37 [facility] Bilirubin [Mass/Vol] 0.5 mg/dL 0.2-1.0 [facility] Calcium [Mass/Vol] 9.0 mg/dL 8.5-10.1 [facility] Chloride [Moles/Vol] 104 mmol/L 98-107 [facility] Cholesterol [Mass/Vol] 85 mg/dL <=200 [facility] Cholesterol in HDL [Mass/Vol] 29 mg/dL Low 40-60 [facility] Comment on above: > or =60 mg/dl - LOW CARDIOVASCULAR RISK<40 mg/dl - HIGH CARDIOVASCULAR RISK CO2 [Moles/Vol] 27.0 mmol/L 21.0-32.0 [facility] Creatinine [Mass/Vol] 1.08 mg/dL 0.70-1.30 [facility] GFR/1.73 sq M.predicted MDRD (S/P/Bld) [Vol rate/Area] mL/min/{1.73_m2} >=60 [facility] Glucose [Mass/Vol] 199 mg/dL High 74-106 [facility] Potassium [Moles/Vol] 4.2 mmol/L 3.5-5.1 [facility] Protein [Mass/Vol] 7.4 g/dL 6.4-8.2 [facility] Sodium [Moles/Vol] 138 mmol/L 136-145 [facility] Triglyceride [Mass/Vol] 126 mg/dL <=150 [facility] Urea nitrogen [Mass/Vol] 20.0 mg/dL High 7.0-18.0 [facility] Urea nitrogen/Creatinine [Mass ratio] 18.5 mg/mg [facility] Laboratory - Hematology and Cell countson 08-02-2023 HbA1c (Bld) [Mass fraction] 10.6 % High 4.5-6.2 [facility] Comment on above: ADA RECOMMENDED LIMI T 4.0 - 6.0ADA THERAPEUTIC TARGET < 7.0ACTION SUGGESTED> 7.0 Immature granulocytes/100 WBC (Bld) 0.2 % 0.0-0.5 [facility] Leukocytes [#/volume] correc lily for nucleated erythrocytes in Blood by Automated counon 08-02-2023 WBC corrected for nucl RBC Auto (Bld) [#/Vol] 8.2 10 3/uL 4.0-11.0 [facility] Lymphocytes Auto (Bld) [#/Vo l]on 08-02-2023 Lymphocytes (Bld) [#/Vol] 3.0 10 3/uL 1.2-3.8 [facility] Lymphocytes/100 WBC Auto (Bl d)on 08-02-2023 Lymphocytes/100 WBC (Bld) 36.4 % 20.5-60.0 [facility] MCH Auto (RBC) [Entitic mass ]on 08-02-2023 MCH (RBC) [Entitic mass] 24.5 pg Low 25.9-34.0 [facility] MCHC Auto (RBC) [Mass/Vol]on 08-02-2023 MCHC (RBC) [Mass/Vol] 30.4 g/dL 29.9-35.2 [facility] MCV Auto (RBC) [Entitic vol] on 08-02-2023 MCV (RBC) [Entitic vol] 80.5 fL 80.0-94.0 [facility] Microalbumin [Mass/volume] i n Urineon 08-02-2023 Albumin DL <= 20 mg/L (U) [Mass/Vol] 15.5 mg/dL <=30.0 [facility] Monocytes Auto (Bld) [#/Vol] on 08-02-2023 Monocytes (Bld) [#/Vol] 0.9 10 3/uL High 0.3-0.8 [facility] Monocytes/100 WBC Auto (Bld) on 08-02-2023 Monocytes/100 WBC (Bld) 10.3 % 1.7-12.0 [facility] Neutrophils Auto (Bld) [#/Vo l]on 08-02-2023 Neutrophils (Bld) [#/Vol] 3.8 10 3/uL 1.4-6.5 [facility] Neutrophils/100 WBC Auto (Bl d)on 08-02-2023 Neutrophils/100 WBC (Bld) 46.1 % 43.0-75.0 [facility] No Panel Informationon 08-01 Eosinophils # (Auto) 0.5 10 3/uL 0.0-0.7 [facility] Immature Granulocyte # (Auto) 0.02 10 3/uL 0.00-0.03 [facility] Prostate Specific Antigen Screen 0.49 ng/mL <=4.00 [facility] Platelet mean volume Auto (B ld) [Entitic vol]on 08-02-2023 Platelet mean volume (Bld) [Entitic vol] 11.3 fL 9.5-13.5 [facility] Platelets Auto (Bld) [#/Vol] on 08-02-2023 Platelets (Bld) [#/Vol] 245 10 3/uL 150-450 [facility] RBC Auto (Bld) [#/Vol]on RBC (Bld) [#/Vol] 4.62 10 6/uL Low 4.70-6.10 [facility] Serum or plasma albumin/glob ulin mass ratioon 08-02-2023 Albumin/Globulin [Mass ratio] 0.9 {ratio} [facility] Serum or plasma anion gap de terminationon 08-02-2023 Anion gap [Moles/Vol] 11.2 mmol/L [facility] Serum or plasma total choles terol/high density lipoprotein (HDL) cholesterol mass quin 08-02-2023 Cholesterol.total/Chol esterol in HDL [Mass ratio] 2.9 {ratio} [facility] Comment on above: 3.3 - 4.4 LOW RISK4. 4 - 7.1 AVERAGE RISK7.1 - 11.0 MODERATE RISK>11.0 HIGH RISK ECG 12 Leadon 07-13-2023 Atrial fibrillation, AV sequential pacing, PVCs, abnormal ECG [facility] Work Phone: XR Chest 2 Viewson These images are not reportable by radiology and will not be interpreted by Radiologists. IMAGING XR Chest 2 Viewson 4 1. No evidence of ac [place] cardiopulmonary process. MACRO: None Signed by: Roel Strickland 05/22/2023 10:28 AM Dictation workstation: [id number] MMODAL Interpreted By: Roel Blount, STUDY: XR CHEST 2 VIEWS; 05/21/2023 12:44 pm INDICATION: Signs/Symptoms:lead placement. COMPARISON: 01/26/2023 ACCESSION NUMBER(S): [id number] ORDERING CLINICIAN: CARMEN HA FINDINGS: Left-sided pacemaker in place. Median sternotomy wires. CARDIOMEDIASTINAL SILHOUETTE: Cardiomediastinal silhouette is normal in size and configuration. LUNGS: Lungs are clear. ABDOMEN: No remarkable upper abdominal findings. BONES: No acute osseous changes. MMODAL Roel Strickland MD - 05/22/2023 Interpreted By: Roel Strickland, STUDY: XR CHEST 2 VIEWS; 05/21/2023 12:44 pm INDICATION: Signs/Symptoms:lead placement. COMPARISON: 01/26/2023 ACCESSION NUMBER(S): [id number] ORDERING CLINICIAN: CARMEN HA FINDINGS: Left-sided pacemaker in place. Median sternotomy wires. CARDIOMEDIASTINAL SILHOUETTE: Cardiomediastinal silhouette is normal in size and configuration. LUNGS: Lungs are clear. ABDOMEN: No remarkable upper abdominal findings. BONES: No acute osseous changes. IMPRESSION: 1. No evidence of acute cardiopulmonary process. MACRO: None Signed by: Roel Strickland 05/22/2023 10:28 AM Dictation workstation: [id number] [facility] Work Phone: XR Chest 2 ViewsOrdered By: Roel Strickland on 05-22-2023 [facility] Work Phone: ECG 12 lead (Clinic Performe d)on 05-21-2023 [facility] Work Phone: XR Chest 2 Viewson Radiology Study observation (narrative) [facility] Work Phone: Aspartate aminotransferase [ Enzymatic activity/volume] in Serum or PlasmaOrdered By: Franck Posey on 03-24-2023 AST [Catalytic activity/Vol] 34 U/L 13-39 [facility] Calcium [Mass/volume] in Ser um or PlasmaOrdered By: Franck Posey on 03-24-2023 Calcium [Mass/Vol] 9.5 mg/dL 8.6-10.3 [facility] Carbon dioxide, total [Moles /volume] in Serum or PlasmaOrdered By: Franck Posey on 03-24-2023 CO2 [Moles/Vol] 28.4 mmol/L 21.0-31.0 [facility] Chloride [Moles/volume] in S radha or PlasmaOrdered By: Franck Posey on 03-24-2023 Chloride [Moles/Vol] 106 mmol/L 98-107 [facility] Creatinine [Mass/volume] in Serum or PlasmaOrdered By: Franck Posey on 03-24-2023 Creatinine [Mass/Vol] 1.22 mg/dL 0.70-1.30 [facility] Glucose [Mass/volume] in Ser um or PlasmaOrdered By: Franck Posey on 03-24-2023 Glucose [Mass/Vol] 179 mg/dL 70-100 [facility] Comment on above: ADA recommended refe rence rangeRandom Glucose Reference Range is dependent on time and content of last meal. Glucose of more than 200 mg/dL in a nonstressed, ambulatory subject supports the diagnosis of Diabetes Mellitus. No Panel InformationOrdered By: Franck Posey on 03-24-2023 Estimated GFR (CKD-EPI) > 60.0 mL/Min [facility] Creatinine Clearance (Chem N/A [facility] Potassium [Moles/volume] in Serum or PlasmaOrdered By: Franck Posey on 03-24-2023 Potassium [Moles/Vol] 5.4 mmol/L 3.5-5.1 [facility] Serum or plasma anion gap de terminationOrdered By: Franck Posey on 03-24-2023 Anion gap [Moles/Vol] 11.0 mmol/L 6.0-15.0 [facility] Sodium [Moles/volume] in Ser um or PlasmaOrdered By: Franck Posey on 03-24-2023 Sodium [Moles/Vol] 140 mmol/L 136-145 [facility] Thyrotropin [Units/volume] i n Serum or PlasmaOrdered By: Franck Posey on 03-24-2023 TSH Qn 5.21 m[IU]/L 0.45-5.33 [facility] Urea nitrogen [Mass/volume] in Serum or PlasmaOrdered By: Franck Posey on 03-24-2023 Urea nitrogen [Mass/Vol] 17 mg/dL 7-25 [facility] ECG 12-LEADon 01-07-2023 ECG 12-LEAD Ventricular Rate 87 Atrial Rate 68 QRS Duration 114 Q-T Interval 436 QTC Calculation(Bazett) 524 R Rainier 46 T Rainier -64 QRS Count 15 Q Onset 214 T Offset 432 QTC Fredericia 493 Diagnosis Ventricular-paced rhythm PVC's Abnormal ECG When compared with ECG of 07-JAN-2023 07:58, (unconfirmed) Electronic ventricular pacemaker has replaced Electronic atrial pacemaker Confirmed by Darnell Bruce ([id number]) on 01/07/2023 3:28:55 PM Normal [facility] ECG 12-LEAD Ventricular Rate 70 Atrial Rate 70 P-R Interval 190 QRS Duration 174 Q-T Interval 504 QTC Calculation(Bazett) 544 R Rainier -78 T Rainier 71 QRS Count 11 Q Onset 196 T Offset 448 QTC Fredericia 530 Diagnosis AV sequential or dual chamber electronic pacemaker Abnormal ECG Confirmed by Darnell Bruce ([id number]) on 01/07/2023 3:26:08 PM Normal [facility] Office Visit (Cardiology)on 11-30-2022 Follow-up visit Diagnoses/Problems [...] (V72.81) (Z01.810) Atherosclerosis of coronary artery of [place] heart without angina pectoris (414.01) (I25.10) Cardiac [...] Ha. 1 Upgrade to Biventricular Device at [place] [address] 1 Amended By: Nadeem Townsend; Nov 30 [...] s/p dual chamber pacemaker. Treatment options discussed. ActiViews decision tool. For upgrade to biventricular ICD. [...] are indications for biventricular device, pacemaker removal, ActiViews decision tool, informed consent, Lovenox bridge, possibility of unable to place CS lead, device followup, tobacco cessation for greater than 3 minutes, if and what medication refills needed, treatment options, brochure for SVT, meds vs ablation, Holter results, risks, benefits, and imponderables. [employer] lifestyle changes and behavioral modification discussed. All questions answered in detail. Counseling over 50% visit regarding above. Patient and family appreciative of care. Active Problems Problems Anticoagulated (V58.61) (Z79.01) Atherosclerosis of coronary artery of [place] heart without angina pectoris (414.01) (I25.10) Cardiac [...] sick sinus (more content not included)... Normal [employer] Tobacco Screening.on 023 Adult depression screening assessment No [facility] [employer] DO Work Phone: Fall risk assessment a) No falls within the last year [facility] [employer] DO Work Phone: Tobacco use status CP a) Yes [facility] [employer] DO Work Phone: Tobacco Screening. Yes [facility] [employer] DO Work Phone: Office Visit (Cardiology)on 11-25-2022 Follow-up visit Diagnoses/Problems Assessed Atherosclerosis of coronary artery of [place] heart without angina pectoris (414.01) (I25.10) Oct 2022 cardiac cath Newly occluded pAV CX/dCX/OM2 COLLEGE ADVISOR RCA AND SVG - RCA RAMIREZ-LAD patent [...] Treatment Evaluate AND Treat upgrade ICD possible GRADER MEAT Status: Active Requested for: 30Nov2022 AMA Intake updated by [facility] ACCOUNT (INTRANET) on 2022-11-27 22:02 New Recipient: [...] we can help. You may also call [phone]-[phone] for free resources and assistance.; Status:Complete; Done: [id number] Tobacco Use Screening; Status:Complete; Done: [id number] CHF (NYHA class III, ACC/AHA stage C) [...] Referral to Dr. Ha for ICD possible GRADER MEAT upgrade 3. Return for follow-up; in the [...] is borderlin (more content not included)... Normal [place] Tobacco Screening.on 023 Fall risk assessment a) No falls within the last year [facility] [employer] DO Work Phone: Tobacco use status CPHS a) Yes [facility] [employer] DO Work Phone: Tobacco Screening. Yes [facility] [employer] DO Work Phone: Activated partial thrombopla stin time (aPTT) in platelet poor plasma by coagulation aOrdered By: Franck Posey on 11-19-2022 aPTT Coag (PPP) [Time] 28.8 s 25.1-36.5 [facility] INR in Platelet poor plasma by Coagulation assayOrdered By: Franck Posey on 11-19-2022 INR Coag (PPP) [Relative time] 1.0 {INR} [facility] Comment on above: INR Therapeutic [...] PT Coag (PPP) [Time] 12.1 s 9.0-12.9 [facility] No Panel Informationon 11-19 28.8\S\28.8 Normal 25.1-36.5 [facility] DO Work Phone: Comment on above: PERFORMED BY:[facility] [place], [place] [phone] MEDICAL DIRECTORHAILEY CALDERÓN M.D. 1.0\S\1.0 [facility] Work Phone: Comment on above: [...] valves: 3 - 4.5 12.1\S\12.1 Normal 9.0-12.9 [facility] Work Phone: Activated partial thrombopla stin time (aPTT) in platelet poor plasma by coagulation aOrdered By: Franck Posey on 11-13-2022 aPTT Coag (PPP) [Time] 37.0 s 25.1-36.5 [facility] Basophils Auto (Bld) [#/Vol] Ordered By: Franck Posey on 11-13-2022 Basophils (Bld) [#/Vol] 0.1 10*3/uL 0.0-0.2 [facility] Basophils/100 WBC Auto (Bld) Ordered By: Franck Posey on 11-13-2022 Basophils/100 WBC (Bld) 0.6 % . [facility] Carbon dioxide, total [Moles /volume] in Serum or PlasmaOrdered By: Franck Posey on 11-13-2022 CO2 [Moles/Vol] 28.0 mmol/L 21.0-31.0 [facility] Chloride [Moles/volume] in S ardha or PlasmaOrdered By: Franck Posey on 11-13-2022 Chloride [Moles/Vol] 104 mmol/L 98-107 [facility] Cholesterol [Mass/volume] in Serum or PlasmaOrdered By: Franck Posey on 11-13-2022 Cholesterol [Mass/Vol] 104 mg/dL 140-200 [facility] Comment on above: Chol less than 200 m g/dl low riskChol 201-239 mg/dl borderline riskChol 240 mg/dl and greater high risk Cholesterol in LDL Calc [Mas s/Vol]Ordered By: Franck Posey on 11-13-2022 Cholesterol in LDL [Mass/Vol] 47 mg/dL 0-100 [facility] Comment on above: LDL ATP III CLASSIFI CATIONLDL less than 100 mg/dL OptimalLDL 100-129 mg/dL Near or above optimalLDL 130-159 mg/dL Borderline highLDL 160-189 mg/dL HighLDL greater than 189 mg/dL Very high Cholesterol in VLDL Calc [Ma ss/Vol]Ordered By: Franck Posey on 11-13-2022 Cholesterol in VLDL [Mass/Vol] 32 mg/dL [facility] Creatinine [Mass/volume] in Serum or PlasmaOrdered By: Franck Posey on 11-13-2022 Creatinine [Mass/Vol] 1.16 mg/dL 0.70-1.30 [facility] Eosinophils Auto (Bld) [#/Vo l]Ordered By: Franck Posey on 11-13-2022 Eosinophils (Bld) [#/Vol] 0.5 10*3/uL 0.0-0.45 [facility] Eosinophils/100 WBC Auto (Bl d)Ordered By: Franck Posey on 11-13-2022 Eosinophils/100 WBC (Bld) 5.2 % . [facility] Erythrocyte distribution wid th Auto (RBC) [Ratio]Ordered By: Franck Posey on 11-13-2022 Erythrocyte distribution width (RBC) [Ratio] 19.5 % 12.0-14.8 [facility] Hematocrit Auto (Bld) [Volum e fraction]Ordered By: Franck Posey on 11-13-2022 Hematocrit (Bld) [Volume fraction] 38.7 % 38.8-50.0 [facility] Hemoglobin [Mass/volume] in BloodOrdered By: Franck Posey on 11-13-2022 Hemoglobin (Bld) [Mass/Vol] 12.6 g/dL 13.0-17.0 [facility] INR in Platelet poor plasma by Coagulation assayOrdered By: Franck Posey on 11-13-2022 INR Coag (PPP) [Relative time] 2.0 {INR} [facility] Comment on above: INR Therapeutic [...] Cholesterol [Mass/Vol] 104\S\104 below low threshold 140-200 [facility] [place] 250 DO Work Phone: Comment on above: Chol less than 200 m g/dl low risk Chol 201-239 mg/dl borderline risk Chol 240 mg/dl and greater high risk Cholesterol in LDL [Mass/Vol] 47\S\47 Normal 0-100 [facility] [place] 250 DO Work Phone: Comment on above: LDL ATP III CLASSIFI CATION LDL less than 100 mg/dL Optimal LDL 100-129 mg/dL Near or above optimal LDL 130-159 mg/dL Borderline high LDL 160-189 mg/dL High LDL greater than 189 mg/dL Very high Laboratory - CoagulationOrde red By: Franck Posey on 11-13-2022 PT Coag (PPP) [Time] 22.7 s 9.0-12.9 [facility] Leukocytes [#/volume] correc lily for nucleated erythrocytes in Blood by Automated counOrdered By: Franck Posey on 11-13-2022 WBC corrected for nucl RBC Auto (Bld) [#/Vol] 8.9 10*3/uL 4.1-10.5 [facility] Lymphocytes Auto (Bld) [#/Vo l]Ordered By: Franck Posey on 11-13-2022 Lymphocytes (Bld) [#/Vol] 3.1 10*3/uL 1.00-4.8 [facility] Lymphocytes/100 WBC Auto (Bl d)Ordered By: Franck Posey on 11-13-2022 Lymphocytes/100 WBC (Bld) 35.2 % . [facility] MCH Auto (RBC) [Entitic mass ]Ordered By: Franck Posey on 11-13-2022 MCH (RBC) [Entitic mass] 27.0 pg 27.5-35.2 [facility] MCHC Auto (RBC) [Mass/Vol]Or dered By: Franck Posey on 11-13-2022 MCHC (RBC) [Mass/Vol] 32.6 g/dL 32.5-35.6 [facility] MCV Auto (RBC) [Entitic vol] Ordered By: Franck Posey on 11-13-2022 MCV (RBC) [Entitic vol] 82.6 fL 83.5-101 [facility] Monocytes Auto (Bld) [#/Vol] Ordered By: Franck Posey on 11-13-2022 Monocytes (Bld) [#/Vol] 0.8 10*3/uL 0.0-0.8 [facility] Monocytes/100 WBC Auto (Bld) Ordered By: Franck Posey on 11-13-2022 Monocytes/100 WBC (Bld) 9.4 % . [facility] Neutrophils Auto (Bld) [#/Vo l]Ordered By: Franck Posey on 11-13-2022 Neutrophils (Bld) [#/Vol] 4.4 10*3/uL 1.8-7.7 [facility] Neutrophils/100 WBC Auto (Bl d)Ordered By: Franck Posey on 11-13-2022 Neutrophils/100 WBC (Bld) 49.6 % . [facility] No Panel InformationOrdered By: Franck Posey on 11-13-2022 Estimated GFR (CKD-EPI) > 60.0 mL/Min [facility] Creatinine Clearance (Chem N/A [facility] No Panel Informationon 11-13 37.0\S\37.0 above high threshold 25.1-36.5 [facility] ResearchL[facility] CenterEcowell emily 250 DO Work Phone: Comment on above: PERFORMED BY:[address] [place] [address] [address] [place], [place] [phone] MEDICAL DIRECTORHAILEY CALDERÓN M.D. 2.0\S\2.0 Normal -[facility]Deep[facility] emily 250 DO Work Phone: Comment on [...] - 4.5 22.7\S\22.7 above high threshold 9.0-12.9 [facility]-Sand[facility] emily 250 DO Work Phone: [phone] 49.6\S\49.6 Normal . -[facility] emily 250 DO Work Phone: [phone] 9.9\S\9.9 Normal 6.6-10.1 -[facility] emily 250 DO Work Phone: [phone] 183\S\183 Normal 150-450 -[facility] emily 250 DO Work Phone: [phone] 19.5\S\19.5 above high threshold 12.0-14.8 -[facility] emily 250 DO Work Phone: [phone] 32.6\S\32.6 Normal 32.5-35.6 [facility] emily 250 DO Work Phone: [phone] 27.0\S\27.0 below low threshold 27.5-35.2 -[facility] emily 250 DO Work Phone: [phone] 4.4\S\4.4 Normal 1.8-7.7 -[facility] emily 250 DO Work Phone: [phone] 0.1\S\0.1 Normal 0.0-0.2 -[facility] emily 250 DO Work Phone: [phone] Comment on above: PERFORMED BY:[address] [place] [address] [address] [place], [place] [phone] MEDICAL DIRECTORJIANLAN SUN M.D. 0.6\S\0.6 Normal . [facility] emily 250 DO Work Phone: [phone] 5.2\S\5.2 Normal . [facility] emily 250 DO Work Phone: [phone] 9.4\S\9.4 Normal . [facility] emily 250 DO Work Phone: [phone] 35.2\S\35.2 Normal . [facility] emily 250 DO Work Phone: [phone] 0.5\S\0.5 above high threshold 0.0-0.45 -[facility] emily 250 DO Work Phone: [phone] 0.8\S\0.8 Normal 0.0-0.8 [facility] emily 250 DO Work Phone: [phone] 3.1\S\3.1 Normal 1.00-4.8 [facility] emily 250 DO Work Phone: [phone] 82.6\S\82.6 below low threshold 83.5-101 [facility] emily 250 DO Work Phone: [phone] 38.7\S\38.7 below low threshold 38.8-50.0 [facility] em[facility] 250 DO Work Phone: [phone] 12.6\S\12.6 below low threshold 13.0-17.0 [facility] em[facility] 250 DO Work Phone: [phone] 4.68\S\4.68 Normal 3.90-5.60 [facility] emily 250 DO Work Phone: [phone] 8.9\S\8.9 Normal 4.1-10.5 [facility] emily 250 DO Work Phone: [phone] 8.7\S\8.7 Normal 6.0-15.0 [facility] emily 250 DO Work Phone: [phone] 28.0\S\28.0 Normal 21.0-31.0 [facility] Ashley diaz 250 DO Work Phone: 104\S\104 Normal 98-107 [facility] Ashley diaz 250 DO Work Phone: [phone] 4.7\S\4.7 Normal 3.5-5.1 [facility] HeartAmber diaz 250 DO Work Phone: 136\S\136 Normal 136-145 [facility] Ashley diaz 250 DO Work Phone: [phone] 15\S\15 Normal 7-25 [facility] Ashley diaz 250 DO Work Phone: > 60.0 Normal [facility] Ashley diaz 250 DO Work Phone: 1.16\S\1.16 Normal 0.70-1.30 [facility] Ashley diaz 250 DO Work Phone: 4.3\S\4.3 Normal <5.0 [facility] Ashley diaz 250 DO Work Phone: Comment on above: PERFORMED BY:[address] [place] [address] [address] [place], [place] [phone] MEDICAL DIRECTORHAILEY CALDERÓN M.D. 32\S\32 Normal [facility] Ashley diaz 250 DO Work Phone: 164\S\164 above high threshold 0-149 [facility] Ashley diaz 250 DO Work Phone: Comment on above: TRIG ATP III CLASSIF ICATION TRIG less than 150 mg/dL Normal TRIG 150-199 mg/dL Borderline high TRIG 200-500 mg/dL High TRIG greater than 500 mg/dL Very high Standard traceable to the Center for Disease Conrtrol and Prevention (CDC) test method. 24\S\24 Normal 23-92 [facility] Ashley diaz 250 DO Work Phone: Comment on above: HDL CHOL ATP-III CLA SSIFICATION Cardiovascular Risk HDL > or equal to 60 mg/dL LOW HDL < 40 mg/dL HIGH Nucleated erythrocytes [Pres ence] in Blood by Automated countOrdered By: Franck Posey on 11-13-2022 Nucleated RBC Auto Ql (Bld) 0.1 /100{WBC} 0-0.5 [facility] Platelet mean volume Auto (B ld) [Entitic vol]Ordered By: Franck Posey on 11-13-2022 Platelet mean volume (Bld) [Entitic vol] 9.9 fL 6.6-10.1 [facility] Platelets Auto (Bld) [#/Vol] Ordered By: Franck Posey on 11-13-2022 Platelets (Bld) [#/Vol] 183 10*3/uL 150-450 [facility] Potassium [Moles/volume] in Serum or PlasmaOrdered By: Franck Posey on 11-13-2022 Potassium [Moles/Vol] 4.7 mmol/L 3.5-5.1 [facility] RBC Auto (Bld) [#/Vol]Ordere d By: Franck Posey on 11-13-2022 RBC (Bld) [#/Vol] 4.68 10*6/uL 3.90-5.60 [facility] Serum or plasma anion gap de terminationOrdered By: Franck Posey on 11-13-2022 Anion gap [Moles/Vol] 8.7 mmol/L 6.0-15.0 [facility] Serum or plasma high density lipoprotein (HDL) cholesterol measurementOrdered By: Franck Posey on 11-13-2022 Cholesterol in HDL [Mass/Vol] 24 mg/dL 23-92 [facility] Comment on above: HDL CHOL ATP-III CLA SSIFICATION Cardiovascular RiskHDL > or equal to 60 mg/dL LOWHDL < 40 mg/dL HIGH Serum or plasma total choles terol/high density lipoprotein (HDL) cholesterol mass ratOrdered By: Franck Posey on 11-13-2022 Cholesterol.total/Chol esterol in HDL [Mass ratio] 4.3 {ratio} <5.0 [facility] Sodium [Moles/volume] in Ser um or PlasmaOrdered By: Franck Posey on 11-13-2022 Sodium [Moles/Vol] 136 mmol/L 136-145 [facility] Triglyceride [Mass/volume] i n Serum or PlasmaOrdered By: Franck Posey on 11-13-2022 Triglyceride [Mass/Vol] 164 mg/dL 0-149 [facility] Comment on above: TRIG ATP III CLASSIF ICATIONTRIG less than 150 mg/dL NormalTRIG 150-199 mg/dL Borderline highTRIG 200-500 mg/dL High TRIG greater than 500 mg/dL Very highStandard traceable to the Center for Disease Conrtrol and Prevention (CDC) test method. Urea nitrogen [Mass/volume] in Serum or PlasmaOrdered By: Franck Posey on 11-13-2022 Urea nitrogen [Mass/Vol] 15 mg/dL - [facility] WBC Auto (Bld) [#/Vol]Ordere d By: Franck Posey on 11-13-2022 WBC (Bld) [#/Vol] 8.9 10*3/uL 4.1-10.5 [facility] Echocardiogramon 10-28-[address], [address] [place] [address] TRANSTHORACIC ECHOCARDIOGRAM REPORT Patient Name: LESLEY Vann Physician: [id number] Jesus QUINTERO Study Date: 10/28/2022 Referring JESUS POSEY Physician: MRN/PID: [id number] PCP: Lee Segovia Accession/Order#: [id number] [facility] Location: [place] Date of : 1955 Fellow: Gender: M Nurse: Romana Jaramillo RN Admit Date: Filter Changer: Anisa White [facility], T Height: 175.26 cm CC Report to: Weight: 107.96 kg Study Type: Echocardiogram BSA: 2.22 m2 Blood Pressure: 128 /70 mmHg Diagnosis/ICD: Q30-Dgewftttt (primary) hypertension; I48.0-Paroxysmal atrial fibrillation; R06.02-Shortness of breath Indication: Sick Sinus Syndrome, Pacemaker, CAD, DE and CABG-2018, COPD, Diabetes, Hyperlipidemia, Tobacco Abuse, Dementia, CVA, Ischemic Cardiomyopathy, Obesity, EMIL Procedure/CPT: Echo Complete w Full Doppler-[id number] Study Detail: The following Echo studies were [...] 0.6 m/s (0.6-0.9m/s) PV Max P.2 mmHg [id number] Jesus Fregoso MD Electronically signed on 11/02/2022 at 2:48:52 PM Final Normal [facility] Aspartate aminotransferase [ Enzymatic activity/volume] in Serum or PlasmaOrdered By: Franck Posey on 08-05-2022 AST [Catalytic activity/Vol] 27 U/L 13-39 [facility] Calcium [Mass/volume] in Ser um or PlasmaOrdered By: Franck Posey on 08-05-2022 Calcium [Mass/Vol] 8.7 mg/dL 8.6-10.3 [facility] Carbon dioxide, total [Moles /volume] in Serum or PlasmaOrdered By: Franck Posey on 08-05-2022 CO2 [Moles/Vol] 27.4 mmol/L 21.0-31.0 [facility] Chloride [Moles/volume] in S radha or PlasmaOrdered By: Franck Posey on 08-05-2022 Chloride [Moles/Vol] 106 mmol/L 98-107 [facility] Creatinine [Mass/volume] in Serum or PlasmaOrdered By: Franck Posey on 08-05-2022 Creatinine [Mass/Vol] 1.08 mg/dL 0.70-1.30 [facility] Glucose [Mass/volume] in Ser um or PlasmaOrdered By: Franck Posey on 08-05-2022 Glucose [Mass/Vol] 164 mg/dL 70-100 [facility] Comment on above: ADA recommended refe rence rangeRandom Glucose Reference Range is dependent on time and content of last meal. Glucose of more than 200 mg/dL in a nonstressed, ambulatory subject supports the diagnosis of Diabetes Mellitus. No Panel InformationOrdered By: Franck Posey on 08-05-2022 Estimated GFR (CKD-EPI) > 60.0 mL/Min [facility] Creatinine Clearance (Chem N/A [facility] No Panel Informationon 08-05 > 60.0 Normal [place] Work Phone: 8.7\S\8.7 Normal 8.6-10.3 [place] Work Phone: 27.4\S\27.4 Normal 21.0-31.0 [place] Work Phone: 106\S\106 Normal 98-107 [place] Work Phone: 5.1\S\5.1 Normal 3.5-5.1 [place] Work Phone: 137\S\137 Normal 136-145 [place] Work Phone: 1.08\S\1.08 Normal 0.70-1.30 [place] Work Phone: 15\S\15 Normal 7-25 [place] Work Phone: 164\S\164 above high threshold 70-100 [place] Work Phone: Comment on above: Random Glucose Refer ence Range is dependent on time and content of last meal. Glucose of more than 200 mg/dL in a nonstressed, ambulatory subject supports the diagnosis of Diabetes Mellitus. ADA recommended reference range 27\S\27 Normal 13-39 [place] Work Phone: 3.86\S\3.86 Normal 0.45-5.33 [place] Work Phone: Comment on above: PERFORMED BY:[facility] [place], [place] [phone] MEDICAL DIRECTORHAILEY CALDERÓN M.D. Potassium [Moles/volume] in Serum or PlasmaOrdered By: Franck Posey on 08-05-2022 Potassium [Moles/Vol] 5.1 mmol/L 3.5-5.1 [facility] Radiologyon 08-05-2022 XR Chest 2 Views Normal [facility] Work Phone: Serum or plasma anion gap de terminationOrdered By: Franck Posey on 08-05-2022 Anion gap [Moles/Vol] 8.7 mmol/L 6.0-15.0 [facility] Sodium [Moles/volume] in Ser um or PlasmaOrdered By: Franck Posey on 08-05-2022 Sodium [Moles/Vol] 137 mmol/L 136-145 [facility] Thyrotropin [Units/volume] i n Serum or PlasmaOrdered By: Franck Posey on 08-05-2022 TSH Qn 3.86 m[IU]/L 0.45-5.33 [facility] Urea nitrogen [Mass/volume] in Serum or PlasmaOrdered By: Franck Posey on 08-05-2022 Urea nitrogen [Mass/Vol] 15 mg/dL - [facility] Office Visit (Cardiology)on 07-14-2022 Follow-up visit Diagnoses/Problems Assessed Dementia (294.20) (F03.90) Diabetes mellitus (250.00) (E11.9) Paroxysmal atrial fibrillation (427.31) (I48.0) Atherosclerosis of coronary artery of [place] heart without angina pectoris (414.01) (I25.10) H/O [...] daily Orders Atherosclerosis of coronary artery of [place] heart without angina pectoris Renew: Aspirin EC 81 MG Oral Tablet Delayed Release; TAKE 1 TABLET DAILY Atherosclerosis of coronary artery of [place] heart without angina pectoris, Diabetes mellitus, Hypertension, Ischemic cardiomyopathy, Shortness of breath Basic Metabolic Panel; Status:Active - Retrospective Authorization; Requested for:[id number]; Atherosclerosis of coronary artery of [place] heart without angina pectoris, Hyperlipidemia Renew: Atorvastatin [...] Echocardiogram; Status:Hold For - Scheduling,Retrospective Authorization; Requested for:[id number]; Paroxysmal atrial fibrillation Renew: Amiodarone HCl - 200 MG Oral Tablet; Take 1 tablet daily IO EKG Electrocardiogram- 12 Lead; Status:Complete; Done: 14Jul2022 SocHx: Current every day smoker Tobacco Use Screening; Status:Complete; Done: [id number] Patient Instructions Please bring all medicines, vitamins, [...] nitrate usage. He has known ASHD, remote DE, history of multivessel CABG x4 in 2018, [...] MG TABSTAKE 1 TABLET DAILY DIRECTED BY [facility] Famotidine 20 MG Oral TabletTAKE 1 TABLET EVERY (more content not included)... Normal [place] Tobacco Screening.on 023 Adult depression screening assessment No [facility] List[facility]ential 250 DO Work Phone: Fall risk assessment a) No falls within the last year [facility] Allegorithmicy 250 DO Work Phone: Tobacco use status CP a) Yes [facility] [place] 250 DO Work Phone: Tobacco Screening. Yes [facility] emily 250 DO Work Phone: CBC AUTO DIFFon 07-08-2022 BASO # 0.1 103/ul Normal 0.0-0.1 [facility] Comment on above: Performed By: #### B MODESTA, TSH #### [facility] [address] [address] [address] Paola Bradshaw Basophils/100 WBC (Bld) 0.7 % Normal 0.2-2.0 [facility] Comment on above: Performed By: #### B MODESTA, TSH #### [facility] [address] [address] [address] Paola Bradshaw EO # 0.5 103/ul Normal 0.0-0.7 [facility] Comment on above: Performed By: #### B MODESTA, TSH #### [facility] [address] [address] [address] Paola Bradshaw Eosinophils/100 WBC (Bld) 7.3 % Critically high 0.9-7.0 [facility] Comment on above: Performed By: #### B MODESTA, TSH #### [facility] [address] [place] [address] Dr. Paola Bradshaw Erythrocyte distribution width (RBC) [Ratio] 18.6 % Critically high 11.0-15.0 [facility] Comment on above: Performed By: #### B MP, TSH #### [facility] [address] [place] [address] Dr. Paola Bradshaw Hematocrit (Bld) [Volume fraction] 41.1 % Critically low 42.0-54.0 [facility] Comment on above: Performed By: #### B MP, TSH #### [facility] [address] [place] [address] Dr. Paola Bradshaw Hemoglobin (Bld) [Mass/Vol] 12.7 g/dL Critically low 14.0-18.0 [facility] Comment on above: Performed By: #### B MP, TSH #### [facility] [address] [place] [address] Dr. Paola Brdashaw IG # 0.02 10e3/ul Normal 0.00-0.03 [facility] Comment on above: Performed By: #### B MP, TSH #### [facility] [address] [place] [address] Dr. Paola Bradshaw IG % 0.3 % Normal 0.0-0.5 [facility] Comment on above: Performed By: #### B MP, TSH #### [facility] [address] [place] [address] Dr. Paola Bradshaw LYMPH # 2.8 103/ul Normal 1.2-3.8 [facility] Comment on above: Performed By: #### B MP, TSH #### [facility] [address] [place] [address] Dr. Paola Bradshaw Lymphocytes/100 WBC (Bld) 39.5 % Normal 20.5-60.0 [facility] Comment on above: Performed By: #### B MP, TSH #### [facility] [address] [place] [address] Dr. Paola Bradshaw MANUAL DIFF REQ NO Normal [facility] Comment on above: Performed By: #### B MP, TSH #### [facility] [address] [place] [address] Dr. Paola Bradshaw MCH (RBC) [Entitic mass] 25.7 pg Critically low 25.9-34.0 [facility] Comment on above: Performed By: #### B MP, TSH #### [facility] [address] [place] [address] Dr. Paola Bradshaw MCHC (RBC) [Mass/Vol] 30.9 g/dL Normal 29.9-35.2 [facility] Comment on above: Performed By: #### B MP, TSH #### [facility] [address] [place] [address] Dr. Paola Bradshaw MCV (RBC) [Entitic vol] 83.0 fL Normal 80.0-94.0 [facility] Comment on above: Performed By: #### B MP, TSH #### [facility] [address] [place] [address] Dr. Paola Bradshaw MONO # 0.7 103/ul Normal 0.3-0.8 [facility] Comment on above: Performed By: #### B MP, TSH #### [facility] [address] [place] [address] Dr. Paola Bradshaw Monocytes/100 WBC (Bld) 10.1 % Normal 1.7-12.0 [facility] Comment on above: Performed By: #### B MP, TSH #### [facility] [address] [place] [address] Dr. Paola Bradshaw NEUT # 3.0 103/ul Normal 1.4-6.5 [facility] Comment on above: Performed By: #### B MP, TSH #### [facility] [address] [place] [address] Dr. Paola Bradshaw Neutrophils/100 WBC (Bld) 42.1 % Critically low 43.0-75.0 [facility] Comment on above: Performed By: #### B MP, TSH #### [facility] [address] [place] [address] Dr. Paola Bradshaw Platelet mean volume (Bld) [Entitic vol] 11.4 fL Normal 9.5-13.5 [facility] Comment on above: Performed By: #### B MP, TSH #### [facility] [address] [place] [address] Dr. Paola Bradshaw PLT 229 103/ul Normal 150-450 [facility] Comment on above: Performed By: #### B MP, TSH #### [facility] [address] [place] [address] Dr. Paola Bradshaw RBC 4.95 106/ul Normal 4.70-6.10 [facility] Comment on above: Performed By: #### B MP, TSH #### [facility] [address] [place] [address] Dr. Paola Bradshaw WBC 7.1 103/ul Normal 4.0-11.0 [facility] Comment on above: Performed By: #### B MP, TSH #### [facility] [address] [place] [address] Dr. Paola Bradshaw GLYCOHEMOGLOBIN A1Con 2022 ADA RECOMMENDATION SEE BELOW Normal [facility] Comment on above: Result Comment: ADA RECOMMENDED LIMIT 4.0 - 6.0 ADA THERAPEUTIC TARGET < 7.0 ACTION SUGGESTED > 7.0 Performed By: #### A 1C #### [facility] [address] [place] [address] Dr. Paola Bradshaw Glucose [Mass/Vol] 197 mg/dL Normal [facility] Comment on above: Performed By: #### A 1C #### [facility] [address] [place] [address] Dr. Paola Bradshaw HbA1c (Bld) [Mass fraction] 8.5 % Critically high 4.5-6.2 [facility] Comment on above: Performed By: #### A 1C #### [facility] [address] [place] [address] Dr. Paola Bradshaw LIPID PROFILEon 07-08-2022 CHOL-HDL RATIO NORM SEE BELOW Normal [facility] [facility] [place] Comment on above: Result Comment: 3.3 - 4.4 LOW RISK 4.4 - 7.1 AVERAGE RISK 7.1 - 11.0 MODERATE RISK >11.0 HIGH RISK Performed By: #### L IPID, BMP, ALT #### [facility] [address] [place] [address] Dr. Paola Bradshaw Cholesterol [Mass/Vol] 89 mg/dL Normal <=200 [facility] Comment on above: Performed By: #### L IPID, BMP, ALT #### [facility] [address] [address] [address] Paola Bradshaw Cholesterol in HDL [Mass/Vol] 26 mg/dL Critically low 40-60 [facility] [place] Comment on above: Performed By: #### L IPID, BMP, ALT #### [facility] [address] [address] [address] Paola Bradshaw Cholesterol in LDL [Mass/Vol] 36.0 mg/dL Normal [facility] [place] Comment on above: Performed By: #### L IPID, BMP, ALT #### [facility] [address] [address] [address] Paola Bradshaw Cholesterol.total/Chol esterol in HDL [Mass ratio] 3.4 {ratio} Normal [facility] [place] Comment on above: Performed By: #### L IPID, BMP, ALT #### [facility] [address] [address] [address] Paola Bradshaw HDL NORMAL > or = 60 mg/dl - LO W CARDIOVASCULAR RISK <40 mg/dl - HIGH CARDIOVASCULAR RISK Normal [facility] [place] Comment on above: Performed By: #### L IPID, BMP, ALT #### [facility] [address] [address] [address] Paola Bradshaw LDL CALC NORMAL SEE BELOW Normal [facility] [place] Comment on above: Result Comment: <100 mg/dl OPTIMAL 100 - 129 mg/dl NEAR OR ABOVE OPTIMAL 130 - 159 mg/dl BORDERLINE HIGH 160 - 189 mg/dl HIGH >190 mg/dl VERY HIGH Performed By: #### L IPID, BMP, ALT #### [facility] [address] [address] [address] Paola Bradshaw Triglyceride [Mass/Vol] 135 mg/dL Normal <=150 [facility] Comment on above: Performed By: #### L IPID, BMP, ALT #### [facility] [address] [address] [address] Paola Bradshaw VLDL CALC 27.0 mg/dL Normal [facility] [place] Comment on above: Performed By: #### L IPID, BMP, ALT #### [facility] [address] [place] [address] Dr. Paola Bradshaw MICROALBUMIN, RAND URon 04-1 mALB 7.4 mg/L Normal <=30.0 [facility] [place] Comment on above: Performed By: #### B MP, TSH #### [facility] [address] [place] [address] Dr. Paola Bradshaw PROF CHEM 8 (BAS METB)on Anion gap [Moles/Vol] 12.0 mmol/L Normal [facility] Comment on above: Performed By: #### L IPID, BMP, ALT #### [facility] [address] [place] [address] Dr. Paola Bradshaw Calcium [Mass/Vol] 8.4 mg/dL Critically low 8.5-10.1 [facility] Comment on above: Performed By: #### L IPID, BMP, ALT #### [facility] [address] [place] [address] Dr. Paola Bradshaw Chloride [Moles/Vol] 106 mmol/L Normal 98-107 [facility] [place] Comment on above: Performed By: #### L IPID, BMP, ALT #### [facility] [address] [place] [address] Dr. Paola Bradshaw CO2 [Moles/Vol] 27.5 mmol/L Normal 21.0-32.0 [facility] [place] Comment on above: Performed By: #### L IPID, BMP, ALT #### [facility] [address] [place] [address] Dr. Paola Bradshaw Creatinine [Mass/Vol] 1.11 mg/dL Normal 0.70-1.30 [facility] [place] Comment on above: Performed By: #### L IPID, BMP, ALT #### [facility] [address] [place] [address] Dr. Paola Bradshaw EGFR-AF SOMALI >60 Normal >=60 [facility] [place] Comment on above: Performed By: #### L IPID, BMP, ALT #### [facility] [address] [place] [address] Dr. Paola Bradshaw EGFR-NON AF SOMALI >60 Normal >=60 [facility] [place] Comment on above: Performed By: #### L IPID, BMP, ALT #### [facility] [address] [address] [address] Paola Bradshaw Glucose [Mass/Vol] 172 mg/dL Critically high 74-106 [facility] Comment on above: Performed By: #### L IPID, BMP, ALT #### [facility] [address] [address] [address] Paola Bradshaw Potassium [Moles/Vol] 4.5 mmol/L Normal 3.5-5.1 [facility] [place] Comment on above: Performed By: #### L IPID, BMP, ALT #### [facility] [address] [place] [address] Dr. Paola Bradshaw Sodium [Moles/Vol] 141 mmol/L Normal 136-145 [facility] [place] Comment on above: Performed By: #### L IPID, BMP, ALT #### [facility] [address] [address] [address] Paola Bradshaw Urea nitrogen [Mass/Vol] 11.0 mg/dL Normal 7.0-18.0 [facility] [place] Comment on above: Performed By: #### L IPID, BMP, ALT #### [facility] [address] [place] [address] Dr. Paola Bradshaw Urea nitrogen/Creatinine [Mass ratio] 9.9 mg/mg Normal [facility] [place] Comment on above: Performed By: #### L IPID, BMP, ALT #### [facility] [address] [place] [address] Dr. Paola Bradshaw SGPTon 07-08-2022 ALT [Catalytic activity/Vol] 52 U/L Normal 16-63 [facility] [place] Comment on above: Performed By: #### L IPID, BMP, ALT #### [facility] [address] [place] [address] Dr. Paola Bradshaw Falls Screening (Age 18+)on 05-13-2022 Fall risk assessment a) No falls within the last year [facility] HeartSandu emily 250 DO Work Phone: LEVETIRACETAM, SERUM OR PLAS MAon 04-07-2022 Levetiracetam, S 18.2 ug/mL Normal 10.0-40.0 [facility] [place] Comment on above: Performed By: #### K EPPRA #### [facility] [address] [address] [address] Paola Bradshaw GLYCOHEMOGLOBIN A1Con 2022 ADA RECOMMENDATION SEE BELOW Normal [facility] [place] Comment on above: Result Comment: ADA RECOMMENDED LIMIT 4.0 - 6.0 ADA THERAPEUTIC TARGET < 7.0 ACTION SUGGESTED > 7.0 Performed By: #### A 1C #### [facility] [address] [address] [address] Paola Bradshaw Glucose [Mass/Vol] 286 mg/dL Normal [facility] [place] Comment on above: Performed By: #### A 1C #### [facility] [address] [address] [address] Paola Bradshaw HbA1c (Bld) [Mass fraction] 11.6 % Critically high 4.5-6.2 [facility] [place] Comment on above: Performed By: #### A 1C #### [facility] [address] [address] [address] Paola Bradshaw Creatinine and Glomerular fi ltration rate.predicted panel (S/P/Bld)Ordered By: Franck Posey on 02-04-2022 Creatinine [Mass/Vol] 0.95 mg/dL 0.64-1.27 [facility] Estimated glomerular filtrat ion rate (GFR) non- AmericanOrdered By: Franck Posey on 02-04-2022 GFR/1.73 sq M.predicted among non-blacks MDRD (S/P/Bld) [Vol rate/Area] > 60 mL/Min [facility] No Panel InformationOrdered By: Franck Posey on 02-04-2022 Estimated GFR () > 60 mL/Min [facility] Comment on above: GFR estimated refere nce range: According to KDOQI guidelines, <60 ml/min/1.73m2 is sufficient to diagnose a patient with chronic kidney disease. Pharmacy Creatinine Clearance (Chem N/A [facility] No Panel Informationon 02-04 6.7\S\6.7 Normal 6.0-15.0 [facility]-Alisa emily 250 DO Work Phone: 9.0\S\9.0 Normal 8.2-10.2 [facility]-Alisa emiyl 250 DO Work Phone: 28.0\S\28.0 Normal 22.0-30.0 [facility] [employer]Arrow[employer] ResearchAlisa emily 250 DO Work Phone: 105\S\105 Normal 95-114 [facility]-Alisa emily 250 DO Work Phone: 4.7\S\4.7 Normal 3.5-5.1 [facility] [employer]row[employer] ResearchAlisa emily 250 DO Work Phone: 135\S\135 below low threshold 136-146 [facility] [employer] ResearchAlisa emily 250 DO Work Phone: > 60 Normal [facility] BlinkAlisa emily 250 DO Work Phone: Comment on above: GFR estimated refere nce range: According to KDOQI guidelines, <60 ml/min/1.73m2 is sufficient to diagnose a patient with chronic kidney disease. 0.95\S\0.95 Normal 0.64-1.27 [facility]-Alisa emily 250 DO Work Phone: [phone] 11\S\11 Normal 9-23 [facility] ListMinutAmber emily 250 DO Work Phone: 238\S\238 above high threshold 70-100 -[facility] [employer]Arrowhead ResearchAlisa emily 250 DO Work Phone: Comment on above: Random Glucose Refer ence Range is dependent on time and content of last meal. Glucose of more than 200 mg/dL in a nonstressed, ambulatory subject supports the diagnosis of Diabetes Mellitus. ADA recommended reference range 23\S\23 Normal 10-42 [facility]Alisa emily 250 DO Work Phone: 2.80\S\2.80 Normal 0.45-5.33 [facility]-Sandu emily 250 DO Work Phone: Comment on above: PERFORMED BY:[facility] [place], [place] [id number] MEDICAL DIRECTORHAILEY CALDERÓN M.D. Radiologyon 02-04-2022 XR Chest 2 Views Normal [facility] emily 250 DO Work Phone: Serum or plasma anion gap de terminationOrdered By: Franck Posey on 02-04-2022 Anion gap [Moles/Vol] 6.7 mmol/L 6.0-15.0 [facility] Serum or plasma aspartate am inotransferase measurement (enzymatic activity/volume)Ordered By: Franck Posey on 02-04-2022 AST [Catalytic activity/Vol] 23 U/L 10-42 [facility] Serum or plasma calcium daria urement (mass/volume)Ordered By: Franck Posey on 02-04-2022 Calcium [Mass/Vol] 9.0 mg/dL 8.2-10.2 [facility] Serum or plasma chloride gisselle surement (moles/volume)Ordered By: Franck Posey on 02-04-2022 Chloride [Moles/Vol] 105 mmol/L 95-114 [facility] Serum or plasma glucose daria urement (mass/volume)Ordered By: Franck Posey on 02-04-2022 Glucose [Mass/Vol] 238 mg/dL 70-100 [facility] Comment on above: ADA recommended refe rence rangeRandom Glucose Reference Range is dependent on time and content of last meal. Glucose of more than 200 mg/dL in a nonstressed, ambulatory subject supports the diagnosis of Diabetes Mellitus. Serum or plasma potassium me asurement (moles/volume)Ordered By: Franck Posey on 02-04-2022 Potassium [Moles/Vol] 4.7 mmol/L 3.5-5.1 [facility] Serum or plasma sodium measu rement (moles/volume)Ordered By: Franck Posey on 02-04-2022 Sodium [Moles/Vol] 135 mmol/L 136-146 [facility] Serum or plasma total carbon dioxide measurement (moles/volume)Ordered By: Franck Posey on 02-04-2022 CO2 [Moles/Vol] 28.0 mmol/L 22.0-30.0 [facility] Serum or plasma urea nitroge n measurement (mass/volume)Ordered By: Franck Posey on 02-04-2022 Urea nitrogen [Mass/Vol] 11 mg/dL 9-23 [facility] TSH DL <= 0.005 mIU/L QnOrde red By: Franck Posey on 02-04-2022 TSH Qn 2.80 m[IU]/L 0.45-5.33 [facility] BNPon 11-14-2021 Natriuretic peptide B (Bld) [Mass/Vol] 703.0 pg/mL Normal <=900.0 [facility] [place] Comment on above: Performed By: #### B MODESTA, TSH #### [facility] [address] [place] [address] Dr. Paola Bradshaw PROF CHEM 8 (BAS METB)on Anion gap [Moles/Vol] 11.1 mmol/L Normal [facility] Comment on above: Performed By: #### B MODESTA, TSH #### [facility] [address] [place] [address] Dr. Paola Bradshaw Calcium [Mass/Vol] 8.2 mg/dL Critically low 8.5-10.1 [facility] Comment on above: Performed By: #### B MODESTA, TSH #### [facility] [address] [place] [address] Dr. Paola Bradshaw Chloride [Moles/Vol] 103 mmol/L Normal 98-107 [facility] [place] Comment on above: Performed By: #### B MODESTA, TSH #### [facility] [address] [address] [address] Paola Bradshaw CO2 [Moles/Vol] 25.3 mmol/L Normal 21.0-32.0 [facility] [place] Comment on above: Performed By: #### B MODESTA, TSH #### [facility] [address] [place] [address] Dr. Paola Bradshaw Creatinine [Mass/Vol] 1.08 mg/dL Normal 0.70-1.30 [facility] [place] Comment on above: Performed By: #### B MP, TSH #### [facility] [address] [place] [address] Dr. Paola Bradshaw EGFR-AF SOMALI >60 Normal >=60 [facility] [place] Comment on above: Performed By: #### B MP, TSH #### [facility] [address] [place] [address] Dr. Paola Bradshaw EGFR-NON AF SOMALI >60 Normal >=60 [facility] [place] Comment on above: Performed By: #### B MP, TSH #### [facility] [address] [place] [address] Dr. Paola Bradshaw Glucose [Mass/Vol] 255 mg/dL Critically high 74-106 [facility] Comment on above: Performed By: #### B MP, TSH #### [facility] [address] [place] [address] Dr. Paola Bradshaw Potassium [Moles/Vol] 4.4 mmol/L Normal 3.5-5.1 [facility] [place] Comment on above: Performed By: #### B MP, TSH #### [facility] [address] [place] [address] Dr. Paola Bradshaw Sodium [Moles/Vol] 135 mmol/L Critically low 136-145 [facility] Comment on above: Performed By: #### B MP, TSH #### [facility] [address] [place] [address] Dr. Paola Bradshaw Urea nitrogen [Mass/Vol] 12.0 mg/dL Normal 7.0-18.0 [facility] [place] Comment on above: Performed By: #### B MP, TSH #### [facility] [address] [place] [address] Dr. Paola Bradshaw Urea nitrogen/Creatinine [Mass ratio] 11.1 mg/mg Normal [facility] [place] Comment on above: Performed By: #### B MP, TSH #### [facility] [address] [place] [address] Dr. Paola Bradshaw XR CHEST 2 Von [...] GINO SAGASTUME Date: 2021-11-14 16:58 Normal [facility] CBC AUTO DIFFon 10-21-2021 BASO # 0.1 103/ul Normal 0.0-0.1 [facility] [place] Comment on above: Performed By: #### B MODESTA, TSH #### [facility] [address] [address] [address] Paola Bradshaw Basophils/100 WBC (Bld) 0.6 % Normal 0.2-2.0 [facility] Comment on above: Performed By: #### B MODESTA, TSH #### [facility] [address] [address] [address] Paola Bradshaw EO # 0.4 103/ul Normal 0.0-0.7 [facility] [place] Comment on above: Performed By: #### B MP, TSH #### [facility] [address] [address] [address] Paola Bradshaw Eosinophils/100 WBC (Bld) 4.2 % Normal 0.9-7.0 [facility] Comment on above: Performed By: #### B MP, TSH #### [facility] [address] [address] [address] Paola Bradshaw Erythrocyte distribution width (RBC) [Ratio] 16.4 % Critically high 11.0-15.0 [facility] Comment on above: Performed By: #### B MODESTA, TSH #### [facility] [address] [address] [address] Paola Bradshaw Hematocrit (Bld) [Volume fraction] 39.7 % Critically low 42.0-54.0 [facility] [place] Comment on above: Performed By: #### B MP, TSH #### [facility] [address] [place] [address] Dr. Paola Bradshaw Hemoglobin (Bld) [Mass/Vol] 12.6 g/dL Critically low 14.0-18.0 [facility] [place] Comment on above: Performed By: #### B MP, TSH #### [facility] [address] [place] [address] Dr. Paola Bradshaw IG # 0.04 10e3/ul Critically high 0.00-0.03 [facility] [place] Comment on above: Performed By: #### B MP, TSH #### [facility] [address] [place] [address] Dr. Paola Bradshaw IG % 0.5 % Normal 0.0-0.5 [facility] [place] Comment on above: Performed By: #### B MP, TSH #### [facility] [address] [place] [address] Dr. Paola Bradshaw LYMPH # 2.5 103/ul Normal 1.2-3.8 [facility] Comment on above: Performed By: #### B MP, TSH #### [facility] [address] [place] [address] Dr. Paola Bradshaw Lymphocytes/100 WBC (Bld) 29.2 % Normal 20.5-60.0 [facility] [place] Comment on above: Performed By: #### B MP, TSH #### [facility] [address] [place] [address] Dr. Paola Bradshaw MANUAL DIFF REQ NO Normal [facility] Comment on above: Performed By: #### B MP, TSH #### [facility] [address] [place] [address] Dr. Paola Bradshaw MCH (RBC) [Entitic mass] 27.3 pg Normal 25.9-34.0 [facility] Comment on above: Performed By: #### B MP, TSH #### [facility] [address] [place] [address] Dr. Paola Bradshaw MCHC (RBC) [Mass/Vol] 31.7 g/dL Normal 29.9-35.2 [facility] Comment on above: Performed By: #### B MP, TSH #### [facility] [address] [address] [address] Paola Bradshaw MCV (RBC) [Entitic vol] 86.1 fL Normal 80.0-94.0 [facility] [place] Comment on above: Performed By: #### B MP, TSH #### [facility] [address] [place] [address] Dr. Paola Bradshaw MONO # 0.8 103/ul Normal 0.3-0.8 [facility] [place] Comment on above: Performed By: #### B MP, TSH #### [facility] [address] [place] [address] Dr. Paola Bradshaw Monocytes/100 WBC (Bld) 9.8 % Normal 1.7-12.0 [facility] [place] Comment on above: Performed By: #### B MP, TSH #### [facility] [address] [place] [address] Dr. Paola Bradshaw NEUT # 4.8 103/ul Normal 1.4-6.5 [facility] [place] Comment on above: Performed By: #### B MP, TSH #### [facility] [address] [place] [address] Dr. Paola Bradshaw Neutrophils/100 WBC (Bld) 55.7 % Normal 43.0-75.0 [facility] [place] Comment on above: Performed By: #### B MP, TSH #### [facility] [address] [place] [address] Dr. Paola Bradshaw Platelet mean volume (Bld) [Entitic vol] 11.4 fL Normal 9.5-13.5 [facility] Comment on above: Performed By: #### B MP, TSH #### [facility] [address] [place] [address] Dr. Paola Bradshaw PLT 218 103/ul Normal 150-450 [facility] Comment on above: Performed By: #### B MP, TSH #### [facility] [address] [place] [address] Dr. Paola Bradshaw RBC 4.61 106/ul Critically low 4.70-6.10 [facility] Comment on above: Performed By: #### B MP, TSH #### [facility] [address] [place] [address] Dr. Paola Bradshaw WBC 8.5 103/ul Normal 4.0-11.0 [facility] [place] Comment on above: Performed By: #### B MP, TSH #### [facility] [address] [place] [address] Dr. Paola Bradshaw CRPon 10-21-2021 CRP 0.4 mg/dL Normal <=1.0 [facility] [place] Comment on above: Performed By: #### B MP, TSH #### [facility] [address] [place] [address] Dr. Paola Bradshaw SED RATE WESTERGRENon 2021 SED RATE 33 mm/hr Critically high <=20 [facility] [place] Comment on above: Performed By: #### B MP, TSH #### [facility] [address] [place] [address] Dr. Paola Bradshaw CBC AUTO DIFFon 10-08-2021 BASO # 0.1 103/ul Normal 0.0-0.1 [facility] [place] Comment on above: Performed By: #### B MP, TSH #### [facility] [address] [place] [address] Dr. Paola Bradshaw Basophils/100 WBC (Bld) 0.5 % Normal 0.2-2.0 [facility] [place] Comment on above: Performed By: #### B MP, TSH #### [facility] [address] [place] [address] Dr. Paola Bradshaw EO # 0.4 103/ul Normal 0.0-0.7 [facility] [place] Comment on above: Performed By: #### B MP, TSH #### [facility] [address] [place] [address] Dr. Paola Bradshaw Eosinophils/100 WBC (Bld) 4.2 % Normal 0.9-7.0 [facility] [place] Comment on above: Performed By: #### B MP, TSH #### [facility] [address] [place] [address] Dr. Paola Bradshaw Erythrocyte distribution width (RBC) [Ratio] 16.4 % Critically high 11.0-15.0 [facility] [place] Comment on above: Performed By: #### B MODESTA, TSH #### [facility] [address] [place] [address] Dr. Paola Bradshaw Hematocrit (Bld) [Volume fraction] 44.3 % Normal 42.0-54.0 [facility] [place] Comment on above: Performed By: #### B MODESTA, TSH #### [facility] [address] [place] [address] Dr. Paola Bradhsaw Hemoglobin (Bld) [Mass/Vol] 14.0 g/dL Normal 14.0-18.0 [facility] [place] Comment on above: Performed By: #### B MODESTA, TSH #### [facility] [address] [place] [address] Dr. Paola Bradshaw IG # 0.04 10e3/ul Critically high 0.00-0.03 [facility] [place] Comment on above: Performed By: #### Talita BYERS, TSH #### [facility] [address] [place] [address] Dr. Paola Bradshaw IG % 0.4 % Normal 0.0-0.5 [facility] [place] Comment on above: Performed By: #### B MODESTA, TSH #### [facility] [address] [place] [address] Dr. Paola Bradshaw LYMPH # 3.0 103/ul Normal 1.2-3.8 [facility] [place] Comment on above: Performed By: #### B MODESTA, TSH #### [facility] [address] [place] [address] Dr. Paola Bradshaw Lymphocytes/100 WBC (Bld) 31.6 % Normal 20.5-60.0 [facility] [place] Comment on above: Performed By: #### B MODESTA, TSH #### [facility] [address] [place] [address] Dr. Paola Bradshaw MANUAL DIFF REQ NO Normal [facility] [place] Comment on above: Performed By: #### B MODESTA, TSH #### [facility] [address] [place] [address] Dr. Paola Bradshaw MCH (RBC) [Entitic mass] 27.2 pg Normal 25.9-34.0 [facility] Comment on above: Performed By: #### B MP, TSH #### [facility] [address] [place] [address] Dr. Paola Bradshaw MCHC (RBC) [Mass/Vol] 31.6 g/dL Normal 29.9-35.2 [facility] Comment on above: Performed By: #### B MP, TSH #### [facility] [address] [place] [address] Dr. Paola Bradshaw MCV (RBC) [Entitic vol] 86.2 fL Normal 80.0-94.0 [facility] Comment on above: Performed By: #### B MODESTA, TSH #### [facility] [address] [place] [address] Dr. Paola Bradshaw MONO # 0.7 103/ul Normal 0.3-0.8 [facility] Comment on above: Performed By: #### B MODESTA, TSH #### [facility] [address] [place] [address] Dr. Paola Bradshaw Monocytes/100 WBC (Bld) 7.6 % Normal 1.7-12.0 [facility] Comment on above: Performed By: #### B MODESTA, TSH #### [facility] [address] [place] [address] Dr. Paola Bradshaw NEUT # 5.3 103/ul Normal 1.4-6.5 [facility] Comment on above: Performed By: #### B MODESTA, TSH #### [facility] [address] [place] [address] Dr. Paola Bradshaw Neutrophils/100 WBC (Bld) 55.7 % Normal 43.0-75.0 [facility] Comment on above: Performed By: #### B MODESTA, TSH #### [facility] [address] [place] [address] Dr. Poala Bradshaw Platelet mean volume (Bld) [Entitic vol] 12.2 fL Normal 9.5-13.5 [facility] Comment on above: Performed By: #### B MODESTA, TSH #### [facility] [address] [address] [address] Paola Bradshaw PLT 195 103/ul Normal 150-450 [facility] Comment on above: Performed By: #### B MP, TSH #### [facility] [address] [address] [address] Paola Bradshaw RBC 5.14 106/ul Normal 4.70-6.10 [facility] Comment on above: Performed By: #### B MP, TSH #### [facility] [address] [address] [address] Paola Bradshaw WBC 9.6 103/ul Normal 4.0-11.0 [facility] [place] Comment on above: Performed By: #### B MODESTA, TSH #### [facility] [address] [place] [address] Dr. Paola Bradshaw GLYCOHEMOGLOBIN A1Con 2021 ADA RECOMMENDATION SEE BELOW Normal [facility] Comment on above: Result Comment: ADA RECOMMENDED LIMIT 4.0 - 6.0 ADA THERAPEUTIC TARGET < 7.0 ACTION SUGGESTED > 7.0 Performed By: #### B MP, TSH #### [facility] [address] [place] [address] Dr. Paola Bradshaw Glucose [Mass/Vol] 203 mg/dL Normal [facility] [place] Comment on above: Performed By: #### B MODESTA, TSH #### [facility] [address] [place] [address] Dr. Paola Bradshaw HbA1c (Bld) [Mass fraction] 8.7 % Critically high 4.5-6.2 [facility] [place] Comment on above: Performed By: #### B MP, TSH #### [facility] [address] [place] [address] Dr. Paola Bradshaw MICROALBUMIN, RAND URon 09-20 mALB 5.9 mg/L Normal <=30.0 [facility] Comment on above: Performed By: #### B MP, TSH #### [facility] [address] [place] [address] Dr. Paola Bradshaw PROF CHEM 8 (BAS METB)on Anion gap [Moles/Vol] 14.1 mmol/L Normal Th [facility] Comment on above: Performed By: #### B MP, TSH #### [facility] [address] [place] [address] Dr. Paola Bradshaw Calcium [Mass/Vol] 8.8 mg/dL Normal 8.5-10.1 [facility] [place] Comment on above: Performed By: #### B MP, TSH #### [facility] [address] [place] [address] Dr. Paola Bradshaw Chloride [Moles/Vol] 101 mmol/L Normal 98-107 [facility] [place] Comment on above: Performed By: #### B MP, TSH #### [facility] [address] [place] [address] Dr. Paola Bradshaw CO2 [Moles/Vol] 25.6 mmol/L Normal 21.0-32.0 [facility] [place] Comment on above: Performed By: #### B MP, TSH #### [facility] [address] [place] [address] Dr. Paola Bradshaw Creatinine [Mass/Vol] 1.17 mg/dL Normal 0.70-1.30 [facility] [place] Comment on above: Performed By: #### B MP, TSH #### [facility] [address] [place] [address] Dr. Paola Bradshaw EGFR-AF SOMALI >60 Normal >=60 [facility] [place] Comment on above: Performed By: #### B MP, TSH #### [facility] [address] [place] [address] Dr. Paola Bradshaw EGFR-NON AF SOMALI >60 Normal >=60 [facility] [place] Comment on above: Performed By: #### B MP, TSH #### [facility] [address] [place] [address] Dr. Paola Bradshaw Glucose [Mass/Vol] 379 mg/dL Critically high 74-106 [facility] Comment on above: Performed By: #### B MP, TSH #### [facility] [address] [place] [address] Dr. Paola rBadshaw Potassium [Moles/Vol] 4.7 mmol/L Normal 3.5-5.1 [facility] Comment on above: Performed By: #### B MP, TSH #### [facility] [address] [place] [address] Dr. Paola Bradshaw Sodium [Moles/Vol] 136 mmol/L Normal 136-145 [facility] Comment on above: Performed By: #### B MP, TSH #### [facility] [address] [place] [address] Dr. Paola Bradshaw Urea nitrogen [Mass/Vol] 18.0 mg/dL Normal 7.0-18.0 [facility] [place] Comment on above: Performed By: #### B MP, TSH #### [facility] [address] [place] [address] Dr. Paola Bradshaw Urea nitrogen/Creatinine [Mass ratio] 15.4 mg/mg Normal [facility] [place] Comment on above: Performed By: #### B MP, TSH #### [facility] [address] [place] [address] Dr. Paola Bradshaw TSHon 10-08-2021 TSH 3.026 uIU/mL Normal 0.358-3.74 0 [facility] [place] Comment on above: Performed By: #### B MP, TSH #### [facility] [address] [place] [address] Dr. Paola Bradshaw LEVETIRACETAM, SERUM OR PLAS MAon 09-16-2021 Levetiracetam, S 9.0 ug/mL Critically low 10.0-40.0 [facility] [place] Comment on above: Performed By: #### B MP, TSH #### [facility] [address] [place] [address] Dr. Paola Bradshwa CBC AUTO DIFFon 09-09-2021 BASO # 0.1 103/ul Normal 0.0-0.1 [facility] Comment on above: Performed By: #### B MP, TSH #### [facility] [address] [place] [address] Dr. Paola Bradshaw Basophils/100 WBC (Bld) 0.6 % Normal 0.2-2.0 [facility] [place] Comment on above: Performed By: #### B MP, TSH #### [facility] [address] [place] [address] Dr. Paola Bradshaw EO # 0.4 103/ul Normal 0.0-0.7 [facility] [place] Comment on above: Performed By: #### B MP, TSH #### [facility] [address] [place] [address] Dr. Paola Bradshaw Eosinophils/100 WBC (Bld) 4.8 % Normal 0.9-7.0 [facility] Comment on above: Performed By: #### B MP, TSH #### [facility] [address] [place] [address] Dr. Paola Bradshaw Erythrocyte distribution width (RBC) [Ratio] 15.2 % Critically high 11.0-15.0 [facility] [place] Comment on above: Performed By: #### B MODESTA, TSH #### [facility] [address] [place] [address] Dr. Paola Bradshaw Hematocrit (Bld) [Volume fraction] 39.6 % Critically low 42.0-54.0 [facility] [place] Comment on above: Performed By: #### B MODESTA, TSH #### [facility] [address] [place] [address] Dr. Paola Bradshaw Hemoglobin (Bld) [Mass/Vol] 12.7 g/dL Critically low 14.0-18.0 [facility] [place] Comment on above: Performed By: #### B MP, TSH #### [facility] [address] [place] [address] Dr. Paola Bradshaw IG # 0.02 10e3/ul Normal 0.00-0.03 [facility] Comment on above: Performed By: #### B MP, TSH #### [facility] [address] [place] [address] Dr. Paola Bradshaw IG % 0.2 % Normal 0.0-0.5 [facility] Comment on above: Performed By: #### B MP, TSH #### [facility] [address] [place] [address] Dr. Paola Bradshaw LYMPH # 3.5 103/ul Normal 1.2-3.8 [facility] Comment on above: Performed By: #### B MP, TSH #### [facility] [address] [place] [address] Dr. Paola Bradshaw Lymphocytes/100 WBC (Bld) 42.5 % Normal 20.5-60.0 [facility] [place] Comment on above: Performed By: #### B MP, TSH #### [facility] [address] [place] [address] Dr. Paola Bradshaw MANUAL DIFF REQ NO Normal [facility] Comment on above: Performed By: #### B MP, TSH #### [facility] [address] [place] [address] Dr. Paola Bradshaw MCH (RBC) [Entitic mass] 27.5 pg Normal 25.9-34.0 [facility] [place] Comment on above: Performed By: #### B MP, TSH #### [facility] [address] [place] [address] Dr. Paola Bradshaw MCHC (RBC) [Mass/Vol] 32.1 g/dL Normal 29.9-35.2 [facility] [place] Comment on above: Performed By: #### B MP, TSH #### [facility] [address] [place] [address] Dr. Paola Bradshaw MCV (RBC) [Entitic vol] 85.7 fL Normal 80.0-94.0 [facility] [place] Comment on above: Performed By: #### B MP, TSH #### [facility] [address] [place] [address] Dr. Paola Bradshaw MONO # 0.7 103/ul Normal 0.3-0.8 [facility] [place] Comment on above: Performed By: #### B MP, TSH #### [facility] [address] [place] [address] Dr. Paola Bradshaw Monocytes/100 WBC (Bld) 8.5 % Normal 1.7-12.0 [facility] [place] Comment on above: Performed By: #### B MP, TSH #### [facility] [address] [place] [address] Dr. Paola rBadshaw NEUT # 3.6 103/ul Normal 1.4-6.5 [facility] [place] Comment on above: Performed By: #### B MP, TSH #### [facility] [address] [address] [address] Paola Bradshaw Neutrophils/100 WBC (Bld) 43.4 % Normal 43.0-75.0 [facility] [place] Comment on above: Performed By: #### B MP, TSH #### [facility] [address] [address] [address] Paola Bradshaw Platelet mean volume (Bld) [Entitic vol] 12.9 fL Normal 9.5-13.5 [facility] [place] Comment on above: Performed By: #### B MP, TSH #### [facility] [address] [address] [address] Paola Bradshaw PLT 206 103/ul Normal 150-450 [facility] Comment on above: Performed By: #### B MP, TSH #### [facility] [address] [place] [address] Dr. Paola Bradshaw RBC 4.62 106/ul Critically low 4.70-6.10 [facility] Comment on above: Performed By: #### B MP, TSH #### [facility] [address] [address] [address] Paola Bradshaw WBC 8.3 103/ul Normal 4.0-11.0 [facility] Comment on above: Performed By: #### B MP, TSH #### [facility] [address] [place] [address] Dr. Paola Bradshaw PROF 14(COMP METB)on 022 Albumin [Mass/Vol] 3.4 g/dL Normal 3.4-5.0 [facility] [place] Comment on above: Performed By: #### C MP #### [facility] [address] [place] [address] Dr. Paola Bradshaw Albumin/Globulin [Mass ratio] 1.0 {ratio} Normal [facility] Comment on above: Performed By: #### C MP #### [facility] [address] [address] [address] Paola Bradshaw ALP [Catalytic activity/Vol] 109 U/L Normal 46-116 [facility] Comment on above: Performed By: #### C MP #### [facility] [address] [address] [address] Paola Bradshaw ALT [Catalytic activity/Vol] 44 U/L Normal 16-63 [facility] [place] Comment on above: Performed By: #### C MP #### [facility] [address] [address] [address] Paola Bradshaw Anion gap [Moles/Vol] 11.4 mmol/L Normal Th [facility] Comment on above: Performed By: #### C MP #### [facility] [address] [address] [address] Paola Bradshaw AST [Catalytic activity/Vol] 20 U/L Normal 15-37 [facility] [place] Comment on above: Performed By: #### C MP #### [facility] [address] [place] [address] Dr. Paola Bradshaw Bilirubin [Mass/Vol] 0.4 mg/dL Normal 0.2-1.0 [facility] [place] Comment on above: Performed By: #### C MP #### [facility] [address] [place] [address] Dr. Paola Bradshaw Calcium [Mass/Vol] 8.5 mg/dL Normal 8.5-10.1 [facility] [place] Comment on above: Performed By: #### C MP #### [facility] [address] [place] [address] Dr. Paola Bradshaw Chloride [Moles/Vol] 103 mmol/L Normal 98-107 [facility] Comment on above: Performed By: #### C MP #### [facility] [address] [address] [address] Paola Bradshaw CO2 [Moles/Vol] 25.9 mmol/L Normal 21.0-32.0 [facility] Comment on above: Performed By: #### C MP #### [facility] [address] [address] [address] Paola Bradshaw Creatinine [Mass/Vol] 1.14 mg/dL Normal 0.70-1.30 [facility] Comment on above: Performed By: #### C MP #### [facility] [address] [address] [address] Paola Bradshaw EGFR-AF SOMALI >60 Normal >=60 [facility] [place] Comment on above: Performed By: #### C MP #### [facility] [address] [address] [address] Paola Bradshaw EGFR-NON AF SOMALI >60 Normal >=60 [facility] [place] Comment on above: Performed By: #### C MP #### [facility] [address] [address] [address] Paola Bradshaw Globulin (S) [Mass/Vol] 3.5 g/dL Normal [facility] [place] Comment on above: Performed By: #### C MP #### [facility] [address] [place] [address] Dr. Paola Bradshaw Glucose [Mass/Vol] 308 mg/dL Critically high 74-106 [facility] Comment on above: Performed By: #### C MP #### [facility] [address] [address] [address] Paola Bradshaw Potassium [Moles/Vol] 4.3 mmol/L Normal 3.5-5.1 [facility] [place] Comment on above: Performed By: #### C MP #### [facility] [address] [place] [address] Dr. Paola Bradshaw Protein [Mass/Vol] 6.9 g/dL Normal 6.4-8.2 [facility] [place] Comment on above: Performed By: #### C MP #### [facility] [address] [address] [address] Paola Bradshaw Sodium [Moles/Vol] 136 mmol/L Normal 136-145 [facility] [place] Comment on above: Performed By: #### C MP #### [facility] [address] [place] [address] Dr. Paola Bradshaw Urea nitrogen [Mass/Vol] 18.0 mg/dL Normal 7.0-18.0 [facility] [place] Comment on above: Performed By: #### C MP #### [facility] [address] [place] [address] Dr. Paola Bradshaw Urea nitrogen/Creatinine [Mass ratio] 15.8 mg/mg Normal [facility] Comment on above: Performed By: #### C #### [facility] [address] [address] [address] Paola Bradshaw No Panel Informationon 08-19 24.0\S\24.0 Normal 22.0-30.0 [facility] [address] DO Work Phone: 104\S\104 Normal 95-114 [facility] [address] 250 DO Work Phone: 4.7\S\4.7 Normal 3.5-5.1 [facility] emily 250 DO Work Phone: 138\S\138 Normal 136-146 [facility] [address] 250 DO Work Phone: [phone] > 60 Normal [facility] [address] 250 DO Work Phone: Comment on above: GFR estimated refere nce range: According to KDOQI guidelines, <60 ml/min/1.73m2 is sufficient to diagnose a patient with chronic kidney disease. 9.0\S\9.0 Normal 8.2-10.2 [facility] [address] 250 DO Work Phone: 1.16\S\1.16 Normal 0.64-1.27 [facility] [employer] emily 250 DO Work Phone: 11\S\11 Normal 9-23 [facility] [address] 250 DO Work Phone: 189\S\189 above high threshold 70-100 [facility] [address] 250 DO Work Phone: Comment on above: Random Glucose Refer ence Range is dependent on time and content of last meal. Glucose of more than 200 mg/dL in a nonstressed, ambulatory subject supports the diagnosis of Diabetes Mellitus. ADA recommended reference range 31\S\31 Normal 10-42 [facility] [address] 250 DO Work Phone: 2.90\S\2.90 Normal 0.45-5.33 [facility] Research[facility] emily 250 DO Work Phone: Comment on above: PERFORMED BY:[facility] RODRIGUEZJohn PaulCASSY [place] [id number] MEDICAL DIRECTORHAILEY CALDERÓN M.D. Radiologyon 08-19-2021 XR Chest 2 Views Normal [facility] 250 DO Work Phone: No Panel Informationon 06-06 > 60 Normal [facility] 250 DO Work Phone: Comment on above: GFR estimated refere nce range: According to KDOQI guidelines, <60 ml/min/1.73m2 is sufficient to diagnose a patient with chronic kidney disease. 1.05\S\1.05 Normal 0.64-1.27 [facility] emily 250 DO Work Phone: 17\S\17 Normal 9-23 [facility] d[facility] 250 DO Work Phone: 289\S\289 above high threshold 70-100 [facility] ResearchJenny emily 250 DO Work Phone: Comment on above: Random Glucose Refer ence Range is dependent on time and content of last meal. Glucose of more than 200 mg/dL in a nonstressed, ambulatory subject supports the diagnosis of Diabetes Mellitus. ADA recommended reference range 9.3\S\9.3 Normal 8.2-10.2 [facility] ResearchAlisa emily 250 DO Work Phone: 25.2\S\25.2 Normal 22.0-30.0 [facility] emily 250 DO Work Phone: 100\S\100 Normal 95-114 [facility] Work Phone: 4.3\S\4.3 Normal 3.5-5.1 [facility] [employer] emily 250 DO Work Phone: 134\S\134 below low threshold 136-146 [facility] Ashley diaz 250 DO Work Phone: 22\S\22 Normal 10-42 [facility] Ashley diaz 250 DO Work Phone: 5.87\S\5.87 above high threshold 0.45-5.33 [facility] Ashley diaz 250 DO Work Phone: Comment on above: PERFORMED BY:[facility] [place]BER[place], [place] [id number] MEDICAL DIRECTORHAILEY CALDERÓN M.D. Radiologyon 06-06-2021 XR Chest 2 Views Normal [facility] Ashley Michaels DO Work Phone: Tobacco Screening.on 022 Tobacco use status CPHS b) No [facility] Ashley diaz 250 DO Work Phone: Vital Signs Date Time Vital Sign Value Performing Clinician Facility 12-04-2024 11:02-0400 Body height 175.26 cm Lee Ball DO Work Phone: [facility] 12-04-2024 11:02-0400 Body mass index (BMI) [Ratio] 33.1 kg/m2 Lee Ball DO Work Phone: [facility] 12-04-2024 11:02-0400 Body weight 101.83 kg Lee Ball DO Work Phone: [facility] 12-04-2024 11:02-0400 Diastolic blood pressure 78 mm[Hg] Lee Ball DO Work Phone: [facility] 12-04-2024 11:02-0400 Heart rate 78 /min Lee Ball DO Work Phone: [facility] 12-04-2024 11:02-0400 Respiratory rate 16 /min Lee Ball DO Work Phone: [facility] 12-04-2024 11:02-0400 Systolic blood pressure 118 mm[Hg] Lee Ball DO Work Phone: [facility] 11-28-2024 14:05-0400 Body height 175.3 cm Nany Petznick DO Work Phone: [facility] 11-28-2024 14:05-0400 Body mass index (BMI) [Ratio] 33.23 kg/m2 Nany Petznick DO Work Phone: [facility] 11-28-2024 14:05-0400 Body temperature 98.29 [degF] Nany Petznick DO Work Phone: [facility] 11-28-2024 14:05-0400 Body weight 102.06 kg Nany Petznick DO Work Phone: [facility] 11-28-2024 14:05-0400 Diastolic blood pressure 64 mm[Hg] Nany Petznick DO Work Phone: [facility] 11-28-2024 14:05-0400 Heart rate 62 /min Nany Petznick DO Work Phone: [facility] 11-28-2024 14:05-0400 SaO2% (BldA) [Mass fraction] 100 % Nany Petznick DO Work Phone: [facility] 11-28-2024 14:05-0400 Systolic blood pressure 112 mm[Hg] Nany Petznick DO Work Phone: [facility] 11-09-2024 11:07-0400 Body height 175.26 cm Lee Ball DO Work Phone: [facility] 11-09-2024 11:07-0400 Body mass index (BMI) [Ratio] 33.2 kg/m2 Lee Ball DO Work Phone: [facility] 11-09-2024 11:07-0400 Body weight 102.11 kg Lee Ball DO Work Phone: [facility] 11-09-2024 11:07-0400 Diastolic blood pressure 72 mm[Hg] Lee Ball DO Work Phone: [facility] 11-09-2024 11:07-0400 Heart rate 80 /min Lee Ball DO Work Phone: [facility] 11-09-2024 11:07-0400 Respiratory rate 16 /min Lee Ball DO Work Phone: [facility] 11-09-2024 11:07-0400 Systolic blood pressure 110 mm[Hg] Lee Ball DO Work Phone: [facility] 08-28-2024 13:36-0400 Body height 175.3 cm Nany Petznick DO Work Phone: [facility] 08-28-2024 13:36-0400 Body mass index (BMI) [Ratio] 33.23 kg/m2 Nany Petznick DO Work Phone: [facility] 08-28-2024 13:36-0400 Body temperature 98.1 [degF] Nany Petznick DO Work Phone: [facility] 08-28-2024 13:36-0400 Body weight 102.06 kg Nany Petznick DO Work Phone: [facility] 08-28-2024 13:36-0400 Diastolic blood pressure 62 mm[Hg] Nany Petznick DO Work Phone: [facility] 08-28-2024 13:36-0400 Heart rate 63 /min Nany Petznick DO Work Phone: [facility] 08-28-2024 13:36-0400 SaO2% (BldA) [Mass fraction] 99 % Nany Petznick DO Work Phone: [facility] 08-28-2024 13:36-0400 Systolic blood pressure 114 mm[Hg] Nany Petznick DO Work Phone: [facility] 07-13-2024 10:58-0400 Body height 177.8 cm Jesus Posey DO Work Phone: [facility] 07-13-2024 10:58-0400 Body mass index (BMI) [Ratio] 32.14 kg/m2 Jesus Posey DO Work Phone: [facility] 07-13-2024 10:58-0400 Body weight 101.61 kg Jesus Posey DO Work Phone: [facility] 07-13-2024 10:58-0400 Diastolic blood pressure 52 mm[Hg] Jesus Posey DO Work Phone: [facility] 07-13-2024 10:58-0400 Heart rate 74 /min Jesus Posey DO Work Phone: [facility] 07-13-2024 10:58-0400 Systolic blood pressure 90 mm[Hg] Jesus Posey DO Work Phone: [facility] 06-26-2024 15:04-0400 Body height 175.3 cm Nany Petznick DO Work Phone: [facility] 06-26-2024 15:04-0400 Body mass index (BMI) [Ratio] 33.23 kg/m2 Nany Petznick DO Work Phone: [facility] 06-26-2024 15:04-0400 Body temperature 97.7 [degF] Nany Petznick DO Work Phone: [facility] 06-26-2024 15:04-0400 Body weight 102.06 kg Nany Petznick DO Work Phone: [facility] 06-26-2024 15:04-0400 Diastolic blood pressure 62 mm[Hg] Nany Petznick DO Work Phone: [facility] 06-26-2024 15:04-0400 Heart rate 64 /min Nany Petznick DO Work Phone: [facility] 06-26-2024 15:04-0400 Systolic blood pressure 104 mm[Hg] Nany Petznick DO Work Phone: [facility] 06-20-2024 15:07-0400 Body height 175.3 cm Carmen Ha MD Work Phone: [facility] 06-20-2024 15:07-0400 Body mass index (BMI) [Ratio] 33.97 kg/m2 Carmen Ha MD Work Phone: [facility] 06-20-2024 15:07-0400 Body weight 104.33 kg Carmen Ha MD Work Phone: [facility] 06-20-2024 15:07-0400 Diastolic blood pressure 60 mm[Hg] Carmen Ha MD Work Phone: [facility] 06-20-2024 15:07-0400 Heart rate 76 /min Carmen Ha MD Work Phone: [facility] 06-20-2024 15:07-0400 Systolic blood pressure 100 mm[Hg] Carmen Ha MD Work Phone: [facility] 06-08-2024 12:37-0400 Body height 175.3 cm Gino Dow MD Work Phone: [facility] 06-08-2024 12:37-0400 Body mass index (BMI) [Ratio] 33.97 kg/m2 Gino Dow MD Work Phone: [facility] 06-08-2024 12:37-0400 Body weight 104.33 kg Gino Dow MD Work Phone: [facility] 06-08-2024 12:37-0400 Diastolic blood pressure 60 mm[Hg] Gino Dow MD Work Phone: [facility] 06-08-2024 12:37-0400 Respiratory rate 16 /min Gino Dow MD Work Phone: [facility] 06-08-2024 12:37-0400 Systolic blood pressure 90 mm[Hg] Gino Dow MD Work Phone: [facility] 05-23-2024 14:52-0500 Body height 175.3 cm Nany Howe DO Work Phone: [facility] 05-23-2024 14:52-0500 Body mass index (BMI) [Ratio] 34.26 kg/m2 Nany Howe DO Work Phone: [facility] 05-23-2024 14:52-0500 Body temperature 98.1 [degF] Nany Petznick DO Work Phone: [facility] 05-23-2024 14:52-0500 Body weight 105.23 kg Nany Petznick DO Work Phone: [facility] 05-23-2024 14:52-0500 Diastolic blood pressure 62 mm[Hg] Nany Petznick DO Work Phone: [facility] 05-23-2024 14:52-0500 Heart rate 76 /min Nany Petznick DO Work Phone: [facility] 05-23-2024 14:52-0500 SaO2% (BldA) [Mass fraction] 96 % Nany Petznick DO Work Phone: [facility] 05-23-2024 14:52-0500 Systolic blood pressure 100 mm[Hg] Nany Petznick DO Work Phone: [facility] 05-03-2024 10:28-0500 Body height 175.26 cm [facility] 05-03-2024 10:28-0500 Body mass index (BMI) [Ratio] 34.1 kg/m2 [facility] 05-03-2024 10:28-0500 Body weight 104.77 kg [facility] 05-03-2024 10:28-0500 Diastolic blood pressure 63 mm[Hg] [facility] 05-03-2024 10:28-0500 Heart rate 78 /min [facility] 05-03-2024 10:28-0500 Respiratory rate 12 /min [facility] 05-03-2024 10:28-0500 Systolic blood pressure 99 mm[Hg] [facility] 03-07-2024 14:17-0500 Body height 175.3 cm Darrel Lucia MD Work Phone: [facility] 03-07-2024 14:17-0500 Body mass index (BMI) [Ratio] 34.41 kg/m2 Darrel Lucia MD Work Phone: [facility] 03-07-2024 14:17-0500 Body weight 105.69 kg Darrel Lucia MD Work Phone: [facility] 03-07-2024 14:17-0500 Diastolic blood pressure 67 mm[Hg] Darrel Lucia MD Work Phone: [facility] 03-07-2024 14:17-0500 Systolic blood pressure 80 mm[Hg] Darrel Lucia MD Work Phone: [facility] 2024 08:57-0500 Body height 175.26 cm [facility] 2024 08:57-0500 Body mass index (BMI) [Ratio] 34.7 kg/m2 [facility] 2024 08:57-0500 Body weight 106.59 kg [facility] 2024 08:57-0500 Diastolic blood pressure 67 mm[Hg] [facility] 2024 08:57-0500 Heart rate 79 /min [facility] 2024 08:57-0500 Systolic blood pressure 108 mm[Hg] [facility] 01-12-2024 10:53-0400 Body height 175.3 cm Jesus Posey DO Work Phone: [facility] 01-12-2024 10:53-0400 Body mass index (BMI) [Ratio] 35.09 kg/m2 Jesus Posey DO Work Phone: [facility] 01-12-2024 10:53-0400 Body weight 107.78 kg Jesus Posey DO Work Phone: [facility] 01-12-2024 10:53-0400 Diastolic blood pressure 62 mm[Hg] Jesus Posey DO Work Phone: [facility] 01-12-2024 10:53-0400 Heart rate 73 /min Jesus Posey DO Work Phone: [facility] 01-12-2024 10:53-0400 Systolic blood pressure 108 mm[Hg] Jesus Posey DO Work Phone: [facility] 12-03-2023 14:53-0400 Body mass index (BMI) [Ratio] 33 kg/m2 Carmen Ha MD Work Phone: [facility] 12-03-2023 14:53-0400 Body weight 104.33 kg Carmen Ha MD Work Phone: [facility] 12-03-2023 14:53-0400 Diastolic blood pressure 56 mm[Hg] Carmen Ha MD Work Phone: [facility] 12-03-2023 14:53-0400 Heart rate 76 /min Carmen Ha MD Work Phone: [facility] 12-03-2023 14:53-0400 Systolic blood pressure 84 mm[Hg] Carmen Ha MD Work Phone: [facility] 11-15-2023 08:44-0400 Body height 176.53 cm [facility] 11-15-2023 08:44-0400 Body mass index (BMI) [Ratio] 34.6 kg/m2 [facility] 11-15-2023 08:44-0400 Body temperature 97.8 [degF] [facility] 11-15-2023 08:44-0400 Body weight 107.95 kg [facility] 11-15-2023 08:44-0400 Diastolic blood pressure 64 mm[Hg] [facility] 11-15-2023 08:44-0400 Heart rate 80 /min [facility] 11-15-2023 08:44-0400 Respiratory rate 20 /min [facility] 11-15-2023 08:44-0400 Systolic blood pressure 108 mm[Hg] [facility] 10-05-2023 13:30-0400 Body height 177.8 cm Ivania Velazquez APRN-MAHENDRA Work Phone: [facility] 10-05-2023 13:30-0400 Body mass index (BMI) [Ratio] 34.29 kg/m2 Ivania Velazquez APRN-VIDEO GAME [employer]ATOR Work Phone: [facility] 10-05-2023 13:30-0400 Body weight 108.41 kg Ivania Velazquez POCKET CUTTER-[employer]IDEO GAME [employer]ATOR Work Phone: [facility] 10-05-2023 13:30-0400 Diastolic blood pressure 69 mm[Hg] Ivania Velazquez POCKET CUTTER-[employer]IDEO G[employer]ATOR Work Phone: [facility] 10-05-2023 13:30-0400 Heart rate 79 /min Ivania Velazquez POCKET CUTTER-[employer]ATOR Work Phone: [facility] 10-05-2023 13:30-0400 Systolic blood pressure 100 mm[Hg] Ivania Velazquez POCKET CUTTER-[employer]IDEO G[employer]ATOR Work Phone: [facility] 09-13-2023 08:31-0400 Body height 175.3 cm Ivania Velazquez POCKET CUTTER-[employer]IDEO [employer]ATOR Work Phone: [facility] 09-13-2023 08:31-0400 Body mass index (BMI) [Ratio] 35.59 kg/m2 Ivania Velazquez POCKET C[employer]TER-[employer]ATOR Work Phone: [facility] 09-13-2023 08:31-0400 Body weight 109.32 kg Ivania Velazquez POCKET CUTTER-[employer]IDEO G[employer]ATOR Work Phone: [facility] 09-13-2023 08:31-0400 Diastolic blood pressure 70 mm[Hg] Ivania Velazquez POCKET CUTTER-[employer]IDEO G[employer]ATOR Work Phone: [facility] 09-13-2023 08:31-0400 Heart rate 75 /min Ivania Velazquez POCKET CUTTER-[employer]IDEO G[employer]ATOR Work Phone: [facility] 09-13-2023 08:31-0400 Systolic blood pressure 138 mm[Hg] Ivania Velazquez POCKET CUTTER-VIDEO G[employer]ATOR Work Phone: [facility] 08-24-2023 12:45-0400 Body height 175.[address] 08-24-2023 12:45-0400 Body mass index (BMI) [Ratio] 35.59 kg/m2 [address] 08-24-2023 12:45-0400 Body weight 109.[address] 08-24-2023 12:45-0400 Diastolic blood pressure 60 mm[Hg] [address] 08-24-2023 12:45-0400 Systolic blood pressure 120 mm[Hg] [address] 08-02-2023 09:55-0400 Body height 176.53 cm [facility] 08-02-2023 09:55-0400 Body mass index (BMI) [Ratio] 35 kg/m2 [facility] 08-02-2023 09:55-0400 Body weight 109.31 kg [facility] 08-02-2023 09:55-0400 Diastolic blood pressure 66 mm[Hg] [facility] 08-02-2023 09:55-0400 Heart rate 79 /min [facility] 08-02-2023 09:55-0400 Respiratory rate 20 /min [facility] 08-02-2023 09:55-0400 Systolic blood pressure 133 mm[Hg] [facility] 07-13-2023 10:23-0400 Diastolic blood pressure 60 mm[Hg] Jesus Posey DO Work Phone: [facility] 07-13-2023 10:23-0400 Systolic blood pressure 90 mm[Hg] Jesus Posey DO Work Phone: [facility] 07-13-2023 10:16-0400 Body height 175.3 cm Jesus Posey DO Work Phone: [facility] 07-13-2023 10:16-0400 Body mass index (BMI) [Ratio] 35.59 kg/m2 Jesus Posey DO Work Phone: [facility] 07-13-2023 10:16-0400 Body weight 109.32 kg Jesus Posey DO Work Phone: [facility] 07-13-2023 10:16-0400 Heart rate 80 /min Jesus Posey DO Work Phone: [facility] 05-21-2023 13:17-0500 Body height 175.3 cm Carmen Ha MD Work Phone: [facility] 05-21-2023 13:17-0500 Body mass index (BMI) [Ratio] 35.29 kg/m2 Carmen Ha MD Work Phone: [facility] 05-21-2023 13:17-0500 Body weight 108.41 kg Carmen Ha MD Work Phone: [facility] 05-21-2023 13:17-0500 Diastolic blood pressure 78 mm[Hg] Carmen Ha MD Work Phone: [facility] 05-21-2023 13:17-0500 Heart rate 72 /min Carmen Ha MD Work Phone: [facility] 05-21-2023 13:17-0500 Systolic blood pressure 128 mm[Hg] Carmen Ha MD Work Phone: [facility] 05-04-2023 11:53-0500 Body height 176.53 cm DO Lee Ball Work Phone: [facility] 05-04-2023 11:53-0500 Body mass index (BMI) [Ratio] 35.2 kg/m2 DO Lee Ball Work Phone: [facility] 05-04-2023 11:53-0500 Body weight 109.76 kg DO Lee Ball Work Phone: [facility] 05-04-2023 11:53-0500 Diastolic blood pressure 72 mm[Hg] DO Lee Ball Work Phone: [facility] 05-04-2023 11:53-0500 Heart rate 72 /min DO Lee Ball Work Phone: [facility] 05-04-2023 11:53-0500 Respiratory rate 20 /min DO Lee Ball Work Phone: [facility] 05-04-2023 11:53-0500 Systolic blood pressure 131 mm[Hg] DO Lee Ball Work Phone: [facility] 04-14-2023 09:30-0500 Body height 176.53 cm Lee Ball Other [facility] 04-14-2023 09:30-0500 Body mass index (BMI) [Ratio] 34.87 kg/m2 Lee Ball Other [facility] [employer] Other 04-14-2023 09:30-0500 Body weight 108.68 kg Lee Ball Other [facility] 04-14-2023 09:30-0500 Diastolic blood pressure 70 mm[Hg] Lee Ball Other [facility] 04-14-2023 09:30-0500 Respiratory rate 20 /min Lee Ball Other [facility] [employer] Other 04-14-2023 09:30-0500 Systolic blood pressure 116 mm[Hg] Lee Ball Other [facility] 2023 11:30-0500 Body height 176.53 cm Lee Ball Other [facility] [employer] Other 2023 11:30-0500 Body mass index (BMI) [Ratio] 34.23 kg/m2 Lee Ball Other [employer] Other 2023 11:30-0500 Body weight 106.69 kg Lee Ball Other [employer] Other 2023 11:30-0500 Diastolic blood pressure 53 mm[Hg] Lee Ball Other [employer] Other 2023 11:30-0500 Respiratory rate 16 /min Lee Ball Other [employer] Other 2023 11:30-0500 Systolic blood pressure 92 mm[Hg] Lee Ball Other [employer] Other 01-12-2023 16:22-0400 Body height 175.3 cm Ivania Velazquez POCKET CUTTER-VIDEO GAME [employer]ATOR Work Phone: [facility] 01-12-2023 16:22-0400 Body mass index (BMI) [Ratio] 33.97 kg/m2 Ivania Velazquez POCKET C[employer]TER-[employer]ATOR Work Phone: [facility] 01-12-2023 16:22-0400 Body temperature 98.01 [degF] Ivania Velazquez POCKET CUTTER-VIDEO G[employer]ATOR Work Phone: [facility] 01-12-2023 16:22-0400 Body weight 104.33 kg Ivania Velazquez POCKET CUTTER-[employer]IDEO G[employer]ATOR Work Phone: [facility] 01-12-2023 16:22-0400 Diastolic blood pressure 80 mm[Hg] Ivania Velazquez POCKET CUTTER-VIDEO G[employer]ATOR Work Phone: [facility] 01-12-2023 16:22-0400 Heart rate 72 /min Ivania Velazquez POCKET CUTTER-VIDEO GAME CREATOR Work Phone: [facility] 01-12-2023 16:22-0400 Systolic blood pressure 120 mm[Hg] Ivania Velazquez POCKET CUTTER-VIDEO GAME CREATOR Work Phone: [facility] 01-05-2023 11:00-0400 Body height 176.53 cm Lee Ball Other [employer] Other 01-05-2023 11:00-0400 Body mass index (BMI) [Ratio] 33.47 kg/m2 Lee Ball Other [employer] Other 01-05-2023 11:00-0400 Body weight 104.33 kg Lee Ball Other [employer] Other 01-05-2023 11:00-0400 Diastolic blood pressure 68 mm[Hg] Lee Ball Other [employer] Other 01-05-2023 11:00-0400 Respiratory rate 20 /min Lee Ball Other [facility] [employer] Other 01-05-2023 11:00-0400 Systolic blood pressure 115 mm[Hg] Lee Ball Other [facility] [employer] Other 11-30-2022 10:35-0400 Body height 175.26 cm Lee E Ball Work Phone: [facility] [employer] [employer] DO Work Phone: 11-30-2022 10:35-0400 Body mass index (BMI) [Ratio] 33.67 kg/m2 Lee E Ball Work Phone: [facility] [employer] DO Work Phone: 11-30-2022 10:35-0400 Body surface area Derived from formula 2.18 m2 Lee E Ball Work Phone: [facility] [employer] [employer] DO Work Phone: 11-30-2022 10:35-0400 Body weight 103.42 kg Lee E Ball Work Phone: [facility] [employer] [employer] DO Work Phone: 11-30-2022 10:35-0400 Diastolic blood pressure 60 mm[Hg] Lee E Ball Work Phone: [facility] [employer] DO Work Phone: 11-30-2022 10:35-0400 Heart rate 59 /min Lee E Ball Work Phone: [facility] [employer] DO Work Phone: 11-30-2022 10:35-0400 Systolic blood pressure 122 mm[Hg] Lee E Ball Work Phone: [facility] [employer] DO Work Phone: 11-25-2022 11:48-0400 Body height 175.26 cm Lee E Ball Work Phone: [facility] 250 DO Work Phone: 11-25-2022 11:48-0400 Body mass index (BMI) [Ratio] 33.97 kg/m2 Lee E Ball Work Phone: [facility] 250 DO Work Phone: 11-25-2022 11:48-0400 Body surface area Derived from formula 2.19 m2 Lee E Ball Work Phone: [facility] [employer] DO Work Phone: 11-25-2022 11:48-0400 Body weight 104.33 kg Lee E Ball Work Phone: [facility] [employer] DO Work Phone: 11-25-2022 11:48-0400 Diastolic blood pressure 62 mm[Hg] Lee E Ball Work Phone: [facility] [employer] DO Work Phone: 11-25-2022 11:48-0400 Heart rate 70 /min Lee E Ball Work Phone: [facility] [facility] DO Work Phone: 11-25-2022 11:48-0400 Systolic blood pressure 104 mm[Hg] Lee E Ball Work Phone: [facility] [employer] DO Work Phone: 11-19-2022 16:20-0400 Diastolic blood pressure 86 mm[Hg] DO Lee Ball Work Phone: [facility] 11-19-2022 16:20-0400 Heart rate 70 /min DO Lee Ball Work Phone: [facility] 11-19-2022 16:20-0400 Respiratory rate 16 /min DO Lee Ball Work Phone: [facility] 11-19-2022 16:20-0400 SaO2% (BldA) [Mass fraction] 96 % DO Lee Ball Work Phone: [facility] 11-19-2022 16:20-0400 Systolic blood pressure 144 mm[Hg] DO Lee Ball Work Phone: [facility] 11-19-2022 11:13-0400 Body height 175.26 cm DO Lee Ball Work Phone: [facility] 11-19-2022 11:13-0400 Body temperature 97.1 [degF] DO Lee Ball Work Phone: [facility] 11-19-2022 11:13-0400 Body weight 104.2 kg DO Lee Ball Work Phone: [facility] 10-14-2022 11:00-0400 Body height 176.53 cm Delroy Shani Other [facility] [employer] Other 10-14-2022 11:00-0400 Body mass index (BMI) [Ratio] 33.18 kg/m2 Delroy Shani Other [employer] Other 10-14-2022 11:00-0400 Body weight 103.42 kg Delroy Shani Other [employer] Other 09-30-2022 10:00-0400 Body height 176.53 cm Delroy Shani Other [employer] Other 09-30-2022 10:00-0400 Body mass index (BMI) [Ratio] 33.18 kg/m2 Delroy Shani Other [employer] Other 09-30-2022 10:00-0400 Body weight 103.42 kg Delroy Shani Other [employer] Other 09-08-2022 15:00-0400 Body height 176.53 cm Lee Ball Other [employer] Other 09-08-2022 15:00-0400 Body mass index (BMI) [Ratio] 34.06 kg/m2 Lee Ball Other [employer] Other 09-08-2022 15:00-0400 Body weight 106.14 kg Lee Ball Other [employer] Other 09-08-2022 15:00-0400 Diastolic blood pressure 61 mm[Hg] Lee Ball Other [employer] Other 09-08-2022 15:00-0400 Respiratory rate 20 /min Lee Ball Other [employer] Other 09-08-2022 15:00-0400 Systolic blood pressure 98 mm[Hg] Lee Ball Other [employer] Other 07-14-2022 09:21-0400 Body height 175.26 cm Lee E Ball Work Phone: [employer] DO Work Phone: 07-14-2022 09:21-0400 Body mass index (BMI) [Ratio] 35.15 kg/m2 Lee E Ball Work Phone: [employer] DO Work Phone: 07-14-2022 09:21-0400 Body surface area Derived from formula 2.22 m2 Lee E Ball Work Phone: [employer] DO Work Phone: 07-14-2022 09:21-0400 Body weight 107.96 kg Lee E Ball Work Phone: [facility] [employer] 250 DO Work Phone: 07-14-2022 09:21-0400 Diastolic blood pressure 64 mm[Hg] Lee Rowell Ball Work Phone: [facility] [employer] DO Work Phone: 07-14-2022 09:21-0400 Heart rate 70 /min Lee E Ball Work Phone: [facility] [employer] DO Work Phone: 07-14-2022 09:21-0400 Systolic blood pressure 122 mm[Hg] Lee E Ball Work Phone: [facility] [facility] DO Work Phone: 05-13-2022 11:33-0500 Body height 175.26 cm Lee E Ball Work Phone: [facility] [facility] DO Work Phone: 05-13-2022 11:33-0500 Body mass index (BMI) [Ratio] 35.29 kg/m2 Lee Rowell Ball Work Phone: [facility] [facility] DO Work Phone: 05-13-2022 11:33-0500 Body surface area Derived from formula 2.23 m2 Lee E Ball Work Phone: [facility] 250 DO Work Phone: 05-13-2022 11:33-0500 Body weight 108.41 kg Lee Rowell Ball Work Phone: [facility] 250 DO Work Phone: 05-13-2022 11:33-0500 Diastolic blood pressure 72 mm[Hg] Lee E Ball Work Phone: [facility] [employer] DO Work Phone: 05-13-2022 11:33-0500 Heart rate 70 /min Lee E Ball Work Phone: [facility] [employer] DO Work Phone: 05-13-2022 11:33-0500 Systolic blood pressure 134 mm[Hg] Lee E Ball Work Phone: [employer] DO Work Phone: 04-08-2022 11:00-0500 Body height 176.53 cm Lee Ball Other [employer] Other 04-08-2022 11:00-0500 Body mass index (BMI) [Ratio] 33.79 kg/m2 Lee Ball Other [employer] Other 04-08-2022 11:00-0500 Body weight 105.33 kg Lee Ball Other [employer] Other 04-08-2022 11:00-0500 Diastolic blood pressure 70 mm[Hg] Lee Ball Other [employer] Other 04-08-2022 11:00-0500 Respiratory rate 20 /min Lee Ball Other [employer] Other 04-08-2022 11:00-0500 Systolic blood pressure 122 mm[Hg] Lee Ball Other [employer] Other 04-16-2021 09:43-0500 Body height 175.26 cm Lee E Ball Work Phone: [employer] DO Work Phone: 04-16-2021 09:43-0500 Body mass index (BMI) [Ratio] 32.93 kg/m2 Lee E Ball Work Phone: [employer] DO Work Phone: 04-16-2021 09:43-0500 Body surface area Derived from formula 2.16 m2 Lee E Ball Work Phone: [employer] DO Work Phone: 04-16-2021 09:43-0500 Body weight 101.15 kg Lee Segovia Work Phone: [facility] [facility] DO Work Phone: 04-16-2021 09:43-0500 Diastolic blood pressure 70 mm[Hg] Lee Segovia Work Phone: [facility] [facility] DO Work Phone: 04-16-2021 09:43-0500 Heart rate 71 /min Lee Segovia Work Phone: [facility] [facility] 250 DO Work Phone: 04-16-2021 09:43-0500 Systolic blood pressure 115 mm[Hg] Lee Segovia Work Phone: [facility] 250 DO Work Phone: Encounters Encounter Date Encounter Type Care Provider Facility Start: 12-13-2024 End: 12-13-2024 ambulatory JERZY URBANO Facility:[facility] Start: 12-04-2024 End: 12-04-2024 ambulatory Lee Segovia DO Work Phone: [facility] Work Phone: Start: 12-04-2024 End: 12-04-2024 Patient encounter procedure Lee Rajesh -[facility] Work Phone: Start: 11-30-2024 Non-patient / Non-visit Lee lira DO -[facility] Work Phone: Start: 11-28-2024 End: 11-28-2024 ambulatory NANY HOWE Not Available Start: 11-28-2024 End: 11-28-2024 Office outpatient visit 25 minutes Nany Howe DO Work Phone: [facility] [phone] Comment on above: 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 (HCC) Start: 11-09-2024 End: 11-09-2024 ambulatory Lee Rajesh DO Work Phone: [facility] Work Phone: Start: 11-09-2024 End: 11-09-2024 Patient encounter procedure Lee Segovia DO -[facility] Work Phone: Start: 10-09-2024 Non-patient / Non-visit Maris Lowery -Counts Include [facility] Neurology Work Phone: Start: 08-28-2024 End: 08-28-2024 Office outpatient visit 25 minutes Nany Howe DO Work Phone: [facility] 230 Comment on above: Type 2 diabetes natonella itus with other circulatory complications Start: 08-28-2024 End: 08-28-2024 ambulatory NANY HOWE Not Available Start: 08-05-2024 Patient encounter procedure Lee Segovia DO Work Phone: [facility] Start: 07-18-2024 Non-patient / Non-visit Catrachita Segovia DO Work Phone: [facility] Physician Group-Counts Include 234 [facility]eds At [facility] Pulmonary Work Phone: Start: 07-18-2024 End: 07-18-2024 Patient encounter procedure Lee Segovia DO Work Phone: [facility]Res[facility] Therapy Work Phone: Start: 07-18-2024 End: 07-18-2024 ambulatory Lee Segovia DO Work Phone: [facility] Work Phone: Start: 07-13-2024 End: 07-13-2024 Office outpatient visit 40 minutes Jesus Posey DO Work Phone: [facility] Comment on above: 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; Ischemic cardiomyopathy; Status post angioplasty; S/P CABG x 4; Paroxysmal atrial fibrillation (Multi); Biventricular ICD (implantable cardioverter-defibrillator) in place; High risk medication use; Current every day smoker; Other specified diabetes mellitus without complication, with long-term current use of insulin; Congestive heart failure, unspecified HF chronicity, unspecified heart failure type; BMI 32.0-32.9,adult; Mixed hyperlipidemia; ASHD (arteriosclerotic heart disease) Start: 07-13-2024 End: 07-13-2024 ambulatory [facility] Ambulatory Start: 06-26-2024 End: 06-26-2024 Office outpatient visit 25 minutes Nany Howe DO Work Phone: [facility] 230 Comment on above: 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 (Primary Dx) Start: 06-26-2024 End: 06-26-2024 ambulatory NANY HOWE Not Available Start: 06-26-2024 End: 06-26-2024 Bamboo flowsheet Nany Okeefe Pettomick DO Work Phone: [facility] 230 Start: 06-26-2024 End: 06-26-2024 Bamboo flowsheet Nany Okeefe Pettomick DO Work Phone: [facility] 230 Start: 06-20-2024 End: 06-20-2024 Office outpatient visit 25 minutes Carmen Ha MD Work Phone: [facility] Comment on above: Biventricular ICD (i mplantable cardioverter-defibrillator) in place (Primary Dx); High risk medication use; 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; Congestive heart failure, unspecified HF chronicity, unspecified heart failure type; H/O sick sinus syndrome; Mixed hyperlipidemia; Primary hypertension; Ischemic cardiomyopathy; LBBB (left bundle branch block); Paroxysmal atrial fibrillation (Multi); RBBB; S/P CABG x 4; BMI 33.0-33.9,adult; Encounter for medication review and counseling; Encounter to discuss treatment options; Current every day smoker; Mechanical complication of implantable cardioverter-defibrillator (ICD) Start: 06-20-2024 End: 06-20-2024 Subsequent hospital visit by physician [facility] Comment on above: Biventricular ICD (i mplantable cardioverter-defibrillator) in place Start: 06-20-2024 End: 06-20-2024 ambulatory CARMEN HA [facility] Start: 06-12-2024 End: 06-12-2024 Patient encounter procedure [facility] Aura Hernandez [facility] Comment on above: Mixed conductive and sensorineural hearing loss, bilateral (Primary Dx) Start: 06-12-2024 End: 06-12-2024 ambulatory LOLIS MCNULTY Not Available Start: 06-08-2024 End: 06-08-2024 Bamboo flowsheet Gino Dow MD Work Phone: [facility] Start: 06-08-2024 End: 06-08-2024 Bamboo flowsheet Gino Dow MD Work Phone: [facility] Start: 06-08-2024 End: 06-08-2024 Office outpatient visit 25 minutes Gino Dow MD Work Phone: [facility] Comment on above: Stenosis of carotid artery, unspecified laterality; Stenosis of middle cerebral artery, unspecified laterality; Occlusion and stenosis of basilar artery; Dizziness; Seizure disorder (CMS/HCC); Central vestibular vertigo; Cerebrovascular accident (CVA) due to occlusion of right carotid artery (CMS/HCC); Radiculopathy, lumbosacral region; Paresthesia Start: 06-08-2024 End: 06-08-2024 ambulatory GINO DOW Not Available Start: 05-23-2024 End: 05-23-2024 Office outpatient new 45 minutes Nany Howe DO Work Phone: [facility] 230 Comment on above: 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) (Primary Dx) Start: 05-23-2024 End: 05-23-2024 ambulatory NANY HOWE Not Available Start: 05-17-2024 ambulatory Lee Ball DO Work Phone: [facility] Work Phone: Start: 05-17-2024 Non-patient / Non-visit Benjam in Ball DO Work Phone: [facility] Work Phone: Start: 05-10-2024 Non-patient / Non-visit Benjam in Ball DO Work Phone: [facility] Physician [facility] Health Pulmonary Work Phone: Start: 05-10-2024 End: 05-10-2024 Patient encounter procedure Lee Segovia DO Work Phone: [facility] Work Phone: Start: 05-10-2024 End: 05-10-2024 ambulatory Lee Segovia DO Work Phone: [facility] Work Phone: Start: 05-03-2024 End: 05-03-2024 ambulatory [facility] Work Phone: Start: 05-03-2024 End: 05-03-2024 Patient encounter procedure [facility] Work Phone: Start: 05-01-2024 End: 05-01-2024 Bamboo flowsheet Lolis Disha Mcnulty CCC-A Work Phone: [facility] Start: 05-01-2024 End: 05-01-2024 Bamboo flowsheet Lolis Disha Jasmyn CCC-A Work Phone: [facility] Start: 05-01-2024 End: 05-01-2024 Clinical Support Lolis Mcnulty CCC-A Work Phone: [facility] Comment on above: Mixed conductive and sensorineural hearing loss, bilateral (Primary Dx) Start: 05-01-2024 End: 05-01-2024 ambulatory LOLIS MCNULTY Not Available Start: 03-08-2024 End: 03-08-2024 Patient encounter procedure [facility] Physician [facility] Work Phone: Start: 03-07-2024 End: 03-07-2024 Office outpatient visit 25 minutes Darrel Lucia MD Work Phone: [facility] Comment on above: Dizziness and giddin ess (Primary Dx); Syncope, unspecified syncope type Start: 03-07-2024 End: 03-07-2024 ambulatory DARREL LUCIA Not Available Start: 03-07-2024 Non-patient / Non-visit [facility] Physician [facility] Work Phone: Start: 03-06-2024 End: 03-06-2024 ambulatory MARCELLA AGEESorin Not Available Start: 03-06-2024 End: 03-06-2024 Office outpatient visit 15 minutes Marcella LATHAM Work Phone: [facility] Comment on above: Stenosis of carotid artery, unspecified laterality (Primary Dx); Stenosis of middle cerebral artery, unspecified laterality; Occlusion and stenosis of basilar artery; Dizziness Start: 2024 End: 2024 ambulatory [facility] Work Phone: Start: 2024 End: 2024 Patient encounter procedure [facility] Physician [facility] Work Phone: Start: 01-26-2024 Non-patient / Non-visit [facility] Physician [facility] Work Phone: Start: 01-12-2024 End: 01-12-2024 Office outpatient visit 25 minutes Jesus Posey Work Phone: [facility] Comment on above: 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; Ischemic cardiomyopathy; Congestive [...] day smoker Start: 01-12-2024 End: 01-12-2024 ambulatory [facility] Ambulatory Start: 01-12-2024 End: 01-12-2024 Subsequent hospital visit by physician Rad External Film EF [facility]TER[facility] Comment on above: Paroxysmal atrial fi brillation (Multi); High risk medication use Start: 12-03-2023 End: 12-03-2023 Office outpatient visit 25 minutes Carmen Ha MD Work Phone: [facility] Comment on above: Biventricular ICD (i mplantable cardioverter-defibrillator) in place (Primary Dx); H/O sick sinus syndrome; Ischemic cardiomyopathy; Congestive heart failure, unspecified HF chronicity, unspecified heart failure type (Multi); LBBB (left bundle branch block); 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; S/P CABG x 4; Primary hypertension; Mixed hyperlipidemia; Encounter for medication review and counseling; Encounter to discuss treatment options; BMI 33.0-33.9,adult; Current every day smoker Start: 12-03-2023 End: 12-03-2023 ambulatory CAREMN HA [facility] Start: 12-03-2023 End: 12-03-2023 Subsequent hospital visit by physician [facility] Comment on above: Biventricular ICD (i mplantable cardioverter-defibrillator) in place Start: 11-15-2023 End: 11-15-2023 [facility] Work Phone: Start: 11-15-2023 End: 11-15-2023 Patient encounter procedure [facility] Physician [facility] Work Phone: Start: 10-29-2023 End: 10-29-2023 [facility] Work Phone: Start: 10-29-2023 End: 10-29-2023 Patient encounter procedure [facility] Physician [facility] Work Phone: Start: 10-08-2023 Non-patient / Non-visit [facility] Physician [facility] Work Phone: Start: 10-05-2023 End: 10-05-2023 Office outpatient visit 25 minutes Ivania Velazquez APRN-VIDEO GAME CREATOR Work Phone: [facility] Comment on above: Biventricular ICD (i mplantable cardioverter-defibrillator) in place (Primary Dx); Ischemic cardiomyopathy; 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; Primary hypertension; Mixed hyperlipidemia; 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,adult; superintendent terminal current use of anticoagulant therapy; High risk medication use; Paroxysmal atrial fibrillation (Multi); Current every day smoker Start: 10-05-2023 End: 10-05-2023 ambulatory [facility] Ambulatory Start: 09-15-2023 Non-patient / Non-visit [facility] Work Phone: Start: 09-13-2023 End: 09-13-2023 Office outpatient visit 25 minutes Ivania Donahue [place] POCKET CUTTER-VIDEO GAME CREATOR Work Phone: [facility] Comment on above: Ischemic cardiomyopa thy (Primary Dx); Atherosclerosis of [place] coronary artery of [place] heart without angina pectoris; Paroxysmal atrial fibrillation (Multi); High risk medication use; superintendent terminal current 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 of anticoagulant therapy; Mixed hyperlipidemia; Primary hypertension; BMI 35.0-35.9,adult; Other specified diabetes mellitus without complication, with long-term current use of insulin (Multi); Current every day smoker; Biventricular ICD (implantable cardioverter-defibrillator) in place Start: 09-13-2023 End: 09-13-2023 ambulatory [facility] Ambulatory Start: 09-03-2023 Non-patient / Non-visit [facility] Work Phone: Start: 08-24-2023 End: 08-24-2023 ambulatory [facility] Start: 08-24-2023 End: 08-24-2023 Subsequent hospital visit by physician Maggie Koroma305 Echo/Vasc 3 [facility] Comment on above: Shortness of breath Start: 08-02-2023 End: 08-02-2023 ambulatory [facility] Work Phone: Start: 08-02-2023 End: 08-02-2023 Patient encounter procedure [facility] Physician [facility] Work Phone: Start: 07-13-2023 End: 01-12-2024 ambulatory JESUS POSEY [facility] Start: 07-13-2023 End: 07-13-2023 Office outpatient visit 40 minutes Jesus Posey DO Work Phone: [facility] Comment on above: Biventricular ICD (i mplantable cardioverter-defibrillator) in place; Ischemic cardiomyopathy; 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; Paroxysmal atrial fibrillation (Multi); S/P CABG x 4; Status post angioplasty; Primary hypertension; Mixed hyperlipidemia; High risk medication use; Chronotropic incompetence with sinus node dysfunction; BMI 35.0-35.9,adult; Current every day smoker Start: 05-21-2023 End: 05-21-2023 Office outpatient visit 40 minutes Carmen Ha MD Work Phone: [facility] Comment on above: Shortness of breath (Primary Dx); Cardiac pacemaker in situ; H/O sick sinus syndrome; Biventricular ICD (implantable cardioverter-defibrillator) in place; Ischemic cardiomyopathy; Congestive heart failure, unspecified HF chronicity, unspecified heart failure type (CMS/HCC); LBBB (left bundle branch block); S/P CABG x 4; Atherosclerosis of [place] coronary artery of [place] heart without angina pectoris; Primary hypertension; Mixed hyperlipidemia; BMI 35.0-35.9,adult; Current every day smoker; Encounter for medication review and counseling; Encounter to discuss treatment options Start: 05-21-2023 End: 05-21-2023 Subsequent hospital visit by physician [facility] Comment on above: Ischemic cardiomyopa thy; Cardiac pacemaker in situ Cardiac pacemaker in situ Start: 05-04-2023 End: 05-04-2023 ambulatory DO Lee Rajesh Work Phone: [facility] Work Phone: Start: 05-04-2023 End: 05-04-2023 Patient encounter procedure DO Lee Rajesh Work Phone: [facility] Physician Group-[facility] Work Phone: Start: 04-14-2023 End: 04-14-2023 ambulatory Lee Segovia Other [employer] Other Start: 04-14-2023 Office outpatient vi sit 15 minutes Lee Segovia [facility] Start: 04-14-2023 End: 04-14-2023 Patient encounter procedure DO Lee Rajesh Work Phone: [facility] Physician Group- Start: 03-31-2023 End: 03-31-2023 ambulatory Lee Segovia Other [employer] Other Start: 03-31-2023 Telephone encounter Lee Segovia [facility] Start: 03-24-2023 End: 03-24-2023 Patient encounter procedure DO Lee Ball Work Phone: [facility]Res[facility] Therapy Work Phone: Start: 03-17-2023 End: 03-17-2023 ambulatory Lee Segovia Other [employer] Other Start: 03-17-2023 Telephone encounter Lee Segovia FP [facility] Start: 03-10-2023 End: 03-10-2023 ambulatory Lee Segovia Other [employer] Other Start: 03-10-2023 Telephone encounter Lee Segovia FP [facility] Start: 03-10-2023 Patient encounter procedure DO Lee Rajesh Work Phone: [facility] Physician Group- Start: 02-21-2023 End: 02-21-2023 ambulatory Lee Segovia Other [employer] Other Start: 02-21-2023 Telephone encounter Lee Segovia FP [facility] Start: 2023 End: 2023 ambulatory Lee Segovia Other [employer] Other Start: 2023 Office outpatient vi sit 25 minutes Lee Segovia [facility] Start: 2023 Telephone encounter Lee Rajesh FP [facility] Start: 01-12-2023 End: 01-12-2023 Office outpatient visit 10 minutes Ivania Velazquez POCKET CUTTER-VIDEO GAME CREATOR Work Phone: [facility] Comment on above: Biventricular ICD (i mplantable cardioverter-defibrillator) in place (Primary Dx); Ischemic cardiomyopathy; BMI 33.0-33.9,adult; Current every day smoker; Paroxysmal atrial fibrillation (CMS/HCC); Atherosclerosis of [place] coronary artery of [place] heart without angina pectoris Start: 01-07-2023 End: 01-07-2023 ambulatory Lee Segovia Other [employer] Other Start: 01-07-2023 Telephone encounter Lee Segovia [facility] Start: 01-05-2023 End: 01-05-2023 ambulatory Lee Segovia Other [employer] Other Start: 01-05-2023 Office outpatient vi sit 25 minutes Lee Segovia [facility] Start: 12-30-2022 End: 12-30-2022 ambulatory Delroy Mcleod Other [facility] [employer] Other Start: 12-30-2022 Office outpatient vi sit 15 minutes Delroy Mcleod [facility] Start: 12-07-2022 Chart Update Lee lira Work Phone: [facility] 250 DO Work Phone: Start: 11-30-2022 Office consultation new/estab patient 80 min Lee Segovia Work Phone: [facility] 320 DO Work Phone: Start: 11-30-2022 ambulatory Carmen Ha Facility:[id number] Start: 11-25-2022 Office outpatient vi sit 25 minutes Lee [facility] Work Phone: Start: 11-25-2022 Patient encounter procedure Lee Segovia Work Phone: [facility] 250 DO Work Phone: Start: 11-25-2022 ambulatory Ms. Ivania Calabrese Velazquez Facility: Start: 11-24-[address] Lee Segovia Facility:[id number] Start: 11-24-2022 End: 11-24-2022 ambulatory DO Lee Segovia Work Phone: [facility] Work Phone: Start: 11-24-2022 End: 11-24-2022 Patient encounter procedure DO eLe Segovia Work Phone: [facility]-Pacemaker Check Start: 11-19-2022 ambulatory Jesus Kalpesh Facilit [id number] Start: 11-19-2022 Telephone encounter Delroy MORTON G [facility] Start: 11-19-2022 End: 11-19-2022 Admission to same day surgery center DO Lee Segovia Work Phone: [facility]-Store Stock Associate Work Phone: Start: 11-19-2022 End: 11-19-2022 ambulatory DO Lee Segovia Work Phone: [facility] Work Phone: Start: 11-13-2022 End: 11-13-2022 Patient encounter procedure DO Lee Segovia Work Phone: [facility]-Pre-Surgical Testing Work Phone: Start: 11-04-2022 Telephone encounter Lee Segovia Work Phone: [facility] 250 DO Work Phone: Start: 11-03-2022 Chart Update Lee Styles l Work Phone: [facility] 250 DO Work Phone: Start: 10-28-2022 ambulatory JESUS POSEY Facilit y:[id number] Start: 10-14-2022 End: 10-14-2022 ambulatory Delroy Mcleod Other [employer] Other Start: 10-14-2022 Office outpatient vi sit 10 minutes Delroy Mcleod [facility] Start: 09-30-2022 End: 09-30-2022 ambulatory Delroy Mcleod Other [employer] Other Start: 09-30-2022 Office outpatient ne w 30 minutes Delroy Mcleod [facility] [place] [facility] Start: 09-30-2022 Telephone encounter Delroy MORTON [facility] Start: 09-17-2022 End: 09-17-2022 ambulatory Lee Segovia Other [employer] Other Start: 09-17-2022 Office outpatient vi sit 15 minutes Lee Ball [facility] Start: 09-08-2022 End: 09-08-2022 ambulatory Lee Rajesh Other [employer] Other Start: 09-08-2022 Office outpatient vi sit 25 minutes Lee Rajesh [facility] Start: 08-21-2022 End: 08-21-2022 Patient encounter procedure DO Lee Ball Work Phone: [facility]-Pacemaker Check Start: 08-21-2022 End: 08-21-2022 ambulatory DO Lee Ball Work Phone: [facility] Work Phone: Start: 08-05-2022 End: 08-05-2022 Patient encounter procedure DO Lee Rajesh Work Phone: [facility] Work Phone: Start: 08-03-2022 End: 08-03-2022 ambulatory Lee Segovia Other [employer] Other Start: 08-03-2022 Telephone encounter Lee Segovia [facility] Start: 07-30-2022 End: 07-30-2022 ambulatory Lee Rajesh Other [employer] Other Start: 07-30-2022 Telephone encounter Lee Segovia FP [facility] Start: 07-20-2022 End: 08-19-2022 ambulatory SHAIKH Shi MONTERO Facility: Start: 07-14-2022 Office outpatient vi sit 40 minutes Lee E Ball Work Phone: [facility] 250 DO Work Phone: Start: 07-14-2022 ambulatory Jesus Stone y: Start: 07-09-2022 End: 07-09-2022 ambulatory Lee Segovia Other [facility] [employer] Other Start: 07-09-2022 Telephone encounter Lee MORTON [facility] Start: 07-08-2022 Telephone encounter Lee Skelton [facility] Start: 07-08-2022 End: 07-09-[address] LEE SEGOVIA [facility] [employer] Other Start: 06-25-2022 Rx Renewal Lee Styles l Work Phone: [facility] [place] [place] 250 DO Work Phone: Start: 06-22-2022 End: 07-17-2022 ambulatory ZARCO Shi WINSTON Facility:H1 Start: 05-20-2022 End: 06-19-2022 ambulatory SHAIKH Shi MONTERO Facility:H1 Start: 05-18-2022 End: 05-18-2022 ambulatory Lee Segovia Other [employer] Other Start: 05-18-2022 Telephone encounter Lee MORTON [facility] Start: 05-13-2022 Patient encounter procedure Lee Segovia Work Phone: [facility] [place] 250 DO Work Phone: Start: 05-13-2022 ambulatory Ms. Ivania Velazquez Facility: Start: 05-06-2022 End: 05-06-2022 ambulatory Lee Segovia Other [employer] Other Start: 05-06-2022 Telephone encounter Lee MORTON [facility] Start: 05-01-2022 End: 05-01-2022 ambulatory Lee Segovia Other [facility] [employer] Other Start: 05-01-2022 Telephone encounter Lee MORTON [facility] Start: 04-22-2022 End: 05-20-2022 ambulatory SHAIKH Shi WINSTON Facility:H1 Start: 04-21-2022 Rx Renewal Lee lira Work Phone: [facility] 250 DO Work Phone: Start: 04-08-2022 End: 04-08-2022 ambulatory Lee Segovia Other [employer] Other Start: 04-08-2022 Office outpatient vi sit 25 minutes Lee Seg[facility] Start: 04-08-2022 Telephone encounter Lee Segovia [facility] Start: 04-03-2022 End: 04-04-[address] GINO DOW Facility:H1 Start: 04-02-2022 End: 04-02-2022 ambulatory Lee Segovia Other [employer] Other Start: 04-02-2022 Telephone encounter Lee MORTON [facility] Start: 03-31-2022 End: 04-01-[address] LEE SEGOVIA [facility] [employer] Other Start: 03-31-2022 Telephone encounter Lee Segovia [facility] Start: 03-30-2022 End: 03-30-2022 ambulatory Lee Segovia Other [employer] Other Start: 03-30-2022 Telephone encounter Lee Segovia SELENE [facility] Start: 02-19-2022 End: 03-22-2022 ambulatory ZARCO H WINSTON Facility:H1 Start: 02-04-2022 Chart Update Lee lira Work Phone: [facility] 250 DO Work Phone: Start: 02-04-2022 End: 02-04-2022 ambulatory DO Lee Rajesh Work Phone: [facility] Ctr Work Phone: Start: 02-04-2022 End: 02-04-2022 Patient encounter procedure DO Lee Segovia Work Phone: [facility]-Res[facility] Therapy Start: 01-20-2022 End: 02-18-2022 ambulatory SHAIKH Shi MONTERO Facility:H1 Start: 12-21-2021 End: 01-19-2022 ambulatory SHAIKH Shi MONTERO Facility:H1 Start: 12-19-2021 Patient encounter procedure Lee Segovia Work Phone: [facility] 250 DO Work Phone: Start: 11-20-2021 End: 11-20-2021 Patient encounter procedure DO Lee Segovia Work Phone: [facility]-Pacemaker Check Start: 11-20-2021 End: 12-20-2021 ambulatory [...] 09-23-2021 Rx Renewal Lee lira Work Phone: [facility] 250 DO Work Phone: Start: 09-09-2021 End: 09-10-2021 ambulatory YANA GORE Facility:H1 Start: 08-19-2021 Chart Update Lee lira Work Phone: [facility] 250 DO Work Phone: Start: 06-10-2021 Chart Update Lee lira Work Phone: [facility] 250 DO Work Phone: Start: 04-16-2021 Office outpatient vi sit 15 minutes Lee Segovia Work Phone: [facility] 250 DO Work Phone: Start: 02-28-2021 Rx Renewal Lee Styles l Work Phone: [facility] 250 DO Work Phone: Patient encounter status Katlin Segovia Work Phone: [facility] 250 DO Work Phone: Procedures Date Procedure Procedure Detail Performing Clinician Start: 11-28-2024 Hemoglobin glycosyla lily a1c Nany Okeefe Petznick DO Work Phone: Start: 08-28-2024 Hemoglobin glycosyla lily a1c Nany Okeefe Petznick DO Work Phone: Start: 07-18-2024 Plain chest X-ray Madi Segovia DO Work Phone: Start: 07-13-2024 Ecg routine ecg w/le ast 12 lds w/i&r Jesus S Kalpesh DO Work Phone: Start: 06-20-2024 Ecg routine ecg w/le ast 12 lds w/i&r Carmen Ha MD Work Phone: Start: 06-20-2024 Prgrmg eval implanta ble in person multi lead dfb Carmen Ha MD Work Phone: Start: 05-10-2024 Plain chest X-ray Madi Segovia DO Work Phone: Start: 05-01-2024 AUDITORY FUNCTION TESTS Lolis Mcnulty [facility] Work Phone: Start: 01-12-2024 Ecg routine ecg w/le ast 12 lds w/i&r Jesus S Kalpesh DO Work Phone: Start: 12-03-2023 Ecg routine ecg w/le ast 12 lds w/i&r Carmen Ha MD Work Phone: Start: 12-03-2023 Prgrmg eval implanta ble in person multi lead dfb Carmen Ha MD Work Phone: Start: 10-06-2023 Ecg routine ecg w/le ast 12 lds w/i&r Ivania Velazquez [employer] Work Phone: Start: 09-14-2023 Ecg routine ecg w/le ast 12 lds w/i&r Ivania Velazquez [employer] Work Phone: Start: 07-13-2023 XR CHEST 2 VIEWS JARAD Okeefe KALPESH Start: 07-13-2023 Radiologic exam ches t 2 views Jesus Posey DO Work Phone: Start: 07-13-2023 Ecg routine ecg w/le ast 12 lds w/i&r Jesus Posey DO Work Phone: Start: 05-21-2023 Ecg routine ecg w/le ast 12 lds w/i&r Carmen Ha MD Work Phone: Start: 05-21-2023 Radiologic exam ches t 2 views Carmen Ha MD Work Phone: Start: 05-21-2023 Prgrmg eval implanta ble in person multi lead dfb Holli Vazquez [employer] Work Phone: Start: 03-24-2023 Plain chest X-ray DO Be njamin Musikki Work Phone: Start: 12-30-2022 History of coronary artery bypass grafting S/P CABG x 4 Ivania Velazquez [employer] Work Phone: Start: 11-19-2022 CL LHC & COR Angio w/grafts DO Lee Musikki Work Phone: Start: 10-28-2022 Echocardiography Catrachita Rowell Musikki Work Phone: Start: 08-05-2022 Plain chest X-ray DO Be njamin Musikki Work Phone: Start: 07-08-[address] WILSON IN [employer] Comment on above: Performed By: #### B MP, TSH #### [facility] [address] [place] [address] Dr. Paola Bradshaw Start: 02-04-2022 Plain chest X-ray DO Be njamin Musikki Work Phone: Start: 10-08-[address] WILSON [place] [employer] Comment on above: Performed By: #### P [facility] #### [facility] [address] [place] [address] Dr. Paola Bradshaw Start: 09-05-2017 Lipid 1996 panel - S radha or Plasma Ivania Velazquez [employer] Work Phone: Start: 08-14-2016 Screening for malign ant neoplasm of colon Delroy Mcleod Other Start: 08-14-2016 Screening for malign ant neoplasm of prostate Delroy Mcleod Other Start: 02-05-2014 General examination of patient Delroy Mcleod Other Appendectomy Lee Segovia Work Phone: Brain Surgery Lee Styles soraya Work Phone: Cardiac catheterization Benj ton Segovia [...] Jesus Posey DO Work Phone: History of coronary artery bypass [...] DTaP/Tdap/Td Vaccines (2 - Td or Tdap) [facility] Start: 10-25-2026 Glaucoma screening Diabetes: Retinopathy Screening [facility] [employer] Start: 08-26-2025 Glaucoma screening Diabetes: Retinopathy Screening [facility] Start: 06-26-2025 End: 06-26-2025 Patient encounter procedure [facility] Start: 02-27-2025 Hemoglobin A1c measurement Diabetes: Hemoglobin A1C [facility] [employer] Start: 02-27-2025 End: 02-27-2025 Patient encounter procedure 02/27/2025 10:30 AM EST Office Visit [facility] [address] [place] [phone] Nany Howe DO [address] [place] [address] [facility] 230 Start: 01-12-2025 End: 07-13-2025 XR Chest 2 Views XR chest 2 views Imaging Routine Paroxysmal atrial fibrillation (Multi) Expected: 01/12/2025 (Approximate), Expires: 07/13/2025 [facility] Work Phone: Comment on above: Expected: 01/12/2025 (Approximate), Expi res: 07/13/2025 Start: 12-02-2024 End: 12-02-2024 Cardiac Device Check - In Clinic Cardiac Device Check - In Clinic Implantable Cardiac Device Routine Biventricular ICD (implantable cardioverter-defibrillato r) in place Expected: 12/02/2024 (Approximate), Expires: 12/02/2024 [facility] Service Area Work Phone: Comment on above: Expected: 12/02/2024 (Approximate), Expi res: 12/02/2024 Start: 11-28-2024 End: 11-28-2024 Patient encounter procedure 11/28/2024 2:00 PM EDT Office Visit [facility] [address] [place] [address] Nany Howe DO [address] [place] [address] [facility] 230 Start: 11-27-2024 End: 11-27-2024 Patient encounter procedure 11/27/2024 1:00 PM EDT Office Visit [facility] [address] [place] [phone] Marcella Olivo PA [address] [place] [address] [facility] Start: 11-20-2024 Influenza vaccination Influenza Vaccine (#1) [facility] Start: 09-01-2024 End: 12-02-2024 Cardiac Device Check - Remote Cardiac Device Check - Remote Implantable Cardiac Device Routine Biventricular ICD (implantable cardioverter-defibrillato r) in place Expected: 09/01/2024 (Approximate), Expires: 12/02/2024 [facility] Work Phone: Comment on above: Expected: 09/01/2024 (Approximate), Expi res: 12/02/2024 Start: 08-28-2024 End: 08-28-2024 Patient encounter procedure 08/28/2024 1:45 PM EDT Office Visit [facility] [address] [place] [phone] Nany Howe, DO [address] [place] [address] [facility] 230 Start: 08-26-2024 Glaucoma screening Diabetes: Retinopathy Screening [facility] Start: 08-23-2024 Echocardiography Echocardiogram [facility] Start: 08-02-2024 Medicare Annual Wellness Visit Medicare Annual Wellness Visit (AWV) [facility] Start: 07-13-2024 End: 07-13-2025 Aspartate aminotransferase [Enzymatic activity/volume] in Serum or Plasma by With P-5'-P Aspartate Aminotransferase Lab Routine Paroxysmal atrial fibrillation (Multi) Expected: 07/13/2024 (Approximate), Expires: 07/13/2025 [facility] Service Area Work Phone: Comment on above: Expected: 07/13/2024 (Approximate), Expi res: 07/13/2025 Start: 07-13-2024 End: 07-13-2025 Basic metabolic 2000 panel - Serum or Plasma Basic Metabolic Panel Lab Routine Paroxysmal atrial fibrillation (Multi) Expected: 07/13/2024 (Approximate), Expires: 07/13/2025 [facility] Work Phone: Comment on above: Expected: 07/13/2024 (Approximate), Expi res: 07/13/2025 Start: 07-13-2024 End: 07-13-2025 C reactive protein [Mass/volume] in Serum or Plasma by High sensitivity method C-Reactive Protein, High Sensitivity Lab Routine Ischemic cardiomyopathy Congestive heart failure, unspecified HF chronicity, unspecified heart failure type ASHD (arteriosclerotic heart disease) Expected: 07/13/2024, Expires: 07/13/2025 [facility] Work Phone: Comment on above: Expected: 07/13/2024, Expires: Start: 07-13-2024 End: 07-13-2025 Complete Pulmonary Function Test (Spirometry/DLCO/Lung Volumes) Complete Pulmonary Function Test (Spirometry/DLCO/Lung Volumes) PFT Routine Paroxysmal atrial fibrillation (Multi) Expected: 07/13/2024 (Approximate), Expires: 07/13/2025 [facility] Work Phone: Comment on above: Expected: 07/13/2024 (Approximate), Expi res: 07/13/2025 Start: 07-13-2024 End: 07-13-2025 Lipid 1996 panel - Serum or Plasma Lipid Panel Lab Routine Mixed hyperlipidemia Expected: 07/13/2024, Expires: 07/13/2025 [facility] Work Phone: Comment on above: Expected: 07/13/2024, Expires: Start: 07-13-2024 End: 07-13-2025 Natriuretic peptide B [Mass/volume] in Blood B-Type Natriuretic Peptide Lab Routine Ischemic cardiomyopathy Congestive heart failure, unspecified HF chronicity, unspecified heart failure type Expected: 07/13/2024, Expires: 07/13/2025 [facility] Work Phone: Comment on above: Expected: 07/13/2024, Expires: Start: 07-13-2024 End: 07-13-2025 Thyrotropin [Units/volume] in Serum or Plasma Thyroid Stimulating Hormone Lab Routine Paroxysmal atrial fibrillation (Multi) Expected: 07/13/2024 (Approximate), Expires: 07/13/2025 [facility] Work Phone: Comment on above: Expected: 07/13/2024 (Approximate), Expi res: 07/13/2025 Start: 07-13-2024 End: 07-13-2024 Patient encounter procedure 07/13/2024 10:50 AM EDT Office Visit [facility] [address] [facility] [address] [place] [address] Jesus Posey DO [address] [facility] [address] [place], [place] [phone] [facility] Start: 07-12-2024 End: 01-11-2025 Aspartate aminotransferase [Enzymatic activity/volume] in Serum or Plasma by With P-5'-P Aspartate Aminotransferase Lab Routine Paroxysmal atrial fibrillation (Multi) High risk medication use Expected: 07/12/2024 (Approximate), Expires: 01/11/2025 [facility] Service Area Work Phone: Comment on above: Expected: 07/12/2024 (Approximate), Expi res: 01/11/2025 Start: 07-12-2024 End: 01-11-2025 Basic metabolic 2000 panel - Serum or Plasma Basic Metabolic Panel Lab Routine Paroxysmal atrial fibrillation (Multi) High risk medication use Expected: 07/12/2024 (Approximate), Expires: 01/11/2025 [facility] Work Phone: Comment on above: Expected: 07/12/2024 (Approximate), Expi res: 01/11/2025 Start: 07-12-2024 End: 01-11-2025 Thyrotropin [Units/volume] in Serum or Plasma Thyroid Stimulating Hormone Lab Routine Paroxysmal atrial fibrillation (Multi) High risk medication use Expected: 07/12/2024 (Approximate), Expires: 01/11/2025 [facility] Work Phone: Comment on above: Expected: 07/12/2024 (Approximate), Expi res: 01/11/2025 Start: 06-28-2024 End: 06-28-2024 Patient encounter procedure 06/28/2024 10:30 AM EDT Office Visit [facility] [address] [place] [phone] [facility] Start: 06-26-2024 End: 06-26-2024 Patient encounter procedure 06/26/2024 3:15 PM EDT Office Visit [facility] [address] [place] [address] Nany Howe DO [address] [place] [address] Arrived [facility] 230 Comment on above: Arrived Start: 06-23-2024 End: 06-23-2024 Patient encounter procedure 06/23/2024 1:30 PM EDT Office Visit [facility] [address] [place] [address] Nany Howe, DO [address] [place] [address] [facility] 230 Start: 06-20-2024 End: 06-20-2024 Patient encounter procedure [facility] Start: 06-12-2024 End: 06-12-2024 Patient encounter procedure 06/12/2024 10:00 AM EDT Office Visit [facility] [address] [facility] [place] [address] [facility] Start: 06-08-2024 End: 06-08-2024 Patient encounter procedure [facility] Comment on above: Arrived Start: 06-01-2024 End: 12-02-2024 Cardiac Device Check - In Clinic Cardiac Device Check - In Clinic Implantable Cardiac Device Routine Biventricular ICD (implantable cardioverter-defibrillato r) in place Expected: 06/01/2024 (Approximate), Expires: 12/02/2024 [facility] Work Phone: Comment on above: Expected: 06/01/2024 (Approximate), Expi res: 12/02/2024 Start: 05-17-2024 Patient referral [facility] Work Phone: Start: 05-10-2024 [facility] Start: 05-01-2024 End: 05-01-2024 Clinical Support [facility] Comment on above: Arrived Start: 04-13-2024 End: 01-11-2025 Complete Pulmonary Function Test (Spirometry/DLCO/Lung Volumes) Complete Pulmonary Function Test (Spirometry/DLCO/Lung Volumes) PFT Routine Paroxysmal atrial fibrillation (Multi) High risk medication use Expected: 04/13/2024 (Approximate), Expires: 01/11/2025 [facility] Work Phone: Comment on above: Expected: 04/13/2024 (Approximate), Expi res: 01/11/2025 Start: 04-13-2024 End: 01-11-2025 XR Chest 2 Views XR chest 2 views Imaging Routine Paroxysmal atrial fibrillation (Multi) High risk medication use Expected: 04/13/2024, Expires: 01/11/2025 [facility] Work Phone: Comment on above: Expected: 04/13/2024, Expires: Start: 03-27-2024 End: 07-12-2024 Complete Pulmonary Function Test Pre/Post Bronchodialator (Spirometry Pre/Post/DLCO/Lung Volumes) Complete Pulmonary Function Test Pre/Post Bronchodialator (Spirometry Pre/Post/DLCO/Lung Volumes) PFT Routine Paroxysmal atrial fibrillation (Multi) High risk medication use Expected: 03/27/2024 (Approximate), Expires: 07/12/2024 [facility] Work Phone: Comment on above: Expected: 03/27/2024 (Approximate), Expi res: 07/12/2024 Start: 03-07-2024 End: 03-07-2024 Patient encounter procedure 03/07/2024 2:20 PM EST Office Visit [facility] [address] [facility] [address] [place] [address] Darrel Lucia MD [address] [facility] [address] [place] [address] [facility] Start: 03-06-2024 End: 03-06-2025 Creatinine [Mass/volume] in Serum or Plasma Creatinine, Serum Lab Routine Dizziness Expected: 03/06/2024 (Approximate), Expires: 03/06/2025 [facility] Comment on above: Expected: 03/06/2024 (Approximate), Expi res: 03/06/2025 Start: 03-06-2024 End: 03-06-2025 CT Head WO contrast CT head wo IV contrast Imaging STAT Stenosis of middle cerebral artery, 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 Dizziness Expected: 03/06/2024, Expires: 03/06/2025 [facility] Work Phone: Comment on above: Expected: 03/06/2024, Expires: Start: 03-06-2024 End: 03-06-2025 CTA Head vessels WO and W contrast IV CT angiogram head Imaging STAT Stenosis of carotid artery, unspecified laterality Stenosis of middle cerebral artery, 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 Expected: 03/06/2024 (Approximate), Expires: 03/06/2025 [facility] Comment on above: Expected: 03/06/2024 (Approximate), Expi res: 03/06/2025 Start: 03-06-2024 End: 03-06-2025 CTA Neck vessels WO and W contrast IV CT angiogram neck Imaging STAT Stenosis of carotid artery, unspecified laterality Dizziness Expected: 03/06/2024 (Approximate), Expires: 03/06/2025 [facility] Comment on above: Expected: 03/06/2024 (Approximate), Expi res: 03/06/2025 Start: 03-03-2024 End: 12-02-2024 Cardiac Device Check - Remote Cardiac Device Check - Remote Implantable Cardiac Device Routine Biventricular ICD (implantable cardioverter-defibrillato r) in place Expected: 03/03/2024 (Approximate), Expires: 12/02/2024 [facility] Work Phone: Comment on above: Expected: 03/03/2024 (Approximate), Expi res: 12/02/2024 Start: 01-12-2024 End: 07-12-2024 Aspartate aminotransferase [Enzymatic activity/volume] in Serum or Plasma by With P-5'-P Aspartate Aminotransferase Lab Routine Paroxysmal atrial fibrillation (Multi) High risk medication use Expected: 01/12/2024 (Approximate), Expires: 07/12/2024 [facility] Service Area Work Phone: Comment on above: Expected: 01/12/2024 (Approximate), Expi res: 07/12/2024 Start: 01-12-2024 End: 07-12-2024 Basic metabolic 2000 panel - Serum or Plasma Basic Metabolic Panel Lab Routine Paroxysmal atrial fibrillation (Multi) High risk medication use Expected: 01/12/2024 (Approximate), Expires: 07/12/2024 [facility] Work Phone: Comment on above: Expected: 01/12/2024 (Approximate), Expi res: 07/12/2024 Start: 01-12-2024 End: 07-12-2024 Thyrotropin [Units/volume] in Serum or Plasma Thyroid Stimulating Hormone Lab Routine Paroxysmal atrial fibrillation (Multi) High risk medication use Expected: 01/12/2024 (Approximate), Expires: 07/12/2024 [facility] Work Phone: Comment on above: Expected: 01/12/2024 (Approximate), Expi res: 07/12/2024 Start: 01-12-2024 End: 01-12-2024 Patient encounter procedure 01/12/2024 10:50 AM EDT Office Visit [facility] [address] [place] [address] Jesus Posey DO [address] [place] [address] [facility] Start: 01-12-2024 Subsequent hospital visit by physician 01/12/2024 Hospital Encounter [facility] [employer] [address] [place] [address] Paroxysmal atrial fibrillation (Multi); High risk medication use [facility] [employer] Comment on above: Paroxysmal atrial fibrillation (Multi); High risk medication use Start: 01-08-2024 Creatinine measurement Creatinine Level [facility] Start: 01-08-2024 Potassium measurement Potassium Level [facility] Start: 11-23-2023 End: 11-23-2023 Patient encounter procedure [facility] Start: 11-21-2023 End: 05-20-2024 Cardiac Device Check - In Clinic Cardiac Device Check - In Clinic Implantable Cardiac Device Routine Biventricular ICD (implantable cardioverter-defibrillato r) in place Expected: 11/21/2023 (Approximate), Expires: 05/20/2024 [facility] Work Phone: Comment on above: Expected: 11/21/2023 (Approximate), Expi res: 05/20/2024 Start: 11-21-2023 COVID-19 Vaccine () COVID-19 Vaccine () [facility] Start: 11-21-2023 COVID-19 Vaccine () COVID-19 Vaccine () [facility] Start: 11-21-2023 COVID-19 Vaccine () COVID-19 Vaccine () [facility] Start: 11-21-2023 Influenza vaccination Influenza Vaccine (#1) [facility] Start: 10-29-2023 Echocardiography Echocardiogram [facility] Start: 10-05-2023 End: 10-05-2023 Patient encounter procedure 10/05/2023 1:30 PM EDT Office Visit [facility] [address] [place] [address] Ivania Velazquez, P[employer] [address] [facility] [address] [place] [address] [facility] Start: 09-13-2023 End: 09-12-2024 Basic metabolic 2000 panel - Serum or Plasma Basic Metabolic Panel Lab Routine Ischemic cardiomyopathy Expected: 09/13/2023 (Approximate), Expires: 09/12/2024 [facility] Service Area Work Phone: Comment on above: Expected: 09/13/2023 (Approximate), Expi res: 09/12/2024 Start: 09-13-2023 End: 09-13-2023 Patient encounter procedure 09/13/2023 8:30 AM EDT [facility] [place] [address] [address] [place] [phone] Ivania Velazquez, POCK[employer] C[employer] [address] [facility] [address] [place], [place] [phone] [facility] Start: 08-24-2023 End: 08-24-2023 Patient encounter procedure 08/24/2023 12:00 PM EDT Appointment [facility] [address] [place] [phone] [facility] Start: 08-21-2023 End: 05-20-2025 US Heart Transthoracic Transthoracic Echo Complete Echocardiography Routine Shortness of breath Expected: 08/21/2023, Expires: 05/20/2025 [facility] Work Phone: Comment on above: Expected: 08/21/2023, Expires: Start: 07-13-2023 End: 07-13-2023 Patient encounter procedure 07/13/2023 2:10 PM EDT Office Visit [facility] [address] [place] [address] Jesus Posey DO [address] [place] [address] [facility] Start: 07-13-2023 End: 07-12-2024 Lipid 1996 panel - Serum or Plasma Lipid Panel Lab Routine 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 Mixed hyperlipidemia Expected: 07/13/2023 (Approximate), Expires: 07/12/2024 [facility] Work Phone: Comment on above: Expected: 07/13/2023 (Approximate), Expi res: 07/12/2024 Start: 05-21-2023 End: 05-20-2024 XR Chest 2 Views [facility] Service Area Work Phone: Comment on above: Expected: 05/21/2023, Expires: Once for 1 Occurrenc es starting 05/21/2023 until 05/21/2023 Start: 04-13-2023 End: 04-13-2023 Patient encounter procedure 04/13/2023 11:00 AM EST Office Visit [facility] [address] [facility] [address] [place] [address] Carmen Ha MD [address] [facility] [address], [address] [place] [address] [facility] Start: 11-30-2022 NPVRFRL, Provider: Carmen Ha, Status: Pen, Time: 10:20 AM NPVRFRL, Provider: Carmen Ha, Status: Pen, Time: 10:20 AM [place] Work Phone: Start: 11-25-2022 FUV, Provider: Ivania Neal, Status: Pen, Time: 11:30 AM FUV, Provider: Ivania Neal, Status: Pen, Time: 11:30 AM -[facility] 250 DO Work Phone: Start: 11-20-2022 COVID-19 Vaccine ( season) COVID-19 Vaccine () [facility] Start: 11-20-2022 Influenza vaccination Influenza Vaccine (#1) [facility] Start: 11-19-2022 End: 11-19-2022 [facility] Start: 11-17-2022 SURGNON, Provider: Jesus Posey, Status: Pen, Time: 1:00 PM SURGNONUH, Provider: Jesus Posey, Status: Pen, Time: 1:00 PM -[facility] 250 DO Work Phone: Start: 10-28-2022 ECHO, Provider: [place] [facility] 01,[id number], Status: Pen, Time: 10:45 AM ECHO, Provider: [place] [facility] 01,[id number], Status: Pen, Time: 10:45 AM -[facility] 250 DO Work Phone: Start: 07-14-2022 FUV, Provider: Jesus Posey, Status: Pen, Time: 9:20 AM FUV, Provider: Jesus Posey, Status: Pen, Time: 9:20 AM -[facility] 250 DO Work Phone: Start: 04-15-2022 FUV, Provider: Jesus Posey, Status: Pen, Time: 10:40 AM FUV, Provider: Jesus Posey, Status: Pen, Time: 10:40 AM -[facility] 250 DO Work Phone: Start: 2022 Abdominal aortic aneurysm screening Abdominal Aortic Aneurysm (AAA) Screening [facility] Start: 04-16-2021 FUV, Provider: Jesus Posey, Status: Tereso, Time: 9:15 AM FUV, Provider: Jesus Posey, Status: Tereso, Time: 9:15 AM -[facility] 250 DO Work Phone: Start: 10-17-2020 COVID-19 Vaccine (3 - Pfizer series) COVID-19 Vaccine (3 - Pfizer series) [facility] Start: 09-05-2018 Lipid panel Lipid Panel [facility] Start: 12-05-2017 Hemoglobin A1c measurement Diabetes: Hemoglobin A1C [facility] Start: 2017 RSV High Risk: (Elderly (60+) or Population) (1 - Risk 60-74 years 1-dose series) RSV High Risk: (Elderly (60+) or Population) (1 - Risk 60-74 years 1-dose series) [facility] Start: 2017 RSV patients and/or patients aged 60+ years (1 - 1-dose 60+ series) RSV patients and/or patients aged 60+ years (1 - 1-dose 60+ series) [facility] Start: 2007 Screening for malignant neoplasm of lung Lung Cancer Screening [facility] Start: 2007 Zoster Vaccines (1 of 2) Zoster Vaccines (1 of 2) [facility] Start: 02-02-1976 Hepatitis A Vaccines (1 of 2 - Risk 2-dose series) Hepatitis A Vaccines (1 of 2 - Risk 2-dose series) [facility] Start: 02-02-1976 Urine screening for protein Diabetes: Urine Protein Screening [facility] Start: 1975 Hepatitis C screening Hepatitis C Screening [facility] Start: 1967 Diabetic foot examination Diabetes: Foot Exam [facility] Start: 1967 Glaucoma screening Diabetes: Retinopathy Screening [facility] Start: 1957 Annual wellness visit Medicare Initial Physical (IPPE) [facility] Start: 1957 Medicare Annual Wellness (AWV) Medicare Annual Wellness (AWV) [facility] Start: 1957 Medicare Annual Wellness Visit Medicare Annual Wellness Visit (AWV) [facility] Start: 1957 Screening for malignant neoplasm of colon [facility] Start: 1957 Screening for malignant neoplasm of lung Lung Cancer Screening Shared Decision Making [facility] Start: 1957 Thyroid stimulating hormone measurement TSH Level [facility] Start: 1957 Urine screening for protein Diabetes: Urine Protein Screening [facility] Cardiac Device Check - In Clinic Cardiac Device Check - In Clinic Implantable Cardiac Device Routine Ischemic cardiomyopathy Cardiac pacemaker in situ 05/21/2023 11:[address] [facility] Work Phone: Cardiac Device Check - In Clinic Cardiac Device Check - In Clinic Implantable Cardiac Device Routine Biventricular ICD (implantable cardioverter-defibrillato r) in place 12/03/2023 2:[address] [facility] Work Phone: End: 12-20-2025 Cardiac Device Check - In Clinic Cardiac Device Check - In Clinic Implantable Cardiac Device Routine Biventricular ICD (implantable cardioverter-defibrillato r) in place 1 Occurrences starting 06/20/2024 until 12/20/[address] [facility] Work Phone: Comment on above: 1 Occurrences starting 06/20/2024 until 12/20/2025 Cardiac Device Check - In Clinic Cardiac Device Check - In Clinic Implantable Cardiac Device Routine Biventricular ICD (implantable cardioverter-defibrillato r) in place 06/20/2024 2:[address] [facility] Work Phone: End: 11-21-2023 Cardiac Device Check - Remote Cardiac Device Check - Remote Implantable Cardiac Device Routine Biventricular ICD (implantable cardioverter-defibrillato r) in place 52 Occurrences starting 05/21/2023 until 11/21/2023 [facility] Work Phone: Comment on above: 52 Occurrences starting 05/21/2023 until 11/21/2023 End: 12-20-2024 Cardiac Device Check - Remote Cardiac Device Check - Remote Implantable Cardiac Device Routine Biventricular ICD (implantable cardioverter-defibrillato r) in place 52 Occurrences starting 06/20/2024 until 12/20/2024 [facility] Work Phone: Comment on above: 52 Occurrences starting 06/20/2024 until 12/20/2024 Comprehensive metabo lic 2000 panel - Serum or Plasma [facility] ECG 12 Lead ECG 12 Lead ECG Routine High risk medication use 09/14/2023 9:38 AM EDT [facility] Work Phone: ECG 12 Lead ECG 12 Lead ECG Routine High risk medication use 10/06/2023 8:37 AM EDT [facility] Service Area Work Phone: Glucose measurement estimated from glycated hemoglobin [facility] Hemoglobin A1c/Hemoglobin.total in Blood [facility] Microalbumin [Mass/volume] in Urine [facility] Patient Education Heart failure and atrial fibrillation Quitting smoking [facility] Work Phone: Patient referral [facility] Work Phone: End: 08-24-2023 US Heart Transthoracic [facility] Service Area Work Phone: Comment on above: Once for 1 Occurrences starting 08/24/19 24 until 08/24/2023 [facility] Immunizations Immunization Date Immunization Notes Care Provider Feliz barrett 12-04-2024 influenza, high dose seasonal, preservative-free Lee Ball DO Work Phone: [facility] 2024 influenza, high dose seasonal, preservative-free [facility] 2024 influenza virus vaccine, unspecified formulation Nany Howe DO Work Phone: [facility] 12-21-2023 influenza, seasonal, injectable Jesus Posey DO Work Phone: [facility] 01-05-2023 influenza virus vaccine, unspecified formulation DO Lee Ball Work Phone: [facility] 01-05-2023 influenza, high dose seasonal, preservative-free Lee Ball Other [employer] Other 07-07-2022 influenza, high dose seasonal, preservative-free Lee Ball Other [facility] [employer] Other 03-10-2022 influenza virus vaccine, unspecified formulation DO Lee Segovia Work Phone: [facility] 03-10-2022 influenza, high dose seasonal, preservative-free Lee Segovia Other [facility] [employer] Other 02-27-2022 pneumococcal polysaccharide vaccine, 23 valent Lee Segovia Work Phone: [facility] [employer] 250 DO Work Phone: 02-20-2022 Fluad Quadrivalent 0 .5 ML Intramuscular Prefilled Syringe Lee Segovia Work Phone: [facility] [employer] 250 DO Work Phone: 02-20-2022 influenza virus vaccine, split virus (incl. purified surface antigen) Delroy Shani Other [facility] [employer] Other 02-20-2022 influenza virus vaccine, unspecified formulation Ivania Velazquez POCKET CUTTER-VIDEO GAME CREATOR Work Phone: [facility] 12-30-2020 influenza virus vaccine, split virus (incl. purified surface antigen) Delroy Shani Other [facility] [employer] Other 12-30-2020 influenza virus vaccine, unspecified formulation DO Lee Segovia Work Phone: [facility] 12-29-2020 influenza, injectabl e, quadrivalent, preservative free DO Lee Segovia Work Phone: [facility] 12-29-2020 pneumococcal polysaccharide vaccine, 23 valent DO Lee Segovia Work Phone: [facility] 08-22-2020 Pfizer-BioNTech COVID-19 Vacc 30 MCG/0.3ML Intramuscular Suspension Lee Segovia Work Phone: [facility] 08-03-2020 Pfizer-BioNTech COVID-19 Vacc 30 MCG/0.3ML Intramuscular Suspension Lee Segovia Work Phone: [facility] 01-16-2020 influenza virus vaccine, split virus (incl. purified surface antigen) Delroy Mcleod Other [facility] [employer] Other 01-16-2020 influenza virus vaccine, unspecified formulation DO Lee Segovia Work Phone: [facility] 03-22-2019 influenza virus vaccine, unspecified formulation [facility] Work Phone: 03-22-2019 influenza, seasonal, injectable Ivania Velazquez POCKET CUTTER-VIDEO GAME CREATOR Work Phone: [facility] Work Phone: 03-22-2018 influenza virus vaccine, unspecified formulation Lee Segovia Work Phone: [facility] 250 DO Work Phone: 03-22-2018 pneumococcal polysaccharide vaccine, 23 valent Lee Rowell Musikki Work Phone: [place] [address] DO Work Phone: 12-20-2017 influenza virus vaccine, unspecified formulation Lee Segovia Work Phone: [facility] 250 DO Work Phone: 12-20-2017 pneumococcal conjuga te vaccine, 13 valent Lee Rowell Musikki Work Phone: [facility] 250 DO Work Phone: 05-31-2017 diphtheria, tetanus toxoids and acellular pertussis vaccine, unspecified formulation Delroy Mcleod Other [facility] 05-31-2017 tetanus and diphther ia toxoids, adsorbed, preservative free, for adult use (5 Lf of tetanus toxoid and 2 Lf of diphtheria toxoid) DO Lee Segovia Work Phone: [facility] 05-31-2017 tetanus toxoid, redu rashida diphtheria toxoid, and acellular pertussis vaccine, adsorbed Lee Segovia Work Phone: [facility] 250 DO Work Phone: 12-21-2016 influenza virus vaccine, unspecified formulation Lee Segovia Work Phone: [facility] 250 DO Work Phone: 12-20-2016 Flu Vaccine - Adult DO Madi alicia Ball Work Phone: [facility] 12-20-2016 influenza, seasonal, injectable DO Lee Segovia Work Phone: [facility] 12-09-2016 influenza, seasonal, injectable Lee Segovia Work Phone: [facility] [employer] DO Work Phone: 12-09-2016 tetanus and diphther ia toxoids, adsorbed, preservative free, for adult use (5 Lf of tetanus toxoid and 2 Lf of diphtheria toxoid) Delroy Mcleod Other [facility] 01-07-2015 influenza, seasonal, injectable, preservative free Lee Segovia Work Phone: [facility] [employer] DO Work Phone: 01-07-2015 pneumococcal conjuga te vaccine, 13 valent Lee Segovia Work Phone: [facility] [employer] DO Work Phone: 01-07-2015 tetanus and diphther ia toxoids, adsorbed, preservative free, for adult use (5 Lf of tetanus toxoid and 2 Lf of diphtheria toxoid) Delroy Mcleod Other [facility] 12-20-2014 influenza virus vaccine, unspecified formulation Lee Segovia Work Phone: [facility] [employer] DO Work Phone: 12-22-2013 influenza virus vaccine, unspecified formulation Lee Segovia Work Phone: [facility] 250 DO Work Phone: 01-23-2013 influenza, seasonal, injectable Lee [facility]ell [facility]esh [facility] Work Phone: 12-02-2011 tetanus and diphther ia toxoids, adsorbed, preservative free, for adult use (5 Lf of tetanus toxoid and 2 Lf of diphtheria toxoid) Delroy Shani Other [facility] 03-22-2011 influenza virus vaccine, unspecified formulation Ivania Velazquez POCKET CUTTER-VIDEO GAME CREATOR Work Phone: [facility] Work Phone: 03-22-2010 influenza virus vaccine, unspecified formulation Ivania Velazquez POCKET CUTTER-VIDEO GAME CREATOR Work Phone: [facility] Work Phone: 03-22-2009 influenza virus vaccine, unspecified formulation Ivania Velazquez POCKET CUTTER-VIDEO GAME CREATOR Work Phone: [facility] Work Phone: 03-22-2008 influenza virus vaccine, unspecified formulation Ivania Velazquez POCKET CUTTER-VIDEO GAME CREATOR Work Phone: [facility] Work Phone: influenza virus vaccine, unspecified formulation [facility] Work Phone: Comment on above: 2008 2009 2010 2011 Payers Date Payer Category Payer Self-pay [id number] 2023 Medicare [id number] 2022 Medicare [id number] 2015 Medicare (Managed Care) 1.2. [id number] 1959 Medicare [id number] 1957 Unknown [id number] 2.16.840.1.993049.3.579.2 .593 1957 Unknown [id number] 2.16.840.1.610729.3.579.2 .593 1957 Unknown [id number] 2.16.840.1.738499.3.579.2 .593 1957 Unknown [id number] 2.16.840.1.885935.3.579.2 .593 1957 Unknown [id number] 2.16.840.1.105823.3.579.2 .593 1957 Unknown [id number] 2.16.840.1.427412.3.579.2 .593 1957 Unknown [id number] 2.16.840.1.908719.3.579.2 .593 1957 Unknown [id number] 2.16.840.1.019363.3.579.2 .593 1957 Unknown [id number] 2.16.840.1.773306.3.579.2 .593 1957 Unknown [id number] 2.16.840.1.170381.3.579.2 .593 1957 Unknown [id number] 2.16.840.1.186629.3.579.2 .593 1957 Unknown [id number] 2.16.840.1.349522.3.579.2 .593 1957 Unknown [id number] 2.16.840.1.580717.3.579.2 .593 1957 Unknown [id number] 2.16.840.1.921341.3.579.2 .593 1957 Unknown [id number] 2.16.840.1.298457.3.579.2 .593 1957 Unknown [id number] 2.16.840.1.003821.3.579.2 .593 1957 Unknown [id number] 2.16.840.1.723847.3.579.2 .593 1957 Unknown [id number] 2.16.840.1.463254.3.579.2 .593 1957 Unknown [id number] 2.16.840.1.087024.3.579.2 .1068 1957 Unknown [id number] 2.16.840.1.602472.3.579.2 .356 1957 Unknown [id number] 2.16.840.1.693018.3.579.2 .356 1957 Unknown [id number] 2.16.840.1.167061.3.579.2 .356 1957 Unknown [id number] 2.16.840.1.315388.3.579.2 .356 1957 Unknown [id number] 2.16.840.1.191139.3.579.2 .356 1957 Unknown [id number] 2.16.840.1.832985.3.579.2 .356 1957 Unknown [id number] 2.16.840.1.502969.3.579.2 .356 1957 Unknown [id number] 2.16.840.1.191919.3.579.2 .1245 1957 Unknown [id number] 2.16.840.1.013259.3.579.2 .1246 1957 Unknown [id number] 2.16.840.1.822989.3.579.2 .1246 1957 Unknown [id number] 2.16.840.1.371966.3.579.2 .1246 1957 Unknown [id number] 2.16.840.1.552660.3.579.2 .1244 1957 Unknown [id number] 2.16.840.1.096182.3.579.2 .1243 1957 Unknown [id number] 2.16.840.1.523226.3.579.2 .1243 1957 Unknown [id number] 2.16.840.1.157040.3.579.2 .1243 1957 Unknown [id number] 2.16.840.1.852772.3.579.2 .1243 1957 Unknown [id number] 2.16.840.1.987271.3.579.2 .1243 1957 Unknown [id number] 2.16.840.1.220908.3.579.2 .1258 1957 Unknown [id number] 2.16.840.1.660034.3.579.2 .1258 1957 Unknown [id number] 2.16.840.1.783761.3.579.2 .1258 1957 Unknown [id number] 2.16.840.1.147760.3.579.2 .1258 1957 Unknown [id number] 2.16.840.1.695573.3.579.2 .1258 1957 Unknown [id number] 2.16.840.1.328528.3.579.2 .1258 1957 Unknown [id number] 2.16.840.1.698947.3.579.2 .1258 1957 Unknown [id number] 2.16.840.1.663158.3.579.2 .1258 1957 Unknown [id number] 2.16.840.1.280306.3.579.2 .1259 Medicare Medicare [id number] Unknown [employer]ICAL [employer] [place] [employer] Unknown [id number] 2.16.840.1.860737.3.579.2 .531 Unknown [id number] 2.16.840.1.585905.3.579.2 .531 Social History Date Type Detail Facility Start: 01-07-2023 End: 05-23-2024 Current smoker Current smoker [facility] Comment on above: 3-4 CUPS OF COFFEE A DAY, 2 CANS OF SODA; once weekly; 3 cigarettes per day ; almost a pack daily; Start: 06-16-2021 End: 11-15-2023 Tobacco smoking status NHIS Smoker (finding) [facility] Start: 1955 Sex Assigned At Male F [facility] Start: 01-12-2023 End: 05-23-2024 Sex Assigned At [facility] Start: 01-07-2023 End: 08-08-2024 Tobacco smoking status NHIS Smokes tobacco daily [facility] History of tobacco use Cigarette Smoker [facility] Work Phone: Start: 01-07-2023 End: 11-28-2024 Tobacco use and exposure Smokeless tobacco non-user [facility] Work Phone: Start: 01-12-2023 End: 11-28-2024 Alcohol intake Current drinker of alcohol (finding) [facility] Work Phone: Start: 01-09-2023 Gender identity Identifies as male gender (finding) [facility] Work Phone: Start: 01-02-2023 End: 07-13-2024 Exposure to SARS-CoV-2 (event) Not sure [facility] Start: 05-21-2023 Alcohol Comment occasssional [facility] Work Phone: Start: 2024 End: 07-19-2024 Sex Male (finding) [facility] Start: 09-01-2023 End: 03-07-2024 Alcoholic beverage intake Ex-drinker (finding) [facility] Start: 08-31-2023 Alcohol Comment caffeine 2-3 c ups per day [facility] Start: 1955 Sex assigned at Not on file [facility] How often do you nee d to have someone help you when you read instructions, pamphlets, or other written material from your doctor or pharmacy [SILS] Sometimes [facility] Do you belong to any clubs or organizations such as restorationism groups, unions, fraternal or athletic groups, or school groups? Yes [facility] Are you now , , , , never or living with a partner? [facility] How often to you hav e a drink containing alcohol? 2-4 times a month [facility] How many standard dr inks containing alcohol do you have on a typical day? 5 or 6 [facility] How often do you hav e 6 or more drinks on 1 occasion? Less than monthly [facility] Do you feel stress - tense, restless, nervous, or anxious, or unable to sleep at night because your mind is troubled all the time - these days [OSQ] Not at all [facility] (I/We) worried wheth er (my/our) food would run out before (I/we) got money to buy more. Never true [facility] In the past 12 month s, was there a time when you were not able to pay the mortgage or rent on time? No [facility] How often do you nee d to have someone help you when you read instructions, pamphlets, or other written material from your doctor or pharmacy [SILS] Sometimes [facility] Start: 08-28-2024 Tobacco Comment Pipe tabacco i n a cigarette form [facility] Start: 11-28-2024 Tobacco Comment Pipe tobacco i n a cigarette form [facility] Medical Equipment Procedure Code Equipment Code Equipment Origin al Text Equipment Identifier Dates Insertion, pacemaker LEAD ISOFLEX OPTIMUS FDA Start: 06-17-2018 Insertion, pacemaker LEAD PACEMAKER TENDRIL STS FDA Start: 06-17-2018 Insertion, pacemaker PACEMAKER ASSURITY MRI RF FDA Start: 06-17-2018 Insertion, pacemaker LEAD ISOFLEX OPTIMUS FDA Start: 06-17-2018 Insertion, pacemaker LEAD PACEMAKER TENDRIL STS FDA Start: 06-17-2018 Insertion, pacemaker PACEMAKER ASSURITY MRI RF DR FDA Start: 06-17-2018 Insertion, pacemaker LEAD ISOFLEX OPTIMUS FDA Start: 06-17-2018 Insertion, pacemaker LEAD PACEMAKER TENDRIL STS FDA Start: 06-17-2018 Insertion, pacemaker PACEMAKER ASSURITY MRI RF DR FDA Start: 06-17-2018 Insertion, pacemaker LEAD ISOFLEX [...] PACEMAKER ASSURITY MRI RF FDA Start: 06-17-2018 [id number] Start: 08-03-2022 End: 07-13-2023 Defibrillator, Blaster Helper-D, [place] Hf - [id number] Start: 01-07-2023 Slitter, Univers al Ii - [id number] Start: 01-07-2023 Durata T, Active Single Coil, Df4, 65cm - [id number] Start: 01-07-2023 Catheter, Attain Command, Mdl 6250v, 45cm - [id number] Start: 01-07-2023 Pacing Lead, Irwin rtet 86cm, Model [id number] Lv, Multi Site, Ventricular - [id number] Start: 01-07-2023 Pen Needle, Diab etic (Bd Ultra-Fine Micro Pen Needle) 32 gauge x 1/4 needle Start: 11-23-2023 Pen Wilson 32 g x 6 mm Start: 05-01-2023 Pen Needle, Diab etic (Bd Ultra-Fine Micro Pen Needle) 32 gauge x 1/4 needle Start: 11-23-2023 End: 11-23-2023 Pen Needle, Diab etic (Bd Ultra-Fine Micro Pen Needle) 32 gauge x 1/4 needle Start: 11-23-2023 Pen Wilson 32 g x 6 mm Start: 05-01-2023 Pen Needle, Diab etic (Bd Ultra-Fine Micro Pen Needle) 32 gauge x 1/4 needle Start: 11-23-2023 End: 11-23-2023 Pen Needle, Diab etic (Bd Ultra-Fine Micro Pen Needle) 32 gauge x 1/4 needle Start: 11-23-2023 Pen Wilson 32 g x 6 mm Start: 05-01-2023 Pen Needle, Diab etic (Bd Ultra-Fine Micro Pen Needle) 32 gauge x 1/4 needle Start: 11-23-2023 End: 11-23-2023 Pen Needle, Diab etic (Bd Ultra-Fine Micro Pen Needle) 32 gauge x 1/4 needle Start: 05-16-2024 Pen Needle, Diab etic (Bd Ultra-Fine Micro Pen Needle) 32 gauge x 1/4 needle Start: 11-23-2023 End: 11-23-2023 Pen Needle, Diab etic (Bd Ultra-Fine Micro Pen Needle) 32 gauge x 1/4 needle Start: 11-23-2023 End: 05-16-2024 Pen Wilson 32 g x 6 mm Start: 05-01-2023 End: 05-16-2024 Pen Needle, Diab etic (Bd Ultra-Fine Micro Pen Needle) 32 gauge x 1/4 needle Start: 05-16-2024 Pen Needle, Diab etic (Bd Ultra-Fine Micro Pen Needle) 32 gauge x 1/4 needle Start: 11-23-2023 End: 11-23-2023 Pen Needle, Diab etic (Bd Ultra-Fine Micro Pen Needle) 32 gauge x 1/4 needle Start: 11-23-2023 End: 05-16-2024 Pen Wilson 32 g x 6 mm Start: 05-01-2023 End: 05-16-2024 Pen Needle, Diab etic (Bd Ultra-Fine Micro Pen Needle) 32 gauge x 1/4 needle Start: 05-16-2024 Pen Needle, Diab etic (Bd Ultra-Fine Micro Pen Needle) 32 gauge x 1/4 needle Start: 11-23-2023 End: 11-23-2023 Pen Needle, Diab etic (Bd Ultra-Fine Micro Pen Needle) 32 gauge x 1/4 needle Start: 11-23-2023 End: 05-16-2024 Pen Wilson 32 g x 6 mm Start: 05-01-2023 End: 05-16-2024 Pen Needle, Diab etic (Bd Ultra-Fine Micro Pen Needle) 32 gauge x 1/4 needle Start: 05-16-2024 Pen Needle, Diab etic (Bd Ultra-Fine Micro Pen Needle) 32 gauge x 1/4 needle Start: 11-23-2023 End: 11-23-2023 Pen Needle, Diab etic (Bd Ultra-Fine Micro Pen Needle) 32 gauge x 1/4 needle Start: 11-23-2023 End: 05-16-2024 Pen Wilson 32 g x 6 mm Start: 05-01-2023 End: 05-16-2024 Functional Status Date Assessment Result Facility 11-28-2024 Patient Health Quest ionnaire 2 item (PHQ-2) [Reported] [facility] 08-28-2024 Patient Health Quest ionnaire 2 item (PHQ-2) [Reported] [facility] Clinical Notes 03-30-2022 to 12-13-2024 Nany Howe DO - 11/28/2024 2:32 PM Tae Howe DO - 11/28/2024 2:00 PM EDT Note Date & Type Note Facility 12-13-2024 Note HNO ID: [id number] Author: JERZY URBANO MS Service: ? Author Type: Genetic Counselor Type: Progress Notes Filed: 12/13/2024 09:47 Note Text: [facility] Department of Medical Genetics Consultation Note Genetic Counselor: Jerzy Urbano MS, [place] [facility] [place] Patient: Lesley Quintero Patient Name and confirmed at initiation of visit. This visit was conducted via [employer]. I have communicated my name and active licensure. The patient's identity and physical location were verified at the time of this visit. Either the patient or their legal tax representative has been informed of the risks and benefits of -- and alternatives to -- treatment through a remote evaluation and consents to proceed with the evaluation remotely. HIGH LEVEL SUMMARY: The patient's family history is potentially suggestive of a hereditary cancer syndrome. The patient provided informed consent for the Multi-Cancer panel through [facility]. Results are expected in 2 weeks from the time of sample collection. Patient plans to have blood drawn on site today. IDENTIFICATION AND CHIEF COMPLAINT: Lee E Ball, DO requested a consultation for genetic counseling and risk assessment for Lesley Quintero, a 69 year old male, for discussion of the patient's family history of cancer. Lesley presents to clinic today to discuss the possibility of a genetic predisposition to cancer, and to further clarify their risks, as well as their family members' risks for cancer. HISTORY OF PRESENT ILLNESS: Lesley Quintero is a 69 year old male with no personal history of cancer. PAST MEDICAL HISTORY Diagnosis Date Carotid art occ w/o infarc 02/27/2011 Chronic obstructive pulmonary disease (COPD) (HCC) Diabetes (HCC) Dyslipidemia HTN (hypertension) 06/23/2011 Myocardial infarct, old 2009 had a single stent placed. Obstructive sleep apnea Stroke (HCC) PAST SURGICAL HISTORY Procedure Laterality Date APPENDECTOMY HX PAST SURGICAL HISTORY OF bilateral salivary glands removed PAST SURGICAL HISTORY OF right knee surgery for meniscla tears PAST SURGICAL HISTORY OF tubes palcement in both ears TONSILLECTOMY HX FAMILY HISTORY: We obtained a detailed family history. Significant diagnoses are listed below: GENETIC COUNSELING RISK ASSESSMENT, DISCUSSION, AND SUGGESTED FOLLOW UP: The patient's family history of cancer is potentially suggestive of a hereditary cancer syndrome. The patient meets NCCN testing criteria since his mother had a personal history of pancreatic cancer. We discussed that the most informative person to undergo genetic testing is a family member with a history of cancer. However, an affected relative is unavailable for genetic testing. Therefore, we reviewed the limitations of interpreting test results for an unaffected individual. We discussed the following: Approximately 5-10% of cancer is due to an underlying hereditary cancer syndrome Inheritance of hereditary cancer syndromes and possible familial implications of genetic testing Different types of results Positive: a mutation was identified associated with a hereditary cancer syndrome indicating a potentially higher risk to develop one or more types of cancer Negative: no mutations were identified indicating a low likelihood of a hereditary cancer syndrome in the patient Uncertain: a variant of uncertain significance (VUS) was identified, however, there is insufficient data available to determine the clinical impact of the variant Rare possibility of unexpected findings Genetic testing may help the patient's care providers tailor medical management. Individuals with positive genetic testing may consider changes to their cancer surveillance or management such as increased cancer screening, prophylactic surgeries, or tailored treatment options. Individuals with negative or nondiagnostic testing should discuss the appropriate cancer screening with their providers based on their personal and family history. Based on this assessment of the patient's family and personal history, genetic testing is recommended. The patient was offered Multi-Cancer panel through [facility]. After considering the risks, benefits, and limitations, the patient chose to pursue and provided informed consent for the following testing: Multi-Cancer panel through [facility]. The Multi-Cancer Panel includes the following 70 genes: AIP, ALK, APC, MARY ANN, AXIN2, BAP1, BARD1, BLM, BMPR1A, BRCA1, BRCA2, BRIP1, CDC73, CDH1, CDK4, CDKN1B, CDKN2A, CHEK2, CTNNA1, DICER1, EGFR, EPCAM, FH, FLCN, GREM1, HOXB13, KIT, LZTR1, MAX, MBD4, MEN1, MET, MITF, MLH1, MSH2, MSH3, MSH6, MUTYH, NF1, NF2, NTHL1, PALB2, PDGFRA, PMS2, POLD1, POLE, POT1, HWEQH5T, PTCH1, PTEN, RAD51C, RAD51D, RB1, RET, SDHA, SDHAF2, SDHB, SDHC, SDHD, SMAD4, SMARCA4, SMARCB1, SMARCE1, STK11, SUFU, SHHG407, TP53, TSC1, TSC2, VHL The Multi-Cancer panel looks at genes associated with cancers of the br (more content not included)... [facility] 11-28-2024 History of Present illness Narrative Associated Problem(s): Type 2 diabetes mellitus with other circulatory complications (HCC) During the appointment today all pertinent labs, [...] if they have any problems or questions. Lesley Quintero is doing very well and encouraged on this. , The patient is wearing their cgm on a daily basis and making decisions in regards to adjusting insulin daily as well for at least the last 60 days , Instructions given today include: Hypoglycemia management and Insulin instructions. Will decrease insulin to help prevent low bg. Images from the original note were not included. Lesley Quintero is a 69 y.o. male presents with chief complaint of Diabetes HPI: Diabetes Mellitus Follow-up: Lesley Quintero is here for follow-up evaluation of diabetes mellitus. The initial diagnosis of diabetes was made in around 2020 Complications include: cerebrovascular disease, cardiovascular disease Hx diabetes medications not tolerated: Metformin- diarrhea He has been checking his blood glucose with the [employer] marita 2 CGM-LINKED- on a daily basis. Bg running smooth and in range throughout the day. Last A1c: 8.2 on (08/28/24) Eye exam: 10/25/2024 Current concerns include: Asking if the location of the cgm on his arm is important. Has been paying better attention to what he eats. Stopped drinking sugar drinks after his first appt here Bg levels: improving Diet: decreased portion sizes. Drinks: milk, water, gatorade zero, zero sugar mountain dew, black coffee Exercise: none, occasional golf Hypoglycemia: none SUBJECTIVE: PROBLEM LIST SOCIAL ALLERGIES: Patient Active Problem List Diagnosis Carotid artery stenosis Seizure (HCC) Stroke (HCC) Stenosis of right carotid artery Central vestibular vertigo Degenerative lumbar disc Cerebrovascular accident (CVA) due to occlusion of right carotid artery (HCC) Occlusion and stenosis of other cerebral arteries Paresthesia Seizure disorder (HCC) Type 2 diabetes mellitus with other circulatory complications (HCC) Social History Tobacco Use Smoking status: Every Day Current packs/day: 1.00 Average packs/day: 1 pack/day for 50.0 years (50.0 ttl pk-yrs) Types: Cigarettes Smokeless tobacco: Never Tobacco comments: Pipe tobacco in a cigarette form Substance Use Topics Alcohol use: Yes Alcohol/week: 9.0 - 10.0 standard drinks of alcohol Types: 6 Cans of beer, 3 - 4 Standard drinks or equivalent per week Comment: caffeine 2-3 cups per day Drug use: Never Allergies Allergen Reactions Jenny Inhibitors Other Synopsis [facility] 11/28/2024 Antidiabetic medications Insulin Glargine 30 Units Daily SC -Discontinued (Dose adjustm) Insulin Glargine 27 Units Daily SC Semaglutide 0.5 mg Weekly SC (2 MG/3ML SOPN) Labs [facility] [place] HEMOGLOBIN A1C/HEMOGLOBIN.TOTAL:MFR:PT:BLD: QN: 7.6 Outpatient prescription Medication marked as long-term The ASCVD Risk score (Ángela MONTANO, et al., 2019) failed to calculate for the following reasons: Risk score cannot be calculated because patient has a medical history suggesting prior/existing ASCVD REVIEW OF SYMPTOMS: Review of Systems Constitutional: Negative for appetite change, fatigue and unexpected weight change. Eyes: Negative for visual disturbance. Respiratory: Negative for cough, shortness of breath and wheezing. Cardiovascular: Negative for chest pain, palpitations and leg swelling. Neurological: Negative for numbness. Endocrine: Negative for polydipsia, polyphagia and polyuria. OBJECTIVE: 11/28/2024 2:05 PM 08/28/2024 1:36 PM 06/26/2024 3:04 PM Vitals BMI 33.23 kg/m2 33.23 kg/m2 33.23 kg/m2 Systolic 112 114 104 Diastolic 64 62 62 Heart Rate 62 63 64 Temp 98.3 F 98.1 F 97.7 F Height (in) 5' 9 5' 9 5' 9 Weight (lb) 225 225 225 Visit Report Report Report Report Physical Exam Constitutional: General: He is not in acute distress. Appearance: Normal appearance. Cardiovascular: Rate and Rhythm: Normal rate and regular rhythm. Heart sounds: No murmur heard. No friction rub. No gallop. Pulmonary: Breath sounds: Normal breath sounds. No wheezing, rhonchi or rales. Musculoskeletal: General: No swelling. Neurological: Mental Status: He is alert. ASSESSMENT AND PLAN: Problem List Items Addressed This Visit Type 2 diabetes mellitus with other circulatory complications (HCC) During the appointment today all pertinent labs, [...] if they have any problems or questions. Lesley Skelton Ingrid is doing very well and encouraged on this. , The patient is wearing their cgm on a daily basis and making decisions in regards to adjusting insulin daily as well for at least the last 60 days , Instructions given today include: Hypoglycemia management and Insulin instructions. Will decrease insulin to help prevent low bg. Relevant Orders POCT glycosylated hemoglobin (Hb A1C) docked device (Completed) Follow up in about 3 months (around 02/27/2025) for Recheck. Patient's Medications New Prescriptions No medications on file Previous Medications AMIODARONE (PACERONE) 200 MG TABLET Take 200 mg by mouth in the morning. ASPIRIN 81 MG EC TABLET Daily at bedtime ATORVASTATIN (LIPITOR) 80 MG TABLET Daily at bedtime CONTINUOUS GLUCOSE SENSOR (FREESTYLE MARITA 3 PLUS SENSOR) MISC 1 each See administration instructions FAMOTIDINE (PEPCID) 20 MG TABLET Take 20 mg by mouth in the morning and 20 mg in the evening. FUROSEMIDE (LASIX) 20 MG TABLET Take 20 mg by mouth Daily ISOSORBIDE MONONITRATE ER (IMDUR) 30 MG 24 HR TABLET Take 30 mg by mouth Daily Do not crush or chew. LEVETIRACETAM (KEPPRA) 750 MG TABLET Take 1 tablet (750 mg) by mouth in the morning and 1 tablet (750 mg) before bedtime. LOSARTAN (COZAAR) 25 MG TABLET Take 25 mg by mouth in the morning. METOPROLOL SUCCINATE XL (TOPROL-XL) 50 MG 24 HR TABLET Take 1 tablet by mouth Daily MIRTAZAPINE (REMERON) 30 MG TABLET Daily at bedtime ROPINIROLE (REQUIP) 0.5 MG TABLET Take 0.5 mg by mouth at bedtime SEMAGLUTIDE,0.25 OR 0.5MG/DOS, (OZEMPIC, 0.25 OR 0.5 MG/DOSE,) 2 MG/3ML SOLUTION PEN-INJECTOR Inject 0.5 mg under the skin 1 (one) time per week WARFARIN (COUMADIN) 2 MG TABLET Take 2 mg by mouth See administration instructions Modified Medications Modified Medication Previous Medication INSULIN GLARGINE (LANTUS) 100 UNIT/ML INJECTION insulin glargine (Lantus) 100 UNIT/ML injection Inject 27 Units under the skin Daily Inject 30 Units under the skin Daily Discontinued Medications No medications on file I have reviewed and reconciled the history and medication list with the patient today. documented in this encounter [facility] 11-09-2024 Evaluation note Diagnosis Onset Date Resolution Conjunctivitis noneactive October 11:03am Intertriginous dermatitis associated with moisture noneactive November 09 11:03am Anemia acute November 10:50am Atrial fibrillation acute 2024 10:50am Elevated cholesterol acute Nov 10:50am Hypertension acute December 042024 10:50am IBS (irritable bowel syndrome) acute December 04, 2024 10:50am Nicotine dependence, cigarettes, uncomplicated acute December 04, 2024 10:50am Type 2 diabetes mellitus with diabetic peripheral angiopathy without gangre acute December 04, 2024 10:50am Type 2 diabetes mellitus with hyperglycemia acute November 10:50am ASHD (arteriosclerotic heart disease) chronic December 04, 2024 10:50am [facility] Work Phone: [phone]) 572-502206-09-2025 History of Present illness Narrative* Nany Howe DO - 08/28/2024 3:20 PM EDTAssociated Problem(s): Type 2 diabetes mellitus with other circulatory complications During the appointment today all pertinent labs, imaging, health maintenance, and glucose readings were reviewed. Encouraged to check blood glucose throughout the day with some fasting and some PP readings. They are to bring their glucose meter/cgm in to all appointments. All of the patients questions, treatment options, and current care plan and goals were discussed. Acopy of this along with pertinent instructions were given to the patient at the end of the appointment. The patient voices understanding of all of this and is to call in between appointments if they have any problems or questions. Lesley Skelton Ingrid is doing very well and encouraged on this. , Will stay on current medications. , The patient is wearing their cgm on a daily basis and making decisions in regards to adjusting insulin daily as well for at least the last 60 days , Instructions given today include: Insulin instructions and Dietary education * Nany Howe DO - 08/28/2024 1:45 PM EDT Images from the original note were not included. Lesley Quintero is a 69 y.o. male presents with chief complaint of Diabetes HPI: Diabetes Mellitus Follow-up: Lesley Quintero is here for follow-up evaluation of diabetes mellitus. The initial diagnosis of diabetes was made in around 2020 Complications include: cerebrovascular disease, cardiovascular Hx diabetes medications not tolerated: Metformin- diarrhea He has been checking his blood glucose with the freestyle marita 2 CGM-LINKED- on a daily basis. Bg running 140-150's throughout the day Last A1c: 12.9 (05/10/24) Eye exam: 2023 guille bass Current concerns include: [facility]. He paid oop $191 for a month Bg levels: improving Diet: decreased portion sizes. Drinks: milk, water, gatorade zero, zero sugar mountain dew, black coffee Exercise: none Hypoglycemia: none SUBJECTIVE: PROBLEM LIST SOCIAL ALLERGIES: Patient Active Problem List Diagnosis Carotid artery stenosis Seizure (CMS/HCC) Stroke (CMS/HCC) Stenosis of right carotid artery Central vestibular vertigo Degenerative lumbar disc Cerebrovascular accident (CVA) due to occlusion of right carotid artery (CMS/HCC) Occlusion and stenosis of other cerebral arteries Paresthesia Seizure disorder (CMS/HCC) Type 2 diabetes mellitus with other circulatory complications Social History Tobacco Use Smoking status: Every Day Current packs/day: 1.00 Average packs/day: 1 pack/day for 50.0 years (50.0 ttl pk-yrs) Types: Cigarettes Smokeless tobacco: Never Tobacco comments: Pipe tabacco in a cigarette form Substance Use Topics Alcohol use: Yes Alcohol/week: 9.0 - 10.0 standard drinks of alcohol Types: 6 Cans of beer, 3 - 4 Standard drinks or equivalent per week Comment: caffeine 2-3 cups per day Drug use: Never Allergies Allergen Reactions Jenny Inhibitors Other Synopsis [facility] 08/28/2024 13:49 06/26/2024 00:00 Antidiabetic medications Insulin Glargine 40 Units Daily SC -Discontinued (Dose adjustm) Insulin Glargine 35 Units Daily SC Patient taking differently: 30 Units Daily as of 08/28/2024 1:50 PM 35 Units Daily SC Semaglutide 0.5 mg Weekly SC (2 MG/3ML SOPN) 0.5 mg Weekly SC (2 MG/3ML SOPN) Labs [facility] [place] [place] HEMOGLOBIN A1C/HEMOGLOBIN.TOTAL:MFR:PT:BLD:QN: 8.2 Outpatient prescription Medication marked as long-term Patient taking a medication differently The ASCVD Risk score (Ángela MONTANO, et al., 2019) failed to calculate for the following reasons: Risk score cannot be calculated because patient has a medical history suggesting prior/existing ASCVD REVIEW OF SYMPTOMS: Review of Systems Constitutional: Negative for appetite change, fatigue and unexpected weight change. Eyes: Negative for visual disturbance. Respiratory: Negative for cough, shortness of breath and wheezing. Cardiovascular: Negative for chest pain, palpitations and leg swelling. Neurological: Negative for numbness. Endocrine: Negative for polydipsia, polyphagia and polyuria. OBJECTIVE: 08/28/2024 1:36 PM 06/26/2024 3:04 PM 06/08/2024 12:37 PM Vitals BMI 33.23 kg/m2 33.23 kg/m2 33.97 kg/m2 Systolic 114 104 90 Diastolic 62 62 60 Heart Rate 63 64 Temp 98.1 F 97.7 F Resp 16 Height (in) 5' 9 5' 9 5' 9 Weight (lb) 225 225 230 Visit Report Report Report Report Physical Exam Constitutional: General: He is not in acute distress. Appearance: Normal appearance. Cardiovascular: Rate and Rhythm: Normal rate and regular rhythm. Heart sounds: No murmur heard. No friction rub. No gallop. Pulmonary: Breath sounds: Normal breath sounds. No wheezing, rhonchi or rales. Musculoskeletal: General: No swelling. Neurological: Mental Status: He is alert. ASSESSMENT AND PLAN: Problem List Items Addressed This Visit Type 2 diabetes mellitus with other circulatory complications During the appointment today all pertinent labs, imaging, health maintenance, and glucose readings were reviewed. Encouraged to check blood glucose throughout the day with some fasting and some PP readings. They are to bring their glucose meter/cgm in to all appointments. All of the patients questions, treatment options, and current care plan and goals were discussed. Acopy of this along with pertinent instructions were given to the patient at the end of the appointment. The patient voices understanding of all of this and is to call in between appointments if they have any problems or questions. Lesley Quintero is doing very well and encouraged on this. , Will stay on current medications. , The patient is wearing their cgm on a daily basis and making decisions in regards to adjusting insulin daily as well for at least the last 60 days , Instructions given today include: Insulin instructions and Dietary education Relevant Orders POCT glycosylated hemoglobin (Hb A1C) docked device (Completed) Follow up in about 3 months (around 11/28/2024) for Recheck. Patient's Medications New Prescriptions No medications on file Previous Medications AMIODARONE (PACERONE) 200 MG TABLET Take 200 mg by mouth in the morning. ASPIRIN 81 MG EC TABLET Daily at bedtime ATORVASTATIN (LIPITOR) 80 MG TABLET Daily at bedtime CONTINUOUS GLUCOSE SENSOR (FREESTYLE MARITA 3 PLUS SENSOR) MISC 1 each See administration instructions FAMOTIDINE (PEPCID) 20 MG TABLET Take 20 mg by mouth in the morning and 20 mg in the evening. FUROSEMIDE (LASIX) 20 MG TABLET Take 20 mg by mouth Daily INSULIN GLARGINE (LANTUS) 100 UNIT/ML INJECTION Inject 35 Units under the skin Daily ISOSORBIDE MONONITRATE ER (IMDUR) 30 MG 24 HR TABLET Take 30 mg by mouth Daily Do not crush or chew. LEVETIRACETAM (KEPPRA) 750 MG TABLET Take 1 tablet (750 mg) by mouth in the morning and 1 tablet (750 mg) before bedtime. LOSARTAN (COZAAR) 25 MG TABLET Take 25 mg by mouth in the morning. METOPROLOL SUCCINATE XL (TOPROL-XL) 50 MG 24 HR TABLET Take 1 tablet by mouth Daily MIRTAZAPINE (REMERON) 30 MG TABLET Daily at bedtime ROPINIROLE (REQUIP) 0.5 MG TABLET Take 0.5 mg by mouth at bedtime SEMAGLUTIDE,0.25 OR 0.5MG/DOS, (OZEMPIC, 0.25 OR 0.5 MG/DOSE,) 2 MG/3ML SOLUTION PEN-INJECTOR Inject 0.5 mg under the skin 1 (one) time per week WARFARIN (COUMADIN) 2 MG TABLET Take 2 mg by mouth See administration instructions Modified Medications No medications on file Discontinued Medications CONTINUOUS GLUCOSE SENSOR (FREESTYLE MARITA 2 SENSOR) MISC USE DIRECTED to test BLOOD SUGAR 4-6 times DAILY I have reviewed and reconciled the history and medication list with the patient today. documented in this encounterS[facility] [id number] [place] [address] [place] [address] Pulmonary Function Signed Patient: Lesley Quintero MR#: [id number] : 1955 Date of Service:0 07/18/24 Age/Sex: 69 / M ADM Date: 5 Loc: RT Room: Type: [facility] Attending Dr: Franck Posey DO Copies to: DO Mark Hawkins MD W Scott Sheldon, DO~ Pulmonary Function Test Complete pulmonary function studies were performed on July 18, 2024 for patientwith diagnosis of long-term high risk medication use. Spirometry was acceptableand reproducible with adequate durationsof exhalation. Please refer to the pulmonary function test report for the raw data. SPIROMETRY: Spirometry was performed with bronchodilator studies and reveals an FEV1 to FVC ratio of 81% with an FEV1 of 2.73 liters (84% predicted) and a forced vital capacity of 3.38 liters (78% predicted). After administration of bronchodilators there was a nearly significant 11% improvement in forced vital capacity with no change in duration of exhalation with no significant change in FEV1 and decline in the mid/terminal expiratory flows. LUNG VOLUMES: Measurement of static lung volumes was performed by plethysmography and indicates a total lung capacity of 6.45 liters (93% predicted) with a residual volume which was 121% of predictedand a residual volume to total lung capacity ratio of 48%. DIFFUSION CAPACITY: Single breath diffusion capacity is 14.5 mL/mmHg/min (55% predicted) and is 111% predicted after adjustment for alveolar volume. SUMMARY: These pulmonary function studies do not clearly indicate evidence of a significant ventilatory obstructive defect with an equivocal bronchodilator response noted. There is no clearance of restriction with minimal to mild air trapping out of character for the lack of significant obstruction. Diffusion capacity is moderately reduced but normalizes when adjusted for alveolar volume suggesting the possibility of ventilation/perfusion mismatch and contribute to the decrease in single breathdiffusion capacity. Compared to prior studies of May 10, 2024, there has been little change inthe expiratory flow with a decrease in the total lung capacity of 120 mL which is inconsequential and a decrease in the single breath diffusion capacity of 17%. However, when comparedto prior studiesdating as far back as July 2022, there has been variability in the single breath diffusion capacity but no clear evidence to suggest a continued trend of declining diffusion capacity. I do not believean adjustmentof medical therapy is clearly warranted on the basis of these studies. Clinical correlation is recommended. Transcribed By: LETI 07/18/241728 Dictated By: Mark Campa MD 07/18/241728 Signed By: 07/18/24 1733 [facility]04-24-2025 History of Present illness Narrative * Jesus Posey, DO - 07/13/2024 10:50 AM EDT Chief Complaint Patient presents with Follow-up 6 months for ischemic cardiomyopathy Subjective Lesley Quintero is a 69 y.o. male 69-year-old gentleman returns for 6-month cardiovascular follow-up for ongoing cardiovascular surveillance for severe ischemic cardiomyopathy, with AICD/BiV. He is otherwise doing well he has had no cardiovascular complaints or symptoms or angina, hospitalizations, heart failure or nitrate usage ordefibrillator discharges. He has known ASHD, remote DE, history of multivessel CABG x4 in 2018, sleep apnea, paroxysmal atrial fibrillation, currently on high risk medical therapies including amiodarone and warfarin, diabetesmellitus, ongoing tobacco use approximately a pack a day, COPD and pacemaker due to sick sinus syndrome, and history of stroke, history of paroxysmal atrial fibrillation.. He had worsening LV dysfunction this past year as documented by nurse practitioner and electrophysiology hence referred to EP for upgrade from pacemaker to AICD with biventricular pacemaker. He continues to follows routinely with Dr. Ha, her last note is reviewed. Today's ECG reveals AV sequential pacing with PVCs. Recommendations: Obtain chemistry, BMP, lipid and high-sensitivity CRP profiles, smoking cessation counseling x 5 minutes performed with patient, follow-up with nurse practitioner in 6 months myself in 1 year, alternating with electrophysiology and nurse practitioner Review of Systems Neurological: Positive for dizziness. All other systems reviewed and are negative. Vitals: 07/13/24 1058 BP: 90/52 BP Location: Right arm Patient Position: Sitting Pulse: 74 Weight: 102 kg (224 lb) Height: 1.778 m (5' 10 ) Objective Physical Exam Constitutional: Appearance: Normal appearance. [...] Thought content normal. Judgment: Judgment normal. Allergies Patient has no known allergies. Current Medications Current Outpatient Medications Medication Instructions amiodarone (PACERONE) 200 mg, oral, Daily aspirin 81 mg EC tablet 1 tablet, Daily atorvastatin (LIPITOR) 80 mg, oral, Nightly BD Ultra-Fine Micro Pen Needle 32 gauge x 1/4 needle famotidine (Pepcid) 20 mg tablet 1 tablet, 2 times daily Ioxus Marita 2 Sensor kit USE DIRECTED to check BLOOD SUGAR 4-6 times DAILY furosemide (LASIX) 20 mg, oral, Daily hyoscyamine 0.125 mg SL tablet insulin glargine (Lantus U-100 Insulin) 100 unit/mL injection Every 24 hours isosorbide mononitrate ER (IMDUR) 30 mg, oral, Daily, Do not crush or chew. levETIRAcetam XR (Keppra XR) 750 mg tablet extended release 24 hr 24 hr tablet 1 tablet, 2 times daily losartan (COZAAR) 25 mg, oral, Daily metoprolol succinate XL (TOPROL-XL) 50 mg, oral, Daily mirtazapine (REMERON) 30 mg, Nightly nitroglycerin (NITROSTAT) 0.4 mg, Every 5 min PRN Ozempic 0.5 mg, Once Weekly rOPINIRole (REQUIP) 0.5 mg, Nightly warfarin (COUMADIN) 2 mg, oral, See admin instructions, As directed by the [facility] coumadin clinic. Ok to resume at previous dose on 01/09/23 Assessment/Plan 1. 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 2. Ischemic cardiomyopathy Follow Up In Cardiology 3. Status post angioplasty 4. S/P CABG x 4 5. Paroxysmal atrial fibrillation (Multi) 6. Biventricular ICD (implantable cardioverter-defibrillator) in place 7. High risk medication use 8. Current every day smoker 9. Other specified diabetes mellitus without complication, with long-term current use of insulin 10. Congestive heart failure, unspecified HF chronicity, unspecified heart failure type 11. BMI 32.0-32.9,adult 12. Mixed hyperlipidemia Scribe Attestation By signing my name below, ITena LPN Scribsorin attest that this documentation has been prepared [...] exam, discussion and plan. [facility] Work Phone: [phone] Instructions* Patient Instructions* Tena Buckley LPN - 07/13/2024 10:50 AM EDT Please bring all medicines, vitamins, and herbal supplements with you when you come to the office. Prescriptions will not be filled unless you are compliant with your follow up appointments or have a follow up appointment scheduled as per instruction of your physician. Refills should be requested at the time of your visit. Fall Prevention Education Given BMI was above normal measurement. Current weight: 102 kg (224 lb) Weight change since last visit (-) denotes wt loss -6 lbs Weight loss needed to achieve BMI 25: 50.1 Lbs Weight loss needed to achieve BMI 30: 15.4 Lbs Provided instructions on dietary changes Provided instructions on exercise. documented in this encounterM[facility] Work Phone: 1(449) 823-623104-07-2025 History of Present illness Narrative* Nany Howe DO - 06/26/2024 3:34 PM EDTAssociated Problem(s): Type 2 diabetes mellitus with other circulatory complications During the appointment today all pertinent labs, imaging, health maintenance, and glucose readings were reviewed. Encouraged to check blood glucose throughout the day with some fasting and some PP readings. They are to bring their glucose meter/cgm in to all appointments. All of the patients questions, treatment options, and current care plan and goals were discussed. Acopy of this along with pertinent instructions were given to the patient at the end of the appointment. The patient voices understanding of all of this and is to call in between appointments if they have any problems or questions. Lesley Quintero is doing very well and encouraged on this. , Instructions given today include: Insulin instructions. Will decrease insulin to help prevent low bg. He is to continue with the dietarychanges he made as he is doing very well. * Nany Howe DO - 06/26/2024 3:15 PM EDT Images from the original note were not included. Lesley Quintero is a 69 y.o. male presents with chief complaint of Diabetes HPI: Diabetes Mellitus Follow-up: Lesley Quintero is here for follow-up evaluation of diabetes mellitus. The initial diagnosis of diabetes was made in around 2020 Complications include: cerebrovascular disease, cardiovascular Hx diabetes medications not tolerated: Metformin- diarrhea He has been checking his blood glucose with the freestyle marita 2 CGM-LINKED- on a daily basis. Bg running smooth and in range throughout the day in the 110-140 range. Last A1c: 12.9 (05/10/24) Eye exam: 2023 guille bass Current concerns include: Last ov was on 05/23/2024 - ozempic is working well. Lost 7 lbs since his last visit Bg levels: improving Diet: decreased portion sizes. Drinks: milk, water, gatorade zero, zero sugar mountain dew, black coffee Exercise: none Hypoglycemia: none SUBJECTIVE: PROBLEM LIST SOCIAL ALLERGIES: Patient Active Problem List Diagnosis Carotid artery stenosis Seizure (CMS/HCC) Stroke (CMS/HCC) Stenosis of right carotid artery Central vestibular vertigo Degenerative lumbar disc Cerebrovascular accident (CVA) due to occlusion of right carotid artery (CMS/HCC) Occlusion and stenosis of other cerebral arteries Paresthesia Seizure disorder (CMS/HCC) Type 2 diabetes mellitus with other circulatory complications Social History Tobacco Use Smoking status: Every Day Current packs/day: 1.00 Average packs/day: 1 pack/day for 50.0 years (50.0 ttl pk-yrs) Types: Cigarettes Substance Use Topics Alcohol use: Yes Alcohol/week: 9.0 - 10.0 standard drinks of alcohol Types: 6 Cans of beer, 3 - 4 Standard drinks or equivalent per week Comment: caffeine 2-3 cups per day Drug use: Never Allergies Allergen Reactions Jenny Inhibitors Other Synopsis SmartLink 06/26/2024 00:00 05/23/2024 Antidiabetic medications Insulin Detemir Inject under the skin at bedtime ssc (100 UNIT/ML SOPN) -Discontinued Insulin Glargine Inject under the skin at bedtime 25 units bid (100 UNIT/ML SOLN) -Discontinued (Dose adjustm) Insulin Glargine 40 Units Daily SC-Discontinued (Dose adjustm) 40 Units Daily SC Insulin Glargine 35 Units Daily SC Semaglutide 0.5 mg Weekly SC (2 MG/3ML SOPN) 0.5 mg Weekly SC (2 MG/3ML SOPN) Outpatient prescription Medication marked as long-term Patient-reported The ASCVD Risk score (Ángela MONTANO, et al., 2019) failed to calculate for the following reasons: Risk score cannot be calculated because patient has a medical history suggesting prior/existing ASCVD REVIEW OF SYMPTOMS: Review of Systems Constitutional: Negative for appetite change, fatigue and unexpected weight change. Eyes: Negative for visual disturbance. Respiratory: Negative for cough, shortness of breath and wheezing. Cardiovascular: Negative for chest pain, palpitations and leg swelling. Neurological: Negative for numbness. Endocrine: Negative for polydipsia, polyphagia and polyuria. OBJECTIVE: 06/26/2024 3:04 PM 06/08/2024 12:37 PM 05/23/2024 2:52 PM Vitals BMI 33.23 kg/m2 33.97 kg/m2 34.26 kg/m2 Systolic 104 90 100 Diastolic 62 60 62 Heart Rate 64 76 Temp 97.7 F 98.1 F Resp 16 Height (in) 5' 9 5' 9 5' 9 Weight (lb) 225 230 232 Visit Report Report Report Report Physical Exam Constitutional: General: He is not in acute distress. Appearance: Normal appearance. Cardiovascular: Rate and Rhythm: Normal rate and regular rhythm. Heart sounds: No murmur heard. No friction rub. No gallop. Pulmonary: Breath sounds: Normal breath sounds. No wheezing, rhonchi or rales. Musculoskeletal: General: No swelling. Neurological: Mental Status: He is alert. ASSESSMENT AND PLAN: Problem List Items Addressed This Visit Type 2 diabetes mellitus with other circulatory complications - Primary During the appointment today all pertinent labs, imaging, health maintenance, and glucose readings were reviewed. Encouraged to check blood glucose throughout the day with some fasting and some PP readings. They are to bring their glucose meter/cgm in to all appointments. All of the patients questions, treatment options, and current care plan and goals were discussed. Acopy of this along with pertinent instructions were given to the patient at the end of the appointment. The patient voices understanding of all of this and is to call in between appointments if they have any problems or questions. Lesley Quintero is doing very well and encouraged on this. , Instructions given today include: Insulin instructions. Will decrease insulin to help prevent low bg. He is to continue with the dietarychanges he made as he is doing very well. Follow up in about 2 months (around 08/26/2024) for Recheck. Patient's Medications New Prescriptions No medications on file Previous Medications AMIODARONE (PACERONE) 200 MG TABLET Take 200 mg by mouth in the morning. ASPIRIN 81 MG EC TABLET Daily at bedtime ATORVASTATIN (LIPITOR) 80 MG TABLET Daily at bedtime CONTINUOUS GLUCOSE SENSOR (FREESTYLE MARITA 2 SENSOR) [facility] [place]ED to test BLOOD SUGAR 4-6 times DAILY FAMOTIDINE (PEPCID) 20 MG TABLET Take 20 mg by mouth in the morning and 20 mg in the evening. FUROSEMIDE (LASIX) 20 MG TABLET Take 20 mg by mouth Daily ISOSORBIDE MONONITRATE ER (IMDUR) 30 MG 24 HR TABLET Take 30 mg by mouth Daily Do not crush or chew. LEVETIRACETAM (KEPPRA) 750 MG TABLET Take 1 tablet (750 mg) by mouth in the morning and 1 tablet (750 mg) before bedtime. LOSARTAN (COZAAR) 25 MG TABLET Take 25 mg by mouth in the morning. METOPROLOL SUCCINATE XL (TOPROL-XL) 50 MG 24 HR TABLET Take 1 tablet by mouth Daily MIRTAZAPINE (REMERON) 30 MG TABLET Daily at bedtime ROPINIROLE (REQUIP) 0.5 MG TABLET Take 0.5 mg by mouth at bedtime SEMAGLUTIDE,0.25 OR 0.5MG/DOS, (OZEMPIC, 0.25 OR 0.5 MG/DOSE,) 2 MG/3ML SOLUTION PEN-INJECTOR Inject 0.5 mg under the skin 1 (one) time per week WARFARIN (COUMADIN) 2 MG TABLET Take 2 mg by mouth See administration instructions Modified Medications Modified Medication Previous Medication INSULIN GLARGINE (LANTUS) 100 UNIT/ML INJECTION insulin glargine (Lantus) 100 UNIT/ML injection Inject 35 Units under the skin Daily Inject 40 Units under the skin Daily Discontinued Medications No medications on file I have reviewed and reconciled the history and medication list with the patient today. documented in this encounterSainte Genevieve [facility] [id number] History of Present illness Narrative* Carmen Ha MD - 06/20/2024 3:20 PM EDT Chief Complaint: Follow-up (Patient here for a 6 month follow up with device check ) History Of Present Illness: Kenton Quintero is a 69 y.o. male presenting with follow-up. He is accompanied by his . Patient denies any arrhythmia symptoms of palpitation, lightheadedness, near syncope, or syncope. He has amiodarone screening followed at [facility]. Last Recorded Vitals: Vitals: 06/20/24 1507 BP: 100/60 BP Location: Left arm Patient Position: Sitting Pulse: 76 Weight: 104 kg (230 lb) Height: 1.753 m (5' 9 ) Past Medical History: See List Past Surgical History: See List Social History: He reports that he has been smoking cigarettes. He has a 45 pack-year smoking history. He has neverused smokeless tobacco. He reports current alcohol use of about 2.0 standard drinks of alcohol per week. He reports that he does not use drugs. Family History: Family History Problem Relation Name Age of Onset Bone cancer Mother [place] Cancer Mother Ashlee Heart attack Father Manolo Heart attack Sister Ovarian cancer Sister Cancer Sister Pancreatic cancer Brother Armando Cancer Brother Armando Allergies: Patient has no known allergies. Outpatient Medications: Current Outpatient Medications Medication Instructions amiodarone (PACERONE) 200 mg, oral, Daily aspirin 81 mg EC tablet 1 tablet, Daily atorvastatin (LIPITOR) 80 mg, oral, Nightly BD Ultra-Fine Micro Pen Needle 32 gauge x 1/4 needle famotidine (Pepcid) 20 mg tablet 1 tablet, 2 times daily FreeStyle Marita 2 Sensor kit USE DIRECTED to check BLOOD SUGAR 4-6 times DAILY furosemide (LASIX) 20 mg, oral, Daily hyoscyamine 0.125 mg SL tablet insulin lispro protamin-lispro (HumaLOG Mix 50-50 KwikPen) 100 unit/mL (50-50) injection 2 times daily (morning and late afternoon) isosorbide mononitrate ER (IMDUR) 30 mg, oral, Daily, Do not crush or chew. Levemir FlexPen 14 Units, Nightly levETIRAcetam XR (Keppra XR) 750 mg tablet extended release 24 hr 24 hr tablet 1 tablet, 2 times daily losartan (COZAAR) 25 mg, oral, Daily metoprolol succinate XL (TOPROL-XL) 50 mg, oral, Daily mirtazapine (REMERON) 30 mg, Nightly nitroglycerin (NITROSTAT) 0.4 mg, Every 5 min PRN Ozempic 0.5 mg, Once Weekly rOPINIRole (REQUIP) 0.5 mg, Nightly warfarin (COUMADIN) 2 mg, oral, See admin instructions, As directed by the [facility] coumadin clinic. Ok to resume at previous dose on 01/09/23 Review of Systems Cardiovascular: Negative for chest pain, dyspnea on exertion and palpitations. All other systems reviewed and are negative. Physical Exam: Constitutional: General: Awake. Appearance: Normal and healthy appearance. Well-developed and not in distress. Obese. Neck: Vascular: No JVR. JVD normal. Pulmonary: [...] Last Cardiology Tests: ECG: ECG 12 Lead 01/12/2024 Today. Appropriate pacing. Normal axis. Corrected QT interval 450 ms. First- degree AV block. Deviceevaluation today. Saint Vj CD HFA 500. ICD on.. Alert, subsequent visit. Stable device over 4 years. 95% atrial pacing. 94% biventricular duration. Less than 1% A-fib. 0 VT Echo: Transthoracic Echo Complete 08/24/2023 Lab review: I have personally reviewed the laboratory result(s) see above Assessment/Plan Diagnoses and all orders for this visit: Biventricular ICD (implantable cardioverter-defibrillator) in place High risk medication use 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 Congestive heart failure, unspecified HF chronicity, unspecified heart failure type H/O sick sinus syndrome Mixed hyperlipidemia Primary hypertension Ischemic cardiomyopathy LBBB (left bundle branch block) Paroxysmal atrial fibrillation (Multi) RBBB S/P CABG x 4 BMI 33.0-33.9,adult Encounter for medication review and counseling Encounter to discuss treatment options Current every day smoker Mechanical complication of implantable cardioverter-defibrillator (ICD) Herlinda Salazar RN I, , personally performed the services described in the documentation as scribed by the nurse in my presence, and confirm it is both accurate and complete. Ischemic cardiomyopathy. NYHA III C heart failure. LBBB with QRS 170 ms. Chronotropic incompetence.Sinus node dysfunction. s/p dual chamber pacemaker and subsequent upgrade to biventricular defibrillator. Empirically adjusted sensor in the past. No indication to change sensor at this time Saint Vj CD HFA 500 Q biventricular defibrillator. Device on field alert. Mechanical complicationdevice, subsequent visit. Previously adjusted device: AV VV optimization. Discussed standard care for device checks. Ordered device checks. Alternate remote checks with device clinic at [facility]. 1 annual [place] device clinic check with EP office visit Ventricular tachycardia. On amiodarone. High risk medication. Follows with [place] office for amiodarone screening test Orthostatic dizziness by history. Improved symptoms after adjusting medication timing and staggering doses.. Coronary artery disease. Chronic. Stable. Medical management. Reviewed meds. Continue meds. Refillsdiscussed. Paroxysmal atrial fibrillation. Reviewed meds. Continue meds. Bridges with Lovenox for procedures. Other issues of neuropathy, tobacco use, COPD, obstructive sleep apnea, history of CVA dementia, hypertension, hyperlipidemia, diabetes, and overweight noted AHA recommendations for exercise, diet, and behavioral modification reviewed with pt. Greater than 50% of the visit performed. The patient, , and I discussed heart rate, rhythm, bradycardia, sinus node dysfunction, cystitis, chemical complication device subsequent visit, fibular device, standard of care for device follow-up, reviewed indications for medications and if refills needed, treatment options, risks, benefits, and imponderables. All questions answered in detail. Patient and appreciative of care documented in this encounterM[facility] Work Phone: 1(817) 474-144104-01-2025 Instructions* Patient Instructions* Herlinda Salazar RN - 06/20/2024 3:20 PM EDT Continue same medications/treatment. Patient educated on proper [...] visit. Follow up with Dr. Ha in 1 year with device check SCHEDULE in clinic device check at [facility] in 6 months Continue remote checks at 3 and 9 months HERLINDA Davenport RN, AM SCRIBING FOR AND IN THE PRESENCE OF DR. CARMEN HA MD, FACC, FACP, FHRS documented in this encounterM[facility] Hospital Work Phone: [phone] 522-697203-24-2025 History of Present illness Narrative* Aura Hernandez MA - 06/12/2024 10:00 AM EDT Patient was in today to be fit with [employer] [address] hearing aids that [facility]/[place]lebar [place] benefit. Patient was accompanied by his and is an experienced hearing aid wearer. We reviewedd charging and changing dome and filter. Patient aid was coupled to a 3M receiverwith a small closed dome. Patient stated he could hear with the aids and did not want any sound adjustments. Patient states it is very difficult for him to insert aids and he gets help. Patient aids were paired to his Iphone and features were reviewed. Patient prefers not to stream phone calls. Patient prefers to continue as needed. Cosigned by ROLAND Mims at 06/12/2024 1:41 PM EDT documented in this encounterSainte Genevieve County [facility] [id number] History of Present illness Narrative* Alisha Cantrell MA - 06/08/2024 12:45 PM EDT Images from the original note were not included. Subjective Lesley Quintero is a 69 y.o. year old male Chief Complaint Patient presents with Seizures Past Medical History: Diagnosis Date A-fib ([facility]) Carotid artery stenosis Central vestibular vertigo CHF (congestive heart failure) ([facility]) 2014 COPD (chronic obstructive pulmonary disease) ([facility]) Degenerative lumbar disc Depression ([facility]) 1995 Diabetes mellitus ([facility]) 2023 Ear problems GERD (gastroesophageal reflux disease) HL (hearing loss) Hyperlipemia ([facility]) Hypertension ([facility]) Inflammatory bowel disease Myocardial infarction ([facility]) EMIL (obstructive sleep apnea) PAD (peripheral artery disease) ([facility]) Restless legs Seizure ([facility]) Stroke ([facility]) 1995 TIA (transient ischemic attack) Past Surgical History: Procedure Laterality Date APPENDECTOMY CARDIAC DEFIBRILLATOR PLACEMENT 2022 CARDIAC PACEMAKER PLACEMENT CARDIAC SURGERY 02/2014 cardiac stent CORONARY ARTERY BYPASS GRAFT [address] ANGIO HEAD 03/07/[address] ANGIOGRAM NECK 03/07/2024 CT ANGIOGRAM NECK LYMPH NODE BIOPSY SALIVARY GLAND SURGERY 2019 TONSILLECTOMY VASECTOMY Family History Problem Relation Name Age of Onset Bone cancer Mother Ashlee Alcohol abuse Mother Ashlee Diabetes Father Manolo Hypertension Father Manolo Heart attack Father [place] Stroke Father [place] Alcohol abuse Father Manolo Heart disease Father Manolo Ovarian cancer Sister Claudia Pancreatic cancer Brother Armando Heart attack Maternal Grandfather Heart attack Paternal Grandfather Social History Tobacco Use Smoking status: Every Day Current packs/day: 1.00 Average packs/day: 1 pack/day for 50.0 years (50.0 ttl pk-yrs) Types: Cigarettes Smokeless tobacco: Not on file Substance Use Topics Alcohol use: Yes Alcohol/week: 9.0 - 10.0 standard drinks of alcohol Types: 6 Cans of beer, 3 - 4 Standard drinks or equivalent per week Comment: caffeine 2-3 cups per day Medication Documentation Review Audit Reviewed by Maris Gracia MA (Reporter) on 06/08/24 at 1247 Medication Order Taking? Sig Documenting Provider Last Dose Status amiodarone (Pacerone) 200 MG tablet [id number] Take 200 mg by mouth in the morning. Gino Dow MD Active aspirin 81 MG EC tablet [id number] Daily at bedtime Gino Dow MD Active atorvastatin (Lipitor) 80 MG tablet [id number] Daily at bedtime Gino Dow MD Active Continuous Glucose Sensor (FreeStyle Marita 2 Sensor) [facility] [place] [id number] [place] DIRECTED to test BLOOD SUGAR 4-6 times DAILY Darrel Lucia MD Active famotidine (Pepcid) 20 MG tablet [id number] Take 20 mg by mouth in the morning and 20 mg in the evening. Gino Dow MD Active furosemide (Lasix) 20 MG tablet [id number] Take 20 mg by mouth Daily Nany Howe DO Active insulin glargine (Lantus) 100 UNIT/ML injection [id number] Inject 40 Units under the skin Daily Nany Howe DO Active isosorbide mononitrate ER (Imdur) 30 MG 24 hr tablet [id number] Take 30 mg by mouth Daily Do not crush or chew. Nany Howe DO Active levETIRAcetam (Keppra) 750 MG tablet [id number] Take 1 tablet (750 mg) by mouth in the morning and 1 tablet (750 mg) before bedtime. YEISON Delgado Active losartan (Cozaar) 25 MG tablet [id number] Take 25 mg by mouth in the morning. Gino Dow MD 01/12/24 5730 metoprolol succinate XL (Toprol-XL) 50 MG 24 hr tablet [id number] Take 1 tablet by mouth Daily MD Micheal Active mirtazapine (Remeron) 30 MG tablet [id number] Daily at bedtime Gino Dow MD Active rOPINIRole (Requip) 0.5 MG tablet [id number] Take 0.5 mg by mouth at bedtime Gino Dow MD Active Semaglutide,0.25 or 0.5MG/DOS, (Ozempic, 0.25 or 0.5 MG/DOSE,) 2 MG/3ML solution pen-injector [id number] Inject 0.5 mg under the skin 1 (one) time per week Nany Howe DO Active warfarin (Coumadin) 2 MG tablet [id number] Take 2 mg by mouth See administration instructions Gino Dow MD Active HPI CVA -on coumadin and aspirin -he is noting left hand spasm and clenching after his fall around mid January DIZZINESS -CT and CTA to review -continues to have daily episodes of dizziness -states he sits down for a few minutes and it subsides -sitting to standing and walking up steps are triggers -describes it has he just feels like he is going to fall -reports syncope when he does fall from episodes -states he has had 2 falls since last visit SEIZURE -on Keppra -denies any missed doses of medication -denies any recent seizure -last seizure is unknown Paresthesia -very intermittent -located in left hand -overall at baseline ROS Review of Systems Constitutional: Negative. Cardiovascular: Negative. Gastrointestinal: Negative. Musculoskeletal: Negative. Neurological: Positive for dizziness, syncope and numbness. Negative for seizures. Objective Visit Vitals BP 90/60 Resp 16 Ht 5' 9 Wt 230 lb BMI 33.97 kg/m Smoking Status Every Day BSA 2.25 m Patient awake and alert NAD Speech clear noted via phone call. 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 He had left hand claw clenching- developed s/p R MCA bypass. He was diagnosed with most likely focal seizures by neurosurgeon at [facility]. Keppra level 04/03/2022is 18.2. He does describe some rare episodes of clenching to his left hand and reports compliance with keppra. Stable Occlusion and stenosis of other cerebral arteries Updated carotid and TCD were stable 08/2021 as compared to 2020 with continued right ICA occlusion. There is no hemodynamically significant stenosis noted to the L ICA. He is on aspirin and coumadin. Dizziness Central vestibular vertigo Central vestibular dysfunction and also EDILIA 100% occlusion and stent to R MCA 2011. TCD 2016 revealed R MCA proximal occlusion with MCA bypass. The dizziness occurs with position changes. He has increased gatorade intake and decrease caffeine intake. His symptoms have worsened and in conjunction with his recent fall with loss of vision, we are updating STAT images. They are in agreement. He did not report to ER for testing. Dizziness symptoms continue to be daily. CT with no acute changes noted but remote appearing encephalomalcia noted. She had no comparison for CTA which revealed probable occlusion of the right ICA then reconstitution of flow with encephalomalacia also noted. He has had these previous findings with intervention in 2011. Cerebrovascular accident (CVA) due to occlusion of right carotid artery (CMS/HCC) Radiculopathy, lumbosacral region Patient has bilateral S1 radiculopathies and worsening paresthesia manifested as numbness to his left lower extremity that is intermittent and brought on by sitting for periods of time. He declined physical therapy and lumbar spine MRI. He has seen pain management in the past. He uses biofreeze OTC. Stable. Paresthesia Paresthesia to his right fifth digit manifested as numbness and tingling, worse with compression tohis elbow. Symptoms may be related to peripheral nerve process such as cubital tunnel syndrome or cervical radiculopathy. He previously declined EMG. His diabetes has not been controlled but has had recent medication changes. BLE EMG 04/08/2021: revealed bilateral S1 radiculopathies mild in degree and slightly worse when compared to 08/23/2015. PLAN I have reviewed the CT of the brain and CTA of the head and neck with the patient Continue meclizine 25mg up to TID for dizziness. 3. Continue Keppra 750mg PO BID for seizure prevention; consider increase pending course 4. Continue aspirin for secondary stroke prevention 5. Continue coumadin for stroke prevention and following with cardiology 6. I counseled the patient on stroke signs and symptoms and advised the patient to go immediately to the emergency room should these symptoms develop. The patient states understanding. 7. I have advised him to increase water intake as dehydration may be contributing to his dizziness. 8. The patient needs aggressive treatment of his diabetes and is working with his PCP on this currently. Dr. Dow obtained history and examined the patient, I am acting as scribe for Dr. Lety Cantrell CMA documented in this encounterSainte Genevieve County Memorial [id number] History of Present illness Narrative* Nany Howe, DO - 05/24/2024 4:25 PM ESTAssociated Problem(s): Type 2 diabetes mellitus with other circulatory complications ([facility]) During the appointment today all pertinent labs, imaging, health maintenance, and glucose readings were reviewed. Encouraged to check blood glucose throughout the day with some fasting and some PP readings. They are to bring their glucose meter/cgm in to all appointments. All of the patients questions, treatment options, and current care plan and goals were discussed. Acopy of this along with pertinent instructions were given to the patient at the end of the appointment. The patient voices understanding of all of this and is to call in between appointments if they have any problems or questions. Lesley Quintero is struggling to gain control of their diabetes. I am very concerned for diabetesrelated complications. , The patient is wearing their cgm on a daily basis and making decisions in regards to adjusting insulin daily as well for at least the last 60 days , Discussed dietary changesat length. Encouraged to limit simple carbs and [...] make some of the changes we discussed. * Nnay Howe DO - 05/23/2024 3:00 PM EST Images from the original note were not included. Lesley Quintero is a 69 y.o. male presents with chief complaint of New patient Diabetes only HPI: Diabetes Mellitus Initial: Patient here for initial evaluation of diabetes mellitus. The initial diagnosis of diabetes was made in around 2020 Symptoms at diagnosis include none- labs fro wellness. Previously tried medications include: Metformin- diarrhea Complications include: cerebrovascular disease, cardiovascular He has been checking his blood glucose with the [employer] marita 2 CGM-READER- on a daily basis. Bg are running high most of the day. Last A1c: 12.9 (05/10/24); 13.2 (02/02 24) Creatinine: 1.42; estimated GFR: 50 Eye exam: 2023 guille bass Current concerns include: Former Endo: Dr Segovia- PCP Currently on lantus 25 units 1-2 times a day. Levemir using as ssc for meals. Didn't realize it thesame medication should be humalog. Misses his insulin often. Bg levels: similar the past couple months Diet: none Drinks: milk, water, gatorade zero, zero mountain dew, coffee, pure leaf raspberry ice tea Exercise: none Hypoglycemia: none Breakfast: not always eating, PB toast, eggs and sausage, donut, cookie Lunch: not eating Dinner: pasta/potatoes, ckn/beef, peas and corn, bread Snacks: cookies, chips, nuts SUBJECTIVE: PROBLEM LIST SOCIAL ALLERGIES: Patient Active Problem List Diagnosis Carotid artery stenosis Seizure (CMS/HCC) Stroke (CMS/HCC) Stenosis of right carotid artery Central vestibular vertigo Degenerative lumbar disc Cerebrovascular accident (CVA) due to occlusion of right carotid artery (CMS/HCC) Occlusion and stenosis of other cerebral arteries Paresthesia Seizure disorder (CMS/HCC) Type 2 diabetes mellitus with other circulatory complications (CMS/HCC) Social History Tobacco Use Smoking status: Every Day Current packs/day: 1.00 Average packs/day: 1 pack/day for 50.0 years (50.0 ttl pk-yrs) Types: Cigarettes Substance Use Topics Alcohol use: Yes Alcohol/week: 9.0 - 10.0 standard drinks of alcohol Types: 6 Cans of beer, 3 - 4 Standard drinks or equivalent per week Comment: caffeine 2-3 cups per day Drug use: Never Allergies Allergen Reactions Jenny Inhibitors Other Synopsis SmartLink 05/23/2024 03/07/2024 23:59 Antidiabetic medications Insulin Detemir Inject under the skin at bedtime ssc (100 UNIT/ML SOPN) -Discontinued Insulin Glargine Inject under the skin at bedtime 25 units bid (100 UNIT/ML SOLN) -Discontinued (Dose adjustm) Insulin Glargine 40 Units Daily SC metFORMIN HCl Twice daily (850 MG TABS) -Discontinued (Therapy comp) Semaglutide 0.5 mg Weekly SC (2 MG/3ML SOPN) Outpatient prescription Medication marked as long-term Patient-reported The ASCVD Risk score (Ángela MONTANO, et al., 2019) failed to calculate for the following reasons: Risk score cannot be calculated because patient has a medical history suggesting prior/existing ASCVD REVIEW OF SYMPTOMS: Review of Systems Constitutional: Positive for fatigue. Negative for appetite change and unexpected weight change. Eyes: Negative for visual disturbance. Respiratory: Negative for cough, shortness of breath and wheezing. Cardiovascular: Negative for chest pain, palpitations and leg swelling. Neurological: Negative for numbness. Endocrine: Negative for polydipsia, polyphagia and polyuria. OBJECTIVE: 05/23/2024 2:52 PM 03/07/2024 2:17 PM 09/01/2023 2:48 PM Vitals BMI 34.26 kg/m2 34.41 kg/m2 35.15 kg/m2 Systolic 100 80 138 Diastolic 62 67 82 Heart Rate 76 76 Temp 98.1 F Resp 16 Height (in) 5' 9 5' 9 5' 9 Weight (lb) 232 233 238 Visit Report Report Report Report Physical Exam Constitutional: General: He is not in acute distress. Appearance: Normal appearance. Cardiovascular: Rate and Rhythm: Normal rate and regular rhythm. Heart sounds: No murmur heard. No friction rub. No gallop. Pulmonary: Breath sounds: Normal breath sounds. No wheezing, rhonchi or rales. Musculoskeletal: General: No swelling. Neurological: Mental Status: He is alert. ASSESSMENT AND PLAN: Problem List Items Addressed This Visit Type 2 diabetes mellitus with other circulatory complications (CMS/HCC) - Primary During the appointment today all pertinent labs, imaging, health maintenance, and glucose readings were reviewed. Encouraged to check blood glucose throughout the day with some fasting and some PP readings. They are to bring their glucose meter/cgm in to all appointments. All of the patients questions, treatment options, and current care plan and goals were discussed. Acopy of this along with pertinent instructions were given to the patient at the end of the appointment. The patient voices understanding of all of this and is to call in between appointments if they have any problems or questions. Lesley Quintero is struggling to gain control of their diabetes. I am very concerned for diabetesrelated complications. , The patient is wearing their cgm on a daily basis and making decisions in regards to adjusting insulin daily as well for at least the last 60 days , Discussed dietary changesat length. Encouraged to limit simple carbs and [...] make some of the changes we discussed. Relevant Medications Semaglutide,0.25 or 0.5MG/DOS, (Ozempic, 0.25 or 0.5 MG/DOSE,) 2 MG/3ML solution pen-injector Follow up in about 4 weeks (around 06/20/2024) for Recheck. Patient's Medications New Prescriptions SEMAGLUTIDE,0.25 OR 0.5MG/DOS, (OZEMPIC, 0.25 OR 0.5 MG/DOSE,) 2 MG/3ML SOLUTION PEN-INJECTOR Inject 0.5 mg under the skin 1 (one) time per week Previous Medications AMIODARONE (PACERONE) 200 MG TABLET Take 200 mg by mouth in the morning. ASPIRIN 81 MG EC TABLET Daily at bedtime ATORVASTATIN (LIPITOR) 80 MG TABLET Daily at bedtime CONTINUOUS GLUCOSE SENSOR (FREESTYLE MARITA 2 SENSOR) [facility] [place]ED to test BLOOD SUGAR 4-6 times DAILY FAMOTIDINE (PEPCID) 20 MG TABLET Take 20 mg by mouth in the morning and 20 mg in the evening. FUROSEMIDE (LASIX) 20 MG TABLET Take 20 mg by mouth Daily ISOSORBIDE MONONITRATE ER (IMDUR) 30 MG 24 HR TABLET Take 30 mg by mouth Daily Do not crush or chew. LEVETIRACETAM (KEPPRA) 750 MG TABLET Take 1 tablet (750 mg) by mouth in the morning and 1 tablet (750 mg) before bedtime. LOSARTAN (COZAAR) 25 MG TABLET Take 25 mg by mouth in the morning. METOPROLOL SUCCINATE XL (TOPROL-XL) 50 MG 24 HR TABLET Take 1 tablet by mouth Daily MIRTAZAPINE (REMERON) 30 MG TABLET Daily at bedtime ROPINIROLE (REQUIP) 0.5 MG TABLET Take 0.5 mg by mouth at bedtime WARFARIN (COUMADIN) 2 MG TABLET Take 2 mg by mouth See administration instructions Modified Medications Modified Medication Previous Medication INSULIN GLARGINE (LANTUS) 100 UNIT/ML INJECTION insulin glargine (Lantus) 100 UNIT/ML injection Inject 40 Units under the skin Daily Inject under the skin at bedtime 25 units bid Discontinued Medications INSULIN DETEMIR (LEVEMIR FLEXPEN) 100 UNIT/ML PEN Inject under the skin at bedtime ssc I have reviewed and reconciled the history and medication list with the patient today. documented in this encounterSainte Genevieve County Memorial [id number] Hospital Discharge instructionsAmbulatory Orders* Referral to Family Practice Time Frame: 05/17/24, Location: None [facility] Work Phone: [phone] [facility] [place] [address] Pulmonary Function Signed Patient: Lesley Quintero MR#: [id number] : 1955 Date of Service:0 05/10/24 Age/Sex: 69 / M ADM Date: 5 Loc: RT Room: Type: [facility] Attending Dr: Franck Posey DO Copies to: DO Mark Hawkins MD W Scott Sheldon, DO~ Pulmonary Function Test Complete pulmonary function studies were performed on May 10, 2024 for patient with diagnosis of long-term high risk medication use. Spirometry was acceptable and reproducible with adequate duration of exhalation. Please refer to the pulmonary function test report for the raw data. SPIROMETRY: Spirometry was performed without bronchodilator studies and reveals an FEV1 to FVC ratio of 77% with an FEV1 of 3.01 liters (93% predicted) and a forced vital capacity of 3.94 liters (90%predicted). LUNG VOLUMES: Measurement of static lung volumes was performed by plethysmography and indicates a total lung capacity of 6.57 liters (95% predicted) with a residual volume which was 104% of predictedand a residual volume to total lung capacity ratio of 40%. DIFFUSION CAPACITY: Single breath diffusion capacity is 17.5 mL/mmHg/min (66% predicted) and is 86%predicted after adjustment for alveolar volume. SUMMARY: These pulmonary function studies revealed no evidence of obstruction, restriction, nor airtrapping. There is a mild decrease in single breath diffusion capacity which may be in part relatedto ventilation/perfusion mismatching as it normalizes when adjusted for alveolar volume. When compared to prior studies of March 24, 2023 there has been improvement in expiratory flow and slight increase in total lung capacity with no significant change in the single breath diffusion capacity. Overall, there is no clear evidence to suggest a trend of declining diffusion capacity dating as far back as July 2021. There is no indication for adjustment in medical therapy on the basis of these studie s. Clinical correlation is recommended. Transcribed By: LETI 05/10/24 161 Dictated By: Mark Campa MD 05/10/241613 Signed By: 05/10/24 1618 [facility]02-12-2025 Evaluation note* Diagnosis Onset Date Resolution Status Admit Date Atrial fibrillation acute Febru vero2024 10:10am Elevated cholesterol acute uary 2024 10:10am Hypertension acute April 10:10am IBS (irritable bowel syndrome) acute May 03, 2024 10:10am Intermittent lightheadedness acute May 03, 2024 10:10am Type 2 diabetes mellitus wit h diabetic peripheral angiopathy without gangre acute May 03, 025 10:10am Type 2 diabetes mellitus wit h hyperglycemia acute May 03 10:10am ASHD (arteriosclerotic heart disease) chronic May 03 025 10:10am [facility] Work Phone: [phone] 554-101802-10-2025 History of Present illness Narrative* Lolis Mcnulty, CCC-A - 05/01/2024 1:00 PM EST History: Pt has history of bilateral hearing loss. Last audio was 01-14-2022. Pt was fit in 2016 with [employer] Fit 800 JEFFERY aids. He is interested in updating his hearing aids. History is positive for chronic ear infections both ears. Pt denies tinnitus. Pt saw Dr. Lucia a few weeks ago and was told he did not have fluid in either ear. Otoscopic Exam: Ear canal clear AU Pure Tone Audiometry Right Ear: Mild to profound mixed hearing loss Left Ear: Mild to profound mixed hearing loss Speech Audiometry Right SRT = 45 dB and word discrimination score at 70 dBHL (masked) = 100% Left SRT = 45 dB and word discrimination score at 70 dBHL (masked) = 100% Impressions: Bilateral mild to profound mixed hearing loss Pt is good candidate for hearing aids and is eligible for hearing aids through his [employer] Medicare HCS Benefit. Hearing Aid Discussion: Pt is eligible for 2 advanced level rechargeable JEFFERY aids for $250. Pt is interested in trying the advanced aids. He likes alves and needs 3M receivers. Aids ordered in [facility] portal. Pt scheduled for HAF in 6 weeks in [place] and a 2 week SMITH follow up for June 28 in [facility]. documented in this encounterSainte Genevieve County Memorial [id number] History of Present illness Narrative* Darrel Lucia MD - 03/07/2024 2:20 PM EST Subjective Patient ID: Lesley Quintero is a 69 y.o. male who presents for Ear Problem (Clean ears) Pt reports he had a CT head today and was told he has been getting dizzy and passing out. Pt stateshe was told there was fluid in the ears. I reviewed the CT and there is partial opacification of the RT mastoid but no ME fluid. Family History Problem Relation Name Age of Onset Cancer Mother Diabetes Father Hypertension Father Heart attack Father Stroke Father Cancer Sister Cancer Brother Heart attack Maternal Grandfather Heart attack Paternal Grandfather Active Ambulatory Problems Diagnosis Date Noted Carotid artery stenosis 08/31/2023 Seizure ([facility]/HCC) 08/31/2023 Stroke ([facility]) 08/31/2023 Stenosis of right carotid artery 08/31/2023 Central vestibular vertigo 08/31/2023 Degenerative lumbar disc 08/31/2023 Cerebrovascular accident (CVA) due to occlusion of right carotid artery ([facility]) 08/31/2023 Occlusion and stenosis of other cerebral arteries 08/31/2023 Paresthesia 08/31/2023 Seizure disorder ([facility]/HCC) 08/31/2023 Resolved Ambulatory Problems Diagnosis Date Noted No Resolved Ambulatory Problems Past Medical History: Diagnosis Date Ear problems EMIL (obstructive sleep apnea) TIA (transient ischemic attack) Past Surgical History: Procedure Laterality Date CARDIAC SURGERY 02/[address] ANGIO HEAD 03/07/[address] ANGIOGRAM NECK 03/07/2024 CT ANGIOGRAM NECK Allergies Allergen Reactions Jenny Inhibitors Other Current Outpatient Medications on File Prior to Visit Medication Sig Dispense Refill amiodarone (Pacerone) 200 MG tablet Take 200 mg by mouth in the morning. aspirin 81 MG EC tablet Daily at bedtime atorvastatin (Lipitor) 80 MG tablet Daily at bedtime Continuous Glucose Sensor (FreeStyle Marita 2 Sensor) [facility] to test BLOOD SUGAR 4-6 times DAILY famotidine (Pepcid) 20 MG tablet Take 20 mg by mouth in the morning and 20 mg in the evening. levETIRAcetam (Keppra) 750 MG tablet every 12 (twelve) hours metoprolol succinate XL (Toprol-XL) 50 MG 24 hr tablet Twice daily mirtazapine (Remeron) 30 MG tablet Daily at bedtime rOPINIRole (Requip) 0.5 MG tablet Take 0.5 mg by mouth at bedtime warfarin (Coumadin) 2 MG tablet Take 2 mg by mouth See administration instructions losartan (Cozaar) 25 MG tablet Take 25 mg by mouth in the morning. [DISCONTINUED] metFORMIN (Glucophage) 850 MG tablet Twice daily No current facility-administered medications on file prior to visit. Objective Last Recorded Vitals Vitals: 03/07/24 1417 BP: 80/67 ENT Physical Exam Constitutional Appearance: patient appears well-developed, well-nourished and well-groomed, Communication/Voice: communication appropriate for developmental age; vocal quality normal; Ear Ear comments: Scant debris on RT TM suctioned. Binu TMs intact Assessment/Plan Diagnoses and all orders for this visit: Dizziness and giddiness Syncope, unspecified syncope type There is no active ME dz on exam or on the CT. Pt's syncopal episodes are almost certainly cardiogenic. No tx or further W/U from an ENT standpoint. documented in this [facility]12-16-2024 History of Present illness Narrative* YEISON Delgado - 03/06/2024 2:00 PM EST Subjective Lesley Quintero is a 69 y.o. year old male No chief complaint on file. Past Medical History: Diagnosis Date Carotid artery stenosis Central vestibular vertigo Degenerative lumbar disc EMIL (obstructive sleep apnea) Seizure (CMS/HCC) TIA (transient ischemic attack) Past Surgical History: Procedure Laterality Date CARDIAC SURGERY 02/2014 cardiac stent Family History Problem Relation Name Age of Onset Cancer Mother Diabetes Father Hypertension Father Heart attack Father Stroke Father Cancer Sister Cancer Brother Heart attack Maternal Grandfather Heart attack Paternal Grandfather Social History Tobacco Use Smoking status: Every Day Current packs/day: 0.50 Types: Cigarettes Smokeless tobacco: Not on file Substance Use Topics Alcohol use: Not Currently Alcohol/week: 3.0 - 4.0 standard drinks of alcohol Types: 3 - 4 Standard drinks or equivalent per week Comment: caffeine 2-3 cups per day Medication Documentation Review Audit Reviewed by Maris Gracia MA (Reporter) on 09/01/23 at 1453 Medication Order Taking? Sig Documenting Provider Last Dose Status amiodarone (Pacerone) 200 MG tablet [id number] Take 200 mg by mouth in the morning. Gino Dow MD Active aspirin 81 MG EC tablet [id number] Daily at bedtime Gino Dow MD Active atorvastatin (Lipitor) 80 MG tablet [id number] Daily at bedtime Gino Dow MD Active famotidine (Pepcid) 20 MG tablet [id number] Take 20 mg by mouth in the morning and 20 mg in the evening. Gino Dow MD Active levETIRAcetam (Keppra) 750 MG tablet [id number] every 12 (twelve) hours Gino Dow MD Active losartan (Cozaar) 25 MG tablet [id number] Take 25 mg by mouth in the morning. Gino Dow MD Active metFORMIN (Glucophage) 850 MG tablet [id number] Twice daily Gino Dow MD Active metoprolol succinate XL (Toprol-XL) 50 MG 24 hr tablet [id number] Twice daily Gino Dow MD Active mirtazapine (Remeron) 30 MG tablet [id number] Daily at bedtime Gino Dow MD Active rOPINIRole (Requip) 0.5 MG tablet [id number] Take 0.5 mg by mouth at bedtime Gino Dow MD Active warfarin (Coumadin) 2 MG tablet [id number] Take 2 mg by mouth See administration instructions Gino Dow MD Active HPI Patient elected for video visit due to distance to office. Sound would not connect. I called the patient after visualizing him and his on video and sending chat messages as we were trying to re connect. CVA -on coumadin and aspirin -he is noting left hand spasm and clenching after his fall around mid January . DIZZINESS -this has worsened since around january -this caused a fall -he did note black out of vision -he has had dizziness since that time -he weaned himself off meclizine as well -he also notes clenching of his left hand -he remains on Coumadin and aspirin -he did not seek medical attention SEIZURE -on Keppra -denies any missed doses -denies any recent seizure . Paresthesia -denies any numbness or tingling -overall at baseline ROS Review of Systems Constitutional: Negative. Respiratory: Positive for shortness of breath. Cardiovascular: Negative. Gastrointestinal: Negative. Musculoskeletal: Negative. Neurological: Positive for dizziness. Negative for seizures. Objective Visit Vitals Smoking Status Every Day Patient awake and alert NAD Speech clear noted via phone call. also present BLE EMG 04/08/2021: revealed bilateral S1 radiculopathies mild in degree and slightly worse when compared to 08/23/2015. PLAN Due to his decline of symptoms considering a fall with LOC while on coumadin and aspirin, I will order STAT CT brain and CTA of the head and neck to assess for an intracranial process which could be contributing to his symptoms. He declined wanting to present to ER. He is unable to have MRI due to AICD. From a symptomatic standpoint in the meantime, he was advised to resume his meclizine 25mg up to TID for dizziness. 3. Continue Keppra 750mg PO BID for seizure prevention; consider increase pending course 4. Continue aspirin for secondary stroke prevention 5. Continue coumadin for stroke prevention and following with cardiology 6. I counseled the patient on stroke signs and symptoms and advised the patient to go immediately to the emergency room should these symptoms develop. The patient states understanding. 7. He was advised to report to ER for worsening symptoms. 8. This visit has been rescheduled as a video visit which had to be changed to a phone visit later on to comply with continuity of care and patient transportation concerns. The video visit, includingtwo-way audio and video communication, is in lieu of an in-person visit which was then finished with a phone visit. The patient provided verbal consent to use the video visit. I spent 10 minutes on this call conducting an interview, performing a limited exam by video, with greater than 50% spent educating the patient on my assessment and plan. Follow up documented in this encounterSainte Genevieve County Memorial [id number] History of Present illness Narrative* Jesus Posey, DO - 01/12/2024 10:50 AM EDT Subjective Lesley Quintero is a [...] and losartan. He has known ASHD, remote DE, history of multivessel CABG x4 in 2018, [...] tablet (30 mg) by mouth once daily. Donot crush or chew., Disp: 30 tablet, Rfl: [...] see administration instructions. As directed by the [facility] coumadin clinic. Ok to resume at previous dose on 01/09/23, Disp: , Rfl: Assessment/Plan 1. 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 documented in this [facility] Work Phone: 1(712) 211-620410-23-2024 Instructions* Patient Instructions* Katerin Mcfarland LPN - 01/12/2024 10:50 AM [...] per routine Pacemaker/Defibrillator follow up per routine * Attachments The following attachments cannot be sent through Care Everywhere. * Heart Healthy Diet (Japanese) documented in this [facility] Work Phone: 1(873) [phone] History of Present illness Narrative* Carmen Ha MD - 12/03/2023 3:00 PM EDT Chief Complaint: Follow-up (Pt is here today following up after 6 months with device check ) History Of Present Illness: Kenton Quintero is a 68 y.o. male presenting with follow-up. He is accompanied by his . He feels okay. Sometimes in the morning, he is lightheaded, especially if he is moving position. [place] his blood pressure is low all the time. He takes all of his daily medications at 1 time. Patient denies any arrhythmia symptoms of palpitation, near syncope, or syncope. Last Recorded Vitals: Vitals: 12/03/23 1453 BP: 84/56 BP Location: Right arm Patient Position: Sitting Pulse: 76 Weight: 104 kg (230 lb) Past Medical History: See list Past Surgical History: See list Social History: He reports that he has been smoking cigarettes. He has a 45 pack-year smoking history. He has neverused smokeless tobacco. He reports current alcohol use [...] daily losartan (COZAAR) 25 mg, oral, Daily metoprolol succinate XL (TOPROL-XL) 50 mg, oral, Daily mirtazapine (REMERON) 30 mg, oral, Nightly nitroglycerin (NITROSTAT) 0.4 mg, sublingual, Every 5 min PRN rOPINIRole (REQUIP) 0.5 mg, oral, Nightly warfarin (COUMADIN) 2 mg, oral, See admin instructions, As directed by the [facility] coumadin clinic. Ok to resume at previous dose on 01/09/23 Review of Systems All other systems reviewed and are negative. Physical Exam: Constitutional: Appearance: Healthy appearance. Not in distress. Eyes: Conjunctiva/sclera: Conjunctivae normal. Pupils: Pupils are equal, round, and reactive to light. Neck: Vascular: No JVR. JVD normal. Pulmonary: Effort: Pulmonary effort is normal. Breath sounds: Normal breath sounds. No wheezing. No rhonchi. No rales. Chest: Chest wall: Not tender to palpatation. Cardiovascular: PMI at left midclavicular line. Normal rate. Regular rhythm. Normal S1. Normal S2. Murmurs: There is no murmur. No gallop. No click. No rub. Pulses: Intact distal pulses. Edema: Peripheral edema absent. Abdominal: Tenderness: There is no abdominal tenderness. Musculoskeletal: Normal range of motion. General: No tenderness. Cervical back: Normal range of motion. Skin: General: Skin is warm and dry. [...] Last Cardiology Tests: ECG: ECG 12 Lead 10/06/2023 Today. Appropriate pacing. Right axis deviation. Paced QT interval 410 ms. Device evaluation today. Saint V[place] CD HFA 500 Q BiV ICD. Estimated longevity device over 4 years. 97% atrial pacing. 97% biventricular pacing. Less than 1% A-fib. 0 VT Echo: Transthoracic Echo Complete 08/24/2023 Lab review: I have personally reviewed the laboratory result(s) see above Assessment/Plan Diagnoses and all orders for this visit: Biventricular ICD (implantable cardioverter-defibrillator) in place H/O sick sinus syndrome Ischemic cardiomyopathy Congestive heart failure, unspecified HF chronicity, unspecified heart failure type (Multi) LBBB (left bundle branch block) 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 S/P CABG x 4 Primary hypertension Mixed hyperlipidemia Encounter for medication review and counseling Encounter to discuss treatment options BMI 33.0-33.9,adult Current every day smoker Riya Roman, ALESHIA Ischemic cardiomyopathy. NYHA III C heart failure. LBBB with QRS 170 ms. Chronotropic incompetence.Sinus node dysfunction. s/p dual chamber pacemaker and upgrade to biventricular defibrillator. Empirical adjusted sensor in the past. Monitor symptoms. Meds reviewed. Continue meds. Discussed refills. Orthostatic dizziness by history. Recommended patient stagger his once daily medications at morning, lunch, and midday. He will monitor symptoms and follow- up with cardiology. Saint Vj CD HFA 500 Q biventricular defibrillator. Device on field alert. Previously adjusted device: AV VV optimization. Ordered device checks. Continue device follow-up. Coronary artery disease. Chronic. Stable. Medical management. Reviewed meds. Continue meds. Discussed refills. Paroxysmal atrial fibrillation. Reviewed meds. Continue meds. Bridges with Lovenox for procedures. Neuropathy. May be progressing per family report. Tobacco use. Discussed tobacco cessation COPD. Discussed association of COPD and arrhythmias. Obstructive sleep apnea. Discussed associated arrhythmias and sleep apnea History of CVA and dementia. Follows with PCP HTN, hyperlipidemia, and DM noted. Reviewed meds. Follows with PCP and cardiology Overweight. AHA recommendations for exercise, diet, and behavioral modification reviewed with pt. Greater than 50% of the visit performed. The patient, , and I discussed bradycardia, sinus nodedysfunction, congestive heart failure, previous echocardiographic guided optimization of device, referral to structural heart clinic declined in the past, change in timing medication regimen to minimize orthostatic dizziness,shared decision making, risk, benefits, and imponderables. All questions answered in detail. Patient and appreciative of care [facility] Work Phone: 1([phone]) 462-432909-13-2024 Instructions* Patient Instructions* Riya Roman LPN - 12/03/2023 3:00 PM EDT Adjust your medication, Metoprolol at breakfast, Cozaar at lunch and Isosorbide mid afternoon Remote checks from your [place]av at 3 and 9 months In Clinic checks at 6 months and 1 year Follow up office visit in 6 months and 1 year Continue same medications/treatment. Patient educated on proper medication use. Patient educated on risk factor modification. Please bring any lab results from other providers / physicians to your next appointment. Please bring all medicines, vitamins and herbal supplements with you when you come to the office. Prescriptions will not be filled unless you are compliant with your follow up appointments or have a follow up appointment scheduled as per instruction of your physician. Refills should be requested at the timeof Your visit. Dr. Carmen Ha documented in this encounterM[facility] Work Phone: [phone]) 184-921908-26-2024 Evaluation note* Diagnosis Onset Date Resolution Status Admit Date Cellulitis, face acute October 212023 8:43am Hypertension acute November 15, 2023 8:43am Type 2 diabetes mellitus wit h hyperglycemia acute November 14 8:43am ASHD (arteriosclerotic heart disease) chronic November 14 8:43am Atrial fibrillation acute 2023 8:54am Elevated cholesterol acute 2023 8:54am Hypertension acute January 8:54am IBS (irritable bowel syndrome) acute 2024 8:54am Intermittent lightheadedness acute 2024 8:54am Type 2 diabetes mellitus wit h diabetic peripheral angiopathy without gangre acute January 31 8:54am Type 2 diabetes mellitus wit h hyperglycemia acute November 12th, 2 024 8:54am ASHD (arteriosclerotic heart disease) chronic January 31, 2 024 8:54am [facility] Work Phone: [phone] Evaluation + Plan note* Assessment & Plan Note - SUE [place] - 10/06/2023 8:34 AM EDTAssociated Problem(s): 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,adult Reviewed the merits of healthy lifestyle choices on overall cardiovascular health. [facility] Work Phone: [phone] 382-163907-17-2024 Evaluation + Plan note* Assessment & Plan Note - SUE [place] - 10/06/2023 8:34 AM EDTAssociated Problem(s): long-term current use of anticoagulant therapy [id number] 7 chronically anticoagulated Coumadin DOACs cost prohibitive [facility] Work Phone: [phone] 573-189907-17-2024 Evaluation + Plan note* Assessment & Plan Note - SUE [place] - 10/06/2023 8:34 AM EDTAssociated Problem(s): Paroxysmal atrial fibrillation (Multi) Maintaining sinus rhythm/AV paced on amiodarone Surveillance testing completed Mar 2023 CHADS VASc 7 anticoagulated on Coumadin [facility] Work Phone: [phone] Evaluation + Plan note* Assessment & Plan Note - SEU [place] - 10/06/2023 8:34 AM EDTAssociated Problem(s): Hyperlipidemia Today statin [facility] Work Phone: [phone] Evaluation + Plan note* Assessment & Plan Note - SUE [place] - 10/06/2023 8:34 AM EDTAssociated Problem(s): Atherosclerosis of coronary artery of [place] heart without angina pectoris 2022 cardiac cath Newly occluded pAV CX/dCX/OM2 COLLEGE ADVISOR RCA and SVG-RCA RAMIREZ-LAD patent Sequential free GSKV-pecqxfpb-MQ1 patent Current daily activity at 4 MET [facility] Work Phone: [phone] 435-316107-17-2024 Miscellaneous Notes* Assessment & Plan Note - SUE [place] - 10/06/2023 8:34 AM EDTAssociated Problem(s): 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,adult Reviewed the merits of healthy lifestyle choices on overall cardiovascular health. 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 documented in [facility] Work Phone: [phone] Evaluation + Plan note* Assessment & Plan Note - SUE [place] - 10/06/2023 8:33 AM EDTAssociated Problem(s): Biventricular ICD (implantable cardioverter-defibrillator) in place Jan 07, 2023: Fragoso DDHFA 500Q biV ICD March 2023 device interrogation BiV paced 98% [facility] Work Phone: [phone] Evaluation + Plan note* Assessment & Plan [...] August 2023 device interrogation BiV paced 98% [facility] Work Phone: [phone] 146-156007-16-2024 Evaluation + Plan note* Assessment & Plan Note - SUE [place] - 10/05/2023 1:57 PM EDTAssociated Problem(s): Current every day smoker 1 pack per day 'working on quitting' No benefit nicoderm patches Continued every day tobacco use. Have reviewed the negative cardiovascular impact of nicotine. Continues to decline pharmacological assistance. [facility] Work Phone: [phone] 148-282707-16-2024 History of Present illness Narrative* SUE [place] [...] See admin instructions, As directed by the [facility]in clinic. Ok to resume at [...] (implantable cardioverter-defibrillator) in place Jan 07, 2023: Desall DDHFA 500Q biV ICD March 2023 device interrogation BiV paced 98% Atherosclerosis of coronary artery of [place] heart without angina pectoris 2022 cardiac cath Newly occluded pAV CX/dCX/OM2 COLLEGE ADVISOR RCA and SVG-RCA RAMIREZ-LAD patent Sequential free OYDZ-tfywbgwz-YZ8 patent Current daily activity at 4 MET Hyperlipidemia Today statin Paroxysmal atrial fibrillation (Multi) Maintaining sinus rhythm/AV paced on amiodarone Surveillance testing completed Mar 2023 CHADS VASc 7 anticoagulated on Coumadin superintendent terminal current 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 You may also call 6-330-PEBC-NOW for free resources and assistance. Ivania Velazquez MSN, POCKET CUTTER-VIDEO GAME CREATOR, PMHNP-[facility] Please excuse any errors in grammar or translation related to this dictation. Voice recognition software was utilized to prepare this document. documented in this encounterM[facility] Work Phone: [phone] 185-531707-16-2024 Instructions* Patient Instructions* SUE [place] - 10/05/2023 [...] we can help. You may also call 0-991-KPHX-NOW for free resources and assistance. documented in [facility] encounterM[facility] Work Phone: [phone]) 471-809106-25-2024 Evaluation + Plan note* Assessment & Plan Note - SUE [place] - 09/14/2023 9:34 AM EDTAssociated Problem(s): BMI 35.0-35.9,adult Reviewed the merits of healthy lifestyle choices on overall cardiovascular health. [facility] Work Phone: [phone] 256-167806-25-2024 Evaluation + Plan note* Assessment & Plan Note - SUE [place] - 09/14/2023 9:34 AM EDTAssociated Problem(s): Diabetes mellitus (Multi) On ARB/statin Reports most recent hemoglobin A1c 9.6 [facility] Work Phone: [phone] 476-815806-25-2024 Evaluation + Plan note* Assessment & Plan Note - SUE [place] - 09/14/2023 9:34 AM EDTAssociated Problem(s): superintendent terminal current use of anticoagulant therapy [id number] 7 chronically anticoagulated Coumadin DOACs cost prohibitive [facility] Work Phone: [phone] 308-780706-25-2024 Miscellaneous Notes* Assessment & Plan Note - [...] - 09/14/2023 9:34 AM EDT Associated Problem(s): 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 documented in this [facility] Work Phone: [phone] Evaluation + Plan note* Assessment & Plan Note - SUE [place] - 09/14/2023 9:33 AM EDTAssociated Problem(s): Paroxysmal atrial fibrillation (Multi) Maintaining sinus rhythm/AV paced on amiodarone Surveillance testing completed Mar 2023 CHADS VASc 7 anticoagulated on Coumadin [facility] Work Phone: [phone] 248-684906-25-2024 Evaluation + Plan note* Assessment & Plan Note - SUE [place] - 09/14/2023 9:32 AM EDTAssociated Problem(s): Hypertension Optimal in office [facility] Work Phone: [phone] Evaluation + Plan note* Assessment & Plan Note - SUE [place] - 09/14/2023 9:32 AM EDTAssociated Problem(s): Hyperlipidemia High intensity statin Reports had labs through his PCP earlier this year, will need to obtain [facility] Work Phone: [phone] Evaluation + Plan note* Assessment & Plan Note - SUE [place] - 09/14/2023 9:32 AM EDTAssociated Problem(s): Atherosclerosis of coronary artery of [place] heart without angina pectoris 2022 cardiac cath Newly occluded pAV CX/dCX/OM2 COLLEGE ADVISOR RCA and SVG-RCA RAMIREZ-LAD patent Sequential free OFQG-pdgdlysl-HT9 patent Current daily activity at 4 METS Has noted some increasing dyspnea on exertion Will add long-acting nitrates [facility] Work Phone: [phone] 166-348206-25-2024 Evaluation + Plan note* Assessment & Plan Note - SUE [place] - 09/14/2023 9:31 AM EDTAssociated Problem(s): Biventricular ICD (implantable cardioverter-defibrillator) in place Jan 07, 2023: Fragoso DDHFA 500Q biV ICD March 2023 device interrogation BiV paced 98% [facility] Work Phone: [phone] Evaluation + Plan note* Assessment & Plan [...] on exertion, nocturnal cough. Will add Lasix. [facility] Work Phone: [phone] Evaluation + Plan note* Assessment & Plan Note - SUE [place] - 09/14/2023 9:28 AM EDTAssociated Problem(s): High risk medication use Amiodarone EKG in office maintaining sinus rhythm/AV paced, QTc 462 on amiodarone 200 mg daily. Surveillance testing completed March 2023 [facility] Work Phone: [phone] Evaluation + Plan note* Assessment & Plan Note - SUE [place] - 09/13/2023 11:54 AM EDTAssociated Problem(s): Current every day smoker 1 pack per day 'working on quitting' No benefit nicoderm patches Continued every day tobacco use. Have reviewed the negative cardiovascular impact of nicotine. Continues to decline pharmacological assistance. [facility] Work Phone: [phone] 650-750606-24-2024 History of Present illness Narrative* SUE [place] - 09/13/2023 8:30 AM EDT Chief Complaint [...] See admin instructions, As directed by the [facility] cou[facility]in clinic. Ok to resume at [...] paced 98% Atherosclerosis of coronary artery of [place] heart without angina pectoris 2022 cardiac cath Newly occluded pAV CX/dCX/OM2 COLLEGE ADVISOR RCA and SVG-RCA RAMIREZ-LAD patent Sequential free MRAZ-rroqdpdh-PS1 patent Current daily activity at 4 METS Has noted some increasing dyspnea on exertion Will add long-acting nitrates Hyperlipidemia High intensity statin Reports had labs through his PCP earlier this year, will need to obtain Hypertension Optimal in office Paroxysmal atrial fibrillation (Multi) Maintaining sinus rhythm/AV paced on amiodarone Surveillance testing completed Mar 2023 CHADS VASc 7 anticoagulated on Coumadin superintendent terminal current use of anticoagulant therapy [id number] 7 chronically anticoagulated Coumadin DOACs cost prohibitive [...] contact the office if new symptoms arise. MANAGER TELEMARKETING 2 weeks You need to stop smoking. Though it is not easy, more than half of all adults smokers have quit. Weencourage you to write down all the reasons you should quit smoking and set a quit date for yourself. Ask us how we can help. You may also call 9-127-QKII-NOW for free resources and assistance. Ivania Velazquez MSN, POCKET CUTTER-VIDEO GAME CREATOR, PMHNP-[facility] Please excuse any errors in grammar or translation related to this dictation. Voice recognition software was utilized to prepare this document. documented in this [facility] Work Phone: [phone]) 181-101006-24-2024 Instructions* Patient Instructions* SUE [place] - 09/13/2023 [...] contact the office if new symptoms arise. MANAGER TELEMARKETING 2 weeks You need to stop smoking. Though it is not easy, more than half of all adults smokers have quit. Weencourage you to write down all the reasons you should quit smoking and set a quit date for yourself. Ask us how we can help. You may also call 8-279-XXPJNOW for free resources and assistance. documented in this [facility] Work Phone: [phone] History of Present illness Narrative* Jesus Posey, - 07/13/2023 10:10 AM EDT Subjective Lesley Quintero is a 68 y.o. male Chief Complaint Follow-up 68-year-old gentleman returns for 6-month follow-up he is doing well, improved from a respiratory/pulmonary standpoint, unfortunately continues smoking approximately a pack of cigarettes daily and wehave continued to children counselor him extensively on tobacco cessation and offered pharmacologic alternatives. He denies angina, hospitalization, nitrate usage or cardiovascular events or pulmonary events/pneumonia or RSV infections. He has known ASHD, remote DE, history of multivessel CABG x4 in 2018, [...] see administration instructions. As directed by the [facility] cou[facility]in clinic. Ok to resume at previous dose on 01/09/23, Disp: , Rfl: Assessment/Plan 1. Biventricular ICD (implantable cardioverter-defibrillator) in place Follow Up In Cardiology 2. Ischemic cardiomyopathy Follow Up In Cardiology 3. 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 4. Paroxysmal atrial fibrillation (Multi) 5. S/P CABG x 4 6. Status post angioplasty 7. Primary hypertension 8. Mixed hyperlipidemia 9. High risk medication use 10. Chronotropic incompetence with sinus node dysfunction 11. BMI 35.0-35.9,adult 12. Current every day smoker Scribe Attestation By signing my name below, Katerin Davenport LPN , Scribe attest that this documentation [...] exam, discussion and plan. documented in [facility] Work Phone: [phone] Instructions* Patient Instructions* Katerin Mcfarland LPN - [...] Provided instructions on exercise. documented in this [facility] Work Phone: [phone] History of Present illness Narrative* Carmen Ha [...] See admin instructions, As directed by the [facility]. Ok to resume at [...] block) S/P CABG x 4 Atherosclerosis of [place] coronary artery of [place] heart without angina pectoris Primary hypertension Mixed [...] and appreciative of care documented in this encounterM[facility] Work Phone: [phone] Instructions* Patient Instructions* Herlinda Salazar RN - [...] OF DR. CARMEN HA MD, FACC, FACP, RS documented in this encounterM[facility] Work Phone: [phone]) 511-398201-24-2024 Evaluation note* Encounter Date Diagnosis Assessment Notes [...] before and after meals and bedtime Mar, long-term (current) use of insulin (ICD-10 - Z79.4) [facility] Other 01-10-2024 Evaluation note* Encounter Date Diagnosis Assessment Notes Treatment Notes Treatment Clinical Notes Mar, Type 2 diabetes mellitus with hyperglycemia (ICD-10 - E11.65) [facility] Other 12-27-2023 Evaluation note* Encounter Date Diagnosis Assessment Notes Treatment Notes Treatment Clinical Notes Feb, Type 2 diabetes mellitus with hyperglycemia (ICD-10 - E11.65) 70-130 - none 131-180 - 2: increase to 4u 181-240 - 4: increase to 6u 241-300 - 6: increase to 8u 301-350 - 8: increase to 10u Levemir 14u bid [facility] Other 12-03-2023 Evaluation note* Encounter Date Diagnosis Assessment Notes Treatment Notes Treatment Clinical Notes Feb, Type 2 diabetes mellitus with hyperglycemia (ICD-10 - E11.65) [facility] Other 11-13-2023 Evaluation note* Encounter Date Diagnosis [...] respiratory infections, vascular disease and cancers. Jan, long-term (current) use of insulin (ICD-10 - Z79.4) [facility] Other 10-25-2023 Evaluation + Plan note* Assessment & Plan Note - SUE [place] - 01/13/2023 8:56 AM EDTAssociated Problem(s): Paroxysmal atrial fibrillation (CMS/HCC) Maintaining sinus rhythm on amiodarone Surveillance testing completed July 2022 CHADS VASc 7 anticoagulated on Coumadin T [facility] Work Phone: [phone] Evaluation + Plan note* Assessment & Plan Note - SUE [place] - 01/13/2023 8:56 AM EDTAssociated Problem(s): Atherosclerosis of coronary artery of [place] heart without angina pectoris 2022 cardiac cath Newly occluded pAV CX/dCX/OM2 COLLEGE ADVISOR RCA and SVG-RCA RAMIREZ-LAD patent Sequential free TSAL-wuexldwu-ZS4 patent [facility] Work Phone: [phone] Miscellaneous Notes* Assessment & Plan Note - SUE [place] - 01/13/2023 8:56 AM EDTAssociated Problem(s): Paroxysmal atrial fibrillation (CMS/HCC) Maintaining sinus rhythm on amiodarone Surveillance testing completed July 2022 CHADS VASc 7 anticoagulated on Coumadin * Assessment & Plan Note - SUE [place] - 01/13/2023 8:56 AM EDT Associated Problem(s): Atherosclerosis of coronary artery of [place] heart without angina pectoris 2022 cardiac cath Newly occluded pAV CX/dCX/OM2 COLLEGE ADVISOR RCA and SVG-RCA RAMIREZ-LAD patent Sequential free FEZI-aggkopxq-SS0 patent * Assessment & Plan Note - [...] DDHFA 500Q biV ICD [facility] Work Phone: [phone] Evaluation + Plan note* Assessment & Plan Note - SUE [place] - 01/13/2023 8:55 AM EDTAssociated Problem(s): BMI 33.0-33.9,adult Reviewed the merits of healthy lifestyle choices on overall cardiovascular health. [facility] Work Phone: [phone] Evaluation + Plan note* Assessment & Plan Note - SUE [place] - 01/13/2023 8:54 AM EDTAssociated Problem(s): Current every day smoker Continued every day tobacco use. Have reviewed the negative cardiovascular impact of nicotine. Continues to decline pharmacological assistance. [facility] Work Phone: [phone] Evaluation + Plan note* Assessment & Plan Note - SUE [place] - 01/13/2023 8:54 AM EDTAssociated Problem(s): Ischemic cardiomyopathy ICM HFrEF 30-35% Oct 2022 cath FC II Stage C GDMT: Toprol Entresto: unable to tolerate d/t hypotension Cozaar: to resume today Aldactone Jardiance: insurance would not cover [facility] Work Phone: [phone] Evaluation + Plan note* Assessment & Plan Note - SUE [place] - 01/13/2023 8:52 AM EDTAssociated Problem(s): Biventricular ICD (implantable cardioverter-defibrillator) in place Jan 07, 2023: Fragoso DDHFA 500Q biV ICD [facility] Work Phone: [phone] 666-380210-24-2023 History of Present illness Narrative* SUE [place] - 01/12/2023 4:00 PM EDT Chief Complaint 'I could not take Entresto Reason for Visit Wound check: Jan 07, 2023 upgrade to Fragoso biV ICD at [facility] Patient presents to the office [...] since last office visit with primary supervisor blood donor recruiters. There are no symptoms consistent with unstable [...] See admin instructions, As directed by the [facility]in [facility]. Ok to resume at [...] cardiovascular health. Atherosclerosis of coronary artery of [place] heart without angina pectoris 2022 cardiac cath Newly occluded pAV CX/dCX/OM2 COLLEGE ADVISOR RCA and SVG-RCA RAMIREZ-LAD patent Sequential free LPWH-kwvfjvod-LP3 patent Paroxysmal atrial fibrillation (CMS/HCC) Maintaining sinus [...] Dr. Posey 6 months Ivania Velazquez MSN, POCKET CUTTER-VIDEO GAME CREATOR, PMHNP-[facility] Please excuse any errors in grammar or translation related to this dictation. Voice recognition software was utilized to prepare this document. documented in this encounterM[facility] Work Phone: [phone] Instructions* Patient Instructions* SUE [place] - 01/12/2023 [...] Dr. Posey 6 months documented in this encounterM[facility] Work Phone: [phone] 517-908010-19-2023 Evaluation note* Encounter Date Diagnosis Assessment Notes Treatment Notes Treatment Clinical Notes Dec, Type 2 diabetes mellitus with hyperglycemia (ICD-10 - E11.65) [facility] Other 10-17-2023 Evaluation note* Encounter Date Diagnosis [...] respiratory infections, vascular disease and cancers. Dec, superintendent terminal (current) use of insulin (ICD-10 - Z79.4) Dec, Subungual hematoma of toe of left foot, initial encounter (ICD-10 - S90.222A) Reassured, no treatment [facility] Other [id number] Evaluation note* Encounter Date Diagnosis Assessment Notes [...] pinky finger as well as weakness of beamster. Physical exam findings have also been discussed. [...] which can eliminate the problem. Patient given [place] information handout [facility] Other 08-31-2023 Discharge summary Author Franck Posey [facility] November 19, 2022 2:51pm Note Date/Time November 19, 2022 2: 48pm [facility] [address] [place] [address] Discharge Summary Signed Patient: Lesley Quintero MR#: [id number] : 1955 Acct:[id number] Age/Sex: 67 / M Adm Date: 3 [...] routine lifestyle. 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 4. ACTIVITY: You are advised to [...] bottle, follow the instructions on the bottle. [facility] is not responsible for incorrect [...] ) then follow the Coumadin clinic at [place] instructions to adjust dosing based on the [...] <Electronically signed by Franck Posey DO> 11/19/22 [id number] [facility] Work Phone: 1(293) 208-438308-31-2023 Hospital Discharge instructions Additional Instructions DISCHARGE INSTRUCTIONS FOR CARDIAC FLAVORING MACHINE OPERATOR PHONE NUMBER OF YOUR PHYSICIAN: [phone] PROCEDURE: Heart Cath The following instructions have [...] numb, blue or white, call the supervisor blood donor recruiters immediately. 4. ACTIVITY: You are advised to [...] bottle, follow the instructions on the bottle. [facility] is not responsible for incorrect prescription information provided by the patient during their visit. Do not stop your medications without consulting your health care provider. Please take the list with you to your next doctor's appointment.[facility] Work Phone: 1(721) 922-945107-26-2023 Evaluation note* Encounter Date Diagnosis Assessment Notes [...] pinky finger as well as weakness of beamster. Physical exam findings have also been discussed. [...] as documented in the electronic medical record. [facility] Other 07-12-2023 Evaluation note* Encounter Date Diagnosis [...] pinky finger as well as weakness of beamster. Physical exam findings have also been discussed. [...] as documented in the electronic medical record. 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 Imperic trial of MDI? Smoking cessation Aug, Nicotine dependence, cigarettes, uncomplicated (ICD-10 - F17.210) This patient has been encouraged to quit tobacco use immediately. They are aware of the hazards associated with tobacco use, including but not limited to respiratory infections, vascular disease and cancers. Aug, High risk medication use (ICD-10 - Z79.899) Aug, superintendent terminal (current) use of insulin (ICD-10 - Z79.4) Aug, Trigger ring finger of right hand (ICD-10 - M65.341) Refer to Orthopedics [facility] Other 05-15-2023 Evaluation note* Encounter Date Diagnosis Assessment Notes Treatment Notes Treatment Clinical Notes July, Type 2 diabetes mellitus with hyperglycemia (ICD-10 - E11.65) [facility] Other 05-11-2023 Evaluation note* Encounter Date Diagnosis Assessment Notes Treatment Notes Treatment Clinical Notes July, Type 2 diabetes mellitus with hyperglycemia (ICD-10 - E11.65) July, superintendent terminal (current) use of insulin (ICD-10 - Z79.4) [facility] Other 04-01-2023 Chief complaint Narrative - Reported* [...] pharmacy would decline Jardiance - will contact. -[place] [address] DO Work Phone: [phone]) 166-956801-18-2023 Evaluation note* Encounter Date Diagnosis Assessment Notes [...] maintaining regular scheduled appts with their supervisor blood donor recruiters. Mar, Type 2 diabetes mellitus with hyperglycemia, [...] have to d/c medications. May discuss w/ Assembly Line Leader. Mar, long-term (current) use of insulin (ICD-10 - Z79.4) [facility] Other 01-18-2023 Evaluation note* Encounter Date Diagnosis Assessment Notes Treatment Notes Treatment Clinical Notes Mar, ASHD (arteriosclerotic heart disease) (ICD-10 - I25.10) [facility] Other 01-10-2023 Evaluation note* Encounter Date Diagnosis Assessment Notes Treatment Notes Treatment Clinical Notes Mar, High risk medication use (ICD-10 - Z79.899) [facility] Other 01-09-2023 Evaluation note* Encounter Date Diagnosis Assessment Notes Treatment Notes Treatment Clinical Notes Mar, High risk medication use (ICD-10 - Z79.899) [facility] [employer] Other Chirl complaint Narrative - Reported* Procedure f/u: 'still short of breath' * LESLEY QUINTERO is being seen for cardiomyopathy. [facility] 250 DO Work Phone: Chitw complaint Narrative - Reported* Procedure f/u: 'still short of breath' * LESLEY QUINTERO is being seen for cardiomyopathy. [place] Work Phone: Chirg complaint Narrative - ReportedMICADILIA QUINTERO is being seen for a consultation for. [facility] 320 DO Work Phone: Evaluation noteNo assessment information available [facility] Work Phone: Evaluation [facility]No [facility] [employer] Other Evaluation note* Diagnosis Biventricular ICD (implantable cardioverter-defibrillator) in place- Primary Ischemic cardiomyopathy Other specified forms of chronic ischemic heart disease BMI 33.0-33.9,adult Current every day smoker Paroxysmal atrial fibrillation (CMS/HCC) Atrial fibrillation Atherosclerosis of [place] coronary artery of [place] heart without angina pectoris documented in this encounter [facility] Work Phone: Evaluation note* Diagnosis Onset Date Resolution Status Diabetes acute Elevated cholesterol acute HTN (hypertension) acute long-term (current) use of insulin acute ASHD (arteriosclerotic heart disease) chronic [facility] Work Phone: Evaluation note* Diagnosis [...] 4 Postsurgical aortocoronary bypass status Atherosclerosis of [place] coronary artery of [place] heart without angina pectoris Primary hypertension Unspecified essential hypertension Mixed hyperlipidemia BMI 35.0-35.9,adult Current every day smoker Encounter for medication review and counseling Encounter to discuss treatment options documented in this encounter [facility] Work Phone: Evaluation note* Diagnosis Ischemic cardiomyopathy Other specified forms of chronic ischemic heart disease Cardiac pacemaker in situ documented in this encounter [facility] Work Phone: Evaluation note* Diagnosis Cardiac pacemaker in situ documented in this encounter [facility] Work Phone: Evaluation note* Diagnosis Cardiac pacemaker in situ documented in this encounter [facility] Work Phone: Evaluation note* Diagnosis Biventricular ICD (implantable cardioverter-defibrillator) in place Ischemic cardiomyopathy Other specified forms of chronic ischemic heart disease 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 Paroxysmal atrial fibrillation [...] risk medication use documented in this encounter [facility] Work Phone: Evaluation note* Diagnosis Onset Date Resolution Status Elevated cholesterol acute HTN (hypertension) acute ASHD (arteriosclerotic heart disease) chronic Elevated cholesterol acute HTN (hypertension) acute Type 2 diabetes mellitus with hyperglycemia acute ASHD (arteriosclerotic heart disease) chronic Screening PSA (prostate specific antigen) noneactive [facility] Work Phone: Evaluation note* Diagnosis Shortness of breath Paroxysmal atrial fibrillation (Multi) Atrial fibrillation High risk medication use documented in this encounter [facility] Work Phone: Evaluation note* Diagnosis Onset Date Resolution Status Elevated cholesterol acute HTN (hypertension) acute Type 2 diabetes mellitus with hyperglycemia acute ASHD (arteriosclerotic heart disease) chronic Screening PSA (prostate specific antigen) noneactive Atrial fibrillation acute Elevated cholesterol acute Hypertension acute [id number] acute Type 2 diabetes mellitus with hyperglycemia acute ASHD (arteriosclerotic heart disease) chronic [facility] Work Phone: Evaluation note* Diagnosis Onset Date Resolution Status Atrial fibrillation acute Elevated cholesterol acute Hypertension acute IBS (irritable bowel syndrome) acute [id number] acute Type 2 diabetes mellitus with hyperglycemia acute ASHD (arteriosclerotic heart disease) chronic Atrial fibrillation acute Hypertension acute Type 2 diabetes mellitus with hyperglycemia acute ASHD (arteriosclerotic heart disease) chronic [facility] Work Phone: Evaluation note* Diagnosis Biventricular ICD (implantable cardioverter-defibrillator) in place- Primary Ischemic cardiomyopathy Other specified forms of chronic ischemic heart disease BMI 33.0-33.9,adult Current every day smoker Paroxysmal atrial fibrillation (Multi) Atrial fibrillation Atherosclerosis of [place] coronary artery of [place] heart without angina pectoris Ischemic cardiomyopathy- Primary Other specified forms of chronic ischemic heart disease Atherosclerosis of [place] coronary artery of [place] heart without angina pectoris Paroxysmal atrial fibrillation (Multi) Atrial fibrillation High risk medication use long-term current use of anticoagulant therapy Mixed hyperlipidemia Primary hypertension Unspecified essential hypertension BMI 35.0-35.9,adult Other specified diabetes mellitus without complication, with long-term current use of insulin Current every day smoker Biventricular ICD (implantable cardioverter-defibrillator) in place Biventricular ICD (implantable cardioverter-defibrillator) in place- Primary Ischemic cardiomyopathy Other specified forms of chronic ischemic heart disease 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 Primary hypertension Unspecified essential hypertension Mixed hyperlipidemia 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,adult long-term current use of anticoagulant therapy High risk medication use Paroxysmal atrial fibrillation (Multi) Atrial fibrillation Current every day smoker 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 Ischemic cardiomyopathy Other [...] every day smoker documented in this encounter [facility] Work Phone: Evaluation note* Diagnosis Biventricular ICD (implantable cardioverter-defibrillator) in place- Primary Ischemic cardiomyopathy Other specified forms of chronic ischemic heart disease BMI 33.0-33.9,adult Current every day smoker Paroxysmal atrial fibrillation (Multi) Atrial fibrillation Atherosclerosis of [place] coronary artery of [place] heart without angina pectoris Ischemic cardiomyopathy- Primary Other specified forms of chronic ischemic heart disease Atherosclerosis of [place] coronary artery of [place] heart without angina pectoris Paroxysmal atrial fibrillation (Multi) Atrial fibrillation High risk medication use superintendent terminal current use of anticoagulant therapy Mixed hyperlipidemia Primary hypertension Unspecified essential hypertension BMI 35.0-35.9,adult Other specified diabetes mellitus without complication, with long-term current use of insulin Current every day smoker Biventricular ICD (implantable cardioverter-defibrillator) in place Biventricular ICD (implantable cardioverter-defibrillator) in place- Primary Ischemic cardiomyopathy Other specified forms of chronic ischemic heart disease 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 Primary hypertension Unspecified essential hypertension Mixed hyperlipidemia 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,adult long-term current use of anticoagulant therapy High risk medication use Paroxysmal atrial fibrillation (Multi) Atrial fibrillation Current every day smoker Paroxysmal atrial fibrillation (Multi) Atrial fibrillation High risk medication use documented in this encounter [facility] Work Phone: Evaluation note* Diagnosis Ischemic cardiomyopathy- Primary Other specified forms of chronic ischemic heart disease Atherosclerosis of [place] coronary artery of [place] heart without angina pectoris Paroxysmal atrial fibrillation (Multi) Atrial fibrillation High risk medication use long-term current use of anticoagulant therapy Mixed hyperlipidemia Primary hypertension Unspecified essential hypertension BMI 35.0-35.9,adult Other specified diabetes mellitus without complication, with long-term current use of insulin (Multi) Current every day smoker Biventricular ICD (implantable cardioverter-defibrillator) in place Paroxysmal atrial fibrillation (Multi) Atrial fibrillation High risk medication use documented in this encounter [facility] Work Phone: Evaluation note* Diagnosis Biventricular ICD (implantable cardioverter-defibrillator) in place- Primary Ischemic cardiomyopathy Other specified forms of chronic ischemic heart disease BMI 33.0-33.9,adult Current every day smoker Paroxysmal atrial fibrillation (Multi) Atrial fibrillation Atherosclerosis of [place] coronary artery of [place] heart without angina pectoris Ischemic cardiomyopathy- Primary Other specified forms of chronic ischemic heart disease Atherosclerosis of [place] coronary artery of [place] heart without angina pectoris Paroxysmal atrial fibrillation (Multi) Atrial fibrillation High risk medication use superintendent terminal current use of anticoagulant therapy Mixed hyperlipidemia Primary hypertension Unspecified essential hypertension BMI 35.0-35.9,adult Other specified diabetes mellitus without complication, with long-term current use of insulin (Multi) Current every day smoker Biventricular ICD (implantable cardioverter-defibrillator) in place Biventricular ICD (implantable cardioverter-defibrillator) in place- Primary Ischemic cardiomyopathy Other specified forms of chronic ischemic heart disease 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 Primary hypertension Unspecified essential hypertension Mixed hyperlipidemia 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,adult superintendent terminal current use of anticoagulant therapy High risk medication use Paroxysmal atrial fibrillation (Multi) Atrial fibrillation Current every day smoker Paroxysmal atrial fibrillation (Multi) Atrial fibrillation High risk medication use documented in this encounter [facility] Work Phone: Evaluation note* Diagnosis Stenosis of carotid artery, unspecified laterality- Primary Stenosis of middle cerebral artery, 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 Dizziness Dizziness and giddiness documented in this encounter [facility] HealthcareEvaluation note* Diagnosis Biventricular ICD (implantable cardioverter-defibrillator) in place- Primary Ischemic cardiomyopathy Other specified forms of chronic ischemic heart disease BMI 33.0-33.9,adult Current every day smoker Paroxysmal atrial fibrillation (Multi) Atrial fibrillation Atherosclerosis of [place] coronary artery of [place] heart without angina pectoris Ischemic cardiomyopathy- Primary Other specified forms of chronic ischemic heart disease Atherosclerosis of [place] coronary artery of [place] heart without angina pectoris Paroxysmal atrial fibrillation (Multi) Atrial fibrillation High risk medication use superintendent terminal current use of anticoagulant therapy Mixed hyperlipidemia Primary hypertension Unspecified essential hypertension BMI 35.0-35.9,adult Other specified diabetes mellitus without complication, with long-term current use of insulin (Multi) Current every day smoker Biventricular ICD (implantable cardioverter-defibrillator) in place Biventricular ICD (implantable cardioverter-defibrillator) in place- Primary Ischemic cardiomyopathy Other specified forms of chronic ischemic heart disease 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 Primary hypertension Unspecified essential hypertension Mixed hyperlipidemia 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,adult superintendent terminal current use of anticoagulant therapy High risk medication use Paroxysmal atrial fibrillation (Multi) Atrial fibrillation Current every day smoker Biventricular ICD (implantable cardioverter-defibrillator) in place- Primary H/O sick sinus syndrome Ischemic cardiomyopathy Other specified forms of chronic ischemic heart disease Congestive heart failure, unspecified HF chronicity, unspecified heart failure type (Multi) LBBB (left bundle branch block) Other left bundle branch block 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 S/P CABG x 4 Postsurgical aortocoronary bypass status Primary hypertension Unspecified essential hypertension Mixed hyperlipidemia Encounter for medication review and counseling Encounter to discuss treatment options BMI 33.0-33.9,adult Current every day smoker Paroxysmal atrial fibrillation (Multi) Atrial fibrillation High risk medication use documented in this encounter [facility] Work Phone: Evaluation note* Diagnosis Biventricular ICD (implantable cardioverter-defibrillator) in place- Primary Ischemic cardiomyopathy Other specified forms of chronic ischemic heart disease BMI 33.0-33.9,adult Current every day smoker Paroxysmal atrial fibrillation (Multi) Atrial fibrillation Atherosclerosis of [place] coronary artery of [place] heart without angina pectoris Ischemic cardiomyopathy- Primary Other specified forms of chronic ischemic heart disease Atherosclerosis of [place] coronary artery of [place] heart without angina pectoris Paroxysmal atrial fibrillation (Multi) Atrial fibrillation High risk medication use superintendent terminal current use of anticoagulant therapy Mixed hyperlipidemia Primary hypertension Unspecified essential hypertension BMI 35.0-35.9,adult Other specified diabetes mellitus without complication, with long-term current use of insulin (Multi) Current every day smoker Biventricular ICD (implantable cardioverter-defibrillator) in place Biventricular ICD (implantable cardioverter-defibrillator) in place- Primary Ischemic cardiomyopathy Other specified forms of chronic ischemic heart disease 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 Primary hypertension Unspecified essential hypertension Mixed hyperlipidemia 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,adult superintendent terminal current use of anticoagulant therapy High risk medication use Paroxysmal atrial fibrillation (Multi) Atrial fibrillation Current every day smoker Biventricular ICD (implantable cardioverter-defibrillator) in place Paroxysmal atrial fibrillation (Multi) Atrial fibrillation High risk medication use documented in this encounter [facility] Work Phone: Evaluation note* Diagnosis Dizziness and giddiness- Primary Syncope, unspecified syncope type documented in this encounter [facility] HealthcareEvaluation note* Diagnosis Mixed conductive and sensorineural hearing loss, bilateral- Primary Mixed hearing loss, bilateral documented in this encounter [facility] HealthcareEvaluation note* Diagnosis Onset Date Resolution Status Admit Date Atrial fibrillation acute Febru vero 2024 10:10am Elevated cholesterol acute Febr uary 2024 10:10am Hypertension acute April 10:10am IBS (irritable bowel syndrome) acute May 03, 2024 10:10am Intermittent lightheadedness acute May 03, 2024 10:10am Type 2 diabetes mellitus wit h diabetic peripheral angiopathy without gangre acute May 03 10:10am Type 2 diabetes mellitus wit h hyperglycemia acute May 03 10:10am ASHD (arteriosclerotic heart disease) chronic May 03 10:10am [facility] Work Phone: Evaluation note* Diagnosis Type 2 diabetes mellitus with other circulatory complications (CMS/HCC)- Primary documented in this encounter [facility] HealthcareEvaluation note* Diagnosis 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, bilateral- Primary Mixed hearing loss, bilateral documented in this encounter [facility] HealthcareEvaluation note* Diagnosis Type 2 diabetes mellitus with other circulatory complications- Primary Stenosis of carotid artery, unspecified laterality Stenosis of middle cerebral artery, 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 Dizziness Dizziness and giddiness Seizure disorder (CMS/HCC) Unspecified epilepsy without mention of intractable epilepsy 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 Cerebrovascular accident (CVA) due to occlusion of right carotid artery (CMS/HCC) Radiculopathy, lumbosacral region Thoracic or lumbosacral neuritis or radiculitis, unspecified Paresthesia Disturbance of skin sensation documented in this encounter [facility] HealthcareEvaluation note* Diagnosis Biventricular ICD (implantable cardioverter-defibrillator) in place- Primary Ischemic cardiomyopathy Other specified forms of chronic ischemic heart disease BMI 33.0-33.9,adult Current every day smoker Paroxysmal atrial fibrillation (Multi) Atrial fibrillation Atherosclerosis of [place] coronary artery of [place] heart without angina pectoris Ischemic cardiomyopathy- Primary Other specified forms of chronic ischemic heart disease Atherosclerosis of [place] coronary artery of [place] heart without angina pectoris Paroxysmal atrial fibrillation (Multi) Atrial fibrillation High risk medication use long-term current use of anticoagulant therapy Mixed hyperlipidemia Primary hypertension Unspecified essential hypertension BMI 35.0-35.9,adult Other specified diabetes mellitus without complication, with long-term current use of insulin Current every day smoker Biventricular ICD (implantable cardioverter-defibrillator) in place Biventricular ICD (implantable cardioverter-defibrillator) in place- Primary Ischemic cardiomyopathy Other specified forms of chronic ischemic heart disease 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 Primary hypertension Unspecified essential hypertension Mixed hyperlipidemia 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,adult long-term current use of anticoagulant therapy High risk medication use Paroxysmal atrial fibrillation (Multi) Atrial fibrillation Current every day smoker Biventricular ICD (implantable cardioverter-defibrillator) in place- Primary High risk medication use 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 Congestive heart failure, unspecified HF chronicity, unspecified heart failure type H/O sick sinus syndrome Mixed hyperlipidemia Primary hypertension Unspecified essential hypertension Ischemic cardiomyopathy Other specified forms of chronic ischemic heart disease LBBB (left bundle branch block) Other left bundle branch block Paroxysmal atrial fibrillation (Multi) Atrial fibrillation RBBB S/P CABG x 4 Postsurgical aortocoronary bypass status BMI 33.0-33.9,adult Encounter for medication review and counseling Encounter to discuss treatment options Current every day smoker Mechanical complication of implantable cardioverter-defibrillator (ICD) documented in this encounter [facility] Work Phone: Evaluation note* Diagnosis Biventricular ICD (implantable cardioverter-defibrillator) in place- Primary Ischemic cardiomyopathy Other specified forms of chronic ischemic heart disease BMI 33.0-33.9,adult Current every day smoker Paroxysmal atrial fibrillation (Multi) Atrial fibrillation Atherosclerosis of [place] coronary artery of [place] heart without angina pectoris Ischemic cardiomyopathy- Primary Other specified forms of chronic ischemic heart disease Atherosclerosis of [place] coronary artery of [place] heart without angina pectoris Paroxysmal atrial fibrillation (Multi) Atrial fibrillation High risk medication use long-term current use of anticoagulant therapy Mixed hyperlipidemia Primary hypertension Unspecified essential hypertension BMI 35.0-35.9,adult Other specified diabetes mellitus without complication, with long-term current use of insulin Current every day smoker Biventricular ICD (implantable cardioverter-defibrillator) in place Biventricular ICD (implantable cardioverter-defibrillator) in place- Primary Ischemic cardiomyopathy Other specified forms of chronic ischemic heart disease 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 Primary hypertension Unspecified essential hypertension Mixed hyperlipidemia 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,adult superintendent terminal current use of anticoagulant therapy High risk medication use Paroxysmal atrial fibrillation (Multi) Atrial fibrillation Current every day smoker Biventricular ICD (implantable cardioverter-defibrillator) in place documented in this encounter [facility] Work Phone: Evaluation note* Diagnosis Type 2 diabetes mellitus with other circulatory complications- Primary Type 2 diabetes mellitus with other circulatory complications- Primary documented in this encounter [facility] HealthcareEvaluation note* Diagnosis Biventricular ICD (implantable cardioverter-defibrillator) in place- Primary Ischemic cardiomyopathy Other specified forms of chronic ischemic heart disease BMI 33.0-33.9,adult Current every day smoker Paroxysmal atrial fibrillation (Multi) Atrial fibrillation Atherosclerosis of [place] coronary artery of [place] heart without angina pectoris Ischemic cardiomyopathy- Primary Other specified forms of chronic ischemic heart disease Atherosclerosis of [place] coronary artery of [place] heart without angina pectoris Paroxysmal atrial fibrillation (Multi) Atrial fibrillation High risk medication use superintendent terminal current use of anticoagulant therapy Mixed hyperlipidemia Primary hypertension Unspecified essential hypertension BMI 35.0-35.9,adult Other specified diabetes mellitus without complication, with long-term current use of insulin Current every day smoker Biventricular ICD (implantable cardioverter-defibrillator) in place Biventricular ICD (implantable cardioverter-defibrillator) in place- Primary Ischemic cardiomyopathy Other specified forms of chronic ischemic heart disease 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 Primary hypertension Unspecified essential hypertension Mixed hyperlipidemia 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,adult long-term current use of anticoagulant therapy High risk medication use Paroxysmal atrial fibrillation (Multi) Atrial fibrillation Current every day smoker 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 Ischemic cardiomyopathy Other specified forms of chronic ischemic heart disease Status post angioplasty Postsurgical percutaneous transluminal coronary angioplasty status S/P CABG x 4 Postsurgical aortocoronary bypass status Paroxysmal atrial fibrillation (Multi) Atrial fibrillation Biventricular ICD (implantable cardioverter-defibrillator) in place High risk medication use Current every day smoker Other specified diabetes mellitus without complication, with long-term current use of insulin Congestive heart failure, unspecified HF chronicity, unspecified heart failure type BMI 32.0-32.9,adult Mixed hyperlipidemia ASHD (arteriosclerotic heart disease) Coronary atherosclerosis of unspecified type of vessel, [place] or graft documented in this encounter [facility] Work Phone: Evaluation note* Diagnosis Type 2 diabetes mellitus with other circulatory complications- Primary Type 2 diabetes mellitus with other circulatory complications- Primary Type 2 diabetes mellitus with other circulatory complications documented in this encounter [facility] HealthcareEvaluation note* Diagnosis Type 2 diabetes mellitus with other circulatory complications (HCC)- Primary Type 2 diabetes mellitus with other circulatory complications (HCC)- Primary Type 2 diabetes mellitus with other circulatory complications (HCC) Type 2 diabetes mellitus with other circulatory complications (HCC) documented in this encounter [facility] HealthcareHistory general Narrative - Reported* Type Description Date [...] LEFT HE ART Hospitalization History see above [place] Other History general Narrative - Reported* Type [...] LEFT HE ART Hospitalization History see above [place] Other History general Narrative - Reported* Type [...] LEFT HE ART Hospitalization History see above [place] Other History general Narrative - Reported* Type [...] w/o intervention 10/2022 Hospitalization History see above [place] Other History general Narrative - Reported* Type [...] w/o intervention 10/2022 Hospitalization History see above [place] Other Hisufjf general Narrative - Reported* Type Description Date [...] w/o intervention 10/2022 Hospitalization History see above [place] Other History general Narrative - Reported* Type [...] PCI/stent LCx 2013 Hospitalization History see above [place] Other History of Present illness Narrative* The [...] medication regimen. He denies medication side effects. [facility] [employer] Work Phone: History of Present illness Narrative* [...] medication regimen. He denies medication side effects. [place] Work Phone: History of Present illness Narrative* [...] medication regimen. He denies medication side effects. -[facility]aels DO Work Phone: History of Present illness Narrative* [...] s/p dual chamber pacemaker. Treatment options discussed. ActiViews decision tool. For upgrade to biventricular ICD. [...] are indications for biventricular device, pacemaker removal, Act[employer]Views decision tool, informed consent, Lovenox bridge, possibility [...] above. Patient and family appreciative of care. -[facility] [facility] DO Work Phone: Reason for referral (narrative)* Reason Referral for trigger finger Diagnosis 1 Trigger ring finger of right hand (M65.341) Referral Organization [facility] Referring Provider First Name Lee Referring Provider Last Name Rajesh Referring Provider Specialty Internal Me dicine Referred Organization [facility] Referred Provider Acacia Sierra Ref[place] Address [address] [place],[address] Referred Provider Specialty Orthopedic S urgery Referral Priority Routine General Notes Patient w/ trigger f marco, ring finger of right hand. This interferes w/ ADL and golf and he is requesting further treatment. [facility] [employer] Other Reason for referral (narrative)* Consultation (Routine) - Authorized Specialty Diagnoses / Procedures Referred By Chica chau Referred To Contact Cardiology Diagnoses Biventricular ICD (implantable cardioverter-defibrillator) in place Ischemic cardiomyopathy Procedures Follow Up In Cardiology Ivania Velazquez APRN-CNP [address] [facility] [place] [address] Jesus Posey DO [address] [place] [address] Referral ID Status Reason Start Date Expiration Date V isits Requested Visits Authorized [id number] Authorized 01/12/2023 01/12/2024 1 1 [facility] Work Phone: Reason for referral (narrative)No reason for referral [facility] Work Phone: Reason for visit Narrative* Imaging (Routine) - Pending Review Specialty Diagnoses / Procedures Referred By Chica chau Referred To Contact Radiology Diagnoses Paroxysmal atrial fibrillation (Multi) High risk medication use Procedures XR chest 2 views Jesus Posey DO [address] [facility] [address], [address] [place] [address] Phone: tel: fax: Referral ID Status Reason Start Date Expiration Date Visits Requested Visits Authorized [id number] Pending Review Perform Procedure 07/13/2023 07/12/2024 1 1 [facility] Work Phone: Reason for visit Narrative* Imaging (Routine) - Pending Review Specialty Diagnoses / Procedures Referred By Chica chau Referred To Contact Cardiology Diagnoses Biventricular ICD (implantable cardioverter-defibrillator) in place Procedures Cardiac Device Check - In Clinic Carmen Ha MD [address] [facility] [address], [address] [place] [address] Phone: tel: fax: Referral ID Status Reason Start Date Expiration Date Visits Requested Visits Authorized [id number] Pending Review Perform Procedure 12/03/2023 12/02/2024 1 1 [facility] Work Phone: Chief Complaint * LESLEY [...] usage. * He has known ASHD, remote DE, history of multivessel CABG x4 in 2018, [...] usage. * He has known ASHD, remote DE, history of multivessel CABG x4 in 2018, [...] for Visit Diabetes Elevated cholesterol HTN (hypertension) superintendent terminal (current) use of insulin ASHD (arteriosclerotic heart [...] specific antigen) Atrial fibrillation Elevated cholesterol Hypertension [id number] Type 2 diabetes mellitus with hyperglycemia ASHD (arteriosclerotic heart disease) Chief Complaint bowel issues facial swelling Reason for Visit Atrial fibrillation Elevated cholesterol Hypertension IBS (irritable bowel syndrome) [id number] Type 2 diabetes mellitus with hyperglycemia ASHD [...] 43am Type 2 diabetes mellitus with hyperglyce [facility] November 15, 2023 8:43am ASHD (arteriosclerotic heart disease) Au [facility] 2023 8:43am Atrial fibrillation 2024 8:54am Elevated cholesterol 2024 8:54am Hypertension 2024 8:54am IBS (irritable bowel syndrome) 2024 8:54am Intermittent lightheadedness January 312023 8:54am Type 2 diabetes mellitus wit h diabetic peripheral angiopathy without gangre 2024 8:54am Type 2 diabetes mellitus with hyperglyce farida 2024 8:54am ASHD (arteriosclerotic heart disease) No [facility] 2023 8:54am Chief Complaint Admit Date 3 month f/u May 03, 2024 10:10am Reason for Visit Admit Date Atrial fibrillation May 03, 2024 10:10am Elevated cholesterol May 03, 2024 10:10am Hypertension May 03, 2024 10:10am IBS (irritable bowel syndrome) May 03, 2024 10:10am Intermittent lightheadedness May 032024 10:10am Type 2 diabetes mellitus wit h diabetic peripheral angiopathy without gangre May 03, 2024 10:10am Type 2 diabetes mellitus with hyperglyce farida May 03, 2024 10:10am ASHD (arteriosclerotic heart disease) Fe bruary 2024 10:10am Chief Complaint Admit Date 3 month f/u May 03, 2024 10:10am high risk meds May 10, 2024 2:46pm high risk meds May 10, 2024 4:14pm Chief Complaint Admit Date 3 month f/u May 03, 2024 10:10am high risk meds May 10, 2024 2:46pm high risk meds May 10, 2024 4:14pm Referral Order May 17, 2024 9:26pm Chief Complaint Admit Date 3 month f/u May 03, 2024 10:10am high risk meds May 10, 2024 2:46pm high risk meds May 10, 2024 4:14pm Referral Order May 17, 2024 9:26pm afib high risk medication July 18 8:42am afib high risk medication July 18 5:29pm Chief Complaint Admit Date Amb Documentation October 09, 2024 2:03 pm Bump under right arm November 09, 2024 1 1:03am Chief Complaint Admit Date Amb Documentation October 09, 2024 2:03 pm Bump under right arm November 09, 2024 1 1:03am 4 month f/u December 04, 2024 10:50am Reason for Visit Admit Date Conjunctivitis November 09, 2024 11 :03am Intertriginous dermatitis associated wit h moisture November 09, 2024 11:03am Anemia December 04, 2024 10:50am Atrial fibrillation December 04, 2024 10:50am Elevated cholesterol December 04 10:50am Hypertension December 04, 2024 10:50am IBS (irritable bowel syndrome) December 04, 2024 10:50am Nicotine dependence, cigarettes, uncompl icated December 04, 2024 10:50am Type 2 diabetes mellitus wit h diabetic peripheral angiopathy without gangre December 04, 2024 10:50am Type 2 diabetes mellitus with hyperglyce farida December 04, 2024 10:50am ASHD (arteriosclerotic heart disease) Se ptember 2024 10:50am Advance Directives No Advanced Directives Records Found [...] use Procedures ECG 12 Lead Ivania Velazquez POCKET CUTTER-VIDEO GAME CREATOR [address] [place] [id number] Referral ID Status Reason Start Date Expiration Date V isits Requested Visits Authorized [id number] Authorized 09/14/2023 09/13/2024 1 1 Specialty Diagnoses / Procedures Referred By Contac t Referred To Contact Cardiology Diagnoses Ischemic cardiomyopathy Procedures Follow Up In Cardiology Ivania Velazquez POCKET CUTTER-VIDEO GAME CREATOR [address] [place] [id number] Referral ID Status Reason Start Date Expiration Date V isits Requested Visits Authorized [id number] Authorized 09/13/2023 09/12/2024 1 1 Specialty Diagnoses / Procedures Referred By Contac t Referred To Contact Diagnoses Paroxysmal atrial fibrillation (Multi) High risk medication use Procedures Complete Pulmonary Function Test Pre/Post Bronchodialator (Spirometry Pre/Post/DLCO/Lung Volumes) Jesus Posey DO [address], [address] [place] [address] Referral ID Status Reason Start Date Expiration Date V isits Requested Visits Authorized [id number] Pending Review 07/13/2023 07/12/2024 1 1 Specialty Diagnoses / Procedures Referred By Contac t Referred To Contact Radiology Diagnoses Paroxysmal atrial fibrillation (Multi) High risk medication use Procedures XR chest 2 views Jesus Posey, DO [address] [facility], [address] [place] [address] Referral ID Status Reason Start Date Expiration Date Visits Requested Visits Authorized [id number] Pending Review Perform Procedure 07/13/2023 07/12/2024 1 1 Specialty Diagnoses / Procedures Referred By Contac t Referred To Contact Cardiology Diagnoses 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 Procedures Follow Up In Cardiology Jesus Posey, DO [address] [facility] [address] [place] [address] Jesus Posey, DO [address] [facility] [address] [place] [address] Referral ID Status Reason Start Date Expiration Date V isits Requested Visits Authorized [id number] Authorized 07/13/2023 07/12/2024 1 1 Specialty Diagnoses / Procedures Referred By Contac t Referred To Contact Diagnoses Paroxysmal atrial fibrillation (Multi) Procedures ECG 12 Lead Jesus Posey, DO [address] [facility] [address], [address] [place] [address] Referral ID Status Reason Start Date Expiration Date V isits Requested Visits Authorized [id number] Authorized 07/13/2023 07/12/2024 1 1 Specialty Diagnoses / Procedures Referred By Contac t Referred To Contact Cardiology Diagnoses Ischemic cardiomyopathy Cardiac pacemaker in situ Procedures Cardiac Device Check - In Clinic Holli Vazquez, POCKET CUTTER-VIDEO GAME CREATOR [address] [facility] [address], [address] [place] [address] Referral ID Status Reason Start Date Expiration Date Visits Requested Visits Authorized [id number] Pending Review Perform Procedure 3 01/07/2024 1 1 Specialty Diagnoses / Procedures Referred By Contac t Referred To Contact Cardiology Diagnoses Shortness of breath Procedures Transthoracic Echo Complete CT ECHO TTHRC R-T 2D W/WOM-MODE COMPL SPEC&COLR D Carmen Ha MD [address] [address] Referral ID Status Reason Start Date Expiration Date Visits Requested Visits Authorized [id number] Pending Review Perform Procedure 05/21/2023 05/20/2024 1 1 Specialty Diagnoses / Procedures Referred By Contac t Referred To Contact Cardiology Diagnoses Biventricular ICD (implantable cardioverter-defibrillator) in place Procedures Cardiac Device Check - In Clinic Carmen Ha MD [address] [address] Referral ID Status Reason Start Date Expiration Date Visits Requested Visits Authorized [id number] Pending Review Perform Procedure 05/21/2023 05/20/2024 52 52 Specialty Diagnoses / Procedures Referred By Contac t Referred To Contact Cardiology Diagnoses Biventricular ICD (implantable cardioverter-defibrillator) in place Procedures Cardiac Device Check - Remote Carmen Ha MD [address] [address] Referral ID Status Reason Start Date Expiration Date Visits Requested Visits Authorized [id number] Pending Review Perform Procedure 05/21/2023 05/20/2024 52 52 Specialty Diagnoses / Procedures Referred By Contac t Referred To Contact Diagnoses LBBB (left bundle branch block) Procedures ECG 12 lead (Clinic Performed) Carmen Ha MD [address] [address] Referral ID Status Reason Start Date Expiration Date V isits Requested Visits Authorized [id number] Authorized 05/21/2023 05/20/2024 1 1 Specialty Diagnoses / Procedures Referred By Contac t Referred To Contact Radiology Diagnoses Cardiac pacemaker in situ Procedures XR chest 2 views Carmen Ha MD [address] [facility] [address], [address] [place] [address] Referral ID Status Reason Start Date Expiration Date Visits Requested Visits Authorized [id number] Authorized Perform Procedure 05/21/2023 05/20/2024 1 1 Additional Source Comments Care Teams (unrecognized sec tion and content) Team Status: Active Member Role Status Dates Lee Segovia DO Primary Care Provider Active Team Status: Active Member Role Status Dates Lee Segovia DO Primary Care Provider Active Start: October 09, 2024 Maris Gracia Attending Provider Active Start: October 09, 2024 Team Status: Inactive Member Role Status Dates Lee Segovia DO Primary Care Provider Active Start: November 09, 2024 End: November 09, 2024 Lee Segovia DO Attending Provider Active Sta rt: November 09, 2024 End: November 09, 2024 Team Status: Inactive Member Role Status Amina Segovia DO Primary Care Provide r, Attending Provider Active Start: May 03, 2024 End: May 03, 2024 Team Status: Inactive Member Role Status Amina Segovia DO Primary Care Provide r, Other Provider Active Start: May 10, 2024 End: May 10, 2024 Franck Posey DO Attending Provider Active S tart: May 10, 2024 End: May 10, 2024 Team Status: Active Member Role Status Amina Segovia DO Primary Care Provide r, Other Provider Active Start: May 10, 2024 Franck Posey DO Other Provider Active Start : May 10, 2024 Mark Campa MD Attending Provider Active Start: May 10, 2024 Team Status: Active Member Role Status Amina Segovia DO Primary Care Provide r, Attending Provider Active Start: May 17, 2024 Team Status: Inactive Member Role Status Amina Segovia DO Primary Care Provider Active Start: July 18, 2024 End: July 18, 2024 Franck Posey DO Attending Provider Active S tart: July 18, 2024 End: July 18, 2024 Team Status: Active Member Role Status Amina Segovia DO Primary Care Provider Active Start: July 18, 2024 Franck Posey DO Other Provider Active Start : July 18, 2024 Mark Campa MD Attending Provider Active Start: July 18, 2024 Team Status: Active Member Role Status Dates Lee Segovia DO Primary Care Provider Active Start: March 07, 2024 Marcella Olivo PA-C Attending Provider Active Sta rt: March 07, 2024 Team Status: Inactive Member Role Status Dates Lee Segovia DO Primary Care Provider Active Start: March 08, 2024 End: March 08, 2024 Zuly Lee RN Attending Provider Active Start: March 08, 2024 End: March 08, 2024 Team Status: Inactive Member Role Status Dates Lee Segovia DO Primary Care Provide r, Attending Provider Active Start: November 15, 2023 End: November 15, 2023 Team Status: Active Member Role Status Dates Lee Segovia DO Primary Care Provide r, Attending Provider Active Start: January 26, 2024 Team Status: Inactive Member Role Status Dates [...] March 24, 2023 End: March 24, 2023 Franck Posey DO Attending Provider Active S tart: March 24, 2023 End: March 24, 2023 Team Status: Inactive Member Role Status Dates Lee Segovia , Attending Provider Active Sta rt: April 14, 2023 End: April 14, 2023 Team Status: Inactive Member Role Status Dates Lee Segovia , DO Primary Care Provider Active Lesley Cooper , DO Attending Provider Active Team Status: Inactive Member Role Status Dates Lee Segovia , DO Primary Care Provider Active Franck Be Rocadon , DO Attending Provider Active Park Maintenance Technician Relationship Specialty Start Date End Date Lee Segovia, [address] [place] [id number] PCP - General 08/30/17 Lee Segovia, [address] [place] [id number] PCP - MMO Medicare Advantage PCP 07/20/22 Park Maintenance Technician Relationship Specialty Start Date End Date Ivania Velazquez APRN-VIDEO GAME CREATOR [address] [facility] [address], [address] [place] [address] PCP - MMO Medicare Advantage PCP 12/20/22 Lee Segovia DO [address] [place] [address] PCP - General Internal Medicine 02/24/23 Carmen Ha MD [address] [facility], [address] [place] [address] Assembly Line Leader Cardiology 05/21/23 Park Maintenance Technician Relationship Specialty Start Date End Date Ivania Velazquez APRN-VIDEO GAME CREATOR [address] [facility] [address], [address] [place] [address] PCP - MMO Medicare Advantage PCP 12/20/22 Lee Segovia DO [address] [place] [address] PCP - General Internal Medicine 02/24/23 Carmen Ha MD [address] [facility] [address], [address] [place] [address] Assembly Line Leader Cardiology 05/21/23 Park Maintenance Technician Relationship Specialty Start Date End Date Ivania Velazquez APRN-VIDEO GAME CREATOR [address] [facility] [address], [address] [place] [address] PCP - MMO Medicare Advantage PCP 12/20/22 Lee Segovia DO [address] [facility] [place] [address] PCP - General Internal Medicine 02/24/23 Carmen Ha MD [address] [facility] [address] [place], [place] [id number] Assembly Line Leader Cardiology 05/21/23 Park Maintenance Technician Relationship Specialty Start Date End Date Ivania Velazquez APRN-VIDEO GAME CREATOR [address] [facility], [address] [place] [address] PCP - MMO Medicare Advantage PCP 12/20/22 Lee Segovia DO [address] [facility] [place] [address] PCP - General Internal Medicine 02/24/23 Carmen Ha MD [address] [facility] [address], [address] [place] [address] Assembly Line Leader Cardiology 05/21/23 Park Maintenance Technician Relationship Specialty Start Date End Date Ivania Velazquez POCKET CUTTER-VIDEO GAME CREATOR [address] [facility] [address], [address] [place] [address] PCP - MMO Medicare Advantage PCP 12/20/22 Lee Segovia, [address] [facility] [address] [facility] [place] [address] PCP - General Internal Medicine 02/24/23 Carmen Ha MD [address] [facility], [address] [place] [address] Assembly Line Leader Cardiology 05/21/23 Park Maintenance Technician Relationship Specialty Start Date End Date Ivania Velazquez POCKET CUTTER-VIDEO GAME CREATOR [address] [facility] [address], [address] [place] [address] PCP - MMO Medicare Advantage PCP 12/20/22 Lee Segovia DO [address] [facility] [address] [place] [address] PCP - General Internal Medicine 02/24/23 Carmen Ha MD [address] [facility], [address] [place] [address] Assembly Line Leader Cardiology 05/21/23 Park Maintenance Technician Relationship Specialty Start Date End Date Ivania Velazquez, POCKET CUTTER-VIDEO GAME CREATOR [address] [facility] [address], [address] [place] [address] PCP - MMO Medicare Advantage PCP 12/20/22 Lee Segovia DO [address] [place] [address] PCP - General Internal Medicine 10/05/23 Carmen Ha MD [address] [facility], [address] [place] [address] Assembly Line Leader Cardiology 05/21/23 Park Maintenance Technician Relationship Specialty Start Date End Date Ivania Velazquez APRN-VIDEO GAME CREATOR [address] [facility], [address] [place] [address] PCP - MMO Medicare Advantage PCP 12/20/22 Lee Segovia DO [facility] [place] [address] PCP - General Internal Medicine 10/05/23 Carmen Ha MD [address] [facility] [address] [place] [address] Assembly Line Leader Cardiology 05/21/23 Park Maintenance Technician Relationship Specialty Start Date End Date Ivania Velazquez APRN-VIDEO GAME CREATOR [address], [address] [place] [address] PCP - MMO Medicare Advantage PCP 12/20/22 Lee Segovia DO [address], [address] [place] [address] PCP - General Internal Medicine 02/24/23 Carmen Ha MD [address] [facility] [address], [address] [place] [address] Assembly Line Leader Cardiology 05/21/23 Park Maintenance Technician Relationship Specialty Start Date End Date Ivania Velazquez APRN-VIDEO GAME CREATOR [address], [address] [place] [address] PCP - MMO Medicare Advantage PCP 12/20/22 Lee Segovia DO [address] [place] [address] PCP - General Internal Medicine 10/05/23 Carmen Ha MD [address] [facility], [address] [place] [address] Assembly Line Leader Cardiology 05/21/23 Park Maintenance Technician Relationship Specialty Start Date End Date Lee Segovia MD [address] [place] [address] PCP - General Internal Medicine 09/01/23 Park Maintenance Technician Relationship Specialty Start Date End Date Ivania Velazquez APRN-VIDEO GAME CREATOR [address] [facility] [address], [address] [place] [address] PCP - MMO Medicare Advantage PCP 12/20/22 Lee Segovia DO [address] [place] [address] PCP - General Internal Medicine 10/05/23 Carmen Ha MD [address] [facility], [address] [place] [address] Assembly Line Leader Cardiology 05/21/23 Park Maintenance Technician Relationship Specialty Start Date End Date Ivania Velazquez APRN-VIDEO GAME CREATOR [address] [facility] [address], [address] [place] [address] PCP - MMO Medicare Advantage PCP 12/20/22 Lee Segovia DO [address] [place] [address] PCP - General Internal Medicine 10/05/23 Carmen Ha MD [address] [facility] [address], [address] [place], [place] [address] Assembly Line Leader Cardiology 05/21/23 Park Maintenance Technician Relationship Specialty Start Date End Date Lee Segovia MD [address] [place] [facility] [place] [address] PCP - General Internal Medicine 09/01/23 Park Maintenance Technician Relationship Specialty Start Date End Date Lee Segovia MD [address] [place] [facility] [place] [address] PCP - General Internal Medicine 09/01/23 Park Maintenance Technician Relationship Specialty Start Date End Date Lee Segovia MD [address] [place] [facility] [place] [address] PCP - General Internal Medicine 09/01/23 Park Maintenance Technician Relationship Specialty Start Date End Date Lee Segovia MD [address] [place] [facility] [address] PCP - General Internal Medicine 09/01/23 Park Maintenance Technician Relationship Specialty Start Date End Date Lee Segovia MD [address] [place] [facility] [place] [address] PCP - General Internal Medicine 09/01/23 Lee Segovia MD [address] [place] [facility] [place] [address] Referring Physician Internal Medicine 06/08/24 Park Maintenance Technician Relationship Specialty Start Date End Date Lee Segovia MD [address] [place] [address] PCP - General Internal Medicine 09/01/23 Lee Segovia MD [address] [place] [address] Referring Physician Internal Medicine 06/08/24 Park Maintenance Technician Relationship Specialty Start Date End Date Lee Segovia MD [address] [place] [address] PCP - General Internal Medicine 09/01/23 Lee Segovia MD [address] [place] [address] Referring Physician Internal Medicine 06/08/24 Park Maintenance Technician Relationship Specialty Start Date End Date Lee Segovia DO [address] [place] [address] PCP - General Internal Medicine 10/05/23 Carmen Ha MD [address] [facility], [address] [address] Assembly Line Leader Electrophysiology 05/21/23 Park Maintenance Technician Relationship Specialty Start Date End Date Lee Segovia DO [address] [place] [address] PCP - General Internal Medicine 10/05/23 Carmen Ha MD [address] [facility], [facility] [address] [place] [address] Assembly Line Leader Electrophysiology 05/21/23 Park Maintenance Technician Relationship Specialty Start Date End Date Lee Segovia MD [address] [place] [address] PCP - General Internal Medicine 09/01/23 Lee Segovia MD [address] [place] [address] Referring Physician Internal Medicine 06/08/24 Park Maintenance Technician Relationship Specialty Start Date End Date Lee Segovia MD [address] [place] [address] PCP - General Internal Medicine 09/01/23 Lee Segovia MD [address] [place] [address] Referring Physician Internal Medicine 06/08/24 Park Maintenance Technician Relationship Specialty Start Date End Date Lee Segovia DO [address] [place] [address] PCP - General Internal Medicine 10/05/23 Carmen Ha MD [address] [facility], [facility] [address] [place] [address] Assembly Line Leader Electrophysiology 05/21/23 Park Maintenance Technician Relationship Specialty Start Date End Date Lee Segovia DO [address] [place] [address] PCP - General Internal Medicine 09/01/23 Lee Segovia DO [address] [place] [address] Referring Physician Internal Medicine 06/08/24 Park Maintenance Technician Relationship Specialty Start Date End Date Lee Segovia DO [address] [place] [address] PCP - General Internal Medicine 09/01/23 Nany Howe, DO [address] [facility] [address] [place] [address] PCP - Pineda ONOFRE 09/19/24 Lee Segovia DO [address] [place] [address] Referring Physician Internal Medicine 06/08/24 Team Status: Active Member Role Status Dates Lee Segovia DO Primary Care Provider Active Start: November 30, 2024 Lee Segovia DO Attending Provider Active Sta rt: November 30, 2024 Team Status: Inactive Member Role Status Dates Lee Segovia DO Primary Care Provider Active Start: December 04, 2024 End: December 04, 2024 Lee Segovia DO Attending Provider Active Sta rt: December 04, 2024 End: December 04, 2024 Goals (unrecognized section and content) Goals may [...] (Clinic Performed) Carmen Ha MD [address] [facility], [address] [address] Referral ID Status Reason Start Date Expiration Date V isits Requested Visits Authorized [id number] Authorized 05/21/2023 05/20/2024 1 1 Specialty Diagnoses / Procedures Referred By Contac t Referred To Contact Cardiology Diagnoses Ischemic cardiomyopathy Cardiac pacemaker in situ Procedures Cardiac Device Check - In Clinic Holli Vazquez, POCKET CUTTER-VIDEO GAME CREATOR [address] [facility], [facility] [address] [place] [address] Referral ID Status Reason Start Date Expiration Date Visits Requested Visits Authorized [id number] Pending Review Perform Procedure 3 01/07/2024 1 1 Specialty Diagnoses / Procedures Referred By Contac t Referred To Contact Radiology Diagnoses Cardiac pacemaker in situ Procedures XR chest 2 views Carmen Ha MD [address] [facility], [facility] [address] [place] [address] Referral ID Status Reason Start Date Expiration Date Visits Requested Visits Authorized [id number] Authorized Perform Procedure 05/21/2023 05/20/2024 1 1 Reason Comments Follow-up 6 months Specialty Diagnoses / Procedures Referred By Contac t Referred To Contact Cardiology Diagnoses Biventricular ICD (implantable cardioverter-defibrillator) in place Ischemic cardiomyopathy Procedures Follow Up In Cardiology Ivania Velazquez, POCKET CUTTER-VIDEO GAME CREATOR [address] [facility] [address], [address] [place] [address] Jesus Posey DO [address] [facility] [address], [address] [place] [address] Referral ID Status Reason Start Date Expiration Date V isits Requested Visits Authorized [id number] Authorized 01/12/2023 01/12/2024 1 1 Specialty Diagnoses / Procedures Referred By Contac t Referred To Contact Cardiology Diagnoses Shortness of breath Procedures Transthoracic Echo Complete CT ECHO TTHRC R-T 2D W/WOM-MODE COMPL SPEC&COLR D Carmen Ha MD [address] [facility], [address] [place] [address] Referral ID Status Reason Start Date Expiration Date Visits Requested Visits Authorized [id number] Authorized Perform Procedure 05/21/2023 05/20/2024 1 1 Reason Comments Follow-up 6m Specialty Diagnoses / Procedures Referred By Contac t Referred To Contact Cardiology Diagnoses 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 Procedures Follow Up In Cardiology Jesus Posey, DO [address] [facility] [address], [address] [address] Phone: tel: fax: Jesus Posey, DO [address] [facility] [address], [address] [place] [address] Phone: tel: fax: Referral ID Status Reason Start Date Expiration Date V isits Requested Visits Authorized [id number] Authorized 07/13/2023 07/12/2024 1 1 Reason Comments Follow-up 6m Specialty Diagnoses / Procedures Referred By Contac t Referred To Contact Cardiology Diagnoses Atherosclerosis of [place] coronary artery of [place] heart without angina pectoris Procedures Follow Up In Cardiology KalpeshJesus David, DO [address] [facility] [address], [address] [place] [address] Ivania Velazquez, POCKET CUTTER-VIDEO GAME CREATOR [address] [facility] [address], [address] [address] Referral ID Status Reason Start Date Expiration Date V isits Requested Visits Authorized [id number] Authorized 03/10/2023 03/09/2024 1 1 Reason Comments Follow-up 2wk Specialty Diagnoses / Procedures Referred By Contac t Referred To Contact Cardiology Diagnoses Ischemic cardiomyopathy Procedures Follow Up In Cardiology Ivania Velazquez, POCKET CUTTER-VIDEO GAME CREATOR [address] [facility] [address], [address] [place] [address] Referral ID Status Reason Start Date Expiration Date V isits Requested Visits Authorized [id number] Authorized 09/13/2023 09/12/2024 1 1 Reason Comments Follow-up Pt is here today fol lowing up after 6 months with device check Specialty Diagnoses / Procedures Referred By Contac t Referred To Contact Cardiology Diagnoses Biventricular ICD (implantable cardioverter-defibrillator) in place Procedures Cardiac Device Check - In Clinic Carmen Ha MD [address] [facility], [facility] [address] [place] [address] Referral ID Status Reason Start Date Expiration Date Visits Requested Visits Authorized [id number] Pending Review Perform Procedure 05/21/2023 05/20/2024 52 52 Reason Comments Ear Problem Clean ears Reason Comments New patient Diabetes only Specialty Diagnoses / Procedures Referred By Contac t Referred To Contact Family Medicine Diagnoses Type 2 diabetes mellitus with hyperglycemia (CMS/HCC) long-term (current) use of insulin (CMS/HCC) Atherosclerotic heart disease of [place] coronary artery without angina pectoris (CMS/HCC) Essential (primary) hypertension (CMS/HCC) Procedures CT UNLISTED EVALUATION AND MANAGEMENT SERVICE [facility] Referral Center [address] [place] [place], [address] Nany Howe M, DO [address] [place] [address] Phone: tel: fax: Referral ID Status Reason Start Date Expiration Date Visits Re quested Visits Authorized [id number] Closed 05/18/2024 11/14/2024 1 1 Reason Comments Seizures Reason Comments Follow-up Patient here for a 6 month follow up with device check Specialty Diagnoses / Procedures Referred By Contmt t Referred To Contact Diagnoses Biventricular ICD (implantable cardioverter-defibrillator) in place Procedures ECG 12 lead (Clinic Performed) Carmen Ha MD [address] [facility], [facility] [address] [place] [address] Phone: tel: fax: Referral ID Status Reason Start Date Expiration Date V isits Requested Visits Authorized [id number] Authorized 06/20/2024 06/20/2025 1 1 Reason Comments Diabetes Reason Comments Follow-up 6 months for ischemi c cardiomyopathy Specialty Diagnoses / Procedures Referred By Contac t Referred To Contact Cardiology Diagnoses Ischemic cardiomyopathy Procedures Follow Up In Cardiology Jesus Posey, DO [address] [facility] [address], [address] [place] [address] Phone: tel: fax: Jesus Posey, DO [address] [place] [address] Phone: tel: fax: Referral ID Status Reason Start Date Expiration Date V isits Requested Visits Authorized [id number] Authorized 01/12/2024 01/11/2025 1 1 (unrecognized sect ion and content) No Status Records FoundNo Status Records FoundNo Status Records FoundNo Status Records FoundNo Status Records FoundNo Status Records FoundNo Status Records FoundNo Status Records FoundNo Status Records FoundNo Status Records Found INFORMATION SOURCE (unrecogn ized section and content) DATE CREATED AUTHOR 08/29/2022 [facility] DATE CREATED AUTHOR AUTHOR'S ORGANIZ ATION 11/02/2022 [facility] DATE CREATED AUTHOR AUTHOR'S ORGANIZ ATION 12/01/2022 [facility] DATE CREATED AUTHOR AUTHOR'S ORGANIZ ATION 01/09/2023 [facility] DATE CREATED AUTHOR AUTHOR'S ORGANIZ ATION 05/24/2024 [facility] DATE CREATED AUTHOR AUTHOR'S ORGANIZ ATION 06/24/2024 [facility] DATE CREATED AUTHOR AUTHOR'S ORGANIZ ATION 07/29/2024 [facility] DATE CREATED AUTHOR AUTHOR'S ORGANIZ ATION 08/02/2024 [facility] DATE CREATED AUTHOR AUTHOR'S ORGANIZ ATION 11/30/2024 [facility] DATE CREATED AUTHOR AUTHOR'S ORGANIZ ATION 12/31/2024 [facility] FOR RECORDS PERTAINING TO PATIENTS WHO ARE [...] BE BASED ON THE PRIMARY CLINICAL RECORDS. [facility]. provides no warranty or guarantee of the accuracy or completeness of information in this document.
--- NOTE | 2025-01-01 12:56 | CT_ITS ---
The [address] [address] Patient Name: LESLEY QUINTERO MRN: [id number] date: 1955 Sex: M Assigned Patient Location: CT Current Patient Location: CT Accession/Order Number: [id number] Exam Date: 01/01/2025 13:03 Report Date: 01/01/2025 14:12 At the request of: ROCIO SEGOVIA DO Procedure: CT lung screening low-dose CT CHEST WITHOUT CONTRAST, LOW DOSE SCREENING: CLINICAL DATA: A 69-year old current smoker, smoking for 47 pack-years. COMPARISON: None TECHNIQUE: Noncontrast axial CT scan images of the chest were obtained under the low dose screening CT protocol. Coronal and sagittal reconstructed images were also submitted. FINDINGS: Mediastinum : Suboptimal evaluation due to low-dose technique. Thoracic aorta appears normal in caliber. Pulmonary trunk appears nondilated. No pericardial effusion. No lymphadenopathy. The esophagus is grossly unremarkable. Lungs: No focal consolidation, pneumothorax or pleural effusion. Trachea and distal airways appear patent. Diffuse bronchial wall thickening. Mild lung scarring. Mild reticular changes with emphysema. Tree-in-bud nodule right lower lobe. No suspicious noncalcified pulmonary nodule or mass. Upper abdomen: No acute findings. Cholelithiasis. Bony thorax and chest wall: Soft tissues surrounding the chest wall demonstrate no acute findings. Osseous structures demonstrate degenerative change. Sternotomy wires. CT/CT lung screening low-dose IMPRESSION: NO SUSPICIOUS PULMONARY NODULE OR MASS. LUNG - RADS Version 1.0 Assessment: Category 1, Negative (No nodules and definitely benign nodules). Management: Continue annual lung screening with LDCT in 12 months. Impression dictated by: Faustino Neal Jr., D.O. 01/01/2025 2:12 PM Dictation Location: [place] [address] Electronically authenticated by: [id number] Y Date: 01/01/2025 14:12
== END 2025-01-01 12:46 | disposition home or self-care (01) ==
LOC: CT 12:45
PROVIDERS: PCP Internal Medicine; Visit Provider Internal Medicine
DX: F17.210 Nicotine dependence, cigarettes, uncomplicated (principal)
CPT/HCPCS: 71271

== ENCOUNTER 2025-01-20 | Outpatient (RCR) | payer MEDICARE, SELFPAY | END 2025-02-18 23:59 | disposition home or self-care (01) | LOC: MM | PROVIDERS: PCP Internal Medicine; Visit Provider Internal Medicine | DX: Z51.81 Encounter for therapeutic drug level monitoring (principal); Z79.01 Long term (current) use of anticoagulants ==

== ENCOUNTER 2025-02-02 08:57 | Outpatient (OUT) | payer MEDICARE, SELFPAY ==
--- OUTSIDE RECORDS SUMMARY | 2025-01-24 10:31 | XMS_ITS | Continuity of Care Document ---
Author Organization [facility] Address [address] [place] [address] Phone Care Team Providers Care Business Systems Lead Name Role Phone Lee Mena DO Primary Care Provider Lee Mena DO Attending Provider [phone] Franck Posey DO Attending Provider Care Teams Patient Care Team Team Status: Active Member Role/Relationship Status Dates Lee Mena DO Primary Care Provider Active Visit Care Team Team Status: Inactive Member Role/Relationship Status Dates Lee Mena DO Primary Care Provider Active Start: November 09, 2024 End: November 09chase Mena DOAttending ProviderActiveStart: November 09, 2024 End: November 09, 2024 Visit Care Team Team Status: Active Member Role/Relationship Status Dates Lee Mena DO Primary Care Provider Active Start: November 30, 2024 Apolonia Hawkins ProviderActiveStart: November 30, 2024 Visit Care Team Team Status: Inactive Member Role/Relationship Status Dates Lee Mena DO Primary Care Provider Active Start: December 04, 2024 End: December 04Apolonia Rowley ProviderActiveStart: December 04, 2024 End: December 04, 2024 Visit Care Team Team Status: Inactive Member Role/Relationship Status Dates Lee Mena DO Primary Care Provider Active Start: January 10, 2025 End: January 10, 2025W Be Kalpesh , DOAttending ProviderActiveStart: January 10, 2025 End: January 10, 2025 Patient Care Team Team Status: Inactive Member Role/Relationship Status Dates Lee Mena DO Primary Care Provider Active Start: January 24, 2025 End: January 24chase Mena DOAttazael ProviderActiveStart: January 24, 2025 End: January 24, 2025 Chief Complaint and Reason for Visit Chief Complaint Admit Date Bump under right arm November 09, 2024 1 1:03am 4 month f/u December 04, 2024 10:50am I48.0 January 10, 2025 1 2:18pm Rash Spreading January 24, 2025 2 :43pm Reason for Visit Admit Date Conjunctivitis November 09, 2024 11 :03am Intertriginous dermatitis associated wit h moisture November 09, 2024 11:03am Atrial fibrillation December 04, 2024 10:50am Biventricular cardiac pacemaker in situ December 04, 2024 10:50am Chronic HFrEF (heart failure with reduced ejection fraction) December 04, 2024 10:50am Elevated cholesterol December 04 10:50am Family history of pancreatic cancer Sept emb2024 10:50am Hypertension December 04, 2024 10:50am IBS (irritable bowel syndrome) December 04, 2024 10:50am Ischemic cardiomyopathy December 04, 2024 10:50am Nicotine dependence, cigarettes, uncompl icated December 04, 2024 10:50am Type 2 diabetes mellitus wit h diabetic peripheral angiopathy without gangre December 04, 2024 10:50am Type 2 diabetes mellitus with hyperglyce farida December 04, 2024 10:50am Allergies, Adverse Reactions, Alerts Allergen Type Severity Reaction Last Updated Verified Status Comments No Known Allergies Allergy Unknown January 24, 2025 3:07pmYesActiveHas had Albuterol before. Social History Smoking Status Status Start Date End Date Date of Observa tion Smokes tobacco daily (finding) August 08, 2024 10:13am Observation Status Observation Response Date of Response Legal Sex [facility] (finding) [facility] Family History Relationship Condition Age at Onset Recorded Date/T lynn sister Malignant neoplasm of ovary Unknown motherMalignant neoplasm of boneUnknownDeceasedUnknownfatherHistory of heart surgeryUnknownMyocardial infarctionUnknownType 2 diabetes mellitusUnknown DeceasedUnknownbrotherMalignant neoplasm of pancreasUnknownfatherHypertension UnknownHeart diseaseUnknownDeceasedUnknowngrandparentDeceasedUnknowngrandparent DeceasedUnknowngrandparentDeceasedUnknowngrandparentDeceasedUnknownmother DeceasedUnknownMalignant neoplasmUnknownsisterHistory of ovarian cancerUnknown Malignant neoplasmUnknown Problems Active Problems Problem Diagnosis/Recorded Date Onset Date Status C omments Intermittent lightheadedness 2024 9:38am Un known Active Medicare annual wellness visit, subsequentMay 2024 10:13amUnknownActive Screening PSA (prostate specific antigen)August 05, 2024 10:14amUnknownActivePSA: 0.32 - 07/2024Type 2 diabetes mellitus with hyperglycemiaMay 2023 9:14am UnknownActiveNicotine dependence, cigarettes, uncomplicatedFebruary 2023 10:35amUnknownActivePFT: FEV1/FVC 77%, TLC 95%, DLCO 86% - 04/2024,LDCT w/o suspicious nodules: 12/2024Type 2 diabetes mellitus with diabetic polyneuropathy May 01, 2023 10:35amUnknownActiveCellulitis, faceAugust 2023 8:15am UnknownActiveElevated cholesterolFebruary 2023 7:53amUnknownActiveAnemia August 08, 2024 9:40amUnknownActiveUnstable angina pectorisJune 2017 11:25amUnknownActiveSick sinus syndromeOctober 2020 4:25pmUnknownActive AICD/BIV pacemakerAtrial fibrillationAugust 2023 8:25pmUnknownActive Complete heart blockMarch 2018 9:43amUnknownActiveDiarrheaMay 2024 4:45pmUnknownActiveIschemic cardiomyopathyFebruary 2023 10:35amUnknown ActiveChronic HFrEF (heart failure with reduced ejection fraction)May 01, 2023 10:34amUnknownActiveEcho: LVEF 40%, LAE, normal valves - 12/2020,LHC: LVEF 35%, 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, DIESEL MOTOR MECHANIC LCx, patent L-LAD - 11/2022 (medical therapy),Echo: LVEF 30-35% - 05/2023,BiV ICD - 2022Seizure disorderJuly 2024 1:05pmUnknown ActiveFamily history of pancreatic cancerSeptember 2024 10:43amUnknown ActiveType 2 diabetes mellitus with diabetic peripheral angiopathy without gangrene, with long-term current use of insulinFebruary 2023 10:35am UnknownActiveH/O coronary artery bypass surgeryOctober 2020 4:25pmUnknown ActiveCarotid stenosis, rightDecember 2023 4:49pmUnknownActiveCTA: occluded right ICA - 02/2024Transient cerebral ischemiaNovember 2016 11:58amUnknownActiveHypertensionAugust 2023 8:23pmUnknownActiveIBS (irritable bowel syndrome)October 29, 2023 11:58amUnknownActiveASHD (arteriosclerotic heart disease)September 03, 2017 11:25amUnknownActive Biventricular cardiac pacemaker in situSeptember 2024 7:47pmUnknownActive Inactive/Resolved Problems Problem Diagnosis/Recorded Date Onset Date Status C omments CAD (coronary artery disease) June 17, 2021 12:51am Unk nown Resolved S/P CABG x 4June 2019 12:17pmUnknownResolvedParoxysmal atrial fibrillation with RVROctober 2020 4:26pmUnknownResolvedChest painApril 2017 1:01am UnknownResolved Medications Medication Status Dose Units Route Directions Qty Days Refills S tart Date Stop Date End Date Reason(s) Instructions Adherence Nitroglycerin 0.4 mg tablet, sublingual Discontinued 0 .ROUTE.PHNJBFC03844Xmbap 2023 1:37pmFebruary 2024 1:01pmDISSOLVE 1 TABLET UNDER THE TONGUE NEEDED FOR CHEST PAINInsulin Detemir U-100 (Levemir Flexpen) 100 unit/mL (3 mL) insulin mbyAlxzptipibyr05JGGQZSSKUVTbrcu dailyMay 2023 9:50amAugust 2023 8:03amInsulin Lispro (Humalog Kwikpen Insulin) 100 unit/mL insulin xeiXsiuugjuaqfi1dcdmbyp scale doseSUBCUTJuly 2023 1:09pmAugust 2023 8:51bd97-864 - 0 131-180 - 4 181-240 - 6 241-300 - 8 301-350 - 10Metformin 850 mg tabletDiscontinued0.ROUTE.TFTOYGM0080Reti 2023 8:35amAugust 2023 7:47amTAKE 1 TABLET TWICE A DAYMirtazapine 30 mg tablet Discontinued0.ROUTE.AVBJLYD515Sebria 2023 6:39amFebruary 2024 7:43am TAKE 1 TABLET DAILY AT BEDTIMEPen Needle, Diabetic (Bd Ultra-Fine Micro Pen Needle) 32 gauge x 1/4 needleDiscontinued0.Jiktc3752Yqkxifaxl 2nd, 2024 11:00pm November 23, 2023 11:45amType 2 diabetes mellitus with diabetic peripheral angiopathy without gangrene [facility] (current) use of insulinuse three times daily as directedPen Needle, Diabetic (Bd Ultra-Fine Micro Pen Needle) 32 gauge x 1/4 needleDiscontinued0 .Rhehd7147Gkvvnojvp 3rd, 2024 11:45amFebruary 2024 1:01pmType 2 diabetes mellitus with diabetic peripheral angiopathy without gangrene [facility] (current) use of insulinuse three times daily as directedFamotidine 20 mg tabletDiscontinued0.ROUTE.CPWMTUV4532Qibhcvh 2023 9:47amFebruary 2024 1:01pmTAKE 1 TABLET TWICE A DAYInsulin Detemir U-100 (Levemir Flexpen) 100 unit/mL (3 mL) insulin lymXklajcaexpbh58EJHJFTSNDYLqcty eegll004Vnwputi 2023 9:30amOctober 2023 9:31amInsulin Detemir U-100 (Levemir Flexpen) 100 unit/mL (3 mL) insulin fokIoqwhwedbffh77EAFGGFAODLOnncv xbgdt759Qzgujao 7th, 2024 9:31amNovemb2023 3:24pmInsulin Lispro (Humalog Kwikpen Insulin) 100 unit/mL insulin musDewfighawyld5lddvzoh scale doseSUBCUTUse as Msxzbnjt02Chikhwk 8th, 2024 9:14amNovember 2023 9:57xz56-510 - 0 131-180 - 4 181-240 - 8 241-300 - 10 301-350 - 12 351-400 - 16 > 400 - 20Insulin Detemir U-100 (Levemir Flexpen) 100 unit/mL (3 mL) insulin pen Dsaazyypctuf92FKYPXVHERMBukhm wcbad86487Lhxvayvf2023 3:23pmNov2023 10:13pmInsulin Detemir U-100 (Levemir Flexpen) 100 unit/mL (3 mL) insulin xydEhicwoejkzyq52QXELQTCUKVLkfxg pyvpd54526Jwmceqtl2023 10:13pmNov2023 3:50pmInsulin Glargine (Lantus Solostar U-100 Insulin) 100 unit/mL (3 mL) insulin nhpFyfvgojyiubv54ADHWLWYHTAWqnzn lswcf55952Thclylkv2023 12:00amFebruary 2024 1:01pmBlood-Glucose Sensor (Freestyle Sarah 2 Plus Sensor) deviceDiscontinued0.Eghzh69CgdrmoarFebruary 14, 2024 12:00amNovemb2023 8:42amAs directedFlash Glucose Sensor (Freestyle Sarah 2 Sensor) kit Discontinued0.ROUTE.BPGBFSI439Mozhdcea2023 8:42amFebruary 2024 11:23amUSE DIRECTED to test BLOOD SUGAR 4-6 times DAILYRopinirole 0.5 mg tabletDiscontinued0.ROUTE.YESQFYC578Srretidi 27th, 2024 7:15amFebruary 2024 1:01pmTAKE 1 TABLET AT BEDTIMEMirtazapine 30 mg tabletDiscontinued0.ROUTE .XSTYXGM184Sdrwiole2024 7:43amFebruary 2024 1:01pmTAKE 1 TABLET DAILY AT BEDTIMEFlash Glucose Sensor (Freestyle Sarah 2 Sensor) kitActive0.ROUTE .ZTFUNLZ985Nrzgvezr 2024 11:23amUSE DIRECTED to test BLOOD SUGAR 4-6 times DAILYFamotidine 20 mg txsxabHwecwk21WSEOVxqdg sciei257008Sxqgdwpo 2024 12:56pmComplies with drug therapyFurosemide 20 mg uyuxzgMsmybgcxhgsu16PNAX .YGX66752Iqljrmfl 2024 12:56pmMay 2024 12:29pmHyoscyamine Sulfate 0.125 mg tablet, sublingualDiscontinued0.125MGSUBLINGUALdaily as needed for abdominal cramping, ruidumdw28311Fxkgnslb 2024 12:57pmMay 2024 9:23amInsulin Glargine (Lantus Solostar U-100 Insulin) 100 unit/mL (3 mL) insulin csrXqnkeojnvtbz72QNGVMZILGZEbzow pyywk65190Mmsjimye 2024 12:57pm December 04, 2024 10:02amInsulin Lispro (Humalog Kwikpen Insulin) 100 unit/mL insulin lbpUjvxtvazgzmn9fbowiia scale doseSUBCUTUse as Icwbpomm76928Nrwdcolk 2024 12:57pmFebruary 2024 1:03so23-302 - 0 131-180 - 8 181-240 - 12 241-300 - 16 301-350 - 20 351-400 - 24 > 400 - 28Isosorbide Mononitrate 30 mg tablet extended release 24 qnFwkpch71GKKL Every zrvbyao48250Wryejbyw 2024 12:58pmComplies with drug therapyLosartan 25 mg gjlqoqYhinlh73YUZMOvsfd87751Puigabgy 2024 12:58pmComplies with drug therapyMirtazapine 30 mg duqqnbFlqhei21NMQCNvdzv at jlnkzfp19955Pbcwnumj 2024 12:59pmComplies with drug therapyNitroglycerin 0.4 mg tablet, sublingual Active0.4MGSUBLINGUALOnce as needed for chest hnxe568300Onkkekqh 2024 12:59pmComplies with drug therapyPen Needle, Diabetic (Bd Ultra-Fine Micro Pen Needle) 32 gauge x 1/4 needleActive0.Kuqgt1584Cgabdrzu 2024 12:59pmType 2 diabetes mellitus with diabetic peripheral angiopathy without gangrene 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 Maximum amount per day is estimated to be 60uComplies with drug therapy Furosemide 20 mg hvtypeCilmsglikvjs96IOOX.ICJ04469Yaq 2024 12:28pmMay 2024 9:27amCyanocobalamin (Vitamin B-12) 1,000 mcg nlkoitcFhxehs3602HSM YMVSIZDZUYFriek54439Zjj 20th, 2025 11:00pmComplies with drug therapy Polysaccharide Iron Complex (Ferrex 150) 150 mg iron hglcaekUdparhkpwskb947AWNT Prexh73999Gkk2024 11:00pmMay 2024 1:48pmPolysaccharide Iron Complex (Ferrex 150) 150 mg iron dosjjlaWwspnl485NKMQTzset76528Gmf 22nd, 2025 1:48pm Complies with drug therapyMetformin 500 mg YotndsEhytaulmflxd975VDOHXtmhh daily February 18, 2017 12:00amSept2017 2:10pmCitalopram 40 mg Tablet Dupznjdguhyp32DXXXFnvjpgzGblufvmo 30th, 2017 12:00amJune 2019 12:05pm Pravastatin 40 mg NzcpytJfqrpwchxrsw07JEQASyaksoyMuevhrpe 30th, 2017 12:00am February 19, 2017 11:09amLevetiracetam (Keppra) 500 mg NvggnoBeaczdzkhlkx392LJ POTwice dailyFebruary 18, 2017 12:00amDece2016 11:14amAspirin (Aspir-81) 81 mg Tablet,Delayed Release (Dr/Ec)Wwfehqzozvtg48GNMPSdhteHkzgkwzc 30th, 2017 12:00Bostonugu2022 7:24amRanitidine Hcl (Zantac 75) 75 mg HubqkjOxnsbkzcibao567YCNEBxura dailyFebruary 18, 2017 12:00[facility]2017 2:22pmRopinirole 0.5 mg TabletDiscontinued0.5MGPOBedtimeFebruary 18, 2017 12:00amApril 2017 10:59pmNitroglycerin 0.4 mg Tablet, Sublingual Discontinued0.4WASVEZYBMRBGM8G as needed for CHEST PAINFebruary 18, 2017 12:00[facility]2017 2:26pmLisinopril 5 mg TabletDiscontinued0.5TABPO 2016 12:00pr2017 10:58pmGabapentin 100 mg DwsdeczFmbeidlkzowm286DKWWSnmjl times dailyFebruary 18, 2017 12:00amApr2017 11:00pmDiazepam 5 mg PdfnyxSjggnajiyvci1VISDVikqxaoLergzirg 30th, 2017 12:00amApril 2017 10:57pmMetoprolol Tartrate 25 mg TabletDiscontinued 12.2NPFHX69OUamgdnea 30th, 2017 12:00[facility]2017 2:06pmTicagrelor (Brilinta) 90 mg VteiqmUgysgerxgkej66KELHBwdsk dailyFebruary 18, 2017 12:00am June 30, 2017 10:59pmAtorvastatin 40 mg EdvaokRiffftxrnxnh94EWGMCknmo evening 42331CstnslaqFebruary 19, 2017 12:00amApril 2017 1:36pmLevetiracetam 500 mg FyrkquRqkhtdffbdjt032SHZXChqcy fzeep04733Xknqfiot 1st, 2017 12:00amMa2017 10:56amLevetiracetam 750 mg NxhxxuCjtmsnhtiojq286WDLKZScnqx dailySc2017 11:00pmJuly 2024 1:06pmNitroglycerin 0.2 mg/hr patch 24 hour Discontinued0.2mg/hrTOPICALDailyAugust 31, 2017 11:00pmJun2017 10:57am Nitroglycerin (Nitro-Dur) 0.4 mg/hr patch 24 qooaEniwidyrdtbw0USGYDFLQNSPONTR Qoivj394Rjiq 2017 11:00pmSept2017 2:12pmallow nitrate-free interval of approx. 10-12 hrs per 24-hour periodMetoprolol Succinate 25 mg Tablet Extended Release 24 BlLvriasbiayqh44.5MGPODailySept2017 11:00pmOctober 2020 6:38amAmiodarone 200 mg HdolmwQvjctk632BNKZFrgny at bedtimeS2017 11:00pmComplies with drug therapyNitroglycerin (Nitrostat) 0.4 mg Tablet, SublingualDiscontinued0.4MGSUBLINGUALAs Directed as needed for Chest Painpt2017 11:00pmAuk[facility]2022 7:27am0.4 mg sublingually under the tongue every 5 minutes up to 3 doses as needed for chest painMetformin 1,000 mg HexgqbKvihqbykffwh291YVVFBafvs pt2017 11:00pmA[facility]2022 7:35amWith MealsRanitidine Hcl 150 mg Tablet Bscswlaretxs229LKIXWxbmk times dailypt2017 11:00pmJun2019 12:05pmClopidogrel 75 mg PilngaYmhwfyonynsa03JLQVCyehjTspxeszpc 24th, 2018 11:00pmJun2019 12:05pmGlimepiride 1 mg EfrwjyIhplsijeaxgl9DIFLTwnpy December 13, 2017 11:00pmApril 2020 9:16amWarfarin 1 mg Tablet Kxgxdkigndlk0ENXTEoltlYxxpt 2018 11:00pmOctober 2020 6:38amWarfarin 1 mg YbqsclRijlofocrlmi4ABQPnhzfv weekJune 12, 2018 11:00pm[facility] 2018 8:24pmVenlafaxine 37.5 mg capsule,extended release 36opAsyomwkelyhd97.5MGPODaily at bedtimeJun2019 11:00pmAugust 2022 7:39amVenlafaxine (Effexor Xr) 150 mg Capsule,Extended Release 39ulCmpannabfken951TEHMWayzoRxlr 2019 11:00pmAugust 2022 7:39amFamotidine 20 mg WrhfurAbjdrehnqyzg97ZRYVCjfne dailyJun2019 11:00pmOct2023 9:47amRopinirole 0.5 mg tablet Discontinued0.5MGPODaily at bedtimeJun2019 11:00pmDecember 2023 7:15amAtorvastatin 80 mg NgdldnHearwraymmtb48SGYEOqldz zevnzwz737Ltokyhf 11th, 2021 11:00pmAugust 2022 7:39amMetoprolol Succinate 50 mg Tablet Extended Release 24 CzSzaktwiybaki70BLEFFhelf575Lrautvw 2020 11:00pmAugust 2022 7:39amClopidogrel 75 mg WekbquEugmsgpvvcgv20XMVVHbzae966Jfottgx 11th, 2021 11:00pmAugust 2022 7:38amSpironolactone 25 mg NlaqjoJiihgwmpqeiu71.5MGPO Lkcwc759Cqmzgtb 11th, 2021 11:00pmAugust 2022 7:36amNitroglycerin 0.4 mg Tablet, SublingualDiscontinued0.8IVVECULRTTKEK6A as needed for Chest Psge439 December 30, 2020 11:00pmApril 2023 1:38pm0.4 mg sublingually under the tongue every 5 minutes up to 3 doses as needed for chest painLisinopril 2.5 mg TabletDiscontinued2.2EIEFSzlud844Mdbisro 2020 11:00pmAugust 2022 7:38amWarfarin 1 mg JabfleKzbckiqqzvba7FQNTVy Iebvicpm02Hsjrxot 2020 6:37amFebruary 2023 10:56amTake 3 tablets ( 3MG ) today and tomorrow. (Wednesday and Wednesday ) resume taking 2 tablet ( 2 mg )then follow the Coumadin clinic at [place] instructions to adjust dosing based on the blood test. Clopidogrel (Plavix) 75 mg LldgnzSjowovkuncub90VWDDHfncpGketn 2017 11:00pm September 03, 2017 11:27amPravastatin 40 mg bmyyhyNpalzubwygjq52FGVEAcabeYhqon 2017 11:00pmOctober 2020 6:38amClindamycin Hcl 300 mg capsule Ggcwcutgaypn573ROMCF96B7505Vfhwh 2018 11:00pmApril 2018 11:00pmApril 2018 11:02pmEmpagliflozin (Jardiance) 10 mg ZqegjoJsythpuhbojs19OQUGBwleq June 25, 2020 11:00pmAugust 2022 7:38amAspirin 81 mg Tablet,Delayed Release (Dr/Ec)Opncxm54FXNKBcwnx at bedtimeAukayenta health centert 2022 11:00pmComplies with drug therapyMetformin 850 mg rdqqmgJigdhrlzwrza966BSYEVxspu dailyAugus2022 11:00pmJuly 2023 8:35amSpironolactone 25 mg yltfbvIxidzdisjhmk04 MGPOEvery morningAugust 2022 11:00pmMay 2024 9:25amMirtazapine 30 mg tbtnxnOxtqfjtcwhpw98FBCGKwmmf at bedtimeAukayenta health centert 2022 11:00pmFebruary 2023 12:30pmLosartan 25 mg iipnnsDmamchvpdion92ZLZPHlwpm morningAugust 2022 11:00pmAugust 2022 1:49pmEscitalopram Oxalate 5 mg tabletDiscontinued 5MGPOEvery morningAugust 2022 11:00pmFebruary 2023 10:56amInsulin Detemir U-100 (Levemir Flexpen) 100 unit/mL (3 mL) insulin rhfWbtwabhfyycl19ZFJQ SUBCUTDaily at bedtimeAukayenta health centert 2022 11:00pmFebruary 2023 10:56am Dulaglutide (Trulicity) 1.5 mg/0.5 mL pen injectorDiscontinued1.5MGSUBCUTevery 2022 11:00pmFebruary 2023 10:56amwednesdayAtorvastatin 80 mg ilznnbLiejft91JNWWBtpsi at bedtimeNovember 13, 2022 7:37amComplies with drug therapyMetoprolol Succinate 50 mg tablet extended release 24 xrNxkryhgxzafg57AW POEvery 2022 7:37amFebruary 2023 10:56amSacubitril- Valsartan (Entresto) 24-26 mg tdcyjbWjsaqyhdfmvy5YPRHXQmfvy uxuga268Tomniq2022 11:00pmMay 2024 9:25amInsulin Detemir U-100 (Levemir Flexpen) 100 unit/mL (3 mL) insulin midOttrvokgbabh82YUKNGNBSCCSzmpm dailybruary 2023 10:50amMay 2023 9:50amMetoprolol Succinate 50 mg tablet extended release 24 pkGjowiviptyej83BSSHIgkww dailyFebruary 2023 10:52amMay 2024 9:27amMetoprolol Succinate 50 mg tablet extended release 24 mmMlpwzt35ZFISAonku August 08, 2024 9:24amComplies with drug therapyInsulin Lispro (Humalog Kwikpen Insulin) 100 unit/mL insulin xfwXxxqlipniigl3ezedllu scale doseSUB2023 8:01amOctober 2023 9:49jl14-219 - 0 131-180 - 4 181-240 - 8 241-300 - 10 301-350 - 12 351-400 - 16 > 400 - 20Insulin Detemir U-100 (Levemir Flexpen) 100 unit/mL (3 mL) insulin pen Bymvryakablf16GRHIWDCKRCZofdg dailyNovember 15, 2023 8:02amOctober 2023 9:30amDoxycycline Hyclate 100 mg wfvzngeNfbomvnxhdnt438VSFOOjvlt wqjcn28861 November 14, 2023 11:00pmFebruary 2024 11:68jfNwpuudPwzhzc9.Route .MEDSUPPLYFebruary 2023 12:00amUse to test home BS Tranacutaneous 4-6x dailyInsulin Lispro (Humalog Kwikpen Insulin) 100 unit/mL insulin pen DiscontinuedSUBCUTMay 01, 2023 12:00amJuly 2023 1:11pmFreeTextSi-8 units Subcutaneous tid before meals; Note: Source Status: Continue; Provider: Manny Condon Landrum 32 g x 6 mmDiscontinued0.Route.MEDSUPPLY May 01, 2023 12:00ambruary 2024 1:00pmUse to inject insulin qd SC Warfarin 1 mg enplqbYvvjddorngiw2VUAQBf DirectedMay 01, 2023 10:55am May 01, 2023 10:57amTake 3 tablets ( 3MG ) today and tomorrow. (Wednesday and Wednesday ) resume taking 2 tablet ( 2 mg )then follow the Coumadin clinic at [place] instructions to adjust dosing based on the blood test.Mirtazapine 30 mg rrbqpfVstthfrwbqau75OOXGIfign at zvqopxq268Bcpgtkxe 13th, 2024 12:27pmAugust 2023 6:39amLosartan 25 mg vjbqohKalhbbtyggce51AATYAcfdt78604Omjcfkzh 12th, 2024 12:00amFebruary 2024 1:01pmIsosorbide Mononitrate 30 mg tablet extended release 24 xpSopzmlxchkve82KNLCJyyem noathoy45073Swexdrgs 12th, 2024 12:00bruary 2024 1:01pmFurosemide 20 mg fhdckyFgpavaroxeep83DOHS.QOD30 300Nov2023 12:00amFebruary 2024 1:01pmInsulin Lispro (Humalog Kwikpen Insulin) 100 unit/mL insulin owgNmtqaaqgaeec5izapuiy scale doseSUBCUTUse as Ufvozfyb73Icjnhbwq2023 9:35amFebruary 2024 1:98nt80-155 - 0 131-180 - 8 181-240 - 12 241-300 - 16 301-350 - 20 351-400 - 24 > 400 - 28Hyoscyamine Sulfate 0.125 mg tablet, sublingualDiscontinued0.125MG SUBLINGUALdaily as needed for abdominal cramping, hxomxrmn60150Xuyypnry 2024 12:00amFebruary 2024 1:01pmFurosemide 20 mg ffijgyFbmetc24PELPMynmg August 08, 2024 9:23amComplies with drug therapyWarfarin 2 mg xkjdgrJxpoxh0XUXO DailyAugust 07, 2024 11:00pmComplies with drug therapySemaglutide (Ozempic) 0.25 mg or 0.5 mg (2 mg/3 mL) pen injectorActive0.5MGSUBCUTevery weekAugust 07, 2024 11:00pmfor 4 weeksComplies with drug therapyInsulin Glargine (Lantus Solostar U- 100 Insulin) 100 unit/mL (3 mL) insulin gxkYydidzgtdwmr36XGNKEODGZAQzkys daily December 04, 2024 10:02amSept2024 10:03amInsulin Glargine (Lantus Solostar U-100 Insulin) 100 unit/mL (3 mL) insulin barTtjxkd65RTYJKVFQGRManoj December 04, 2024 10:03amComplies with drug therapySemaglutide (Ozempic) 0.25 mg or 0.5 mg (2 mg/3 mL) pen injectorActive0.5MGSUBCUTevery rsdb18Bcttcqrxz2024 11:00pmfor 4 weeksComplies with drug therapyLevetiracetam 750 mg howkzrKyyjiz746LEMUFsimf sdspp5591Unwm 2024 1:04pmSeizure disorder Epilepsy, unspecified, not intractable, without status epilepticusComplies with drug therapyTriamcinolone Acetonide 0.5 % ouiztHceqnt0QRSQHJUSBURWKTajgm daily30 151August 2024 11:00pmComplies with drug therapyCiprofloxacin Hcl 0.3 % gdtdjLwmptg1NWLDTUJU-BKLZEdqm times jklji432Nugkfa 2024 11:00pmComplies with drug therapy Immunizations Immunization Event Date Not Given Reason Dose Number Hair Designer Lot Number Reason(s) Given Vaccine Information Statement (VIS) Detail Administration Location COVID- Haseeb Bonilla ([facility]) August 03, 2020 [id number] drug martCOVID-19 mRNA, Comirnaty ([employer])August [id number] [facility]DT[facility], unspecifiedMarch 2017Fluzone TIV High-Dose 65YR+ February 01, [id number] [facility]Fl[facility] TIV High-Dose 65YR+ December 04, [id number] [facility] DentonFlu Vaccine - AdultOctober 2016influenza, unspecified formulationOctober 2019influenza, unspecified formulationOctober 2020influenza, unspecified formulation February 20, 2022influenza, unspecified formulationDecember 2021 influenza, unspecified formulationOctober neumococcal Conjugate Vaccine, 13 valentOctober 2014Pneumococcal Polysacc. Vaccine, valent December 29, [id number] Health [facility]iance Hospital CtrPneumococcal Polysacc. Vaccine, valentDecember 2021Quadrivalent InfluenzaOctober 2020 [id number] Health Defiance Hospital CtrTetanus, Diphtheria adult, 5 Lf pres free absSeptember 2011Tetanus, Diphtheria adult, 5 Lf pres free absOctober 2014Tetanus, Diphtheria adult, 5 Lf pres free absSeptember 2016 Tetanus, Diphtheria adult, 5 Lf pres free absMar 2017 Medical Equipment Device Date Implanted Device Details LEAD ISOFLEX OPTIMUS June 17, 2018 LEAD PACEMAKER TENDRIL STSMar 2018PACEMAKER ASSURITY MRI RF DRGrand [facility] 2018 Procedures Procedure Date Performed Status XR chest 2V* January 10, 2025 11:25am compl eted Relevant Diagnostic Tests and/or Laboratory Data Laboratory Results Test Collection Date/Time Result Date/Time Result Interpretation Reference Range Result Comment Performing Site Tissue Transglutaminase IgA Ab November 30, 2024 11:50am November 30, 2024 11:50am <2 U/mL 0-3Negative 0 - 3 Weak Positive 4 - 10 Positive >10 Tissue Transglutaminase (tTG) has been identified as the endomysial antigen. Studies have demonstr- ated that endomysial IgA antibodies have over 99% specificity for gluten sensitive enteropathy.Performed at: [facility] [facility] CenterFybtuf[address] [place], [place] [id number] Director: Roly Forrest PhD, Phone: [phone] A November 30, 2024 11:27hf248 mg/wC19-873Kysxzrule at: [facility] GuidesVirtua [facility] CenterRjmhed70[address] [place], [place] [id number] Director: Roly Forrest PhD, Phone: [phone] # (Auto)November 30, 2024 11:50amSeptember 2024 11:50am0.0 10 3/uL0.0-0.1FerritinSeptember 2024 11:50amSeptember 2024 11:50am42.0 ng/mL26.0-388.0Vitamin B12 LevelSept2024 11:50am November 30, 2024 11:67kh763 pg/jU304-9328Hohfedaqo at: [facility]beat GuidesVirtua [facility] CenterRbnuea6[address] [place], [place] [id number] Director: Roly Forrest PhD, Phone: [phone] (%) (Auto)November 30, 2024 11:50amSeptember 2024 11:50am0.6 %0.2-2.0Eosinophils # (Auto)November 30, 2024 11:50am November 30, 2024 11:50am0.2 10 3/uL0.0-0.7Eosinophils (%) (Auto)November 30, 2024 11:50amSeptember 2024 11:50am3.6 %0.9-7.0HematocritSeptember 2024 11:50amSept2024 11:50am42.6 %42.0-54.0HemoglobinSept2024 11:50amSeptember 2024 11:50am14.0 g/dL14.0-18.0Immature Granulocyte # (Auto)November 30, 2024 11:50amSeptember 2024 11:50am0.02 10 3/uL0.00-0.03Immature Granulocyte % (Auto)November 30, 2024 11:50am November 30, 2024 11:50am0.3 %0.0-0.5Lymphocytes # (Auto)November 30, 2024 11:50amSeptember 2024 11:50am2.6 10 3/uL1.2-3.8Lymphocytes (%) (Auto) November 30, 2024 11:50amSeptember 2024 11:50am39.7 %20.5-60.0Mean Corpuscular HemoglobinSept2024 11:50amSept2024 11:50am 27.8 pg25.9-34.0Mean Corpuscular Hemoglobin ConcentSeptember 2024 11:50am November 30, 2024 11:50am32.9 g/dL29.9-35.2Mean Corpuscular VolumeSept2024 11:50amSept2024 11:50am84.7 fL80.0-94.0Monocytes # (Auto) November 30, 2024 11:50amSeptember 2024 11:50am0.6 10 3/uL0.3-0.8 Monocytes (%) (Auto)November 30, 2024 11:50amSeptember 2024 11:50am8.6 %1.7-12.0Mean Platelet VolumeSept2024 11:50amSept2024 11:50am13.2 fL9.5-13.5Neutrophils # (Auto)November 30, 2024 11:50amSeptember 2024 11:50am3.1 10 3/uL1.4-6.5Neutrophils (%) (Auto)November 30, 2024 11:50amSept2024 11:50am47.2 %43.0-75.0Platelet CountSept2024 11:50amSeptember 2024 11:96lk050 10 3/uLBelow low ligiql969-268Ueh Blood CountSeptember 2024 11:50amSeptember 2024 11:50am5.03 10 6/uL 4.70-6.10Red Cell Distribution WidthSeptember 2024 11:50amSeptember 2024 11:50am17.3 %Above high .0-15.0Corrected White Blood CountSeptember 2024 11:50amSeptember 2024 11:50am6.6 10 3/uL4.0-11.0 Diagnostic Imaging Reports Author Sridhar Gatica [facility] CenterAuthoredOctober 2024 5:09pmReportDictated Date/TimeDictated ByStatusRadiology ReportOctober 2024 5:09pmLeonel Richmondomplete[place] [address] XRay Report Signed Patient: Kashif Rod MR#: [id number] : 1955 Acct:[id number] Age/Sex: 69 / M ADM Date: 5 Loc: XD Room: Type: [facility] Attending Dr: Franck Posey DO Copies to: Franck Posey DO~ Ordering Provider: Franck Posey DO Date of Service: 01/10/25 XR/XR chest 2V*: I48.0 Plain film chest 2 view HISTORY: High risk medication usage COMPARISON: 07/18/2024 FINDINGS: SUPPORT DEVICES: None POSTSURGICAL CHANGES: Cardiac device intact. CABG. HEART: Within normal limits PULMONARY CLAUDIA: Within normal limits MEDIASTINUM: Unremarkable LUNGS AND PLEURA: No acute lung process, pleural effusion or pneumothorax identified. BONY STRUCTURES: Intact ADDITIONAL FINDINGS None XR/XR chest 2V* IMPRESSION: No acute process. Intact cardiac device. Impression dictated by: Sridhar Gatica M.D. 01/10/2025 5:10 PM Dictation Location: [place] [address] Transcribed By: [facility] 01/10/251709 Dictated By: Sridhar Gatica DO 01/10/251708 Signed By: <Electronically signed by Sridhar Gatica DO in OV> 01/10/25 1710 Vital Signs Vital Reading Result Reference Range Collection Date/Time Height 69 [in_i] November 09, 2024 10:47efWwssbu935.11 kgAugust 2024 10:07amHeart Rate80 /zcx69-967Wzqarg 2024 10:07amRespiratory rate16 /usx83-13Qnemvs 2024 10:07amBP Clmgwbqw532 mm[Hg]100-140August 2024 10:07amBP Nsrkvfvxy70 mm[Hg]60-100August 2024 10:07amBMI (Body Mass Index)33.2 kg/m7Wazgkb 2024 10:35ijDjvaox95 [in_i]December 04, 2024 10:01edFoftqm773.83 kgSeptember 2024 10:02amHeart Rate78 /inl90-454Xmnlsxvpd 2024 10:02am Respiratory rate16 /cqk92-32Jkzccsrvw 2024 10:02amBP Xwkzmrux989 mm[Hg] 100-140September 2024 10:02amBP Ptgjzjvqm01 mm[Hg]60-100September 2024 10:02amBMI (Body Mass Index)33.1 kg/u5Trujawuce 2024 10:30kuJakiwe58 [in_i]January 24, 2025 3:58bnScbuby415.49 kgNovember 2024 3:10pmHeart Rate92 /gch55-268Jfvrbxxr 5th, 2025 3:10pmRespiratory rate12 /kyz41-12Ejtmxjfb 5th, 2025 3:10pmBP Jcpoewrr007 mm[Hg]100-140November 2024 3:10pmBP Hnjwgmejl13 mm[Hg]60-100November 2024 3:10pmBMI (Body Mass Index)34.0 kg/m2 January 24, 2025 3:10pm Advance Directives Advance Directive Response Recorded Date/ Time Advance Directives No January 10:39am Insurance Providers Guarantor Kashif Rod Address [address] [place] [phone] Info.Home Phone: Coverage Status Update:2025 Payer Group Member ID Coverage Type Subscriber Relationship to Subscriber Effective Date Expiration Date Medicare Id: [id number] G Caudill Id: [id number] [place] [phone] Home Phone: Email: [email or web address] Encounters Encounter Location(s) Arrival/Admit Date Discharge/Departure Date Discharge/Departure Disposition Provider(s) Departed Physician/ Provider Office Visit -[facility] November 09, 2024 11:03am November 09, 2024 11:22am Discharged to home care or self care (routine discharge) Lee Mena DO Non-patient / Non-visit -[facility] November 30, 2024 12:50pm Joe Hawkins Physician/Provider [facility] 10:50amSept2024 11:35amDischarged to home care or self care (routine discharge)[facility] 2024 12:19pmDischarged to home care or self care (routine discharge)Joe Sher [facility] 2:43pm January 24, 2025 3:29pmDischarged to home care or self care (routine discharge)Lee Mena DO Recent Diagnosis Onset Date Admit Date Conjunctivitis Unknown November 09 11:03am Intertriginous dermatitis as sociated with moisture Unknown November 09, 2024 11:03am Atrial fibrillation Unknown December 042024 10:50am Biventricular cardiac pacemaker in situ Unknown December 04, 2024 10:50am Chronic HFrEF (heart failure with reduced ejection fraction) Unknown December 04, 2024 10:50am Elevated cholesterol Unknown November 202024 10:50am Family history of pancreatic cancer Unknown December 04, 2024 10:50am Hypertension Unknown December 04, 2024 10:50am IBS (irritable bowel syndrome) Unknown S eptember 2024 10:50am Ischemic cardiomyopathy Unknown Septembe r 2024 10:50am Nicotine dependence, cigaret sridevi, uncomplicated Unknown December 04, 2024 10:50am Type 2 diabetes mellitus wit h diabetic peripheral angiopathy without gangre Unknown December 04, 2 025 10:50am Type 2 diabetes mellitus with hyperglycemia Unkn own December 04, 2024 10:50am Assessments Diagnosis Onset Date Resolution Status Admit Date Conjunctivitis noneactiveAugust 2024 11:03amIntertriginous dermatitis associated with moisturenoneactiveAugust 2024 11:03amAtrial fibrillationacuteSeptember 2024 10:50amBiventricular cardiac pacemaker in situacutept2024 10:50amChronic HFrEF (heart failure with reduced ejection fraction)acute December 04, 2024 10:50amElevated cholesterolacuteSeptember 2024 10:50amFamily history of pancreatic canceracuteSept2024 10:50am HypertensionacuteSeptember 2024 10:50amIBS (irritable bowel syndrome)acute December 04, 2024 10:50amIschemic cardiomyopathyacuteSeptember 2024 10:50amNicotine dependence, cigarettes, uncomplicatedacuteptember 2024 10:50amType 2 diabetes mellitus with diabetic peripheral angiopathy without gangreacuteSeptember 2024 10:50amType 2 diabetes mellitus with hyperglycemiaacuteSeptember 2024 10:50am Plan of Treatment Author Lee Mena [facility] CenterAuthoredSept2024 8:03pmI have instructed this patient to follow a comprehensive diabetic treatment plan. I have also instructed them to check their feet daily for calluses and nonhealing ulcers. I have instructed them to have a yearly dilated eye examination. I have reviewed their treatment goals: SBP less than 130, LDL less than 100, FBS less than 140, A1C less than 7%. I have instructed them to maintain a home BS log and bring the results to each of their office visits for review. I have explained the importance of routine monitoring of their A1C, Microalbumin and Lipids. I have explained the benefits of well controlled diabetes in preventing micro and macrovascular complications. Stopped metformin due to GI intolerance Started on Ozempic w/ weight loss and improved glucose control Continue Lantus but adjusted dose down to 27u/day Monitor w/ goal of BS all < 180 Denies hypoglycemic episodes Latest A1C 7.6% f/u Diabetic specialist I have instructed the patient to inspect their feet daily for cuts and calluses. I have recommended shoes and inserts to prevent callus formation. I have reviewed fall precautions. Instructed to walk daily until pain, rest and restart. Continue secondary prevention measures Continue ASA and Atorvastatin without interruption I have instructed this patient to consume a healthy, low-fat, low-salt diet. I have also encouraged them to continue exercise with weight loss to achieve/maintain a BMI < 30. I have instructed this patient on the correct procedure for obtaining home BP measurements:? - rest for 5 minutes w/o talking. - positioned w/ feet on floor and arms supported. - average best 2/3 readings w/ goal < 135/85. - update office w/ home readings in 2 weeks. Continue Losartan and Metoprolol without interruption This patient is rhythm controlled. I instructed them to continue anticoagulation to prevent thromboembolic events. I instructed them to monitor their BP, HR and daily weights. I also instructed them to monitor for bleeding complications, including epistaxis, hematuria, melena and hematochezia. No bleeding complications Continue Amiodarone and Warfarin without interruption CXR/PFT completed by cardiology and patient informed results were ok I have instructed this patient on a low fat, high fiber diet and exercise. I have discussed the primary and secondary prevention benefits attributed to lowering LDL cholesterol. I have also discussed the medical treatment of elevated cholesterol, which is based on the 10 year ASCVD risk. Continue Atorvastatin without interruption Instructed on healthy, high fiber diet. Instructed no adequate fluid intake and exercise. Continue Miralax daily last scope 2020 Smoking hx: - age started 22 - ppd 2 PFT: FEV1/FVC 77%, TLC 95%, DLCO 86% - 04/2024 Recommend LDCT chest Recommend referral to Heme/Onc for genetic testing - mother and brother w/ pancreatic cancer - sister w/ ovarian cancer MRCP order faxed - may require genetic testing to be completed prior to insurance authorization. AICD/BIV pacemaker for Sick Sinus Syndrome and HFrEF. I have instructed this patient on a low salt diet, exercise and daily weights. I have instructed them to notify the office for any on any unexpected weight gain > 3lbs and /or increased dyspneaon exertion, difficulty breathing during sleep, worsening lower extremity swelling, chest pain or lightheadedness. I have reviewed the GDMT with beta blockers, JENNY/ARB or ARNI, MRA and a SGLT-2i. Echo: LVEF 40%, LAE, normal valves - 12/2020, Continue Losartan, Metoprolol and Imdur without interruption This patient is stable without activity related chest pain, dyspnea or lightheadedness. I instructed them to continue exercise at least 3x weekly and consume a low salt, low fat, high fiber diet. I instructed them to continue secondary prevention measures in reducing risks for recurrent events. Echo: LVEF 40%, LAE, normal valves - 12/2020, LHC: LVEF 35%, 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, DIESEL MOTOR MECHANIC LCx, patent L-LAD - 11/2022 (medical therapy) Continue ASA, Atorvastatin and Imdur without interruption Author Lee Mena [facility]javier[facility] 2024 10:34amInstructed to keep area clean and dry Instructed to avoid use of deodorants. Start w/ Triamcinolone crm bid and use until clear Use artificial tear for lubrication. Refilled Ciprofloxacin w/ instructions to notify organizational development specialist if doesn't clear in next week Future Tests Future scheduled test information is unavailable Pending Tests Test Name Ordered Date Scheduled Date Comprehensive Metabolic Panel December 04 12:37pm Future Visits Future appointment information is unavailable Future Procedures Procedure Name Ordered Date Scheduled Date Complete Blood Count Auto Diff December 04 12:37pm Future Medications Future medication information is unavailable Patient Instructions Patient instructions are unavailable
--- OUTSIDE RECORDS SUMMARY | 2025-02-02 09:00 | XMS_ITS | Clinical Summary ---
Author Organization [facility] Address [address] [place] [address] Care Team Providers Care Double Bottom Driver Name Role Phone Unavailable Primary Care Provider Unavailabl e Allergies No known active allergies Medications MedicationSigDispense QuantityRefillsLast FilledStart DateEnd DateStatus citalopram (CELEXA) 40 mg ORAL tablet Take 40 mg by mouth once daily.Active pravastatin (PRAVACHOL) 40 mg ORAL tablet Take 40 mg by mouth once daily.Active ranitidine (ZANTAC) 150 mg ORAL tablet Take 150 mg by mouth twice daily.Active metFORMIN 500 mg tablet Take 2 tablets by mouth twice daily with meals. 60 tablet ctive Aspirin 81 mg Tab Take 4 tablets by mouth once daily. 30 tablet ctive levETIRAcetam (KEPPRA) 500 mg tablet Take 1 tablet by mouth twice daily. 60 tablet ctive Active Problems Patient Care Coordination No te Formatting of this note migh t be different from the original. HPI: 56 y/o M w/ PMH: remote stroke '98 and residual left sided weakness, NH '10, CAD s/p stent on ASA/ticagrelor, HPL, [...] none. Neuro: 1. Wean neuro checks to n9wvigo. 2. Continue doppler exams to bypass site. 3. Dexamethasone 4mg/BID -- weaning per neurosurgery 4. Levetiracetam 750mg/BID for seizure prophylaxis per neurosurgery. 5. Pain management: percocet and morphine PRN 6. Mobilize, PT/OT consults. To [facility] when bed available. CV: 1. MAP [...] pulled noelle Drips: none Disposition/Family Updates: to [facility] when bed available. ProblemNoted DateDiagnosed DateDizziness and edfzixqiy46/20/2013HTN (hypertension)06/23/2011 Overview (06/23/2011): Postop from MCA bypass. Dr iFsher has asked us to maintain a systolic blood pressure greater than 110 to maintain bypass patency. Antihypertensive to avoid breakthrough hyperemia when necessary. DM (diabetes mellitus)06/23/2011 Overview (06/23/2011): Management per ICU protocol EMIL (obstructive sleep apnea)06/23/20117460Tvibweaoxfnkkl16/03/2012Occlusion and stenosis of carotid artery without mention of cerebral daomupesqz70/09/2011 Encounters DateTypeDepartmentCare ZhfkCumxctomrfw45/10/2025Telephone [facility] [address] [address] Leandro Miller MS 12/19/2024 Patient Msg [facility] [address] [place], [place] [address] PaulLeandro MS Genetic Test Mgzskr3512/19/2024Results Follow-Up Genetic [place] [id number] Leandro Miller MS 12/13/2024 9:00 AM EDTDaniel [place] [id number] PriyaLeandro ford, Family history of pancreatic cancer (Primary Dx); Family history of ovarian slfpuw7812/13/2024 Patient [facility] [address] [place] [address] Provider, Ccf Please Read: Genetic Testing Eyovldriojt80/24/7425Kgqvnc06/17/2025H&P External-NonCCF Provider, ABENA Plata from Last 3 Months Family History Medical HistoryRelationCommentsPancreatic CancerBrother 2MI [Other]Father Pancreatic CancerMothermultiple myeloma [Other]MotherOvarian cancerSister 2 RelationStatusCommentsBrother 1AliveBrother 2DeceasedDaughterAliveFatherMaternal AuntAliveMaternal UncleAliveMotherDeceasedNephew 1AliveNephew 2AlivePaternal Aunt 1AlivePaternal Aunt 2AlivePaternal Aunt 3AlivePaternal UncleAliveSister 1 AliveSister 2DeceasedSonAlive Social History Tobacco UseTypesPacks/DayYears UsedDateSmoking Tobacco: Every ZxmJrhxmumxwy897 Tobacco Cessation:Ready to Q uit: Yes; Counseling Given: Yes Alcohol UseStandard Drinks/WeekCommentsYes6 (1 standard drink = 0.6 oz pure alcohol)doesn't drink everyday - when he does ~6 beers.Area Deprivation Index AnswerDate RecordedNational Score (1-100), lower number is lower risk93 12/13/2024State Score (1-10), lower number is lower they37912/13/2024Data from: https://www.neighborhoodatlas.medicine.[facility].edu/. Last address used for pebfxekofsm[address]/13/2024Sex and Gender InformationValueDate Recorded Sex Assigned at BirthNot on fileLegal JfpJovl25/04/2011 9:01 AM ESTGender IdentityNot on fileSexual OrientationNot on file Last Filed Vital Signs Vital SignReadingTime TakenCommentsBlood Clvyzuay946/7901/09/2013 11:44 AM EDT Ijbfs183001/09/2013 11:44 AM KFFVkrungkwcca43.8 ??C (96.5 ??F)06/25/2011 7:00 AM EDTRespiratory Nadd5430 11:43 AM EDTOxygen Vuimzmgndb97%06/25/2011 7:00 AM EDTInhaled Oxygen Concentration--Ipjapl819.2 kg (249 lb 9 oz)06/23/2011 3:14 PM OSRRoahjp532.3 cm (5' 9.02 )06/23/2011 3:14 PM EDTBody Mass Index36.84 06/23/2011 3:14 PM EDT Plan of Treatment Health MaintenanceDue DateLast DoneCommentsAbdominal Aortic Aneurysm Screening 1957Diabetic Foot Exam1967Dilated Retinal Exam1967Urine Albumin:Creatinine Ratio1967Annual PCP Team Chronic Disease Visit 1975Anxiety Ptpsycxaa90/13/1975Depression Rbgdcxnrz43/13/1975Hepatitis C Xqgouvwti14/13/1975CT Kkacrrwlscxf38/13/2002Cologuard (FIT-DNA)2002 Hthhsrraujg67/13/2002Colorectal Cancer Ochowsjsx84/13/2002Fecal Occult Blood 2002Prostate Cancer Screening Intueeqkli02/13/6182Odnfakrzuikrr17/13/2002 Lung Cancer Inllihvpu37/13/2007Shingrix Vaccine (1 of 2)2007dvance Directive Ejxoiwmngk33/01/2025Medicare Advantage Annual Wellness Visit03/22/2024 Covid-19 Vaccine ( season)506/05/2020, 08/03/2020HbA1C 609/11/2024, 09/04/2017, 09/04/2017LDL Cbqgvjhiggs38/29/589866/, 09/05/2017, 09/03/2017DTaP,Tdap,Td Vaccine (2 - Td or Tdap)/2018 RSV Vaccine (1 - 1-dose 75+ series)2Pneumococcal Vaccine: 50+Completed 02/27/2022, 03/22/2018, 12/20/2017, Additional history existsInfluenza Vaccine Wufzhxbnt23/15/2025, 2024, 12/21/2023, Additional history exists Medical Devices ImplantedTypeAreaManufacturerDevice IdentifierShelf Expiration DateModel / Serial / LotGraft Dura 2x2in Ptch Rsrb - [id number] Implanted:Qty[facility] 1 [facility] - TissueRight: Head - CranialINTEGRA LIFE SCI NEURO12/20/2013DP1022 / / [id number]:dura genPlate Lw Prof 2hole 12mm Bar - [id number] Implanted:Qty: 3 on 06/23/2011 at [facility] HospitalPlateRight: Head - Cranial STRY-HOWM [id number] / / [id number]:dog bonePlate Cvr Bur Hole Lp 10mm - [id number] Implanted:Qty: 1 on 06/23/2011 at [facility] HospitalPlateRight: Head - Cranial STRY-HOWM [id number] / / [id number]:bur holeScrew Self Drilling 1.5x4mm - [id number] Implanted:Qty: 9 on 06[facility]23/2011 at [place] [facility]crewRight: Head - Cranial [id number] / / [id number]:screw Procedures Procedure NamePriorityDate/TimeAssociated DiagnosisCommentsNVTA INVITAE HEREDITARY DIAGNOSTIC CANCER WCYEMZvlvgtx04/24/2025 9:43 AM EDT Family history of pancreatic cancer Family history of ovarian cancer EXTERNAL LAB12/06/2024 10:01 AM EDT EXTERNAL LAB12/06/2024 10:01 AM EDT from Last 3 Months Results * NVTA [facility] HEREDITARY DIAGNOSTIC CANCER PANEL (12/13/2024 9:43 AM EDT) ComponentValueRef RangeTest MethodAnalysis TimePerformed AtPathologist SignatureInvitae Test PerformedInvitae Multi-Cancer Panel12/19/2024 5:18 AM EDTINVITAEInvifatoumatae About TestThis diagnostic test evaluates 70 gene(s) for variants (genetic changes) that are associated with genetic disorders. Diagnostic genetic testing, when combined with family history and other medical results, may provide information to clarify individual risk, support a clinical diagnosis, and assist with the development of a personalized treatment andmanagement strategy.12/19/2024 5:18 AM EDTINVITAE GENETIC ANALYSIS OVERALL SSIWLESGYTZHBUKuhewlhu57/30/2025 5:18 AM EDTINVITAE Invitae Tested GenesAIP (NM_003977.3), ALK (NM_004304.4), APC (NM_000038.5), MARY ANN (NM_000051.3), AXIN2 (NM_004655.3), BAP1 (NM_004656.3), BARD1 (NM_000465.3), BLM (NM_000057.3), BMPR1A (NM_004329.2), BRCA1 (NM_007294.3),BRCA2 (NM_000059.3), BRIP1 (NM_032043.2), CDC73 (NM_024529.4), CDH1 (NM_004360.3), CDK4 (NM_000075.3), CDKN1B (NM_004064.4), CDKN2A (p14ARF) (NM_058195.3), CDKN2A (t54NZQ9s) (NM_000077.4), CHEK2 (NM_007194.3), CTNNA1 (NM_001903.3), DICER1 (NM_177438.2), EGFR (NM_005228.3), EPCAM (NM_002354.2), FH (NM_000143.3), FLCN (NM_144997.5), GREM1 (NM_013372.6), HOXB13 (NM_006361.5), KIT (NM_000222.2), LZTR1 (NM_006767.3), MAX (NM_002382.4), MBD4 (NM_003925.2), MEN1 (NM_130799.2), MET (NM_001127500.1), MITF (NM_000248.3), MLH1 (NM_000249.3), MSH2 (NM_000251.2), MSH3 (NM_002439.4), MSH6 (NM_000179.2), MUTYH (NM_001128425.1), NF1 (NM_000267.3), NF2 (NM_000268.3), NTHL1 (NM_002528.6), PALB2 (NM_024675.3), PDGFRA (NM_006206.4), PMS2 (NM_000535.5), POLD1 (NM_002691.3), POLE (NM_006231.3), POT1 (NM_015450.2), YSFYQ0A (NM_002734.4), PTCH1 (NM_000264.3), PTEN (NM_000314.4), RAD51C (NM_058216.2), RAD51D (NM_002878.3), RB1 (NM_000321.2), RET (NM_020975.4), SDHA (NM_004168.3), SDHAF2 (NM_017841.2), SDHB (NM_003000.2), SDHC (NM_003001.3), SDHD (NM_003002.3), SMAD4 (NM_005359.5), SMARCA4 (NM_001128849.1), SMARCB1 (NM_003073.3), SMARCE1 (NM_003079.4), STK11 (NM_000455.4), SUFU (NM_016169.3), BTCO124 (NM_017849.3), TP53 (NM_000546.5), TSC1 (NM_000368.4), TSC2 (NM_000548.3), VHL (NM_000551.3) This table represents a complete list of genes analyzed for this individual, including the relevant genetranscript(s). If more than one transcript is listed for a single gene, variants were reported using the first transcript listed unless otherwise indicated in the report. An asterisk (*) indicates that this gene has a limitation. Please see the Limitations section for details. ??Results are negative unless otherwise indicated in the report. Benign and Likely Benign variants are not included in this report and in specific scenarios variants of uncertain significance in the requisitioned gene(s) may not be included in this report.12/19/2024 5:18 AM EDT INVITAEInvitae Additional InformationFor additional information related to the methods and limitations of this testing, please see the PDF oectqf9412/19/2024 5:18 AM EDTINVITAESpecimen (Source)Anatomical Location / LateralityCollection Method / VolumeCollection TimeReceived TimeBloodVenipuncture / Fbmovbv8312/13/2024 9:43 AM EDT12/13/2024 9:44 AM EDT Narrative Authorizing ProviderResult TypeResult StatusStaci Davies MD, PhDLABORATORY Final ResultPerforming OrganizationAddressCity/State/ZIP CodePhone Number INVITAE [address] [place] [id number] * EXTERNAL LAB (12/06/2024 10:01 AM EDT) Only the most recent of2 resultswithin the time period is included. Narrative Authorizing ProviderResult TypeResult StatusExternal Provider PA-CLABORATORY Final Result from Last 3 Months Insurance Advance Directives TypeDate RecordedPatient RepresentativeExplanationAdvance Directive(s)06/15/2011 6:45 PM
--- OUTSIDE RECORDS SUMMARY | 2025-02-02 09:00 | XMS_ITS | Clinical Summary ---
Author Organization [facility] Healthcare Address [address] [facility] [place] [address] Care Team Providers Care Waste Collector Name Role Phone Lee Mena DO Primary Care Provider [phone] Lee Mena DO Unavailable [phone] Allergies Active AllergyReactionsCriticalityNoted DateCommentsAce InhibitorsOther 12/30/2022 Medications MedicationSigDispense QuantityRefillsLast FilledStart DateEnd DateStatus amiodarone (Pacerone) 200 MG tablet Take 200 mg by mouth in the morning.06/21/2023ctive aspirin 81 MG EC tablet Daily at jsqdeco7311/13/2022ctive atorvastatin (Lipitor) 80 MG tablet Daily at qrlngdi1011/13/2022ctive famotidine (Pepcid) 20 MG tablet Take 20 mg by mouth in the morning and 20 mg in the evening.Active losartan (Cozaar) 25 MG tablet Take 25 mg by mouth in the morning.01/12/2023ctive metoprolol succinate XL (Toprol-XL) 50 MG 24 hr tablet Take 1 tablet by mouth Daily05/01/2023ctive mirtazapine (Remeron) 30 MG tablet Daily at tcckmpg5412/13/2022ctive rOPINIRole (Requip) 0.5 MG tablet Take 0.5 mg by mouth at cfsvbgl4312/21/2022ctive warfarin (Coumadin) 2 MG tablet Take 2 mg by mouth See administration kiawjzflmgyj60/19/2023ctive levETIRAcetam (Keppra) 750 MG tablet Indications:Seizure disorder (HCC)Take 1 tablet (750 mg) by mouth in the morning and 1 tablet (750 mg) before bedtime. 180 tablet 102/24/2025Active furosemide (Lasix) 20 MG tablet Take 20 mg by mouth Daily4Active isosorbide mononitrate ER (Imdur) 30 MG 24 hr tablet Take 30 mg by mouth Daily Do not crush or chew.Active Semaglutide,0.25 or 0.5MG/DOS, (Ozempic, 0.25 or 0.5 MG/DOSE,) 2 MG/3ML solution pen-injector Indications:Type 2 diabetes mellitus with other circulatory complications (HCC) Inject 0.5 mg under the skin 1 (one) time per week 3 mL 5Active Continuous Glucose Sensor (FreeStyle Sarah 3 Plus Sensor) [facility] Indications:Type 2 diabetes mellitus with other circulatory complications (HCC)1 each See administration instructions 6 each 5Active insulin glargine (Lantus) 100 UNIT/ML injection Inject 27 Units under the skin Daily 15 mL 5Active Active Problems ProblemNoted DateDiagnosed DateType 2 diabetes mellitus with other circulatory ndmnswhepklfg55/04/2025 Assessment & Plan (11/28/2024 2:32 PM EDT): [...] of the changes we discussed. Carotid artery mdwoinkt48/11/6588Utbdpxk10/11/7860Duoajs78/11/2024Stenosis of right carotid giiwjg9908/31/2023entral vestibular zxklitg7008/31/2023egenerative lumbar disc08/31/2023erebrovascular accident (CVA) due to occlusion of right carotid nygsbm9108/31/2023Occlusion and stenosis of other cerebral arteries 08/31/20234729Lhjswtrjqoa16/11/2024Seizure oirkzrhp79/11/2024 Encounters DateTypeDepartmentCare NyfuSpdxzmtslqj79/20/2025 1:30 PM EDTClinical Support [facility] [facility] [address] [facility] [address] [place] [id number] Lolis Vines CCC-Disha Mixed conductive and sensorineural hearing loss, bilateral (Primary Dx) 5Bamboo flowsheet [facility] [facility] [address] [place] [address] Lolis Vines CCC-A 11/28/2024 2:00 PM EDTOffice Visit [facility] [address] [place] [address] Nany De Santiago, Type 2 diabetes mellitus with other circulatory complications (HCC)11/28/2024 Travelfrom Last 3 Months Family History Medical HistoryRelationNameCommentsPancreatic cancerBrotherDaleAlcohol abuse FatherGlennDiabetesFatherGlennHeart attackFatherGlennHeart diseaseFatherGlenn HypertensionFatherGlennStrokeFatherGlennHeart attackMaternal GrandfatherAlcohol abuseMotherWinonaBone cancerMotherWinonaHeart attackPaternal GrandfatherOvarian cancerSisterCindyRelationNameStatusCommentsBrotherDaleFatherGlennDeceased Maternal GrandfatherMotherWinonaDeceasedPaternal GrandfatherSisterCindy Social History Tobacco UseTypesPacks/DayYears UsedDateSmoking Tobacco: Every RqfDftmbdbupk814 Smokeless Tobacco: Never Tobacco Cessation:Ready to Q uit: Not Asked; Counseling Given: Not Answered Comments:Pipe tobacco in a cigarette form Alcohol UseStandard Drinks/WeekCommentsYes9 (1 standard drink = 0.6 oz pure alcohol)caffeine 2-3 cups per hqmJ3870 Health LiteracyAnswerDate RecordedHow often do you need to have someone help you when you read instructions, pamphlets, or other written material from your doctor or pharmacy?Sometimes 05/23/2024Social Connection and Isolation PanelAnswerDate RecordedIn a typical week, how many times do you talk on the phone with family, friends, or neighbors?More than three times a week05/23/2024How often do you get together with friends or relatives?Once a week05/23/2024How often do you attend anabaptism or religion services?Never05/23/2024Do you belong to any clubs or organizations such as anabaptism groups, unions, fraternal or athletic groups, or school groups? Yes05/23/2024How often do you attend meetings of the clubs or organizations you belong to?More than 4 times per year05/23/2024re you , , , , never , or living with a partner?Bekawiy3505/23/2024 AUDIT-CAnswerDate RecordedQ1: How often do you have a drink containing alcohol? 2-4 times a month05/23/2024Q2: How many drinks containing alcohol do you have on a typical day when you are drinking?5 or 6005/23/2024Q3: How often do you have six or more drinks on one occasion?Less than nosmhjg6005/23/2024Overall Financial Resource Strain (CARDIA)AnswerDate RecordedHow hard is it for you to pay for the very basics like food, housing, medical care, and heating?Not hard at all 05/23/2024PHQ-2AnswerDate RecordedPatient Health Questionnaire-2 Score0 11/28/2024[facility] [place] [facility] - Occupational Stress QuestionnaireAnswerDate RecordedDo you feel stress - tense, restless, nervous, or anxious, or unable to sleep at night because yourmind is troubled all the time - these days?Not at all05/23/2024Exercise Vital SignAnswerDate RecordedOn average, how many days per week do you engage in moderate to strenuous exercise (like a brisk walk)?0 days05/23/2024On average, how many minutes do you engage in exercise at this level?0 min05/23/2024Hunger Vital SignAnswerDate Recorded Within the past 12 months, you worried that your food would run out before you got the money to buymore.Never true05/23/2024Within the past 12 months, the food you bought just didn't last and you didn't have money to get more.Never true 05/23/2024PRAPARE - TransportationAnswerDate RecordedIn the past 12 months, has lack of transportation kept you from medical appointments or from getting medications?No05/23/2024In the past 12 months, has lack of transportation kept you from meetings, work, or from getting things needed for daily living?No 05/23/2024Housing Stability Vital SignAnswerDate RecordedIn the last 12 months, was there a time when you were not able to pay the mortgage or rent on time?No 05/23/2024In the past 12 months, how many times have you moved where you were living?t any time in the past 12 months, were you homeless or living in a long-term (including now)?No05/23/2024Sex and Gender InformationValueDate RecordedSex Assigned at BirthNot on fileLegal ZtjQply2806/03/2022 6:57 PM EDT Gender IdentityNot on fileSexual OrientationNot on file Last Filed Vital Signs Vital SignReadingTime TakenCommentsBlood Avsnjygr408/6409 2:05 PM EDT Hbcbv7608/09/2025 2:05 PM IHCUjuhzexfupi78.8 ??C (98.3 ??F)11/28/2024 2:05 PM EDTRespiratory Eunq841506/08/2024 12:37 PM EDTOxygen Cqxkufacwb090%11/28/2024 2:05 PM EDTInhaled Oxygen Concentration--Zjthop767 kg (225 lb)11/28/2024 2:05 PM EDT Ybumno863.3 cm (5' 9 )11/28/2024 2:05 PM EDTBody Mass Index33.23011/28/2024 2:05 PM EDT Plan of Treatment DateTypeDepartmentCare Team (Latest Contact Info)Neoyvlxplsm18/09/2025 10:30 AM ESTOffice Visit [facility] [address] [place] [phone] Nany De Santiago, [address] [place] [address] Health MaintenanceDue DateLast DoneCommentsCT Xnxvjseqcmfp1957Colonoscopy 1957Colorectal Cancer Eyfyzcfou1957FIT-DNA1957FIT1957 FOBT1957Lung Cancer Screening Shared Decision Ymqgnx89 1955Medicare Annual Wellness (AWV)1955 9727Cgbgknbdifrcu1957Diabetes: Urine Protein Mnuwtelky12/13/1976COVID-19 Vaccine ( season)/05/2020, 1Diabetes: Hemoglobin A1C9/11/2024, 08/28/2024, 05/10/2024, Additional history existsDiabetes: Retinopathy Sufcdgwct63 Pneumococcal Vaccine: 65+ JhxweWdqigxpja11/09/2022, 12/29/2020, 03/22/2018, Additional history existsInfluenza DzjuoniKxmmqdmbf03/15/2025, 2024, 12/21/2023, Additional history exists Procedures Procedure NamePriorityDate/TimeAssociated DiagnosisCommentsPOCT GLYCOSYLATED HEMOGLOBIN (HGB A1C)Ahieakz7411/28/2024 2:19 PM EDT Type 2 diabetes mellitus with other circulatory complications (HCC) DIABETIC RETINOPATHY SCREENING - OU - BOTH NVHBXyozklp34/06/2025 1:41 PM EDTfrom Last 3 Months or Most Recently Relevant to Health Maintenance Results * POCT glycosylated hemoglobin (Hb A1C) docked device (11/28/2024 2:19 PM EDT) ComponentValueRef RangeTest MethodAnalysis TimePerformed AtPathologist SignatureHemoglobin A1C7.6Specimen (Source)Anatomical Location / Laterality Collection Method / VolumeCollection TimeReceived TimeBloodVenous blood specimen / Bxuoeiu3911/28/2024 2:19 PM EDT Narrative Authorizing ProviderResult TypeResult StatusNany De Santiago DOPOINT OF CARE TEST ENTER/EDIT ORDERABLESFinal Result * Diabetic Retinopathy Screening - OU - Both Eyes (10/25/2024 1:41 PM EDT) Anatomical RegionLateralityModalityHeadOther Narrative Authorizing ProviderResult TypeResult StatusNoms Provider Unallocated MDOPHTH PHOTOGRAPHYFinal Result from Last 3 Months or Most Recently Relevant to Health Maintenance Insurance Care Teams Team MemberRelationshipSpecialtyStart DateEnd Date Lee Mena DO [address] [place] [id number] PCP - GeneralInternal Medicine09/01/23 Lee Mena DO [address] [place] [phone] Referring PhysicianInternal Medicine06/08/24
--- OUTSIDE RECORDS SUMMARY | 2025-02-02 09:00 | XMS_ITS | Clinical Summary ---
Author Organization [facility] Address [address] [place] [address] Phone Care Team Providers Care Powder Guard Name Role Phone Carmen Alvarez MD Unavailable Lee Mena DO Primary Care Provider [phone] Allergies No known active allergies Medications MedicationSigDispense QuantityRefillsLast FilledStart DateEnd DateStatus aspirin 81 mg EC tablet Take 1 tablet (81 mg) by mouth once daily.Active levETIRAcetam XR (Keppra XR) 750 mg tablet extended release 24 hr 24 hr tablet Take 1 tablet (750 mg) by mouth 2 times a day.Active nitroglycerin (Nitrostat) 0.[address] 1 tablet (0.4 mg) under the tongue every 5 minutes if needed for chest pain.11/10/2022ctive mirtazapine (Remeron) 30 mg tablet Take 1 tablet (30 mg) by mouth once daily at bedtime.12/13/2022ctive rOPINIRole (Requip) 0.5 mg tablet Take 1 tablet (0.5 mg) by mouth once daily at bedtime.12/21/2022ctive warfarin (Coumadin) 2 mg tablet Indications:Paroxysmal atrial fibrillation (Multi)Take 1 tablet (2 mg) by mouth see administration instructions. As directed by the [facility]. Ok to resume at previous dose on 01/09/2310ctive famotidine (Pepcid) 20 mg tablet Take 1 tablet (20 mg) by mouth 2 times a day.Active atorvastatin (Lipitor) 80 mg tablet Indications:Mixed hyperlipidemiaTake 1 tablet (80 mg) by mouth once daily at bedtime. 90 tablet ctive furosemide (Lasix) 20 mg tablet Indications:Ischemic cardiomyopathyTake 1 tablet (20 mg) by mouth once daily. 90 tablet ctive isosorbide mononitrate ER (Imdur) 30 mg 24 hr tablet Indications:Atherosclerosis of [place] coronary artery of [place] heart without angina pectorisTake 1 tablet (30 mg) by mouth once daily. Do not crush or chew. 90 tablet ctive metoprolol succinate XL (Toprol-XL) 50 mg 24 hr tablet Indications:Paroxysmal atrial fibrillation (Multi),Ischemic cardiomyopathy, Primary hypertensionTake 1 tablet (50 mg) by mouth once daily. 90 tablet ctive losartan (Cozaar) 25 mg tablet Indications:Ischemic cardiomyopathy,Primary hypertensionTake 1 tablet (25 mg) by mouth once daily. 90 tablet ctive Ozempic 0.25 mg or 0.5 mg (2 mg/3 mL) pen injector Inject 0.5 mg under the skin 1 (one) time per week.5Active BD Ultra-Fine Micro Pen Needle 32 gauge x 1/4 needle 5Active FreeStyle Sarah 2 Sensor kit USE DIRECTED to check BLOOD SUGAR 4-6 times DAILY5Active insulin glargine (Lantus U-100 Insulin) 100 unit/mL injection Inject under the skin once every 24 hours. Take as directed per insulin instructions.Active amiodarone (Pacerone) 200 mg tablet Indications:Paroxysmal atrial fibrillation (Multi)Take 1 tablet (200 mg) by mouth once daily. 90 tablet ctive hyoscyamine 0.125 mg SL tablet Discontinued(Therapy completed) Active Problems ProblemNoted DateDiagnosed DateMechanical complication of implantable cardioverter-defibrillator (ICD)06/20/2024Long term (current) use of nffhwhzzamvnby79/24/2024 Assessment & Plan (01/17/2025 8:30 AM EDT): [id number] 7 chronically anticoagulated Coumadin DOACs cost prohibitive Assessment & Plan (10/06/2023 8:34 AM EDT): [id number] 7 chronically anticoagulated Coumadin DOACs cost prohibitive Assessment & Plan (09/14/2023 9:34 AM EDT): [id number] 7 chronically anticoagulated Coumadin DOACs cost prohibitive COPD (chronic obstructive pulmonary disease)07/13/2023MI 32.0-32.9,adult 05/21/2023 Assessment & Plan (10/06/2023 8:34 AM EDT): Reviewed the merits of healthy lifestyle choices on overall cardiovascular health. Assessment & Plan (09/14/2023 9:34 AM EDT): Reviewed the merits of healthy lifestyle choices on overall cardiovascular health. Encounter for medication review and higimioaug09/01/2024Encounter to discuss treatment jwmyqcq1105/21/2023iventricular ICD (implantable cardioverter- defibrillator) in place01/12/2023 Assessment & Plan (01/17/2025 8:29 AM EDT): Jan 07, 2023: Fragoso DDHFA 500Q biV ICD June 2024 device interrogation BiV paced 98% Assessment & Plan (10/06/2023 8:33 AM EDT): Jan 07, 2023: Fragoso DDHFA 500Q biV ICD March 2023 device interrogation BiV paced 98% Assessment & Plan (09/14/2023 9:31 AM EDT): Jan 07, 2023: Fragoso DDHFA 500Q biV ICD March 2023 device interrogation BiV paced 98% Assessment & Plan (01/13/2023 8:52 AM EDT): Jan 07, 2023: Fragoso DDHFA 500Q biV ICD BMI 33.0-33.9,adult01/12/2023 Assessment & Plan (01/17/2025 8:30 AM EDT): Reviewed the merits of healthy lifestyle choices on overall cardiovascular health. Assessment & Plan (01/13/2023 8:55 AM EDT): Reviewed the merits of healthy lifestyle choices on overall cardiovascular health. Current every day vdcchx6501/09/2023 Assessment & Plan (01/16/2025 9:50 AM EDT): 1 pack per day 'working on quitting' No benefit nicoderm patches Continued every day tobacco use. Have reviewed the negative cardiovascular impact of nicotine. Continues to decline pharmacological assistance. Assessment & Plan (10/05/2023 1:57 PM EDT): [...] decline pharmacological assistance. 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 SUPERVISOR RCA and SVG-RCA RAMIREZ-LAD patent Sequential free NJIB-rifckafo-QE7 patent Current daily activity at 4 MET Assessment & Plan (10/06/2023 8:34 AM EDT): 2022 cardiac cath Newly occluded pAV CX/dCX/OM2 FEED INSPECTION SUPERVISOR RCA and SVG-RCA RAMIREZ-LAD patent Sequential free ZXXI-ogqcewgo-GY6 patent Current daily activity at 4 MET Assessment & Plan (09/14/2023 9:32 AM EDT): 2022 cardiac cath Newly occluded pAV CX/dCX/OM2 FEED INSPECTION SUPERVISOR RCA and SVG-RCA RAMIREZ-LAD patent Sequential free BXPF-qojuekyq-JY7 patent Current daily activity at 4 METS Has noted some increasing dyspnea on exertion Will add long-acting nitrates Assessment & Plan (01/13/2023 8:56 AM EDT): 2022 cardiac cath Newly occluded pAV CX/dCX/OM2 FEED INSPECTION SUPERVISOR RCA and SVG-RCA RAMIREZ-LAD patent Sequential free ICUD-igykgwgm-ZK4 patent Divgvyji50/11/2023oronary stent rqcguadlw97/11/2023iabetes enxjtwzd38/11/2023 Assessment & Plan (01/17/2025 8:30 AM EDT): On ARB/statin Unknown hemoglobin A1c Assessment & Plan (09/14/2023 9:34 AM EDT): On ARB/statin Reports most recent hemoglobin A1c 9.6 GERD (gastroesophageal reflux disease)12/30/2022H/O sick sinus syndrome 12/30/2022History of CVA (cerebrovascular accident)12/30/2022Hyperlipidemia 12/30/2022 Assessment & Plan (01/17/2025 8:29 AM EDT): High intensity statin June 2024 HDL 24, LDL 31 Assessment & Plan (10/06/2023 8:34 AM EDT): Today statin Assessment & Plan (09/14/2023 9:32 AM EDT): High intensity statin Reports had labs through his PCP earlier this year, will need to obtain Plpmqwnrvweb21/11/2023 Assessment & Plan (01/17/2025 8:29 AM EDT): Optimal in office Assessment & Plan (09/14/2023 9:32 AM EDT): Optimal in office Ischemic pbidirbtxuejaw51/11/2023 Assessment & Plan (01/16/2025 9:51 AM EDT): DICM HFrEF 30-35% May 2023 TTE FC 2B Stage C GDMT: Toprol Entresto: unable to tolerate d/t hypotension Cozaar Aldactone: prior hyperkalemia, BP too low Jardiance: insurance would not cover Has BiV ICD May 2023 BiV optimization June 2024 device interrogation BiV paced 98% Assessment & Plan (10/06/2023 8:33 AM EDT): [...] Jardiance: insurance would not cover Paroxysmal atrial eooijebqxhvk86/11/2023 Assessment & Plan (01/17/2025 8:29 AM EDT): Maintaining sinus rhythm/AV paced on amiodarone Surveillance testing completed June 2024 CHADS VASc 7 anticoagulated on Coumadin Assessment & Plan (10/06/2023 8:34 AM EDT): [...] 2022 CHADS VASc 7 anticoagulated on Coumadin RBBB12/30/2022S/P CABG x Sleep apnea12/30/2022Status post angioplasty 12/30/2022High risk medication use12/30/2022 Assessment & Plan (01/17/2025 8:28 AM EDT): Amiodarone EKG in office maintaining sinus rhythm/AV paced, QTc 508 on amiodarone 200 mg daily. Surveillance testing completed June 2024 Assessment & Plan (09/14/2023 9:33 AM EDT): Amiodarone EKG in office maintaining sinus rhythm/AV paced, QTc 462 on amiodarone 200 mg daily. Surveillance testing completed March 2023 Congestive heart kdfriek4412/30/2022LBBB (left bundle branch block)12/30/2022 Dizziness and sgyigjnhz71/20/2013 Resolved Problems ProblemNoted DateDiagnosed DateResolved DateCardiac pacemaker in situ12/30/2022 05/21/2023hronotropic incompetence with sinus node nmzoirlcipj54/11/2023 01/12/2024Tobacco use Encounters DateTypeDepartmentCare TlezFcnjxuzklso41/28/2025 9:30 AM EDTOffice Visit [facility] [address] [facility] [address] [place] [address] Herlinda Velazquez, GUARD RANGE-DIFFERENTIAL REPAIRER High risk medication use (Primary Dx); 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[place] heart without angina pectoris; Paroxysmal atrial fibrillation (Multi); 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 (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) use of anticoagulants; Ischemic cardiomyopathy; Biventricular ICD (implantable cardioverter-defibrillator) in place; Mixed hyperlipidemia; Primary hypertension; BMI 33.0-33.9,adult; Other specified diabetes mellitus without complication, with long-term current use of insulin (Multi); Current every day smoker Discharge Disposition: Home01/16/20254450Ghhaww65/22/2025Orders Only [facility] [address] [place] [address] Jesus Posey DO 11/30/2024Scanned Document [facility] [address] [place] [phone] Scanning, Generic Provider from Last 3 Months Immunizations ImmunizationAdministration DatesNext DueFlu vaccine, trivalent, preservative free, age 6 months and greater (Fluarix/Fluzone/Flulaval)01/07/2015Influenza, Seasonal, Quadrivalent, Tcxftidmgr51/02/2022Influenza, Vjvghlhmxlv70/01/2019, 12/20/2017,12/21/2016,12/20/2014,12/22/2013,03/22/2011,03/22/2010,03/22/2009, 03/22/2008Influenza, seasonal, sjegvhcbyt84/24/2025,12/21/2023,03/22/2019, 12/09/2016,01/23/2013Pneumococcal conjugate vaccine, 13-valent (PREVNAR 13) 12/20/2017,01/07/2015Pneumococcal polysaccharide vaccine, 23-valent, age 2 years and older (PNEUMOVAX 23)02/27/2022,03/22/2018Tdap vaccine, age 7 year and older (BOOSTRIX, ADACEL)05/31/2017 Family History Medical HistoryRelationNameCommentsCancerBrotherDalePancreatic cancerBrotherDale Heart attackFatherGlennBone cancerMotherWinonaCancerMotherWinonaCancerSister Heart attackSisterOvarian cancerSisterRelationNameStatusCommentsBrotherDale DeceasedFatherGlennDeceasedMotherWinonaDeceasedSisterDeceased Social History Tobacco UseTypesPacks/DayYears UsedDateSmoking Tobacco: Every FrlNrnsihgztz763 Smokeless Tobacco: Never Tobacco Cessation:Ready to Q uit: No; Counseling Given: Yes Alcohol UseStandard Drinks/WeekCommentsYes2 (1 standard drink = 0.6 oz pure alcohol)occasssionalSex and Gender InformationValueDate RecordedSex Assigned at LetspGqit14/21/2023 11:58 AM EDTLegal HwsQlvw92/26/2022 8:00 PM ESTGender SietgtchDhri10/21/2023 11:58 AM EDTSexual OrientationNot on file Last Filed Vital Signs Vital SignReadingTime TakenCommentsBlood Gbmselsh690/6001/16/2025 9:29 AM EDT Gbjul052901/16/2025 9:29 AM HFYPrhqmwoulww19.7 ??C (98 ??F)01/12/2023 4:22 PM EDT Respiratory Rerk3642 2:15 PM EDTOxygen Waovskrlav46%01/07/2023 2:15 PM EDTInhaled Oxygen Concentration--Rsqvqo014 kg (228 lb)01/16/2025 9:29 AM EDT Mvylgh371.3 cm (5' 9 )01/16/2025 9:29 AM EDTBody Mass Index33.6701/16/2025 9:29 AM EDT Plan of Treatment DateTypeDepartmentCare Team (Latest Contact Info)Izamktcsqeq47/07/2026 1:20 PM EDTAppointment [facility] [address] [place] [address] 06/26/2025 2:00 PM EDTOffice Visit [facility] [address] [facility] [address] [place] [phone] Carmen Alvarez MD [address] [facility] Medical Office [facility], [facility] [address] [place] [address] 07/17/2025 1:50 PM EDTOffice Visit [facility] [address] [facility] [address] [place] [address] Jesus Posey, DO [address] [facility] [address] [place] [address] 07/18/2025 9:50 AM EDTOffice Visit [facility] [address] [place] [address] [address] [place] [address] Jesus Posey, DO [address] [facility] [address], [address] [place] [address] Health MaintenanceDue DateLast DoneCommentsCT Avaneuzdinlb1957Colonoscopy 1957Colorectal Cancer Fylommgfx1957Diabetes: Urine Protein Screening 1955FIT-DNA (Cologuard)1955FIT1955 0990Jflvirqotoljg1957TSH Level1957MMR Vaccines (1 of 1 - Standard series)1958Hepatitis C Rrgowrqop73/13/1975Lung Cancer Klpjmcmpl77/13/2007PSA Prostate Cancer Screening 2007RSV High Risk: (Elderly (60+) or Population) (1 - Risk 50-74 years 1-dose series)2007Zoster Vaccines (1 of 2)2007Diabetes: Hemoglobin A1CLipid Panel, 09/03/2017, 08/16/2009bdominal Aortic Aneurysm (AAA) Dntyekmjh16/13/2022Creatinine Level , 09/16/2017, 09/15/2017, Additional history existsPotassium Level, 09/16/2017, 09/15/2017, Additional history exists Medicare Annual Wellness Visit (AWV)505/, 07/07/2022 Arnasjqxzjugyf57/04/202506/06/2023, 10/28/2022, 10/28/2022, Additional history existsCOVID-19 Vaccine ( - 2024- season)2024Diabetes: Retinopathy Feswlgpxl13/606/4DTaP/Tdap/Td Vaccines (2 - Td or Tdap)06/01/2027 05/31/2017, 05/31/2017, 05/31/2017, Additional history existsPneumococcal XynjetuKuhgnsgib93/09/2022, 12/31/2020, 12/29/2020, Additional history exists Welcome to Medicare YalgkFwggxykbxbas00/13/2024, 07/07/2022Influenza Vaccine Nsuixfajj12/24/2025, 12/04/2024, 2024, Additional history existsHIB VaccinesAged OutNo longer eligible based on patient's age to complete this topic HPV VaccinesAged OutNo longer eligible based on patient's age to complete this topicHepatitis A VaccinesAged OutNo longer eligible based on patient's age to complete this topicHepatitis B VaccinesAged OutNo longer eligible based on patient's age to complete this topicIPV VaccinesAged OutNo longer eligible based on patient's age to complete this topicMeningococcal VaccineAged OutNo longer eligible based on patient's age to complete this topicRotavirus VaccinesAged Out No longer eligible based on patient's age to complete this topic Medical Devices ImplantedTypeAreaManufacturerDevice IdentifierShelf Expiration DateModel / Serial / LotCardiac PacemakerCardiac PacemakerLeft: ChestDurata T, Active Single Coil, Df4, 65cm - [id number] Implanted:Qty: 1 on 01/07/2023 by Carmen Alvarez MD at [facility] Cardiac PacemakerLeft: ChestST TOPHER [id number] / [id number] / [id number] holly Mdl 6250v, 45cm - [id number] Implanted:Qty: 1 on 01/07/2023 by Carmen Alvarez MD at [facility] Cardiac PacemakerLeft: ChestMEDTRONIC [id number] / / [id number] Lead, Quartet 86cm, Model 1458q Lv, Multi Site, Ventricular - [id number] Implanted:Qty: 1 on 01/07/2023 by Carmen Alvarez MD at [facility] Cardiac PacemakerLeft: ChestST TOPHER [id number] / [id number] / [id number], Security Messenger-D, Hanalei Hf - [id number] Implanted:Qty: 1 on 01/07/2023 by Carmen Alvarez MD at [facility] Cardiac PacemakerLeft: ChestST TOPHER [id number] / [id number] / [id number], Clayton Ii - [id number] Implanted:Qty: 1 on 01/07/2023 by Carmen Alvarez MD at [facility] Heart ValveMEDTRONIC [id number] / / [id number] Procedures Procedure NamePriorityDate/TimeAssociated DiagnosisCommentsECG 12-LEADRoutine 01/16/2025 9:30 AM EDT High risk medication use XR CHEST 2 VIEWS01/10/2025 5:09 PM EDT TRANSTHORACIC ECHO (TTE) ANOMURDXasnugq64/04/2024 1:45 PM EDT Shortness of breath BASIC METABOLIC PWJTRGETA29/19/2023 7:59 AM EDT LIPID FHFVVWeucqoz59/17/2018 12:34 AM EDT HEMOGLOBIN H6AEqqfwqh31/16/2018 5:20 AM EDT from Last 3 Months or Most Recently Relevant to Health Maintenance Results * ECG 12 Lead (01/16/2025 9:30 AM EDT)Specimen (Source)Anatomical Location / LateralityCollection Method / VolumeCollection TimeReceived Time Narrative CPACS - 01/17/2025 1:03 PM EDT AV sequential pacemaker, PVC, abnormal ECG Authorizing ProviderResult TypeResult StatusJanesekaterina Velazquez GUARD RANGE-CNPECG ORDERABLES Final ResultPerforming OrganizationAddressCity/State/ZIP CodePhone Number CPACS * XR chest 2 views (01/10/2025 5:09 PM EDT)Anatomical RegionLateralityModality Thoracic, ChestRadiographic ImagingSpecimen (Source)Anatomical Location / LateralityCollection Method / VolumeCollection TimeReceived Time01/10/2025 5:09 PM EDT Narrative 01/10/2025 5:12 PM EDT [facility] [place] ?[address] ? [place] [address] ?XRay Report ? Signed ? Patient: Lesley Rod ?MR#: [id number] ?? [id number] ? : 1955 ?Acct:[id number] ? Age/Sex: 69 / M ?ADM Date: 01/10/25 ? Loc: XD ?Room: ?Type: REG CLI ?? Attending Dr: Franck Posey DO ?? Copies to: Franck Posey DO ? Ordering Provider: Franck Posey DO ?? Date of Service: 01/10/25 ?? XR/XR chest 2V*: I48.0 ? Plain film chest 2 view ? HISTORY: High risk medication usage ? COMPARISON: 07/18/2024 ? FINDINGS: ? SUPPORT DEVICES: ??None ? POSTSURGICAL CHANGES: Cardiac device intact. ??CABG. ? HEART: ??Within normal limits ? PULMONARY CLAUDIA: Within normal limits ? MEDIASTINUM: Unremarkable ? LUNGS AND PLEURA: ??No acute lung process, pleural effusion or pneumothorax identified. ? BONY STRUCTURES: ??Intact ? ADDITIONAL FINDINGS ??None ? XR/XR chest 2V* ?? IMPRESSION: ??No acute process. ??Intact cardiac device. ? Impression dictated by: Sridhar Gatica M.D. ??01/10/2025 5:10 PM ? Dictation Location: RADIO-PC-16 ? Transcribed By: ? PWS ?01/10/25 1710 ? Dictated By: ?Sridhar Gatica DO ?01/10/25 1709 ? Signed By: <Electronically signed by Sridhar Gatica, DO in OV> ? 01/10/25 1710 Authorizing ProviderResult TypeResult StatusWilliam David Posey DOIMG XR PROCEDURESFinal Result * TRANSTHORACIC ECHO (TTE) LIMITED (08/24/2023 1:45 PM EDT)ComponentValueRef RangeTest MethodAnalysis TimePerformed AtPathologist SignatureAV mn grad3.0 mmHgSYNGOAV pk vel1.02m/sSYNGOLV Biplane EF39%SYNGOLVOT diam2.00cmSYNGOMV E/A ratio0.68SYNGOMV avg E/e' ratio7.96ITFYLUOBV08.6muZcGSXZSQQMSi7.10cmSYNGO Aortic Valve Area by Continuity of Peak Velocity2.81qs0LAJKHKH pk grad4.2mmHg SYNGOAortic Valve Area by Continuity of VTI1.43ag3SSAZBBJ A4C EF35.5SYNGO Specimen (Source)Anatomical Location / LateralityCollection Method / Volume Collection TimeReceived Time08/24/2023 12:27 PM EDT Narrative SYNGO - 08/26/2023 11:41 AM EDT ? [address], [address] [facility], [place], [place] [address] ? TRANSTHORACIC ECHOCARDIOGRAM REPORT Patient Name: ?LESLEY ROD ?Reading Physician: ?[id number] Errol ?Mayo ALVAREZ Study Date: ?08/24/2023 ? Ordering Provider: ?[id number] CARMEN Thomas LELAND MRN/PID: ? [id number] ? Fellow: Accession#: ?[id number] ? Nurse: Date of /Age: 11 1955 / 68 ?Quality Control Coordinator: ?Lesley Zuniga ? years Gender: ?M ?Additional Staff: Height: ?175.26 cm ?Admit Date: ? 08/24/2023 Weight: ?109.32 kg ?Admission Status: ? Outpatient BSA / BMI: ? 2.24 m2 / 35.59 ?Department Location: ??[facility] ? kg/m2 ?Johny Koroma Blood Pressure: 120 /60 mmHg Study Type: ?TRANSTHORACIC ECHO (TTE) COMPLETE Diagnosis/ICD: Shortness of breath-R06.02 Indication: ?SOB CPT Codes: ? Echo Limited-81219 Patient History: Smoker: ?Current. Diabetes: ?Yes Pacer/Defib: ? AICD Pertinent History: CHF, COPD, HTN, Hyperlipidemia and SOB, Stent, SSS, CVA, ? RBBB, CABG, High risk med use, LBBB. Study Detail: The following Echo studies were performed: 2D, M-Mode, Doppler and ?color flow. The patient was awake. PHYSICIAN INTERPRETATION: [...] visualized. There is no indication of pulmonic valveregurgitation. Pericardium: There is a trivial pericardial effusion. Aorta: The aortic root is normal. CONCLUSIONS: 1. Left ventricular systolic function is severely decreased with a 30-35% estimated ejection fraction. 2. Poorly visualized anatomical structures due to suboptimal image quality. 3. Abnormal septal motion consistent with RV pacemaker. 4. AV & VV optimization study with final settings of: ?LV to RV by 40 ms, paced AV [...] regional variations. QUANTITATIVE DATA SUMMARY: 2D MEASUREMENTS: ? Normal Ranges: Ao Root d: ? 3.20 cm ?? (2.0-3.7cm) LAs: ? 3.30 cm ?? (2.7-4.0cm) RVIDd: ? 3.90 cm ?? (0.9-3.6cm) IVSd: ?1.10 cm ?? (0.6-1.1cm) LVPWd: ? 1.10 cm ?? (0.6-1.1cm) LVIDd: ? 5.10 cm ?? (3.9-5.9cm) LVIDs: ? 4.10 cm LV Mass Index: 95.7 g/m2 LV % FS ?19.6 % LA VOLUME: ?Normal Ranges: LA Area A4C: ? 20.8 cm2 LA Area A2C: ? 17.7 cm2 LA Volume Index: 28.1 ml/m2 LA Vol A4C: ?60.0 ml LA Vol A2C: ?54.0 ml LA Vol BP: ? 63.0 ml LV SYSTOLIC FUNCTION BY 2D PLANIMETRY (MOD): ?Normal Ranges: EF-A4C View: 35.5 % (>=55%) EF-A2C View: 35.3 % EF-Biplane: ??38.5 % LV DIASTOLIC FUNCTION: ?Normal Ranges: MV Peak E: ?0.53 m/s ?(0.7-1.2 m/s) MV Peak A: ?0.78 m/s ?(0.42-0.7 m/s) E/A Ratio: ?0.68 ?(1.0-2.2) MV lateral e' ? 0.07 m/s MV medial e' ?0.05 m/s MV A Dur: ? 180.00 msec E/e' Ratio: 7.70 (<8.0) PulmV Sys Wiliam: ?46.80 cm/s PulmV Clements Wiliam: ?? 40.70 cm/s PulmV S/D Wiliam: ?1.10 PulmV A Revs Wiliam: 32.00 cm/s PulmV A Revs Dur: 113.00 msec MITRAL VALVE: ? Normal Ranges: MV Vmax: 0.74 m/s (<=1.3m/s) MV peak P.2 mmHg (<5mmHg) MV mean P.0 mmHg (<48mmHg) MV DT: ?331 msec (150-240msec) AORTIC VALVE: ?Normal Ranges: AoV Vmax: 1.02 m/s (<=1.7m/s) AoV Peak P.2 mmHg (<20mmHg) AoV Mean PG: ? 3.0 mmHg (1.7-11.5mmHg) LVOT Max Wiliam: 0.80 m/s (<=1.1m/s) AoV VTI: ? 22.60 cm (18-25cm) LVOT VTI: ?13.90 cm LVOT Diameter: ? 2.00 cm ??(1.8-2.4cm) AoV Area, VTI: ? 1.93 cm2 (2.5-5.5cm2) AoV Area,Vmax: ? 2.45 cm2 (2.5-4.5cm2) AoV Dimensionless Index: 0.62 TRICUSPID VALVE/RVSP: ?Normal Ranges: Peak TR Velocity: 1.53 m/s Est. RA Pressure: 3 mmHg RV Syst Pressure: 12.4 mmHg (< 30mmHg) PULMONIC VALVE: ?Normal Ranges: PV Accel Time: 95 msec (>120ms) PV Max Wiliam: ?0.7 m/s ??(0.6-0.9m/s) PV Max PG: ? 1.9 mmHg Pulmonary Veins: PulmV A Revs Dur: 113.00 msec PulmV A Revs Wiliam: 32.00 cm/s PulmV Clements Wiliam: ?? 40.70 cm/s PulmV S/D Wiliam: ?1.10 PulmV Sys Wiliam: ?46.80 cm/s [id number] Errol Huber MD Electronically signed on 08/26/2023 at 11:41:41 AM Final Procedure Note Errol Huber MD - [facility] [address] [place] [address], [address], [place] [address] TRANSTHORACIC ECHOCARDIOGRAM REPORT Patient Name: LESLEY ROD Reading Physician: [id number] Huber MD Study Date: 08/24/2023 Ordering Provider: [id number] CARMEN HACKETT MRN/PID: [id number] Fellow: Nurse: Date of /Age: 11 1955 Quality Control Coordinator: Himanshu gordon Gender: M Additional Staff: Height: 175.26 cm Admit Date: 08/24/2023 Weight: 109.32 kg Admission Status: Outpatient BSA / BMI: 2.24 m2 / 35.59 Department Location: [facility] kg/[address] Blood Pressure: 120 /60 mmHg Study Type: TRANSTHORACIC ECHO (TTE) COMPLETE Diagnosis/ICD: Shortness of breath-R06.02 Indication: SOB CPT Codes: Echo Limited-30933 Patient History: Smoker: Current. Diabetes: Yes Pacer/Defib: [...] Wiliam: 1.10 PulmV Sys Wiliam: 46.80 cm/s [id number] Errol Huber MD Electronically signed on 08/26/2023 at 11:41:41 AM Final Authorizing ProviderResult TypeResult StatusCarmen Alvarez MDCV ECHO PROCEDURES Final ResultPerforming OrganizationAddressCity/State/ZIP CodePhone Number SYNGO * (ABNORMAL) Basic Metabolic Panel (01/07/2023 7:59 AM EDT)ComponentValueRef RangeTest MethodAnalysis TimePerformed AtPathologist HohuaqlpxZwwcfey747(H)74 - 99 mg/dL LAB CHEMISTRY METHOD 01/07/2023 8:46 AM [facility] EVMLkhvzu403(L)136 - 145 mmol/L LAB CHEMISTRY METHOD 01/07/2023 8:46 AM [facility] LABPotassium4.63.5 - 5.3 mmol/L LAB CHEMISTRY METHOD 01/07/2023 8:46 AM [facility] ZZSRrqngqdp86319 - 107 mmol/L LAB CHEMISTRY METHOD 01/07/2023 8:46 AM [facility] DOIDgvyzdnavfs5017 - 32 mmol/L LAB CHEMISTRY METHOD 01/07/2023 8:46 AM [facility] LABAnion Bvl5398 - 20 mmol/L LAB CHEMISTRY METHOD 01/07/2023 8:46 AM [facility] LABUrea Ntlqnjmf76(H)6 - 23 mg/dL LAB CHEMISTRY METHOD 01/07/2023 8:46 AM [facility] LABCreatinine1.47(H)0.50 - 1.30 mg/dL LAB CHEMISTRY METHOD 01/07/2023 8:46 AM [facility] UVZaOXC48(L)>60 mL/min/1.73m*2 LAB CHEMISTRY METHOD 01/07/2023 8:46 AM [facility] LABComment: Calculations of estimated GFR are performed using the 2020 CKD-EPI Study Refit equation without therace variable for the IDMS-Traceable creatinine methods. https://jasn.asnjournals.org/content//ASN.3736185629 Calcium9.08.6 - 10.3 mg/dL LAB CHEMISTRY METHOD 01/07/2023 8:46 AM [facility] LABSpecimen (Source)Anatomical Location / LateralityCollection Method / VolumeCollection TimeReceived TimeBlood Venous blood specimen / UnknownVenipuncture / Lypdcpc1101/07/2023 7:59 AM EDT 01/07/2023 8:23 AM EDT Narrative Authorizing ProviderResult TypeResult StatusHolli Jaeger GUARD RANGE-CNPLAB BLOOD ORDERABLESFinal ResultPerforming OrganizationAddressCity/State/ZIP CodePhone Number [facility] [address] [place] [address] * (ABNORMAL) Lipid Panel (09/05/2017 12:34 AM EDT)ComponentValueRef RangeTest MethodAnalysis TimePerformed AtPathologist NrvvpjdqeSznjidujopr8170 - 199 mg/dL[facility] LABComment: . ?AGE ?DESIRABLE ?? BORDERLINE HIGH ?? HIGH 0-19 Y 0 - 169 170 - 199 >/= 200 20-24 Y 0 - 189 190 - 224 >/= 225 >24 Y 0 - 199 200 - 239 >/= 240 All ranges are based on fasting samples. Specific therapeutic targets will vary based on patient-specific cardiac risk. . Pediatric guidelines reference:Pediatrics 2011, 128(S5). Adult guidelines reference: NCEP ATPIII Guidelines, ??ENEIDA 2001, 258:2486-97 . Venipuncture immediately after or during the administration of Metamizole may lead to falsely low results. Testing should be performed immediately prior to Metamizole dosing. HDL27.9(A)mg/dLIND[facility] LABComment: . ?AGE ?VERY LOW ?? LOW ? NORMAL ?HIGH ?? 0-19 Y < 35 < 40 40-45 ---- 20-24 Y ---- < 40 >45 ---- >24 Y ---- < 40 40-60 >60 . Cholesterol/HDL Ratio5.2(A)[facility] LABComment: REF VALUES DESIRABLE < 3.4 HIGH RISK > 5.0 CZL717 - 99 mg/dLIND[facility] LABComment: . ? NEAR ?BORD ?AGE ?DESIRABLE ??OPTIMAL ?HIGH ? HIGH ? VERY HIGH 0-19 Y 0 - 109 --- 110-129 >/= 130 ---- 20-24 Y 0 - 119 --- 120-159 >/= 160 ---- >24 Y 0 - 99 100-129 130-159 160-189 >/=190 . ACYT371 - 40 mg/dL[facility] EKNUhiemzlzeyrcl279(H)0 - 149 mg/dL[facility] LABComment: . ?AGE ?DESIRABLE ?? BORDERLINE HIGH ?? HIGH ? VERY HIGH 0 D-90 D ?19 - 174 ? ---- ? ---- ?---- 91 D- 9 Y 0 - 74 [...] be performed immediately prior to Metamizole dosing. Specimen (Source)Anatomical Location / LateralityCollection Method / Volume Collection TimeReceived Time09/05/2017 12:34 AM EDT09/05/2017 6:04 AM EDT Narrative Authorizing ProviderResult TypeResult StatusDiana Noguera GUARD RANGE-CNPLAB BLOOD ORDERABLESFinal ResultPerforming OrganizationAddressCity/State/ZIP CodePhone Number [facility] * Hemoglobin A1C (09/04/2017 5:20 AM EDT)ComponentValueRef RangeTest Method Analysis TimePerformed AtPathologist SignatureHemoglobin A1C9.0%[facility] Comment: ? Diagnosis of Diabetes-Adults Non-Diabetic: < or = 5.6% Increased risk for developing diabetes: 5.7-6.4% Diagnostic of diabetes: > or = 6.5% . ? Monitoring of Diabetes ?Age (y) ? Therapeutic Goal (%) Adults: >18 <7.0 Pediatrics: 13-18 <7.5 7-12 <8.0 ? 0- 6 ?7.5-8.5 [place] [employer]. Diabetes Care 33(S1), Mar 2009. Estimated Average Hwlnzut838JX/DLINDIA[facility] REG[facility] LABSpecimen (Source)Anatomical Location / LateralityCollection Method / VolumeCollection TimeReceived Time09/04/2017 5:20 AM EDT09/04/2017 5:58 AM EDT Narrative Authorizing ProviderResult TypeResult StatusFanarciso OLVERA BLOOD ORDERABLES Final ResultPerforming OrganizationAddressCity/State/ZIP CodePhone Number [facility] from Last 3 Months or Most Recently Relevant to Health Maintenance Insurance Advance Directives For more information, please contact: [phone] (Available ) * Full Code (Latest Code Status on File) Date ActivatedDate LmjnopoudxjQfziejfo38/19/2023 7:45 AM01/07/2023 7:02 PM QuestionAnswerCommentsPlan of Care:* Code Status Discussion Not Completed Decision Maker:* Provider Rationale:* Patient condition does not warrant discussion Care Teams Team MemberRelationshipSpecialtyStart DateEnd Date Lee Mena DO [address] [facility] [place] [address] PCP - GeneralInternal Medicine10/05/23 Carmen Alvarez MD [address], [facility] [address] [place] [address] CardiologistElectrophysiology05/21/23
--- OUTSIDE RECORDS SUMMARY | 2025-02-02 09:00 | XMS_ITS | Clinical Summary ---
Author Organization [facility] Address [address] [place] [address] Care Team Providers Care Candy Maker Name Role Phone Unavailable Primary Care Provider Unavailabl e Source Comments The following information is NOT included in Care Everywhere downloads:Psychiatric notes, ECG results, Cardiac Rehab notes, Pulmonary Function notes, data from [employer] (includes but not limited toPregnancy data,audiograms, eye exams, pre-surgical evaluation notes, well-child exam data).[facility] Allergies Active AllergyReactionsCriticalityNoted DateCommentsNo Known Drug Allergies 08/16/2009 Medications MedicationSigDispense QuantityRefillsLast FilledStart DateEnd DateStatus aspirin 325 MG tablet Take 1 Tab by mouth daily. 30 ctive clopidogrel (PLAVIX) 75 MG tablet Take 1 Tab by mouth daily. 30 ctive niacin (NIASPAN) 500 MG CR tablet Take 1 Tab by mouth at bedtime. 30 ctive rosuvastatin (CRESTOR) 20 MG tablet Take 1 Tab by mouth daily. 30 ctive metoprolol (LOPRESSOR) 25 MG tablet Take 1 Tab by mouth 2 times daily. 60 ctive lisinopril (ZESTRIL) 5 MG tablet Take 1 Tab by mouth daily. 30 ctive Active Problems ProblemNoted DateDiagnosed DateAcute myocardial infarction of inferior wall, initial episode of care08/16/2009 Overview (06/29/2018): Acute OK inferior first episode care CAD (coronary artery disease), lumbee coronary ffiadp7908/16/2009Mixed tvyglvdppupvfq60/28/2010Tobacco use veppkhpy44/28/2010H/O: CVA08/16/2009 Family History Medical HistoryRelationNameCommentsCoronary Artery DiseaseFatherRelationName StatusCommentsFather Social History Tobacco UseTypesPacks/DayYears UsedDateSmoking Tobacco: Every IziDjdfefhefj275 Alcohol UseStandard Drinks/WeekCommentsYes0 (1 standard drink = 0.6 oz pure alcohol)OccasionallySubstance UseTypesUse/WeekCommentsNoSex and Gender InformationValueDate RecordedSex Assigned at BirthNot on fileLegal SexMale 01/24/2012 1:03 PM ESTGender IdentityNot on fileSexual OrientationNot on file Last Filed Vital Signs Vital SignReadingTime TakenCommentsBlood Blznojzz290/7908/18/2009 11:51 AM EDT Yvbvj807608/18/2009 11:51 AM ZZTSrmystdvdou22.2 ??C (97.2 ??F)08/18/2009 11:51 AM EDTRespiratory Ytdm628008/18/2009 11:51 AM EDTOxygen Ueeyaxjahj442%08/18/2009 11:51 AM EDTInhaled Oxygen Concentration--Jxkwdp018.8 kg (239 lb 13.8 oz) 08/18/2009 4:40 AM KXWXaytrn661.3 cm (5' 9 )08/15/2009 10:00 PM EDTBody Mass Index35.42008/15/2009 10:00 PM EDT Plan of Treatment Health MaintenanceDue DateLast TpmuYcmrvnafIjfkzwmqfhm1955Hepatitis C Lqywupci34/13/1975Tdap Kxoxtkl9902/01/1975Hepatitis A (HAV) Vaccine (optional start 19+ years)02/02/1976Pneumococcal Vaccine(s) (50+ yrs) (1 of 2 - PCV) 02/02/1976Tetanus (Td or Tdap) Yxinqhy8502/02/1976CRC Ivgybzmky38/13/2002Cologuard (Stool DNA)2002FIT2002Shingles (RZV) Vaccine (1 of 2)2007 Bjvyrmtbpwi37/28/Hepatitis B (HBV) Vaccine (optional start 60+ years)2017COVID-19 Vaccine (1 - 2024- season)2024Influenza Vaccine (#1)2024RSV vaccine (adult) (1 - 1-dose 75+ series)02/02/2032 Procedures Procedure NamePriorityDate/TimeAssociated DiagnosisCommentsFULL LIPID PROFILE Zjsiqyo6508/16/2009 4:37 AM EDT from Last 3 Months or Most Recently Relevant to Health Maintenance Results * (ABNORMAL) FULL LIPID PROFILE (08/16/2009 4:37 AM EDT)ComponentValueRef Range Test MethodAnalysis TimePerformed AtPathologist ZxfukzziyPeaqzfxfrgt461<181 mg/dL[facility] PATH[facility] FIENIKRCPBPugcuigjmdcmf167<151 mg/dLNOR-[facility] CLINICAL PATHOLOGY LABORATORYHDL Szueqaomubu23(L)>44 mg/dLNOR-[facility] CLINICAL PATHOLOGY LABORATORYNon-HDL Bpoquktchhp344<130 mg/dLNOR-[facility] LAB[facility]ORY Chol/HDL Ratio7.67[facility] CLINICAL PATHOLOGY LABORATORYLDL ihxeresiwug98<111 mg/dL [facility] CLINICAL PATHOLOGY LABORATORYLDL/HDL Ratio5.80(H)<3.57[facility] CLINICAL PATHOLOGY LABORATORYSpecimen (Source)Anatomical Location / Laterality Collection Method / VolumeCollection TimeReceived TimeBlood, venous lineBLOOD SPECIMEN / Mqtwncw2808/16/2009 4:37 AM EDT Narrative Authorizing ProviderResult TypeResult StatusMohamcam Kelsey MD98 GENERAL LAB Final ResultPerforming OrganizationAddressCity/State/ZIP CodePhone Number [facility] PATH[facility] LABORATORY [address] [place] [phone] from Last 3 Months or Most Recently Relevant to Health Maintenance Insurance MemberSubscriberPlan / Payer (Effective 2009-Present)Name:Kashif Quintero Relation to Subscriber:SelfName:Kashif Quintero Payer ID:Not on file Type:PPO Address: [address] [place] [id number]
--- OUTSIDE RECORDS SUMMARY | 2025-02-02 09:00 | XMS_ITS | Clinical Summary ---
Author Organization [facility] Address [address] [place] [address], [address] [place] [address] Care Team Providers Care Pheresis Nurse Name Role Phone Unavailable Primary Care Provider Unavailabl e Social History Tobacco UseTypesPacks/DayYears UsedDateSmoking Tobacco: Never AssessedSex and Gender InformationValueDate RecordedSex Assigned at BirthNot on fileLegal Sex Male05/01/2012 3:43 PM ESTGender IdentityNot on fileSexual OrientationNot on file Plan of Treatment Not on file
--- NOTE | 2025-02-02 09:12 | CT_ITS ---
The [address] [address] Patient Name: LESLEY QUINTERO MRN: [id number] date: 1955 Sex: M Assigned Patient Location: LAB Current Patient Location: LAB Accession/Order Number: [id number] Exam Date: 02/02/2025 09:50 Report Date: 02/02/2025 11:06 At the request of: ROCIO SEGOVIA DO Procedure: CT abdomen wo/w con CT ABDOMEN WITHOUT AND WITH INTRAVENOUS CONTRAST CLINICAL DATA: Family history of pancreatic cancer. COMPARISON: None Spiral images were obtained through the abdomen before and after intravenous administration of 100 mL of Omnipaque 300. Patient also received oral contrast. This CT exam was performed using one or more following dose reduction techniques: Automated exposure control, adjustment of the mA and/or kV according to patient size, or use of iterative reconstruction technique. Limited cuts through the lung bases show atelectasis or scarring. There is prior median sternotomy. There are small stones within the gallbladder extending into the neck. There is no pericholecystic inflammation. There is no significant biliary dilatation or choledocholithiasis. Mild fatty infiltration of the liver is suspected. No intrahepatic masses are seen. The pancreas is normal in size and contour. The pancreatic duct is visualized and is top normal in diameter. No pancreatic masses or peripancreatic inflammation are seen. There is minor adrenal limb thickening. There is mild perinephric fibrofatty stranding. No renal stones are seen precontrast. Following contrast administration, the renal nephrograms are symmetric. No hydronephrosis is identified. There are small renal cysts. There is mild atherosclerotic plaque at the aorta, proximal iliac and some of the visceral arteries. There are small retroperitoneal and mesenteric lymph nodes. No ascites is seen. The small bowel loops are normal caliber. There is moderate stool along the colon. There is subtle dextroscoliotic curvature and mild degenerative changes at the spine. CT/CT abdomen wo/w con IMPRESSION: CHOLELITHIASIS. SUSPECTED FATTY LIVER. NO SIGNIFICANT PANCREATIC ABNORMALITIES. RENAL CYSTS. NO ACUTE FINDINGS. Impression dictated by: Maya Isbell M.D. 02/02/2025 11:06 AM Dictation Location: [place] [address] Electronically authenticated by: [id number] Y Date: 02/02/2025 11:06
[2025-02-02 09:26] LABS: Estimated GFR (African America >60 (>=60 mL/min/1.73m^2); Estimated GFR (Non-African Ame 53 (>=60 mL/min/1.73m^2)
== END 2025-02-02 08:58 | disposition home or self-care (01) ==
LOC: LAB 08:57
PROVIDERS: Pathology Anatomic Pathology & Clinical Pathology; PCP Internal Medicine; Visit Provider Internal Medicine
DX: K80.20 Calculus of gallbladder without cholecystitis without obstruction (principal); Z80.0 Family history of malignant neoplasm of digestive organs; K76.0 Fatty (change of) liver, not elsewhere classified; N28.1 Cyst of kidney, acquired
CPT/HCPCS: 36415; 74170; 82565; Q9967

== ENCOUNTER 2025-02-19 09:26 | Outpatient (RCR) | payer MEDICARE, SELFPAY | END 2025-03-21 13:19 | disposition home or self-care (01) | LOC: MM 09:26 | PROVIDERS: PCP Internal Medicine; Visit Provider Internal Medicine | DX: Z51.81 Encounter for therapeutic drug level monitoring (principal); Z79.01 Long term (current) use of anticoagulants ==